=== PATIENT | female | born 1950 | race Caucasian/White ===

== ENCOUNTER → 2020-03-31 10:06 | Outpatient (BNVA) | payer MEDICARE, SELFPAY | PROVIDERS: PCP Physician Assistant; Visit Provider Family Medicine Adult Medicine | DX: M54.16 Radiculopathy, lumbar region (principal); M96.1 Postlaminectomy syndrome, not elsewhere classified; S46.011A Strain of muscle(s) and tendon(s) of the rotator cuff of right shoulder, initial encounter; Z79.891 Long term (current) use of opiate analgesic | CPT/HCPCS: 99212 ==

== ENCOUNTER 2020-04-12 09:23 | Outpatient (REF) | payer MEDICARE, SELFPAY ==
[2020-04-12 10:14] LABS: MANUAL DIFF FLAG NO
[2020-04-12 10:33] LABS: Basophils Percent Auto 0.4 % (0-2); Eosinophils Absolute Auto 0.1 X10*3/uL (0.0-0.4); Eosinophils Percent Auto 0.9 % (0-4); Hematocrit 42.7 % (37-47); Hemoglobin 13.9 g/dl (12.0-16.0); Imm Gran Abs Auto 0.03 X10*3/uL (0.00-0.03); Imm Gran Pct Auto 0.4 % (0.0-0.4); Lymphocytes Absolute Auto 1.8 X10*3/uL (1.2-4.9); Lymphocytes Percent Auto 22.2 % (20-40); Mean Corpuscular HGB Conc 32.6 g/dl (31.0-35.0); Mean Corpuscular Hemoglobin 31.2 pg (27.0-33.0); Mean Platelet Volume 10.5 fL (9.4-12.3); Monocytes Absolute Auto 0.6 X10*3/uL (0.1-1.2); Monocytes Percent Auto 7.5 % (2-11); Neutrophils Absolute Auto 5.6 X10*3/uL (2.0-8.3); Neutrophils Percent Auto 68.6 % (45-73); Platelet Count 365 X10*3/uL (160-400); Red Blood Count 4.45 X10*6/uL (4.20-5.50); Red Cell Distribution Width 13.6 % (11.0-16.0); White Blood Count 8.2 X10*3/uL (4.8-10.8)
[2020-04-12 10:47] LABS: Estimated Average Glucose 123 mg/dL; Hemoglobin A1c % 5.9 %
[2020-04-12 11:11] LABS: Alanine Aminotransferase 14 U/L (0-31); Albumin Level 4.2 g/dL (3.5-5.0); Alkaline Phosphatase 61 U/L (39-117); Anion Gap 14 (12-20); Aspartate Amino Transferase 15 U/L (5-31); Bilirubin Total 0.5 mg/dL (0.0-1.0); Blood Urea Nitrogen 25 mg/dL (9-16); Calcium 8.9 mg/dL (8.4-10.2); Carbon Dioxide 25 mmol/L (22-29); Chloride 107 mmol/L (96-108); Cholesterol 208 mg/dL; Estimated Glomerular Filt Rate 54; Glucose Fasting 104 mg/dL (60-99); HDL Cholesterol 78 mg/dL; LDL Cholesterol Calculated 113 mg/dl; Potassium 4.7 mmol/l (3.3-5.1); Sodium 141 mmol/L (135-145); Total Protein 7.1 g/dL (6.5-8.0); Triglycerides 88 mg/dL
[2020-04-12 11:13] LABS: TSH reflex Free T4 1.17 mIU/mL (0.32-4.0)
[2020-04-12 11:13] LABS: Creatinine Urine 128.05 mg/dL; Microalbum/Creatinine Ratio Ur 10.9 ug/mg cr
== END 2020-04-12 09:24 | disposition home or self-care (01) ==
LOC: HO.LAB 09:23
PROVIDERS: PCP Physician Assistant; Visit Provider Physician Assistant
DX: Z01.812 Encounter for preprocedural laboratory examination (principal); M51.16 Intervertebral disc disorders with radiculopathy, lumbar region; I10 Essential (primary) hypertension
CPT/HCPCS: 36415; 80053; 80061; 82043; 83036; 84443; 85025

== ENCOUNTER 2020-04-27 14:37 | Outpatient (REF) | payer MEDICARE, SELFPAY ==
--- NOTE | 2020-04-27 14:42 | MR_ITS ---
EXAMINATION: MR LUMBAR SPINE WITHOUT AND WITH CONTRAST CLINICAL INFORMATION: Lower back pain. Spinal surgery. Radiculopathy. COMPARISON: Lumbar spine radiographs from 04/18/2019. CT abdomen and pelvis from 02/24/2020. TECHNIQUE: MRI of the lumbar spine was obtained using routine sequences following the administration of 8 mL of Gadavist intravenous contrast. FINDINGS: Straightening of the normal lumbar lordosis. Minimal right convex curvature of the lumbar spine. Degenerative grade 1 anterolistheses of L2 on L3 and L3 on L4. Solid osseous fusion of L4 on L5. Moderate degenerative disc disease from T12-L4. Associated mixed Modic type discogenic endplate changes including Modic type I discogenic edema/enhancement from L1-L4 (worst at L3-L4). No additional suspicious marrow edema. Mild edema within the L3-L4 facets suggestive of degenerative stress reaction. No additional suspicious marrow edema/enhancement. The vertebral body heights are largely maintained. The conus medullaris terminates at the level of L1. The distal spinal cord is normal in appearance. No additional abnormal contrast enhancement. Postsurgical changes of the lower back. Moderate subcutaneous edema within the soft tissues of the lower back from T12-S1. No discrete fluid collection. Otherwise, no significant abnormalities of the paraspinal musculature. Limited evaluation of the intra-abdominal structures without significant abnormalities. The abdominal aorta is of normal contour and caliber. AXIAL SPINAL LEVELS: T12-L1: Moderate diffuse disc bulge. There is moderate bilateral facet joint arthropathy. There is mild bilateral neural foraminal stenosis. There is no overt spinal canal stenosis. L1-L2: Moderate diffuse disc bulge. There is moderate right and mild left facet joint arthropathy. There is moderate right and mild left neural foraminal stenosis. There is narrowing of the right greater than left subarticular zones with no overt spinal canal stenosis centrally. L2-L3: Moderate diffuse disc bulge eccentric to the left exacerbated by uncovering from anterolisthesis. There is severe bilateral facet joint arthropathy. There is mild bilateral neural foraminal stenosis. There is mild spinal canal stenosis. L3-L4: Moderate diffuse disc bulge exacerbated by uncovering from anterolisthesis. There is severe bilateral facet joint arthropathy. There is moderate left and mild right neural foraminal stenosis. There is narrowing of the left greater than right subarticular zones with no overt spinal canal stenosis centrally. L4-L5: Fused at this level. The facets are fused with mild hypertrophic change. There is mild to moderate bilateral neural foraminal stenosis. Posterior decompression. There is no spinal canal stenosis. L5-S1: Shallow diffuse disc bulge. There is severe bilateral facet joint arthropathy. There is moderate right and mild left neural foraminal stenosis. There is narrowing of the right greater than left subarticular zones with no overt spinal canal stenosis centrally. MR/MR lumbar spine wo/w con IMPRESSION: Changes of prior L4-L5 fusion with posterior decompression. 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 There is mild spinal canal stenosis at L2-L3. Otherwise, no overt spinal canal stenosis. Narrowings of the subarticular zones at L1-L2, L3-L4, and L5-S1. Mild to moderate neural foraminal stenosis at all lumbar levels. Mild degenerative stress reactive edema within the L3-L4 facets.
[2020-04-27 14:51] LABS: Blood Urea Nitrogen 19 mg/dL (9-16); Estimated Glomerular Filt Rate > 60
== END 2020-04-27 14:38 | disposition home or self-care (01) ==
LOC: HO.MRI 14:37
PROVIDERS: Visit Provider Physician Assistant
DX: M51.16 Intervertebral disc disorders with radiculopathy, lumbar region (principal); M96.1 Postlaminectomy syndrome, not elsewhere classified
CPT/HCPCS: 72158; 82565; 84520; A9585

== ENCOUNTER → 2020-05-24 14:23 | Outpatient (BNVA) | payer MEDICARE, SELFPAY | PROVIDERS: PCP Physician Assistant; Visit Provider Family Medicine Adult Medicine | DX: M51.16 Intervertebral disc disorders with radiculopathy, lumbar region (principal); M96.1 Postlaminectomy syndrome, not elsewhere classified; S46.011A Strain of muscle(s) and tendon(s) of the rotator cuff of right shoulder, initial encounter | CPT/HCPCS: 99212 ==

== ENCOUNTER → 2020-07-21 13:02 | Outpatient (BNVA) | payer MEDICARE, SELFPAY | PROVIDERS: PCP Physician Assistant; Visit Provider Family Medicine Adult Medicine | DX: M96.1 Postlaminectomy syndrome, not elsewhere classified (principal); S46.011A Strain of muscle(s) and tendon(s) of the rotator cuff of right shoulder, initial encounter; M51.16 Intervertebral disc disorders with radiculopathy, lumbar region | CPT/HCPCS: 99212 ==

== ENCOUNTER → 2020-08-18 14:55 | Outpatient (BNVA) | payer MEDICARE, SELFPAY | PROVIDERS: Visit Provider Family Medicine Adult Medicine | DX: M96.1 Postlaminectomy syndrome, not elsewhere classified (principal); S46.011A Strain of muscle(s) and tendon(s) of the rotator cuff of right shoulder, initial encounter; M51.16 Intervertebral disc disorders with radiculopathy, lumbar region; Z79.899 Other long term (current) drug therapy | CPT/HCPCS: 99212 ==

== ENCOUNTER 2020-11-04 10:04 | Outpatient (REF) | payer MEDICARE, SELFPAY ==
[2020-11-04 11:01] LABS: MANUAL DIFF FLAG NO
[2020-11-04 11:18] LABS: Basophils Percent Auto 0.4 % (0-2); Eosinophils Absolute Auto 0.1 X10*3/uL (0.0-0.4); Eosinophils Percent Auto 1.2 % (0-4); Hematocrit 40.3 % (37-47); Hemoglobin 13.2 g/dl (12.0-16.0); Imm Gran Abs Auto 0.02 X10*3/uL (0.00-0.03); Imm Gran Pct Auto 0.3 % (0.0-0.4); Lymphocytes Absolute Auto 1.6 X10*3/uL (1.2-4.9); Lymphocytes Percent Auto 22.5 % (20-40); Mean Corpuscular HGB Conc 32.8 g/dl (31.0-35.0); Mean Corpuscular Hemoglobin 31.4 pg (27.0-33.0); Mean Corpuscular Volume 95.7 fL (80-98); Mean Platelet Volume 10.1 fL (9.4-12.3); Monocytes Absolute Auto 0.5 X10*3/uL (0.1-1.2); Monocytes Percent Auto 7.3 % (2-11); Neutrophils Absolute Auto 4.9 X10*3/uL (2.0-8.3); Neutrophils Percent Auto 68.3 % (45-73); Platelet Count 313 X10*3/uL (160-400); Red Blood Count 4.21 X10*6/uL (4.20-5.50); Red Cell Distribution Width 13.5 % (11.0-16.0); White Blood Count 7.2 X10*3/uL (4.8-10.8)
[2020-11-04 11:59] LABS: TSH reflex Free T4 1.05 uIU/mL (0.32-4.0)
[2020-11-04 12:09] LABS: Alanine Aminotransferase 12 U/L (0-31); Albumin Level 4.1 g/dL (3.5-5.0); Alkaline Phosphatase 69 U/L (39-117); Anion Gap 14 (12-20); Aspartate Amino Transferase 16 U/L (5-31); Bilirubin Total 0.6 mg/dL (0.0-1.0); Blood Urea Nitrogen 21 mg/dL (9-16); Carbon Dioxide 25 mmol/L (22-29); Chloride 106 mmol/L (96-108); Cholesterol 181 mg/dL; Estimated Glomerular Filt Rate 57; Glucose Fasting 107 mg/dL (60-99); HDL Cholesterol 82 mg/dL; LDL Cholesterol Calculated 89 mg/dl; Potassium 4.5 mmol/L (3.3-5.1); Sodium 140 mmol/L (135-145); Total Protein 6.9 g/dL (6.5-8.0); Triglycerides 53 mg/dL
[2020-11-05 11:41] LABS: CA 27.29 12 U/mL (<38)
== END 2020-11-04 10:05 | disposition home or self-care (01) ==
LOC: HO.LAB 10:04
PROVIDERS: Absent Provider Physician Assistant; PCP Physician Assistant; Visit Provider Internal Medicine Medical Oncology
DX: C50.912 Malignant neoplasm of unspecified site of left female breast (principal); E11.9 Type 2 diabetes mellitus without complications
CPT/HCPCS: 36415; 80053; 80061; 84443; 85025; 86300

== ENCOUNTER 2021-01-24 12:44 | Outpatient (REF) | payer MEDICARE, SELFPAY ==
--- NOTE | ~2021-01-24 | MM_ITS ---
EXAMINATION: MM SCREENING DIGITAL BREAST TOMOSYNTHESIS, BILATERAL CLINICAL INFORMATION: Left breast cancer 2016 (DCIS on open surgical biopsy performed for ALH). Right breast cancer 2004. Due for yearly exam. COMPARISON: Mammography: 01/05/2020, 06/10/2019, 12/08/2018, 12/04/2017 TECHNIQUE: Digital breast tomosynthesis is performed in both the craniocaudal and mediolateral oblique views along with computer-aided detection (CAD). Synthesized 2D images are generated from the tomosynthesis. Additional left MLO view is provided. FINDINGS: There are scattered areas of fibroglandular density (ACR BI-RADS breast composition Category b). There are post lumpectomy changes on the right with mild reduced breast size and stable scarring similar to previous studies. Neither breast shows interval mass or architectural abnormality. Parenchymal pattern is similar to prior studies. There is biopsy clip marker again seen central 12:00 right breast. There are scattered bilateral round and coarse and vascular calcifications again seen. No significant changes. MM/MM tomosynthesis screening BI IMPRESSION: No significant changes from prior exams. ASSESSMENT: BI-RADS 2: Benign RECOMMENDATION: Routine annual mammography screening. This patient's information was entered into a reminder system with a target due date for their next mammogram.
== END 2021-01-24 12:45 | disposition home or self-care (01) ==
LOC: HO.MAMMO 12:44
PROVIDERS: Visit Provider Internal Medicine Medical Oncology
DX: Z12.31 Encounter for screening mammogram for malignant neoplasm of breast (principal)
CPT/HCPCS: 77063; 77067

== ENCOUNTER 2021-05-24 10:57 | Outpatient (REF) | payer MEDICARE, SELFPAY | END 2021-05-24 10:58 | disposition home or self-care (01) | LOC: HO.LAB 10:57 | PROVIDERS: Visit Provider Physician Assistant | DX: Z13.89 Encounter for screening for other disorder (principal) ==

== ENCOUNTER 2021-05-29 10:40 | Outpatient (REF) | payer MEDICARE, SELFPAY ==
[2021-05-29 10:55] LABS: MANUAL DIFF FLAG NO
[2021-05-29 11:03] LABS: Basophils Percent Auto 0.2 % (0-2); Eosinophils Absolute Auto 0.1 X10*3/uL (0.0-0.4); Eosinophils Percent Auto 1.1 % (0-4); Hematocrit 40.7 % (37.0-47.0); Hemoglobin 13.5 g/dl (12.0-16.0); Imm Gran Abs Auto 0.02 X10*3/uL (0.00-0.03); Imm Gran Pct Auto 0.2 % (0.0-0.4); Lymphocytes Absolute Auto 1.9 X10*3/uL (1.2-4.9); Lymphocytes Percent Auto 22.5 % (20-40); Mean Corpuscular HGB Conc 33.2 g/dl (31.0-35.0); Mean Corpuscular Hemoglobin 31.5 pg (27.0-33.0); Mean Corpuscular Volume 95.1 fL (80.0-98.0); Monocytes Absolute Auto 0.5 X10*3/uL (0.1-1.2); Monocytes Percent Auto 5.7 % (2-11); Neutrophils Absolute Auto 5.9 x10*3/uL (2.0-8.3); Neutrophils Percent Auto 70.3 % (45-73); Platelet Count 324 X10*3/uL (160-400); Red Blood Count 4.28 X10*6/uL (4.20-5.50); Red Cell Distribution Width 12.8 % (11.0-16.0); White Blood Count 8.5 X10*3/uL (4.8-10.8)
[2021-05-29 11:14] LABS: Estimated Average Glucose 126 mg/dL; Hemoglobin A1C 149.5948 umol/L
[2021-05-29 11:27] LABS: Alanine Aminotransferase 16 U/L (0-31); Alkaline Phosphatase 68 U/L (39-117); Anion Gap 12 (12-20); Aspartate Amino Transferase 16 U/L (5-31); Bilirubin Total 0.4 mg/dL (0.0-1.0); Blood Urea Nitrogen 18 mg/dL (9-16); Calcium 9.5 mg/dL (8.4-10.2); Carbon Dioxide 27 mmol/L (22-29); Chloride 107 mmol/L (96-108); Cholesterol 167 mg/dL; Estimated Glomerular Filt Rate 49; Glucose Fasting 103 mg/dL (60-99); HDL Cholesterol 54 mg/dL; LDL Cholesterol Calculated 93 mg/dl; Potassium 4.2 mmol/L (3.3-5.1); Sodium 142 mmol/L (135-145); Total Protein 7.2 g/dL (6.5-8.0); Triglycerides 100 mg/dL
[2021-05-29 11:51] LABS: TSH reflex Free T4 1.62 uIU/mL (0.32-4.0)
[2021-05-29 13:22] LABS: Amphetamine Screen Urine Not Detected (Not Detect); Barbiturates, Urine Not Detected (Not Detect); Benzodiazepines Screen Urine Not Detected (Not Detect); Cannabinoid Screen Urine Not Detected (Not Detect); Cocaine Screen Urine Not Detected (Not Detect); Creatinine Urine 115.76 mg/dL; Fentanyl, urine POSITIVE (Not Detect); Microalbum/Creatinine Ratio Ur 6.9 ug/mg cr; Opiate Screen Urine POSITIVE (Not Detect); Phencyclidine Screen Urine Not Detected (Not Detect)
[2021-05-30 09:27] LABS: CA 27.29 12 U/mL (<38)
== END 2021-05-29 10:41 | disposition home or self-care (01) ==
LOC: HO.LAB 10:40
PROVIDERS: Absent Provider Internal Medicine Medical Oncology; PCP Physician Assistant; Visit Provider Physician Assistant
DX: F11.90 Opioid use, unspecified, uncomplicated (principal); C50.411 Malignant neoplasm of upper-outer quadrant of right female breast; I10 Essential (primary) hypertension; E11.9 Type 2 diabetes mellitus without complications
CPT/HCPCS: 36415; 80053; 80061; 80307; 80346; 80364; 80365; 82043; 83036; 84443; 85025; 86300

== ENCOUNTER 2021-08-21 10:52 | Emergency (ER) | payer OTHER, SELFPAY ==
--- NOTE | ~2021-08-21 | CT_ITS ---
EXAMINATION: CT LUMBAR SPINE WITHOUT CONTRAST CLINICAL INFORMATION: Fall. Worsening back pain. COMPARISON: Previous lumbar spine MRI April 2020 and x-ray March 2019. TECHNIQUE: Axial images through the lumbar spine without contrast. Sagittal and coronal reconstructions on the technologist workstation were performed. This CT examination was performed using dose optimization techniques as appropriate, variously including the following: *Automated exposure control *Adjustment of mA and/or kV according to patient size (this includes techniques or standardized protocols for targeted exams where dose is matched to indication/reason for exam; i.e. extremities or head) *Use of iterative reconstruction technique DLP; 574 mGy-cm FINDINGS: There is minimal 2 mm anterior subluxation of L2 with respect to L3 and L3 with respect to L4. Bone alignment is otherwise normal. No fracture or dislocation is seen. There is bony ankylosis at L4-L5. There is multilevel degenerative disc disease from T12-L1 to L3-L4. There is discogenic sclerosis at L3-L4. No fracture or dislocation seen. Spinal levels: T12-L1: Bilateral disc bulge. No disc herniation. Mild facet arthritis. L1-L2: Diffuse disc bulge. No disc herniation. Bilateral facet arthritis. L2-L3: Diffuse disc bulge. No disc herniation. Moderate secondary spinal stenosis due to disc bulge, short pedicles and facet arthritis. L3-L4: Bilateral disc bulge. Moderate secondary spinal stenosis due to disc bulge, short pedicles and facet arthritis L4-L5: There are postsurgical changes. Fusion at L4-L5. No disc herniation or spinal stenosis. L5-S1: No disc bulge or herniation. Mild facet arthritis. There is a 2 cm low-attenuation lesion in the lower pole right kidney suggestive of a cyst. There is a 1 cm fatty lesion in the mid left kidney suggestive of angiomyolipoma. There is diverticulosis of the colon. CT/CT lumbar spine wo con IMPRESSION: No fracture or dislocation. Postsurgical changes with fusion at L4-L5. Multilevel degenerative disc disease and secondary spinal stenosis greatest at L2-L3 and L3-L4. No disc herniation is seen.
[2021-08-21 11:00] VITALS: BP 160/87; PULSE 78; RESP 14; O2SAT 100
[2021-08-21 11:05] VITALS: BP 141/97; BP 160/87; PULSE 77; PULSE 80; RESP 16; TEMP 36.7; O2SAT 97; O2SAT 99; BMI 37.3
--- NOTE | 2021-08-21 11:34 | ED.BACK ---
HPI - Back Pain/Injury General Chief Complaint: Back Pain/Injury Stated Complaint: CHRONIC BACK PAIN Time Seen by Provider: 08/21/21 10:56 Source: patient Mode of arrival: ambulatory Limitations: language barrier ( [place]-speaking, offered senior medical technologist and declined prefers to use daughter) History of Present Illness HPI Narrative: Patient is a 71-year-old female with past medical history significant for lumbar radiculopathy, mild spinal stenosis indicated on lumbar MRI in 2019. She has a long history of chronic back pain for which she has previously been followed by pain management clinic, however was discharged from their service due to no show. She is currently having her pain managed by her primary care provider for which she is prescribed oxycodone 5 mg twice daily, gabapentin twice daily, Flexeril 10 mg 3 times daily. She reports fall down 3 stairs 5 days ago where she landed on 1 of her size, but is unable to recall which. She reports over the past 3 days her pain has become significantly more severe, she is having difficulty getting out of bed to stand/ pivot on to commode. At baseline she reports numbness and tingling to the bilateral legs, and urinary continence but these are chronic, having been present for at least 4 years. At this time, she reports that the only difference from her baseline chronic pain as the severity, and no new associated symptoms. Denies fevers, chills, burning with micturition, urinary frequency, urgency, hesitancy, bowel dysfunction. Denies any recent surgical procedures, personal history of cancer, or IV drug usage. Patient reports that she last took her oxycodone and Flexeril yesterday evening. Related Data Home Medications Medication Instructions Recorded Confirmed albuterol sulfate 2.5 mg INHALATION Q6H PRN 03/28/20 07/25/21 dicyclomine 10 mg capsule 10 - 20 mg PO Q6H PRN 05/24/21 07/25/21 loperamide 2 mg capsule 2 - 4 mg PO QID PRN 05/24/21 07/25/21 Previous Rx's Medication Instructions Recorded blood-glucose meter (FreeStyle #1 ea 05/25/20 Lite Meter) blood sugar diagnostic (FreeStyle #100 ea 10/26/20 Test) metoprolol tartrate 50 mg tablet 50 mg PO BID #180 tab 10/26/20 amitriptyline 10 mg tablet 10 mg PO BEDTIME #90 tab 04/10/21 amlodipine 5 mg tablet 5 mg PO DAILY #90 tab 04/10/21 gabapentin 800 mg tablet 800 mg PO BID 30 Days #60 tab 05/24/21 oxycodone 5 mg tablet 5 mg PO Q12H 28 Days #56 tab 07/11/21 atorvastatin 20 mg tablet 20 mg PO DAILY #90 tab 07/18/21 trazodone 100 mg tablet 300 mg PO BEDTIME 90 Days #270 tab 07/18/21 blood sugar diagnostic (FreeStyle #100 ea 07/25/21 Lite Strips) citalopram 20 mg tablet 20 mg PO DAILY #30 tab 07/25/21 cyclobenzaprine 10 mg tablet 10 mg PO TID PRN 15 Days #45 tab 07/25/21 ibuprofen 800 mg tablet 800 mg PO Q8H #90 tab 07/25/21 lancets 28 gauge (FreeStyle #100 ea 07/25/21 Lancets) omeprazole 20 mg capsule,delayed 20 mg PO DAILY 30 Days #30 cap 08/05/21 release Allergies Allergy/AdvReac Type Severity Reaction Status Date / Time No Known Allergies Allergy Verified 07/25/21 13:26 [No Known Allergies*] Review of Systems Review of Systems: Constitutional: No weight loss, fever, chills, weakness or fatigue. HEENT: No visual loss, blurred vision, double vision. No hearing loss, sneezing, congestion, runny nose or sore throat. Skin: No rash or itching. Cardiovascular: No chest pain, chest pressure or chest discomfort. No palpitations or pedal edema. Respiratory: No shortness of breath, cough or sputum production. Gastrointestinal: No anorexia, nausea, vomiting or diarrhea. No abdominal pain or blood in stool. Genitourinary: No burning micturition. No urinary frequency or incontinence. Neurologic: No headache, dizziness, syncope, unilateral weakness, ataxia. Musculoskeletal: + Back pain as noted in HPI. No joint pain or stiffness. Hematologic: No bleeding or bruising. Lymphatics: No enlarged lymph nodes. Psychiatric:No depression or anxiety. Endocrine: No reports of sweating. No cold or heat intolerance. No polyuria or polydipsia. Yes all other systems are reviewed and are negative PMFSH Past Medical History Attestation statement: The following information was validated with the patient. Source: old records reviewed Medical History Traumatic complete tear of right rotator cuff Surgical History History of colonoscopy History of lumbar fusion History of lumpectomy of left breast History of surgery S/P [id number] (total abdominal hysterectomy and bilateral salpingo-oophorectomy) Family History Family History Father No problems noted. Mother Heart disease Hypertension Colon cancer Maternal Grandmother Esophageal cancer Daughter Breast cancer Brother Colon cancer Sister Breast cancer Son Heart disease Cancer Family/Other Cancer Heart disease Social History Social History Housing: Apartment Alcohol intake: current Alcohol intake frequency: holidays/special occasions only Patient Tobacco Use Status: Never used Tobacco e-Cigarette/Vaping Use: Never Used Advance Directives: Yes Advance Directives Information Provided: No Advance Directives on File: No service: No Current occupational status: retired Physical Exam Vital Signs: Vital Signs: Last Vital Signs Temp 98.8 F 08/21/21 14:43 Pulse 74 08/21/21 14:43 Resp 14 08/21/21 14:43 BP 141/73 H 08/21/21 14:43 Pulse Ox 99 08/21/21 11:05 BMI result Body Mass Index 37.3 Vital signs have been reviewed as normal and appeared to be correct. Blood pressure elevated 160/87.? Heart rate normal.? Respiration rate normal. Temperature normal.? Oxygen saturation normal. Appearance: Alert.?Oriented to person, place and time. No acute distress.?Normal affect. Eyes: Pupils equal, round and reactive to light.? ENT: Pharynx normal.?? Neck: Normal inspection.? Neck supple.?? CVS: Heart sounds normal. Normal heart rate and rhythm.? Pulses normal; bilateral radial pulses 2+, bilateral posterior tibial/dorsalis pedis pulses 2+.? Respiratory: No respiratory distress.? Lung sounds clear to auscultation bilaterally?? Abdomen: Soft and non-tender. Normoactive bowel sounds. No pulsatile mass.?? Skin: Skin warm and dry.? Normal skin color.? Normal skin turgor.?? Extremities: No lower extremity edema.? No calf ttp? Back: + Significant paraspinal muscular tenderness from lumbar region to coccyx. No CVA tenderness. No midline spinal tenderness, step-off's, or deformity. Decreased AROM to bilateral lower extremities. Straight leg test positive on right; Straight leg test positive on left. No rashes, lesions, areas of induration or fluctuance, or signs of infection noted. Neuro: Normal rectal tone, sensation is intact. Moves all extremities spontaneously. 2/5 strength in hip extension/flexion, abduction, adduction. Sensation to light touch intact bilaterally. Patellar and Achilles reflex 2+ bilaterally. No focal neuro deficits. Reports unable to ambulate at time of exam due to level of pain Course Course Course Narrative: Patient is a 71-year-old female with acute on chronic lumbar back pain due to lumbar radiculopathy and mild stenosis at L2-L3 last noted on lumbar MRI in 2019. she was previously followed by pain management and was receiving high doses of oxycodone up to 150 mg daily and sentinel, they attempted to wean her off the medication with Suboxone but she is unable to tolerate the Suboxone. Ultimately she was discharged from Pain Management due to no show. Currently her pain is being managed from her primary care provider. Her daughter reports that she is awaiting insurance authorization for repeat MRI ordered. Given her recent fall and report of significant increase in pain after fall will obtain CT of the lumbar spine. As she has not yet taken her medications today, I will order her prescribed home dose of oxycodone 5 mg and Flexeril 10 mg. Will obtain basic labs and urinalysis to exclude infection. Disposition will be pending results. Reevaluation(s) Reevaluation #1: CT of the lumbar spine reveals no fracture or dislocation, multilevel degenerative disc disease and spinal stenosis at L2-L3 and L3-L4, no disc herniation. Pain is most consistent with Chronic lumbar radiculopathy pain. On neurological exam there are no deficits. Not consistent with spinal fracture, spinal infection, epidural abscess, AAA, epidural abscess, or dissection. No high risk past medical history including incontinence, fever, immunosuppression, recent surgery or lumbar puncture, coagulopathy, significant trauma, recent unintentional weight loss, pulsatile mass, history of cancer, history of TB, history of IV drug use that would warrant emergent MRI. Not consistent with pelvic infection, appendicitis, diverticulitis. Urinalysis is still pending. Time: 15:15 Reevaluation #2: Urinalysis without concern for infection, not consistent with pyelonephritis, urinary tract infection, renal calculi, pelvic infection, appendicitis, diverticulitis. patient able to stand from bed to commode with assistance from daughter. patient will be discharged home, discussed these findings with patient and patient's daughter as brine supervisor by patient's request, discussed reasons to return back to the emergency department, all questions answered, advised follow-up with PCP within 5 days, patient agrees with plan of care. Time: 16:36 MDM - Back Pain/Injury Lab Data Result diagrams: 08/21/21 11:58 08/21/21 11:58 Labs: Lab Results 08/21/21 08/21/21 08/21/21 Range/Units 11:58 11:58 16:02 WBC 8.2 (4.8-10.8) X10*3/uL RBC 4.14 L (4.20-5.50) X10*6/uL Hgb 12.6 (12.0-16.0) g/dl Hct 38.7 (37.0-47.0) % MCV 93.5 (80.0-98.0) fL MCH 30.4 (27.0-33.0) pg MCHC 32.6 (31.0-35.0) g/dl RDW 13.7 (11.0-16.0) % Plt Count 321 (160-400) X10*3/uL MPV 9.9 (9.4-12.3) fL Immature Gran % (Auto) 0.2 (0.0-0.4) % Neut % (Auto) 73.8 H (45-73) % Lymph % (Auto) 17.6 L (20-40) % [place] % (Auto) 6.4 (2-11) % Eos % (Auto) 1.8 (0-4) % Baso % (Auto) 0.2 (0-2) % Lymph # (Auto) 1.4 (1.2-4.9) X10*3/uL [place] # (Auto) 0.5 (0.1-1.2) X10*3/uL Eos # (Auto) 0.2 (0.0-0.4) X10*3/uL Baso # (Auto) 0.0 (0.0-0.2) X10*3/uL Abs Immat Gran (auto) 0.02 (0.00-0.03) X10*3/uL Absolute Neuts (auto) 6.0 (2.0-8.3) x10*3/uL Absolute Nucleated RBC 0.000 (0.0-0.012) X10*3/uL Nucleated RBC % (auto) 0.0 (0.0-0.2) /100WBC Sodium 140 (135-145) mmol/L Potassium 4.7 (3.3-5.1) mmol/L Chloride 106 (96-108) mmol/L Carbon Dioxide 28 (22-29) mmol/L Anion Gap 11 L (12-20) BUN 21 H (9-16) mg/dL Creatinine 0.88 (0.5-1.4) mg/dL Estim Creat Clear Calc 51.2 Estimated GFR > 60 Random Glucose 126 H (60-115) mg/dL Calcium 9.6 (8.4-10.2) mg/dL Urine Color YELLOW Urine Appearance CLEAR Urine pH 5.5 (5.0-8.0) Ur Specific [place] 1.020 (1.005-1.025) Urine Protein NEG (NEG-TRACE) MG/DL Urine Glucose (UA) NEG (NEG) MG/DL Urine Ketones NEG (NEG) MG/DL Urine Blood NEG (NEG) Urine Nitrite NEG (NEG) Ur Leukocyte Esterase TRACE H (NEG) Urine RBC 0 (0) /HPF Urine WBC 1-4 (0-4) /HPF Urine WBC Clumps NOTED Ur Squamous Epith Cells 1+ /LPF Urine Bacteria TRACE /LPF Urine Mucus TRACE /LPF Discharge Plan Discharge Clinical Impression: Failed back syndrome, Lumbar disc disease with radiculopathy Patient Disposition: Home, Self-Care Instructions: Acute Low Back Pain (ED), Lower Back Exercises (ED) Additional Instructions: You were evaluated in the emergency department for your lower back pain. Your pain is most consistent with your chronic back pain. You should engage in regular exercise and gentle stretching for increased motion to the lower back. You were offered a physical therapy evaluation but declined. You can apply a heating pad or ice pack for 15 minutes every 2-3 hours as needed. Recommend follow-up with your primary care provider in 1-3 days. You can use Tylenol or ibuprofen in addition to your pain medications as needed for pain. Please feel free to return to the emergency department for any new or worsening symptoms or concerns. Prescriptions: No Action (DME) blood-glucose meter [FreeStyle Lite Meter] Kit See Rx Instructions .ROUTE .MEDSUPPLY Qty: 1 0RF Rx Instructions: As directed amlodipine 5 mg tablet 5 mg PO DAILY Qty: 90 1RF amitriptyline 10 mg tablet 10 mg PO BEDTIME Qty: 90 1RF oxycodone 5 mg tablet 5 mg PO Q12H 28 Days Qty: 56 0RF atorvastatin 20 mg tablet 20 mg PO DAILY Qty: 90 2RF trazodone 100 mg tablet 300 mg PO BEDTIME 90 Days Qty: 270 2RF omeprazole 20 mg capsule,delayed release(DR/EC) 20 mg PO DAILY 30 Days Qty: 30 6RF albuterol sulfate 2.5 mg /3 mL (0.083 %) solution for nebulization 2.5 mg inhalation Q6H PRN (Reason: shortness of breath or wheezing) 0RF dicyclomine 10 mg capsule 10 - 20 mg PO Q6H PRN (Reason: cramps) 0RF loperamide 2 mg capsule 2 - 4 mg PO QID PRN0RF gabapentin 800 mg tablet 800 mg PO BID 30 Days Qty: 60 1RF metoprolol tartrate 50 mg tablet 50 mg PO BID Qty: 180 2RF (DME) FreeStyle Test Strip See Rx Instructions .ROUTE .MEDSUPPLY Qty: 100 2RF Rx Instructions: As directed citalopram 20 mg tablet 20 mg PO DAILY Qty: 30 3RF cyclobenzaprine 10 mg tablet 10 mg PO TID PRN (Reason: muscle spasm) 15 Days Qty: 45 0RF ibuprofen 800 mg tablet 800 mg PO Q8H Qty: 90 1RF (DME) lancets [FreeStyle Lancets] 28 gauge misc See Rx Instructions .ROUTE .MEDSUPPLY Qty: 100 3RF Rx Instructions: As directed (DME) FreeStyle Lite Strips Strip See Rx Instructions .ROUTE .MEDSUPPLY Qty: 100 3RF Rx Instructions: As directed Interventions: ED Discharge Assessment Last Done: 08/21/21 17:21 Print Language: [place]
[2021-08-21] MEDS: Cyclobenzaprine HCl 10 MG TABLET PO (11:36)
[2021-08-21] MEDS: oxyCODONE HCl Immed Release 5 MG TABLET PO (11:38)
[2021-08-21 12:01] LABS: MANUAL DIFF FLAG NO
[2021-08-21 12:05] LABS: Basophils Percent Auto 0.2 % (0-2); Eosinophils Absolute Auto 0.2 X10*3/uL (0.0-0.4); Eosinophils Percent Auto 1.8 % (0-4); Hematocrit 38.7 % (37.0-47.0); Hemoglobin 12.6 g/dl (12.0-16.0); Imm Gran Abs Auto 0.02 X10*3/uL (0.00-0.03); Imm Gran Pct Auto 0.2 % (0.0-0.4); Lymphocytes Absolute Auto 1.4 X10*3/uL (1.2-4.9); Lymphocytes Percent Auto 17.6 % (20-40); Mean Corpuscular HGB Conc 32.6 g/dl (31.0-35.0); Mean Corpuscular Hemoglobin 30.4 pg (27.0-33.0); Mean Corpuscular Volume 93.5 fL (80.0-98.0); Mean Platelet Volume 9.9 fL (9.4-12.3); Monocytes Absolute Auto 0.5 X10*3/uL (0.1-1.2); Monocytes Percent Auto 6.4 % (2-11); Neutrophils Percent Auto 73.8 % (45-73); Platelet Count 321 X10*3/uL (160-400); Red Blood Count 4.14 X10*6/uL (4.20-5.50); Red Cell Distribution Width 13.7 % (11.0-16.0); White Blood Count 8.2 X10*3/uL (4.8-10.8)
[2021-08-21 12:18] LABS: Anion Gap 11 (12-20); Blood Urea Nitrogen 21 mg/dL (9-16); Calcium 9.6 mg/dL (8.4-10.2); Carbon Dioxide 28 mmol/L (22-29); Chloride 106 mmol/L (96-108); Creatinine Clr Calc Pharmacy 51.2; Estimated Glomerular Filt Rate > 60; Glucose Random 126 mg/dL (60-115); Potassium 4.7 mmol/L (3.3-5.1); Sodium 140 mmol/L (135-145)
[2021-08-21 14:43] VITALS: BP 141/73; PULSE 74; RESP 14; TEMP 37.1
[2021-08-21 16:17] LABS: Appearance Urine CLEAR; Color Urine YELLOW; Glucose Urine UA NEG (NEG); Leukocyte Esterase Urine TRACE (NEG); Nitrite Urine NEG (NEG); PH 5.5 (5.0-8.0); UACC Culture Trigger YES; Urine Blood NEG (NEG); Urine Ketones NEG (NEG); Urine Protein NEG (NEG-TRACE)
[2021-08-21 16:31] LABS: Bacteria Urine TRACE /LPF; Mucus Urine TRACE /LPF; RBC Urine 0 /HPF (0); Squamous Epithelial Cell Urine 1+ /LPF; WBC Clumps Urine NOTED
== END 2021-08-21 17:29 | disposition home or self-care (01) ==
PROVIDERS: Nurse Practitioner Family; Emergency Provider Emergency Medicine
DX: M96.1 Postlaminectomy syndrome, not elsewhere classified (principal); M54.16 Radiculopathy, lumbar region; E11.9 Type 2 diabetes mellitus without complications; I10 Essential (primary) hypertension
CPT/HCPCS: 36415; 72131; 80048; 81001; 85025; 87086; 99284

== ENCOUNTER 2021-09-01 10:09 | Outpatient (REF) | payer OTHER, SELFPAY ==
--- NOTE | ~2021-09-01 | MR_ITS ---
MR CERVICAL SPINE WITHOUT CONTRAST MR LUMBAR SPINE WITH AND WITHOUT CONTRAST CLINICAL INFORMATION: Intervertebral disc disorder with radiculopathy. Disease of spinal cord. COMPARISON: Lumbar spine MRI April 27, 2020. Lumbar spine CT August 21, 2021. TECHNIQUE: Multiplanar multisequence MR imaging of the cervical spine obtained without IV contrast. Additionally, a noncontrast and postcontrast MRI of the lumbar spine is obtained following the administration of 7 mL of Gadavist intravenous contrast without complication. FINDINGS: CERVICAL SPINE MRI: Straightening of the cervical lordosis. Mild anterior subluxation of C3 on C4 and C4 on C5 as well as C6 on C7. Vertebral body heights are maintained. Mild disc volume loss at C5-C6. There is no bone marrow edema. There are no acute fractures. No cord signal changes. The cervical arterial flow voids are maintained. No significant extraspinal soft tissue findings. There is a partially empty sella. Partially imaged temporal lobe volume loss bilaterally. C2-C3: Uncovertebral joint hypertrophy and hypertrophic facet arthropathy result in moderate to severe left-sided foraminal stenosis and mild right foraminal encroachment. No central canal stenosis. C3-C4: Mild anterior subluxation. Disc osteophyte without central canal stenosis. Advanced uncovertebral joint hypertrophy and hypertrophic facet arthropathy result in severe lateral foraminal stenosis. C4-C5: Mild anterior subluxation. Uncovertebral joint spurring and advanced facet arthropathy result in severe bilateral foraminal stenosis. C5-C6: Mild anterior subluxation. Disc osteophyte mildly narrows the central canal. Uncovertebral joint spurring and advanced facet arthropathy result in moderate to severe bilateral foraminal stenosis. C6-C7: Disc osteophyte mildly narrows the central canal. Uncovertebral joint spurring and advanced facet arthropathy result in mild to moderate bilateral foraminal stenosis. C7-T1: Shallow central disc protrusion mildly narrows the central canal. Uncovertebral joint spurring and facet arthropathy result in mild bilateral foraminal encroachment. LUMBAR SPINE MRI: There are 5 nonrib-bearing lumbar-type vertebral bodies. Stable grade 1 anterolisthesis of L3 on L4. Stable grade 1 anterolisthesis of L2 on L3. Modic type I and Modic type III endplate signal changes at L3-L4. Modic type I endplate signal changes at L1-L2. No additional bone marrow edema. No acute fractures. Multilevel endplate osteophytes. Left iliac bone graft donor site. No pathologic enhancement along the cauda equina nerve roots accounting for artifact. There is a right renal cyst. Axial T2 imaging is limited by artifact. At T10-T11, T11-T12, and T12-L1 there are annular disc bulges that mildly narrow the central canal at these levels, unchanged. L1-L2: There is a new inferiorly migrating right paracentral disc extrusion that compresses the traversing right L2 nerve root within the right L2 lateral recess. Right lateral disc osteophyte and facet arthropathy result in similar moderate right-sided foraminal stenosis with mass effect on the exiting right L1 nerve root. L2-L3: Grade 1 anterolisthesis. Severe bilateral facet arthropathy and ligamentum flavum thickening. Mild central canal stenosis. Mild bilateral foraminal encroachment. L3-L4: Grade 1 anterolisthesis. Severe bilateral facet arthropathy and ligamentum flavum thickening. Progressive left lateral disc protrusion that is in part disc osteophyte resulting in worsening moderate to severe left foraminal stenosis and worsening compression of the foraminal and extraforaminal segments of the exiting left L3 nerve root. Stable mild central canal stenosis and mild to moderate right foraminal stenosis. L4-L5: There are laminectomy changes. Osteophytic ridging and facet arthropathy result in stable mild bilateral foraminal encroachment. No central canal stenosis. L5-S1: Diffuse annular disc bulge and severe bilateral facet arthropathy and ligamentum flavum thickening. Left hemilaminectomy changes. Central canal remains patent. Stable bilateral foraminal stenosis with mass effect on the exiting L5 nerve roots bilaterally. MR/MR lumbar spine wo/w con IMPRESSION: - There is multilevel cervical spondylosis with spondylitic changes resulting in varying degrees of moderate to severe foraminal stenosis bilaterally throughout the cervical spine as described. There is no severe central canal stenosis within the cervical spine. Partially imaged empty sella and partially imaged temporal lobe volume loss bilaterally. - At L1-L2, there is a new inferiorly migrating right paracentral disc extrusion that compresses the traversing right L2 nerve root within the right L2 lateral recess. Spondylitic changes at L1-L2 result in moderate right-sided foraminal stenosis and mass effect on the exiting right L1 nerve root. - At L2-L3, there is stable grade 1 anterolisthesis in the setting of severe bilateral facet arthropathy resulting in mild central canal stenosis. - At L3-L4, there is stable grade 1 anterolisthesis and there is a progressive left lateral disc protrusion resulting in worsening moderate to severe left foraminal stenosis and worsening compression of the foraminal and extraforaminal segments of the exiting left L3 nerve root. - At L4-L5, there are laminectomy changes and the central canal and neural foramen are widely patent. - At L5-S1, there are left hemilaminectomy changes and spondylitic changes result in stable bilateral foraminal stenosis with mass effect on the exiting L5 nerve roots bilaterally. Congenitally conjoined left L5-S1 nerve root.
[2021-09-01 10:02] LABS: Hematocrit 38.7 % (37.0-47.0); Hemoglobin 12.6 g/dl (12.0-16.0); Mean Corpuscular HGB Conc 32.6 g/dl (31.0-35.0); Mean Corpuscular Hemoglobin 30.6 pg (27.0-33.0); Mean Corpuscular Volume 93.9 fL (80.0-98.0); Mean Platelet Volume 9.9 fL (9.4-12.3); Platelet Count 372 X10*3/uL (160-400); Red Blood Count 4.12 X10*6/uL (4.20-5.50); Red Cell Distribution Width 13.7 % (11.0-16.0); White Blood Count 8.7 X10*3/uL (4.8-10.8)
[2021-09-01 10:11] LABS: Anion Gap 12 (12-20); Blood Urea Nitrogen 18 mg/dL (9-16); Calcium 8.9 mg/dL (8.4-10.2); Carbon Dioxide 27 mmol/L (22-29); Chloride 104 mmol/L (96-108); Estimated Glomerular Filt Rate > 60; Glucose Random 100 mg/dL (60-115); Potassium 4.3 mmol/L (3.3-5.1); Sodium 139 mmol/L (135-145)
== END 2021-09-01 10:10 | disposition home or self-care (01) ==
LOC: HO.MRI 10:09
PROVIDERS: Visit Provider Physician Assistant
DX: Z01.812 Encounter for preprocedural laboratory examination (principal); M96.1 Postlaminectomy syndrome, not elsewhere classified; M54.12 Radiculopathy, cervical region; G95.9 Disease of spinal cord, unspecified; E11.9 Type 2 diabetes mellitus without complications; I10 Essential (primary) hypertension
CPT/HCPCS: 36415; 72141; 72158; 80048; 85027; A9585

== ENCOUNTER 2021-09-25 15:30 | Emergency (ER) | payer OTHER, SELFPAY ==
--- NOTE | 2021-09-25 15:41 | ECG_ITS ---
Test Reason : high bp Blood Pressure : / mmHG Vent. Rate : 065 BPM Atrial Rate : 065 BPM P-R Int : 122 ms QRS Dur : 076 ms QT Int : 422 ms P-R-T Axes : 048 -34 009 degrees QTc Int : 438 ms Normal sinus rhythm Left axis deviation Minimal voltage criteria for LVH, may be normal variant ( R in aVL ) Abnormal ECG When compared with ECG of 19-APR-2019 23:59, No significant change was found Referred By: Generic ED Physician Electronically Signed By:RAJI ULLOA MD
[2021-09-25 16:18] VITALS: BP 169/77; PULSE 66; RESP 16; TEMP 36.3; O2SAT 97; BMI 38.9
[2021-09-25 16:23] LABS: Basophils Percent Auto 0.1 % (0-2); Hematocrit 40.2 % (37.0-47.0); Hemoglobin 13.2 g/dl (12.0-16.0); Imm Gran Abs Auto 0.06 X10*3/uL (0.00-0.03); Imm Gran Pct Auto 0.5 % (0.0-0.4); Lymphocytes Absolute Auto 0.6 X10*3/uL (1.2-4.9); Lymphocytes Percent Auto 5.2 % (20-40); MANUAL DIFF FLAG SCAN; Mean Corpuscular HGB Conc 32.8 g/dl (31.0-35.0); Mean Corpuscular Hemoglobin 30.6 pg (27.0-33.0); Mean Corpuscular Volume 93.1 fL (80.0-98.0); Monocytes Absolute Auto 0.3 X10*3/uL (0.1-1.2); Monocytes Percent Auto 2.8 % (2-11); Neutrophils Absolute Auto 10.5 x10*3/uL (2.0-8.3); Neutrophils Percent Auto 91.4 % (45-73); Platelet Count 366 X10*3/uL (160-400); Red Blood Count 4.32 X10*6/uL (4.20-5.50); Red Cell Distribution Width 13.8 % (11.0-16.0); SCAN SMEAR FLAG 1; White Blood Count 11.5 X10*3/uL (4.8-10.8)
[2021-09-25 16:41] LABS: Anion Gap 16 (12-20); Blood Urea Nitrogen 32 mg/dL (9-16); Calcium 9.6 mg/dL (8.4-10.2); Carbon Dioxide 22 mmol/L (22-29); Chloride 101 mmol/L (96-108); Creatinine Clr Calc Pharmacy 38.3; Estimated Glomerular Filt Rate 46; Glucose Random 236 mg/dL (60-115); Potassium 4.6 mmol/L (3.3-5.1); Sodium 134 mmol/L (135-145)
[2021-09-25 16:49] LABS: SLIDE REVIEW VERIFIED
== END 2021-09-25 20:33 | disposition left against medical advice (07) ==
LOC: HO.ED 20:25
PROVIDERS: Emergency Provider Emergency Medicine; PCP Physician Assistant
DX: R07.89 Other chest pain (principal); E86.0 Dehydration; R03.0 Elevated blood-pressure reading, without diagnosis of hypertension; R51.9 Headache, unspecified; Z79.899 Other long term (current) drug therapy
CPT/HCPCS: 36415; 80048; 85025; 93005; 99282; 99283

== ENCOUNTER 2021-09-26 08:08 | Observation (INO) | payer OTHER, SELFPAY ==
--- NOTE | 2021-09-26 | ECG_ITS ---
Test Reason : cp Blood Pressure : / mmHG Vent. Rate : 065 BPM Atrial Rate : 065 BPM P-R Int : 112 ms QRS Dur : 080 ms QT Int : 440 ms P-R-T Axes : 051 -36 016 degrees QTc Int : 457 ms Sinus rhythm with Premature supraventricular complexes Left axis deviation Minimal voltage criteria for LVH, may be normal variant ( R in aVL ) Abnormal ECG When compared with ECG of 25-SEP-2021 15:56, Premature supraventricular complexes are now Present Referred By: Generic ED Physician Electronically Signed By:RAJI ULLOA MD
--- NOTE | ~2021-09-26 | XR_ITS ---
EXAMINATION: XR CHEST CLINICAL INFORMATION: Left-sided rib cage pain. COMPARISON: 09/26/2021 chest radiographs. TECHNIQUE: Frontal view of the chest was obtained. FINDINGS: Again seen is moderate elevation of the anterior right hemidiaphragm without significant change. The lungs are clear. The heart and mediastinal structures are unremarkable. XR/XR chest 1V IMPRESSION: No acute cardiopulmonary process.
--- NOTE | ~2021-09-26 | XR_ITS ---
EXAMINATION: XR CHEST CLINICAL INFORMATION: Chest pain. COMPARISON: 04/20/2019 chest radiographs. TECHNIQUE: 2 views of the chest were obtained. FINDINGS: Mild to moderate elevation of the anterior right hemidiaphragm is again seen without significant change. The lungs are clear. The heart and mediastinal structures are unremarkable. XR/XR chest 2V IMPRESSION: Stable chest. No acute cardiopulmonary process.
[2021-09-26 08:21] VITALS: BP 179/99; PULSE 64; RESP 19; TEMP 36.6; O2SAT 97; BMI 38.9
[2021-09-26 08:37] LABS: MANUAL DIFF FLAG NO
[2021-09-26 08:40] LABS: Basophils Percent Auto 0.1 % (0-2); Hematocrit 42.3 % (37.0-47.0); Hemoglobin 14.1 g/dl (12.0-16.0); Imm Gran Abs Auto 0.06 X10*3/uL (0.00-0.03); Imm Gran Pct Auto 0.4 % (0.0-0.4); Lymphocytes Absolute Auto 1.6 X10*3/uL (1.2-4.9); Lymphocytes Percent Auto 12.1 % (20-40); Mean Corpuscular HGB Conc 33.3 g/dl (31.0-35.0); Mean Corpuscular Hemoglobin 30.6 pg (27.0-33.0); Mean Corpuscular Volume 91.8 fL (80.0-98.0); Mean Platelet Volume 9.7 fL (9.4-12.3); Monocytes Absolute Auto 1.2 X10*3/uL (0.1-1.2); Monocytes Percent Auto 8.6 % (2-11); Neutrophils Absolute Auto 10.7 x10*3/uL (2.0-8.3); Neutrophils Percent Auto 78.8 % (45-73); Platelet Count 398 X10*3/uL (160-400); Red Blood Count 4.61 X10*6/uL (4.20-5.50); Red Cell Distribution Width 13.7 % (11.0-16.0); White Blood Count 13.5 X10*3/uL (4.8-10.8)
[2021-09-26 09:00] LABS: Troponin-I High Sensitivity 7.8 ng/L (<3.5-17.0)
[2021-09-26 09:02] LABS: COVID-19 Test Negative (Negative)
[2021-09-26 09:03] LABS: IDNOW Serial# 16C4AD1C; Influenza A Negative (Negative); Influenza B2 Negative (Negative)
[2021-09-26 09:06] LABS: Alanine Aminotransferase 28 U/L (0-31); Albumin Level 4.4 g/dL (3.5-5.0); Alkaline Phosphatase 69 U/L (39-117); Anion Gap 16 (12-20); Aspartate Amino Transferase 19 U/L (5-31); Bilirubin Direct 0.2 mg/dL (0.0-0.5); Bilirubin Total 0.6 mg/dL (0.0-1.0); Blood Urea Nitrogen 29 mg/dL (9-16); Calcium 9.9 mg/dL (8.4-10.2); Carbon Dioxide 27 mmol/L (22-29); Chloride 99 mmol/L (96-108); Creatinine Clr Calc Pharmacy 40.1; Estimated Glomerular Filt Rate 49; Glucose Random 145 mg/dL (60-115); Lipase 26 U/L (8-78); Potassium 5.3 mmol/L (3.3-5.1); Sodium 137 mmol/L (135-145)
--- NOTE | 2021-09-26 09:21 | ED_ITS ---
HPI - Chest Pain General Chief Complaint: General Medical Stated Complaint: Chest pain/HBP/High blood sugar Time Seen by Provider: 09/26/21 09:13 Source: patient Mode of arrival: ambulatory Limitations: language barrier (Kyrgyz-speaking medical claims manager utilized) History of Present Illness HPI narrative: Patient presents to the emergency department for evaluation of chest pain. She states that the past 4 days she has been having intermittent chest pain, substernal and epigastric described as a burning sensation. It is significantly worse at night when she is lying down. She has associated nausea. In addition she is concerned her blood pressure readings have been elevated at home, with reports of systolic blood pressure being over 200. In addition she is concerned that her blood sugar levels have been as high as the 300s, unable to provide specific numbers. It is unclear exactly when she is taking her blood sugars and how soon after eating she is checking them. Patient's daughter reports that the blood sugar readings in the blood pressure readings have been ongoing for ?a while?. She came to the emergency department yesterday for evaluation of the same symptoms of left for reading. States that she has not yet contacted her primary care provider regarding these concerns. denies headache, lightheadedness, dizziness, vision changes, shortness of breath, difficulty breathing, palpitations, pedal edema, generalized weakness, dysuria, urinary frequency/urgency/hesitancy. Related Data Home Medications Medication Instructions Recorded Confirmed dicyclomine 10 mg capsule 20 mg PO Q6H PRN 05/24/21 09/26/21 loperamide 2 mg capsule 2 - 4 mg PO QID PRN 05/24/21 08/24/21 dexamethasone 4 mg tablet 1 tab PO BID 09/26/21 09/26/21 ibuprofen 800 mg tablet 800 mg PO Q8H PRN 09/26/21 09/26/21 Previous Rx's Medication Instructions Recorded blood-glucose meter (FreeStyle #1 ea 05/25/20 Lite Meter) blood sugar diagnostic (FreeStyle #100 ea 10/26/20 Test) gabapentin 800 mg tablet 800 mg PO BID 30 Days #60 tab 05/24/21 trazodone 100 mg tablet 300 mg PO BEDTIME 90 Days #270 tab 07/18/21 blood sugar diagnostic (FreeStyle #100 ea 07/25/21 Lite Strips) lancets 28 gauge (FreeStyle #100 ea 07/25/21 Lancets) omeprazole 20 mg capsule,delayed 20 mg PO DAILY 30 Days #30 cap 08/05/21 release acetaminophen 650 mg 650 mg PO Q12H 30 Days #60 tab 08/24/21 tablet,extended release amitriptyline 10 mg tablet 10 mg PO BEDTIME #90 tab 08/24/21 amlodipine 5 mg tablet 5 mg PO DAILY #90 tab 08/24/21 atorvastatin 20 mg tablet 20 mg PO DAILY #90 tab 08/24/21 citalopram 20 mg tablet 20 mg PO DAILY #30 tab 08/24/21 metoprolol tartrate 50 mg tablet 50 mg PO BID #180 tab 08/24/21 cyclobenzaprine 10 mg tablet 10 mg PO TID PRN 15 Days #45 tab 08/28/21 oxycodone 5 mg tablet 5 mg PO Q12H 28 Days #56 tab 09/13/21 Allergies Allergy/AdvReac Type Severity Reaction Status Date / Time No Known Allergies Allergy Verified 08/24/21 12:28 [No Known Allergies*] Review of Systems Review of Systems: Constitutional : No Weight loss, No Fever, No Chills ENT/Mouth :? No sore throat, No Rhinorrhea Eyes: No Eye Pain, No Swelling Cardiovascular : pos Chest Pain, no SOB, no Dyspnea on Exertion, No Orthopnea, No Edema, No Palpitations Respiratory : No Cough, No Sputum Gastrointestinal : pos Nausea, No Vomiting, No Diarrhea, pos abdominal Pain, No Hematochezia, No Melena Genitourinary : No Dysuria, No Urinary Frequency Musculoskeletal : No joint pain, No Myalgias, No Joint Swelling Skin : No Skin Lesions, No rash Neuro : No Weakness, No Numbness, No Dizziness, No Headache Psych : No Anxiety/Panic, No Depression Heme/Lymph: No Bruising, No Lymphadenopathy Endocrine : No Polyuria, No Polydipsia Yes all other systems are reviewed and are negative [facility] Past Medical History Attestation statement: The following information was validated with the patient. Source: old records reviewed Medical History Diabetes 1.5, managed as type 2 HTN (hypertension) Traumatic complete tear of right rotator cuff Surgical History History of colonoscopy History of lumbar fusion History of lumpectomy of left breast History of surgery S/P [id number] (total abdominal hysterectomy and bilateral salpingo-oophorectomy) Family History Family History Father No problems noted. Mother Heart disease Hypertension Colon cancer Maternal Grandmother Esophageal cancer Daughter Breast cancer Brother Colon cancer Sister Breast cancer Son Heart disease Cancer Family/Other Cancer Heart disease Social History Social History Housing: Apartment Alcohol intake: current Alcohol intake frequency: does not drink Patient Tobacco Use Status: Never used Tobacco e-Cigarette/Vaping Use: Never Used Use of substances other than those prescribed or required for medical reasons: No Advance Directives: Yes Advance Directives on File: Yes Advance Directives Date on File: 09/26/21 service: No Current occupational status: retired Cognitive needs: No Hearing needs: No Vision needs: Yes Physical Exam Vital Signs: Vital Signs: Last Vital Signs Temp 98 F 09/26/21 08:21 Pulse 63 09/26/21 14:41 Resp 17 09/26/21 14:41 BP 171/85 H 09/26/21 09:50 Pulse Ox 98 09/26/21 14:41 BMI result Body Mass Index 38.9 Vital signs have been reviewed and appeared to be correct. Initially hypertensive 179/99, 162/91 during exam. Heart rate normal.? Respiration rate normal. Temperature normal.? Oxygen saturation normal. Appearance: Alert.?Oriented to person, place and time. No acute distress.?Normal affect. Eyes: Pupils equal, round and reactive to light.? ENT: Pharynx normal.?? Neck: Normal inspection.? Neck supple.?? CVS: Heart sounds normal. Normal heart rate and rhythm.? Pulses normal.?? Respiratory: No respiratory distress.? Lung sounds clear to auscultation bilaterally?? Abdomen: Soft and non-tender. Normoactive bowel sounds. Skin: Skin warm and dry.? Normal skin color.? Extremities: No lower extremity edema.? No calf ttp. Neuro: Moves all extremities spontaneously. Sensation intact bilaterally. CN II-XII intact. No focal neuro deficits. Ambulates with normal steady gait. Course Course Course Narrative: Patient is a 71-year-old female with a past medical history of hypertension, obesity, type 2 diabetes, major depressive disorder, neuropathic pain, opioid dependence, GERD. She is presenting to the emergency department for evaluation of intermittent chest and abdominal pain that is worse at night with associated nausea, and concerns about elevated blood pressure and blood glucose readings at home that have been ongoing. She is overall well-appearing, in no apparent distress, resting on the stretcher, afebrile, no tachycardia, no hypoxia or tachypnea. Her blood pressure is elevated and she states that she did take her blood pressure medications this morning. Of note her most recent A1c in May 2021 was 6.0, she is not currently taking any medications for her diabetes, she does not engage in any regular exercise, and provides a vague history about dietary habits. History and physical exam not consistent with GI perforation, GI bleed, AAA, aortic dissection, DKA. Not consistent with strangulated hernia, bowel obstruction, pulmonary embolism, PERC negative. Will obtain CBC, CMP, troponin EKG, and chest x-ray. Given that her symptoms are worse at night when she is lying supine, will trial course of Maalox with lidocaine viscous in addition to famotidine for current pain. Reevaluation(s) Reevaluation #1: CBC reveals mild leukocytosis 13.5. CMP reveals hyperkalemia 5.3, elevated BUN 29 likely secondary to dehydration. Troponin 7.8, EKG reveals sinus rhythm with PVC, HEART Score of 4. Will obtained delta troponin and repeat potassium. COVID- 19 influenza testing are negative. Chest x-ray reveals no acute cardiopulmonary process. Time: 09:45 Reevaluation #2: Repeat potassium 5.2. Repeat troponin 15.5, >50% Delta. Denying chest pain at this time. Spoke with hospitalist, Anny Thomson [employer] WR[employer]PER accepts patient her hos pital admission to medicine service. Patient and her daughter updated on plan of care and are both agreeable. Time: 12:15 [facility] - Chest Pain Medical Records Data Attestation: I reviewed the patient's medical records. Lab Data Attestation: I reviewed the patient's lab results. Result diagrams: 09/26/21 08:33 09/26/21 11:26 Labs: Lab Results 09/26/21 09/26/21 09/26/21 Range/Units 08:33 08:33 08:33 WBC 13.5 H (4.8-10.8) X10*3/uL RBC 4.61 (4.20-5.50) X10*6/uL Hgb 14.1 (12.0-16.0) g/dl Hct 42.3 (37.0-47.0) % MCV 91.8 (80.0-98.0) fL MCH 30.6 (27.0-33.0) pg MCHC 33.3 (31.0-35.0) g/dl RDW 13.7 (11.0-16.0) % Plt Count 398 (160-400) X10*3/uL MPV 9.7 (9.4-12.3) fL Immature Gran % (Auto) 0.4 (0.0-0.4) % Neut % (Auto) 78.8 H (45-73) % Lymph % (Auto) 12.1 L (20-40) % Howard % (Auto) 8.6 (2-11) % Eos % (Auto) 0.0 (0-4) % Baso % (Auto) 0.1 (0-2) % Lymph # (Auto) 1.6 (1.2-4.9) X10*3/uL Howard # (Auto) 1.2 (0.1-1.2) X10*3/uL Eos # (Auto) 0.0 (0.0-0.4) X10*3/uL Baso # (Auto) 0.0 (0.0-0.2) X10*3/uL Abs Immat Gran (auto) 0.06 H (0.00-0.03) X10*3/uL Absolute Neuts (auto) 10.7 H (2.0-8.3) x10*3/uL Absolute Nucleated RBC 0.000 (0.0-0.012) X10*3/uL Nucleated RBC % (auto) 0.0 (0.0-0.2) /100WBC Sodium 137 (135-145) mmol/L Potassium 5.3 H (3.3-5.1) mmol/L Chloride 99 (96-108) mmol/L Carbon Dioxide 27 (22-29) mmol/L Anion Gap 16 (12-20) BUN 29 H (9-16) mg/dL Creatinine 1.10 (0.5-1.4) mg/dL Estim Creat Clear Calc 40.1 Estimated GFR 49 Random Glucose 145 H (60-115) mg/dL Calcium 9.9 (8.4-10.2) mg/dL Total Bilirubin 0.6 (0.0-1.0) mg/dL Direct Bilirubin 0.2 (0.0-0.5) mg/dL AST 19 (5-31) U/L ALT 28 (0-31) U/L Alkaline Phosphatase 69 (39-117) U/L Troponin I High Sens 7.8 (<3.5-17.0) ng/L Total Protein 8.0 (6.5-8.0) g/dL Albumin 4.4 (3.5-5.0) g/dL Lipase 26 (8-78) U/L COVID-19 ([facility]) (Negative) COVID-19 Clin Com Influenza Type A ([facility]) (Negative) Influenza Type B ([facility]BEY) (Negative) Influenza A & B Note 09/26/21 09/26/21 09/26/21 Range/Units 08:33 08:33 11:26 WBC (4.8-10.8) X10*3/uL RBC (4.20-5.50) X10*6/uL Hgb (12.0-16.0) g/dl Hct (37.0-47.0) % MCV (80.0-98.0) fL MCH (27.0-33.0) pg MCHC (31.0-35.0) g/dl RDW (11.0-16.0) % Plt Count (160-400) X10*3/uL MPV (9.4-12.3) fL Immature Gran % (Auto) (0.0-0.4) % Neut % (Auto) (45-73) % Lymph % (Auto) (20-40) % Howard % (Auto) (2-11) % Eos % (Auto) (0-4) % Baso % (Auto) (0-2) % Lymph # (Auto) (1.2-4.9) X10*3/uL Howard # (Auto) (0.1-1.2) X10*3/uL Eos # (Auto) (0.0-0.4) X10*3/uL Baso # (Auto) (0.0-0.2) X10*3/uL Abs Immat Gran (auto) (0.00-0.03) X10*3/uL Absolute Neuts (auto) (2.0-8.3) x10*3/uL Absolute Nucleated RBC (0.0-0.012) X10*3/uL Nucleated RBC % (auto) (0.0-0.2) /100WBC Sodium (135-145) mmol/L Potassium 5.2 H (3.3-5.1) mmol/L Chloride (96-108) mmol/L Carbon Dioxide (22-29) mmol/L Anion Gap (12-20) BUN (9-16) mg/dL Creatinine (0.5-1.4) mg/dL Estim Creat Clear Calc Estimated GFR Random Glucose (60-115) mg/dL Calcium (8.4-10.2) mg/dL Total Bilirubin (0.0-1.0) mg/dL Direct Bilirubin (0.0-0.5) mg/dL AST (5-31) U/L ALT (0-31) U/L Alkaline Phosphatase (39-117) U/L Troponin I High Sens (<3.5-17.0) ng/L Total Protein (6.5-8.0) g/dL Albumin (3.5-5.0) g/dL Lipase (8-78) U/L COVID-19 ([facility]) Negative (Negative) COVID-19 Clin Com See Note Influenza Type A ([facility]) Negative (Negative) Influenza Type B ([facility]Y) Negative (Negative) Influenza A & B Note See Note 09/26/21 Range/Units 11:26 WBC (4.8-10.8) X10*3/uL RBC (4.20-5.50) X10*6/uL Hgb (12.0-16.0) g/dl Hct (37.0-47.0) % MCV (80.0-98.0) fL MCH (27.0-33.0) pg MCHC (31.0-35.0) g/dl RDW (11.0-16.0) % Plt Count (160-400) X10*3/uL MPV (9.4-12.3) fL Immature Gran % (Auto) (0.0-0.4) % Neut % (Auto) (45-73) % Lymph % (Auto) (20-40) % Howard % (Auto) (2-11) % Eos % (Auto) (0-4) % Baso % (Auto) (0-2) % Lymph # (Auto) (1.2-4.9) X10*3/uL Howard # (Auto) (0.1-1.2) X10*3/uL Eos # (Auto) (0.0-0.4) X10*3/uL Baso # (Auto) (0.0-0.2) X10*3/uL Abs Immat Gran (auto) (0.00-0.03) X10*3/uL Absolute Neuts (auto) (2.0-8.3) x10*3/uL Absolute Nucleated RBC (0.0-0.012) X10*3/uL Nucleated RBC % (auto) (0.0-0.2) /100WBC Sodium (135-145) mmol/L Potassium (3.3-5.1) mmol/L Chloride (96-108) mmol/L Carbon Dioxide (22-29) mmol/L Anion Gap (12-20) BUN (9-16) mg/dL Creatinine (0.5-1.4) mg/dL Estim Creat Clear Calc Estimated GFR Random Glucose (60-115) mg/dL Calcium (8.4-10.2) mg/dL Total Bilirubin (0.0-1.0) mg/dL Direct Bilirubin (0.0-0.5) mg/dL AST (5-31) U/L ALT (0-31) U/L Alkaline Phosphatase (39-117) U/L Troponin I High Sens 15.5 D (<3.5-17.0) ng/L Total Protein (6.5-8.0) g/dL Albumin (3.5-5.0) g/dL Lipase (8-78) U/L COVID-19 ([facility]) (Negative) COVID-19 Clin Com Influenza Type A ([facility]) (Negative) Influenza Type B ([facility]) (Negative) Influenza A & B Note Imaging Data Chest x-ray: Radiologist's impression: XR/XR chest 2V IMPRESSION: Stable chest. No acute cardiopulmonary process. ECG Data ECG #1: ECG interpretation date: 09/26/21 ECG interpretation time: 09:24 Prior ECG tracings: available for review Interpretation: Rate: 65 Rhythm:? Sinus rhythm with PVC [place]:? Left axis deviation Normal P waves.? Normal KIM.?? Normal QRS complex.?? ST T wave :??No ST elevation, no ST depression qTC: 457 prior studies:? March 2019 The study has been interpreted contemporaneously by me. Discharge Plan Discharge Clinical Impression: Chest pain, Hypertension, DMII (diabetes mellitus, type 2), Hyperkalemia Patient Disposition: Admitted As Inpatient
[2021-09-26 09:50] VITALS: BP 171/85; PULSE 57; RESP 16; O2SAT 99
--- NOTE | 2021-09-26 10:07 | PC.NURSE ---
PT ALERT AND ORIENTED, SKIN APPROPRIATE FOR ETHNICITY, RESPIRATIONS EVEN AND UNLABORED, PT REPORTS EPIGASTRIC PAIN/MIDSTERNAL CHEST PAIN DESCRIBES IT BURNING WITH NAUSEA THAT STARTED TWO DAYS AGO, NS ON THE MONITOR 58-62
[2021-09-26] MEDS: Magnesium Hydrox/Alum Hydrox 30 ML ORAL.SUSP PO (10:11)
[2021-09-26] MEDS: Lidocaine HCl Viscous 2 % 15 ML SOLUTION MUCOUS MEM (10:11)
[2021-09-26] MEDS: Famotidine 20 MG TABLET PO (10:12)
[2021-09-26 11:48] LABS: Potassium 5.2 mmol/L (3.3-5.1)
[2021-09-26 12:01] LABS: Troponin-I High Sensitivity 15.5 ng/L (<3.5-17.0)
--- NOTE | 2021-09-26 14:02 | P.HPHOSP_ITS ---
History of Present Illness Date of Service: 09/26/21 <Anny Thomson NP - Last Filed: 09/26/21 14:59> Chief Complaint: Chest pain <Anny Thomson NP - Last Filed: 09/26/21 14:59> 71 year old women presenting with chest pain and burning, back pain, nausea and vomiting for the last 3 days. She reported chest pain with no radiation or other associated symptoms but seems to get worse at night while lying down She denied recent illness, sick contacts , fever, chills. At this time she still feels some chest pressure on and off and mostly epigastric type burning but has not had any episodes of vomiting. Her white blood cell count was noted to be elevated at 13.5, potassium 5.2, troponin 7.8/15.5. EKG shows sinus rhythm with premature supraventricular complexes. In the ED she received GI cocktail with good effect. <Anny Thomson NP - Last Filed: 09/26/21 14:59> Review of Systems Review of Systems: Denies any recent fever chills or decrease in appetite respiratory denies any shortness of breath coverage production cardiovascular See HPI gastrointestinal See HPI genitourinary denies any dysuria frequency or hematuria musculoskeletal denies any joint pain or swelling neuropsych denies any weakness or seizures all other systems reviewed are negative <Anny Thomson NP - Last Filed: 09/26/21 14:59> [facility] Medical History: Medical History Diabetes 1.5, managed as type 2 HTN (hypertension) Traumatic complete tear of right rotator cuff <Anny Thomson NP - Last Filed: 09/26/21 14:59> Family History: Family History Father No problems noted. Mother Heart disease Hypertension Colon cancer Maternal Grandmother Esophageal cancer Daughter Breast cancer Brother Colon cancer Sister Breast cancer Son Heart disease Cancer Family/Other Cancer Heart disease <Anny Thomson NP - Last Filed: 09/26/21 14:59> Surgical History: Surgical History History of colonoscopy History of lumbar fusion History of lumpectomy of left breast History of surgery S/P ANDRÉS-BSO (total abdominal hysterectomy and bilateral salpingo-oophorectomy) <Anny Thomson NP - Last Filed: 09/26/21 14:59> Social History: Social History Housing: Apartment Alcohol intake: current Alcohol intake frequency: does not drink Patient Tobacco Use Status: Never used Tobacco e-Cigarette/Vaping Use: Never Used Use of substances other than those prescribed or required for medical reasons: No Advance Directives: Yes Advance Directives on File: Yes Advance Directives Date on File: 09/26/21 service: No Current occupational status: retired Cognitive needs: No Hearing needs: No Vision needs: Yes <Anny Thomson NP - Last Filed: 09/26/21 14:59> Meds Allergies/Adverse reactions: Allergies Allergy/AdvReac Type Severity Reaction Status Date / Time No Known Allergies Allergy Verified 08/24/21 12:28 [No Known Allergies*] <Anny Thomson NP - Last Filed: 09/26/21 14:59> Active Medications: Current Medications Acetaminophen (Acetaminophen 325 Mg Tablet) 650 mg PO Q6H PRN PRN Reason: Pain, Mild (Pain Scale 1-3) Ondansetron HCl (Ondansetron Hcl 4 Mg/2 Ml Vial) 4 mg IVPUSH Q8H PRN PRN Reason: Nausea and Vomiting Pharmacy Consult (Consult Rx Perform Med Rec) 1 each MISCELLANE ONCE PRN PRN Reason: Consult order Sodium Chloride (0.9 % Sodium Chloride Flush 3 Ml Syringe) 3 ml IVFLUSH [facility] <Anny Thomson NP - Last Filed: 09/26/21 14:59> Home medications: Home Medications Medication Instructions Recorded Confirmed Last Taken Type dicyclomine 10 mg capsule 20 mg PO Q6H PRN 05/24/21 09/26/21 Unknown History loperamide 2 mg capsule 2 - 4 mg PO QID PRN 05/24/21 08/24/21 Unknown History dexamethasone 4 mg tablet 1 tab PO BID 09/26/21 09/26/21 09/26/21 History ibuprofen 800 mg tablet 800 mg PO Q8H PRN 09/26/21 09/26/21 Unknown History <Anny Thomson NP - Last Filed: 09/26/21 14:59> Physical Exam Vital Signs and Narrative: Vital Signs: Last Vital Signs Temp 98 F 09/26/21 08:21 Pulse 57 09/26/21 09:50 Resp 16 09/26/21 09:50 BP 171/85 H 09/26/21 09:50 Pulse Ox 99 09/26/21 09:50 BMI result Body Mass Index 38.9 <Anny Thomson NP - Last Filed: 09/26/21 14:59> Appearing in no acute distress head is normocephalic atraumatic eyes pupils are PERRLA sclera is anicteric mouth throat mucous membranes are intact and moist neck is supple no lymphadenopathy, no JVD noted lung sounds are clear to auscultation heart regular rate rhythm, clear S1, S2 positive bowel sounds, abdomen is soft, nontender neuro patient is alert x3, no focal deficits <Anny Thomson NP - Last Filed: 09/26/21 14:59> Results Labs CBC and Chem 7: : 09/26/21 08:33 09/26/21 11:26 <Anny Thomson NP - Last Filed: 09/26/21 14:59> Labs: Laboratory Results - last 24 hr 09/26/21 09/26/21 09/26/21 08:33 08:33 08:33 MCV 91.8 MCH 30.6 MCHC 33.3 RDW 13.7 Plt Count 398 MPV 9.7 Immature Gran % (Auto) 0.4 Neut % (Auto) 78.8 H Lymph % (Auto) 12.1 L [place] % (Auto) 8.6 Eos % (Auto) 0.0 Baso % (Auto) 0.1 Lymph # (Auto) 1.6 [place] # (Auto) 1.2 Eos # (Auto) 0.0 Baso # (Auto) 0.0 Abs Immat Gran (auto) 0.06 H Absolute Neuts (auto) 10.7 H Absolute Nucleated RBC 0.000 Nucleated RBC % (auto) 0.0 Anion Gap 16 Estim Creat Clear Calc 40.1 Estimated GFR 49 Random Glucose 145 H Calcium 9.9 Total Bilirubin 0.6 Direct Bilirubin 0.2 AST 19 ALT 28 Alkaline Phosphatase 69 Troponin I High Sens 7.8 Total Protein 8.0 Albumin 4.4 Lipase 26 COVID-19 (KEO) COVID-19 Clin Com Influenza Type A (OBEY) Influenza Type B (OBEY) Influenza A & B Note 09/26/21 09/26/21 09/26/21 08:33 08:33 11:26 MCV MCH MCHC RDW Plt Count MPV Immature Gran % (Auto) Neut % (Auto) Lymph % (Auto) [place] % (Auto) Eos % (Auto) Baso % (Auto) Lymph # (Auto) [place] # (Auto) Eos # (Auto) Baso # (Auto) Abs Immat Gran (auto) Absolute Neuts (auto) Absolute Nucleated RBC Nucleated RBC % (auto) Anion Gap Estim Creat Clear Calc Estimated GFR Random Glucose Calcium Total Bilirubin Direct Bilirubin AST ALT Alkaline Phosphatase Troponin I High Sens 15.5 D Total Protein Albumin Lipase COVID-19 (KEO) Negative COVID-19 Clin Com See Note Influenza Type A (OBEY) Negative Influenza Type B (OBEY) Negative Influenza A & B Note See Note <Anny Thomson NP - Last Filed: 09/26/21 14:59> Imaging Radiologist's Impressions: Impressions Chest X-Ray 09/26/21 08:48 IMPRESSION: Stable chest. No acute cardiopulmonary process. <Anny Thomson NP - Last Filed: 09/26/21 14:59> Assessment and Plan (1) HTN (hypertension): Qualifiers: Hypertension type: essential hypertension Qualified Code(s): I10 - Essential (primary) hypertension <Anny Thomson NP - Last Filed: 09/26/21 14:59> Status: Acute <Anny Thomson NP - Last Filed: 09/26/21 14:59> Plan 71 year old women placed on observation for chest pain and hypertension Chest pain No ischemic changes on EKG Troponin 7.8, 15.5 cardiology consult telemetry Hyperkalemia potassium 5.2 Trend Hypertension with elevated blood pressure Continue home medications HLD statin Chronic back pain continue gabapentin GERD continue PPI Mental health continue home medications DVT prophylaxis with Lovenox. Attending Dr. Vargas Full code <Anny Thomson NP - Last Filed: 09/26/21 14:59> 71 year old women placed on observation for chest pain and hypertension Chest pain No ischemic changes on EKG Troponin 7.8, 15.5 cardiology consult telemetry Hyperkalemia potassium 5.2 Trend Hypertension with elevated blood pressure Continue home medications HLD statin Chronic back pain continue gabapentin GERD continue PPI Mental health continue home medications DVT prophylaxis with Lovenox. Attending Dr. Vargas: Agree with history physical and plan as outlined by Ms. Berto QUEZADA Full code <Omid Vargas DO - Last Filed: 09/26/21 18:59> Quality Stroke Does the patient have a stroke diagnosis?: No <Anny Thomson NP - Last Filed: 09/26/21 14:59> VTE Prior VTE?: No <Anny Thomson NP - Last Filed: 09/26/21 14:59> VTE Risk Level:: Medical - moderate - high <Anny Thomson NP - Last Filed: 09/26/21 14:59> VTE Device Contraindication: Treatment Not Indicated <Anny Thomson NP - Last Filed: 09/26/21 14:59> VTE Drug Contraindication: N/A - Med Ordered <Anny Thomson NP - Last Filed: 09/26/21 14:59>
[2021-09-26 14:41] VITALS: PULSE 63; RESP 17; O2SAT 98
--- NOTE | 2021-09-26 14:52 | PHA.MEDREC ---
Pharmacy Consult ? Medication Reconciliation Pharmacy has completed the medication reconciliation.
[2021-09-26] MEDS: oxyCODONE HCl Immed Release 5 MG TABLET PO (15:43)
[2021-09-26] MEDS: 0.9 % Sodium Chloride Flush 3 ML SYRINGE IVFLUSH (15:46)
[2021-09-26] MEDS: Cyclobenzaprine HCl 10 MG TABLET PO (19:09)
[2021-09-26 21:48] VITALS: BP 130/80; PULSE 62; RESP 18; TEMP 36.8; O2SAT 95
[2021-09-26] MEDS: Metoprolol Tartrate 50 MG TABLET PO (22:07)
[2021-09-26] MEDS: traZODone HCL 100 MG TABLET 300 MG PO (22:07)
[2021-09-26] MEDS: Gabapentin 400 MG CAPSULE 800 MG PO (22:07)
[2021-09-26] MEDS: dexAMETHasone 4 MG TABLET PO (22:07)
[2021-09-26] MEDS: Amitriptyline HCl 10 MG TABLET PO (22:07)
--- NOTE | 2021-09-27 03:00 | PC.NURSE ---
Patient alert and oriented x 3. luxembourgish speaking. Patient c/o mid chest to left chest pain medicated with relief. Patient fell asleep. Patient ambulates with cane at home. tele: sinus rythym with pvc's K-5.4 MD aware will reassess in am. Will continue with plan of care. Awaiting bed.
[2021-09-27 04:14] VITALS: BP 140/94; PULSE 97; RESP 16; TEMP 36.7; O2SAT 97
[2021-09-27 04:59] LABS: MANUAL DIFF FLAG NO
[2021-09-27 05:00] LABS: Basophils Percent Auto 0.1 % (0-2); Hematocrit 41.3 % (37.0-47.0); Hemoglobin 13.7 g/dl (12.0-16.0); Imm Gran Abs Auto 0.07 X10*3/uL (0.00-0.03); Imm Gran Pct Auto 0.7 % (0.0-0.4); Lymphocytes Percent Auto 10.9 % (20-40); Mean Corpuscular HGB Conc 33.2 g/dl (31.0-35.0); Mean Corpuscular Volume 93.4 fL (80.0-98.0); Monocytes Absolute Auto 0.4 X10*3/uL (0.1-1.2); Monocytes Percent Auto 3.8 % (2-11); Neutrophils Absolute Auto 8.1 x10*3/uL (2.0-8.3); Neutrophils Percent Auto 84.5 % (45-73); Platelet Count 353 X10*3/uL (160-400); Red Blood Count 4.42 X10*6/uL (4.20-5.50); Red Cell Distribution Width 13.9 % (11.0-16.0); White Blood Count 9.5 X10*3/uL (4.8-10.8)
[2021-09-27 05:17] LABS: Anion Gap 14 (12-20); Blood Urea Nitrogen 28 mg/dL (9-16); Calcium 9.2 mg/dL (8.4-10.2); Carbon Dioxide 26 mmol/L (22-29); Chloride 99 mmol/L (96-108); Creatinine Clr Calc Pharmacy 38.7; Estimated Glomerular Filt Rate 47; Glucose Random 190 mg/dL (60-115); Potassium 5.1 mmol/L (3.3-5.1); Sodium 134 mmol/L (135-145)
[2021-09-27 07:22] VITALS: BP 141/85; PULSE 69; RESP 13; TEMP 36.6; O2SAT 97
[2021-09-27] MEDS: 0.9 % Sodium Chloride Flush 3 ML SYRINGE IVFLUSH ×2 (07:37→17:52)
--- NOTE | 2021-09-27 07:38 | PC.NURSE ---
pt a&ox3, vss, pt c/o 10/03 left-sided abd pain. IV flushed and patent. pt requesting pillow for left arm. no new orders at this time.
[2021-09-27] MEDS: Acetaminophen 325 MG TABLET 650 MG PO (07:51)
--- NOTE | 2021-09-27 07:52 | PC.NURSE ---
medicated w PRN tylenol for 5/10 abd pain.
--- NOTE | 2021-09-27 09:29 | PM.CNCAR ---
History of Present Illness History of Present Illness Date of Service: 09/27/21 Chief complaint: CHEST PAIN, high blood pressure Narrative: 71-year-old female presenting with chest pain. She has left-sided reproducible chest wall pain. Previous history of atypical chest pains in the past. She was also noticed to have elevated blood pressure and sugars. She is denying any exertional symptoms in the past. Currently she continues to have pain and exquisite tenderness over the left sided ribs. [facility] Past Medical History Medical History Diabetes 1.5, managed as type 2 HTN (hypertension) Traumatic complete tear of right rotator cuff Family History Family History Father No problems noted. Mother Heart disease Hypertension Colon cancer Maternal Grandmother Esophageal cancer Daughter Breast cancer Brother Colon cancer Sister Breast cancer Son Heart disease Cancer Family/Other Cancer Heart disease Surgical History Surgical History History of colonoscopy History of lumbar fusion History of lumpectomy of left breast History of surgery S/P ANDRÉS-BSO (total abdominal hysterectomy and bilateral salpingo-oophorectomy) Social History Social History Housing: Apartment Alcohol intake: current Alcohol intake frequency: does not drink Patient Tobacco Use Status: Never used Tobacco e-Cigarette/Vaping Use: Never Used Use of substances other than those prescribed or required for medical reasons: No Advance Directives: Yes Advance Directives on File: Yes Advance Directives Date on File: 09/26/21 service: No Current occupational status: disabled Cognitive needs: No Hearing needs: No Vision needs: Yes Meds Allergies Allergy/AdvReac Type Severity Reaction Status Date / Time No Known Allergies Allergy Verified 08/24/21 12:28 [No Known Allergies*] Active Medications: Current Medications Acetaminophen (Acetaminophen 325 Mg Tablet) 650 mg PO Q6H PRN PRN Reason: Pain, Mild (Pain Scale 1-3) Last Admin: 09/27/21 07:51 Dose: 650 mg Documented by: Amitriptyline HCl (Amitriptyline Hcl 10 Mg Tablet) 10 mg PO BEDTIME [facility] Last Admin: 09/26/21 22:07 Dose: 10 mg Documented by: Amlodipine Besylate (Amlodipine Besylate 5 Mg Tablet) 5 mg PO DAILY [facility]; Protocol Atorvastatin Calcium (Atorvastatin Calcium 20 Mg Tablet) 20 mg PO DAILY [facility] Cyclobenzaprine HCl (Cyclobenzaprine Hcl 10 Mg Tablet) 10 mg PO TID PRN PRN Reason: muscle spasm Last Admin: 09/26/21 19:09 Dose: 10 mg Documented by: Dexamethasone (Dexamethasone 4 Mg Tablet) 4 mg PO BID [facility] Last Admin: 09/26/21 22:07 Dose: 4 mg Documented by: Dicyclomine HCl (Dicyclomine Hcl 10 Mg Capsule) 20 mg PO Q6H PRN PRN Reason: cramps Escitalopram Oxalate (Escitalopram Oxalate 10 Mg Tablet) 10 mg PO DAILY [facility] Gabapentin (Gabapentin 400 Mg Capsule) 800 mg PO BID [facility] Last Admin: 09/26/21 22:07 Dose: 800 mg Documented by: Metoprolol Tartrate (Metoprolol Tartrate 50 Mg Tablet) 50 mg PO BID [facility]; Protocol Last Admin: 09/26/21 22:07 Dose: 50 mg Documented by: Omeprazole (Omeprazole 20 Mg Capsule.Dr) 20 mg PO DAILY [facility] Ondansetron HCl (Ondansetron Hcl 4 Mg/2 Ml Vial) 4 mg IVPUSH Q8H PRN PRN Reason: Nausea and Vomiting Oxycodone HCl (Oxycodone Hcl Immed Release 5 Mg Tablet) 5 mg PO Q12H [facility] Last Admin: 09/27/21 05:37 Dose: Not Given Documented by: Pharmacy Consult (Consult Rx Perform Med Rec) 1 each MISCELLANE ONCE PRN PRN Reason: Consult order Sodium Chloride (0.9 % Sodium Chloride Flush 3 Ml Syringe) 3 ml IVFLUSH QSHIFT [facility] Last Admin: 09/27/21 07:37 Dose: 3 ml Documented by: Trazodone HCl (Trazodone Hcl 100 Mg Tablet) 300 mg PO BEDTIME [facility] Last Admin: 09/26/21 22:07 Dose: 300 mg Documented by: Home Medications Medication Instructions Recorded Confirmed Last Taken Type dicyclomine 10 mg capsule 20 mg PO Q6H PRN 05/24/21 09/26/21 Unknown History loperamide 2 mg capsule 2 - 4 mg PO QID PRN 05/24/21 08/24/21 Unknown History dexamethasone 4 mg tablet 1 tab PO BID 09/26/21 09/26/21 09/26/21 History ibuprofen 800 mg tablet 800 mg PO Q8H PRN 09/26/21 09/26/21 Unknown History Physical Exam Vital Signs: Vital Signs: Last Vital Signs Temp 97.9 F 09/27/21 07:22 Pulse 69 09/27/21 07:22 Resp 13 09/27/21 07:22 BP 141/85 H 09/27/21 07:22 Pulse Ox 97 09/27/21 07:22 BMI result Body Mass Index 38.9 GENERAL APPEARANCE: in no acute distress, pleasant. NECK: no carotid bruit, no jugular venous distention. SKIN: no suspicious lesions, warm and dry. HEART: no murmurs, regular rate and rhythm. LUNGS: clear to auscultation bilaterally. ABDOMEN: soft, nontender. EXTREMITIES: no edema. PERIPHERAL PULSES: equal. NEUROLOGIC: No gross deficits, AAO X 3 Objective Labs and Meds Result diagrams: 09/27/21 04:42 09/27/21 04:42 Lab results: Laboratory Results - last 24 hr 09/26/21 09/26/21 09/27/21 11:26 11:26 04:42 WBC 9.5 RBC 4.42 Hgb 13.7 Hct 41.3 MCV 93.4 MCH 31.0 MCHC 33.2 RDW 13.9 Plt Count 353 MPV 10.0 Immature Gran % (Auto) 0.7 H Neut % (Auto) 84.5 H Lymph % (Auto) 10.9 L [place] % (Auto) 3.8 Eos % (Auto) 0.0 Baso % (Auto) 0.1 Lymph # (Auto) 1.0 L [place] # (Auto) 0.4 Eos # (Auto) 0.0 Baso # (Auto) 0.0 Abs Immat Gran (auto) 0.07 H Absolute Neuts (auto) 8.1 Absolute Nucleated RBC 0.000 Nucleated RBC % (auto) 0.0 Sodium Potassium 5.2 H Chloride Carbon Dioxide Anion Gap BUN Creatinine Estim Creat Clear Calc Estimated GFR Random Glucose Calcium Troponin I High Sens 15.5 D 09/27/21 04:42 WBC RBC Hgb Hct MCV MCH MCHC RDW Plt Count MPV Immature Gran % (Auto) Neut % (Auto) Lymph % (Auto) [place] % (Auto) Eos % (Auto) Baso % (Auto) Lymph # (Auto) [place] # (Auto) Eos # (Auto) Baso # (Auto) Abs Immat Gran (auto) Absolute Neuts (auto) Absolute Nucleated RBC Nucleated RBC % (auto) Sodium 134 L Potassium 5.1 Chloride 99 Carbon Dioxide 26 Anion Gap 14 BUN 28 H Creatinine 1.14 Estim Creat Clear Calc 38.7 Estimated GFR 47 Random Glucose 190 H Calcium 9.2 D Troponin I High Sens Assessment and Plan (1) Chest pain: Status: Acute (2) Hypertension: Status: Acute Plan 71-year-old female presenting for chest pain. The chest pain is noncardiac in origin and clearly reproducible on the chest wall and ribs. Does not need further workup for the chest pain at this point. Biomarkers are normal. No dynamic EKG changes. Recommend echocardiography to assess for any structural heart issues and to look for pericardial effusion. This can be performed inpatient versus outpatient. Thank you for allowing me to participate in the care of your patient. Please feel free to contact me if you have any questions. Procedures Date of Service Date of Service: 09/27/21
[2021-09-27 09:59] VITALS: BP 147/84; PULSE 63; RESP 14; O2SAT 96
[2021-09-27] MEDS: Gabapentin 400 MG CAPSULE 800 MG PO ×2 (09:59→20:17)
[2021-09-27] MEDS: amLODIPine Besylate 5 MG TABLET PO (09:59)
[2021-09-27] MEDS: Omeprazole 20 MG CAPSULE.DR PO (09:59)
[2021-09-27] MEDS: Atorvastatin Calcium 20 MG TABLET PO (09:59)
[2021-09-27] MEDS: Metoprolol Tartrate 50 MG TABLET PO ×2 (10:00→20:16)
[2021-09-27] MEDS: dexAMETHasone 4 MG TABLET PO ×2 (10:00→20:17)
[2021-09-27] MEDS: Escitalopram Oxalate 10 MG TABLET PO (10:00)
--- NOTE | 2021-09-27 10:01 | MHC.CM.PN ---
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 Patient lives alone, ambulates with a walker and has a FAMILY CASEWORKER through [facility]. Copy of HCP verified to be on file. Patient received 3 Moderna vaccines. PCP verified. Obs notice explained and signed. Patient's family will transport her home when medically stable. Continue to monitor for d/c needs.
[2021-09-27] MEDS: Acetaminophen 325 MG TABLET 975 MG PO ×2 (14:25→20:17)
[2021-09-27] MEDS: oxyCODONE HCl Immed Release 5 MG TABLET PO ×2 (14:26→17:51)
[2021-09-27] MEDS: Lidocaine 4 % Patch ADH..PATCH 1 PATCH TRANSDERMA (14:27)
--- NOTE | 2021-09-27 15:58 | HO.PM.IMPN ---
Subjective Subjective Date of Service: 09/27/21 Interval History: chest tightness -reproducible, intermittent, burning pain. Somewhat improving in the afternoon Review of Systems Denies any shortness of breath or abdominal pain or fever or chills or cough or phlegm. Physical Exam Vital Signs: Vital Signs: Last Vital Signs Temp 97.9 F 09/27/21 07:22 Pulse 63 09/27/21 09:59 Resp 14 09/27/21 09:59 BP 147/84 H 09/27/21 09:59 Pulse Ox 96 09/27/21 09:59 BMI result Body Mass Index 38.9 Appearance: Alert.? Oriented X3.? cvs: rrr, [id number] , no murmur. chest: clear to auscultation ,no rhonchii or wheezing abd: no rebound or guarding ,nt, bs present. ext pulses present , no cyanosis. neuro: axo3 , nonfocal. Objective Data Active Medications Acetaminophen (Acetaminophen 325 Mg Tablet) 975 mg PO TID [facility] Last Admin: 09/27/21 14:25 Dose: 975 mg Documented by: KALEB-KASI Amitriptyline HCl (Amitriptyline Hcl 10 Mg Tablet) 10 mg PO BEDTIME [facility] Last Admin: 09/26/21 22:07 Dose: 10 mg Documented by: VIPUL Amlodipine Besylate (Amlodipine Besylate 5 Mg Tablet) 5 mg PO DAILY [facility]; Protocol Last Admin: 09/27/21 09:59 Dose: 5 mg Documented by: ISAURA Atorvastatin Calcium (Atorvastatin Calcium 20 Mg Tablet) 20 mg PO DAILY [facility] Last Admin: 09/27/21 09:59 Dose: 20 mg Documented by: ISAURA Cyclobenzaprine HCl (Cyclobenzaprine Hcl 10 Mg Tablet) 10 mg PO TID PRN PRN Reason: muscle spasm Last Admin: 09/26/21 19:09 Dose: 10 mg Documented by: VIPUL Dexamethasone (Dexamethasone 4 Mg Tablet) 4 mg PO BID [facility] Last Admin: 09/27/21 10:00 Dose: 4 mg Documented by: ISAURA Dicyclomine HCl (Dicyclomine Hcl 10 Mg Capsule) 20 mg PO Q6H PRN PRN Reason: cramps Escitalopram Oxalate (Escitalopram Oxalate 10 Mg Tablet) 10 mg PO DAILY [facility] Last Admin: 09/27/21 10:00 Dose: 10 mg Documented by: SHARONOPEJade Gabapentin (Gabapentin 400 Mg Capsule) 800 mg PO BID [facility] Last Admin: 09/27/21 09:59 Dose: 800 mg Documented by: ISAURA Lactated Ringer's (Lr) 500 mls @ 500 mls/hr IVCONT .Q1H PRN PRN Reason: quin Lidocaine (Lidocaine 4 % Patch Adh..Patch) 1 patch TRANSDERMA DAILY [facility]; Protocol Last Admin: 09/27/21 14:27 Dose: 1 patch Documented by: N-STALK Metoprolol Tartrate (Metoprolol Tartrate 50 Mg Tablet) 50 mg PO BID [facility]; Protocol Last Admin: 09/27/21 10:00 Dose: 50 mg Documented by: ISAURA Omeprazole (Omeprazole 20 Mg Capsule.Dr) 20 mg PO DAILY [facility] Last Admin: 09/27/21 09:59 Dose: 20 mg Documented by: ISAURA Ondansetron HCl (Ondansetron Hcl 4 Mg/2 Ml Vial) 4 mg IVPUSH Q8H PRN PRN Reason: Nausea and Vomiting Oxycodone HCl (Oxycodone Hcl Immed Release 5 Mg Tablet) 5 mg PO Q12H [facility] Last Admin: 09/27/21 05:37 Dose: Not Given Documented by: JENNIFER Non-Admin Reason: pt sleeping Pharmacy Consult (Consult Rx Perform Med Rec) 1 each MISCELLANE ONCE PRN PRN Reason: Consult order Sodium Chloride (0.9 % Sodium Chloride Flush 3 Ml Syringe) 3 ml IVFLUSH QSHIFT [facility] Last Admin: 09/27/21 07:37 Dose: 3 ml Documented by: MADDENL Trazodone HCl (Trazodone Hcl 100 Mg Tablet) 300 mg PO BEDTIME [facility] Last Admin: 09/26/21 22:07 Dose: 300 mg Documented by: VIPUL Labs CBC & Chem 7: 09/27/21 04:42 09/27/21 04:42 Labs: Laboratory Results - last 24 hr 09/27/21 09/27/21 04:42 04:42 MCV 93.4 MCH 31.0 MCHC 33.2 RDW 13.9 Plt Count 353 MPV 10.0 Immature Gran % (Auto) 0.7 H Neut % (Auto) 84.5 H Lymph % (Auto) 10.9 L [place] % (Auto) 3.8 Eos % (Auto) 0.0 Baso % (Auto) 0.1 Lymph # (Auto) 1.0 L [place] # (Auto) 0.4 Eos # (Auto) 0.0 Baso # (Auto) 0.0 Abs Immat Gran (auto) 0.07 H Absolute Neuts (auto) 8.1 Absolute Nucleated RBC 0.000 Nucleated RBC % (auto) 0.0 Anion Gap 14 Estim Creat Clear Calc 38.7 Estimated GFR 47 Random Glucose 190 H Calcium 9.2 D Assessment and Plan (1) Chest pain: Status: Acute (2) QUIN (acute kidney injury): Status: Acute Plan 71 year old women placed on observation for chest pain and hypertension Chest pain No ischemic changes on EKG Troponin 7.8, 15.5 cardiology consult-seems pain improvin , added echo chest pain -added lidocaine patch ,tylenol ,ppi telemetry Hyperkalemia improved. Hypertension with elevated blood pressure fluctuating due to pain: Continue amlodipine,metoprolol. HLD statin Chronic back pain continue gabapentin GERD continue PPI Mental health continue home medications quin on ckd3: added gentle hydration DVT prophylaxis with Lovenox. need for inpateint: chest pain, workup pending ,quin Quality Stroke Does the patient have a stroke diagnosis?: No VTE Prior VTE?: No VTE Risk Level:: Medical - moderate - high VTE Device Contraindication: Treatment Not Indicated VTE Drug Contraindication: N/A - Med Ordered
[2021-09-27 17:28] VITALS: BP 159/87; PULSE 62; RESP 14; TEMP 36.8; O2SAT 97
[2021-09-27] MEDS: 0.9 % Sodium Chloride 1,000 ML 80 ML IVCONT (17:54)
--- NOTE | 2021-09-27 18:13 | PC.NURSE ---
Patient alert and oriented x 3. Wolof speaking patient understands some burundian. Patient ambulates with cane or walker. Tigered Dr. Mary patient is diabetic no sliding scale, insulin or poc ordered. Patient c/o 12/03 chest pain medicated with oxycodone with some relief. Patient has echocardiogram scheduled and cardiology consult pending. tele: sinus cristy-sinus rythym 50-70's Will continue with plan of care.
[2021-09-27 19:10] VITALS: BP 147/81; PULSE 60; RESP 18; TEMP 36.7; O2SAT 93
[2021-09-27 20:11] LABS: Glucose, Whole Blood 207 mg/dL (60-115)
[2021-09-27] MEDS: Amitriptyline HCl 10 MG TABLET PO (20:17)
[2021-09-27] MEDS: traZODone HCL 100 MG TABLET 300 MG PO (20:17)
[2021-09-27 23:40] VITALS: BP 119/66; PULSE 65; RESP 20; TEMP 36.1
[2021-09-28] VITALS (8 sets, daily range): BP systolic 119–161; BP diastolic 66–85; PULSE 55–68; RESP 18–20; TEMP 36.1–36.6; O2SAT 95–98
[2021-09-28] MEDS: 0.9 % Sodium Chloride Flush 3 ML SYRINGE IVFLUSH ×3 (00:13→14:34)
[2021-09-28] MEDS: oxyCODONE HCl Immed Release 5 MG TABLET PO ×2 (03:41→14:34)
[2021-09-28] MEDS: 0.9 % Sodium Chloride 1,000 ML 80 ML IVCONT (06:07)
[2021-09-28 06:52] LABS: Anion Gap 13 (12-20); Blood Urea Nitrogen 23 mg/dL (9-16); Carbon Dioxide 24 mmol/L (22-29); Chloride 103 mmol/L (96-108); Creatinine Clr Calc Pharmacy 46.4; Estimated Glomerular Filt Rate 58; Glucose Random 209 mg/dL (60-115); Potassium 4.9 mmol/L (3.3-5.1); Sodium 135 mmol/L (135-145)
[2021-09-28 07:17] LABS: Glucose, Whole Blood 191 mg/dL (60-115)
--- NOTE | 2021-09-28 07:30 | CA_ITS ---
Transthoracic Echocardiogram Patient (Last, First, Middle): Beatriz Herbert, Gender: Female Date of : 1950 Age: 71 Procedure Date: 09/28/2021 Procedure Type: Transthoracic Echocardiogram [place] [facility] [place]: 144.78 cm Weight: 81.65 kg BSA: 1.72 m2 Heart Rate: bpm BP: 138 / 69 mmHg Personal Financial Counselor: YR/TO Referring MD: Matty Mary MD Lining Sewer: Yoan Foley MD Symptoms: chest pain Study Quality: Fair ECG Rhythm: Sinus Conclusions: - 1. Normal LV systolic function with impaired relaxation filling pattern with suggestion of increased left ventricular end diastolic pressure 2. Mildly dilated left atrium 3. Normal cardiac valvular Doppler 4. Normal RV systolic pressure 5. No pericardial effusion Findings Left Ventricle Normal left ventricular size, thickness, and systolic function. The visually estimated ejection fraction is between 60-65%. Spectral Doppler is indicative of an impaired relaxation filling pattern. Elevated left ventricular end diastolic pressure. Right Ventricle Normal right ventricular cavity size and systolic function. Atria The left atrium is mildly dilated. There is no evidence of interatrial shunt. The right atrium is normal in size. Aortic Valve Normal aortic valve structure and function. There is no aortic valve stenosis. There is no aortic valve regurgitation. Mitral Valve There is mild anterior and posterior mitral leaflet thickening. There is mild mitral annular calcification. There is trace mitral valve regurgitation. There is no mitral valve stenosis. Pulmonic Valve The pulmonic valve was not well visualized. Tricuspid Valve Likely normal tricuspid valve structure and function. There is mild tricuspid valve regurgitation. The right ventricular systolic pressure is normal. The right ventricular systolic pressure is 29 mmHg. Normal right atrial pressure. There is no evidence of pulmonary hypertension. Great Vessels All visible segments of the aorta are normal in size. The pulmonary artery was not well visualized. Venous The inferior vena cava is normal in size and collapses greater than 50% with inspiration. Pericardium/Pleural There is no evidence of pericardial effusion. Prior Study Comparison No significant change compared to prior study. Measurements 2D Linear Measurements IVSd: 0.96 0.6-0.9/0.6-1.0 cm LVIDd: 4.81 3.9-5.3/4.2-5.9 cm LVIDd Index: 2.80 2.4-3.2/2.2-3.1 cm/m2 LVIDs: 3.07 2.0-3.6 cm LVPWd: 0.90 0.7-1.1 cm LA Diam: 3.50 2.7-3.8/3.0-4.0 cm LAIDs Index: 2.03 1.5-2.3 cm/m2 LV Mass: 192.74 67-162/88-224 g LV Mass Index: 112.06 43-95/49-115 g/m2 LVOT Diam: 1.90 3.0+(-)1.3 cm 2D Systolic Function EF 4C: 60.20 >55% EF 2C: 53.70 >55% EF BiP: 57.30 >55% Mitral Valve MV Pk E: 0.85 MV PK A: 0.85 MV Decel Time: 386.00 E/A: 1.00 E'Lateral: 7.62 E'Medial: 6.64 E/E' Med: 12.70 E/E' Lat: 11.10 PHT: 113.00 MVA PHT: 1.95 Decel Oliver: 2.19 Aortic Valve AoV Pk Ayush: 1.32 AoV Mn Ayush: 0.93 AoV VTI: 0.28 AoV Pk Grad: 7.00 Aov Mn Grad: 4.00 ALLISON Cont.VTI: 1.90 LVOT LVOT Pk Ayush: 0.74 LVOT Mn Ayush: 0.52 LVOT VTI: 0.19 LVOT Pk Grad: 2.00 LVOT Mn Grad: 1.00 LVOT Diam: 1.90 LVOT Area: 2.84 Diastolic Function MV Pk E: 0.85 MV Pk A: 0.85 E/A: 1.00 E'Medial: 6.64 E/E' Med: 12.70 E' Laterial: 7.62 E/E' Lat: 11.10 Right Ventricle TAPSE (mm): 20.80 TVS' Ayush: 15.10 Tricuspid Valve TR Pk Ayush: 2.55 TR Pk Grad: 26.00 RA Press: 3.00 RVSP: 29.00 Great Vessels Aorta Sinus of Valsalva: 3.14 2.0-3.[address] Ridge: 2.65 1.7-3.4 cm Ao Asc: 3.60 2.1-3.4 cm Ao Arch: 2.70 Updated in Other Vendor System with Status of Final Yoan Foley MD electronically signed on 09/28/2021 1:21:04 PM with status of Final
[2021-09-28 08:06] LABS: Estimated Average Glucose 134 mg/dL; Hemoglobin A1c % 6.3 %
[2021-09-28] MEDS: Metoprolol Tartrate 50 MG TABLET PO ×2 (08:20→22:38)
[2021-09-28] MEDS: Omeprazole 20 MG CAPSULE.DR PO (08:20)
[2021-09-28] MEDS: dexAMETHasone 4 MG TABLET PO ×2 (08:20→22:38)
[2021-09-28] MEDS: Gabapentin 400 MG CAPSULE 800 MG PO ×2 (08:20→22:38)
[2021-09-28] MEDS: Atorvastatin Calcium 20 MG TABLET PO (08:21)
[2021-09-28] MEDS: Escitalopram Oxalate 10 MG TABLET PO (08:21)
[2021-09-28] MEDS: Lidocaine 4 % Patch ADH..PATCH 1 PATCH TRANSDERMA (08:21)
[2021-09-28] MEDS: Acetaminophen 325 MG TABLET 975 MG PO ×3 (08:21→22:37)
[2021-09-28] MEDS: amLODIPine Besylate 5 MG TABLET PO (08:21)
[2021-09-28 11:24] LABS: Glucose, Whole Blood 183 mg/dL (60-115)
--- NOTE | 2021-09-28 14:45 | P.PNIM_ITS ---
Subjective Subjective Date of Service: 09/29/21 Interval History: left lateral chest wall pain Review of Systems Patient said that the pain is increasing today . She has lateral chest wall pain due to body habitus is obese difficult to tell if is coming from the back but reproducible specially ribcage area, difficult to palpate rib area due to body habitus. Denies any nausea vomiting or numbness or weakness or any fever or chills. Physical Exam Vital Signs: Vital Signs: Last Vital Signs Temp 97.4 F 09/28/21 11:45 Pulse 58 09/28/21 11:45 Resp 20 09/28/21 11:45 BP 161/85 H 09/28/21 11:45 Pulse Ox 97 09/28/21 11:45 BMI result Body Mass Index 38.9 Appearance: Alert.? Oriented X3.? cvs: rrr, [id number] , no murmur. chest: clear to auscultation ,no rhonchii or wheezing abd: no rebound or guarding ,nt, bs present. ext pulses present , no cyanosis. MS:left lateral chest wall pain , no erythema or swellin neuro: axo3 , nonfocal Objective Data Active Medications Acetaminophen (Acetaminophen 325 Mg Tablet) 975 mg PO TID [facility] Last Admin: 09/28/21 14:34 Dose: 975 mg Documented by: TONI Amitriptyline HCl (Amitriptyline Hcl 10 Mg Tablet) 10 mg PO BEDTIME [facility] Last Admin: 09/27/21 20:17 Dose: 10 mg Documented by: HAMZAH Amlodipine Besylate (Amlodipine Besylate 5 Mg Tablet) 5 mg PO DAILY [facility]; Protocol Last Admin: 09/28/21 08:21 Dose: 5 mg Documented by: TONI Atorvastatin Calcium (Atorvastatin Calcium 20 Mg Tablet) 20 mg PO DAILY [facility] Last Admin: 09/28/21 08:21 Dose: 20 mg Documented by: TONI Cyclobenzaprine HCl (Cyclobenzaprine Hcl 10 Mg Tablet) 10 mg PO TID PRN PRN Reason: muscle spasm Last Admin: 09/26/21 19:09 Dose: 10 mg Documented by: VIPUL Dexamethasone (Dexamethasone 4 Mg Tablet) 4 mg PO BID [facility] Last Admin: 09/28/21 08:20 Dose: 4 mg Documented by: TONI Dextrose (Dextrose 50 % 25 Gm/50 Ml Syringe) 25 gm IVPUSH Q15M PRN; Protocol PRN Reason: per Hypoglycemia Standing Ord. Dicyclomine HCl (Dicyclomine Hcl 10 Mg Capsule) 20 mg PO Q6H PRN PRN Reason: cramps Escitalopram Oxalate (Escitalopram Oxalate 10 Mg Tablet) 10 mg PO DAILY [facility] Last Admin: 09/28/21 08:21 Dose: 10 mg Documented by: TONI Gabapentin (Gabapentin 400 Mg Capsule) 800 mg PO BID [facility] Last Admin: 09/28/21 08:20 Dose: 800 mg Documented by: TONI Glucose (Glucose Gel 15 Gm Gel..Gram.) 15 gm PO Q15M PRN; Protocol PRN Reason: per Hypoglycemia Standing Ord. Lidocaine (Lidocaine 4 % Patch Adh..Patch) 1 patch TRANSDERMA DAILY [facility]; Pr otocol Last Admin: 09/28/21 08:21 Dose: 1 patch Documented by: TONI Metoprolol Tartrate (Metoprolol Tartrate 50 Mg Tablet) 50 mg PO BID [facility]; Protocol Last Admin: 09/28/21 08:20 Dose: 50 mg Documented by: TONI Morphine Sulfate (Morphine Sulfate 2 Mg/Ml Cartridge) 1 mg IVPUSH Q2H PRN; Protocol PRN Reason: Pain, Mild (Pain Scale 1-3) Omeprazole (Omeprazole 20 Mg Capsule.Dr) 20 mg PO DAILY [facility] Last Admin: 09/28/21 08:20 Dose: 20 mg Documented by: TONI Ondansetron HCl (Ondansetron Hcl 4 Mg/2 Ml Vial) 4 mg IVPUSH Q8H PRN PRN Reason: Nausea and Vomiting Oxycodone HCl (Oxycodone Hcl Immed Release 5 Mg Tablet) 5 mg PO Q12H [facility] Last Admin: 09/28/21 14:34 Dose: 5 mg Documented by: TONI Pharmacy Consult (Consult Rx Perform Med Rec) 1 each MISCELLANE ONCE PRN PRN Reason: Consult order Sodium Chloride (0.9 % Sodium Chloride Flush 3 Ml Syringe) 3 ml IVFLUSH QSHIFT [facility] Last Admin: 09/28/21 14:34 Dose: 3 ml Documented by: TONI Trazodone HCl (Trazodone Hcl 100 Mg Tablet) 300 mg PO BEDTIME [facility] Last Admin: 09/27/21 20:17 Dose: 300 mg Documented by: HAMZAH Labs CBC & Chem 7: 09/27/21 04:42 09/28/21 06:17 Labs: Laboratory Results - last 24 hr 09/27/21 09/28/21 09/28/21 19:12 06:17 06:17 Anion Gap 13 Estim Creat Clear Calc 46.4 Estimated GFR 58 POC Glucose 207 H Random Glucose 209 H Estimat Average Glucose 134 Hemoglobin A1c % 6.3 Calcium 9.0 09/28/21 09/28/21 07:03 11:12 Anion Gap Estim Creat Clear Calc Estimated GFR POC Glucose 191 H 183 H Random Glucose Estimat Average Glucose Hemoglobin A1c % Calcium Assessment and Plan (1) Chest pain: Status: Acute (2) Radiculopathy: Status: Acute Plan 71 year old women placed on observation for chest pain and hypertension Chest pain lateral chest wall pain,mri 1 months back-has multilevel cervical spondylosis with spondylitic changes resulting in varying degrees of moderate to severe foraminal stenosis bilaterally throughout the cervical spine, also annular disc bulges that mildly narrow the central canal at these level at multiple thoracic areas. No ischemic changes on EKG Troponin 7.8, 15.5 cardiology consult-seems pain less likely,echo seems fine . intractable pain - lidocaine patch ,tylenol ,oxycodone ,already on dexamethasone , flexril, added iv morphine . will add neuro eval-?pain related to throacic spine changes on mri. Hyperkalemia improved. Hypertension with elevated blood pressure fluctuating due to pain: Continue amlodipine,metoprolol. HLD statin Chronic back pain continue gabapentin GERD continue PPI Mental health continue home medications yoselin on ckd3: improved gentle hydration-seems near baseline. DVT prophylaxis with Lovenox. need for inpateint: intractable pain, neurology eval pending for possible radicular pain Quality Stroke Does the patient have a stroke diagnosis?: No VTE Prior VTE?: No VTE Risk Level:: Medical - moderate - high VTE Device Contraindication: Treatment Not Indicated VTE Drug Contraindication: N/A - Med Ordered
[2021-09-28 16:19] LABS: Glucose, Whole Blood 190 mg/dL (60-115)
[2021-09-28] MEDS: Morphine Sulfate 2 MG/ML CARTRIDGE IVPUSH ×2 (18:47→22:42)
[2021-09-28 21:08] LABS: Glucose, Whole Blood 194 mg/dL (60-115)
[2021-09-28] MEDS: traZODone HCL 100 MG TABLET 300 MG PO (22:37)
[2021-09-28] MEDS: Amitriptyline HCl 10 MG TABLET PO (22:37)
[2021-09-29] MEDS: 0.9 % Sodium Chloride Flush 3 ML SYRINGE IVFLUSH ×2 (00:24→08:58)
[2021-09-29 03:03] VITALS: BP 140/76; PULSE 53; RESP 18; TEMP 36.2; O2SAT 94
[2021-09-29] MEDS: oxyCODONE HCl Immed Release 5 MG TABLET PO ×2 (04:20→15:26)
[2021-09-29 07:37] VITALS: BP 157/82; PULSE 65; RESP 16; TEMP 36.3; O2SAT 95
[2021-09-29 07:54] LABS: Glucose, Whole Blood 189 mg/dL (60-115)
[2021-09-29] MEDS: Gabapentin 400 MG CAPSULE 800 MG PO (08:54)
[2021-09-29] MEDS: Escitalopram Oxalate 10 MG TABLET PO (08:55)
[2021-09-29] MEDS: Omeprazole 20 MG CAPSULE.DR PO (08:55)
[2021-09-29] MEDS: Atorvastatin Calcium 20 MG TABLET PO (08:56)
[2021-09-29] MEDS: Metoprolol Tartrate 50 MG TABLET PO (08:56)
[2021-09-29] MEDS: dexAMETHasone 4 MG TABLET PO (08:56)
[2021-09-29] MEDS: Acetaminophen 325 MG TABLET 975 MG PO ×2 (08:56→15:26)
[2021-09-29] MEDS: amLODIPine Besylate 5 MG TABLET PO (08:57)
[2021-09-29] MEDS: Lidocaine 4 % Patch ADH..PATCH 1 PATCH TRANSDERMA (08:58)
[2021-09-29 09:56] VITALS: BP 157/82; PULSE 65; O2SAT 95
--- NOTE | 2021-09-29 10:51 | P.CNNE_ITS ---
History of Present Illness Data of Consult Service Date: 09/29/21 Primary Care Provider: Milan Mcgraw PA-C [facility] Reason for consult: Back pain 71 years old woman I was asked to see for back pain suggestive of thoracic Neurology a. She said that she was suffering from this pain for last few days. It was localized to left upper back area. She reported that 8 also was felt in front of her chest but did not move around the chest like a band. It was deep ache. She said that it was significant and affecting her breathing. There was no recent cold or flu-like illness or fever. There was no history of recent trauma. Review of Systems Review of Systems: As in HPI [facility] Past Medical History Medical History Diabetes 1.5, managed as type 2 HTN (hypertension) Traumatic complete tear of right rotator cuff Family History Family History Father No problems noted. Mother Heart disease Hypertension Colon cancer Maternal Grandmother Esophageal cancer Daughter Breast cancer Brother Colon cancer Sister Breast cancer Son Heart disease Cancer Family/Other Cancer Heart disease Surgical History Surgical History History of colonoscopy History of lumbar fusion History of lumpectomy of left breast History of surgery S/P [id number] (total abdominal hysterectomy and bilateral salpingo-oophorectomy) Social History Social History Housing: Apartment Alcohol intake: current Alcohol intake frequency: does not drink Patient Tobacco Use Status: Never used Tobacco e-Cigarette/Vaping Use: Never Used Advance Directives Date on File: 09/26/21 service: No Current occupational status: disabled Cognitive needs: No Hearing needs: No Vision needs: Yes Meds Allergies Allergy/AdvReac Type Severity Reaction Status Date / Time No Known Allergies Allergy Verified 08/24/21 12:28 [No Known Allergies*] Active Medications: Current Medications Acetaminophen (Acetaminophen 325 Mg Tablet) 975 mg PO TID [facility] Last Admin: 09/29/21 08:56 Dose: 975 mg Documented by: Amitriptyline HCl (Amitriptyline Hcl 10 Mg Tablet) 10 mg PO BEDTIME [facility] Last Admin: 09/28/21 22:37 Dose: 10 mg Documented by: Amlodipine Besylate (Amlodipine Besylate 5 Mg Tablet) 5 mg PO DAILY [facility]; Protocol Last Admin: 09/29/21 08:57 Dose: 5 mg Documented by: Atorvastatin Calcium (Atorvastatin Calcium 20 Mg Tablet) 20 mg PO DAILY [facility] Last Admin: 09/29/21 08:56 Dose: 20 mg Documented by: Cyclobenzaprine HCl (Cyclobenzaprine Hcl 10 Mg Tablet) 10 mg PO TID PRN PRN Reason: muscle spasm Last Admin: 09/26/21 19:09 Dose: 10 mg Documented by: Dexamethasone (Dexamethasone 4 Mg Tablet) 4 mg PO BID [facility] Last Admin: 09/29/21 08:56 Dose: 4 mg Documented by: Dextrose (Dextrose 50 % 25 Gm/50 Ml Syringe) 25 gm IVPUSH Q15M PRN; Protocol PRN Reason: per Hypoglycemia Standing Ord. Dicyclomine HCl (Dicyclomine Hcl 10 Mg Capsule) 20 mg PO Q6H PRN PRN Reason: cramps Escitalopram Oxalate (Escitalopram Oxalate 10 Mg Tablet) 10 mg PO DAILY [facility] Last Admin: 09/29/21 08:55 Dose: 10 mg Documented by: Gabapentin (Gabapentin 400 Mg Capsule) 800 mg PO BID [facility] Last Admin: 09/29/21 08:54 Dose: 800 mg Documented by: Glucose (Glucose Gel 15 Gm Gel..Gram.) 15 gm PO Q15M PRN; Protocol PRN Reason: per Hypoglycemia Standing Ord. Lidocaine (Lidocaine 4 % Patch Adh..Patch) 1 patch TRANSDERMA DAILY [facility]; Protocol Last Admin: 09/29/21 08:58 Dose: 1 patch Documented by: Metoprolol Tartrate (Metoprolol Tartrate 50 Mg Tablet) 50 mg PO BID [facility]; Protocol Last Admin: 09/29/21 08:56 Dose: 50 mg Documented by: Morphine Sulfate (Morphine Sulfate 2 Mg/Ml Cartridge) 2 mg IVPUSH Q2H PRN; Protocol PRN Reason: Pain, Mild (Pain Scale 1-3) Last Admin: 09/28/21 22:42 Dose: 2 mg Documented by: Omeprazole (Omeprazole 20 Mg Capsule.Dr) 20 mg PO DAILY [facility] Last Admin: 09/29/21 08:55 Dose: 20 mg Documented by: Ondansetron HCl (Ondansetron Hcl 4 Mg/2 Ml Vial) 4 mg IVPUSH Q8H PRN PRN Reason: Nausea and Vomiting Oxycodone HCl (Oxycodone Hcl Immed Release 5 Mg Tablet) 5 mg PO Q12H [facility] Last Admin: 09/29/21 04:20 Dose: 5 mg Documented by: Pharmacy Consult (Consult Rx Perform Med Rec) 1 each MISCELLANE ONCE PRN PRN Reason: Consult order Sodium Chloride (0.9 % Sodium Chloride Flush 3 Ml Syringe) 3 ml IVFLUSH QSHIFT [facility] Last Admin: 09/29/21 08:58 Dose: 3 ml Documented by: Trazodone HCl (Trazodone Hcl 100 Mg Tablet) 300 mg PO BEDTIME [facility] Last Admin: 09/28/21 22:37 Dose: 300 mg Documented by: Home Medications Medication Instructions Recorded Confirmed Last Taken Type dicyclomine 10 mg capsule 20 mg PO Q6H PRN 05/24/21 09/26/21 Unknown History loperamide 2 mg capsule 2 - 4 mg PO QID PRN 05/24/21 08/24/21 Unknown History dexamethasone 4 mg tablet 1 tab PO BID 09/26/21 09/26/21 09/26/21 History ibuprofen 800 mg tablet 800 mg PO Q8H PRN 09/26/21 09/26/21 Unknown History Physical Exam Vital Signs: Vital Signs: Last Vital Signs Temp 97.4 F 09/29/21 07:37 Pulse 65 09/29/21 09:56 Resp 16 09/29/21 07:37 BP 157/82 H 09/29/21 09:56 Pulse Ox 95 09/29/21 09:56 BMI result Body Mass Index 38.9 Neuro: Other: She was alert and awake in her history was obtained with help of her family mem bers as she did not speak Citizen [place]. She was able to get up in the bed. Palpation of left upper back was painful to her but not on the right side. This seems to be little bit element of exaggeration. I had noted that she had no difficulty moving her arms and hands around when I was not asking her to do so. When asked to touch my finger and her nose she barely was able to lift her head or hand or arm up. Results Labs CBC & Chem 7: 09/27/21 04:42 09/28/21 06:17 Labs: MRI of cervical spine was reviewed. Straightening of curvature and diffuse spondylitic changes were noted. [id number]-[id number] spinal stenosis was noted. There was no definite root compression. MRI of lumbosacral spine revealed extensive spondylitic changes degenerative disc disease specially at L 3 4 and L4-5. This seems to be pressure on exiting left upper lumbar nerve root. Chest x-ray did not reveal any significant pathology Assessment and Plan (1) Musculoskeletal pain: Status: Acute The pain she described to me and evaluated is not suggestive of thoracic radiculopathy or Neurology a. It is suggestive more of musculoskeletal pain or visceral pain from pulmonary etiology. It is difficult to say that changes on cervical spine are causing this pain, as it was also radiating to front. She has significant lumbar spine pathology with that were not explain this either. I also see an element of exaggeration in her presentation of symptoms. I r ecommend symptomatic treatment and ruling out pulmonary or urinary infection. Procedures Date of Service Date of Service: 09/29/21
--- NOTE | 2021-09-29 11:15 | MHC.CM.PN ---
pt dcd home with resumption of ham pumper servceis
[2021-09-29 11:43] VITALS: BP 142/78; PULSE 53; RESP 18; TEMP 36.3; O2SAT 97
[2021-09-29 11:54] LABS: Glucose, Whole Blood 190 mg/dL (60-115)
[2021-09-29] MEDS: Morphine Sulfate 2 MG/ML CARTRIDGE IVPUSH (12:28)
[2021-09-29 14:54] LABS: Appearance Urine CLEAR; Color Urine YELLOW; Glucose Urine UA NEG (NEG); Leukocyte Esterase Urine NEG (NEG); Nitrite Urine NEG (NEG); Specific Gravity - Urine 1.015 (1.005-1.025); Urine Blood NEG (NEG); Urine Ketones NEG (NEG); Urine Protein NEG (NEG-TRACE)
[2021-09-29 16:00] VITALS: BP 131/70; PULSE 58; RESP 17; TEMP 36.3; O2SAT 97
[2021-09-29 16:27] LABS: Glucose, Whole Blood 205 mg/dL (60-115)
--- NOTE | 2021-09-29 16:45 | PM.DS ---
DS: Providers Provider Date of Service: 09/29/21 Date of admission: 09/26/21 13:31 Primary care physician: Milan Mcgraw PA-C Consults: 09/26/21 13:48 Consult to Cardiology Routine Consulting Provider: Beto Reyes Reason for consultation: chest pain Has provider been notified: No 09/28/21 13:20 Consult to Neurology Routine Consulting Provider: [facility] Reason for consultation: thoracic ? spine radiculopathy Has provider been notified: No DS: Diagnosis Discharge Diagnosis (1) Musculoskeletal pain: Status: Acute DS: Summary Hospital Course Hospital Course: ? ? 71 year old women presenting with? chest pain and burning, back pain, nausea and vomiting for the last 3 days. She reported chest pain with no radiation or other associated symptoms but seems to get worse at night while lying down She denied recent illness, sick contacts , fever, chills.? At this time she still feels some chest pressure on and off and mostly epigastric type burning but has not had any episodes of vomiting. Her white blood cell count was noted to be elevated at 13.5, potassium 5.2, troponin 7.8/15.5. ? EKG shows sinus rhythm with premature supraventricular complexes. In the ED she received GI cocktail with good effect. Hospital course:Patient came with the left side ribcage pain-seen by heart doctor does not seem like a heart pain, her echo seems to be fine. Workup including chest x-ray, echo, cardiac enzymes seems fine, chest pain seems reproducible and in the ribcage area . neurology also saw the patient-less likely pain due to spinal changes on MRI. Possible muscular cutaneous pain. Possibly most likely muscular cutaneous-continue pain management as above. Added laxatives-for bowel regimen since on pain medications. Patient has elevated finger sticks hyperglycemia hemoglobin A1c is 6.3-monitor fingersticks at home, currently will avoid medication and recommended diabetic diet and follow-up with PCP out patiently for further management. Patient is to follow-up with the PCP and possibly outpatient pain management ribcage pain if continue to have that. Time Spent with Patient Time attestation: Total time spent providing and/or coordinating discharge services: Discharge coordination time: Greater than 30 minutes Quality: Safe Use of Opioids Does Pt have an Active Cancer Diagnosis on the Problem List?: No Quality: Stroke Does the patient have a stroke diagnosis?: No Physical Exam Vital Signs: Vital Signs: Last Vital Signs Temp 97.4 F 09/29/21 16:00 Pulse 58 09/29/21 16:00 Resp 17 09/29/21 16:00 BP 131/70 09/29/21 16:00 Pulse Ox 97 09/29/21 16:00 BMI result Body Mass Index 38.9 Appearance: Alert.? Oriented X3.? cvs: rrr, [id number] , no murmur. chest: clear to auscultation ,no rhonchii or wheezing abd: no rebound or guarding ,nt, bs present. ext pulses present , no cyanosis. MS:left lateral chest wall pain improving , no erythema or swellin neuro: axo3 , nonfocal DS: Data Data Completed and Pending Labs on day of discharge: Laboratory Results - last 24 hr 09/28/21 09/29/21 09/29/21 20:58 07:44 11:46 POC Glucose 194 H 189 H 190 H Urine Color Urine Appearance Urine pH Ur Specific Power Urine Protein Urine Glucose (UA) Urine Ketones Urine Blood Urine Nitrite Ur Leukocyte Esterase 09/29/21 09/29/21 16:10 Unknown POC Glucose 205 H Urine Color YELLOW Urine Appearance CLEAR Urine pH 6.0 Ur Specific Power 1.015 Urine Protein NEG Urine Glucose (UA) NEG Urine Ketones NEG Urine Blood NEG Urine Nitrite NEG Ur Leukocyte Esterase NEG Additional Comments Additional comments: ?XR/XR chest 1V IMPRESSION: No acute cardiopulmonary process. echo: Conclusions: - 1.? Normal LV systolic function with impaired relaxation ? ? ? filling pattern with suggestion of increased left ventricular end diastolic pressure ? 2. Mildly dilated left atrium? 3. Normal cardiac valvular Doppler ? 4. Normal RV systolic pressure ? 5. No pericardial effusion ? Discharge Plan Discharge Patient Disposition: Home, Self-Care Discharge Diagnosis: chest pain atypical possible musculocutaneous . Referrals: [facility],[place], PA-C [Primary Care Provider] - 1 Week Discharge Medications: New lidocaine 5 % adhesive patch,medicated 1 patch topical DAILY Qty: 15 0RF Rx Instructions: leave on most painful area for up to 12 hrs Continued (DME) blood-glucose meter [FreeStyle Lite Meter] Kit See Rx Instructions .ROUTE .MEDSUPPLY Qty: 1 0RF Rx Instructions: As directed trazodone 100 mg tablet 300 mg PO BEDTIME 90 Days Qty: 270 2RF omeprazole 20 mg capsule,delayed release(DR/EC) 20 mg PO DAILY 30 Days Qty: 30 6RF cyclobenzaprine 10 mg tablet 10 mg PO TID PRN (Reason: muscle spasm) 15 Days Qty: 45 3RF oxycodone 5 mg tablet 5 mg PO Q12H 28 Days Qty: 56 0RF dexamethasone 4 mg tablet 1 tab PO BID 0RF ibuprofen 800 mg tablet 800 mg PO Q8H PRN (Reason: Pain) 0RF dicyclomine 10 mg capsule 20 mg PO Q6H PRN (Reason: cramps) 0RF loperamide 2 mg capsule 2 - 4 mg PO QID PRN0RF gabapentin 800 mg tablet 800 mg PO BID 30 Days Qty: 60 1RF (DME) FreeStyle Test Strip See Rx Instructions .ROUTE .MEDSUPPLY Qty: 100 2RF Rx Instructions: As directed acetaminophen 650 mg tablet extended release 650 mg PO Q12H 30 Days Qty: 60 3RF amitriptyline 10 mg tablet 10 mg PO BEDTIME Qty: 90 1RF amlodipine 5 mg tablet 5 mg PO DAILY Qty: 90 1RF atorvastatin 20 mg tablet 20 mg PO DAILY Qty: 90 1RF citalopram 20 mg tablet 20 mg PO DAILY Qty: 30 3RF metoprolol tartrate 50 mg tablet 50 mg PO BID Qty: 180 2RF (DME) lancets [FreeStyle Lancets] 28 gauge misc See Rx Instructions .ROUTE .MEDSUPPLY Qty: 100 3RF Rx Instructions: As directed (DME) FreeStyle Lite Strips Strip See Rx Instructions .ROUTE .MEDSUPPLY Qty: 100 3RF Rx Instructions: As directed Discharge Orders: Discharge Order (Routine); Ordered 09/29/21 Ordered By: Matty Mary Diet: advance to usual diet Activity on Discharge: As tolerated Stand Alone Forms: Patient Portal Discharge page Care Plan Goals: Patient came with the left side ribcage pain-seen by heart doctor does not seem like a heart pain, her echo seems to be fine. probably most likely muscular cutaneous-continue pain management as above. Added laxatives-for bowel regimen since on pain medications. Patient has elevated finger sticks hyperglycemia hemoglobin A1c is 6.3-monitor fingersticks at home, currently will avoid medication and recommended diabetic diet and follow-up with PCP out patiently for further management. Patient is to follow-up with the PCP and possibly outpatient pain management ribcage pain if continue to have that. Health Concerns: as above. Plan of Treatment: as above. Assessment: as above.
== END 2021-09-29 18:45 | disposition home or self-care (01) ==
LOC: HO.ED 11:49 → HO.EDOVER 14:10 → HO.IMC 09-27 17:44
PROVIDERS: Nurse Practitioner Family; Admitting Provider Nurse Practitioner Acute Care; Emergency Provider Emergency Medicine; PCP Physician Assistant; Visit Provider Internal Medicine
DX: R07.9 Chest pain, unspecified (principal); I12.9 Hypertensive chronic kidney disease with stage 1 through stage 4 chronic kidney disease, or unspecified chronic kidney disease; E11.22 Type 2 diabetes mellitus with diabetic chronic kidney disease; N18.30 Chronic kidney disease, stage 3 unspecified; N17.9 Acute kidney failure, unspecified; E87.5 Hyperkalemia; E78.5 Hyperlipidemia, unspecified; I47.1 Supraventricular tachycardia; R94.31 Abnormal electrocardiogram [ECG] [EKG]; M79.18 Myalgia, other site; M54.10 Radiculopathy, site unspecified; E66.9 Obesity, unspecified; Z68.38 Body mass index [BMI] 38.0-38.9, adult; Z20.822 Contact with and (suspected) exposure to COVID-19; Z79.899 Other long term (current) drug therapy
CPT/HCPCS: 36415; 71045; 71046; 80048; 80076; 81003; 82947; 83036; 83690; 84132; 84484; 85025; 87502; 87635; 93005; 93306; 96361; 96374; 96375; 96376; 97116; 97161; 99219; 99285; J2270; J8540

== ENCOUNTER 2021-10-04 12:12 | Outpatient (REF) | payer OTHER, SELFPAY | END 2021-10-04 12:13 | disposition home or self-care (01) | LOC: HO.MAMMO 12:12 | PROVIDERS: PCP Physician Assistant; Visit Provider Internal Medicine Medical Oncology | DX: Z13.89 Encounter for screening for other disorder (principal) ==

== ENCOUNTER 2021-10-08 15:03 | Emergency (ER) | payer OTHER, SELFPAY ==
--- NOTE | 2021-10-08 | ECG_ITS ---
Test Reason : CHEST PAIN Blood Pressure : / mmHG Vent. Rate : 066 BPM Atrial Rate : 066 BPM P-R Int : 142 ms QRS Dur : 080 ms QT Int : 422 ms P-R-T Axes : 050 -31 005 degrees QTc Int : 442 ms Sinus rhythm with Premature supraventricular complexes Left axis deviation Abnormal ECG When compared with ECG of 26-SEP-2021 08:09, No significant change was found Referred By: Generic ED Physician Electronically Signed By:AVE JIMENEZ
[2021-10-08 15:25] VITALS: BP 118/72; PULSE 80; RESP 14; O2SAT 96; BMI 33.7
[2021-10-08 16:00] VITALS: BP 134/66; PULSE 71; RESP 18; TEMP 36.6; O2SAT 96
--- NOTE | 2021-10-08 16:17 | ED_ITS ---
HPI - Chest Pain General Chief Complaint: Chest Pain Stated Complaint: tongue heaviness - cp Time Seen by Provider: 10/08/21 16:17 Source: patient and family Mode of arrival: ambulatory Limitations: no limitations History of Present Illness HPI narrative: History of hypertension diabetes just discharged on for QUIN comes here for feeling weak having chills and feeling tongue heavy with normal speech since last night occasional cough and some running nose and body aches patient lives alone nobody else sick at home Related Data Home Medications Medication Instructions Recorded Confirmed dicyclomine 10 mg capsule 20 mg PO Q6H PRN 05/24/21 09/26/21 loperamide 2 mg capsule 2 - 4 mg PO QID PRN 05/24/21 08/24/21 dexamethasone 4 mg tablet 1 tab PO BID 09/26/21 09/26/21 ibuprofen 800 mg tablet 800 mg PO Q8H PRN 09/26/21 09/26/21 Previous Rx's Medication Instructions Recorded blood-glucose meter (FreeStyle #1 ea 05/25/20 Lite Meter) blood sugar diagnostic (FreeStyle #100 ea 10/26/20 Test) gabapentin 800 mg tablet 800 mg PO BID 30 Days #60 tab 05/24/21 trazodone 100 mg tablet 300 mg PO BEDTIME 90 Days #270 tab 07/18/21 blood sugar diagnostic (FreeStyle #100 ea 07/25/21 Lite Strips) lancets 28 gauge (FreeStyle #100 ea 07/25/21 Lancets) omeprazole 20 mg capsule,delayed 20 mg PO DAILY 30 Days #30 cap 08/05/21 release acetaminophen 650 mg 650 mg PO Q12H 30 Days #60 tab 08/24/21 tablet,extended release amitriptyline 10 mg tablet 10 mg PO BEDTIME #90 tab 08/24/21 amlodipine 5 mg tablet 5 mg PO DAILY #90 tab 08/24/21 atorvastatin 20 mg tablet 20 mg PO DAILY #90 tab 08/24/21 citalopram 20 mg tablet 20 mg PO DAILY #30 tab 08/24/21 metoprolol tartrate 50 mg tablet 50 mg PO BID #180 tab 08/24/21 cyclobenzaprine 10 mg tablet 10 mg PO TID PRN 15 Days #45 tab 08/28/21 oxycodone 5 mg tablet 5 mg PO Q12H 28 Days #56 tab 09/13/21 lidocaine 5 % topical patch 1 patch TOPICAL DAILY #15 ea 09/28/21 polyethylene glycol 3350 17 17 g PO BID PRN #119 g 09/29/21 gram/dose oral powder (Miralax) Allergies Allergy/AdvReac Type Severity Reaction Status Date / Time No Known Allergies Allergy Verified 08/24/21 12:28 [No Known Allergies*] Review of Systems Review of Systems: Yes all other systems are reviewed and are negative PMFSH Past Medical History Medical History Diabetes 1.5, managed as type 2 HTN (hypertension) Traumatic complete tear of right rotator cuff Surgical History History of colonoscopy History of lumbar fusion History of lumpectomy of left breast History of surgery S/P [id number]-[id number] (total abdominal hysterectomy and bilateral salpingo-oophorectomy) Family History Family History Father No problems noted. Mother Heart disease Hypertension Colon cancer Maternal Grandmother Esophageal cancer Daughter Breast cancer Brother Colon cancer Sister Breast cancer Son Heart disease Cancer Family/Other Cancer Heart disease Social History Social History Housing: Apartment Alcohol intake: current Alcohol intake frequency: does not drink Patient Tobacco Use Status: Never used Tobacco e-Cigarette/Vaping Use: Never Used Advance Directives: Yes Advance Directives on File: Yes Advance Directives Date on File: 09/26/21 service: No Current occupational status: disabled Cognitive needs: No Hearing needs: No Vision needs: Yes Physical Exam Vital Signs: Vital Signs: Last Vital Signs Temp 97.8 F 10/08/21 16:00 Pulse 71 10/08/21 16:00 Resp 18 10/08/21 16:00 BP 134/66 10/08/21 16:00 Pulse Ox 96 10/08/21 16:00 BMI result Body Mass Index 33.7 Appearance: Alert. Oriented X3. No acute distress. Eyes: PERRLA, ENT: Pharynx normal. Oral Mucosa moist Neck: Normal inspection. Neck supple. CVS: Normal heart rate and rhythm. Pulses normal. Respiratory: No respiratory distress. Equal air entry bilateral, no wheezing/rales/rhonchi Abdomen: Soft and nontender. Bowel sounds are present, no mass palpable, no CVA tenderness Skin: Skin warm and dry. Normal skin color. Normal skin turgor. Extremities: No lower extremity edema. No calf tenderness Neuro: Oriented X 3. No motor deficit. No sensory deficit.No cerebellar signs , cranial nerves II-XII intact normal speech MDM - Chest Pain MDM Narrative Medical decision making narrative: Patient nonspecific weakness workup negative labs are stable discharge patient home Lab Data Attestation: I reviewed the patient's lab results. Result diagrams: 10/08/21 16:56 10/08/21 16:56 Labs: Lab Results 10/08/21 10/08/21 10/08/21 Range/Units 16:55 16:55 16:55 WBC (4.8-10.8) X10*3/uL RBC (4.20-5.50) X10*6/uL Hgb (12.0-16.0) g/dl Hct (37.0-47.0) % MCV (80.0-98.0) fL MCH (27.0-33.0) pg MCHC (31.0-35.0) g/dl RDW (11.0-16.0) % Plt Count (160-400) X10*3/uL MPV (9.4-12.3) fL Immature Gran % (Auto) (0.0-0.4) % Neut % (Auto) (45-73) % Lymph % (Auto) (20-40) % [place] % (Auto) (2-11) % Eos % (Auto) (0-4) % Baso % (Auto) (0-2) % Lymph # (Auto) (1.2-4.9) X10*3/uL [place] # (Auto) (0.1-1.2) X10*3/uL Eos # (Auto) (0.0-0.4) X10*3/uL Baso # (Auto) (0.0-0.2) X10*3/uL Abs Immat Gran (auto) (0.00-0.03) X10*3/uL Absolute Neuts (auto) (2.0-8.3) x10*3/uL Absolute Nucleated RBC (0.0-0.012) X10*3/uL Nucleated RBC % (auto) (0.0-0.2) /100WBC PT 10.6 (9.9-13.0) SEC INR 0.9 (0.9-1.1) Sodium (135-145) mmol/L Potassium (3.3-5.1) mmol/L Chloride (96-108) mmol/L Carbon Dioxide (22-29) mmol/L Anion Gap (12-20) BUN (9-16) mg/dL Creatinine (0.5-1.4) mg/dL Estim Creat Clear Calc Estimated GFR Random Glucose (60-115) mg/dL Calcium (8.4-10.2) mg/dL Troponin I High Sens 7.4 D (<3.5-17.0) ng/L B-Natriuretic Peptide 59 (<100) pg/mL Urine Color Urine Appearance Urine pH (5.0-8.0) Ur Specific [place] (1.005-1.025) Urine Protein (NEG-TRACE) MG/DL Urine Glucose (UA) (NEG) MG/DL Urine Ketones (NEG) MG/DL Urine Blood (NEG) Urine Nitrite (NEG) Ur Leukocyte Esterase (NEG) COVID-19 (KEO) (Negative) COVID-19 Clin Com Influenza Type A (OBEY) Negative (Negative) Influenza Type B (OBEY) Negative (Negative) Influenza A & B Note See Note 10/08/21 10/08/21 10/08/21 Range/Units 16:55 16:56 16:56 WBC 10.5 (4.8-10.8) X10*3/uL RBC 3.74 L (4.20-5.50) X10*6/uL Hgb 11.6 L (12.0-16.0) g/dl Hct 35.3 L (37.0-47.0) % MCV 94.4 (80.0-98.0) fL MCH 31.0 (27.0-33.0) pg MCHC 32.9 (31.0-35.0) g/dl RDW 14.2 (11.0-16.0) % Plt Count 259 D (160-400) X10*3/uL MPV 9.5 (9.4-12.3) fL Immature Gran % (Auto) 0.3 (0.0-0.4) % Neut % (Auto) 68.1 (45-73) % Lymph % (Auto) 21.9 (20-40) % [place] % (Auto) 8.1 (2-11) % Eos % (Auto) 1.4 (0-4) % Baso % (Auto) 0.2 (0-2) % Lymph # (Auto) 2.3 (1.2-4.9) X10*3/uL [place] # (Auto) 0.9 (0.1-1.2) X10*3/uL Eos # (Auto) 0.2 (0.0-0.4) X10*3/uL Baso # (Auto) 0.0 (0.0-0.2) X10*3/uL Abs Immat Gran (auto) 0.03 (0.00-0.03) X10*3/uL Absolute Neuts (auto) 7.1 (2.0-8.3) x10*3/uL Absolute Nucleated RBC 0.000 (0.0-0.012) X10*3/uL Nucleated RBC % (auto) 0.0 (0.0-0.2) /100WBC PT (9.9-13.0) SEC INR (0.9-1.1) Sodium 140 (135-145) mmol/L Potassium 4.1 (3.3-5.1) mmol/L Chloride 109 H (96-108) mmol/L Carbon Dioxide 25 (22-29) mmol/L Anion Gap 10 L (12-20) BUN 20 H (9-16) mg/dL Creatinine 1.26 (0.5-1.4) mg/dL Estim Creat Clear Calc 35.3 Estimated GFR 42 Random Glucose 107 (60-115) mg/dL Calcium 8.5 (8.4-10.2) mg/dL Troponin I High Sens (<3.5-17.0) ng/L B-Natriuretic Peptide (<100) pg/mL Urine Color Urine Appearance Urine pH (5.0-8.0) Ur Specific [place] (1.005-1.025) Urine Protein (NEG-TRACE) MG/DL Urine Glucose (UA) (NEG) MG/DL Urine Ketones (NEG) MG/DL Urine Blood (NEG) Urine Nitrite (NEG) Ur Leukocyte Esterase (NEG) COVID-19 (KEO) Negative (Negative) COVID-19 Clin Com See Note Influenza Type A (OBEY) (Negative) Influenza Type B (OBEY) (Negative) Influenza A & B Note 10/08/21 Range/Units 18:30 WBC (4.8-10.8) X10*3/uL RBC (4.20-5.50) X10*6/uL Hgb (12.0-16.0) g/dl Hct (37.0-47.0) % MCV (80.0-98.0) fL MCH (27.0-33.0) pg MCHC (31.0-35.0) g/dl RDW (11.0-16.0) % Plt Count (160-400) X10*3/uL MPV (9.4-12.3) fL Immature Gran % (Auto) (0.0-0.4) % Neut % (Auto) (45-73) % Lymph % (Auto) (20-40) % [place] % (Auto) (2-11) % Eos % (Auto) (0-4) % Baso % (Auto) (0-2) % Lymph # (Auto) (1.2-4.9) X10*3/uL [place] # (Auto) (0.1-1.2) X10*3/uL Eos # (Auto) (0.0-0.4) X10*3/uL Baso # (Auto) (0.0-0.2) X10*3/uL Abs Immat Gran (auto) (0.00-0.03) X10*3/uL Absolute Neuts (auto) (2.0-8.3) x10*3/uL Absolute Nucleated RBC (0.0-0.012) X10*3/uL Nucleated RBC % (auto) (0.0-0.2) /100WBC PT (9.9-13.0) SEC INR (0.9-1.1) Sodium (135-145) mmol/L Potassium (3.3-5.1) mmol/L Chloride (96-108) mmol/L Carbon Dioxide (22-29) mmol/L Anion Gap (12-20) BUN (9-16) mg/dL Creatinine (0.5-1.4) mg/dL Estim Creat Clear Calc Estimated GFR Random Glucose (60-115) mg/dL Calcium (8.4-10.2) mg/dL Troponin I High Sens (<3.5-17.0) ng/L B-Natriuretic Peptide (<100) pg/mL Urine Color YELLOW Urine Appearance CLEAR Urine pH 6.0 (5.0-8.0) Ur Specific [place] 1.015 (1.005-1.025) Urine Protein NEG (NEG-TRACE) MG/DL Urine Glucose (UA) NEG (NEG) MG/DL Urine Ketones NEG (NEG) MG/DL Urine Blood NEG (NEG) Urine Nitrite NEG (NEG) Ur Leukocyte Esterase NEG (NEG) COVID-19 (KEO) (Negative) COVID-19 Clin Com Influenza Type A (OBEY) (Negative) Influenza Type B (OBEY) (Negative) Influenza A & B Note Discharge Plan Discharge Clinical Impression: Weakness Patient Disposition: Home, Self-Care Instructions: Weakness (ED) Additional Instructions: Continue your medications and follow up with your PCP Prescriptions: No Action (DME) blood-glucose meter [FreeStyle Lite Meter] Kit See Rx Instructions .ROUTE .MEDSUPPLY Qty: 1 0RF Rx Instructions: As directed trazodone 100 mg tablet 300 mg PO BEDTIME 90 Days Qty: 270 2RF omeprazole 20 mg capsule,delayed release(DR/EC) 20 mg PO DAILY 30 Days Qty: 30 6RF cyclobenzaprine 10 mg tablet 10 mg PO TID PRN (Reason: muscle spasm) 15 Days Qty: 45 3RF oxycodone 5 mg tablet 5 mg PO Q12H 28 Days Qty: 56 0RF dexamethasone 4 mg tablet 1 tab PO BID 0RF ibuprofen 800 mg tablet 800 mg PO Q8H PRN (Reason: Pain) 0RF lidocaine 5 % adhesive patch,medicated 1 patch topical DAILY Qty: 15 0RF Rx Instructions: leave on most painful area for up to 12 hrs polyethylene glycol 3350 [Miralax] 17 gram/dose powder 17 g PO BID PRN (Reason: constipation) Qty: 119 0RF dicyclomine 10 mg capsule 20 mg PO Q6H PRN (Reason: cramps) 0RF loperamide 2 mg capsule 2 - 4 mg PO QID PRN0RF gabapentin 800 mg tablet 800 mg PO BID 30 Days Qty: 60 1RF (DME) FreeStyle Test Strip See Rx Instructions .ROUTE .MEDSUPPLY Qty: 100 2RF Rx Instructions: As directed acetaminophen 650 mg tablet extended release 650 mg PO Q12H 30 Days Qty: 60 3RF amitriptyline 10 mg tablet 10 mg PO BEDTIME Qty: 90 1RF amlodipine 5 mg tablet 5 mg PO DAILY Qty: 90 1RF atorvastatin 20 mg tablet 20 mg PO DAILY Qty: 90 1RF citalopram 20 mg tablet 20 mg PO DAILY Qty: 30 3RF metoprolol tartrate 50 mg tablet 50 mg PO BID Qty: 180 2RF (DME) lancets [FreeStyle Lancets] 28 gauge misc See Rx Instructions .ROUTE .MEDSUPPLY Qty: 100 3RF Rx Instructions: As directed (DME) FreeStyle Lite Strips Strip See Rx Instructions .ROUTE .MEDSUPPLY Qty: 100 3RF Rx Instructions: As directed Interventions: ED Discharge Assessment Last Done: 10/08/21 20:09 Discharge Date/Time: 10/08/21 20:10
[2021-10-08 17:01] LABS: MANUAL DIFF FLAG NO
[2021-10-08 17:02] LABS: Basophils Percent Auto 0.2 % (0-2); Eosinophils Absolute Auto 0.2 X10*3/uL (0.0-0.4); Eosinophils Percent Auto 1.4 % (0-4); Hematocrit 35.3 % (37.0-47.0); Hemoglobin 11.6 g/dl (12.0-16.0); Imm Gran Abs Auto 0.03 X10*3/uL (0.00-0.03); Imm Gran Pct Auto 0.3 % (0.0-0.4); Lymphocytes Absolute Auto 2.3 X10*3/uL (1.2-4.9); Lymphocytes Percent Auto 21.9 % (20-40); Mean Corpuscular HGB Conc 32.9 g/dl (31.0-35.0); Mean Corpuscular Volume 94.4 fL (80.0-98.0); Mean Platelet Volume 9.5 fL (9.4-12.3); Monocytes Absolute Auto 0.9 X10*3/uL (0.1-1.2); Monocytes Percent Auto 8.1 % (2-11); Neutrophils Absolute Auto 7.1 x10*3/uL (2.0-8.3); Neutrophils Percent Auto 68.1 % (45-73); Platelet Count 259 X10*3/uL (160-400); Red Blood Count 3.74 X10*6/uL (4.20-5.50); Red Cell Distribution Width 14.2 % (11.0-16.0); White Blood Count 10.5 X10*3/uL (4.8-10.8)
[2021-10-08 17:12] LABS: INTERNATIONAL NORM RATIO 0.9 (0.9-1.1); Prothrombin Time 10.6 SEC (9.9-13.0)
[2021-10-08 17:16] LABS: Anion Gap 10 (12-20); Blood Urea Nitrogen 20 mg/dL (9-16); Calcium 8.5 mg/dL (8.4-10.2); Carbon Dioxide 25 mmol/L (22-29); Chloride 109 mmol/L (96-108); Creatinine Clr Calc Pharmacy 35.3; Estimated Glomerular Filt Rate 42; Glucose Random 107 mg/dL (60-115); Potassium 4.1 mmol/L (3.3-5.1); Sodium 140 mmol/L (135-145)
[2021-10-08 17:21] LABS: COVID-19 Test Negative (Negative); IDNOW Serial# 16C4AD1C
[2021-10-08 17:22] LABS: Influenza A Negative (Negative); Influenza B2 Negative (Negative)
[2021-10-08 17:24] LABS: B Type Natriuretic Peptide 59 pg/mL (<100); Troponin-I High Sensitivity 7.4 ng/L (<3.5-17.0)
[2021-10-08 18:40] LABS: Appearance Urine CLEAR; Color Urine YELLOW; Glucose Urine UA NEG (NEG); Leukocyte Esterase Urine NEG (NEG); Nitrite Urine NEG (NEG); Specific Gravity - Urine 1.015 (1.005-1.025); Urine Blood NEG (NEG); Urine Ketones NEG (NEG); Urine Protein NEG (NEG-TRACE)
== END 2021-10-08 20:10 | disposition home or self-care (01) ==
PROVIDERS: Emergency Provider Internal Medicine; PCP Physician Assistant
DX: R53.1 Weakness (principal); I10 Essential (primary) hypertension; E13.9 Other specified diabetes mellitus without complications; Z20.822 Contact with and (suspected) exposure to COVID-19
CPT/HCPCS: 36415; 80048; 81003; 83880; 84484; 85025; 85610; 87502; 87635; 93005; 99283

== ENCOUNTER 2021-10-30 10:51 | Outpatient (REF) | payer OTHER, SELFPAY ==
[2021-10-30 11:56] LABS: Estimated Average Glucose 137 mg/dL; Hemoglobin A1c % 6.4 %
[2021-10-30 12:09] LABS: Anion Gap 16 (12-20); Blood Urea Nitrogen 13 mg/dL (9-16); Calcium 9.1 mg/dL (8.4-10.2); Carbon Dioxide 24 mmol/L (22-29); Chloride 107 mmol/L (96-108); Estimated Glomerular Filt Rate 56; Glucose Random 110 mg/dL (60-115); Potassium 4.6 mmol/L (3.3-5.1); Sodium 142 mmol/L (135-145)
== END 2021-10-30 10:52 | disposition home or self-care (01) ==
LOC: HO.LAB 10:51
PROVIDERS: PCP Physician Assistant; Visit Provider Nurse Practitioner Family
DX: R73.03 Prediabetes (principal); N17.9 Acute kidney failure, unspecified
CPT/HCPCS: 36415; 80048; 83036

== ENCOUNTER 2022-01-26 12:19 | Outpatient (REF) | payer OTHER, SELFPAY ==
--- NOTE | ~2022-01-26 | MM_ITS ---
EXAMINATION: MM DIAGNOSTIC DIGITAL BREAST TOMOSYNTHESIS, BILATERAL US DIAGNOSTIC ULTRASOUND BREAST, BILATERAL CLINICAL INFORMATION: Bilateral areas of palpable concern noted by patient at time of screening appointment. 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 Right breast cancer 2004. COMPARISON: Mammography: 01/24/2021, 01/05/2020, 06/10/2019, 12/08/2018, 12/04/2017. TECHNIQUE: Digital breast tomosynthesis is performed in both the craniocaudal and mediolateral oblique views along with computer-aided detection (CAD). Synthesized 2D images are generated from the tomosynthesis. Additional views are obtained: Left CC, spot right CC, spot right ML. Ultrasound of each breast is performed using grayscale imaging and color Doppler without and with harmonics. Imaging is targeted to the areas of palpable concern. Patient is able to point to the areas of concern at time of imaging. FINDINGS: There are scattered areas of fibroglandular density (ACR BI-RADS breast composition Category b). Left breast parenchymal pattern appears similar to prior studies. There is no developing density or interval mass or architectural abnormality. Scattered round and vascular and rim calcifications are again seen. No mammographic correlate for patient's symptoms. Right breast has decreased size and old scarring consistent with the prior lumpectomy. There is subtle focal asymmetric density central 9:00 position representing change from prior. This resides close to area of palpable concern. There is a biopsy clip marker 12:00 position mid depth and scattered benign calcifications again seen. Ultrasound left breast demonstrates no solid mass or architectural abnormality. There is a small nearly anechoic nodule 12:00 position 9 cm from nipple. No definite increased or decreased through transmission of sound. No associated color flow. Finding is probably benign and may be followed in 6 months with targeted ultrasound. Ultrasound right breast demonstrates an irregular hypoechoic mass taller than wide at 9:00 position approximately 4 cm from nipple and measuring around 0.8 x 1.2 cm. This corresponds to the area of patient's palpable concern. Location is also in general vicinity expected for the asymmetric density on mammography. Ultrasound-guided core biopsy is recommended. Results are discussed with the patient and her daughter at time of visit. Results and recommendation called to medical chief technician (Luann) for Milan Mcgraw PA-C on 01/26/2022. MM/MM tomosynthesis screening BI IMPRESSION: Right: -Subtle asymmetric density with ultrasound correlate 9:00 position under 1.5 cm. Left: -Mammography shows no significant change from prior studies. -Benign-appearing hypoechoic nodule under 5 mm 12:00 position. ASSESSMENT: BI-RADS 4: Suspicious RECOMMENDATION: -Right: Ultrasound-guided core biopsy right breast lesion. -Left: Short interval 6 month follow-up left breast ultrasound for probable benign ultrasound finding.
== END 2022-01-26 12:20 | disposition home or self-care (01) ==
LOC: HO.MAMMO 12:19
PROVIDERS: PCP Physician Assistant; Visit Provider Physician Assistant
DX: Z12.31 Encounter for screening mammogram for malignant neoplasm of breast (principal); N64.89 Other specified disorders of breast; Z85.3 Personal history of malignant neoplasm of breast
CPT/HCPCS: 76642; 77063; 77067

== ENCOUNTER → 2022-01-30 08:43 | Outpatient (BNVA) | payer OTHER, SELFPAY | PROVIDERS: PCP Physician Assistant; Referring Provider Physician Assistant; Visit Provider Surgery | DX: R92.8 Other abnormal and inconclusive findings on diagnostic imaging of breast (principal) | CPT/HCPCS: 99202 ==

== ENCOUNTER 2022-01-31 10:10 | Outpatient (REF) | payer OTHER, SELFPAY ==
--- NOTE | ~2022-01-31 | US_ITS ---
EXAMINATION: ULTRASOUND GUIDED CORE BIOPSY BREAST, RIGHT POST PROCEDURE DIGITAL BREAST TOMOSYNTHESIS, RIGHT CLINICAL INFORMATION: Palpable concern right breast, probable asymmetric density on mammography with ultrasound correlate for tissue sampling. Prior right breast cancer, 2004. Prior contralateral left breast cancer, 2016. COMPARISON: Mammography 01/26/2022, targeted ultrasound 01/26/2022. FINDINGS: Proper informed consent is obtained from the patient after discussion of the procedure, potential risks and complications, and alternatives. Patient was given an opportunity for questions. The patient appeared to understand. The patient consented to the procedure and signed the consent form. Hospital provided food service kitchen supervisor assisted with consent. GUIDANCE: Ultrasound-guided; aseptic technique. LESION: Irregular hypoechoic lesion taller than wide 9:00 position 1.2 x 0.8 cm.. APPROACH: Lateral medial. ANESTHESIA: 9 mL carbonated 1% lidocaine. DERMATOTOMY: Single skin romi dermatotomy performed. NEEDLE: 14-gauge Achieve core biopsy device with 13.5-gauge co-axial guide needle. CORES: 6. CLIP: HydroMARK; shape: open coil. POST PROCEDURE UNILATERAL DIGITAL BREAST TOMOSYNTHESIS, RIGHT: The post biopsy mammogram is performed in separate room using separate digital breast tomosynthesis equipment from the biopsy procedure. CC and ML views are obtained. Synthesized 2-D images are generated from the tomography. There are scattered areas of fibroglandular density (breast composition category: b). The clip marker is in position. No gross hematoma. The patient tolerated the procedure well. No immediate complications. Home instructions reviewed with the patient. Final pathology results are pending. US/US breast ndl core biopsy RT IMPRESSION: 1. Status post ultrasound-guided core biopsy right breast. 2. Clip placed: HydroMARK; shape: open coil. 3. Pathology pending. An addendum report will be issued.
[2022-01-31] MEDS: Lidocaine HCl 1 % 20 ML VIAL 9 ML SUBCUT (11:42)
[2022-01-31] MEDS: Sodium Bicarbonate 8.4% 50 MEQ/50 ML VIAL SUBCUT (11:44)
== END 2022-01-31 10:11 | disposition home or self-care (01) ==
LOC: HO.MAMMO 10:10
PROVIDERS: PCP Physician Assistant; Visit Provider Surgery
DX: R92.8 Other abnormal and inconclusive findings on diagnostic imaging of breast (principal)
CPT/HCPCS: 19083; 77061; 77065; 88305; 88341; 88342; 88360

== ENCOUNTER → 2022-02-06 10:10 | Outpatient (BNVA) | payer OTHER, SELFPAY | PROVIDERS: PCP Physician Assistant; Visit Provider Surgery | DX: C50.911 Malignant neoplasm of unspecified site of right female breast (principal) | CPT/HCPCS: 99212 ==

== ENCOUNTER 2022-02-19 07:08 | Inpatient (IN) | payer OTHER, SELFPAY ==
[2022-02-09 12:10] VITALS: BP 141/78; PULSE 58; RESP 20; O2SAT 97; BMI 35.9
--- NOTE | 2022-02-09 12:26 | P.CONAN_ITS ---
Documented by User: Shahnaz Salinas NP 02/09/22 13:18 HPI - Anesthesia Eval Consult details Narrative: 71yo F for Right Mastectomy Modified Radical, Left Simple Mastectomy Trip and fall up stairs about one week ago. Bruising to left cheek. No LOC. No visual change, dizziness, headaches since. Has seen PCP since fall occurred. Seen by cardiology for CP during 09/2021 [facility] – [place]. Per cardiac consult The chest pain is noncardiac in origin and clearly reproducible on the chest wall and ribs.? Does not need further workup for the chest pain at this point.? Biomarkers are normal.? No dynamic EKG changes.? Recommend echocardiography to assess for any structural heart issues and to look for pericardial effusion.? This can be performed inpatient versus outpatient. - Echo was wnl No rx for DM, 12/2021 A1C = 6.1 GERD well controlled on omeprazole Oxycodone for back pain PMFSH Active Problems Active Problems: All Active Problems (Updated 02/09/22 @ 12:07 by Dilma Elmore RN) HTN (hypertension) (Acute) Failed back syndrome (Acute) Lumbar disc disease with radiculopathy (Acute) Screening for diabetes mellitus (DM) (Acute) Pre-procedural laboratory examination (Acute) DMII (diabetes mellitus, type 2) (Acute) Insomnia (Acute) Annual physical exam (Acute) Opiate dependence (Acute) MDD (major depressive disorder), recurrent episode, moderate (Acute) Neuropathic pain (Acute) GERD (gastroesophageal reflux disease) (Acute) Diarrhea (Acute) Cervical myelopathy with cervical radiculopathy (Acute) Pre-procedure lab exam (Acute) Chest pain (Acute) Hypertension (Acute) Hyperkalemia (Acute) QUIN (acute kidney injury) (Acute) Radiculopathy (Acute) Musculoskeletal pain (Acute) Prediabetes (Acute) Hospital discharge follow-up (Acute) Cervical stenosis of spinal canal (Acute) Tinea unguium (Acute) Abnormal ultrasound of breast (Acute) Recurrent malignant neoplasm of right breast (Acute) Traumatic complete tear of right rotator cuff (Acute) Past Medical History Medical History (Updated 02/09/22 @ 12:07 by Dilma Elmore RN) Arthritis Depression Diabetes 1.5, managed as type 2 GERD (gastroesophageal reflux disease) HTN (hypertension) IBS (irritable bowel syndrome) Traumatic complete tear of right rotator cuff Family History Family History Father No problems noted. Mother Heart disease Hypertension Colon cancer Maternal Grandmother Esophageal cancer Daughter Breast cancer Brother Colon cancer Sister Breast cancer Sister Breast cancer, Onset Age: 60 Family history of problems with anesthesia: No Surgical History Surgical History (Updated 02/09/22 @ 12:07 by Dilma Elmore RN) History of colonoscopy History of esophagogastroduodenoscopy (EGD) History of lumbar fusion History of lumpectomy of both breasts History of surgery Hx of appendectomy Hx of blepharoplasty Hx of cholecystectomy S/P ANDRÉS-BSO (total abdominal hysterectomy and bilateral salpingo-oophorectomy) History of Problems with Anesthesia: No Social History Social History Housing: Apartment Are you a primary hospice home care coordinator to a significant other at home: No Do you presently have visiting nurse or other home services: Yes ([employer]) Alcohol intake: current Alcohol intake frequency: holidays/special occasions only Patient Tobacco Use Status: Never used Tobacco e-Cigarette/Vaping Use: Never Used Second Hand Smoke Exposure: No Use of substances other than those prescribed or required for medical reasons: No Have you been hit, kicked, punched, or otherwise hurt by someone within the past year? If so, by whom?: No Are you DNR?: No Advance Directives: Yes Advance Directives Information Provided: Yes Advance Directives on File: Yes Advance Directives Date on File: 09/26/21 Recently lost weight without trying: No Eating poorly because of decreased appetite: No Nutrition Risks: No Nutritional Risk Poor oral hygiene: No (upper & lower partials) service: No Current occupational status: disabled 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) Hearing needs: No Vision needs: Yes Narrative Narrative: No recent illness No CP/SOB (09/2021 [facility] – [place] admit with CP likely muskuloskeletal) Meds Allergies Allergy/AdvReac Type Severity Reaction Status Date / Time No Known Allergies Allergy Verified 02/06/22 10:20 [No Known Allergies*] Home Medications Medication Instructions Recorded Confirmed Last Taken Type oxycodone 5 mg tablet 5 mg PO Q12H PRN Pain 02/19/22 02/08/22 Unknown History Exam Exam Date and Time: February 09, 2022 1226 Height,Weight and Vital Signs: Height 4 ft 11 in Weight 80.739 kg Last Vital Signs Pulse 58 02/09/22 12:10 Resp 20 02/09/22 12:10 BP 141/78 H 02/09/22 12:10 Pulse Ox 97 02/09/22 12:10 O2 Del Method 02/09/22 12:10 Narrative Narrative: EKG 09/2021 Vent. Rate : 066 BPM ? ? Atrial Rate : 066 BPM ?? P-R Int : 142 ms? QRS Dur : 080 ms ? ? QT Int : 422 ms ? ? ? P-R-T Axes : 050 -31 005 degrees ?? QTc Int : 442 ms ? Sinus rhythm with Premature supraventricular complexes Left axis deviation Abnormal ECG When compared with ECG of 26-SEP-2021 08:09, No significant change was found ECHO 09/2021 Conclusions: - 1.? Normal LV systolic function with impaired relaxation ? ? ? filling pattern with suggestion of increased left ventricular end diastolic pressure ? 2. Mildly dilated left atrium? 3. Normal cardiac valvular Doppler ? 4. Normal RV systolic pressure ? 5. No pericardial effusion ? Airway Mallampati Class: I TM Dist: >3cm Neck ROM: Full Partial: Upper and Lower Heart: RRR Lungs: CTAB Assessment and Plan Assessment Anesthesia Assessment: Anesthesia Plan Discussed and PAT Visit Final Anesthetic Review Family History of Problems with Anesthesia: No History of Problems with Anesthesia: No Documented by User: Javier Hogan MD 02/19/22 08:36 [facility] Past Medical History Medical History (Updated 02/09/22 @ 12:07 by Dilma Elmore RN) Arthritis Depression Diabetes 1.5, managed as type 2 GERD (gastroesophageal reflux disease) HTN (hypertension) IBS (irritable bowel syndrome) Traumatic complete tear of right rotator cuff Family History Family History Father No problems noted. Mother Heart disease Hypertension Colon cancer Maternal Grandmother Esophageal cancer Daughter Breast cancer Brother Colon cancer Sister Breast cancer Sister Breast cancer, Onset Age: 60 Surgical History Surgical History (Updated 02/09/22 @ 12:07 by Dilma Elmore RN) History of colonoscopy History of esophagogastroduodenoscopy (EGD) History of lumbar fusion History of lumpectomy of both breasts History of surgery Hx of appendectomy Hx of blepharoplasty Hx of cholecystectomy S/P ANDRÉS-BSO (total abdominal hysterectomy and bilateral salpingo-oophorectomy) Social History Social History Housing: Apartment Are you a primary hospice home care coordinator to a significant other at home: No Do you presently have visiting nurse or other home services: Yes ([employer]) Alcohol intake: current Alcohol intake frequency: holidays/special occasions only Patient Tobacco Use Status: Never used Tobacco e-Cigarette/Vaping Use: Never Used Second Hand Smoke Exposure: No Use of substances other than those prescribed or required for medical reasons: No Have you been hit, kicked, punched, or otherwise hurt by someone within the past year? If so, by whom?: No Are you DNR?: No Advance Directives: Yes Advance Directives Information Provided: Yes Advance Directives on File: Yes Advance Directives Date on File: 09/26/21 Recently lost weight without trying: No Eating poorly because of decreased appetite: No Nutrition Risks: No Nutritional Risk Poor oral hygiene: No (upper & lower partials) service: No Current occupational status: disabled 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) Hearing needs: No Vision needs: Yes Meds Allergies Allergy/AdvReac Type Severity Reaction Status Date / Time No Known Allergies Allergy Verified 02/06/22 10:20 [No Known Allergies*] Home Medications Medication Instructions Recorded Confirmed Last Taken Type oxycodone 5 mg tablet 5 mg PO Q12H PRN Pain 02/19/22 02/08/22 Unknown History Exam Airway Mallampati Class: II Assessment and Plan Final Anesthetic Review NPO: Yes ASA Class: III Final Preanesthetic Review: No Changes in Pt Med Stat, Meds/Allgs Chart Reviewed, Consent Obtained/Reviewed and Anes Risks/Benef Reviewed Patient Risk: Intermediate Procedure Risk: Intermediate Anesthetic Plan Anesthetic Plan: GA Disposition: Standard PACU and Inp. Admit - Standard Bed
[2022-02-09 13:55] LABS: Hematocrit 41.8 % (37.0-47.0); Hemoglobin 13.8 g/dl (12.0-16.0); Mean Corpuscular Hemoglobin 30.9 pg (27.0-33.0); Mean Corpuscular Volume 93.7 fL (80.0-98.0); Mean Platelet Volume 10.1 fL (9.4-12.3); Platelet Count 332 X10*3/uL (160-400); Red Blood Count 4.46 X10*6/uL (4.20-5.50); Red Cell Distribution Width 13.4 % (11.0-16.0); White Blood Count 7.8 X10*3/uL (4.8-10.8)
[2022-02-09 14:17] LABS: Anion Gap 18 (12-20); Blood Urea Nitrogen 22 mg/dL (9-16); Calcium 9.3 mg/dL (8.4-10.2); Carbon Dioxide 24 mmol/L (22-29); Chloride 103 mmol/L (96-108); Creatinine Clr Calc Pharmacy 47.4; Estimated Glomerular Filt Rate 56; Glucose Random 95 mg/dL (60-115); Potassium 4.7 mmol/L (3.3-5.1); Sodium 140 mmol/L (135-145)
[2022-02-19] VITALS (16 sets, daily range): BP systolic 98–140; BP diastolic 66–87; PULSE 64–77; RESP 11–17; TEMP 36.3–36.9; O2SAT 93–100; BMI 35.9
--- NOTE | 2022-02-19 07:09 | ECG_ITS ---
Test Reason : rhythm check preop Blood Pressure : / mmHG Vent. Rate : 065 BPM Atrial Rate : 065 BPM P-R Int : 142 ms QRS Dur : 078 ms QT Int : 446 ms P-R-T Axes : 041 -35 -02 degrees QTc Int : 463 ms Normal sinus rhythm Left axis deviation Cannot rule out Anterior infarct , age undetermined Abnormal ECG When compared with ECG of 08-OCT-2021 16:10, Premature supraventricular complexes are no longer Present Referred By: Javier Hogan Electronically Signed By:ALLI MERINO
--- NOTE | 2022-02-19 07:19 | MHC.SHP ---
Pre-Procedural Eval Section A Date of Service: 02/19/22 The patient is an INPATIENT: No Changes since office visit: Yes Patient answered all questions; No Cold of Flu in the past 2 weeks, No New Medical Problems and No Changes in Medication The History & Physical has been completed within 30 days and I have reviewed it.: Yes Section B Chief Complaint: Malignant neoplasm of unspecified site of right fe Allergies: Allergies Allergy/AdvReac Type Severity Reaction Status Date / Time No Known Allergies Allergy Verified 02/06/22 10:20 [No Known Allergies*] Plan Diagnosis/Plan: Unchanged I have reviewed the history and physical and performed a pertinent physical examination on my patient. No changes have occurred unless specified.
[2022-02-19] MEDS: Lactated Ringers 1,000 ML 100 ML IVCONT (07:44)
[2022-02-19 07:47] LABS: COVID-19 Test Negative (Negative); IDNOW Serial# 55D5AD1C
[2022-02-19 08:50] LABS: Glucose, Whole Blood 121 mg/dL (60-115)
--- NOTE | 2022-02-19 10:43 | W.PM.OPN ---
Operative Note Operative Note Date of Service: 02/19/22 Narrative: Preoperative diagnosis: right breast invasive breast cancer, recurrent Postoperative diagnosis: same Procedure: right breast modified radical mastectomy, prophylactic left simple mastectomy Surgeon: Renard Malik MD Pipelaying Fitter: Roberta Ellis PA-C Anesthesia: general endotracheal Indications for procedure: 71-year-old female patient with prior history of right breast cancer presenting with a recurrent lump in the right breast at the 9 o'clock position. Subsequent ultrasound guided core biopsy confirmed a recurrent right breast invasive breast cancer. She presents today for right modified radical mastectomy. At the patient's request she will undergo a left simple mastectomy as well. Operative findings: Previous incision in the right breast noted in the upper outer quadrant. In addition patient previously underwent a right sentinel node biopsy. Specimen: Bilateral mastectomy with right axillary contents Estimated blood loss: 100 mL Complications: none Drains: GENET x2 right side, x1 left side Procedure details: patient was brought to the OR placed in a supine position. After administering general anesthesia the patient's chest was prepped with ChloraPrep and draped in a sterile fashion. A surgical time-out was called the consent confirmed. Patient received preoperative antibiotics and Venodyne boots were in place. Beginning on the right side local anesthesia was infiltrated around the breast. Elliptical incision oriented from the lateral sternum to the axilla was then created with the 15 blade. This was carried out through subcutaneous tissue. Superior flaps were then created with electrocautery up to the edge of the sternum and clavicle. Inferior flaps also created from the incision down to the lower chest wall. Dissection was continued from medial to lateral out towards the axilla. The breast was then dissected off the chest preserving the pectoralis muscle. Dissection was continued from medial to lateral around the pectoralis major and pectoralis minor muscle. There is some previous scar tissue in the axilla which was dissected carefully with electrocautery. Remaining lymph nodes in the level 1 and level 2 compartments were dissected free and sent as part of the same specimen. Care was used to maintain the long thoracic and thoracodorsal nerves in the dissection. The breast was removed and sent to pathology labeled as right breast and axilla. Hemostasis was then assured using electrocautery and free ties of 3-0 Polysorb. A moist lap pad was then placed in the breast flaps and attention directed to the left side. Once again local anesthesia was infiltrated around the breast tissue. An elliptical incision was then created with a 15 blade scalpel in a similar fashion to the right side. This was carried out through subcutaneous tissue. Superior and inferior skin flaps were then created using electrocautery dissection was continued up to the clavicle and sternum superiorly and lower chest wall inferiorly. The breast tissue was then dissected off the chest wall and pectoralis muscle using electrocautery. It should be noted that the pectoralis fascia was included in both specimens. Dissection was continued toward the axilla. The breast tissue was dissected off the axilla and the axillary compartment not entered. Hemostasis then assured using electrocautery and free ties of Polysorb 3-0. Specimen was passed off the table and sent to pathology as left breast. After assuring adequate hemostasis 2 Zach-Spear drains were placed in the right side 1 in the axilla the 2nd in the lower breast flap. These were brought out through separate stab wound incisions in the anterior axillary line. Was secured to the chest wall using a 3-0 nylon suture. The tubes were then Connected to bulb suctioning. One GENET drain was placed in the left side brought out through a separate stab wound incision in the left anterior axillary line. This was also secured using a 3-0 nylon suture. The tube was also connected to a bulb drain. Both incisions were then closed using interrupted. Skin was then closed using skin nicholas. Sterile dressings were then applied. The patient tolerated the procedure well. Sponge, instrument, and needle counts reported as correct. Patient was transferred to PACU in stable condition. Breast Axillary Dissection Resection was performed within the boundaries of the axillary vein, chest wall (serratus anterior), and latissimus dorsi: Yes The long thoracic and thoracodorsal nerves were spared during dissection: Yes Attempts were made to spare the intercostobrachial nerves during dissection if possible: Yes General Surg. - Synoptic Notes Breast Axillary Dissection Resection was performed within the boundaries of the axillary vein, chest wall (serratus anterior), and latissimus dorsi: Yes The long thoracic and thoracodorsal nerves were spared during dissection: Yes Attempts were made to spare the intercostobrachial nerves during dissection if possible: Yes
[2022-02-19] MEDS: fentaNYL citrate/PF 100 MCG/2 ML VIAL 50 MCG IVPUSH (11:39)
--- NOTE | 2022-02-19 11:47 | PHA.MEDREC ---
Pharmacy Consult ? Medication Reconciliation Pharmacy has reviewed the medication reconciliation done by Dilma.
[2022-02-19] MEDS: Dextrose 5 % and Lactated Ring 1,000 ML 125 ML IVCONT ×2 (12:00→20:15)
[2022-02-19] MEDS: HYDROmorphone HCl 0.5 MG/0.5 ML SYRINGE IVPUSH (12:49)
[2022-02-19] MEDS: oxyCODONE HCl Immed Release 5 MG TABLET PO ×2 (15:24→20:21)
[2022-02-19] MEDS: Dicyclomine HCl 10 MG CAPSULE 20 MG PO ×2 (16:48→21:57)
[2022-02-19] MEDS: Amitriptyline HCl 10 MG TABLET PO (20:22)
[2022-02-19] MEDS: traZODone HCL 100 MG TABLET 300 MG PO (20:22)
[2022-02-19] MEDS: Metoprolol Tartrate 50 MG TABLET PO (20:22)
[2022-02-19] MEDS: Gabapentin 400 MG CAPSULE 800 MG PO (20:23)
[2022-02-20] VITALS (8 sets, daily range): BP systolic 100–139; BP diastolic 56–62; PULSE 70–73; RESP 16–18; TEMP 36.1–37.3; O2SAT 92–98
[2022-02-20] MEDS: oxyCODONE HCl Immed Release 5 MG TABLET PO ×2 (00:15→20:16)
[2022-02-20] MEDS: Dicyclomine HCl 10 MG CAPSULE 20 MG PO ×4 (04:51→22:27)
[2022-02-20] MEDS: Dextrose 5 % and Lactated Ring 1,000 ML 125 ML IVCONT ×2 (05:45→14:28)
[2022-02-20 06:11] LABS: MANUAL DIFF FLAG NO
[2022-02-20 06:20] LABS: Basophils Percent Auto 0.2 % (0-2); Eosinophils Percent Auto 0.1 % (0-4); Hematocrit 34.3 % (37.0-47.0); Hemoglobin 10.8 g/dl (12.0-16.0); Imm Gran Abs Auto 0.04 X10*3/uL (0.00-0.03); Imm Gran Pct Auto 0.4 % (0.0-0.4); Lymphocytes Absolute Auto 1.6 X10*3/uL (1.2-4.9); Lymphocytes Percent Auto 15.7 % (20-40); Mean Corpuscular HGB Conc 31.5 g/dl (31.0-35.0); Mean Corpuscular Hemoglobin 29.8 pg (27.0-33.0); Mean Corpuscular Volume 94.8 fL (80.0-98.0); Mean Platelet Volume 10.3 fL (9.4-12.3); Monocytes Absolute Auto 0.6 X10*3/uL (0.1-1.2); Monocytes Percent Auto 5.9 % (2-11); Neutrophils Absolute Auto 7.7 x10*3/uL (2.0-8.3); Neutrophils Percent Auto 77.7 % (45-73); Platelet Count 317 X10*3/uL (160-400); Red Blood Count 3.62 X10*6/uL (4.20-5.50); Red Cell Distribution Width 13.8 % (11.0-16.0); White Blood Count 9.9 X10*3/uL (4.8-10.8)
[2022-02-20 06:36] LABS: Anion Gap 15 (12-20); Blood Urea Nitrogen 16 mg/dL (9-16); Calcium 8.4 mg/dL (8.4-10.2); Carbon Dioxide 24 mmol/L (22-29); Chloride 104 mmol/L (96-108); Creatinine Clr Calc Pharmacy 52.9; Estimated Glomerular Filt Rate > 60; Glucose Random 161 mg/dL (60-115); Potassium 4.6 mmol/L (3.3-5.1); Sodium 138 mmol/L (135-145)
--- NOTE | 2022-02-20 07:58 | PM.PNGS ---
Subjective Subjective Date of Service: 02/20/22 Interval history: Pod 1 following bilateral mastectomy for right breast recurrence invasive breast cancer. She reports some incisional pain but denies any new symptoms. Physical Exam Vital Signs: Vital Signs: Last Vital Signs Temp 98.4 F 02/20/22 07:07 Pulse 73 02/20/22 07:07 Resp 16 02/20/22 07:07 BP 139/62 02/20/22 07:07 Pulse Ox 98 02/20/22 07:07 O2 Del Method 02/20/22 07:07 O2 Flow Rate 2 02/20/22 07:07 BMI result Body Mass Index 35.9 Const: General: comfortable and no acute distress Nutritional Appearance: well nourished Orientation/consciousness: patient oriented x3 Limitations: no limitations Chest: Other: Incisions clean and intact. GENET is draining serosanguineous fluid. No evidence of hematoma low flaps. Resp: Other: Breathing comfortably on room air, slight cough noted. Skin: Other: Warm, dry, no rash Neuro: General: patient oriented x3 Extrem: Other: no peripheral edema. Objective Data Active Medications Amitriptyline HCl (Amitriptyline Hcl 10 Mg Tablet) 10 mg PO BEDTIME [facility] Last Admin: 02/19/22 20:22 Dose: 10 mg Documented By: HENRY Amlodipine Besylate (Amlodipine Besylate 5 Mg Tablet) 5 mg PO DAILY [facility]; Protocol Atorvastatin Calcium (Atorvastatin Calcium 20 Mg Tablet) 20 mg PO DAILY [facility] Cyclobenzaprine HCl (Cyclobenzaprine Hcl 10 Mg Tablet) 10 mg PO TID PRN PRN Reason: muscle spasm Dicyclomine HCl (Dicyclomine Hcl 10 Mg Capsule) 20 mg PO Q6H [facility] Last Admin: 02/20/22 04:51 Dose: 20 mg Documented By: EDIE Escitalopram Oxalate (Escitalopram Oxalate 10 Mg Tablet) 10 mg PO DAILY [facility] Fentanyl (Fentanyl Citrate/Pf 100 Mcg/2 Ml Vial) 50 mcg IVPUSH Q5M PRN; Protocol PRN Reason: Pain, Severe (Pain Scale 7-10) Last Admin: 02/19/22 11:39 Dose: 50 mcg Documented By: AWAIS Gabapentin (Gabapentin 400 Mg Capsule) 800 mg PO BID [facility] Last Admin: 02/19/22 20:23 Dose: 800 mg Documented By: HENRY Hydromorphone HCl (Hydromorphone Hcl 0.5 Mg/0.5 Ml Syringe) 0.5 mg IVPUSH Q2H PRN; Protocol PRN Reason: Pain, Severe (Pain Scale 7-10) Dextrose/Lactated Ringer's (D5lr) 1,000 mls @ 125 mls/hr IVCONT .Q8H [facility] Last Admin: 02/20/22 05:45 Dose: 125 mls/hr Documented By: EDIE Acetaminophen (irmev) 1,000 mg in 100 mls @ 400 mls/hr IV Q6H [facility] Stop: 02/20/22 10:48 Last Infusion: 02/20/22 05:47 Dose: 0 mls/hr Documented By: EDIE Metoprolol Tartrate (Metoprolol Tartrate 50 Mg Tablet) 50 mg PO BID [facility]; Protocol Last Admin: 02/19/22 20:22 Dose: 50 mg Documented By: HENRY Omeprazole (Omeprazole 20 Mg Capsule.Dr) 20 mg PO DAILY [facility] Ondansetron HCl (Ondansetron Hcl 4 Mg/2 Ml Vial) 4 mg IVPUSH ONCE PRN PRN Reason: Nausea and Vomiting Ondansetron HCl (Ondansetron Hcl 4 Mg/2 Ml Vial) 4 mg IVPUSH QID PRN PRN Reason: Nausea Oxycodone HCl (Oxycodone Hcl Immed Release 5 Mg Tablet) 5 mg PO Q4H PRN PRN Reason: Pain, Moderate (Pain Scale 4-6 Last Admin: 02/20/22 00:15 Dose: 5 mg Documented By: EDIE Polyethylene Glycol (Polyethylene Glycol 3350 17 Gm Powd.Pack) 17 gm PO BID PRN PRN Reason: constipation Sodium Chloride (0.9 % Sodium Chloride Flush 3 Ml Syringe) 3 ml IVFLUSH QSHIFT [facility] Last Admin: 02/20/22 00:18 Dose: Not Given Documented By: EDIE Non-Admin Reason: IV Running Trazodone HCl (Trazodone Hcl 100 Mg Tablet) 300 mg PO BEDTIME [facility] Last Admin: 02/19/22 20:22 Dose: 300 mg Documented By: HENRY Labs CBC & Chem 7: 02/20/22 05:15 02/20/22 05:15 Labs: Laboratory Results - last 24 hr 02/19/22 02/20/22 02/20/22 06:53 05:15 05:15 MCV 94.8 MCH 29.8 MCHC 31.5 RDW 13.8 Plt Count 317 MPV 10.3 Immature Gran % (Auto) 0.4 Neut % (Auto) 77.7 H Lymph % (Auto) 15.7 L Amelia % (Auto) 5.9 Eos % (Auto) 0.1 Baso % (Auto) 0.2 Lymph # (Auto) 1.6 Amelia # (Auto) 0.6 Eos # (Auto) 0.0 Baso # (Auto) 0.0 Abs Immat Gran (auto) 0.04 H Absolute Neuts (auto) 7.7 Absolute Nucleated RBC 0.000 Nucleated RBC % (auto) 0.0 Anion Gap 15 Estim Creat Clear Calc 52.9 Estimated GFR > 60 POC Glucose 121 H Random Glucose 161 H Calcium 8.4 D Procedures Date of Service Date of Service: 02/20/22 Progress Note: A&P Assessment and plan (1) Recurrent malignant neoplasm of right breast: Status: Acute Plan Pod 1 following bilateral mastectomy for invasive breast cancer recurrence on the right side with prophylactic left breast mastectomy. Patient is hemodynamically stable and wounds are clean and intact. Will continue to monitor GENET output. Encourage patient to get out of bed and ambulate. Also encouraged incentive spirometry for cough. Possible discharge in a.m.. Time Spent With Patient Time: Total time spent is greater than 50% in coordination of care (as documented) at patient's floor/unit and/or counseling patient: Quality Stroke Does the patient have a stroke diagnosis?: No VTE Prior VTE?: No VTE Risk Level:: Surgical - moderate VTE Device Contraindication: N/A - Device Ordered VTE Drug Contraindication: Treatment Not Indicated ( at risk for flap bleeding following mastectomy)
[2022-02-20] MEDS: Gabapentin 400 MG CAPSULE 800 MG PO ×2 (08:11→20:11)
[2022-02-20] MEDS: Escitalopram Oxalate 10 MG TABLET PO (08:11)
[2022-02-20] MEDS: Omeprazole 20 MG CAPSULE.DR PO (08:11)
[2022-02-20] MEDS: amLODIPine Besylate 5 MG TABLET PO (08:11)
[2022-02-20] MEDS: Atorvastatin Calcium 20 MG TABLET PO (08:12)
[2022-02-20] MEDS: Metoprolol Tartrate 50 MG TABLET PO ×2 (08:12→20:12)
--- NOTE | 2022-02-20 08:48 | HO.POSTANES ---
Post Anesthesia Evaluation Post Anesthesia Evaluation Vital Signs: Vital Signs Temp Pulse Resp BP Pulse Ox O2 Del Method O2 Flow Rate 02/20/22 07:07 98.4 F 73 16 139/62 98 Nasal Cannula 2 02/20/22 04:00 97 F 70 18 125/62 98 Nasal Cannula 2 02/20/22 00:33 97.5 F 73 18 119/61 98 Nasal Cannula 2 Anesthesia: General Endotracheal-GETA Mental Status: Awake Pain Control: Satisfactory Nausea/Vomiting: None Hydration: Adequate Anesthesia-Related Issues: No Anes. Related Issues
--- NOTE | 2022-02-20 09:26 | MHC.CM.PN ---
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 USES A CANE FOR HOUSEHOLD MOBILITY. +HCP ON FILE AND COVID VAXXED X 3. PT IS OPEN TO [facility] REFERRAL TO [facility] IF NEEDED, REFERRAL SENT. [facility] FROM [facility] WILL APPROVE SN SERVICES IF NEEDED. PCP [facility]OK [facility] DAUGHTER WILL TRANSPORT HOME ON DC.
[2022-02-20] MEDS: HYDROmorphone HCl 0.5 MG/0.5 ML SYRINGE IVPUSH ×2 (13:27→17:44)
[2022-02-20] MEDS: Amitriptyline HCl 10 MG TABLET PO (20:12)
[2022-02-20] MEDS: traZODone HCL 100 MG TABLET 300 MG PO (21:41)
[2022-02-20] MEDS: 0.9 % Sodium Chloride Flush 3 ML SYRINGE IVFLUSH (23:32)
[2022-02-21] VITALS (7 sets, daily range): BP systolic 103–136; BP diastolic 54–74; PULSE 65–78; RESP 16–17; TEMP 36.5–37.1; O2SAT 90–93
[2022-02-21] MEDS: oxyCODONE HCl Immed Release 5 MG TABLET PO (03:30)
[2022-02-21] MEDS: Dicyclomine HCl 10 MG CAPSULE 20 MG PO ×4 (04:46→22:29)
[2022-02-21] MEDS: Gabapentin 400 MG CAPSULE 800 MG PO ×2 (07:32→20:36)
[2022-02-21] MEDS: Metoprolol Tartrate 50 MG TABLET PO ×2 (07:32→20:36)
[2022-02-21] MEDS: Atorvastatin Calcium 20 MG TABLET PO (07:32)
[2022-02-21] MEDS: Escitalopram Oxalate 10 MG TABLET PO (07:32)
[2022-02-21] MEDS: Omeprazole 20 MG CAPSULE.DR PO (07:32)
[2022-02-21 07:33] LABS: Glucose, Whole Blood 101 mg/dL (60-115)
[2022-02-21] MEDS: 0.9 % Sodium Chloride Flush 3 ML SYRINGE IVFLUSH ×3 (07:33→22:29)
[2022-02-21] MEDS: amLODIPine Besylate 5 MG TABLET PO (07:33)
[2022-02-21] MEDS: HYDROmorphone HCl 0.5 MG/0.5 ML SYRINGE IVPUSH ×2 (07:40→19:26)
[2022-02-21] MEDS: HYDROmorphone HCl 2 MG TABLET PO ×2 (11:11→17:30)
[2022-02-21 11:27] LABS: Glucose, Whole Blood 108 mg/dL (60-115)
--- NOTE | 2022-02-21 11:42 | P.PNGS_ITS ---
Subjective Subjective Date of Service: 02/21/22 Interval history: Pod 2 S/P bilateral mastectomy. She reports mainly incisional pain. She has a cough as well but is bringing up some clear phlegm. GENET's are intact and draining serous fluid. Physical Exam Vital Signs: Vital Signs: Last Vital Signs Temp 98.0 F 02/21/22 11:01 Pulse 65 02/21/22 11:01 Resp 16 02/21/22 11:01 BP 120/56 L 02/21/22 11:01 Pulse Ox 91 L 02/21/22 11:01 O2 Del Method 02/21/22 11:01 O2 Flow Rate 2.0 02/20/22 15:41 Oxygen Flow Rate 2 02/20/22 10:48 BMI result Body Mass Index 35.9 Const: General: no acute distress Nutritional Appearance: well nourished Orientation/consciousness: patient oriented x3 Limitations: no limitations Chest: Other: Incisions are clean and intact. GENET drains are intact with serous fluid. No evidence of hematoma or seroma. Skin: General skin exam: no rashes or lesions noted Neuro: General: patient oriented x3 Objective Data Active Medications Amitriptyline HCl (Amitriptyline Hcl 10 Mg Tablet) 10 mg PO BEDTIME [facility] Last Admin: 02/20/22 20:12 Dose: 10 mg Documented By: EFRAIN Amlodipine Besylate (Amlodipine Besylate 5 Mg Tablet) 5 mg PO DAILY [facility]; Protocol Last Admin: 02/21/22 07:33 Dose: 5 mg Documented By: ANNALISA Atorvastatin Calcium (Atorvastatin Calcium 20 Mg Tablet) 20 mg PO DAILY [facility] Last Admin: 02/21/22 07:32 Dose: 20 mg Documented By: ANNALISA Cyclobenzaprine HCl (Cyclobenzaprine Hcl 10 Mg Tablet) 10 mg PO TID PRN PRN Reason: muscle spasm Dicyclomine HCl (Dicyclomine Hcl 10 Mg Capsule) 20 mg PO Q6H [facility] Last Admin: 02/21/22 11:11 Dose: 20 mg Documented By: ANNALISA Escitalopram Oxalate (Escitalopram Oxalate 10 Mg Tablet) 10 mg PO DAILY [facility] Last Admin: 02/21/22 07:32 Dose: 10 mg Documented By: ANNALISA Fentanyl (Fentanyl Citrate/Pf 100 Mcg/2 Ml Vial) 50 mcg IVPUSH Q5M PRN; Protocol PRN Reason: Pain, Severe (Pain Scale 7-10) Last Admin: 02/19/22 11:39 Dose: 50 mcg Documented By: AWAIS Gabapentin (Gabapentin 400 Mg Capsule) 800 mg PO BID [facility] Last Admin: 02/21/22 07:32 Dose: 800 mg Documented By: ANNALISA Hydromorphone HCl (Hydromorphone Hcl 0.5 Mg/0.5 Ml Syringe) 0.5 mg IVPUSH Q2H PRN; Protocol PRN Reason: Pain, Severe (Pain Scale 7-10) Last Admin: 02/21/22 07:40 Dose: 0.5 mg Documented By: ANNALISA Hydromorphone HCl (Hydromorphone Hcl 2 Mg Tablet) 2 mg PO Q4H PRN PRN Reason: Pain, Moderate (Pain Scale 4-6 Last Admin: 02/21/22 11:11 Dose: 2 mg Documented By: ANNALISA Metoprolol Tartrate (Metoprolol Tartrate 50 Mg Tablet) 50 mg PO BID [facility]; Protocol Last Admin: 02/21/22 07:32 Dose: 50 mg Documented By: ANNALISA Omeprazole (Omeprazole 20 Mg Capsule.Dr) 20 mg PO DAILY [facility] Last Admin: 02/21/22 07:32 Dose: 20 mg Documented By: ANNALISA Ondansetron HCl (Ondansetron Hcl 4 Mg/2 Ml Vial) 4 mg IVPUSH ONCE PRN PRN Reason: Nausea and Vomiting Ondansetron HCl (Ondansetron Hcl 4 Mg/2 Ml Vial) 4 mg IVPUSH QID PRN PRN Reason: Nausea Polyethylene Glycol (Polyethylene Glycol 3350 17 Gm Powd.Pack) 17 gm PO BID PRN PRN Reason: constipation Sodium Chloride (0.9 % Sodium Chloride Flush 3 Ml Syringe) 3 ml IVFLUSH QSHIFT [facility] Last Admin: 02/21/22 07:33 Dose: 3 ml Documented By: ANNALISA Trazodone HCl (Trazodone Hcl 100 Mg Tablet) 300 mg PO BEDTIME [facility] Last Admin: 02/20/22 21:41 Dose: 300 mg Documented By: EFRAIN Labs CBC & Chem 7: 02/20/22 05:15 02/20/22 05:15 Labs: Laboratory Results - last 24 hr 02/21/22 02/21/22 07:28 11:03 POC Glucose 101 108 Procedures Date of Service Date of Service: 02/21/22 Progress Note: A&P Assessment and plan (1) Recurrent malignant neoplasm of right breast: Status: Acute Plan Pod 2. Bilateral mastectomy. Patient remains stable but still has incisional soreness as expected. Will switch medications to Dilaudid p.o.. Attempt to wean off IV pain medications. Patient will need this day for another day, possible discharge to home tomorrow. Time Spent With Patient Time: Total time spent is greater than 50% in coordination of care (as documented) at patient's floor/unit and/or counseling patient: No Severe Sepsis: No Severe Sepsis Quality Stroke Does the patient have a stroke diagnosis?: No VTE Prior VTE?: No VTE Risk Level:: Surgical - moderate VTE Device Contraindication: N/A - Device Ordered VTE Drug Contraindication: Treatment Not Indicated ( at risk for flap bleeding following mastectomy)
[2022-02-21] MEDS: Amitriptyline HCl 10 MG TABLET PO (20:36)
[2022-02-21] MEDS: traZODone HCL 100 MG TABLET 300 MG PO (20:36)
[2022-02-22 03:23] VITALS: BP 110/80; PULSE 63; RESP 16; TEMP 36.6; O2SAT 94
[2022-02-22] MEDS: Dicyclomine HCl 10 MG CAPSULE 20 MG PO ×2 (04:49→11:35)
[2022-02-22] MEDS: HYDROmorphone HCl 0.5 MG/0.5 ML SYRINGE IVPUSH (05:05)
[2022-02-22 07:38] VITALS: BP 119/60; PULSE 67; RESP 17; TEMP 36.8; O2SAT 93
--- NOTE | 2022-02-22 08:14 | W.MHC.F2F ---
Service Date Service Date: 02/22/22 Encounter Date of encounter: 02/22/22 Reasons for Services Signs and symptoms assessed: Dressings changed, GENET output evaluated Reason for intermediate: wound care Reason for physical therapy: home safety and mobility and therapeutic exercises Homebound: Leaving the home is medically contraindicated at this time without the asist of a device and/or another person due th the listed conditions above and below. Reason homebound: unsteady gait / fall risk and weakness related to hospital stay Homebound supporting statement: s/p bilateral mastectomy with bilateral GENET drains. Patient needs assistance with drain care, wound assessment. Certification: Based on the above findings, I certify that this patient is confined to the home and needs intermittent intermediate care, physical therapy and/or speech therapy, or continues to need occupational therapy. The patient is under my care, and I have initiated the establishment of the plan of care. The patient will be followed by a physician who will periodically review the plan of care.
--- NOTE | 2022-02-22 08:16 | PM.DS ---
DS: Providers Provider Date of Service: 02/22/22 Date of admission: 02/19/22 07:08 Date of discharge: 02/22/22 Primary care physician: Milan Mcgraw PA-C Admitting clinician: Renard Malik Discharging clinician: Renard Malik DS: Diagnosis Discharge Diagnosis (1) Recurrent malignant neoplasm of right breast: Status: Acute DS: Summary Hospital Course Hospital Course: 71-year-old female patient presenting for evaluation of a new suspicious density in the right breast.? 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 Quezada.? She, now presents with a new suspicious density in the right breast noted on the routine mammogram of 01/26/2022.? Subsequent ultrasound revealed a suspicious density in the right breast in the 9 o'clock position measuring just under 1.5 cm in diameter.? Findings were felt to be suspicious for malignancy and biopsy recommended.? She underwent an ultrasound-guided core biopsy on 01/31/2022. Pathology revealed invasive carcinoma with mixed ductal and lobular features, grade 2, ER/NY positive, HER2 Smooth negative, proliferation index high. On examination the patient was found to have a palpable mass in the 9 o'clock position of the right breast but no overlying skin changes or nipple discharge. No suspicious findings were identified on the left side. Her menarche was at the age of 9.? She is and underwent TAHBSO in the 80s.? Family history is significant for a daughter, and 2 sisters with breast cancer.?? Because of her previous right breast cancer with radiation therapy, a right breast mastectomy was recommended. The patient requested a prophylactic left mastectomy as well do her fear of recurrent breast cancer. She was subsequently taken to the OR on 02/19/2022 for a right breast modified radical mastectomy and left breast simple mastectomy. She tolerated the procedure well. Two Zach-Spear drains were left in place on the right side in 1 on the left side. She mainly complained of incisional pain postoperatively but was started on a regular diet and tolerated this well. Initially the GENET output was sanguinous but over the next 24 hours became more serosanguineous and then serous by the 3rd postoperative day. Patient's pain control was much improved after switching her oxycodone to Dilaudid p.o.. She was able to get out of bed and ambulate. Patient was discharged to home on 02/22/2022. Discharge instructions were to record the GENET output on a daily basis. A referral was made for visiting nurses. She was encouraged to ambulate on a daily basis but avoid heavy lifting. I have asked her to return to the office in 1 week for wound examination and staple removal. She should call sooner for fever, chills, nausea, vomiting, difficulty with the drains or incisions. Time spent discussing smoking cessation with patient: 3 to 10 minutes Time Spent with Patient Time attestation: Total time spent providing and/or coordinating discharge services: Discharge coordination time: Less than 30 minutes Quality: Safe Use of Opioids Does Pt have an Active Cancer Diagnosis on the Problem List?: Yes Opioid Measure Date for [facility] Report: 01/24/22 Opioid Measure Time for [facility] Report: 16:12 Quality: Stroke Does the patient have a stroke diagnosis?: No Physical Exam Vital Signs: Vital Signs: Last Vital Signs Temp 98.3 F 02/22/22 07:38 Pulse 67 02/22/22 07:38 Resp 17 02/22/22 07:38 BP 119/60 02/22/22 07:38 Pulse Ox 93 02/22/22 07:38 O2 Del Method 02/22/22 07:38 O2 Flow Rate 2.0 02/20/22 15:41 Oxygen Flow Rate 2 02/20/22 10:48 BMI result Body Mass Index 35.9 Const: General: no acute distress and well developed Nutritional Appearance: well nourished Orientation/consciousness: patient oriented x3 Chest: Other: Dressings changed wounds found to be clean, dry, and intact. Zach-Spear drains are intact as well draining serous fluid bilaterally. Resp: Other: Breathing comfortably on room air. Skin: Other: Warm, dry, no rash Neuro: General: patient oriented x3 Extrem: Other: No peripheral edema DS: Data Data Completed and Pending Pending studies at discharge: Pending at discharge 02/19/22 09:53 Surgical [PTH] Routine Labs on day of discharge: Laboratory Results - last 24 hr 02/21/22 11:03 POC Glucose 108 Discharge Plan Discharge Anticipated Discharge Date/Time: 02/22/22 08:06 Patient Disposition: Home Health Service Discharge Diagnosis: Recurrent right breast cancer Referrals: Sandra FARRELL [Outside] - 1 Day (Alf and Physical therapy. A nurse will reach out to you to set up visits.) Milan Mcgraw PA-C [Primary Care Provider] - 1 Week Renard Malik MD [Physician] - 1 Week Discharge Medications: New oxycodone 5 mg tablet 5 mg PO Q6H PRN (Reason: pain (scale score 7-10)) Qty: 20 0RF Rx Instructions: Partial Fill upon patient request. Continued (DME) blood-glucose meter [FreeStyle Lite Meter] Kit See Rx Instructions .ROUTE .MEDSUPPLY Qty: 1 0RF Rx Instructions: As directed oxycodone 5 mg tablet 5 mg PO Q12H PRN (Reason: Pain) polyethylene glycol 3350 [Miralax] 17 gram/dose powder 17 g PO BID PRN (Reason: constipation) Qty: 119 0RF amitriptyline 10 mg tablet 10 mg PO BEDTIME Qty: 90 1RF (DME) lancets [FreeStyle Lancets] 28 gauge misc See Rx Instructions .ROUTE .MEDSUPPLY Qty: 100 3RF Rx Instructions: As directed (DME) FreeStyle Lite Strips Strip See Rx Instructions .ROUTE .MEDSUPPLY Qty: 100 3RF Rx Instructions: As directed acetaminophen 650 mg tablet extended release 650 mg PO Q12H 90 Days Qty: 180 1RF amlodipine 5 mg tablet 5 mg PO DAILY Qty: 90 1RF atorvastatin 20 mg tablet 20 mg PO DAILY Qty: 90 1RF citalopram 20 mg tablet 20 mg PO DAILY Qty: 90 1RF cyclobenzaprine 10 mg tablet 10 mg PO TID PRN (Reason: muscle spasm) 15 Days Qty: 45 3RF gabapentin 800 mg tablet 800 mg PO BID 30 Days Qty: 60 3RF dicyclomine 10 mg capsule 20 mg PO Q6H 30 Days Qty: 240 0RF ibuprofen 800 mg tablet 800 mg PO Q8H 90 Days Qty: 270 1RF metoprolol tartrate 50 mg tablet 50 mg PO BID Qty: 180 2RF loperamide 2 mg capsule 2 - 4 mg PO QID PRN (Reason: loose stool) 15 Days Qty: 60 0RF omeprazole 20 mg capsule,delayed release(DR/EC) 20 mg PO DAILY 90 Days Qty: 90 1RF trazodone 100 mg tablet 300 mg PO BEDTIME 90 Days Qty: 270 2RF nystatin 100,000 unit/gram powder 1 appl topical DAILY 30 Days Qty: 60 0RF Discharge Orders: Discharge Order (Routine); Ordered 02/22/22 Ordered By: Renard Malik Diet: Diabetic diet Activity on Discharge: As tolerated Stand Alone Forms: Patient Portal Discharge page Care Plan Goals: Return to normal activity Health Concerns: Right breast cancer Plan of Treatment: Bilateral mastectomy Assessment: Invasive breast cancer, right breast Discharge Date/Time: 02/22/22 13:15
[2022-02-22] MEDS: amLODIPine Besylate 5 MG TABLET PO (08:45)
[2022-02-22] MEDS: Gabapentin 400 MG CAPSULE 800 MG PO (08:45)
[2022-02-22] MEDS: Omeprazole 20 MG CAPSULE.DR PO (08:45)
[2022-02-22] MEDS: Atorvastatin Calcium 20 MG TABLET PO (08:45)
[2022-02-22] MEDS: Metoprolol Tartrate 50 MG TABLET PO (08:45)
[2022-02-22] MEDS: 0.9 % Sodium Chloride Flush 3 ML SYRINGE IVFLUSH (08:45)
[2022-02-22] MEDS: Escitalopram Oxalate 10 MG TABLET PO (08:45)
[2022-02-22] MEDS: HYDROmorphone HCl 2 MG TABLET PO (08:59)
--- NOTE | 2022-02-22 09:00 | P.PNGS_ITS ---
Subjective Subjective Date of Service: 02/22/22 Interval history: Patient reports pain in the incision but generally feels improved. She denies any new complaints. Physical Exam Vital Signs: Vital Signs: Last Vital Signs Temp 98.3 F 02/22/22 07:38 Pulse 67 02/22/22 07:38 Resp 17 02/22/22 07:38 BP 119/60 02/22/22 07:38 Pulse Ox 93 02/22/22 07:38 O2 Del Method 02/22/22 07:38 O2 Flow Rate 2.0 02/20/22 15:41 Oxygen Flow Rate 2 02/20/22 10:48 BMI result Body Mass Index 35.9 Const: General: no acute distress and well developed Nutritional Appearance: well nourished Orientation/consciousness: patient oriented x3 Chest: Other: Dressings changed wounds found to be clean, dry, and intact. Zach-Spear drains are intact as well draining serous fluid bilaterally. Resp: Other: Breathing comfortably on room air. Skin: Other: Warm, dry, no rash Neuro: General: patient oriented x3 Extrem: Other: No peripheral edema Objective Data Active Medications Amitriptyline HCl (Amitriptyline Hcl 10 Mg Tablet) 10 mg PO BEDTIME [facility] Last Admin: 02/21/22 20:36 Dose: 10 mg Documented By: EFRAIN Amlodipine Besylate (Amlodipine Besylate 5 Mg Tablet) 5 mg PO DAILY [facility]; Protocol Last Admin: 02/22/22 08:45 Dose: 5 mg Documented By: XIOMARA Atorvastatin Calcium (Atorvastatin Calcium 20 Mg Tablet) 20 mg PO DAILY [facility] Last Admin: 02/22/22 08:45 Dose: 20 mg Documented By: XIOMARA Cyclobenzaprine HCl (Cyclobenzaprine Hcl 10 Mg Tablet) 10 mg PO TID PRN PRN Reason: muscle spasm Dicyclomine HCl (Dicyclomine Hcl 10 Mg Capsule) 20 mg PO Q6H [facility] Last Admin: 02/22/22 04:49 Dose: 20 mg Documented By: EFRAIN Escitalopram Oxalate (Escitalopram Oxalate 10 Mg Tablet) 10 mg PO DAILY [facility] Last Admin: 02/22/22 08:45 Dose: 10 mg Documented By: XIOMARA Gabapentin (Gabapentin 400 Mg Capsule) 800 mg PO BID [facility] Last Admin: 02/22/22 08:45 Dose: 800 mg Documented By: XIOMARA Hydromorphone HCl (Hydromorphone Hcl 2 Mg Tablet) 2 mg PO Q4H PRN PRN Reason: Pain, Moderate (Pain Scale 4-6 Last Admin: 02/22/22 08:59 Dose: 2 mg Documented By: XIOMARA Metoprolol Tartrate (Metoprolol Tartrate 50 Mg Tablet) 50 mg PO BID [facility]; Protocol Last Admin: 02/22/22 08:45 Dose: 50 mg Documented By: XIOMARA Omeprazole (Omeprazole 20 Mg Capsule.Dr) 20 mg PO DAILY [facility] Last Admin: 02/22/22 08:45 Dose: 20 mg Documented By: XOIMARA Ondansetron HCl (Ondansetron Hcl 4 Mg/2 Ml Vial) 4 mg IVPUSH QID PRN PRN Reason: Nausea Polyethylene Glycol (Polyethylene Glycol 3350 17 Gm Powd.Pack) 17 gm PO BID PRN PRN Reason: constipation Sodium Chloride (0.9 % Sodium Chloride Flush 3 Ml Syringe) 3 ml IVFLUSH QSHIFT [facility] Last Admin: 02/22/22 08:45 Dose: 3 ml Documented By: XIOMARA Trazodone HCl (Trazodone Hcl 100 Mg Tablet) 300 mg PO BEDTIME [facility] Last Admin: 02/21/22 20:36 Dose: 300 mg Documented By: EFRAIN Labs CBC & Chem 7: 02/20/22 05:15 02/20/22 05:15 Labs: Laboratory Results - last 24 hr 02/21/22 11:03 POC Glucose 108 Procedures Date of Service Date of Service: 02/22/22 Progress Note: A&P Assessment and plan (1) Recurrent malignant neoplasm of right breast: Status: Acute Plan Pod 3 following right modified radical mastectomy and left simple mastectomy for recurrent left breast cancer. She feels improved but still has some incisional pain. Dressings were changed today and her wounds were found to be clean and intact without hematoma, erythema, or skin necrosis. Zach-Spear drains are draining mainly serous fluid will need to be left in place for least another week. She will be discharged to home with follow-up in the office in approximately 1 week. She should call for any fever, chills, increased pain, nausea or vomiting. The patient previously was on oxycodone twice daily. She will be given an additional prescription for oxycodone for her postoperative pain. Time Spent With Patient Time: Total time spent is greater than 50% in coordination of care (as documented) at patient's floor/unit and/or counseling patient: Quality Stroke Does the patient have a stroke diagnosis?: No VTE Prior VTE?: No VTE Risk Level:: Surgical - moderate VTE Device Contraindication: N/A - Device Ordered VTE Drug Contraindication: Treatment Not Indicated ( at risk for flap bleeding following mastectomy)
--- NOTE | 2022-02-22 09:14 | MHC.CM.PN ---
PT MEDICALLY CLEARED FOR DC HOME WITH SN AND PT WITH WITH [facility]. DAUGHTER WILL TRANSPORT.
[2022-02-22 11:05] VITALS: BP 108/58; PULSE 64; RESP 17; TEMP 37.2; O2SAT 92
[2022-02-22] MEDS: Cyclobenzaprine HCl 10 MG TABLET PO (11:35)
== END 2022-02-22 13:15 | disposition home health service (06) | DRG 581 ==
LOC: HO.SSSA 07:20 → HO.S3 15:29
PROVIDERS: Nurse Practitioner; Admitting Provider Surgery; PCP Physician Assistant; Visit Provider Surgery
PROC: 0HTV0ZZ Resection of Bilateral Breast, Open Approach (ICD-10-PCS; CPT 19307; principal; 2022-02-19 07:30)
PROC: 0HTV0ZZ Resection of Bilateral Breast, Open Approach (ICD-10-PCS; CPT 19303; 2022-02-19 07:30)
DX: C50.911 Malignant neoplasm of unspecified site of right female breast (principal); M19.90 Unspecified osteoarthritis, unspecified site; K21.9 Gastro-esophageal reflux disease without esophagitis; I10 Essential (primary) hypertension; Z20.822 Contact with and (suspected) exposure to COVID-19; Z79.899 Other long term (current) drug therapy
CPT/HCPCS: 36415; 80048; 82947; 85025; 85027; 86850; 86900; 86901; 87635; 88307; 88309; 93005; J0131; J0690; J1100; J1170; J2250; J2405; J2795; J3010

== ENCOUNTER 2022-03-02 09:36 | Inpatient (IN) | payer OTHER, SELFPAY ==
[2022-03-02] VITALS (8 sets, daily range): BP systolic 104–148; BP diastolic 53–80; PULSE 85–104; RESP 20–35; TEMP 37.1–39.4; O2SAT 92–98; BMI 29.5
--- NOTE | ~2022-03-02 | CT_ITS ---
EXAMINATION: CT ABDOMEN AND PELVIS WITH CONTRAST CLINICAL INFORMATION: Postop mastectomy. Fever. COMPARISON: Previous CT of the abdomen and pelvis January 2020 TECHNIQUE: Multidetector volumetric images were obtained from the superior aspect of the liver through the pubic symphysis following administration 85 mL of Omnipaque 350 intravenous contrast. Sagittal and coronal reformatted images were obtained on the technologist's workstation. Oral contrast: Yes This CT examination was performed using dose optimization techniques as appropriate, variously including the following: *Automated exposure control *Adjustment of mA and/or kV according to patient size (this includes techniques or standardized protocols for targeted exams where dose is matched to indication/reason for exam; i.e. extremities or head) *Use of iterative reconstruction technique DLP: 806 mGy-cm FINDINGS: LUNG BASES: The visualized lung bases are unremarkable. LIVER, GALLBLADDER, AND BILIARY TREE: The liver is normal in size, shape, and attenuation. No focal hepatic lesion. The gallbladder is been removed. There is mild intra and extrahepatic biliary duct dilatation. Common bile duct measures up to 1.5 cm. This does not appear appreciably changed from prior exams. PANCREAS: Unremarkable. SPLEEN: Unremarkable. ADRENAL GLANDS: Unremarkable. KIDNEYS AND URETERS: Bilateral renal cysts. No imaging follow-up. Kidneys otherwise unremarkable. BLADDER: Unremarkable. GASTROINTESTINAL TRACT: There is diverticulosis of the colon. There is stool throughout the colon questionable for constipation. No evidence of diverticulitis. Fluid-filled slightly distended loops of small bowel probably representing an ileus. No transition zone to suggest mechanical obstruction. Appendix not seen. No ascites. No free air. Small esophageal hernia. ABDOMINAL WALL: No significant hernia is appreciated. LYMPH NODES: Normal. VASCULAR: Unremarkable. PELVIC VISCERA: Uterus appears to have been removed. No pelvic mass. OSSEOUS STRUCTURES: Degenerative changes of the spine. CT/CT abdomen pelvis w IV con IMPRESSION: Diverticulosis and constipation. Fluid-filled distended loops of small bowel probably representing an ileus. Bilateral renal cysts. Mild intra and extrahepatic biliary duct dilatation similar to previous exams probably normal postcholecystectomy Fleischner guidelines were followed.
--- NOTE | ~2022-03-02 | CT_ITS ---
EXAMINATION: CT ANGIOGRAM OF THE CHEST WITH AND WITHOUT CONTRAST (CT PULMONARY ANGIOGRAM FOR PE) CLINICAL INFORMATION: Reason for Exam SOB, post masectomy COMPARISON: Previous chest x-ray most recent September 2021 and chest CTA March 2016 TECHNIQUE: Prior to contrast administration, noncontrast localization images were obtained. Subsequently, multidetector volumetric imaging was performed from the thoracic inlet to below the diaphragms following the administration of 85 mL Omnipaque 350 intravenous contrast. No contrast reaction reported Sagittal, coronal, and MIP oblique sagittal reformatted images were obtained on the CT workstation, uploaded to PACS, and reviewed. This CT examination was performed using dose optimization techniques as appropriate, variously including the following: *Automated exposure control *Adjustment of mA and/or kV according to patient size (this includes techniques or standardized protocols for targeted exams where dose is matched to indication/reason for exam; i.e. extremities or head) *Use of iterative reconstruction technique Total exam dose-length product 370 mGy-cm FINDINGS: QUALITY OF STUDY/CONTRAST BOLUS: Satisfactory. PULMONARY ARTERIES: Evaluation for pulmonary embolism is limited due to artifact from respiratory motion. No large central or segmental pulmonary emboli. THORACIC AORTA: No aneurysm or dissection. LUNG: No focal consolidation, nodules or masses. PLEURA: No pleural effusion or pneumothorax. MEDIASTINUM: The heart is enlarged. No pericardial effusion. No hilar or mediastinal lymphadenopathy. No evidence of septal bowing or right heart strain. There may be a small esophageal hernia. CHEST WALL/AXILLA: There are postsurgical changes following bilateral mastectomy. There is a drain in the right chest wall. No fluid collection is seen on the right. There is a drain left chest wall There is a large fluid collection with air-fluid level. This measures 2 cm in thickness, 13 cm in AP dimension and roughly 4.5 cm in longitudinal dimension. OSSEOUS STRUCTURES: No acute or suspicious osseous abnormality. Degenerative changes of the spine. UPPER ABDOMEN: Unremarkable. No reflux of contrast into the hepatic veins to suggest elevated right heart pressures. CT/CT angio chest PE protocol IMPRESSION: Limited exam due to respiratory motion artifact. No evidence of large or central pulmonary embolism. Evaluation of smaller segmental and subsegmental pulmonary arteries is limited. No evidence of pneumonia. No pleural effusion. Enlarged heart. Postsurgical changes following bilateral mastectomy. Fluid collection in the left chest wall as described above. VTE: negative
--- NOTE | 2022-03-02 09:50 | ECG_ITS ---
Test Reason : TACHYCARDIA/WEAKNESS Blood Pressure : / mmHG Vent. Rate : 102 BPM Atrial Rate : 102 BPM P-R Int : 118 ms QRS Dur : 076 ms QT Int : 354 ms P-R-T Axes : 027 -27 005 degrees QTc Int : 461 ms Sinus tachycardia Nonspecific T wave abnormality Abnormal ECG When compared with ECG of 19-FEB-2022 07:11, Nonspecific T wave abnormality is now Present Heart rate has increased Referred By: Amira Alvarez Electronically Signed By:ALLI MERINO
--- NOTE | 2022-03-02 09:50 | ED.GENADULT ---
HPI - General Adult General Chief complaint: General Medical Stated complaint: sepsis Time Seen by Provider: 03/02/22 09:50 Source: patient, family (daughter), EMS and diplomatic interpreter/translator Mode of arrival: EMS Limitations: language barrier and altered mental status History of Present Illness HPI narrative: Patient is a 71 year old female presenting to the emergency department today with a fever, weakness, and confusion. Patient's daughter states that the patient had a bilateral mastectomy a week ago, here. Patient's daughter states that the patient was seen by the surgeon a few days ago and everything was OK. Patient's daughter states that starting yesterday, the patient began to have a fever and seemed a bit more confused. Patient denies any dizziness, lightheadedness, abdominal pain, nausea, vomiting, chills, blurry vision, double vision, loss of vision, chest pain, difficulty breathing, shortness of breath, back pain, night sweats, pain with urination, increased urinary frequency, increased urinary urgency, blood in her urine or stool, syncope or a near syncopal episode, recent trauma or falls, bowel incontinence, bladder incontinence, bowel retention, bladder retention, or any other complaints at this time. Onset (ago): day(s) (1) Severity: moderate Severity scale (1-10): 5 Relieving factors: none Exacerbating factors: none Associated symptoms: confusion and fever/chills Treatments prior to arrival: none Related Data Home Medications Medication Instructions Recorded Confirmed oxycodone 5 mg tablet 10 mg PO Q6H PRN Severe Pain 02/19/22 03/02/22 (Scale Score 7-10) loperamide 2 mg capsule 2 mg PO QID 03/02/22 03/02/22 Previous Rx's Medication Instructions Recorded blood-glucose meter (FreeStyle #1 ea 05/25/20 Lite Meter kit) blood sugar diagnostic (FreeStyle #100 ea 07/25/21 Lite Strips) lancets 28 gauge (FreeStyle #100 ea 07/25/21 Lancets) amitriptyline 10 mg tablet 10 mg PO BEDTIME #90 tabs 08/24/21 polyethylene glycol 3350 17 17 g PO BID PRN constipation #119 09/29/21 gram/dose oral powder (Miralax) grams acetaminophen 650 mg 650 mg PO Q12H 90 days #180 tabs 01/24/22 tablet,extended release amlodipine 5 mg tablet 5 mg PO DAILY #90 tabs 01/24/22 atorvastatin 20 mg tablet 20 mg PO DAILY #90 tabs 01/24/22 citalopram 20 mg tablet 20 mg PO DAILY #90 tabs 01/24/22 cyclobenzaprine 10 mg tablet 10 mg PO TID PRN muscle spasm 15 01/24/22 days #45 tabs dicyclomine 10 mg capsule 20 mg PO Q6H cramps 30 days #240 01/24/22 caps gabapentin 800 mg tablet 800 mg PO BID 30 days #60 tabs 01/24/22 ibuprofen 800 mg tablet 800 mg PO Q8H Pain 90 days #270 01/24/22 tabs metoprolol tartrate 50 mg tablet 50 mg PO BID #180 tabs 01/24/22 omeprazole 20 mg capsule,delayed 20 mg PO DAILY 90 days #90 caps 01/24/22 release trazodone 100 mg tablet 300 mg PO BEDTIME 90 days #270 tabs 01/24/22 oxycodone 5 mg tablet 5 mg PO Q6H PRN pain (scale score 02/27/22 7-10) #20 tabs Allergies Allergy/AdvReac Type Severity Reaction Status Date / Time No Known Allergies Allergy Verified 02/27/22 10:36 [No Known Allergies*] Review of Systems Constitutional: Constitutional: Reports no additional constitutional complaints, Denies chills, Reports fever(s) and Denies night sweats Eyes: Eyes: Reports no additional eye complaints, Denies blurry vision, Denies change in vision, Denies diplopia, Denies eye discharge, Denies loss of vision and Denies eye pain ENT: Denies dizziness Cardiovascular: Cardiovascular: Reports no additional cardiovascular complaints, Denies chest pain, Denies lightheadedness, Denies Loss of Consciousness and Denies dyspnea Respiratory: Respiratory: Reports no additional respiratory complaints and Denies dyspnea Gastrointestinal: Gastrointestinal: Reports no additional gastrointestinal complaints, Denies abdominal pain, Denies melena, Denies hematochezia, Denies change in bowel habits and Denies change in stool character Genitourinary: Genitourinary: Denies hematuria, Denies urinary frequency, Denies dysuria, Denies urinary incontinence, Denies urinary hesitancy and Denies urinary urgency Musculoskeletal: Musculoskeletal: Reports no additional musculoskeletal complaints, Denies numbness and Denies tingling Comments: drains present in bilateral chest baxter Neurologic: Reports confusion, Denies dizziness, Denies loss of vision, Denies numbness and Denies tingling Psychiatric: Psychiatric: Reports no additional psychiatric complaints and Reports confusion Endocrine: Endocrine: Reports no additional endocrine complaints Hematologic/Lymphatic: Hematologic/Lymphatic: Reports no additional hematologic/lymphatic complaints Allergic/Immunologic: Allergic/Immunologic: Reports no additional allergic/immunologic complaints PMFSH Past Medical History Attestation statement: The following information was validated with the patient. (all information validated with the patient's daughter) Source: old records reviewed and obtained from family (patient's daughter) Medical History Arthritis Depression Diabetes 1.5, managed as type 2 GERD (gastroesophageal reflux disease) HTN (hypertension) IBS (irritable bowel syndrome) Traumatic complete tear of right rotator cuff Surgical History History of bilateral mastectomy (02/19/22) History of colonoscopy History of esophagogastroduodenoscopy (EGD) History of lumbar fusion History of lumpectomy of both breasts History of surgery Hx of appendectomy Hx of blepharoplasty Hx of cholecystectomy S/P [id number] (total abdominal hysterectomy and bilateral salpingo-oophorectomy) Family History Family History Father No problems noted. Mother Heart disease Hypertension Colon cancer Maternal Grandmother Esophageal cancer Daughter Breast cancer Brother Colon cancer Sister Breast cancer Sister Breast cancer, Onset Age: 60 Social History Social History Household Members: None Housing: Apartment Are you a primary care management assistant to a significant other at home: No Do you presently have visiting nurse or other home services: No Alcohol intake: unknown Patient Tobacco Use Status: Never used Tobacco e-Cigarette/Vaping Use: Never Used Second Hand Smoke Exposure: No Use of substances other than those prescribed or required for medical reasons: Unknown Advance Directives: Yes Advance Directives on File: Yes Advance Directives Date on File: 09/26/21 service: No Current occupational status: disabled 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) Hearing needs: No Vision needs: Yes Physical Exam ED Vital Signs: Vital Signs - 24 hr 03/02/22 09:42 03/02/22 10:38 03/02/22 12:18 Temperature 101.1 F H 100.2 F 103 F H Pulse Rate 98 95 99 Respiratory Rate 22 H 35 H 25 H Blood Pressure 126/74 148/80 H 147/53 H Pulse Oximetry 95 96 98 Oxygen Delivery Method Room Air Room Air 03/02/22 14:39 03/02/22 16:27 Temperature 99.2 F 98.8 F Pulse Rate 89 88 Respiratory Rate 23 H 20 Blood Pressure 104/80 135/62 Pulse Oximetry 94 95 Oxygen Delivery Method Room Air Room Air BMI result Body Mass Index 29.5 Const General: confusion Nutritional Appearance: well nourished Orientation/consciousness: confusion Limitations: no limitations HENMT Head: Yes normal to inspection and Yes atraumatic Ears: hearing grossly normal bilaterally and external ears normal General nose exam: Normal external nose present, no nasal discharge noted and no epistaxis Face and sinus: Yes normal facial exam, No abrasion and No laceration Mouth: Normal oral and palatal mucosa present, no drooling and no muffled voice Eyes General: appearance normal, both eyes and all related structures Periorbital: periorbital findings normal Eyelids: Yes eyelids normal Conjunctivae: conjunctivae normal Pupils: Equal, round and reactive pupils present EOM: EOMs intact bilaterally Neck Neck: Yes normal visual inspection, Yes full ROM and Yes no lymphadenopathy Chest Other: 1 drain present in right chest wall, draining well. 2 drains present in left chest wall, not draining well. Resp Effort & Inspection: normal respiratory effort and able to speak in complete sentences Auscultation: clear to auscultation bilaterally Cardio Rate: tachycardic Rhythm: regular rhythm GI Inspection: Yes normal to inspection Neuro General: confusion Cranial nerves: Yes Equal, round and reactive pupils present Cognition (Neuro): normal cognition Motor exam (neuro): 5/5 motor strength present throughout Sensory Exam: Normal double simultaneous stimulation for sensation Coordination: [id number] test normal Extrem General: Yes normal to inspection, Yes full ROM and Yes capillary refill normal Psych Appearance: grossly normal Speech and movement: Normal speech and movement present Affect: Indifferent affect present Attitude: cooperative Insight: Limited insight present (Psych) Judgement: Limited judgement present (Psych) Medical Decision Making MDM Narrative Medical decision making narrative: Patient is a 71 year old female presenting to the emergency department today with a fever post bilateral mastectomy. Patient's physical exam was as noted earlier in this chart including tachycardia, fever, a post-surgical drains. Patient's blood work showed a markedly elevated WBC count of 24.3. Patient's urine showed a possible urinary infection however, the patient has no urinary complaints at this time - will wait for culture to confirm. At 1015 I considered the patient to be septic. Patient was given IV Cefazolin and 30mg/kg NS bolus. Patient's EKG was unremarkable. Patient's CT abdomen pelvis showed fluid filled distended loops of bowel possibly representing an ileus. Patient's CTA chest showed no PE but did show a fluid collection in the left chest. Dr. Malik evaluated the patient at bed side and expelled pus from the left chest. He recommended admission to medicine. I spoke to medicine who agreed to admission of the patient. I explained my physical exam findings as well as all test results to the patient and the patient's daughter. I answered all questions asked by the patient and the patient's daughter. Patient and the patient's daughter verbalized agreement and understanding with this treatment plan and admission. Medical Records Medical records reviewed: Yes I reviewed the patient's medical records. Lab Data Lab results reviewed: Yes I reviewed the patient's lab results. Result diagrams: 03/02/22 10:19 03/02/22 11:02 Labs: Lab Results 03/02/22 03/02/22 03/02/22 Range/Units 10:18 10:19 10:46 WBC 24.3 H (4.8-10.8) X10*3/uL RBC 3.90 L (4.20-5.50) X10*6/uL Hgb 11.9 L (12.0-16.0) g/dl Hct 35.3 L (37.0-47.0) % MCV 90.5 (80.0-98.0) fL MCH 30.5 (27.0-33.0) pg MCHC 33.7 (31.0-35.0) g/dl RDW 14.1 (11.0-16.0) % Plt Count 428 H D (160-400) X10*3/uL MPV 9.4 (9.4-12.3) fL Immature Gran % (Auto) 0.5 H (0.0-0.4) % Neut % (Auto) 89.9 H (45-73) % Lymph % (Auto) 4.1 L (20-40) % [place] % (Auto) 5.1 (2-11) % Eos % (Auto) 0.2 (0-4) % Baso % (Auto) 0.2 (0-2) % Lymph # (Auto) 1.0 L (1.2-4.9) X10*3/uL [place] # (Auto) 1.2 (0.1-1.2) X10*3/uL Eos # (Auto) 0.1 (0.0-0.4) X10*3/uL Baso # (Auto) 0.1 (0.0-0.2) X10*3/uL Abs Immat Gran (auto) 0.11 H (0.00-0.03) X10*3/uL Absolute Neuts (auto) 21.9 H (2.0-8.3) x10*3/uL Absolute Nucleated RBC 0.000 (0.0-0.012) X10*3/uL Nucleated RBC % (auto) 0.0 (0.0-0.2) /100WBC Smear Tech's Comments VERIFIED Sodium (135-145) mmol/L Potassium (3.3-5.1) mmol/L Chloride (96-108) mmol/L Carbon Dioxide (22-29) mmol/L Anion Gap (12-20) BUN (9-16) mg/dL Creatinine (0.5-1.4) mg/dL Estim Creat Clear Calc Estimated GFR Random Glucose (60-115) mg/dL Lactic Acid 1.4 (0.5-2.0) mmol/L Calcium (8.4-10.2) mg/dL Magnesium (1.6-2.6) mg/dL Total Bilirubin (0.0-1.0) mg/dL AST (5-31) U/L ALT (0-31) U/L Alkaline Phosphatase (39-117) U/L Total Protein (6.5-8.0) g/dL Albumin (3.5-5.0) g/dL Urine Color Urine Appearance Urine pH (5.0-9.0) Ur Specific [place] (1.005-1.025) Urine Protein (Neg-Trace) mg/dL Urine Glucose (UA) (Negative) mg/dL Urine Ketones (Negative) mg/dL Urine Blood (Negative) Urine Nitrite (Negative) Ur Leukocyte Esterase (Negative) Urine RBC (0-2) /HPF Urine WBC (0-5) /HPF Ur Squamous Epith Cells (0-2) /HPF Urine Bacteria (None Seen) Hyaline Casts (0-2) /LPF COVID-19 ([facility]) Negative (Negative) COVID-19 Clin Com See Note 03/02/22 03/02/22 Range/Units 11:02 14:10 WBC (4.8-10.8) X10*3/uL RBC (4.20-5.50) X10*6/uL Hgb (12.0-16.0) g/dl Hct (37.0-47.0) % MCV (80.0-98.0) fL MCH (27.0-33.0) pg MCHC (31.0-35.0) g/dl RDW (11.0-16.0) % Plt Count (160-400) X10*3/uL MPV (9.4-12.3) fL Immature Gran % (Auto) (0.0-0.4) % Neut % (Auto) (45-73) % Lymph % (Auto) (20-40) % [place] % (Auto) (2-11) % Eos % (Auto) (0-4) % Baso % (Auto) (0-2) % Lymph # (Auto) (1.2-4.9) X10*3/uL [place] # (Auto) (0.1-1.2) X10*3/uL Eos # (Auto) (0.0-0.4) X10*3/uL Baso # (Auto) (0.0-0.2) X10*3/uL Abs Immat Gran (auto) (0.00-0.03) X10*3/uL Absolute Neuts (auto) (2.0-8.3) x10*3/uL Absolute Nucleated RBC (0.0-0.012) X10*3/uL Nucleated RBC % (auto) (0.0-0.2) /100WBC Smear Tech's Comments Sodium 135 (135-145) mmol/L Potassium 4.2 (3.3-5.1) mmol/L Chloride 99 (96-108) mmol/L Carbon Dioxide 23 (22-29) mmol/L Anion Gap 17 (12-20) BUN 22 H (9-16) mg/dL Creatinine 1.35 (0.5-1.4) mg/dL Estim Creat Clear Calc 37.5 Estimated GFR 38 Random Glucose 156 H (60-115) mg/dL Lactic Acid (0.5-2.0) mmol/L Calcium 8.6 (8.4-10.2) mg/dL Magnesium 2.0 (1.6-2.6) mg/dL Total Bilirubin 0.8 (0.0-1.0) mg/dL AST 40 H D (5-31) U/L ALT 48 H (0-31) U/L Alkaline Phosphatase 105 D (39-117) U/L Total Protein 6.5 (6.5-8.0) g/dL Albumin 3.8 (3.5-5.0) g/dL Urine Color Yellow Urine Appearance Clear Urine pH 5.5 (5.0-9.0) Ur Specific [place] >= 1.030 H (1.005-1.025) Urine Protein 30 (1+) H (Neg-Trace) mg/dL Urine Glucose (UA) Negative (Negative) mg/dL Urine Ketones Trace (Negative) mg/dL Urine Blood Negative (Negative) Urine Nitrite Negative (Negative) Ur Leukocyte Esterase Small (1+) H (Negative) Urine RBC 0-2 (0-2) /HPF Urine WBC 11-20 H (0-5) /HPF Ur Squamous Epith Cells 3-5 (0-2) /HPF Urine Bacteria None Seen (None Seen) Hyaline Casts 3-5 (0-2) /LPF COVID-19 ([facility]) (Negative) COVID-19 Clin Com Imaging Data CT scan - abdomen: Attestation: I personally reviewed and interpreted this imaging study as follows: My impression: Possible ileus Radiologist's impression: EXAMINATION: CT ABDOMEN AND PELVIS WITH CONTRAST? CLINICAL INFORMATION: Postop mastectomy. Fever.? COMPARISON: Previous CT of the abdomen and pelvis January 2020? TECHNIQUE: Multidetector volumetric images were obtained from the superior aspect of the liver through the pubic symphysis following administration 85 mL of Omnipaque 350 intravenous contrast. Sagittal and coronal reformatted images were obtained on the technologist's workstation.? Oral contrast: Yes This CT examination was performed using dose optimization techniques as appropriate, variously including the following: *Automated exposure control *Adjustment of mA and/or kV according to patient size (this includes techniques or standardized protocols for targeted exams where dose is matched to indication/reason for exam; i.e. extremities or head) *Use of iterative reconstruction technique DLP: 806 mGy-cm FINDINGS: LUNG BASES: The visualized lung bases are unremarkable.? LIVER, GALLBLADDER, AND BILIARY TREE: The liver is normal in size, shape, and attenuation. No focal hepatic lesion. The gallbladder is been removed. There is mild intra and extrahepatic biliary duct dilatation. Common bile duct measures up to 1.5 cm. This does not appear appreciably changed from prior exams. PANCREAS: Unremarkable.? SPLEEN: Unremarkable.? ADRENAL GLANDS: Unremarkable.? KIDNEYS AND URETERS: Bilateral renal cysts. No imaging follow-up. Kidneys otherwise unremarkable. BLADDER: Unremarkable.? GASTROINTESTINAL TRACT: There is diverticulosis of the colon. There is stool throughout the colon questionable for constipation. No evidence of diverticulitis. Fluid-filled slightly distended loops of small bowel probably representing an ileus. No transition zone to suggest mechanical obstruction. Appendix not seen. No ascites. No free air. Small esophageal hernia. ABDOMINAL WALL: No significant hernia is appreciated.? LYMPH NODES: Normal. VASCULAR: Unremarkable. PELVIC VISCERA: Uterus appears to have been removed. No pelvic mass.? OSSEOUS STRUCTURES: Degenerative changes of the spine.? CT/CT abdomen pelvis w IV con IMPRESSION: Diverticulosis and constipation. Fluid-filled distended loops of small bowel probably representing an ileus. Bilateral renal cysts. Mild intra and extrahepatic biliary duct dilatation similar to previous exams probably normal postcholecystectomy ? Fleischner guidelines were followed. Dictated By: Sarah Monson MD Signed By: Electronically signed by Sarah Monson MD 03/02/[address] scan - chest: Attestation: I personally reviewed and interpreted this imaging study as follows: My impression: Left sided fluid collection, no PE. Radiologist's impression: EXAMINATION: CT ANGIOGRAM OF THE CHEST WITH AND WITHOUT CONTRAST (CT PULMONARY ANGIOGRAM FOR PE) CLINICAL INFORMATION: Reason for Exam SOB, post masectomy COMPARISON: Previous chest x-ray most recent September 2021 and chest CTA March 2016 TECHNIQUE: Prior to contrast administration, noncontrast localization images were obtained. ? Subsequently, multidetector volumetric imaging was performed from the thoracic inlet to below the diaphragms following the administration of 85 mL Omnipaque 350 intravenous contrast. No contrast reaction reported Sagittal, coronal, and MIP oblique sagittal reformatted images were obtained on the CT workstation, uploaded to PACS, and reviewed. This CT examination was performed using dose optimization techniques as appropriate, variously including the following: *Automated exposure control *Adjustment of mA and/or kV according to patient size (this includes techniques or standardized protocols for targeted exams where dose is matched to indication/reason for exam; i.e. extremities or head) *Use of iterative reconstruction technique Total exam dose-length product 370 mGy-cm FINDINGS: QUALITY OF STUDY/CONTRAST BOLUS: Satisfactory. PULMONARY ARTERIES: Evaluation for pulmonary embolism is limited due to artifact from respiratory motion. No large central or segmental pulmonary emboli.? THORACIC AORTA: No aneurysm or dissection. LUNG: No focal consolidation, nodules or masses. PLEURA: No pleural effusion or pneumothorax. MEDIASTINUM: The heart is enlarged. No pericardial effusion.? No hilar or mediastinal lymphadenopathy.? No evidence of septal bowing or right heart strain. There may be a small esophageal hernia. CHEST WALL/AXILLA: There are postsurgical changes following bilateral mastectomy. There is a drain in the right chest wall. No fluid collection is seen on the right. There is a drain left chest wall There is a large fluid collection with air-fluid level. This measures 2 cm in thickness, 13 cm in AP dimension and roughly 4.5 cm in longitudinal dimension. OSSEOUS STRUCTURES: No acute or suspicious osseous abnormality. Degenerative changes of the spine. UPPER ABDOMEN: Unremarkable.? No reflux of contrast into the hepatic veins to suggest elevated right heart pressures. CT/CT angio chest PE protocol IMPRESSION: Limited exam due to respiratory motion artifact. No evidence of large or central pulmonary embolism. Evaluation of smaller segmental and subsegmental pulmonary arteries is limited. No evidence of pneumonia. No pleural effusion. Enlarged heart. ? Postsurgical changes following bilateral mastectomy. Fluid collection in the left chest wall as described above. ? VTE: negative Dictated By: Sarah Monson MD Signed By: Electronically signed by Sarah Monson MD 03/02/22 1410 ECG Data Attestation: I personally reviewed and interpreted this ECG as follows: Prior ECG tracings: available for review Interpretation: Vent. Rate: 102 BPM ? ? Atrial Rate: 102 BPM P-R Int: 118 ms? QRS Dur: 076 ms QT Int: 354 ms ? ? ? P-R-T Axes: 027 -27 005 degrees QTc Int: 461 ms ? Sinus tachycardia Otherwise normal ECG DD/ 1105 Critical Care Time Critical Care Time Critical Care Time: Yes Total Critical Care Time: 30 Attestation: I spent 30 minutes of Critical Care Time with this patient. This does not include time spent on separately reported billable procedures. Discharge Plan Discharge Clinical Impression: Sepsis, Post op infection, Ileus Patient Disposition: Admitted As Inpatient
--- NOTE | 2022-03-02 10:13 | PC.NURSE ---
Patient Kyrgyz speaking. Bioinformatics Assistant called to bedside with provider. Patient appears to be confused. Provider aware. Patient a difficult IV start. Provider made aware.
[2022-03-02 10:24] LABS: Basophils Absolute Auto 0.1 X10*3/uL (0.0-0.2); Basophils Percent Auto 0.2 % (0-2); Eosinophils Absolute Auto 0.1 X10*3/uL (0.0-0.4); Eosinophils Percent Auto 0.2 % (0-4); Hematocrit 35.3 % (37.0-47.0); Hemoglobin 11.9 g/dl (12.0-16.0); Imm Gran Abs Auto 0.11 X10*3/uL (0.00-0.03); Imm Gran Pct Auto 0.5 % (0.0-0.4); Lymphocytes Percent Auto 4.1 % (20-40); MANUAL DIFF FLAG SCAN; Mean Corpuscular HGB Conc 33.7 g/dl (31.0-35.0); Mean Corpuscular Hemoglobin 30.5 pg (27.0-33.0); Mean Corpuscular Volume 90.5 fL (80.0-98.0); Mean Platelet Volume 9.4 fL (9.4-12.3); Monocytes Absolute Auto 1.2 X10*3/uL (0.1-1.2); Monocytes Percent Auto 5.1 % (2-11); Neutrophils Absolute Auto 21.9 x10*3/uL (2.0-8.3); Neutrophils Percent Auto 89.9 % (45-73); Platelet Count 428 X10*3/uL (160-400); Red Cell Distribution Width 14.1 % (11.0-16.0); SCAN SMEAR FLAG 1; White Blood Count 24.3 X10*3/uL (4.8-10.8)
[2022-03-02 10:36] LABS: Lactic Acid 1.4 mmol/L (0.5-2.0)
[2022-03-02 11:04] LABS: SLIDE REVIEW VERIFIED
[2022-03-02 11:08] LABS: COVID-19 Test Negative (Negative)
[2022-03-02] MEDS: ceFAZolin Sodium/Dextrose,Iso 2 GM/50 ML PIGGYBACK IV (11:23)
[2022-03-02 11:28] LABS: Alanine Aminotransferase 48 U/L (0-31); Albumin Level 3.8 g/dL (3.5-5.0); Alkaline Phosphatase 105 U/L (39-117); Anion Gap 17 (12-20); Aspartate Amino Transferase 40 U/L (5-31); Bilirubin Total 0.8 mg/dL (0.0-1.0); Blood Urea Nitrogen 22 mg/dL (9-16); Calcium 8.6 mg/dL (8.4-10.2); Carbon Dioxide 23 mmol/L (22-29); Chloride 99 mmol/L (96-108); Creatinine Clr Calc Pharmacy 37.5; Estimated Glomerular Filt Rate 38; Glucose Random 156 mg/dL (60-115); Potassium 4.2 mmol/L (3.3-5.1); Sodium 135 mmol/L (135-145); Total Protein 6.5 g/dL (6.5-8.0)
[2022-03-02] MEDS: iohexoL 350 MG/ML 100 ML INFUS..BTL 85 ML IV (12:24)
[2022-03-02] MEDS: Acetaminophen 325 MG TABLET 975 MG PO (12:28)
--- NOTE | 2022-03-02 13:24 | P.CONGS_ITS ---
History of Present Illness Consult details Consult date: 03/02/22 Requesting physician: Amira Alvarez Narrative: 71-year-old female patient well known to me with a recurrent right breast carcinoma presenting status post right modified radical mastectomy and left simple mastectomy on 02/19/2022. The patient tolerated the procedure well was subsequently discharged home on postoperative day 3. She was seen in the office last week and wounds were clean and intact but GENET output was still too high to remove the drains. She returns today with 24 hour of elevated fever and mental status changes. Temperature was measured at home at 102. Upon presentation to the emergency department she was noted to be hypoxic and WBC elevated to 24.3. CT angio of the chest the and abdominal CT requested. Results of the study are not available at the time of this dictation however review the study does indicate air and fluid in the left mastectomy skin flaps suggestive of an abscess. Zach-Spear drain was adjusted and a clot removed. A large purulence collection was drained through the Zach-Spear drain along with a air consistent with that seen on the CT. No fluid or air was noted on the right side. Review of Systems Review of Systems: Yes all other systems are reviewed and are negative Constitutional: Constitutional: Reports body ache(s) and Reports weakness Cardiovascular: Cardiovascular: Reports dyspnea Respiratory: Respiratory: Denies chest congestion, Denies excessive phlegm production and Reports dyspnea Gastrointestinal: Gastrointestinal: Reports abdominal pain, Denies nausea and Denies vomiting Integumentary/Breasts: Skin/Breast: Reports as per HPI Neurologic: Reports behavioral changes, Reports confusion and Reports weakness Psychiatric: Psychiatric: Reports behavioral changes and Reports confusion Hematologic/Lymphatic: Hematologic/Lymphatic: Denies lymphadenopathy PMFSH Past Medical History Medical History Arthritis Depression Diabetes 1.5, managed as type 2 GERD (gastroesophageal reflux disease) HTN (hypertension) IBS (irritable bowel syndrome) Traumatic complete tear of right rotator cuff Family History Family History Father No problems noted. Mother Heart disease Hypertension Colon cancer Maternal Grandmother Esophageal cancer Daughter Breast cancer Brother Colon cancer Sister Breast cancer Sister Breast cancer, Onset Age: 60 Surgical History Surgical History History of bilateral mastectomy (02/19/22) History of colonoscopy History of esophagogastroduodenoscopy (EGD) History of lumbar fusion History of lumpectomy of both breasts History of surgery Hx of appendectomy Hx of blepharoplasty Hx of cholecystectomy S/P ANDRÉS-BSO (total abdominal hysterectomy and bilateral salpingo-oophorectomy) Social History Social History Household Members: None Housing: Apartment Are you a primary client care manager to a significant other at home: No Do you presently have visiting nurse or other home services: No Alcohol intake: unknown Patient Tobacco Use Status: Never used Tobacco e-Cigarette/Vaping Use: Never Used Second Hand Smoke Exposure: No Use of substances other than those prescribed or required for medical reasons: Unknown Advance Directives: Yes Advance Directives on File: Yes Advance Directives Date on File: 09/26/21 service: No Current occupational status: disabled 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) Hearing needs: No Vision needs: Yes Meds Allergies Allergy/AdvReac Type Severity Reaction Status Date / Time No Known Allergies Allergy Verified 02/27/22 10:36 [No Known Allergies*] Active Medications: Current Medications Vancomycin HCl 1,000 mg/ (Sodium Chloride) 270 mls @ 270 mls/hr IV ONCE ONE Stop: 03/02/22 14:14 Pharmacy Consult (Consult Rx Perform Med Rec) 1 each MISCELLANE ONCE PRN PRN Reason: Consult order Pharmacy Consult (Consult Rx Vancomycin Dosing) 1 each MISCELLANE DAILY PRN PRN Reason: Consult order Home Medications Medication Instructions Recorded Confirmed Last Taken Type oxycodone 5 mg tablet 5 mg PO Q12H PRN Pain 02/19/22 02/28/22 Unknown History Physical Exam Vital Signs: Vital Signs: Last Vital Signs Temp 103 F H 03/02/22 12:18 Pulse 99 03/02/22 12:18 Resp 25 H 03/02/22 12:18 BP 147/53 H 03/02/22 12:18 Pulse Ox 98 03/02/22 12:18 O2 Del Method 03/02/22 12:18 BMI result Body Mass Index 29.5 Const: General: confusion and tired appearing Nutritional Appearance: well nourished Orientation/consciousness: confusion Eyes: Sclerae: sclerae normal EOM: EOMs intact bilaterally Chest: Other: Bilateral mastectomy scars are clean and intact. There is slight swelling and mild redness on the left side compared to the right side. GENET with more purulent appearing discharge on the left side. Right side reveals mainly serous and serosanguineous fluid. Resp: Effort & Inspection: normal respiratory effort, no audible wheezes, no cough and no respiratory distress Auscultation: clear to auscultation bilaterally GI: Palpation (GI): Soft to palpation, nontender, no guarding, not rigid and no hepatosplenomegaly Skin: General skin exam: erythema Neuro: General: confusion Extrem: General: No edema Results Labs Result diagrams: 03/02/22 10:03/02/22 11:02 Labs: Abnormal lab results 03/02/22 03/02/22 Range/Units 10: 11:02 WBC 24.3 H (4.8-10.8) X10*3/uL RBC 3.90 L (4.20-5.50) X10*6/uL Hgb 11.9 L (12.0-16.0) g/dl Hct 35.3 L (37.0-47.0) % Plt Count 428 H D (160-400) X10*3/uL Immature Gran % (Auto) 0.5 H (0.0-0.4) % Neut % (Auto) 89.9 H (45-73) % Lymph % (Auto) 4.1 L (20-40) % Lymph # (Auto) 1.0 L (1.2-4.9) X10*3/uL Abs Immat Gran (auto) 0.11 H (0.00-0.03) X10*3/uL Absolute Neuts (auto) 21.9 H (2.0-8.3) x10*3/uL BUN 22 H (9-16) mg/dL Random Glucose 156 H (60-115) mg/dL AST 40 H D (5-31) U/L ALT 48 H (0-31) U/L Short CBC 03/02/22 Range/Units 10:19 WBC 24.3 H (4.8-10.8) X10*3/uL Hgb 11.9 L (12.0-16.0) g/dl Hct 35.3 L (37.0-47.0) % Plt Count 428 H D (160-400) X10*3/uL BMP 03/02/22 11:02 Sodium 135 Potassium 4.2 Chloride 99 Carbon Dioxide 23 BUN 22 H Creatinine 1.35 Calcium 8.6 Liver Function 03/02/22 Range/Units 11:02 Total Bilirubin 0.8 (0.0-1.0) mg/dL AST 40 H D (5-31) U/L ALT 48 H (0-31) U/L Alkaline Phosphatase 105 D (39-117) U/L Albumin 3.8 (3.5-5.0) g/dL All other labs normal. 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 Drain was able to be cleared and a large collection of purulent fluid evacuated from the left flaps. Patient to be admitted to the hospitalist [facility] for IV antibiotics. Will monitor output from the Zach-Spear drains. Await final reading from CT chest abdomen and pelvis. Procedures Date of Service Date of Service: 03/02/22
--- NOTE | 2022-03-02 14:04 | PC.NURSE ---
Patient pulled out IV. Provider notified.
[2022-03-02 14:19] LABS: Appearance Urine Clear; Color Urine Yellow; Glucose Urine UA Negative (Negative); Leukocyte Esterase Urine Small (1+) (Negative); Nitrite Urine Negative (Negative); PH 5.5 (5.0-9.0); Specific Gravity - Urine >= 1.030 (1.005-1.025); UMIC TRIGGER UACC YES; Urine Blood Negative (Negative); Urine Ketones Trace mg/dL (Negative); Urine Protein 30 (1+) mg/dL (Neg-Trace)
[2022-03-02 14:21] LABS: Bacteria Urine None Seen (None Seen); RBC Urine 0-2 /HPF (0-2); UACC Culture Trigger YES
--- NOTE | 2022-03-02 15:00 | PHA.MEDREC ---
MED REC COMPLETE, NO ISSUES Pharmacy Consult ? Medication Reconciliation Pharmacy has completed the medication reconciliation.
[2022-03-02] MEDS: vancomycin HCL 1,000 MG in 0.9 % Sodium Chloride 250 ML 270 MG IV (15:21)
--- NOTE | 2022-03-02 17:46 | PM.IMHP ---
History of Present Illness Date of Service: 03/02/22 Chief Complaint: Fever, surgical wound pain and drainage A 71 years old lady with PMH of breast cancer post bilateral mastectomy, HTN, diabetes, among others who presented to the hospital complaining fevers and confusion for 1 day prior to admission. The patient had bilateral mastectomy on 02/19/[address] Malik. Discharged home on day 3 with 2 drains on side at that point with clear drainage. She was evaluated later at the surgical office with no reported concerns. For the last 1 day she noticed dark pus containing drainage mainly from the left side associated with fever and increased confusion. In the [place] [id number] scan of the chest consistent with small collection at the left side of the chest. Evaluated by surgery as the Zach-Spear drain was adjusted and the clot removed from it draining large amount of purulence collection. Would be admitted for further evaluation and treatment. Review of Systems Review of Systems: Reporting fever, chills and increased weakness No chest pain, palpitation No shortness of breath or coughing No abdominal pain, nausea or vomiting No urinary symptoms Left-sided chest wall pain, purulent drainage from left she GENET drain PMFSH Medical History Arthritis Depression Diabetes 1.5, managed as type 2 GERD (gastroesophageal reflux disease) HTN (hypertension) IBS (irritable bowel syndrome) Traumatic complete tear of right rotator cuff Family History Father No problems noted. Mother Heart disease Hypertension Colon cancer Maternal Grandmother Esophageal cancer Daughter Breast cancer Brother Colon cancer Sister Breast cancer Sister Breast cancer, Onset Age: 60 Surgical History History of bilateral mastectomy (02/19/22) History of colonoscopy History of esophagogastroduodenoscopy (EGD) History of lumbar fusion History of lumpectomy of both breasts History of surgery Hx of appendectomy Hx of blepharoplasty Hx of cholecystectomy S/P ANDRÉS-BSO (total abdominal hysterectomy and bilateral salpingo-oophorectomy) Social History Household Members: None Housing: Apartment Are you a primary clinical manager home care to a significant other at home: No Do you presently have visiting nurse or other home services: No Alcohol intake: unknown Patient Tobacco Use Status: Never used Tobacco e-Cigarette/Vaping Use: Never Used Second Hand Smoke Exposure: No Use of substances other than those prescribed or required for medical reasons: Unknown Advance Directives: Yes Advance Directives on File: Yes Advance Directives Date on File: 09/26/21 service: No Current occupational status: disabled 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) Hearing needs: No Vision needs: Yes Meds Allergies Allergy/AdvReac Type Severity Reaction Status Date / Time No Known Allergies Allergy Verified 02/27/22 10:36 [No Known Allergies*] Active Medications: Current Medications Acetaminophen (Acetaminophen 325 Mg Tablet) 650 mg PO Q6H PRN PRN Reason: Pain, Mild (Pain Scale 1-3) Enoxaparin Sodium (Enoxaparin Sodium 30 Mg/0.3 Ml Syringe) 30 mg SUBCUT Q24H MARINA Sodium Chloride (Ns) 1,000 mls @ 100 mls/hr IVCONT .Q10H MARINA Morphine Sulfate (Morphine Sulfate 4 Mg/Ml Cartridge) 4 mg IVPUSH Q4H PRN; Protocol PRN Reason: Pain, Severe (Pain Scale 7-10) Ondansetron HCl (Ondansetron Hcl 4 Mg/2 Ml Vial) 4 mg IVPUSH Q8H PRN PRN Reason: Nausea and Vomiting Pharmacy Consult (Consult Rx Perform Med Rec) 1 each MISCELLANE ONCE PRN PRN Reason: Consult order Sodium Chloride (0.9 % Sodium Chloride Flush 3 Ml Syringe) 3 ml IVFLUSH QSHIFT [facility] Home Medications Medication Instructions Recorded Confirmed Last Taken Type oxycodone 5 mg tablet 10 mg PO Q6H PRN Severe Pain 02/19/22 03/02/22 Unknown History (Scale Score 7-10) loperamide 2 mg capsule 2 mg PO QID 03/02/22 03/02/22 Unknown History Physical Exam Vital Signs and Narrative: Vital Signs: Last Vital Signs Temp 98.8 F 03/02/22 16:27 Pulse 88 03/02/22 16:27 Resp 20 03/02/22 16:27 BP 135/62 03/02/22 16:27 Pulse Ox 95 10/07/22 16:27 O2 Del Method 03/02/22 16:27 BMI result Body Mass Index 29.5 Const: Other: Constitutional : Alert, oriented, in mild distress from pain Neck : Normal inspection, Supple Cardiovascular : RRR, no JVP, no lower extremity edema Respiratory : fair bilateral air entry, no crackles, wheezes or rhonchi Gastrointestinal: soft, lax, Normal bowel sounds, Non tender Skin : Warm, Dry, bilateral mastectomy site looks clean with no drainage, left side mildly swollen with check a GENET drainage of purulent material, right-sided drainage more serous, bilateral tenderness more on the left Neurological : Alert & oriented x3, No focal deficit , CN 2-12 within normal Results Labs CBC and Chem 7: 03/02/22 10:19 03/02/22 11:02 Labs: Laboratory Results - last 24 hr 03/02/22 03/02/22 03/02/22 10:18 10:19 10:46 MCV 90.5 MCH 30.5 MCHC 33.7 RDW 14.1 Plt Count 428 H D MPV 9.4 Immature Gran % (Auto) 0.5 H Neut % (Auto) 89.9 H Lymph % (Auto) 4.1 L [place] % (Auto) 5.1 Eos % (Auto) 0.2 Baso % (Auto) 0.2 Lymph # (Auto) 1.0 L [place] # (Auto) 1.2 Eos # (Auto) 0.1 Baso # (Auto) 0.1 Abs Immat Gran (auto) 0.11 H Absolute Neuts (auto) 21.9 H Absolute Nucleated RBC 0.000 Nucleated RBC % (auto) 0.0 Smear Tech's Comments VERIFIED Anion Gap Estim Creat Clear Calc Estimated GFR Random Glucose Lactic Acid 1.4 Calcium Magnesium Total Bilirubin AST ALT Alkaline Phosphatase Total Protein Albumin Urine Color Urine Appearance Urine pH Ur Specific [place] Urine Protein Urine Glucose (UA) Urine Ketones Urine Blood Urine Nitrite Ur Leukocyte Esterase Urine RBC Urine WBC Ur Squamous Epith Cells Urine Bacteria Hyaline Casts COVID-19 (KEO) Negative COVID-19 Clin Com See Note 03/02/22 03/02/22 11:02 14:10 MCV MCH MCHC RDW Plt Count MPV Immature Gran % (Auto) Neut % (Auto) Lymph % (Auto) [place] % (Auto) Eos % (Auto) Baso % (Auto) Lymph # (Auto) [place] # (Auto) Eos # (Auto) Baso # (Auto) Abs Immat Gran (auto) Absolute Neuts (auto) Absolute Nucleated RBC Nucleated RBC % (auto) Smear Tech's Comments Anion Gap 17 Estim Creat Clear Calc 37.5 Estimated GFR 38 Random Glucose 156 H Lactic Acid Calcium 8.6 Magnesium 2.0 Total Bilirubin 0.8 AST 40 H D ALT 48 H Alkaline Phosphatase 105 D Total Protein 6.5 Albumin 3.8 Urine Color Yellow Urine Appearance Clear Urine pH 5.5 Ur Specific [place] >= 1.030 H Urine Protein 30 (1+) H Urine Glucose (UA) Negative Urine Ketones Trace Urine Blood Negative Urine Nitrite Negative Ur Leukocyte Esterase Small (1+) H Urine RBC 0-2 Urine WBC 11-20 H Ur Squamous Epith Cells 3-5 Urine Bacteria None Seen Hyaline Casts 3-5 COVID-19 (KEO) COVID-19 Clin Com Imaging Radiologist's Impressions: Impressions Abdomen/Pelvis CT 03/02/22 12:33 IMPRESSION: Diverticulosis and constipation. Fluid-filled distended loops of small bowel probably representing an ileus. Bilateral renal cysts. Mild intra and extrahepatic biliary duct dilatation similar to previous exams probably normal postcholecystectomy Fleischner guidelines were followed. Chest CTA 03/02/22 12:33 IMPRESSION: Limited exam due to respiratory motion artifact. No evidence of large or central pulmonary embolism. Evaluation of smaller segmental and subsegmental pulmonary arteries is limited. No evidence of pneumonia. No pleural effusion. Enlarged heart. Postsurgical changes following bilateral mastectomy. Fluid collection in the left chest wall as described above. VTE: negative Assessment and Plan (1) Sepsis: Status: Acute (2) Surgical wound infection: Status: Acute Plan A 71 years old lady with PMH of breast cancer post bilateral mastectomy, HTN, diabetes, among others who presented to the hospital complaining fevers and confusion for 1 day prior to admission. Toxic metabolic encephalopathy 2/2 Sepsis secondary to surgical wound infection Has fever, tachycardia, leukocytosis and source of infection Pus drained, GENET drain open and passing purulent material Negative lactic acid Pending blood cultures Start broad-spectrum antibiotic of vancomycin and Zosyn Surgery team following Morphine for pain Acute kidney injury Creatinine increased to 1.3 from 0.8 Renally adjust medications IV fluid overnight Monitor intake and output Follow BMP Constipation CT concerning for possible ileus Likely secondary to decreased activity and pain medication Bowel regimen Monitor response Type 2 diabetes SSI, hold Lantus Diabetic diet Hypertension Continue amlodipine, metoprolol DVT PPX Lovenox Patient will need 2. Overnight hospital stay for evaluation treatment of sepsis pending final cultures to prevent possible decompensation Quality Stroke Does the patient have a stroke diagnosis?: No VTE Prior VTE?: No VTE Risk Level:: Medical - moderate - high VTE Device Contraindication: Treatment Not Indicated VTE Drug Contraindication: N/A - Med Ordered
[2022-03-02] MEDS: Enoxaparin Sodium 40 MG/0.4 ML SYRINGE SUBCUT (18:11)
[2022-03-02] MEDS: Dicyclomine HCl 10 MG CAPSULE 20 MG PO ×2 (18:11→23:39)
[2022-03-02] MEDS: Piperacillin Sodium/Tazobactam 2.25 GM in 0.9 % Sodium Chloride 50 ML IV (18:45)
--- NOTE | 2022-03-02 18:54 | PHA.PROG ---
Admission Date/Time: March 02, 2022 17:40 Indication: Bacteremia Weight in k kg Adjusted body weight in [place] body weight in K.7 Obesity Dosing Indication % IBW: Obese model used Serum Creatinine - Last 168 Hours 03/02/22 11:02 Creatinine 1.35 Estimated CrCl and GFR - Last 168 Hours 03/02/22 11:02 Estim Creat Clear Calc 37.5 Estimated GFR 38 Vancomycin Loading Dose: 1000 mg Current Vancomycin Dosing Regimen: 750 mg Q24h Vancomycin Monitoring using AUC goal of 400 - 600 range with trough as surrogate marker: 509 mg/L/hr Date and Time for next Vancomycin Level to be drawn: 03/04 @1700 Pharmacist Comments on Vancomycin Plan: Obese model being used. Patient did not receive a proper load. Patient only received 1 gram which is only 12 mg/kg, loading dose should have been about 1750mg. I put in a 750mg now dose to go with the 1 gram. There after, the dose is to be 750mg Q24h. Patient is 71 years old which indicated a Q24H dosing to allow clearing. Patients renal function to be monitored daily. Predicted AUC is 509 mg/L/hr. Next draw 03/04 @1700 Vancomycin dosing will take advantage of [employer] as a clinical decision support tool that uses Bayesian modeling to calculate individual patient's pharmacokinetic parameters and forecast the patient's drug concentration time course with the target goal AUC 24 range of 400 - 600 mg/L/hr.
[2022-03-02] MEDS: Morphine Sulfate 4 MG/ML CARTRIDGE IVPUSH ×2 (19:22→22:50)
--- NOTE | 2022-03-02 20:08 | PC.NURSE ---
Assumed care of pt. at 1900. Pt. resting in bed, however, is a bit restless d/t confusion and pain stated at a 03/05. Pt's daughter is at bedside. Pt. medicated with PRN morphine for the pain.
[2022-03-02] MEDS: 0.9 % Sodium Chloride 1,000 ML 100 ML IVCONT (21:15)
[2022-03-02] MEDS: vancomycin HCL 750 MG in 0.9 % Sodium Chloride 250 ML 265 MG IV (21:16)
[2022-03-02] MEDS: ondansetron HCL 4 MG/2 ML VIAL IVPUSH (22:50)
[2022-03-02] MEDS: Gabapentin 300 MG CAPSULE 600 MG PO (22:50)
[2022-03-02] MEDS: traZODone HCL 100 MG TABLET 200 MG PO (22:51)
[2022-03-02] MEDS: Cyclobenzaprine HCl 10 MG TABLET PO (22:51)
[2022-03-02] MEDS: Acetaminophen 325 MG TABLET 650 MG PO (22:51)
[2022-03-02] MEDS: polyethylene glycoL 3350 17 GM POWD.PACK PO (22:52)
[2022-03-02] MEDS: Metoprolol Tartrate 50 MG TABLET PO (23:03)
[2022-03-02] MEDS: hydrOXYzine HCL 25 MG TABLET PO (23:03)
[2022-03-02] MEDS: Amitriptyline HCl 10 MG TABLET PO (23:39)
--- NOTE | 2022-03-02 23:44 | PC.NURSE ---
Pt. resting in bed with daughter at bedside. Pt. reports bilateral pain at incision sites adjacent to breast.
--- NOTE | 2022-03-03 00:51 | PC.NURSE ---
Pt. resting comfortably in bed w/dtr at bedside. Pt. waiting transport to med surge unit.
[2022-03-03 01:29] VITALS: BMI 31.9
[2022-03-03] MEDS: Piperacillin Sodium/Tazobactam 2.25 GM in 0.9 % Sodium Chloride 50 ML IV ×4 (01:39→18:44)
[2022-03-03 03:06] VITALS: BP 104/54; PULSE 69; RESP 16; TEMP 36.8; O2SAT 93
[2022-03-03] MEDS: Dicyclomine HCl 10 MG CAPSULE 20 MG PO ×3 (06:35→18:43)
[2022-03-03] MEDS: 0.9 % Sodium Chloride 1,000 ML 100 ML IVCONT (06:39)
[2022-03-03 06:51] LABS: Hemoglobin 10.9 g/dl (12.0-16.0); Mean Corpuscular HGB Conc 32.1 g/dl (31.0-35.0); Mean Corpuscular Hemoglobin 30.5 pg (27.0-33.0); Mean Corpuscular Volume 95.2 fL (80.0-98.0); Mean Platelet Volume 9.7 fL (9.4-12.3); Platelet Count 365 X10*3/uL (160-400); Red Blood Count 3.57 X10*6/uL (4.20-5.50); Red Cell Distribution Width 14.2 % (11.0-16.0); White Blood Count 18.7 X10*3/uL (4.8-10.8)
[2022-03-03 07:21] LABS: Anion Gap 17 (12-20); Blood Urea Nitrogen 14 mg/dL (9-16); Carbon Dioxide 16 mmol/L (22-29); Chloride 107 mmol/L (96-108); Creatinine Clr Calc Pharmacy 61.2; Estimated Glomerular Filt Rate > 60; Glucose Random 116 mg/dL (60-115); Potassium 4.4 mmol/L (3.3-5.1); Sodium 136 mmol/L (135-145)
[2022-03-03 07:45] VITALS: BP 119/59; PULSE 74; RESP 15; TEMP 36.9; O2SAT 92
[2022-03-03 07:56] LABS: Calcium 7.4 mg/dL (8.4-10.2)
--- NOTE | 2022-03-03 08:24 | HE.PHANOTE ---
Vancomycin Dosing Addendum Cr improving. Increased dose to 1250 mg q24h. Next level 03/04/22 @1700. insight changed to obese model.
[2022-03-03] MEDS: polyethylene glycoL 3350 17 GM POWD.PACK PO ×2 (08:55→20:27)
[2022-03-03] MEDS: Atorvastatin Calcium 20 MG TABLET PO (08:56)
[2022-03-03] MEDS: Metoprolol Tartrate 50 MG TABLET PO ×2 (08:56→20:27)
[2022-03-03] MEDS: Morphine Sulfate 4 MG/ML CARTRIDGE IVPUSH ×3 (08:56→18:44)
[2022-03-03] MEDS: Gabapentin 300 MG CAPSULE 600 MG PO (08:56)
[2022-03-03] MEDS: Omeprazole 20 MG CAPSULE.DR PO (08:56)
[2022-03-03] MEDS: Escitalopram Oxalate 10 MG TABLET PO (08:56)
[2022-03-03] MEDS: amLODIPine Besylate 5 MG TABLET PO (08:56)
--- NOTE | 2022-03-03 10:36 | HO.PM.IMPN ---
Subjective Subjective Date of Service: 03/03/22 Interval History: Seen and evaluated this morning, family at the bedside Reported difficulty sleeping overnight and increased confusion Still having drainage No fever since admission No other overnight events Review of Systems No fever, chills but reports weakness No chest pain, palpitation No shortness of breath or coughing No abdominal pain, nausea or vomiting No urinary symptoms Left-sided chest wall pain, purulent drainage from left she GENET drain Physical Exam Vital Signs: Vital Signs: Last Vital Signs Temp 98.4 F 03/03/22 07:45 Pulse 74 03/03/22 07:45 Resp 15 03/03/22 07:45 BP 119/59 L 03/03/22 07:45 Pulse Ox 92 03/03/22 07:45 O2 Del Method 03/03/22 07:45 BMI result Body Mass Index 31.9 Const: Other: Constitutional : Alert with stimulation, week Neck : Normal inspection, Supple Cardiovascular : RRR, no JVP, no lower extremity edema Respiratory : fair bilateral air entry, no crackles, wheezes or rhonchi Gastrointestinal: soft, lax, Normal bowel sounds, Non tender Skin : Warm, Dry, bilateral mastectomy site looks clean with no drainage, left side mildly swollen with check a GENET drainage of purulent material, right-sided drainage more serous, bilateral tenderness more on the left Neurological : Alert & oriented to self only, No focal deficit Objective Data Active Medications Acetaminophen (Acetaminophen 325 Mg Tablet) 650 mg PO Q6H PRN PRN Reason: Pain, Mild (Pain Scale 1-3) Last Admin: 03/02/22 22:51 Dose: 650 mg Documented By: BELLA Amitriptyline HCl (Amitriptyline Hcl 10 Mg Tablet) 10 mg PO BEDTIME [facility] Last Admin: 03/02/22 23:39 Dose: 10 mg Documented By: BELLA Amlodipine Besylate (Amlodipine Besylate 5 Mg Tablet) 5 mg PO DAILY [facility]; Protocol Last Admin: 03/03/22 08:56 Dose: 5 mg Documented By: COLLEEN Atorvastatin Calcium (Atorvastatin Calcium 20 Mg Tablet) 20 mg PO DAILY [facility] Last Admin: 03/03/22 08:56 Dose: 20 mg Documented By: COLLEEN Cyclobenzaprine HCl (Cyclobenzaprine Hcl 10 Mg Tablet) 10 mg PO TID PRN PRN Reason: muscle spasm Last Admin: 03/02/22 22:51 Dose: 10 mg Documented By: BELLA Dicyclomine HCl (Dicyclomine Hcl 10 Mg Capsule) 20 mg PO Q6H [facility] Last Admin: 03/03/22 06:35 Dose: 20 mg Documented By: TUAN Enoxaparin Sodium (Enoxaparin Sodium 40 Mg/0.4 Ml Syringe) 40 mg SUBCUT Q24H [facility] Last Admin: 03/02/22 18:11 Dose: 40 mg Documented By: HELDER Escitalopram Oxalate (Escitalopram Oxalate 10 Mg Tablet) 10 mg PO DAILY [facility] Last Admin: 03/03/22 08:56 Dose: 10 mg Documented By: COLLEEN Gabapentin (Gabapentin 300 Mg Capsule) 600 mg PO BID [facility] Last Admin: 03/03/22 08:56 Dose: 600 mg Documented By: COLLEEN Hydroxyzine HCl (Hydroxyzine Hcl 25 Mg Tablet) 25 mg PO Q6H PRN PRN Reason: anxiety/restlessness Last Admin: 03/02/22 23:03 Dose: 25 mg Documented By: BELLA Piperacillin Sod/Tazobactam (Sod 2.25 gm/ Sodium Chloride) 50 mls @ 100 mls/hr IV Q6H [facility] Last Infusion: 03/03/22 07:09 Dose: 0 mls/hr Documented By: TUAN Vancomycin HCl 1,250 mg/ (Sodium Chloride) 250 mls @ 166.667 mls/hr IV Q24H [facility] Metoprolol Tartrate (Metoprolol Tartrate 50 Mg Tablet) 50 mg PO BID [facility]; Protocol Last Admin: 03/03/22 08:56 Dose: 50 mg Documented By: COLLEEN Morphine Sulfate (Morphine Sulfate 4 Mg/Ml Cartridge) 4 mg IVPUSH Q4H PRN; Protocol PRN Reason: Pain, Severe (Pain Scale 7-10) Last Admin: 03/03/22 08:56 Dose: 4 mg Documented By: COLLEEN Omeprazole (Omeprazole 20 Mg Capsule.) 20 mg PO DAILY [facility] Last Admin: 03/03/22 08:56 Dose: 20 mg Documented By: COLLEEN Ondansetron HCl (Ondansetron Hcl 4 Mg/2 Ml Vial) 4 mg IVPUSH Q8H PRN PRN Reason: Nausea and Vomiting Last Admin: 10/07/22 22:50 Dose: 4 mg Documented By: BELLA Pharmacy Consult (Consult Rx Perform Med Rec) 1 each MISCELLANE ONCE PRN PRN Reason: Consult order Pharmacy Consult (Consult Rx Vancomycin Dosing) 1 each MISCELLANE DAILY PRN PRN Reason: Consult order Polyethylene Glycol (Polyethylene Glycol 3350 17 Gm Powd.Pack) 17 gm PO BID [facility] Last Admin: 03/03/22 08:55 Dose: 17 gm Documented By: COLLEEN Sodium Chloride (0.9 % Sodium Chloride Flush 3 Ml Syringe) 3 ml IVFLUSH QSHIFT [facility] Last Admin: 03/03/22 08:45 Dose: Not Given Documented By: COLLEEN Non-Admin Reason: IV Running Trazodone HCl (Trazodone Hcl 100 Mg Tablet) 200 mg PO BEDTIME [facility] Last Admin: 03/02/22 22:51 Dose: 200 mg Documented By: BELLA Labs CBC & Chem 7: 03/03/22 06:34 03/03/22 05:58 Labs: Laboratory Results - last 24 hr 03/02/22 03/02/22 03/02/22 10:18 10:19 10:46 MCV MCH MCHC RDW Plt Count MPV Immature Gran % (Auto) 0.5 H Neut % (Auto) 89.9 H Lymph % (Auto) 4.1 L [place] % (Auto) 5.1 Eos % (Auto) 0.2 Baso % (Auto) 0.2 Lymph # (Auto) 1.0 L [place] # (Auto) 1.2 Eos # (Auto) 0.1 Baso # (Auto) 0.1 Abs Immat Gran (auto) 0.11 H Absolute Neuts (auto) 21.9 H Absolute Nucleated RBC 0.000 Nucleated RBC % (auto) 0.0 Smear Tech's Comments VERIFIED Anion Gap Estim Creat Clear Calc Estimated GFR Random Glucose Lactic Acid 1.4 Calcium Magnesium Total Bilirubin AST ALT Alkaline Phosphatase Total Protein Albumin Urine Color Urine Appearance Urine pH Ur Specific Meally Urine Protein Urine Glucose (UA) Urine Ketones Urine Blood Urine Nitrite Ur Leukocyte Esterase Urine RBC Urine WBC Ur Squamous Epith Cells Urine Bacteria Hyaline Casts COVID-19 ([facility]) Negative COVID-19 Clin Com See Note 03/02/22 03/02/22 03/03/22 11:02 14:10 05:58 MCV MCH MCHC RDW Plt Count MPV Immature Gran % (Auto) Neut % (Auto) Lymph % (Auto) [place] % (Auto) Eos % (Auto) Baso % (Auto) Lymph # (Auto) [place] # (Auto) Eos # (Auto) Baso # (Auto) Abs Immat Gran (auto) Absolute Neuts (auto) Absolute Nucleated RBC Nucleated RBC % (auto) Smear Tech's Comments Anion Gap 17 17 Estim Creat Clear Calc 37.5 61.2 Estimated GFR 38 > 60 Random Glucose 156 H 116 H Lactic Acid Calcium 8.6 7.4 L D Magnesium 2.0 Total Bilirubin 0.8 AST 40 H D ALT 48 H Alkaline Phosphatase 105 D Total Protein 6.5 Albumin 3.8 Urine Color Yellow Urine Appearance Clear Urine pH 5.5 Ur Specific [place] >= 1.030 H Urine Protein 30 (1+) H Urine Glucose (UA) Negative Urine Ketones Trace Urine Blood Negative Urine Nitrite Negative Ur Leukocyte Esterase Small (1+) H Urine RBC 0-2 Urine WBC 11-20 H Ur Squamous Epith Cells 3-5 Urine Bacteria None Seen Hyaline Casts 3-5 COVID-19 ([facility]) COVID-19 Clin Com 03/03/22 06:34 MCV 95.2 MCH 30.5 MCHC 32.1 RDW 14.2 Plt Count 365 MPV 9.7 Immature Gran % (Auto) Neut % (Auto) Lymph % (Auto) [place] % (Auto) Eos % (Auto) Baso % (Auto) Lymph # (Auto) [place] # (Auto) Eos # (Auto) Baso # (Auto) Abs Immat Gran (auto) Absolute Neuts (auto) Absolute Nucleated RBC 0.000 Nucleated RBC % (auto) 0.0 Smear Tech's Comments Anion Gap Estim Creat Clear Calc Estimated GFR Random Glucose Lactic Acid Calcium Magnesium Total Bilirubin AST ALT Alkaline Phosphatase Total Protein Albumin Urine Color Urine Appearance Urine pH Ur Specific Meally Urine Protein Urine Glucose (UA) Urine Ketones Urine Blood Urine Nitrite Ur Leukocyte Esterase Urine RBC Urine WBC Ur Squamous Epith Cells Urine Bacteria Hyaline Casts COVID-19 ([facility]) COVID-19 Clin Com Assessment and Plan (1) Surgical wound infection: Status: Acute (2) Sepsis: Status: Acute (3) Ileus: Status: Acute Plan A 71 years old lady with PMH of breast cancer post bilateral mastectomy, HTN, diabetes, among others who presented to the hospital complaining fevers and confusion for 1 day prior to admission. Toxic metabolic encephalopathy 2/2 Sepsis secondary to surgical wound infection Sepsis resolved Pus drained, GENET drain open and passing purulent material Pending blood cultures Continue vancomycin and Zosyn Surgery team following Morphine for pain Hold amitriptyline, decrease gabapentin Recurrent 3 orientation Acute kidney injury Creatinine improved back to 0.8 DC IV fluids Monitor intake and output Follow BMP Constipation CT concerning for possible ileus Likely secondary to decreased activity and pain medication Bowel regimen Monitor response Type 2 diabetes SSI, hold Lantus Diabetic diet Hypertension Continue amlodipine, metoprolol DVT PPX Lovenox Patient will need Overnight hospital stay for evaluation treatment of sepsis pending final cultures to prevent possible decompensation Quality Stroke Does the patient have a stroke diagnosis?: No VTE Prior VTE?: No VTE Risk Level:: Medical - moderate - high VTE Device Contraindication: Treatment Not Indicated VTE Drug Contraindication: N/A - Med Ordered
[2022-03-03 12:00] VITALS: BP 133/57; PULSE 73; RESP 16; TEMP 37.1; O2SAT 94
[2022-03-03] MEDS: Cyclobenzaprine HCl 10 MG TABLET PO ×2 (12:33→20:27)
[2022-03-03 15:44] VITALS: BP 137/62; PULSE 88; RESP 16; TEMP 37.6; O2SAT 94
[2022-03-03] MEDS: 0.9 % Sodium Chloride Flush 3 ML SYRINGE IVFLUSH ×2 (18:43→20:30)
[2022-03-03] MEDS: Enoxaparin Sodium 40 MG/0.4 ML SYRINGE SUBCUT (18:43)
[2022-03-03 20:00] VITALS: BP 135/62; PULSE 91; RESP 18; TEMP 36.8; O2SAT 93
[2022-03-03] MEDS: vancomycin HCL 1,250 MG in 0.9 % Sodium Chloride 250 ML 166.67 MG IV (20:26)
[2022-03-03] MEDS: Gabapentin 400 MG CAPSULE PO (20:27)
[2022-03-03] MEDS: traZODone HCL 100 MG TABLET 300 MG PO (20:27)
[2022-03-03 23:48] VITALS: BP 108/63; PULSE 83; RESP 81; TEMP 36.6; O2SAT 93
[2022-03-04] VITALS (7 sets, daily range): BP systolic 119–167; BP diastolic 64–80; PULSE 67–80; RESP 14–18; TEMP 36.6–37.2; O2SAT 93–97
[2022-03-04] MEDS: Piperacillin Sodium/Tazobactam 2.25 GM in 0.9 % Sodium Chloride 50 ML IV ×4 (00:11→17:28)
[2022-03-04] MEDS: Dicyclomine HCl 10 MG CAPSULE 20 MG PO ×5 (00:11→22:07)
[2022-03-04] MEDS: Morphine Sulfate 4 MG/ML CARTRIDGE IVPUSH ×3 (05:45→22:08)
[2022-03-04 06:19] LABS: Hematocrit 30.2 % (37.0-47.0); Hemoglobin 9.9 g/dl (12.0-16.0); Mean Corpuscular HGB Conc 32.8 g/dl (31.0-35.0); Mean Corpuscular Hemoglobin 30.6 pg (27.0-33.0); Mean Corpuscular Volume 93.2 fL (80.0-98.0); Mean Platelet Volume 9.7 fL (9.4-12.3); Platelet Count 391 X10*3/uL (160-400); Red Blood Count 3.24 X10*6/uL (4.20-5.50); Red Cell Distribution Width 13.9 % (11.0-16.0); White Blood Count 13.9 X10*3/uL (4.8-10.8)
[2022-03-04 06:44] LABS: Creatinine Clr Calc Pharmacy 61.2; Estimated Glomerular Filt Rate > 60
[2022-03-04 06:49] LABS: Anion Gap 13 (12-20); Blood Urea Nitrogen 13 mg/dL (9-16); Calcium 7.7 mg/dL (8.4-10.2); Carbon Dioxide 22 mmol/L (22-29); Chloride 106 mmol/L (96-108); Creatinine Clr Calc Pharmacy 58.5; Estimated Glomerular Filt Rate > 60; Glucose Random 140 mg/dL (60-115); Potassium 4.1 mmol/L (3.3-5.1); Sodium 137 mmol/L (135-145)
[2022-03-04] MEDS: Escitalopram Oxalate 10 MG TABLET PO (07:45)
[2022-03-04] MEDS: Atorvastatin Calcium 20 MG TABLET PO (07:45)
[2022-03-04] MEDS: amLODIPine Besylate 5 MG TABLET PO (07:45)
[2022-03-04] MEDS: Gabapentin 400 MG CAPSULE PO ×2 (07:45→20:42)
[2022-03-04] MEDS: polyethylene glycoL 3350 17 GM POWD.PACK PO ×2 (07:45→20:42)
[2022-03-04] MEDS: Omeprazole 20 MG CAPSULE.DR PO (07:45)
[2022-03-04] MEDS: Metoprolol Tartrate 50 MG TABLET PO ×2 (07:45→20:42)
[2022-03-04] MEDS: 0.9 % Sodium Chloride Flush 3 ML SYRINGE IVFLUSH ×3 (07:51→22:08)
--- NOTE | 2022-03-04 10:41 | MHC.CM.PN ---
Interview conducted W/Cornelia (daughter). Patient lives alone, owns cane and rollator; equipment ordered already through [facility] but has not arrived to the home yet is a 2-wheeled walker and a hospital bed (patient's bed is far too high for her to get in and out of, and now she can't use her arms/upper body strength D/T very recent B/L mastectomy). Patient has both FIRESTOPPER TECHNICIAN and nursing services through [facility]; Cornelia herself and another woman named Yamila are the glass inspector for the patient. Cornelia does not remember how many hours of FIRESTOPPER TECHNICIAN services patient has, but knows that it is not interactive multimedia designer, and states she is asking [facility] to please increase. Discussed potential SNF D/C for short term, Cornelia indicates that both herself and the patient are adamantly against a SNF D/C and will never allow this. Plan is home w/services via family. CM to follow.
--- NOTE | 2022-03-04 11:39 | HO.PM.IMPN ---
Subjective Subjective Date of Service: 03/04/22 Interval History: Seen and evaluated this morning, family at the bedside More alert and interactive today, seems to have sundowning by the end of the day Still having drainage but less bus mainly serous and bloody No fever since admission No other overnight events Review of Systems No fever, chills but reports weakness No chest pain, palpitation No shortness of breath or coughing No abdominal pain, nausea or vomiting No urinary symptoms Left-sided chest wall pain, purulent drainage from left she GENET drain Physical Exam Vital Signs: Vital Signs: Last Vital Signs Temp 98 F 03/04/22 07:37 Pulse 69 03/04/22 07:37 Resp 14 03/04/22 07:37 BP 119/64 03/04/22 07:37 Pulse Ox 95 03/04/22 07:37 O2 Del Method 03/04/22 07:37 BMI result Body Mass Index 31.9 Const: Other: Constitutional : Alert , interactive Neck : Normal inspection, Supple Cardiovascular : RRR, no JVP, no lower extremity edema Respiratory : fair bilateral air entry, no crackles, wheezes or rhonchi Gastrointestinal: soft, lax, Normal bowel sounds, Non tender Skin : Warm, Dry, bilateral mastectomy site looks clean with no drainage, left side less swollen with GENET drainage of serous material, right-sided drainage more serous, bilateral tenderness more on the left Neurological : Alert & oriented to self only, No focal deficit Objective Data Active Medications Acetaminophen (Acetaminophen 325 Mg Tablet) 650 mg PO Q6H PRN PRN Reason: Pain, Mild (Pain Scale 1-3) Last Admin: 03/02/22 22:51 Dose: 650 mg Documented By: BELLA Amlodipine Besylate (Amlodipine Besylate 5 Mg Tablet) 5 mg PO DAILY [facility]; Protocol Last Admin: 03/04/22 07:45 Dose: 5 mg Documented By: AURA Atorvastatin Calcium (Atorvastatin Calcium 20 Mg Tablet) 20 mg PO DAILY [facility] Last Admin: 03/04/22 07:45 Dose: 20 mg Documented By: AURA Cyclobenzaprine HCl (Cyclobenzaprine Hcl 10 Mg Tablet) 10 mg PO TID PRN PRN Reason: muscle spasm Last Admin: 03/03/22 20:27 Dose: 10 mg Documented By: TUAN Dicyclomine HCl (Dicyclomine Hcl 10 Mg Capsule) 20 mg PO Q6H [facility] Last Admin: 03/04/22 05:45 Dose: 20 mg Documented By: TUAN Enoxaparin Sodium (Enoxaparin Sodium 40 Mg/0.4 Ml Syringe) 40 mg SUBCUT Q24H [facility] Last Admin: 03/03/22 18:43 Dose: 40 mg Documented By: COLLEEN Escitalopram Oxalate (Escitalopram Oxalate 10 Mg Tablet) 10 mg PO DAILY [facility] Last Admin: 03/04/22 07:45 Dose: 10 mg Documented By: AURA Gabapentin (Gabapentin 400 Mg Capsule) 400 mg PO BID [facility] Last Admin: 03/04/22 07:45 Dose: 400 mg Documented By: AURA Hydroxyzine HCl (Hydroxyzine Hcl 25 Mg Tablet) 25 mg PO Q6H PRN PRN Reason: anxiety/restlessness Last Admin: 03/02/22 23:03 Dose: 25 mg Documented By: BELLA Piperacillin Sod/Tazobactam (Sod 2.25 gm/ Sodium Chloride) 50 mls @ 100 mls/hr IV Q6H [facility] Last Infusion: 03/04/22 06:44 Dose: 0 mls/hr Documented By: TUAN Vancomycin HCl 1,250 mg/ (Sodium Chloride) 250 mls @ 166.667 mls/hr IV Q24H [facility] Last Infusion: 03/03/22 23:07 Dose: 0 mls/hr Documented By: TUAN Metoprolol Tartrate (Metoprolol Tartrate 50 Mg Tablet) 50 mg PO BID [facility]; Protocol Last Admin: 03/04/22 07:45 Dose: 50 mg Documented By: AURA Morphine Sulfate (Morphine Sulfate 4 Mg/Ml Cartridge) 4 mg IVPUSH Q4H PRN; Protocol PRN Reason: Pain, Severe (Pain Scale 7-10) Last Admin: 03/04/22 05:45 Dose: 4 mg Documented By: TUAN Omeprazole (Omeprazole 20 Mg Capsule.Dr) 20 mg PO DAILY [facility] Last Admin: 03/04/22 07:45 Dose: 20 mg Documented By: AURA Ondansetron HCl (Ondansetron Hcl 4 Mg/2 Ml Vial) 4 mg IVPUSH Q8H PRN PRN Reason: Nausea and Vomiting Last Admin: 03/02/22 22:50 Dose: 4 mg Documented By: BELLA Oxycodone HCl (Oxycodone Hcl Immed Release 5 Mg Tablet) 5 mg PO Q6H PRN PRN Reason: pain (scale score 7-10) Pharmacy Consult (Consult Rx Perform Med Rec) 1 each MISCELLANE ONCE PRN PRN Reason: Consult order Pharmacy Consult (Consult Rx Vancomycin Dosing) 1 each MISCELLANE DAILY PRN PRN Reason: Consult order Polyethylene Glycol (Polyethylene Glycol 3350 17 Gm Powd.Pack) 17 gm PO BID [facility] Last Admin: 03/04/22 07:45 Dose: 17 gm Documented By: AURA Sodium Chloride (0.9 % Sodium Chloride Flush 3 Ml Syringe) 3 ml IVFLUSH QSHIFT [facility] Last Admin: 03/04/22 07:51 Dose: 3 ml Documented By: AURA Trazodone HCl (Trazodone Hcl 100 Mg Tablet) 300 mg PO BEDTIME [facility] Last Admin: 03/03/22 20:27 Dose: 300 mg Documented By: TUAN Labs CBC & Chem 7: 03/04/22 05:53 03/04/22 05:53 Labs: Laboratory Results - last 24 hr 03/03/22 03/04/22 03/04/22 19:56 05:53 05:53 MCV 93.2 MCH 30.6 MCHC 32.8 RDW 13.9 Plt Count 391 MPV 9.7 Absolute Nucleated RBC 0.000 Nucleated RBC % (auto) 0.0 Anion Gap Estim Creat Clear Calc 61.2 Estimated GFR > 60 POC Glucose 166 H Random Glucose Calcium 03/04/22 05:53 MCV MCH MCHC RDW Plt Count MPV Absolute Nucleated RBC Nucleated RBC % (auto) Anion Gap 13 Estim Creat Clear Calc 58.5 Estimated GFR > 60 POC Glucose Random Glucose 140 H Calcium 7.7 L Microbiology Microbiology Results: Microbiology 03/02/22 11:02 Blood Culture - Preliminary Blood - Venous No growth after 24 hours. 03/02/22 11:02 Blood Culture - Preliminary Blood - Venous No growth after 24 hours. 03/02/22 14:42 Urine Culture - Final Urine clean catch - Urine sorensen top Assessment and Plan (1) Surgical wound infection: Status: Acute (2) Sepsis: Status: Acute Plan A 71 years old lady with PMH of breast cancer post bilateral mastectomy, HTN, diabetes, among others who presented to the hospital complaining fevers and confusion for 1 day prior to admission. Toxic metabolic encephalopathy 2/2 Sepsis secondary to surgical wound infection Sepsis resolved Less purulent drainage, GENET drain open and passing serous and purulent material mainly left-sided Pending blood cultures Continue vancomycin and Zosyn Surgery team following Morphine for pain Hold amitriptyline, decrease gabapentin Recurrent orientation Acute kidney injury Creatinine improved back to 0.8 Monitor intake and output Follow BMP Constipation CT concerning for possible ileus Likely secondary to decreased activity and pain medication Bowel regimen , suppository Monitor response Type 2 diabetes SSI, hold Lantus Diabetic diet Hypertension Continue amlodipine, metoprolol DVT PPX Lovenox Patient will need Overnight hospital stay for evaluation treatment of sepsis pending final cultures to prevent possible decompensation Quality Stroke Does the patient have a stroke diagnosis?: No VTE Prior VTE?: No VTE Risk Level:: Medical - moderate - high VTE Device Contraindication: Treatment Not Indicated VTE Drug Contraindication: N/A - Med Ordered
[2022-03-04] MEDS: oxyCODONE HCl Immed Release 5 MG TABLET PO ×2 (12:31→18:25)
[2022-03-04] MEDS: Enoxaparin Sodium 40 MG/0.4 ML SYRINGE SUBCUT (17:26)
[2022-03-04] MEDS: vancomycin HCL 1,250 MG in 0.9 % Sodium Chloride 250 ML 166.67 MG IV (18:24)
[2022-03-04] MEDS: Acetaminophen 325 MG TABLET 650 MG PO (18:25)
[2022-03-04] MEDS: traZODone HCL 100 MG TABLET 300 MG PO (20:42)
[2022-03-05] MEDS: Piperacillin Sodium/Tazobactam 2.25 GM in 0.9 % Sodium Chloride 50 ML IV ×3 (00:28→12:58)
[2022-03-05 03:44] VITALS: BP 143/72; PULSE 66; RESP 18; TEMP 36.3; O2SAT 96
[2022-03-05 05:28] LABS: Hemoglobin 9.7 g/dl (12.0-16.0); Mean Corpuscular HGB Conc 32.3 g/dl (31.0-35.0); Mean Corpuscular Hemoglobin 30.2 pg (27.0-33.0); Mean Corpuscular Volume 93.5 fL (80.0-98.0); Mean Platelet Volume 9.5 fL (9.4-12.3); Platelet Count 397 X10*3/uL (160-400); Red Blood Count 3.21 X10*6/uL (4.20-5.50); Red Cell Distribution Width 14.1 % (11.0-16.0); White Blood Count 9.1 X10*3/uL (4.8-10.8)
[2022-03-05 05:44] LABS: Anion Gap 15 (12-20); Blood Urea Nitrogen 12 mg/dL (9-16); Calcium 7.7 mg/dL (8.4-10.2); Carbon Dioxide 20 mmol/L (22-29); Chloride 108 mmol/L (96-108); Creatinine Clr Calc Pharmacy 54.2; Estimated Glomerular Filt Rate 56; Glucose Random 141 mg/dL (60-115); Sodium 139 mmol/L (135-145)
[2022-03-05] MEDS: Dicyclomine HCl 10 MG CAPSULE 20 MG PO ×2 (05:51→11:53)
[2022-03-05] MEDS: Escitalopram Oxalate 10 MG TABLET PO (08:56)
[2022-03-05] MEDS: 0.9 % Sodium Chloride Flush 3 ML SYRINGE IVFLUSH (08:56)
[2022-03-05] MEDS: Metoprolol Tartrate 50 MG TABLET PO (08:56)
[2022-03-05] MEDS: amLODIPine Besylate 5 MG TABLET PO (08:56)
[2022-03-05] MEDS: Gabapentin 400 MG CAPSULE PO (08:56)
[2022-03-05] MEDS: Omeprazole 20 MG CAPSULE.DR PO (08:56)
[2022-03-05] MEDS: Atorvastatin Calcium 20 MG TABLET PO (08:56)
--- NOTE | 2022-03-05 09:01 | P.PNGS_ITS ---
Subjective Subjective Date of Service: 03/05/22 Interval history: patient says she is comfortable, feels better as per daughter - has been mildly confused since postop has had no fever Physical Exam Vital Signs: Vital Signs: Last Vital Signs Temp 97.4 F 03/05/22 03:44 Pulse 66 03/05/22 03:44 Resp 18 03/05/22 03:44 BP 143/72 H 03/05/22 03:44 Pulse Ox 96 03/05/22 03:44 O2 Del Method 03/05/22 03:44 BMI result Body Mass Index 31.9 Const: General: comfortable and no acute distress Chest: Other: mastectomy sites with minimal cellulitic changes, [address], scanty output, thicker fluid on left side Resp: Effort & Inspection: normal respiratory effort Cardio: Rate: regular rate Objective Data Active Medications Acetaminophen (Acetaminophen 325 Mg Tablet) 650 mg PO Q6H PRN PRN Reason: Pain, Mild (Pain Scale 1-3) Last Admin: 03/04/22 18:25 Dose: 650 mg Documented By: AURA Amlodipine Besylate (Amlodipine Besylate 5 Mg Tablet) 5 mg PO DAILY [facility]; P rotocol Last Admin: 03/05/22 08:56 Dose: 5 mg Documented By: RUIZ Atorvastatin Calcium (Atorvastatin Calcium 20 Mg Tablet) 20 mg PO DAILY [facility] Last Admin: 03/05/22 08:56 Dose: 20 mg Documented By: RUIZ Cyclobenzaprine HCl (Cyclobenzaprine Hcl 10 Mg Tablet) 10 mg PO TID PRN PRN Reason: muscle spasm Last Admin: 03/03/22 20:27 Dose: 10 mg Documented By: TUAN Dicyclomine HCl (Dicyclomine Hcl 10 Mg Capsule) 20 mg PO Q6H [facility] Last Admin: 03/05/22 05:51 Dose: 20 mg Documented By: TERESA Enoxaparin Sodium (Enoxaparin Sodium 40 Mg/0.4 Ml Syringe) 40 mg SUBCUT Q24H [facility] Last Admin: 03/04/22 17:26 Dose: 40 mg Documented By: AURA Escitalopram Oxalate (Escitalopram Oxalate 10 Mg Tablet) 10 mg PO DAILY [facility] Last Admin: 03/05/22 08:56 Dose: 10 mg Documented By: RUIZ Gabapentin (Gabapentin 400 Mg Capsule) 400 mg PO BID [facility] Last Admin: 03/05/22 08:56 Dose: 400 mg Documented By: RUIZ Hydroxyzine HCl (Hydroxyzine Hcl 25 Mg Tablet) 25 mg PO Q6H PRN PRN Reason: anxiety/restlessness Last Admin: 03/02/22 23:03 Dose: 25 mg Documented By: BELLA Piperacillin Sod/Tazobactam (Sod 2.25 gm/ Sodium Chloride) 50 mls @ 100 mls/hr IV Q6H [facility] Last Infusion: 03/05/22 06:40 Dose: 0 mls/hr Documented By: TERESA Vancomycin HCl 1,250 mg/ (Sodium Chloride) 250 mls @ 166.667 mls/hr IV Q24H [facility] Last Infusion: 03/04/22 20:39 Dose: 0 mls/hr Documented By: TERESA Metoprolol Tartrate (Metoprolol Tartrate 50 Mg Tablet) 50 mg PO BID [facility]; Protocol Last Admin: 03/05/22 08:56 Dose: 50 mg Documented By: RUIZ Morphine Sulfate (Morphine Sulfate 4 Mg/Ml Cartridge) 4 mg IVPUSH Q4H PRN; Protocol PRN Reason: Pain, Severe (Pain Scale 7-10) Last Admin: 03/04/22 22:08 Dose: 4 mg Documented By: TERESA Omeprazole (Omeprazole 20 Mg Capsule.Dr) 20 mg PO DAILY [facility] Last Admin: 03/05/22 08:56 Dose: 20 mg Documented By: RUIZ Ondansetron HCl (Ondansetron Hcl 4 Mg/2 Ml Vial) 4 mg IVPUSH Q8H PRN PRN Reason: Nausea and Vomiting Last Admin: 03/02/22 22:50 Dose: 4 mg Documented By: BELLA Oxycodone HCl (Oxycodone Hcl Immed Release 5 Mg Tablet) 5 mg PO Q6H PRN PRN Reason: pain (scale score 7-10) Last Admin: 03/04/22 18:25 Dose: 5 mg Documented By: AURA Pharmacy Consult (Consult Rx Perform Med Rec) 1 each MISCELLANE ONCE PRN PRN Reason: Consult order Pharmacy Consult (Consult Rx Vancomycin Dosing) 1 each MISCELLANE DAILY PRN PRN Reason: Consult order Polyethylene Glycol (Polyethylene Glycol 3350 17 Gm Powd.Pack) 17 gm PO BID [facility] Last Admin: 03/05/22 08:56 Dose: 17 gm Documented By: RUIZ Sodium Chloride (0.9 % Sodium Chloride Flush 3 Ml Syringe) 3 ml IVFLUSH QSHIFT [facility] Last Admin: 03/05/22 08:56 Dose: 3 ml Documented By: RUIZ Trazodone HCl (Trazodone Hcl 100 Mg Tablet) 300 mg PO BEDTIME [facility] Last Admin: 03/04/22 20:42 Dose: 300 mg Documented By: TERESA Labs CBC & Chem 7: 03/05/22 05:21 03/05/22 05:21 Labs: Laboratory Results - last 24 hr 03/04/22 03/04/22 03/05/22 17:06 20:46 05:21 MCV MCH MCHC RDW Plt Count MPV Absolute Nucleated RBC Nucleated RBC % (auto) Anion Gap Estim Creat Clear Calc Cancelled Estimated GFR Cancelled POC Glucose 179 H Random Glucose Calcium Vancomycin Trough 10.0 03/05/22 03/05/22 05:21 05:21 MCV 93.5 MCH 30.2 MCHC 32.3 RDW 14.1 Plt Count 397 MPV 9.5 Absolute Nucleated RBC 0.000 Nucleated RBC % (auto) 0.0 Anion Gap 15 Estim Creat Clear Calc 54.2 Estimated GFR 56 POC Glucose Random Glucose 141 H Calcium 7.7 L Vancomycin Trough Microbiology Microbiology Results: Microbiology 03/02/22 11:02 Blood Culture - Preliminary Blood - Venous No growth after 48 hours. 03/02/22 11:02 Blood Culture - Preliminary Blood - Venous No growth after 48 hours. Procedures Date of Service Date of Service: 03/05/22 Progress Note: A&P Assessment and plan (1) Surgical wound infection: Status: Acute Assessment and Plan: post mastectomy with infection collection drained on its own with GENET looks well has had no fever WBC normal minimal leukocytosis keep drains in place antbiotic coverage looks well if discharged, ffup with Dr. Malik later this week Time Spent With Patient Time: Total time spent is greater than 50% in coordination of care (as documented) at patient's floor/unit and/or counseling patient: Quality Stroke Does the patient have a stroke diagnosis?: No VTE Prior VTE?: No VTE Risk Level:: Medical - moderate - high VTE Device Contraindication: Treatment Not Indicated VTE Drug Contraindication: N/A - Med Ordered
[2022-03-05 10:38] VITALS: BP 143/72; PULSE 66; O2SAT 96
--- NOTE | 2022-03-05 11:20 | PM.DS ---
DS: Providers Provider Date of Service: 03/05/22 Date of admission: 03/02/22 17:40 Primary care physician: Milan Mcgraw PA-C DS: Diagnosis Discharge Diagnosis (1) Surgical wound infection: Status: Acute (2) Sepsis: Status: Acute (3) Ileus: Status: Acute (4) Toxic metabolic encephalopathy: Status: Acute (5) QUIN (acute kidney injury): Status: Acute DS: Summary Hospital Course Hospital Course: Admission note HPI A 71 years old lady with PMH of breast cancer post bilateral mastectomy, HTN, diabetes, among others who presented to the hospital complaining fevers and confusion for 1 day prior to admission.? The patient had bilateral mastectomy on 02/19/[address] Malik.? Discharged home on day 3 with 2 drains on side at that point with clear drainage.? She was evaluated later at the surgical office with no reported concerns.? For the last 1 day she noticed dark pus containing drainage mainly from the left side associated with fever and increased confusion. [place] [id number] scan of the chest consistent with small collection at the left side of the chest.? Evaluated by surgery as the Zach-Spear drain was adjusted and the clot removed from it draining large amount of purulence collection. Would be admitted for further evaluation and treatment. Hospital course The patient was admitted for evaluation of toxic metabolic encephalopathy secondary to sepsis from surgical wound infection post bilateral mastectomy a week prior to admission. Evaluated by surgical team at presentation as a GENET drain was reopened draining large amount of purulent material. Sepsis resolved as the patient started on broad-spectrum antibiotic of vancomycin and Zosyn. Mentation start improved but kept fluctuating during day and night likely related to inpatient delirium. Blood cultures remain negative. Patient will be discharged on doxycycline and Augmentin to finish total of 10 days of antibiotic with plan to follow-up with Dr. Malik in the office later this week. Noted to have acute kidney injury which improved back to baseline with usage of IV fluid creatinine back to 0.8. CT scan concerning for possible ileus. Patient reported constipation. Started on bowel regimen with good response as she moved her bowels. Continue doxycycline and Augmentin for 1 more week as prescribed To follow-up with Dr. Malik in the office later this week Time Spent with Patient Time attestation: Total time spent providing and/or coordinating discharge services: Discharge coordination time: Greater than 30 minutes Quality: Safe Use of Opioids Does Pt have an Active Cancer Diagnosis on the Problem List?: Yes Opioid Measure Date for [facility] Report: 02/03/22 Opioid Measure Time for [facility] Report: 11:24 Quality: Stroke Does the patient have a stroke diagnosis?: No Physical Exam Vital Signs: Vital Signs: Last Vital Signs Temp 97.4 F 03/05/22 03:44 Pulse 66 03/05/22 10:38 Resp 18 03/05/22 03:44 BP 143/72 H 03/05/22 10:38 Pulse Ox 96 03/05/22 10:38 O2 Del Method 03/05/22 03:44 BMI result Body Mass Index 31.9 Const: Other: Constitutional : Alert , interactive Neck : Normal inspection, Supple Cardiovascular : RRR, no JVP, no lower extremity edema Respiratory : fair bilateral air entry, no crackles, wheezes or rhonchi Gastrointestinal: soft, lax, Normal bowel sounds, Non tender Skin : Warm, Dry, bilateral mastectomy site looks clean with no drainage, left side less swollen with Lt GENET drainage of serous material, right-sided drainage more serous, bilateral tenderness more on the left Neurological : Alert & oriented to self only, No focal deficit DS: Data Data Completed and Pending Completed studies during hospitalization [Text1]: Procedures Resection of Bilateral Breast, Open Approach (02/19/22) Resection of Right Axillary Lymphatic, Open Approach (02/19/22) Labs on day of discharge: Laboratory Results - last 24 hr 03/04/22 03/04/22 03/05/22 17:06 20:46 05:21 WBC RBC Hgb Hct MCV MCH MCHC RDW Plt Count MPV Absolute Nucleated RBC Nucleated RBC % (auto) Sodium Potassium Chloride Carbon Dioxide Anion Gap BUN Creatinine Cancelled Estim Creat Clear Calc Cancelled Estimated GFR Cancelled POC Glucose 179 H Random Glucose Calcium Vancomycin Trough 10.0 03/05/22 03/05/22 05:21 05:21 WBC 9.1 RBC 3.21 L Hgb 9.7 L Hct 30.0 L MCV 93.5 MCH 30.2 MCHC 32.3 RDW 14.1 Plt Count 397 MPV 9.5 Absolute Nucleated RBC 0.000 Nucleated RBC % (auto) 0.0 Sodium 139 Potassium 4.0 Chloride 108 Carbon Dioxide 20 L Anion Gap 15 BUN 12 Creatinine 0.97 Estim Creat Clear Calc 54.2 Estimated GFR 56 POC Glucose Random Glucose 141 H Calcium 7.7 L Vancomycin Trough Preliminary micro results at discharge 03/02/22 11:02 Blood Culture - Preliminary Blood - Venous No growth after 48 hours. 03/02/22 11:02 Blood Culture - Preliminary Blood - Venous No growth after [address] scan - abdomen: Radiologist's impression: ITS Impressions Abdomen/Pelvis CT 03/02/22 12:33 IMPRESSION: Diverticulosis and constipation. Fluid-filled distended loops of small bowel probably representing an ileus. Bilateral renal cysts. Mild intra and extrahepatic biliary duct dilatation similar to previous exams probably normal postcholecystectomy Fleischner guidelines were followed. Chest CTA 03/02/22 12:33 IMPRESSION: Limited exam due to respiratory motion artifact. No evidence of large or central pulmonary embolism. Evaluation of smaller segmental and subsegmental pulmonary arteries is limited. No evidence of pneumonia. No pleural effusion. Enlarged heart. Postsurgical changes following bilateral mastectomy. Fluid collection in the left chest wall as described above. VTE: negative Discharge Plan Discharge Anticipated Discharge Date/Time: 03/05/22 11:17 Patient Disposition: Home, Self-Care Discharge Diagnosis: Surgical wound infection Sepsis Referrals: Milan Mcgraw PA-C [Primary Care Provider] - 1 Week Discharge Medications: New doxycycline monohydrate 100 mg capsule 100 mg PO BID Qty: 14 0RF amoxicillin-pot clavulanate 875-125 mg tablet 1 tab PO Q12H Qty: 14 0RF Continued (DME) blood-glucose meter [FreeStyle Lite Meter] Kit See Rx Instructions .ROUTE .MEDSUPPLY Qty: 1 0RF Rx Instructions: As directed oxycodone 5 mg tablet 10 mg PO Q6H PRN (Reason: Severe Pain (Scale Score 7-10)) polyethylene glycol 3350 [Miralax] 17 gram/dose powder 17 g PO BID PRN (Reason: constipation) Qty: 119 0RF loperamide 2 mg capsule 2 mg PO QID amitriptyline 10 mg tablet 10 mg PO BEDTIME Qty: 90 1RF (DME) lancets [FreeStyle Lancets] 28 gauge misc See Rx Instructions .ROUTE .MEDSUPPLY Qty: 100 3RF Rx Instructions: As directed (DME) FreeStyle Lite Strips Strip See Rx Instructions .ROUTE .MEDSUPPLY Qty: 100 3RF Rx Instructions: As directed acetaminophen 650 mg tablet extended release 650 mg PO Q12H 90 Days Qty: 180 1RF amlodipine 5 mg tablet 5 mg PO DAILY Qty: 90 1RF atorvastatin 20 mg tablet 20 mg PO DAILY Qty: 90 1RF citalopram 20 mg tablet 20 mg PO DAILY Qty: 90 1RF cyclobenzaprine 10 mg tablet 10 mg PO TID PRN (Reason: muscle spasm) 15 Days Qty: 45 3RF gabapentin 800 mg tablet 800 mg PO BID 30 Days Qty: 60 3RF dicyclomine 10 mg capsule 20 mg PO Q6H 30 Days Qty: 240 0RF ibuprofen 800 mg tablet 800 mg PO Q8H 90 Days Qty: 270 1RF metoprolol tartrate 50 mg tablet 50 mg PO BID Qty: 180 2RF omeprazole 20 mg capsule,delayed release(DR/EC) 20 mg PO DAILY 90 Days Qty: 90 1RF trazodone 100 mg tablet 300 mg PO BEDTIME 90 Days Qty: 270 2RF oxycodone 5 mg tablet 5 mg PO Q6H PRN (Reason: pain (scale score 7-10)) Qty: 20 0RF Rx Instructions: Partial Fill upon patient request. Discharge Orders: Discharge Order (Routine); Ordered 03/05/22 Ordered By: David Conde Diet: Advance to usual diet Activity on Discharge: As tolerated Stand Alone Forms: Patient Portal Discharge page Care Plan Goals: Read below Health Concerns: Read below Plan of Treatment: Read below Assessment: You were admitted to the hospital for evaluation of sepsis secondary to surgical wound infection. Treated with IV antibiotics with good response over the course of hospital stay as blood cultures remain negative. Evaluated by Dr. Malik who recommended to follow-up in the clinic as outpatient. Continue doxycycline and Augmentin for 1 more week as prescribed To follow-up with Dr. Malik in the office later this week
[2022-03-05 11:23] VITALS: BP 143/77; PULSE 72; RESP 18; TEMP 37.1; O2SAT 96
--- NOTE | 2022-03-05 13:12 | MHC.CM.PN ---
Addendum entered by Laura Caldwell RN 03/05/22 14:38: DAUGHTER CANNOT TRANSFER PATIENT. [facility] SET FOR 1730 FROM [facility] TO HER HOME IN [place]. RN AWARE OF PLAN Original Note: DAUGHTER CAROLYNE IN ROOM TO TAKE PATIENT HOME TODAY MESSAGE LEFT FOR [facility] RN ZABRINA ([phone]) INFORMING HER OF PATIENT'S DC RN AWARE OF PLAN.
[2022-03-05 15:58] VITALS: BP 175/78; PULSE 80; RESP 18; TEMP 37.2; O2SAT 97
== END 2022-03-05 18:32 | disposition home or self-care (01) | DRG 862 ==
LOC: HO.ED 14:23 → HO.EDOVER 18:08 → HO.S3 03-03 00:37
PROVIDERS: Physician Assistant Medical; Admitting Provider Student in an Organized Health Care Education/Training Program; Emergency Provider Emergency Medicine Emergency Medical Services; PCP Physician Assistant; Visit Provider Student in an Organized Health Care Education/Training Program
DX: T81.44XA Sepsis following a procedure, initial encounter (principal); A41.9 Sepsis, unspecified organism; G92.8 Other toxic encephalopathy; N17.9 Acute kidney failure, unspecified; K56.7 Ileus, unspecified; T81.41XA Infection following a procedure, superficial incisional surgical site, initial encounter; M19.90 Unspecified osteoarthritis, unspecified site; K21.9 Gastro-esophageal reflux disease without esophagitis; I10 Essential (primary) hypertension; E11.9 Type 2 diabetes mellitus without complications; K59.03 Drug induced constipation; T40.605A Adverse effect of unspecified narcotics, initial encounter; Y83.8 Other surgical procedures as the cause of abnormal reaction of the patient, or of later complication, without mention of misadventure at the time of the procedure; C50.912 Malignant neoplasm of unspecified site of left female breast; C50.911 Malignant neoplasm of unspecified site of right female breast; Z90.13 Acquired absence of bilateral breasts and nipples; Z20.822 Contact with and (suspected) exposure to COVID-19; Z98.1 Arthrodesis status; Z79.899 Other long term (current) drug therapy
CPT/HCPCS: 36415; 71275; 74177; 80048; 80053; 80202; 81001; 82565; 82947; 83605; 83735; 85025; 85027; 87040; 87086; 87635; 93005; 97162; 99285; J0690; J1650; J2270; J2405; J2543; J3370; Q9967

== ENCOUNTER 2022-03-22 09:49 | Outpatient (REF) | payer OTHER, SELFPAY ==
[2022-03-22 10:58] LABS: Hematocrit 36.3 % (37.0-47.0); Hemoglobin 11.5 g/dl (12.0-16.0); Mean Corpuscular HGB Conc 31.7 g/dl (31.0-35.0); Mean Corpuscular Hemoglobin 29.5 pg (27.0-33.0); Mean Corpuscular Volume 93.1 fL (80.0-98.0); Mean Platelet Volume 9.4 fL (9.4-12.3); Platelet Count 588 X10*3/uL (160-400); Red Cell Distribution Width 13.6 % (11.0-16.0); White Blood Count 11.5 X10*3/uL (4.8-10.8)
[2022-03-22 11:46] LABS: Alanine Aminotransferase 14 U/L (0-31); Albumin Level 3.8 g/dL (3.5-5.0); Alkaline Phosphatase 105 U/L (39-117); Anion Gap 17 (12-20); Aspartate Amino Transferase 16 U/L (5-31); Bilirubin Total 0.2 mg/dL (0.0-1.0); Blood Urea Nitrogen 17 mg/dL (9-16); Calcium 9.4 mg/dL (8.4-10.2); Carbon Dioxide 25 mmol/L (22-29); Chloride 102 mmol/L (96-108); Cholesterol 171 mg/dL; Estimated Glomerular Filt Rate 57; Glucose Fasting 100 mg/dL (60-99); HDL Cholesterol 44 mg/dL; LDL Cholesterol Calculated 103 mg/dl; Potassium 5.1 mmol/L (3.3-5.1); Sodium 139 mmol/L (135-145); Total Protein 7.2 g/dL (6.5-8.0); Triglycerides 122 mg/dL
[2022-03-22 11:48] LABS: TSH reflex Free T4 1.23 uIU/mL (0.32-4.0)
[2022-03-22 11:52] LABS: Creatinine Urine 133.05 mg/dL
== END 2022-03-22 09:50 | disposition home or self-care (01) ==
LOC: HO.LAB 09:49
PROVIDERS: PCP Physician Assistant; Visit Provider Physician Assistant
DX: I10 Essential (primary) hypertension (principal); R73.03 Prediabetes; T81.40XA Infection following a procedure, unspecified, initial encounter
CPT/HCPCS: 36415; 80048; 80053; 80061; 82043; 84443; 85027

== ENCOUNTER 2022-03-26 09:55 | Outpatient (REF) | payer OTHER, SELFPAY ==
--- NOTE | ~2022-03-26 | CT_ITS ---
EXAMINATION: CT HEAD WITHOUT CONTRAST CLINICAL INFORMATION: Unspecified head injury. COMPARISON: Brain MRI dated 04/23/2019. TECHNIQUE: Contiguous axial imaging was performed from the skullbase to vertex without intravenous administration of contrast. This CT examination was performed using dose optimization techniques as appropriate, variously including the following: *Automated exposure control *Adjustment of mA and/or kV according to patient size (this includes techniques or standardized protocols for targeted exams where dose is matched to indication/reason for exam; i.e. extremities or head) *Use of iterative reconstruction technique DLP: 656 mGy-cm. FINDINGS: There is no evidence of acute intracranial hemorrhage or territorial infarction. No abnormal mass effect or midline shift is seen. [place] to white matter differentiation is well preserved. No extra-axial fluid collections are identified. Empty sella noted. There is moderate diffuse parenchymal volume loss and ex vacuo dilatation of the ventricles with [id number] chronic white matter microangiopathy. The osseous structures and soft tissues are normal. The mastoid air cells and visualized portions of the paranasal sinuses are well aerated. CT/CT head/brain wo IV con IMPRESSION: No acute intracranial pathology. Moderate diffuse parenchymal volume loss and [id number] chronic white matter microangiopathy.
== END 2022-03-26 09:56 | disposition home or self-care (01) ==
LOC: HO.CT 09:55
PROVIDERS: PCP Physician Assistant; Visit Provider Physician Assistant
DX: S09.90XA Unspecified injury of head, initial encounter (principal)
CPT/HCPCS: 70450

== ENCOUNTER 2022-03-30 12:34 | Inpatient (IN) | payer OTHER, SELFPAY ==
--- NOTE | ~2022-03-30 | US_ITS ---
EXAMINATION: US BREAST (CHEST WALL), LEFT CLINICAL INFORMATION: Status post mastectomy 02/19/2022. Fullness left chest mastectomy site. Prior aspirations seroma at surgical office. Erythema, possible cellulitis. Assess for collection. COMPARISON: Ultrasound-guided left breast biopsy 01/31/2022, left breast tomography 01/26/2022. TECHNIQUE: Ultrasound of the anterior left chest wall at site of recent mastectomy is performed using linear and curvilinear ultrasound with grayscale imaging and color Doppler. Based discussed with impregnating tank operator. FINDINGS: There is a there is a circumscribed fluid collection in the area of chest wall fullness measuring approximately 8.9 x 5.2 x 4.2 cm. Numerous fine internal septations are present. Color flow images suggest artifact from respiratory motion. There is no appreciable circumferential hyperemia or internal color flow. There is mild skin thickening. No edema tracking in soft tissue planes. Findings called and discussed with surgical service, MARTELL Benítez on 04/03/2022 at 1050 hours. US/US breast LT limited IMPRESSION: Circumscribed complicated fluid collection with numerous internal septations anterior left chest wall measuring 8.9 x 5.2 x 4.2 cm. No circumferential hyperemia on color Doppler. Finding may represent seroma. Ultrasound-guided aspiration may be helpful to obtain fluid for microbiology and exclude infection.
[2022-03-30 12:37] VITALS: BP 160/82; PULSE 80; RESP 20; TEMP 36.8; O2SAT 96; BMI 38.0
[2022-03-30 12:49] LABS: MANUAL DIFF FLAG NO
[2022-03-30 12:50] LABS: Basophils Percent Auto 0.2 % (0-2); Eosinophils Absolute Auto 0.2 X10*3/uL (0.0-0.4); Eosinophils Percent Auto 2.1 % (0-4); Hematocrit 36.5 % (37.0-47.0); Hemoglobin 11.8 g/dl (12.0-16.0); Imm Gran Abs Auto 0.02 X10*3/uL (0.00-0.03); Imm Gran Pct Auto 0.2 % (0.0-0.4); Mean Corpuscular HGB Conc 32.3 g/dl (31.0-35.0); Mean Corpuscular Hemoglobin 29.7 pg (27.0-33.0); Mean Corpuscular Volume 91.9 fL (80.0-98.0); Mean Platelet Volume 9.2 fL (9.4-12.3); Monocytes Absolute Auto 0.6 X10*3/uL (0.1-1.2); Monocytes Percent Auto 6.3 % (2-11); Neutrophils Absolute Auto 6.4 x10*3/uL (2.0-8.3); Neutrophils Percent Auto 69.2 % (45-73); Platelet Count 443 X10*3/uL (160-400); Red Blood Count 3.97 X10*6/uL (4.20-5.50); Red Cell Distribution Width 13.2 % (11.0-16.0); White Blood Count 9.2 X10*3/uL (4.8-10.8)
[2022-03-30 13:18] LABS: Anion Gap 21 (12-20); Blood Urea Nitrogen 19 mg/dL (9-16); Calcium 9.2 mg/dL (8.4-10.2); Carbon Dioxide 19 mmol/L (22-29); Chloride 103 mmol/L (96-108); Creatinine Clr Calc Pharmacy 51.3; Estimated Glomerular Filt Rate > 60; Glucose Random 98 mg/dL (60-115); Potassium 4.7 mmol/L (3.3-5.1); Sodium 138 mmol/L (135-145)
--- NOTE | 2022-03-30 14:12 | ED.SKABFB ---
HPI - Skin/Abscess/Foreign Bdy General Chief complaint: Skin/Abscess/Foreign Body Stated complaint: infection Time Seen by Provider: 03/30/22 14:10 Source: patient, family and old records reviewed Mode of arrival: ambulatory Limitations: no limitations History of Present Illness HPI narrative: 71 yo female hx of HTN, dementia, GERD, HTN, prediabetes - had recent mastectomy now with infection at incision site was taking doxycycline which isn't helping. Has fevers chills body aches and pain MD complaint: rash and lesion Onset (ago): week(s) (for past couple of weeks) Tetanus up to date: yes Location: chest Severity: moderate Quality: aching and constant Pain Consistency: constant Relieving factors: none Exacerbating factors: palpation and movement Context: recent illness and recent antibiotic Associated symptoms: fever, chills and myalgias Treatments prior to arrival: antibiotic Related Data Home Medications Medication Instructions Recorded Confirmed doxycycline monohydrate 100 mg 1 cap PO BID 03/30/22 03/30/22 capsule tramadol 50 mg tablet 1 tab PO TID PRN Pain 03/30/22 03/30/22 Previous Rx's Medication Instructions Recorded blood-glucose meter (FreeStyle #1 ea 05/25/20 Lite Meter kit) blood sugar diagnostic (FreeStyle #100 ea 07/25/21 Lite Strips) lancets 28 gauge (FreeStyle #100 ea 07/25/21 Lancets) polyethylene glycol 3350 17 17 g PO BID PRN constipation #119 09/29/21 gram/dose oral powder (Miralax) grams acetaminophen 650 mg 650 mg PO Q12H 90 days #180 tabs 01/24/22 tablet,extended release atorvastatin 20 mg tablet 20 mg PO DAILY #90 tabs 01/24/22 citalopram 20 mg tablet 20 mg PO DAILY #90 tabs 01/24/22 cyclobenzaprine 10 mg tablet 10 mg PO TID PRN muscle spasm 15 01/24/22 days #45 tabs dicyclomine 10 mg capsule 20 mg PO Q6H cramps 30 days #240 01/24/22 caps gabapentin 800 mg tablet 800 mg PO BID 30 days #60 tabs 01/24/22 ibuprofen 800 mg tablet 800 mg PO Q8H Pain 90 days #270 01/24/22 tabs metoprolol tartrate 50 mg tablet 50 mg PO BID #180 tabs 01/24/22 omeprazole 20 mg capsule,delayed 20 mg PO DAILY 90 days #90 caps 01/24/22 release trazodone 100 mg tablet 300 mg PO BEDTIME 90 days #270 tabs 01/24/22 amitriptyline 10 mg tablet 10 mg PO BEDTIME #90 tabs 03/08/22 amlodipine 10 mg tablet 10 mg PO DAILY 90 days #90 tabs 03/08/22 loperamide 2 mg capsule (Imodium 2 mg PO Q6H PRN loose stool #30 03/08/22 A-D) caps miscellaneous medical supply #1 ea 03/08/22 (Blood Pressure Cuff) Allergies Allergy/AdvReac Type Severity Reaction Status Date / Time No Known Allergies Allergy Verified 03/30/22 11:54 [No Known Allergies*] Review of Systems Review of Systems: Constitutional : pos Fever, pos Chills ENT/Mouth : No sore throat, No Rhinorrhea Eyes: No Eye Pain, No Swelling, No Redness Cardiovascular : No Chest Pain, No SOB Respiratory : No Cough, No Sputum Gastrointestinal : No Nausea, No Vomiting, No Diarrhea, No abdominal Pain Genitourinary : No Dysuria, No Hematuria Musculoskeletal : No joint pain, pos Myalgias, No Joint Swelling Skin : No Skin Lesions, positive skin rash Neuro : No Weakness, No Numbness, No Headache Psych : No Anxiety, No Depression Heme/Lymph: No Bruising, No Bleeding,No Lymphadenopathy Endocrine : No Polyuria, No Polydipsia All other systems reviewed and are negative PMFSH Past Medical History Attestation statement: The following information was validated with the patient. 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 Mother Heart disease Hypertension Colon cancer Maternal Grandmother Esophageal cancer Daughter Breast cancer Brother Colon cancer Sister Breast cancer Sister Breast cancer, Onset Age: 60 Social History Social History Household Members: None Housing: Apartment Are you a primary group care worker to a significant other at home: No Do you presently have visiting nurse or other home services: No Alcohol intake: unknown Patient Tobacco Use Status: Never used Tobacco e-Cigarette/Vaping Use: Never Used Second Hand Smoke Exposure: No Advance Directives: Yes Advance Directives on File: Yes Advance Directives Date on File: 09/26/21 service: No Current occupational status: disabled 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) Hearing needs: No Vision needs: Yes Physical Exam Vital Signs: Vital Signs: Last Vital Signs Temp 98.2 F 03/30/22 12:37 Pulse 80 03/30/22 12:37 Resp 20 03/30/22 12:37 BP 160/82 H 03/30/22 12:37 Pulse Ox 96 03/30/22 12:37 O2 Del Method 03/30/22 12:37 BMI result Body Mass Index 38.0 Appearance: Alert. Oriented at baseline No acute distress. Eyes: Pupils equal, round and reactive to light. ENT: Pharynx normal. Neck: Normal inspection. Neck supple. CVS: Normal heart rate and rhythm. Pulses normal. Chest wall: incision on R side is mildly erythematous no abscess noted, L side erythematous with ttp fluctuance and drainage - has covering on it Respiratory: No respiratory distress. Breath sounds normal. Abdomen: Soft and non-tender. Skin: Skin warm and dry. Normal skin color. Normal skin turgor. Extremities: No lower extremity edema. No calf ttp Neuro: Oriented at baseline. No motor deficit. No sensory deficit. MDM - Skin/Abscess/Foreign Bdy MDM Narrative Medical decision making narrative: 71 yo female hx of HTN, dementia, GERD, HTN, prediabetes - had recent mastectomy for which she has had post operative infection she has been taking doxycycline but it is not helping sent by surgery for IV antibiotics and admission Lab Data Result diagrams: 03/30/22 12:45 03/30/22 12:45 Labs: Lab Results 03/30/22 03/30/22 03/30/22 Range/Units 12:45 12:45 14:31 WBC 9.2 (4.8-10.8) X10*3/uL RBC 3.97 L (4.20-5.50) X10*6/uL Hgb 11.8 L (12.0-16.0) g/dl Hct 36.5 L (37.0-47.0) % MCV 91.9 (80.0-98.0) fL MCH 29.7 (27.0-33.0) pg MCHC 32.3 (31.0-35.0) g/dl RDW 13.2 (11.0-16.0) % Plt Count 443 H (160-400) X10*3/uL MPV 9.2 L (9.4-12.3) fL Immature Gran % (Auto) 0.2 (0.0-0.4) % Neut % (Auto) 69.2 (45-73) % Lymph % (Auto) 22.0 (20-40) % [place] % (Auto) 6.3 (2-11) % Eos % (Auto) 2.1 (0-4) % Baso % (Auto) 0.2 (0-2) % Lymph # (Auto) 2.0 (1.2-4.9) X10*3/uL [place] # (Auto) 0.6 (0.1-1.2) X10*3/uL Eos # (Auto) 0.2 (0.0-0.4) X10*3/uL Baso # (Auto) 0.0 (0.0-0.2) X10*3/uL Abs Immat Gran (auto) 0.02 (0.00-0.03) X10*3/uL Absolute Neuts (auto) 6.4 (2.0-8.3) x10*3/uL Absolute Nucleated RBC 0.000 (0.0-0.012) X10*3/uL Nucleated RBC % (auto) 0.0 (0.0-0.2) /100WBC Sodium 138 (135-145) mmol/L Potassium 4.7 (3.3-5.1) mmol/L Chloride 103 (96-108) mmol/L Carbon Dioxide 19 L (22-29) mmol/L Anion Gap 21 H (12-20) BUN 19 H (9-16) mg/dL Creatinine 0.85 (0.5-1.4) mg/dL Estim Creat Clear Calc 51.3 Estimated GFR > 60 Random Glucose 98 (60-115) mg/dL Lactic Acid 1.0 (0.5-2.0) mmol/L Calcium 9.2 (8.4-10.2) mg/dL Magnesium 1.8 (1.6-2.6) mg/dL Total Bilirubin 0.4 (0.0-1.0) mg/dL Direct Bilirubin < 0.2 (0.0-0.5) mg/dL AST 16 (5-31) U/L ALT 10 (0-31) U/L Alkaline Phosphatase 105 (39-117) U/L Total Protein 7.5 (6.5-8.0) g/dL Albumin 3.8 (3.5-5.0) g/dL COVID-19 ([facility]) (Negative) COVID-19 Clin Com 03/30/22 Range/Units 14:31 WBC (4.8-10.8) X10*3/uL RBC (4.20-5.50) X10*6/uL Hgb (12.0-16.0) g/dl Hct (37.0-47.0) % MCV (80.0-98.0) fL MCH (27.0-33.0) pg MCHC (31.0-35.0) g/dl RDW (11.0-16.0) % Plt Count (160-400) X10*3/uL MPV (9.4-12.3) fL Immature Gran % (Auto) (0.0-0.4) % Neut % (Auto) (45-73) % Lymph % (Auto) (20-40) % [place] % (Auto) (2-11) % Eos % (Auto) (0-4) % Baso % (Auto) (0-2) % Lymph # (Auto) (1.2-4.9) X10*3/uL [place] # (Auto) (0.1-1.2) X10*3/uL Eos # (Auto) (0.0-0.4) X10*3/uL Baso # (Auto) (0.0-0.2) X10*3/uL Abs Immat Gran (auto) (0.00-0.03) X10*3/uL Absolute Neuts (auto) (2.0-8.3) x10*3/uL Absolute Nucleated RBC (0.0-0.012) X10*3/uL Nucleated RBC % (auto) (0.0-0.2) /100WBC Sodium (135-145) mmol/L Potassium (3.3-5.1) mmol/L Chloride (96-108) mmol/L Carbon Dioxide (22-29) mmol/L Anion Gap (12-20) BUN (9-16) mg/dL Creatinine (0.5-1.4) mg/dL Estim Creat Clear Calc Estimated GFR Random Glucose (60-115) mg/dL Lactic Acid (0.5-2.0) mmol/L Calcium (8.4-10.2) mg/dL Magnesium (1.6-2.6) mg/dL Total Bilirubin (0.0-1.0) mg/dL Direct Bilirubin (0.0-0.5) mg/dL AST (5-31) U/L ALT (0-31) U/L Alkaline Phosphatase (39-117) U/L Total Protein (6.5-8.0) g/dL Albumin (3.5-5.0) g/dL COVID-19 ([facility]) Negative (Negative) COVID-19 Clin Com See Note Discharge Plan Discharge Clinical Impression: Cellulitis of chest wall Patient Disposition: Admitted As Inpatient
[2022-03-30] MEDS: ondansetron HCL 4 MG/2 ML VIAL IVPUSH (14:36)
[2022-03-30] MEDS: Piperacillin Sodium/Tazobactam 3.375 GM in 0.9 % Sodium Chloride 50 ML IV (14:36)
[2022-03-30] MEDS: Morphine Sulfate 4 MG/ML CARTRIDGE IVPUSH (14:36)
[2022-03-30 14:38] LABS: Alanine Aminotransferase 10 U/L (0-31); Albumin Level 3.8 g/dL (3.5-5.0); Alkaline Phosphatase 105 U/L (39-117); Aspartate Amino Transferase 16 U/L (5-31); Bilirubin Direct < 0.2 mg/dL (0.0-0.5); Bilirubin Total 0.4 mg/dL (0.0-1.0); Magnesium 1.8 mg/dL (1.6-2.6); Total Protein 7.5 g/dL (6.5-8.0)
--- NOTE | 2022-03-30 14:45 | PHA.MEDREC ---
Pharmacy Consult ? Medication Reconciliation Pharmacy has completed the medication reconciliation. Patient was recently seen and discharged on 03/05. Used discharge paperwork + pharmacy claims.
[2022-03-30 14:51] LABS: COVID-19 Test Negative (Negative)
[2022-03-30 15:38] VITALS: BP 157/59; PULSE 75; RESP 18; O2SAT 94
[2022-03-30] MEDS: Enoxaparin Sodium 40 MG/0.4 ML SYRINGE SUBCUT (15:41)
[2022-03-30] MEDS: 0.9 % Sodium Chloride Flush 3 ML SYRINGE IVFLUSH ×2 (15:41→23:09)
--- NOTE | 2022-03-30 15:48 | PM.HPGS ---
History of Present Illness History of Present Illness Date of Service: 03/30/22 Chief complaint: left breast cellultis Narrative: Beatriz Aguayo is a 71 year old female presenting status post bilateral mastectomy now with cellulitis of the left breast. She has a prior history of atypical ductal hyperplasia the by lumpectomy in the left breast in 2015. She also underwent lumpectomy in the right breast for a right breast carcinoma in 2003. 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 At the patient's request she underwent bilateral mastectomy on 02/19/2022. Soon after removal of her drains she developed an abscess of the left chest. She was admitted and started on IV antibiotics for several days. This subsequently resolved and she was subsequently discharged to home. She now presents with increased pain and redness once again on the left breast. She was trialed with oral antibiotics without much improvement. She was seen in the office today in approximately 35 mL of clear serous fluid drained from the left chest. She is admitted for IV antibiotics. Review of Systems Review of Systems: Yes all other systems are reviewed and are negative Constitutional: Constitutional: Reports body ache(s) and Reports weakness Cardiovascular: Cardiovascular: Reports dyspnea Respiratory: Respiratory: Denies chest congestion, Denies excessive phlegm production and Reports dyspnea Gastrointestinal: Gastrointestinal: Reports abdominal pain, Denies nausea and Denies vomiting Integumentary/Breasts: Skin/Breast: Reports as per HPI Neurologic: Reports behavioral changes, Reports confusion and Reports weakness Psychiatric: Psychiatric: Reports behavioral changes and Reports confusion Hematologic/Lymphatic: Hematologic/Lymphatic: Denies lymphadenopathy [facility] Past Medical History Medical History Arthritis Depression Diabetes 1.5, managed as type 2 GERD (gastroesophageal reflux disease) HTN (hypertension) IBS (irritable bowel syndrome) 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 Mother Heart disease Hypertension Colon cancer Maternal Grandmother Esophageal cancer Daughter Breast cancer Brother Colon cancer Sister Breast cancer Sister Breast cancer, Onset Age: 60 Surgical History Surgical History History of bilateral mastectomy (02/19/22) History of colonoscopy History of esophagogastroduodenoscopy (EGD) History of lumbar fusion History of lumpectomy of both breasts History of surgery Hx of appendectomy Hx of blepharoplasty Hx of cholecystectomy S/P [id number] (total abdominal hysterectomy and bilateral salpingo-oophorectomy) Social History Social History Household Members: None Housing: Apartment Are you a primary patient care director to a significant other at home: No Do you presently have visiting nurse or other home services: No Alcohol intake: unknown Patient Tobacco Use Status: Never used Tobacco e-Cigarette/Vaping Use: Never Used Second Hand Smoke Exposure: No Advance Directives: Yes Advance Directives on File: Yes Advance Directives Date on File: 09/26/21 service: No Current occupational status: disabled 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) Hearing needs: No Vision needs: Yes Meds Allergies Allergy/AdvReac Type Severity Reaction Status Date / Time No Known Allergies Allergy Verified 03/30/22 11:54 [No Known Allergies*] Active Medications: Current Medications Acetaminophen (Acetaminophen 325 Mg Tablet) 650 mg PO Q6H PRN PRN Reason: Pain, Mild (Pain Scale 1-3) Enoxaparin Sodium (Enoxaparin Sodium 40 Mg/0.4 Ml Syringe) 40 mg SUBCUT Q24H [facility] Last Admin: 03/30/22 15:41 Dose: 40 mg Hydromorphone HCl (Hydromorphone Hcl 1 Mg/Ml Syringe) 0.5 mg IVPUSH Q4H PRN; Protocol PRN Reason: Pain, Severe (Pain Scale 7-10) Vancomycin HCl (Vancomycin/Ns) 2,000 mg in 520 mls @ 260 mls/hr IV ONCE ONE Stop: 03/30/22 16:09 Last Admin: 03/30/22 15:40 Dose: 260 mls/hr Piperacillin Sod/Tazobactam (Sod 3.375 gm/ Sodium Chloride) 100 mls @ 100 mls/hr IV Q6H [facility] Last Admin: 03/30/22 15:24 Dose: Not Given Ondansetron HCl (Ondansetron Hcl 4 Mg/2 Ml Vial) 4 mg IVPUSH QID PRN PRN Reason: Nausea Oxycodone HCl (Oxycodone Hcl Immed Release 5 Mg Tablet) 5 mg PO Q6H PRN PRN Reason: Pain, Moderate (Pain Scale 4-6 Pharmacy Consult (Consult Rx Perform Med Rec) 1 each MISCELLANE ONCE PRN PRN Reason: Consult order Pharmacy Consult (Consult Rx Vancomycin Dosing) 1 each MISCELLANE DAILY PRN PRN Reason: Consult order Sodium Chloride (0.9 % Sodium Chloride Flush 3 Ml Syringe) 3 ml IVFLUSH [facility] Last Admin: 03/30/22 15:41 Dose: 3 ml Zolpidem Tartrate (Zolpidem Tartrate 5 Mg Tablet) 5 mg PO BEDTIME PRN PRN Reason: Insomnia Home Medications Medication Instructions Recorded Confirmed Last Taken Type doxycycline monohydrate 100 mg 1 cap PO BID 03/30/22 03/30/22 Unknown History capsule tramadol 50 mg tablet 1 tab PO TID PRN Pain 03/30/22 03/30/22 Unknown History Physical Exam Vital Signs: Vital Signs: Last Vital Signs Temp 98.2 F 03/30/22 12:37 Pulse 75 03/30/22 15:38 Resp 18 03/30/22 15:38 BP 157/59 H 03/30/22 15:38 Pulse Ox 94 03/30/22 15:38 O2 Del Method 03/30/22 15:38 BMI result Body Mass Index 38.0 Const: General: confusion Nutritional Appearance: well nourished Orientation/consciousness: confusion Chest: Other: Area of tenderness and redness noted in the left chest. Needle aspiration produced approximately 35 mL of clear fluid. No other collections identified. The skin appears edematous bilaterally in the chest. She also has some lymphedema developing in the right arm. Resp: Effort & Inspection: normal respiratory effort, no audible wheezes, no cough and no respiratory distress GI: Inspection: Yes normal to inspection Skin: Other: Warm, dry, no rash General skin exam: no rashes or lesions noted Neuro: General: confusion Extrem: Other: No edema General: Yes no clubbing, cyanosis or edema Results Results Labs: Short CBC 03/30/22 Range/Units 12:45 WBC 9.2 (4.8-10.8) X10*3/uL Hgb 11.8 L (12.0-16.0) g/dl Hct 36.5 L (37.0-47.0) % Plt Count 443 H (160-400) X10*3/uL BMP 03/30/22 12:45 Sodium 138 Potassium 4.7 Chloride 103 Carbon Dioxide 19 L BUN 19 H Creatinine 0.85 Calcium 9.2 Liver Function 03/30/22 Range/Units 12:45 Total Bilirubin 0.4 (0.0-1.0) mg/dL Direct Bilirubin < 0.2 (0.0-0.5) mg/dL AST 16 (5-31) U/L ALT 10 (0-31) U/L Alkaline Phosphatase 105 (39-117) U/L Albumin 3.8 (3.5-5.0) g/dL Assessment and Plan (1) Cellulitis of chest wall: Status: Acute Plan 71-year-old female patient admitted with complaints of increased left chest discomfort and redness following bilateral mastectomy. Patient had a seroma drain today with clear fluid. The specimen was sent for culture. I recommended patient be admitted for IV antibiotics. I will consult Infectious Disease for further assistance with antibiotic management. Patient expressed understanding and agrees with the plan. Quality Stroke Does the patient have a stroke diagnosis?: No VTE Prior VTE?: No VTE Risk Level:: Surgical - moderate VTE Device Contraindication: N/A - Device Ordered VTE Drug Contraindication: N/A - Med Ordered Procedures Date of Service Date of Service: 03/30/22
[2022-03-30] MEDS: HYDROmorphone HCl 1 MG/ML SYRINGE 0.5 MG IVPUSH (18:00)
[2022-03-30 19:19] VITALS: BP 151/69; PULSE 74; RESP 18; TEMP 36.8; O2SAT 98
[2022-03-30 22:05] LABS: Glucose, Whole Blood 112 mg/dL (60-115)
--- NOTE | 2022-03-30 22:46 | MHC.CM.PN ---
IMM 03/30. Met with admitted patient with bed assignment pending. Lives alone. Daughter and granddaughter are her [employer]ARM LOAN INSPECTOR's for 30 hrs/week/[employer]. Pt has Rn services with [facility] and home PT with [facility]. HCP on file HCP#1/daughter Cornelia Reese ([phone]) and #2/granddaughter Yamila Crowder ([phone]). Pt had bilateral mastectomy on 02/19/22. D/C plan: home with existing services. Pt and daughter are not interested in any STR. Daughter will provide transport home.
[2022-03-30] MEDS: Amitriptyline HCl 10 MG TABLET PO (23:00)
[2022-03-30] MEDS: Ibuprofen 800 MG TABLET PO (23:00)
[2022-03-30] MEDS: traZODone HCL 100 MG TABLET 300 MG PO (23:00)
[2022-03-30] MEDS: Dicyclomine HCl 10 MG CAPSULE 20 MG PO (23:00)
[2022-03-30] MEDS: Gabapentin 400 MG CAPSULE 800 MG PO (23:00)
[2022-03-30] MEDS: Metoprolol Tartrate 50 MG TABLET PO (23:00)
[2022-03-30] MEDS: Cyclobenzaprine HCl 10 MG TABLET PO (23:01)
[2022-03-31] VITALS (7 sets, daily range): BP systolic 130–169; BP diastolic 60–83; PULSE 62–76; RESP 14–19; TEMP 36.1–36.7; O2SAT 95–97
[2022-03-31] MEDS: Dicyclomine HCl 10 MG CAPSULE 20 MG PO ×4 (03:53→20:56)
[2022-03-31 06:35] LABS: MANUAL DIFF FLAG NO
[2022-03-31 06:43] LABS: Basophils Percent Auto 0.5 % (0-2); Eosinophils Absolute Auto 0.4 X10*3/uL (0.0-0.4); Eosinophils Percent Auto 6.5 % (0-4); Hematocrit 33.4 % (37.0-47.0); Hemoglobin 10.8 g/dl (12.0-16.0); Imm Gran Abs Auto 0.02 X10*3/uL (0.00-0.03); Imm Gran Pct Auto 0.3 % (0.0-0.4); Lymphocytes Absolute Auto 1.3 X10*3/uL (1.2-4.9); Lymphocytes Percent Auto 18.9 % (20-40); Mean Corpuscular HGB Conc 32.3 g/dl (31.0-35.0); Mean Corpuscular Hemoglobin 29.6 pg (27.0-33.0); Mean Corpuscular Volume 91.5 fL (80.0-98.0); Mean Platelet Volume 9.4 fL (9.4-12.3); Monocytes Absolute Auto 0.6 X10*3/uL (0.1-1.2); Monocytes Percent Auto 9.5 % (2-11); Neutrophils Absolute Auto 4.2 x10*3/uL (2.0-8.3); Neutrophils Percent Auto 64.3 % (45-73); Platelet Count 434 X10*3/uL (160-400); Red Blood Count 3.65 X10*6/uL (4.20-5.50); Red Cell Distribution Width 13.2 % (11.0-16.0); White Blood Count 6.6 X10*3/uL (4.8-10.8)
[2022-03-31 06:58] LABS: Anion Gap 18 (12-20); Blood Urea Nitrogen 18 mg/dL (9-16); Calcium 9.1 mg/dL (8.4-10.2); Carbon Dioxide 25 mmol/L (22-29); Chloride 104 mmol/L (96-108); Creatinine Clr Calc Pharmacy 44.5; Estimated Glomerular Filt Rate 56; Glucose Random 104 mg/dL (60-115); Potassium 4.7 mmol/L (3.3-5.1); Sodium 142 mmol/L (135-145)
[2022-03-31] MEDS: Ibuprofen 800 MG TABLET PO ×3 (07:35→20:56)
[2022-03-31] MEDS: 0.9 % Sodium Chloride Flush 3 ML SYRINGE IVFLUSH ×3 (07:37→20:57)
[2022-03-31 08:01] LABS: Glucose, Whole Blood 101 mg/dL (60-115)
[2022-03-31] MEDS: Omeprazole 20 MG CAPSULE.DR PO (08:17)
[2022-03-31] MEDS: Atorvastatin Calcium 20 MG TABLET PO (08:17)
[2022-03-31] MEDS: Escitalopram Oxalate 10 MG TABLET PO (08:18)
[2022-03-31] MEDS: Metoprolol Tartrate 50 MG TABLET PO ×2 (08:19→20:56)
[2022-03-31] MEDS: Gabapentin 400 MG CAPSULE 800 MG PO ×2 (08:19→20:56)
[2022-03-31] MEDS: amLODIPine Besylate 10 MG TABLET PO (08:20)
--- NOTE | 2022-03-31 09:14 | HE.PHANOTE ---
VANCOMYCIN ADDENDUM: PATIENT HAS ONLY RECEIVED ONE DOSE, SLIGHT CHANGE IN SCR, WILL STICK WITH PLAN, AND SEE WHAT LEVEL IS JOSE
[2022-03-31] MEDS: oxyCODONE HCl Immed Release 5 MG TABLET PO (09:55)
[2022-03-31 11:35] LABS: Glucose, Whole Blood 104 mg/dL (60-115)
--- NOTE | 2022-03-31 14:00 | P.PNGS_ITS ---
Subjective Subjective Date of Service: 03/31/22 Interval history: complaining of pain but doing ok - no fevers Physical Exam Vital Signs: Vital Signs: Last Vital Signs Temp 98.1 F 03/31/22 11:59 Pulse 76 03/31/22 11:59 Resp 16 03/31/22 11:59 BP 132/71 03/31/22 11:59 Pulse Ox 97 03/31/22 11:59 O2 Del Method 03/31/22 11:59 BMI result Body Mass Index 38.0 Skin: Other: left chest area lateral with areas of thickened indurated tissue but no drainage no significant erythema the area is mildly tender to palpation Objective Data Active Medications Acetaminophen (Acetaminophen 325 Mg Tablet) 650 mg PO Q6H PRN PRN Reason: Pain, Mild (Pain Scale 1-3) Amitriptyline HCl (Amitriptyline Hcl 10 Mg Tablet) 10 mg PO BEDTIME [facility] Last Admin: 03/30/22 23:00 Dose: 10 mg Documented By: TUAN Amlodipine Besylate (Amlodipine Besylate 10 Mg Tablet) 10 mg PO DAILY [facility]; Protocol Last Admin: 03/31/22 08:20 Dose: 10 mg Documented By: DOUGLAS Atorvastatin Calcium (Atorvastatin Calcium 20 Mg Tablet) 20 mg PO DAILY [facility] Last Admin: 03/31/22 08:17 Dose: 20 mg Documented By: DOUGLAS Cyclobenzaprine HCl (Cyclobenzaprine Hcl 10 Mg Tablet) 10 mg PO TID PRN PRN Reason: muscle spasm Last Admin: 03/30/22 23:01 Dose: 10 mg Documented By: TUAN Dicyclomine HCl (Dicyclomine Hcl 10 Mg Capsule) 20 mg PO Q6H [facility] Last Admin: 03/31/22 08:17 Dose: 20 mg Documented By: DOUGLAS Enoxaparin Sodium (Enoxaparin Sodium 40 Mg/0.4 Ml Syringe) 40 mg SUBCUT Q24H [facility] Last Admin: 03/30/22 15:41 Dose: 40 mg Documented By: JOHN Escitalopram Oxalate (Escitalopram Oxalate 10 Mg Tablet) 10 mg PO DAILY [facility] Last Admin: 03/31/22 08:18 Dose: 10 mg Documented By: DOUGLAS Gabapentin (Gabapentin 400 Mg Capsule) 800 mg PO BID [facility] Last Admin: 03/31/22 08:19 Dose: 800 mg Documented By: DOUGLAS Hydromorphone HCl (Hydromorphone Hcl 1 Mg/Ml Syringe) 0.5 mg IVPUSH Q4H PRN; Protocol PRN Reason: Pain, Severe (Pain Scale 7-10) Last Admin: 03/30/22 18:00 Dose: 0.5 mg Documented By: JOHN Vancomycin HCl 1,000 mg/ (Sodium Chloride) 270 mls @ 270 mls/hr IV Q24H [facility] Piperacillin Sod/Tazobactam (Sod 3.375 gm/ Sodium Chloride) 50 mls @ 100 mls/hr IV Q6H [facility] Ibuprofen (Ibuprofen 800 Mg Tablet) 800 mg PO Q8H [facility] Last Admin: 03/31/22 07:35 Dose: 800 mg Documented By: DOUGLAS Loperamide HCl (Loperamide Hcl 2 Mg Capsule) 2 mg PO Q6H PRN PRN Reason: loose stool Metoprolol Tartrate (Metoprolol Tartrate 50 Mg Tablet) 50 mg PO BID [facility]; Protocol Last Admin: 03/31/22 08:19 Dose: 50 mg Documented By: DOUGLAS Omeprazole (Omeprazole 20 Mg Capsule.Dr) 20 mg PO DAILY [facility] Last Admin: 03/31/22 08:17 Dose: 20 mg Documented By: DOUGLAS Ondansetron HCl (Ondansetron Hcl 4 Mg/2 Ml Vial) 4 mg IVPUSH QID PRN PRN Reason: Nausea Oxycodone HCl (Oxycodone Hcl Immed Release 5 Mg Tablet) 5 mg PO Q6H PRN PRN Reason: Pain, Moderate (Pain Scale 4-6 Last Admin: 03/31/22 09:55 Dose: 5 mg Documented By: JANE Pharmacy Consult (Consult Rx Perform Med Rec) 1 each MISCELLANE ONCE PRN PRN Reason: Consult order Pharmacy Consult (Consult Rx Vancomycin Dosing) 1 each MISCELLANE DAILY PRN PRN Reason: Consult order Polyethylene Glycol (Polyethylene Glycol 3350 17 Gm Powd.Pack) 17 gm PO BID PRN PRN Reason: constipation Sodium Chloride (0.9 % Sodium Chloride Flush 3 Ml Syringe) [facility] Last Admin: 03/31/22 07:37 Dose: 3 ml Documented By: DOUGLAS Trazodone HCl (Trazodone Hcl 100 Mg Tablet) 300 mg PO BEDTIME [facility] Last Admin: 03/30/22 23:00 Dose: 300 mg Documented By: TUAN Zolpidem Tartrate (Zolpidem Tartrate 5 Mg Tablet) 5 mg PO BEDTIME PRN PRN Reason: Insomnia Labs CBC & Chem 7: 03/31/22 06:05 03/31/22 06:05 Labs: Laboratory Results - last 24 hr 03/30/22 03/30/22 03/30/22 12:45 14:31 14:31 MCV MCH MCHC RDW Plt Count MPV Immature Gran % (Auto) Neut % (Auto) Lymph % (Auto) Rock % (Auto) Eos % (Auto) Baso % (Auto) Lymph # (Auto) Rock # (Auto) Eos # (Auto) Baso # (Auto) Abs Immat Gran (auto) Absolute Neuts (auto) Absolute Nucleated RBC Nucleated RBC % (auto) Anion Gap Estim Creat Clear Calc Estimated GFR POC Glucose Random Glucose Lactic Acid 1.0 Calcium Magnesium 1.8 Total Bilirubin 0.4 Direct Bilirubin < 0.2 AST 16 ALT 10 Alkaline Phosphatase 105 Total Protein 7.5 Albumin 3.8 COVID-19 ([facility]) Negative COVID-19 Clin Com See Note 03/30/22 03/31/22 03/31/22 22:00 06:05 06:05 MCV 91.5 MCH 29.6 MCHC 32.3 RDW 13.2 Plt Count 434 H MPV 9.4 Immature Gran % (Auto) 0.3 Neut % (Auto) 64.3 Lymph % (Auto) 18.9 L Rock % (Auto) 9.5 Eos % (Auto) 6.5 H Baso % (Auto) 0.5 Lymph # (Auto) 1.3 Rock # (Auto) 0.6 Eos # (Auto) 0.4 Baso # (Auto) 0.0 Abs Immat Gran (auto) 0.02 Absolute Neuts (auto) 4.2 Absolute Nucleated RBC 0.000 Nucleated RBC % (auto) 0.0 Anion Gap 18 Estim Creat Clear Calc 44.5 Estimated GFR 56 POC Glucose 112 Random Glucose 104 Lactic Acid Calcium 9.1 Magnesium Total Bilirubin Direct Bilirubin AST ALT Alkaline Phosphatase Total Protein Albumin COVID-19 ([facility]) COVID-19 Clin Com 03/31/22 03/31/22 07:09 11:10 MCV MCH MCHC RDW Plt Count MPV Immature Gran % (Auto) Neut % (Auto) Lymph % (Auto) Rock % (Auto) Eos % (Auto) Baso % (Auto) Lymph # (Auto) Rock # (Auto) Eos # (Auto) Baso # (Auto) Abs Immat Gran (auto) Absolute Neuts (auto) Absolute Nucleated RBC Nucleated RBC % (auto) Anion Gap Estim Creat Clear Calc Estimated GFR POC Glucose 101 104 Random Glucose Lactic Acid Calcium Magnesium Total Bilirubin Direct Bilirubin AST ALT Alkaline Phosphatase Total Protein Albumin COVID-19 ([facility]) COVID-19 Clin Com Microbiology Microbiology Results: Microbiology 03/30/22 11:32 Gram Stain - Final Breast Routine Culture - Preliminary No growth to date. Procedures Date of Service Date of Service: 03/31/22 Progress Note: A&P Assessment and plan (1) Cellulitis of chest wall: Start date: 03/31/22 Status: Acute Assessment and Plan: pt with left chest area cellulitis status post bilateral mastectomies about a month and a half ago. Overall doing much better. No drainage. Plan to continue with the IV antibiotics infectious disease consult still pending. Time Spent With Patient Time: Total time spent is greater than 50% in coordination of care (as documented) at patient's floor/unit and/or counseling patient: Quality Stroke Does the patient have a stroke diagnosis?: No VTE Prior VTE?: No VTE Risk Level:: Surgical - moderate VTE Device Contraindication: N/A - Device Ordered VTE Drug Contraindication: N/A - Med Ordered
[2022-03-31] MEDS: Enoxaparin Sodium 40 MG/0.4 ML SYRINGE SUBCUT (14:25)
[2022-03-31] MEDS: Piperacillin Sodium/Tazobactam 3.375 GM in 0.9 % Sodium Chloride 50 ML IV ×2 (14:26→20:56)
[2022-03-31] MEDS: vancomycin HCL 1,000 MG in 0.9 % Sodium Chloride 250 ML 270 MG IV (15:41)
[2022-03-31] MEDS: traZODone HCL 100 MG TABLET 300 MG PO (20:56)
[2022-03-31] MEDS: Amitriptyline HCl 10 MG TABLET PO (20:56)
[2022-03-31] MEDS: Cyclobenzaprine HCl 10 MG TABLET PO (20:56)
[2022-04-01 04:00] VITALS: BP 121/57; PULSE 68; RESP 18; TEMP 36.2; O2SAT 97
[2022-04-01] MEDS: Dicyclomine HCl 10 MG CAPSULE 20 MG PO ×4 (04:11→21:24)
[2022-04-01] MEDS: Ibuprofen 800 MG TABLET PO ×3 (04:11→21:25)
[2022-04-01] MEDS: Piperacillin Sodium/Tazobactam 3.375 GM in 0.9 % Sodium Chloride 50 ML IV ×4 (04:11→21:26)
[2022-04-01 07:22] VITALS: BP 142/87; PULSE 66; RESP 16; TEMP 36.7; O2SAT 97
[2022-04-01 08:19] LABS: Glucose, Whole Blood 92 mg/dL (60-115)
[2022-04-01] MEDS: Gabapentin 400 MG CAPSULE 800 MG PO ×2 (08:52→21:24)
[2022-04-01] MEDS: oxyCODONE HCl Immed Release 5 MG TABLET PO ×3 (08:52→21:24)
[2022-04-01] MEDS: Omeprazole 20 MG CAPSULE.DR PO (08:54)
[2022-04-01] MEDS: Atorvastatin Calcium 20 MG TABLET PO (08:54)
[2022-04-01] MEDS: Metoprolol Tartrate 50 MG TABLET PO ×2 (08:54→21:25)
[2022-04-01] MEDS: 0.9 % Sodium Chloride Flush 3 ML SYRINGE IVFLUSH ×2 (08:54→15:59)
[2022-04-01] MEDS: Escitalopram Oxalate 10 MG TABLET PO (08:54)
[2022-04-01] MEDS: amLODIPine Besylate 10 MG TABLET PO (08:54)
[2022-04-01 12:00] VITALS: BP 140/70; PULSE 71; RESP 16; TEMP 36.2; O2SAT 96
--- NOTE | 2022-04-01 14:32 | PM.PNGS ---
Subjective Subjective Date of Service: 04/01/22 Interval history: patient is complaining that the area on her left breast is still sore but now the right side is as well. She says that the soreness and tenderness comes and goes in the past now he obvious problem is her left side the today the right-sided spa the in her as well. She denies any fevers or chills. Her white count has been normal. Physical Exam Vital Signs: Vital Signs: Last Vital Signs Temp 97.2 F 04/01/22 12:00 Pulse 71 04/01/22 12:00 Resp 16 04/01/22 12:00 BP 140/70 H 04/01/22 12:00 Pulse Ox 96 04/01/22 12:00 O2 Del Method 04/01/22 12:00 BMI result Body Mass Index 38.0 Skin: Other: The left breast area has a large area of injury did erythematous tissue which is tender to palpation. There is no drainage coming at this point in time. I do not see much improvement in the erythematous color and injury fowler. There is also tenderness on the right sinus maybe some mild diffuse erythema but no areas of significant induration as compared to the left side. No leakage bilaterally if any fluid. The rest of her chest areas within normal limits Psych: Appearance: grossly normal Mental Status: mental status grossly normal Affect: normal affect Objective Data Active Medications Acetaminophen (Acetaminophen 325 Mg Tablet) 650 mg PO Q6H PRN PRN Reason: Pain, Mild (Pain Scale 1-3) Amitriptyline HCl (Amitriptyline Hcl 10 Mg Tablet) 10 mg PO BEDTIME [facility] Last Admin: 03/31/22 20:56 Dose: 10 mg Documented By: TUAN Amlodipine Besylate (Amlodipine Besylate 10 Mg Tablet) 10 mg PO DAILY [facility]; Protocol Last Admin: 04/01/22 08:54 Dose: 10 mg Documented By: JANE Atorvastatin Calcium (Atorvastatin Calcium 20 Mg Tablet) 20 mg PO DAILY [facility] Last Admin: 04/01/22 08:54 Dose: 20 mg Documented By: JANE Cyclobenzaprine HCl (Cyclobenzaprine Hcl 10 Mg Tablet) 10 mg PO TID PRN PRN Reason: muscle spasm Last Admin: 03/31/22 20:56 Dose: 10 mg Documented By: TUAN Dicyclomine HCl (Dicyclomine Hcl 10 Mg Capsule) 20 mg PO Q6H [facility] Last Admin: 04/01/22 08:53 Dose: 20 mg Documented By: JANE Enoxaparin Sodium (Enoxaparin Sodium 40 Mg/0.4 Ml Syringe) 40 mg SUBCUT Q24H [facility] Last Admin: 03/31/22 14:25 Dose: 40 mg Documented By: JANE Escitalopram Oxalate (Escitalopram Oxalate 10 Mg Tablet) 10 mg PO DAILY [facility] Last Admin: 04/01/22 08:54 Dose: 10 mg Documented By: JANE Gabapentin (Gabapentin 400 Mg Capsule) 800 mg PO BID [facility] Last Admin: 04/01/22 08:52 Dose: 800 mg Documented By: JANE Hydromorphone HCl (Hydromorphone Hcl 1 Mg/Ml Syringe) 0.5 mg IVPUSH Q4H PRN; Protocol PRN Reason: Pain, Severe (Pain Scale 7-10) Last Admin: 03/30/22 18:00 Dose: 0.5 mg Documented By: JOHN Vancomycin HCl 1,000 mg/ (Sodium Chloride) 270 mls @ 270 mls/hr IV Q24H [facility] Last Infusion: 03/31/22 16:51 Dose: 0 mls/hr Documented By: HENRY Piperacillin Sod/Tazobactam (Sod 3.375 gm/ Sodium Chloride) 50 mls @ 100 mls/hr IV Q6H [facility] Last Infusion: 04/01/22 09:50 Dose: 100 mls/hr Documented By: JANE Ibuprofen (Ibuprofen 800 Mg Tablet) 800 mg PO Q8H [facility] Last Admin: 04/01/22 14:04 Dose: 800 mg Documented By: JANE Loperamide HCl (Loperamide Hcl 2 Mg Capsule) 2 mg PO Q6H PRN PRN Reason: loose stool Metoprolol Tartrate (Metoprolol Tartrate 50 Mg Tablet) 50 mg PO BID [facility]; Protocol Last Admin: 04/01/22 08:54 Dose: 50 mg Documented By: JANE Omeprazole (Omeprazole 20 Mg Capsule.) 20 mg PO DAILY [facility] Last Admin: 04/01/22 08:54 Dose: 20 mg Documented By: JANE Ondansetron HCl (Ondansetron Hcl 4 Mg/2 Ml Vial) 4 mg IVPUSH QID PRN PRN Reason: Nausea Oxycodone HCl (Oxycodone Hcl Immed Release 5 Mg Tablet) 5 mg PO Q6H PRN PRN Reason: Pain, Moderate (Pain Scale 4-6 Last Admin: 04/01/22 14:04 Dose: 5 mg Documented By: JANE Pharmacy Consult (Consult Rx Perform Med Rec) 1 each MISCELLANE ONCE PRN PRN Reason: Consult order Pharmacy Consult (Consult Rx Vancomycin Dosing) 1 each MISCELLANE DAILY PRN PRN Reason: Consult order Polyethylene Glycol (Polyethylene Glycol 3350 17 Gm Powd.Pack) 17 gm PO BID PRN PRN Reason: constipation Sodium Chloride (0.9 % Sodium Chloride Flush 3 Ml Syringe) 3 ml IVFLUSH QSHIFT [facility] Last Admin: 04/01/22 08:54 Dose: 3 ml Documented By: JANE Trazodone HCl (Trazodone Hcl 100 Mg Tablet) 300 mg PO BEDTIME [facility] Last Admin: 03/31/22 20:56 Dose: 300 mg Documented By: TUAN Zolpidem Tartrate (Zolpidem Tartrate 5 Mg Tablet) 5 mg PO BEDTIME PRN PRN Reason: Insomnia Labs CBC & Chem 7: 03/31/22 06:05 04/01/22 14:27 Labs: Laboratory Results - last 24 hr 04/01/22 07:27 POC Glucose 92 Microbiology Microbiology Results: Microbiology 03/30/22 11:32 Gram Stain - Final Breast Routine Culture - Preliminary No growth to date. 03/30/22 14:31 Blood Culture - Preliminary Blood - Venous No growth after 24 hours. 03/30/22 14:31 Blood Culture - Preliminary Blood - Venous No growth after 24 hours. Procedures Date of Service Date of Service: 04/01/22 Progress Note: A&P Assessment and plan (1) Cellulitis of chest wall: Status: Acute Assessment and Plan: the patient is a 71 of female who is several weeks status post bilateral mastectomies for breast cancer patella left side has some indurated tissue as well as cellulitis. Some fluid was drained last week implants a follow-up with the final pathology which is in a pack and yet. She is afebrile but air is still erythematous in in generated it does not appear to be abscess it needs to be drained at this point. The right side also little erythematous now on comparison despite her being on antibiotics. Her white count however is normal. Pannus repeat labs tomorrow continue with antibiotics as per infectious Diseases but may need to consider CT scan to evaluate the deeper aspects if the injury dated tissue especially on the left side. Time Spent With Patient Time: Total time spent is greater than 50% in coordination of care (as documented) at patient's floor/unit and/or counseling patient: Quality Stroke Does the patient have a stroke diagnosis?: No VTE Prior VTE?: No VTE Risk Level:: Surgical - moderate VTE Device Contraindication: N/A - Device Ordered VTE Drug Contraindication: N/A - Med Ordered
[2022-04-01 15:05] LABS: Creatinine Clr Calc Pharmacy 36.3; Estimated Glomerular Filt Rate 44
[2022-04-01 15:12] LABS: Vancomycin Random 11.9 mcg/mL (15-20)
[2022-04-01] MEDS: Enoxaparin Sodium 40 MG/0.4 ML SYRINGE SUBCUT (15:17)
[2022-04-01 15:30] VITALS: BP 136/72; PULSE 67; RESP 17; TEMP 36.7; O2SAT 98
[2022-04-01] MEDS: Acetaminophen 325 MG TABLET 650 MG PO (15:58)
[2022-04-01] MEDS: vancomycin HCL 1,000 MG in 0.9 % Sodium Chloride 250 ML 270 MG IV (16:04)
[2022-04-01 19:03] VITALS: BP 123/68; PULSE 65; RESP 18; TEMP 36.4; O2SAT 96
[2022-04-01] MEDS: traZODone HCL 100 MG TABLET 300 MG PO (21:25)
[2022-04-01] MEDS: Amitriptyline HCl 10 MG TABLET PO (21:25)
--- NOTE | 2022-04-01 22:38 | P.CNID_ITS ---
History of Present Illness Data of Consult Service Date: 03/31/22 Requesting physician: Renard Malik Primary Care Provider: ARON Olivia Reason for consult: chest wall cellulitis She presents with chest wall cellulitis at site of mastectomy. She was started on 03/23 with high fever and Doxycycline. She has had left area fluid taken she says. 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 Mother Heart disease Hypertension Colon cancer Maternal Grandmother Esophageal cancer Daughter Breast cancer Brother Colon cancer Sister Breast cancer Sister Breast cancer, Onset Age: 60 Family history: reviewed and not pertinent Surgical History Surgical History History of bilateral mastectomy (02/19/22) History of colonoscopy History of esophagogastroduodenoscopy (EGD) History of lumbar fusion History of lumpectomy of both breasts History of surgery Hx of appendectomy Hx of blepharoplasty Hx of cholecystectomy S/P [id number] (total abdominal hysterectomy and bilateral salpingo-oophorectomy) Social History Social History Household Members: None Housing: Apartment Are you a primary healthcare science specialist to a significant other at home: No Do you presently have visiting nurse or other home services: Yes Alcohol intake: unknown Patient Tobacco Use Status: Never used Tobacco e-Cigarette/Vaping Use: Never Used Second Hand Smoke Exposure: No Advance Directives Date on File: 09/26/21 service: No Current occupational status: disabled 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) Hearing needs: No Vision needs: Yes Meds Allergies Allergy/AdvReac Type Severity Reaction Status Date / Time No Known Allergies Allergy Verified 03/30/22 11:54 [No Known Allergies*] Active Medications: Current Medications Acetaminophen (Acetaminophen 325 Mg Tablet) 650 mg PO Q6H PRN PRN Reason: Pain, Mild (Pain Scale 1-3) Last Admin: 04/01/22 15:58 Dose: 650 mg Amitriptyline HCl (Amitriptyline Hcl 10 Mg Tablet) 10 mg PO BEDTIME [facility] Last Admin: 04/01/22 21:25 Dose: 10 mg Amlodipine Besylate (Amlodipine Besylate 10 Mg Tablet) 10 mg PO DAILY [facility]; Protocol Last Admin: 04/01/22 08:54 Dose: 10 mg Atorvastatin Calcium (Atorvastatin Calcium 20 Mg Tablet) 20 mg PO DAILY [facility] Last Admin: 04/01/22 08:54 Dose: 20 mg Cyclobenzaprine HCl (Cyclobenzaprine Hcl 10 Mg Tablet) 10 mg PO TID PRN PRN Reason: muscle spasm Last Admin: 03/31/22 20:56 Dose: 10 mg Dicyclomine HCl (Dicyclomine Hcl 10 Mg Capsule) 20 mg PO Q6H [facility] Last Admin: 04/01/22 21:24 Dose: 20 mg Enoxaparin Sodium (Enoxaparin Sodium 40 Mg/0.4 Ml Syringe) 40 mg SUBCUT Q24H [facility] Last Admin: 04/01/22 15:17 Dose: 40 mg Escitalopram Oxalate (Escitalopram Oxalate 10 Mg Tablet) 10 mg PO DAILY [facility] Last Admin: 04/01/22 08:54 Dose: 10 mg Gabapentin (Gabapentin 400 Mg Capsule) 800 mg PO BID [facility] Last Admin: 04/01/22 21:24 Dose: 800 mg Hydromorphone HCl (Hydromorphone Hcl 1 Mg/Ml Syringe) 0.5 mg IVPUSH Q4H PRN; Protocol PRN Reason: Pain, Severe (Pain Scale 7-10) Last Admin: 03/30/22 18:00 Dose: 0.5 mg Vancomycin HCl 1,000 mg/ (Sodium Chloride) 270 mls @ 270 mls/hr IV Q24H [facility] Last Infusion: 04/01/22 17:49 Dose: Infused Piperacillin Sod/Tazobactam (Sod 3.375 gm/ Sodium Chloride) 50 mls @ 100 mls/hr IV Q6H [facility] Last Infusion: 04/01/22 22:35 Dose: Infused Ibuprofen (Ibuprofen 800 Mg Tablet) 800 mg PO Q8H [facility] Last Admin: 04/01/22 21:25 Dose: 800 mg Loperamide HCl (Loperamide Hcl 2 Mg Capsule) 2 mg PO Q6H PRN PRN Reason: loose stool Metoprolol Tartrate (Metoprolol Tartrate 50 Mg Tablet) 50 mg PO BID [facility]; Protocol Last Admin: 04/01/22 21:25 Dose: 50 mg Omeprazole (Omeprazole 20 Mg Capsule.Dr) 20 mg PO DAILY [facility] Last Admin: 04/01/22 08:54 Dose: 20 mg Ondansetron HCl (Ondansetron Hcl 4 Mg/2 Ml Vial) 4 mg IVPUSH QID PRN PRN Reason: Nausea Oxycodone HCl (Oxycodone Hcl Immed Release 5 Mg Tablet) 5 mg PO Q6H PRN PRN Reason: Pain, Moderate (Pain Scale 4-6 Last Admin: 04/01/22 21:24 Dose: 5 mg Pharmacy Consult (Consult Rx Perform Med Rec) 1 each MISCELLANE ONCE PRN PRN Reason: Consult order Pharmacy Consult (Consult Rx Vancomycin Dosing) 1 each MISCELLANE DAILY PRN PRN Reason: Consult order Polyethylene Glycol (Polyethylene Glycol 3350 17 Gm Powd.Pack) 17 gm PO BID PRN PRN Reason: constipation Sodium Chloride (0.9 % Sodium Chloride Flush 3 Ml Syringe) 3 ml IVFLUSH QSHIFT [facility] Last Admin: 04/01/22 15:59 Dose: 3 ml Trazodone HCl (Trazodone Hcl 100 Mg Tablet) 300 mg PO BEDTIME [facility] Last Admin: 04/01/22 21:25 Dose: 300 mg Zolpidem Tartrate (Zolpidem Tartrate 5 Mg Tablet) 5 mg PO BEDTIME PRN PRN Reason: Insomnia Home Medications Medication Instructions Recorded Confirmed Last Taken Type doxycycline monohydrate 100 mg 1 cap PO BID 03/30/22 03/30/22 Unknown History capsule tramadol 50 mg tablet 1 tab PO TID PRN Pain 03/30/22 03/30/22 Unknown History Physical Exam Vital Signs: Vital Signs: Last Vital Signs Temp 97.6 F 04/01/22 19:03 Pulse 65 04/01/22 19:03 Resp 18 04/01/22 19:03 BP 123/68 04/01/22 19:03 Pulse Ox 96 04/01/22 19:03 O2 Del Method 04/01/22 19:03 BMI result Body Mass Index 38.0 Const: General: cooperative HEENT: Head: Yes normal to inspection Face and sinus: Yes normal facial exam Mouth: Normal oral and palatal mucosa present Teeth and gingiva: dentition normal Eyes: General: appearance normal, both eyes and all related structures Pupils: Equal, round and reactive pupils present Chest: Other: chest wall left swollen reddened right reddened as well Resp: Effort & Inspection: normal respiratory effort Cardio: Rate: regular rate Rhythm: regular rhythm GI: Palpation (GI): Soft to palpation and nontender : General: Yes no CVA tenderness Back/Spine/Pelvis: Back: no CVA tenderness Skin: General skin exam: no rashes or lesions noted Neuro: General: moves all extremities Cranial nerves: Yes Equal, round and reactive pupils present Extrem: General: Yes normal to inspection Psych: Appearance: grossly normal Results Labs CBC & Chem 7: 03/31/22 06:05 04/01/22 14:27 Labs: BMP 04/01/22 14:27 Creatinine 1.20 Microbiology Microbiology Results: Microbiology 03/30/22 14:31 Blood - Venous Blood Culture - Preliminary No growth after 48 hours. 03/30/22 14:31 Blood - Venous Blood Culture - Preliminary No growth after 48 hours. 03/30/22 11:32 Breast Gram Stain - Final 03/30/22 11:32 Breast Routine Culture - Preliminary No growth to date. Assessment and Plan (1) Cellulitis of chest wall: Status: Acute She has possible staph or strep She has failed po antibiotics (2) Recurrent malignant neoplasm of right breast: Status: Acute Plan Would agree Zosyn and Vancomycin for now,possible 3-5 days Await any cultures.
[2022-04-01 23:55] VITALS: BP 107/57; PULSE 63; RESP 18; TEMP 36.5; O2SAT 95
[2022-04-02] MEDS: 0.9 % Sodium Chloride Flush 3 ML SYRINGE IVFLUSH ×4 (01:10→20:52)
[2022-04-02] MEDS: HYDROmorphone HCl 1 MG/ML SYRINGE 0.5 MG IVPUSH (01:19)
[2022-04-02] MEDS: Dicyclomine HCl 10 MG CAPSULE 20 MG PO ×4 (02:58→21:57)
[2022-04-02] MEDS: Piperacillin Sodium/Tazobactam 3.375 GM in 0.9 % Sodium Chloride 50 ML IV ×4 (03:00→20:53)
[2022-04-02 04:00] VITALS: BP 117/59; PULSE 63; RESP 18; TEMP 36.6; O2SAT 95
[2022-04-02 05:45] LABS: Baso%MD 0.4 %; Eos%MD 6.5 %; Hematocrit 31.1 % (37.0-47.0); Hemoglobin 9.7 g/dl (12.0-16.0); IG%MD 0.4 %; Lymph%MD 27.3 %; Mean Corpuscular HGB Conc 31.2 g/dl (31.0-35.0); Mean Corpuscular Hemoglobin 29.2 pg (27.0-33.0); Mean Corpuscular Volume 93.7 fL (80.0-98.0); Mean Platelet Volume 9.3 fL (9.4-12.3); Mono%MD 8.7 %; Neut%MD 56.7 %; Platelet Count 414 X10*3/uL (160-400); Red Blood Count 3.32 X10*6/uL (4.20-5.50); Red Cell Distribution Width 13.5 % (11.0-16.0); White Blood Count 7.8 X10*3/uL (4.8-10.8)
[2022-04-02] MEDS: Ibuprofen 800 MG TABLET PO ×3 (05:55→21:56)
[2022-04-02 05:58] LABS: Creatinine Clr Calc Pharmacy 33.5; Estimated Glomerular Filt Rate 40
[2022-04-02 06:55] LABS: Band Neutrophils Percent 0 % (3-5); Basophils Abs Manual 0.1 X10*3/uL (0.0-0.2); Basophils Percent Manual 1 % (0-2); Eosinophils Absolute Manual 0.5 X10*3/uL (0.0-0.4); Eosinophils Percent Manual 7 % (0-4); Lymphocytes Absolute Manual 2.2 X10*3/uL (1.2-4.9); Lymphocytes Percent Manual 28 % (20-40); Monocytes Absolute Manual 0.3 X10*3/uL (0.1-1.2); Monocytes Percent Manual 4 % (2-11); Neutrophils Absolute Manual 4.7 X10*3/uL (2.0-8.3); Neutrophils Percent Manual 60 % (45-73)
[2022-04-02 06:56] LABS: Platelet Estimate SLIGHTLY INCREASED (NORMAL); Platelet Morphology Comment NORMAL; RBC Morphology NORMAL
[2022-04-02 08:00] VITALS: BP 115/72; PULSE 66; RESP 18; TEMP 36.6; O2SAT 96
[2022-04-02] MEDS: amLODIPine Besylate 10 MG TABLET PO (08:20)
[2022-04-02] MEDS: Atorvastatin Calcium 20 MG TABLET PO (08:20)
[2022-04-02] MEDS: Omeprazole 20 MG CAPSULE.DR PO (08:20)
[2022-04-02] MEDS: Gabapentin 400 MG CAPSULE 800 MG PO ×2 (08:20→20:49)
[2022-04-02] MEDS: Metoprolol Tartrate 50 MG TABLET PO ×2 (08:21→20:49)
[2022-04-02] MEDS: Escitalopram Oxalate 10 MG TABLET PO (08:21)
[2022-04-02] MEDS: oxyCODONE HCl Immed Release 5 MG TABLET PO (08:46)
--- NOTE | 2022-04-02 09:56 | P.PNGS_ITS ---
Subjective Subjective Date of Service: 04/04/22 Interval history: complains of pain left more than right No fever Physical Exam Vital Signs: Vital Signs: Last Vital Signs Temp 97.9 F 04/02/22 08:00 Pulse 66 04/02/22 08:00 Resp 18 04/02/22 08:00 BP 115/72 04/02/22 08:00 Pulse Ox 96 04/02/22 08:00 O2 Del Method 04/02/22 08:00 BMI result Body Mass Index 38.0 Const: General: comfortable and no acute distress Chest: Other: induration on mastectomy sites, left more than right, Cellulitis seems fading a little bit Continue antibiotics Warm compresses Family at bedside Objective Data Active Medications Acetaminophen (Acetaminophen 325 Mg Tablet) 650 mg PO Q6H PRN PRN Reason: Pain, Mild (Pain Scale 1-3) Last Admin: 04/01/22 15:58 Dose: 650 mg Documented By: HENRY Amitriptyline HCl (Amitriptyline Hcl 10 Mg Tablet) 10 mg PO BEDTIME [facility] Last Admin: 04/01/22 21:25 Dose: 10 mg Documented By: HENRY Amlodipine Besylate (Amlodipine Besylate 10 Mg Tablet) 10 mg PO DAILY [facility]; Protocol Last Admin: 04/02/22 08:20 Dose: 10 mg Documented By: ANNALISA Atorvastatin Calcium (Atorvastatin Calcium 20 Mg Tablet) 20 mg PO DAILY [facility] Last Admin: 04/02/22 08:20 Dose: 20 mg Documented By: ANNALISA Cyclobenzaprine HCl (Cyclobenzaprine Hcl 10 Mg Tablet) 10 mg PO TID PRN PRN Reason: muscle spasm Last Admin: 03/31/22 20:56 Dose: 10 mg Documented By: TUAN Dicyclomine HCl (Dicyclomine Hcl 10 Mg Capsule) 20 mg PO Q6H [facility] Last Admin: 04/02/22 08:21 Dose: 20 mg Documented By: ANNALISA Enoxaparin Sodium (Enoxaparin Sodium 40 Mg/0.4 Ml Syringe) 40 mg SUBCUT Q24H [facility] Last Admin: 04/01/22 15:17 Dose: 40 mg Documented By: JANE Escitalopram Oxalate (Escitalopram Oxalate 10 Mg Tablet) 10 mg PO DAILY [facility] Last Admin: 04/02/22 08:21 Dose: 10 mg Documented By: ANNALISA Gabapentin (Gabapentin 400 Mg Capsule) 800 mg PO BID [facility] Last Admin: 04/02/22 08:20 Dose: 800 mg Documented By: ANNALISA Hydromorphone HCl (Hydromorphone Hcl 1 Mg/Ml Syringe) 0.5 mg IVPUSH Q4H PRN; Protocol PRN Reason: Pain, Severe (Pain Scale 7-10) Last Admin: 04/02/22 01:19 Dose: 0.5 mg Documented By: TERESA Vancomycin HCl 1,000 mg/ (Sodium Chloride) 270 mls @ 270 mls/hr IV Q24H [facility] Last Infusion: 04/01/22 17:49 Dose: 0 mls/hr Documented By: HENRY Piperacillin Sod/Tazobactam (Sod 3.375 gm/ Sodium Chloride) 50 mls @ 100 mls/hr IV Q6H [facility] Last Admin: 04/02/22 08:21 Dose: 100 mls/hr Documented By: ANNALISA Ibuprofen (Ibuprofen 800 Mg Tablet) 800 mg PO Q8H [facility] Last Admin: 04/02/22 05:55 Dose: 800 mg Documented By: TERESA Loperamide HCl (Loperamide Hcl 2 Mg Capsule) 2 mg PO Q6H PRN PRN Reason: loose stool Metoprolol Tartrate (Metoprolol Tartrate 50 Mg Tablet) 50 mg PO BID [facility]; Protocol Last Admin: 04/02/22 08:21 Dose: 50 mg Documented By: ANNALISA Omeprazole (Omeprazole 20 Mg Capsule.) 20 mg PO DAILY [facility] Last Admin: 04/02/22 08:20 Dose: 20 mg Documented By: ANNALISA Ondansetron HCl (Ondansetron Hcl 4 Mg/2 Ml Vial) 4 mg IVPUSH QID PRN PRN Reason: Nausea Oxycodone HCl (Oxycodone Hcl Immed Release 5 Mg Tablet) 5 mg PO Q6H PRN PRN Reason: Pain, Moderate (Pain Scale 4-6 Last Admin: 04/02/22 08:46 Dose: 5 mg Documented By: ANNALISA Pharmacy Consult (Consult Rx Perform Med Rec) 1 each MISCELLANE ONCE PRN PRN Reason: Consult order Pharmacy Consult (Consult Rx Vancomycin Dosing) 1 each MISCELLANE DAILY PRN PRN Reason: Consult order Polyethylene Glycol (Polyethylene Glycol 3350 17 Gm Powd.Pack) 17 gm PO BID PRN PRN Reason: constipation Sodium Chloride (0.9 % Sodium Chloride Flush 3 Ml Syringe) 3 ml IVFLUSH QSHIFT [facility] Last Admin: 04/02/22 08:21 Dose: 3 ml Documented By: ANNALISA Trazodone HCl (Trazodone Hcl 100 Mg Tablet) 300 mg PO BEDTIME [facility] Last Admin: 04/01/22 21:25 Dose: 300 mg Documented By: HENRY Zolpidem Tartrate (Zolpidem Tartrate 5 Mg Tablet) 5 mg PO BEDTIME PRN PRN Reason: Insomnia Labs CBC & Chem 7: 04/02/22 05:35 04/04/22 05:52 Labs: Laboratory Results - last 24 hr 04/01/22 04/01/22 04/02/22 14:27 14:27 05:35 MCV MCH MCHC RDW Plt Count MPV Absolute Nucleated RBC Nucleated RBC % (auto) Neutrophils % (Manual) Band Neutrophils % Lymphocytes % (Manual) Monocytes % (Manual) Eosinophils % (Manual) Basophils % (Manual) Abs Neuts (Manual) Lymphocytes # (Manual) Monocytes # (Manual) Eosinophils # (Manual) Basophils # (Manual) Platelet Estimate Plt Morphology Comment RBC Morphology Estim Creat Clear Calc 36.3 33.5 Estimated GFR 44 40 Random Vancomycin 11.9 L 04/02/22 05:35 MCV 93.7 MCH 29.2 MCHC 31.2 RDW 13.5 Plt Count 414 H MPV 9.3 L Absolute Nucleated RBC 0.000 Nucleated RBC % (auto) 0.0 Neutrophils % (Manual) 60 Band Neutrophils % 0 L Lymphocytes % (Manual) 28 Monocytes % (Manual) 4 Eosinophils % (Manual) 7 H Basophils % (Manual) 1 Abs Neuts (Manual) 4.7 Lymphocytes # (Manual) 2.2 Monocytes # (Manual) 0.3 Eosinophils # (Manual) 0.5 H Basophils # (Manual) 0.1 Platelet Estimate SLIGHTLY INCREASED Plt Morphology Comment NORMAL RBC Morphology NORMAL Estim Creat Clear Calc Estimated GFR Random Vancomycin Microbiology Microbiology Results: Microbiology 03/30/22 11:32 Gram Stain - Final Breast Routine Culture - Final No growth after 2 days 03/30/22 14:31 Blood Culture - Preliminary Blood - Venous No growth after 48 hours. 03/30/22 14:31 Blood Culture - Preliminary Blood - Venous No growth after 48 hours. Procedures Date of Service Date of Service: 04/02/22 Progress Note: A&P Time Spent With Patient Time: Total time spent is greater than 50% in coordination of care (as documented) at patient's floor/unit and/or counseling patient: Quality Stroke Does the patient have a stroke diagnosis?: No VTE Prior VTE?: No VTE Risk Level:: Surgical - moderate VTE Device Contraindication: N/A - Device Ordered VTE Drug Contraindication: N/A - Med Ordered
[2022-04-02 11:58] VITALS: BP 120/69; PULSE 61; RESP 18; TEMP 36.7; O2SAT 96
[2022-04-02] MEDS: Enoxaparin Sodium 40 MG/0.4 ML SYRINGE SUBCUT (15:07)
[2022-04-02 15:27] VITALS: BP 127/66; RESP 17; TEMP 36.2; O2SAT 97
[2022-04-02] MEDS: vancomycin HCL 1,000 MG in 0.9 % Sodium Chloride 250 ML 270 MG IV (16:04)
[2022-04-02 19:14] VITALS: BP 129/63; PULSE 59; RESP 18; TEMP 36.2; O2SAT 95
[2022-04-02] MEDS: Amitriptyline HCl 10 MG TABLET PO (20:49)
[2022-04-02] MEDS: traZODone HCL 100 MG TABLET 300 MG PO (20:49)
[2022-04-03] VITALS (7 sets, daily range): BP systolic 123–164; BP diastolic 60–77; PULSE 57–66; RESP 16–18; TEMP 36–36.8; O2SAT 95–98
[2022-04-03] MEDS: Piperacillin Sodium/Tazobactam 3.375 GM in 0.9 % Sodium Chloride 50 ML IV ×4 (02:39→20:26)
[2022-04-03] MEDS: HYDROmorphone HCl 1 MG/ML SYRINGE 0.5 MG IVPUSH ×4 (02:48→23:13)
[2022-04-03] MEDS: Dicyclomine HCl 10 MG CAPSULE 20 MG PO ×4 (03:18→23:18)
[2022-04-03] MEDS: Ibuprofen 800 MG TABLET PO ×3 (05:45→21:46)
[2022-04-03 06:32] LABS: Creatinine Clr Calc Pharmacy 44.9; Estimated Glomerular Filt Rate 56
[2022-04-03] MEDS: amLODIPine Besylate 10 MG TABLET PO (08:31)
[2022-04-03] MEDS: Omeprazole 20 MG CAPSULE.DR PO (08:31)
[2022-04-03] MEDS: Gabapentin 400 MG CAPSULE 800 MG PO ×2 (08:32→20:26)
[2022-04-03] MEDS: oxyCODONE HCl Immed Release 5 MG TABLET PO ×2 (08:32→14:00)
[2022-04-03] MEDS: Escitalopram Oxalate 10 MG TABLET PO (08:32)
[2022-04-03] MEDS: Metoprolol Tartrate 50 MG TABLET PO ×2 (08:32→20:26)
[2022-04-03] MEDS: Atorvastatin Calcium 20 MG TABLET PO (08:32)
[2022-04-03] MEDS: 0.9 % Sodium Chloride Flush 3 ML SYRINGE IVFLUSH ×3 (08:34→20:26)
--- NOTE | 2022-04-03 09:24 | PM.PNGS ---
Subjective Subjective Date of Service: 04/03/22 Interval history: Still having a fair amount of pain at left breast. Physical Exam Vital Signs: Vital Signs: Last Vital Signs Temp 97.2 F 04/03/22 07:42 Pulse 65 04/03/22 07:42 Resp 17 04/03/22 07:42 BP 144/77 H 04/03/22 07:42 Pulse Ox 98 04/03/22 07:42 O2 Del Method 04/03/22 07:42 BMI result Body Mass Index 38.0 Const: General: comfortable, no acute distress and alert Orientation/consciousness: patient oriented x3 Chest: Other: left breast mastectomy site with decreasing erythema, induration persists at lateral aspect, no palpable fluctuance appreciated Resp: Effort & Inspection: normal respiratory effort Neuro: General: patient oriented x3 Extrem: General: Yes no clubbing, cyanosis or edema Objective Data Active Medications Acetaminophen (Acetaminophen 325 Mg Tablet) 650 mg PO Q6H PRN PRN Reason: Pain, Mild (Pain Scale 1-3) Last Admin: 04/01/22 15:58 Dose: 650 mg Documented By: HENRY Amitriptyline HCl (Amitriptyline Hcl 10 Mg Tablet) 10 mg PO BEDTIME [facility] Last Admin: 04/02/22 20:49 Dose: 10 mg Documented By: TERESA Amlodipine Besylate (Amlodipine Besylate 10 Mg Tablet) 10 mg PO DAILY [facility]; Protocol Last Admin: 04/03/22 08:31 Dose: 10 mg Documented By: NEL Atorvastatin Calcium (Atorvastatin Calcium 20 Mg Tablet) 20 mg PO DAILY [facility] Last Admin: 04/03/22 08:32 Dose: 20 mg Documented By: NEL Cyclobenzaprine HCl (Cyclobenzaprine Hcl 10 Mg Tablet) 10 mg PO TID PRN PRN Reason: muscle spasm Last Admin: 03/31/22 20:56 Dose: 10 mg Documented By: TUAN Dicyclomine HCl (Dicyclomine Hcl 10 Mg Capsule) 20 mg PO Q6H [facility] Last Admin: 04/03/22 08:33 Dose: 20 mg Documented By: NEL Enoxaparin Sodium (Enoxaparin Sodium 40 Mg/0.4 Ml Syringe) 40 mg SUBCUT Q24H [facility] Last Admin: 04/02/22 15:07 Dose: 40 mg Documented By: ANNALISA Escitalopram Oxalate (Escitalopram Oxalate 10 Mg Tablet) 10 mg PO DAILY [facility] Last Admin: 04/03/22 08:32 Dose: 10 mg Documented By: NEL Gabapentin (Gabapentin 400 Mg Capsule) 800 mg PO BID [facility] Last Admin: 04/03/22 08:32 Dose: 800 mg Documented By: NEL Hydromorphone HCl (Hydromorphone Hcl 1 Mg/Ml Syringe) 0.5 mg IVPUSH Q4H PRN; Protocol PRN Reason: Pain, Severe (Pain Scale 7-10) Last Admin: 04/03/22 02:48 Dose: 0.5 mg Documented By: TERESA Vancomycin HCl 1,000 mg/ (Sodium Chloride) 270 mls @ 270 mls/hr IV Q24H [facility] Last Infusion: 04/02/22 17:42 Dose: 0 mls/hr Documented By: ANNALISA Piperacillin Sod/Tazobactam (Sod 3.375 gm/ Sodium Chloride) 50 mls @ 100 mls/hr IV Q6H [facility] Last Infusion: 04/03/22 09:10 Dose: 0 mls/hr Documented By: NEL Ibuprofen (Ibuprofen 800 Mg Tablet) 800 mg PO Q8H [facility] Last Admin: 04/03/22 05:45 Dose: 800 mg Documented By: TERESA Loperamide HCl (Loperamide Hcl 2 Mg Capsule) 2 mg PO Q6H PRN PRN Reason: loose stool Metoprolol Tartrate (Metoprolol Tartrate 50 Mg Tablet) 50 mg PO BID [facility]; Protocol Last Admin: 04/03/22 08:32 Dose: 50 mg Documented By: NEL Omeprazole (Omeprazole 20 Mg Capsule.) 20 mg PO DAILY [facility] Last Admin: 04/03/22 08:31 Dose: 20 mg Documented By: NEL Ondansetron HCl (Ondansetron Hcl 4 Mg/2 Ml Vial) 4 mg IVPUSH QID PRN PRN Reason: Nausea Oxycodone HCl (Oxycodone Hcl Immed Release 5 Mg Tablet) 5 mg PO Q6H PRN PRN Reason: Pain, Moderate (Pain Scale 4-6 Last Admin: 04/03/22 08:32 Dose: 5 mg Documented By: NEL Pharmacy Consult (Consult Rx Perform Med Rec) 1 each MISCELLANE ONCE PRN PRN Reason: Consult order Pharmacy Consult (Consult Rx Vancomycin Dosing) 1 each MISCELLANE DAILY PRN PRN Reason: Consult order Polyethylene Glycol (Polyethylene Glycol 3350 17 Gm Powd.Pack) 17 gm PO BID PRN PRN Reason: constipation Sodium Chloride (0.9 % Sodium Chloride Flush 3 Ml Syringe) 3 ml IVFLUSH QSHIFT [facility] Last Admin: 04/03/22 08:34 Dose: 3 ml Documented By: NEL Trazodone HCl (Trazodone Hcl 100 Mg Tablet) 300 mg PO BEDTIME [facility] Last Admin: 04/02/22 20:49 Dose: 300 mg Documented By: TERESA Zolpidem Tartrate (Zolpidem Tartrate 5 Mg Tablet) 5 mg PO BEDTIME PRN PRN Reason: Insomnia Labs CBC & Chem 7: 04/02/22 05:35 04/03/22 05:32 Labs: Laboratory Results - last 24 hr 04/03/22 05:32 Estim Creat Clear Calc 44.9 Estimated GFR 56 Microbiology Microbiology Results: Microbiology 03/30/22 11:32 Gram Stain - Final Breast Routine Culture - Final No growth after 2 days Procedures Date of Service Date of Service: 04/03/22 Progress Note: A&P Assessment and plan (1) Cellulitis of chest wall: Status: Acute Plan 71-year-old with right modified radical mastectomy and left simple mastectomy on 02/19/2022 for right breast CA admitted for cellulitis of the left chest wall at mastectomy site. She is on IV vanco/zosyn, day 3. The erythema is lightening and beginning to recede from line of demarcation but she still has a fair amount of tenderness and induration that persists. Will obtain US of left breast to assess for any fluid collection that may need to be aspiration. Patient comfortable with plan. Time Spent With Patient Time: Total time spent is greater than 50% in coordination of care (as documented) at patient's floor/unit and/or counseling patient: Quality Stroke Does the patient have a stroke diagnosis?: No VTE Prior VTE?: No VTE Risk Level:: Surgical - moderate VTE Device Contraindication: N/A - Device Ordered VTE Drug Contraindication: N/A - Med Ordered
[2022-04-03] MEDS: Lidocaine HCl 1 % 20 ML VIAL 5 ML INFILTRATI (13:40)
[2022-04-03] MEDS: Enoxaparin Sodium 40 MG/0.4 ML SYRINGE SUBCUT (14:01)
[2022-04-03 14:29] LABS: Vancomycin Random 11.2 mcg/mL (15-20)
--- NOTE | 2022-04-03 14:35 | PM.EVENT ---
Event Note Date of Service: 04/03/22 Event Note: US shows fluid collection, seems septated I explained to pt that we will do aspiration again under local anesthesia I explained technique of procedure as well as risks, benefits and alternatives - she says she was familiar with this as she had undergone aspiration of the seroma mulitple times I prepped an area of the mastectomy site, then used Lidocaine 1% for local anesthesia I used a gauge 18 needle and made several passes into the mastectomy site - 20 cc of clear serous fluid aspirated no pus noted dressings reaapplied continue mgt for cellulitis redness actually as been fading signfiicantly since yesterday
--- NOTE | 2022-04-03 14:43 | P.CDIC_ITS ---
CDI Concurrent Query Documentation Clarification: PHYSICIAN'S DOCUMENTATION REQUEST Date of Query: 04/03/22 1443 Patient Name: Beatriz Aguayo Admit Date: 03/30/22 Dear Doctor, A review of the medical record indicates additional documentation may be needed. Please review below and update the documentation accordingly. Clinical Indicators: The following diagnoses or signs and symptoms were noted in the patient record: Progress Notes: 04/03/22: Risk Factors/Clinical Indicators/Treatments I prepped an area of the mastectomy site, then used Lidocaine 1% for local anesthesia I used a gauge 18 needle and made several passes into the mastectomy site - 20 cc of clear serous fluid aspirated no pus noted Based on the above, could you clarify in the Progress Notes the appropriate diagnosis, if significant, that supports the above abnormalities and additional evaluation, monitoring, and/or treatment rendered: * Please specify laterality of procedure (Right mastectomy site or Left mastectomy site) * Other (please specify) * Unable to determine Use of terms such as suspected, likely, concern for, or probable (associated with a specific diagnosis that is being evaluated, monitored, or treated as if it exists) are acceptable and can be coded in the inpatient setting, when documented at the time of discharge. Thank you, Nicol Mon RN Extension: [phone] Please use your independent medical judgment in providing your response. THIS QUERY IS PART OF THE PERMANENT MEDICAL RECORD Provider Response: Other ( seroma) Other Diagnosis: seroma
--- NOTE | 2022-04-03 16:26 | PC.NURSE ---
Alert and oriented. C/O left sided chest pain (Mastectomy site), medicated per MAR with effect. Ultrasound completed (showed pockets of fluids), Dr. Carvalho aspirated site at the bedside, 20ml of fluids removed. . VSS, afebrile, no acute resp. distress noted. OOB to bathroom with assist x1. Daughter at bedside and aware of plan of care. Will continue to monitor and treat per plan of care.
[2022-04-03] MEDS: vancomycin HCL 1,000 MG in 0.9 % Sodium Chloride 250 ML 270 MG IV (17:13)
[2022-04-03] MEDS: traZODone HCL 100 MG TABLET 300 MG PO (20:26)
[2022-04-03] MEDS: Amitriptyline HCl 10 MG TABLET PO (20:26)
[2022-04-04] MEDS: oxyCODONE HCl Immed Release 5 MG TABLET PO ×2 (03:00→14:11)
[2022-04-04] MEDS: Piperacillin Sodium/Tazobactam 3.375 GM in 0.9 % Sodium Chloride 50 ML IV ×4 (03:01→21:57)
[2022-04-04] MEDS: Dicyclomine HCl 10 MG CAPSULE 20 MG PO ×4 (03:33→21:58)
[2022-04-04 03:36] VITALS: BP 126/61; PULSE 53; RESP 18; TEMP 36.1; O2SAT 96
[2022-04-04] MEDS: Ibuprofen 800 MG TABLET PO ×3 (05:52→21:58)
[2022-04-04 06:51] LABS: Creatinine Clr Calc Pharmacy 37.2; Estimated Glomerular Filt Rate 45
[2022-04-04 07:44] VITALS: BP 145/69; PULSE 65; RESP 17; TEMP 36.6; O2SAT 98
[2022-04-04] MEDS: amLODIPine Besylate 10 MG TABLET PO (08:46)
[2022-04-04] MEDS: Escitalopram Oxalate 10 MG TABLET PO (08:47)
[2022-04-04] MEDS: Metoprolol Tartrate 50 MG TABLET PO ×2 (08:47→21:58)
[2022-04-04] MEDS: Gabapentin 400 MG CAPSULE 800 MG PO ×2 (08:47→21:58)
[2022-04-04] MEDS: HYDROmorphone HCl 1 MG/ML SYRINGE 0.5 MG IVPUSH ×2 (08:47→17:54)
[2022-04-04] MEDS: Atorvastatin Calcium 20 MG TABLET PO (08:47)
[2022-04-04] MEDS: Omeprazole 20 MG CAPSULE.DR PO (08:47)
--- NOTE | 2022-04-04 08:55 | P.PNGS_ITS ---
Subjective Subjective Date of Service: 04/04/22 <Halley Haque PA-C - Last Filed: 04/04/22 10:46> 04/05/22 <Deven Thomas MD - Last Filed: 04/05/22 08:56> Interval history: Interval history: US showed large, multiseptated fluid collection. Underwent aspiration at bedside, 20cc serous fluid drained. Feels better this morning. Pain improving. No new complaints. <Halley Haque PA-C - Last Filed: 04/04/22 10:46> Physical Exam Vital Signs: Vital Signs: Last Vital Signs Temp 97.8 F 04/04/22 07:44 Pulse 65 04/04/22 07:44 Resp 17 04/04/22 07:44 BP 145/69 H 04/04/22 07:44 Pulse Ox 98 04/04/22 07:44 O2 Del Method 04/04/22 07:44 BMI result Body Mass Index 38.0 <Halley Haque PA-C - Last Filed: 04/04/22 10:46> Const: General: comfortable, no acute distress and alert <Halley Haque PA-C - Last Filed: 04/04/22 10:46> Orientation/consciousness: patient oriented x3 <Halley Haque PA-C - Last Filed: 04/04/22 10:46> Chest: Other: left mastectomy site- erythema continues to decrease and lighten <Halley Haque PA-C - Last Filed: 04/04/22 10:46> Resp: Effort & Inspection: normal respiratory effort <Halley Haque PA-C - Last Filed: 04/04/22 10:46> Skin: General skin exam: no rashes or lesions noted <Halley Haque PA-C - Last Filed: 04/04/22 10:46> Neuro: General: patient oriented x3 <ARON Benítez Last Filed: 04/04/22 10:46> Objective Data Active Medications Acetaminophen (Acetaminophen 325 Mg Tablet) 650 mg PO Q6H PRN PRN Reason: Pain, Mild (Pain Scale 1-3) Last Admin: 04/01/22 15:58 Dose: 650 mg Documented By: HO.BEIT Amitriptyline HCl (Amitriptyline Hcl 10 Mg Tablet) 10 mg PO BEDTIME [facility] Last Admin: 04/03/22 20:26 Dose: 10 mg Documented By: DUSTY Amlodipine Besylate (Amlodipine Besylate 10 Mg Tablet) 10 mg PO DAILY [facility]; Protocol Last Admin: 04/03/22 08:31 Dose: 10 mg Documented By: NEL Atorvastatin Calcium (Atorvastatin Calcium 20 Mg Tablet) 20 mg PO DAILY [facility] Last Admin: 04/03/22 08:32 Dose: 20 mg Documented By: NEL Cyclobenzaprine HCl (Cyclobenzaprine Hcl 10 Mg Tablet) 10 mg PO TID PRN PRN Reason: muscle spasm Last Admin: 03/31/22 20:56 Dose: 10 mg Documented By: TUAN Dicyclomine HCl (Dicyclomine Hcl 10 Mg Capsule) 20 mg PO Q6H [facility] Last Admin: 04/04/22 03:33 Dose: 20 mg Documented By: DUSTY Enoxaparin Sodium (Enoxaparin Sodium 40 Mg/0.4 Ml Syringe) 40 mg SUBCUT Q24H [facility] Last Admin: 04/03/22 14:01 Dose: 40 mg Documented By: NEL Escitalopram Oxalate (Escitalopram Oxalate 10 Mg Tablet) 10 mg PO DAILY [facility] Last Admin: 04/03/22 08:32 Dose: 10 mg Documented By: NEL Gabapentin (Gabapentin 400 Mg Capsule) 800 mg PO BID [facility] Last Admin: 04/03/22 20:26 Dose: 800 mg Documented By: DUSTY Hydromorphone HCl (Hydromorphone Hcl 1 Mg/Ml Syringe) 0.5 mg IVPUSH Q4H PRN; Protocol PRN Reason: Pain, Severe (Pain Scale 7-10) Last Admin: 04/03/22 23:13 Dose: 0.5 mg Documented By: DUSTY Vancomycin HCl 1,000 mg/ (Sodium Chloride) 270 mls @ 270 mls/hr IV Q24H [facility] Last Infusion: 04/03/22 19:33 Dose: 0 mls/hr Documented By: DUSTY Piperacillin Sod/Tazobactam (Sod 3.375 gm/ Sodium Chloride) 50 mls @ 100 mls/hr IV Q6H [facility] Last Infusion: 04/04/22 03:35 Dose: 0 mls/hr Documented By: DUSTY Ibuprofen (Ibuprofen 800 Mg Tablet) 800 mg PO Q8H [facility] Last Admin: 04/04/22 05:52 Dose: 800 mg Documented By: DUSTY Loperamide HCl (Loperamide Hcl 2 Mg Capsule) 2 mg PO Q6H PRN PRN Reason: loose stool Metoprolol Tartrate (Metoprolol Tartrate 50 Mg Tablet) 50 mg PO BID [facility]; Protocol Last Admin: 04/03/22 20:26 Dose: 50 mg Documented By: DUSTY Omeprazole (Omeprazole 20 Mg Capsule.Dr) 20 mg PO DAILY [facility] Last Admin: 04/03/22 08:31 Dose: 20 mg Documented By: NEL Ondansetron HCl (Ondansetron Hcl 4 Mg/2 Ml Vial) 4 mg IVPUSH QID PRN PRN Reason: Nausea Oxycodone HCl (Oxycodone Hcl Immed Release 5 Mg Tablet) 5 mg PO Q6H PRN PRN Reason: Pain, Moderate (Pain Scale 4-6 Last Admin: 04/04/22 03:00 Dose: 5 mg Documented By: DUSTY Pharmacy Consult (Consult Rx Perform Med Rec) 1 each MISCELLANE ONCE PRN PRN Reason: Consult order Pharmacy Consult (Consult Rx Vancomycin Dosing) 1 each MISCELLANE DAILY PRN PRN Reason: Consult order Polyethylene Glycol (Polyethylene Glycol 3350 17 Gm Powd.Pack) 17 gm PO BID PRN PRN Reason: constipation Sodium Chloride (0.9 % Sodium Chloride Flush 3 Ml Syringe) 3 ml IVFLUSH QSHIFT [facility] Last Admin: 04/03/22 20:26 Dose: 3 ml Documented By: DUSTY Trazodone HCl (Trazodone Hcl 100 Mg Tablet) 300 mg PO BEDTIME [facility] Last Admin: 04/03/22 20:26 Dose: 300 mg Documented By: DUSTY Zolpidem Tartrate (Zolpidem Tartrate 5 Mg Tablet) 5 mg PO BEDTIME PRN PRN Reason: Insomnia <Halley Haque PA-C - Last Filed: 04/04/22 10:46> Labs CBC & Chem 7: : 04/02/22 05:35 04/05/22 06:08 <Halley Haque PA-C - Last Filed: 04/04/22 10:46> Labs: Laboratory Results - last 24 hr 04/03/22 04/04/22 14:01 05:52 Estim Creat Clear Calc 37.2 Estimated GFR 45 Random Vancomycin 11.2 L <Halley Haque PA-C - Last Filed: 04/04/22 10:46> Procedures Date of Service Date of Service: 04/04/22 <Halley Haque PA-C - Last Filed: 04/04/22 10:46> Progress Note: A&P Assessment and plan (1) Cellulitis of chest wall: Status: Acute <Halley Haque PA-C - Last Filed: 04/04/22 10:46> Assessment and Plan: seen and examined independently aspiration of seroma done yesterday cellulitis improved agree with MARTELL Haque <Deven Thomas MD - Last Filed: 04/05/22 08:56> Assessment and Plan: 71-year-old with right modified radical mastectomy and left simple mastectomy on 02/19/2022 for right breast CA admitted for cellulitis of the left chest wall at mastectomy site. Aspiration of seroma of left mastectomy site performed at bedside yesterday. Feels improved following. She is on IV vanco/zosyn, day 4. The cellulitic changes continue to improve. Will plan for discharge tomorrow and transition to PO abx. Patient comfortable with plan. <Halley Haque PA-C - Last Filed: 04/04/22 10:46> Time Spent With Patient Time: Total time spent is greater than 50% in coordination of care (as documented) at patient's floor/unit and/or counseling patient: <Halley Haque PA-C - Last Filed: 04/04/22 10:46> Quality Stroke Does the patient have a stroke diagnosis?: No <Halley Haque PA-C - Last Filed: 04/04/22 10:46> VTE Prior VTE?: No <Halley Haque PA-C - Last Filed: 04/04/22 10:46> VTE Risk Level:: Surgical - moderate <Halley Haque PA-C - Last Filed: 04/04/22 10:46> VTE Device Contraindication: N/A - Device Ordered <Halley Haque PA-C - Last Filed: 04/04/22 10:46> VTE Drug Contraindication: N/A - Med Ordered <Halley Haque PA-C - Last Filed: 04/04/22 10:46>
[2022-04-04] MEDS: 0.9 % Sodium Chloride Flush 3 ML SYRINGE IVFLUSH ×3 (08:56→21:59)
--- NOTE | 2022-04-04 09:20 | HE.PHANOTE ---
Re: Vanco dosing SCr stable and trough due on 04/05 at 1400. Projected AUC 506 with current dose of 1000 mg q24.
--- NOTE | 2022-04-04 10:18 | PM.PNGS ---
Subjective Subjective Date of Service: 04/05/22 Physical Exam Vital Signs: Vital Signs: Last Vital Signs Temp 97.8 F 04/04/22 07:44 Pulse 65 04/04/22 07:44 Resp 17 04/04/22 07:44 BP 145/69 H 04/04/22 07:44 Pulse Ox 98 04/04/22 07:44 O2 Del Method 04/04/22 07:44 BMI result Body Mass Index 38.0 Objective Data Active Medications Acetaminophen (Acetaminophen 325 Mg Tablet) 650 mg PO Q6H PRN PRN Reason: Pain, Mild (Pain Scale 1-3) Last Admin: 04/01/22 15:58 Dose: 650 mg Documented By: HENRY Amitriptyline HCl (Amitriptyline Hcl 10 Mg Tablet) 10 mg PO BEDTIME [facility] Last Admin: 04/03/22 20:26 Dose: 10 mg Documented By: DUSTY Amlodipine Besylate (Amlodipine Besylate 10 Mg Tablet) 10 mg PO DAILY [facility]; Protocol Last Admin: 04/04/22 08:46 Dose: 10 mg Documented By: VICENTA Atorvastatin Calcium (Atorvastatin Calcium 20 Mg Tablet) 20 mg PO DAILY [facility] Last Admin: 04/04/22 08:47 Dose: 20 mg Documented By: VICENTA Cyclobenzaprine HCl (Cyclobenzaprine Hcl 10 Mg Tablet) 10 mg PO TID PRN PRN Reason: muscle spasm Last Admin: 03/31/22 20:56 Dose: 10 mg Documented By: TUAN Dicyclomine HCl (Dicyclomine Hcl 10 Mg Capsule) 20 mg PO Q6H [facility] Last Admin: 04/04/22 08:46 Dose: 20 mg Documented By: VICENTA Enoxaparin Sodium (Enoxaparin Sodium 40 Mg/0.4 Ml Syringe) 40 mg SUBCUT Q24H [facility] Last Admin: 04/03/22 14:01 Dose: 40 mg Documented By: NEL Escitalopram Oxalate (Escitalopram Oxalate 10 Mg Tablet) 10 mg PO DAILY [facility] Last Admin: 04/04/22 08:47 Dose: 10 mg Documented By: VICENTA Gabapentin (Gabapentin 400 Mg Capsule) 800 mg PO BID [facility] Last Admin: 04/04/22 08:47 Dose: 800 mg Documented By: VICENTA Hydromorphone HCl (Hydromorphone Hcl 1 Mg/Ml Syringe) 0.5 mg IVPUSH Q4H PRN; Protocol PRN Reason: Pain, Severe (Pain Scale 7-10) Last Admin: 04/04/22 08:47 Dose: 0.5 mg Documented By: VICENTA Vancomycin HCl 1,000 mg/ (Sodium Chloride) 270 mls @ 270 mls/hr IV Q24H [facility] Last Infusion: 04/03/22 19:33 Dose: 0 mls/hr Documented By: DUSTY Piperacillin Sod/Tazobactam (Sod 3.375 gm/ Sodium Chloride) 50 mls @ 100 mls/hr IV Q6H [facility] Last Infusion: 04/04/22 09:39 Dose: 0 mls/hr Documented By: VICENTA Ibuprofen (Ibuprofen 800 Mg Tablet) 800 mg PO Q8H [facility] Last Admin: 04/04/22 05:52 Dose: 800 mg Documented By: DUSTY Loperamide HCl (Loperamide Hcl 2 Mg Capsule) 2 mg PO Q6H PRN PRN Reason: loose stool Metoprolol Tartrate (Metoprolol Tartrate 50 Mg Tablet) 50 mg PO BID [facility]; Protocol Last Admin: 04/04/22 08:47 Dose: 50 mg Documented By: VICENTA Omeprazole (Omeprazole 20 Mg Capsule.Dr) 20 mg PO DAILY [facility] Last Admin: 04/04/22 08:47 Dose: 20 mg Documented By: VICENTA Ondansetron HCl (Ondansetron Hcl 4 Mg/2 Ml Vial) 4 mg IVPUSH QID PRN PRN Reason: Nausea Oxycodone HCl (Oxycodone Hcl Immed Release 5 Mg Tablet) 5 mg PO Q6H PRN PRN Reason: Pain, Moderate (Pain Scale 4-6 Last Admin: 04/04/22 03:00 Dose: 5 mg Documented By: DUSTY Pharmacy Consult (Consult Rx Perform Med Rec) 1 each MISCELLANE ONCE PRN PRN Reason: Consult order Pharmacy Consult (Consult Rx Vancomycin Dosing) 1 each MISCELLANE DAILY PRN PRN Reason: Consult order Polyethylene Glycol (Polyethylene Glycol 3350 17 Gm Powd.Pack) 17 gm PO BID PRN PRN Reason: constipation Sodium Chloride (0.9 % Sodium Chloride Flush 3 Ml Syringe) 3 ml IVFLUSH QSHIFT [facility] Last Admin: 04/04/22 08:56 Dose: 3 ml Documented By: VICENTA Trazodone HCl (Trazodone Hcl 100 Mg Tablet) 300 mg PO BEDTIME [facility] Last Admin: 04/03/22 20:26 Dose: 300 mg Documented By: DUSTY Zolpidem Tartrate (Zolpidem Tartrate 5 Mg Tablet) 5 mg PO BEDTIME PRN PRN Reason: Insomnia Labs CBC & Chem 7: 04/02/22 05:35 04/05/22 06:08 Labs: Laboratory Results - last 24 hr 04/03/22 04/04/22 14:01 05:52 Estim Creat Clear Calc 37.2 Estimated GFR 45 Random Vancomycin 11.2 L Procedures Date of Service Date of Service: 04/04/22 Progress Note: A&P Assessment and plan (1) Cellulitis of chest wall: Status: Acute Plan Aspiration of seroma done yesterday Says she still has pain on the area Redness has been improving Dressings changed Continue antibiotics for cellulitis Possible home tomorrow Seen and examined Time Spent With Patient Time: Total time spent is greater than 50% in coordination of care (as documented) at patient's floor/unit and/or counseling patient: Quality Stroke Does the patient have a stroke diagnosis?: No VTE Prior VTE?: No VTE Risk Level:: Surgical - moderate VTE Device Contraindication: N/A - Device Ordered VTE Drug Contraindication: N/A - Med Ordered
[2022-04-04 11:55] VITALS: BP 137/64; PULSE 58; RESP 18; TEMP 36.7; O2SAT 96
[2022-04-04] MEDS: Enoxaparin Sodium 40 MG/0.4 ML SYRINGE SUBCUT (14:17)
[2022-04-04 15:37] VITALS: BP 135/63; PULSE 66; RESP 18; TEMP 37.1; O2SAT 96
[2022-04-04] MEDS: vancomycin HCL 1,000 MG in 0.9 % Sodium Chloride 250 ML 270 MG IV (16:40)
[2022-04-04 19:13] VITALS: BP 133/72; PULSE 68; RESP 18; TEMP 37.1; O2SAT 95
[2022-04-04] MEDS: traZODone HCL 100 MG TABLET 300 MG PO (21:58)
[2022-04-04] MEDS: Amitriptyline HCl 10 MG TABLET PO (21:58)
[2022-04-04] MEDS: Cyclobenzaprine HCl 10 MG TABLET PO (21:59)
[2022-04-04 23:24] VITALS: BP 117/58; PULSE 64; RESP 18; TEMP 36.3; O2SAT 95
[2022-04-05] MEDS: Piperacillin Sodium/Tazobactam 3.375 GM in 0.9 % Sodium Chloride 50 ML IV ×4 (03:00→20:43)
[2022-04-05 03:14] VITALS: BP 119/73; PULSE 69; RESP 18; TEMP 36.4; O2SAT 96
[2022-04-05] MEDS: Dicyclomine HCl 10 MG CAPSULE 20 MG PO ×4 (03:35→20:43)
[2022-04-05] MEDS: Ibuprofen 800 MG TABLET PO ×3 (05:48→20:43)
[2022-04-05 07:09] LABS: Creatinine Clr Calc Pharmacy 42.7; Estimated Glomerular Filt Rate 53
[2022-04-05 08:00] VITALS: BP 138/66; PULSE 62; RESP 19; TEMP 36.8; O2SAT 96
[2022-04-05] MEDS: Omeprazole 20 MG CAPSULE.DR PO (08:14)
[2022-04-05] MEDS: Acetaminophen 325 MG TABLET 650 MG PO (08:14)
[2022-04-05] MEDS: amLODIPine Besylate 10 MG TABLET PO (08:15)
[2022-04-05] MEDS: Atorvastatin Calcium 20 MG TABLET PO (08:15)
[2022-04-05] MEDS: Gabapentin 400 MG CAPSULE 800 MG PO ×2 (08:15→20:44)
[2022-04-05] MEDS: Metoprolol Tartrate 50 MG TABLET PO ×2 (08:15→20:44)
[2022-04-05] MEDS: Escitalopram Oxalate 10 MG TABLET PO (08:15)
--- NOTE | 2022-04-05 09:03 | PM.PNGS ---
Subjective Subjective Date of Service: 04/05/22 Interval history: pain better on mastectomy sites no fever Physical Exam Vital Signs: Vital Signs: Last Vital Signs Temp 98.2 F 04/05/22 08:00 Pulse 62 04/05/22 08:00 Resp 19 04/05/22 08:00 BP 138/66 04/05/22 08:00 Pulse Ox 96 04/05/22 08:00 O2 Del Method 04/05/22 08:00 BMI result Body Mass Index 38.0 Const: General: comfortable and no acute distress Chest: Other: redness much improved both mastectomy sites, no obvious fluctuance, no discharge Resp: Effort & Inspection: normal respiratory effort Cardio: Rate: regular rate GI: Palpation (GI): Soft to palpation and not firm Objective Data Active Medications Acetaminophen (Acetaminophen 325 Mg Tablet) 650 mg PO Q6H PRN PRN Reason: Pain, Mild (Pain Scale 1-3) Last Admin: 04/05/22 08:14 Dose: 650 mg Documented By: BAKARI Amitriptyline HCl (Amitriptyline Hcl 10 Mg Tablet) 10 mg PO BEDTIME [facility] Last Admin: 04/04/22 21:58 Dose: 10 mg Documented By: CARMINE Amlodipine Besylate (Amlodipine Besylate 10 Mg Tablet) 10 mg PO DAILY [facility]; Protocol Last Admin: 04/05/22 08:15 Dose: 10 mg Documented By: BAKARI Atorvastatin Calcium (Atorvastatin Calcium 20 Mg Tablet) 20 mg PO DAILY [facility] Last Admin: 04/05/22 08:15 Dose: 20 mg Documented By: BAKARI Cyclobenzaprine HCl (Cyclobenzaprine Hcl 10 Mg Tablet) 10 mg PO TID PRN PRN Reason: muscle spasm Last Admin: 04/04/22 21:59 Dose: 10 mg Documented By: CARMINE Dicyclomine HCl (Dicyclomine Hcl 10 Mg Capsule) 20 mg PO Q6H [facility] Last Admin: 04/05/22 03:35 Dose: 20 mg Documented By: CARMINE Enoxaparin Sodium (Enoxaparin Sodium 40 Mg/0.4 Ml Syringe) 40 mg SUBCUT Q24H [facility] Last Admin: 04/04/22 14:17 Dose: 40 mg Documented By: VICENTA Escitalopram Oxalate (Escitalopram Oxalate 10 Mg Tablet) 10 mg PO DAILY [facility] Last Admin: 04/05/22 08:15 Dose: 10 mg Documented By: BAKARI Gabapentin (Gabapentin 400 Mg Capsule) 800 mg PO BID [facility] Last Admin: 04/05/22 08:15 Dose: 800 mg Documented By: BAKARI Hydromorphone HCl (Hydromorphone Hcl 1 Mg/Ml Syringe) 0.5 mg IVPUSH Q4H PRN; Protocol PRN Reason: Pain, Severe (Pain Scale 7-10) Last Admin: 04/04/22 17:54 Dose: 0.5 mg Documented By: VICENTA Vancomycin HCl 1,000 mg/ (Sodium Chloride) 270 mls @ 270 mls/hr IV Q24H [facility] Last Infusion: 04/04/22 18:21 Dose: 0 mls/hr Documented By: VICENTA Piperacillin Sod/Tazobactam (Sod 3.375 gm/ Sodium Chloride) 50 mls @ 100 mls/hr IV Q6H [facility] Last Admin: 04/05/22 08:15 Dose: 100 mls/hr Documented By: BAKARI Ibuprofen (Ibuprofen 800 Mg Tablet) 800 mg PO Q8H [facility] Last Admin: 04/05/22 05:48 Dose: 800 mg Documented By: CASTPERFECTO Loperamide HCl (Loperamide Hcl 2 Mg Capsule) 2 mg PO Q6H PRN PRN Reason: loose stool Metoprolol Tartrate (Metoprolol Tartrate 50 Mg Tablet) 50 mg PO BID [facility]; Protocol Last Admin: 04/05/22 08:15 Dose: 50 mg Documented By: BAKARI Omeprazole (Omeprazole 20 Mg Capsule.Dr) 20 mg PO DAILY [facility] Last Admin: 04/05/22 08:14 Dose: 20 mg Documented By: BAKARI Ondansetron HCl (Ondansetron Hcl 4 Mg/2 Ml Vial) 4 mg IVPUSH QID PRN PRN Reason: Nausea Oxycodone HCl (Oxycodone Hcl Immed Release 5 Mg Tablet) 5 mg PO Q6H PRN PRN Reason: Pain, Moderate (Pain Scale 4-6 Last Admin: 04/04/22 14:11 Dose: 5 mg Documented By: VICENTA Pharmacy Consult (Consult Rx Perform Med Rec) 1 each MISCELLANE ONCE PRN PRN Reason: Consult order Pharmacy Consult (Consult Rx Vancomycin Dosing) 1 each MISCELLANE DAILY PRN PRN Reason: Consult order Polyethylene Glycol (Polyethylene Glycol 3350 17 Gm Powd.Pack) 17 gm PO BID PRN PRN Reason: constipation Sodium Chloride (0.9 % Sodium Chloride Flush 3 Ml Syringe) 3 ml IVFLUSH QSHIFT [facility] Last Admin: 04/04/22 21:59 Dose: 3 ml Documented By: CASTILRuiz Trazodone HCl (Trazodone Hcl 100 Mg Tablet) 300 mg PO BEDTIME [facility] Last Admin: 04/04/22 21:58 Dose: 300 mg Documented By: CASTILRuiz Zolpidem Tartrate (Zolpidem Tartrate 5 Mg Tablet) 5 mg PO BEDTIME PRN PRN Reason: Insomnia Labs CBC & Chem 7: 04/02/22 05:35 04/05/22 06:08 Labs: Laboratory Results - last 24 hr 04/05/22 06:08 Estim Creat Clear Calc 42.7 Estimated GFR 53 Microbiology Microbiology Results: Microbiology 03/30/22 14:31 Blood Culture - Final Blood - Venous No growth after 5 days. 03/30/22 14:31 Blood Culture - Final Blood - Venous No growth after 5 days. Procedures Date of Service Date of Service: 04/05/22 Progress Note: A&P Assessment and plan (1) Cellulitis of chest wall: Status: Acute Assessment and Plan: redness has faded difficulty has been on vancomycin and Zosyn appears ready to be discharged today will check with Dr. Plunkett regarding oral antibiotics (2) Seroma: Status: Acute Assessment and Plan: aspiration done 2 days - seroma fluid no pus Time Spent With Patient Time: Total time spent is greater than 50% in coordination of care (as documented) at patient's floor/unit and/or counseling patient: Quality Stroke Does the patient have a stroke diagnosis?: No VTE Prior VTE?: No VTE Risk Level:: Surgical - moderate VTE Device Contraindication: N/A - Device Ordered VTE Drug Contraindication: N/A - Med Ordered
[2022-04-05] MEDS: Cyclobenzaprine HCl 10 MG TABLET PO ×2 (11:07→20:44)
[2022-04-05] MEDS: oxyCODONE HCl Immed Release 5 MG TABLET PO (11:07)
[2022-04-05 11:59] VITALS: BP 150/67; PULSE 67; RESP 18; TEMP 36.6; O2SAT 97
[2022-04-05] MEDS: Enoxaparin Sodium 40 MG/0.4 ML SYRINGE SUBCUT (14:29)
[2022-04-05] MEDS: 0.9 % Sodium Chloride Flush 3 ML SYRINGE IVFLUSH ×2 (14:29→20:44)
--- NOTE | 2022-04-05 14:29 | MHC.CM.PN ---
PER SURGERY, PT LIKELY TO DC TOMORROW NA NOTIFIED
[2022-04-05 14:53] VITALS: BP 122/59; PULSE 62; RESP 18; TEMP 36.6; O2SAT 97
[2022-04-05 15:04] LABS: Vancomycin Random 15.2 mcg/mL (15-20)
--- NOTE | 2022-04-05 15:17 | HE.PHANOTE ---
Vanco level came back at 15.2 04/05/22 @1408, scr steady, insight says to keep 1000 mg q24h with auc 462
[2022-04-05] MEDS: vancomycin HCL 1,000 MG in 0.9 % Sodium Chloride 250 ML 270 MG IV (15:44)
[2022-04-05 18:59] VITALS: BP 133/62; PULSE 67; RESP 18; TEMP 36.2; O2SAT 95
[2022-04-05] MEDS: traZODone HCL 100 MG TABLET 300 MG PO (20:43)
[2022-04-05] MEDS: Amitriptyline HCl 10 MG TABLET PO (20:43)
[2022-04-05 23:25] VITALS: BP 109/70; PULSE 60; RESP 17; TEMP 36.8; O2SAT 95
[2022-04-06] MEDS: Piperacillin Sodium/Tazobactam 3.375 GM in 0.9 % Sodium Chloride 50 ML IV ×2 (03:15→08:03)
[2022-04-06 03:54] VITALS: BP 127/60; PULSE 60; RESP 16; TEMP 36.8; O2SAT 98
[2022-04-06] MEDS: Dicyclomine HCl 10 MG CAPSULE 20 MG PO ×2 (03:58→10:01)
[2022-04-06] MEDS: Ibuprofen 800 MG TABLET PO (06:35)
[2022-04-06 06:37] LABS: Creatinine Clr Calc Pharmacy 39.2; Estimated Glomerular Filt Rate 48
--- NOTE | 2022-04-06 07:00 | HE.PHANOTE ---
JODIE TOWNSEND CONTINUE CURRENT DOSE, NEXT TROUGH DUE 04/07 @1400 CLAUDIA
--- NOTE | 2022-04-06 07:39 | PM.PNGS ---
Subjective Subjective Date of Service: 04/06/22 Interval history: no new complaints feels well says she is ready to go home today Physical Exam Vital Signs: Vital Signs: Last Vital Signs Temp 98.2 F 04/06/22 03:54 Pulse 60 04/06/22 03:54 Resp 16 04/06/22 03:54 BP 127/60 04/06/22 03:54 Pulse Ox 98 04/06/22 03:54 O2 Del Method 04/06/22 03:54 BMI result Body Mass Index 38.0 Const: General: comfortable and no acute distress Chest: Other: redness on the left chest wall much improved, very minimal residual induration Resp: Effort & Inspection: normal respiratory effort Cardio: Rate: regular rate Objective Data Active Medications Acetaminophen (Acetaminophen 325 Mg Tablet) 650 mg PO Q6H PRN PRN Reason: Pain, Mild (Pain Scale 1-3) Last Admin: 04/05/22 08:14 Dose: 650 mg Documented By: BAKARI Amitriptyline HCl (Amitriptyline Hcl 10 Mg Tablet) 10 mg PO BEDTIME [facility] Last Admin: 04/05/22 20:43 Dose: 10 mg Documented By: CARMINE Amlodipine Besylate (Amlodipine Besylate 10 Mg Tablet) 10 mg PO DAILY [facility]; Protocol Last Admin: 04/05/22 08:15 Dose: 10 mg Documented By: BAKARI Atorvastatin Calcium (Atorvastatin Calcium 20 Mg Tablet) 20 mg PO DAILY [facility] Last Admin: 04/05/22 08:15 Dose: 20 mg Documented By: BAKARI Cyclobenzaprine HCl (Cyclobenzaprine Hcl 10 Mg Tablet) 10 mg PO TID PRN PRN Reason: muscle spasm Last Admin: 04/05/22 20:44 Dose: 10 mg Documented By: CARMINE Dicyclomine HCl (Dicyclomine Hcl 10 Mg Capsule) 20 mg PO Q6H [facility] Last Admin: 04/06/22 03:58 Dose: 20 mg Documented By: CARMINE Enoxaparin Sodium (Enoxaparin Sodium 40 Mg/0.4 Ml Syringe) 40 mg SUBCUT Q24H [facility] Last Admin: 04/05/22 14:29 Dose: 40 mg Documented By: BAKARI Escitalopram Oxalate (Escitalopram Oxalate 10 Mg Tablet) 10 mg PO DAILY [facility] Last Admin: 04/05/22 08:15 Dose: 10 mg Documented By: BAKARI Gabapentin (Gabapentin 400 Mg Capsule) 800 mg PO BID [facility] Last Admin: 04/05/22 20:44 Dose: 800 mg Documented By: CARMINE Hydromorphone HCl (Hydromorphone Hcl 1 Mg/Ml Syringe) 0.5 mg IVPUSH Q4H PRN; Protocol PRN Reason: Pain, Severe (Pain Scale 7-10) Last Admin: 04/04/22 17:54 Dose: 0.5 mg Documented By: VICENTA Vancomycin HCl 1,000 mg/ (Sodium Chloride) 270 mls @ 270 mls/hr IV Q24H [facility] Last Infusion: 04/05/22 17:08 Dose: 0 mls/hr Documented By: BAKARI Piperacillin Sod/Tazobactam (Sod 3.375 gm/ Sodium Chloride) 50 mls @ 100 mls/hr IV Q6H [facility] Last Infusion: 04/06/22 03:57 Dose: 0 mls/hr Documented By: CARMINE Ibuprofen (Ibuprofen 800 Mg Tablet) 800 mg PO Q8H [facility] Last Admin: 04/06/22 06:35 Dose: 800 mg Documented By: CARMINE Loperamide HCl (Loperamide Hcl 2 Mg Capsule) 2 mg PO Q6H PRN PRN Reason: loose stool Metoprolol Tartrate (Metoprolol Tartrate 50 Mg Tablet) 50 mg PO BID [facility]; Protocol Last Admin: 04/05/22 20:44 Dose: 50 mg Documented By: CARMINE Comments: WI=[id number] H=67 Omeprazole (Omeprazole 20 Mg Capsule.Dr) 20 mg PO DAILY [facility] Last Admin: 04/05/22 08:14 Dose: 20 mg Documented By: BAKARI Ondansetron HCl (Ondansetron Hcl 4 Mg/2 Ml Vial) 4 mg IVPUSH QID PRN PRN Reason: Nausea Oxycodone HCl (Oxycodone Hcl Immed Release 5 Mg Tablet) 5 mg PO Q6H PRN PRN Reason: Pain, Moderate (Pain Scale 4-6 Last Admin: 04/05/22 11:07 Dose: 5 mg Documented By: BAKARI Pharmacy Consult (Consult Rx Perform Med Rec) 1 each MISCELLANE ONCE PRN PRN Reason: Consult order Pharmacy Consult (Consult Rx Vancomycin Dosing) 1 each MISCELLANE DAILY PRN PRN Reason: Consult order Polyethylene Glycol (Polyethylene Glycol 3350 17 Gm Powd.Pack) 17 gm PO BID PRN PRN Reason: constipation Sodium Chloride (0.9 % Sodium Chloride Flush 3 Ml Syringe) 3 ml IVFLUSH QSHIFT [facility] Last Admin: 04/05/22 20:44 Dose: 3 ml Documented By: CASTILRuiz Trazodone HCl (Trazodone Hcl 100 Mg Tablet) 300 mg PO BEDTIME [facility] Last Admin: 04/05/22 20:43 Dose: 300 mg Documented By: CASTILRuiz Zolpidem Tartrate (Zolpidem Tartrate 5 Mg Tablet) 5 mg PO BEDTIME PRN PRN Reason: Insomnia Labs CBC & Chem 7: 04/02/22 05:35 04/06/22 05:07 Labs: Laboratory Results - last 24 hr 04/05/22 04/06/22 14:08 05:07 Estim Creat Clear Calc 39.2 Estimated GFR 48 Random Vancomycin 15.2 Procedures Date of Service Date of Service: 04/06/22 Progress Note: A&P Assessment and plan (1) Seroma: Status: Acute Assessment and Plan: status post aspiration redness much improved she feels better she says she is ready to be discharged to continue doxycycline as per ID follow-up with Dr. Malik next week (2) Cellulitis of chest wall: Status: Acute Time Spent With Patient Time: Total time spent is greater than 50% in coordination of care (as documented) at patient's floor/unit and/or counseling patient: Quality Stroke Does the patient have a stroke diagnosis?: No VTE Prior VTE?: No VTE Risk Level:: Surgical - moderate VTE Device Contraindication: N/A - Device Ordered VTE Drug Contraindication: N/A - Med Ordered
[2022-04-06 07:50] VITALS: BP 113/57; PULSE 64; RESP 17; TEMP 36.7; O2SAT 95
[2022-04-06] MEDS: Omeprazole 20 MG CAPSULE.DR PO (08:04)
[2022-04-06] MEDS: Metoprolol Tartrate 50 MG TABLET PO (08:04)
[2022-04-06] MEDS: Atorvastatin Calcium 20 MG TABLET PO (08:04)
[2022-04-06] MEDS: amLODIPine Besylate 10 MG TABLET PO (08:04)
[2022-04-06] MEDS: Escitalopram Oxalate 10 MG TABLET PO (08:04)
[2022-04-06] MEDS: Gabapentin 400 MG CAPSULE 800 MG PO (08:04)
[2022-04-06] MEDS: 0.9 % Sodium Chloride Flush 3 ML SYRINGE IVFLUSH (08:04)
[2022-04-06] MEDS: Acetaminophen 325 MG TABLET 650 MG PO (10:02)
--- NOTE | 2022-04-06 14:00 | MHC.CM.PN ---
PT DISCHARGED HOME TODAY WITH NO SERVICES FAMILY PROVIDED TRANSPORT
--- NOTE | 2022-04-09 10:59 | PM.DS ---
DS: Providers Provider Date of Service: 04/12/22 Date of admission: 03/30/22 14:58 Date of discharge: 04/12/22 Primary care physician: Milan Mcgraw PA-C Attending physician on admission: Renard Malik Consults: 03/30/22 15:46 Consult to Infectious Diseases Routine Consulting Provider: Becky Plunkett Reason for consultation: left chest cellulitis, s/p bilateral mastectomy Attending physician on discharge: Deven Thomas DS: Diagnosis Discharge Diagnosis (1) Seroma: Status: Acute (2) Cellulitis of chest wall: Status: Acute DS: Summary Hospital Course Hospital Course: BRIEF HPI: 71 year old female who initially presented to the office with complaints of redness and pain at the left mastectomy site. She underwent right modified radical mastectomy and left simple mastectomy for recurrent left breast cancer at the patient's request on 02/19/22 without immediate post op or recovery complications. She was admitted previously around 2 weeks post op for sepsis due to a large purulent collection in the left mastectomy site that was drained through the Zach-Spear drain after a clot was removed and treated with IV abx with improvement. She was discharged on oral antibiotics. Her GENET was removed and has developed seromas of the left mastectomy site and has required aspirations. This current episode she presented to the office with redness and was trialed with oral doxycycline without much improvement.? She had approximately 35 mL of clear serous fluid drained from the left chest.? HOSPITAL COURSE: She was admitted to the surgical service for treatment of the cellulitis with IV antibiotics. An ID consult was obtained for antibiotic recommendations. She was started on IV vancomycin and zosyn. She had gradual improvement of the cellulitis. Breast fluid cultures obtained in the office and blood cultures were negative. An US of the left breast was performed which showed a circumscribed complicated fluid collection with numerous internal septations anterior left chest wall measuring 8.9 x 5.2 x 4.2 cm without circumferential hyperemia on color Doppler felt to represent a seroma. It was therefore recommended to repeat the aspiration of the collection and this was done at bedside by Dr. Thomas on 04/03/22 without complication and 20 cc of clear serous fluid was aspirated, no purulence present. Her cellulitis continued to improve and there was minimal residual erythema and induration and no palpable fluid collection. She completed a 7 day course of IV vanco and zosyn. She was discharged to home on 04/06/22 in stable condition and on a 7 day course of PO doxycyline. She is to follow up in the office in 1 week. Status at Discharge Functional status at discharge: independent ambulation Overall status at discharge: patient is progressing back to baseline Time Spent with Patient Time attestation: Total time spent providing and/or coordinating discharge services: Discharge coordination time: Greater than 30 minutes Quality: Safe Use of Opioids Does Pt have an Active Cancer Diagnosis on the Problem List?: Yes Opioid Measure Date for [facility] Report: 03/10/22 Opioid Measure Time for [facility] Report: 14:06 Quality: Stroke Does the patient have a stroke diagnosis?: No Physical Exam Vital Signs: Vital Signs: Last Vital Signs Temp 98.0 F 04/06/22 07:50 Pulse 64 04/06/22 07:50 Resp 17 04/06/22 07:50 BP 113/57 L 04/06/22 07:50 Pulse Ox 95 04/06/22 07:50 O2 Del Method 04/06/22 07:50 BMI result Body Mass Index 38.0 Const: General: comfortable, well developed and alert Chest: Other: left mastectomy site with significantly improved erythema and little induration, no palpable fluid collection Resp: Effort & Inspection: normal respiratory effort Skin: General skin exam: no rashes or lesions noted Neuro: General: moves all extremities DS: Data Data Completed and Pending Completed studies during hospitalization [Text1]: Procedures Resection of Bilateral Breast, Open Approach (02/19/22) Resection of Right Axillary Lymphatic, Open Approach (02/19/22) Discharge Plan Discharge Anticipated Discharge Date/Time: 04/05/22 10:50 Patient Disposition: Home, Self-Care Discharge Diagnosis: cellulitis left chest Referrals: Milan Mcgraw PA-C [Primary Care Provider] - 1 Week (call office to schedule follow up with pcp) Renard Malik MD [Physician] - 1 Week Discharge Medications: New doxycycline monohydrate 100 mg tablet 100 mg PO DAILY Qty: 7 0RF Continued (DME) blood-glucose meter [FreeStyle Lite Meter] Kit See Rx Instructions .ROUTE .MEDSUPPLY Qty: 1 0RF Rx Instructions: As directed tramadol 50 mg tablet 1 tab PO TID PRN (Reason: Pain) polyethylene glycol 3350 [Miralax] 17 gram/dose powder 17 g PO BID PRN (Reason: constipation) Qty: 119 0RF (DME) lancets [FreeStyle Lancets] 28 gauge misc See Rx Instructions .ROUTE .MEDSUPPLY Qty: 100 3RF Rx Instructions: As directed (DME) FreeStyle Lite Strips Strip See Rx Instructions .ROUTE .MEDSUPPLY Qty: 100 3RF Rx Instructions: As directed acetaminophen 650 mg tablet extended release 650 mg PO Q12H 90 Days Qty: 180 1RF atorvastatin 20 mg tablet 20 mg PO DAILY Qty: 90 1RF citalopram 20 mg tablet 20 mg PO DAILY Qty: 90 1RF cyclobenzaprine 10 mg tablet 10 mg PO TID PRN (Reason: muscle spasm) 15 Days Qty: 45 3RF gabapentin 800 mg tablet 800 mg PO BID 30 Days Qty: 60 3RF dicyclomine 10 mg capsule 20 mg PO Q6H 30 Days Qty: 240 0RF ibuprofen 800 mg tablet 800 mg PO Q8H 90 Days Qty: 270 1RF metoprolol tartrate 50 mg tablet 50 mg PO BID Qty: 180 2RF omeprazole 20 mg capsule,delayed release(DR/EC) 20 mg PO DAILY 90 Days Qty: 90 1RF trazodone 100 mg tablet 300 mg PO BEDTIME 90 Days Qty: 270 2RF (DME) Blood Pressure Cuff Misc See Rx Instructions .ROUTE .MEDSUPPLY Qty: 1 0RF Rx Instructions: As directed amitriptyline 10 mg tablet 10 mg PO BEDTIME Qty: 90 2RF amlodipine 10 mg tablet 10 mg PO DAILY 90 Days Qty: 90 1RF loperamide [Imodium A-D] 2 mg capsule 2 mg PO Q6H PRN (Reason: loose stool) Qty: 30 0RF Discontinued doxycycline monohydrate 100 mg capsule 1 cap PO BID No Action oxycodone-acetaminophen [Percocet] 5-325 mg tablet 1 tab PO Q6H PRN (Reason: pain) Qty: 12 0RF Rx Instructions: Partial Fill upon patient request. Discharge Orders: Discharge Order (Routine); Ordered 04/06/22 Ordered By: Deven Thomas Diet: Advance to usual diet Activity on Discharge: As tolerated Stand Alone Forms: Patient Portal Discharge page Care Plan Goals: Return to baseline health and gradual return to activity. Resolution of the left breast seroma and cellulitis. Health Concerns: Cellulitis, left mastectomy site Plan of Treatment: warm cmpresses ffup with Dr. Helena CASTRO antibiotics Assessment: Improved Discharge Date/Time: 04/06/22 13:20
== END 2022-04-06 13:20 | disposition home or self-care (01) | DRG 920 ==
LOC: HO.ED 14:37 → HO.EDOVER 15:17 → HO.S3 22:02
PROVIDERS: Surgery; Admitting Provider Surgery; Emergency Provider Emergency Medicine; PCP Physician Assistant; Visit Provider Surgery
DX: M96.843 Postprocedural seroma of a musculoskeletal structure following other procedure (principal); L03.313 Cellulitis of chest wall; Y83.8 Other surgical procedures as the cause of abnormal reaction of the patient, or of later complication, without mention of misadventure at the time of the procedure; F32.A Depression, unspecified; K21.9 Gastro-esophageal reflux disease without esophagitis; E10.9 Type 1 diabetes mellitus without complications; Z20.822 Contact with and (suspected) exposure to COVID-19; Z90.13 Acquired absence of bilateral breasts and nipples; Z79.899 Other long term (current) drug therapy
CPT/HCPCS: 36415; 76642; 80048; 80076; 80202; 82565; 82947; 83605; 83735; 85007; 85025; 85027; 87040; 87070; 87205; 87635; 99284; J1170; J1650; J2270; J2405; J2543; J3370

== ENCOUNTER 2022-04-13 11:30 | Inpatient (IN) | payer OTHER, SELFPAY ==
--- NOTE | ~2022-04-13 | US_ITS ---
EXAMINATION: US DIAGNOSTIC ULTRASOUND BREAST, LEFT CLINICAL INFORMATION: Status post mastectomy with pain. COMPARISON: April 03, 2022. TECHNIQUE: Ultrasound of the breast is performed with real-time sorensen scale imaging and color Doppler. FINDINGS: In the upper outer quadrant of the left chest there is an 8.3 x 2.9 x 5.2 cm nonvascular heterogeneous echotexture and hypoechoic region which may represent a complex fluid collection or phlegmon with some adjacent subcutaneous edema. US/US breast LT limited IMPRESSION: Complex fluid collection or phlegmon/postsurgical change within the upper outer quadrant of the left breast. ASSESSMENT: BI-RADS 2: Benign RECOMMENDATION: Clinical evaluation
--- NOTE | ~2022-04-13 | US_ITS ---
EXAMINATION: US DIAGNOSTIC ULTRASOUND BREAST, RIGHT CLINICAL INFORMATION: Redness and pain. Rule out drainable abscess.. COMPARISON: April 03, 2022 and January 31, 2022. TECHNIQUE: Ultrasound of the breast is performed with real-time sorensen scale imaging and color Doppler. FINDINGS: Patient status post right mastectomy. There is a heterogeneous hypoechoic echogenicity region measuring approximately 5.7 x 1.0 x 5.3 cm in size. This is in the area of patient's redness in the upper inner quadrant.. No internal blood flow is seen. The region is wider than it is tall. There is some mild increased distal sound through transmission related to it.. There is some edematous change within surrounding subcutaneous tissues. This may represent a complex fluid collection versus postoperative changes. US/US breast RT limited IMPRESSION: Heterogeneous echogenicity structure in the upper inner quadrant which may represent complex fluid collection versus postoperative change. ASSESSMENT: BI-RADS 2: Benign RECOMMENDATION: Clinical evaluation
[2022-04-13 11:34] VITALS: BP 169/78; PULSE 85; RESP 16; TEMP 36.8; O2SAT 98; BMI 38.0
--- NOTE | 2022-04-13 11:43 | ED.GENADULT ---
HPI - General Adult General Chief complaint: General Medical Stated complaint: L Breast Cellulitis S/P Mastectomy 02/15 Time Seen by Provider: 04/13/22 11:37 Source: patient Mode of arrival: ambulatory Limitations: language barrier History of Present Illness HPI narrative: 71-year-old Mexican speaking female with past medical history of arthritis, diabetes, GERD, hypertension, IBS, bilateral mastectomy 02/19/[address] Malik, and recent history of bilateral chest cellulitis presents to the ED, with her daughter, with complaints of worsening pain (11/03), errythema, fever, and worsening swelling across bilateral breast/chest area. She states pain began worsening 2-3 days ago. She has taken OTC analgesics and Oxycodone 10 mg with no relief in pain. She states that she has had several episodes of cellulitis in her bilateral breast/chest, with most recent hospitalization from 04/02-04/06. Hospital course: On 04/03 left breast was aspirated and Infectious disease was consulted and she was treated with 7 days of IV Vancomycin and Zosyn with gradual improvement of cellulitis. Breast fluid cultures were negative. She was discharged home 04/06 on a 7 day course of PO doxycycline to follow up with surgery in 1 week. She was seen 04/09, post admission, by Dr Malik with marked improvement per MD. Recommendation for ultrasound-guided aspiration of remaining fluid. At this time she endorses a sensation of pain, pressure, and pressure around her chest with an increase in redness and swelling. Pain does not radiate. She endorses recent fever with temp today 101 at home, intermittent chills and diarrhea. She denies headache, changes in vision, weakness, dizziness, numbness, tingling, chest pain, or shortness of breath. Onset (ago): day(s) Location: chest Radiation: non-radiation Severity: severe Severity scale (1-10): 6 Quality: dull and constant Pain Consistency: constant Relieving factors: none Exacerbating factors: none Associated symptoms: fever/chills Treatments prior to arrival: none Related Data Home Medications Medication Instructions Recorded Confirmed atorvastatin 20 mg tablet 20 mg PO BEDTIME 04/13/22 04/13/22 oxycodone 5 mg tablet 1 tab PO Q8H PRN pain 04/13/22 04/13/22 trazodone 100 mg tablet 200 mg PO BEDTIME 04/13/22 04/13/22 Previous Rx's Medication Instructions Recorded blood-glucose meter (FreeStyle #1 ea 05/25/20 Lite Meter kit) blood sugar diagnostic (FreeStyle #100 ea 07/25/21 Lite Strips) lancets 28 gauge (FreeStyle #100 ea 07/25/21 Lancets) acetaminophen 650 mg 650 mg PO Q12H 90 days #180 tabs 01/24/22 tablet,extended release cyclobenzaprine 10 mg tablet 10 mg PO TID PRN muscle spasm 15 01/24/22 days #45 tabs dicyclomine 10 mg capsule 20 mg PO Q6H cramps 30 days #240 01/24/22 caps gabapentin 800 mg tablet 800 mg PO BID 30 days #60 tabs 01/24/22 ibuprofen 800 mg tablet 800 mg PO Q8H Pain 90 days #270 01/24/22 tabs metoprolol tartrate 50 mg tablet 50 mg PO BID #180 tabs 01/24/22 omeprazole 20 mg capsule,delayed 20 mg PO DAILY 90 days #90 caps 01/24/22 release amitriptyline 10 mg tablet 10 mg PO BEDTIME #90 tabs 03/08/22 amlodipine 10 mg tablet 10 mg PO DAILY 90 days #90 tabs 03/08/22 miscellaneous medical supply #1 ea 03/08/22 (Blood Pressure Cuff) doxycycline monohydrate 100 mg 100 mg PO DAILY #7 tabs 04/05/22 tablet mirtazapine 15 mg tablet (Remeron) 15 mg PO BEDTIME 30 days #30 tabs 04/12/22 Allergies Allergy/AdvReac Type Severity Reaction Status Date / Time No Known Allergies Allergy Verified 04/12/22 11:40 [No Known Allergies*] Review of Systems Review of Systems: Yes all other systems are reviewed and are negative Constitutional: Constitutional: Reports no additional constitutional complaints, Reports chills, Reports fever(s), Denies headache(s) and Denies weakness Eyes: Eyes: Reports no additional eye complaints and Denies change in vision ENT: Reports system reviewed and no additional complaints, except as documented, Reports Normal hearing present and Denies headache(s) Cardiovascular: Cardiovascular: Reports no additional cardiovascular complaints, Denies chest pain and Denies dyspnea Respiratory: Respiratory: Reports no additional respiratory complaints, Denies cough and Denies dyspnea Gastrointestinal: Gastrointestinal: Reports no additional gastrointestinal complaints, Denies change in stool character, Denies constipation, Reports diarrhea, Denies nausea and Denies vomiting Musculoskeletal: Musculoskeletal: Reports no additional musculoskeletal complaints, Denies numbness and Denies tingling Integumentary/Breasts: Skin/Breast: Reports system reviewed and no additional complaints, except as docu, Reports change in pigmentation and Reports erythema Neurologic: Reports system reviewed and no additional complaints, except as documented, Reports Normal hearing present, Denies headache(s), Denies numbness, Denies tingling and Denies weakness Psychiatric: Psychiatric: Reports no additional psychiatric complaints PMFSH Past Medical History Attestation statement: The following information was validated with the patient. 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 Mother Heart disease Hypertension Colon cancer Maternal Grandmother Esophageal cancer Daughter Breast cancer Brother Colon cancer Sister Breast cancer Sister Breast cancer, Onset Age: 60 Social History Social History Household Members: None Housing: Apartment Are you a primary senior care assistant to a significant other at home: No Do you presently have visiting nurse or other home services: Yes Alcohol intake: unknown Patient Tobacco Use Status: Never used Tobacco e-Cigarette/Vaping Use: Never Used Second Hand Smoke Exposure: No Advance Directives: Yes Advance Directives on File: Yes Advance Directives Date on File: 09/26/21 service: No Current occupational status: disabled 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) Hearing needs: No Vision needs: Yes Physical Exam ED Vital Signs: Vital Signs - 24 hr 04/13/22 11:34 04/13/22 11:57 04/13/22 14:48 Temperature 98.3 F 98.6 F 98.1 F Pulse Rate 85 84 81 Respiratory Rate 16 18 18 Blood Pressure 169/78 H 137/63 155/69 H Pulse Oximetry 98 97 96 Oxygen Delivery Method Room Air Room Air Room Air BMI result Body Mass Index 38.0 Const General: cooperative, no acute distress, alert and awake Nutritional Appearance: well nourished Orientation/consciousness: patient oriented x3 Limitations: language barrier HENMT Head: Yes normal to inspection and Yes atraumatic Ears: hearing grossly normal bilaterally and external ears normal General nose exam: Normal external nose present Face and sinus: Yes normal facial exam Mouth: Normal oral and palatal mucosa present Eyes General: appearance normal, both eyes and all related structures Alignment and Position: alignment normal Periorbital: periorbital findings normal Eyelids: Yes eyelids normal Conjunctivae: conjunctivae normal Sclerae: sclerae normal Corneas: corneas normal Pupils: Equal, round and reactive pupils present EOM: EOMs intact bilaterally Neck Neck: Yes normal visual inspection and Yes full ROM Chest Chest palpation & inspection: abnormal inspection of the chest Breast/axilla inspection: abnormal inspection of the breast (swelling and erthyema across chest wall/breasts) Resp Effort & Inspection: normal respiratory effort and able to speak in complete sentences Auscultation: clear to auscultation bilaterally Cardio Rate: regular rate Rhythm: regular rhythm GI Inspection: Yes normal to inspection Palpation (GI): Soft to palpation, not firm and nontender Auscultation: normal bowel sounds Back/Spine/Pelvis Cervical Spine: cervical ROM normal Thoracic/Lumbar Spine: thoracic and lumbar spine normal to inspection Skin General skin exam: no rashes or lesions noted and erythema Neuro General: patient oriented x3 Cranial nerves: Yes Equal, round and reactive pupils present and Yes Normal hearing present Cognition (Neuro): normal cognition Gait exam (Neuro): Normal gait present Motor exam (neuro): 5/5 motor strength present throughout Sensory Exam: Normal double simultaneous stimulation for sensation Extrem General: Yes normal to inspection, Yes full ROM and Yes capillary refill normal Psych Appearance: grossly normal Mental Status: mental status grossly normal Speech and movement: Normal speech and movement present Affect: normal affect Attitude: cooperative Thought process: Normal thought process present Thought content: Normal thought content present Insight: Good insight present (Psych) Judgement: Good judgement present (Psych) Course Course Course Narrative: Dr Foley consulted regarding ultrasound results. Pt to be admitted for IV antibiotics and further management. Medications Administered Generic Name Dose Route Start Last Admin Trade Name Freq PRN Reason Stop Dose Admin Sodium Chloride 1,000 mls @ 100 mls/hr 04/13/22 16:45 04/13/22 17:11 Sodium Chloride 0.45 % IVCONT Not Given .Q10H MARINA Discontinued Medications Generic Name Dose Route Start Last Admin Trade Name Freq PRN Reason Stop Dose Admin Acetaminophen 650 mg 04/13/22 16:51 04/13/22 16:58 Acetaminophen 325 Mg Tablet PO 04/13/22 16:52 650 mg ONCE ONE Administration Piperacillin Sod/Tazobactam 50 mls @ 100 mls/hr 04/13/22 16:17 04/13/22 16:49 Sod 3.375 gm/ Sodium Chloride IV 04/13/22 16:46 100 mls/hr ONCE ONE Administration Oxycodone HCl 10 mg 04/13/22 16:51 04/13/22 16:58 Oxycodone Hcl Immed Release 5 Mg Tablet PO 04/13/22 16:52 10 mg ONCE ONE Administration Medical Decision Making [facility] Narrative Medical decision making narrative: 71-year-old Mexican speaking female with recent history of bilateral chest cellulitis presents to the ED, with her daughter, with complaints of worsening pain, erythema, fever, and worsening swelling across bilateral breast/chest area which began worsening 2-3 days ago. Hematology showing no leukocytosis with stable H/H (). Chemisties unremarkable. Ultrasound left breast shows complex fluid collection withing the upper outer quadrant of the left breast with recommendation for clinical evaluation. Ultrasound right breast shows heterogeneous echogenicity structure in the upper inner quadrant which may represent complex fluid collection versus postoperative change recommending clinical evaluation as well. Medicated with oxycodone and Tylenol with moderate effect in pain reduction. Dr. Mejia, from surgery, at bedside to assess patient's chest wall. Recommendation for inpatient admission with IV vancomycin and Zosyn. Pt serology negative for Covid 19. Lab Data Result diagrams: 04/13/22 14:09 04/13/22 12:56 Labs: Lab Results 04/13/22 04/13/22 Range/Units 12:56 14:09 WBC 9.9 (4.8-10.8) X10*3/uL RBC 3.44 L (4.20-5.50) X10*6/uL Hgb 10.2 L (12.0-16.0) g/dl Hct 31.4 L (37.0-47.0) % MCV 91.3 (80.0-98.0) fL MCH 29.7 (27.0-33.0) pg MCHC 32.5 (31.0-35.0) g/dl RDW 13.4 (11.0-16.0) % Plt Count 419 H (160-400) X10*3/uL MPV 9.6 (9.4-12.3) fL Immature Gran % (Auto) 0.7 H (0.0-0.4) % Neut % (Auto) 65.4 (45-73) % Lymph % (Auto) 23.3 (20-40) % [place] % (Auto) 7.4 (2-11) % Eos % (Auto) 2.6 (0-4) % Baso % (Auto) 0.6 (0-2) % Lymph # (Auto) 2.3 (1.2-4.9) X10*3/uL [place] # (Auto) 0.7 (0.1-1.2) X10*3/uL Eos # (Auto) 0.3 (0.0-0.4) X10*3/uL Baso # (Auto) 0.1 (0.0-0.2) X10*3/uL Abs Immat Gran (auto) 0.07 H (0.00-0.03) X10*3/uL Absolute Neuts (auto) 6.5 (2.0-8.3) x10*3/uL Absolute Nucleated RBC 0.000 (0.0-0.012) X10*3/uL Nucleated RBC % (auto) 0.0 (0.0-0.2) /100WBC Sodium 139 (135-145) mmol/L Potassium 4.8 (3.3-5.1) mmol/L Chloride 107 (96-108) mmol/L Carbon Dioxide 21 L (22-29) mmol/L Anion Gap 16 (12-20) BUN 26 H (9-16) mg/dL Creatinine 1.04 (0.5-1.4) mg/dL Estim Creat Clear Calc 41.8 Estimated GFR 52 Random Glucose 118 H (60-115) mg/dL Calcium 9.1 (8.4-10.2) mg/dL Total Bilirubin 0.2 (0.0-1.0) mg/dL AST 15 (5-31) U/L ALT 13 (0-31) U/L Alkaline Phosphatase 88 (39-117) U/L Total Protein 6.8 (6.5-8.0) g/dL Albumin 3.6 (3.5-5.0) g/dL Imaging Data Breast ultrasound LT: Radiologist's impression: EXAMINATION: US DIAGNOSTIC ULTRASOUND BREAST, LEFT CLINICAL INFORMATION:? Status post mastectomy with pain. COMPARISON: April 03, 2022. TECHNIQUE: Ultrasound of the breast is performed with real-time sorensen scale imaging and color Doppler. FINDINGS: In the upper outer quadrant of the left chest there is an 8.3 x 2.9 x 5.2 cm nonvascular heterogeneous echotexture and hypoechoic region which may represent a complex fluid collection or phlegmon with some adjacent subcutaneous edema. US/US breast LT limited IMPRESSION: Complex fluid collection or phlegmon/postsurgical change within the upper outer quadrant of the left breast. ? ASSESSMENT:? BI-RADS 2: Benign ? RECOMMENDATION: Clinical evaluation ? Dictated By: Sy Le MD Signed By: <Electronically signed by Sy Le MD in OV> 04/13/22 1446 DD/ 1337 TD/TT:? Track Repairer Helper: SK Breast ultrasound RT: Radiologist's impression: EXAMINATION: US DIAGNOSTIC ULTRASOUND BREAST, RIGHT CLINICAL INFORMATION:? Redness and pain. Rule out drainable abscess.. COMPARISON: April 03, 2022 and January 31, 2022. TECHNIQUE: Ultrasound of the breast is performed with real-time sorensen scale imaging and color Doppler. FINDINGS: Patient status post right mastectomy. There is a heterogeneous hypoechoic echogenicity region measuring approximately 5.7 x 1.0 x 5.3 cm in size. This is in the area of patient's redness in the upper inner quadrant..? No internal blood flow is seen. The region is wider than it is tall. There is some mild increased distal sound through transmission related to it.. There is some edematous change within surrounding subcutaneous tissues. This may represent a complex fluid collection versus postoperative changes. US/US breast RT limited IMPRESSION: Heterogeneous echogenicity structure in the upper inner quadrant which may represent complex fluid collection versus postoperative change. ? ASSESSMENT:? BI-RADS 2: Benign ? RECOMMENDATION: Clinical evaluation ? Dictated By: Sy Le MD Signed By: <Electronically signed by Sy Le MD in OV> 04/13/22 1416 DD/ 1327 TD/TT:? Track Repairer Helper:?SK Discharge Plan Discharge Clinical Impression: Cellulitis Patient Disposition: Admitted As Inpatient
[2022-04-13 11:57] VITALS: BP 137/63; PULSE 84; RESP 18; TEMP 37; O2SAT 97
[2022-04-13 13:20] LABS: Alanine Aminotransferase 13 U/L (0-31); Albumin Level 3.6 g/dL (3.5-5.0); Alkaline Phosphatase 88 U/L (39-117); Anion Gap 16 (12-20); Aspartate Amino Transferase 15 U/L (5-31); Bilirubin Total 0.2 mg/dL (0.0-1.0); Blood Urea Nitrogen 26 mg/dL (9-16); Calcium 9.1 mg/dL (8.4-10.2); Carbon Dioxide 21 mmol/L (22-29); Chloride 107 mmol/L (96-108); Creatinine Clr Calc Pharmacy 41.8; Estimated Glomerular Filt Rate 52; Glucose Random 118 mg/dL (60-115); Potassium 4.8 mmol/L (3.3-5.1); Sodium 139 mmol/L (135-145); Total Protein 6.8 g/dL (6.5-8.0)
[2022-04-13 14:21] LABS: Basophils Absolute Auto 0.1 X10*3/uL (0.0-0.2); Basophils Percent Auto 0.6 % (0-2); Eosinophils Absolute Auto 0.3 X10*3/uL (0.0-0.4); Eosinophils Percent Auto 2.6 % (0-4); Hematocrit 31.4 % (37.0-47.0); Hemoglobin 10.2 g/dl (12.0-16.0); Imm Gran Abs Auto 0.07 X10*3/uL (0.00-0.03); Imm Gran Pct Auto 0.7 % (0.0-0.4); Lymphocytes Absolute Auto 2.3 X10*3/uL (1.2-4.9); Lymphocytes Percent Auto 23.3 % (20-40); Mean Corpuscular HGB Conc 32.5 g/dl (31.0-35.0); Mean Corpuscular Hemoglobin 29.7 pg (27.0-33.0); Mean Corpuscular Volume 91.3 fL (80.0-98.0); Mean Platelet Volume 9.6 fL (9.4-12.3); Monocytes Absolute Auto 0.7 X10*3/uL (0.1-1.2); Monocytes Percent Auto 7.4 % (2-11); Neutrophils Absolute Auto 6.5 x10*3/uL (2.0-8.3); Neutrophils Percent Auto 65.4 % (45-73); Platelet Count 419 X10*3/uL (160-400); Red Blood Count 3.44 X10*6/uL (4.20-5.50); Red Cell Distribution Width 13.4 % (11.0-16.0); White Blood Count 9.9 X10*3/uL (4.8-10.8)
[2022-04-13 14:22] LABS: MANUAL DIFF FLAG NO
[2022-04-13 14:48] VITALS: BP 155/69; PULSE 81; RESP 18; TEMP 36.7; O2SAT 96
--- NOTE | 2022-04-13 16:16 | PM.HPGS ---
History of Present Illness History of Present Illness Date of Service: 04/13/22 Chief complaint: cellulitis Narrative: Beatriz Aguayo is a 71 year old female with a history of lobular breast cancer status post RIGHT MRM & simple LEFT mastectomy. She originally had right lump & SLN bx with RT She has a prior history of atypical ductal hyperplasia the by lumpectomy in the left breast in 2015.? She also underwent lumpectomy in the right breast for a right breast carcinoma in 2003.? 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 At the patient's request she underwent bilateral mastectomy on 02/19/2022. The patient is accompanied by her daughter and presents again with redness on her bilateral mastectomy sites with fluid collections that were evaluated earlier this week/late last week and are unchanged. Patient reports worsening pain. 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 Mother Heart disease Hypertension Colon cancer Maternal Grandmother Esophageal cancer Daughter Breast cancer Brother Colon cancer Sister Breast cancer Sister Breast cancer, Onset Age: 60 Surgical History Surgical History History of bilateral mastectomy (02/19/22) History of colonoscopy History of esophagogastroduodenoscopy (EGD) History of lumbar fusion History of lumpectomy of both breasts History of surgery Hx of appendectomy Hx of blepharoplasty Hx of cholecystectomy S/P ANDRÉS-BSO (total abdominal hysterectomy and bilateral salpingo-oophorectomy) Social History Social History Household Members: None Housing: Apartment Are you a primary point of care technician to a significant other at home: No Do you presently have visiting nurse or other home services: Yes Alcohol intake: unknown Patient Tobacco Use Status: Never used Tobacco e-Cigarette/Vaping Use: Never Used Second Hand Smoke Exposure: No Advance Directives: Yes Advance Directives on File: Yes Advance Directives Date on File: 09/26/21 service: No Current occupational status: disabled 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) Hearing needs: No Vision needs: Yes Meds Allergies Allergy/AdvReac Type Severity Reaction Status Date / Time No Known Allergies Allergy Verified 04/12/22 11:40 [No Known Allergies*] Active Medications: Current Medications Pharmacy Consult (Consult Rx Perform Med Rec) 1 each MISCELLANE ONCE PRN PRN Reason: Consult order Home Medications Medication Instructions Recorded Confirmed Last Taken Type tramadol 50 mg tablet 1 tab PO TID PRN Pain 03/30/22 04/12/22 Unknown History Physical Exam Vital Signs: Vital Signs: Last Vital Signs Temp 98.1 F 04/13/22 14:48 Pulse 81 04/13/22 14:48 Resp 18 04/13/22 14:48 BP 155/69 H 04/13/22 14:48 Pulse Ox 96 04/13/22 14:48 O2 Del Method 04/13/22 14:48 BMI result Body Mass Index 38.0 On exam, the patient is nontoxic PERRLA, EOMI Bilateral mastectomy noted with erythema and reported tenderness. No necrosis or crepitance is present Abdomen is soft and nontender Results Results Labs: Short CBC 04/13/22 Range/Units 14:09 WBC 9.9 (4.8-10.8) X10*3/uL Hgb 10.2 L (12.0-16.0) g/dl Hct 31.4 L (37.0-47.0) % Plt Count 419 H (160-400) X10*3/uL BMP 04/13/22 12:56 Sodium 139 Potassium 4.8 Chloride 107 Carbon Dioxide 21 L BUN 26 H Creatinine 1.04 Calcium 9.1 Liver Function 04/13/22 Range/Units 12:56 Total Bilirubin 0.2 (0.0-1.0) mg/dL AST 15 (5-31) U/L ALT 13 (0-31) U/L Alkaline Phosphatase 88 (39-117) U/L Albumin 3.6 (3.5-5.0) g/dL Additional studies: Bilateral chest ultrasound reports are reviewed. There is minimal change from prior studies. Assessment and Plan (1) Cellulitis: Status: Acute (2) S/P bilateral mastectomy: Status: Acute (3) Lobular carcinoma in situ: Status: Acute (4) Cellulitis of chest wall: Status: Acute (5) Dementia: Status: Acute (6) HTN (hypertension): Qualifiers: Hypertension type: essential hypertension Qualified Code(s): I10 - Essential (primary) hypertension Status: Acute (7) DMII (diabetes mellitus, type 2): Status: Acute Plan Will admit and resume IV antibiotics, Vanc & Zosyn through the weekend. Will communicate with Dr. Malik regarding definitive management when he is available. Consult hospitalist for help with medical management and diabetes The plan was communicated with the patient's daughter who was at the bedside. She inquired about a PICC and home antibiotics which I explained would be addressed on Saturday. Quality Stroke Does the patient have a stroke diagnosis?: No VTE Prior VTE?: No VTE Risk Level:: Medical - moderate - high VTE Device Contraindication: N/A - Device Ordered VTE Drug Contraindication: N/A - Med Ordered Procedures Date of Service Date of Service: 04/13/22
[2022-04-13] MEDS: Piperacillin Sodium/Tazobactam 3.375 GM in 0.9 % Sodium Chloride 50 ML IV ×2 (16:49→23:12)
[2022-04-13] MEDS: oxyCODONE HCl Immed Release 5 MG TABLET 10 MG PO (16:58)
[2022-04-13] MEDS: Acetaminophen 325 MG TABLET 650 MG PO (16:58)
--- NOTE | 2022-04-13 17:10 | PHA.MEDREC ---
Pharmacy Consult ? Medication Reconciliation Pharmacy has completed the medication reconciliation. Pt just starting remeron has not taken dose
[2022-04-13 17:12] LABS: COVID-19 Test Negative (Negative)
[2022-04-13] MEDS: 0.9 % Sodium Chloride 500 ML 50 ML IV (17:22)
--- NOTE | 2022-04-13 17:34 | PHA.PROG ---
Admission Date/Time: April 13, 2022 16:34 Indication: skin Weight in k.832 kg Adjusted body weight in Kg: [place] body weight in Kg: Obesity Dosing Indication % IBW: obese model Serum Creatinine - Last 168 Hours 04/13/22 12:56 Creatinine 1.04 Estimated CrCl and GFR - Last 168 Hours 04/13/22 12:56 Estim Creat Clear Calc 41.8 Estimated GFR 52 Vancomycin Loading Dose: 2000mg X 1 Current Vancomycin Dosing Regimen: 750 mg Q24H Vancomycin Monitoring using AUC goal of 400 - 600 range with trough as surrogate marker: 455mg/L Date and Time for next Vancomycin Level to be drawn: 04/16/22 @1600 Pharmacist Comments on Vancomycin Plan: using obese model, will continue to monitor renal function and adjust appropriately Vancomycin dosing will take advantage of [employer] as a clinical decision support tool that uses Bayesian modeling to calculate individual patient's pharmacokinetic parameters and forecast the patient's drug concentration time course with the target goal AUC 24 range of 400 - 600 mg/L/hr.
--- NOTE | 2022-04-13 17:44 | PM.IMCN ---
History of Present Illness Data of Consult Service Date: 04/13/22 Requesting physician: David Conde Primary Care Provider: Milan Mcgraw PA-C HPI Reason for consult: medical management this is a 71-year-old Salvadorean-speaking female with history of breast cancer status post recent bilateral mastectomy who presents to the emergency department with increasing redness and pain to bilateral mastectomy site. History of was obtained with the assistance of her daughter at the bedside translating. She was recently admitted to the hospital on the surgical service for bilateral breast cellulitis and seroma and was treated with IV antibiotics. She was discharged home on the with oral antibiotics. Since her discharge she has had fever and increasing pain, and redness. she was seen by Dr. Malik in the office on April 10 at which time she was referred for aspiration for any residual pockets of fluid. She was seen by her PCP on April 12 and that at that time she was referred to ID for possible outpatient PICC line and IV antibiotics. Today she presents with increasing pain. she had ultrasound of bilateral breasts showing complex fluid collection or phlegmon versus postsurgical changes of the left breast and heterogeneous echogenicity structure in the upper inner quadrant which may represent complex fluid collection versus postoperative change in the right breast. She was admitted to the surgical service for further management. She was started on IV antibiotics. The hospitalist service was consulted for assistance in management of chronic medical conditions. 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 Mother Heart disease Hypertension Colon cancer Maternal Grandmother Esophageal cancer Daughter Breast cancer Brother Colon cancer Sister Breast cancer Sister Breast cancer, Onset Age: 60 Surgical History History of bilateral mastectomy (02/19/22) History of colonoscopy History of esophagogastroduodenoscopy (EGD) History of lumbar fusion History of lumpectomy of both breasts History of surgery Hx of appendectomy Hx of blepharoplasty Hx of cholecystectomy S/P ANDRÉS-BSO (total abdominal hysterectomy and bilateral salpingo-oophorectomy) Social History Household Members: None Housing: Apartment Are you a primary health care coordinator to a significant other at home: No Do you presently have visiting nurse or other home services: Yes Alcohol intake: unknown Patient Tobacco Use Status: Never used Tobacco e-Cigarette/Vaping Use: Never Used Second Hand Smoke Exposure: No Advance Directives: Yes Advance Directives on File: Yes Advance Directives Date on File: 09/26/21 service: No Current occupational status: disabled 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) Hearing needs: No Vision needs: Yes Meds Allergies Allergy/AdvReac Type Severity Reaction Status Date / Time No Known Allergies Allergy Verified 04/12/22 11:40 [No Known Allergies*] Active Medications: Current Medications Docusate Sodium (Docusate Sodium 100 Mg Capsule) 100 mg PO BID [facility] Sodium Chloride (Ns) 500 mls @ 50 mls/hr IV .Q10H [facility] Stop: 04/14/22 02:29 Last Admin: 04/13/22 17:22 Dose: 50 mls/hr Sodium Chloride (Sodium Chloride 0.45 %) 1,000 mls @ 100 mls/hr IVCONT .Q10H [facility] Last Admin: 04/13/22 17:11 Dose: Not Given Piperacillin Sod/Tazobactam (Sod 3.375 gm/ Sodium Chloride) 50 mls @ 100 mls/hr IV Q6H [facility] Last Admin: 04/13/22 17:11 Dose: Not Given Vancomycin HCl (Vancomycin/Ns) 2,000 mg in 520 mls @ 260 mls/hr IV ONCE ONE Stop: 04/13/22 19:59 Vancomycin HCl 750 mg/ Sodium (Chloride) 265 mls @ 265 mls/hr IV Q24H [facility] Pharmacy Consult (Consult Rx Perform Med Rec) 1 each MISCELLANE ONCE PRN PRN Reason: Consult order Pharmacy Consult (Consult Rx Vancomycin Dosing) 1 each MISCELLANE DAILY PRN PRN Reason: Consult order Sodium Chloride (0.9 % Sodium Chloride Flush 3 Ml Syringe) 3 ml IVFLUSH QSHIFT [facility] Home Medications Medication Instructions Recorded Confirmed Last Taken Type atorvastatin 20 mg tablet 20 mg PO BEDTIME 04/13/22 04/13/22 04/12/22 History oxycodone 5 mg tablet 1 tab PO Q8H PRN Pain (Scale Score 04/13/22 04/13/22 04/13/22 History 4-6) trazodone 100 mg tablet 200 mg PO BEDTIME 04/13/22 04/13/22 04/12/22 History Physical Exam Vital Signs and Narrative: Vital Signs: Last Vital Signs Temp 98.1 F 04/13/22 14:48 Pulse 81 04/13/22 14:48 Resp 18 04/13/22 14:48 BP 155/69 H 04/13/22 14:48 Pulse Ox 96 04/13/22 14:48 O2 Del Method 04/13/22 14:48 BMI result Body Mass Index 38.0 Const: General: cooperative, comfortable, alert and awake Nutritional Appearance: overweight Orientation/consciousness: patient oriented x3 Resp: Effort & Inspection: normal respiratory effort and able to speak in complete sentences Auscultation: clear to auscultation bilaterally Cardio: Rhythm: regular rhythm Heart sounds: S1 normal heart sound present and S2 normal heart sound present GI: Inspection: No distended Palpation (GI): Soft to palpation and nontender Skin: Other: b/l mastectomy sies with erythema, tenderness; no areas of fluctuance or drainage Neuro: Other: grossly nonfocal General: patient oriented x3 Extrem: Other: trace pedal edema Results Labs CBC and Chem 7: 04/13/22 14:09 04/13/22 12:56 Labs: Laboratory Results - last 24 hr 04/13/22 04/13/22 04/13/22 12:56 14:09 16:41 MCV 91.3 MCH 29.7 MCHC 32.5 RDW 13.4 Plt Count 419 H MPV 9.6 Immature Gran % (Auto) 0.7 H Neut % (Auto) 65.4 Lymph % (Auto) 23.3 [place] % (Auto) 7.4 Eos % (Auto) 2.6 Baso % (Auto) 0.6 Lymph # (Auto) 2.3 [place] # (Auto) 0.7 Eos # (Auto) 0.3 Baso # (Auto) 0.1 Abs Immat Gran (auto) 0.07 H Absolute Neuts (auto) 6.5 Absolute Nucleated RBC 0.000 Nucleated RBC % (auto) 0.0 Anion Gap 16 Estim Creat Clear Calc 41.8 Estimated GFR 52 Random Glucose 118 H Lactic Acid Calcium 9.1 Total Bilirubin 0.2 AST 15 ALT 13 Alkaline Phosphatase 88 Total Protein 6.8 Albumin 3.6 COVID-19 ([facility]) Negative COVID-19 Clin Com See Note 04/13/22 16:41 MCV MCH MCHC RDW Plt Count MPV Immature Gran % (Auto) Neut % (Auto) Lymph % (Auto) [place] % (Auto) Eos % (Auto) Baso % (Auto) Lymph # (Auto) [place] # (Auto) Eos # (Auto) Baso # (Auto) Abs Immat Gran (auto) Absolute Neuts (auto) Absolute Nucleated RBC Nucleated RBC % (auto) Anion Gap Estim Creat Clear Calc Estimated GFR Random Glucose Lactic Acid 1.0 Calcium Total Bilirubin AST ALT Alkaline Phosphatase Total Protein Albumin COVID-19 ([facility]) COVID-19 Clin Com Imaging Radiologist's Impressions: Impressions Breast Ultrasound 04/13/22 13:27 IMPRESSION: Heterogeneous echogenicity structure in the upper inner quadrant which may represent complex fluid collection versus postoperative change. ASSESSMENT: BI-RADS 2: Benign RECOMMENDATION: Clinical evaluation Breast Ultrasound 04/13/22 13:37 IMPRESSION: Complex fluid collection or phlegmon/postsurgical change within the upper outer quadrant of the left breast. ASSESSMENT: BI-RADS 2: Benign RECOMMENDATION: Clinical evaluation Assessment and Plan (1) Cellulitis: Status: Acute Plan This is a 71-year-old Salvadorean-speaking female with history of breast cancer status post bilateral mastectomy here with recurrent cellulitis of bilateral breasts HLD continue statin HTN continue amlodipine, metoprolol DM pt denies DM. chart indicates diet controlled DM can follow POCs and if sugars consistently elevated will add low-dose sliding scale cellulitis b/l breasts management per surgery recommend to follow renal function while on vanco Thank you for allowing us to participate in the care of this patient. we will follow along with you
[2022-04-13 19:42] VITALS: BP 125/60; PULSE 72; RESP 18; TEMP 36.6; O2SAT 97
--- NOTE | 2022-04-13 19:54 | PC.NURSE ---
Report given to RN for pt. transfer to room 367
[2022-04-13] MEDS: traZODone HCL 100 MG TABLET 200 MG PO (21:01)
[2022-04-13] MEDS: Gabapentin 400 MG CAPSULE 800 MG PO (21:01)
[2022-04-13] MEDS: Metoprolol Tartrate 50 MG TABLET PO (21:01)
[2022-04-13] MEDS: Amitriptyline HCl 10 MG TABLET PO (21:01)
[2022-04-13] MEDS: Atorvastatin Calcium 20 MG TABLET PO (21:01)
[2022-04-13] MEDS: Mirtazapine 15 MG TABLET PO (21:01)
[2022-04-13] MEDS: Docusate Sodium 100 MG CAPSULE PO (21:01)
[2022-04-13 23:26] VITALS: BP 119/72; PULSE 65; RESP 17; TEMP 36.3; O2SAT 93
[2022-04-14 03:21] VITALS: BP 152/70; PULSE 67; RESP 17; TEMP 36; O2SAT 96
[2022-04-14] MEDS: Piperacillin Sodium/Tazobactam 3.375 GM in 0.9 % Sodium Chloride 50 ML IV ×4 (04:03→21:52)
[2022-04-14] MEDS: Sodium Chloride 0.45 % 1,000 ML 100 ML IVCONT (04:06)
[2022-04-14] MEDS: Omeprazole 20 MG CAPSULE.DR PO (06:25)
[2022-04-14 06:33] LABS: MANUAL DIFF FLAG NO
[2022-04-14 06:43] LABS: Basophils Percent Auto 0.5 % (0-2); Eosinophils Absolute Auto 0.4 X10*3/uL (0.0-0.4); Eosinophils Percent Auto 4.7 % (0-4); Hematocrit 33.2 % (37.0-47.0); Hemoglobin 10.4 g/dl (12.0-16.0); Imm Gran Abs Auto 0.03 X10*3/uL (0.00-0.03); Imm Gran Pct Auto 0.4 % (0.0-0.4); Lymphocytes Absolute Auto 1.2 X10*3/uL (1.2-4.9); Lymphocytes Percent Auto 14.1 % (20-40); Mean Corpuscular HGB Conc 31.3 g/dl (31.0-35.0); Mean Corpuscular Hemoglobin 29.7 pg (27.0-33.0); Mean Corpuscular Volume 94.9 fL (80.0-98.0); Mean Platelet Volume 9.6 fL (9.4-12.3); Monocytes Absolute Auto 0.7 X10*3/uL (0.1-1.2); Monocytes Percent Auto 8.6 % (2-11); Neutrophils Absolute Auto 5.9 x10*3/uL (2.0-8.3); Neutrophils Percent Auto 71.7 % (45-73); Platelet Count 412 X10*3/uL (160-400); Red Cell Distribution Width 13.8 % (11.0-16.0); White Blood Count 8.2 X10*3/uL (4.8-10.8)
[2022-04-14 07:29] VITALS: BP 158/72; PULSE 72; RESP 14; TEMP 36.7; O2SAT 99
[2022-04-14] MEDS: Metoprolol Tartrate 50 MG TABLET PO ×2 (08:00→19:41)
[2022-04-14] MEDS: oxyCODONE HCl Immed Release 5 MG TABLET PO ×2 (08:00→15:44)
[2022-04-14] MEDS: Docusate Sodium 100 MG CAPSULE PO ×2 (08:00→19:41)
[2022-04-14] MEDS: Gabapentin 400 MG CAPSULE 800 MG PO ×2 (08:00→19:42)
[2022-04-14] MEDS: amLODIPine Besylate 10 MG TABLET PO (08:01)
[2022-04-14] MEDS: Morphine Sulfate 2 MG/ML CARTRIDGE IVPUSH ×2 (09:24→16:48)
[2022-04-14 09:32] LABS: Anion Gap 14 (12-20); Blood Urea Nitrogen 17 mg/dL (9-16); Calcium 8.7 mg/dL (8.4-10.2); Carbon Dioxide 24 mmol/L (22-29); Chloride 107 mmol/L (96-108); Creatinine Clr Calc Pharmacy 47.3; Estimated Glomerular Filt Rate 60; Glucose Random 118 mg/dL (60-115); Potassium 4.5 mmol/L (3.3-5.1); Sodium 140 mmol/L (135-145)
--- NOTE | 2022-04-14 11:05 | PM.PNGS ---
Subjective Subjective Date of Service: 04/14/22 Patient reports: no new complaints and still having pain Interval history: The patient is seen with the help of the daughter. The patient and daughter refused a medical assembly this morning. The patient reports she is about the same and definitely not worsen otherwise denies any chest pain, difficulty breathing or shortness of breath. Physical Exam Vital Signs: Vital Signs: Last Vital Signs Temp 98.1 F 04/14/22 07:29 Pulse 72 04/14/22 07:29 Resp 14 04/14/22 07:29 BP 158/72 H 04/14/22 07:29 Pulse Ox 99 04/14/22 07:29 O2 Del Method 04/14/22 07:29 BMI result Body Mass Index 38.0 The erythema on the upper chest/upper mastectomy flaps remains with minimal tenderness. There is no fluctuance or evidence of an abscess. Patient is otherwise nontoxic Objective Data Active Medications Amitriptyline HCl (Amitriptyline Hcl 10 Mg Tablet) 10 mg PO BEDTIME [facility] Last Admin: 04/13/22 21:01 Dose: 10 mg Documented By: SWETA Amlodipine Besylate (Amlodipine Besylate 10 Mg Tablet) 10 mg PO DAILY [facility]; Protocol Last Admin: 04/14/22 08:01 Dose: 10 mg Documented By: DOUGLAS Atorvastatin Calcium (Atorvastatin Calcium 20 Mg Tablet) 20 mg PO BEDTIME [facility] Last Admin: 04/13/22 21:01 Dose: 20 mg Documented By: SWETA Dextrose (Dextrose 50 % 25 Gm/50 Ml Syringe) 25 gm IVPUSH Q15M PRN; Protocol PRN Reason: per Hypoglycemia Standing Ord. Docusate Sodium (Docusate Sodium 100 Mg Capsule) 100 mg PO BID [facility] Last Admin: 04/14/22 08:00 Dose: 100 mg Documented By: DOUGLAS Gabapentin (Gabapentin 400 Mg Capsule) 800 mg PO BID [facility] Last Admin: 04/14/22 08:00 Dose: 800 mg Documented By: DOUGLAS Glucose (Glucose Gel 15 Gm Gel..Gram.) 15 gm PO Q15M PRN; Protocol PRN Reason: per Hypoglycemia Standing Ord. Sodium Chloride (Sodium Chloride 0.45 %) 1,000 mls @ 100 mls/hr IVCONT .Q10H [facility] Last Admin: 04/14/22 04:06 Dose: 100 mls/hr Documented By: SWETA Piperacillin Sod/Tazobactam (Sod 3.375 gm/ Sodium Chloride) 50 mls @ 100 mls/hr IV Q6H [facility] Last Admin: 04/14/22 10:46 Dose: 100 mls/hr Documented By: DOUGLAS Vancomycin HCl 750 mg/ Sodium (Chloride) 265 mls @ 265 mls/hr IV Q24H [facility] Metoprolol Tartrate (Metoprolol Tartrate 50 Mg Tablet) 50 mg PO BID [facility]; Protocol Last Admin: 04/14/22 08:00 Dose: 50 mg Documented By: DOUGLAS Mirtazapine (Mirtazapine 15 Mg Tablet) 15 mg PO BEDTIME [facility] Last Admin: 04/13/22 21:01 Dose: 15 mg Documented By: SWETA Morphine Sulfate (Morphine Sulfate 2 Mg/Ml Cartridge) 2 mg IVPUSH Q4H PRN; Protocol PRN Reason: Pain, Severe (Pain Scale 7-10) Last Admin: 04/14/22 09:24 Dose: 2 mg Documented By: JANE Omeprazole (Omeprazole 20 Mg Capsule.Dr) 20 mg PO DAILY@0630 [facility] Last Admin: 04/14/22 06:25 Dose: 20 mg Documented By: SWETA Oxycodone HCl (Oxycodone Hcl Immed Release 5 Mg Tablet) 5 mg PO Q8H PRN PRN Reason: Pain (Scale Score 4-6) Last Admin: 04/14/22 08:00 Dose: 5 mg Documented By: DOUGLAS Pharmacy Consult (Consult Rx Perform Med Rec) 1 each MISCELLANE ONCE PRN PRN Reason: Consult order Pharmacy Consult (Consult Rx Vancomycin Dosing) 1 each MISCELLANE DAILY PRN PRN Reason: Consult order Sodium Chloride (0.9 % Sodium Chloride Flush 3 Ml Syringe) 3 ml IVFLUSH QSHIFT [facility] Last Admin: 04/14/22 08:01 Dose: Not Given Documented By: DOUGLAS Non-Admin Reason: IV Running Trazodone HCl (Trazodone Hcl 100 Mg Tablet) 200 mg PO BEDTIME [facility] Last Admin: 04/13/22 21:01 Dose: 200 mg Documented By: SWETA Labs CBC & Chem 7: 04/14/22 06:02 04/14/22 08:48 Labs: Laboratory Results - last 24 hr 04/13/22 04/13/22 04/13/22 12:56 14:09 16:41 MCV 91.3 MCH 29.7 MCHC 32.5 RDW 13.4 Plt Count 419 H MPV 9.6 Immature Gran % (Auto) 0.7 H Neut % (Auto) 65.4 Lymph % (Auto) 23.3 [place] % (Auto) 7.4 Eos % (Auto) 2.6 Baso % (Auto) 0.6 Lymph # (Auto) 2.3 [place] # (Auto) 0.7 Eos # (Auto) 0.3 Baso # (Auto) 0.1 Abs Immat Gran (auto) 0.07 H Absolute Neuts (auto) 6.5 Absolute Nucleated RBC 0.000 Nucleated RBC % (auto) 0.0 Anion Gap 16 Estim Creat Clear Calc 41.8 Estimated GFR 52 Random Glucose 118 H Lactic Acid Calcium 9.1 Total Bilirubin 0.2 AST 15 ALT 13 Alkaline Phosphatase 88 Total Protein 6.8 Albumin 3.6 COVID-19 ([facility]) Negative COVID-19 Clin Com See Note 04/13/22 04/14/22 04/14/22 16:41 06:02 08:48 MCV 94.9 MCH 29.7 MCHC 31.3 RDW 13.8 Plt Count 412 H MPV 9.6 Immature Gran % (Auto) 0.4 Neut % (Auto) 71.7 Lymph % (Auto) 14.1 L [place] % (Auto) 8.6 Eos % (Auto) 4.7 H Baso % (Auto) 0.5 Lymph # (Auto) 1.2 [place] # (Auto) 0.7 Eos # (Auto) 0.4 Baso # (Auto) 0.0 Abs Immat Gran (auto) 0.03 Absolute Neuts (auto) 5.9 Absolute Nucleated RBC 0.000 Nucleated RBC % (auto) 0.0 Anion Gap 14 Estim Creat Clear Calc 47.3 Estimated GFR 60 Random Glucose 118 H Lactic Acid 1.0 Calcium 8.7 Total Bilirubin AST ALT Alkaline Phosphatase Total Protein Albumin COVID-19 ([facility]) COVID-[place] 360 Clin Com Procedures Date of Service Date of Service: 04/14/22 Progress Note: A&P Assessment and plan (1) Cellulitis: Status: Acute (2) S/P bilateral mastectomy: Status: Acute (3) Lobular carcinoma in situ: Status: Acute (4) Seroma: Status: Acute (5) Cellulitis of chest wall: Status: Acute (6) Dementia: Status: Acute Plan Continue present management. Check morning labs. Time Spent With Patient Time: Total time spent is greater than 50% in coordination of care (as documented) at patient's floor/unit and/or counseling patient: Quality Stroke Does the patient have a stroke diagnosis?: No VTE Prior VTE?: No VTE Risk Level:: Medical - moderate - high VTE Device Contraindication: N/A - Device Ordered VTE Drug Contraindication: N/A - Med Ordered
[2022-04-14 11:42] VITALS: BP 140/65; PULSE 73; RESP 16; TEMP 36.4; O2SAT 95
--- NOTE | 2022-04-14 12:12 | HO.PM.IMPN ---
Subjective Subjective Date of Service: 04/14/22 Interval History: seen and examined this morning follow up for medical consultation no overnight events patient reporting pain at b/l mastectomy sites denies fever or chills Review of Systems Review of Systems: Yes all other systems are reviewed and are negative Constitutional Constitutional: Denies chills and Denies fever(s) Cardiovascular Cardiovascular: Denies chest pain, Denies palpitations and Denies dyspnea Respiratory Respiratory: Denies cough and Denies dyspnea Gastrointestinal Gastrointestinal: Denies abdominal pain, Denies diarrhea and Denies nausea Endocrine Endocrine: Denies palpitations Physical Exam Vital Signs: Vital Signs: Last Vital Signs Temp 97.5 F 04/14/22 11:42 Pulse 73 04/14/22 11:42 Resp 16 04/14/22 11:42 BP 140/65 H 04/14/22 11:42 Pulse Ox 95 04/14/22 11:42 O2 Del Method 04/14/22 11:42 BMI result Body Mass Index 38.0 Const: General: cooperative, no acute distress, alert and awake Nutritional Appearance: overweight Resp: Effort & Inspection: normal respiratory effort and able to speak in complete sentences Auscultation: clear to auscultation bilaterally Cardio: Rate: regular rate Heart sounds: S1 normal heart sound present and S2 normal heart sound present GI: Inspection: No distended Palpation (GI): Soft to palpation and nontender Skin: Other: some erythema to b/l mastectomy sites. no fluctuance, no drainage Extrem: Other: trace pedal edema Objective Data Active Medications Amitriptyline HCl (Amitriptyline Hcl 10 Mg Tablet) 10 mg PO BEDTIME [facility] Last Admin: 04/13/22 21:01 Dose: 10 mg Documented By: SWETA Amlodipine Besylate (Amlodipine Besylate 10 Mg Tablet) 10 mg PO DAILY [facility]; Protocol Last Admin: 04/14/22 08:01 Dose: 10 mg Documented By: DOUGLAS Atorvastatin Calcium (Atorvastatin Calcium 20 Mg Tablet) 20 mg PO BEDTIME [facility] Last Admin: 04/13/22 21:01 Dose: 20 mg Documented By: SWETA Dextrose (Dextrose 50 % 25 Gm/50 Ml Syringe) 25 gm IVPUSH Q15M PRN; Protocol PRN Reason: per Hypoglycemia Standing Ord. Docusate Sodium (Docusate Sodium 100 Mg Capsule) 100 mg PO BID [facility] Last Admin: 04/14/22 08:00 Dose: 100 mg Documented By: DOUGLAS Gabapentin (Gabapentin 400 Mg Capsule) 800 mg PO BID [facility] Last Admin: 04/14/22 08:00 Dose: 800 mg Documented By: DOUGLAS Glucose (Glucose Gel 15 Gm Gel..Gram.) 15 gm PO Q15M PRN; Protocol PRN Reason: per Hypoglycemia Standing Ord. Sodium Chloride (Sodium Chloride 0.45 %) 1,000 mls @ 100 mls/hr IVCONT .Q10H [facility] Last Admin: 04/14/22 04:06 Dose: 100 mls/hr Documented By: SWETA Piperacillin Sod/Tazobactam (Sod 3.375 gm/ Sodium Chloride) 50 mls @ 100 mls/hr IV Q6H [facility] Last Infusion: 04/14/22 11:31 Dose: 100 mls/hr Documented By: JANE Vancomycin HCl 750 mg/ Sodium (Chloride) 265 mls @ 265 mls/hr IV Q24H [facility] Metoprolol Tartrate (Metoprolol Tartrate 50 Mg Tablet) 50 mg PO BID [facility]; Protocol Last Admin: 04/14/22 08:00 Dose: 50 mg Documented By: DOUGLAS Mirtazapine (Mirtazapine 15 Mg Tablet) 15 mg PO BEDTIME [facility] Last Admin: 04/13/22 21:01 Dose: 15 mg Documented By: SWETA Morphine Sulfate (Morphine Sulfate 2 Mg/Ml Cartridge) 2 mg IVPUSH Q4H PRN; Protocol PRN Reason: Pain, Severe (Pain Scale 7-10) Last Admin: 04/14/22 09:24 Dose: 2 mg Documented By: JANE Omeprazole (Omeprazole 20 Mg Capsule.) 20 mg PO DAILY@0630 [facility] Last Admin: 04/14/22 06:25 Dose: 20 mg Documented By: SWETA Oxycodone HCl (Oxycodone Hcl Immed Release 5 Mg Tablet) 5 mg PO Q8H PRN PRN Reason: Pain (Scale Score 4-6) Last Admin: 04/14/22 08:00 Dose: 5 mg Documented By: DOUGLAS Pharmacy Consult (Consult Rx Perform Med Rec) 1 each MISCELLANE ONCE PRN PRN Reason: Consult order Pharmacy Consult (Consult Rx Vancomycin Dosing) 1 each MISCELLANE DAILY PRN PRN Reason: Consult order Sodium Chloride (0.9 % Sodium Chloride Flush 3 Ml Syringe) 3 ml IVFLUSH QSHIFT [facility] Last Admin: 04/14/22 08:01 Dose: Not Given Documented By: DOUGLAS Non-Admin Reason: IV Running Trazodone HCl (Trazodone Hcl 100 Mg Tablet) 200 mg PO BEDTIME [facility] Last Admin: 04/13/22 21:01 Dose: 200 mg Documented By: SWETA Labs CBC & Chem 7: 04/14/22 06:02 04/14/22 08:48 Labs: Laboratory Results - last 24 hr 04/13/22 04/13/22 04/13/22 12:56 14:09 16:41 MCV 91.3 MCH 29.7 MCHC 32.5 RDW 13.4 Plt Count 419 H MPV 9.6 Immature Gran % (Auto) 0.7 H Neut % (Auto) 65.4 Lymph % (Auto) 23.3 [place] % (Auto) 7.4 Eos % (Auto) 2.6 Baso % (Auto) 0.6 Lymph # (Auto) 2.3 [place] # (Auto) 0.7 Eos # (Auto) 0.3 Baso # (Auto) 0.1 Abs Immat Gran (auto) 0.07 H Absolute Neuts (auto) 6.5 Absolute Nucleated RBC 0.000 Nucleated RBC % (auto) 0.0 Anion Gap 16 Estim Creat Clear Calc 41.8 Estimated GFR 52 Random Glucose 118 H Lactic Acid Calcium 9.1 Total Bilirubin 0.2 AST 15 ALT 13 Alkaline Phosphatase 88 Total Protein 6.8 Albumin 3.6 COVID-19 ([facility]) Negative COVID-19 Clin Com See Note 04/13/22 04/14/22 04/14/22 16:41 06:02 08:48 MCV 94.9 MCH 29.7 MCHC 31.3 RDW 13.8 Plt Count 412 H MPV 9.6 Immature Gran % (Auto) 0.4 Neut % (Auto) 71.7 Lymph % (Auto) 14.1 L [place] % (Auto) 8.6 Eos % (Auto) 4.7 H Baso % (Auto) 0.5 Lymph # (Auto) 1.2 [place] # (Auto) 0.7 Eos # (Auto) 0.4 Baso # (Auto) 0.0 Abs Immat Gran (auto) 0.03 Absolute Neuts (auto) 5.9 Absolute Nucleated RBC 0.000 Nucleated RBC % (auto) 0.0 Anion Gap 14 Estim Creat Clear Calc 47.3 Estimated GFR 60 Random Glucose 118 H Lactic Acid 1.0 Calcium 8.7 Total Bilirubin AST ALT Alkaline Phosphatase Total Protein Albumin COVID-19 ([facility]) COVID-19 Clin Com Assessment and Plan (1) Cellulitis: Status: Acute (2) S/P bilateral mastectomy: Status: Acute Plan This is a 71-year-old Jordanian-speaking female with history of breast cancer status post bilateral mastectomy here with recurrent cellulitis of bilateral breasts HLD continue statin HTN BP under adequate control continue amlodipine, metoprolol DM pt and daughter cary h/o DM. 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 we will follow along with you Quality Stroke Does the patient have a stroke diagnosis?: No VTE Prior VTE?: No VTE Risk Level:: Medical - moderate - high VTE Device Contraindication: N/A - Device Ordered VTE Drug Contraindication: N/A - Med Ordered
--- NOTE | 2022-04-14 14:10 | MHC.CM.PN ---
CM MET WITH PT AND DAUGHTER, CAROLYNE, WITH THE ASSISTANCE OF [facility] [place] [facility] PT REPORTS SHE LIVES ALONE AND HAS 30 HOURS OF QUANTITATIVE CONSULTANT SERVICES PER WEEK SHE REPORTS SHE WAS ACTIVE WITH [facility] BUT HAS NOT SEEN THEM FOR SEVERAL DAYS SO IS UNSURE IF THEY ARE STILL COMING PT HAS A CANE AND ROLLATOR HCP ON FILE COVID VAX X 3 PCP: ALOK RIVERA IMM DELIVERED CURRENT DC PLAN IS HOME WITH RESUMPTION OF QUANTITATIVE CONSULTANT AND ?[facility] FAMILY TO TRANSPORT
[2022-04-14] MEDS: 0.9 % Sodium Chloride Flush 3 ML SYRINGE IVFLUSH ×2 (15:37→19:41)
[2022-04-14 15:42] VITALS: BP 140/70; PULSE 81; RESP 18; TEMP 37.4; O2SAT 97
[2022-04-14 15:56] LABS: Glucose, Whole Blood 110 mg/dL (60-115)
[2022-04-14] MEDS: vancomycin HCL 750 MG in 0.9 % Sodium Chloride 250 ML 265 MG IV (17:51)
[2022-04-14 18:54] VITALS: BP 147/68; PULSE 74; RESP 18; TEMP 36.7; O2SAT 96
--- NOTE | 2022-04-14 19:30 | PC.NURSE ---
Pt is A/O X 2 , confused at times. No apparent distress noted, walked to bathroom with cane with minimal assistance. Daughter at bedside, aware of plan of care.
[2022-04-14] MEDS: Amitriptyline HCl 10 MG TABLET PO (19:41)
[2022-04-14] MEDS: Atorvastatin Calcium 20 MG TABLET PO (19:42)
[2022-04-14] MEDS: traZODone HCL 100 MG TABLET 200 MG PO (19:42)
[2022-04-14] MEDS: Mirtazapine 15 MG TABLET PO (19:42)
[2022-04-14 19:44] LABS: Glucose, Whole Blood 133 mg/dL (60-115)
--- NOTE | 2022-04-14 21:29 | PM.EVENT ---
Event Note Date of Service: 04/14/22 Event Note: pot complaining of poor pain control. not well controlled on oxy or morphine. will give one dose of dilaudid. to discuss pain management with day provider
--- NOTE | 2022-04-14 21:30 | PC.NURSE ---
Patient reported a pain of 10/10 to her bilat mastectomy post opt site,more intense to the left chest. Pt stated oxycodone and morphine not addressing pain effectively and would like hydromorphone as that worked better for her per the pt and daughter. Hospitalist notified, and Hydromorphone ordered. Pt and daughter aware of plan of care.
[2022-04-14] MEDS: HYDROmorphone HCl 1 MG/ML SYRINGE 0.5 MG IVPUSH (21:52)
[2022-04-14 23:15] VITALS: BP 104/52; PULSE 70; RESP 18; TEMP 36.6; O2SAT 91
[2022-04-15 03:22] VITALS: BP 142/78; PULSE 71; RESP 16; TEMP 36.1; O2SAT 96
[2022-04-15] MEDS: Piperacillin Sodium/Tazobactam 3.375 GM in 0.9 % Sodium Chloride 50 ML IV ×4 (05:14→22:14)
[2022-04-15] MEDS: Omeprazole 20 MG CAPSULE.DR PO (05:20)
[2022-04-15 06:49] LABS: Anion Gap 14 (12-20); Blood Urea Nitrogen 20 mg/dL (9-16); Calcium 8.5 mg/dL (8.4-10.2); Carbon Dioxide 25 mmol/L (22-29); Chloride 105 mmol/L (96-108); Creatinine Clr Calc Pharmacy 43.9; Estimated Glomerular Filt Rate 55; Glucose Random 103 mg/dL (60-115); Potassium 4.3 mmol/L (3.3-5.1); Sodium 140 mmol/L (135-145)
[2022-04-15 08:00] VITALS: BP 164/73; PULSE 72; RESP 20; TEMP 36.6; O2SAT 96
[2022-04-15 08:04] LABS: Estimated Average Glucose 123 mg/dL; Hemoglobin A1c % 5.9 %
[2022-04-15] MEDS: Docusate Sodium 100 MG CAPSULE PO ×2 (08:58→21:01)
[2022-04-15] MEDS: Gabapentin 400 MG CAPSULE 800 MG PO ×2 (08:58→21:01)
[2022-04-15] MEDS: Metoprolol Tartrate 50 MG TABLET PO ×2 (08:58→21:02)
[2022-04-15] MEDS: amLODIPine Besylate 10 MG TABLET PO (08:58)
[2022-04-15] MEDS: Morphine Sulfate 2 MG/ML CARTRIDGE IVPUSH (08:59)
[2022-04-15] MEDS: 0.9 % Sodium Chloride Flush 3 ML SYRINGE IVFLUSH ×3 (09:33→21:02)
--- NOTE | 2022-04-15 10:11 | HO.PM.IMPN ---
Subjective Subjective Date of Service: 04/15/22 Interval History: seen and examined this morning follow up for medical consultation history obtained with the assistance of her daughter interpreting reporting increased pain overnight, got an extra dose of pain medication. still uncomfortable this morning denies fever or chills Review of Systems Review of Systems: Yes all other systems are reviewed and are negative Constitutional Constitutional: Denies chills and Denies fever(s) Cardiovascular Cardiovascular: Denies chest pain and Denies palpitations Gastrointestinal Gastrointestinal: Denies abdominal pain, Denies diarrhea, Denies nausea and Denies vomiting Endocrine Endocrine: Denies palpitations Physical Exam Vital Signs: Vital Signs: Last Vital Signs Temp 97.9 F 04/15/22 08:00 Pulse 72 04/15/22 08:00 Resp 20 04/15/22 08:00 BP 164/73 H 04/15/22 08:00 Pulse Ox 96 04/15/22 08:00 O2 Del Method 04/15/22 08:00 BMI result Body Mass Index 38.0 Const: General: cooperative, comfortable, no acute distress, alert and awake Nutritional Appearance: overweight Orientation/consciousness: patient oriented x3 Resp: Effort & Inspection: normal respiratory effort and able to speak in complete sentences Auscultation: clear to auscultation bilaterally Cardio: Rate: regular rate Rhythm: regular rhythm Heart sounds: S1 normal heart sound present and S2 normal heart sound present GI: Inspection: No distended Palpation (GI): Soft to palpation and nontender Skin: Other: erythema to b/l mastectomy sites left side greater then right. warm, tender on left. no fluctuance, no drainage Neuro: Other: grossly nonfocal General: patient oriented x3 Extrem: Other: trace pedal edema Objective Data Active Medications Amitriptyline HCl (Amitriptyline Hcl 10 Mg Tablet) 10 mg PO BEDTIME [facility] Last Admin: 04/14/22 19:41 Dose: 10 mg Documented By: KRISTINA Amlodipine Besylate (Amlodipine Besylate 10 Mg Tablet) 10 mg PO DAILY [facility]; Protocol Last Admin: 04/15/22 08:58 Dose: 10 mg Documented By: JANE Atorvastatin Calcium (Atorvastatin Calcium 20 Mg Tablet) 20 mg PO BEDTIME [facility] Last Admin: 04/14/22 19:42 Dose: 20 mg Documented By: KRISTINA Dextrose (Dextrose 50 % 25 Gm/50 Ml Syringe) 25 gm IVPUSH Q15M PRN; Protocol PRN Reason: per Hypoglycemia Standing Ord. Docusate Sodium (Docusate Sodium 100 Mg Capsule) 100 mg PO BID [facility] Last Admin: 04/15/22 08:58 Dose: 100 mg Documented By: JANE Gabapentin (Gabapentin 400 Mg Capsule) 800 mg PO BID [facility] Last Admin: 04/15/22 08:58 Dose: 800 mg Documented By: JANE Glucose (Glucose Gel 15 Gm Gel..Gram.) 15 gm PO Q15M PRN; Protocol PRN Reason: per Hypoglycemia Standing Ord. Piperacillin Sod/Tazobactam (Sod 3.375 gm/ Sodium Chloride) 50 mls @ 100 mls/hr IV Q6H [facility] Last Infusion: 04/15/22 09:45 Dose: 100 mls/hr Documented By: JANE Vancomycin HCl 750 mg/ Sodium (Chloride) 265 mls @ 265 mls/hr IV Q24H [facility] Last Infusion: 04/14/22 19:14 Dose: 0 mls/hr Documented By: KRISTINA Metoprolol Tartrate (Metoprolol Tartrate 50 Mg Tablet) 50 mg PO BID [facility]; Protocol Last Admin: 04/15/22 08:58 Dose: 50 mg Documented By: JANE Mirtazapine (Mirtazapine 15 Mg Tablet) 15 mg PO BEDTIME [facility] Last Admin: 04/14/22 19:42 Dose: 15 mg Documented By: KRISTINA Morphine Sulfate (Morphine Sulfate 2 Mg/Ml Cartridge) 4 mg IVPUSH Q4H PRN; Protocol PRN Reason: Pain, Severe (Pain Scale 7-10) Omeprazole (Omeprazole 20 Mg Capsule.Dr) 20 mg PO DAILY@0630 [facility] Last Admin: 04/15/22 05:20 Dose: 20 mg Documented By: KRISTINA Oxycodone HCl (Oxycodone Hcl Immed Release 5 Mg Tablet) 5 mg PO Q6H PRN PRN Reason: Pain (Scale Score 4-6) Last Admin: 04/14/22 15:44 Dose: 5 mg Documented By: HAMZAH Pharmacy Consult (Consult Rx Perform Med Rec) 1 each MISCELLANE ONCE PRN PRN Reason: Consult order Pharmacy Consult (Consult Rx Vancomycin Dosing) 1 each MISCELLANE DAILY PRN PRN Reason: Consult order Polyethylene Glycol (Polyethylene Glycol 3350 17 Gm Powd.Pack) 17 gm PO DAILY PRN PRN Reason: Constipation Sodium Chloride (0.9 % Sodium Chloride Flush 3 Ml Syringe) 3 ml IVFLUSH QSHIFT [facility] Last Admin: 04/15/22 09:33 Dose: 3 ml Documented By: JANE Trazodone HCl (Trazodone Hcl 100 Mg Tablet) 200 mg PO BEDTIME [facility] Last Admin: 04/14/22 19:42 Dose: 200 mg Documented By: KRISTINA Labs CBC & Chem 7: 04/14/22 06:02 04/15/22 06:00 Labs: Laboratory Results - last 24 hr 04/14/22 04/14/22 04/15/22 15:51 18:58 06:00 Anion Gap 14 Estim Creat Clear Calc 43.9 Estimated GFR 55 POC Glucose 110 133 H Random Glucose 103 Estimat Average Glucose Hemoglobin A1c % Calcium 8.5 04/15/22 06:00 Anion Gap Estim Creat Clear Calc Estimated GFR POC Glucose Random Glucose Estimat Average Glucose 123 Hemoglobin A1c % 5.9 Calcium Microbiology Microbiology Results: Microbiology 04/13/22 16:41 Blood Culture - Preliminary Blood - Venous No growth after 24 hours. 04/13/22 16:41 Blood Culture - Preliminary Blood - Venous No growth after 24 hours. Assessment and Plan (1) Cellulitis: Status: Acute (2) S/P bilateral mastectomy: Status: Acute Plan This is a 71-year-old Serbian-speaking female with history of breast cancer status post bilateral mastectomy here with recurrent cellulitis of bilateral breasts HLD continue statin HTN some high readings but generally under adequate control continue amlodipine, metoprolol follow BP ?h/o DM pt and daughter deny h/o DM. 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 we will follow along with you Quality Stroke Does the patient have a stroke diagnosis?: No VTE Prior VTE?: No VTE Risk Level:: Medical - moderate - high VTE Device Contraindication: N/A - Device Ordered VTE Drug Contraindication: N/A - Med Ordered
[2022-04-15 11:16] VITALS: BP 126/74; PULSE 66; RESP 20; O2SAT 96
[2022-04-15] MEDS: oxyCODONE HCl Immed Release 5 MG TABLET PO (12:34)
--- NOTE | 2022-04-15 15:31 | PM.PNGS ---
Subjective Subjective Date of Service: 04/15/22 Patient reports: still having pain Interval history: The patient again declined an relationship associate and requested that her daughter be involved in her care. Patient reports she is no better than yesterday and is requesting an increase in her narcotics, although she slept through the night and is reportedly napping at times. She otherwise denies chest pain, difficulty breathing or shortness of breath. I reviewed with the patient and her daughter that the last needle aspirations for seromas showed no evidence of infection, consequently, I would not recommend aggressive operative intervention at this time. Physical Exam Vital Signs: Vital Signs: Last Vital Signs Temp 97.9 F 04/15/22 08:00 Pulse 66 04/15/22 11:16 Resp 20 04/15/22 11:16 BP 126/74 04/15/22 11:16 Pulse Ox 96 04/15/22 11:16 O2 Del Method 04/15/22 11:16 BMI result Body Mass Index 38.0 Exam is unchanged. Both upper and lower flaps appear viable. The persistent pinkness is present and the patient reports some tenderness on palpation. No crepitance or necrosis is present Objective Data Active Medications Amitriptyline HCl (Amitriptyline Hcl 10 Mg Tablet) 10 mg PO BEDTIME [facility] Last Admin: 04/14/22 19:41 Dose: 10 mg Documented By: KRISTINA Amlodipine Besylate (Amlodipine Besylate 10 Mg Tablet) 10 mg PO DAILY [facility]; Protocol Last Admin: 04/15/22 08:58 Dose: 10 mg Documented By: JANE Atorvastatin Calcium (Atorvastatin Calcium 20 Mg Tablet) 20 mg PO BEDTIME [facility] Last Admin: 04/14/22 19:42 Dose: 20 mg Documented By: KRISTINA Dextrose (Dextrose 50 % 25 Gm/50 Ml Syringe) 25 gm IVPUSH Q15M PRN; Protocol PRN Reason: per Hypoglycemia Standing Ord. Docusate Sodium (Docusate Sodium 100 Mg Capsule) 100 mg PO BID [facility] Last Admin: 04/15/22 08:58 Dose: 100 mg Documented By: JANE Gabapentin (Gabapentin 400 Mg Capsule) 800 mg PO BID [facility] Last Admin: 04/15/22 08:58 Dose: 800 mg Documented By: JANE Glucose (Glucose Gel 15 Gm Gel..Gram.) 15 gm PO Q15M PRN; Protocol PRN Reason: per Hypoglycemia Standing Ord. Piperacillin Sod/Tazobactam (Sod 3.375 gm/ Sodium Chloride) 50 mls @ 100 mls/hr IV Q6H [facility] Last Infusion: 04/15/22 09:45 Dose: 100 mls/hr Documented By: JANE Vancomycin HCl 750 mg/ Sodium (Chloride) 265 mls @ 265 mls/hr IV Q24H [facility] Last Infusion: 04/14/22 19:14 Dose: 0 mls/hr Documented By: KRISTINA Metoprolol Tartrate (Metoprolol Tartrate 50 Mg Tablet) 50 mg PO BID [facility]; Protocol Last Admin: 04/15/22 08:58 Dose: 50 mg Documented By: JANE Mirtazapine (Mirtazapine 15 Mg Tablet) 15 mg PO BEDTIME [facility] Last Admin: 04/14/22 19:42 Dose: 15 mg Documented By: KRISTINA Morphine Sulfate (Morphine Sulfate 2 Mg/Ml Cartridge) 4 mg IVPUSH Q4H PRN; Protocol PRN Reason: Pain, Severe (Pain Scale 7-10) Omeprazole (Omeprazole 20 Mg Capsule.Dr) 20 mg PO DAILY@0630 [facility] Last Admin: 04/15/22 05:20 Dose: 20 mg Documented By: KRISTINA Oxycodone HCl (Oxycodone Hcl Immed Release 5 Mg Tablet) 5 mg PO Q6H PRN PRN Reason: Pain (Scale Score 4-6) Last Admin: 04/15/22 12:34 Dose: 5 mg Documented By: JANE Pharmacy Consult (Consult Rx Perform Med Rec) 1 each MISCELLANE ONCE PRN PRN Reason: Consult order Pharmacy Consult (Consult Rx Vancomycin Dosing) 1 each MISCELLANE DAILY PRN PRN Reason: Consult order Polyethylene Glycol (Polyethylene Glycol 3350 17 Gm Powd.Pack) 17 gm PO DAILY PRN PRN Reason: Constipation Sodium Chloride (0.9 % Sodium Chloride Flush 3 Ml Syringe) 3 ml IVFLUSH QSHIFT [facility] Last Admin: 04/15/22 09:33 Dose: 3 ml Documented By: JANE Trazodone HCl (Trazodone Hcl 100 Mg Tablet) 200 mg PO BEDTIME [facility] Last Admin: 04/14/22 19:42 Dose: 200 mg Documented By: KRISTINA Labs CBC & Chem 7: 04/14/22 06:02 04/15/22 06:00 Labs: Laboratory Results - last 24 hr 04/14/22 04/14/22 04/15/22 15:51 18:58 06:00 Anion Gap 14 Estim Creat Clear Calc 43.9 Estimated GFR 55 POC Glucose 110 133 H Random Glucose 103 Estimat Average Glucose Hemoglobin A1c % Calcium 8.5 04/15/22 06:00 Anion Gap Estim Creat Clear Calc Estimated GFR POC Glucose Random Glucose Estimat Average Glucose 123 Hemoglobin A1c % 5.9 Calcium Microbiology Microbiology Results: Microbiology 04/13/22 16:41 Blood Culture - Preliminary Blood - Venous No growth after 24 hours. 04/13/22 16:41 Blood Culture - Preliminary Blood - Venous No growth after 24 hours. 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 It is unclear whether the patient is benefiting from antibiosis and ID consult may be helpful. Dr. Malik to resume care tomorrow, 04/16/22. Time Spent With Patient Time: Total time spent is greater than 50% in coordination of care (as documented) at patient's floor/unit and/or counseling patient: Quality Stroke Does the patient have a stroke diagnosis?: No VTE Prior VTE?: No VTE Risk Level:: Medical - moderate - high VTE Device Contraindication: N/A - Device Ordered VTE Drug Contraindication: N/A - Med Ordered
[2022-04-15 15:43] VITALS: BP 135/63; PULSE 74; RESP 17; TEMP 36.5; O2SAT 94
[2022-04-15] MEDS: Morphine Sulfate 2 MG/ML CARTRIDGE 4 MG IVPUSH ×2 (17:41→22:14)
[2022-04-15] MEDS: vancomycin HCL 750 MG in 0.9 % Sodium Chloride 250 ML 265 MG IV (18:17)
[2022-04-15 20:00] VITALS: BP 138/65; PULSE 76; RESP 17; TEMP 36.4; O2SAT 93
[2022-04-15] MEDS: Amitriptyline HCl 10 MG TABLET PO (21:01)
[2022-04-15] MEDS: traZODone HCL 100 MG TABLET 200 MG PO (21:01)
[2022-04-15] MEDS: Atorvastatin Calcium 20 MG TABLET PO (21:01)
[2022-04-15] MEDS: Mirtazapine 15 MG TABLET PO (21:02)
[2022-04-15 23:48] VITALS: BP 123/58; PULSE 69; RESP 16; TEMP 36.7; O2SAT 94
[2022-04-16 03:56] VITALS: BP 132/67; PULSE 70; RESP 18; TEMP 36.4; O2SAT 93
[2022-04-16] MEDS: Piperacillin Sodium/Tazobactam 3.375 GM in 0.9 % Sodium Chloride 50 ML IV ×4 (04:09→21:52)
[2022-04-16] MEDS: Omeprazole 20 MG CAPSULE.DR PO (05:33)
[2022-04-16 06:44] LABS: Creatinine Clr Calc Pharmacy 42.2; Estimated Glomerular Filt Rate 53
[2022-04-16 08:00] VITALS: BP 156/70; PULSE 74; RESP 18; TEMP 37; O2SAT 97
[2022-04-16] MEDS: Metoprolol Tartrate 50 MG TABLET PO ×2 (08:30→20:02)
[2022-04-16] MEDS: Docusate Sodium 100 MG CAPSULE PO ×2 (08:30→20:02)
[2022-04-16] MEDS: Gabapentin 400 MG CAPSULE 800 MG PO ×2 (08:30→20:02)
[2022-04-16] MEDS: amLODIPine Besylate 10 MG TABLET PO (08:31)
[2022-04-16] MEDS: oxyCODONE HCl Immed Release 5 MG TABLET PO ×2 (08:33→20:02)
[2022-04-16] MEDS: 0.9 % Sodium Chloride Flush 3 ML SYRINGE IVFLUSH ×3 (08:34→20:03)
--- NOTE | 2022-04-16 10:15 | MHC.CM.PN ---
PATIENT IS ACTIVE WITH [facility]. UPDATES SENT VIA [employer].
--- NOTE | 2022-04-16 10:16 | P.PNGS_ITS ---
Subjective Subjective Date of Service: 04/16/22 Interval history: Patient's daughter reports the patient is having bilateral chest discomfort. The redness is not significantly improved. She is eating well without nausea or vomiting. Physical Exam Vital Signs: Vital Signs: Last Vital Signs Temp 98.6 F 04/16/22 08:00 Pulse 74 04/16/22 08:00 Resp 18 04/16/22 08:00 BP 156/70 H 04/16/22 08:00 Pulse Ox 97 04/16/22 08:00 O2 Del Method 04/16/22 08:00 BMI result Body Mass Index 38.0 Const: General: no acute distress Nutritional Appearance: well nourished Orientation/consciousness: patient oriented x3 Limitations: no limitations Chest: Other: Bilateral mastectomies. Area of erythema noted in the left chest with scarring. No definite fluctuance appreciated. Right breast appears well adherent to the chest wall. GI: Inspection: Yes normal to inspection Skin: Other: Warm, dry, no rash Neuro: General: patient oriented x3 Extrem: General: Yes no clubbing, cyanosis or edema Objective Data Active Medications Amitriptyline HCl (Amitriptyline Hcl 10 Mg Tablet) 10 mg PO BEDTIME [facility] Last Admin: 04/15/22 21:01 Dose: 10 mg Documented By: KRISTINA Amlodipine Besylate (Amlodipine Besylate 10 Mg Tablet) 10 mg PO DAILY [facility]; Protocol Last Admin: 04/16/22 08:31 Dose: 10 mg Documented By: ALEJANDRA Atorvastatin Calcium (Atorvastatin Calcium 20 Mg Tablet) 20 mg PO BEDTIME [facility] Last Admin: 04/15/22 21:01 Dose: 20 mg Documented By: KRISTINA Dextrose (Dextrose 50 % 25 Gm/50 Ml Syringe) 25 gm IVPUSH Q15M PRN; Protocol PRN Reason: per Hypoglycemia Standing Ord. Docusate Sodium (Docusate Sodium 100 Mg Capsule) 100 mg PO BID [facility] Last Admin: 04/16/22 08:30 Dose: 100 mg Documented By: ALEJANDRA Gabapentin (Gabapentin 400 Mg Capsule) 800 mg PO BID [facility] Last Admin: 04/16/22 08:30 Dose: 800 mg Documented By: ALEJANDRA Glucose (Glucose Gel 15 Gm Gel..Gram.) 15 gm PO Q15M PRN; Protocol PRN Reason: per Hypoglycemia Standing Ord. Piperacillin Sod/Tazobactam (Sod 3.375 gm/ Sodium Chloride) 50 mls @ 100 mls/hr IV Q6H [facility] Last Infusion: 04/16/22 04:45 Dose: 0 mls/hr Documented By: KRISTINA Vancomycin HCl 750 mg/ Sodium (Chloride) 265 mls @ 265 mls/hr IV Q24H [facility] Last Infusion: 04/15/22 20:10 Dose: 0 mls/hr Documented By: KRISTINA Metoprolol Tartrate (Metoprolol Tartrate 50 Mg Tablet) 50 mg PO BID [facility]; Protocol Last Admin: 04/16/22 08:30 Dose: 50 mg Documented By: ALEJANDRA Mirtazapine (Mirtazapine 15 Mg Tablet) 15 mg PO BEDTIME [facility] Last Admin: 04/15/22 21:02 Dose: 15 mg Documented By: KRISTINA Morphine Sulfate (Morphine Sulfate 2 Mg/Ml Cartridge) 4 mg IVPUSH Q4H PRN; Protocol PRN Reason: Pain, Severe (Pain Scale 7-10) Last Admin: 04/15/22 22:14 Dose: 4 mg Documented By: KRISTINA Omeprazole (Omeprazole 20 Mg Capsule.Dr) 20 mg PO DAILY@0630 [facility] Last Admin: 04/16/22 05:33 Dose: 20 mg Documented By: KRISTINA Oxycodone HCl (Oxycodone Hcl Immed Release 5 Mg Tablet) 5 mg PO Q6H PRN PRN Reason: Pain (Scale Score 4-6) Last Admin: 04/16/22 08:33 Dose: 5 mg Documented By: ALEJANDRA Pharmacy Consult (Consult Rx Perform Med Rec) 1 each MISCELLANE ONCE PRN PRN Reason: Consult order Pharmacy Consult (Consult Rx Vancomycin Dosing) 1 each MISCELLANE DAILY PRN PRN Reason: Consult order Polyethylene Glycol (Polyethylene Glycol 3350 17 Gm Powd.Pack) 17 gm PO DAILY PRN PRN Reason: Constipation Sodium Chloride (0.9 % Sodium Chloride Flush 3 Ml Syringe) 3 ml IVFLUSH QSHIFT [facility] Last Admin: 04/16/22 08:34 Dose: 3 ml Documented By: ALEJANDRA Trazodone HCl (Trazodone Hcl 100 Mg Tablet) 200 mg PO BEDTIME [facility] Last Admin: 04/15/22 21:01 Dose: 200 mg Documented By: KRISTINA Labs CBC & Chem 7: 04/14/22 06:02 04/16/22 05:56 Labs: Laboratory Results - last 24 hr 04/16/22 05:56 Estim Creat Clear Calc 42.2 Estimated GFR 53 Microbiology Microbiology Results: Microbiology 04/13/22 16:41 Blood Culture - Preliminary Blood - Venous No growth after 48 hours. 04/13/22 16:41 Blood Culture - Preliminary Blood - Venous No growth after 48 hours. Procedures Date of Service Date of Service: 04/16/22 Progress Note: A&P Assessment and plan (1) Cellulitis: Status: Acute (2) S/P bilateral mastectomy: Status: Acute Plan 71-year-old female patient presenting with recurrent cellulitis of the chest wall left greater than right. Ultrasound seems to indicate complex collection below the flaps perhaps blood or loculated fluid. Patient continues to return to the hospital with cellulitis and may warrant exploration, drain placement. I discussed this with the patient and her daughter and they agree to proceed to incision and drainage of bilateral chest flaps. She will be added onto the operative schedule for tomorrow. I reviewed the procedure, risks, and alterna tives and she consents to the surgery. Time Spent With Patient Time: Total time spent is greater than 50% in coordination of care (as documented) at patient's floor/unit and/or counseling patient: Quality Stroke Does the patient have a stroke diagnosis?: No VTE Prior VTE?: No VTE Risk Level:: Medical - moderate - high VTE Device Contraindication: N/A - Device Ordered VTE Drug Contraindication: N/A - Med Ordered
[2022-04-16 11:44] VITALS: BP 135/65; PULSE 68; RESP 18; TEMP 36.9; O2SAT 95
[2022-04-16] MEDS: Morphine Sulfate 2 MG/ML CARTRIDGE 4 MG IVPUSH (11:49)
--- NOTE | 2022-04-16 12:42 | HO.PM.IMPN ---
Subjective Subjective Date of Service: 04/16/22 Interval History: follow up for medical consultation reporting increased pain overnight, got an extra dose of pain medication. still uncomfortable this morning denies fever or chills Review of Systems Review of Systems: Yes all other systems are reviewed and are negative Constitutional Constitutional: Denies chills and Denies fever(s) Cardiovascular Cardiovascular: Denies chest pain and Denies palpitations Gastrointestinal Gastrointestinal: Denies abdominal pain, Denies diarrhea, Denies nausea and Denies vomiting Endocrine Endocrine: Denies palpitations Physical Exam Vital Signs: Vital Signs: Last Vital Signs Temp 98.5 F 04/16/22 11:44 Pulse 68 04/16/22 11:44 Resp 18 04/16/22 11:44 BP 135/65 04/16/22 11:44 Pulse Ox 95 04/16/22 11:44 O2 Del Method 04/16/22 11:44 BMI result Body Mass Index 38.0 Appearing in no acute distress lung sounds are clear to auscultation heart regular rate rhythm, clear S1, S2 positive bowel sounds, abdomen is soft, nontender neuro patient is alert x3, no focal deficits Bilat mastectomy Objective Data Active Medications Amitriptyline HCl (Amitriptyline Hcl 10 Mg Tablet) 10 mg PO BEDTIME [facility] Last Admin: 04/15/22 21:01 Dose: 10 mg Documented By: KRISTINA Amlodipine Besylate (Amlodipine Besylate 10 Mg Tablet) 10 mg PO DAILY [facility]; Protocol Last Admin: 04/16/22 08:31 Dose: 10 mg Documented By: ALEJANDRA Atorvastatin Calcium (Atorvastatin Calcium 20 Mg Tablet) 20 mg PO BEDTIME [facility] Last Admin: 04/15/22 21:01 Dose: 20 mg Documented By: KRISTINA Dextrose (Dextrose 50 % 25 Gm/50 Ml Syringe) 25 gm IVPUSH Q15M PRN; Protocol PRN Reason: per Hypoglycemia Standing Ord. Docusate Sodium (Docusate Sodium 100 Mg Capsule) 100 mg PO BID [facility] Last Admin: 04/16/22 08:30 Dose: 100 mg Documented By: ALEJANDRA Gabapentin (Gabapentin 400 Mg Capsule) 800 mg PO BID [facility] Last Admin: 04/16/22 08:30 Dose: 800 mg Documented By: ALEJANDRA Glucose (Glucose Gel 15 Gm Gel..Gram.) 15 gm PO Q15M PRN; Protocol PRN Reason: per Hypoglycemia Standing Ord. Piperacillin Sod/Tazobactam (Sod 3.375 gm/ Sodium Chloride) 50 mls @ 100 mls/hr IV Q6H [facility] Last Infusion: 04/16/22 10:52 Dose: 0 mls/hr Documented By: ALEJANDRA Vancomycin HCl 750 mg/ Sodium (Chloride) 265 mls @ 265 mls/hr IV Q24H [facility] Last Infusion: 04/15/22 20:10 Dose: 0 mls/hr Documented By: KRISTINA Metoprolol Tartrate (Metoprolol Tartrate 50 Mg Tablet) 50 mg PO BID [facility]; Protocol Last Admin: 04/16/22 08:30 Dose: 50 mg Documented By: ALEJANDRA Mirtazapine (Mirtazapine 15 Mg Tablet) 15 mg PO BEDTIME [facility] Last Admin: 04/15/22 21:02 Dose: 15 mg Documented By: KRISTINA Morphine Sulfate (Morphine Sulfate 2 Mg/Ml Cartridge) 4 mg IVPUSH Q4H PRN; Protocol PRN Reason: Pain, Severe (Pain Scale 7-10) Last Admin: 04/16/22 11:49 Dose: 4 mg Documented By: ALEJANDRA Omeprazole (Omeprazole 20 Mg Capsule.Dr) 20 mg PO DAILY@0630 [facility] Last Admin: 04/16/22 05:33 Dose: 20 mg Documented By: KRISTINA Oxycodone HCl (Oxycodone Hcl Immed Release 5 Mg Tablet) 5 mg PO Q6H PRN PRN Reason: Pain (Scale Score 4-6) Last Admin: 04/16/22 08:33 Dose: 5 mg Documented By: ALEJANDRA Pharmacy Consult (Consult Rx Perform Med Rec) 1 each MISCELLANE ONCE PRN PRN Reason: Consult order Pharmacy Consult (Consult Rx Vancomycin Dosing) 1 each MISCELLANE DAILY PRN PRN Reason: Consult order Polyethylene Glycol (Polyethylene Glycol 3350 17 Gm Powd.Pack) 17 gm PO DAILY PRN PRN Reason: Constipation Sodium Chloride (0.9 % Sodium Chloride Flush 3 Ml Syringe) 3 ml IVFLUSH QSHIFT [facility] Last Admin: 04/16/22 08:34 Dose: 3 ml Documented By: ALEJANDRA Trazodone HCl (Trazodone Hcl 100 Mg Tablet) 200 mg PO BEDTIME [facility] Last Admin: 04/15/22 21:01 Dose: 200 mg Documented By: KRISTINA Labs CBC & Chem 7: 04/14/22 06:02 04/16/22 05:56 Labs: Laboratory Results - last 24 hr 04/16/22 05:56 Estim Creat Clear Calc 42.2 Estimated GFR 53 Microbiology Microbiology Results: Microbiology 04/13/22 16:41 Blood Culture - Preliminary Blood - Venous No growth after 48 hours. 04/13/22 16:41 Blood Culture - Preliminary Blood - Venous No growth after 48 hours. Assessment and Plan (1) Cellulitis: Status: Acute (2) S/P bilateral mastectomy: Status: Acute Plan 71-year-old [place] Citizen-speaking female with history of breast cancer status post bilateral mastectomy here with recurrent cellulitis of bilateral breasts HLD continue statin HTN some high readings but generally under adequate control continue amlodipine, metoprolol follow BP ?h/o DM pt and daughter deny h/o DM. chart indicates diet controlled/prediabetes HbA1c - 5.9 can stop POCs CKD3 creatinine at baseline cellulitis b/l mastectomy sites b/l breast US showing complex fluid collection vs phlegmon/postsurgical change on vancomycin and zosyn plan for I &D tomorrow as per gen surgery pain management Thank you for allowing us to participate in the care of this patient. we will follow along with you Quality Stroke Does the patient have a stroke diagnosis?: No VTE Prior VTE?: No VTE Risk Level:: Medical - moderate - high VTE Device Contraindication: N/A - Device Ordered VTE Drug Contraindication: N/A - Med Ordered
[2022-04-16 16:00] VITALS: BP 150/69; PULSE 76; RESP 18; TEMP 36.6; O2SAT 97
[2022-04-16 17:24] LABS: Vancomycin Trough 7.4 mcg/mL (10.0-20.0)
--- NOTE | 2022-04-16 17:37 | HE.PHANOTE ---
RE: vanco Trough on 04/16 came back at 7.4; increased dose to 1000mg Q24H with predicted AUC of 422mg/L. Next random to be drawn on 04/18/22 @1600
[2022-04-16] MEDS: vancomycin HCL 1,000 MG in 0.9 % Sodium Chloride 250 ML 270 MG IV (17:56)
[2022-04-16 19:49] VITALS: BP 150/70; PULSE 78; RESP 17; TEMP 36.6; O2SAT 96
[2022-04-16] MEDS: traZODone HCL 100 MG TABLET 200 MG PO (20:02)
[2022-04-16] MEDS: Atorvastatin Calcium 20 MG TABLET PO (20:02)
[2022-04-16] MEDS: Amitriptyline HCl 10 MG TABLET PO (20:02)
[2022-04-16] MEDS: Mirtazapine 15 MG TABLET PO (20:02)
[2022-04-16] MEDS: polyethylene glycoL 3350 17 GM POWD.PACK PO (21:50)
[2022-04-16] MEDS: HYDROmorphone HCl 1 MG/ML SYRINGE 0.5 MG IVPUSH (21:59)
[2022-04-17] VITALS (12 sets, daily range): BP systolic 105–151; BP diastolic 47–86; PULSE 64–84; RESP 14–18; TEMP 36.1–36.9; O2SAT 93–98; BMI 36.8
[2022-04-17] MEDS: Piperacillin Sodium/Tazobactam 3.375 GM in 0.9 % Sodium Chloride 50 ML IV ×4 (03:51→21:58)
[2022-04-17] MEDS: Omeprazole 20 MG CAPSULE.DR PO (06:06)
[2022-04-17 07:24] LABS: Creatinine Clr Calc Pharmacy 43.9; Estimated Glomerular Filt Rate 55
[2022-04-17] MEDS: Docusate Sodium 100 MG CAPSULE PO ×2 (07:52→21:16)
[2022-04-17] MEDS: Gabapentin 400 MG CAPSULE 800 MG PO ×2 (07:52→21:16)
[2022-04-17] MEDS: amLODIPine Besylate 10 MG TABLET PO (07:52)
[2022-04-17] MEDS: Metoprolol Tartrate 50 MG TABLET PO ×2 (07:53→21:15)
[2022-04-17] MEDS: 0.9 % Sodium Chloride Flush 3 ML SYRINGE IVFLUSH ×2 (07:55→21:17)
[2022-04-17] MEDS: oxyCODONE HCl Immed Release 5 MG TABLET PO ×2 (07:59→18:02)
--- NOTE | 2022-04-17 08:30 | HE.PHANOTE ---
Vancomycin Dosing Addendum Continue 1000 mg Q24H. Crcl at 43.9. Predicted AUC 408 mg/L/hr. LEvel to be drawn tomorrow 04/18 @1600
[2022-04-17 11:04] LABS: Glucose, Whole Blood 94 mg/dL (60-115)
--- NOTE | 2022-04-17 11:43 | HO.ANESPROP2 ---
HPI - Anesthesia Eval Consult details Narrative: 71 F for I and D b/l chest wall PMFSH Active Problems Active Problems: All Active Problems (Updated 04/13/22 @ 16:14 by Grecia Hui NP) Cellulitis (Acute) S/P bilateral mastectomy (Acute) Lobular carcinoma in situ (Acute) Seroma (Acute) Cellulitis of chest wall (Acute) Dementia (Acute) Fall (Acute) Head trauma (Acute) Toxic metabolic encephalopathy (Acute) Surgical wound infection (Acute) Post op infection (Acute) HTN (hypertension) (Acute) Failed back syndrome (Acute) Lumbar disc disease with radiculopathy (Acute) Screening for diabetes mellitus (DM) (Acute) Pre-procedural laboratory examination (Acute) DMII (diabetes mellitus, type 2) (Acute) Insomnia (Acute) Annual physical exam (Acute) Opiate dependence (Acute) MDD (major depressive disorder), recurrent episode, moderate (Acute) Neuropathic pain (Acute) GERD (gastroesophageal reflux disease) (Acute) Diarrhea (Acute) Cervical myelopathy with cervical radiculopathy (Acute) Pre-procedure lab exam (Acute) Chest pain (Acute) Hypertension (Acute) Hyperkalemia (Acute) QUIN (acute kidney injury) (Acute) Radiculopathy (Acute) Musculoskeletal pain (Acute) Prediabetes (Acute) Hospital discharge follow-up (Acute) Cervical stenosis of spinal canal (Acute) Tinea unguium (Acute) Abnormal ultrasound of breast (Acute) Traumatic complete tear of right rotator cuff (Acute) Past Medical History Medical History Arthritis Depression Diabetes 1.5, managed as type 2 GERD (gastroesophageal reflux disease) HTN (hypertension) IBS (irritable bowel syndrome) 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 Mother Heart disease Hypertension Colon cancer Maternal Grandmother Esophageal cancer Daughter Breast cancer Brother Colon cancer Sister Breast cancer Sister Breast cancer, Onset Age: 60 Family history of problems with anesthesia: No Surgical History Surgical History History of bilateral mastectomy (02/19/22) History of colonoscopy History of esophagogastroduodenoscopy (EGD) History of lumbar fusion History of lumpectomy of both breasts History of surgery Hx of appendectomy Hx of blepharoplasty Hx of cholecystectomy S/P [id number] (total abdominal hysterectomy and bilateral salpingo-oophorectomy) History of Problems with Anesthesia: No Social History Social History Household Members: None Housing: Apartment Are you a primary housekeeper child care to a significant other at home: No Do you presently have visiting nurse or other home services: Yes Unable to assess alcohol history related to: Unknown Alcohol intake: unknown Patient Tobacco Use Status: Never used Tobacco e-Cigarette/Vaping Use: Never Used Second Hand Smoke Exposure: No Use of substances other than those prescribed or required for medical reasons: No Currently Displaying Signs/Symptoms of Drug Intoxication Withdrawal: No Have you been hit, kicked, punched, or otherwise hurt by someone within the past year? If so, by whom?: No Do you feel safe in your current relationship?: No Current Relationship Is there a partner from a previous relationship who is making you feel unsafe now?: No Are you made to feel afraid or neglected: No Are you DNR?: No Advance Directives: Yes Advance Directives on File: Yes Advance Directives Date on File: 09/26/21 Do you have thoughts of harming others: None Do you have a plan to hurt others: No Plan Recently lost weight without trying: Yes How much weight loss: 2-13 pounds Eating poorly because of decreased appetite: Yes Nutrition screen score: 4 Nutrition Risks: No Nutritional Risk Patient : No : No Poor oral hygiene: No service: No Current occupational status: disabled 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) Hearing needs: No Vision needs: Yes Meds Allergies Allergy/AdvReac Type Severity Reaction Status Date / Time No Known Allergies Allergy Verified 04/12/22 11:40 [No Known Allergies*] Active Medications: Current Medications Amitriptyline HCl (Amitriptyline Hcl 10 Mg Tablet) 10 mg PO BEDTIME [facility] Last Admin: 04/16/22 20:02 Dose: 10 mg Amlodipine Besylate (Amlodipine Besylate 10 Mg Tablet) 10 mg PO DAILY [facility]; Protocol Last Admin: 04/17/22 07:52 Dose: 10 mg Atorvastatin Calcium (Atorvastatin Calcium 20 Mg Tablet) 20 mg PO BEDTIME [facility] Last Admin: 04/16/22 20:02 Dose: 20 mg Dextrose (Dextrose 50 % 25 Gm/50 Ml Syringe) 25 gm IVPUSH Q15M PRN; Protocol PRN Reason: per Hypoglycemia Standing Ord. Docusate Sodium (Docusate Sodium 100 Mg Capsule) 100 mg PO BID [facility] Last Admin: 04/17/22 07:52 Dose: 100 mg Gabapentin (Gabapentin 400 Mg Capsule) 800 mg PO BID [facility] Last Admin: 04/17/22 07:52 Dose: 800 mg Glucose (Glucose Gel 15 Gm Gel..Gram.) 15 gm PO Q15M PRN; Protocol PRN Reason: per Hypoglycemia Standing Ord. Hydromorphone HCl (Hydromorphone Hcl 1 Mg/Ml Syringe) 0.5 mg IVPUSH Q4H PRN; Protocol PRN Reason: Pain, Severe (Pain Scale 7-10) Last Admin: 04/16/22 21:59 Dose: 0.5 mg Piperacillin Sod/Tazobactam (Sod 3.375 gm/ Sodium Chloride) 50 mls @ 100 mls/hr IV Q6H [facility] Last Admin: 04/17/22 10:39 Dose: 100 mls/hr Cefazolin Sodium/Dextrose (Ancef) 2 gm in 50 mls @ 100 mls/hr IV PREOP ONE Stop: 04/17/22 15:09 Vancomycin HCl 1,000 mg/ (Sodium Chloride) 270 mls @ 270 mls/hr IV Q24H [facility] Last Infusion: 04/16/22 18:56 Dose: Infused Metoprolol Tartrate (Metoprolol Tartrate 50 Mg Tablet) 50 mg PO BID [facility]; Protocol Last Admin: 04/17/22 07:53 Dose: 50 mg Mirtazapine (Mirtazapine 15 Mg Tablet) 15 mg PO BEDTIME [facility] Last Admin: 04/16/22 20:02 Dose: 15 mg Omeprazole (Omeprazole 20 Mg Capsule.Dr) 20 mg PO DAILY@0630 [facility] Last Admin: 04/17/22 06:06 Dose: 20 mg Oxycodone HCl (Oxycodone Hcl Immed Release 5 Mg Tablet) 5 mg PO Q6H PRN PRN Reason: Pain (Scale Score 4-6) Last Admin: 04/17/22 07:59 Dose: 5 mg Pharmacy Consult (Consult Rx Perform Med Rec) 1 each MISCELLANE ONCE PRN PRN Reason: Consult order Pharmacy Consult (Consult Rx Vancomycin Dosing) 1 each MISCELLANE DAILY PRN PRN Reason: Consult order Polyethylene Glycol (Polyethylene Glycol 3350 17 Gm Powd.Pack) 17 gm PO DAILY PRN PRN Reason: Constipation Last Admin: 04/16/22 21:50 Dose: 17 gm Sodium Chloride (0.9 % Sodium Chloride Flush 3 Ml Syringe) 3 ml IVFLUSH QSHIFT [facility] Last Admin: 04/17/22 07:55 Dose: 3 ml Trazodone HCl (Trazodone Hcl 100 Mg Tablet) 200 mg PO BEDTIME [facility] Last Admin: 04/16/22 20:02 Dose: 200 mg Home Medications Medication Instructions Recorded Confirmed Last Taken Type atorvastatin 20 mg tablet 20 mg PO BEDTIME 04/13/22 04/13/22 04/12/22 History oxycodone 5 mg tablet 1 tab PO Q8H PRN Pain (Scale Score 04/13/22 04/13/22 04/13/22 History 4-6) trazodone 100 mg tablet 200 mg PO BEDTIME 04/13/22 04/13/22 04/12/22 History Exam Exam Date and Time: April 17, 2022 1143 Height,Weight and Vital Signs: Height 4 ft 9 in Weight 77.111 kg Last Vital Signs Temp 98.2 F 04/17/22 11:03 Pulse 68 04/17/22 11:03 Resp 18 04/17/22 11:03 BP 121/62 04/17/22 11:03 Pulse Ox 95 04/17/22 11:03 O2 Del Method 04/17/22 11:03 Pertinent Lab Results Pertinent Lab Results: Laboratory Tests 04/13/22 04/13/22 04/13/22 12:56 14:09 16:41 WBC 9.9 RBC 3.44 L Hgb 10.2 L Hct 31.4 L MCV 91.3 MCH 29.7 MCHC 32.5 RDW 13.4 Plt Count 419 H MPV 9.6 Immature Gran % (Auto) 0.7 H Neut % (Auto) 65.4 Lymph % (Auto) 23.3 [place] % (Auto) 7.4 Eos % (Auto) 2.6 Baso % (Auto) 0.6 Lymph # (Auto) 2.3 [place] # (Auto) 0.7 Eos # (Auto) 0.3 Baso # (Auto) 0.1 Abs Immat Gran (auto) 0.07 H Absolute Neuts (auto) 6.5 Absolute Nucleated RBC 0.000 Nucleated RBC % (auto) 0.0 Sodium 139 Potassium 4.8 Chloride 107 Carbon Dioxide 21 L Anion Gap 16 BUN 26 H Creatinine 1.04 Estim Creat Clear Calc 41.8 Estimated GFR 52 POC Glucose Random Glucose 118 H Estimat Average Glucose Hemoglobin A1c % Lactic Acid Calcium 9.1 Total Bilirubin 0.2 AST 15 ALT 13 Alkaline Phosphatase 88 Total Protein 6.8 Albumin 3.6 Vancomycin Trough COVID-19 ([facility]) Negative COVID-19 Clin Com See Note 04/13/22 04/14/22 04/14/22 16:41 06:02 08:48 WBC 8.2 RBC 3.50 L Hgb 10.4 L Hct 33.2 L MCV 94.9 MCH 29.7 MCHC 31.3 RDW 13.8 Plt Count 412 H MPV 9.6 Immature Gran % (Auto) 0.4 Neut % (Auto) 71.7 Lymph % (Auto) 14.1 L [place] % (Auto) 8.6 Eos % (Auto) 4.7 H Baso % (Auto) 0.5 Lymph # (Auto) 1.2 [place] # (Auto) 0.7 Eos # (Auto) 0.4 Baso # (Auto) 0.0 Abs Immat Gran (auto) 0.03 Absolute Neuts (auto) 5.9 Absolute Nucleated RBC 0.000 Nucleated RBC % (auto) 0.0 Sodium 140 Potassium 4.5 Chloride 107 Carbon Dioxide 24 Anion Gap 14 BUN 17 H Creatinine 0.92 Estim Creat Clear Calc 47.3 Estimated GFR 60 POC Glucose Random Glucose 118 H Estimat Average Glucose Hemoglobin A1c % Lactic Acid 1.0 Calcium 8.7 Total Bilirubin AST ALT Alkaline Phosphatase Total Protein Albumin Vancomycin Trough COVID-19 ([facility]) COVID-19 Clin Com 04/14/22 04/14/22 04/15/22 15:51 18:58 06:00 WBC RBC Hgb Hct MCV MCH MCHC RDW Plt Count MPV Immature Gran % (Auto) Neut % (Auto) Lymph % (Auto) [place] % (Auto) Eos % (Auto) Baso % (Auto) Lymph # (Auto) [place] # (Auto) Eos # (Auto) Baso # (Auto) Abs Immat Gran (auto) Absolute Neuts (auto) Absolute Nucleated RBC Nucleated RBC % (auto) Sodium 140 Potassium 4.3 Chloride 105 Carbon Dioxide 25 Anion Gap 14 BUN 20 H Creatinine 0.99 Estim Creat Clear Calc 43.9 Estimated GFR 55 POC Glucose 110 133 H Random Glucose 103 Estimat Average Glucose Hemoglobin A1c % Lactic Acid Calcium 8.5 Total Bilirubin AST ALT Alkaline Phosphatase Total Protein Albumin Vancomycin Trough COVID-19 ([facility]) COVID-19 Clin Com 04/15/22 04/16/22 04/16/22 06:00 05:56 16:09 WBC RBC Hgb Hct MCV MCH MCHC RDW Plt Count MPV Immature Gran % (Auto) Neut % (Auto) Lymph % (Auto) [place] % (Auto) Eos % (Auto) Baso % (Auto) Lymph # (Auto) [place] # (Auto) Eos # (Auto) Baso # (Auto) Abs Immat Gran (auto) Absolute Neuts (auto) Absolute Nucleated RBC Nucleated RBC % (auto) Sodium Potassium Chloride Carbon Dioxide Anion Gap BUN Creatinine 1.03 Estim Creat Clear Calc 42.2 Estimated GFR 53 POC Glucose Random Glucose Estimat Average Glucose 123 Hemoglobin A1c % 5.9 Lactic Acid Calcium Total Bilirubin AST ALT Alkaline Phosphatase Total Protein Albumin Vancomycin Trough 7.4 L COVID-19 ([facility]) COVID-19 Clin Com 04/17/22 04/17/22 05:52 10:59 WBC RBC Hgb Hct MCV MCH MCHC RDW Plt Count MPV Immature Gran % (Auto) Neut % (Auto) Lymph % (Auto) [place] % (Auto) Eos % (Auto) Baso % (Auto) Lymph # (Auto) [place] # (Auto) Eos # (Auto) Baso # (Auto) Abs Immat Gran (auto) Absolute Neuts (auto) Absolute Nucleated RBC Nucleated RBC % (auto) Sodium Potassium Chloride Carbon Dioxide Anion Gap BUN Creatinine 0.99 Estim Creat Clear Calc 43.9 Estimated GFR 55 POC Glucose 94 Random Glucose Estimat Average Glucose Hemoglobin A1c % Lactic Acid Calcium Total Bilirubin AST ALT Alkaline Phosphatase Total Protein Albumin Vancomycin Trough COVID-19 ([facility]) COVID-19 Clin Com Airway Mallampati Class: III TM Dist: >3cm Neck ROM: Full Partial: Lower Loose/Missing/Broken Teeth: Yes Heart: S1,S2 Lungs: b/l breath sounds Assessment and Plan Assessment Anesthesia Assessment: Anesthesia Plan Discussed and Chart Reviewed Final Anesthetic Review Family History of Problems with Anesthesia: No History of Problems with Anesthesia: No NPO: Yes ASA Class: III Final Preanesthetic Review: Meds/Allgs Chart Reviewed, Consent Obtained/Reviewed and Anes Risks/Benef Reviewed Patient Risk: Intermediate Procedure Risk: Intermediate Anesthetic Plan Anesthetic Plan: GA Disposition: Inp. Admit - Standard Bed
--- NOTE | 2022-04-17 13:06 | W.PM.OPN ---
Operative Note Operative Note Date of Service: 04/17/22 Narrative: Preoperative diagnosis: Bilateral chest wall cellulitis, s/p bilateral mastectomy Postoperative diagnosis: small seroma left chest wall, negative I and D right chest wall Procedure: incision and drainage bilateral chest wall Surgeon: Renard Malik MD Senior Infrastructure Architect: Halley Haque PA-C, CHASTITY Hare Anesthesia: general LMA Indications for procedure: 71-year-old female with recently diagnosed left breast CA, status post left simple mastectomy and right mastectomy with recurrent cellulitis of the left chest wall as well as a small amount of erythema the right chest wall. She presents for incision and drainage of possible chest wall abscess or seroma. Operative findings: Small chest wall seroma left chest. No abscess. Specimen: Wound culture left chest wall seroma Estimated blood loss: 5 mL Complications: none Procedure details: patient was brought to the OR placed in a supine position. After administering general anesthesia patient's bilateral chest was prepped with Betadine and draped in a sterile fashion. A surgical time-out was called the consent confirmed. Patient received preoperative antibiotics and Venodyne boots were in place. Local anesthesia consisting of 0.5% Sensorcaine was infiltrated in the previous incision starting on the left chest. Incision was then made measuring approximately 3 cm and carried out through subcutaneous tissue down to chest wall. A small seroma was encountered. Wound cultures were obtained of the fluid. This was then aspirated using suction. A small Zach-Spear drain was then placed into the cavity and brought out through a separate stab wound. This was secured to the chest wall using a 2 0 nylon suture. Skin was then closed using interrupted nylon sutures. Attention was then directed to the right chest were again incision was made in the incision the area of most marked erythema. This was carried out through subcutaneous tissue down to chest wall. No seroma could be identified on this side. Wounds were then closed using interrupted 3-0 nylon sutures. Sterile dressings were applied to both incisions. The Zach-Spear drain was connected to bulb suction. Patient tolerated the procedure well. Sponge, instrument, and needle counts reported as correct. Patient was transferred to PACU in stable condition.
[2022-04-17] MEDS: HYDROmorphone HCl 1 MG/ML SYRINGE 0.5 MG IVPUSH ×2 (14:05→21:15)
[2022-04-17] MEDS: vancomycin HCL 1,000 MG in 0.9 % Sodium Chloride 250 ML 270 MG IV (17:55)
[2022-04-17 19:45] LABS: Glucose, Whole Blood 243 mg/dL (60-115)
[2022-04-17] MEDS: Atorvastatin Calcium 20 MG TABLET PO (21:16)
[2022-04-17] MEDS: Mirtazapine 15 MG TABLET PO (21:16)
[2022-04-17] MEDS: Amitriptyline HCl 10 MG TABLET PO (21:16)
[2022-04-17] MEDS: traZODone HCL 100 MG TABLET 200 MG PO (21:16)
[2022-04-18] VITALS (7 sets, daily range): BP systolic 119–139; BP diastolic 56–90; PULSE 68–78; RESP 18–20; TEMP 36.1–37.3; O2SAT 93–99
[2022-04-18] MEDS: Piperacillin Sodium/Tazobactam 3.375 GM in 0.9 % Sodium Chloride 50 ML IV ×4 (05:17→23:20)
[2022-04-18] MEDS: Omeprazole 20 MG CAPSULE.DR PO (05:18)
[2022-04-18] MEDS: HYDROmorphone HCl 1 MG/ML SYRINGE 0.5 MG IVPUSH ×4 (05:29→23:21)
[2022-04-18 06:59] LABS: Creatinine Clr Calc Pharmacy 47.9; Estimated Glomerular Filt Rate > 60
[2022-04-18 07:27] LABS: Glucose, Whole Blood 201 mg/dL (60-115)
--- NOTE | 2022-04-18 08:10 | HO.POSTANES ---
Post Anesthesia Evaluation Post Anesthesia Evaluation Vital Signs: Vital Signs Temp Pulse Resp BP Pulse Ox O2 Del Method 04/18/22 06:57 98 F 70 18 133/66 94 Room Air 04/18/22 03:51 97.4 F 78 18 126/61 98 Room Air 04/18/22 00:00 97.1 F 77 18 119/56 L 96 Room Air Mental Status: Awake Pain Control: Satisfactory Nausea/Vomiting: None Hydration: Adequate Anesthesia-Related Issues: No Anes. Related Issues
[2022-04-18] MEDS: Gabapentin 400 MG CAPSULE 800 MG PO ×2 (08:51→20:43)
[2022-04-18] MEDS: Metoprolol Tartrate 50 MG TABLET PO ×2 (08:51→20:43)
[2022-04-18] MEDS: Docusate Sodium 100 MG CAPSULE PO ×2 (08:51→20:44)
[2022-04-18] MEDS: amLODIPine Besylate 10 MG TABLET PO (08:51)
[2022-04-18] MEDS: 0.9 % Sodium Chloride Flush 3 ML SYRINGE IVFLUSH ×3 (08:52→23:24)
[2022-04-18 11:25] LABS: Glucose, Whole Blood 144 mg/dL (60-115)
--- NOTE | 2022-04-18 12:13 | PM.PNGS ---
Subjective Subjective Date of Service: 04/18/22 Interval history: Feels a little better, chest discomfort improved. No new complaints. Physical Exam Vital Signs: Vital Signs: Last Vital Signs Temp 97 F 04/18/22 11:19 Pulse 69 04/18/22 11:19 Resp 18 04/18/22 11:19 BP 139/90 H 04/18/22 11:19 Pulse Ox 99 04/18/22 11:19 O2 Del Method 04/18/22 11:19 O2 Flow Rate 1 04/17/22 13:25 BMI result Body Mass Index 36.8 Const: General: comfortable, no acute distress and alert Orientation/consciousness: patient oriented x3 Chest: Other: erythema improved to b/l breasts, still remains near L axilla, persistent induration on left side into axilla, GENET remains in place with serosanguineous output, sutures intact to drainage sites b/l Resp: Effort & Inspection: normal respiratory effort Skin: General skin exam: no rashes or lesions noted Neuro: General: patient oriented x3 Objective Data Active Medications Amitriptyline HCl (Amitriptyline Hcl 10 Mg Tablet) 10 mg PO BEDTIME [facility] Last Admin: 04/17/22 21:16 Dose: 10 mg Documented By: RADHA Amlodipine Besylate (Amlodipine Besylate 10 Mg Tablet) 10 mg PO DAILY [facility]; Protocol Last Admin: 04/18/22 08:51 Dose: 10 mg Documented By: ANGELA Atorvastatin Calcium (Atorvastatin Calcium 20 Mg Tablet) 20 mg PO BEDTIME [facility] Last Admin: 04/17/22 21:16 Dose: 20 mg Documented By: RADHA Dextrose (Dextrose 50 % 25 Gm/50 Ml Syringe) 25 gm IVPUSH Q15M PRN; Protocol PRN Reason: per Hypoglycemia Standing Ord. Docusate Sodium (Docusate Sodium 100 Mg Capsule) 100 mg PO BID [facility] Last Admin: 04/18/22 08:51 Dose: 100 mg Documented By: ANGELA Gabapentin (Gabapentin 400 Mg Capsule) 800 mg PO BID [facility] Last Admin: 04/18/22 08:51 Dose: 800 mg Documented By: ANGELA Glucose (Glucose Gel 15 Gm Gel..Gram.) 15 gm PO Q15M PRN; Protocol PRN Reason: per Hypoglycemia Standing Ord. Hydromorphone HCl (Hydromorphone Hcl 1 Mg/Ml Syringe) 0.5 mg IVPUSH Q4H PRN; Protocol PRN Reason: Pain, Severe (Pain Scale 7-10) Last Admin: 04/18/22 08:52 Dose: 0.5 mg Documented By: ANGELA Piperacillin Sod/Tazobactam (Sod 3.375 gm/ Sodium Chloride) 50 mls @ 100 mls/hr IV Q6H [facility] Last Admin: 04/18/22 12:01 Dose: 100 mls/hr Documented By: ANGELA Vancomycin HCl 1,000 mg/ (Sodium Chloride) 270 mls @ 270 mls/hr IV Q24H [facility] Last Infusion: 04/17/22 19:26 Dose: 270 mls/hr Documented By: FAMILIA Metoprolol Tartrate (Metoprolol Tartrate 50 Mg Tablet) 50 mg PO BID [facility]; Protocol Last Admin: 04/18/22 08:51 Dose: 50 mg Documented By: ANGELA Mirtazapine (Mirtazapine 15 Mg Tablet) 15 mg PO BEDTIME [facility] Last Admin: 04/17/22 21:16 Dose: 15 mg Documented By: RADHA Omeprazole (Omeprazole 20 Mg Capsule.Dr) 20 mg PO DAILY@0630 [facility] Last Admin: 04/18/22 05:18 Dose: 20 mg Documented By: RADHA Oxycodone HCl (Oxycodone Hcl Immed Release 5 Mg Tablet) 5 mg PO Q6H PRN PRN Reason: Pain (Scale Score 4-6) Last Admin: 04/17/22 18:02 Dose: 5 mg Documented By: FAMILIA Pharmacy Consult (Consult Rx Perform Med Rec) 1 each MISCELLANE ONCE PRN PRN Reason: Consult order Pharmacy Consult (Consult Rx Vancomycin Dosing) 1 each MISCELLANE DAILY PRN PRN Reason: Consult order Polyethylene Glycol (Polyethylene Glycol 3350 17 Gm Powd.Pack) 17 gm PO DAILY PRN PRN Reason: Constipation Last Admin: 04/16/22 21:50 Dose: 17 gm Documented By: CONNOR Sodium Chloride (0.9 % Sodium Chloride Flush 3 Ml Syringe) 3 ml IVFLUSH QSHIFT [facility] Last Admin: 04/18/22 08:52 Dose: 3 ml Documented By: ANGELA Trazodone HCl (Trazodone Hcl 100 Mg Tablet) 200 mg PO BEDTIME [facility] Last Admin: 04/17/22 21:16 Dose: 200 mg Documented By: RADHA Labs CBC & Chem 7: 04/14/22 06:02 04/18/22 06:21 Labs: Laboratory Results - last 24 hr 04/17/22 04/18/22 04/18/22 19:41 06:21 07:00 Estim Creat Clear Calc 47.9 Estimated GFR > 60 POC Glucose 243 H 201 H 04/18/22 11:21 Estim Creat Clear Calc Estimated GFR POC Glucose 144 H Microbiology Microbiology Results: Microbiology 04/17/22 Unknown Gram Stain - Final Chest Routine Culture - Preliminary No growth to date. Procedures Date of Service Date of Service: 04/18/22 Progress Note: A&P Assessment and plan (1) S/P bilateral mastectomy: Status: Acute (2) Cellulitis: Status: Acute Plan 71-year-old female patient presenting with recurrent cellulitis of the chest wall left greater than right. Ultrasound seemed to indicate complex collection below the flaps perhaps blood or loculated fluid. She is POD #1 s/p incision and drainage bilateral chest wall found to have seroma of left chest wall, negative I&D of right. Await wound cultures. Cont IV zosyn and vanco. GENET drain on left draining scanty serosanguineous fluid. Will keep in place for now. Warm compress TID to left chest/axilla to hopefully help with induration. Possible discharge in next 1-2 days on PO abx. Time Spent With Patient Time: Total time spent is greater than 50% in coordination of care (as documented) at patient's floor/unit and/or counseling patient: Quality Stroke Does the patient have a stroke diagnosis?: No VTE Prior VTE?: No VTE Risk Level:: Medical - moderate - high VTE Device Contraindication: N/A - Device Ordered VTE Drug Contraindication: N/A - Med Ordered
--- NOTE | 2022-04-18 12:34 | P.PNGS_ITS ---
Subjective Subjective Date of Service: 04/18/22 Interval history: Overall patient feels improved with some discomfort in the chest. She denies nausea, vomiting, fever or chills. Physical Exam Vital Signs: Vital Signs: Last Vital Signs Temp 97 F 04/18/22 11:19 Pulse 69 04/18/22 11:19 Resp 18 04/18/22 11:19 BP 139/90 H 04/18/22 11:19 Pulse Ox 99 04/18/22 11:19 O2 Del Method 04/18/22 11:19 O2 Flow Rate 1 04/17/22 13:25 BMI result Body Mass Index 36.8 Const: General: comfortable and no acute distress Nutritional Appearance: well nourished Orientation/consciousness: patient oriented x3 Limitations: no limitations Chest: Other: Chest wounds are clean, dry, and intact without redness or discharge. GENET with small amount of serosanguineous discharge. Skin: Other: Warm, dry, no rash Neuro: General: patient oriented x3 Extrem: General: No edema Objective Data Active Medications Amitriptyline HCl (Amitriptyline Hcl 10 Mg Tablet) 10 mg PO BEDTIME [facility] Last Admin: 04/17/22 21:16 Dose: 10 mg Documented By: RADHA Amlodipine Besylate (Amlodipine Besylate 10 Mg Tablet) 10 mg PO DAILY [facility]; Protocol Last Admin: 04/18/22 08:51 Dose: 10 mg Documented By: ANGELA Atorvastatin Calcium (Atorvastatin Calcium 20 Mg Tablet) 20 mg PO BEDTIME [facility] Last Admin: 04/17/22 21:16 Dose: 20 mg Documented By: RADHA Dextrose (Dextrose 50 % 25 Gm/50 Ml Syringe) 25 gm IVPUSH Q15M PRN; Protocol PRN Reason: per Hypoglycemia Standing Ord. Docusate Sodium (Docusate Sodium 100 Mg Capsule) 100 mg PO BID [facility] Last Admin: 04/18/22 08:51 Dose: 100 mg Documented By: ANGELA Gabapentin (Gabapentin 400 Mg Capsule) 800 mg PO BID [facility] Last Admin: 04/18/22 08:51 Dose: 800 mg Documented By: ANGELA Glucose (Glucose Gel 15 Gm Gel..Gram.) 15 gm PO Q15M PRN; Protocol PRN Reason: per Hypoglycemia Standing Ord. Hydromorphone HCl (Hydromorphone Hcl 1 Mg/Ml Syringe) 0.5 mg IVPUSH Q4H PRN; Protocol PRN Reason: Pain, Severe (Pain Scale 7-10) Last Admin: 04/18/22 08:52 Dose: 0.5 mg Documented By: ANGELA Piperacillin Sod/Tazobactam (Sod 3.375 gm/ Sodium Chloride) 50 mls @ 100 mls/hr IV Q6H [facility] Last Admin: 04/18/22 12:01 Dose: 100 mls/hr Documented By: ANGELA Vancomycin HCl 1,000 mg/ (Sodium Chloride) 270 mls @ 270 mls/hr IV Q24H [facility] Last Infusion: 04/17/22 19:26 Dose: 270 mls/hr Documented By: FAMILIA Metoprolol Tartrate (Metoprolol Tartrate 50 Mg Tablet) 50 mg PO BID [facility]; Protocol Last Admin: 04/18/22 08:51 Dose: 50 mg Documented By: ANGELA Mirtazapine (Mirtazapine 15 Mg Tablet) 15 mg PO BEDTIME [facility] Last Admin: 04/17/22 21:16 Dose: 15 mg Documented By: RADHA Omeprazole (Omeprazole 20 Mg Capsule.Dr) 20 mg PO DAILY@0630 [facility] Last Admin: 04/18/22 05:18 Dose: 20 mg Documented By: RADHA Oxycodone HCl (Oxycodone Hcl Immed Release 5 Mg Tablet) 5 mg PO Q6H PRN PRN Reason: Pain (Scale Score 4-6) Last Admin: 04/17/22 18:02 Dose: 5 mg Documented By: FAMILIA Pharmacy Consult (Consult Rx Perform Med Rec) 1 each MISCELLANE ONCE PRN PRN Reason: Consult order Pharmacy Consult (Consult Rx Vancomycin Dosing) 1 each MISCELLANE DAILY PRN PRN Reason: Consult order Polyethylene Glycol (Polyethylene Glycol 3350 17 Gm Powd.Pack) 17 gm PO DAILY PRN PRN Reason: Constipation Last Admin: 04/16/22 21:50 Dose: 17 gm Documented By: CONNOR Sodium Chloride (0.9 % Sodium Chloride Flush 3 Ml Syringe) [facility] Last Admin: 04/18/22 08:52 Dose: 3 ml Documented By: ANGELA Trazodone HCl (Trazodone Hcl 100 Mg Tablet) 200 mg PO BEDTIME [facility] Last Admin: 04/17/22 21:16 Dose: 200 mg Documented By: RADHA Labs CBC & Chem 7: 04/14/22 06:02 04/18/22 06:21 Labs: Laboratory Results - last 24 hr 04/17/22 04/18/22 04/18/22 19:41 06:21 07:00 Estim Creat Clear Calc 47.9 Estimated GFR > 60 POC Glucose 243 H 201 H 04/18/22 11:21 Estim Creat Clear Calc Estimated GFR POC Glucose 144 H Microbiology Microbiology Results: Microbiology 04/17/22 Unknown Gram Stain - Final Chest Routine Culture - Preliminary No growth to date. Procedures Date of Service Date of Service: 04/18/22 Progress Note: A&P Assessment and plan (1) Cellulitis: Status: Acute (2) S/P bilateral mastectomy: Status: Acute Plan Pod 1 following bilateral incision and drainage of a chest seroma and placement of drain. She feels improved today with decreased pain. Drain is producing serous sanguinous fluid. No fluid was found of the right chest. Will continue with IV antibiotics and GENET drain. Continue to monitor cellulitis. Time Spent With Patient Time: Total time spent is greater than 50% in coordination of care (as documented) at patient's floor/unit and/or counseling patient: Quality Stroke Does the patient have a stroke diagnosis?: No VTE Prior VTE?: No VTE Risk Level:: Medical - moderate - high VTE Device Contraindication: N/A - Device Ordered VTE Drug Contraindication: N/A - Med Ordered
[2022-04-18 16:30] LABS: Glucose, Whole Blood 133 mg/dL (60-115)
[2022-04-18 17:10] LABS: Vancomycin Trough 10.1 mcg/mL (10.0-20.0)
[2022-04-18] MEDS: vancomycin HCL 1,000 MG in 0.9 % Sodium Chloride 250 ML 270 MG IV (17:14)
[2022-04-18 19:44] LABS: Glucose, Whole Blood 156 mg/dL (60-115)
[2022-04-18] MEDS: traZODone HCL 100 MG TABLET 200 MG PO (20:43)
[2022-04-18] MEDS: Mirtazapine 15 MG TABLET PO (20:43)
[2022-04-18] MEDS: Atorvastatin Calcium 20 MG TABLET PO (20:43)
[2022-04-18] MEDS: oxyCODONE HCl Immed Release 5 MG TABLET PO (20:44)
[2022-04-18] MEDS: Amitriptyline HCl 10 MG TABLET PO (20:44)
[2022-04-19 04:00] VITALS: BP 135/75; PULSE 66; RESP 18; TEMP 36.1; O2SAT 96
[2022-04-19] MEDS: Piperacillin Sodium/Tazobactam 3.375 GM in 0.9 % Sodium Chloride 50 ML IV ×4 (05:48→22:35)
[2022-04-19] MEDS: Omeprazole 20 MG CAPSULE.DR PO (05:49)
[2022-04-19] MEDS: oxyCODONE HCl Immed Release 5 MG TABLET PO (05:49)
[2022-04-19 06:14] LABS: Creatinine Clr Calc Pharmacy 49.6; Estimated Glomerular Filt Rate > 60
[2022-04-19 06:50] VITALS: BP 112/63; PULSE 63; RESP 18; TEMP 36.6; O2SAT 96
[2022-04-19 07:11] LABS: Glucose, Whole Blood 148 mg/dL (60-115)
--- NOTE | 2022-04-19 08:34 | PM.PNGS ---
Subjective Subjective Date of Service: 04/19/22 Interval history: Patient reports soreness in the left chest but overall feels improved. GENET is producing minimal serosanguineous fluid. Patient denies any new problems. Physical Exam Vital Signs: Vital Signs: Last Vital Signs Temp 98 F 04/19/22 06:50 Pulse 63 04/19/22 06:50 Resp 18 04/19/22 06:50 BP 112/63 04/19/22 06:50 Pulse Ox 96 04/19/22 06:50 O2 Del Method 04/19/22 06:50 O2 Flow Rate 1 04/17/22 13:25 BMI result Body Mass Index 36.8 Chest: Other: GENET intact; dressings clean and intact. Marked improvement in the erythema noted today. Skin flaps are softer. Resp: Effort & Inspection: normal respiratory effort Skin: Other: warm, dry and no rash. Extrem: General: Yes no clubbing, cyanosis or edema Objective Data Active Medications Amitriptyline HCl (Amitriptyline Hcl 10 Mg Tablet) 10 mg PO BEDTIME [facility] Last Admin: 04/18/22 20:44 Dose: 10 mg Documented By: TUAN Amlodipine Besylate (Amlodipine Besylate 10 Mg Tablet) 10 mg PO DAILY [facility]; Protocol Last Admin: 04/18/22 08:51 Dose: 10 mg Documented By: ANGELA Atorvastatin Calcium (Atorvastatin Calcium 20 Mg Tablet) 20 mg PO BEDTIME [facility] Last Admin: 04/18/22 20:43 Dose: 20 mg Documented By: TUAN Dextrose (Dextrose 50 % 25 Gm/50 Ml Syringe) 25 gm IVPUSH Q15M PRN; Protocol PRN Reason: per Hypoglycemia Standing Ord. Docusate Sodium (Docusate Sodium 100 Mg Capsule) 100 mg PO BID [facility] Last Admin: 04/18/22 20:44 Dose: 100 mg Documented By: TUAN Gabapentin (Gabapentin 400 Mg Capsule) 800 mg PO BID [facility] Last Admin: 04/18/22 20:43 Dose: 800 mg Documented By: TUAN Glucose (Glucose Gel 15 Gm Gel..Gram.) 15 gm PO Q15M PRN; Protocol PRN Reason: per Hypoglycemia Standing Ord. Hydromorphone HCl (Hydromorphone Hcl 1 Mg/Ml Syringe) 0.5 mg IVPUSH Q4H PRN; Protocol PRN Reason: Pain, Severe (Pain Scale 7-10) Last Admin: 04/18/22 23:21 Dose: 0.5 mg Documented By: TUAN Piperacillin Sod/Tazobactam (Sod 3.375 gm/ Sodium Chloride) 50 mls @ 100 mls/hr IV Q6H [facility] Last Infusion: 04/19/22 06:46 Dose: 0 mls/hr Documented By: TUAN Vancomycin HCl 1,500 mg/ (Sodium Chloride) 500 mls @ 333.333 mls/hr IV Q24H [facility] Metoprolol Tartrate (Metoprolol Tartrate 50 Mg Tablet) 50 mg PO BID [facility]; Protocol Last Admin: 04/18/22 20:43 Dose: 50 mg Documented By: TUAN Mirtazapine (Mirtazapine 15 Mg Tablet) 15 mg PO BEDTIME [facility] Last Admin: 04/18/22 20:43 Dose: 15 mg Documented By: TUAN Omeprazole (Omeprazole 20 Mg Capsule.Dr) 20 mg PO DAILY@0630 [facility] Last Admin: 04/19/22 05:49 Dose: 20 mg Documented By: TUAN Oxycodone HCl (Oxycodone Hcl Immed Release 5 Mg Tablet) 5 mg PO Q6H PRN PRN Reason: Pain (Scale Score 4-6) Last Admin: 04/19/22 05:49 Dose: 5 mg Documented By: TUAN Pharmacy Consult (Consult Rx Perform Med Rec) 1 each MISCELLANE ONCE PRN PRN Reason: Consult order Pharmacy Consult (Consult Rx Vancomycin Dosing) 1 each MISCELLANE DAILY PRN PRN Reason: Consult order Polyethylene Glycol (Polyethylene Glycol 3350 17 Gm Powd.Pack) 17 gm PO DAILY PRN PRN Reason: Constipation Last Admin: 04/16/22 21:50 Dose: 17 gm Documented By: CONNOR Sodium Chloride (0.9 % Sodium Chloride Flush 3 Ml Syringe) 3 ml IVFLUSH QSHIFT [facility] Last Admin: 04/18/22 23:24 Dose: 3 ml Documented By: TUAN Trazodone HCl (Trazodone Hcl 100 Mg Tablet) 200 mg PO BEDTIME [facility] Last Admin: 04/18/22 20:43 Dose: 200 mg Documented By: HO.SANNAFA Labs CBC & Chem 7: 04/14/22 06:02 04/19/22 05:29 Labs: Laboratory Results - last 24 hr 04/18/22 04/18/22 04/18/22 11:21 16:04 16:08 Estim Creat Clear Calc Estimated GFR POC Glucose 144 H 133 H Vancomycin Trough 10.1 04/18/22 04/19/22 04/19/22 19:21 05:29 06:50 Estim Creat Clear Calc 49.6 Estimated GFR > 60 POC Glucose 156 H 148 H Vancomycin Trough Microbiology Microbiology Results: Microbiology 04/17/22 Unknown Gram Stain - Final Chest Routine Culture - Final No growth after 2 days 04/13/22 16:41 Blood Culture - Final Blood - Venous No growth after 5 days. 04/13/22 16:41 Blood Culture - Final Blood - Venous No growth after 5 days. Procedures Date of Service Date of Service: 04/19/22 Progress Note: A&P Assessment and plan (1) Cellulitis: Status: Acute (2) S/P bilateral mastectomy: Status: Acute Plan POD #2 s/p open drainage of left chest wall seroma. Negative right chest wall drainage. Wounds are improved today and patient seems much more comfortable. Will continue to monitor GENET output and cellulitis. Continue current antibiotics. Wound cultures of seroma negative. Time Spent With Patient Time: Total time spent is greater than 50% in coordination of care (as documented) at patient's floor/unit and/or counseling patient: Quality Stroke Does the patient have a stroke diagnosis?: No VTE Prior VTE?: No VTE Risk Level:: Medical - moderate - high VTE Device Contraindication: N/A - Device Ordered VTE Drug Contraindication: N/A - Med Ordered
[2022-04-19] MEDS: HYDROmorphone HCl 1 MG/ML SYRINGE 0.5 MG IVPUSH ×3 (09:24→20:15)
[2022-04-19] MEDS: Gabapentin 400 MG CAPSULE 800 MG PO ×2 (09:27→20:09)
[2022-04-19] MEDS: Docusate Sodium 100 MG CAPSULE PO ×2 (09:27→20:09)
[2022-04-19] MEDS: amLODIPine Besylate 10 MG TABLET PO (09:27)
[2022-04-19] MEDS: Metoprolol Tartrate 50 MG TABLET PO ×2 (09:27→20:08)
[2022-04-19] MEDS: 0.9 % Sodium Chloride Flush 3 ML SYRINGE IVFLUSH ×3 (09:28→20:09)
--- NOTE | 2022-04-19 10:04 | HE.PHANOTE ---
Vancomycin Dosing Addendum Vancomycin dose increased yesterday to 1500 mg q24h for predicted auc 557, next level 04/20.
[2022-04-19 10:55] VITALS: BP 132/87; PULSE 68; RESP 18; TEMP 36.6; O2SAT 95
[2022-04-19 11:20] LABS: Glucose, Whole Blood 125 mg/dL (60-115)
[2022-04-19 15:04] VITALS: BP 142/64; PULSE 74; RESP 18; TEMP 36.6; O2SAT 97
[2022-04-19] MEDS: vancomycin HCL 1,500 MG in 0.9 % Sodium Chloride 500 ML 333.33 MG IV (17:48)
[2022-04-19 20:00] VITALS: BP 132/69; PULSE 74; RESP 18; TEMP 36.5; O2SAT 97
[2022-04-19] MEDS: traZODone HCL 100 MG TABLET 200 MG PO (20:09)
[2022-04-19] MEDS: Amitriptyline HCl 10 MG TABLET PO (20:09)
[2022-04-19] MEDS: Mirtazapine 15 MG TABLET PO (20:09)
[2022-04-19] MEDS: Atorvastatin Calcium 20 MG TABLET PO (20:09)
[2022-04-19 23:49] VITALS: BP 99/61; PULSE 52; RESP 16; TEMP 36.6; O2SAT 95
[2022-04-20 03:34] VITALS: BP 132/60; PULSE 63; RESP 17; TEMP 36.4; O2SAT 94
[2022-04-20] MEDS: Piperacillin Sodium/Tazobactam 3.375 GM in 0.9 % Sodium Chloride 50 ML IV ×4 (05:18→23:11)
[2022-04-20] MEDS: Omeprazole 20 MG CAPSULE.DR PO (05:18)
[2022-04-20 06:53] VITALS: BP 141/73; PULSE 70; RESP 16; TEMP 36.6; O2SAT 97
[2022-04-20] MEDS: Docusate Sodium 100 MG CAPSULE PO ×2 (07:25→20:17)
[2022-04-20] MEDS: Metoprolol Tartrate 50 MG TABLET PO ×2 (07:25→20:17)
[2022-04-20] MEDS: amLODIPine Besylate 10 MG TABLET PO (07:25)
[2022-04-20] MEDS: Gabapentin 400 MG CAPSULE 800 MG PO ×2 (07:25→20:17)
[2022-04-20] MEDS: 0.9 % Sodium Chloride Flush 3 ML SYRINGE IVFLUSH ×3 (07:26→20:17)
[2022-04-20] MEDS: HYDROmorphone HCl 1 MG/ML SYRINGE 0.5 MG IVPUSH ×3 (07:31→18:24)
[2022-04-20 07:36] LABS: Glucose, Whole Blood 117 mg/dL (60-115)
[2022-04-20 07:44] LABS: Creatinine Clr Calc Pharmacy 42.9; Estimated Glomerular Filt Rate 55
--- NOTE | 2022-04-20 08:49 | PM.PNGS ---
Subjective Subjective Date of Service: 04/20/22 Interval history: says she is 'OK no new complaints some pain on both incisions on chest Physical Exam Vital Signs: Vital Signs: Last Vital Signs Temp 98 F 04/20/22 06:53 Pulse 70 04/20/22 06:53 Resp 16 04/20/22 06:53 BP 141/73 H 04/20/22 06:53 Pulse Ox 97 04/20/22 06:53 O2 Del Method 04/20/22 06:53 O2 Flow Rate 1 04/17/22 13:25 BMI result Body Mass Index 36.8 Const: General: comfortable and no acute distress Chest: Other: incisions on both chests with sutures intact, GENET drain on left with scanty output sero-sanguinoud, no cellulitis Resp: Effort & Inspection: normal respiratory effort Cardio: Rate: regular rate Objective Data Active Medications Albuterol Sulfate (Albuterol Sulfate 90 Mcg 8 Gm Inhaler) 1 puff INHALE RQ4H PRN PRN Reason: Shortness of Breath/Wheezing Amitriptyline HCl (Amitriptyline Hcl 10 Mg Tablet) 10 mg PO BEDTIME [facility] Last Admin: 04/19/22 20:09 Dose: 10 mg Documented By: AUSTIN Amlodipine Besylate (Amlodipine Besylate 10 Mg Tablet) 10 mg PO DAILY [facility]; Protocol Last Admin: 04/20/22 07:25 Dose: 10 mg Documented By: ANNALISA Atorvastatin Calcium (Atorvastatin Calcium 20 Mg Tablet) 20 mg PO BEDTIME [facility] Last Admin: 04/19/22 20:09 Dose: 20 mg Documented By: AUSTIN Dextrose (Dextrose 50 % 25 Gm/50 Ml Syringe) 25 gm IVPUSH Q15M PRN; Protocol PRN Reason: per Hypoglycemia Standing Ord. Docusate Sodium (Docusate Sodium 100 Mg Capsule) 100 mg PO BID [facility] Last Admin: 04/20/22 07:25 Dose: 100 mg Documented By: ANNALISA Gabapentin (Gabapentin 400 Mg Capsule) 800 mg PO BID [facility] Last Admin: 04/20/22 07:25 Dose: 800 mg Documented By: ANNALISA Glucose (Glucose Gel 15 Gm Gel..Gram.) 15 gm PO Q15M PRN; Protocol PRN Reason: per Hypoglycemia Standing Ord. Hydromorphone HCl (Hydromorphone Hcl 1 Mg/Ml Syringe) 0.5 mg IVPUSH Q4H PRN; Protocol PRN Reason: Pain, Severe (Pain Scale 7-10) Last Admin: 04/20/22 07:31 Dose: 0.5 mg Documented By: ANNALISA Piperacillin Sod/Tazobactam (Sod 3.375 gm/ Sodium Chloride) 50 mls @ 100 mls/hr IV Q6H [facility] Last Infusion: 04/20/22 06:07 Dose: 0 mls/hr Documented By: AUSTIN Vancomycin HCl 1,500 mg/ (Sodium Chloride) 500 mls @ 333.333 mls/hr IV Q24H [facility] Last Infusion: 04/19/22 19:26 Dose: 0 mls/hr Documented By: AUSTIN Metoprolol Tartrate (Metoprolol Tartrate 50 Mg Tablet) 50 mg PO BID [facility]; Protocol Last Admin: 04/20/22 07:25 Dose: 50 mg Documented By: ANNALISA Mirtazapine (Mirtazapine 15 Mg Tablet) 15 mg PO BEDTIME [facility] Last Admin: 04/19/22 20:09 Dose: 15 mg Documented By: AUSTIN Omeprazole (Omeprazole 20 Mg Capsule.Dr) 20 mg PO DAILY@0630 [facility] Last Admin: 04/20/22 05:18 Dose: 20 mg Documented By: AUSTIN Pharmacy Consult (Consult Rx Perform Med Rec) 1 each MISCELLANE ONCE PRN PRN Reason: Consult order Pharmacy Consult (Consult Rx Vancomycin Dosing) 1 each MISCELLANE DAILY PRN PRN Reason: Consult order Polyethylene Glycol (Polyethylene Glycol 3350 17 Gm Powd.Pack) 17 gm PO DAILY PRN PRN Reason: Constipation Last Admin: 04/16/22 21:50 Dose: 17 gm Documented By: CONNOR Sodium Chloride (0.9 % Sodium Chloride Flush 3 Ml Syringe) 3 ml IVFLUSH QSHIFT [facility] Last Admin: 04/20/22 07:26 Dose: 3 ml Documented By: ANNALISA Trazodone HCl (Trazodone Hcl 100 Mg Tablet) 200 mg PO BEDTIME [facility] Last Admin: 04/19/22 20:09 Dose: 200 mg Documented By: AUSTIN Labs CBC & Chem 7: 04/14/22 06:02 04/20/22 05:21 Labs: Laboratory Results - last 24 hr 04/19/22 04/20/22 04/20/22 10:56 05:21 06:57 Estim Creat Clear Calc 42.9 Estimated GFR 55 POC Glucose 125 H 117 H Microbiology Microbiology Results: Microbiology 04/17/22 Unknown Gram Stain - Final Chest Routine Culture - Final No growth after 2 days Procedures Date of Service Date of Service: 04/20/22 Progress Note: A&P Assessment and plan (1) Cellulitis: Status: Acute Assessment and Plan: both dressings changed cellulitis improving after debridement continue abx doing well Time Spent With Patient Time: Total time spent is greater than 50% in coordination of care (as documented) at patient's floor/unit and/or counseling patient: Quality Stroke Does the patient have a stroke diagnosis?: No VTE Prior VTE?: No VTE Risk Level:: Medical - moderate - high VTE Device Contraindication: N/A - Device Ordered VTE Drug Contraindication: N/A - Med Ordered
[2022-04-20 10:58] VITALS: BP 155/68; PULSE 72; RESP 18; TEMP 36.1; O2SAT 98
[2022-04-20 11:26] LABS: Glucose, Whole Blood 134 mg/dL (60-115)
[2022-04-20 15:44] LABS: Glucose, Whole Blood 115 mg/dL (60-115)
[2022-04-20 16:00] VITALS: BP 149/77; PULSE 72; RESP 18; TEMP 36.4; O2SAT 97
[2022-04-20 16:50] LABS: Vancomycin Random 15.4 mcg/mL (15-20)
[2022-04-20] MEDS: vancomycin HCL 1,250 MG in 0.9 % Sodium Chloride 250 ML 166.67 MG IV (17:42)
[2022-04-20 20:00] VITALS: BP 123/89; PULSE 74; RESP 18; TEMP 36.6; O2SAT 95
[2022-04-20 20:05] LABS: Glucose, Whole Blood 126 mg/dL (60-115)
[2022-04-20] MEDS: Mirtazapine 15 MG TABLET PO (20:17)
[2022-04-20] MEDS: Amitriptyline HCl 10 MG TABLET PO (20:17)
[2022-04-20] MEDS: Atorvastatin Calcium 20 MG TABLET PO (20:17)
[2022-04-20] MEDS: traZODone HCL 100 MG TABLET 200 MG PO (20:17)
[2022-04-21] VITALS (7 sets, daily range): BP systolic 113–157; BP diastolic 59–77; PULSE 60–73; RESP 15–18; TEMP 36.3–36.8; O2SAT 93–98
[2022-04-21] MEDS: Piperacillin Sodium/Tazobactam 3.375 GM in 0.9 % Sodium Chloride 50 ML IV ×4 (05:17→22:56)
[2022-04-21] MEDS: Omeprazole 20 MG CAPSULE.DR PO (05:17)
[2022-04-21 06:32] LABS: Creatinine Clr Calc Pharmacy 39.7; Estimated Glomerular Filt Rate 51
[2022-04-21] MEDS: amLODIPine Besylate 10 MG TABLET PO (07:22)
[2022-04-21] MEDS: Docusate Sodium 100 MG CAPSULE PO ×2 (07:22→20:38)
[2022-04-21] MEDS: 0.9 % Sodium Chloride Flush 3 ML SYRINGE IVFLUSH ×3 (07:22→20:38)
[2022-04-21] MEDS: Metoprolol Tartrate 50 MG TABLET PO ×2 (07:22→20:38)
[2022-04-21] MEDS: Gabapentin 400 MG CAPSULE 800 MG PO ×2 (07:22→20:38)
[2022-04-21] MEDS: HYDROmorphone HCl 1 MG/ML SYRINGE 0.5 MG IVPUSH ×2 (07:28→11:43)
--- NOTE | 2022-04-21 09:38 | P.PNGS_ITS ---
Subjective Subjective Date of Service: 04/21/22 Interval history: no complaint no significant pain on mastectomy sites scanty output from GENET drain on left Physical Exam Vital Signs: Vital Signs: Last Vital Signs Temp 97.3 F 04/21/22 07:50 Pulse 68 04/21/22 07:50 Resp 15 04/21/22 07:50 BP 139/67 04/21/22 07:50 Pulse Ox 97 04/21/22 07:50 O2 Del Method 04/21/22 07:50 O2 Flow Rate 1 04/17/22 13:25 BMI result Body Mass Index 36.8 Const: General: comfortable and no acute distress Chest: Other: incisions on both left and right chest are well healing, no significant cellulitis, GENET drain in place on the left with very scanty output Resp: Effort & Inspection: normal respiratory effort Cardio: Rate: regular rate Objective Data Active Medications Albuterol Sulfate (Albuterol Sulfate 90 Mcg 8 Gm Inhaler) 1 puff INHALE RQ4H PRN PRN Reason: Shortness of Breath/Wheezing Amitriptyline HCl (Amitriptyline Hcl 10 Mg Tablet) 10 mg PO BEDTIME [facility] Last Admin: 04/20/22 20:17 Dose: 10 mg Documented By: AUSTIN Amlodipine Besylate (Amlodipine Besylate 10 Mg Tablet) 10 mg PO DAILY [facility]; Protocol Last Admin: 04/21/22 07:22 Dose: 10 mg Documented By: ANNALISA Atorvastatin Calcium (Atorvastatin Calcium 20 Mg Tablet) 20 mg PO BEDTIME [facility] Last Admin: 04/20/22 20:17 Dose: 20 mg Documented By: AUSTIN Dextrose (Dextrose 50 % 25 Gm/50 Ml Syringe) 25 gm IVPUSH Q15M PRN; Protocol PRN Reason: per Hypoglycemia Standing Ord. Docusate Sodium (Docusate Sodium 100 Mg Capsule) 100 mg PO BID [facility] Last Admin: 04/21/22 07:22 Dose: 100 mg Documented By: ANNALISA Gabapentin (Gabapentin 400 Mg Capsule) 800 mg PO BID [facility] Last Admin: 04/21/22 07:22 Dose: 800 mg Documented By: ANNALISA Glucose (Glucose Gel 15 Gm Gel..Gram.) 15 gm PO Q15M PRN; Protocol PRN Reason: per Hypoglycemia Standing Ord. Hydromorphone HCl (Hydromorphone Hcl 1 Mg/Ml Syringe) 0.5 mg IVPUSH Q4H PRN; Protocol PRN Reason: Pain, Severe (Pain Scale 7-10) Last Admin: 04/21/22 07:28 Dose: 0.5 mg Documented By: ANNALISA Piperacillin Sod/Tazobactam (Sod 3.375 gm/ Sodium Chloride) 50 mls @ 100 mls/hr IV Q6H [facility] Last Infusion: 04/21/22 05:56 Dose: 0 mls/hr Documented By: CONNOR Vancomycin HCl 1,250 mg/ (Sodium Chloride) 250 mls @ 166.667 mls/hr IV Q24H [facility] Last Infusion: 04/20/22 19:21 Dose: 0 mls/hr Documented By: AUSTIN Metoprolol Tartrate (Metoprolol Tartrate 50 Mg Tablet) 50 mg PO BID [facility]; Protocol Last Admin: 04/21/22 07:22 Dose: 50 mg Documented By: ANNALISA Mirtazapine (Mirtazapine 15 Mg Tablet) 15 mg PO BEDTIME [facility] Last Admin: 04/20/22 20:17 Dose: 15 mg Documented By: AUSTIN Omeprazole (Omeprazole 20 Mg Capsule.Dr) 20 mg PO DAILY@0630 [facility] Last Admin: 04/21/22 05:17 Dose: 20 mg Documented By: AUSTIN Pharmacy Consult (Consult Rx Perform Med Rec) 1 each MISCELLANE ONCE PRN PRN Reason: Consult order Pharmacy Consult (Consult Rx Vancomycin Dosing) 1 each MISCELLANE DAILY PRN PRN Reason: Consult order Polyethylene Glycol (Polyethylene Glycol 3350 17 Gm Powd.Pack) 17 gm PO DAILY PRN PRN Reason: Constipation Last Admin: 04/16/22 21:50 Dose: 17 gm Documented By: CONNOR Sodium Chloride (0.9 % Sodium Chloride Flush 3 Ml Syringe) 3 ml IVFLUSH QSHIFT [facility] Last Admin: 04/21/22 07:22 Dose: 3 ml Documented By: ANNALISA Trazodone HCl (Trazodone Hcl 100 Mg Tablet) 200 mg PO BEDTIME [facility] Last Admin: 04/20/22 20:17 Dose: 200 mg Documented By: AUSTIN Labs CBC & Chem 7: 04/14/22 06:02 04/21/22 05:44 Labs: Laboratory Results - last 24 hr 04/20/22 04/20/22 04/20/22 10:58 15:23 16:14 Estim Creat Clear Calc Estimated GFR POC Glucose 134 H 115 Random Vancomycin 15.4 04/20/22 04/21/22 19:46 05:44 Estim Creat Clear Calc 39.7 Estimated GFR 51 POC Glucose 126 H Random Vancomycin Procedures Date of Service Date of Service: 04/21/22 Progress Note: A&P Assessment and plan (1) Cellulitis of chest wall: Status: Acute Assessment and Plan: status post debridement of both mastectomy sites incisions healing well no significant cellulitis GENET drain with scanty on IV antibiotics Time Spent With Patient Time: Total time spent is greater than 50% in coordination of care (as documented) at patient's floor/unit and/or counseling patient: Quality Stroke Does the patient have a stroke diagnosis?: No VTE Prior VTE?: No VTE Risk Level:: Medical - moderate - high VTE Device Contraindication: N/A - Device Ordered VTE Drug Contraindication: N/A - Med Ordered
[2022-04-21 16:20] LABS: Glucose, Whole Blood 95 mg/dL (60-115)
[2022-04-21 16:38] LABS: Vancomycin Random 13.6 mcg/mL (15-20)
[2022-04-21] MEDS: oxyCODONE HCl Immed Release 5 MG TABLET 10 MG PO (17:24)
[2022-04-21] MEDS: vancomycin HCL 1,250 MG in 0.9 % Sodium Chloride 250 ML 166.67 MG IV (19:05)
--- NOTE | 2022-04-21 19:11 | PC.NURSE ---
pt have recent hx of double Mastectomy with removal of lymph nodes, Surgeon okayed peripheral in foot,. 22 gauge in right foot
[2022-04-21 20:07] LABS: Glucose, Whole Blood 164 mg/dL (60-115)
[2022-04-21] MEDS: traZODone HCL 100 MG TABLET 200 MG PO (20:37)
[2022-04-21] MEDS: Atorvastatin Calcium 20 MG TABLET PO (20:37)
[2022-04-21] MEDS: Mirtazapine 15 MG TABLET PO (20:38)
[2022-04-21] MEDS: Amitriptyline HCl 10 MG TABLET PO (20:38)
[2022-04-21] MEDS: HYDROmorphone HCl 0.5 MG/0.5 ML SYRINGE IVPUSH (20:38)
[2022-04-22] MEDS: HYDROmorphone HCl 0.5 MG/0.5 ML SYRINGE IVPUSH ×4 (02:07→21:02)
[2022-04-22 04:00] VITALS: BP 101/65; PULSE 57; RESP 16; TEMP 36.2; O2SAT 94
[2022-04-22] MEDS: Omeprazole 20 MG CAPSULE.DR PO (05:15)
[2022-04-22] MEDS: Piperacillin Sodium/Tazobactam 3.375 GM in 0.9 % Sodium Chloride 50 ML IV ×4 (05:15→23:02)
[2022-04-22 06:09] LABS: Creatinine Clr Calc Pharmacy 38.6; Estimated Glomerular Filt Rate 49
[2022-04-22 08:00] VITALS: BP 136/76; PULSE 68; RESP 16; TEMP 36.1; O2SAT 92
[2022-04-22] MEDS: oxyCODONE HCl Immed Release 5 MG TABLET 10 MG PO ×3 (08:56→23:03)
[2022-04-22] MEDS: Docusate Sodium 100 MG CAPSULE PO ×2 (08:57→21:01)
[2022-04-22] MEDS: Gabapentin 400 MG CAPSULE 800 MG PO ×2 (08:57→21:01)
[2022-04-22] MEDS: Metoprolol Tartrate 50 MG TABLET PO ×2 (08:57→21:01)
[2022-04-22] MEDS: amLODIPine Besylate 10 MG TABLET PO (08:57)
[2022-04-22] MEDS: 0.9 % Sodium Chloride Flush 3 ML SYRINGE IVFLUSH ×3 (08:58→21:02)
--- NOTE | 2022-04-22 10:15 | P.PNGS_ITS ---
Subjective Subjective Date of Service: 04/22/22 Interval history: according to daughter, patient still has sharp pains on left chest incision otherwise doing well no new complaints no fever Physical Exam Vital Signs: Vital Signs: Last Vital Signs Temp 96.9 F 04/22/22 08:00 Pulse 68 04/22/22 08:00 Resp 16 04/22/22 08:00 BP 136/76 04/22/22 08:00 Pulse Ox 92 04/22/22 08:00 O2 Del Method 04/22/22 08:00 O2 Flow Rate 1 04/17/22 13:25 BMI result Body Mass Index 36.8 Const: General: comfortable and no acute distress Chest: Other: both incisions pain, healing well, sutures intact, GENET drain in the left with very scanty output, cellulitis much improved Resp: Effort & Inspection: normal respiratory effort Cardio: Rate: regular rate GI: Palpation (GI): Soft to palpation and nontender Objective Data Active Medications Albuterol Sulfate (Albuterol Sulfate 90 Mcg 8 Gm Inhaler) 1 puff INHALE RQ4H PRN PRN Reason: Shortness of Breath/Wheezing Amitriptyline HCl (Amitriptyline Hcl 10 Mg Tablet) 10 mg PO BEDTIME [facility] Last Admin: 04/21/22 20:38 Dose: 10 mg Documented By: AUSTIN Amlodipine Besylate (Amlodipine Besylate 10 Mg Tablet) 10 mg PO DAILY [facility]; Protocol Last Admin: 04/22/22 08:57 Dose: 10 mg Documented By: CELESTE Atorvastatin Calcium (Atorvastatin Calcium 20 Mg Tablet) 20 mg PO BEDTIME [facility] Last Admin: 04/21/22 20:37 Dose: 20 mg Documented By: AUSTIN Dextrose (Dextrose 50 % 25 Gm/50 Ml Syringe) 25 gm IVPUSH Q15M PRN; Protocol PRN Reason: per Hypoglycemia Standing Ord. Docusate Sodium (Docusate Sodium 100 Mg Capsule) 100 mg PO BID [facility] Last Admin: 04/22/22 08:57 Dose: 100 mg Documented By: CELESTE Gabapentin (Gabapentin 400 Mg Capsule) 800 mg PO BID [facility] Last Admin: 04/22/22 08:57 Dose: 800 mg Documented By: CELESTE Glucose (Glucose Gel 15 Gm Gel..Gram.) 15 gm PO Q15M PRN; Protocol PRN Reason: per Hypoglycemia Standing Ord. Hydromorphone HCl (Hydromorphone Hcl 0.5 Mg/0.5 Ml Syringe) 0.5 mg IVPUSH Q4H PRN; Protocol PRN Reason: Pain, Severe (Pain Scale 7-10) Last Admin: 04/22/22 02:07 Dose: 0.5 mg Documented By: AUSTIN Piperacillin Sod/Tazobactam (Sod 3.375 gm/ Sodium Chloride) 50 mls @ 100 mls/hr IV Q6H [facility] Last Infusion: 04/22/22 05:50 Dose: 0 mls/hr Documented By: AUSTIN Vancomycin HCl 1,250 mg/ (Sodium Chloride) 250 mls @ 166.667 mls/hr IV Q24H [facility] Last Infusion: 04/21/22 20:47 Dose: 0 mls/hr Documented By: AUSTIN Metoprolol Tartrate (Metoprolol Tartrate 50 Mg Tablet) 50 mg PO BID [facility]; Protocol Last Admin: 04/22/22 08:57 Dose: 50 mg Documented By: CELESTE Mirtazapine (Mirtazapine 15 Mg Tablet) 15 mg PO BEDTIME [facility] Last Admin: 04/21/22 20:38 Dose: 15 mg Documented By: AUSTIN Omeprazole (Omeprazole 20 Mg Capsule.Dr) 20 mg PO DAILY@0630 [facility] Last Admin: 04/22/22 05:15 Dose: 20 mg Documented By: AUSTIN Oxycodone HCl (Oxycodone Hcl Immed Release 5 Mg Tablet) 10 mg PO Q6H PRN PRN Reason: Pain, Moderate (Pain Scale 4-6 Last Admin: 04/22/22 08:56 Dose: 10 mg Documented By: CELESTE Pharmacy Consult (Consult Rx Perform Med Rec) 1 each MISCELLANE ONCE PRN PRN Reason: Consult order Pharmacy Consult (Consult Rx Vancomycin Dosing) 1 each MISCELLANE DAILY PRN PRN Reason: Consult order Polyethylene Glycol (Polyethylene Glycol 3350 17 Gm Powd.Pack) 17 gm PO DAILY PRN PRN Reason: Constipation Last Admin: 04/16/22 21:50 Dose: 17 gm Documented By: BRIGITTEQC Sodium Chloride (0.9 % Sodium Chloride Flush 3 Ml Syringe) 3 ml IVFLUSH QSHIFT [facility] Last Admin: 04/22/22 08:58 Dose: 3 ml Documented By: CELESTE Trazodone HCl (Trazodone Hcl 100 Mg Tablet) 200 mg PO BEDTIME [facility] Last Admin: 04/21/22 20:37 Dose: 200 mg Documented By: AUSTIN Labs CBC & Chem 7: 04/14/22 06:02 04/22/22 05:23 Labs: Laboratory Results - last 24 hr 04/21/22 04/21/22 04/21/22 16:06 16:16 20:03 Estim Creat Clear Calc Estimated GFR POC Glucose 95 164 H Random Vancomycin 13.6 L 04/22/22 05:23 Estim Creat Clear Calc 38.6 Estimated GFR 49 POC Glucose Random Vancomycin Procedures Date of Service Date of Service: 04/22/22 Progress Note: A&P Assessment and plan (1) Cellulitis: Status: Acute Assessment and Plan: both mastectomy sites look clean, without significant cellulitis GENET drain with very scanty output dressings on both sides changed patient still complains of sharp pains occasionally especially on the left - on pain meds Time Spent With Patient Time: Total time spent is greater than 50% in coordination of care (as documented) at patient's floor/unit and/or counseling patient: Quality Stroke Does the patient have a stroke diagnosis?: No VTE Prior VTE?: No VTE Risk Level:: Medical - moderate - high VTE Device Contraindication: N/A - Device Ordered VTE Drug Contraindication: N/A - Med Ordered
[2022-04-22 11:29] VITALS: BP 119/67; PULSE 60; RESP 16; TEMP 36.5; O2SAT 96
[2022-04-22 15:28] VITALS: BP 128/63; PULSE 86; RESP 16; TEMP 36.2; O2SAT 97
--- NOTE | 2022-04-22 16:25 | HE.PHANOTE ---
Vancomycin Dosing Addendum Patients level came back today at 13.6 mg/L. Down from 15.4 mg/L . patients dose was just decreased by 250mg, therefore I believe the drop is due to the dose decrease. will continue dose of 1250mg at this time to see if level will stabilize. Will monitor kidney function in the morning to ensure dose does not become toxic. Insight suggests decreasing dose to 1000 mg, however a random level will be pulled tomorrow to see if level continues to decrease. next draw 04/22 @1600.
[2022-04-22] MEDS: vancomycin HCL 1,250 MG in 0.9 % Sodium Chloride 250 ML 166.67 MG IV (16:49)
[2022-04-22 19:55] VITALS: BP 138/81; PULSE 69; RESP 18; TEMP 36.7; O2SAT 97
[2022-04-22] MEDS: Mirtazapine 15 MG TABLET PO (21:00)
[2022-04-22] MEDS: polyethylene glycoL 3350 17 GM POWD.PACK PO (21:01)
[2022-04-22] MEDS: Atorvastatin Calcium 20 MG TABLET PO (21:01)
[2022-04-22] MEDS: Amitriptyline HCl 10 MG TABLET PO (21:02)
[2022-04-22] MEDS: traZODone HCL 100 MG TABLET 200 MG PO (21:02)
[2022-04-23] VITALS (8 sets, daily range): BP systolic 113–143; BP diastolic 59–94; PULSE 60–69; RESP 16–19; TEMP 36.1–36.9; O2SAT 95–97
[2022-04-23] MEDS: HYDROmorphone HCl 0.5 MG/0.5 ML SYRINGE IVPUSH ×2 (04:01→15:03)
[2022-04-23] MEDS: Piperacillin Sodium/Tazobactam 3.375 GM in 0.9 % Sodium Chloride 50 ML IV ×2 (04:02→11:34)
[2022-04-23] MEDS: Omeprazole 20 MG CAPSULE.DR PO (05:26)
[2022-04-23] MEDS: oxyCODONE HCl Immed Release 5 MG TABLET 10 MG PO ×3 (05:26→18:14)
[2022-04-23 07:25] LABS: Glucose, Whole Blood 102 mg/dL (60-115)
--- NOTE | 2022-04-23 09:26 | P.PNGS_ITS ---
Subjective Subjective Date of Service: 04/23/22 <Halley Haque PA-C - Last Filed: 04/23/22 09:39> 04/23/22 <Renard Malik MD - Last Filed: 04/23/22 14:12> Interval history: Per the daughter, the patient continues to have pain at left mastectomy site and is uncomfortable and was even unable to sleep last night due to pain. Was sleeping soundly this morning. The daughter continues to express concern about her going home and coming back with the transition to oral antibiotics. States this is a lot of pressure on her and is tearful during visit. Also states she has a tough decision to make when discussing further plan and discharge plans. <Halley Haque PA-C - Last Filed: 04/23/22 09:39> Physical Exam Vital Signs: Vital Signs: Last Vital Signs Temp 97.6 F 04/23/22 07:05 Pulse 60 04/23/22 07:05 Resp 18 04/23/22 07:05 BP 126/59 L 04/23/22 07:05 Pulse Ox 96 04/23/22 07:05 O2 Del Method 04/23/22 07:05 O2 Flow Rate 1 04/17/22 13:25 BMI result Body Mass Index 36.8 <Halley Haque PA-C - Last Filed: 04/23/22 09:39> Const: General: comfortable, no acute distress and alert <Halley arguello PA-C - Last Filed: 04/23/22 09:39> Orientation/consciousness: patient oriented x3 <Halley Haque PA-C - Last Filed: 04/23/22 09:39> Chest: Other: right mastectomy site without any erythema; left site very little erythema persists, induration significantly improved, only a little remains into axilla, GENET drain with scanty serosanguineous output <ARON Benítez Last Filed: 04/23/22 09:39> Skin: General skin exam: no rashes or lesions noted <ARON Benítez Last Filed: 04/23/22 09:39> Neuro: General: patient oriented x3 <ARON Benítez Last Filed: 04/23/22 09:39> Extrem: General: Yes no clubbing, cyanosis or edema <Halley Haque PA-C - Last Filed: 04/23/22 09:39> Objective Data Active Medications Albuterol Sulfate (Albuterol Sulfate 90 Mcg 8 Gm Inhaler) 1 puff INHALE RQ4H PRN PRN Reason: Shortness of Breath/Wheezing Amitriptyline HCl (Amitriptyline Hcl 10 Mg Tablet) 10 mg PO BEDTIME [facility] Last Admin: 04/22/22 21:02 Dose: 10 mg Documented By: KRISTINA Amlodipine Besylate (Amlodipine Besylate 10 Mg Tablet) 10 mg PO DAILY [facility]; Protocol Last Admin: 04/22/22 08:57 Dose: 10 mg Documented By: CELESTE Atorvastatin Calcium (Atorvastatin Calcium 20 Mg Tablet) 20 mg PO BEDTIME [facility] Last Admin: 04/22/22 21:01 Dose: 20 mg Documented By: KRISTINA Dextrose (Dextrose 50 % 25 Gm/50 Ml Syringe) 25 gm IVPUSH Q15M PRN; Protocol PRN Reason: per Hypoglycemia Standing Ord. Docusate Sodium (Docusate Sodium 100 Mg Capsule) 100 mg PO BID [facility] Last Admin: 04/22/22 21:01 Dose: 100 mg Documented By: KRISTINA Gabapentin (Gabapentin 400 Mg Capsule) 800 mg PO BID [facility] Last Admin: 04/22/22 21:01 Dose: 800 mg Documented By: KRISTINA Glucose (Glucose Gel 15 Gm Gel..Gram.) 15 gm PO Q15M PRN; Protocol PRN Reason: per Hypoglycemia Standing Ord. Hydromorphone HCl (Hydromorphone Hcl 0.5 Mg/0.5 Ml Syringe) 0.5 mg IVPUSH Q4H PRN; Protocol PRN Reason: Pain, Severe (Pain Scale 7-10) Last Admin: 04/23/22 04:01 Dose: 0.5 mg Documented By: KRISTINA Piperacillin Sod/Tazobactam (Sod 3.375 gm/ Sodium Chloride) 50 mls @ 100 mls/hr IV Q6H [facility] Last Infusion: 04/23/22 05:08 Dose: 0 mls/hr Documented By: KRISTINA Vancomycin HCl 1,250 mg/ (Sodium Chloride) 250 mls @ 166.667 mls/hr IV Q24H [facility] Last Infusion: 04/22/22 19:00 Dose: 0 mls/hr Documented By: KRISTINA Metoprolol Tartrate (Metoprolol Tartrate 50 Mg Tablet) 50 mg PO BID [facility]; Protocol Last Admin: 04/22/22 21:01 Dose: 50 mg Documented By: KRISTINA Mirtazapine (Mirtazapine 15 Mg Tablet) 15 mg PO BEDTIME [facility] Last Admin: 04/22/22 21:00 Dose: 15 mg Documented By: KRISTINA Omeprazole (Omeprazole 20 Mg Capsule.Dr) 20 mg PO DAILY@0630 [facility] Last Admin: 04/23/22 05:26 Dose: 20 mg Documented By: KRISTINA Oxycodone HCl (Oxycodone Hcl Immed Release 5 Mg Tablet) 10 mg PO Q6H PRN PRN Reason: Pain, Moderate (Pain Scale 4-6 Last Admin: 04/23/22 05:26 Dose: 10 mg Documented By: KRISTINA Pharmacy Consult (Consult Rx Perform Med Rec) 1 each MISCELLANE ONCE PRN PRN Reason: Consult order Pharmacy Consult (Consult Rx Vancomycin Dosing) 1 each MISCELLANE DAILY PRN PRN Reason: Consult order Polyethylene Glycol (Polyethylene Glycol 3350 17 Gm Powd.Pack) 17 gm PO DAILY PRN PRN Reason: Constipation Last Admin: 04/22/22 21:01 Dose: 17 gm Documented By: KRISTINA Sodium Chloride (0.9 % Sodium Chloride Flush 3 Ml Syringe) 3 ml IVFLUSH QSHIFT [facility] Last Admin: 04/22/22 21:02 Dose: 3 ml Documented By: KRISTINA Trazodone HCl (Trazodone Hcl 100 Mg Tablet) 200 mg PO BEDTIME [facility] Last Admin: 04/22/22 21:02 Dose: 200 mg Documented By: KRISTINA <Halley Haque PA-C - Last Filed: 04/23/22 09:39> Labs CBC & Chem 7: : 04/14/22 06:02 04/23/22 10:26 <Halley Haque PA-C - Last Filed: 04/23/22 09:39> Labs: Laboratory Results - last 24 hr 04/23/22 07:04 POC Glucose 102 <Halley Haque PA-C - Last Filed: 04/23/22 09:39> Procedures Date of Service Date of Service: 04/23/22 <Halley Haque PA-C - Last Filed: 04/23/22 09:39> Progress Note: A&P Assessment and plan (1) Cellulitis: Status: Acute <ARON Benítez Last Filed: 04/23/22 09:39> (2) S/P bilateral mastectomy: Status: Acute <Halley Haque PA-C - Last Filed: 04/23/22 09:39> (3) Seroma: Status: Acute <ARON Benítez Last Filed: 04/23/22 09:39> Assessment and Plan: 71-year-old female patient presenting with recurrent cellulitis of the chest wall left greater than right. Ultrasound seemed to indicate complex col lection below the flaps perhaps blood or loculated fluid. She is POD #5 s/p incision and drainage bilateral chest wall found to have seroma of left chest wall, negative I&D of right. All wound cultures are negative to date. GENET drain on left draining scanty serosanguineous fluid. Will keep in place. Discussed discharge planning with daughter who remains uncomfortable with the transition to PO antibiotics despite the significant improvement and near resolution of the cellulitis. She has had 10 days of IV antibiotics already with surgical drainage and drain in place. Discussed the option of the ID provider to come discuss treatment to ease daughter's mind but she is not open to this. Will continue current treatment plan however the patient has poor IV access with a current R foot IV in place. The daughter also reports the patient has pain at the breast and it was discussed she may continue to have pain but if it can be managed on oral analgesics this is also not a reason to stay. She was resting comfortably when seen this morning with last analgesic dose at 0530. PT consult to get patient OOB/recliner. <Halley Haque PA-C - Last Filed: 04/23/22 09:39> 71-year-old female patient presenting with recurrent cellulitis of the chest wall left greater than right. Ultrasound seemed to indicate complex collection below the flaps perhaps blood or loculated fluid. She is POD #5 s/p incision and drainage bilateral chest wall found to have seroma of left chest wall, negative I&D of right. All wound cultures are negative to date. GENET drain on left draining scanty serosanguineous fluid. Will keep in place. Discussed discharge planning with daughter who remains uncomfortable with the transition to PO antibiotics despite the significant improvement and near resolution of the cellulitis. She has had 10 days of IV antibiotics already with surgical drainage and drain in place. Discussed the option of the ID provider to come discuss treatment to ease daughter's mind but she is not open to this. Will continue c urrent treatment plan however the patient has poor IV access with a current R foot IV in place. The daughter also reports the patient has pain at the breast and it was discussed she may continue to have pain but if it can be managed on oral analgesics this is also not a reason to stay. She was resting comfortably when seen this morning with last analgesic dose at 0530. PT consult to get patient OOB/recliner. GENET drain removed today, patient tolerated well. Will remove sutures in a.m. tomorrow. <Renard Malik MD - Last Filed: 04/23/22 14:12> Time Spent With Patient Time: Total time spent is greater than 50% in coordination of care (as documented) at patient's floor/unit and/or counseling patient: <Halley Haque PA-C - Last Filed: 04/23/22 09:39> Quality Stroke Does the patient have a stroke diagnosis?: No <Halley Haque PA-C - Last Filed: 04/23/22 09:39> VTE Prior VTE?: No <Halley Haque PA-C - Last Filed: 04/23/22 09:39> VTE Risk Level:: Medical - moderate - high <Halley Haque PA-C - Last Filed: 04/23/22 09:39> VTE Device Contraindication: N/A - Device Ordered <Halley Haque PA-C - Last Filed: 04/23/22 09:39> VTE Drug Contraindication: N/A - Med Ordered <Halley Haque PA-C - Last Filed: 04/23/22 09:39>
[2022-04-23] MEDS: Gabapentin 400 MG CAPSULE 800 MG PO ×2 (09:35→21:21)
[2022-04-23] MEDS: Docusate Sodium 100 MG CAPSULE PO ×2 (09:35→21:20)
[2022-04-23] MEDS: oxyCODONE HCl Immed Release 5 MG TABLET PO (09:35)
[2022-04-23] MEDS: Metoprolol Tartrate 50 MG TABLET PO ×2 (09:35→21:20)
[2022-04-23] MEDS: amLODIPine Besylate 10 MG TABLET PO (09:35)
[2022-04-23] MEDS: 0.9 % Sodium Chloride Flush 3 ML SYRINGE IVFLUSH ×3 (09:36→21:21)
[2022-04-23 11:12] LABS: Creatinine Clr Calc Pharmacy 40.5; Estimated Glomerular Filt Rate 52
[2022-04-23 11:19] LABS: Glucose, Whole Blood 114 mg/dL (60-115)
--- NOTE | 2022-04-23 12:36 | MHC.CM.PN ---
EMR REVIEWED, PER SURGICAL NOTES PT CONT'S TO C/O PAIN AND DTR IS CONCERNED ABOUT PT TRANSITIONING TO PO ABX, NO PLAN FOR D/C TODAY, CM WILL CONT TO FOLLOW.
[2022-04-23 14:26] LABS: Vancomycin Random 17.3 mcg/mL (15-20)
[2022-04-23 14:27] LABS: Creatinine Clr Calc Pharmacy 40.5; Estimated Glomerular Filt Rate 52
[2022-04-23] MEDS: Amoxicillin/Potassium Clav 500 MG TABLET PO ×2 (15:03→23:37)
[2022-04-23] MEDS: Acetaminophen 1,000 MG/100 ML PIGGYBACK 400 MG IV ×2 (15:14→21:21)
[2022-04-23] MEDS: traZODone HCL 100 MG TABLET 200 MG PO (21:20)
[2022-04-23] MEDS: Amitriptyline HCl 10 MG TABLET PO (21:20)
[2022-04-23] MEDS: Mirtazapine 15 MG TABLET PO (21:21)
[2022-04-23] MEDS: Atorvastatin Calcium 20 MG TABLET PO (21:21)
[2022-04-24] MEDS: oxyCODONE HCl Immed Release 5 MG TABLET 10 MG PO ×4 (00:43→20:12)
[2022-04-24] MEDS: Acetaminophen 1,000 MG/100 ML PIGGYBACK 400 MG IV ×2 (03:06→09:15)
[2022-04-24 03:10] VITALS: BP 119/58; PULSE 65; RESP 16; TEMP 36.2; O2SAT 98
[2022-04-24] MEDS: Amoxicillin/Potassium Clav 500 MG TABLET PO ×3 (06:21→23:56)
[2022-04-24] MEDS: Omeprazole 20 MG CAPSULE.DR PO (06:21)
[2022-04-24 06:56] VITALS: BP 133/63; PULSE 60; RESP 18; TEMP 36.6; O2SAT 96
[2022-04-24 06:57] LABS: Creatinine Clr Calc Pharmacy 44.3; Estimated Glomerular Filt Rate 58
[2022-04-24] MEDS: Metoprolol Tartrate 50 MG TABLET PO ×2 (07:16→20:02)
[2022-04-24] MEDS: Docusate Sodium 100 MG CAPSULE PO ×2 (07:16→20:01)
[2022-04-24] MEDS: amLODIPine Besylate 10 MG TABLET PO (07:17)
[2022-04-24] MEDS: 0.9 % Sodium Chloride Flush 3 ML SYRINGE IVFLUSH ×3 (07:17→20:05)
[2022-04-24] MEDS: Gabapentin 400 MG CAPSULE 800 MG PO ×2 (07:17→20:01)
[2022-04-24 07:28] LABS: Glucose, Whole Blood 115 mg/dL (60-115)
[2022-04-24] MEDS: oxyCODONE HCl Immed Release 5 MG TABLET PO ×2 (09:15→14:56)
--- NOTE | 2022-04-24 09:52 | P.PNGS_ITS ---
Subjective Subjective Date of Service: 04/24/22 Interval history: Did well yesterday on oxycodone with the exception of when drain was removed and was given IV dilaudid. RN overnight reported patient slept very well, only required oxycodone once. Patient reported she had minimal pain seen this morning but when reexamined later with daughter, the daughter stated she was having a lot pain. Currently receiving IV tylenol. Reports pain has been less with tylenol on board. Was ambulated yesterday with PT. Reports prior to this was only getting OOB to recliner. Physical Exam Vital Signs: Vital Signs: Last Vital Signs Temp 97.8 F 04/24/22 06:56 Pulse 60 04/24/22 06:56 Resp 18 04/24/22 06:56 BP 133/63 04/24/22 06:56 Pulse Ox 96 04/24/22 06:56 O2 Del Method 04/24/22 06:56 O2 Flow Rate 1 04/17/22 13:25 BMI result Body Mass Index 36.8 Const: General: comfortable, no acute distress and alert Orientation/consciousness: patient oriented x3 Chest: Other: right mastectomy site without any erythema or fluctuation, sutures removed; left mastectomy site with very minimal residual erythema/induration near lateral aspect; sutures removed Resp: Effort & Inspection: normal respiratory effort Skin: General skin exam: no rashes or lesions noted Neuro: General: patient oriented x3 Objective Data Active Medications Albuterol Sulfate (Albuterol Sulfate 90 Mcg 8 Gm Inhaler) 1 puff INHALE RQ4H PRN PRN Reason: Shortness of Breath/Wheezing Amitriptyline HCl (Amitriptyline Hcl 10 Mg Tablet) 10 mg PO BEDTIME [facility] Last Admin: 04/23/22 21:20 Dose: 10 mg Documented By: KRISTINA Amlodipine Besylate (Amlodipine Besylate 10 Mg Tablet) 10 mg PO DAILY [facility]; Protocol Last Admin: 04/24/22 07:17 Dose: 10 mg Documented By: COTEMA Amoxicillin/Clavulanate Potassium (Amoxicillin/Potassium Clav 500 Mg Tablet) 500 mg PO Q8H [facility] Last Admin: 04/24/22 06:21 Dose: 500 mg Documented By: KRISTINA Atorvastatin Calcium (Atorvastatin Calcium 20 Mg Tablet) 20 mg PO BEDTIME [facility] Last Admin: 04/23/22 21:21 Dose: 20 mg Documented By: KRISTINA Dextrose (Dextrose 50 % 25 Gm/50 Ml Syringe) 25 gm IVPUSH Q15M PRN; Protocol PRN Reason: per Hypoglycemia Standing Ord. Docusate Sodium (Docusate Sodium 100 Mg Capsule) 100 mg PO BID [facility] Last Admin: 04/24/22 07:16 Dose: 100 mg Documented By: JESSICA Gabapentin (Gabapentin 400 Mg Capsule) 800 mg PO BID [facility] Last Admin: 04/24/22 07:17 Dose: 800 mg Documented By: JESSICA Glucose (Glucose Gel 15 Gm Gel..Gram.) 15 gm PO Q15M PRN; Protocol PRN Reason: per Hypoglycemia Standing Ord. Hydromorphone HCl (Hydromorphone Hcl 0.5 Mg/0.5 Ml Syringe) 0.5 mg IVPUSH Q4H PRN; Protocol PRN Reason: Pain, Severe (Pain Scale 7-10) Last Admin: 04/23/22 15:03 Dose: 0.5 mg Documented By: JESSICA Metoprolol Tartrate (Metoprolol Tartrate 50 Mg Tablet) 50 mg PO BID [facility]; Protocol Last Admin: 04/24/22 07:16 Dose: 50 mg Documented By: JESSICA Mirtazapine (Mirtazapine 15 Mg Tablet) 15 mg PO BEDTIME [facility] Last Admin: 04/23/22 21:21 Dose: 15 mg Documented By: KRISTINA Omeprazole (Omeprazole 20 Mg Capsule.Dr) 20 mg PO DAILY@0630 [facility] Last Admin: 04/24/22 06:21 Dose: 20 mg Documented By: KRISTINA Oxycodone HCl (Oxycodone Hcl Immed Release 5 Mg Tablet) 10 mg PO Q6H PRN PRN Reason: Pain, Moderate (Pain Scale 4-6 Last Admin: 04/24/22 07:16 Dose: 10 mg Documented By: JESSICA Oxycodone HCl (Oxycodone Hcl Immed Release 5 Mg Tablet) 5 mg PO Q4H PRN PRN Reason: Pain, Moderate (Pain Scale 4-6 Last Admin: 04/24/22 09:15 Dose: 5 mg Documented By: JESSICA Pharmacy Consult (Consult Rx Perform Med Rec) 1 each MISCELLANE ONCE PRN PRN Reason: Consult order Polyethylene Glycol (Polyethylene Glycol 3350 17 Gm Powd.Pack) 17 gm PO DAILY PRN PRN Reason: Constipation Last Admin: 04/22/22 21:01 Dose: 17 gm Documented By: KRISTINA Sodium Chloride (0.9 % Sodium Chloride Flush 3 Ml Syringe) 3 ml IVFLUSH QSHIFT [facility] Last Admin: 04/24/22 07:17 Dose: 3 ml Documented By: COTEMA Trazodone HCl (Trazodone Hcl 100 Mg Tablet) 200 mg PO BEDTIME [facility] Last Admin: 04/23/22 21:20 Dose: 200 mg Documented By: KRISTINA Labs CBC & Chem 7: 04/14/22 06:02 04/24/22 05:50 Labs: Laboratory Results - last 24 hr 04/23/22 04/23/22 04/23/22 10:26 11:14 14:01 Estim Creat Clear Calc 40.5 Estimated GFR 52 POC Glucose 114 Random Vancomycin 17.3 04/23/22 04/24/22 04/24/22 14:01 05:50 06:57 Estim Creat Clear Calc 40.5 44.3 Estimated GFR 52 58 POC Glucose 115 Random Vancomycin Procedures Date of Service Date of Service: 04/24/22 Progress Note: A&P Assessment and plan (1) S/P bilateral mastectomy: Status: Acute (2) Cellulitis: Status: Acute Plan 71-year-old female patient presenting with recurrent cellulitis of the chest wall left greater than right. Ultrasound seemed to indicate complex collection below the flaps perhaps blood or loculated fluid. She is POD #6 s/p incision and drainage bilateral chest wall found to have seroma of left chest wall, negative I&D of right. All wound cultures are negative to date. Reports improvement in pain with tylenol ATC. Continue pain control and encourage use of oral analgesics. Sutures removed, left mastectomy site continues to look improved with minimal residual erythema/induration. Dispo planning to be discussed with daughter who remains reluctant for patient to be discharged to home. Continue OOB/ambulation, PT. Time Spent With Patient Time: Total time spent is greater than 50% in coordination of care (as documented) at patient's floor/unit and/or counseling patient: Quality Stroke Does the patient have a stroke diagnosis?: No VTE Prior VTE?: No VTE Risk Level:: Medical - moderate - high VTE Device Contraindication: N/A - Device Ordered VTE Drug Contraindication: N/A - Med Ordered
[2022-04-24 11:13] VITALS: BP 116/60; PULSE 60; RESP 17; TEMP 36.7; O2SAT 95
[2022-04-24 11:17] LABS: Glucose, Whole Blood 129 mg/dL (60-115)
[2022-04-24] MEDS: Acetaminophen 325 MG TABLET 975 MG PO ×2 (14:57→20:11)
[2022-04-24 15:08] VITALS: BP 136/69; PULSE 70; RESP 18; TEMP 36.8; O2SAT 97
[2022-04-24 15:55] LABS: Glucose, Whole Blood 124 mg/dL (60-115)
[2022-04-24 18:51] VITALS: BP 136/99; PULSE 77; RESP 18; TEMP 37.1; O2SAT 98
[2022-04-24 19:45] LABS: Glucose, Whole Blood 155 mg/dL (60-115)
[2022-04-24] MEDS: Atorvastatin Calcium 20 MG TABLET PO (20:01)
[2022-04-24] MEDS: traZODone HCL 100 MG TABLET 200 MG PO (20:01)
[2022-04-24] MEDS: Amitriptyline HCl 10 MG TABLET PO (20:01)
[2022-04-24] MEDS: Mirtazapine 15 MG TABLET PO (20:02)
[2022-04-24 23:19] VITALS: BP 125/58; PULSE 64; RESP 16; TEMP 36.3; O2SAT 96
[2022-04-25] VITALS (7 sets, daily range): BP systolic 122–167; BP diastolic 62–84; PULSE 58–88; RESP 14–18; TEMP 36.2–37.1; O2SAT 92–98
[2022-04-25] MEDS: Acetaminophen 325 MG TABLET 975 MG PO ×4 (03:15→21:07)
[2022-04-25] MEDS: Omeprazole 20 MG CAPSULE.DR PO (06:18)
[2022-04-25] MEDS: Amoxicillin/Potassium Clav 500 MG TABLET PO ×3 (06:18→23:00)
[2022-04-25 06:52] LABS: Creatinine Clr Calc Pharmacy 48.9; Estimated Glomerular Filt Rate > 60
[2022-04-25] MEDS: Gabapentin 400 MG CAPSULE 800 MG PO ×2 (08:38→21:07)
[2022-04-25] MEDS: Docusate Sodium 100 MG CAPSULE PO ×2 (08:38→21:07)
[2022-04-25] MEDS: amLODIPine Besylate 10 MG TABLET PO (08:38)
[2022-04-25] MEDS: 0.9 % Sodium Chloride Flush 3 ML SYRINGE IVFLUSH ×3 (08:41→21:08)
--- NOTE | 2022-04-25 14:13 | P.PNGS_ITS ---
Subjective Subjective Date of Service: 04/25/22 <Halley Haque PA-C - Last Filed: 04/25/22 14:21> 04/25/22 <Renard Malik MD - Last Filed: 04/25/22 15:42> Interval history: States she is doing ok today- has only been on PO analgesics and PO antibiotics. Ambulating with PT this morning. <Halley Haque PA-C - Last Filed: 04/25/22 14:21> Physical Exam Vital Signs: Vital Signs: Last Vital Signs Temp 98.0 F 04/25/22 11:06 Pulse 73 04/25/22 11:06 Resp 15 04/25/22 11:06 BP 145/84 H 04/25/22 11:06 Pulse Ox 92 04/25/22 11:06 O2 Del Method 04/25/22 11:06 O2 Flow Rate 1 04/17/22 13:25 BMI result Body Mass Index 36.8 <Halley Haque PA-C - Last Filed: 04/25/22 14:21> Const: General: comfortable, no acute distress and alert <Halley Haque PA-C - Last Filed: 04/25/22 14:21> Orientation/consciousness: patient oriented x3 <Halley Haque PA-C - Last Filed: 04/25/22 14:21> Chest: Other: R mastectomy site clean; L mastectomy site continues with very minimal residual induration at lateral aspect, no evidence of recurring seroma; I&D sites clean b/l, sutures removed yesterday <Halley Haque PA-C - Last Filed: 04/25/22 14:21> Resp: Effort & Inspection: normal respiratory effort <Halley Haque PA-C - Last Filed: 04/25/22 14:21> Skin: General skin exam: no rashes or lesions noted <ARON Benítez Last Filed: 04/25/22 14:21> Neuro: General: patient oriented x3 <Halley Haque PA-C - Last Filed: 04/25/22 14:21> Objective Data Active Medications Acetaminophen (Acetaminophen 325 Mg Tablet) 975 mg PO Q6H [facility] Last Admin: 04/25/22 08:38 Dose: 975 mg Documented By: JODY Albuterol Sulfate (Albuterol Sulfate 90 Mcg 8 Gm Inhaler) 1 puff INHALE RQ4H PRN PRN Reason: Shortness of Breath/Wheezing Amitriptyline HCl (Amitriptyline Hcl 10 Mg Tablet) 10 mg PO BEDTIME [facility] Last Admin: 04/24/22 20:01 Dose: 10 mg Documented By: GEORGE Amlodipine Besylate (Amlodipine Besylate 10 Mg Tablet) 10 mg PO DAILY [facility]; Protocol Last Admin: 04/25/22 08:38 Dose: 10 mg Documented By: JODY Amoxicillin/Clavulanate Potassium (Amoxicillin/Potassium Clav 500 Mg Tablet) 500 mg PO Q8H [facility] Last Admin: 04/25/22 06:18 Dose: 500 mg Documented By: GEORGE Atorvastatin Calcium (Atorvastatin Calcium 20 Mg Tablet) 20 mg PO BEDTIME [facility] Last Admin: 04/24/22 20:01 Dose: 20 mg Documented By: GEORGE Dextrose (Dextrose 50 % 25 Gm/50 Ml Syringe) 25 gm IVPUSH Q15M PRN; Protocol PRN Reason: per Hypoglycemia Standing Ord. Docusate Sodium (Docusate Sodium 100 Mg Capsule) 100 mg PO BID [facility] Last Admin: 04/25/22 08:38 Dose: 100 mg Documented By: JODY Gabapentin (Gabapentin 400 Mg Capsule) 800 mg PO BID [facility] Last Admin: 04/25/22 08:38 Dose: 800 mg Documented By: JODY Glucose (Glucose Gel 15 Gm Gel..Gram.) 15 gm PO Q15M PRN; Protocol PRN Reason: per Hypoglycemia Standing Ord. Hydromorphone HCl (Hydromorphone Hcl 0.5 Mg/0.5 Ml Syringe) 0.5 mg IVPUSH Q4H PRN; Protocol PRN Reason: Pain, Severe (Pain Scale 7-10) Last Admin: 04/23/22 15:03 Dose: 0.5 mg Documented By: JESSICA Metoprolol Tartrate (Metoprolol Tartrate 50 Mg Tablet) 50 mg PO BID [facility]; Protocol Last Admin: 04/25/22 08:39 Dose: Not Given Documented By: JODY Non-Admin Reason: Decreased Heart Rate Mirtazapine (Mirtazapine 15 Mg Tablet) 15 mg PO BEDTIME [facility] Last Admin: 04/24/22 20:02 Dose: 15 mg Documented By: GEORGE Omeprazole (Omeprazole 20 Mg Capsule.) 20 mg PO DAILY@0630 [facility] Last Admin: 04/25/22 06:18 Dose: 20 mg Documented By: GEORGE Oxycodone HCl (Oxycodone Hcl Immed Release 5 Mg Tablet) 10 mg PO Q6H PRN PRN Reason: Pain, Moderate (Pain Scale 4-6 Last Admin: 04/24/22 20:12 Dose: 10 mg Documented By: GEORGE Oxycodone HCl (Oxycodone Hcl Immed Release 5 Mg Tablet) 5 mg PO Q4H PRN PRN Reason: Pain, Moderate (Pain Scale 4-6 Last Admin: 04/24/22 14:56 Dose: 5 mg Documented By: COTEMA Pharmacy Consult (Consult Rx Perform Med Rec) 1 each MISCELLANE ONCE PRN PRN Reason: Consult order Polyethylene Glycol (Polyethylene Glycol 3350 17 Gm Powd.Pack) 17 gm PO DAILY PRN PRN Reason: Constipation Last Admin: 04/22/22 21:01 Dose: 17 gm Documented By: OZORALJade Sodium Chloride (0.9 % Sodium Chloride Flush 3 Ml Syringe) [facility] Last Admin: 04/25/22 08:41 Dose: 3 ml Documented By: JODY Trazodone HCl (Trazodone Hcl 100 Mg Tablet) 200 mg PO BEDTIME [facility] Last Admin: 04/24/22 20:01 Dose: 200 mg Documented By: GEORGE <Halley Haque PA-C - Last Filed: 04/25/22 14:21> Labs CBC & Chem 7: : 04/14/22 06:02 04/25/22 05:10 <Halley Haque PA-C - Last Filed: 04/25/22 14:21> Labs: Laboratory Results - last 24 hr 04/24/22 04/24/22 04/25/22 15:12 18:52 05:10 Estim Creat Clear Calc 48.9 Estimated GFR > 60 POC Glucose 124 H 155 H <Halley Haque PA-C - Last Filed: 04/25/22 14:21> Procedures Date of Service Date of Service: 04/25/22 <Halley Haque PA-C - Last Filed: 04/25/22 14:21> Progress Note: A&P Assessment and plan (1) Cellulitis: Status: Acute <ARON Benítez Last Filed: 04/25/22 14:21> (2) S/P bilateral mastectomy: Status: Acute <ARON Benítez Last Filed: 04/25/22 14:21> (3) Lobular carcinoma in situ: Status: Acute <ARON Benítez Last Filed: 04/25/22 14:21> Assessment and Plan: 71-year-old female patient presenting with recurrent cellulitis of the chest wall left greater than right.? Ultrasound seemed to indicate complex collection below the flaps perhaps blood or loculated fluid.? She is POD #7 s/p incision and drainage bilateral chest wall found to have seroma of left chest wall, negative I&D of right. All wound cultures are negative to date. Doing well on PO analgesics and antibiotics. Sutures removed yesterday and incision sites remain clean, left mastectomy site continues to be improved with minimal residual induration. Dispo planning, home with PT hopefully tomorrow. Continue to encourage OOB/ambulation, PT. <ARON Benítez Last Nigel ed: 04/25/22 14:21> 71-year-old female patient presenting with recurrent cellulitis of the chest wall left greater than right.? Ultrasound seemed to indicate complex collection below the flaps perhaps blood or loculated fluid.? She is POD #7 s/p incision and drainage bilateral chest wall found to have seroma of left chest wall, negative I&D of right. All wound cultures are negative to date. Doing well on PO analgesics and antibiotics. Sutures removed yesterday and incision sites remain clean, left mastectomy site continues to be improved with minimal r esidual induration. Dispo planning, home with PT hopefully tomorrow. Continue to encourage OOB/ambulation, PT. Agree with the above assessment and plan. Wounds look great with no further inflammation, redness, fluctuance or any indication of infection. Patient seems to be tolerating oral medications as well. Will watch 1 more day and discharge in a.m. tomorrow. <Renard Malik MD - Last Filed: 04/25/22 15:42> Time Spent With Patient Time: Total time spent is greater than 50% in coordination of care (as documented) at patient's floor/unit and/or counseling patient: <Halley Haque PA-C - Last Filed: 04/25/22 14:21> Quality Stroke Does the patient have a stroke diagnosis?: No <Halley Haque PA-C - Last Filed: 04/25/22 14:21> VTE Prior VTE?: No <Halley Haque PA-C - Last Filed: 04/25/22 14:21> VTE Risk Level:: Medical - moderate - high <Halley Haque PA-C - Last Filed: 04/25/22 14:21> VTE Device Contraindication: N/A - Device Ordered <Halley Haque PA-C - Last Filed: 04/25/22 14:21> VTE Drug Contraindication: N/A - Med Ordered <Halley Haque PA-C - Last Filed: 04/25/22 14:21>
--- NOTE | 2022-04-25 15:07 | MHC.CM.PN ---
PLAN IS HOME THURSDAY 04/26 WITH [facility]
[2022-04-25 15:56] LABS: Glucose, Whole Blood 135 mg/dL (60-115)
[2022-04-25 20:22] LABS: Glucose, Whole Blood 141 mg/dL (60-115)
[2022-04-25] MEDS: Atorvastatin Calcium 20 MG TABLET PO (21:06)
[2022-04-25] MEDS: Mirtazapine 15 MG TABLET PO (21:06)
[2022-04-25] MEDS: Metoprolol Tartrate 50 MG TABLET PO (21:07)
[2022-04-25] MEDS: Amitriptyline HCl 10 MG TABLET PO (21:07)
[2022-04-25] MEDS: traZODone HCL 100 MG TABLET 200 MG PO (21:07)
[2022-04-26] MEDS: Acetaminophen 325 MG TABLET 975 MG PO ×2 (03:25→08:17)
[2022-04-26 04:00] VITALS: BP 136/66; PULSE 61; RESP 14; TEMP 36.3; O2SAT 96
[2022-04-26] MEDS: Amoxicillin/Potassium Clav 500 MG TABLET PO (06:02)
[2022-04-26] MEDS: Omeprazole 20 MG CAPSULE.DR PO (06:03)
[2022-04-26 07:43] LABS: Creatinine Clr Calc Pharmacy 47.3; Estimated Glomerular Filt Rate > 60
[2022-04-26 07:52] VITALS: BP 159/76; PULSE 74; RESP 14; TEMP 36.4; O2SAT 97
[2022-04-26] MEDS: Docusate Sodium 100 MG CAPSULE PO (08:17)
[2022-04-26] MEDS: Metoprolol Tartrate 50 MG TABLET PO (08:18)
[2022-04-26] MEDS: amLODIPine Besylate 10 MG TABLET PO (08:18)
[2022-04-26] MEDS: 0.9 % Sodium Chloride Flush 3 ML SYRINGE IVFLUSH (08:18)
[2022-04-26] MEDS: Gabapentin 400 MG CAPSULE 800 MG PO (08:18)
--- NOTE | 2022-04-26 09:15 | MHC.CM.PN ---
PT WILL DC HOME TODAY WITH [facility]UMPT[facility] OF [facility] NOTIFIED OF DC FAMILY TO TRANSPORT
[2022-04-26 11:27] VITALS: BP 140/81; PULSE 68; RESP 15; TEMP 36.1; O2SAT 97
--- NOTE | 2022-04-27 12:21 | P.DS_ITS ---
DS: Providers Provider Date of Service: 04/26/22 Date of admission: 04/13/22 16:34 Date of discharge: 04/26/22 Primary care physician: Milan Mcgraw PA-C Attending physician on admission: Salvatore Graza Consults: 04/13/22 16:35 Consult to Hospitalist Routine Consulting Provider: Hospitalist Reason For Exam: medical management, DM2 Attending physician on discharge: Renard Malik DS: Diagnosis Discharge Diagnosis (1) Cellulitis: Status: Acute (2) S/P bilateral mastectomy: Status: Acute (3) Lobular carcinoma in situ: Status: Acute DS: Summary Hospital Course Hospital Course: HPI FROM DAY OF ADMISSION: Beatriz Aguayo is a 71 year old female with a history of lobular breast cancer status post RIGHT MRM & simple LEFT mastectomy. 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 She also underwent lumpectomy in the right breast for a right breast carcinoma in 2003. 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 At the patient's request she underwent bilateral mastectomy on 02/19/2022. The patient is accompanied by her daughter and presents again with redness on her bilateral mastectomy sites with fluid collections that were evaluated earlier this week/late last week and are unchanged. Patient reports worsening pain. HOSPITAL COURSE: The patient was admitted to the surgical service for further treatment of the bilateral chest wall cellulitis. She was started on IV Vanco & Zosyn through the weekend. She was also complaining of increasing pain at the left site and was started on IV and PO PRN analgesics. She did not have significant improvement in the erythema and induration or pain on the IV antibiotics after a few days. Given the recurrent cellulitis of the left chest wall and US indicating complex collection below the flaps perhaps blood or loculated fluid, it was decided to proceed with exploration and drain placement. On 04/17/22, an incision and drainage of bilateral chest wall with Dr. Malik without complication. The right I&D was negative but there was a small seroma of the left chest wall, without evidence of abscess. A GENET drain was placed in the left chest drainage site. The seroma fluid was again cultured which eventually was negative for any growth. She did fairly well following the procedure. She remained on IV antibiotics and was still requiring IV analgesics multiple days after the drainage. Her cellulitis improved and had minimal residual erythema/induration. Her pain slowly improved and she was placed on tylenol ATC. The GENET drain had scanty serous output. The drain and sutures at b/l I&D sites were removed. She was transitioned to PO Augmentin on 04/23/22 and PO analgesics. PT was consulted as she was not very active during her stay. They recommended home PT. On the day of discharge, she was tolerating a solid diet, her pain was controlled on PO analgesics, she had very minimal residual induration at the lateral aspect of the left mastectomy site, her incisions were clean. She was discharged to home with services on 04/26/22 with a course of PO Augmentin. She is to follow up with Dr. Malik in office in 1 week. Status at Discharge Functional status at discharge: uses cane/walker Overall status at discharge: patient is not back to baseline Time Spent with Patient Time attestation: Total time spent providing and/or coordinating discharge services: Discharge coordination time: Greater than 30 minutes Quality: Safe Use of Opioids Does Pt have an Active Cancer Diagnosis on the Problem List?: Yes Opioid Measure Date for [facility] Report: 03/28/22 Opioid Measure Time for [facility] Report: 12:44 Quality: Stroke Does the patient have a stroke diagnosis?: No Physical Exam Vital Signs: Vital Signs: Last Vital Signs Temp 96.9 F 04/26/22 11:27 Pulse 68 04/26/22 11:27 Resp 15 04/26/22 11:27 BP 140/81 H 04/26/22 11:27 Pulse Ox 97 04/26/22 11:27 O2 Del Method 04/26/22 11:27 O2 Flow Rate 1 04/17/22 13:25 BMI result Body Mass Index 36.8 Const: General: comfortable, no acute distress and alert Orientation/consciousness: patient oriented x3 Chest: Other: right chest I&D site clean; lfet chest wall with very minimal induration at lateral aspect, I&D site clean, no erythema Resp: Effort & Inspection: normal respiratory effort Skin: General skin exam: no rashes or lesions noted Neuro: General: patient oriented x3 Extrem: General: Yes no clubbing, cyanosis or edema DS: Data Data Completed and Pending Completed studies during hospitalization [Text1]: Procedures Drainage of Left Breast, Percutaneous Approach (03/30/22) Resection of Bilateral Breast, Open Approach (02/19/22) Resection of Right Axillary Lymphatic, Open Approach (02/19/22) Discharge Plan Discharge Anticipated Discharge Date/Time: 04/26/22 08:37 Patient Disposition: Home Health Service Discharge Diagnosis: cellulitis chest wall Referrals: Sandra FARRELL [Outside] - 1 Week Milan Mcgraw PA-C [Primary Care Provider] - 1 Week Renard Malik MD [Physician] - 1 Week Discharge Medications: New acetaminophen 325 mg Tablet 975 mg PO Q6H Qty: 60 0RF oxycodone 5 mg Tablet 5 mg PO Q4H PRN (Reason: Pain, Moderate (Pain Scale 4-6) Qty: 20 0RF Rx Instructions: Partial Fill upon patient request. amoxicillin-pot clavulanate [Augmentin] 500-125 mg tablet 1 tab PO Q8H Qty: 30 0RF Continued (DME) blood-glucose meter [FreeStyle Lite Meter] Kit See Rx Instructions .ROUTE .MEDSUPPLY Qty: 1 0RF Rx Instructions: As directed atorvastatin 20 mg tablet 20 mg PO BEDTIME trazodone 100 mg tablet 200 mg PO BEDTIME oxycodone 5 mg tablet 1 tab PO Q8H PRN (Reason: Pain (Scale Score 4-6)) (DME) lancets [FreeStyle Lancets] 28 gauge misc See Rx Instructions .ROUTE .MEDSUPPLY Qty: 100 3RF Rx Instructions: As directed (DME) FreeStyle Lite Strips Strip See Rx Instructions .ROUTE .MEDSUPPLY Qty: 100 3RF Rx Instructions: As directed gabapentin 800 mg tablet 800 mg PO BID 30 Days Qty: 60 3RF dicyclomine 10 mg capsule 20 mg PO Q6H 30 Days Qty: 240 0RF metoprolol tartrate 50 mg tablet 50 mg PO BID Qty: 180 2RF omeprazole 20 mg capsule,delayed release(DR/EC) 20 mg PO DAILY 90 Days Qty: 90 1RF mirtazapine [Remeron] 15 mg tablet 15 mg PO BEDTIME 30 Days Qty: 30 3RF (DME) Blood Pressure Cuff Misc See Rx Instructions .ROUTE .MEDSUPPLY Qty: 1 0RF Rx Instructions: As directed amitriptyline 10 mg tablet 10 mg PO BEDTIME Qty: 90 2RF amlodipine 10 mg tablet 10 mg PO DAILY 90 Days Qty: 90 1RF Discontinued cyclobenzaprine 10 mg tablet 10 mg PO TID PRN (Reason: muscle spasm) 15 Days Qty: 45 3RF doxycycline monohydrate 100 mg tablet 100 mg PO DAILY Qty: 7 0RF acetaminophen 650 mg tablet extended release 650 mg PO Q12H 90 Days Qty: 180 1RF ibuprofen 800 mg tablet 800 mg PO Q8H 90 Days Qty: 270 1RF Discharge Orders: Discharge Order (Routine); Ordered 04/26/22 Ordered By: Renard Malik Diet: Diabetic diet Activity on Discharge: No heavy lifting Stand Alone Forms: Patient Portal Discharge page Activity Restrictions/Additional Instructions: If the incision area is tender, you may apply an ice pack for short intervals (No more than 20 minutes on, followed by at least 20 minutes off). Do not apply heat. Do not use creams, lotions, or topical antibiotics unless instructed to do so by your surgeon. These can cause infection or allergic reaction. Ok to shower. You have sutures closing your incision and these will be removed approximately 10-14 days after surgery. GENET drain care- empty drain daily and as needed. Record output. Bring record to follow up appointment. Follow up in office with Dr. Malik in 1 week. ([phone]) Call Your Doctor If: ? ? -Your temperature exceeds 101.5? F? ? ? -You experience excessive pain or swelling ? ? -You have an unexpected reaction to medication ? ? -You have excessive bleeding ? ? -You experience continued vomiting/nausea ? ? -Your incision begins to separate ?? ? -Your incision shows signs of infection such as increased redness, swelling, excessive pain, drainage (light blood or clear fluid is normal) or heat Care Plan Goals: Return to baseline health. Port placement. Health Concerns: S/p bilateral mastectomy Recurrent seroma and cellulitis breast CA Plan of Treatment: S/p incision and drainage of b/l breast IV abx transitioned to PO antibiotics Assessment: Improved Discharge Date/Time: 04/26/22 12:25
== END 2022-04-26 12:25 | disposition home health service (06) | DRG 920 ==
LOC: HO.ED 16:14 → HO.EDOVER 16:41 → HO.S3 17:15
PROVIDERS: Nurse Practitioner Family; Physician Assistant Medical; Admitting Provider Surgery; Emergency Provider Emergency Medicine Emergency Medical Services; PCP Physician Assistant; Visit Provider Surgery
PROC: 0W9800Z Drainage of Chest Wall with Drainage Device, Open Approach (ICD-10-PCS; principal; 2022-04-17 11:00)
DX: L76.34 Postprocedural seroma of skin and subcutaneous tissue following other procedure (principal); L03.313 Cellulitis of chest wall; Y83.8 Other surgical procedures as the cause of abnormal reaction of the patient, or of later complication, without mention of misadventure at the time of the procedure; K21.9 Gastro-esophageal reflux disease without esophagitis; I10 Essential (primary) hypertension; F03.90 Unspecified dementia, unspecified severity, without behavioral disturbance, psychotic disturbance, mood disturbance, and anxiety; I12.9 Hypertensive chronic kidney disease with stage 1 through stage 4 chronic kidney disease, or unspecified chronic kidney disease; E78.5 Hyperlipidemia, unspecified; N18.30 Chronic kidney disease, stage 3 unspecified; M19.90 Unspecified osteoarthritis, unspecified site; Z90.13 Acquired absence of bilateral breasts and nipples; Z20.822 Contact with and (suspected) exposure to COVID-19; Z85.3 Personal history of malignant neoplasm of breast; Z98.1 Arthrodesis status; Z79.899 Other long term (current) drug therapy
CPT/HCPCS: 36415; 76642; 80048; 80053; 80202; 82565; 82947; 83036; 83605; 85025; 87040; 87070; 87205; 87635; 97116; 97162; 97530; 99283; 99285; J0131; J0690; J1100; J1170; J2250; J2270; J2370; J2405; J2543; J2795; J3010; J3370

== ENCOUNTER 2022-05-05 13:02 | Inpatient (IN) | payer OTHER, SELFPAY ==
[2022-05-05 13:12] VITALS: BP 144/73; PULSE 77; RESP 16; TEMP 36.8; O2SAT 96; BMI 36.8
--- NOTE | 2022-05-05 13:40 | ED.GENADULT ---
HPI - General Adult General Chief complaint: General Medical Stated complaint: cellulitis Time Seen by Provider: 05/05/22 13:26 Source: patient Mode of arrival: ambulatory Limitations: no limitations History of Present Illness HPI narrative: This is a set 72 years old female presented to the emergency department with the recurrent cellulitis of the chest. She has history of bilateral mustectomy back in Sep since then been having episode of recurrent cellulitis. Patient reports fever of 101 Onset (ago): day(s) (1) Location: chest Radiation: non-radiation Severity: moderate Quality: burning Pain Consistency: constant Relieving factors: none Exacerbating factors: none Related Data Home Medications Medication Instructions Recorded Confirmed atorvastatin 20 mg tablet 20 mg PO BEDTIME 04/13/22 05/01/22 trazodone 100 mg tablet 200 mg PO BEDTIME 04/13/22 05/01/22 citalopram 20 mg tablet 1 tab PO DAILY 05/05/22 Previous Rx's Medication Instructions Recorded blood-glucose meter (FreeStyle #1 ea 05/25/20 Lite Meter kit) blood sugar diagnostic (FreeStyle #100 ea 07/25/21 Lite Strips) lancets 28 gauge (FreeStyle #100 ea 07/25/21 Lancets) gabapentin 800 mg tablet 800 mg PO BID 30 days #60 tabs 01/24/22 metoprolol tartrate 50 mg tablet 50 mg PO BID #180 tabs 01/24/22 omeprazole 20 mg capsule,delayed 20 mg PO DAILY 90 days #90 caps 01/24/22 release amitriptyline 10 mg tablet 10 mg PO BEDTIME #90 tabs 03/08/22 amlodipine 10 mg tablet 10 mg PO DAILY 90 days #90 tabs 03/08/22 miscellaneous medical supply #1 ea 03/08/22 (Blood Pressure Cuff) mirtazapine 15 mg tablet (Remeron) 15 mg PO BEDTIME 30 days #30 tabs 04/12/22 acetaminophen 325 mg tablet 975 mg PO Q6H #60 tabs 04/26/22 albuterol sulfate 2.5 mg/3 mL 2.5 mg (3 mL) inhalation Q6H PRN 05/01/22 (0.083 %) solution for nebulization shortness of breath or wheezing 30 days #180 mL albuterol sulfate 90 mcg/actuation 1 puff inhalation QID 30 days #8.5 05/01/22 aerosol inhaler (Ventolin HFA) grams levofloxacin 500 mg tablet 500 mg PO DAILY 10 days #10 tabs 05/01/22 metronidazole 500 mg tablet 500 mg PO Q8H 10 days #30 tabs 05/01/22 oxycodone 10 mg tablet 10 mg PO TID PRN pain 30 days #90 05/01/22 tabs Allergies Allergy/AdvReac Type Severity Reaction Status Date / Time No Known Allergies Allergy Verified 05/01/22 11:30 [No Known Allergies*] Review of Systems Constitutional: Constitutional: Reports no additional constitutional complaints ENT: Reports system reviewed and no additional complaints, except as documented PMFSH Past Medical History Medical History Arthritis Depression Diabetes 1.5, managed as type 2 GERD (gastroesophageal reflux disease) HTN (hypertension) IBS (irritable bowel syndrome) 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 Mother Heart disease Hypertension Colon cancer Maternal Grandmother Esophageal cancer Daughter Breast cancer Brother Colon cancer Sister Breast cancer Sister Breast cancer, Onset Age: 60 Social History Social History Household Members: None Housing: Apartment Are you a primary acute care assistant to a significant other at home: No Do you presently have visiting nurse or other home services: Yes Unable to assess alcohol history related to: Unknown Alcohol intake: unknown Patient Tobacco Use Status: Never used Tobacco e-Cigarette/Vaping Use: Never Used Second Hand Smoke Exposure: No Advance Directives: Yes Advance Directives on File: Yes Advance Directives Date on File: 09/26/21 service: No Current occupational status: disabled 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) Hearing needs: No Vision needs: Yes Physical Exam ED Vital Signs: Vital Signs - 24 hr 05/05/22 13:12 Temperature 98.2 F Pulse Rate 77 Respiratory Rate 16 Blood Pressure 144/73 H Pulse Oximetry 96 Oxygen Delivery Method Room Air BMI result Body Mass Index 36.8 Const General: cooperative Nutritional Appearance: average body habitus Limitations: no limitations HENMT Head: Yes No palpable skull fracture present Ears: hearing grossly normal bilaterally Face and sinus: Yes normal facial exam Mouth: Normal oral and palatal mucosa present Throat: Yes posterior oropharynx normal Neck Neck: Yes normal visual inspection and Yes full ROM Chest Other: redness anterion chest wall left more than right Resp Effort & Inspection: normal respiratory effort Auscultation: clear to auscultation bilaterally Cardio Jugular venous distension: no JVD Rate: regular rate Rhythm: regular rhythm GI Inspection: Yes normal to inspection Palpation (GI): Soft to palpation, not firm and nontender Auscultation: normal bowel sounds Skin General skin exam: no rashes or lesions noted, elasticity normal and turgor normal Medications Administered Generic Name Dose Route Start Last Admin Trade Name Freq PRN Reason Stop Dose Admin Vancomycin HCl 2,000 mg in 520 mls @ 260 mls/hr 05/05/22 14:30 05/05/22 14:35 Vancomycin/Ns IV 05/05/22 16:29 260 mls/hr ONCE ONE Administration Acetaminophen 1,000 mg in 100 mls @ 400 mls/hr 05/05/22 15:15 05/05/22 15:48 Ofirmev IV 400 mls/hr Q6H MARINA Administration Discontinued Medications Generic Name Dose Route Start Last Admin Trade Name Freq PRN Reason Stop Dose Admin Morphine Sulfate 4 mg 05/05/22 14:37 05/05/22 15:24 Morphine Sulfate 4 Mg/Ml Cartridge IVPUSH 05/05/22 14:38 4 mg ONCE ONE Administration Protocol Medical Decision Making Medical Decision Making Discussion of management with other physician/healthcare provider/other source (e.g., hospitalist, medical economics consultant, behavioral health): Discussion w/other physician/healthcare provider (D/w Dr Malik) My interpretation is Lab Attestation: I reviewed the patient's lab results. Independent historian (e.g., spouse, EMS, friend): Independent historian (e.g., spouse, EMS, friend) Clinical information obtained from an independent historian. History obtained from or confirmed by: Other (daughter) Discharge Plan Discharge Clinical Impression: Cellulitis of breast Patient Disposition: Admitted As Inpatient
[2022-05-05 14:23] LABS: MANUAL DIFF FLAG NO
[2022-05-05 14:24] LABS: Basophils Percent Auto 0.5 % (0-2); Eosinophils Absolute Auto 0.2 X10*3/uL (0.0-0.4); Eosinophils Percent Auto 3.1 % (0-4); Hematocrit 31.9 % (37.0-47.0); Hemoglobin 10.2 g/dl (12.0-16.0); Imm Gran Abs Auto 0.01 X10*3/uL (0.00-0.03); Imm Gran Pct Auto 0.1 % (0.0-0.4); Lymphocytes Absolute Auto 2.3 X10*3/uL (1.2-4.9); Lymphocytes Percent Auto 30.5 % (20-40); Mean Corpuscular Hemoglobin 29.5 pg (27.0-33.0); Mean Corpuscular Volume 92.2 fL (80.0-98.0); Mean Platelet Volume 9.8 fL (9.4-12.3); Monocytes Absolute Auto 0.6 X10*3/uL (0.1-1.2); Monocytes Percent Auto 7.5 % (2-11); Neutrophils Absolute Auto 4.5 x10*3/uL (2.0-8.3); Neutrophils Percent Auto 58.3 % (45-73); Platelet Count 417 X10*3/uL (160-400); Red Blood Count 3.46 X10*6/uL (4.20-5.50); Red Cell Distribution Width 14.5 % (11.0-16.0); White Blood Count 7.7 X10*3/uL (4.8-10.8)
[2022-05-05 14:48] LABS: Alanine Aminotransferase 19 U/L (0-31); Albumin Level 3.6 g/dL (3.5-5.0); Alkaline Phosphatase 81 U/L (39-117); Anion Gap 14 (12-20); Aspartate Amino Transferase 21 U/L (5-31); Bilirubin Total < 0.2 mg/dL (0.0-1.0); Blood Urea Nitrogen 24 mg/dL (9-16); C Reactive Protein 0.61 mg/dL (< or = 0.50); Calcium 8.6 mg/dL (8.4-10.2); Carbon Dioxide 22 mmol/L (22-29); Chloride 108 mmol/L (96-108); Creatinine Clr Calc Pharmacy 41.7; Estimated Glomerular Filt Rate 54; Glucose Random 95 mg/dL (60-115); Potassium 4.5 mmol/L (3.3-5.1); Sodium 139 mmol/L (135-145); Total Protein 6.4 g/dL (6.5-8.0)
[2022-05-05 15:04] LABS: Erythrocyte Sedimentation Rate 50 MM/HR (0-20)
[2022-05-05 15:24] VITALS: RESP 18
[2022-05-05] MEDS: Morphine Sulfate 4 MG/ML CARTRIDGE IVPUSH (15:24)
[2022-05-05] MEDS: Acetaminophen 1,000 MG/100 ML PIGGYBACK 400 MG IV ×2 (15:48→21:00)
[2022-05-05 15:59] LABS: COVID-19 Test Negative (Negative); IDNOW Serial# 55D5AD1C
--- NOTE | 2022-05-05 16:15 | PHA.MEDREC ---
Pharmacy Consult ? Medication Reconciliation Pharmacy has completed the medication reconciliation.
--- NOTE | 2022-05-05 16:21 | HO.PM.IMCN ---
History of Present Illness Data of Consult Service Date: 05/05/22 Requesting physician: Renard Malik Primary Care Provider: Milan Mcgraw PA-C HPI Reason for consult: medical management 72yo F with hx of LCIS s/p R MRM + L simple mastectomy 02/19/22, admitted here 04/13-04/26/22 for bilateral chest wall cellulitis treated with IV vancomycin and piperacillin-tazobactam. She underwent I+D of a L chest wall seroma 04/17 with placemet of a GENET drain that was eventually removed. She was seen in the surgery clinic on 05/01/22 and cellulitis of the left chest wall was noted. She was prescribed levofloxacin and metronidazole. However, she presents today to the ED with worsening redness and pain of her chest wall, more on the left than on the right. No drainage of fluid or pus. This morning, her VNA measured a temperature of 102 in her. She felt ill but denied chills, nausea, vomiting, or abdominal pain. She has been admitted to the surgical service and medicine consultation was requested for management of her comorbid conditions. Notably, she is prediabetic rather than diabetic; A1c on 04/15/22 was 5.9. PMHx also notable for HTN, HLD, asthma, and mood disorder. 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 Mother Heart disease Hypertension Colon cancer Maternal Grandmother Esophageal cancer Daughter Breast cancer Brother Colon cancer Sister Breast cancer Sister Breast cancer, Onset Age: 60 Surgical History History of bilateral mastectomy (02/19/22) History of colonoscopy History of esophagogastroduodenoscopy (EGD) History of lumbar fusion History of lumpectomy of both breasts History of surgery Hx of appendectomy Hx of blepharoplasty Hx of cholecystectomy S/P bilateral mastectomy S/P ANDRÉS-BSO (total abdominal hysterectomy and bilateral salpingo-oophorectomy) Social History Household Members: None Housing: Apartment Are you a primary animal care service worker to a significant other at home: No Do you presently have visiting nurse or other home services: Yes Unable to assess alcohol history related to: Unknown Alcohol intake: unknown Patient Tobacco Use Status: Never used Tobacco e-Cigarette/Vaping Use: Never Used Second Hand Smoke Exposure: No Advance Directives: Yes Advance Directives on File: Yes Advance Directives Date on File: 09/26/21 service: No Current occupational status: disabled 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) Hearing needs: No Vision needs: Yes Meds Allergies Allergy/AdvReac Type Severity Reaction Status Date / Time No Known Allergies Allergy Verified 05/01/22 11:30 [No Known Allergies*] Active Medications: Current Medications Dextrose (Dextrose 50 % 25 Gm/50 Ml Syringe) 25 gm IVPUSH Q15M PRN; Protocol PRN Reason: per Hypoglycemia Standing Ord. Enoxaparin Sodium (Enoxaparin Sodium 40 Mg/0.4 Ml Syringe) 40 mg SUBCUT Q24H [facility]INA Glucose (Glucose Gel 15 Gm Gel..Gram.) 15 gm PO Q15M PRN; Protocol PRN Reason: per Hypoglycemia Standing Ord. Hydromorphone HCl (Hydromorphone Hcl 0.5 Mg/0.5 Ml Syringe) 0.5 mg IVPUSH Q3H PRN; Protocol PRN Reason: Pain, Severe (Pain Scale 7-10) Vancomycin HCl (Vancomycin/Ns) 2,000 mg in 520 mls @ 260 mls/hr IV ONCE ONE Stop: 05/05/22 16:29 Last Admin: 05/05/22 14:35 Dose: 260 mls/hr Acetaminophen (Ofirmev) 1,000 mg in 100 mls @ 400 mls/hr IV Q6H [facility]INA Last Admin: 05/05/22 15:48 Dose: 400 mls/hr Dextrose/Lactated Ringer's (D5lr) 1,000 mls @ 100 mls/hr IVCONT .Q10H [facility] Piperacillin Sod/Tazobactam (Sod 3.375 gm/ Sodium Chloride) 50 mls @ 100 mls/hr IV Q6H [facility] Insulin Human Lispro (Insulin Lispro 100 Unit/Ml 3 Ml Vial) 0 unit SUBCUT QIDACHS [facility]; Protocol Ondansetron HCl (Ondansetron Hcl 4 Mg/2 Ml Vial) 4 mg IVPUSH QID PRN PRN Reason: Nausea Oxycodone HCl (Oxycodone Hcl Immed Release 5 Mg Tablet) 5 mg PO Q6H PRN PRN Reason: Pain, Moderate (Pain Scale 4-6 Pharmacy Consult (Consult Rx Perform Med Rec) 1 each MISCELLANE ONCE PRN PRN Reason: Consult order Sodium Chloride (0.9 % Sodium Chloride Flush 3 Ml Syringe) 3 ml IVFLUSH QSHIFT [facility] Home Medications Medication Instructions Recorded Confirmed Last Taken Type atorvastatin 20 mg tablet 20 mg PO BEDTIME 04/13/22 05/01/22 04/12/22 History trazodone 100 mg tablet 200 mg PO BEDTIME 04/13/22 05/01/22 04/12/22 History citalopram 20 mg tablet 1 tab PO DAILY 05/05/22 Unknown History Physical Exam Vital Signs and Narrative: Vital Signs: Last Vital Signs Temp 98.2 F 05/05/22 13:12 Pulse 77 05/05/22 13:12 Resp 18 05/05/22 15:24 BP 144/73 H 05/05/22 13:12 Pulse Ox 96 05/05/22 13:12 O2 Del Method 05/05/22 13:12 BMI result Body Mass Index 36.8 Gen: in no acute distress HEENT: sclera anicteric, moist mucus membranes Neck: supple Lungs: clear to auscultation bilaterally Heart: regular rate and rhythm, no murmurs Abd: soft, non-tender, non-distended Ext: no edema Skin: redness of chest wall L>R Neuro: alert and oriented x3, no focal findings Psych: appropriate affect Results Labs CBC and Chem 7: 05/05/22 14:17 05/05/22 14:17 Labs: Laboratory Results - last 24 hr 05/05/22 05/05/22 05/05/22 14:17 14:17 14:17 MCV 92.2 MCH 29.5 MCHC 32.0 RDW 14.5 Plt Count 417 H MPV 9.8 Immature Gran % (Auto) 0.1 Neut % (Auto) 58.3 Lymph % (Auto) 30.5 [place] % (Auto) 7.5 Eos % (Auto) 3.1 Baso % (Auto) 0.5 Lymph # (Auto) 2.3 [place] # (Auto) 0.6 Eos # (Auto) 0.2 Baso # (Auto) 0.0 Abs Immat Gran (auto) 0.01 Absolute Neuts (auto) 4.5 Absolute Nucleated RBC 0.000 Nucleated RBC % (auto) 0.0 ESR 50 H Anion Gap 14 Estim Creat Clear Calc 41.7 Estimated GFR 54 Random Glucose 95 Calcium 8.6 Total Bilirubin < 0.2 AST 21 ALT 19 Alkaline Phosphatase 81 C-Reactive Protein 0.61 H Total Protein 6.4 L Albumin 3.6 COVID-19 ([facility]) COVID-19 Clin Com 05/05/22 15:22 MCV MCH MCHC RDW Plt Count MPV Immature Gran % (Auto) Neut % (Auto) Lymph % (Auto) [place] % (Auto) Eos % (Auto) Baso % (Auto) Lymph # (Auto) [place] # (Auto) Eos # (Auto) Baso # (Auto) Abs Immat Gran (auto) Absolute Neuts (auto) Absolute Nucleated RBC Nucleated RBC % (auto) ESR Anion Gap Estim Creat Clear Calc Estimated GFR Random Glucose Calcium Total Bilirubin AST ALT Alkaline Phosphatase C-Reactive Protein Total Protein Albumin COVID-19 ([facility]) Negative COVID-19 Clin Com See Note Assessment and Plan (1) Cellulitis of breast: Status: Acute Plan 72yo F with hx of LCIS s/p bilateral mastectomy, recent admission for bilateral chest wall cellulitis treated with IV vancomycin and pip-jia as well as I+D of a seroma. Presenting with fever and admitted to the surgical service for recurrent chest wall cellulitis. She is not meeting sepsis criteria at this time. # recurrent chest wall cellulitis - pip-jia + vanc as per Surgery team, follow BCx. ID consultation. # HTN - continue metoprolol + amlodipine # HLD - continue statin # neuropathy - continue gabapentin + amitriptylline # intermittent asthma - prn albuterol # mood disorder - citalopram + mirtazapine + trazodone # preDM - no insulin required # VTE ppx: LMWH Thank you for this consultation. We will continue to follow along with you in the hospital. Time Spent With Patient Time: Total time managing care of this patient today ____ minutes.
--- NOTE | 2022-05-05 16:30 | PC.NURSE ---
patient primary language [place] . Daughter at bedside to help interpret along with medical insurance biller . patient a/ox4 . pearrlla . Heart rate regular at70 beats per minute . breathing even and unlabored lungs clear throughout .patient has history of breast cancer . right total masectomy with lymph involvement . left partial masectomy . No blood pressure or IV placement on right side . Skin is pink warm and dry . abdomen soft . not tender with positive bowel sounds in all four quadrants . IV placed in left A.C labs obtained and sent . Patient on telemetry monitor . Vancomycin started as ordered . Another IV placed on left wrist and fluids started as ordered along with ,Tylenol and morphine for pain . patient aware of plan of care .
--- NOTE | 2022-05-05 16:31 | PC.NURSE ---
Patients skin is red and warm to touch on left side around partial mastectomy incisions along with mild pink tone to right side of total mastectomy area .patient has history of cellulites recurring . patient and family aware of plan of care .
[2022-05-05] MEDS: Dextrose 5 % and Lactated Ring 1,000 ML 100 ML IVCONT (16:36)
[2022-05-05 17:07] VITALS: BP 144/76; PULSE 69; RESP 20; TEMP 36.7; O2SAT 97
[2022-05-05 17:23] LABS: Glucose, Whole Blood 100 mg/dL (60-115)
[2022-05-05] MEDS: 0.9 % Sodium Chloride Flush 3 ML SYRINGE IVFLUSH (17:26)
[2022-05-05] MEDS: Enoxaparin Sodium 40 MG/0.4 ML SYRINGE SUBCUT (17:26)
[2022-05-05] MEDS: Piperacillin Sodium/Tazobactam 3.375 GM in 0.9 % Sodium Chloride 50 ML IV ×2 (17:26→21:30)
--- NOTE | 2022-05-05 20:32 | P.HPGS_ITS ---
History of Present Illness History of Present Illness Date of Service: 05/06/22 Chief complaint: chest wall cellulitis Narrative: Beatriz Aguayo is a 72 year old female returning with complaints of fever and pain in the left chest. She is status post bilateral mastectomy complicated by a seroma and cellulitis of the left chest wall. She was previously admitted for similar complaints and treated with IV antibiotics and subsequently discharged home on oral antibiotics with complete resolution of her symptoms. Yesterday she was visited by the VNA and found to have a fever of 102. Redness was noted in the left chest wall and she was subsequently asked to return to the emergency department. Initial evaluation in the ED revealed a normal temperature but redness in the chest wall. WBC was normal as well. She was admitted to the surgical service for further management and placed on IV Tylenol. Infectious disease consultation will be requested for further assistance with antibiotic management. Review of Systems Review of Systems: Yes all other systems are reviewed and are negative Constitutional: Constitutional: Reports body ache(s) and Reports weakness Respiratory: Respiratory: Denies chest congestion and Denies excessive phlegm production Gastrointestinal: Gastrointestinal: Denies nausea and Denies vomiting Integumentary/Breasts: Skin/Breast: Reports as per HPI Neurologic: Reports behavioral changes and Reports weakness Psychiatric: Psychiatric: Reports behavioral changes Hematologic/Lymphatic: Hematologic/Lymphatic: Denies lymphadenopathy PMFSH Past Medical History Medical History Arthritis Depression Diabetes 1.5, managed as type 2 GERD (gastroesophageal reflux disease) HTN (hypertension) IBS (irritable bowel syndrome) 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 Mother Heart disease Hypertension Colon cancer Maternal Grandmother Esophageal cancer Daughter Breast cancer Brother Colon cancer Sister Breast cancer Sister Breast cancer, Onset Age: 60 Surgical History Surgical History History of bilateral mastectomy (02/19/22) History of colonoscopy History of esophagogastroduodenoscopy (EGD) History of lumbar fusion History of lumpectomy of both breasts History of surgery Hx of appendectomy Hx of blepharoplasty Hx of cholecystectomy S/P bilateral mastectomy S/P ANDRÉS-BSO (total abdominal hysterectomy and bilateral salpingo-oophorectomy) Social History Social History Household Members: None Housing: Apartment Are you a primary child care lead teacher to a significant other at home: No Do you presently have visiting nurse or other home services: Yes Unable to assess alcohol history related to: Unknown Alcohol intake: never Patient Tobacco Use Status: Never used Tobacco e-Cigarette/Vaping Use: Never Used Second Hand Smoke Exposure: No Advance Directives Date on File: 09/26/21 service: No Current occupational status: disabled 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) Hearing needs: No Vision needs: Yes Meds Allergies Allergy/AdvReac Type Severity Reaction Status Date / Time No Known Allergies Allergy Verified 05/01/22 11:30 [No Known Allergies*] Active Medications: Current Medications Albuterol Sulfate (Albuterol Sulfate (0.083%) 2.5 Mg/3 Ml Vial.Neb) 2.5 mg INHALE Q6H PRN PRN Reason: shortness of breath or wheezing Albuterol Sulfate (Albuterol Sulfate 90 Mcg 8 Gm Inhaler) 1 puff INHALE QID PRN PRN Reason: SHORTNESS OF BREATH Amitriptyline HCl (Amitriptyline Hcl 10 Mg Tablet) 10 mg PO BEDTIME [facility] Amlodipine Besylate (Amlodipine Besylate 10 Mg Tablet) 10 mg PO DAILY [facility]; Protocol Atorvastatin Calcium (Atorvastatin Calcium 20 Mg Tablet) 20 mg PO BEDTIME [facility] Dextrose (Dextrose 50 % 25 Gm/50 Ml Syringe) 25 gm IVPUSH Q15M PRN; Protocol PRN Reason: per Hypoglycemia Standing Ord. Enoxaparin Sodium (Enoxaparin Sodium 40 Mg/0.4 Ml Syringe) 40 mg SUBCUT Q24H [facility] Last Admin: 05/05/22 17:26 Dose: 40 mg Escitalopram Oxalate (Escitalopram Oxalate 10 Mg Tablet) 10 mg PO DAILY [facility] Gabapentin (Gabapentin 400 Mg Capsule) 800 mg PO BID [facility] Glucose (Glucose Gel 15 Gm Gel..Gram.) 15 gm PO Q15M PRN; Protocol PRN Reason: per Hypoglycemia Standing Ord. Hydromorphone HCl (Hydromorphone Hcl 0.5 Mg/0.5 Ml Syringe) 0.5 mg IVPUSH Q3H PRN; Protocol PRN Reason: Pain, Severe (Pain Scale 7-10) Acetaminophen (Ofirmev) 1,000 mg in 100 mls @ 400 mls/hr IV Q6H [facility] Last Infusion: 05/05/22 17:19 Dose: Infused Dextrose/Lactated Ringer's (D5lr) 1,000 mls @ 100 mls/hr IVCONT .Q10H [facility] Last Admin: 05/05/22 16:36 Dose: 100 mls/hr Piperacillin Sod/Tazobactam (Sod 3.375 gm/ Sodium Chloride) 50 mls @ 100 mls/hr IV Q6H [facility] Last Infusion: 05/05/22 18:23 Dose: Infused Insulin Human Lispro (Insulin Lispro 100 Unit/Ml 3 Ml Vial) 0 unit SUBCUT QIDACHS [facility]; Protocol Last Admin: 05/05/22 17:20 Dose: Not Given Metoprolol Tartrate (Metoprolol Tartrate 50 Mg Tablet) 50 mg PO BID [facility]; Protocol Mirtazapine (Mirtazapine 15 Mg Tablet) 15 mg PO BEDTIME [facility] Omeprazole (Omeprazole 20 Mg Capsule.Dr) 20 mg PO DAILY@0630 [facility] Ondansetron HCl (Ondansetron Hcl 4 Mg/2 Ml Vial) 4 mg IVPUSH QID PRN PRN Reason: Nausea Oxycodone HCl (Oxycodone Hcl Immed Release 5 Mg Tablet) 5 mg PO Q6H PRN PRN Reason: Pain, Moderate (Pain Scale 4-6 Pharmacy Consult (Consult Rx Perform Med Rec) 1 each MISCELLANE ONCE PRN PRN Reason: Consult order Sodium Chloride (0.9 % Sodium Chloride Flush 3 Ml Syringe) 3 ml IVFLUSH QSHIFT [facility] Last Admin: 05/05/22 17:26 Dose: 3 ml Home Medications Medication Instructions Recorded Confirmed Last Taken Type atorvastatin 20 mg tablet 20 mg PO BEDTIME 04/13/22 05/05/22 05/04/22 History trazodone 100 mg tablet 200 mg PO BEDTIME 04/13/22 05/05/22 05/04/22 History citalopram 20 mg tablet 1 tab PO DAILY 05/05/22 05/05/22 05/05/22 History Physical Exam Vital Signs: Vital Signs: Last Vital Signs Temp 98.1 F 05/05/22 17:07 Pulse 69 05/05/22 17:07 Resp 20 05/05/22 17:07 BP 144/76 H 05/05/22 17:07 Pulse Ox 97 05/05/22 17:07 O2 Del Method 05/05/22 17:07 BMI result Body Mass Index 36.8 Const: General: comfortable and no acute distress Nutritional Appearance: well nourished Limitations: no limitations HEENT: Head: Yes normocephalic and Yes atraumatic Chest: Other: Slight redness in the incision on the left side with no seroma palpable. There is minimal tenderness to palpation. Right side reveals no erythema. Chest/axillae images: 1. 2. 3. Area of redness in mid incision Resp: Effort & Inspection: normal respiratory effort, no audible wheezes, no cough and no respiratory distress GI: Inspection: Yes normal to inspection Skin: Other: As noted in chest above. Extrem: General: Yes no clubbing, cyanosis or edema Results Results Labs: Short CBC 05/05/22 Range/Units 14:17 WBC 7.7 (4.8-10.8) X10*3/uL Hgb 10.2 L (12.0-16.0) g/dl Hct 31.9 L (37.0-47.0) % Plt Count 417 H (160-400) X10*3/uL BMP 05/05/22 14:17 Sodium 139 Potassium 4.5 Chloride 108 Carbon Dioxide 22 BUN 24 H Creatinine 1.01 Calcium 8.6 Liver Function 05/05/22 Range/Units 14:17 Total Bilirubin < 0.2 (0.0-1.0) mg/dL AST 21 (5-31) U/L ALT 19 (0-31) U/L Alkaline Phosphatase 81 (39-117) U/L Albumin 3.6 (3.5-5.0) g/dL Assessment and Plan (1) Cellulitis of breast: Status: Acute (2) Recurrent malignant neoplasm of right breast: Status: Resolved (3) S/P bilateral mastectomy: Status: Inactive Plan 72-year-old female patient with recurrent cellulitis of the left chest wall found to have fever at home visiting nurses. Patient readmitted for further evaluation, IV antibiotics. Patient continues to have an area of cellulitis in the left chest with no palpable seroma appreciated. Patient restarted on Zosyn and Infectious Disease consultation requested for further management. May need to stop all antibiotics and culture for further free fevers. Time Spent With Patient Time: Total time managing care of this patient today ____ minutes. Quality Stroke Does the patient have a stroke diagnosis?: No VTE Prior VTE?: No VTE Risk Level:: Surgical - moderate VTE Device Contraindication: N/A - Device Ordered VTE Drug Contraindication: N/A - Med Ordered Procedures Date of Service Date of Service: 05/06/22
[2022-05-05] MEDS: Atorvastatin Calcium 20 MG TABLET PO (20:57)
[2022-05-05] MEDS: Metoprolol Tartrate 50 MG TABLET PO (20:58)
[2022-05-05] MEDS: Gabapentin 400 MG CAPSULE 800 MG PO (20:58)
[2022-05-05] MEDS: Mirtazapine 15 MG TABLET PO (20:58)
[2022-05-05 21:15] LABS: Glucose, Whole Blood 108 mg/dL (60-115)
[2022-05-05] MEDS: Amitriptyline HCl 10 MG TABLET PO (21:31)
[2022-05-05] MEDS: HYDROmorphone HCl 0.5 MG/0.5 ML SYRINGE IVPUSH (21:31)
[2022-05-06 00:05] VITALS: BP 157/78; PULSE 62; RESP 16; TEMP 36.4; O2SAT 100
[2022-05-06] MEDS: Dextrose 5 % and Lactated Ring 1,000 ML 100 ML IVCONT (00:59)
[2022-05-06] MEDS: oxyCODONE HCl Immed Release 5 MG TABLET PO ×2 (01:02→15:26)
[2022-05-06 02:48] VITALS: BP 126/59; PULSE 59; RESP 16; TEMP 36.4; O2SAT 97
[2022-05-06] MEDS: Acetaminophen 1,000 MG/100 ML PIGGYBACK 400 MG IV ×4 (02:58→21:06)
[2022-05-06] MEDS: Piperacillin Sodium/Tazobactam 3.375 GM in 0.9 % Sodium Chloride 50 ML IV ×4 (04:09→21:33)
[2022-05-06] MEDS: Omeprazole 20 MG CAPSULE.DR PO (06:05)
[2022-05-06 06:48] LABS: MANUAL DIFF FLAG NO
[2022-05-06 06:51] LABS: Basophils Percent Auto 0.7 % (0-2); Eosinophils Absolute Auto 0.3 X10*3/uL (0.0-0.4); Eosinophils Percent Auto 5.8 % (0-4); Hematocrit 33.2 % (37.0-47.0); Hemoglobin 10.6 g/dl (12.0-16.0); Imm Gran Abs Auto 0.02 X10*3/uL (0.00-0.03); Imm Gran Pct Auto 0.3 % (0.0-0.4); Lymphocytes Absolute Auto 1.3 X10*3/uL (1.2-4.9); Lymphocytes Percent Auto 21.5 % (20-40); Mean Corpuscular HGB Conc 31.9 g/dl (31.0-35.0); Mean Corpuscular Hemoglobin 29.1 pg (27.0-33.0); Mean Corpuscular Volume 91.2 fL (80.0-98.0); Mean Platelet Volume 9.7 fL (9.4-12.3); Monocytes Absolute Auto 0.5 X10*3/uL (0.1-1.2); Monocytes Percent Auto 8.6 % (2-11); Neutrophils Absolute Auto 3.7 x10*3/uL (2.0-8.3); Neutrophils Percent Auto 63.1 % (45-73); Platelet Count 378 X10*3/uL (160-400); Red Blood Count 3.64 X10*6/uL (4.20-5.50); Red Cell Distribution Width 14.6 % (11.0-16.0); White Blood Count 5.9 X10*3/uL (4.8-10.8)
[2022-05-06 07:05] LABS: Glucose, Whole Blood 94 mg/dL (60-115)
[2022-05-06 07:17] LABS: Anion Gap 14 (12-20); Blood Urea Nitrogen 19 mg/dL (9-16); Calcium 9.2 mg/dL (8.4-10.2); Carbon Dioxide 22 mmol/L (22-29); Chloride 109 mmol/L (96-108); Creatinine Clr Calc Pharmacy 42.1; Estimated Glomerular Filt Rate 54; Glucose Random 102 mg/dL (60-115); Potassium 4.4 mmol/L (3.3-5.1); Sodium 141 mmol/L (135-145)
[2022-05-06 07:24] VITALS: BP 144/68; PULSE 66; RESP 14; TEMP 36.6; O2SAT 98
[2022-05-06] MEDS: HYDROmorphone HCl 0.5 MG/0.5 ML SYRINGE IVPUSH (07:34)
--- NOTE | 2022-05-06 08:39 | PHA.PROG ---
Admission Date/Time: May 05, 2022 15:04 Indication: recurrent chest wall cellulitis Weight in k.111 kg Adjusted body weight in Kg: Petros body weight in Kg: Obesity Dosing Indication % IBW: Serum Creatinine - Last 168 Hours 05/05/22 05/06/22 14:17 06:21 Creatinine 1.01 1.00 Estimated CrCl and GFR - Last 168 Hours 05/05/22 05/06/22 14:17 06:21 Estim Creat Clear Calc 41.7 42.1 Estimated GFR 54 54 Vancomycin Loading Dose: 2000 mg Current Vancomycin Dosing Regimen: 1000 mg Q24H Date and Time for next Vancomycin Level to be drawn: 05/07 @ 1300 Pharmacist Comments on Vancomycin Plan: Patient received an adequate vancomycin 2 g loading for their weight. Patient is obese with a BMI of 36.8 therefore requires careful monitor due to high volume of distribution. Patient recently received vancomycin last month. Vancomycin 750 mg Q24H was subtherapuetic for her. Will start patient on vancomycin 1000 mg Q24H. Expected AUC 593 with a trough of 18. Due to high expect AUC on insight will get a trough of prior to 3rd dose to access for safety. Pharmacy will continue to monitor renal function daily. Starla Loomis, Rin Vancomycin dosing will take advantage of [employer] as a clinical decision support tool that uses Bayesian modeling to calculate individual patient's pharmacokinetic parameters and forecast the patient's drug concentration time course with the target goal AUC 24 range of 400 - 600 mg/L/hr.
[2022-05-06 08:47] VITALS: BP 158/74; PULSE 73; RESP 18; TEMP 36.9; O2SAT 97
[2022-05-06 08:54] LABS: Glucose, Whole Blood 114 mg/dL (60-115)
[2022-05-06] MEDS: Escitalopram Oxalate 10 MG TABLET PO (10:33)
[2022-05-06] MEDS: Metoprolol Tartrate 50 MG TABLET PO ×2 (10:33→21:06)
[2022-05-06] MEDS: amLODIPine Besylate 10 MG TABLET PO (10:33)
[2022-05-06] MEDS: Gabapentin 400 MG CAPSULE 800 MG PO ×2 (10:33→21:07)
[2022-05-06] MEDS: 0.9 % Sodium Chloride Flush 3 ML SYRINGE IVFLUSH ×3 (10:36→21:07)
--- NOTE | 2022-05-06 10:36 | HO.PM.IMPN ---
Subjective Subjective Date of Service: 05/06/22 Interval History: History obtained via loan examiner, patient complaining of persistent left chest wall pain, denies fever chills, tolerating diet no nausea, no vomiting, no abdominal pain, no other acute issues overnight a new IV site placed on right leg by is/it project manager of Systems Review of Systems: Yes all other systems are reviewed and are negative Physical Exam Vital Signs: Vital Signs: Last Vital Signs Temp 98.4 F 05/06/22 08:47 Pulse 73 05/06/22 08:47 Resp 18 05/06/22 08:47 BP 158/74 H 05/06/22 08:47 Pulse Ox 97 05/06/22 08:47 O2 Del Method 05/06/22 08:47 BMI result Body Mass Index 36.8 Const: Other: Gen: Awake alert x3, in no acute distress Neck: supple Lungs: clear to auscultation bilaterally Heart: regular rate and rhythm, no murmurs Abd: soft, non-tender, non-distended Ext: no edema Skin: redness of chest wall L>R, mild warmth and tenderness to palpation Neuro: alert and oriented x3, no focal findings Psych: appropriate affect Objective Data Active Medications Albuterol Sulfate (Albuterol Sulfate (0.083%) 2.5 Mg/3 Ml Vial.Neb) 2.5 mg INHALE Q6H PRN PRN Reason: shortness of breath or wheezing Albuterol Sulfate (Albuterol Sulfate 90 Mcg 8 Gm Inhaler) 1 puff INHALE QID PRN PRN Reason: SHORTNESS OF BREATH Amitriptyline HCl (Amitriptyline Hcl 10 Mg Tablet) 10 mg PO BEDTIME [facility] Last Admin: 05/05/22 21:31 Dose: 10 mg Documented By: STEPHEN Amlodipine Besylate (Amlodipine Besylate 10 Mg Tablet) 10 mg PO DAILY [facility]; Protocol Atorvastatin Calcium (Atorvastatin Calcium 20 Mg Tablet) 20 mg PO BEDTIME [facility] Last Admin: 05/05/22 20:57 Dose: 20 mg Documented By: STEPHEN Dextrose (Dextrose 50 % 25 Gm/50 Ml Syringe) 25 gm IVPUSH Q15M PRN; Protocol PRN Reason: per Hypoglycemia Standing Ord. Enoxaparin Sodium (Enoxaparin Sodium 40 Mg/0.4 Ml Syringe) 40 mg SUBCUT Q24H [facility] Last Admin: 05/05/22 17:26 Dose: 40 mg Documented By: LAMAR Escitalopram Oxalate (Escitalopram Oxalate 10 Mg Tablet) 10 mg PO DAILY [facility] Gabapentin (Gabapentin 400 Mg Capsule) 800 mg PO BID [facility] Last Admin: 05/05/22 20:58 Dose: 800 mg Documented By: STEPHEN Glucose (Glucose Gel 15 Gm Gel..Gram.) 15 gm PO Q15M PRN; Protocol PRN Reason: per Hypoglycemia Standing Ord. Hydromorphone HCl (Hydromorphone Hcl 0.5 Mg/0.5 Ml Syringe) 0.5 mg IVPUSH Q3H PRN; Protocol PRN Reason: Pain, Severe (Pain Scale 7-10) Last Admin: 05/06/22 07:34 Dose: 0.5 mg Documented By: MIRNA Acetaminophen (Ofirmev) 1,000 mg in 100 mls @ 400 mls/hr IV Q6H [facility] Last Infusion: 05/06/22 03:13 Dose: 0 mls/hr Documented By: JAE Dextrose/Lactated Ringer's (D5lr) 1,000 mls @ 100 mls/hr IVCONT .Q10H [facility] Last Admin: 05/06/22 00:59 Dose: 100 mls/hr Documented By: JAE Piperacillin Sod/Tazobactam (Sod 3.375 gm/ Sodium Chloride) 50 mls @ 100 mls/hr IV Q6H [facility] Last Infusion: 05/06/22 04:38 Dose: 0 mls/hr Documented By: JAE Vancomycin HCl 1,000 mg/ (Sodium Chloride) 270 mls @ 270 mls/hr IV Q24H [facility] Insulin Human Lispro (Insulin Lispro 100 Unit/Ml 3 Ml Vial) 0 unit SUBCUT QIDACHS [facility]; Protocol Last Admin: 05/06/22 07:20 Dose: Not Given Documented By: MIRNA Non-Admin Reason: No Insulin Coverage Metoprolol Tartrate (Metoprolol Tartrate 50 Mg Tablet) 50 mg PO BID [facility]; Protocol Last Admin: 05/05/22 20:58 Dose: 50 mg Documented By: STEPHEN Mirtazapine (Mirtazapine 15 Mg Tablet) 15 mg PO BEDTIME [facility] Last Admin: 05/05/22 20:58 Dose: 15 mg Documented By: STEPHEN Omeprazole (Omeprazole 20 Mg Capsule.) 20 mg PO DAILY@0630 [facility] Last Admin: 05/06/22 06:05 Dose: 20 mg Documented By: JAE Ondansetron HCl (Ondansetron Hcl 4 Mg/2 Ml Vial) 4 mg IVPUSH QID PRN PRN Reason: Nausea Oxycodone HCl (Oxycodone Hcl Immed Release 5 Mg Tablet) 5 mg PO Q6H PRN PRN Reason: Pain, Moderate (Pain Scale 4-6 Last Admin: 05/06/22 01:02 Dose: 5 mg Documented By: JAE Pharmacy Consult (Consult Rx Perform Med Rec) 1 each MISCELLANE ONCE PRN PRN Reason: Consult order Pharmacy Consult (Consult Rx Vancomycin Dosing) 1 each MISCELLANE DAILY PRN PRN Reason: Consult order Sodium Chloride (0.9 % Sodium Chloride Flush 3 Ml Syringe) 3 ml IVFLUSH QSHIFT [facility] Last Admin: 05/05/22 23:04 Dose: Not Given Documented By: JAE Non-Admin Reason: IV Running Labs CBC & Chem 7: 05/06/22 06:21 05/06/22 06:21 Labs: Laboratory Results - last 24 hr 05/05/22 05/05/22 05/05/22 14:17 14:17 14:17 MCV 92.2 MCH 29.5 MCHC 32.0 RDW 14.5 Plt Count 417 H MPV 9.8 Immature Gran % (Auto) 0.1 Neut % (Auto) 58.3 Lymph % (Auto) 30.5 [place] % (Auto) 7.5 Eos % (Auto) 3.1 Baso % (Auto) 0.5 Lymph # (Auto) 2.3 [place] # (Auto) 0.6 Eos # (Auto) 0.2 Baso # (Auto) 0.0 Abs Immat Gran (auto) 0.01 Absolute Neuts (auto) 4.5 Absolute Nucleated RBC 0.000 Nucleated RBC % (auto) 0.0 ESR 50 H Anion Gap 14 Estim Creat Clear Calc 41.7 Estimated GFR 54 POC Glucose Random Glucose 95 Calcium 8.6 Total Bilirubin < 0.2 AST 21 ALT 19 Alkaline Phosphatase 81 C-Reactive Protein 0.61 H Total Protein 6.4 L Albumin 3.6 COVID-19 ([facility]) COVID-19 Clin Com 05/05/22 05/05/22 05/05/22 15:22 17:16 20:56 MCV MCH MCHC RDW Plt Count MPV Immature Gran % (Auto) Neut % (Auto) Lymph % (Auto) [place] % (Auto) Eos % (Auto) Baso % (Auto) Lymph # (Auto) [place] # (Auto) Eos # (Auto) Baso # (Auto) Abs Immat Gran (auto) Absolute Neuts (auto) Absolute Nucleated RBC Nucleated RBC % (auto) ESR Anion Gap Estim Creat Clear Calc Estimated GFR POC Glucose 100 108 Random Glucose Calcium Total Bilirubin AST ALT Alkaline Phosphatase C-Reactive Protein Total Protein Albumin COVID-19 ([facility]) Negative COVID-19 Clin Com See Note 05/06/22 05/06/22 05/06/22 06:21 06:21 06:59 MCV 91.2 MCH 29.1 MCHC 31.9 RDW 14.6 Plt Count 378 MPV 9.7 Immature Gran % (Auto) 0.3 Neut % (Auto) 63.1 Lymph % (Auto) 21.5 [place] % (Auto) 8.6 Eos % (Auto) 5.8 H Baso % (Auto) 0.7 Lymph # (Auto) 1.3 [place] # (Auto) 0.5 Eos # (Auto) 0.3 Baso # (Auto) 0.0 Abs Immat Gran (auto) 0.02 Absolute Neuts (auto) 3.7 Absolute Nucleated RBC 0.000 Nucleated RBC % (auto) 0.0 ESR Anion Gap 14 Estim Creat Clear Calc 42.1 Estimated GFR 54 POC Glucose 94 Random Glucose 102 Calcium 9.2 D Total Bilirubin AST ALT Alkaline Phosphatase C-Reactive Protein Total Protein Albumin COVID-19 ([facility]) COVID-19 Clin Com 05/06/22 08:49 MCV MCH MCHC RDW Plt Count MPV Immature Gran % (Auto) Neut % (Auto) Lymph % (Auto) [place] % (Auto) Eos % (Auto) Baso % (Auto) Lymph # (Auto) [place] # (Auto) Eos # (Auto) Baso # (Auto) Abs Immat Gran (auto) Absolute Neuts (auto) Absolute Nucleated RBC Nucleated RBC % (auto) ESR Anion Gap Estim Creat Clear Calc Estimated GFR POC Glucose 114 Random Glucose Calcium Total Bilirubin AST ALT Alkaline Phosphatase C-Reactive Protein Total Protein Albumin COVID-19 ([facility]) COVID-19 Clin Com Assessment and Plan (1) Cellulitis of breast: Status: Acute (2) HTN (hypertension): Status: Acute Plan 72yo F with hx of LCIS s/p bilateral mastectomy, recent admission for bilateral chest wall cellulitis treated with IV vancomycin and pip-jia as well as I+D of a seroma.? Presenting with fever and admitted to the surgical service for recurrent chest wall cellulitis.? She is not meeting sepsis criteria at this time. # recurrent Left chest wall cellulitis - continue pip-jia + vanc as per Surgery team, blood cultures x2 pending patient afebrile normal WBC count DC IV fluids # HTN - fluctuating blood pressures, continue metoprolol + amlodipine and follow BP # HLD - continue statin # neuropathy - continue gabapentin + amitriptylline # intermittent asthma - prn albuterol # mood disorder - citalopram + mirtazapine + trazodone # preDM - no insulin required, will DC insulin sliding scale and point of care blood sugar monitoring. # VTE ppx: LMWH Time Spent With Patient Time: Total time managing care of this patient today ____ minutes. Quality Stroke Does the patient have a stroke diagnosis?: No VTE Prior VTE?: No VTE Risk Level:: Surgical - moderate VTE Device Contraindication: N/A - Device Ordered VTE Drug Contraindication: N/A - Med Ordered
--- NOTE | 2022-05-06 10:42 | PC.NURSE ---
IV placed in right foot per Dr. Ivory
--- NOTE | 2022-05-06 11:08 | MHC.CM.PN ---
IMM DELIVERED CM MET WITH PT AND PARTY BUS DRIVER. LIVES ALONE IN AN APT. HAS 41 DEVELOPMENT TRAINER HOURS WEEKLY. IS ACTIVE WITH [facility], RETURN REFERRAL SENT. USES A CANE AND A ROLLATOR. +HCPON FILE. COVID VAX X3 PCP ALOK MOURA. DP: HOME WITH RESUMPTION OF DEVELOPMENT TRAINER AND [facility] SERVICES. DEVELOPMENT TRAINER WILL TRANSPORT ON DC. CM WILL CONTINUE TO FOLLOW.
[2022-05-06 15:14] VITALS: BP 139/63; PULSE 66; RESP 18; TEMP 36.4; O2SAT 97
[2022-05-06] MEDS: Enoxaparin Sodium 40 MG/0.4 ML SYRINGE SUBCUT (15:19)
[2022-05-06] MEDS: vancomycin HCL 1,000 MG in 0.9 % Sodium Chloride 250 ML 270 MG IV (15:50)
[2022-05-06 19:15] VITALS: BP 144/69; PULSE 66; RESP 18; TEMP 36.4; O2SAT 97
[2022-05-06] MEDS: Mirtazapine 15 MG TABLET PO (21:06)
[2022-05-06] MEDS: Atorvastatin Calcium 20 MG TABLET PO (21:07)
[2022-05-06] MEDS: Amitriptyline HCl 10 MG TABLET PO (21:07)
[2022-05-07] MEDS: HYDROmorphone HCl 0.5 MG/0.5 ML SYRINGE IVPUSH ×3 (01:44→17:10)
[2022-05-07] MEDS: Acetaminophen 1,000 MG/100 ML PIGGYBACK 400 MG IV ×2 (02:51→08:50)
[2022-05-07 03:26] VITALS: BP 137/62; PULSE 56; RESP 14; TEMP 36.2; O2SAT 95
[2022-05-07] MEDS: Piperacillin Sodium/Tazobactam 3.375 GM in 0.9 % Sodium Chloride 50 ML IV ×4 (04:06→21:48)
[2022-05-07 06:14] LABS: Creatinine Clr Calc Pharmacy 34.2; Estimated Glomerular Filt Rate 43
[2022-05-07] MEDS: Omeprazole 20 MG CAPSULE.DR PO (06:30)
[2022-05-07 07:27] VITALS: BP 154/73; PULSE 60; RESP 16; TEMP 36.8; O2SAT 97
[2022-05-07] MEDS: 0.9 % Sodium Chloride Flush 3 ML SYRINGE IVFLUSH ×2 (08:49→22:49)
[2022-05-07] MEDS: Metoprolol Tartrate 50 MG TABLET PO ×2 (08:49→19:28)
[2022-05-07] MEDS: Escitalopram Oxalate 10 MG TABLET PO (08:49)
[2022-05-07] MEDS: Gabapentin 400 MG CAPSULE 800 MG PO ×2 (08:49→19:28)
[2022-05-07] MEDS: amLODIPine Besylate 10 MG TABLET PO (08:49)
[2022-05-07 08:55] VITALS: PULSE 68
--- NOTE | 2022-05-07 10:40 | P.PNIM_ITS ---
Subjective Subjective Date of Service: 05/07/22 Interval History: Feels better than yesterday less left chest wall discomfort, no fevers no chills, had mild nausea and two dark colored stools, tolerating diet no nausea no vomiting no abdominal pain, no urinary symptoms. Review of Systems Review of Systems: Yes all other systems are reviewed and are negative Physical Exam Vital Signs: Vital Signs: Last Vital Signs Temp 98.2 F 05/07/22 07:27 Pulse 68 05/07/22 08:55 Resp 16 05/07/22 07:27 BP 154/73 H 05/07/22 07:27 Pulse Ox 97 05/07/22 07:27 O2 Del Method 05/07/22 07:27 BMI result Body Mass Index 36.8 Const: Other: Gen:? Awake alert x3, in no acute distress Neck: supple Lungs: clear to auscultation bilaterally Heart: regular rate and rhythm, no murmurs Abd: soft, non-tender, non-distended Ext: no edema Skin: redness of L chest wall better since yesterday, mild tenderness to palpation. Mild right-sided erythema Neuro: alert and oriented x3, no focal findings Psych: appropriate affect Objective Data Active Medications Albuterol Sulfate (Albuterol Sulfate (0.083%) 2.5 Mg/3 Ml Vial.Neb) 2.5 mg INHALE Q6H PRN PRN Reason: shortness of breath or wheezing Albuterol Sulfate (Albuterol Sulfate 90 Mcg 8 Gm Inhaler) 1 puff INHALE QID PRN PRN Reason: SHORTNESS OF BREATH Amitriptyline HCl (Amitriptyline Hcl 10 Mg Tablet) 10 mg PO BEDTIME [facility] Last Admin: 05/06/22 21:07 Dose: 10 mg Documented By: CARMINE Amlodipine Besylate (Amlodipine Besylate 10 Mg Tablet) 10 mg PO DAILY [facility]; Protocol Last Admin: 05/07/22 08:49 Dose: 10 mg Documented By: JODY Atorvastatin Calcium (Atorvastatin Calcium 20 Mg Tablet) 20 mg PO BEDTIME [facility] Last Admin: 05/06/22 21:07 Dose: 20 mg Documented By: CARMINE Enoxaparin Sodium (Enoxaparin Sodium 40 Mg/0.4 Ml Syringe) 40 mg SUBCUT Q24H [facility] Last Admin: 05/06/22 15:19 Dose: 40 mg Documented By: ANGELA Escitalopram Oxalate (Escitalopram Oxalate 10 Mg Tablet) 10 mg PO DAILY [facility] Last Admin: 05/07/22 08:49 Dose: 10 mg Documented By: JODY Gabapentin (Gabapentin 400 Mg Capsule) 800 mg PO BID [facility] Last Admin: 05/07/22 08:49 Dose: 800 mg Documented By: JODY Hydromorphone HCl (Hydromorphone Hcl 0.5 Mg/0.5 Ml Syringe) 0.5 mg IVPUSH Q3H PRN; Protocol PRN Reason: Pain, Severe (Pain Scale 7-10) Last Admin: 05/07/22 09:14 Dose: 0.5 mg Documented By: JODY Acetaminophen (Ofirmev) 1,000 mg in 100 mls @ 400 mls/hr IV Q6H [facility] Last Infusion: 05/07/22 09:19 Dose: 0 mls/hr Documented By: JODY Piperacillin Sod/Tazobactam (Sod 3.375 gm/ Sodium Chloride) 50 mls @ 100 mls/hr IV Q6H [facility] Last Infusion: 05/07/22 09:56 Dose: 0 mls/hr Documented By: JODY Vancomycin HCl 1,000 mg/ (Sodium Chloride) 270 mls @ 270 mls/hr IV Q24H [facility] Last Infusion: 05/06/22 17:00 Dose: 0 mls/hr Documented By: ANGELA Metoprolol Tartrate (Metoprolol Tartrate 50 Mg Tablet) 50 mg PO BID [facility]; Protocol Last Admin: 05/07/22 08:49 Dose: 50 mg Documented By: JODY Mirtazapine (Mirtazapine 15 Mg Tablet) 15 mg PO BEDTIME [facility] Last Admin: 05/06/22 21:06 Dose: 15 mg Documented By: CARMINE Omeprazole (Omeprazole 20 Mg Capsule.) 20 mg PO DAILY@0630 [facility] Last Admin: 05/07/22 06:30 Dose: 20 mg Documented By: CARMINE Ondansetron HCl (Ondansetron Hcl 4 Mg/2 Ml Vial) 4 mg IVPUSH QID PRN PRN Reason: Nausea Oxycodone HCl (Oxycodone Hcl Immed Release 5 Mg Tablet) 5 mg PO Q6H PRN PRN Reason: Pain, Moderate (Pain Scale 4-6 Last Admin: 05/06/22 15:26 Dose: 5 mg Documented By: ANGELA Pharmacy Consult (Consult Rx Perform Med Rec) 1 each MISCELLANE ONCE PRN PRN Reason: Consult order Pharmacy Consult (Consult Rx Vancomycin Dosing) 1 each MISCELLANE DAILY PRN PRN Reason: Consult order Sodium Chloride (0.9 % Sodium Chloride Flush 3 Ml Syringe) 3 ml IVFLUSH QSHIFT [facility] Last Admin: 05/07/22 08:49 Dose: 3 ml Documented By: JODY Labs CBC & Chem 7: 05/06/22 06:21 05/07/22 05:15 Labs: Laboratory Results - last 24 hr 05/07/22 05:15 Estim Creat Clear Calc 34.2 Estimated GFR 43 Microbiology Microbiology Results: Microbiology 05/05/22 14:28 Blood Culture - Preliminary Blood - Venous No growth after 24 hours. 05/05/22 14:17 Blood Culture - Preliminary Blood - Venous No growth after 24 hours. Assessment and Plan (1) Cellulitis of breast: Status: Acute (2) HTN (hypertension): Status: Acute Plan 72yo F with hx of LCIS s/p bilateral mastectomy, recent admission for bilateral chest wall cellulitis treated with IV vancomycin and pip-jia as well as I+D of a seroma.? Presenting with fever and admitted to the surgical service for recurren t chest wall cellulitis.? She is not meeting sepsis criteria at this time. # recurrent Left chest wall cellulitis Less redness and discomfort - on IV pip-jia + vanc day as per Surgery team, blood cultures x2 negative, patient afebrile normal WBC count Noted to have slight bump in creatinine will DC vancomycin no prior history of MRSA, await ID input # HTN - fluctuating blood pressures, continue metoprolol + amlodipine and follow BP # chronic kidney disease stage 3 # HLD - continue statin # neuropathy - continue gabapentin + amitriptylline # intermittent asthma - no acute exacerbation, prn albuterol # mood disorder - stable mood, citalopram + mirtazapine + trazodone # preDM - no insulin required, will DC insulin sliding scale and point of care blood sugar monitoring. # VTE ppx: LMWH Time Spent With Patient Time: Total time managing care of this patient today ____ minutes. Quality Stroke Does the patient have a stroke diagnosis?: No VTE Prior VTE?: No VTE Risk Level:: Surgical - moderate VTE Device Contraindication: N/A - Device Ordered VTE Drug Contraindication: N/A - Med Ordered
[2022-05-07] MEDS: Lactated Ringers 1,000 ML 100 ML IVCONT (12:05)
[2022-05-07] MEDS: ondansetron HCL 4 MG/2 ML VIAL IVPUSH (12:26)
--- NOTE | 2022-05-07 13:12 | MHC.CM.PN ---
PER MD ROUNDS, PT NOT YET MEDICALLY CLEARED TO DC DCP REMAINS HOME WITH RESUMPTION OF PATENTS EXAMINER AND [facility] SERVICES PATENTS EXAMINER TO TRANSPORT
--- NOTE | 2022-05-07 15:02 | W.PM.IDCN ---
History of Present Illness Data of Consult Service Date: 05/07/22 Requesting physician: Renard Malik Primary Care Provider: ARON Olivia Reason for consult: cellulitis,recurrent breast She presents with reddened chest wall She has had modified radical right,radical left mastectomy 02/19 after diagnosis of malignancy. She had fever after and required drains. She has had redness bilateral breast since with discomfort and fever to 102. She has had multiple antibiotics and last 05/01 was on Levaquin and flagyl. She has no positive cultures blood or wound. 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 Mother Heart disease Hypertension Colon cancer Maternal Grandmother Esophageal cancer Daughter Breast cancer Brother Colon cancer Sister Breast cancer Sister Breast cancer, Onset Age: 60 Family history: reviewed and not pertinent Surgical History Surgical History History of bilateral mastectomy (02/19/22) History of colonoscopy History of esophagogastroduodenoscopy (EGD) History of lumbar fusion History of lumpectomy of both breasts History of surgery Hx of appendectomy Hx of blepharoplasty Hx of cholecystectomy S/P bilateral mastectomy S/P [id number] (total abdominal hysterectomy and bilateral salpingo-oophorectomy) Social History Social History Household Members: None Housing: Apartment Are you a primary career counselor to a significant other at home: No Do you presently have visiting nurse or other home services: Yes Unable to assess alcohol history related to: Unknown Alcohol intake: never Patient Tobacco Use Status: Never used Tobacco Smoked in Last 30 Days: No e-Cigarette/Vaping Use: Never Used Second Hand Smoke Exposure: No Use of substances other than those prescribed or required for medical reasons: No Currently Displaying Signs/Symptoms of Drug Intoxication Withdrawal: No Have you been hit, kicked, punched, or otherwise hurt by someone within the past year? If so, by whom?: No Do you feel safe in your current relationship?: No Current Relationship Is there a partner from a previous relationship who is making you feel unsafe now?: No Are you made to feel afraid or neglected: No Advance Directives: Yes Advance Directives on File: Yes Advance Directives Date on File: 09/26/21 Do you have thoughts of harming others: None Do you have a plan to hurt others: No Plan Recently lost weight without trying: No Eating poorly because of decreased appetite: No Nutrition Risks: No Nutritional Risk Patient : No : No Poor oral hygiene: No service: No Current occupational status: disabled 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) Hearing needs: No Vision needs: Yes Meds Allergies Allergy/AdvReac Type Severity Reaction Status Date / Time No Known Allergies Allergy Verified 05/01/22 11:30 [No Known Allergies*] Active Medications: Current Medications Acetaminophen (Acetaminophen 325 Mg Tablet) 650 mg PO Q6H PRN PRN Reason: Pain, Mild (Pain Scale 1-3) Albuterol Sulfate (Albuterol Sulfate (0.083%) 2.5 Mg/3 Ml Vial.Neb) 2.5 mg INHALE Q6H PRN PRN Reason: shortness of breath or wheezing Albuterol Sulfate (Albuterol Sulfate 90 Mcg 8 Gm Inhaler) 1 puff INHALE QID PRN PRN Reason: SHORTNESS OF BREATH Amitriptyline HCl (Amitriptyline Hcl 10 Mg Tablet) 10 mg PO BEDTIME [facility] Last Admin: 05/06/22 21:07 Dose: 10 mg Amlodipine Besylate (Amlodipine Besylate 10 Mg Tablet) 10 mg PO DAILY [facility]; Protocol Last Admin: 05/07/22 08:49 Dose: 10 mg Atorvastatin Calcium (Atorvastatin Calcium 20 Mg Tablet) 20 mg PO BEDTIME [facility] Last Admin: 05/06/22 21:07 Dose: 20 mg Enoxaparin Sodium (Enoxaparin Sodium 40 Mg/0.4 Ml Syringe) 40 mg SUBCUT Q24H [facility] Last Admin: 05/06/22 15:19 Dose: 40 mg Escitalopram Oxalate (Escitalopram Oxalate 10 Mg Tablet) 10 mg PO DAILY [facility] Last Admin: 05/07/22 08:49 Dose: 10 mg Gabapentin (Gabapentin 400 Mg Capsule) 800 mg PO BID [facility] Last Admin: 05/07/22 08:49 Dose: 800 mg Hydromorphone HCl (Hydromorphone Hcl 0.5 Mg/0.5 Ml Syringe) 0.5 mg IVPUSH Q3H PRN; Protocol PRN Reason: Pain, Severe (Pain Scale 7-10) Last Admin: 05/07/22 09:14 Dose: 0.5 mg Piperacillin Sod/Tazobactam (Sod 3.375 gm/ Sodium Chloride) 50 mls @ 100 mls/hr IV Q6H [facility] Last Infusion: 05/07/22 09:56 Dose: Infused Lactated Ringer's (Lr) 1,000 mls @ 100 mls/hr IVCONT .Q10H [facility] Stop: 05/07/22 20:59 Last Admin: 05/07/22 12:05 Dose: 100 mls/hr Metoprolol Tartrate (Metoprolol Tartrate 50 Mg Tablet) 50 mg PO BID [facility]; Protocol Last Admin: 05/07/22 08:49 Dose: 50 mg Mirtazapine (Mirtazapine 15 Mg Tablet) 15 mg PO BEDTIME [facility] Last Admin: 05/06/22 21:06 Dose: 15 mg Omeprazole (Omeprazole 20 Mg Capsule.Dr) 20 mg PO DAILY@0630 [facility] Last Admin: 05/07/22 06:30 Dose: 20 mg Ondansetron HCl (Ondansetron Hcl 4 Mg/2 Ml Vial) 4 mg IVPUSH QID PRN PRN Reason: Nausea Last Admin: 05/07/22 12:26 Dose: 4 mg Oxycodone HCl (Oxycodone Hcl Immed Release 5 Mg Tablet) 5 mg PO Q6H PRN PRN Reason: Pain, Moderate (Pain Scale 4-6 Last Admin: 05/06/22 15:26 Dose: 5 mg Pharmacy Consult (Consult Rx Perform Med Rec) 1 each MISCELLANE ONCE PRN PRN Reason: Consult order Sodium Chloride (0.9 % Sodium Chloride Flush 3 Ml Syringe) 3 ml IVFLUSH QSHIFT [facility] Last Admin: 05/07/22 08:49 Dose: 3 ml Home Medications Medication Instructions Recorded Confirmed Last Taken Type atorvastatin 20 mg tablet 20 mg PO BEDTIME 04/13/22 05/05/22 05/04/22 History trazodone 100 mg tablet 200 mg PO BEDTIME 04/13/22 05/05/22 05/04/22 History citalopram 20 mg tablet 1 tab PO DAILY 05/05/22 05/05/22 05/05/22 History Physical Exam Vital Signs: Vital Signs: Last Vital Signs Temp 98.2 F 05/07/22 07:27 Pulse 68 05/07/22 08:55 Resp 16 05/07/22 07:27 BP 154/73 H 05/07/22 07:27 Pulse Ox 97 05/07/22 07:27 O2 Del Method 05/07/22 07:27 BMI result Body Mass Index 36.8 Const: General: cooperative HEENT: Head: Yes normal to inspection Face and sinus: Yes normal facial exam Mouth: Normal oral and palatal mucosa present Teeth and gingiva: dentition normal Eyes: General: appearance normal, both eyes and all related structures Pupils: Equal, round and reactive pupils present Chest: Other: breasts bilateral redness,but most lateral left where there appears to be dimpling Resp: Effort & Inspection: normal respiratory effort Cardio: Rate: regular rate Rhythm: regular rhythm GI: Palpation (GI): Soft to palpation and nontender : General: Yes no CVA tenderness Back/Spine/Pelvis: Back: no CVA tenderness Skin: General skin exam: no rashes or lesions noted Neuro: General: moves all extremities Cranial nerves: Yes Equal, round and reactive pupils present Extrem: General: Yes normal to inspection Psych: Appearance: grossly normal Results Labs CBC & Chem 7: 05/06/22 06:21 05/07/22 05:15 Labs: BMP 05/07/22 05:15 Creatinine 1.23 Microbiology Microbiology Results: Microbiology 05/05/22 14:28 Blood - Venous Blood Culture - Preliminary No growth after 24 hours. 05/05/22 14:17 Blood - Venous Blood Culture - Preliminary No growth after 24 hours. Assessment and Plan (1) Cellulitis of breast: Status: Acute There is concern over infection ,but bacterial infection generally should have responded to antibiotics. She may have deep fungal infection or atypical bacterial infection such as corynebacterium. Also she may have malignancy. (2) Dementia: Status: Acute Plan Check cryptococcal antigen evaluate one form of fungus. Continue Piperacillin/tazobactam for now,possible 3-5 days and then po Augmentin for a week and then po PCN V 250 bid suppressive. Also would probably be good to get skin biopsy left look for malignancy and infection. Time Spent With Patient Time: Total time managing care of this patient today ____ minutes.
[2022-05-07 15:22] VITALS: BP 128/60; PULSE 57; RESP 18; TEMP 37.1; O2SAT 98
[2022-05-07] MEDS: Enoxaparin Sodium 40 MG/0.4 ML SYRINGE SUBCUT (15:46)
[2022-05-07 19:08] VITALS: BP 128/66; PULSE 66; RESP 18; TEMP 36.9; O2SAT 97
[2022-05-07] MEDS: Atorvastatin Calcium 20 MG TABLET PO (19:28)
[2022-05-07] MEDS: Amitriptyline HCl 10 MG TABLET PO (19:29)
[2022-05-07] MEDS: Mirtazapine 15 MG TABLET PO (19:29)
[2022-05-07] MEDS: Acetaminophen 325 MG TABLET 650 MG PO (21:48)
[2022-05-07] MEDS: oxyCODONE HCl Immed Release 5 MG TABLET PO (21:48)
[2022-05-07 23:13] LABS: Vancomycin Random 13.2 mcg/mL (15-20)
[2022-05-08] MEDS: Piperacillin Sodium/Tazobactam 3.375 GM in 0.9 % Sodium Chloride 50 ML IV ×4 (03:49→21:26)
[2022-05-08 03:51] VITALS: BP 135/69; PULSE 61; RESP 18; TEMP 36.7; O2SAT 96
[2022-05-08] MEDS: Omeprazole 20 MG CAPSULE.DR PO (05:35)
[2022-05-08 06:35] LABS: Anion Gap 14 (12-20); Blood Urea Nitrogen 14 mg/dL (9-16); Calcium 8.6 mg/dL (8.4-10.2); Carbon Dioxide 23 mmol/L (22-29); Chloride 108 mmol/L (96-108); Creatinine Clr Calc Pharmacy 43.8; Estimated Glomerular Filt Rate 57; Glucose Random 109 mg/dL (60-115); Potassium 5.1 mmol/L (3.3-5.1); Sodium 140 mmol/L (135-145)
[2022-05-08 08:00] VITALS: BP 164/77; PULSE 64; RESP 17; TEMP 36.9; O2SAT 95
[2022-05-08] MEDS: oxyCODONE HCl Immed Release 5 MG TABLET PO ×2 (08:21→15:23)
[2022-05-08] MEDS: 0.9 % Sodium Chloride Flush 3 ML SYRINGE IVFLUSH ×3 (08:21→19:39)
[2022-05-08] MEDS: Escitalopram Oxalate 10 MG TABLET PO (08:21)
[2022-05-08] MEDS: Metoprolol Tartrate 50 MG TABLET PO ×2 (08:21→19:39)
[2022-05-08] MEDS: amLODIPine Besylate 10 MG TABLET PO (08:21)
[2022-05-08] MEDS: Gabapentin 400 MG CAPSULE 800 MG PO ×2 (08:21→19:39)
--- NOTE | 2022-05-08 10:24 | HO.PM.IMPN ---
Subjective Subjective Date of Service: 05/08/22 Interval History: Feeling better this morning complaining of less anterior chest wall pain, no fevers no chills no nausea no vomiting no abdominal pain tolerating diet, no diarrhea, daughter at bedside concern about recurrent episodes of cellulitis. Review of Systems Review of Systems: Yes all other systems are reviewed and are negative Physical Exam Vital Signs: Vital Signs: Last Vital Signs Temp 98.4 F 05/08/22 08:00 Pulse 64 05/08/22 08:00 Resp 17 05/08/22 08:00 BP 164/77 H 05/08/22 08:00 Pulse Ox 95 05/08/22 08:00 O2 Del Method 05/08/22 08:00 BMI result Body Mass Index 36.8 Const: Other: Gen:? Awake alert x3, in no acute distress Neck: supple Lungs: clear to auscultation bilaterally Heart: regular rate and rhythm, no murmurs Abd: soft, non-tender, non-distended Ext: no edema Skin: redness of L chest wall slowly improving, less tenderness to palpation.? Mild right-sided erythema Neuro: alert and oriented x3, no focal findings Psych: appropriate affect Objective Data Active Medications Acetaminophen (Acetaminophen 325 Mg Tablet) 650 mg PO Q6H PRN PRN Reason: Pain, Mild (Pain Scale 1-3) Last Admin: 05/07/22 21:48 Dose: 650 mg Documented By: CARMINE Albuterol Sulfate (Albuterol Sulfate (0.083%) 2.5 Mg/3 Ml Vial.Neb) 2.5 mg INHALE Q6H PRN PRN Reason: shortness of breath or wheezing Albuterol Sulfate (Albuterol Sulfate 90 Mcg 8 Gm Inhaler) 1 puff INHALE QID PRN PRN Reason: SHORTNESS OF BREATH Amitriptyline HCl (Amitriptyline Hcl 10 Mg Tablet) 10 mg PO BEDTIME [facility] Last Admin: 05/07/22 19:29 Dose: 10 mg Documented By: CARMINE Amlodipine Besylate (Amlodipine Besylate 10 Mg Tablet) 10 mg PO DAILY [facility]; Protocol Last Admin: 05/08/22 08:21 Dose: 10 mg Documented By: ALEJANDRA Atorvastatin Calcium (Atorvastatin Calcium 20 Mg Tablet) 20 mg PO BEDTIME [facility] Last Admin: 05/07/22 19:28 Dose: 20 mg Documented By: CARMINE Enoxaparin Sodium (Enoxaparin Sodium 40 Mg/0.4 Ml Syringe) 40 mg SUBCUT Q24H [facility] Last Admin: 05/07/22 15:46 Dose: 40 mg Documented By: JODY Escitalopram Oxalate (Escitalopram Oxalate 10 Mg Tablet) 10 mg PO DAILY [facility] Last Admin: 05/08/22 08:21 Dose: 10 mg Documented By: ALEJANDRA Gabapentin (Gabapentin 400 Mg Capsule) 800 mg PO BID [facility] Last Admin: 05/08/22 08:21 Dose: 800 mg Documented By: ALEJANDRA Hydromorphone HCl (Hydromorphone Hcl 0.5 Mg/0.5 Ml Syringe) 0.5 mg IVPUSH Q3H PRN; Protocol PRN Reason: Pain, Severe (Pain Scale 7-10) Last Admin: 05/07/22 17:10 Dose: 0.5 mg Documented By: JODY Piperacillin Sod/Tazobactam (Sod 3.375 gm/ Sodium Chloride) 50 mls @ 100 mls/hr IV Q6H [facility] Last Admin: 05/08/22 09:59 Dose: 100 mls/hr Documented By: ALEJANDRA Metoprolol Tartrate (Metoprolol Tartrate 50 Mg Tablet) 50 mg PO BID [facility]; Protocol Last Admin: 05/08/22 08:21 Dose: 50 mg Documented By: ALEJANDRA Mirtazapine (Mirtazapine 15 Mg Tablet) 15 mg PO BEDTIME [facility] Last Admin: 05/07/22 19:29 Dose: 15 mg Documented By: CARMINE Omeprazole (Omeprazole 20 Mg Capsule.Dr) 20 mg PO DAILY@0630 [facility] Last Admin: 05/08/22 05:35 Dose: 20 mg Documented By: CARMINE Ondansetron HCl (Ondansetron Hcl 4 Mg/2 Ml Vial) 4 mg IVPUSH QID PRN PRN Reason: Nausea Last Admin: 05/07/22 12:26 Dose: 4 mg Documented By: JODY Oxycodone HCl (Oxycodone Hcl Immed Release 5 Mg Tablet) 5 mg PO Q6H PRN PRN Reason: Pain, Moderate (Pain Scale 4-6 Last Admin: 05/08/22 08:21 Dose: 5 mg Documented By: ALEJANDRA Pharmacy Consult (Consult Rx Perform Med Rec) 1 each MISCELLANE ONCE PRN PRN Reason: Consult order Sodium Chloride (0.9 % Sodium Chloride Flush 3 Ml Syringe) 3 ml IVFLUSH QSHIFT [facility] Last Admin: 05/08/22 08:21 Dose: 3 ml Documented By: ALEJANDRA Labs CBC & Chem 7: 05/06/22 06:21 05/08/22 05:51 Labs: Laboratory Results - last 24 hr 05/07/22 05/08/22 13:22 05:51 Anion Gap 14 Estim Creat Clear Calc 43.8 Estimated GFR 57 Random Glucose 109 Calcium 8.6 D Random Vancomycin 13.2 L Microbiology Microbiology Results: Microbiology 05/05/22 14:28 Blood Culture - Preliminary Blood - Venous No growth after 48 hours. 05/05/22 14:17 Blood Culture - Preliminary Blood - Venous No growth after 48 hours. Assessment and Plan (1) Cellulitis of breast: Status: Acute (2) HTN (hypertension): Status: Acute Plan 72yo F with hx of LCIS s/p bilateral mastectomy, recent admission for bilateral chest wall cellulitis treated with IV vancomycin and pip-jia as well as I+D of a seroma.? Presenting with fever and admitted to the surgical service for recurrent chest wall cellulitis.? She is not meeting sepsis criteria at this time. # recurrent Left chest wall cellulitis Less redness and discomfort - on IV pip-jia + vanc day 3 , blood cultures x2 negative, patient afebrile normal WBC count Normal renal function Patient seen by infectious disease she recommend to check cryptococcal antigen, she recommend skin biopsy to look for underlying malignancy//infection Dr. Malik will reassess patient. # HTN - fluctuating blood pressures, continue metoprolol + amlodipine and follow BP # chronic kidney disease stage 3 stable # HLD - continue statin # neuropathy - continue gabapentin + amitriptylline # intermittent asthma - no acute exacerbation, prn albuterol # mood disorder - stable mood, citalopram + mirtazapine + trazodone # preDM - no insulin required, blood sugar stable # VTE ppx: LMWH Time Spent With Patient Time: Total time managing care of this patient today ____ minutes. Quality Stroke Does the patient have a stroke diagnosis?: No VTE Prior VTE?: No VTE Risk Level:: Surgical - moderate VTE Device Contraindication: N/A - Device Ordered VTE Drug Contraindication: N/A - Med Ordered
--- NOTE | 2022-05-08 12:48 | P.PNGS_ITS ---
Subjective Subjective Date of Service: 05/08/22 Interval history: Continued soreness in the left chest with redness. Patient not sleeping well due to pain. Not much of an appetite as well. Physical Exam Vital Signs: Vital Signs: Last Vital Signs Temp 98.4 F 05/08/22 08:00 Pulse 64 05/08/22 08:00 Resp 17 05/08/22 08:00 BP 164/77 H 05/08/22 08:00 Pulse Ox 95 05/08/22 08:00 O2 Del Method 05/08/22 08:00 BMI result Body Mass Index 36.8 Const: General: no acute distress Nutritional Appearance: well nourished Orientation/consciousness: patient oriented x3 Chest: Other: Left chest with some slight redness around the incision but no fluctuance. Tender to palpation, right chest normal healing incision. Resp: Effort & Inspection: normal respiratory effort Skin: Other: Warm, dry, no rash Neuro: General: patient oriented x3 Objective Data Active Medications Acetaminophen (Acetaminophen 325 Mg Tablet) 650 mg PO Q6H PRN PRN Reason: Pain, Mild (Pain Scale 1-3) Last Admin: 05/07/22 21:48 Dose: 650 mg Documented By: CARMINE Albuterol Sulfate (Albuterol Sulfate (0.083%) 2.5 Mg/3 Ml Vial.Neb) 2.5 mg INHALE Q6H PRN PRN Reason: shortness of breath or wheezing Albuterol Sulfate (Albuterol Sulfate 90 Mcg 8 Gm Inhaler) 1 puff INHALE QID PRN PRN Reason: SHORTNESS OF BREATH Amitriptyline HCl (Amitriptyline Hcl 10 Mg Tablet) 10 mg PO BEDTIME [facility] Last Admin: 05/07/22 19:29 Dose: 10 mg Documented By: CARMINE Amlodipine Besylate (Amlodipine Besylate 10 Mg Tablet) 10 mg PO DAILY [facility]; Prot ocol Last Admin: 05/08/22 08:21 Dose: 10 mg Documented By: DABA Atorvastatin Calcium (Atorvastatin Calcium 20 Mg Tablet) 20 mg PO BEDTIME [facility] Last Admin: 05/07/22 19:28 Dose: 20 mg Documented By: CARMINE Enoxaparin Sodium (Enoxaparin Sodium 40 Mg/0.4 Ml Syringe) 40 mg SUBCUT Q24H [facility] Last Admin: 05/07/22 15:46 Dose: 40 mg Documented By: JODY Escitalopram Oxalate (Escitalopram Oxalate 10 Mg Tablet) 10 mg PO DAILY [facility] Last Admin: 05/08/22 08:21 Dose: 10 mg Documented By: ALEJANDRA Gabapentin (Gabapentin 400 Mg Capsule) 800 mg PO BID [facility] Last Admin: 05/08/22 08:21 Dose: 800 mg Documented By: ALEJANDRA Hydromorphone HCl (Hydromorphone Hcl 0.5 Mg/0.5 Ml Syringe) 0.5 mg IVPUSH Q3H PRN; Protocol PRN Reason: Pain, Severe (Pain Scale 7-10) Last Admin: 05/07/22 17:10 Dose: 0.5 mg Documented By: JODY Piperacillin Sod/Tazobactam (Sod 3.375 gm/ Sodium Chloride) 50 mls @ 100 mls/hr IV Q6H [facility] Last Infusion: 05/08/22 10:41 Dose: 0 mls/hr Documented By: ALEJANDRA Metoprolol Tartrate (Metoprolol Tartrate 50 Mg Tablet) 50 mg PO BID [facility]; Protocol Last Admin: 05/08/22 08:21 Dose: 50 mg Documented By: ALEJANDRA Mirtazapine (Mirtazapine 15 Mg Tablet) 15 mg PO BEDTIME [facility] Last Admin: 05/07/22 19:29 Dose: 15 mg Documented By: CARMINE Omeprazole (Omeprazole 20 Mg Capsule.Dr) 20 mg PO DAILY@0630 [facility] Last Admin: 05/08/22 05:35 Dose: 20 mg Documented By: CARMINE Ondansetron HCl (Ondansetron Hcl 4 Mg/2 Ml Vial) 4 mg IVPUSH QID PRN PRN Reason: Nausea Last Admin: 05/07/22 12:26 Dose: 4 mg Documented By: JODY Oxycodone HCl (Oxycodone Hcl Immed Release 5 Mg Tablet) 5 mg PO Q6H PRN PRN Reason: Pain, Moderate (Pain Scale 4-6 Last Admin: 05/08/22 08:21 Dose: 5 mg Documented By: ALEJANDRA Pharmacy Consult (Consult Rx Perform Med Rec) 1 each MISCELLANE ONCE PRN PRN Reason: Consult order Sodium Chloride (0.9 % Sodium Chloride Flush 3 Ml Syringe) 3 ml IVFLUSH QSHIFT [facility] Last Admin: 05/08/22 08:21 Dose: 3 ml Documented By: ALEJANDRA Labs CBC & Chem 7: 05/06/22 06:21 05/08/22 05:51 Labs: Laboratory Results - last 24 hr 05/07/22 05/08/22 13:22 05:51 Anion Gap 14 Estim Creat Clear Calc 43.8 Estimated GFR 57 Random Glucose 109 Calcium 8.6 D Random Vancomycin 13.2 L Microbiology Microbiology Results: Microbiology 05/05/22 14:28 Blood Culture - Preliminary Blood - Venous No growth after 48 hours. 05/05/22 14:17 Blood Culture - Preliminary Blood - Venous No growth after 48 hours. Procedures Date of Service Date of Service: 05/08/22 Progress Note: A&P Assessment and plan (1) Cellulitis of breast: Status: Acute Plan Persistent cellulitis of the left chest following mastectomy. Appreciate Infectious Disease input, possible fungal infection. Agree with the skin biopsy for fungal culture and pathology. Will schedule for tomorrow in OR. I reviewed the procedure, risks, and alternatives with the patient and her family today and she consents for the left chest skin biopsy. Time Spent With Patient Time: Total time managing care of this patient today ____ minutes. Quality Stroke Does the patient have a stroke diagnosis?: No VTE Prior VTE?: No VTE Risk Level:: Surgical - moderate VTE Device Contraindication: N/A - Device Ordered VTE Drug Contraindication: N/A - Med Ordered
[2022-05-08 15:04] VITALS: BP 145/70; PULSE 59; RESP 18; TEMP 37.2; O2SAT 98
[2022-05-08] MEDS: Enoxaparin Sodium 40 MG/0.4 ML SYRINGE SUBCUT (15:23)
[2022-05-08 19:13] VITALS: BP 135/67; PULSE 68; RESP 18; TEMP 37.4; O2SAT 97
[2022-05-08] MEDS: Atorvastatin Calcium 20 MG TABLET PO (19:39)
[2022-05-08] MEDS: Amitriptyline HCl 10 MG TABLET PO (19:39)
[2022-05-08] MEDS: HYDROmorphone HCl 0.5 MG/0.5 ML SYRINGE IVPUSH (19:39)
[2022-05-08] MEDS: Mirtazapine 15 MG TABLET PO (19:39)
[2022-05-09] VITALS (13 sets, daily range): BP systolic 123–160; BP diastolic 60–86; PULSE 56–67; RESP 14–18; TEMP 36.4–37; O2SAT 92–99
[2022-05-09] MEDS: Piperacillin Sodium/Tazobactam 3.375 GM in 0.9 % Sodium Chloride 50 ML IV ×4 (03:36→21:29)
[2022-05-09] MEDS: Omeprazole 20 MG CAPSULE.DR PO (06:10)
[2022-05-09] MEDS: oxyCODONE HCl Immed Release 5 MG TABLET PO ×2 (06:19→13:44)
--- NOTE | 2022-05-09 08:12 | P.PNGS_ITS ---
Subjective Subjective Date of Service: 05/09/22 Patient reports: no new complaints Physical Exam Vital Signs: Vital Signs: Last Vital Signs Temp 98.3 F 05/09/22 08:00 Pulse 67 05/09/22 08:00 Resp 17 05/09/22 08:00 BP 150/73 H 05/09/22 08:00 Pulse Ox 99 05/09/22 08:00 O2 Del Method 05/09/22 08:00 BMI result Body Mass Index 36.8 Const: General: no acute distress Nutritional Appearance: well nourished Orientation/consciousness: patient oriented x3 Chest: Other: Left chest with some slight redness around the incision but no fluctuance. Tender to palpation, right chest normal healing incision. Resp: Effort & Inspection: normal respiratory effort Skin: Other: Warm, dry, no rash Neuro: General: patient oriented x3 Objective Data Active Medications Acetaminophen (Acetaminophen 325 Mg Tablet) 650 mg PO Q6H PRN PRN Reason: Pain, Mild (Pain Scale 1-3) Last Admin: 05/07/22 21:48 Dose: 650 mg Documented By: CARMINE Albuterol Sulfate (Albuterol Sulfate (0.083%) 2.5 Mg/3 Ml Vial.Neb) 2.5 mg INHALE Q6H PRN PRN Reason: shortness of breath or wheezing Albuterol Sulfate (Albuterol Sulfate 90 Mcg 8 Gm Inhaler) 1 puff INHALE QID PRN PRN Reason: SHORTNESS OF BREATH Amitriptyline HCl (Amitriptyline Hcl 10 Mg Tablet) 10 mg PO BEDTIME [facility] Last Admin: 05/08/22 19:39 Dose: 10 mg Documented By: CONNOR Amlodipine Besylate (Amlodipine Besylate 10 Mg Tablet) 10 mg PO DAILY [facility]; Protocol Last Admin: 05/08/22 08:21 Dose: 10 mg Documented By: ALEJANDRA Atorvastatin Calcium (Atorvastatin Calcium 20 Mg Tablet) 20 mg PO BEDTIME [facility] Last Admin: 05/08/22 19:39 Dose: 20 mg Documented By: CONNOR Enoxaparin Sodium (Enoxaparin Sodium 40 Mg/0.4 Ml Syringe) 40 mg SUBCUT Q24H [facility] Last Admin: 05/08/22 15:23 Dose: 40 mg Documented By: ALEJANDRA Escitalopram Oxalate (Escitalopram Oxalate 10 Mg Tablet) 10 mg PO DAILY [facility] Last Admin: 05/08/22 08:21 Dose: 10 mg Documented By: ALEJANDRA Gabapentin (Gabapentin 400 Mg Capsule) 800 mg PO BID [facility] Last Admin: 05/08/22 19:39 Dose: 800 mg Documented By: CONNOR Hydromorphone HCl (Hydromorphone Hcl 0.5 Mg/0.5 Ml Syringe) 0.5 mg IVPUSH Q3H PRN; Protocol PRN Reason: Pain, Severe (Pain Scale 7-10) Last Admin: 05/08/22 19:39 Dose: 0.5 mg Documented By: CONNOR Piperacillin Sod/Tazobactam (Sod 3.375 gm/ Sodium Chloride) 50 mls @ 100 mls/hr IV Q6H [facility] Last Infusion: 05/09/22 04:10 Dose: 0 mls/hr Documented By: CONNOR Metoprolol Tartrate (Metoprolol Tartrate 50 Mg Tablet) 50 mg PO BID [facility]; Protocol Last Admin: 05/08/22 19:39 Dose: 50 mg Documented By: CONNOR Mirtazapine (Mirtazapine 15 Mg Tablet) 15 mg PO BEDTIME [facility] Last Admin: 05/08/22 19:39 Dose: 15 mg Documented By: CONNOR Omeprazole (Omeprazole 20 Mg Capsule.Dr) 20 mg PO DAILY@0630 [facility] Last Admin: 05/09/22 06:10 Dose: 20 mg Documented By: CONNOR Ondansetron HCl (Ondansetron Hcl 4 Mg/2 Ml Vial) 4 mg IVPUSH QID PRN PRN Reason: Nausea Last Admin: 05/07/22 12:26 Dose: 4 mg Documented By: JODY Oxycodone HCl (Oxycodone Hcl Immed Release 5 Mg Tablet) 5 mg PO Q6H PRN PRN Reason: Pain, Moderate (Pain Scale 4-6 Last Admin: 05/09/22 06:19 Dose: 5 mg Documented By: CONNOR Pharmacy Consult (Consult Rx Perform Med Rec) 1 each MISCELLANE ONCE PRN PRN Reason: Consult order Sodium Chloride (0.9 % Sodium Chloride Flush 3 Ml Syringe) 3 ml IVFLUSH QSHIFT [facility] Last Admin: 05/08/22 19:39 Dose: 3 ml Documented By: CONNOR Labs CBC & Chem 7: 05/06/22 06:21 05/08/22 05:51 Procedures Date of Service Date of Service: 05/09/22 Progress Note: A&P Assessment and plan (1) Cellulitis of breast: Status: Acute Plan Persistent cellulitis of the left chest following mastectomy. Discussed management in detail with Dr. Plunkett from Infectious Disease and arrangements made for skin biopsy for pathology and culture including acid-fast, fungal, and bacterial cultures. After discussion of the procedure, risks, and alternatives, the patient and her family consents to the surgery. Time Spent With Patient Time: Total time managing care of this patient today ____ minutes. Quality Stroke Does the patient have a stroke diagnosis?: No VTE Prior VTE?: No VTE Risk Level:: Surgical - moderate VTE Device Contraindication: N/A - Device Ordered VTE Drug Contraindication: N/A - Med Ordered
[2022-05-09] MEDS: amLODIPine Besylate 10 MG TABLET PO (08:13)
[2022-05-09] MEDS: Escitalopram Oxalate 10 MG TABLET PO (08:13)
[2022-05-09] MEDS: Gabapentin 400 MG CAPSULE 800 MG PO ×2 (08:13→19:38)
[2022-05-09] MEDS: HYDROmorphone HCl 0.5 MG/0.5 ML SYRINGE IVPUSH ×4 (08:13→19:43)
[2022-05-09] MEDS: Metoprolol Tartrate 50 MG TABLET PO ×2 (08:14→19:38)
[2022-05-09] MEDS: 0.9 % Sodium Chloride Flush 3 ML SYRINGE IVFLUSH ×3 (08:17→19:44)
--- NOTE | 2022-05-09 11:10 | HO.ANESPROP2 ---
HPI - Anesthesia Eval Consult details Narrative: for skin biopsy s/post mastectomy double PMFSH Active Problems Active Problems: All Active Problems (Updated 05/09/22 @ 10:51 by Juanis Hills, RN) HTN (hypertension) (Acute) Failed back syndrome (Acute) Lumbar disc disease with radiculopathy (Acute) Screening for diabetes mellitus (DM) (Acute) Pre-procedural laboratory examination (Acute) DMII (diabetes mellitus, type 2) (Acute) Insomnia (Acute) Annual physical exam (Acute) Opiate dependence (Acute) MDD (major depressive disorder), recurrent episode, moderate (Acute) Neuropathic pain (Acute) GERD (gastroesophageal reflux disease) (Acute) Diarrhea (Acute) Cervical myelopathy with cervical radiculopathy (Acute) Pre-procedure lab exam (Acute) Chest pain (Acute) Hypertension (Acute) Hyperkalemia (Acute) QUIN (acute kidney injury) (Acute) Radiculopathy (Acute) Musculoskeletal pain (Acute) Prediabetes (Acute) Hospital discharge follow-up (Acute) Cervical stenosis of spinal canal (Acute) Tinea unguium (Acute) Abnormal ultrasound of breast (Acute) Post op infection (Acute) Surgical wound infection (Acute) Toxic metabolic encephalopathy (Acute) Head trauma (Acute) Fall (Acute) Dementia (Acute) Asthma (Acute) Memory deficit (Acute) Cellulitis of breast (Acute) Traumatic complete tear of right rotator cuff (Acute) Past Medical History Medical History (Updated 05/09/22 @ 10:51 by Juanis Hills, RN) Arthritis Asthma Depression Diabetes 1.5, managed as type 2 GERD (gastroesophageal reflux disease) HTN (hypertension) IBS (irritable bowel syndrome) 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 Mother Heart disease Hypertension Colon cancer Maternal Grandmother Esophageal cancer Daughter Breast cancer Brother Colon cancer Sister Breast cancer Sister Breast cancer, Onset Age: 60 Family history of problems with anesthesia: No Surgical History Surgical History History of bilateral mastectomy (02/19/22) History of colonoscopy History of esophagogastroduodenoscopy (EGD) History of lumbar fusion History of lumpectomy of both breasts History of surgery Hx of appendectomy Hx of blepharoplasty Hx of cholecystectomy S/P bilateral mastectomy S/P [id number] (total abdominal hysterectomy and bilateral salpingo-oophorectomy) History of Problems with Anesthesia: No Social History Social History Household Members: None Housing: Apartment Are you a primary adult daycare coordinator to a significant other at home: No Do you presently have visiting nurse or other home services: Yes Unable to assess alcohol history related to: Unknown Alcohol intake: never Patient Tobacco Use Status: Never used Tobacco e-Cigarette/Vaping Use: Never Used Second Hand Smoke Exposure: No Advance Directives Date on File: 09/26/21 service: No Current occupational status: disabled 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) Hearing needs: No Vision needs: Yes Meds Allergies Allergy/AdvReac Type Severity Reaction Status Date / Time No Known Allergies Allergy Verified 05/01/22 11:30 [No Known Allergies*] Active Medications: Current Medications Acetaminophen (Acetaminophen 325 Mg Tablet) 650 mg PO Q6H PRN PRN Reason: Pain, Mild (Pain Scale 1-3) Last Admin: 05/07/22 21:48 Dose: 650 mg Albuterol Sulfate (Albuterol Sulfate (0.083%) 2.5 Mg/3 Ml Vial.Neb) 2.5 mg INHALE Q6H PRN PRN Reason: shortness of breath or wheezing Albuterol Sulfate (Albuterol Sulfate 90 Mcg 8 Gm Inhaler) 1 puff INHALE QID PRN PRN Reason: SHORTNESS OF BREATH Amitriptyline HCl (Amitriptyline Hcl 10 Mg Tablet) 10 mg PO BEDTIME [facility] Last Admin: 05/08/22 19:39 Dose: 10 mg Amlodipine Besylate (Amlodipine Besylate 10 Mg Tablet) 10 mg PO DAILY [facility]; Protocol Last Admin: 05/09/22 08:13 Dose: 10 mg Atorvastatin Calcium (Atorvastatin Calcium 20 Mg Tablet) 20 mg PO BEDTIME [facility] Last Admin: 05/08/22 19:39 Dose: 20 mg Enoxaparin Sodium (Enoxaparin Sodium 40 Mg/0.4 Ml Syringe) 40 mg SUBCUT Q24H [facility] Last Admin: 05/08/22 15:23 Dose: 40 mg Escitalopram Oxalate (Escitalopram Oxalate 10 Mg Tablet) 10 mg PO DAILY [facility] Last Admin: 05/09/22 08:13 Dose: 10 mg Gabapentin (Gabapentin 400 Mg Capsule) 800 mg PO BID [facility] Last Admin: 05/09/22 08:13 Dose: 800 mg Hydromorphone HCl (Hydromorphone Hcl 0.5 Mg/0.5 Ml Syringe) 0.5 mg IVPUSH Q3H PRN; Protocol PRN Reason: Pain, Severe (Pain Scale 7-10) Last Admin: 05/09/22 08:13 Dose: 0.5 mg Piperacillin Sod/Tazobactam (Sod 3.375 gm/ Sodium Chloride) 50 mls @ 100 mls/hr IV Q6H [facility] Last Infusion: 05/09/22 10:00 Dose: Infused Metoprolol Tartrate (Metoprolol Tartrate 50 Mg Tablet) 50 mg PO BID [facility]; Protocol Last Admin: 05/09/22 08:14 Dose: 50 mg Mirtazapine (Mirtazapine 15 Mg Tablet) 15 mg PO BEDTIME [facility] Last Admin: 05/08/22 19:39 Dose: 15 mg Omeprazole (Omeprazole 20 Mg Capsule.Dr) 20 mg PO DAILY@0630 [facility] Last Admin: 05/09/22 06:10 Dose: 20 mg Ondansetron HCl (Ondansetron Hcl 4 Mg/2 Ml Vial) 4 mg IVPUSH QID PRN PRN Reason: Nausea Last Admin: 05/07/22 12:26 Dose: 4 mg Oxycodone HCl (Oxycodone Hcl Immed Release 5 Mg Tablet) 5 mg PO Q6H PRN PRN Reason: Pain, Moderate (Pain Scale 4-6 Last Admin: 05/09/22 06:19 Dose: 5 mg Pharmacy Consult (Consult Rx Perform Med Rec) 1 each MISCELLANE ONCE PRN PRN Reason: Consult order Sodium Chloride (0.9 % Sodium Chloride Flush 3 Ml Syringe) 3 ml IVFLUSH QSHIFT [facility] Last Admin: 05/09/22 08:17 Dose: 3 ml Home Medications Medication Instructions Recorded Confirmed Last Taken Type atorvastatin 20 mg tablet 20 mg PO BEDTIME 04/13/22 05/05/22 05/04/22 History trazodone 100 mg tablet 200 mg PO BEDTIME 04/13/22 05/05/2205/04/22 History citalopram 20 mg tablet 1 tab PO DAILY 05/05/22 05/05/22 05/05/22 History Exam Exam Date and Time: May 09, 2022 1110 Height,Weight and Vital Signs: Height 4 ft 9 in Weight 77.111 kg Last Vital Signs Temp 98.0 F 05/09/22 10:13 Pulse 56 05/09/22 10:13 Resp 16 05/09/22 10:13 BP 145/75 H 05/09/22 10:13 Pulse Ox 95 05/09/22 10:13 O2 Del Method 05/09/22 10:13 Pertinent Lab Results Pertinent Lab Results: Laboratory Tests 05/05/22 05/05/22 05/05/22 14:17 14:17 14:17 WBC 7.7 RBC 3.46 L Hgb 10.2 L Hct 31.9 L MCV 92.2 MCH 29.5 MCHC 32.0 RDW 14.5 Plt Count 417 H MPV 9.8 Immature Gran % (Auto) 0.1 Neut % (Auto) 58.3 Lymph % (Auto) 30.5 [place] % (Auto) 7.5 Eos % (Auto) 3.1 Baso % (Auto) 0.5 Lymph # (Auto) 2.3 [place] # (Auto) 0.6 Eos # (Auto) 0.2 Baso # (Auto) 0.0 Abs Immat Gran (auto) 0.01 Absolute Neuts (auto) 4.5 Absolute Nucleated RBC 0.000 Nucleated RBC % (auto) 0.0 ESR 50 H Sodium 139 Potassium 4.5 Chloride 108 Carbon Dioxide 22 Anion Gap 14 BUN 24 H Creatinine 1.01 Estim Creat Clear Calc 41.7 Estimated GFR 54 POC Glucose Random Glucose 95 Calcium 8.6 Total Bilirubin < 0.2 AST 21 ALT 19 Alkaline Phosphatase 81 C-Reactive Protein 0.61 H Total Protein 6.4 L Albumin 3.6 Random Vancomycin COVID-19 ([facility]) COVID-19 Clin Com 05/05/22 05/05/22 05/05/22 15:22 17:16 20:56 WBC RBC Hgb Hct MCV MCH MCHC RDW Plt Count MPV Immature Gran % (Auto) Neut % (Auto) Lymph % (Auto) [place] % (Auto) Eos % (Auto) Baso % (Auto) Lymph # (Auto) [place] # (Auto) Eos # (Auto) Baso # (Auto) Abs Immat Gran (auto) Absolute Neuts (auto) Absolute Nucleated RBC Nucleated RBC % (auto) ESR Sodium Potassium Chloride Carbon Dioxide Anion Gap BUN Creatinine Estim Creat Clear Calc Estimated GFR POC Glucose 100 108 Random Glucose Calcium Total Bilirubin AST ALT Alkaline Phosphatase C-Reactive Protein Total Protein Albumin Random Vancomycin COVID-19 ([facility]) Negative COVID-19 Clin Com See Note 05/06/22 05/06/22 05/06/22 06:21 06:21 06:59 WBC 5.9 RBC 3.64 L Hgb 10.6 L Hct 33.2 L MCV 91.2 MCH 29.1 MCHC 31.9 RDW 14.6 Plt Count 378 MPV 9.7 Immature Gran % (Auto) 0.3 Neut % (Auto) 63.1 Lymph % (Auto) 21.5 [place] % (Auto) 8.6 Eos % (Auto) 5.8 H Baso % (Auto) 0.7 Lymph # (Auto) 1.3 [place] # (Auto) 0.5 Eos # (Auto) 0.3 Baso # (Auto) 0.0 Abs Immat Gran (auto) 0.02 Absolute Neuts (auto) 3.7 Absolute Nucleated RBC 0.000 Nucleated RBC % (auto) 0.0 ESR Sodium 141 Potassium 4.4 Chloride 109 H Carbon Dioxide 22 Anion Gap 14 BUN 19 H Creatinine 1.00 Estim Creat Clear Calc 42.1 Estimated GFR 54 POC Glucose 94 Random Glucose 102 Calcium 9.2 D Total Bilirubin AST ALT Alkaline Phosphatase C-Reactive Protein Total Protein Albumin Random Vancomycin COVID-19 ([facility]) COVID-19 Clin Com 05/06/22 05/07/22 05/07/22 08:49 05:15 13:22 WBC RBC Hgb Hct MCV MCH MCHC RDW Plt Count MPV Immature Gran % (Auto) Neut % (Auto) Lymph % (Auto) [place] % (Auto) Eos % (Auto) Baso % (Auto) Lymph # (Auto) [place] # (Auto) Eos # (Auto) Baso # (Auto) Abs Immat Gran (auto) Absolute Neuts (auto) Absolute Nucleated RBC Nucleated RBC % (auto) ESR Sodium Potassium Chloride Carbon Dioxide Anion Gap BUN Creatinine 1.23 Estim Creat Clear Calc 34.2 Estimated GFR 43 POC Glucose 114 Random Glucose Calcium Total Bilirubin AST ALT Alkaline Phosphatase C-Reactive Protein Total Protein Albumin Random Vancomycin 13.2 L COVID-19 ([facility]) COVID-19 Clin Com 05/08/22 05:51 WBC RBC Hgb Hct MCV MCH MCHC RDW Plt Count MPV Immature Gran % (Auto) Neut % (Auto) Lymph % (Auto) [place] % (Auto) Eos % (Auto) Baso % (Auto) Lymph # (Auto) [place] # (Auto) Eos # (Auto) Baso # (Auto) Abs Immat Gran (auto) Absolute Neuts (auto) Absolute Nucleated RBC Nucleated RBC % (auto) ESR Sodium 140 Potassium 5.1 Chloride 108 Carbon Dioxide 23 Anion Gap 14 BUN 14 Creatinine 0.96 Estim Creat Clear Calc 43.8 Estimated GFR 57 POC Glucose Random Glucose 109 Calcium 8.6 D Total Bilirubin AST ALT Alkaline Phosphatase C-Reactive Protein Total Protein Albumin Random Vancomycin COVID-19 ([facility]) COVID-19 Clin Com Airway Mallampati Class: II TM Dist: >3cm Neck ROM: Full Heart: rr Lungs: cta Assessment and Plan Assessment Anesthesia Assessment: Anesthesia Plan Discussed and Chart Reviewed Final Anesthetic Review Family History of Problems with Anesthesia: No History of Problems with Anesthesia: No Anesthetic Plan Anesthetic Plan: MAC: Disposition: Inp. Admit - Standard Bed
--- NOTE | 2022-05-09 11:29 | HO.PM.IMPN ---
Subjective Subjective Date of Service: 05/09/22 Interval History: History obtained via certified mortician, daughter at bedside, patient feels better this morning anterior chest wall pain is better with use of narcotics, no fevers no chills, tolerating diet with no nausea vomiting or abdominal pain. Review of Systems Review of Systems: Yes all other systems are reviewed and are negative Physical Exam Vital Signs: Vital Signs: Last Vital Signs Temp 98.0 F 05/09/22 10:13 Pulse 56 05/09/22 10:13 Resp 16 05/09/22 10:13 BP 145/75 H 05/09/22 10:13 Pulse Ox 95 05/09/22 10:13 O2 Del Method 05/09/22 10:13 BMI result Body Mass Index 36.8 Const: Other: Gen:? Awake alert x3, in no acute distress Neck: supple Lungs: clear to auscultation bilaterally Heart: regular rate and rhythm, no murmurs Abd: soft, non-tender, non-distended Ext: no edema Skin: redness of L chest wall improving, less tenderness to palpation Neuro: alert and oriented x3, no focal findings Psych: appropriate affect Objective Data Active Medications Acetaminophen (Acetaminophen 325 Mg Tablet) 650 mg PO Q6H PRN PRN Reason: Pain, Mild (Pain Scale 1-3) Last Admin: 05/07/22 21:48 Dose: 650 mg Documented By: CARMINE Albuterol Sulfate (Albuterol Sulfate (0.083%) 2.5 Mg/3 Ml Vial.Neb) 2.5 mg INHALE Q6H PRN PRN Reason: shortness of breath or wheezing Albuterol Sulfate (Albuterol Sulfate 90 Mcg 8 Gm Inhaler) 1 puff INHALE QID PRN PRN Reason: SHORTNESS OF BREATH Amitriptyline HCl (Amitriptyline Hcl 10 Mg Tablet) 10 mg PO BEDTIME [facility] Last Admin: 05/08/22 19:39 Dose: 10 mg Documented By: CONNOR Amlodipine Besylate (Amlodipine Besylate 10 Mg Tablet) 10 mg PO DAILY [facility]; Protocol Last Admin: 05/09/22 08:13 Dose: 10 mg Documented By: ALEJANDRA Atorvastatin Calcium (Atorvastatin Calcium 20 Mg Tablet) 20 mg PO BEDTIME [facility] Last Admin: 05/08/22 19:39 Dose: 20 mg Documented By: CONNOR Enoxaparin Sodium (Enoxaparin Sodium 40 Mg/0.4 Ml Syringe) 40 mg SUBCUT Q24H [facility] Last Admin: 05/08/22 15:23 Dose: 40 mg Documented By: ALEJANDRA Escitalopram Oxalate (Escitalopram Oxalate 10 Mg Tablet) 10 mg PO DAILY [facility] Last Admin: 05/09/22 08:13 Dose: 10 mg Documented By: ALEJANDRA Gabapentin (Gabapentin 400 Mg Capsule) 800 mg PO BID [facility] Last Admin: 05/09/22 08:13 Dose: 800 mg Documented By: ALEJANDRA Hydromorphone HCl (Hydromorphone Hcl 0.5 Mg/0.5 Ml Syringe) 0.5 mg IVPUSH Q3H [facility]; Protocol PRN Reason: Pain, Severe (Pain Scale 7-10) Last Admin: 05/09/22 08:13 Dose: 0.5 mg Documented By: ALEJANDRA Piperacillin Sod/Tazobactam (Sod 3.375 gm/ Sodium Chloride) 50 mls @ 100 mls/hr IV Q6H [facility] Last Infusion: 05/09/22 10:00 Dose: 0 mls/hr Documented By: ALEJANDRA Metoprolol Tartrate (Metoprolol Tartrate 50 Mg Tablet) 50 mg PO BID [facility]; Protocol Last Admin: 05/09/22 08:14 Dose: 50 mg Documented By: ALEJANDRA Mirtazapine (Mirtazapine 15 Mg Tablet) 15 mg PO BEDTIME [facility] Last Admin: 05/08/22 19:39 Dose: 15 mg Documented By: CONNOR Omeprazole (Omeprazole 20 Mg Capsule.Dr) 20 mg PO DAILY@0630 [facility] Last Admin: 05/09/22 06:10 Dose: 20 mg Documented By: CONNOR Ondansetron HCl (Ondansetron Hcl 4 Mg/2 Ml Vial) 4 mg IVPUSH QID PRN PRN Reason: Nausea Last Admin: 05/07/22 12:26 Dose: 4 mg Documented By: JODY Oxycodone HCl (Oxycodone Hcl Immed Release 5 Mg Tablet) 5 mg PO Q6H PRN PRN Reason: Pain, Moderate (Pain Scale 4-6 Last Admin: 05/09/22 06:19 Dose: 5 mg Documented By: CONNOR Pharmacy Consult (Consult Rx Perform Med Rec) 1 each MISCELLANE ONCE PRN PRN Reason: Consult order Sodium Chloride (0.9 % Sodium Chloride Flush 3 Ml Syringe) 3 ml IVFLUSH QSHIFT [facility] Last Admin: 05/09/22 08:17 Dose: 3 ml Documented By: ALEJANDRA Labs CBC & Chem 7: 05/06/22 06:21 05/08/22 05:51 Assessment and Plan (1) Cellulitis of breast: Status: Acute (2) HTN (hypertension): Status: Acute Plan 72yo F with hx of LCIS s/p bilateral mastectomy, recent admission for bilateral chest wall cellulitis treated with IV vancomycin and pip-jia as well as I+D of a seroma.? Presenting with fever and admitted to the surgical service for recurrent chest wall cellulitis.? She is not meeting sepsis criteria at this time. # recurrent Left chest wall cellulitis Less redness and discomfort - on IV pip-jia + vanc day 4 , blood cultures x2 negative, patient afebrile normal WBC count, will transition to by mouth antibiotic Augmentin for a week and then by mouth penicillin v 250 b.i.d. for suppressive treatment due to recurrent infection Normal renal function Patient will undergo skin biopsy with Dr. Malik , follow biopsy report, including g stain cultures and acid-fast bacilli and cryptococcal antigen # HTN - continue metoprolol + amlodipine and follow BP # chronic kidney disease stage 3 stable # HLD - continue statin # neuropathy - continue gabapentin + amitriptylline # intermittent asthma - no acute exacerbation, prn albuterol # mood disorder - stable mood, citalopram + mirtazapine + trazodone # preDM - no insulin required, blood sugar stable # VTE ppx: LMWH Time Spent With Patient Time: Total time managing care of this patient today ____ minutes. Quality Stroke Does the patient have a stroke diagnosis?: No VTE Prior VTE?: No VTE Risk Level:: Surgical - moderate VTE Device Contraindication: N/A - Device Ordered VTE Drug Contraindication: N/A - Med Ordered
--- NOTE | 2022-05-09 11:47 | P.OP_ITS ---
Operative Note Operative Note Date of Service: 05/09/22 Narrative: Preoperative diagnosis: recurrent cellulitis left chest wall Postoperative diagnosis: same Procedure: skin biopsy culture and pathology Surgeon: Renard Malik MD Rd Project Manager: Halley Haque PA-C Anesthesia: mac Indications for procedure: 72-year-old female patient status post bilateral mastectomy for recurrent breast cancer now presenting with recurrent cellulitis of the breast. Patient has been on multiple doses of antibiotics with temporary improvement. Infectious disease consultation recommended skin biopsy for pathology to evaluate for recurrent tumor verses unusual skin infection including fungal, AFB, cryptococcus. Operative findings: Thickened skin with a light pink skin change. Granulation tissue noted in the wound base but no seroma or abscess. Specimen: Skin and subcutaneous tissue left chest wall for pathology and culture, swab wound culture Estimated blood loss: 2 mL Complications: none Procedure details: patient was brought to the OR placed in a supine position. After administering light sedation the patient's left chest was prepped with ChloraPrep and draped in a sterile fashion. A surgical time-out was called the consent confirmed. lidocaine 2% with epinephrine was then infiltrated in the left chest along the mid incision in the region of the erythema. Elliptical incision to include the incision was created with a scalpel. The specimen measured approximately 2 x 1 cm was upsized elliptical fashion. The specimen was split in half with half going for surgical pathology and the other half going for culture. Swab of the subcutaneous tissue was obtained for culture. After assuring adequate hemostasis the deep dermis was reapproximated using interrupted 3-0 Polysorb sutures. Skin was then closed using a running subcuticular 4-0 Polysorb suture. Steri-Strips, 2 x 2 gauze and Tegaderm were then applied. The patient tolerated the procedure well. She was transferred to PACU in stable condition.
[2022-05-09] MEDS: ondansetron HCL 4 MG/2 ML VIAL IVPUSH (12:26)
[2022-05-09] MEDS: Acetaminophen 325 MG TABLET 650 MG PO (13:44)
[2022-05-09] MEDS: Enoxaparin Sodium 40 MG/0.4 ML SYRINGE SUBCUT (15:36)
[2022-05-09] MEDS: Atorvastatin Calcium 20 MG TABLET PO (19:39)
[2022-05-09] MEDS: Amitriptyline HCl 10 MG TABLET PO (19:39)
[2022-05-09] MEDS: Mirtazapine 15 MG TABLET PO (19:39)
[2022-05-10] MEDS: Piperacillin Sodium/Tazobactam 3.375 GM in 0.9 % Sodium Chloride 50 ML IV ×2 (03:14→09:33)
[2022-05-10 03:15] VITALS: BP 130/62; PULSE 62; RESP 18; TEMP 36.9; O2SAT 97
[2022-05-10] MEDS: oxyCODONE HCl Immed Release 5 MG TABLET PO ×3 (06:07→21:24)
[2022-05-10] MEDS: Omeprazole 20 MG CAPSULE.DR PO (06:07)
[2022-05-10 07:48] VITALS: BP 147/72; PULSE 63; RESP 16; TEMP 37.2; O2SAT 97
[2022-05-10] MEDS: amLODIPine Besylate 10 MG TABLET PO (07:55)
[2022-05-10] MEDS: Metoprolol Tartrate 50 MG TABLET PO ×2 (07:55→21:24)
[2022-05-10] MEDS: Escitalopram Oxalate 10 MG TABLET PO (07:55)
[2022-05-10] MEDS: Gabapentin 400 MG CAPSULE 800 MG PO ×2 (07:55→21:24)
[2022-05-10] MEDS: HYDROmorphone HCl 0.5 MG/0.5 ML SYRINGE IVPUSH (09:34)
--- NOTE | 2022-05-10 09:40 | P.PNGS_ITS ---
Subjective Subjective Date of Service: 05/10/22 Interval history: Sitting up eating breakfast in bed, comfortable. States pain is minimal right now but is requiring narcotics frequently for pain. Physical Exam Vital Signs: Vital Signs: Last Vital Signs Temp 98.9 F 05/10/22 07:48 Pulse 63 05/10/22 07:48 Resp 16 05/10/22 07:48 BP 147/72 H 05/10/22 07:48 Pulse Ox 97 05/10/22 07:48 O2 Del Method 05/10/22 07:48 O2 Flow Rate 2 05/09/22 12:33 BMI result Body Mass Index 36.8 Const: General: comfortable, no acute distress and alert Orientation/consciousness: patient oriented x3 Chest: Other: left chest biopsy site mildly tender, minimal erythema, dressing intact Resp: Effort & Inspection: normal respiratory effort Skin: General skin exam: no rashes or lesions noted Neuro: General: patient oriented x3 Extrem: General: Yes no clubbing, cyanosis or edema Objective Data Active Medications Acetaminophen (Acetaminophen 325 Mg Tablet) 650 mg PO Q6H PRN PRN Reason: Pain, Mild (Pain Scale 1-3) Last Admin: 05/09/22 13:44 Dose: 650 mg Documented By: ALEJANDRA Albuterol Sulfate (Albuterol Sulfate (0.083%) 2.5 Mg/3 Ml Vial.Neb) 2.5 mg INHALE Q6H PRN PRN Reason: shortness of breath or wheezing Albuterol Sulfate (Albuterol Sulfate 90 Mcg 8 Gm Inhaler) 1 puff INHALE QID PRN PRN Reason: SHORTNESS OF BREATH Amitriptyline HCl (Amitriptyline Hcl 10 Mg Tablet) 10 mg PO BEDTIME [facility] Last Admin: 05/09/22 19:39 Dose: 10 mg Documented By: CONNOR Amlodipine Besylate (Amlodipine Besylate 10 Mg Tablet) 10 mg PO DAILY [facility]; Protocol Last Admin: 05/10/22 07:55 Dose: 10 mg Documented By: ALEJANDRA Atorvastatin Calcium (Atorvastatin Calcium 20 Mg Tablet) 20 mg PO BEDTIME [facility] Last Admin: 05/09/22 19:39 Dose: 20 mg Documented By: CONNOR Enoxaparin Sodium (Enoxaparin Sodium 40 Mg/0.4 Ml Syringe) 40 mg SUBCUT Q24H [facility] Last Admin: 05/09/22 15:36 Dose: 40 mg Documented By: ALEJANDRA Escitalopram Oxalate (Escitalopram Oxalate 10 Mg Tablet) 10 mg PO DAILY [facility] Last Admin: 05/10/22 07:55 Dose: 10 mg Documented By: ALEJANDRA Gabapentin (Gabapentin 400 Mg Capsule) 800 mg PO BID [facility] Last Admin: 05/10/22 07:55 Dose: 800 mg Documented By: ALEJANDRA Hydromorphone HCl (Hydromorphone Hcl 0.5 Mg/0.5 Ml Syringe) 0.5 mg IVPUSH Q3H PRN; Protocol PRN Reason: Pain, Severe (Pain Scale 7-10) Last Admin: 05/10/22 09:34 Dose: 0.5 mg Documented By: ALEJANDRA Piperacillin Sod/Tazobactam (Sod 3.375 gm/ Sodium Chloride) 50 mls @ 100 mls/hr IV Q6H [facility] Last Admin: 05/10/22 09:33 Dose: 100 mls/hr Documented By: ALEJANDRA Metoprolol Tartrate (Metoprolol Tartrate 50 Mg Tablet) 50 mg PO BID [facility]; Protocol Last Admin: 05/10/22 07:55 Dose: 50 mg Documented By: ALEJANDRA Mirtazapine (Mirtazapine 15 Mg Tablet) 15 mg PO BEDTIME [facility] Last Admin: 05/09/22 19:39 Dose: 15 mg Documented By: CONNOR Omeprazole (Omeprazole 20 Mg Capsule.Dr) 20 mg PO DAILY@0630 [facility] Last Admin: 05/10/22 06:07 Dose: 20 mg Documented By: CONNOR Ondansetron HCl (Ondansetron Hcl 4 Mg/2 Ml Vial) 4 mg IVPUSH QID PRN PRN Reason: Nausea Last Admin: 05/09/22 12:26 Dose: 4 mg Documented By: PAWEL Ondansetron HCl (Ondansetron Hcl 4 Mg/2 Ml Vial) 4 mg IVPUSH ONCE PRN PRN Reason: Nausea and Vomiting Oxycodone HCl (Oxycodone Hcl Immed Release 5 Mg Tablet) 5 mg PO Q6H PRN PRN Reason: Pain, Moderate (Pain Scale 4-6 Last Admin: 05/10/22 06:07 Dose: 5 mg Documented By: CONNOR Pharmacy Consult (Consult Rx Perform Med Rec) 1 each MISCELLANE ONCE PRN PRN Reason: Consult order Sodium Chloride (0.9 % Sodium Chloride Flush 3 Ml Syringe) 3 ml IVFLUSH QSHIFT [facility] Last Admin: 05/10/22 06:58 Dose: Not Given Documented By: ALEJANDRA Non-Admin Reason: IV Running Labs CBC & Chem 7: 05/06/22 06:21 05/08/22 05:51 Microbiology Microbiology Results: Microbiology 05/09/22 Unknown Gram Stain - Final Chest Routine Culture - Preliminary Culture in progress. Procedures Date of Service Date of Service: 05/10/22 Progress Note: A&P Assessment and plan (1) Cellulitis of breast: Status: Acute Plan 72 year old female admitted for persistent cellulitis of the left chest following mastectomy. She underwent biopsy of the left mastectomy site yesterday under anesthesia. She is doing well today but requiring analgesics frequently. Will make tylenol ATC. Await pathology and acid-fast, fungal, and bacterial cultures. Cont IV zosyn for now. Continue to strongly encourage OOB and ambulation. Time Spent With Patient Time: Total time managing care of this patient today ____ minutes. Quality Stroke Does the patient have a stroke diagnosis?: No VTE Prior VTE?: No VTE Risk Level:: Surgical - moderate VTE Device Contraindication: N/A - Device Ordered VTE Drug Contraindication: N/A - Med Ordered
--- NOTE | 2022-05-10 09:40 | HO.POSTANES ---
Post Anesthesia Evaluation Post Anesthesia Evaluation Vital Signs: Vital Signs Temp Pulse Resp BP Pulse Ox O2 Del Method 05/10/22 07:48 98.9 F 63 16 147/72 H 97 Room Air 05/10/22 03:15 98.5 F 62 18 130/62 97 Room Air Anesthesia: Monitored Mental Status: Awake Pain Control: Satisfactory Nausea/Vomiting: None Hydration: Adequate Anesthesia-Related Issues: No Anes. Related Issues
[2022-05-10] MEDS: Acetaminophen 325 MG TABLET 975 MG PO ×3 (10:05→21:24)
--- NOTE | 2022-05-10 10:21 | MHC.CM.PN ---
Addendum entered by Svetlana Encinas RN 05/10/22 12:21: CM CONTACTED [facility] WHO SUGGESTED CM CONTACT [facility] WHO REPORTED PT'S REFERRAL FOR BED HAS AND THAT THEY HAD LET PT'S PSYCHIATRIC REGISTERED NURSE [facility] HAS BEEN NOTIFIED ADN THAT THEY HAVE NOT RECEIVED A NEW REFERRAL. Original Note: IMM DELIVERED 05/10/22, CM MET W/PT AND DTR VIA SOFTWARE INSTALLER, DTR CONT'S TO BE VERY RESISTANT TO D/C AND INSISTS SHE WILL ONLY AGREE ONCE SHE SPEAKS W/SURGEON EVEN THOUGH SURGICAL PA MET W/PT THIS MORNING. DTR ALSO COMPLAINED PT HAS BEEN WAITING FOR A HOSPITAL BED FOR 3 MOS AND PT ENDS UP IN THE HOSPITAL EVERY TIME THEY ARE PLANNING TO DELIVER BED AND BELIEVES [facility] BE FROM [facility], CM WILL FOLLOW UP WITH THEM.
[2022-05-10] MEDS: Amoxicillin/Potassium Clav 875 MG TABLET PO ×2 (11:42→21:25)
[2022-05-10 11:53] VITALS: O2SAT 96
[2022-05-10 12:00] VITALS: BP 145/67; PULSE 64; RESP 16; TEMP 37.2; O2SAT 97
--- NOTE | 2022-05-10 13:54 | HO.PM.IMPN ---
Subjective Subjective Date of Service: 05/10/22 Interval History: Patient feeling better less anterior chest wall discomfort, no fevers no chills, no lightheadedness, or dizziness, no acute events overnight, daughter in next bed concern about recurrent episodes of cellulitis therefore does not want to be discharged home.. Review of Systems Review of Systems: Yes all other systems are reviewed and are negative Physical Exam Vital Signs: Vital Signs: Last Vital Signs Temp 99.0 F 05/10/22 12:00 Pulse 64 05/10/22 12:00 Resp 16 05/10/22 12:00 BP 145/67 H 05/10/22 12:00 Pulse Ox 97 05/10/22 12:00 O2 Del Method 05/10/22 12:00 O2 Flow Rate 2 05/09/22 12:33 BMI result Body Mass Index 36.8 Const: Other: Gen:? Awake alert x3, in no acute distress Neck: supple Lungs: clear to auscultation bilaterally Heart: regular rate and rhythm, no murmurs Abd: soft, non-tender, non-distended Ext: no edema Skin: redness of L chest wall?significantly better, no warmth, less tenderness to palpation Neuro: alert and oriented x3, no focal findings Psych: appropriate affect Objective Data Active Medications Acetaminophen (Acetaminophen 325 Mg Tablet) 975 mg PO Q6H [facility] Last Admin: 05/10/22 10:05 Dose: 975 mg Documented By: ALEJANDRA Albuterol Sulfate (Albuterol Sulfate (0.083%) 2.5 Mg/3 Ml Vial.Neb) 2.5 mg INHALE Q6H PRN PRN Reason: shortness of breath or wheezing Albuterol Sulfate (Albuterol Sulfate 90 Mcg 8 Gm Inhaler) 1 puff INHALE QID PRN PRN Reason: SHORTNESS OF BREATH Amitriptyline HCl (Amitriptyline Hcl 10 Mg Tablet) 10 mg PO BEDTIME [facility] Last Admin: 05/09/22 19:39 Dose: 10 mg Documented By: CONNOR Amlodipine Besylate (Amlodipine Besylate 10 Mg Tablet) 10 mg PO DAILY [facility]; Protocol Last Admin: 05/10/22 07:55 Dose: 10 mg Documented By: ALEJANDRA Amoxicillin/Clavulanate Potassium (Amoxicillin/Potassium Clav 875 Mg Tablet) 875 mg PO BID [facility] Last Admin: 05/10/22 11:42 Dose: 875 mg Documented By: ALEJANDRA Atorvastatin Calcium (Atorvastatin Calcium 20 Mg Tablet) 20 mg PO BEDTIME [facility] Last Admin: 05/09/22 19:39 Dose: 20 mg Documented By: CONNOR Enoxaparin Sodium (Enoxaparin Sodium 40 Mg/0.4 Ml Syringe) 40 mg SUBCUT Q24H [facility] Last Admin: 05/09/22 15:36 Dose: 40 mg Documented By: ALEJANDRA Escitalopram Oxalate (Escitalopram Oxalate 10 Mg Tablet) 10 mg PO DAILY [facility] Last Admin: 05/10/22 07:55 Dose: 10 mg Documented By: ALEJANDRA Gabapentin (Gabapentin 400 Mg Capsule) 800 mg PO BID [facility] Last Admin: 05/10/22 07:55 Dose: 800 mg Documented By: ALEJANDRA Metoprolol Tartrate (Metoprolol Tartrate 50 Mg Tablet) 50 mg PO BID [facility]; Protocol Last Admin: 05/10/22 07:55 Dose: 50 mg Documented By: ALEJANDRA Mirtazapine (Mirtazapine 15 Mg Tablet) 15 mg PO BEDTIME [facility] Last Admin: 05/09/22 19:39 Dose: 15 mg Documented By: CONNOR Omeprazole (Omeprazole 20 Mg Capsule.Dr) 20 mg PO DAILY@0630 [facility] Last Admin: 05/10/22 06:07 Dose: 20 mg Documented By: CONNOR Ondansetron HCl (Ondansetron Hcl 4 Mg/2 Ml Vial) 4 mg IVPUSH QID PRN PRN Reason: Nausea Last Admin: 05/09/22 12:26 Dose: 4 mg Documented By: PAWEL Ondansetron HCl (Ondansetron Hcl 4 Mg/2 Ml Vial) 4 mg IVPUSH ONCE PRN PRN Reason: Nausea and Vomiting Oxycodone HCl (Oxycodone Hcl Immed Release 5 Mg Tablet) 5 mg PO Q6H PRN PRN Reason: Pain, Moderate (Pain Scale 4-6 Last Admin: 05/10/22 06:07 Dose: 5 mg Documented By: CONNOR Pharmacy Consult (Consult Rx Perform Med Rec) 1 each MISCELLANE ONCE PRN PRN Reason: Consult order Sodium Chloride (0.9 % Sodium Chloride Flush 3 Ml Syringe) 3 ml IVFLUSH QSHIFT [facility] Last Admin: 05/10/22 06:58 Dose: Not Given Documented By: ALEJANDRA Non-Admin Reason: IV Running Labs CBC & Chem 7: 05/06/22 06:21 05/08/22 05:51 Microbiology Microbiology Results: Microbiology 05/09/22 Unknown Gram Stain - Final Chest Routine Culture - Preliminary Culture in progress. Assessment and Plan (1) Cellulitis of breast: Status: Acute (2) HTN (hypertension): Status: Acute Plan 72yo F with hx of LCIS s/p bilateral mastectomy, recent admission for bilateral chest wall cellulitis treated with IV vancomycin and pip-jia as well as I+D of a seroma.? Presenting with fever and admitted to the surgical service for recurrent chest wall cellulitis.? She is not meeting sepsis criteria at this time. # recurrent Left chest wall cellulitis Less redness and discomfort - on IV pip-jia + vanc day 5 , blood cultures x2 negative, patient afebrile normal WBC count, will transition to by mouth antibiotic Augmentin for a week and then by mouth penicillin v 250 b.i.d. for suppressive treatment due to recurrent infection Normal renal function DC IV Dilaudid s/p skin biopsy by Dr. Malik , follow biopsy report, gm. stain showed no organism,cultures and acid-fast bacilli and cryptococcal antigen pending Case discussed with Dr. Malik. # HTN - continue metoprolol + amlodipine and follow BP # chronic kidney disease stage 3 stable # HLD - continue statin # neuropathy - continue gabapentin + amitriptylline # intermittent asthma - no acute exacerbation, prn albuterol # mood disorder - stable mood, citalopram + mirtazapine + trazodone # preDM - no insulin required, blood sugar stable # VTE ppx: LMWH Time Spent With Patient Time: Total time managing care of this patient today ____ minutes. Quality Stroke Does the patient have a stroke diagnosis?: No VTE Prior VTE?: No VTE Risk Level:: Surgical - moderate VTE Device Contraindication: N/A - Device Ordered VTE Drug Contraindication: N/A - Med Ordered
[2022-05-10 15:18] VITALS: BP 141/62; PULSE 63; RESP 18; TEMP 36.7; O2SAT 95
[2022-05-10] MEDS: Enoxaparin Sodium 40 MG/0.4 ML SYRINGE SUBCUT (16:00)
[2022-05-10] MEDS: 0.9 % Sodium Chloride Flush 3 ML SYRINGE IVFLUSH ×2 (16:03→21:25)
[2022-05-10 19:28] VITALS: BP 132/60; PULSE 62; RESP 18; TEMP 36.7; O2SAT 94
[2022-05-10] MEDS: Atorvastatin Calcium 20 MG TABLET PO (21:24)
[2022-05-10] MEDS: Amitriptyline HCl 10 MG TABLET PO (21:25)
[2022-05-10] MEDS: Mirtazapine 15 MG TABLET PO (21:25)
[2022-05-11 03:32] VITALS: BP 142/65; PULSE 61; RESP 18; TEMP 36.3; O2SAT 97
[2022-05-11] MEDS: oxyCODONE HCl Immed Release 5 MG TABLET PO (03:59)
[2022-05-11] MEDS: Acetaminophen 325 MG TABLET 975 MG PO (04:00)
[2022-05-11] MEDS: Omeprazole 20 MG CAPSULE.DR PO (05:28)
[2022-05-11] MEDS: amLODIPine Besylate 10 MG TABLET PO (07:25)
[2022-05-11] MEDS: 0.9 % Sodium Chloride Flush 3 ML SYRINGE IVFLUSH (07:25)
[2022-05-11] MEDS: Amoxicillin/Potassium Clav 875 MG TABLET PO (07:25)
[2022-05-11] MEDS: Escitalopram Oxalate 10 MG TABLET PO (07:25)
[2022-05-11] MEDS: Metoprolol Tartrate 50 MG TABLET PO (07:25)
[2022-05-11] MEDS: Gabapentin 400 MG CAPSULE 800 MG PO (07:25)
[2022-05-11 07:37] VITALS: BP 168/77; PULSE 62; RESP 17; TEMP 36.6; O2SAT 96
--- NOTE | 2022-05-11 09:40 | MHC.CM.PN ---
Addendum entered by Svetlana Encinas RN 05/11/22 09:47: PT WILL RESME [facility]/VASC TECH HRS UPON D/C. Original Note: Pt medically cleared for d/c w/resump of services, pt will d/c to Oncology appt at 11am, dtr will transport pt to appt and home.
--- NOTE | 2022-05-23 15:06 | PM.DS ---
DS: Providers Provider Date of Service: 05/11/22 Date of admission: 05/05/22 15:04 Date of discharge: 05/11/22 Primary care physician: Milan Mcgraw PA-C Admitting clinician: Renard Malik Consults: 05/05/22 15:02 Consult to Infectious Diseases Routine Consulting Provider: Becky Plunkett Reason for consultation: recurrent chest wall cellulitis after mastectomy 05/05/22 15:03 Consult to Hospitalist Routine Consulting Provider: Hospitalist Reason For Exam: chest wall cellulitis, QUIN, med management Attending physician on discharge: Renard Malik DS: Diagnosis Discharge Diagnosis (1) Cellulitis of breast: Status: Resolved (2) HTN (hypertension): Status: Acute DS: Summary Hospital Course Hospital Course: Beatriz Aguayo is a 72 year old female presenting on 05/06/2022 with complaints of fever and pain in the left chest.? She is status post bilateral mastectomy complicated by a seroma and cellulitis of the left chest wall.? She was previously admitted for similar complaints and treated with IV antibiotics and subsequently discharged home on oral antibiotics with complete resolution of her symptoms.? On the day prior to presentation she was visited by the [facility]NA and found to have a fever of 102.? Redness was noted in the left chest wall and she was subsequently asked to return to the emergency department.? Initial evaluation in the? ED revealed a normal temperature but redness in the chest wall.? WBC was normal as well.? She was admitted to the surgical service for further management and placed on IV Tylenol.? Infectious disease and hospitalist consultation was obtained. Consideration was made for possible deep fungal infection. She was taken to the OR for skin biopsy to evaluate for tumor recurrence as well as to culture for acid-fast bacteria, routine culture and fungus. She was kept on Zosyn for approximately 5 days then switch to p.o. Augmentin for 1 week followed by penicillin V 250 mg p.o. b.i.d. as a suppressive dose. She was subsequently discharged to home on 03/11/2022. She will follow up my office in approximately 1 week and also follow up with Dr. Plunkett. Time spent discussing smoking cessation with patient: 3 to 10 minutes Status at Discharge Functional status at discharge: uses cane/walker Overall status at discharge: patient is not back to baseline Time Spent with Patient Time attestation: Total time managing care of this patient today _25_ minutes. Discharge coordination time: Less than 30 minutes Quality: Safe Use of Opioids Does Pt have an Active Cancer Diagnosis on the Problem List?: Yes Opioid Measure Date for [facility] Report: 04/23/22 Opioid Measure Time for [facility] Report: 15:16 Quality: Stroke Does the patient have a stroke diagnosis?: No Physical Exam Vital Signs: Vital Signs: Last Vital Signs Temp 97.9 F 05/11/22 07:37 Pulse 62 05/11/22 07:37 Resp 17 05/11/22 07:37 BP 168/77 H 05/11/22 07:37 Pulse Ox 96 05/11/22 07:37 O2 Del Method 05/11/22 07:37 O2 Flow Rate 2 05/09/22 12:33 BMI result Body Mass Index 36.8 Const: General: comfortable, no acute distress and alert Orientation/consciousness: patient oriented x3 Chest: Other: left chest biopsy site mildly tender, minimal erythema, dressing intact Resp: Effort & Inspection: normal respiratory effort Skin: General skin exam: no rashes or lesions noted Neuro: General: patient oriented x3 Extrem: General: Yes no clubbing, cyanosis or edema DS: Data Data Completed and Pending Completed studies during hospitalization [Text1]: Pending at discharge 05/09/22 11:48 Surgical [PTH] Routine Procedures Drainage of Chest Wall with Drainage Device, Open Approach (04/13/22) Drainage of Left Breast, Percutaneous Approach (03/30/22) Excision of Chest Subcutaneous Tissue and Fascia, Open Approach, Diagnostic (05/05/22) Resection of Bilateral Breast, Open Approach (02/19/22) Resection of Right Axillary Lymphatic, Open Approach (02/19/22) Discharge Plan Discharge Anticipated Discharge Date/Time: 05/11/22 10:11 Patient Disposition: Home Health Service Discharge Diagnosis: Left chest celluitis Referrals: Sandra FARRELL [Outside] - 1 Day (RESUMPTION OF CARE) Milan Mcgraw PA-C [Primary Care Provider] - 1 Week Renard Malik MD [Physician] - 2 Weeks Discharge Medications: New nystatin 100,000 unit/gram cream 1 appl topical BID Qty: 30 0RF penicillin V potassium 250 mg tablet 250 mg PO BID Qty: 60 0RF Rx Instructions: Please start after completing Augmentin prescription Continued (DME) blood-glucose meter [FreeStyle Lite Meter] Kit See Rx Instructions .ROUTE .MEDSUPPLY Qty: 1 0RF Rx Instructions: As directed atorvastatin 20 mg tablet 20 mg PO BEDTIME trazodone 100 mg tablet 200 mg PO BEDTIME acetaminophen 325 mg Tablet 975 mg PO Q6H Qty: 60 0RF citalopram 20 mg tablet 1 tab PO DAILY (DME) lancets [FreeStyle Lancets] 28 gauge misc See Rx Instructions .ROUTE .MEDSUPPLY Qty: 100 3RF Rx Instructions: As directed (DME) FreeStyle Lite Strips Strip See Rx Instructions .ROUTE .MEDSUPPLY Qty: 100 3RF Rx Instructions: As directed gabapentin 800 mg tablet 800 mg PO BID 30 Days Qty: 60 3RF metoprolol tartrate 50 mg tablet 50 mg PO BID Qty: 180 2RF omeprazole 20 mg capsule,delayed release(DR/EC) 20 mg PO DAILY 90 Days Qty: 90 1RF mirtazapine [Remeron] 15 mg tablet 15 mg PO BEDTIME 30 Days Qty: 30 3RF oxycodone 10 mg tablet 10 mg PO TID PRN (Reason: pain) 30 Days Qty: 90 0RF Rx Instructions: Cancer related pain- increase dose to 10mg TID albuterol sulfate [Ventolin HFA] 90 mcg/actuation HFA aerosol inhaler 1 puff inhalation QID 30 Days Qty: 8.5 6RF albuterol sulfate 2.5 mg /3 mL (0.083 %) solution for nebulization 2.5 mg inhalation Q6H PRN (Reason: shortness of breath or wheezing) 30 Days Qty: 180 1RF (DME) Blood Pressure Cuff Misc See Rx Instructions .ROUTE .MEDSUPPLY Qty: 1 0RF Rx Instructions: As directed amitriptyline 10 mg tablet 10 mg PO BEDTIME Qty: 90 2RF amlodipine 10 mg tablet 10 mg PO DAILY 90 Days Qty: 90 1RF Discontinued levofloxacin 500 mg tablet 500 mg PO DAILY 10 Days Qty: 10 0RF metronidazole 500 mg tablet 500 mg PO Q8H 10 Days Qty: 30 0RF No Action penicillin V potassium 250 mg tablet 250 mg PO BID 30 Days Qty: 60 5RF fluconazole [Diflucan] 150 mg tablet 150 mg PO Q3D Qty: 2 0RF Discharge Orders: Discharge Order (Routine); Ordered 05/11/22 Ordered By: Renard Malik Diet: Advance to usual diet Activity on Discharge: As tolerated Stand Alone Forms: Patient Portal Discharge page Care Plan Goals: Return to normal diet and activity Health Concerns: cellulitis left chest wall after mastectomy Plan of Treatment: Oral antibiotics, topical antifungal cream Assessment: Cellulitis left chest wall Discharge Date/Time: 05/11/22 11:26
== END 2022-05-11 11:26 | disposition home health service (06) | DRG 863 ==
LOC: HO.ED 15:14 → HO.EDOVER 15:24 → HO.S3 05-06 07:32
PROVIDERS: Family Medicine; Hospitalist; Admitting Provider Surgery; Emergency Provider Emergency Medicine; PCP Physician Assistant; Visit Provider Surgery
PROC: 0JB60ZX Excision of Chest Subcutaneous Tissue and Fascia, Open Approach, Diagnostic (ICD-10-PCS; principal; 2022-05-09 11:10)
DX: T81.49XA Infection following a procedure, other surgical site, initial encounter (principal); L03.313 Cellulitis of chest wall; E78.5 Hyperlipidemia, unspecified; G62.9 Polyneuropathy, unspecified; R73.03 Prediabetes; J45.20 Mild intermittent asthma, uncomplicated; F39 Unspecified mood [affective] disorder; I12.9 Hypertensive chronic kidney disease with stage 1 through stage 4 chronic kidney disease, or unspecified chronic kidney disease; Z85.3 Personal history of malignant neoplasm of breast; Y83.8 Other surgical procedures as the cause of abnormal reaction of the patient, or of later complication, without mention of misadventure at the time of the procedure; N18.30 Chronic kidney disease, stage 3 unspecified; Z90.13 Acquired absence of bilateral breasts and nipples; Z20.822 Contact with and (suspected) exposure to COVID-19; Z79.899 Other long term (current) drug therapy
CPT/HCPCS: 36415; 80048; 80053; 80202; 82565; 82947; 85025; 85652; 86140; 86403; 87040; 87070; 87116; 87205; 87635; 88304; 88312; 99285; J0131; J1170; J1650; J2250; J2270; J2405; J2543; J3010; J3370

== ENCOUNTER → 2022-05-14 14:08 | Outpatient (BNVA) | payer OTHER, SELFPAY | PROVIDERS: PCP Physician Assistant; Visit Provider Internal Medicine | DX: N61.0 Mastitis without abscess (principal) | CPT/HCPCS: 99212 ==

== ENCOUNTER → 2022-05-22 14:48 | Outpatient (BNVA) | payer OTHER, SELFPAY | PROVIDERS: PCP Physician Assistant; Visit Provider Surgery | DX: Z13.89 Encounter for screening for other disorder (principal) ==

== ENCOUNTER 2022-06-07 10:30 | Outpatient (REF) | payer OTHER, SELFPAY ==
--- NOTE | ~2022-06-07 | MM_ITS ---
EXAMINATION: BONE DENSITOMETRY CLINICAL INDICATION: Osteopenia. COMPARISON: Baseline BD dated 03/20/2016. TECHNIQUE: Using a [employer] DXA System (software version: 13.1) manufactured by [employer], dual-energy x-ray absorptiometry was performed of the lumbar spine and left hip. The images are of good technical quality. Summary results are attached. FINDINGS: AP SPINE L1-L4 (excluding L3): The data of L1-L4 has been changed to exclude the L3 vertebral body, because degenerative changes at this level may cause overestimation of lumbar spine density. Current: BMD 1.284 g/cm2, Z-score 2.2, T-score 0.9, normal, 3.4% increase from baseline (<5% change is not significant). Baseline: BMD 1.242 g/cm2. LEFT FEMUR, NECK: Current: BMD 0.734 g/cm2, Z-score -0.6, T-score -2.2, osteopenia. Baseline: BMD 0.863 g/cm2. LEFT FEMUR, TOTAL: Current: BMD 0.906 g/cm2, Z-score 0.6, T-score -0.8, normal, 11.5% decrease from baseline (<5% change is not significant). Baseline: BMD 1.024 g/cm2. IDENTIFIED RISK FACTORS: Dementia. Recurrent falls. Height loss. Secondary osteoporosis (early menopause). Hysterectomy. Bilateral oophorectomy. HISTORY OF FRACTURE: None listed. MEDICATIONS: None listed. MM/XR DEXA axial skeleton IMPRESSION: 1. DIAGNOSIS: Osteopenia based on the lowest T-score value of -2.2 in the femoral neck applying World Health Organization criteria. 2. 10-YEAR FRACTURE RISK PREDICTION, FRAX: Major osteoporotic fracture (clinical spine, forearm, hip or shoulder) 17.4%. Hip fracture 1.8%. 3. Treatment Recommendations: NOF guidelines recommend consideration for treatment in postmenopausal women and men age 50 and older presenting with the following: -A hip or vertebral (clinical or morphometric) fracture. -T-score less than or equal to -2.5 at the femoral neck or spine after appropriate evaluation to exclude secondary causes. -Low bone mass at the hip or spine and a 10-year fracture probability by FRAX of greater than or equal to 3% for hip fracture or greater than or equal to 20% for major osteoporotic fracture based on the [place] adapted WHO algorithm. 4. Other Recommendations: All treatment decisions require clinical judgment and consideration of individual patient factors, including patient preferences, comorbidities, previous drug use, risk factors not captured in the FRAX model (e.g. frailty, falls, vitamin D deficiency, increased bone turnover, interval significant decline in bone density) and possible under or overestimation of fracture risk by FRAX. Additional medical evaluation for secondary cause of low bone mineral density may be appropriate. FUTURE SCAN RECOMMENDATION: People with diagnosed cases of osteoporosis or at high risk for fracture should have regular bone mineral density tests. For patients eligible for Medicare, routine testing is allowed once every 2 years. The testing frequency can be increased to one year for patients who have rapidly progressing disease, those who are receiving or discontinuing medical therapy to restore bone mass, or have additional risk factors.
== END 2022-06-07 10:31 | disposition home or self-care (01) ==
LOC: HO.MAMMO 10:30
PROVIDERS: PCP Physician Assistant; Visit Provider Internal Medicine Medical Oncology
DX: Z13.820 Encounter for screening for osteoporosis (principal); Z78.0 Asymptomatic menopausal state; C50.919 Malignant neoplasm of unspecified site of unspecified female breast; M85.80 Other specified disorders of bone density and structure, unspecified site
CPT/HCPCS: 77080

== ENCOUNTER → 2022-06-15 11:01 | Outpatient (BNVA) | payer OTHER, SELFPAY | PROVIDERS: PCP Physician Assistant; Visit Provider Internal Medicine | DX: N61.0 Mastitis without abscess (principal) | CPT/HCPCS: 99212 ==

== ENCOUNTER → 2022-07-30 13:30 | Outpatient (BNVA) | payer OTHER, SELFPAY | PROVIDERS: PCP Physician Assistant; Visit Provider Nurse Practitioner Family | DX: G47.19 Other hypersomnia (principal); G47.9 Sleep disorder, unspecified; F09 Unspecified mental disorder due to known physiological condition; R06.83 Snoring | CPT/HCPCS: 99202 ==

== ENCOUNTER → 2022-08-15 14:49 | Outpatient (REF) | payer OTHER, SELFPAY ==
[2022-08-15 15:20] LABS: MANUAL DIFF FLAG NO
[2022-08-15 16:03] LABS: Basophils Percent Auto 0.3 % (0-2); Eosinophils Absolute Auto 0.3 X10*3/uL (0.0-0.4); Eosinophils Percent Auto 3.3 % (0-4); Hematocrit 37.7 % (37.0-47.0); Hemoglobin 12.1 g/dl (12.0-16.0); Imm Gran Abs Auto 0.02 X10*3/uL (0.00-0.03); Imm Gran Pct Auto 0.2 % (0.0-0.4); Lymphocytes Absolute Auto 2.4 X10*3/uL (1.2-4.9); Lymphocytes Percent Auto 27.5 % (20-40); Mean Corpuscular HGB Conc 32.1 g/dl (31.0-35.0); Mean Corpuscular Hemoglobin 28.5 pg (27.0-33.0); Mean Corpuscular Volume 88.7 fL (80.0-98.0); Mean Platelet Volume 10.2 fL (9.4-12.3); Monocytes Absolute Auto 0.5 X10*3/uL (0.1-1.2); Monocytes Percent Auto 5.3 % (2-11); Neutrophils Absolute Auto 5.5 x10*3/uL (2.0-8.3); Neutrophils Percent Auto 63.4 % (45-73); Platelet Count 366 X10*3/uL (160-400); Red Blood Count 4.25 X10*6/uL (4.20-5.50); Red Cell Distribution Width 14.6 % (11.0-16.0); White Blood Count 8.8 X10*3/uL (4.8-10.8)
[2022-08-15 16:48] LABS: Alanine Aminotransferase 15 U/L (0-31); Alkaline Phosphatase 73 U/L (39-117); Anion Gap 15 (12-20); Aspartate Amino Transferase 18 U/L (5-31); Bilirubin Total 0.3 mg/dL (0.0-1.0); Blood Urea Nitrogen 23 mg/dL (9-16); Calcium 8.9 mg/dL (8.4-10.2); Carbon Dioxide 23 mmol/L (22-29); Chloride 107 mmol/L (96-108); Estimated Glomerular Filt Rate 45; Glucose Random 110 mg/dL (60-115); Potassium 4.9 mmol/L (3.3-5.1); Sodium 140 mmol/L (135-145); Total Protein 6.9 g/dL (6.5-8.0)
[2022-08-15 17:26] LABS: Folate 7.6 ng/mL (> or = 4.0); TSH reflex Free T4 1.38 uIU/mL (0.32-4.0)
[2022-08-16 06:46] LABS: Vitamin B12 443 pg/mL (200-900)
[2022-08-17 04:02] LABS: Syphilis Screen Nonreactive (Nonreactive)
[2022-08-17 04:15] LABS: HIV AB/AG Nonreactive (Nonreactive); HIV Num 1 0.05 S/CO (0.00-0.99)
== END ==
LOC: HO.SL 14:49
PROVIDERS: Internal Medicine Medical Oncology; PCP Physician Assistant; Visit Provider Nurse Practitioner Family
DX: D64.9 Anemia, unspecified (principal); F09 Unspecified mental disorder due to known physiological condition; I10 Essential (primary) hypertension; M79.2 Neuralgia and neuritis, unspecified; G47.00 Insomnia, unspecified; G47.19 Other hypersomnia; G47.9 Sleep disorder, unspecified; R06.83 Snoring; C50.911 Malignant neoplasm of unspecified site of right female breast; C50.912 Malignant neoplasm of unspecified site of left female breast
CPT/HCPCS: 36415; 80053; 82607; 82746; 84443; 85025; 86780; 87389; 95806

== ENCOUNTER → 2022-09-11 09:32 | Outpatient (BNVA) | payer OTHER, SELFPAY | PROVIDERS: PCP Physician Assistant; Visit Provider Surgery | DX: Z08 Encounter for follow-up examination after completed treatment for malignant neoplasm (principal); N61.0 Mastitis without abscess; C50.911 Malignant neoplasm of unspecified site of right female breast; C50.912 Malignant neoplasm of unspecified site of left female breast; Z90.13 Acquired absence of bilateral breasts and nipples | CPT/HCPCS: 99212 ==

== ENCOUNTER 2022-09-13 11:25 | Emergency (ER) | payer OTHER, SELFPAY ==
--- NOTE | ~2022-09-13 | CT_ITS ---
EXAMINATION: CT HEAD WITHOUT CONTRAST CLINICAL INFORMATION: Headache and lightheadedness. COMPARISON: Head CT from 03/26/2022 TECHNIQUE: Contiguous axial imaging was performed from the skull base to vertex without intravenous administration of contrast. This CT examination was performed using dose optimization techniques as appropriate, variously including the following: *Automated exposure control *Adjustment of mA and/or kV according to patient size (this includes techniques or standardized protocols for targeted exams where dose is matched to indication/reason for exam; i.e. extremities or head) *Use of iterative reconstruction technique DLP: 602 mGy-cm FINDINGS: No acute findings compared to 03/26/2022. No intracranial hemorrhage, extra-axial fluid collection, focal mass effect or midline shift. Chronic moderate parenchymal loss with commensurate prominence of ventricles and sulci. Chronic patchy hypoattenuation within supratentorial white matter is compatible with sequela of moderate microangiopathy. The sorensen-white matter differentiation is maintained. No evidence of an acute major vascular territory infarction. There is a partially empty appearance of the sella turcica. Since there is observation of only a few chambers for the ethmoid sinus, query if there is any remote history of ethmoid surgery. Secretions are present within the right posterior ethmoid air cell. Mastoid air cells are well aerated. The orbits and temporomandibular joints are unremarkable. CT/CT head/brain wo IV con IMPRESSION: No acute intracranial pathology compared to the prior head CT from 03/26/2022. Chronic moderate parenchymal volume loss and chronic changes of moderate microangiopathy affecting the supratentorial white matter.
--- NOTE | ~2022-09-13 | CT_ITS ---
EXAMINATION: CT CERVICAL SPINE WITHOUT CONTRAST CLINICAL INFORMATION: Acute onset of severe neck pain. COMPARISON: CT cervical spine from 04/18/2019. MRI of cervical spine from 09/01/2021. TECHNIQUE: Noncontrast multidetector CT imaging examination of the cervical spine is performed. Axial images and multiplanar reformatted images are reviewed. This CT examination was performed using dose optimization techniques as appropriate, variously including the following: *Automated exposure control *Adjustment of mA and/or kV according to patient size (this includes techniques or standardized protocols for targeted exams where dose is matched to indication/reason for exam; i.e. extremities or head) *Use of iterative reconstruction technique DLP: 517 mGy-cm FINDINGS: No acute abnormalities in the cervical spine compared to 09/01/2021. The craniocervical junction is normal. The occipital condyles, dens and atlantodental articulation are intact. Chondrocalcinosis of the degenerated spine. There is calcium deposition (likely calcium pyrophosphate dihydrate crystal deposition) along the transverse ligament posterior to the dens. Chronic multilevel facet osteoarthritis and associated chronic minimal anterolisthesis at C3-C4, C4-C5, C5-C6 and C6-C7. These findings are unchanged compared to the prior CT exam from 04/18/2019. The degenerative loss of disc height is moderate at C5-C6 and [id number] at C6-C7. Again noted are small posterior disc-osteophyte complexes at C5-C6 and C6-C7 that cause mild spinal canal stenosis. There are varying degrees of chronic multilevel bilateral neural foraminal stenosis, including moderate left-sided foraminal stenosis at C2-C3, [id number] bilateral foraminal stenosis at C3-C4, moderate left-sided foraminal stenosis at C4-C5 and [id number] right neural foraminal stenosis at C5-C6. The vertebral body heights are maintained. No fractures in the anterior or posterior elements. No prevertebral soft tissue edema or spinal hematoma. Small, 0.6 cm partially rim calcified nodule in the left thyroid lobe is unchanged. No large or clinically significant nodule. No thyroid imaging follow-up recommended.. The examined lung apices are clear. Partially empty appearance of the sella turcica. No acute findings in the visualized portion the brain. CT/CT cervical spine wo IV con IMPRESSION: No specific cause of acute onset of neck pain is identified. The degenerative changes within the spine remain similar in appearance compared to 04/18/2019. There has been no change in degree of mild spinal canal stenosis at C5-C6 and C6-C7 or in the multilevel neural foraminal stenosis as seen on the CT cervical spine from 04/18/2019 and MRI cervical spine from 09/01/2021.
--- NOTE | 2022-09-13 11:27 | ED.HA ---
HPI - Headache General Chief Complaint: Headache <MARTELL Bhandari - Last Filed: 09/13/22 11:32> Stated Complaint: headaches rad. to back of neck <MARTELL Bhandari - Last Filed: 09/13/22 11:32> Time Seen by Provider: 09/13/22 12:53 <MARTELL Bhandari - Last Filed: 09/13/22 11:32> Source: patient <Carlos Easton MD - Last Filed: 09/13/22 15:23> Mode of arrival: ambulatory <Carlos Easton MD - Last Filed: 09/13/22 15:23> Limitations: no limitations <Carlso Easton MD - Last Filed: 09/13/22 15:23> History of Present Illness HPI Narrative: 72-year-old female presents with neck pain. Neck pain started 1 week ago. Is nontraumatic. The pain is described as severe. It is constant. The pain is sharp. It is worse with movement. The pain does not radiate. Treatment includes Excedrin and Tylenol. Symptoms are not improved by this treatment. Patient has never had pain like this before. She denies any fevers or chills. She denies any significant headache although sometimes the pain is in the occipital area. She denies any rashes. She denies any numbness, tingling or focal weakness. <Carlos Easton MD - Last Filed: 09/13/22 15:23> Related Data Home Medications: Home Medications Medication Instructions Recorded Confirmed citalopram 20 mg tablet 1 tab PO DAILY 05/05/22 08/17/22 acetaminophen 325 mg tablet 325 mg PO Q6H 07/30/22 08/17/22 gabapentin 800 mg tablet 800 mg PO DAILY 07/30/22 08/17/22 Previous Rx's Medication Instructions Recorded blood-glucose meter (FreeStyle #1 ea 05/25/20 Lite Meter kit) blood sugar diagnostic (FreeStyle #100 ea 07/25/21 Lite Strips) lancets 28 gauge (FreeStyle #100 ea 07/25/21 Lancets) omeprazole 20 mg capsule,delayed 20 mg PO DAILY 90 days #90 caps 01/24/22 release miscellaneous medical supply #1 ea 03/08/22 (Blood Pressure Cuff) albuterol sulfate 90 mcg/actuation 1 puff inhalation QID 30 days #8.5 05/01/22 aerosol inhaler (Ventolin HFA) grams penicillin V potassium 250 mg 250 mg PO BID #60 tabs 05/11/22 tablet cholecalciferol (vitamin D3) 50 50 mcg PO DAILY #30 tabs 06/01/22 mcg (2,000 unit) tablet (Vitamin D3) atorvastatin 20 mg tablet 20 mg PO BEDTIME #90 tabs 06/09/22 metoprolol tartrate 50 mg tablet 50 mg PO BID #180 tabs 06/09/22 trazodone 100 mg tablet 200 mg PO BEDTIME 90 days #180 tabs 06/10/22 tamoxifen 20 mg tablet 20 mg PO DAILY #90 tabs 06/18/22 albuterol sulfate 2.5 mg/3 mL 2.5 mg (3 mL) inhalation Q6H PRN 07/20/22 (0.083 %) solution for nebulization for wheezing #150 mL amlodipine 10 mg tablet 10 mg PO DAILY 90 days #90 tabs 07/22/22 amitriptyline 10 mg tablet 20 - 30 mg PO BEDTIME 30 days #90 07/30/22 tabs mirtazapine 15 mg tablet (Remeron) 15 mg PO BEDTIME 30 days #30 tabs 07/31/22 oxycodone 10 mg tablet 10 mg PO Q8H pain 28 days #84 tabs 08/14/22 dicyclomine 10 mg capsule 20 mg PO QID 30 days #240 caps 08/16/22 loperamide 2 mg capsule 4 mg PO Q8H PRN loose stool 30 08/16/22 days #180 caps diaper,brief,adult,disposable #200 ea 08/20/22 (Briefs, Adult-Extra Large) incontinence pad, liner, disp #400 ea 08/20/22 miscellaneous medical supply 1 ea miscellaneous DAILY 90 days 08/20/22 #200 ea cyclobenzaprine 5 mg tablet 10 mg PO TID PRN muscle spasm #14 09/13/22 tabs lidocaine 5 % topical patch 2 patch topical DAILY #30 ea 09/13/22 (Lidoderm) meloxicam 7.5 mg tablet 7.5 mg PO DAILY #14 tabs 09/13/22 oxycodone 5 mg tablet 5 mg PO TID PRN pain #10 tabs 09/13/22 <MARTELL Bhandari - Last Filed: 09/13/22 11:32> Allergies/Adverse Reactions: Allergies Allergy/AdvReac Type Severity Reaction Status Date / Time No Known Allergies Allergy Verified 09/13/22 11:28 [No Known Allergies*] <MARTELL Bhandari - Last Filed: 09/13/22 11:32> [facility] Past Medical History Medical History: Medical History Arthritis Asthma Cellulitis of breast Depression Diabetes 1.5, managed as type 2 GERD (gastroesophageal reflux disease) HTN (hypertension) IBS (irritable bowel syndrome) 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 malignant neoplasm of right breast Seroma Traumatic complete tear of right rotator cuff <MARTELL Bhandari - Last Filed: 09/13/22 11:32> Surgical History: Surgical History History of bilateral mastectomy (02/19/22) History of colonoscopy History of esophagogastroduodenoscopy (EGD) History of lumbar fusion History of lumpectomy of both breasts History of surgery Hx of appendectomy Hx of blepharoplasty Hx of cholecystectomy S/P bilateral mastectomy S/P [id number] (total abdominal hysterectomy and bilateral salpingo-oophorectomy) <MARTELL Bhandari - Last Filed: 09/13/22 11:32> Family History Family History: Family History Father Heart problem Mother Heart disease Hypertension Colon cancer Epilepsy Maternal Grandmother Esophageal cancer Daughter Breast cancer Brother Lung cancer Sister Breast cancer Sister Breast cancer, Onset Age: 60 Sister COVID <MARTELL Bhandari - Last Filed: 09/13/22 11:32> Social History Social History: Social History Household Members: None Housing: Apartment Are you a primary inpatient care manager rn to a significant other at home: No Do you presently have visiting nurse or other home services: Yes Alcohol intake: current Alcohol intake frequency: a few times a month Patient Tobacco Use Status: Never used Tobacco e-Cigarette/Vaping Use: Never Used Second Hand Smoke Exposure: No Advance Directives: Yes Advance Directives on File: Yes Advance Directives Date on File: 09/26/21 service: No Current occupational status: disabled 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) Hearing needs: No Vision needs: Yes <MARTELL Bhandari - Last Filed: 09/13/22 11:32> Physical Exam Vital Signs: Vital Signs: Last Vital Signs Temp 98.1 F 09/13/22 14:13 Pulse 76 09/13/22 14:13 Resp 18 09/13/22 14:13 BP 169/94 H 09/13/22 14:13 Pulse Ox 97 09/13/22 14:13 O2 Del Method Room Air 09/13/22 14:13 BMI result Body Mass Index 38.5 <MARTELL Bhandari - Last Filed: 09/13/22 11:32> Vital Signs: Last Vital Signs Temp 98.1 F 09/13/22 14:13 Pulse 76 09/13/22 14:13 Resp 18 09/13/22 14:13 BP 169/94 H 09/13/22 14:13 Pulse Ox 97 09/13/22 14:13 O2 Del Method Room Air 09/13/22 14:13 BMI result Body Mass Index 38.5 <Carlos Easton MD - Last Filed: 09/13/22 15:23> GEN: Well developed, no acute distress, alert, oriented HEENT: Normocephalic, atraumatic, normal external ears, nose appears normal, no oropharyngeal edema or exudates Eyes: Normal to appearance Neck: Decreased range of motion fowler secondary to pain, no midline tenderness, bilateral paraspinous tenderness Respiratory: Talks in complete sentences, no respiratory distress, clear to auscultation bilaterally Cardiovascular: Regular rate and rhythm, no murmurs rubs or gallops Abdomen: Soft, nontender, nondistended, no guarding, no rebound Back: No CVA tenderness Extremities: No clubbing cyanosis or edema Neurologic: No focal neurologic deficits, cranial nerves 2-12 intact, strength is 5/5 bilaterally Skin: No rash <Carlos Easton MD - Last Filed: 09/13/22 15:23> Course Course Course Narrative: RME--72-year-old female the past medical history of asthma, arthritis, depression, diabetes, GERD, HTN, breast CA, presenting to the ED complaining of severe HERNANDEZ radiating to neck x1 week. HERNANDEZ not maximal at onset. Admits to assoc nausea & lightheadedness. Denies vomiting, visual loss/change. Denies taking anticoagulation or history of migraines BP 174/93 in triage, appears very uncomfortable, did not take any HERNANDEZ meds today EKG, labs, head CT ordered <MARTELL Bhandari - Last Filed: 09/13/22 11:32> Medications Administered Discontinued Medications Generic Name Dose Route Start Last Admin Trade Name Freq PRN Reason Stop Dose Admin Acetaminophen 975 mg 09/13/22 13:28 09/13/22 14:09 Acetaminophen 325 Mg Tablet PO 09/13/22 13:29 975 mg ONCE ONE Administration Morphine Sulfate 4 mg 09/13/22 13:28 09/13/22 14:08 Morphine Sulfate 4 Mg/Ml Cartridge IM 09/13/22 13:29 4 mg ONCE ONE Administration Protocol Ondansetron HCl 4 mg 09/13/22 13:28 09/13/22 14:09 Ondansetron Odt 4 Mg Tab.Rapdis TRANSLINGU 09/13/22 13:29 4 mg ONCE ONE Administration <MARTELL Bhandari - Last Filed: 09/13/22 11:32> Medications Administered Discontinued Medications Generic Name Dose Route Start Last Admin Trade Name Freq PRN Reason Stop Dose Admin Acetaminophen 975 mg 09/13/22 13:28 09/13/22 14:09 Acetaminophen 325 Mg Tablet PO 09/13/22 13:29 975 mg ONCE ONE Administration Morphine Sulfate 4 mg 09/13/22 13:28 09/13/22 14:08 Morphine Sulfate 4 Mg/Ml Cartridge IM 09/13/22 13:29 4 mg ONCE ONE Administration Protocol Ondansetron HCl 4 mg 09/13/22 13:28 09/13/22 14:09 Ondansetron Odt 4 Mg Tab.Rapdis TRANSLINGU 09/13/22 13:29 4 mg ONCE ONE Administration <Carlos Esaton MD - Last Filed: 09/13/22 15:23> Medical Decision Making Medical Decision Making MDM Narrative: 72-year-old female presents with neck pain. Initially was noted to be headache however, the pain is actually in the neck area. On exam she has bilateral paraspinous tenderness. Suspect muscular spasms. I doubt acute traumatic injury as there have been no falls or trauma. She has no radicular symptoms to suggest acute disc disease. There certainly could be a component of some stenosis. Will order a CT scan of the neck to rule out her ID of differentials. <Carlos Easton MD - Last Filed: 09/13/22 15:23> Differential Diagnosis Differential Diagnoses: The differential diagnosis associated with the presentation includes (Neck pain, spasm, strain, sprain, spinal stenosis, radiculopathy) <Carlos Easotn MD - Last Filed: 09/13/22 15:23> Acute severe neck pain <Carlos Easton MD - Last Filed: 09/13/22 15:23> Admission/Observation Consideration of admission/observation: Escalation of care including admission/observation considered <Carlos Easton MD - Last Filed: 09/13/22 15:23> Lab Data MDM Lab Attestation statement: I reviewed the patient's lab results. <Carlos Easton MD - Last Filed: 09/13/22 15:23> Result Diagrams: 09/13/22 11:45 09/13/22 11:45 <MARTELL Bhandari - Last Filed: 09/13/22 11:32> Labs: Lab Results 09/13/22 09/13/22 Range/Units 11:45 11:45 WBC 7.5 (4.8-10.8) X10*3/uL RBC 4.34 (4.20-5.50) X10*6/uL Hgb 12.5 (12.0-16.0) g/dl Hct 39.3 (37.0-47.0) % MCV 90.6 (80.0-98.0) fL MCH 28.8 (27.0-33.0) pg MCHC 31.8 (31.0-35.0) g/dl RDW 14.5 (11.0-16.0) % Plt Count 309 (160-400) X10*3/uL MPV 9.6 (9.4-12.3) fL Immature Gran % (Auto) 0.3 (0.0-0.4) % Neut % (Auto) 57.9 (45-73) % Lymph % (Auto) 30.0 (20-40) % [place] % (Auto) 7.5 (2-11) % Eos % (Auto) 3.9 (0-4) % Baso % (Auto) 0.4 (0-2) % Lymph # (Auto) 2.3 (1.2-4.9) X10*3/uL [place] # (Auto) 0.6 (0.1-1.2) X10*3/uL Eos # (Auto) 0.3 (0.0-0.4) X10*3/uL Baso # (Auto) 0.0 (0.0-0.2) X10*3/uL Abs Immat Gran (auto) 0.02 (0.00-0.03) X10*3/uL Absolute Neuts (auto) 4.3 (2.0-8.3) x10*3/uL Absolute Nucleated RBC 0.000 (0.0-0.012) X10*3/uL Nucleated RBC % (auto) 0.0 (0.0-0.2) /100WBC Sodium 140 (135-145) mmol/L Potassium 4.8 (3.3-5.1) mmol/L Chloride 105 (96-108) mmol/L Carbon Dioxide 27 (22-29) mmol/L Anion Gap 13 (12-20) BUN 20 H (9-16) mg/dL Creatinine 1.23 (0.5-1.4) mg/dL Estim Creat Clear Calc 33.5 Estimated GFR 43 Random Glucose 118 H (60-115) mg/dL Calcium 9.1 D (8.4-10.2) mg/dL Magnesium 2.4 (1.6-2.6) mg/dL Total Bilirubin 0.3 (0.0-1.0) mg/dL Direct Bilirubin 0.1 (0.0-0.5) mg/dL AST 20 (5-31) U/L ALT 22 (0-31) U/L Alkaline Phosphatase 76 (39-117) U/L Total Protein 6.9 (6.5-8.0) g/dL Albumin 4.0 (3.5-5.0) g/dL <MARTELL Bhandari - Last Filed: 09/13/22 11:32> Lab Results 09/13/22 09/13/22 Range/Units 11:45 11:45 WBC 7.5 (4.8-10.8) X10*3/uL RBC 4.34 (4.20-5.50) X10*6/uL Hgb 12.5 (12.0-16.0) g/dl Hct 39.3 (37.0-47.0) % MCV 90.6 (80.0-98.0) fL MCH 28.8 (27.0-33.0) pg MCHC 31.8 (31.0-35.0) g/dl RDW 14.5 (11.0-16.0) % Plt Count 309 (160-400) X10*3/uL MPV 9.6 (9.4-12.3) fL Immature Gran % (Auto) 0.3 (0.0-0.4) % Neut % (Auto) 57.9 (45-73) % Lymph % (Auto) 30.0 (20-40) % [place] % (Auto) 7.5 (2-11) % Eos % (Auto) 3.9 (0-4) % Baso % (Auto) 0.4 (0-2) % Lymph # (Auto) 2.3 (1.2-4.9) X10*3/uL [place] # (Auto) 0.6 (0.1-1.2) X10*3/uL Eos # (Auto) 0.3 (0.0-0.4) X10*3/uL Baso # (Auto) 0.0 (0.0-0.2) X10*3/uL Abs Immat Gran (auto) 0.02 (0.00-0.03) X10*3/uL Absolute Neuts (auto) 4.3 (2.0-8.3) x10*3/uL Absolute Nucleated RBC 0.000 (0.0-0.012) X10*3/uL Nucleated RBC % (auto) 0.0 (0.0-0.2) /100WBC Sodium 140 (135-145) mmol/L Potassium 4.8 (3.3-5.1) mmol/L Chloride 105 (96-108) mmol/L Carbon Dioxide 27 (22-29) mmol/L Anion Gap 13 (12-20) BUN 20 H (9-16) mg/dL Creatinine 1.23 (0.5-1.4) mg/dL Estim Creat Clear Calc 33.5 Estimated GFR 43 Random Glucose 118 H (60-115) mg/dL Calcium 9.1 D (8.4-10.2) mg/dL Magnesium 2.4 (1.6-2.6) mg/dL Total Bilirubin 0.3 (0.0-1.0) mg/dL Direct Bilirubin 0.1 (0.0-0.5) mg/dL AST 20 (5-31) U/L ALT 22 (0-31) U/L Alkaline Phosphatase 76 (39-117) U/L Total Protein 6.9 (6.5-8.0) g/dL Albumin 4.0 (3.5-5.0) g/dL <Carlos Easton MD - Last Filed: 09/13/22 15:23> Independent Interpretation I performed an independent interpretation of an: EKG (Normal sinus rhythm heart rate 85, left axis deviation, nonspecific T-wave changes, normal intervals, no acute ST elevations depressions) and CT Scan (Head NAD) <Carlos Easton MD - Last Filed: 09/13/22 15:23> Radiology Impression Discussion of test interpretation with radiology: I have reviewed the radiologist's reading. ( CT/CT head/brain wo IV con IMPRESSION: No acute intracranial pathology compared to the prior head CT from 03/26/2022. Chronic moderate parenchymal volume loss and chronic changes of moderate microangiopathy affecting the supratentorial white matter. Dictated By:Manuel Logan) <Carlos Easton MD - Last Filed: 09/13/22 15:23> Radiologist Impression: CT/CT cervical spine wo IV con IMPRESSION: No specific cause of acute onset of neck pain is identified. The degenerative changes within the spine remain similar in appearance compared to 04/18/2019. There has been no change in degree of mild spinal canal stenosis at C5-C6 and C6-C7 or in the multilevel neural foraminal stenosis as seen on the CT cervical spine from 04/18/2019 and MRI cervical spine from 09/01/2021.? ? ? Dictated By: Chance Logan MD Signed By: <Electronically signed by Chance Logan MD in [place]> 09/13/22 145 <Carlos Easton MD - Last Filed: 09/13/22 15:23> Independent Historian Clinical information obtained from an independent historian. History obtained from or confirmed by: Other (Daughter) <Carlos Easton MD - Last Filed: 09/13/22 15:23> Tests considered The following testing was considered but not selected: MRI <Carlos Easton MD - Last Filed: 09/13/22 15:23> Prescription Management I considered prescription management with: Pain Medication <Carlos Easton MD - Last Filed: 09/13/22 15:23> Chronic Conditions Patient?s care impacted by: Diabetes <Carlos Easton MD - Last Filed: 09/13/22 15:23> Discharge Plan Discharge Clinical Impression: Acute neck pain, Spinal stenosis <MARTELL Bhandari - Last Filed: 09/13/22 11:32> Instructions: Cervical Spinal Stenosis (ED), Acute Neck Pain (ED) <MARTELL Bhandari - Last Filed: 09/13/22 11:32> Additional Instructions: For pain: Meloxicam 7.5 mg daily for 2 weeks Tylenol 1000 mg every 6 hours as needed for additional pain relief Cyclobenzaprine 5 mg three times daily as needed for muscle spasm, may cause drowsiness Oxycodone 5 mg 2-3 times daily as needed for severe pain, may cause drowsiness Lidoderm patch daily to affected areas. Over the counter capsaicin cream two to three times daily needed <MARTELL Bhandari - Last Filed: 09/13/22 11:32> Prescriptions: New meloxicam 7.5 mg tablet 7.5 mg PO DAILY Qty: 14 0RF cyclobenzaprine 5 mg tablet 10 mg PO TID PRN (Reason: muscle spasm) Qty: 14 0RF oxycodone 5 mg tablet 5 mg PO TID PRN (Reason: pain) Qty: 10 0RF Rx Instructions: Partial Fill upon patient request. lidocaine [Lidoderm] 5 % adhesive patch,medicated 2 patch topical DAILY Qty: 30 0RF Rx Instructions: leave on most painful area for up to 12 hrs No Action (DME) blood-glucose meter [FreeStyle Lite Meter] Kit See Rx Instructions .ROUTE .MEDSUPPLY Qty: 1 0RF Rx Instructions: As directed atorvastatin 20 mg tablet 20 mg PO BEDTIME Qty: 90 1RF metoprolol tartrate 50 mg tablet 50 mg PO BID Qty: 180 2RF trazodone 100 mg tablet 200 mg PO BEDTIME 90 Days Qty: 180 1RF albuterol sulfate 2.5 mg /3 mL (0.083 %) solution for nebulization 2.5 mg inhalation Q6H PRN (Reason: for wheezing) Qty: 150 1RF amlodipine 10 mg tablet 10 mg PO DAILY 90 Days Qty: 90 1RF mirtazapine [Remeron] 15 mg tablet 15 mg PO BEDTIME 30 Days Qty: 30 3RF oxycodone 10 mg tablet 10 mg PO Q8H 28 Days Qty: 84 0RF Rx Instructions: Cancer related pain- loperamide 2 mg capsule 4 mg PO Q8H PRN (Reason: loose stool) 30 Days Qty: 180 3RF dicyclomine 10 mg capsule 20 mg PO QID 30 Days Qty: 240 3RF (DME) Briefs, Adult-Extra Large Misc See Rx Instructions .Route Qty: 200 3RF Rx Instructions: As directed (DME) incontinence pad, liner, disp Pad See Rx Instructions .Route Qty: 400 0RF Rx Instructions: As directed miscellaneous medical supply [facility] 1 ea miscellaneous DAILY 90 Days Qty: 200 3RF cholecalciferol (vitamin D3) [Vitamin D3] 50 mcg (2,000 unit) Tablet 50 mcg PO DAILY Qty: 30 4RF tamoxifen 20 mg Tablet 20 mg PO DAILY Qty: 90 4RF citalopram 20 mg tablet 1 tab PO DAILY penicillin V potassium 250 mg tablet 250 mg PO BID Qty: 60 0RF Rx Instructions: Please start after completing Augmentin prescription (DME) lancets [FreeStyle Lancets] 28 gauge misc See Rx Instructions .ROUTE .MEDSUPPLY Qty: 100 3RF Rx Instructions: As directed (DME) FreeStyle Lite Strips Strip See Rx Instructions .ROUTE .MEDSUPPLY Qty: 100 3RF Rx Instructions: As directed omeprazole 20 mg capsule,delayed release(DR/EC) 20 mg PO DAILY 90 Days Qty: 90 1RF albuterol sulfate [Ventolin HFA] 90 mcg/actuation HFA aerosol inhaler 1 puff inhalation QID 30 Days Qty: 8.5 6RF (DME) Blood Pressure Cuff Misc See Rx Instructions .ROUTE .MEDSUPPLY Qty: 1 0RF Rx Instructions: As directed acetaminophen 325 mg tablet 325 mg PO Q6H gabapentin 800 mg tablet 800 mg PO DAILY amitriptyline 10 mg tablet 20 - 30 mg PO BEDTIME 30 Days Qty: 90 2RF <MARTELL Bhandari - Last Filed: 09/13/22 11:32> Referrals: Milan Mcgraw PA-C [Primary Care Provider] - 5 days <MARTELL Bhandari - Last Filed: 09/13/22 11:32>
[2022-09-13 11:28] VITALS: BP 174/93; PULSE 86; RESP 18; TEMP 36.6; O2SAT 98; BMI 38.5
--- NOTE | 2022-09-13 11:30 | ECG_ITS ---
Test Reason : lightheaded Blood Pressure : / mmHG Vent. Rate : 085 BPM Atrial Rate : 085 BPM P-R Int : 132 ms QRS Dur : 080 ms QT Int : 384 ms P-R-T Axes : 021 -32 -03 degrees QTc Int : 456 ms Normal sinus rhythm Left axis deviation Abnormal ECG When compared with ECG of 02-MAR-2022 11:05, Nonspecific T wave abnormality no longer evident in Anterior leads Referred By: Virginie Dasilva Electronically Signed By:AVE JIMENEZ
[2022-09-13 11:48] LABS: MANUAL DIFF FLAG NO
[2022-09-13 11:51] LABS: Basophils Percent Auto 0.4 % (0-2); Eosinophils Absolute Auto 0.3 X10*3/uL (0.0-0.4); Eosinophils Percent Auto 3.9 % (0-4); Hematocrit 39.3 % (37.0-47.0); Hemoglobin 12.5 g/dl (12.0-16.0); Imm Gran Abs Auto 0.02 X10*3/uL (0.00-0.03); Imm Gran Pct Auto 0.3 % (0.0-0.4); Lymphocytes Absolute Auto 2.3 X10*3/uL (1.2-4.9); Mean Corpuscular HGB Conc 31.8 g/dl (31.0-35.0); Mean Corpuscular Hemoglobin 28.8 pg (27.0-33.0); Mean Corpuscular Volume 90.6 fL (80.0-98.0); Mean Platelet Volume 9.6 fL (9.4-12.3); Monocytes Absolute Auto 0.6 X10*3/uL (0.1-1.2); Monocytes Percent Auto 7.5 % (2-11); Neutrophils Absolute Auto 4.3 x10*3/uL (2.0-8.3); Neutrophils Percent Auto 57.9 % (45-73); Platelet Count 309 X10*3/uL (160-400); Red Blood Count 4.34 X10*6/uL (4.20-5.50); Red Cell Distribution Width 14.5 % (11.0-16.0); White Blood Count 7.5 X10*3/uL (4.8-10.8)
[2022-09-13 12:14] LABS: Alanine Aminotransferase 22 U/L (0-31); Alkaline Phosphatase 76 U/L (39-117); Anion Gap 13 (12-20); Aspartate Amino Transferase 20 U/L (5-31); Bilirubin Direct 0.1 mg/dL (0.0-0.5); Bilirubin Total 0.3 mg/dL (0.0-1.0); Blood Urea Nitrogen 20 mg/dL (9-16); Calcium 9.1 mg/dL (8.4-10.2); Carbon Dioxide 27 mmol/L (22-29); Chloride 105 mmol/L (96-108); Creatinine Clr Calc Pharmacy 33.5; Estimated Glomerular Filt Rate 43; Glucose Random 118 mg/dL (60-115); Magnesium 2.4 mg/dL (1.6-2.6); Potassium 4.8 mmol/L (3.3-5.1); Sodium 140 mmol/L (135-145); Total Protein 6.9 g/dL (6.5-8.0)
[2022-09-13] MEDS: Morphine Sulfate 4 MG/ML CARTRIDGE IM (14:08)
[2022-09-13] MEDS: Ondansetron ODT 4 MG TAB.RAPDIS TRANSLINGU (14:09)
[2022-09-13] MEDS: Acetaminophen 325 MG TABLET 975 MG PO (14:09)
[2022-09-13 14:13] VITALS: BP 169/94; PULSE 76; RESP 18; TEMP 36.7; O2SAT 97
== END 2022-09-13 15:51 | disposition home or self-care (01) ==
PROVIDERS: Physician Assistant; Emergency Provider Emergency Medicine; PCP Physician Assistant
DX: M54.2 Cervicalgia (principal); M48.02 Spinal stenosis, cervical region
CPT/HCPCS: 36415; 70450; 72125; 80048; 80076; 83735; 85025; 93005; 96372; 99284; 99285; J2270

== ENCOUNTER → 2022-10-11 11:44 | Outpatient (BNVA) | payer OTHER, SELFPAY | PROVIDERS: PCP Physician Assistant; Visit Provider Nurse Practitioner Family | DX: F09 Unspecified mental disorder due to known physiological condition (principal); R44.3 Hallucinations, unspecified; R32 Unspecified urinary incontinence; R35.0 Frequency of micturition | CPT/HCPCS: 99212 ==

== ENCOUNTER 2022-10-22 15:19 | Emergency (ER) | payer OTHER, SELFPAY ==
--- NOTE | ~2022-10-22 | XR_ITS ---
EXAMINATION: XR CHEST CLINICAL INFORMATION: Chest pain. COMPARISON: Chest CT dated 03/02/2022. Chest x-ray dated 09/29/2021. TECHNIQUE: Frontal view of the chest was obtained. FINDINGS: No significant abnormality is noted involving the heart, lungs, mediastinum. Elevation of the right hemidiaphragm, unchanged. Mild degenerative changes of the spine. XR/XR chest 1V IMPRESSION: No acute finding.
[2022-10-22 15:25] VITALS: BP 132/64; PULSE 75; RESP 20; TEMP 36.7; O2SAT 98; BMI 40.1
--- NOTE | 2022-10-22 15:26 | ED_ITS ---
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 Pain was described as constant since yesterday more with movement or trying to touch or palpate the area, pain is involving the whole left side of the chest, patient had a double mastectomy 7 month ago and she has been getting this chest wall pain since after the surgery, patient declined any redness, no hotness, no fever, no chills, no discharge from the chest incision, nothing relieves the pain. Patient decline recent travel or prolonged good immobilization or pain in the lower extremities. No coughing, no dyspnea. Related Data Home Medications Medication Instructions Recorded Confirmed citalopram 20 mg tablet 1 tab PO DAILY 05/05/22 10/17/22 Previous Rx's Medication Instructions Recorded albuterol sulfate 90 mcg/actuation 1 puff inhalation QID 30 days #8.5 05/01/22 aerosol inhaler (Ventolin HFA) grams penicillin V potassium 250 mg 250 mg PO BID #60 tabs 05/11/22 tablet cholecalciferol (vitamin D3) 50 50 mcg PO DAILY #30 tabs 06/01/22 mcg (2,000 unit) tablet (Vitamin D3) atorvastatin 20 mg tablet 20 mg PO BEDTIME #90 tabs 06/09/22 metoprolol tartrate 50 mg tablet 50 mg PO BID #180 tabs 06/09/22 trazodone 100 mg tablet 200 mg PO BEDTIME 90 days #180 tabs 06/10/22 tamoxifen 20 mg tablet 20 mg PO DAILY #90 tabs 06/18/22 albuterol sulfate 2.5 mg/3 mL 2.5 mg (3 mL) inhalation Q6H PRN 07/20/22 (0.083 %) solution for nebulization for wheezing #150 mL amlodipine 10 mg tablet 10 mg PO DAILY 90 days #90 tabs 07/22/22 amitriptyline 10 mg tablet 20 - 30 mg PO BEDTIME 30 days #90 07/30/22 tabs mirtazapine 15 mg tablet (Remeron) 15 mg PO BEDTIME 30 days #30 tabs 07/31/22 dicyclomine 10 mg capsule 20 mg PO QID 30 days #240 caps 08/16/22 loperamide 2 mg capsule 4 mg PO Q8H PRN loose stool 30 08/16/22 days #180 caps miscellaneous medical supply 1 ea miscellaneous DAILY 90 days 08/20/22 #200 ea lidocaine 5 % topical patch 2 patch topical DAILY #30 ea 09/13/22 (Lidoderm) meloxicam 7.5 mg tablet 7.5 mg PO DAILY #14 tabs 09/13/22 omeprazole 20 mg capsule,delayed 20 mg PO DAILY 90 days #90 caps 09/26/22 release acetaminophen 325 mg tablet 325 mg PO Q6H PRN pain 30 days 09/27/22 #120 tabs cyclobenzaprine 5 mg tablet 10 mg PO TID muscle spasm 30 days 09/27/22 #180 tabs oxycodone 10 mg tablet 10 mg PO Q8H pain 28 days #84 tabs 09/27/22 memantine 14 mg capsule 14 mg PO DAILY 7 days #7 ea 10/11/22 sprinkle,extended release 24hr memantine 21 mg capsule 21 mg PO DAILY 7 days #7 ea 10/11/22 sprinkle,extended release 24hr memantine 28 mg capsule 28 mg PO DAILY 30 days #30 ea 10/11/22 sprinkle,extended release 24hr memantine 7 mg capsule 7 mg PO DAILY 7 days #7 ea 10/11/22 sprinkle,extended release 24hr blood sugar diagnostic (FreeStyle #100 ea 10/17/22 Lite Strips) blood-glucose meter (FreeStyle #1 ea 10/17/22 Lite Meter kit) diaper,brief,adult,disposable #200 ea 10/17/22 (Briefs, Adult-Extra Large) gabapentin 800 mg tablet 800 mg PO BID 90 days #180 tabs 10/17/22 incontinence pad, liner, disp #400 ea 10/17/22 lancets 28 gauge (FreeStyle #100 ea 10/17/22 Lancets) miscellaneous medical supply #1 ea 10/17/22 (Blood Pressure Cuff) Allergies Allergy/AdvReac Type Severity Reaction Status Date / Time No Known Allergies Allergy Verified 10/17/22 11:42 [No Known Allergies*] Review of Systems Review of Systems: All other systems are reviewed and are negative Constitutional: Reports as per HPI and Reports no additional constitutional complaints Eyes: Reports as per HPI and Reports no additional eye complaints Reports system reviewed and no additional complaints, except as documented Cardiovascular: Reports as per HPI and Reports no additional cardiovascular complaints Respiratory: Reports as per HPI and Reports no additional respiratory complaints Gastrointestinal: Reports as per HPI and Reports no additional gastrointestinal complaints Genitourinary: Reports no additional female genitourinary complaints Musculoskeletal: Reports no additional musculoskeletal complaints Skin/Breast: Reports system reviewed and no additional complaints, except as docu Psychiatric: Reports no additional psychiatric complaints Endocrine: Reports no additional endocrine complaints Hematologic/Lymphatic: Reports no additional hematologic/lymphatic complaints Allergic/Immunologic: Reports no additional allergic/immunologic complaints Reports system reviewed and no additional complaints, except as documented and Reports Abnormal speech present [facility] Past Medical History Medical History Arthritis Asthma Cellulitis of breast Depression Diabetes 1.5, managed as type 2 GERD (gastroesophageal reflux disease) HTN (hypertension) IBS (irritable bowel syndrome) 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 malignant neoplasm of right breast Seroma Traumatic complete tear of right rotator cuff Surgical History History of bilateral mastectomy (02/19/22) History of colonoscopy History of esophagogastroduodenoscopy (EGD) History of lumbar fusion History of lumpectomy of both breasts History of surgery Hx of appendectomy Hx of blepharoplasty Hx of cholecystectomy S/P bilateral mastectomy S/P [id number] (total abdominal hysterectomy and bilateral salpingo-oophorectomy) Family History Family History Father Heart problem Mother Heart disease Hypertension Colon cancer Epilepsy Maternal Grandmother Esophageal cancer Daughter Breast cancer Brother Lung cancer Sister Breast cancer Sister Breast cancer, Onset Age: 60 Sister COVID Daughter Acute kidney failure Social History Social History Household Members: None Housing: Apartment Are you a primary post acute care registered nurse to a significant other at home: No Do you presently have visiting nurse or other home services: Yes Alcohol intake: current Alcohol intake frequency: a few times a month Patient Tobacco Use Status: Never used Tobacco e-Cigarette/Vaping Use: Never Used Second Hand Smoke Exposure: No Advance Directives: Yes Advance Directives on File: Yes Advance Directives Date on File: 09/26/21 service: No Current occupational status: disabled 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) Hearing needs: No Vision needs: Yes Physical Exam ED Vital Signs: Vital Signs - 24 hr 10/22/22 15:25 10/22/22 18:35 Temperature 98.1 F 97.7 F Pulse Rate 75 73 Respiratory Rate 20 Blood Pressure 132/64 145/72 H Pulse Oximetry 98 96 Oxygen Delivery Method Room Air Room Air BMI result Body Mass Index 40.1 Vital signs have been reviewed as appeared to be correct. Blood pressure normal. Heart rate normal. Respiration rate normal. Temperature normal. Oxygen saturation normal. Appearance: Alert. Oriented X3. No acute distress. Head: Normal external exam. Normocephalic. Atraumatic. No Braswell signs noted. No raccoon eyes noted Eyes: PERRLA. EOMI. Conjunctiva and sclera normal. Eyelids normal. ENT: TM's Normal. Pharynx normal. Uvula midline. Moist mucous membranes. No tr ismus noted. No drooling noted. No muffled voice noted. Neck: Normal inspection. Neck supple. FROM. No adenopathy. Thyroid Normal. No meningeal signs. No neck mass noted. CVS: Normal heart rate and rhythm. Heart sound normal. No murmurs noted. Pulses normal throughout. Respiratory: No respiratory distress. Painless inspiration. Breath sounds normal. No wheezes/rales/rhonchi noted. Bilateral mastectomy that surgical scar appear dry and clean and intact with no discharge or redness or hotness, reproducible tenderness to the left chest wall. No accessory muscle usage noted or decreased air movement noted. Abdomen: Soft and nontender. Bowel sounds normal in all 4 quadrants. No distention noted. No organomegaly noted. No visible injury noted. Back: No CVA tenderness. Full range of motion noted. Skin: Skin warm and dry. Normal skin color. Normal skin turgor. No rashes/lesions/lacerations noted. Extremities: No lower extremity edema. Extremities exhibit normal range of motion. Extremities nontender. Neuro: Oriented X 3. Cranial nerve exam: II-XII are grossly intact No motor deficit. No sensory deficit. Reflexes normal. Course Course Course Narrative: RmE: 72 yold female with presents to the ED for chest pain sine last night radiating left arm. No URI symptoms. labs and EkG ordered. Reevaluation(s) Reevaluation #1: 72-year-old female status post double mastectomy presented with chest wall pain, patient has unremarkable cardiac workup with negative troponin, patient at low risk for PE/DVT based on clinical history with stable vital signs and O2 sat. Patient felt better after was given oxycodone in the emergency department. Slight elevation of BUN/creatinine above baseline patient was instructed to follow-up with PCP for follow-up. Time: 18:32 Medical Decision Making Differential Diagnosis Differential Diagnoses: The differential diagnosis associated with the presentation includes (Chest wall pain, ACS, cellulitis of the chest wall, electrolyte abnormality, severe anemia.) Admission/Observation Consideration of admission/observation: Escalation of care including admission/observation considered Lab Data MDM Lab Attestation statement: I reviewed the patient's lab results. 10/22/22 15:58 10/22/22 15:58 Labs: Lab Results 10/22/22 10/22/22 10/22/22 Range/Units 15:58 15:58 15:58 WBC 8.3 (4.8-10.8) X10*3/uL RBC 4.20 (4.20-5.50) X10*6/uL Hgb 12.4 (12.0-16.0) g/dl Hct 38.3 (37.0-47.0) % MCV 91.2 (80.0-98.0) fL MCH 29.5 (27.0-33.0) pg MCHC 32.4 (31.0-35.0) g/dl RDW 13.8 (11.0-16.0) % Plt Count 311 (160-400) X10*3/uL MPV 10.0 (9.4-12.3) fL Immature Gran % (Auto) 0.2 (0.0-0.4) % Neut % (Auto) 55.8 (45-73) % Lymph % (Auto) 32.1 (20-40) % Clay % (Auto) 7.0 (2-11) % Eos % (Auto) 4.3 H (0-4) % Baso % (Auto) 0.6 (0-2) % Lymph # (Auto) 2.7 (1.2-4.9) X10*3/uL Clay # (Auto) 0.6 (0.1-1.2) X10*3/uL Eos # (Auto) 0.4 (0.0-0.4) X10*3/uL Baso # (Auto) 0.1 (0.0-0.2) X10*3/uL Abs Immat Gran (auto) 0.02 (0.00-0.03) X10*3/uL Absolute Neuts (auto) 4.6 (2.0-8.3) x10*3/uL Absolute Nucleated RBC 0.000 (0.0-0.012) X10*3/uL Nucleated RBC % (auto) 0.0 (0.0-0.2) /100WBC PT 9.9 L (10.0-13.1) SEC INR 0.9 (0.9-1.1) APTT 23.0 L (26.0-36.4) SEC Sodium 138 (135-145) mmol/L Potassium 4.9 (3.3-5.1) mmol/L Chloride 106 (96-108) mmol/L Carbon Dioxide 23 (22-29) mmol/L Anion Gap 14 (12-20) BUN 24 H (9-16) mg/dL Creatinine 1.43 H (0.5-1.4) mg/dL Estim Creat Clear Calc 29.5 Estimated GFR 36 Random Glucose 122 H (60-115) mg/dL Calcium 9.4 (8.4-10.2) mg/dL Total Bilirubin 0.2 (0.0-1.0) mg/dL AST 17 (5-31) U/L ALT 13 (0-31) U/L Alkaline Phosphatase 59 (39-117) U/L Troponin I High Sens (<3.5-17.0) ng/L B-Natriuretic Peptide (<100) pg/mL Total Protein 7.6 (6.5-8.0) g/dL Albumin 4.3 (3.5-5.0) g/dL 10/22/22 10/22/22 Range/Units 15:58 15:58 WBC (4.8-10.8) X10*3/uL RBC (4.20-5.50) X10*6/uL Hgb (12.0-16.0) g/dl Hct (37.0-47.0) % MCV (80.0-98.0) fL MCH (27.0-33.0) pg MCHC (31.0-35.0) g/dl RDW (11.0-16.0) % Plt Count (160-400) X10*3/uL MPV (9.4-12.3) fL Immature Gran % (Auto) (0.0-0.4) % Neut % (Auto) (45-73) % Lymph % (Auto) (20-40) % Clay % (Auto) (2-11) % Eos % (Auto) (0-4) % Baso % (Auto) (0-2) % Lymph # (Auto) (1.2-4.9) X10*3/uL Clay # (Auto) (0.1-1.2) X10*3/uL Eos # (Auto) (0.0-0.4) X10*3/uL Baso # (Auto) (0.0-0.2) X10*3/uL Abs Immat Gran (auto) (0.00-0.03) X10*3/uL Absolute Neuts (auto) (2.0-8.3) x10*3/uL Absolute Nucleated RBC (0.0-0.012) X10*3/uL Nucleated RBC % (auto) (0.0-0.2) /100WBC PT (10.0-13.1) SEC INR (0.9-1.1) APTT (26.0-36.4) SEC Sodium (135-145) mmol/L Potassium (3.3-5.1) mmol/L Chloride (96-108) mmol/L Carbon Dioxide (22-29) mmol/L Anion Gap (12-20) BUN (9-16) mg/dL Creatinine (0.5-1.4) mg/dL Estim Creat Clear Calc Estimated GFR Random Glucose (60-115) mg/dL Calcium (8.4-10.2) mg/dL Total Bilirubin (0.0-1.0) mg/dL AST (5-31) U/L ALT (0-31) U/L Alkaline Phosphatase (39-117) U/L Troponin I High Sens 7.2 (<3.5-17.0) ng/L B-Natriuretic Peptide 69 (<100) pg/mL Total Protein (6.5-8.0) g/dL Albumin (3.5-5.0) g/dL Independent Interpretation I performed an independent interpretation of an: Plain X-Ray (No acute intrathoracic pathology.) Radiology Impression Discussion of test interpretation with radiology: I have reviewed the radiologist's reading. Discharge Plan Discharge Clinical Impression: Acute chest wall pain Patient Disposition: Home, Self-Care Instructions: Chest Pain (ED) Prescriptions: No Action atorvastatin 20 mg tablet 20 mg PO BEDTIME Qty: 90 1RF metoprolol tartrate 50 mg tablet 50 mg PO BID Qty: 180 2RF trazodone 100 mg tablet 200 mg PO BEDTIME 90 Days Qty: 180 1RF albuterol sulfate 2.5 mg /3 mL (0.083 %) solution for nebulization 2.5 mg inhalation Q6H PRN (Reason: for wheezing) Qty: 150 1RF amlodipine 10 mg tablet 10 mg PO DAILY 90 Days Qty: 90 1RF mirtazapine [Remeron] 15 mg tablet 15 mg PO BEDTIME 30 Days Qty: 30 3RF loperamide 2 mg capsule 4 mg PO Q8H PRN (Reason: loose stool) 30 Days Qty: 180 3RF dicyclomine 10 mg capsule 20 mg PO QID 30 Days Qty: 240 3RF miscellaneous medical supply Misc 1 ea miscellaneous DAILY 90 Days Qty: 200 3RF omeprazole 20 mg capsule,delayed release(DR/EC) 20 mg PO DAILY 90 Days Qty: 90 1RF oxycodone 10 mg tablet 10 mg PO Q8H 28 Days Qty: 84 0RF Rx Instructions: Cancer related pain- cyclobenzaprine 5 mg tablet 10 mg PO TID 30 Days Qty: 180 0RF acetaminophen 325 mg tablet 325 mg PO Q6H PRN (Reason: pain) 30 Days Qty: 120 3RF cholecalciferol (vitamin D3) [Vitamin D3] 50 mcg (2,000 unit) Tablet 50 mcg PO DAILY Qty: 30 4RF tamoxifen 20 mg Tablet 20 mg PO DAILY Qty: 90 4RF citalopram 20 mg tablet 1 tab PO DAILY penicillin V potassium 250 mg tablet 250 mg PO BID Qty: 60 0RF Rx Instructions: Please start after completing Augmentin prescription meloxicam 7.5 mg tablet 7.5 mg PO DAILY Qty: 14 0RF lidocaine [Lidoderm] 5 % adhesive patch,medicated 2 patch topical DAILY Qty: 30 0RF Rx Instructions: leave on most painful area for up to 12 hrs albuterol sulfate [Ventolin HFA] 90 mcg/actuation HFA aerosol inhaler 1 puff inhalation QID 30 Days Qty: 8.5 6RF (DME) FreeStyle Lite Strips Strip See Rx Instructions .ROUTE .MEDSUPPLY Qty: 100 3RF Rx Instructions: As directed (DME) blood-glucose meter [FreeStyle Lite Meter] Kit See Rx Instructions .ROUTE .MEDSUPPLY Qty: 1 0RF Rx Instructions: As directed (DME) lancets [FreeStyle Lancets] 28 gauge misc See Rx Instructions .ROUTE .MEDSUPPLY Qty: 100 3RF Rx Instructions: As directed (DME) Blood Pressure Cuff Misc See Rx Instructions .ROUTE .MEDSUPPLY Qty: 1 0RF Rx Instructions: As directed gabapentin 800 mg tablet 800 mg PO BID 90 Days Qty: 180 1RF (DME) incontinence pad, liner, disp Pad See Rx Instructions .Route Qty: 400 0RF Rx Instructions: As directed (DME) Briefs, Adult-Extra Large Misc See Rx Instructions .Route Qty: 200 3RF Rx Instructions: As directed amitriptyline 10 mg tablet 20 - 30 mg PO BEDTIME 30 Days Qty: 90 2RF memantine 21 mg capsule,sprinkle,ER 24hr 21 mg PO DAILY 7 Days Qty: 7 0RF Rx Instructions: then stop and increase to 28mg qd memantine 7 mg capsule,sprinkle,ER 24hr 7 mg PO DAILY 7 Days Qty: 7 0RF Rx Instructions: then stop and increase to 14mg qd memantine 14 mg capsule,sprinkle,ER 24hr 14 mg PO DAILY 7 Days Qty: 7 0RF Rx Instructions: then stop and increase to 21mg qd memantine 28 mg capsule,sprinkle,ER 24hr 28 mg PO DAILY 30 Days Qty: 30 6RF Referrals: Physician,Unknown J [Physician] -
--- NOTE | 2022-10-22 15:27 | ECG_ITS ---
Test Reason : chest pain Blood Pressure : / mmHG Vent. Rate : 070 BPM Atrial Rate : 070 BPM P-R Int : 150 ms QRS Dur : 078 ms QT Int : 428 ms P-R-T Axes : 028 -38 022 degrees QTc Int : 462 ms Normal sinus rhythm Left axis deviation Abnormal ECG When compared with ECG of 13-SEP-2022 11:38, No significant change was found Referred By: Pantera Delacruz Electronically Signed By:RAJI ULLOA MD
[2022-10-22 16:03] LABS: MANUAL DIFF FLAG NO
[2022-10-22 16:05] LABS: Basophils Absolute Auto 0.1 X10*3/uL (0.0-0.2); Basophils Percent Auto 0.6 % (0-2); Eosinophils Absolute Auto 0.4 X10*3/uL (0.0-0.4); Eosinophils Percent Auto 4.3 % (0-4); Hematocrit 38.3 % (37.0-47.0); Hemoglobin 12.4 g/dl (12.0-16.0); Imm Gran Abs Auto 0.02 X10*3/uL (0.00-0.03); Imm Gran Pct Auto 0.2 % (0.0-0.4); Lymphocytes Absolute Auto 2.7 X10*3/uL (1.2-4.9); Lymphocytes Percent Auto 32.1 % (20-40); Mean Corpuscular HGB Conc 32.4 g/dl (31.0-35.0); Mean Corpuscular Hemoglobin 29.5 pg (27.0-33.0); Mean Corpuscular Volume 91.2 fL (80.0-98.0); Monocytes Absolute Auto 0.6 X10*3/uL (0.1-1.2); Neutrophils Absolute Auto 4.6 x10*3/uL (2.0-8.3); Neutrophils Percent Auto 55.8 % (45-73); Platelet Count 311 X10*3/uL (160-400); Red Cell Distribution Width 13.8 % (11.0-16.0); White Blood Count 8.3 X10*3/uL (4.8-10.8)
[2022-10-22 16:24] LABS: Alanine Aminotransferase 13 U/L (0-31); Albumin Level 4.3 g/dL (3.5-5.0); Alkaline Phosphatase 59 U/L (39-117); Anion Gap 14 (12-20); Aspartate Amino Transferase 17 U/L (5-31); Bilirubin Total 0.2 mg/dL (0.0-1.0); Blood Urea Nitrogen 24 mg/dL (9-16); Calcium 9.4 mg/dL (8.4-10.2); Carbon Dioxide 23 mmol/L (22-29); Chloride 106 mmol/L (96-108); Creatinine Clr Calc Pharmacy 29.5; Estimated Glomerular Filt Rate 36; Glucose Random 122 mg/dL (60-115); Potassium 4.9 mmol/L (3.3-5.1); Sodium 138 mmol/L (135-145); Total Protein 7.6 g/dL (6.5-8.0)
[2022-10-22 16:27] LABS: INTERNATIONAL NORM RATIO 0.9 (0.9-1.1); Prothrombin Time 9.9 SEC (10.0-13.1)
[2022-10-22 16:32] LABS: Troponin-I High Sensitivity 7.2 ng/L (<3.5-17.0)
[2022-10-22 16:33] LABS: B Type Natriuretic Peptide 69 pg/mL (<100)
[2022-10-22 18:35] VITALS: BP 145/72; PULSE 73; TEMP 36.5; O2SAT 96
[2022-10-22] MEDS: oxyCODONE HCl Immed Release 5 MG TABLET PO (18:51)
== END 2022-10-22 18:55 | disposition home or self-care (01) ==
PROVIDERS: Physician Assistant; Emergency Provider Emergency Medicine; PCP Physician Assistant
DX: R07.89 Other chest pain (principal); R06.02 Shortness of breath; Z79.899 Other long term (current) drug therapy
CPT/HCPCS: 36415; 71045; 80053; 83880; 84484; 85025; 85610; 85730; 93005; 99284

== ENCOUNTER 2022-12-06 11:26 | Outpatient (REF) | payer OTHER, SELFPAY ==
--- NOTE | ~2022-12-06 | MR_ITS ---
EXAMINATION: MR BRAIN WITHOUT AND WITH CONTRAST CLINICAL INFORMATION: History of breast cancer. Headache. Weakness. COMPARISON: CT head from 09/13/2022. Brain MRI from 04/23/2019. TECHNIQUE: MRI of the brain was obtained using routine sequences without and following the administration of 8.5 mL of Gadavist intravenous contrast. FINDINGS: No focal restricted diffusion is demonstrated to suggest acute or subacute cerebral ischemia. No evidence of acute or chronic hemorrhagic products on heme-sensitive imaging. Chronic lacunar infarcts within the bilateral cerebellar hemispheres. Scattered and partially confluent periventricular, deep white matter, and brainstem T2 FLAIR hyperintensities consistent with moderate underlying microangiopathy. Proportional prominence of the ventricles and sulcal spaces without evidence of obstructive hydrocephalus. No abnormal mass effect. No midline shift. The sella turcica is moderately expanded with flattening of the pituitary gland. Normal positioning of the cerebellar tonsils. Normal arterial and venous vascular flow voids are present. No abnormal contrast enhancement. Normal, homogeneous marrow signal. Mild mucosal thickening of the paranasal sinuses. Small left-sided mastoid effusion. No signal abnormalities within the right-sided mastoid. MR/MR head/brain wo/w con IMPRESSION: 1. No acute intracranial abnormalities. No abnormal intracranial enhancement. 2. Moderate underlying microangiopathy and generalized cerebral volume loss. Chronic lacunar infarcts of the cerebellum.
== END 2022-12-06 11:27 | disposition home or self-care (01) ==
LOC: HO.MRI 11:26
PROVIDERS: PCP Physician Assistant; Visit Provider Nurse Practitioner Family
DX: F09 Unspecified mental disorder due to known physiological condition (principal); R44.3 Hallucinations, unspecified; Z85.3 Personal history of malignant neoplasm of breast
CPT/HCPCS: 70553; A9585

== ENCOUNTER 2022-12-24 11:40 | Outpatient (AMB) | payer OTHER, SELFPAY ==
--- OUTSIDE RECORDS SUMMARY | 2022-12-24 11:42 | XMS_ITS ---
Author Name Chinedu Jaramillo Address [address] [place] [address] Organization Chinedu Jaramillo III, MD Address [address] [place] [address] Care Team Providers Care Dietetics Director Name Role Phone Chinedu Jaramillo [facility] [phone] PROBLEMS Type Condition ICD9-CM Code [id number] Code Onset Dates Condition Status SNOMED Code Problem De Quervain's disease (radial styloid tenosynovitis) M65.4 Active 14409561 Problem Malignant neoplasm of upper-outer quadrant of right female breast C50.411 Active 389214552 Problem Essential hypertension I10 Active 39179921 Problem Hyperlipidemia, unspecified E78.5 Active 65617786 Problem DJD (degenerative joint disease) M19.90 Active 913540268 Problem Osteoporosis M81.0 Active 58823141 Problem Depressive disorder, not elsewhere classified F32.9 Active 57070361 Problem Lumbago with sciatica, left side M54.42 Active 72215940 Problem Unspecified asthma, uncomplicated J45.909 Active 066911536 Problem Angiomyolipoma D17.9 Active 97651042 Problem Acute low back pain due to trauma M54.5 Active 039196103 Problem Malignant neoplasm of unspecified site of left female breast C50.912 Active 232884038 Problem Obesity (BMI 30-39.9) E66.9 Active 112927848 ALLERGIES No Known Allergies ENCOUNTERS Encounter Location Date Diagnosis Chinedu Jaramillo III, MD [address] [place] [address] [place] [address] September, Hyperlipidemia, unspecified E78.5 ; Essential hypertension I10 ; Depressive disorder, not elsewhere classified F32.9 ; Unspecified asthma, uncomplicated J45.909 ; Malignant neoplasm of upper-outer quadrant of right female breast C50.411 ; Malignant neoplasm of unspecified site of left female breast C50.912 ; Obesity (BMI 30-39.9) E66.9 and Osteoporosis M81.0 Chinedu Jaramillo III, MD [address] [place] [address] [place] [address] Jul, Hyperlipidemia, unspecified E78.5 ; Essential hypertension I10 ; Depressive disorder, not elsewhere classified F32.9 ; Unspecified asthma, uncomplicated J45.909 ; Malignant neoplasm of upper-outer quadrant of right female breast C50.411 ; Malignant neoplasm of unspecified site of left female breast C50.912 ; Obesity (BMI 30-39.9) E66.9 and Osteoporosis M81.0 Chinedu Jaramillo III, MD [address] [place] [address] [place] [address] Apr, Malignant neoplasm of upper-outer quadrant of right female breast C50.411 ; Malignant neoplasm of unspecified site of left female breast C50.912 ; Hyperlipidemia, unspecified E78.5 ; Essential hypertension I10 ; Depressive disorder, not elsewhere classified F32.9 ; Obesity (BMI 30-39.9) E66.9 and Osteoporosis M81.0 Chinedu Jarmaillo III, MD [address] [place] [address] [place] [address] Mar, Chinedu Jaramillo III, MD [address] [place] [address] [place] [address] Mar, Chinedu Jaramillo III, MD [address] [place] [address] [place] [address] Feb, Malignant neoplasm of upper-outer quadrant of right female breast C50.411 ; Malignant neoplasm of unspecified site of left female breast C50.912 ; Unspecified asthma, uncomplicated J45.909 ; Depressive disorder, not elsewhere classified F32.9 ; Essential hypertension I10 ; Hyperlipidemia, unspecified E78.5 ; Obesity (BMI 30-39.9) E66.9 and Osteoporosis M81.0 Chinedu Jaramillo III, MD [address] [place] [address] [place] [address] Feb, Malignant neoplasm of upper-outer quadrant of right female breast C50.411 ; Malignant neoplasm of unspecified site of left female breast C50.912 ; Acute low back pain due to trauma M54.5 ; Angiomyolipoma D17.9 ; Hyperlipidemia, unspecified E78.5 ; Essential hypertension I10 ; Depressive disorder, not elsewhere classified F32.9 ; Unspecified asthma, uncomplicated J45.909 ; De Quervain's disease (radial styloid tenosynovitis) M65.4 ; Obesity (BMI 30-39.9) E66.9 and Osteoporosis M81.0 Chinedu Jaramillo III, MD [address] [place] [address] [place] [address] Aug, Malignant neoplasm of upper-outer quadrant of right female breast C50.411 ; Malignant neoplasm of unspecified site of left female breast C50.912 ; Lumbago with sciatica, left side M54.42 ; Other chronic pain G89.29 ; Unspecified asthma, uncomplicated J45.909 ; Depressive disorder, not elsewhere classified F32.9 and Essential hypertension I10 Chinedu Jaramillo III, MD [address] [place] [address] [place] [address] Jun, Malignant neoplasm of upper-outer quadrant of right female breast C50.411 ; Malignant neoplasm of unspecified site of left female breast C50.912 ; Obesity (BMI 30-39.9) E66.9 ; Osteoporosis M81.0 ; Chronic obstructive pulmonary disease, unspecified J44.9 ; Depressive disorder, not elsewhere classified F32.9 and Essential hypertension I10 Chinedu Jaramillo III, MD [address] [place] [address] [place] [address] Nov, Chinedu Jaramillo III, MD [address] [place] [address] [place] [address] Nov, Malignant neoplasm of upper-outer quadrant of right female breast C50.411 ; Malignant neoplasm of unspecified site of left female breast C50.912 ; Hyperlipidemia, unspecified E78.5 ; Essential hypertension I10 ; Depressive disorder, not elsewhere classified F32.9 ; Unspecified asthma, uncomplicated J45.909 ; De Quervain's disease (radial styloid tenosynovitis) M65.4 ; Chronic obstructive pulmonary disease, unspecified J44.9 ; Obesity (BMI 30-39.9) E66.9 and Osteoporosis M81.0 Chinedu Jaramillo III, MD [address] [place] [address] [place] [address] September, Malignant neoplasm of unspecified site of left female breast C50.912 ; Osteoporosis M81.0 ; Hyperlipidemia, unspecified E78.5 ; Essential hypertension I10 ; Depressive disorder, not elsewhere classified F32.9 and Unspecified asthma, uncomplicated J45.909 Chinedu Jaramillo III, MD [address] [place] [address] [place] [address] Dec, Malignant neoplasm of unspecified site of left female breast C50.912 Chinedu Jaramillo III, MD [address] [place] [address] [place] [address] Dec, Malignant neoplasm of upper-outer quadrant of right female breast C50.411 and Malignant neoplasm of unspecified site of left female breast C50.912 Chinedu Jaramillo III, MD [address] [place] [address] [place] [address] Jul, Malignant neoplasm of upper-outer quadrant of right female breast C50.411 ; Malignant neoplasm of unspecified site of left female breast C50.912 ; Hyperlipidemia, unspecified E78.5 ; Essential hypertension I10 and Depressive disorder, not elsewhere classified F32.9 Chinedu Jaramillo III, MD [address] [place] [address] [place] [address] May, Breast calcifications R92.1 Chinedu Jaramillo III, MD [address] [place] [address] [place] [address] Feb, Malignant neoplasm of upper-outer quadrant of right female breast C50.411 ; Malignant neoplasm of unspecified site of left female breast C50.912 ; Depressive disorder, not elsewhere classified F32.9 ; Essential hypertension I10 ; Hyperlipidemia, unspecified E78.5 ; Acute low back pain due to trauma M54.5 ; Unspecified asthma, uncomplicated J45.909 ; Chronic obstructive pulmonary disease, unspecified J44.9 and Obesity (BMI 30-39.9) E66.9 Chinedu Jaramillo III, MD [address] [place] [address] [place] [address] Oct, Malignant neoplasm of upper-outer quadrant of right female breast C50.411 ; Malignant neoplasm of unspecified site of left female breast C50.912 ; Angiomyolipoma D17.9 ; Acute low back pain due to trauma M54.5 ; Hyperlipidemia, unspecified E78.5 ; Essential hypertension I10 ; Depressive disorder, not elsewhere classified F32.9 ; Unspecified asthma, uncomplicated J45.909 ; De Quervain's disease (radial styloid tenosynovitis) M65.4 ; Chronic obstructive pulmonary disease, unspecified J44.9 ; Obesity (BMI 30-39.9) E66.9 and DJD (degenerative joint disease) M19.90 Chinedu Jaramillo III, MD [address] [place] [address] [place] [address] Jun, Chinedu Jaramillo III, MD [address] [place] [address] [place] [address] Jun, Malignant neoplasm of upper-outer quadrant of right female breast C50.411 ; Urinary tract infection without hematuria, site unspecified N39.0 ; Essential hypertension I10 ; Depressive disorder, not elsewhere classified F32.9 ; Unspecified asthma, uncomplicated J45.909 and Obesity (BMI 30-39.9) E66.9 Chinedu Jaramillo III, MD [address] [place] [address] [place] [address] Feb, Malignant neoplasm of upper-outer quadrant of right female breast C50.411 ; Malignant neoplasm of unspecified site of left female breast C50.912 ; Depressive disorder, not elsewhere classified F32.9 ; Unspecified asthma, uncomplicated J45.909 and Chronic obstructive pulmonary disease, unspecified J44.9 Chinedu Jaramillo III, MD [address] [place] [address] [place] [address] Nov, Malignant neoplasm of upper-outer quadrant of right female breast C50.411 ; Malignant neoplasm of unspecified site of left female breast C50.912 ; Acute low back pain due to trauma M54.5 ; Depressive disorder, not elsewhere classified F32.9 ; Unspecified asthma, uncomplicated J45.909 ; Chronic obstructive pulmonary disease, unspecified J44.9 and Obesity (BMI 30-39.9) E66.9 Chinedu Jaramillo III, MD [address] [place] [address] [place] [address] Nov, Chinedu Jaramillo III, MD [address] [place] [address] [place] [address] September, Malignant neoplasm of upper-outer quadrant of right female breast C50.411 and Malignant neoplasm of unspecified site of left female breast C50.912 Chinedu Jaramillo III, MD [address] [place] [address] [place] [address] Apr, Malignant neoplasm of upper-outer quadrant of right female breast C50.411 ; Malignant neoplasm of unspecified site of left female breast C50.912 ; Obesity, unspecified E66.9 ; Essential hypertension I10 ; Hyperlipidemia, unspecified E78.5 ; Depressive disorder, not elsewhere classified F32.9 and Chronic obstructive pulmonary disease, unspecified J44.9 Chinedu Jaramillo III, MD [address] [place] [address] [place] [address] Dec, Chinedu Jaramillo III, MD [address] [place] [address] [place] [address] Oct, Malignant neoplasm of upper-outer quadrant of right female breast C50.411 ; Malignant neoplasm of unspecified site of left female breast C50.912 ; Obesity, unspecified E66.9 and Acute low back pain due to trauma M54.5 Chinedu Jaramillo III, MD [address] [place] [address] [place] [address] Jun, Malignant neoplasm of upper-outer quadrant of right female breast C50.411 ; Malignant neoplasm of unspecified site of left female breast C50.912 and Obesity, unspecified E66.9 Chinedu Jaramillo III, MD [address] [place] [address] [place] [address] Feb, Malignant neoplasm of upper-outer quadrant of right female breast C50.411 ; Chronic obstructive pulmonary disease, unspecified J44.9 ; Obesity, unspecified E66.9 and Malignant neoplasm of unspecified site of left female breast C50.912 Chinedu Jaramillo III, MD [address] [place] [address] [place] [address] Oct, Chinedu Jaramillo III, MD [address] [place] [address] [place] [address] Aug, Chinedu Jaramillo III, MD [address] [place] [address] [place] [address] Aug, Malignant neoplasm of upper-outer quadrant of right female breast C50.411 Chinedu Jaramillo III, MD [address] [place] [address] [place] [address] May, Malignant neoplasm of upper-outer quadrant of right female breast C50.411 ; Obesity, unspecified E66.9 and Chronic obstructive pulmonary disease, unspecified J44.9 Chinedu Jaramillo III, MD [address] [place] [address] [place] [address] Oct, Breast cancer 174.9 and Breast density 611.79 Chinedu Jaramillo III, MD [address] [place] [address] [place] [address] Dec, Chinedu Jaramillo III, MD [address] [place] [address] [place] [address] Dec, Breast cancer 174.9 and Obesity 278.00 Chinedu Jaramillo III, MD [address] [place] [address] [place] [address] Jun, Breast cancer 174.9 and Obesity 278.00 Chinedu Jaramillo III, MD [address] [place] [address] [place] [address] Dec, Chinedu Jaramillo III, MD [address] [place] [address] [place] [address] Aug, Chinedu Jaramillo III, MD [address] [place] [address] [place] [address] Jul, Chinedu Jaramillo III, MD [address] [place] [address] [place] [address] Apr, Breast cancer 174.9 ; Depression 311 ; 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 ; HTN (hypertension) 401.9 ; COPD (chronic obstructive pulmonary disease) 496 and Hyperlipemia 272.4 Chinedu Jaramillo III, MD [address] [place] [address] [place] [address] Apr, Chinedu Jaramillo III, MD [address] [place] [address] [place] [address] Mar, Breast cancer 174.9 Chinedu Jaramillo III, MD [address] [place] [address] [place] [address] Feb, Chinedu Jaramillo III, MD [address] [place] [address] [place] [address] Feb, Breast cancer 174.9 ; Depression 311 ; 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 ; HTN (hypertension) 401.9 ; COPD (chronic obstructive pulmonary disease) 496 ; Hyperlipemia 272.4 and Angiomyolipoma of kidney 223.0 Chinedu Jaramillo III, MD [address] [place] [address] Feb, Chinedu Jaramillo III, MD [address] [place] [address] Jan, Hydronephrosis 591 and Breast cancer 174.9 Chinedu Jaramillo III, MD [address] [place] [address] [place] [address] Jan, Chinedu Jaramillo III, MD [address] [place] [address] [place] [address] Jan, Breast cancer 174.9 and Breast pain 611.71 Chineud Jaramillo III, MD [address] [place] [address] [place] [address] Jan, Chinedu Jaramillo III, MD [address] [place] [address] [place] [address] Jan, Chinedu Jaramillo III, MD [address] [place] [address] [place] [address] Dec, Chinedu Jaramillo III, MD [address] [place] [address] [place] [address] Dec, Breast cancer 174.9 Chinedu Jaramillo III, MD [address] [place] [address] [place] [address] Dec, Chinedu Jaramillo III, MD [address] [place] [address] [place] [address] Nov, Chinedu Jaramillo III, MD [address] [place] [address] [place] [address] September, Chinedu Jaramillo III, MD [address] [place] [address] [place] [address] September, Chinedu Jaramillo III, MD [address] [place] [address] [place] [address] Jun, Chinedu Jaramillo III, MD [address] [place] [address] [place] [address] Jun, Chinedu Jaramillo III, MD [address] [place] [address] [address] [place] [address] May, Chinedu Jaramillo III, MD [address] [place] [address] [address] [place] [address] Dec, IMMUNIZATIONS Vaccine Route Administration Date Status Influenza Unknown Dec 25, 2014 Administered SOCIAL HISTORY Qualifiers Date Never Smoker REASON FOR REFERRAL FUNCTIONAL STATUS PLAN OF CARE Activity Details VITAL SIGNS Height 59 in 2022-10-24 Height 59 in 2022-08-22 Height 59 in 2022-05-24 Height 59 in 2022-03-23 Height 59 in 2022-02-27 Height 59 in 2021-09-22 Height 59 in 2020-12-16 Height 59 in 2020-09-30 Height 59 in 2020-01-15 Height 59 in 2019-07-27 Height 59 in 2019-03-24 Height 59 in 2018-11-19 Height 59 in 2018-07-22 Height 59 in 2018-03-18 Height 59 in 2017-12-17 Height 59 in 2017-05-15 Height 59 in 2016-11-13 Height 59 in 2016-06-28 Height 59 in 2016-02-28 Height 59 in 2015-06-06 Height 59 in 2014-01-18 Height 59 in 2013-07-21 Height N/A in 2012-05-02 Height N/A in 2012-03-17 Height N/A in 2012-02-19 Height N/A in 2012-02-08 Height N/A in 2012-01-11 Height 59 in 2011-07-18 Weight 192 lbs 2022-10-24 Weight 187 lbs 2022-08-22 Weight 171 lbs 2022-05-24 Weight 173 lbs 2022-03-23 Weight 179 lbs 2022-02-27 Weight 183 lbs 2021-09-22 Weight 183 lbs 2020-12-16 Weight 178 lbs 2020-09-30 Weight 173 lbs 2020-01-15 Weight 169 lbs 2019-07-27 Weight 181 lbs 2019-03-24 Weight 179 lbs 2018-11-19 Weight 176 lbs 2018-07-22 Weight 179 lbs 2018-03-18 Weight 180 lbs 2017-12-17 Weight 171 lbs 2017-05-15 Weight 168 lbs 2016-11-13 Weight 170 lbs 2016-06-28 Weight 174 lbs 2016-02-28 Weight 180 lbs 2015-06-06 Weight 183 lbs 2014-01-18 Weight 181 lbs 2013-07-21 Weight 175 lbs 2012-05-02 Weight 172 lbs 2012-03-17 Weight 171 lbs 2012-02-19 Weight 170 lbs 2012-02-08 Weight 172 lbs 2012-01-11 BMI 38.78 kg/m2 2022-10-24 BMI 37.77 kg/m2 2022-08-22 BMI 34.53 kg/m2 2022-05-24 BMI 34.94 kg/m2 2022-03-23 BMI 36.15 kg/m2 2022-02-27 BMI 36.96 kg/m2 2021-09-22 BMI 36.96 kg/m2 2020-12-16 BMI 35.95 kg/m2 2020-09-30 BMI 34.94 kg/m2 2020-01-15 BMI 34.13 kg/m2 2019-07-27 BMI 36.55 kg/m2 2019-03-24 BMI 36.15 kg/m2 2018-11-19 BMI 35.54 kg/m2 2018-07-22 BMI 36.15 kg/m2 2018-03-18 BMI 36.35 kg/m2 2017-12-17 BMI 34.53 kg/m2 2017-05-15 BMI 33.93 kg/m2 2016-11-13 BMI 34.33 kg/m2 2016-06-28 BMI 35.14 kg/m2 2016-02-28 BMI 36.35 kg/m2 2015-06-06 BMI 36.96 kg/m2 2014-01-18 BMI 36.55 kg/m2 2013-07-21 BMI 35.34 kg/m2 2012-05-02 BMI 34.74 kg/m2 2012-03-17 BMI 34.53 kg/m2 2012-02-19 BMI 34.33 kg/m2 2012-02-08 BMI 34.74 kg/m2 2012-01-11 Heart Rate 80 /min 2022-10-24 Heart Rate 82 /min 2022-08-22 Heart Rate 81 /min 2022-05-24 Heart Rate 85 /min 2022-03-23 Heart Rate 71 /min 2022-02-27 Heart Rate 79 /min 2021-09-22 Heart Rate 68 /min 2020-12-16 Heart Rate 78 /min 2020-09-30 Heart Rate 81 /min 2020-01-15 Heart Rate 84 /min 2019-07-27 Heart Rate 75 /min 2019-03-24 Heart Rate 79 /min 2018-11-19 Heart Rate 99 /min 2018-07-22 Heart Rate 78 /min 2018-03-18 Heart Rate 80 /min 2017-12-17 Heart Rate 80 /min 2017-05-15 Heart Rate 84 /min 2016-11-13 Heart Rate 78 /min 2016-06-28 Heart Rate 75 /min 2016-02-28 Heart Rate 82 /min 2015-06-06 Heart Rate 85 /min 2014-01-18 Heart Rate 70 /min 2013-07-21 Heart Rate 68 /min 2012-05-02 Heart Rate 82 /min 2012-03-17 Heart Rate 76 /min 2012-02-19 Heart Rate 80 /min 2012-02-08 Heart Rate 68 /min 2012-01-11 Temperature 97.3 degrees Fahrenheit Temperature 97.2 degrees Fahrenheit Temperature 96.6 degrees Fahrenheit Temperature 96.7 degrees Fahrenheit Temperature 96.7 degrees Fahrenheit Temperature 97 degrees Fahrenheit 2021-09-22 Temperature 97 degrees Fahrenheit 2020-12-16 Temperature 97.2 degrees Fahrenheit Temperature 96.7 degrees Fahrenheit Blood pressure systolic 136 mm Hg Blood pressure diastolic 72 mm Hg 2022-09 MEDICATIONS Medication Instructions Dosage Frequency Start Date End Date Duration Status Memantine HCl ER 28 MG Orally Once a day 1 capsule 24h Active Penicillin V Potassium 250 MG Orally Twice a day 1 tablet 12h Active Memantine HCl ER 7 MG Orally Once a day for 7 days 1 capsule Active oxyCODONE HCl 5 MG Active Furosemide 20 MG TAKE 1 TABLET BY MOUTH EVERY DAY 30 Active ProAir HFA 108 (90 Base) MCG/ACT Inhalation Once a day 2 puffs 24h Active Gabapentin 800 MG Orally Once a day 1 tablet 24h Active Atorvastatin Calcium 20 MG Orally Once a day 1 tablet 24h Active Citalopram Hydrobromide 20 MG Orally Once a day 1 tablet 24h Active Memantine HCl ER 21 MG Orally Once a day for 7 days 1 capsule Active Metoprolol Succinate Active Ibuprofen 800 MG Orally every 6 hrs as directed 6h Active Amitriptyline HCl 10 MG Orally Once a day 3 tabs 24h Active traZODone HCl 100 MG Orally Once a day 1 tablet at bedtime 24h Active traMADol HCl 50 MG TAKE 1 TABLET BY MOUTH EVERY 8 HOURS NEEDED PAIN 17 Aug, 2022 Active Memantine HCl ER 14 MG Orally Once a day for 7 days 1 capsule Active Loperamide HCl 2 MG as directed Active Cyclobenzaprine HCl Active amLODIPine Benzoate Active PROCEDURES Procedure Date Ordered Result Body Site PHONE E/M BY PHYS 21-30 MIN Jul 14, 2021 RESULTS Name Result Date Reference Range Complete Blood Count Auto Diff 2021-05-29 White Blood Count 8.5 4.8-10.8 Red Blood Count 4.28 4.20-5.50 Hemoglobin 13.5 12.0-16.0 Hematocrit 40.7 37.0-47.0 Mean Corpuscular Volume 95.1 80.0 -98.0 Mean Corpuscular Hemoglobin 31.5 27.0-33.0 Mean Corpuscular HGB Conc 33.2 31 .0-35.0 Red Cell Distribution Width 12.8 11.0-16.0 Platelet Count 324 160-400 Mean Platelet Volume 10.0 9.4-12. 3 Neutrophils Percent Auto 70.3 45- 73 Imm Gran Pct Auto 0.2 0.0-0.4 Lymphocytes Percent Auto 22.5 20- 40 Monocytes Percent Auto 5.7 2-11 Eosinophils Percent Auto 1.1 0-4 Basophils Percent Auto 0.2 0-2 NRBC Pct Auto 0.0 0.0-0.2 Neutrophils Absolute Auto 5.9 2. 0-8.3 Imm Gran Abs Auto 0.02 0.00-0.03 Lymphocytes Absolute Auto 1.9 1. 2-4.9 Monocytes Absolute Auto 0.5 0.1- 1.2 Eosinophils Absolute Auto 0.1 0. 0-0.4 Basophils Absolute Auto 0.0 0.0- 0.2 NRBC Abs Auto 0.000 0.0-0.012 CA 27.29 2021-05-29 CA 27.29 12 <38 MM tomosynthesis screening BI 2021-01-24 Complete Blood Count Auto Diff 2020-11-04 White Blood Count 7.2 4.8-10.8 Red Blood Count 4.21 4.20-5.50 Hemoglobin 13.2 12.0-16.0 Hematocrit 40.3 37-47 Mean Corpuscular Volume 95.7 80-9 8 Mean Corpuscular Hemoglobin 31.4 27.0-33.0 Mean Corpuscular HGB Conc 32.8 31 .0-35.0 Red Cell Distribution Width 13.5 11.0-16.0 Platelet Count 313 160-400 Mean Platelet Volume 10.1 9.4-12. 3 Neutrophils Percent Auto 68.3 45- 73 Imm Gran Pct Auto 0.3 0.0-0.4 Lymphocytes Percent Auto 22.5 20- 40 Monocytes Percent Auto 7.3 2-11 Eosinophils Percent Auto 1.2 0-4 Basophils Percent Auto 0.4 0-2 NRBC Pct Auto 0.0 0.0-0.2 Neutrophils Absolute Auto 4.9 2. 0-8.3 Imm Gran Abs Auto 0.02 0.00-0.03 Lymphocytes Absolute Auto 1.6 1. 2-4.9 Monocytes Absolute Auto 0.5 0.1- 1.2 Eosinophils Absolute Auto 0.1 0. 0-0.4 Basophils Absolute Auto 0.0 0.0- 0.2 NRBC Abs Auto 0.000 0.0-0.012 Comprehensive [place]. Panel Fast 2020-11-04 Sodium 140 135-145 Potassium 4.5 3.3-5.1 Chloride 106 96-108 Carbon Dioxide 25 22-29 Anion Gap 14 12-20 Blood Urea Nitrogen 21 9-16 Creatinine 0.96 0.5-1.4 Estimated Glomerular Filt Rate 57 Glucose Fasting 107 60-99 Calcium 9.0 8.4-10.2 Bilirubin Total 0.6 0.0-1.0 Aspartate Amino Transferase 16 5-31 Alanine Aminotransferase 12 0-3 1 Total Protein 6.9 6.5-8.0 Albumin Level 4.1 3.5-5.0 Alkaline Phosphatase 69 39-117 Lipid Panel 2020-11-04 Triglycerides 53 Cholesterol 181 LDL Cholesterol Calculated 89 HDL Cholesterol 82 TSH reflex Free T4 2020-11-04 TSH reflex Free T4 1.05 0.32-4.0 CA 27.29 2020-11-04 CA 27.29 12 <38 MAMMOGRAM DIGITAL BILATERAL DIAGNO 2020-01-06 PROFILE, FASTING (COMPREHENS HEATHER METABOLIC) 2019-07-21 NA 138 135-145 K 4.2 3.3-5.1 CL 104 96-108 CO2 26 22-29 ANION GAP 12 12-20 FASTING BLOOD SUGAR 118 60-99 BUN 15 9-16 CREATININE 1.06 0.5-1.4 ESTIMATED GFR 51 PROTEIN, TOTAL 6.8 6.5-8.0 ALBUMIN 4.3 3.5-5.0 BILIRUBIN, TOTAL 0.7 0.0-1.0 CALCIUM 9.6 8.4-10.2 ALK. PHOS. 68 39-117 GOT 15 5-31 GPT 16 0-31 LIPID PANEL 2019-07-21 CHOLESTEROL 213 TRIGLYCERIDE 126 HDL 69 LDL CALCULATED 119 TSH (THYROID STIMULATING HORMONE) 2019-07-21 TSH 1.10 0.32-4.0 CBC w DIFF 2019-07-21 WBC 7.7 4.8-10.8 ABSOLUTE NEUTROPHIL COUNT 5.6 2. 2-7.9 RBC 4.17 4.20-5.50 HEMOGLOBIN 13.3 12.0-16.0 HEMATOCRIT 39.9 37-47 MCV 95.6 80-98 MCH 31.9 27.0-33.0 MCHC 33.4 31.0-35.0 PLATELET COUNT 321 160-400 RDW 14.0 11.0-16.0 NEUTROPHILS 72.9 45-73 LYMPHOCYTES 20.5 20-40 MONOCYTES 5.2 2-11 EOSINOPHILS 0.5 0-4 BASOPHILS 0.9 0-2 CA 27.29 2019-07-21 CA 27.29 11 <38 PROFILE, RANDOM (COMPREHENSI VE METABOLIC) 2019-03-18 NA 141 135-145 K 3.8 3.3-5.1 CL 107 96-108 CO2 22 22-29 ANION GAP 16 12-20 GLUCOSE,RANDOM 94 60-115 BUN 15 9-16 CREATININE 0.90 0.5-1.4 ESTIMATED GFR >60 PROTEIN, TOTAL 6.3 6.5-8.0 ALBUMIN 4.1 3.5-5.0 BILIRUBIN, TOTAL 0.4 0.0-1.0 CALCIUM 9.0 8.4-10.2 ALK. PHOS. 60 39-117 GOT 24 5-31 GPT 29 0-31 CBC w DIFF 2019-03-18 WBC 7.1 4.8-10.8 ABSOLUTE NEUTROPHIL COUNT 4.9 2. 2-7.9 RBC 3.85 4.20-5.50 HEMOGLOBIN 12.5 12.0-16.0 HEMATOCRIT 37.0 37-47 MCV 96.2 80-98 MCH 32.4 27.0-33.0 MCHC 33.7 31.0-35.0 PLATELET COUNT 294 160-400 RDW 11.9 11.0-16.0 NEUTROPHILS 69.5 45-73 LYMPHOCYTES 24.1 20-40 MONOCYTES 4.8 2-11 EOSINOPHILS 0.9 0-4 BASOPHILS 0.8 0-2 CA 27.2019-03-18 CA 27.29 9 <38 MAMMOGRAM DIGITAL BILATERAL DIAGNO 2018-12-08 PROFILE, RANDOM (COMPREHENSI VE METABOLIC) 2018-10-31 NA 139 135-145 K 4.7 3.3-5.1 CL 106 96-108 CO2 23 22-29 ANION GAP 15 12-20 GLUCOSE,RANDOM 118 60-115 BUN 20 9-16 CREATININE 0.94 0.5-1.4 ESTIMATED GFR 59 PROTEIN, TOTAL 7.0 6.5-8.0 ALBUMIN 4.2 3.5-5.0 BILIRUBIN, TOTAL 0.6 0.0-1.0 CALCIUM 9.7 8.4-10.2 ALK. PHOS. 82 39-117 GOT 19 5-31 GPT 17 0-31 CBC w DIFF 2018-10-31 WBC 7.1 4.8-10.8 ABSOLUTE NEUTROPHIL COUNT 5.3 2. 2-7.9 RBC 4.21 4.20-5.50 HEMOGLOBIN 13.4 12.0-16.0 HEMATOCRIT 39.3 37-47 MCV 93.4 80-98 MCH 31.9 27.0-33.0 MCHC 34.1 31.0-35.0 PLATELET COUNT 296 160-400 RDW 12.4 11.0-16.0 NEUTROPHILS 74.8 45-73 LYMPHOCYTES 17.0 20-40 MONOCYTES 6.3 2-11 EOSINOPHILS 1.1 0-4 BASOPHILS 0.7 0-2 CA 27.2018-10-31 CA 27.29 16 <38 URINALYSIS + MICROSCOPIC 2018-07-22 COLOR YELLOW APPEARANCE,(UA) CLEAR SPECIFIC GRAVITY 1.025 1.005-1.025 LEUKOCYTES TRACE NEG NITRITE NEG NEG PROTEIN,QUALITATIVE NEG NEG - TR KEYANNA PH 5.5 5.0-8.0 URINE BLOOD NEG NEG KETONES NEG NEG GLUCOSE NEG NEG MICROSCOPIC WBC 5-9 0-4 MICROSCOPIC RBC 1-4 0 EPITHELIAL CELLS 1+ BACTERIA 1+ URINE CULTURE 2018-07-22 URINE CULTURE RESULT URINE CULTURE <10,000 col/ml URINE CULTURE Mixed Gram-positive huey URINE CULTURE Multiple organism ty pes; clinical significance unclear URINE CULTURE Please resubmit if indicated. URINE CULTURE BASIC METABOLIC PROFILE RANDOM 2018-06-26 NA 136 135-145 K 4.5 3.3-5.1 CL 100 96-108 CO2 25 22-29 ANION GAP 16 12-20 GLUCOSE,RANDOM 105 60-115 BUN 20 9-16 CREATININE 1.11 0.5-1.4 ESTIMATED GFR 49 CALCIUM 9.9 8.4-10.2 CBC w DIFF 2018-06-26 WBC 9.7 4.8-10.8 ABSOLUTE NEUTROPHIL COUNT 7.0 2. 2-7.9 RBC 4.59 4.20-5.50 HEMOGLOBIN 14.8 12.0-16.0 HEMATOCRIT 44.4 37-47 MCV 96.6 80-98 MCH 32.3 27.0-33.0 MCHC 33.4 31.0-35.0 PLATELET COUNT 304 160-400 RDW 12.4 11.0-16.0 NEUTROPHILS 71.8 45-73 LYMPHOCYTES 21.1 20-40 MONOCYTES 5.6 2-11 EOSINOPHILS 0.5 0-4 BASOPHILS 1.0 0-2 CA 27.29 2018-06-26 CA 27.29 16 <38 PROFILE, RANDOM (COMPREHENSI VE METABOLIC) 2018-03-07 NA 141 135-145 K 4.4 3.3-5.1 CL 108 96-108 CO2 22 22-29 ANION GAP 15 12-20 GLUCOSE,RANDOM 102 60-115 BUN 18 9-16 CREATININE 0.95 0.5-1.4 ESTIMATED GFR 58 PROTEIN, TOTAL 6.7 6.5-8.0 ALBUMIN 4.1 3.5-5.0 BILIRUBIN, TOTAL 0.5 0.0-1.0 CALCIUM 8.7 8.4-10.2 ALK. PHOS. 71 39-117 GOT 16 5-31 GPT 18 0-31 CBC w DIFF 2018-03-07 WBC 11.3 4.8-10.8 ABSOLUTE NEUTROPHIL COUNT 8.8 2. 2-7.9 RBC 4.19 4.20-5.50 HEMOGLOBIN 13.4 12.0-16.0 HEMATOCRIT 40.5 37-47 MCV 96.6 80-98 MCH 31.9 27.0-33.0 MCHC 33.1 31.0-35.0 PLATELET COUNT 308 160-400 RDW 12.1 11.0-16.0 NEUTROPHILS 78.1 45-73 LYMPHOCYTES 15.8 20-40 MONOCYTES 5.1 2-11 EOSINOPHILS 0.6 0-4 BASOPHILS 0.5 0-2 CA 27.29 2018-03-07 CA 27.29 14 <38 MAMMOGRAM DIGITAL BILATERAL DIAGNO 2017-12-04 MAMMOGRAM DIGITAL BILATERAL DIAGNO 2016-11-23 MAMMOGRAM DIGITAL UNILATERAL YUE LT 2016-05-18 PROFILE, FASTING (COMPREHENS HEATHER METABOLIC) 2016-02-29 NA 136 135-145 K 4.3 3.3-5.1 CL 98 96-108 CO2 28 22-29 ANION GAP 14 12-20 FASTING BLOOD SUGAR 137 60-99 BUN 22 9-16 CREATININE 1.01 0.5-1.4 ESTIMATED GFR 55 PROTEIN, TOTAL 6.8 6.5-8.0 ALBUMIN 4.4 3.5-5.0 BILIRUBIN, TOTAL 0.5 0.0-1.0 CALCIUM 9.6 8.4-10.2 ALK. PHOS. 76 39-117 GOT 18 5-31 GPT 19 0-31 HEMOGLOBIN A1C (GLYCOHEMOGLOBIN) 2016-02-29 HEMOGLOBIN A1C % (HH) 5.7 ESTIMATED AVG GLUCOSE 117 LIPID PANEL 2016-02-29 CHOLESTEROL 178 TRIGLYCERIDE 99 HDL 72 LDL CALCULATED 87 MICROALBUMIN, RANDOM 2016-02-29 MICALB/CRE RATIO RANDOM URINE 8.3 MICROALBUMIN, RANDOM URINE 17.0 CREATININE, RANDOM URINE 202.49 NUC WHOLE BODY SCAN BONE 2016-03-02 XR LUMBAR SPINE 2016-03-01 XR SACRUM &/OR COCCYX 2016-03-01 BONE DENSITY DEXA 2016-03-20 PROFILE, RANDOM (COMPREHENSI VE METABOLIC) 2015-06-17 NA 138 135-145 K 4.6 3.3-5.1 CL 105 96-108 CO2 23 22-29 ANION GAP 15 12-20 GLUCOSE,RANDOM 92 60-115 BUN 28 9-16 CREATININE 1.1 0.5-1.4 ESTIMATED GFR 50 PROTEIN, TOTAL 6.9 6.5-8.0 ALBUMIN 4.3 3.5-5.0 BILIRUBIN, TOTAL 0.3 0.0-1.0 CALCIUM 9.7 8.4-10.2 ALK. PHOS. 73 39-117 GOT 16 5-31 GPT 21 0-31 CBC w DIFF 2015-06-17 WBC 9.5 4.8-10.8 ABSOLUTE NEUTROPHIL COUNT 6.7 2. 2-7.9 RBC 4.59 4.20-5.50 HEMOGLOBIN 14.6 12.0-16.0 HEMATOCRIT 45.2 37-47 MCV 98.5 80-98 MCH 31.9 27.0-33.0 MCHC 32.4 31.0-35.0 PLATELET COUNT 368 160-400 RDW 12.9 11.0-16.0 NEUTROPHILS 70.4 45-73 LYMPHOCYTES 21.2 20-40 MONOCYTES 7.4 2-11 EOSINOPHILS 0.3 0-4 BASOPHILS 0.8 0-2 CBC w DIFF 2016-02-29 WBC 8.0 4.8-10.8 ABSOLUTE NEUTROPHIL COUNT 5.1 2. 2-7.9 RBC 4.43 4.20-5.50 HEMOGLOBIN 14.0 12.0-16.0 HEMATOCRIT 41.4 37-47 MCV 93.3 80-98 MCH 31.5 27.0-33.0 MCHC 33.8 31.0-35.0 PLATELET COUNT 326 160-400 RDW 12.8 11.0-16.0 NEUTROPHILS 64.0 45-73 LYMPHOCYTES 26.7 20-40 MONOCYTES 7.0 2-11 EOSINOPHILS 1.3 0-4 BASOPHILS 1.0 0-2 MAMMOGRAM DIGITAL CULLEN ADDED VIEWS 2014-11-05 MAMMOGRAM DIGITAL BILATERAL SCREEN 2014-11-01 PROFILE, FASTING (COMPREHENS HEATHER METABOLIC) 2014-01-12 NA 139 135-145 K 4.2 3.3-5.1 CL 105 96-108 CO2 24 22-29 ANION GAP 14 12-20 FASTING BLOOD SUGAR 118 60-99 BUN 21 9-16 CREATININE 0.83 0.5-1.4 ESTIMATED GFR >60 PROTEIN, TOTAL 6.6 6.5-8.0 ALBUMIN 3.8 3.5-5.0 BILIRUBIN, TOTAL 0.3 0.0-1.0 CALCIUM 8.8 8.4-10.2 ALK. PHOS. 71 39-117 GOT 20 <3-31 GPT 21 <6-31 LIPID PANEL 2014-01-12 CHOLESTEROL 196 TRIGLYCERIDE 94 HDL 65 LDL 113 CBC w DIFF 2014-01-12 WBC 7.1 4.8-10.8 ABSOLUTE NEUTROPHIL COUNT 4.9 2. 2-7.9 RBC 4.46 4.20-5.50 HEMOGLOBIN 14.4 12.0-16.0 HEMATOCRIT 43.2 37-47 MCV 96.8 80-98 MCH 32.2 27.0-33.0 MCHC 33.3 31.0-35.0 PLATELET COUNT 276 160-400 RDW 12.1 11.0-16.0 NEUTROPHILS 68.8 45-73 LYMPHOCYTES 23.6 20-40 MONOCYTES 5.8 2-11 EOSINOPHILS 1.0 0-4 BASOPHILS 0.8 0-2 CA 27.29 2014-01-12 CA 27.29 11 <38 PROFILE, FASTING (COMPREHENS HEATHER METABOLIC) 2013-10-14 NA 141 135-145 K 4.1 3.3-5.1 CL 109 96-108 CO2 26 22-29 ANION GAP 10 12-20 FASTING BLOOD SUGAR 106 60-99 BUN 20 9-16 CREATININE 0.87 0.5-1.4 ESTIMATED GFR >60 PROTEIN, TOTAL 6.5 6.5-8.0 ALBUMIN 3.9 3.5-5.0 BILIRUBIN, TOTAL 0.5 0.0-1.0 CALCIUM 8.5 8.4-10.2 ALK. PHOS. 67 39-117 GOT 17 <3-31 GPT 18 <6-31 MICROALBUMIN, RANDOM 2013-10-14 MICROALBUMIN, RANDOM URINE 7.3 MICROALBUMIN, RANDOM URINE 7.0 CREATININE, RANDOM URINE 94.67 MAMMOGRAM DIGITAL BILATERAL SCREEN 2013-10-27 LIPID PANEL 2013-10-14 CHOLESTEROL 216 TRIGLYCERIDE 102 HDL 61 LDL 135 CBC w DIFF 2013-10-14 WBC 6.7 4.8-10.8 ABSOLUTE NEUTROPHIL COUNT 4.0 2. 2-7.9 RBC 4.46 4.20-5.50 HEMOGLOBIN 13.5 12.0-16.0 HEMATOCRIT 41.3 37-47 MCV 92.6 80-98 MCH 30.2 27.0-33.0 MCHC 32.6 31.0-35.0 PLATELET COUNT 297 160-400 RDW 12.7 11.0-16.0 NEUTROPHILS 59.5 45-73 LYMPHOCYTES 30.9 20-40 MONOCYTES 7.5 2-11 EOSINOPHILS 1.3 0-4 BASOPHILS 0.8 0-2 MAMMOGRAM DIGITAL BILATERAL DIAGNO 2012-08-20 MRI BREAST BILATERAL 2012-08-11 XR FEMUR RT 2012-04-24 XR SHOULDER RT 2 VIEWS 2012-03-24 CT ABD & PELVIS WWO CONTRAST 2012-03-21 CT ABD W&WO CONTRAST 2012-03-20 CT PELVIS WITH IV CONTRAST ONLY 2012-02-26 5 PROFILE, RANDOM (COMPREHENSI VE METABOLIC) 2012-03-17 NA 141 135-145 K 3.9 3.3-5.1 CL 107 96-108 CO2 24 -29 ANION GAP 14 12-20 GLUCOSE,RANDOM 83 60-115 BUN 19 9-16 CREATININE 0.78 0.5-1.4 ESTIMATED GFR >60 PROTEIN, TOTAL 6.7 6.5-8.0 ALBUMIN 3.8 3.5-5.0 BILIRUBIN, TOTAL 0.4 0.0-1.0 CALCIUM 9.0 8.4-10.2 ALK. PHOS. 63 39-117 GOT 16 <3-31 GPT 16 <6-31 CBC w DIFF 2012-03-17 WBC 9.5 4.8-10.8 ABSOLUTE NEUTROPHIL COUNT 6.6 2. 2-7.9 RBC 4.18 4.20-5.50 HEMOGLOBIN 13.4 12.0-16.0 HEMATOCRIT 40.2 37-47 MCV 96.2 80-98 MCH 31.9 27.0-33.0 MCHC 33.2 31.0-35.0 PLATELET COUNT 329 160-400 RDW 12.3 11.0-16.0 NEUTROPHILS 68.9 45-73 LYMPHOCYTES 24.1 20-40 MONOCYTES 5.9 2-11 EOSINOPHILS 0.3 0-4 BASOPHILS 0.7 0-2 CA 27.29 2012-03-17 CA 27.29 14 <38 XR FEMUR RT 2012-03-03 US RENAL BILATERAL 2012-03-03 NUC WHOLE BODY SCAN BONE 2012-02-12 PROFILE, RANDOM (COMPREHENSI VE METABOLIC) 2012-01-12 NA 141 135-145 K 4.4 3.3-5.1 CL 109 96-108 CO2 22 -29 ANION GAP 14 12-20 GLUCOSE,RANDOM 100 60-115 BUN 15 9-16 CREATININE 0.72 0.5-1.4 ESTIMATED GFR >60 PROTEIN, TOTAL 6.6 6.5-8.0 ALBUMIN 4.0 3.5-5.0 BILIRUBIN, TOTAL 0.3 0.0-1.0 CALCIUM 8.9 8.4-10.2 ALK. PHOS. 67 39-117 GOT 22 <3-31 GPT 25 <6-31 CBC w DIFF 2012-01-12 WBC 6.8 4.8-10.8 ABSOLUTE NEUTROPHIL COUNT 4.4 2. 2-7.9 RBC 4.30 4.20-5.50 HEMOGLOBIN 13.0 12.0-16.0 HEMATOCRIT 39.6 37-47 MCV 92.1 80-98 MCH 30.4 27.0-33.0 MCHC 33.0 31.0-35.0 PLATELET COUNT 393 160-400 RDW 12.7 11.0-16.0 NEUTROPHILS 64.9 45-73 LYMPHOCYTES 26.3 20-40 MONOCYTES 6.9 2-11 EOSINOPHILS 0.9 0-4 BASOPHILS 1.1 0-2 CA 27.29 2012-01-12 CA 27.29 14 <38 REASON FOR VISIT follow up, Right Breast Cancer, Left breast, Asthma, Hypertension, Hyperlipidemia, Obesity, Osteoporosis, Osteoporosis, Obesity, Hyperlipidemia, Hypertension, Depression, Asthma, Carcinoma the right breast, Carcinoma left breast, Reason cellulitis, left chest wall, Malignant neoplasm of upper-outer quadrant of right female breast , Malignant neoplasm of unspecified site of left female breast , Hypertension, Hyperlipidemia, hospital follow up, Seroma, Cellulitis of chest wall, Follow-up, pt still inpt at , referral to [facility] at , Invasive ductal carcinoma, right breast 2004, 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, receptor -3.3 mm December 2015, Invasive ductal and lobular gradecentimeter carcinoma, right breast, node positive, January 2022, LCIS left breast January 2022,Recent bilateral mastectomy, Breast Cancer, Hypertension, Hyperlipidemia, Asthma, Obesity, Osteoporosis, Follow up, Breast cancer, Breast cancer, Obesity, Osteoporosis, Metachronous bilateral breast c ancers, Depression, Asthma, COPD, Obesity, Osteoporosis, Telehealth, Letter request, Breast Cancer,Breast Cancer, Breast Cancer, Breast Cancer, Breast Cancer, Breast Cancer, hypertension, asthma, depression, COPD, Mammo order request, breast cancer, breast cancer, breast cancer, order for left breast mammogram, breast cancer, breast cancer, breast cancer, urine culture results, breast cancer, breast cancer, breast cancer, make appt. , patient due for yearly mammogram , breast cancer, breast cancer, breast cancer, record released to [facility], breast cancer, breast cancer, breast cancer, breast cancer, DCIS/LCIS left breast, need office note, appt for mammogram at , wrong order for mammo, breast cancer, breast cancer, breast cancer, Ultrasound form needed, appt for mammogram at ,breast cancer, breast cancer, breast cancer, breast cancer, review femur x-ray possible lesion, X-RAY NEEDED OF RIGHT FEMUR, breast cancer, renal mass, breast cancer/right leg pain, breast pain, breast pain, apt dr cheng, breast ca, Breast Cancer, Historical data abstraction, Historical data abstraction, Historical data abstraction, breast cancer, Historical data abstraction Insurance Providers Health Insurance Type Health Plan Insurance Address Health Plan Insurance Phone Health Plan Insurance Name Health Plan Coverage Dates Member ID Patient Relationship to Subscriber Patient Address Patient Phone Patient Name Patient Date of Subscriber ID Subscriber Name Subscriber Date of Group No [employer] [address] ATTN CLAIMS ALL[place] MOU[place] [id number] [employer] self Beatriz Herbert [id number]
--- NOTE | 2022-12-24 11:51 | A.OFFVIS_ITS ---
Intake Vital Signs 12/24/22 11:52 Height 4 ft 8 in Weight 191 lb BMI 42.8 BP 140/80 H Pulse 84 Pulse Oximetry (%) 94 Intake Visit Reasons: 6 mth,/cellulitis penicillin f/u Allergies No Known Allergies [No Known Allergies*] Allergy (Verified 12/24/22 11:52) HPI 6 mth,/cellulitis penicillin f/u HPI Details She has no further problems with breast cellulitis so is stopping PCN. She has very painful and swollen L[facility]. 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 malignant neoplasm of right breast Seroma Traumatic complete tear of right rotator cuff Surgical History History of bilateral mastectomy (02/19/22) History of colonoscopy History of esophagogastroduodenoscopy (EGD) History of lumbar fusion History of lumpectomy of both breasts History of surgery Hx of appendectomy Hx of blepharoplasty Hx of cholecystectomy S/P bilateral mastectomy S/P [id number] (total abdominal hysterectomy and bilateral salpingo-oophorectomy) Family History Father Heart problem Mother Heart disease Hypertension Colon cancer Epilepsy Maternal Grandmother Esophageal cancer Daughter Breast cancer Brother Lung cancer Sister Breast cancer Sister Breast cancer, Onset Age: 60 Sister COVID Daughter Acute kidney failure Social History Household Members: None Housing: Apartment Are you a primary human services care specialist to a significant other at home: No Do you presently have visiting nurse or other home services: Yes (daughter CONE SEWER) Alcohol intake: never Patient Tobacco Use Status: Never used Tobacco e-Cigarette/Vaping Use: Never Used Second Hand Smoke Exposure: No Advance Directives Date on File: 09/26/21 service: No Current occupational status: disabled 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) Hearing needs: No Vision needs: Yes Female Reproductive History Menstrual Age of Menarche: 9 Review of Systems Const All systems reviewed & are unremarkable except as noted in HPI and below Physical Exam Vital Signs: Last Vital Signs Pulse 84 12/24/22 11:52 BP 140/80 H 12/24/22 11:52 Pulse Ox 94 12/24/22 11:52 BMI result Body Mass Index 42.8 Const General: cooperative Orientation/consciousness: patient oriented x3 HEENT Head: Yes normal to inspection Mouth: Normal oral and palatal mucosa present Eyes General: appearance normal, both eyes and all related structures Pupils: Equal, round and reactive pupils present Resp Effort & Inspection: normal respiratory effort Cardio Rate: regular rate Rhythm: regular rhythm GI Palpation (GI): Soft to palpation and nontender General: Yes no CVA tenderness Back/Spine/Pelvis Back: no CVA tenderness Skin General skin exam: no rashes or lesions noted Neuro General: patient oriented x3 Cranial nerves: Yes CN's II-XII intact bilaterally and Yes Equal, round and reactive pupils present Extrem Other: swollen painful left leg Psych Appearance: grossly normal Assessment & Plan Assessment & Plan (1) DVT (deep venous thrombosis): Code(s): I82.409 - Acute embolism and thrombosis of unspecified deep veins of unspecified lower extremity Plan No further antibiotics or visits. She was sent to US for evaluation and then ER as showed DVT. 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
[2022-12-24 11:52] VITALS: BP 140/80; PULSE 84; O2SAT 94; BMI 42.8
== END 2022-12-24 12:25 | disposition home or self-care (01) ==
LOC: HO.HID 11:40
PROVIDERS: PCP Physician Assistant; Visit Provider Internal Medicine
DX: I82.409 Acute embolism and thrombosis of unspecified deep veins of unspecified lower extremity (principal)
CPT/HCPCS: 99213

== ENCOUNTER → 2022-12-24 11:40 | Outpatient (BNVA) | payer OTHER, SELFPAY | PROVIDERS: PCP Physician Assistant; Visit Provider Internal Medicine ==

== ENCOUNTER 2022-12-24 12:28 | Outpatient (REF) | payer OTHER, SELFPAY ==
--- NOTE | ~2022-12-24 | US_ITS ---
EXAMINATION: US VENOUS ULTRASOUND WITH DOPPLER LOWER EXTREMITY, LEFT CLINICAL INFORMATION: Left leg pain COMPARISON: None available. TECHNIQUE: Ultrasound of the deep veins is performed from the hip to the calf with compression sonography and color and pulse Doppler assessment. Spectral analysis with color-flow imaging is performed. FINDINGS: There is noncompressibility and nonaugmentation with intraluminal thrombus in the entire deep venous system from the proximal femoral vein through the calf veins. No Reyes cyst observed. US/US venous duplex LE LT IMPRESSION: Findings consistent with deep vein thrombosis through the entirety of the deep venous system of the left leg.
== END 2022-12-24 12:29 | disposition home or self-care (01) ==
LOC: HO.US 12:28
PROVIDERS: Visit Provider Internal Medicine
DX: M79.605 Pain in left leg (principal); I82.409 Acute embolism and thrombosis of unspecified deep veins of unspecified lower extremity; M51.16 Intervertebral disc disorders with radiculopathy, lumbar region; J45.30 Mild persistent asthma, uncomplicated; D05.00 Lobular carcinoma in situ of unspecified breast; Z90.13 Acquired absence of bilateral breasts and nipples
CPT/HCPCS: 93971; 99212

== ENCOUNTER 2022-12-24 13:47 | Inpatient (IN) | payer OTHER, SELFPAY ==
--- NOTE | ~2022-12-24 | CT_ITS ---
EXAMINATION: CT ANGIOGRAM OF THE CHEST WITH AND WITHOUT CONTRAST (CT PULMONARY ANGIOGRAM FOR PE) CLINICAL INFORMATION: Reason for Exam Shortness of breath, left lower extremity DVT COMPARISON: 03/02/2022 TECHNIQUE: Prior to contrast administration, noncontrast localization images were obtained. Subsequently, multidetector volumetric imaging was performed from the thoracic inlet to below the diaphragms following the administration of 65 mL Omnipaque 350 intravenous contrast. No contrast reaction reported Sagittal, coronal, and MIP oblique sagittal reformatted images were obtained on the CT workstation, uploaded to PACS, and reviewed. This CT examination was performed using dose optimization techniques as appropriate, variously including the following: *Automated exposure control *Adjustment of mA and/or kV according to patient size (this includes techniques or standardized protocols for targeted exams where dose is matched to indication/reason for exam; i.e. extremities or head) *Use of iterative reconstruction technique Total exam dose-length product 248 mGy-cm FINDINGS: QUALITY OF STUDY/CONTRAST BOLUS: Satisfactory. PULMONARY ARTERIES: Bilateral pulmonary emboli present. On the right, embolic material extends from the right main pulmonary artery into the right upper and lower lobe pulmonary arteries and segmental branches to the basal segments. On the left, the clot burden is smaller with small amounts of embolic material extending into the apical posterior segmental pulmonary arteries and anterior and posterior basal segmental pulmonary arteries. THORACIC AORTA: No aneurysm. LUNG: There is rounded subpleural groundglass opacity at the right lung apex laterally which may represent an evolving pulmonary infarct or ischemic pneumonitis. A focal area of infectious pneumonitis is also possible. Diffuse mild bronchial wall thickening without bronchiectasis. Mild mosaic attenuation relates to air trapping on this expiratory phase image acquisition. PLEURA: No pleural effusion or pneumothorax. MEDIASTINUM: Global cardiomegaly. RV:LV ratio is less than 1. No anatomic overt evidence of right heart strain. No pericardial effusion. No hilar or mediastinal lymphadenopathy. No evidence of septal bowing or right heart strain. CORONARY ARTERY CALCIFICATION: Present. CHEST WALL/AXILLA: Bilateral mastectomy. Subcutaneous scarring present along the left breast at the site of the previous collection. OSSEOUS STRUCTURES: No acute or suspicious osseous abnormality. Stable mild superior plate compression fractures at T3 and T4. UPPER ABDOMEN: Unremarkable. IMPRESSION * Bilateral pulmonary emboli as described. * No overt evidence of right heart strain. * Focal groundglass opacity at the right lung apex laterally may represent an evolving pulmonary infarct / ischemic pneumonitis, less likely infectious pneumonitis. * Mild diffuse bronchial wall thickening as can be seen with bronchitis or asthma. VTE: positive. This critical result was discussed with Dr Escobedo at 12/24/2022 11:58 PM and it was ascertained that the content and urgency of the report was understood at the time of direct communication.
--- NOTE | ~2022-12-24 | XR_ITS ---
EXAMINATION: XR CHEST CLINICAL INFORMATION: Post right IJ placement. COMPARISON: Chest radiograph 12/24/2022. TECHNIQUE: Frontal view of the chest was obtained. FINDINGS: Right IJ CVC tip projects at the level of the cavoatrial junction. Stable prominence of the cardiomediastinal silhouette. Unchanged asymmetric elevation of the right hemidiaphragm. No new focal airspace opacity, pleural effusion or pneumothorax. No acute osseous abnormalities. XR/XR chest 1V IMPRESSION: 1. Right IJ CVC tip projects at the level of the cavoatrial junction. No pneumothorax. 2. Unchanged prominence of the cardiomediastinal silhouette as well as elevation of the right hemidiaphragm.
--- NOTE | ~2022-12-24 | XR_ITS ---
EXAMINATION: XR CHEST CLINICAL INFORMATION: Shortness of breath. Chest pain. COMPARISON: 10/22/2022 TECHNIQUE: Frontal view of the chest was obtained. FINDINGS: Elevation of the right hemidiaphragm is unchanged. No consolidation, pneumothorax, or pleural effusion. Cardiac silhouette is normal. Calcific atherosclerosis is present in the thoracic aorta. There is degenerative spondylosis in the thoracic spine. No acute osseous findings. XR/XR chest 1V IMPRESSION: No acute pulmonary findings. Persistent elevation of the right hemidiaphragm.
--- NOTE | 2022-12-24 13:55 | ED.GENADULT ---
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 Related Data Home Medications Medication Instructions Recorded Confirmed citalopram 20 mg tablet 1 tab PO DAILY 05/05/22 12/24/22 albuterol sulfate 90 mcg/actuation 1 puff PO QID PRN Shortness Of 12/24/22 12/24/22 aerosol inhaler Breath amitriptyline 10 mg tablet 20 mg PO BEDTIME PRN Insomnia 12/24/22 12/24/22 cyclobenzaprine 5 mg tablet 10 mg PO TID PRN Muscle Spasm 12/24/22 12/24/22 oxycodone 10 mg tablet 10 mg PO Q8H PRN Pain 12/24/22 12/24/22 Previous Rx's Medication Instructions Recorded metoprolol tartrate 50 mg tablet 50 mg PO BID #180 tabs 06/09/22 tamoxifen 20 mg tablet 20 mg PO DAILY #90 tabs 06/18/22 albuterol sulfate 2.5 mg/3 mL 2.5 mg (3 mL) inhalation Q6H PRN 07/20/22 (0.083 %) solution for nebulization for wheezing #150 mL omeprazole 20 mg capsule,delayed 20 mg PO DAILY 90 days #90 caps 09/26/22 release acetaminophen 325 mg tablet 325 mg PO Q6H PRN pain 30 days 09/27/22 #120 tabs memantine 28 mg capsule 28 mg PO DAILY 30 days #30 ea 10/11/22 sprinkle,extended release 24hr blood sugar diagnostic (FreeStyle #100 ea 10/17/22 Lite Strips) blood-glucose meter (FreeStyle #1 ea 10/17/22 Lite Meter kit) diaper,brief,adult,disposable #200 ea 10/17/22 (Briefs, Adult-Extra Large) gabapentin 800 mg tablet 800 mg PO BID 90 days #180 tabs 10/17/22 incontinence pad, liner, disp #400 ea 10/17/22 lancets 28 gauge (FreeStyle #100 ea 10/17/22 Lancets) miscellaneous medical supply #1 ea 10/17/22 (Blood Pressure Cuff) cholecalciferol (vitamin D3) 50 50 mcg PO DAILY #30 tabs 10/22/22 mcg (2,000 unit) tablet (Vitamin D3) amlodipine 10 mg tablet 10 mg PO DAILY 90 days #90 tabs 10/29/22 ibuprofen 800 mg tablet 800 mg PO Q8H PRN pain 30 days #90 10/30/22 tabs mirtazapine 15 mg tablet (Remeron) 15 mg PO BEDTIME 30 days #30 tabs 11/22/22 atorvastatin 20 mg tablet 20 mg PO BEDTIME #90 tabs 11/26/22 trazodone 100 mg tablet 200 mg PO BEDTIME 90 days #180 tabs 11/27/22 dicyclomine 10 mg capsule 20 mg PO QID 30 days #240 caps 12/09/22 aspirin 81 mg chewable tablet 81 mg PO DAILY 30 days #30 tabs 12/11/22 Allergies Allergy/AdvReac Type Severity Reaction Status Date / Time No Known Allergies Allergy Verified 12/24/22 11:52 [No Known Allergies*] Review of Systems Review of Systems: Pertinent positives and negatives as stated in HPI [facility] Past Medical History Source: nursing notes reviewed Medical History Arthritis Asthma Cellulitis of breast Depression Diabetes 1.5, managed as type 2 GERD (gastroesophageal reflux disease) HTN (hypertension) IBS (irritable bowel syndrome) 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 malignant neoplasm of right breast Seroma Traumatic complete tear of right rotator cuff Surgical History History of bilateral mastectomy (02/19/22) History of colonoscopy History of esophagogastroduodenoscopy (EGD) History of lumbar fusion History of lumpectomy of both breasts History of surgery Hx of appendectomy Hx of blepharoplasty Hx of cholecystectomy S/P bilateral mastectomy S/P [id number] (total abdominal hysterectomy and bilateral salpingo-oophorectomy) Family History Family History Father Heart problem Mother Heart disease Hypertension Colon cancer Epilepsy Maternal Grandmother Esophageal cancer Daughter Breast cancer Brother Lung cancer Sister Breast cancer Sister Breast cancer, Onset Age: 60 Sister COVID Daughter Acute kidney failure Social History Social History Household Members: None Housing: Apartment Are you a primary transition of care specialist to a significant other at home: No Do you presently have visiting nurse or other home services: Yes Alcohol intake: never Patient Tobacco Use Status: Never used Tobacco Smoked in Last 30 Days: No e-Cigarette/Vaping Use: Never Used Second Hand Smoke Exposure: No Use of substances other than those prescribed or required for medical reasons: No Advance Directives: Yes Advance Directives on File: Yes Advance Directives Date on File: 09/26/21 service: No Current occupational status: disabled 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) Hearing needs: No Vision needs: Yes Physical Exam ED Vital Signs: Vital Signs - 24 hr 12/24/22 14:19 Temperature 98.1 F Pulse Rate 78 Respiratory Rate 17 Blood Pressure 138/71 Pulse Oximetry 95 Oxygen Delivery Method Room Air BMI result Body Mass Index 36.7 VITAL SIGNS: Reviewed. GENERAL: Elevated BMI, Well developed, well nourished, in no acute distress. HEAD: Normocephalic/atraumatic EYES: PERRLA, EOMI EARS: Ext canals without abnormality NOSE: Nares patent bilateral OROPHARYNX: no oral lesions noted, posterior pharynx clear NECK: Supple, no adenopathy LUNGS: Normal breath sounds. No adventitious sounds or accessory muscle use. SpO2<95> CARDIOVASCULAR: Regular rate and rhythm without noted murmurs, no JVD or lower extremity edema. ABDOMEN: Soft, non-tender, non-distended with bowel sounds. MUSCULOSKELETAL: No tenderness, deformities, or effusions noted on gross inspection. EXTREMITIES: No cyanosis, clubbing or edema; LEFT LOWER EXTREMITY: GOOD PALPABLE PULSES, WARM FOOT, GOOD COLOR, PAIN ON PALPATION OF POSTERIOR CALF AND ABLE TO FEEL CORD SKIN: Inspection of the skin reveals no rashes NEUROLOGIC: Alert and oriented x 3. Strength and sensation to light touch were grossly intact x 4. Course Course Course Narrative: This is an RME: Additional HPI, ROS, PE not included below will be deferred to primary provider. 62-year-old female history of arthritis, depression, diabetes, GERD, hypertension, IBS, lobular carcinoma left breast, cognitive d/o presenting to the emergency being told she had a DVT to LLE at ultrasound. No hx of this not on thinners . Patient also complaining of shortness of breath and chest, substernal chest pain nonradiating, shortness of breath at rest with exertion. Patient reports she has been having left lower extremity pain for the past 3 days worsening. All symptoms ongoing for 3 days. No fevers or chills. 1+ nonpitting edema to left lower extremity. Palpable pulses. A venous duplex was done today at 12:30 results pending Plan labs, EKG Medications Administered Generic Name Dose Route Start Last Admin Trade Name Freq PRN Reason Stop Dose Admin Heparin Sodium/Sodium Chloride 25,000 unit in 250 mls @ 0 mls/hr 12/24/22 20:00 12/24/22 20:35 Heparin Sodium,Porcine/1/2ns IVCONT 14 units/kg/hr .Q0M MARINA 11.94 mls/hr Administration Protocol Per Protocol Discontinued Medications Generic Name Dose Route Start Last Admin Trade Name Freq PRN Reason Stop Dose Admin Acetaminophen 975 mg 12/24/22 22:33 12/24/22 23:05 Acetaminophen 325 Mg Tablet PO 12/24/22 22:34 975 mg ONCE ONE Administration Heparin Sodium (Porcine) 6,800 unit 12/24/22 19:47 12/24/22 20:29 Heparin Sodium,Porcine 5,000 Unit/Ml Vial 80 unit/kg (6800 unit) 12/24/22 19:48 6,800 unit IVPUSH Administration ONCE ONE Procedures Central Line Placement Right IJ: Time Out Performed: No Patient Placed on Monitor/Pulse Ox: Yes MD Prep: mask, gown and gloves Central Line Prep: Chlorhexidine scrub Local Anesthetic: lidocaine 1% Amount of anesthesia used (mL): 2 Ultrasound Used for Placement: Yes Central Line Lumen Inserted: triple Post Procedure: sutured in place, good blood return, all ports aspirated, flushed, capped and sterile dressing applied Post Procedure X-Ray: tip of catheter in good position and no pneumothorax seen Patient Tolerated Procedure: well and no complications Complications: none Medical Decision Making Medical Decision Making MDM Narrative: 72-YEAR-OLD FEMALE WITH HISTORY AND CLINICAL PRESENTATION, DDX: DVT, PE, no evidence to suggest cellulitis. I reviewed all investigations to include prior imaging studies conducted as an outpatient which demonstrate DVT from left proximal femoral down into distal calf, I received a call from lab notifying me that patient has a troponin -665.8 and given the patient had complaints of chest pain concerning for possible association with pulmonary embolism as there are no acute cardiac changes to better explain the significant troponin elevation. There is no QUIN and electrolytes are grossly to within normal limits. EKG does not demonstrate any ST elevations or pathognomonic findings of PE. Will be starting patient on heparin drip, also consult id with Dr. Siddiqi of vascular surgery to notify him regarding the proximal femoral clot. In addition, have discussed with inpatient hospitalist who accepts admission. Hematologic indices are significant for what appears to be a stress leukocytosis as there is no left shift, no anemia in no thrombocytopenia. BNP is within normal limits. 2215: Central line placed in the right IJ, awaiting x-ray confirmation and known will proceed with CT angio for PE protocol. Second troponin was also sent. 2232: Prelim chest x-ray read by me demonstrates good position of the right IJ central line and no evidence to suggest pneumothorax. Inpatient hospitalist accepts admission. CT angio for PE protocol is pending I did communicate the increase in patient's high sensitivity troponin as well as the pending radiology read for the CT angio for PE. Patient is hemodynamically stable. Differential Diagnosis Differential Diagnoses: The differential diagnosis associated with the presentation includes Please see the discussion above Admission/Observation Consideration of admission/observation: Escalation of care including admission/observation considered Please see the discussion above Consult Healthcare Provider Management of the patient was discussed with: Business Communications Instructor Please see discussion above Lab Data MDM Lab Attestation statement: I reviewed the patient's lab results. Please see discussion above 12/24/22 19:00 12/24/22 19:00 Labs: Lab Results 12/24/22 12/24/22 12/24/22 Range/Units 19:00 19:00 19:00 WBC RBC Hgb Hct MCV MCH MCHC RDW Plt Count MPV Immature Gran % (Auto) (0.0-0.4) % Neut % (Auto) (45-73) % Lymph % (Auto) (20-40) % [place] % (Auto) (2-11) % Eos % (Auto) (0-4) % Baso % (Auto) (0-2) % Lymph # (Auto) (1.2-4.9) X10*3/uL [place] # (Auto) (0.1-1.2) X10*3/uL Eos # (Auto) (0.0-0.4) X10*3/uL Baso # (Auto) (0.0-0.2) X10*3/uL Abs Immat Gran (auto) (0.00-0.03) X10*3/uL Absolute Neuts (auto) (2.0-8.3) x10*3/uL Absolute Nucleated RBC Nucleated RBC % (auto) PT (11.1-13.3) SEC INR (0.9-1.1) APTT (26.0-36.4) SEC Sodium 141 (135-145) mmol/L Potassium 4.3 (3.3-5.1) mmol/L Chloride 107 (96-108) mmol/L Carbon Dioxide 21 L (22-29) mmol/L Anion Gap 17 (12-20) BUN 20 H (9-16) mg/dL Creatinine 1.29 (0.5-1.4) mg/dL Estim Creat Clear Calc 37.5 Estimated GFR 40 Random Glucose 139 H (60-115) mg/dL Calcium 9.7 (8.4-10.2) mg/dL Total Bilirubin 0.3 (0.0-1.0) mg/dL AST 22 (5-31) U/L ALT 20 (0-31) U/L Alkaline Phosphatase 74 (39-117) U/L Troponin I High Sens 665.8 H* D (<3.5-17.0) ng/L B-Natriuretic Peptide 69 (<100) pg/mL Total Protein 7.8 (6.5-8.0) g/dL Albumin 4.1 (3.5-5.0) g/dL 12/24/22 12/24/22 12/24/22 Range/Units 20:09 20:27 20:27 WBC Cancelled 13.7 H RBC Cancelled 4.14 L Hgb Cancelled 12.1 Hct Cancelled 36.7 L MCV Cancelled 88.6 MCH Cancelled 29.2 MCHC Cancelled 33.0 RDW Cancelled 13.2 Plt Count Cancelled 253 MPV Cancelled 10.4 Immature Gran % (Auto) 0.4 (0.0-0.4) % Neut % (Auto) 67.5 (45-73) % Lymph % (Auto) 23.5 (20-40) % [place] % (Auto) 6.2 (2-11) % Eos % (Auto) 2.0 (0-4) % Baso % (Auto) 0.4 (0-2) % Lymph # (Auto) 3.2 (1.2-4.9) X10*3/uL [place] # (Auto) 0.9 (0.1-1.2) X10*3/uL Eos # (Auto) 0.3 (0.0-0.4) X10*3/uL Baso # (Auto) 0.1 (0.0-0.2) X10*3/uL Abs Immat Gran (auto) 0.05 H (0.00-0.03) X10*3/uL Absolute Neuts (auto) 9.3 H (2.0-8.3) x10*3/uL Absolute Nucleated RBC Cancelled 0.000 Nucleated RBC % (auto) Cancelled 0.0 PT 11.6 (11.1-13.3) SEC INR 1.0 (0.9-1.1) APTT 24.1 L (26.0-36.4) SEC Sodium (135-145) mmol/L Potassium (3.3-5.1) mmol/L Chloride (96-108) mmol/L Carbon Dioxide (22-29) mmol/L Anion Gap (12-20) BUN (9-16) mg/dL Creatinine (0.5-1.4) mg/dL Estim Creat Clear Calc Estimated GFR Random Glucose (60-115) mg/dL Calcium (8.4-10.2) mg/dL Total Bilirubin (0.0-1.0) mg/dL AST (5-31) U/L ALT (0-31) U/L Alkaline Phosphatase (39-117) U/L Troponin I High Sens (<3.5-17.0) ng/L B-Natriuretic Peptide (<100) pg/mL Total Protein (6.5-8.0) g/dL Albumin (3.5-5.0) g/dL 12/24/22 Range/Units 22:22 WBC RBC Hgb Hct MCV MCH MCHC RDW Plt Count MPV Immature Gran % (Auto) (0.0-0.4) % Neut % (Auto) (45-73) % Lymph % (Auto) (20-40) % [place] % (Auto) (2-11) % Eos % (Auto) (0-4) % Baso % (Auto) (0-2) % Lymph # (Auto) (1.2-4.9) X10*3/uL [place] # (Auto) (0.1-1.2) X10*3/uL Eos # (Auto) (0.0-0.4) X10*3/uL Baso # (Auto) (0.0-0.2) X10*3/uL Abs Immat Gran (auto) (0.00-0.03) X10*3/uL Absolute Neuts (auto) (2.0-8.3) x10*3/uL Absolute Nucleated RBC Nucleated RBC % (auto) PT (11.1-13.3) SEC INR (0.9-1.1) APTT (26.0-36.4) SEC Sodium (135-145) mmol/L Potassium (3.3-5.1) mmol/L Chloride (96-108) mmol/L Carbon Dioxide (22-29) mmol/L Anion Gap (12-20) BUN (9-16) mg/dL Creatinine (0.5-1.4) mg/dL Estim Creat Clear Calc Estimated GFR Random Glucose (60-115) mg/dL Calcium (8.4-10.2) mg/dL Total Bilirubin (0.0-1.0) mg/dL AST (5-31) U/L ALT (0-31) U/L Alkaline Phosphatase (39-117) U/L Troponin I High Sens 859.0 H* (<3.5-17.0) ng/L B-Natriuretic Peptide (<100) pg/mL Total Protein (6.5-8.0) g/dL Albumin (3.5-5.0) g/dL Independent Interpretation I performed an independent interpretation of an: EKG Interpretation: Normal sinus rhythm, HR-76, no STEMI, OR/QRS/QTC are within normal limits, there are nonspecific ST abnormalities. Radiology Impression Radiologist Impression: Venous duplex demonstrates a DVT from the left proximal femoral vein extending distally into the calf veins. On chest x-ray there is no evidence of pneumonia or pneumothorax, otherwise my interpretation is in agreement with radiology's impression. External Record Review External record reviewed: Outpatient record and Prior outpatient labs Chronic Conditions Patient?s care impacted by: Hypertension Critical Care Time Critical Care Time Critical Care Time: Yes Total Critical Care Time: 30 Attestation: I personally attest to this time spent taking care of the patient. Discharge Plan Discharge Clinical Impression: DVT (deep venous thrombosis), Non-STEMI (non-ST elevated myocardial infarction) Patient Disposition: Admitted As Inpatient
--- NOTE | 2022-12-24 14:00 | ECG_ITS ---
Test Reason : SOB/BLOOD CLOT? Blood Pressure : / mmHG Vent. Rate : 076 BPM Atrial Rate : 076 BPM P-R Int : 122 ms QRS Dur : 072 ms QT Int : 420 ms P-R-T Axes : 028 -47 -09 degrees QTc Int : 472 ms Normal sinus rhythm Left axis deviation Nonspecific ST abnormality Abnormal ECG When compared with ECG of 22-OCT-2022 15:41, No significant change was found Referred By: Kristen Balderas Electronically Signed By:AVE JIMENEZ
[2022-12-24 14:19] VITALS: BP 138/71; PULSE 78; RESP 17; TEMP 36.7; O2SAT 95; BMI 37.5
--- OUTSIDE RECORDS SUMMARY | 2022-12-24 18:05 | XMS_ITS ---
Author Name Chinedu Jaramillo Address [address] [place] [address] Organization Chinedu Jaramillo III, MD Address [address] [place] [address] Care Team Providers Care Firer Bisque Kiln Name Role Phone Chinedu Jaramillo [facility] [phone] PROBLEMS Type Condition ICD9-CM Code ASQ69-YM Code Onset Dates Condition Status SNOMED Code Problem De Quervain's disease (radial styloid tenosynovitis) M65.4 Active 81485642 Problem Malignant neoplasm of upper-outer quadrant of right female breast C50.411 Active 129907068 Problem Essential hypertension I10 Active 23763676 Problem Hyperlipidemia, unspecified E78.5 Active 87444124 Problem DJD (degenerative joint disease) M19.90 Active 051014117 Problem Osteoporosis M81.0 Active 72714262 Problem Depressive disorder, not elsewhere classified F32.9 Active 71365793 Problem Lumbago with sciatica, left side M54.42 Active 91980311 Problem Unspecified asthma, uncomplicated J45.909 Active 820639459 Problem Angiomyolipoma D17.9 Active 83490456 Problem Acute low back pain due to trauma M54.5 Active 559334701 Problem Malignant neoplasm of unspecified site of left female breast C50.912 Active 316642652 Problem Obesity (BMI 30-39.9) E66.9 Active 762603005 ALLERGIES No Known Allergies ENCOUNTERS Encounter Location Date Diagnosis Chinedu Jaramillo III, MD [address] [place] [address] [place] [address] September, Hyperlipidemia, unspecified E78.5 ; Essential hypertension I10 ; Depressive disorder, not elsewhere classified F32.9 ; Unspecified asthma, uncomplicated J45.909 ; Malignant neoplasm of upper-outer quadrant of right female breast C50.411 ; Malignant neoplasm of unspecified site of left female breast C50.912 ; Obesity (BMI 30-39.9) E66.9 and Osteoporosis M81.0 Chinedu Jaramillo III, MD [address] [place] [address] [place] [address] Jul, Hyperlipidemia, unspecified E78.5 ; Essential hypertension I10 ; Depressive disorder, not elsewhere classified F32.9 ; Unspecified asthma, uncomplicated J45.909 ; Malignant neoplasm of upper-outer quadrant of right female breast C50.411 ; Malignant neoplasm of unspecified site of left female breast C50.912 ; Obesity (BMI 30-39.9) E66.9 and Osteoporosis M81.0 Chinedu Jaramillo III, MD [address] [place] [address] [place] [address] Apr, Malignant neoplasm of upper-outer quadrant of right female breast C50.411 ; Malignant neoplasm of unspecified site of left female breast C50.912 ; Hyperlipidemia, unspecified E78.5 ; Essential hypertension I10 ; Depressive disorder, not elsewhere classified F32.9 ; Obesity (BMI 30-39.9) E66.9 and Osteoporosis M81.0 Chinedu Jaramillo III, MD [address] [place] [address] [place] [address] Mar, Chinedu Jaramillo III, MD [address] [place] [address] [place] [address] Mar, Chinedu Jaramillo III, MD [address] [place] [address] [place] [address] Feb, Malignant neoplasm of upper-outer quadrant of right female breast C50.411 ; Malignant neoplasm of unspecified site of left female breast C50.912 ; Unspecified asthma, uncomplicated J45.909 ; Depressive disorder, not elsewhere classified F32.9 ; Essential hypertension I10 ; Hyperlipidemia, unspecified E78.5 ; Obesity (BMI 30-39.9) E66.9 and Osteoporosis M81.0 Chinedu Jaramillo III, MD [address] [place] [address] [place] [address] Feb, Malignant neoplasm of upper-outer quadrant of [...] and Osteoporosis M81.0 Chinedu Jaramillo III, MD [address] [place] [address] [place] [address] Aug, Malignant neoplasm of upper-outer quadrant of right female breast C50.411 ; Malignant neoplasm of unspecified site of left female breast C50.912 ; Lumbago with sciatica, left side M54.42 ; Other chronic pain G89.29 ; Unspecified asthma, uncomplicated J45.909 ; Depressive disorder, not elsewhere classified F32.9 and Essential hypertension I10 Chinedu Jaramillo III, MD [address] [place] [address] [place] [address] Jun, Malignant neoplasm of upper-outer quadrant of right female breast C50.411 ; Malignant neoplasm of unspecified site of left female breast C50.912 ; Obesity (BMI 30-39.9) E66.9 ; Osteoporosis M81.0 ; Chronic obstructive pulmonary disease, unspecified J44.9 ; Depressive disorder, not elsewhere classified F32.9 and Essential hypertension I10 Chinedu Jaramillo III, MD [address] [place] [address] [place] [address] Nov, Chinedu Jaramillo III, MD [address] [place] [address] [place] [address] Nov, Malignant neoplasm of upper-outer quadrant of [...] and Osteoporosis M81.0 Chinedu Jaramillo III, MD [address] [place] [address] [place] [address] September, Malignant neoplasm of unspecified site of left female breast C50.912 ; Osteoporosis M81.0 ; Hyperlipidemia, unspecified E78.5 ; Essential hypertension I10 ; Depressive disorder, not elsewhere classified F32.9 and Unspecified asthma, uncomplicated J45.909 Chinedu Jaramillo III, MD [address] [place] [address] [place] [address] Dec, Malignant neoplasm of unspecified site of left female breast C50.912 Chinedu Jaramillo III, MD [address] [place] [address] [place] [address] Dec, Malignant neoplasm of upper-outer quadrant of right female breast C50.411 and Malignant neoplasm of unspecified site of left female breast C50.912 Chinedu Jaramillo III, MD [address] [place] [address] [place] [address] Jul, Malignant neoplasm of upper-outer quadrant of right female breast C50.411 ; Malignant neoplasm of unspecified site of left female breast C50.912 ; Hyperlipidemia, unspecified E78.5 ; Essential hypertension I10 and Depressive disorder, not elsewhere classified F32.9 Chinedu Jaramillo III, MD [address] [place] [address] [place] [address] May, Breast calcifications R92.1 Chinedu Jaramillo III, MD [address] [place] [address] [place] [address] Feb, Malignant neoplasm of upper-outer quadrant of [...] (BMI 30-39.9) E66.9 Chinedu Jaramillo III, MD [address] [place] [address] [place] [address] Oct, Malignant neoplasm of upper-outer quadrant of [...] joint disease) M19.90 Chinedu Jaramillo III, MD [address] [place] [address] [place] [address] Jun, Chinedu Jaramillo III, MD [address] [place] [address] [place] [address] Jun, Malignant neoplasm of upper-outer quadrant of right female breast C50.411 ; Urinary tract infection without hematuria, site unspecified N39.0 ; Essential hypertension I10 ; Depressive disorder, not elsewhere classified F32.9 ; Unspecified asthma, uncomplicated J45.909 and Obesity (BMI 30-39.9) E66.9 Chinedu Jaramillo III, MD [address] [place] [address] [place] [address] Feb, Malignant neoplasm of upper-outer quadrant of right female breast C50.411 ; Malignant neoplasm of unspecified site of left female breast C50.912 ; Depressive disorder, not elsewhere classified F32.9 ; Unspecified asthma, uncomplicated J45.909 and Chronic obstructive pulmonary disease, unspecified J44.9 Chinedu Jaramillo III, MD [address] [place] [address] [place] [address] Nov, Malignant neoplasm of upper-outer quadrant of right female breast C50.411 ; Malignant neoplasm of unspecified site of left female breast C50.912 ; Acute low back pain due to trauma M54.5 ; Depressive disorder, not elsewhere classified F32.9 ; Unspecified asthma, uncomplicated J45.909 ; Chronic obstructive pulmonary disease, unspecified J44.9 and Obesity (BMI 30-39.9) E66.9 Chinedu Jaramillo III, MD [address] [place] [address] [place] [address] Nov, Chinedu Jaramillo III, MD [address] [place] [address] [place] [address] September, Malignant neoplasm of upper-outer quadrant of right female breast C50.411 and Malignant neoplasm of unspecified site of left female breast C50.912 Chinedu Jaramillo III, MD [address] [place] [address] [place] [address] Apr, Malignant neoplasm of upper-outer quadrant of right female breast C50.411 ; Malignant neoplasm of unspecified site of left female breast C50.912 ; Obesity, unspecified E66.9 ; Essential hypertension I10 ; Hyperlipidemia, unspecified E78.5 ; Depressive disorder, not elsewhere classified F32.9 and Chronic obstructive pulmonary disease, unspecified J44.9 Chinedu Jaramillo III, MD [address] [place] [address] [place] [address] Dec, Chinedu Jaramillo III, MD [address] [place] [address] [place] [address] Oct, Malignant neoplasm of upper-outer quadrant of right female breast C50.411 ; Malignant neoplasm of unspecified site of left female breast C50.912 ; Obesity, unspecified E66.9 and Acute low back pain due to trauma M54.5 Chinedu Jaramillo III, MD [address] [place] [address] [place] [address] Jun, Malignant neoplasm of upper-outer quadrant of right female breast C50.411 ; Malignant neoplasm of unspecified site of left female breast C50.912 and Obesity, unspecified E66.9 Chinedu Jaramillo III, MD [address] [place] [address] [place] [address] Feb, Malignant neoplasm of upper-outer quadrant of right female breast C50.411 ; Chronic obstructive pulmonary disease, unspecified J44.9 ; Obesity, unspecified E66.9 and Malignant neoplasm of unspecified site of left female breast C50.912 Chinedu Jaramillo III, MD [address] [place] [address] [place] [address] Oct, Chinedu Jaramillo III, MD [address] [place] [address] [place] [address] Aug, Chinedu Jaramillo III, MD [address] [place] [address] [place] [address] Aug, Malignant neoplasm of upper-outer quadrant of right female breast C50.411 Chinedu Jaramillo III, MD [address] [place] [address] [place] [address] May, Malignant neoplasm of upper-outer quadrant of right female breast C50.411 ; Obesity, unspecified E66.9 and Chronic obstructive pulmonary disease, unspecified J44.9 Chinedu Jaramillo III, MD [address] [place] [address] [place] [address] Oct, Breast cancer 174.9 and Breast density 611.79 Chinedu Jaramillo III, MD [address] [place] [address] [place] [address] Dec, Chinedu Jaramillo III, MD [address] [place] [address] [place] [address] Dec, Breast cancer 174.9 and Obesity 278.00 Chinedu Jaramillo III, MD [address] [place] [address] [place] [address] Jun, Breast cancer 174.9 and Obesity 278.00 Chinedu Jaramillo III, MD [address] [place] [address] [place] [address] Dec, Chinedu Jaramillo III, MD [address] [place] [address] [place] [address] Aug, Chinedu Jaramillo III, MD [address] [place] [address] [place] [address] Jul, Chinedu Jaramillo III, MD [address] [place] [address] [place] [address] Apr, Breast cancer 174.9 ; Depression 311 ; 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 ; HTN (hypertension) 401.9 ; COPD (chronic obstructive pulmonary disease) 496 and Hyperlipemia 272.4 Chinedu Jaramillo III, MD [address] [place] [address] [place] [address] Apr, Chinedu Jaramillo III, MD [address] [place] [address] [place] [address] Mar, Breast cancer 174.9 Chinedu Jaramillo III, MD [address] [place] [address] [place] [address] Feb, Chinedu Jaramillo III, MD [address] [place] [address] [place] [address] Feb, Breast cancer 174.9 ; Depression 311 ; 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 ; HTN (hypertension) 401.9 ; COPD (chronic obstructive pulmonary disease) 496 ; Hyperlipemia 272.4 and Angiomyolipoma of kidney 223.0 Chinedu Jaramillo III, MD [address] [place] [address] Feb, Chinedu Jaramillo III, MD [address] [place] [place] [address] Jan, Hydronephrosis 591 and Breast cancer 174.9 Chinedu Jaramillo III, MD [address] [place] [address] [place] [address] Jan, Chinedu Jaramillo III, MD [address] [place] [address] [place] [address] Jan, Breast cancer 174.9 and Breast pain 611.71 Chinedu Jaramillo III, MD [address] [place] [address] [place] [address] Jan, Chinedu Jaramillo III, MD [address] [place] [address] [place] [address] Jan, Chinedu Jaramillo III, MD [address] [place] [address] [place] [address] Dec, Chinedu Jaramillo III, MD [address] [place] [address] [place] [address] Dec, Breast cancer 174.9 Chinedu Jaramillo III, MD [address] [place] [address] [place] [address] Dec, Chinedu Jaramillo III, MD [address] [place] [address] [place] [address] Nov, Chinedu Jaramillo III, MD [address] [place] [address] [place] [address] September, Chinedu Jaramillo III, MD [address] [place] [address] [place] [address] September, Chinedu Jaramillo III, MD [address] [place] [address] [place] [address] Jun, Chinedu Jaramillo III, MD [address] [place] [address] [place] [address] Jun, Chinedu Jaramillo III, MD [address] [place] [address] [address] [place] [address] May, Chinedu Jaramillo III, MD [address] [place] [address] [address] [place] [address] Dec, IMMUNIZATIONS Vaccine Route Administration Date Status [...] 0.2 NRBC Abs Auto 0.000 0.0-0.012 Comprehensive [place]. Panel Fast 2020-11-04 Sodium 140 135-145 Potassium [...] breast cancer, breast cancer, record released to [facility], breast cancer, breast cancer, breast cancer, breast [...] [address] ATTN CLAIMS ALLI MOURA [address] [facility] self Beatriz Herbert [id number] [phone]
--- NOTE | 2022-12-24 19:12 | PC.NURSE ---
2 unsuccessful attempts to get an IV on patient, labs sent.
[2022-12-24 19:13] VITALS: BP 154/76; PULSE 84; RESP 20; O2SAT 94
[2022-12-24 19:27] LABS: Alanine Aminotransferase 20 U/L (0-31); Albumin Level 4.1 g/dL (3.5-5.0); Alkaline Phosphatase 74 U/L (39-117); Anion Gap 17 (12-20); Aspartate Amino Transferase 22 U/L (5-31); Bilirubin Total 0.3 mg/dL (0.0-1.0); Blood Urea Nitrogen 20 mg/dL (9-16); Calcium 9.7 mg/dL (8.4-10.2); Carbon Dioxide 21 mmol/L (22-29); Chloride 107 mmol/L (96-108); Creatinine Clr Calc Pharmacy 37.5; Estimated Glomerular Filt Rate 40; Glucose Random 139 mg/dL (60-115); Potassium 4.3 mmol/L (3.3-5.1); Sodium 141 mmol/L (135-145); Total Protein 7.8 g/dL (6.5-8.0)
[2022-12-24 19:33] LABS: Troponin-I High Sensitivity 665.8 ng/L (<3.5-17.0)
[2022-12-24 19:41] VITALS: BMI 36.7
[2022-12-24 19:57] LABS: B Type Natriuretic Peptide 69 pg/mL (<100)
[2022-12-24] MEDS: Heparin Sodium,Porcine 5,000 UNIT/ML VIAL 6800 UNIT IVPUSH (20:29)
[2022-12-24] MEDS: Heparin Sodium,Porcine/1/2NS 25,000 UNIT/250 ML IV.SOLN 11.94 UNIT IVCONT (20:35)
[2022-12-24 20:37] LABS: Basophils Absolute Auto 0.1 X10*3/uL (0.0-0.2); Basophils Percent Auto 0.4 % (0-2); Eosinophils Absolute Auto 0.3 X10*3/uL (0.0-0.4); Hematocrit 36.7 % (37.0-47.0); Hemoglobin 12.1 g/dl (12.0-16.0); Imm Gran Abs Auto 0.05 X10*3/uL (0.00-0.03); Imm Gran Pct Auto 0.4 % (0.0-0.4); Lymphocytes Absolute Auto 3.2 X10*3/uL (1.2-4.9); Lymphocytes Percent Auto 23.5 % (20-40); Mean Corpuscular Hemoglobin 29.2 pg (27.0-33.0); Mean Corpuscular Volume 88.6 fL (80.0-98.0); Mean Platelet Volume 10.4 fL (9.4-12.3); Monocytes Absolute Auto 0.9 X10*3/uL (0.1-1.2); Monocytes Percent Auto 6.2 % (2-11); Neutrophils Absolute Auto 9.3 x10*3/uL (2.0-8.3); Neutrophils Percent Auto 67.5 % (45-73); Platelet Count 253 X10*3/uL (160-400); Red Blood Count 4.14 X10*6/uL (4.20-5.50); Red Cell Distribution Width 13.2 % (11.0-16.0); White Blood Count 13.7 X10*3/uL (4.8-10.8)
[2022-12-24 20:46] LABS: Prothrombin Time 11.6 SEC (11.1-13.3)
--- NOTE | 2022-12-24 20:55 | PHA.MEDREC ---
Pharmacy Consult ? Medication Reconciliation Pharmacy has completed the medication reconciliation. Patient's daughter confirmed medicaitons. Reports no longer taking furosemide or mirtazepine. Reports that today patient was told to stop pen VK due to renal function and side effects. Patient was on it because of cellulitis with breast cancer treatment.
[2022-12-24 21:18] LABS: Partial Thromboplastin Time 24.1 SEC (26.0-36.4)
[2022-12-24 21:32] LABS: MANUAL DIFF FLAG NO
[2022-12-24] MEDS: Acetaminophen 325 MG TABLET 975 MG PO (23:05)
--- NOTE | 2022-12-24 23:06 | MHC.EDTECH ---
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
[2022-12-24] MEDS: iohexoL 350 MG/ML 100 ML INFUS..BTL 65 ML IV (23:36)
[2022-12-25] VITALS (8 sets, daily range): BP systolic 120–148; BP diastolic 65–79; PULSE 71–89; RESP 17–20; TEMP 36–36.9; O2SAT 94–98
--- NOTE | 2022-12-25 00:39 | PM.IMHP ---
History of Present Illness Date of Service: 12/25/22 Chief Complaint: Dyspnea This is a 72-year-old female with pertinent history of mood disorder, dementia, essential hypertension, gastroesophageal reflux disease, peripheral neuropathy, history of breast cancer status post mastectomy who was sent from ultrasound for treatment of left leg DVT. Patient states she has been having left leg swelling and pain that has been ongoing for the past 3 days. Worse with ambulation. Also complains of dyspnea, worse with exertion and pleuritic chest discomfort. No cough, fevers and chills. Patient went for ultrasound which showed DVT and she was sent to the ER. Does have personal history of breast cancer. No history of blood clots in the past. She denies palpitations, abdominal pain, changes in urinary or bowel habits. In the emergency department, imaging with bilateral PE Review of Systems Constitutional: Constitutional: Reports fatigue Cardiovascular: Cardiovascular: Reports dyspnea on exertion Respiratory: Respiratory: Reports pain on inspiration and Reports dyspnea on exertion Gastrointestinal: Gastrointestinal: Reports no additional gastrointestinal complaints Genitourinary: Genitourinary: Reports no additional female genitourinary complaints Endocrine: Endocrine: Reports fatigue PMFSH Medical History Arthritis Asthma Cellulitis of breast Depression Diabetes 1.5, managed as type 2 GERD (gastroesophageal reflux disease) HTN (hypertension) IBS (irritable bowel syndrome) 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 malignant neoplasm of right breast Seroma Traumatic complete tear of right rotator cuff Family History Father Heart problem Mother Heart disease Hypertension Colon cancer Epilepsy Maternal Grandmother Esophageal cancer Daughter Breast cancer Brother Lung cancer Sister Breast cancer Sister Breast cancer, Onset Age: 60 Sister COVID Daughter Acute kidney failure Surgical History History of bilateral mastectomy (02/19/22) History of colonoscopy History of esophagogastroduodenoscopy (EGD) History of lumbar fusion History of lumpectomy of both breasts History of surgery Hx of appendectomy Hx of blepharoplasty Hx of cholecystectomy S/P bilateral mastectomy S/P [id number] (total abdominal hysterectomy and bilateral salpingo-oophorectomy) Social History Household Members: None Housing: Apartment Are you a primary physician locums urgent care to a significant other at home: No Do you presently have visiting nurse or other home services: Yes Alcohol intake: never Patient Tobacco Use Status: Never used Tobacco Smoked in Last 30 Days: No e-Cigarette/Vaping Use: Never Used Second Hand Smoke Exposure: No Use of substances other than those prescribed or required for medical reasons: No Advance Directives: Yes Advance Directives on File: Yes Advance Directives Date on File: 09/26/21 service: No Current occupational status: disabled 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) Hearing needs: No Vision needs: Yes Meds Allergies Allergy/AdvReac Type Severity Reaction Status Date / Time No Known Allergies Allergy Verified 12/24/22 11:52 [No Known Allergies*] Active Medications: Current Medications Heparin Sodium (Porcine) (Heparin Sodium,Porcine 5,000 Unit/Ml Vial) 3,400 unit 40 unit/kg (3400 unit) IVPUSH PROTOCOL BOLUS PRN; Protocol PRN Reason: 40 unit/kg - Heparin Protocol Heparin Sodium (Porcine) (Heparin Sodium,Porcine 5,000 Unit/Ml Vial) 6,800 unit 80 unit/kg (6800 unit) IVPUSH PROTOCOL BOLUS PRN; Protocol PRN Reason: 80 unit/kg - Heparin Protocol Heparin Sodium/Sodium Chloride (Heparin Sodium,Porcine/1/2ns) 25,000 unit in 250 mls @ 0 mls/hr IVCONT .Q0M MARINA; Protocol Last Admin: 12/24/22 20:35 Dose: 14 units/kg/hr, 11.94 mls/hr Pharmacy Consult (Consult Rx Perform Med Rec) 1 each MISCELLANE ONCE PRN PRN Reason: Consult order Home Medications Medication Instructions Recorded Confirmed Last Taken Type citalopram 20 mg tablet 1 tab PO DAILY 05/05/22 12/24/22 12/24/22 History albuterol sulfate 90 mcg/actuation 1 puff PO QID PRN Shortness Of 12/24/22 12/24/22 Unknown History aerosol inhaler Breath amitriptyline 10 mg tablet 20 mg PO BEDTIME PRN Insomnia 12/24/22 12/24/22 Unknown History cyclobenzaprine 5 mg tablet 10 mg PO TID PRN Muscle Spasm 12/24/22 12/24/22 Unknown History oxycodone 10 mg tablet 10 mg PO Q8H PRN Pain 12/24/22 12/24/22 Unknown History Physical Exam Vital Signs and Narrative: Vital Signs: Last Vital Signs Temp 98.1 F 12/24/22 14:19 Pulse 78 12/24/22 14:19 Resp 17 12/24/22 14:19 BP 138/71 12/24/22 14:19 Pulse Ox 95 12/24/22 14:19 O2 Del Method Room Air 12/24/22 14:19 BMI result Body Mass Index 36.7 Elderly female lying in bed in no distress Neck supple, no JVD Regular rate and rhythm, S1-S2 heard Regular breath sounds bilaterally, no wheezing or crackles appreciated Abdomen soft nontender, no guarding, no rigidity Patient is awake, alert and oriented to self, place, time and person ; no focal motor deficit Psych: Normal mood Extremity: Left leg swelling and tenderness present Results Labs 12/24/22 20:27 12/24/22 19:00 Labs: Laboratory Results - last 24 hr 12/24/22 12/24/22 12/24/22 19:00 19:00 20:09 MCV Cancelled MCH Cancelled MCHC Cancelled RDW Cancelled Plt Count Cancelled MPV Cancelled Immature Gran % (Auto) Neut % (Auto) Lymph % (Auto) Coles % (Auto) Eos % (Auto) Baso % (Auto) Lymph # (Auto) Coles # (Auto) Eos # (Auto) Baso # (Auto) Abs Immat Gran (auto) Absolute Neuts (auto) Absolute Nucleated RBC Cancelled Nucleated RBC % (auto) Cancelled PT INR APTT Anion Gap 17 Estim Creat Clear Calc 37.5 Estimated GFR 40 Random Glucose 139 H Calcium 9.7 Total Bilirubin 0.3 AST 22 ALT 20 Alkaline Phosphatase 74 B-Natriuretic Peptide 69 Total Protein 7.8 Albumin 4.1 12/24/22 12/24/22 20:27 20:27 MCV 88.6 MCH 29.2 MCHC 33.0 RDW 13.2 Plt Count 253 MPV 10.4 Immature Gran % (Auto) 0.4 Neut % (Auto) 67.5 Lymph % (Auto) 23.5 Coles % (Auto) 6.2 Eos % (Auto) 2.0 Baso % (Auto) 0.4 Lymph # (Auto) 3.2 Coles # (Auto) 0.9 Eos # (Auto) 0.3 Baso # (Auto) 0.1 Abs Immat Gran (auto) 0.05 H Absolute Neuts (auto) 9.3 H Absolute Nucleated RBC 0.000 Nucleated RBC % (auto) 0.0 PT 11.6 INR 1.0 APTT 24.1 L Anion Gap Estim Creat Clear Calc Estimated GFR Random Glucose Calcium Total Bilirubin AST ALT Alkaline Phosphatase B-Natriuretic Peptide Total Protein Albumin Imaging Radiologist's Impressions: Impressions Chest X-Ray 12/24/22 14:46 IMPRESSION: No acute pulmonary findings. Persistent elevation of the right hemidiaphragm. Chest X-Ray 12/24/22 22:31 IMPRESSION: 1. Right IJ CVC tip projects at the level of the cavoatrial junction. No pneumothorax. 2. Unchanged prominence of the cardiomediastinal silhouette as well as elevation of the right hemidiaphragm. Assessment and Plan (1) Pulmonary emboli: Status: Acute (2) DVT (deep venous thrombosis): Status: Acute (3) Non-STEMI (non-ST elevated myocardial infarction): Status: Acute Plan This is a 72-year-old female with pertinent history of mood disorder, dementia, essential hypertension, gastroesophageal reflux disease, peripheral neuropathy, history of breast cancer status post mastectomy who was sent from ultrasound for treatment of left leg DVT. #. Acute sub-massive bilateral PE #. Acute left leg DVT -IV heparin initiated. Vascular surgery was consulted from the ER, appreciate assistance. Obtaining echo. Will need outpatient Heme-Onc for follow-up #. NSTEMI. On IV heparin as above. Consulting Cardiology and echo pending. Aspirin given in the ER #. Essential hypertension. Continue home antihypertensives #. Mood disorder. Continue home mood stabilizers #. Dementia. On memantine. Maintain sleep-wake cycle #. Gastroesophageal reflux disease. On PPI Med rec pending DVT prophylaxis: IV heparin Full code Cardiac diet Admit as inpatient and will require two night minimum hospital stay for IV heparin Time Spent With Patient Time: Total time managing care of this patient today ____ minutes. Quality Stroke Does the patient have a stroke diagnosis?: No VTE Prior VTE?: No VTE Risk Level:: Medical - moderate - high VTE Device Contraindication: Treatment Not Indicated VTE Drug Contraindication: N/A - Med Ordered
[2022-12-25 02:20] LABS: PTT Heparin Drip 63.7 SEC (53-77.9)
--- NOTE | 2022-12-25 02:44 | PC.NURSE ---
APTT 63.7, no change to heparin drip, continued on 14 u/kg. Next APTT due at 0830 am. [facility]
[2022-12-25] MEDS: Aspirin 81 MG TAB.CHEW PO (03:11)
[2022-12-25] MEDS: Gabapentin 400 MG CAPSULE 800 MG PO ×3 (03:55→22:33)
--- NOTE | 2022-12-25 04:31 | PC.NURSE ---
late entry: pt a&ox4, reports 8/10 intermittent chest pain, and left lower leg pain 3 days ago with difficulty breathing, pt reports pain is intermittent and describes it as shooting and burning. SpO2 95% on RA, RR 18, no apparent distress noted, lung sounds clear bilaterally, pt denies chest pain alexi. 2 unsuccessful ultrasound guided IV attempts by provider, 20G EJ was placed to left neck, and a central line placed to right side of neck. Heparin drip initiated per order. Pt is latvian speaking, granddaughters at bedside. pt assisted with bedpan.
[2022-12-25 05:36] LABS: MANUAL DIFF FLAG NO
[2022-12-25 05:37] LABS: Basophils Percent Auto 0.4 % (0-2); Eosinophils Absolute Auto 0.3 X10*3/uL (0.0-0.4); Eosinophils Percent Auto 2.4 % (0-4); Hematocrit 35.1 % (37.0-47.0); Hemoglobin 11.6 g/dl (12.0-16.0); Imm Gran Abs Auto 0.04 X10*3/uL (0.00-0.03); Imm Gran Pct Auto 0.4 % (0.0-0.4); Lymphocytes Absolute Auto 2.7 X10*3/uL (1.2-4.9); Lymphocytes Percent Auto 24.5 % (20-40); Mean Corpuscular Hemoglobin 29.2 pg (27.0-33.0); Mean Corpuscular Volume 88.4 fL (80.0-98.0); Mean Platelet Volume 10.5 fL (9.4-12.3); Monocytes Absolute Auto 0.7 X10*3/uL (0.1-1.2); Monocytes Percent Auto 6.5 % (2-11); Neutrophils Absolute Auto 7.3 x10*3/uL (2.0-8.3); Neutrophils Percent Auto 65.8 % (45-73); Platelet Count 263 X10*3/uL (160-400); Red Blood Count 3.97 X10*6/uL (4.20-5.50); Red Cell Distribution Width 13.2 % (11.0-16.0)
--- NOTE | 2022-12-25 05:45 | MHC.EDTECH ---
THIS TECH ASSIST THE PATIENT TO THE BEDSIDE RHODA PATENT IS A ONE ASSIST
[2022-12-25 05:57] LABS: Anion Gap 19 (12-20); Blood Urea Nitrogen 17 mg/dL (9-16); Calcium 8.8 mg/dL (8.4-10.2); Carbon Dioxide 16 mmol/L (22-29); Chloride 106 mmol/L (96-108); Creatinine Clr Calc Pharmacy 44.7; Estimated Glomerular Filt Rate 50; Glucose Random 159 mg/dL (60-115); Potassium 4.4 mmol/L (3.3-5.1); Sodium 137 mmol/L (135-145)
[2022-12-25 06:10] LABS: Troponin-I High Sensitivity 485.3 ng/L (<3.5-17.0)
--- NOTE | 2022-12-25 07:00 | CA_ITS ---
Transthoracic Echocardiogram Patient (Last, First, Middle): Beatriz Delgado, Gender: Female Date of : 1950 Age: 72 Procedure Date: 12/25/2022 Procedure Type: Transthoracic Echocardiogram Location: ER Height: 152.4 cm Weight: 85.28 kg BSA: 1.82 m2 Heart Rate: bpm BP: 132 / 76 mmHg Mill Operator: MARIANO Referring MD: Barron Brown MD Symptoms: NSTEMI/PE r/o R heart strain Study Quality: Adequate ECG Rhythm: Sinus Conclusions: - The left ventricular systolic function is normal. The calculated ejection fraction is 58% by biplane method. - Cannot exclude apical inferior hypokinesis. - No obvious valvular pathology seen on this study. - Mild pulmonary hypertension is present. Findings Left Ventricle Normal left ventricular cavity size. There is normal left ventricular wall thickness. The left ventricular systolic function is normal. The calculated ejection fraction is 58% by biplane method. Diastolic function is normal for age. Cannot exclude apical inferior hypokinesis. Right Ventricle Normal right ventricular cavity size. There is mildly decreased right ventricular systolic function. Atria Both atria are normal in size. Aortic Valve There is a normal trileaflet aortic valve. There is no aortic valve stenosis. There is no aortic valve regurgitation. Mitral Valve There is mild anterior mitral leaflet thickening. There is no mitral valve regurgitation. There is no mitral valve stenosis. Pulmonic Valve The pulmonic valve is likely normal. Tricuspid Valve There is mild tricuspid valve regurgitation. Mild pulmonary hypertension is present. Great Vessels The asc aorta is normal in size. Venous The inferior vena cava is normal in size and collapses greater than 50% with inspiration. Pericardium/Pleural There is a trivial pericardial effusion. Prior Study Comparison Changes noted compared to prior study dated: 09/28/2021. see comment on wall motion. Recommendations, Care & Conclusions No obvious valvular pathology seen on this study. Measurements 2D Linear Measurements IVSd: 0.92 0.6-0.9/0.6-1.0 cm LVIDd: 4.35 3.9-5.3/4.2-5.9 cm LVIDd Index: 2.39 2.4-3.2/2.2-3.1 cm/m2 LVIDs: 3.23 2.0-3.6 cm LVPWd: 1.01 0.7-1.1 cm LA Diam: 3.20 2.7-3.8/3.0-4.0 cm LAIDs Index: 1.76 1.5-2.3 cm/m2 LV Mass: 172.10 67-162/88-224 g LV Mass Index: 94.56 43-95/49-115 g/m2 LVOT Diam: 1.90 3.0+(-)1.3 cm 2D Systolic Function EF 4C: 53.10 >55% EF 2C: 62.30 >55% EF BiP: 58.20 >55% Mitral Valve MV Pk E: 0.71 MV PK A: 0.88 MV Decel Time: 288.00 E/A: 0.80 E'Lateral: 8.49 E'Medial: 8.16 E/E' Med: 8.70 E/E' Lat: 8.30 PHT: 84.00 MVA PHT: 2.62 Decel Simpson: 2.46 Aortic Valve AoV Pk Ayush: 1.43 AoV Mn Ayush: 0.93 AoV VTI: 0.27 AoV Pk Grad: 8.00 Aov Mn Grad: 4.00 ALLISON Cont.VTI: 2.01 LVOT LVOT Pk Ayush: 1.04 LVOT Mn Ayush: 0.74 LVOT VTI: 0.19 LVOT Pk Grad: 4.00 LVOT Mn Grad: 3.00 LVOT Diam: 1.90 LVOT Area: 2.84 Diastolic Function MV Pk E: 0.71 MV Pk A: 0.88 E/A: 0.80 E'Medial: 8.16 E/E' Med: 8.70 E' Laterial: 8.49 E/E' Lat: 8.30 Right Ventricle TAPSE (mm): 17.90 TVS' Ayush: 12.50 Tricuspid Valve TR Pk Ayush: 2.90 TR Pk Grad: 34.00 RA Press: 3.00 RVSP: 37.00 Great Vessels Aorta Sinus of Valsalva: 3.00 2.0-3.5 cm Ao Asc: 3.60 2.1-3.4 cm Pulmonary Valve PV Pk Ayush: 1.06 Peak PV Grad: 4.00 Updated in Other Vendor System with Status of Final Johnathan Rocha MD electronically signed on 12/25/2022 12:10:29 PM with status of Final
--- NOTE | 2022-12-25 08:24 | PC.NURSE ---
heparin infusing via central line at 14units/kg, labs obtained. pt speaking on cell phone in full clear sentences, no signs of distress. remains 97% on room air, respirations even and unlabored.
[2022-12-25 08:39] LABS: PTT Heparin Drip 108.4 SEC (53-77.9)
--- NOTE | 2022-12-25 08:47 | PC.NURSE ---
ptt resulted at 108.4, heparin drip paused at this time. repeat ptt in one hour.
[2022-12-25] MEDS: Escitalopram Oxalate 10 MG TABLET PO (09:08)
[2022-12-25] MEDS: Cholecalciferol (Vitamin D3) 25 MCG TABLET 50 MCG PO (09:08)
[2022-12-25] MEDS: Dicyclomine HCl 10 MG CAPSULE 20 MG PO ×3 (09:08→22:33)
[2022-12-25] MEDS: amLODIPine Besylate 10 MG TABLET PO (09:08)
[2022-12-25] MEDS: Metoprolol Tartrate 50 MG TABLET PO ×2 (09:08→22:33)
[2022-12-25] MEDS: Omeprazole 20 MG CAPSULE.DR PO (09:08)
--- NOTE | 2022-12-25 09:22 | P.CONCA_ITS ---
History of Present Illness History of Present Illness Date of Service: 12/25/22 Chief complaint: SOB Narrative: This is a cardiology consultation regarding elevated troponins. Patient has multiple comorbidities including history of breast cancer status post mastectomy, hypertension, dementia and others. Apparently, she was sent initially for ultrasound of left leg as she has been having some discomfort and heat in that area for the last several days. Some pleuritic type discomfort in the chest. Shortness of breath with activity. She has undergone workup which shows DVT as well as pulmonary embolism. In this context, troponins were checked and they were high and hence we have been asked to see her. Patient does not have any known cardiac issues like coronary disease or myocardial infarction or cardiomyopathy. She states that before all of this she was actually doing okay. Review of Systems Review of Systems: Yes all other systems are reviewed and are negative Constitutional: Constitutional: Reports as per HPI and Reports no additional constitutional complaints Eyes: Eyes: Reports as per HPI and Denies no additional eye complaints ENT: Denies system reviewed and no additional complaints, except as documented and Reports as per HPI Cardiovascular: Cardiovascular: Reports as per HPI, Reports no additional cardiovascular complaints, Denies acrocyanosis, Denies cool extremities, Denies chest pain, Denies leg edema, Denies lightheadedness, Denies palpitations and Reports dyspnea Respiratory: Respiratory: Reports as per HPI, Denies no additional respiratory complaints, Reports pain with cough and Reports dyspnea Gastrointestinal: Gastrointestinal: Reports as per HPI and Denies no additional gastrointestinal complaints Genitourinary: Genitourinary: Reports as per HPI Musculoskeletal: Musculoskeletal: Reports no additional musculoskeletal complaints and Reports as per HPI Integumentary/Breasts: Skin/Breast: Reports system reviewed and no additional complaints, except as docu Neurologic: Reports system reviewed and no additional complaints, except as documented and Reports as per HPI Psychiatric: Psychiatric: Reports no additional psychiatric complaints and Reports as per HPI Endocrine: Endocrine: Reports no additional endocrine complaints, Reports as per HPI and Denies palpitations Hematologic/Lymphatic: Hematologic/Lymphatic: Reports no additional hematologic/lymphatic complaints and Reports as per HPI Allergic/Immunologic: Allergic/Immunologic: Reports no additional allergic/immunologic complaints and Reports as per HPI [facility] Past Medical History Medical History Arthritis Asthma Cellulitis of breast Depression Diabetes 1.5, managed as type 2 GERD (gastroesophageal reflux disease) HTN (hypertension) IBS (irritable bowel syndrome) 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 malignant neoplasm of right breast Seroma Traumatic complete tear of right rotator cuff Family History Family History Father Heart problem Mother Heart disease Hypertension Colon cancer Epilepsy Maternal Grandmother Esophageal cancer Daughter Breast cancer Brother Lung cancer Sister Breast cancer Sister Breast cancer, Onset Age: 60 Sister COVID Daughter Acute kidney failure Surgical History Surgical History History of bilateral mastectomy (02/19/22) History of colonoscopy History of esophagogastroduodenoscopy (EGD) History of lumbar fusion History of lumpectomy of both breasts History of surgery Hx of appendectomy Hx of blepharoplasty Hx of cholecystectomy S/P bilateral mastectomy S/P [id number] (total abdominal hysterectomy and bilateral salpingo-oophorectomy) Social History Social History Household Members: None Housing: Apartment Are you a primary healthcare architect to a significant other at home: No Do you presently have visiting nurse or other home services: Yes Alcohol intake: never Patient Tobacco Use Status: Never used Tobacco Smoked in Last 30 Days: No e-Cigarette/Vaping Use: Never Used Second Hand Smoke Exposure: No Use of substances other than those prescribed or required for medical reasons: No Advance Directives: Yes Advance Directives on File: Yes Advance Directives Date on File: 09/26/21 Nutrition Risks: No Nutritional Risk service: No Current occupational status: disabled 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) Hearing needs: No Vision needs: Yes Meds Allergies Allergy/AdvReac Type Severity Reaction Status Date / Time No Known Allergies Allergy Verified 12/24/22 11:52 [No Known Allergies*] Active Medications: Current Medications Acetaminophen (Acetaminophen 325 Mg Tablet) 650 mg PO Q6H PRN PRN Reason: Pain, Mild (Pain Scale 1-3) Albuterol Sulfate (Albuterol Sulfate 90 Mcg 8 Gm Inhaler) 1 puff INHALE QID PRN PRN Reason: Shortness Of Breath Albuterol Sulfate (Albuterol Sulfate (0.083%) 2.5 Mg/3 Ml Vial.Neb) 2.5 mg INHALE Q6H PRN PRN Reason: for wheezing Amlodipine Besylate (Amlodipine Besylate 10 Mg Tablet) 10 mg PO DAILY [facility]; Protocol Last Admin: 12/25/22 09:08 Dose: 10 mg Aspirin (Aspirin 81 Mg Tab.Chew) 81 mg PO DAILY [facility] Atorvastatin Calcium (Atorvastatin Calcium 20 Mg Tablet) 20 mg PO BEDTIME [facility] Cyclobenzaprine HCl (Cyclobenzaprine Hcl 10 Mg Tablet) 10 mg PO TID PRN PRN Reason: Muscle Spasm Dicyclomine HCl (Dicyclomine Hcl 10 Mg Capsule) 20 mg PO QID [facility] Last Admin: 12/25/22 09:08 Dose: 20 mg Escitalopram Oxalate (Escitalopram Oxalate 10 Mg Tablet) 10 mg PO DAILY [facility] Last Admin: 12/25/22 09:08 Dose: 10 mg Gabapentin (Gabapentin 400 Mg Capsule) 800 mg PO BID [facility] Last Admin: 12/25/22 09:08 Dose: 800 mg Heparin Sodium (Porcine) (Heparin Sodium,Porcine 5,000 Unit/Ml Vial) 3,400 unit 40 unit/kg (3400 unit) IVPUSH PROTOCOL BOLUS PRN; Protocol PRN Reason: 40 unit/kg - Heparin Protocol Heparin Sodium (Porcine) (Heparin Sodium,Porcine 5,000 Unit/Ml Vial) 6,800 unit 80 unit/kg (6800 unit) IVPUSH PROTOCOL BOLUS PRN; Protocol PRN Reason: 80 unit/kg - Heparin Protocol Heparin Sodium/Sodium Chloride (Heparin Sodium,Porcine/1/2ns) 25,000 unit in 250 mls @ 0 mls/hr IVCONT .Q0M [facility]; Protocol Last Titration: 12/25/22 08:46 Dose: 0 units/kg/hr, 0 mls/hr Melatonin (Melatonin 3 Mg Tablet) 6 mg PO BEDTIME PRN PRN Reason: Insomnia Metoprolol Tartrate (Metoprolol Tartrate 50 Mg Tablet) 50 mg PO BID [facility]; Protocol Last Admin: 12/25/22 09:08 Dose: 50 mg Mirtazapine (Mirtazapine 15 Mg Tablet) 15 mg PO BEDTIME [facility] Non-Formulary Medication (Memantine) 28 mg PO DAILY [facility] Omeprazole (Omeprazole 20 Mg Capsule.) 20 mg PO DAILY@0630 [facility] Last Admin: 12/25/22 09:08 Dose: 20 mg Ondansetron HCl (Ondansetron Hcl 4 Mg/2 Ml Vial) 4 mg IVPUSH Q8H PRN PRN Reason: Nausea and Vomiting Oxycodone HCl (Oxycodone Hcl Immed Release 5 Mg Tablet) 10 mg PO Q8H PRN PRN Reason: severe pain Pharmacy Consult (Consult Rx Perform Med Rec) 1 each MISCELLANE ONCE PRN PRN Reason: Consult order Sodium Chloride (0.9 % Sodium Chloride Flush 3 Ml Syringe) 3 ml IVFLUSH QSHIFT [facility] Last Admin: 12/25/22 08:27 Dose: Not Given Trazodone HCl (Trazodone Hcl 100 Mg Tablet) 200 mg PO BEDTIME [facility] Vitamin D (Cholecalciferol (Vitamin D3) 25 Mcg Tablet) 50 mcg PO DAILY [facility] Last Admin: 12/25/22 09:08 Dose: 50 mcg Home Medications Medication Instructions Recorded Confirmed Last Taken Type citalopram 20 mg tablet 1 tab PO DAILY 05/05/22 12/24/22 12/24/22 History albuterol sulfate 90 mcg/actuation 1 puff PO QID PRN Shortness Of 12/24/22 Unknown History aerosol inhaler Breath amitriptyline 10 mg tablet 20 mg PO BEDTIME PRN Insomnia 12/24/22 12/24/22 Unknown History cyclobenzaprine 5 mg tablet 10 mg PO TID PRN Muscle Spasm 12/24/22 12/24/22 Unknown History oxycodone 10 mg tablet 10 mg PO Q8H PRN Pain 12/24/22 12/24/22 Unknown History Physical Exam Vital Signs: Vital Signs: Last Vital Signs Temp 98.2 F 12/25/22 08:21 Pulse 83 12/25/22 08:21 Resp 18 12/25/22 08:21 BP 132/76 12/25/22 08:21 Pulse Ox 98 12/25/22 08:21 O2 Del Method Room Air 12/25/22 08:21 BMI result Body Mass Index 36.7 Const: General: comfortable and no acute distress Orientation/conscio usness: patient oriented x3 HEENT: Other: Unremarkable Head: Yes normal to inspection Neck: Neck: Yes normal visual inspection Chest: Chest palpation & inspection: normal inspection of the chest Resp: Auscultation: clear to auscultation bilaterally Cardio: Palpation: normal PMI Heart sounds: S1 normal heart sound present, S2 normal heart sound present, no gallops, no murmurs and no rubs GI: Palpation (GI): Soft to palpation Back/Spine/Pelvis: Other: unremarkable Skin: General skin exam: no rashes or lesions noted Neuro: General: patient oriented x3 Extrem: General: Yes normal to inspection Psych: Mental Status: mental status grossly normal Objective Labs and Meds 12/25/22 05:22 12/25/22 05:22 Lab results: Laboratory Results - last 24 hr 12/24/22 12/24/22 12/24/22 19:00 19:00 19:00 WBC RBC Hgb Hct MCV MCH MCHC RDW Plt Count MPV Immature Gran % (Auto) Neut % (Auto) Lymph % (Auto) Caroline % (Auto) Eos % (Auto) Baso % (Auto) Lymph # (Auto) Caroline # (Auto) Eos # (Auto) Baso # (Auto) Abs Immat Gran (auto) Absolute Neuts (auto) Absolute Nucleated RBC Nucleated RBC % (auto) PT INR APTT aPTT Heparin Protocol Sodium 141 Potassium 4.3 Chloride 107 Carbon Dioxide 21 L Anion Gap 17 BUN 20 H Creatinine 1.29 Estim Creat Clear Calc 37.5 Estimated GFR 40 Random Glucose 139 H Calcium 9.7 Total Bilirubin 0.3 AST 22 ALT 20 Alkaline Phosphatase 74 Troponin I High Sens 665.8 H* D B-Natriuretic Peptide 69 Total Protein 7.8 Albumin 4.1 12/24/22 12/24/22 12/24/22 20:09 20:27 20:27 WBC Cancelled 13.7 H RBC Cancelled 4.14 L Hgb Cancelled 12.1 Hct Cancelled 36.7 L MCV Cancelled 88.6 MCH Cancelled 29.2 MCHC Cancelled 33.0 RDW Cancelled 13.2 Plt Count Cancelled 253 MPV Cancelled 10.4 Immature Gran % (Auto) 0.4 Neut % (Auto) 67.5 Lymph % (Auto) 23.5 Caroline % (Auto) 6.2 Eos % (Auto) 2.0 Baso % (Auto) 0.4 Lymph # (Auto) 3.2 Caroline # (Auto) 0.9 Eos # (Auto) 0.3 Baso # (Auto) 0.1 Abs Immat Gran (auto) 0.05 H Absolute Neuts (auto) 9.3 H Absolute Nucleated RBC Cancelled 0.000 Nucleated RBC % (auto) Cancelled 0.0 PT 11.6 INR 1.0 APTT 24.1 L aPTT Heparin Protocol Sodium Potassium Chloride Carbon Dioxide Anion Gap BUN Creatinine Estim Creat Clear Calc Estimated GFR Random Glucose Calcium Total Bilirubin AST ALT Alkaline Phosphatase Troponin I High Sens B-Natriuretic Peptide Total Protein Albumin 12/24/22 12/25/22 12/25/22 22:22 01:59 05:22 WBC RBC Hgb Hct MCV MCH MCHC RDW Plt Count MPV Immature Gran % (Auto) Neut % (Auto) Lymph % (Auto) Caroline % (Auto) Eos % (Auto) Baso % (Auto) Lymph # (Auto) Caroline # (Auto) Eos # (Auto) Baso # (Auto) Abs Immat Gran (auto) Absolute Neuts (auto) Absolute Nucleated RBC Nucleated RBC % (auto) PT 12.0 INR 1.0 APTT aPTT Heparin Protocol 63.7 Sodium Potassium Chloride Carbon Dioxide Anion Gap BUN Creatinine Estim Creat Clear Calc Estimated GFR Random Glucose Calcium Total Bilirubin AST ALT Alkaline Phosphatase Troponin I High Sens 859.0 H* B-Natriuretic Peptide Total Protein Albumin 12/25/22 12/25/22 12/25/22 05:22 05:22 05:22 WBC 11.0 H RBC 3.97 L Hgb 11.6 L Hct 35.1 L MCV 88.4 MCH 29.2 MCHC 33.0 RDW 13.2 Plt Count 263 MPV 10.5 Immature Gran % (Auto) 0.4 Neut % (Auto) 65.8 Lymph % (Auto) 24.5 Caroline % (Auto) 6.5 Eos % (Auto) 2.4 Baso % (Auto) 0.4 Lymph # (Auto) 2.7 Caroline # (Auto) 0.7 Eos # (Auto) 0.3 Baso # (Auto) 0.0 Abs Immat Gran (auto) 0.04 H Absolute Neuts (auto) 7.3 Absolute Nucleated RBC 0.000 Nucleated RBC % (auto) 0.0 PT INR APTT aPTT Heparin Protocol Sodium 137 Potassium 4.4 Chloride 106 Carbon Dioxide 16 L Anion Gap 19 BUN 17 H Creatinine 1.07 Estim Creat Clear Calc 44.7 Estimated GFR 50 Random Glucose 159 H Calcium 8.8 D Total Bilirubin AST ALT Alkaline Phosphatase Troponin I High Sens 485.3 H* B-Natriuretic Peptide Total Protein Albumin 12/25/22 08:20 WBC RBC Hgb Hct MCV MCH MCHC RDW Plt Count MPV Immature Gran % (Auto) Neut % (Auto) Lymph % (Auto) Caroline % (Auto) Eos % (Auto) Baso % (Auto) Lymph # (Auto) Caroline # (Auto) Eos # (Auto) Baso # (Auto) Abs Immat Gran (auto) Absolute Neuts (auto) Absolute Nucleated RBC Nucleated RBC % (auto) PT INR APTT aPTT Heparin Protocol 108.4 H* D Sodium Potassium Chloride Carbon Dioxide Anion Gap BUN Creatinine Estim Creat Clear Calc Estimated GFR Random Glucose Calcium Total Bilirubin AST ALT Alkaline Phosphatase Troponin I High Sens B-Natriuretic Peptide Total Protein Albumin ECG Interpretation: EKG with sinus rhythm at 76/Min; leftward axis; nonspecific ST-T changes. Imaging Radiologist's impression: Impressions Chest X-Ray 12/24/22 14:46 IMPRESSION: No acute pulmonary findings. Persistent elevation of the right hemidiaphragm. Chest X-Ray 12/24/22 22:31 IMPRESSION: 1. Right IJ CVC tip projects at the level of the cavoatrial junction. No pneumothorax. 2. Unchanged prominence of the cardiomediastinal silhouette as well as elevation of the right hemidiaphragm. Assessment and Plan (1) Non-STEMI (non-ST elevated myocardial infarction): Status: Acute (2) DVT (deep venous thrombosis): Status: Acute (3) Pulmonary emboli: Status: Acute Plan Lower extremity DVT shows left leg DVT throughout the deep venous system. Chest CTA shows bilateral pulmonary emboli. There is mention of coronary artery calcification. No evidence of RV strain. No pericardial effusion. No septal bowing. High sensitivity troponins of 665, 859 and 485. Overall, she has got DVT/PE and evidence of NSTEMI. That could be from right heart strain. Concurrent coronary disease possible but do not believe this is type 1 [place]. Can anticoagulate as you due for pulmonary embolism. Otherwise, she is already on home dose of aspirin/statins in the may be continued. Echocardiogram. Will follow. Time Spent With Patient Time: Total time managing care of this patient today ____ minutes. Procedures Date of Service Date of Service: 12/25/22
[2022-12-25 09:59] LABS: PTT Heparin Drip 57.5 SEC (53-77.9)
--- NOTE | 2022-12-25 10:33 | PM.CNGS ---
History of Present Illness Consult details Consult date: 12/25/22 Reason for consult: other (DVT) Narrative: Complex 72-year-old female with a prior history of breast cancer status post mastectomy was sent in for an ultrasound by Infectious Disease for concerns of left lower extremity swelling. Upon workup she was noted to have a DVT. At that time she was also complaining of dyspnea and pleuritic chest pain. She has undergone workup. She was noted to have this left lower extremity DVT in addition CT scan and demonstrated an acute bilateral PE. Of incidental note she had elevated sensitive troponin. There is concern of a NSTEMI. Now presents to us for vascular evaluation. Review of Systems Constitutional: Constitutional: Reports as per HPI ENT: Reports system reviewed and no additional complaints, except as documented Cardiovascular: Cardiovascular: Denies chest pain, Denies chest pain at rest and Denies chest pain with activity Respiratory: Respiratory: Denies chest congestion and Denies cough Gastrointestinal: Gastrointestinal: Reports no additional gastrointestinal complaints Musculoskeletal: Musculoskeletal: Denies abnormal gait Integumentary/Breasts: Skin/Breast: Reports pruritus and Denies wounds Neurologic: Reports system reviewed and no additional complaints, except as documented and Denies abnormal gait Psychiatric: Psychiatric: Denies no additional psychiatric complaints PMFSH Past Medical History Medical History Arthritis Asthma Cellulitis of breast Depression Diabetes 1.5, managed as type 2 GERD (gastroesophageal reflux disease) HTN (hypertension) IBS (irritable bowel syndrome) 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 malignant neoplasm of right breast Seroma Traumatic complete tear of right rotator cuff Family History Family History Father Heart problem Mother Heart disease Hypertension Colon cancer Epilepsy Maternal Grandmother Esophageal cancer Daughter Breast cancer Brother Lung cancer Sister Breast cancer Sister Breast cancer, Onset Age: 60 Sister COVID Daughter Acute kidney failure Surgical History Surgical History History of bilateral mastectomy (02/19/22) History of colonoscopy History of esophagogastroduodenoscopy (EGD) History of lumbar fusion History of lumpectomy of both breasts History of surgery Hx of appendectomy Hx of blepharoplasty Hx of cholecystectomy S/P bilateral mastectomy S/P [id number] (total abdominal hysterectomy and bilateral salpingo-oophorectomy) Social History Social History Household Members: None Housing: Apartment Are you a primary emergency care tech to a significant other at home: No Do you presently have visiting nurse or other home services: Yes Alcohol intake: never Patient Tobacco Use Status: Never used Tobacco Smoked in Last 30 Days: No e-Cigarette/Vaping Use: Never Used Second Hand Smoke Exposure: No Use of substances other than those prescribed or required for medical reasons: No Advance Directives: Yes Advance Directives on File: Yes Advance Directives Date on File: 09/26/21 Nutrition Risks: No Nutritional Risk service: No Current occupational status: disabled 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) Hearing needs: No Vision needs: Yes Meds Allergies Allergy/AdvReac Type Severity Reaction Status Date / Time No Known Allergies Allergy Verified 12/24/22 11:52 [No Known Allergies*] Active Medications: Current Medications Acetaminophen (Acetaminophen 325 Mg Tablet) 650 mg PO Q6H PRN PRN Reason: Pain, Mild (Pain Scale 1-3) Albuterol Sulfate (Albuterol Sulfate 90 Mcg 8 Gm Inhaler) 1 puff INHALE QID PRN PRN Reason: Shortness Of Breath Albuterol Sulfate (Albuterol Sulfate (0.083%) 2.5 Mg/3 Ml Vial.Neb) 2.5 mg INHALE Q6H PRN PRN Reason: for wheezing Amlodipine Besylate (Amlodipine Besylate 10 Mg Tablet) 10 mg PO DAILY [facility]; Protocol Last Admin: 12/25/22 09:08 Dose: 10 mg Aspirin (Aspirin 81 Mg Tab.Chew) 81 mg PO DAILY [facility] Atorvastatin Calcium (Atorvastatin Calcium 20 Mg Tablet) 20 mg PO BEDTIME [facility] Cyclobenzaprine HCl (Cyclobenzaprine Hcl 10 Mg Tablet) 10 mg PO TID PRN PRN Reason: Muscle Spasm Dicyclomine HCl (Dicyclomine Hcl 10 Mg Capsule) 20 mg PO QID [facility] Last Admin: 12/25/22 09:08 Dose: 20 mg Escitalopram Oxalate (Escitalopram Oxalate 10 Mg Tablet) 10 mg PO DAILY [facility] Last Admin: 12/25/22 09:08 Dose: 10 mg Gabapentin (Gabapentin 400 Mg Capsule) 800 mg PO BID [facility] Last Admin: 12/25/22 09:08 Dose: 800 mg Heparin Sodium (Porcine) (Heparin Sodium,Porcine 5,000 Unit/Ml Vial) 3,400 unit 40 unit/kg (3400 unit) IVPUSH PROTOCOL BOLUS PRN; Protocol PRN Reason: 40 unit/kg - Heparin Protocol Heparin Sodium (Porcine) (Heparin Sodium,Porcine 5,000 Unit/Ml Vial) 6,800 unit 80 unit/kg (6800 unit) IVPUSH PROTOCOL BOLUS PRN; Protocol PRN Reason: 80 unit/kg - Heparin Protocol Heparin Sodium/Sodium Chloride (Heparin Sodium,Porcine/1/2ns) 25,000 unit in 250 mls @ 0 mls/hr IVCONT .Q0M [facility]; Protocol Last Titration: 12/25/22 08:46 Dose: 0 units/kg/hr, 0 mls/hr Melatonin (Melatonin 3 Mg Tablet) 6 mg PO BEDTIME PRN PRN Reason: Insomnia Metoprolol Tartrate (Metoprolol Tartrate 50 Mg Tablet) 50 mg PO BID [facility]; Protocol Last Admin: 12/25/22 09:08 Dose: 50 mg Mirtazapine (Mirtazapine 15 Mg Tablet) 15 mg PO BEDTIME [facility] Non-Formulary Medication (Memantine) 28 mg PO DAILY [facility] Omeprazole (Omeprazole 20 Mg Capsule.Dr) 20 mg PO DAILY@0630 [facility] Last Admin: 12/25/22 09:08 Dose: 20 mg Ondansetron HCl (Ondansetron Hcl 4 Mg/2 Ml Vial) 4 mg IVPUSH Q8H PRN PRN Reason: Nausea and Vomiting Oxycodone HCl (Oxycodone Hcl Immed Release 5 Mg Tablet) 10 mg PO Q8H PRN PRN Reason: severe pain Pharmacy Consult (Consult Rx Perform Med Rec) 1 each MISCELLANE ONCE PRN PRN Reason: Consult order Sodium Chloride (0.9 % Sodium Chloride Flush 3 Ml Syringe) 3 ml IVFLUSH QSHIFT [facility] Last Admin: 12/25/22 08:27 Dose: Not Given Trazodone HCl (Trazodone Hcl 100 Mg Tablet) 200 mg PO BEDTIME [facility] Vitamin D (Cholecalciferol (Vitamin D3) 25 Mcg Tablet) 50 mcg PO DAILY [facility] Last Admin: 12/25/22 09:08 Dose: 50 mcg Home Medications Medication Instructions Recorded Confirmed Last Taken Type citalopram 20 mg tablet 1 tab PO DAILY 05/05/22 12/24/22 12/24/22 History albuterol sulfate 90 mcg/actuation 1 puff PO QID PRN Shortness Of 12/24/22 12/24/22 Unknown History aerosol inhaler Breath amitriptyline 10 mg tablet 20 mg PO BEDTIME PRN Insomnia 12/24/22 12/24/22 Unknown History cyclobenzaprine 5 mg tablet 10 mg PO TID PRN Muscle Spasm 12/24/22 12/24/22 Unknown History oxycodone 10 mg tablet 10 mg PO Q8H PRN Pain 12/24/22 12/24/22 Unknown History Physical Exam Vital Signs: Vital Signs: Last Vital Signs Temp 98.2 F 12/25/22 08:21 Pulse 83 12/25/22 08:21 Resp 18 12/25/22 08:21 BP 132/76 12/25/22 08:21 Pulse Ox 98 12/25/22 08:21 O2 Del Method Room Air 12/25/22 08:21 BMI result Body Mass Index 36.7 Const: General: cooperative, healthy appearing and comfortable Orientation/consciousness: oriented to person, oriented to place and oriented to time Neck: Carotids: no bruits Chest: Chest palpation & inspection: normal inspection of the chest and normal palpation of entire chest wall Resp: Effort & Inspection: normal respiratory effort and able to speak in complete sentences Cardio: Rate: regular rate Heart sounds: S1 normal heart sound present and S2 normal heart sound present Peripheral pulses: Peripheral pulses 2+ throughout GI: Inspection: Yes normal to inspection Skin: Other: +2 edema, left lower extremity General skin exam: dry skin Neuro: General: oriented to person, oriented to place and oriented to time Extrem: Right lower extremity: full ROM, normal capillary refill and edema Left lower extremity: full ROM, normal capillary refill and edema Psych: Mental Status: mental status grossly normal Results Labs 12/25/22 05:22 12/25/22 05:22 Labs: Abnormal lab results 12/24/22 12/24/22 12/24/22 Range/Units 19:00 19:00 20:27 WBC 13.7 H (4.8-10.8) X10*3/uL RBC 4.14 L (4.20-5.50) X10*6/uL Hgb (12.0-16.0) g/dl Hct 36.7 L (37.0-47.0) % Abs Immat Gran (auto) 0.05 H (0.00-0.03) X10*3/uL Absolute Neuts (auto) 9.3 H (2.0-8.3) x10*3/uL APTT (26.0-36.4) SEC aPTT Heparin Protocol (53-77.9) SEC Carbon Dioxide 21 L (22-29) mmol/L BUN 20 H (9-16) mg/dL Random Glucose 139 H (60-115) mg/dL Troponin I High Sens 665.8 H* D (<3.5-17.0) ng/L 12/24/22 12/24/22 12/25/22 Range/Units 20:27 22:22 05:22 WBC 11.0 H (4.8-10.8) X10*3/uL RBC 3.97 L (4.20-5.50) X10*6/uL Hgb 11.6 L (12.0-16.0) g/dl Hct 35.1 L (37.0-47.0) % Abs Immat Gran (auto) 0.04 H (0.00-0.03) X10*3/uL Absolute Neuts (auto) (2.0-8.3) x10*3/uL APTT 24.1 L (26.0-36.4) SEC aPTT Heparin Protocol (53-77.9) SEC Carbon Dioxide (22-29) mmol/L BUN (9-16) mg/dL Random Glucose (60-115) mg/dL Troponin I High Sens 859.0 H* (<3.5-17.0) ng/L 12/25/22 12/25/22 12/25/22 Range/Units 05:22 05:22 08:20 WBC (4.8-10.8) X10*3/uL RBC (4.20-5.50) X10*6/uL Hgb (12.0-16.0) g/dl Hct (37.0-47.0) % Abs Immat Gran (auto) (0.00-0.03) X10*3/uL Absolute Neuts (auto) (2.0-8.3) x10*3/uL APTT (26.0-36.4) SEC aPTT Heparin Protocol 108.4 H* D (53-77.9) SEC Carbon Dioxide 16 L (22-29) mmol/L BUN 17 H (9-16) mg/dL Random Glucose 159 H (60-115) mg/dL Troponin I High Sens 485.3 H* (<3.5-17.0) ng/L Short CBC 12/24/22 12/24/22 12/25/22 Range/Units 20:09 20:27 05:22 WBC Cancelled 13.7 H 11.0 H Hgb Cancelled 12.1 11.6 L Hct Cancelled 36.7 L 35.1 L Plt Count Cancelled 253 263 BMP 12/24/22 12/25/22 19:00 05:22 Sodium 141 137 Potassium 4.3 4.4 Chloride 107 106 Carbon Dioxide 21 L 16 L BUN 20 H 17 H Creatinine 1.29 1.07 Calcium 9.7 8.8 D Liver Function 12/24/22 Range/Units 19:00 Total Bilirubin 0.3 (0.0-1.0) mg/dL AST 22 (5-31) U/L ALT 20 (0-31) U/L Alkaline Phosphatase 74 (39-117) U/L Albumin 4.1 (3.5-5.0) g/dL All other labs normal. Assessment and Plan (1) DVT (deep venous thrombosis): Status: Acute In short patient has DVT of the left lower extremity. It is quite extensive but due to the question of an NSTMI would hold off on any acute interventions such as mechanical venous thrombectomy.. This may be secondary to right heart strain. In addition history of breast cancer as well. Would recommend continued anticoagulation. Ambulate as soon as possible. We will follow her on an as-needed basis. Thank you for allowing us to assist in her care. If there are any questions or concerns please do not hesitate to contact us. (2) Pulmonary emboli: Status: Acute Time Spent With Patient Time: Total time managing care of this patient today ____ minutes. Procedures Date of Service Date of Service: 12/25/22
--- NOTE | 2022-12-25 11:20 | PC.NURSE ---
heparin drip resumed at 10units/kg per protocol. pt remains alert and oriented with no s/s of distress
--- NOTE | 2022-12-25 12:19 | PM.EVENT ---
Event Note Date of Service: 12/25/22 Event Note: day hospitalist update S c/o dyspnea but not hypoxic c/o pleuritic chest pain c/o leg swelling This history was taken in Georgian from the patient. O Temp Pulse Resp BP Pulse Ox O2 Del Method 98.2 F 83 18 132/76 98 Room Air 12/25/22 08:21 12/25/22 08:21 12/25/22 08:21 12/25/22 08:21 12/25/22 08:21 12/25/22 08:21 Gen: in no acute distress HEENT: sclera anicteric, moist mucus membranes Neck: supple Lungs: clear to auscultation bilaterally Heart: regular rate and rhythm, no murmurs Abd: soft, non-tender, non-distended Ext: LLE swollen, tender Skin: warm/well-perfused Neuro: alert and oriented x3, no focal findings Psych: appropriate affect A/P d1 72yo F with hx breast CA s/p mastectomy, HTN, GERD, peripheral neuropathy, dementia, mood disorder admitted for extensive LLE DVT and bilateral PE VTE - heparin gtt - per Vascular Surgery, medical management for now - Heme/Onc consultation elevated Tn-I - suspect due to R heart strain rather than type 1 FL. Cardiology consulted, TTE pending HTN - continue amlodipine, metoprolol mood disorder - continue escitalopram, mirtazapine, trazodone dementia - continue memantine hx breast CA - hold letrozole GERD - continue PPI VTE ppx - heparin gtt dispo - eventual home In my clinical judgment, the patient requires continued inpatient hospitalization for the following reasons: parenteral anticoagulation Time Spent With Patient Time: Total time managing care of this patient today ___35_ minutes.
--- NOTE | 2022-12-25 12:56 | MHC.CM.PN ---
Met with patient and daughter, Cornelia. Patient is primarily Qatari speaking. Patient's daughter Cornelia speaks Qatari and Syrian. Patient is declining director foundation at this time. 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 Patient's daughters Cornelia and Liya, are patient's stator connector. Copy of HCP verified to be on file. PCP verified. Patient received 2 Moderna vaccines and 1 Pfizer vaccine. No additional services anticipate to be needed. IMM explained and signed. Cornelia or Liya will transport patient home when medically stable. Continue to monitor for d/c needs.
--- NOTE | 2022-12-25 13:02 | MHC.EDTECH ---
Pt assisted onto the bedpan. Pt cleaned up and cream placed on [place] area reddened spots.
[2022-12-25 16:23] LABS: PTT Heparin Drip 45.8 SEC (53-77.9)
--- NOTE | 2022-12-25 16:25 | PM.HEMONCCN ---
Subjective - Subjective Chief complaint: Consult for: 1. Pulmonary embolism. 2. DVT. 3. Breast cancer. Patient: new to practice Consult date: 12/25/22 Requesting Physician: Stephanie Primary Care Provider: Milan Mcgraw PA-C Medical Summary: DIAGNOSIS: 1. PULMONARY EMBOLI. 2. DVT. 3. BREAST CANCER. HPI - Consult Narrative Reason for consult: Consult for: 1. PE. 2. DVT. 3. Breast cancer. Narrative: Beatriz Aguayo is a 72 year old lady referred by Dr. Brown, on account of pulmonary emboli, DVT and breast cancer. Patient states she has been having left leg swelling and pain that has been ongoing for the past 3 days. Worse with ambulation. Also complains of dyspnea, worse with exertion and pleuritic chest discomfort. No cough, fevers and chills. She denies palpitations, abdominal pain, changes in urinary or bowel habits. She was sent from ultrasound for treatment of left leg DVT. No history of blood clots in the past. She has a history of breast cancer. . In the emergency department, imaging with bilateral PE Review of Systems Constitutional: Constitutional: Reports fatigue Cardiovascular: Cardiovascular: Reports dyspnea on exertion Respiratory: Respiratory: Reports pain on inspiration and Reports dyspnea on exertion Gastrointestinal: Gastrointestinal: Reports no additional gastrointestinal complaints Genitourinary: Genitourinary: Reports no additional female genitourinary complaints Endocrine: Endocrine: Reports fatigue PMFSH Medical History: history of mood disorder, dementia, essential hypertension, gastroesophageal reflux disease, peripheral neuropathy, History of breast cancer status post mastectomy Arthritis Asthma Cellulitis of breast Depression Diabetes 1.5, managed as type 2 GERD (gastroesophageal reflux disease) HTN (hypertension) IBS (irritable bowel syndrome) 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 malignant neoplasm of right breast Seroma Traumatic complete tear of right rotator cuff Surgical History: History of bilateral mastectomy (02/19/22) History of colonoscopy History of esophagogastroduodenoscopy (EGD) History of lumbar fusion History of lumpectomy of both breasts History of surgery Hx of appendectomy Hx of blepharoplasty Hx of cholecystectomy S/P bilateral mastectomy S/P ANDRÉS-BSO (total abdominal hysterectomy and bilateral salpingo-oophorectomy) Family History: Father Heart problem Mother Heart disease Hypertension Colon cancer Epilepsy Maternal Grandmother Esophageal cancer Daughter Breast cancer Brother Lung cancer Sister Breast cancer Sister Breast cancer, Onset Age: 60 Sister COVID Daughter Acute kidney failure Social History: Household Members: None Housing: Apartment Are you a primary health care liaison to a significant other at home: No Do you presently have visiting nurse or other home services: Yes Alcohol intake: never Patient Tobacco Use Status: Never used Tobacco Smoked in Last 30 Days: No e-Cigarette/Vaping Use: Never Used Second Hand Smoke Exposure: No Use of substances other than those prescribed or required for medical reasons: No Advance Directives: Yes Advance Directives on File: Yes Review of Systems - Constitutional Reports system reviewed and no additional complaints, except as documented, Reports fatigue, Reports lack of energy, Reports malaise, Reports weight loss, Denies anorexia, Denies fever(s) - Eyes Reports system reviewed and no additional complaints, except as documented - ENT Reports system reviewed and no additional complaints, except as documented - Cardiovascular Reports system reviewed and no additional complaints, except as documented - Respiratory Reports no additional respiratory complaints - Gastrointestinal Reports system reviewed and no additional complaints, except as documented - Genitourinary Reports no additional female genitourinary complaints - Musculoskeletal Reports system reviewed and no additional complaints, except as documented - Integumentary/Breasts Skin/Breast: Reports no additional skin complaints - Neurologic Reports system reviewed and no additional complaints, except as documented, Reports as per HPI, Denies abnormal gait - Psychiatric Reports system reviewed and no additional complaints, except as documented - Endocrine Reports no additional endocrine complaints - Hematologic/Lymphatic Reports system reviewed and no additional complaints, except as documented - Allergic/Immunologic Reports system reviewed and no additional complaints, except as documented Oncology Screenings - ECOG Performance Status ECOG Performance Status: 1 [facility] Medical History: Medical History (Last Reviewed 12/26/22 @ 11:10 by Francoise Nash PT) Arthritis Asthma Cellulitis of breast Depression Diabetes 1.5, managed as type 2 GERD (gastroesophageal reflux disease) HTN (hypertension) IBS (irritable bowel syndrome) 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 malignant neoplasm of right breast Seroma Traumatic complete tear of right rotator cuff Functional capacity: uses cane/walker Patient : No Family History: Family History (Last Reviewed 12/25/22 @ 16:32 by Becky Plunkett MD) Father Heart problem Mother Heart disease Hypertension Colon cancer Epilepsy Maternal Grandmother Esophageal cancer Daughter Breast cancer Brother Lung cancer Sister Breast cancer Sister Breast cancer, Onset Age: 60 Sister COVID Daughter Acute kidney failure Surgical History: Surgical History (Last Reviewed 12/26/22 @ 11:10 by Francoise Nash PT) History of bilateral mastectomy Onset Date: 02/19/22 History of colonoscopy History of esophagogastroduodenoscopy (EGD) History of lumbar fusion History of lumpectomy of both breasts History of surgery Hx of appendectomy Hx of blepharoplasty Hx of cholecystectomy S/P bilateral mastectomy S/P ANDRÉS-BSO (total abdominal hysterectomy and bilateral salpingo-oophorectomy) Social History: Social History (Last Reviewed 12/25/22 @ 16:32 by Becky Plunkett MD) Living Situation History: Household Members: None Housing: Apartment Are you a primary health care liaison to a significant other at home: No Do you presently have visiting nurse or other home services: Yes Do you presently have visiting nurse or other home services comment: daughter 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 Tobacco History: Patient Tobacco Use Status: Never used Tobacco e-Cigarette/Vaping Use: Never Used Second Hand Smoke Exposure: No Advance Directives: Advance Directives Date on File: 09/26/21 Occupation Assessmet: service: No Current occupational status: disabled Home Medications and Allergies Current Medications: Current Medications Acetaminophen (Acetaminophen 325 Mg Tablet) 650 mg PO Q6H PRN PRN Reason: Pain, Mild (Pain Scale 1-3) Albuterol Sulfate (Albuterol Sulfate 90 Mcg 8 Gm Inhaler) 1 puff INHALE QID PRN PRN Reason: Shortness Of Breath Albuterol Sulfate (Albuterol Sulfate (0.083%) 2.5 Mg/3 Ml Vial.Neb) 2.5 mg INHALE Q6H PRN PRN Reason: for wheezing Amlodipine Besylate (Amlodipine Besylate 10 Mg Tablet) 10 mg PO DAILY [facility]; Protocol Last Admin: 12/25/22 09:08 Dose: 10 mg Aspirin (Aspirin 81 Mg Tab.Chew) 81 mg PO DAILY [facility] Atorvastatin Calcium (Atorvastatin Calcium 20 Mg Tablet) 20 mg PO BEDTIME [facility] Cyclobenzaprine HCl (Cyclobenzaprine Hcl 10 Mg Tablet) 10 mg PO TID PRN PRN Reason: Muscle Spasm Dicyclomine HCl (Dicyclomine Hcl 10 Mg Capsule) 20 mg PO QID [facility] Last Admin: 12/25/22 16:12 Dose: Not Given Escitalopram Oxalate (Escitalopram Oxalate 10 Mg Tablet) 10 mg PO DAILY [facility] Last Admin: 12/25/22 09:08 Dose: 10 mg Gabapentin (Gabapentin 400 Mg Capsule) 800 mg PO BID [facility] Last Admin: 12/25/22 09:08 Dose: 800 mg Heparin Sodium (Porcine) (Heparin Sodium,Porcine 5,000 Unit/Ml Vial) 3,400 unit 40 unit/kg (3400 unit) IVPUSH PROTOCOL BOLUS PRN; Protocol PRN Reason: 40 unit/kg - Heparin Protocol Heparin Sodium (Porcine) (Heparin Sodium,Porcine 5,000 Unit/Ml Vial) 6,800 unit 80 unit/kg (6800 unit) IVPUSH PROTOCOL BOLUS PRN; Protocol PRN Reason: 80 unit/kg - Heparin Protocol Heparin Sodium/Sodium Chloride (Heparin Sodium,Porcine/1/2ns) 25,000 unit in 250 mls @ 0 mls/hr IVCONT .Q0M [facility]; Protocol Last Titration: 12/25/22 11:17 Dose: 10 units/kg/hr, 8.53 mls/hr Melatonin (Melatonin 3 Mg Tablet) 6 mg PO BEDTIME PRN PRN Reason: Insomnia Metoprolol Tartrate (Metoprolol Tartrate 50 Mg Tablet) 50 mg PO BID [facility]; Protocol Last Admin: 12/25/22 09:08 Dose: 50 mg Mirtazapine (Mirtazapine 15 Mg Tablet) 15 mg PO BEDTIME [facility] Non-Formulary Medication (Memantine) 28 mg PO DAILY [facility] Omeprazole (Omeprazole 20 Mg Capsule.Dr) 20 mg PO DAILY@0630 [facility] Last Admin: 12/25/22 09:08 Dose: 20 mg Ondansetron HCl (Ondansetron Hcl 4 Mg/2 Ml Vial) 4 mg IVPUSH Q8H PRN PRN Reason: Nausea and Vomiting Oxycodone HCl (Oxycodone Hcl Immed Release 5 Mg Tablet) 10 mg PO Q8H PRN PRN Reason: severe pain Pharmacy Consult (Consult Rx Perform Med Rec) 1 each MISCELLANE ONCE PRN PRN Reason: Consult order Sodium Chloride (0.9 % Sodium Chloride Flush 3 Ml Syringe) 3 ml IVFLUSH QSHIFT [facility] Last Admin: 12/25/22 08:27 Dose: Not Given Trazodone HCl (Trazodone Hcl 100 Mg Tablet) 200 mg PO BEDTIME [facility] Vitamin D (Cholecalciferol (Vitamin D3) 25 Mcg Tablet) 50 mcg PO DAILY [facility] Last Admin: 12/25/22 09:08 Dose: 50 mcg Home Medications Medication Instructions Recorded Confirmed Type citalopram 20 mg tablet 1 tab PO DAILY 05/05/22 12/24/22 History albuterol sulfate 90 mcg/actuation 1 puff PO QID PRN Shortness Of 12/24/22 12/24/22 History aerosol inhaler Breath amitriptyline 10 mg tablet 20 mg PO BEDTIME PRN Insomnia 12/24/22 12/24/22 History cyclobenzaprine 5 mg tablet 10 mg PO TID PRN Muscle Spasm 12/24/22 12/24/22 History oxycodone 10 mg tablet 10 mg PO Q8H PRN Pain 12/24/22 12/24/22 History Allergies Allergy/AdvReac Type Severity Reaction Status Date / Time No Known Allergies Allergy Verified 12/24/22 11:52 [No Known Allergies*] Physical Exam Vital signs: Vital Signs Temp 98.2 F 12/25/22 08:21 Pulse 77 12/25/22 13:00 Resp 18 12/25/22 13:00 BP 125/73 12/25/22 13:00 Pulse Ox 94 12/25/22 13:00 O2 Del Method Room Air 12/25/22 13:00 Intake & Output 12/24/22 12/25/22 12/25/22 18:59 06:59 18:59 Intake Total 145.469 / 145.469 Balance 145.469 / 145.469 Intake: Intake, IV Amount 145.469 / 145.469 Heparin Sodium,Porcine/1/2NS 25 145.469 / 145.469 ,000 unit In 250 ml @ Per Protocol IVCONT .Q0M [facility] Rx#: [id number] Other: Last Bowel Movement 12/24/22 Weight 87.09 kg 85.3 kg [place] Weight in Grams 30759 Weight 85.3 kg - Constitutional Present: moderate distress - Routine HEENT Exam Head: Present: normal inspection, normocephalic ENT: Present: mucous membranes moist - Routine Neck Exam Present: supple - Routine Respiratory Exam Present: CTAB - Routine Cardiovascular Exam Cardiovascular: Present: RRR, S1, S2 - Routine Abdominal Exam Present: soft, nontender - Routine Extremities Exam Present: calf tenderness, pedal edema, tenderness. Absent: nontender Hem/Onc Consult Result - Labs CBC & Chem 7: 12/26/22 06:29 12/26/22 06:29 Labs: Short CBC 12/24/22 12/24/22 12/25/22 Range/Units 20:09 20:27 05:22 WBC Cancelled 13.7 H 11.0 H Hgb Cancelled 12.1 11.6 L Hct Cancelled 36.7 L 35.1 L Plt Count Cancelled 253 263 BMP 12/24/22 12/25/22 19:00 05:22 Sodium 141 137 Potassium 4.3 4.4 Chloride 107 106 Carbon Dioxide 21 L 16 L BUN 20 H 17 H Creatinine 1.29 1.07 Calcium 9.7 8.8 D Liver Function 12/24/22 Range/Units 19:00 Total Bilirubin 0.3 (0.0-1.0) mg/dL AST 22 (5-31) U/L ALT 20 (0-31) U/L Alkaline Phosphatase 74 (39-117) U/L Albumin 4.1 (3.5-5.0) g/dL Assessment and Plan Patient Active problem list reviewed?: Yes (1) Pulmonary emboli Status: Acute Assessment and plan: 72-year-old lady with bilateral PE, DVT and NSTEMI. Patient has been started on IV heparin, on account of the above diagnoses. She has been evaluated by vascular surgery. No intervention is planned for now. PLAN: To continue medical therapy. Would consult Cardiology for the NSTEMI. Would be able to switch over to an oral agent NOAC, after stabilization. (2) Bilateral breast cancer Status: Acute Assessment and plan: 72-year-old lady with a long history of breast cancer. She had right breast cancer in October 2003. She had lumpectomy irradiation and 5 years of Arimidex therapy. 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 It was receptor negative. She had lumpectomy and radiation. She then developed a new breast cancer on the right last year. Mammogram from January 2022: -Subtle asymmetric density with ultrasound correlate 9:00 position under 1.5 cm. Left: -Mammography shows no significant change from prior studies. -Benign-appearing hypoechoic nodule under 5 mm 12:00 position. ASSESSMENT: BI-RADS 4: Suspicious RECOMMENDATION: -Right: Ultrasound-guided core biopsy right breast lesion. Pathology from 01/31 Biopsy: 1. 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 ER positive 100%. Strong intensity. KS positive 70%, moderate intensity. HER2 Smooth negative. Proliferation index high 30% Right mastectomy from 02/19: Tumor size 1.4 cm. Invasive carcinoma with mixed ductal and lobular features, grade 2. Metastatic carcinoma present in 1 of 4 lymph nodes. Stage pT1c,N1. Left simple mastectomy, on , pathology:: Lobular carcinoma in Situ, negative for invasive carcinoma. Explained that she will definitely benefit from antiestrogen therapy. Question was if there would be additional benefit from chemotherapy. l proceeded with Oncotype DX testing, to assess the need for chemotherapy. This revealed a score of 8. No benefit from chemotherapy. l also proceeded with baseline bone mineral density to select the choice of antiestrogen agent. This revealed a score of -2.2. I shared the results with her. l checked labs, including tumor marker (Ca 27.29: 15) and vitamin-D level; was low at 20.5. She was started on calcium and D replacement. In view of the low bone density, l decided to start out with tamoxifen, as the antiestrogen agent of choice. Possible side effects including, headaches dizziness, nausea vomiting diarrhea, pancytopenia, risk of endometrial toxicity, thromboembolic phenomena and ocular toxicity were all addressed with her. She understood and was willing to proceed. She had been tolerating it well. However she now presents with pulmonary emboli and DVT. PLAN: Will hold off further tamoxifen for now. Will consider starting an aromatase inhibitor, after she has stabilized. I will follow her up as an outpatient and advise further. Thank you, Cc: Joshua Mcgraw - Time Spent With Patient Time Spent with Patient (in minutes): 30
[2022-12-25] MEDS: Heparin Sodium,Porcine 5,000 UNIT/ML VIAL 3400 UNIT IVPUSH (16:56)
[2022-12-25] MEDS: traZODone HCL 100 MG TABLET 200 MG PO (22:33)
[2022-12-25] MEDS: Mirtazapine 15 MG TABLET PO (22:33)
[2022-12-25] MEDS: Acetaminophen 325 MG TABLET 650 MG PO (22:33)
[2022-12-25] MEDS: 0.9 % Sodium Chloride Flush 3 ML SYRINGE IVFLUSH (22:34)
[2022-12-25] MEDS: Atorvastatin Calcium 20 MG TABLET PO (22:34)
[2022-12-25] MEDS: Nystatin Ointment 15 GM TUBE 1 APPL TOPICAL (22:34)
[2022-12-25 23:42] LABS: PTT Heparin Drip 87.2 SEC (53-77.9)
[2022-12-26] VITALS (7 sets, daily range): BP systolic 103–145; BP diastolic 65–72; PULSE 64–90; RESP 18–20; TEMP 36.3–37.3; O2SAT 91–97
[2022-12-26] MEDS: Heparin Sodium,Porcine/1/2NS 25,000 UNIT/250 ML IV.SOLN 8.53 UNIT IVCONT (00:13)
[2022-12-26 06:40] LABS: Venous Blood Gas Refer to POC result
[2022-12-26 06:41] LABS: VBG Base Excess 3.3 mmol/L; VBG HCO3 28 mmol/L (22-26); VBG pCO2 43 mmHg; VBG pH 7.41 (7.32-7.43); VBG pO2 49 mmHg
[2022-12-26 06:41] LABS: Hematocrit 35.2 % (37.0-47.0); Hemoglobin 11.5 g/dl (12.0-16.0); Mean Corpuscular HGB Conc 32.7 g/dl (31.0-35.0); Mean Corpuscular Hemoglobin 28.8 pg (27.0-33.0); Mean Corpuscular Volume 88.2 fL (80.0-98.0); Mean Platelet Volume 9.8 fL (9.4-12.3); Platelet Count 268 X10*3/uL (160-400); Red Blood Count 3.99 X10*6/uL (4.20-5.50); Red Cell Distribution Width 13.3 % (11.0-16.0); White Blood Count 9.5 X10*3/uL (4.8-10.8)
[2022-12-26 06:47] LABS: PTT Heparin Drip 68.9 SEC (53-77.9)
[2022-12-26 07:03] LABS: Anion Gap 16 (12-20); Blood Urea Nitrogen 14 mg/dL (9-16); Calcium 8.6 mg/dL (8.4-10.2); Carbon Dioxide 22 mmol/L (22-29); Chloride 107 mmol/L (96-108); Creatinine Clr Calc Pharmacy 53.1; Estimated Glomerular Filt Rate > 60; Glucose Random 148 mg/dL (60-115); Potassium 4.1 mmol/L (3.3-5.1); Sodium 141 mmol/L (135-145)
[2022-12-26] MEDS: 0.9 % Sodium Chloride Flush 3 ML SYRINGE IVFLUSH ×2 (08:22→16:45)
[2022-12-26] MEDS: Gabapentin 400 MG CAPSULE 800 MG PO ×2 (08:23→20:26)
[2022-12-26] MEDS: Metoprolol Tartrate 50 MG TABLET PO ×2 (08:23→20:27)
[2022-12-26] MEDS: Cholecalciferol (Vitamin D3) 25 MCG TABLET 50 MCG PO (08:23)
[2022-12-26] MEDS: Dicyclomine HCl 10 MG CAPSULE 20 MG PO ×4 (08:23→20:25)
[2022-12-26] MEDS: Escitalopram Oxalate 10 MG TABLET PO (08:24)
[2022-12-26] MEDS: Aspirin 81 MG TAB.CHEW PO (08:24)
[2022-12-26] MEDS: amLODIPine Besylate 10 MG TABLET PO (08:24)
--- NOTE | 2022-12-26 10:37 | HO.PM.IMPN ---
Subjective Subjective Date of Service: 12/26/22 Interval History: dyspnea with exertion left leg swollen pleuritic chest pain This history was taken in Romanian from the patient. Review of Systems Review of Systems: Yes all other systems are reviewed and are negative Physical Exam Vital Signs: Vital Signs: Last Vital Signs Temp 97.3 F 12/26/22 07:22 Pulse 72 12/26/22 07:22 Resp 18 12/26/22 07:22 BP 119/68 12/26/22 07:22 Pulse Ox 97 12/26/22 07:22 O2 Del Method Room Air 12/26/22 07:22 BMI result Body Mass Index 36.7 Gen: in no acute distress HEENT: sclera anicteric, moist mucus membranes Neck: supple Lungs: clear to auscultation bilaterally Heart: regular rate and rhythm, no murmurs Abd: soft, non-tender, non-distended Ext: LLE swollen, tender Skin: warm/well-perfused Neuro: alert and oriented x3, no focal findings Psych: appropriate affect Objective Data Active Medications Acetaminophen (Acetaminophen 325 Mg Tablet) 650 mg PO Q6H PRN PRN Reason: Pain, Mild (Pain Scale 1-3) Last Admin: 12/25/22 22:33 Dose: 650 mg Documented By: BEULAH Albuterol Sulfate (Albuterol Sulfate 90 Mcg 8 Gm Inhaler) 1 puff INHALE QID PRN PRN Reason: Shortness Of Breath Albuterol Sulfate (Albuterol Sulfate (0.083%) 2.5 Mg/3 Ml Vial.Neb) 2.5 mg INHALE Q6H PRN PRN Reason: for wheezing Amlodipine Besylate (Amlodipine Besylate 10 Mg Tablet) 10 mg PO DAILY [facility]; Protocol Last Admin: 12/26/22 08:24 Dose: 10 mg Documented By: ABEL Aspirin (Aspirin 81 Mg Tab.Chew) 81 mg PO DAILY [facility] Last Admin: 12/26/22 08:24 Dose: 81 mg Documented By: ABEL Atorvastatin Calcium (Atorvastatin Calcium 20 Mg Tablet) 20 mg PO BEDTIME [facility] Last Admin: 12/25/22 22:34 Dose: 20 mg Documented By: BEULAH Cyclobenzaprine HCl (Cyclobenzaprine Hcl 10 Mg Tablet) 10 mg PO TID PRN PRN Reason: Muscle Spasm Dicyclomine HCl (Dicyclomine Hcl 10 Mg Capsule) 20 mg PO QID [facility] Last Admin: 12/26/22 08:23 Dose: 20 mg Documented By: ABEL Escitalopram Oxalate (Escitalopram Oxalate 10 Mg Tablet) 10 mg PO DAILY [facility] Last Admin: 12/26/22 08:24 Dose: 10 mg Documented By: ABEL Gabapentin (Gabapentin 400 Mg Capsule) 800 mg PO BID [facility] Last Admin: 12/26/22 08:23 Dose: 800 mg Documented By: ABEL Guaifenesin/Dextromethorphan (Guaifenesin Dm 100/10/5 Ml 5 Ml Syrup) 5 ml PO Q4H PRN PRN Reason: coug Heparin Sodium (Porcine) (Heparin Sodium,Porcine 5,000 Unit/Ml Vial) 3,400 unit 40 unit/kg (3400 unit) IVPUSH PROTOCOL BOLUS PRN; Protocol PRN Reason: 40 unit/kg - Heparin Protocol Last Admin: 12/25/22 16:56 Dose: 3,400 unit Documented By: ABEL Heparin Sodium (Porcine) (Heparin Sodium,Porcine 5,000 Unit/Ml Vial) 6,800 unit 80 unit/kg (6800 unit) IVPUSH PROTOCOL BOLUS PRN; Protocol PRN Reason: 80 unit/kg - Heparin Protocol Heparin Sodium/Sodium Chloride (Heparin Sodium,Porcine/1/2ns) 25,000 unit in 250 mls @ 0 mls/hr IVCONT .Q0M [facility]; Protocol Last Titration: 12/26/22 07:14 Dose: 10 units/kg/hr, 8.53 mls/hr Documented By: VANESSA Co-signed By: ABEL Melatonin (Melatonin 3 Mg Tablet) 6 mg PO BEDTIME PRN PRN Reason: Insomnia Metoprolol Tartrate (Metoprolol Tartrate 50 Mg Tablet) 50 mg PO BID [facility]; Protocol Last Admin: 12/26/22 08:23 Dose: 50 mg Documented By: ABEL Mirtazapine (Mirtazapine 15 Mg Tablet) 15 mg PO BEDTIME [facility] Last Admin: 12/25/22 22:33 Dose: 15 mg Documented By: BEULAH Pt Own (Memantine 28 (Mg Capsule Er 24hr)) 28 mg PO DAILY [facility] Last Admin: 12/26/22 08:22 Dose: 28 mg Documented By: ABEL Omeprazole (Omeprazole 20 Mg Capsule.Dr) 20 mg PO DAILY@0630 [facility] Last Admin: 12/26/22 05:41 Dose: Not Given Documented By: VANESSA Non-Admin Reason: Patient Refused Ondansetron HCl (Ondansetron Hcl 4 Mg/2 Ml Vial) 4 mg IVPUSH Q8H PRN PRN Reason: Nausea and Vomiting Oxycodone HCl (Oxycodone Hcl Immed Release 5 Mg Tablet) 10 mg PO Q8H PRN PRN Reason: severe pain Pharmacy Consult (Consult Rx Perform Med Rec) 1 each MISCELLANE ONCE PRN PRN Reason: Consult order Sodium Chloride (0.9 % Sodium Chloride Flush 3 Ml Syringe) 3 ml IVFLUSH QSHIFT [facility] Last Admin: 12/26/22 08:22 Dose: 3 ml Documented By: ABEL Trazodone HCl (Trazodone Hcl 100 Mg Tablet) 200 mg PO BEDTIME [facility] Last Admin: 12/25/22 22:33 Dose: 200 mg Documented By: BEULAH Vitamin D (Cholecalciferol (Vitamin D3) 25 Mcg Tablet) 50 mcg PO DAILY [facility] Last Admin: 12/26/22 08:23 Dose: 50 mcg Documented By: ABEL Labs 12/26/22 06:29 12/26/22 06:29 Labs: Laboratory Results - last 24 hr 12/25/22 12/25/22 12/26/22 15:59 23:23 06:29 MCV 88.2 MCH 28.8 MCHC 32.7 RDW 13.3 Plt Count 268 MPV 9.8 Absolute Nucleated RBC 0.000 Nucleated RBC % (auto) 0.0 aPTT Heparin Protocol 45.8 L D 87.2 H D VBG pH VBG pCO2 VBG pO2 VBG HCO3 VBG O2 Saturation VBG Base Excess Anion Gap Estim Creat Clear Calc Estimated GFR Random Glucose Calcium 12/26/22 12/26/22 12/26/22 06:29 06:29 06:33 MCV MCH MCHC RDW Plt Count MPV Absolute Nucleated RBC Nucleated RBC % (auto) aPTT Heparin Protocol 68.9 D VBG pH 7.41 VBG pCO2 43 VBG pO2 49 VBG HCO3 28 H VBG O2 Saturation 79.0 VBG Base Excess 3.3 Anion Gap 16 Estim Creat Clear Calc 53.1 Estimated GFR > 60 Random Glucose 148 H Calcium 8.6 Assessment and Plan (1) Pulmonary emboli: Status: Acute (2) DVT (deep venous thrombosis): Status: Acute Plan d2 72yo F with hx breast CA s/p mastectomy, HTN, GERD, peripheral neuropathy, dementia, mood disorder admitted for extensive LLE DVT and bilateral PE VTE - heparin gtt - per Vascular Surgery, medical management for now - Heme/Onc consultation, consider changing eventually to apixaban elevated Tn-I - suspect due to R heart strain rather than type 1 [place].? Cardiology consulted - TTE 12/25/22: - The left ventricular systolic function is normal.? The ? calculated ejection fraction is 58% by biplane method. ? - Cannot exclude apical inferior hypokinesis.? - No obvious valvular pathology seen on this study.? - Mild pulmonary hypertension is present.? HTN - continue amlodipine, metoprolol mood disorder - continue escitalopram, mirtazapine, trazodone dementia - continue memantine hx breast CA - hold tamoxifen due to VTE GERD - continue PPI VTE ppx - heparin gtt dispo - PT eval pending In my clinical judgment, the patient requires continued inpatient hospitalization for the following reasons: parenteral anticoagulation Time Spent With Patient Time: Total time managing care of this patient today ___35_ minutes. Quality Stroke Does the patient have a stroke diagnosis?: No VTE Prior VTE?: No VTE Risk Level:: Medical - moderate - high VTE Device Contraindication: Treatment Not Indicated VTE Drug Contraindication: N/A - Med Ordered
--- NOTE | 2022-12-26 10:38 | PM.PNCARD ---
Subjective Subjective Date of Service: 12/26/22 Interval history: She states she is feeling okay. No new complaints. Review of Systems Review of Systems Yes all other systems are reviewed and are negative Constitutional: Reports as per HPI and Reports no additional constitutional complaints Eyes: Reports as per HPI and Denies no additional eye complaints Denies system reviewed and no additional complaints, except as documented and Reports as per HPI Cardiovascular: Reports as per HPI, Reports no additional cardiovascular complaints, Denies acrocyanosis, Denies cool extremities, Denies chest pain, Denies leg edema, Denies lightheadedness, Denies palpitations and Denies dyspnea Respiratory: Reports as per HPI, Denies no additional respiratory complaints and Denies dyspnea Gastrointestinal: Reports as per HPI and Denies no additional gastrointestinal complaints Genitourinary: Reports as per HPI Musculoskeletal: Reports no additional musculoskeletal complaints and Reports as per HPI Skin/Breast: Reports system reviewed and no additional complaints, except as docu Reports system reviewed and no additional complaints, except as documented and Reports as per HPI Psychiatric: Reports no additional psychiatric complaints and Reports as per HPI Endocrine: Reports no additional endocrine complaints, Reports as per HPI and Denies palpitations Hematologic/Lymphatic: Reports no additional hematologic/lymphatic complaints and Reports as per HPI Allergic/Immunologic: Reports no additional allergic/immunologic complaints and Reports as per HPI Physical Exam Vital Signs: Last Vital Signs Temp 97.3 F 12/26/22 07:22 Pulse 72 12/26/22 07:22 Resp 18 12/26/22 07:22 BP 119/68 12/26/22 07:22 Pulse Ox 97 12/26/22 07:22 O2 Del Method Room Air 12/26/22 07:22 BMI result Body Mass Index 36.7 Const General: comfortable and no acute distress Orientation/consciousness: patient oriented x3 HEENT Other: Unremarkable Head: Yes normal to inspection Neck Neck: Yes normal visual inspection Chest Chest palpation & inspection: normal inspection of the chest Resp Auscultation: clear to auscultation bilaterally Cardio Palpation: normal PMI Heart sounds: S1 normal heart sound present, S2 normal heart sound present, no gallops, no murmurs and no rubs GI Palpation (GI): Soft to palpation Back/Spine/Pelvis Other: unremarkable Skin General skin exam: no rashes or lesions noted Neuro General: patient oriented x3 Extrem General: Yes normal to inspection Psych Mental Status: mental status grossly normal Objective Labs and Meds 12/26/22 06:29 12/26/22 06:29 Lab results: Laboratory Results - last 24 hr 12/25/22 12/25/22 12/26/22 15:59 23:23 06:29 WBC 9.5 RBC 3.99 L Hgb 11.5 L Hct 35.2 L MCV 88.2 MCH 28.8 MCHC 32.7 RDW 13.3 Plt Count 268 MPV 9.8 Absolute Nucleated RBC 0.000 Nucleated RBC % (auto) 0.0 aPTT Heparin Protocol 45.8 L D 87.2 H D VBG pH VBG pCO2 VBG pO2 VBG HCO3 VBG O2 Saturation VBG Base Excess Sodium Potassium Chloride Carbon Dioxide Anion Gap BUN Creatinine Estim Creat Clear Calc Estimated GFR Random Glucose Calcium 12/26/22 12/26/22 12/26/22 06:29 06:29 06:33 WBC RBC Hgb Hct MCV MCH MCHC RDW Plt Count MPV Absolute Nucleated RBC Nucleated RBC % (auto) aPTT Heparin Protocol 68.9 D VBG pH 7.41 VBG pCO2 43 VBG pO2 49 VBG HCO3 28 H VBG O2 Saturation 79.0 VBG Base Excess 3.3 Sodium 141 Potassium 4.1 Chloride 107 Carbon Dioxide 22 Anion Gap 16 BUN 14 Creatinine 0.90 Estim Creat Clear Calc 53.1 Estimated GFR > 60 Random Glucose 148 H Calcium 8.6 Progress Note: A&P Assessment and plan (1) Non-STEMI (non-ST elevated myocardial infarction): Status: Acute (2) DVT (deep venous thrombosis): Status: Acute (3) Pulmonary emboli: Status: Acute Plan Lower extremity DVT shows left leg DVT throughout the deep venous system. Chest CTA shows bilateral pulmonary emboli. There is mention of coronary artery calcification. No evidence of RV strain. No pericardial effusion. No septal bowing. High sensitivity troponins of 665, 859 and 485. The high sensitivity troponin elevation could be either from right ventricular strain or demand related NSTEMI from pre-existing CAD or some combination of the above. Can do anticoagulation for thromboembolic disease as recommended. Echocardiogram with possible apical inferior hypokinesis but could also be technical. Preserved LVEF. Mild pulmonary hypertension. No evidence of right heart strain. Mildly decreased right ventricular systolic function. Upon discharge, we can arrange follow-up. Time Spent With Patient Time: Total time managing care of this patient today ____ minutes. Progress Note: Quality Stroke Does the patient have a stroke diagnosis?: No Procedures Date of Service Date of Service: 12/26/22
--- NOTE | 2022-12-26 10:48 | MHC.CM.PN ---
Addendum entered by Renetta Nava 12/26/22 15:39: This CM met with pt regarding PT recommendations for home services upon D/C with compensation intern. Pt agreeable with plan, had no preference for VNA agency. Referrals placed via [facility]. Original Note: EMR reviewed and per MD rounds, pt is not medically cleared for D/C today as she remains on a heparin drip, MD plans to change pt to eliquis tomorrow and then likely D/C afterwards. CM will continue to follow.
[2022-12-26] MEDS: guaiFENesin DM 100/10/5 ML 5 ML SYRUP PO (12:34)
[2022-12-26 13:27] LABS: PTT Heparin Drip 45.8 SEC (53-77.9)
[2022-12-26] MEDS: Heparin Sodium,Porcine 5,000 UNIT/ML VIAL 3400 UNIT IVPUSH (13:58)
[2022-12-26] MEDS: Mirtazapine 15 MG TABLET PO (20:26)
[2022-12-26] MEDS: Atorvastatin Calcium 20 MG TABLET PO (20:27)
[2022-12-26] MEDS: traZODone HCL 100 MG TABLET 200 MG PO (20:27)
[2022-12-26] MEDS: oxyCODONE HCl Immed Release 5 MG TABLET 10 MG PO (20:27)
[2022-12-26 20:50] LABS: PTT Heparin Drip 78.4 SEC (53-77.9)
--- NOTE | 2022-12-26 21:33 | PM.HEMONCCN ---
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 Drake who did an oncology consult yesterday who was admitted 12-25-2022 for multiple pulmonary emboli. Review of Systems - Constitutional Reports fatigue - Eyes Reports other - Cardiovascular Reports chest pain, Reports fast heart rate, Reports leg swelling - Respiratory Reports cough, Reports dyspnea - Gastrointestinal Reports bloating - Genitourinary Reports absent period - Musculoskeletal Reports abnormal walking - Neurologic Reports system reviewed and no additional complaints, except as documented, Denies abnormal gait PMFSH Medical History: Medical History (Last Reviewed 12/26/22 @ 11:10 by Francoise Nash, PT) Arthritis Asthma Cellulitis of breast Depression Diabetes 1.5, managed as type 2 GERD (gastroesophageal reflux disease) HTN (hypertension) IBS (irritable bowel syndrome) 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 malignant neoplasm of right breast Seroma Traumatic complete tear of right rotator cuff Functional capacity: uses cane/walker Family History: Family History (Last Reviewed 12/25/22 @ 16:32 by Becky Plunkett MD) Father Heart problem Mother Heart disease Hypertension Colon cancer Epilepsy Maternal Grandmother Esophageal cancer Daughter Breast cancer Brother Lung cancer Sister Breast cancer Sister Breast cancer, Onset Age: 60 Sister COVID Daughter Acute kidney failure Surgical History: Surgical History (Last Reviewed 12/26/22 @ 11:10 by Francoise Nash, PT) History of bilateral mastectomy Onset Date: 02/19/22 History of colonoscopy History of esophagogastroduodenoscopy (EGD) History of lumbar fusion History of lumpectomy of both breasts History of surgery Hx of appendectomy Hx of blepharoplasty Hx of cholecystectomy S/P bilateral mastectomy S/P [id number] (total abdominal hysterectomy and bilateral salpingo-oophorectomy) Social History: Social History (Last Reviewed 12/25/22 @ 16:32 by Becky Plunkett MD) Living Situation History: Household Members: None Housing: Apartment Are you a primary home health aide caregiver to a significant other at home: No Do you presently have visiting nurse or other home services: Yes Do you presently have visiting nurse or other home services comment: daughter [employer] Tobacco History: Patient Tobacco Use Status: Never used Tobacco e-Cigarette/Vaping Use: Never Used Second Hand Smoke Exposure: No Advance Directives: Advance Directives Date on File: 09/26/21 Occupation Assessmet: service: No Current occupational status: disabled Home Medications and Allergies Current Medications: Current Medications Acetaminophen (Acetaminophen 325 Mg Tablet) 650 mg PO Q6H PRN PRN Reason: Pain, Mild (Pain Scale 1-3) Last Admin: 12/25/22 22:33 Dose: 650 mg Albuterol Sulfate (Albuterol Sulfate 90 Mcg 8 Gm Inhaler) 1 puff INHALE QID PRN PRN Reason: Shortness Of Breath Albuterol Sulfate (Albuterol Sulfate (0.083%) 2.5 Mg/3 Ml Vial.Neb) 2.5 mg INHALE Q6H PRN PRN Reason: for wheezing Amlodipine Besylate (Amlodipine Besylate 10 Mg Tablet) 10 mg PO DAILY [facility]; Protocol Last Admin: 12/26/22 08:24 Dose: 10 mg Aspirin (Aspirin 81 Mg Tab.Chew) 81 mg PO DAILY [facility] Last Admin: 12/26/22 08:24 Dose: 81 mg Atorvastatin Calcium (Atorvastatin Calcium 20 Mg Tablet) 20 mg PO BEDTIME [facility] Last Admin: 12/26/22 20:27 Dose: 20 mg Cyclobenzaprine HCl (Cyclobenzaprine Hcl 10 Mg Tablet) 10 mg PO TID PRN PRN Reason: Muscle Spasm Dicyclomine HCl (Dicyclomine Hcl 10 Mg Capsule) 20 mg PO QID [facility] Last Admin: 12/26/22 20:25 Dose: 20 mg Escitalopram Oxalate (Escitalopram Oxalate 10 Mg Tablet) 10 mg PO DAILY [facility] Last Admin: 12/26/22 08:24 Dose: 10 mg Gabapentin (Gabapentin 400 Mg Capsule) 800 mg PO BID [facility] Last Admin: 12/26/22 20:26 Dose: 800 mg Guaifenesin/Dextromethorphan (Guaifenesin Dm 100/10/5 Ml 5 Ml Syrup) 5 ml PO Q4H PRN PRN Reason: coug Last Admin: 12/26/22 12:34 Dose: 5 ml Heparin Sodium (Porcine) (Heparin Sodium,Porcine 5,000 Unit/Ml Vial) 3,400 unit 40 unit/kg (3400 unit) IVPUSH PROTOCOL BOLUS PRN; Protocol PRN Reason: 40 unit/kg - Heparin Protocol Last Admin: 12/26/22 13:58 Dose: 3,400 unit Heparin Sodium (Porcine) (Heparin Sodium,Porcine 5,000 Unit/Ml Vial) 6,800 unit 80 unit/kg (6800 unit) IVPUSH PROTOCOL BOLUS PRN; Protocol PRN Reason: 80 unit/kg - Heparin Protocol Heparin Sodium/Sodium Chloride (Heparin Sodium,Porcine/1/2ns) 25,000 unit in 250 mls @ 0 mls/hr IVCONT .Q0M [facility]; Protocol Last Titration: 12/26/22 20:58 Dose: 10 units/kg/hr, 8.53 mls/hr Melatonin (Melatonin 3 Mg Tablet) 6 mg PO BEDTIME PRN PRN Reason: Insomnia Metoprolol Tartrate (Metoprolol Tartrate 50 Mg Tablet) 50 mg PO BID [facility]; Protocol Last Admin: 12/26/22 20:27 Dose: 50 mg Mirtazapine (Mirtazapine 15 Mg Tablet) 15 mg PO BEDTIME [facility] Last Admin: 12/26/22 20:26 Dose: 15 mg Pt Own (Memantine 28 (Mg Capsule Er 24hr)) 28 mg PO DAILY [facility] Last Admin: 12/26/22 08:22 Dose: 28 mg Omeprazole (Omeprazole 20 Mg Capsule.Dr) 20 mg PO DAILY@0630 [facility] Last Admin: 12/26/22 05:41 Dose: Not Given Ondansetron HCl (Ondansetron Hcl 4 Mg/2 Ml Vial) 4 mg IVPUSH Q8H PRN PRN Reason: Nausea and Vomiting Oxycodone HCl (Oxycodone Hcl Immed Release 5 Mg Tablet) 10 mg PO Q8H PRN PRN Reason: severe pain Last Admin: 12/26/22 20:27 Dose: 10 mg Pharmacy Consult (Consult Rx Perform Med Rec) 1 each MISCELLANE ONCE PRN PRN Reason: Consult order Sodium Chloride (0.9 % Sodium Chloride Flush 3 Ml Syringe) 3 ml IVFLUSH QSHIFT [facility] Last Admin: 12/26/22 16:45 Dose: 3 ml Trazodone HCl (Trazodone Hcl 100 Mg Tablet) 200 mg PO BEDTIME [facility] Last Admin: 12/26/22 20:27 Dose: 200 mg Vitamin D (Cholecalciferol (Vitamin D3) 25 Mcg Tablet) 50 mcg PO DAILY [facility] Last Admin: 12/26/22 08:23 Dose: 50 mcg Home Medications Medication Instructions Recorded Confirmed Type citalopram 20 mg tablet 1 tab PO DAILY 05/05/22 12/24/22 History albuterol sulfate 90 mcg/actuation 1 puff PO QID PRN Shortness Of 12/24/22 12/24/22 History aerosol inhaler Breath amitriptyline 10 mg tablet 20 mg PO BEDTIME PRN Insomnia 12/24/22 12/24/22 History cyclobenzaprine 5 mg tablet 10 mg PO TID PRN Muscle Spasm 12/24/22 12/24/22 History oxycodone 10 mg tablet 10 mg PO Q8H PRN Pain 12/24/22 12/24/22 History Allergies Allergy/AdvReac Type Severity Reaction Status Date / Time No Known Allergies Allergy Verified 12/24/22 11:52 [No Known Allergies*] Physical Exam Vital signs: Vital Signs Temp 98.4 F 12/26/22 19:19 Pulse 90 12/26/22 19:19 Resp 20 12/26/22 19:19 BP 145/72 H 12/26/22 19:19 Pulse Ox 94 12/26/22 19:19 O2 Del Method Room Air 12/26/22 19:19 Intake & Output 12/26/22 12/26/22 12/27/22 06:59 18:59 06:59 Intake Total 58.042 / 250.000 596.008 / 1149.224 553.216 / 1149.224 Balance 58.042 / 250.000 596.008 / 1149.224 553.216 / 1149.224 Intake: Intake, Oral Amount 480 / 960 480 / 960 Intake, IV Amount 58.042 / 250.000 116.008 / 189.224 73.216 / 189.224 Heparin Sodium,Porcine/1/2NS 25 58.042 / 250.000 116.008 / 189.224 73.216 / 189.224 ,000 unit In 250 ml @ Per Protocol IVCONT .Q0M [facility] Rx#: [id number] Other: Breakfast % Eaten 75% Lunch % Eaten 75% Number of Unmeasured Voids 1 3 2 Number of Bowel Movements 0 Urine Bedside Commode Bathroom Urine Color Yellow Yellow Weight 85.3 kg - Constitutional Present: no acute distress - Routine HEENT Exam Head: Present: atraumatic ENT: Present: mucous membranes moist - Routine Neck Exam Present: supple - Routine Respiratory Exam Present: decreased breath sounds - Routine Cardiovascular Exam Cardiovascular: Present: RRR, S1, S2 - Routine Abdominal Exam Present: diminished bowel sounds - Routine Extremities Exam Present: Aleksandra's sign - Routine Skin Exam Present: intact - Routine Neurological Exam Present: alert, moving all extremities Hem/Onc Consult Result - Labs CBC & Chem 7: 12/26/22 06:29 12/26/22 06:29 Labs: Short CBC 12/26/22 Range/Units 06:29 WBC 9.5 (4.8-10.8) X10*3/uL Hgb 11.5 L (12.0-16.0) g/dl Hct 35.2 L (37.0-47.0) % Plt Count 268 (160-400) X10*3/uL BMP 12/26/22 06:29 Sodium 141 Potassium 4.1 Chloride 107 Carbon Dioxide 22 BUN 14 Creatinine 0.90 Calcium 8.6 Assessment and Plan Patient Active problem list reviewed?: Yes (1) DVT (deep venous thrombosis) Status: Acute Assessment and plan: I agree with current management of anticoagulation. (2) Pulmonary emboli Status: Acute Assessment and plan: I agree with anticoagulation as you are doing. (3) Bilateral breast cancer Status: Acute Assessment and plan: 72-year-old lady with a long history of breast cancer. She had right breast cancer in October 2003. She had lumpectomy irradiation and 5 years of Arimidex therapy. 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 It was receptor negative. She had lumpectomy and radiation. She then developed a new breast cancer on the right last year. Mammogram from January 2022: -Subtle asymmetric density with ultrasound correlate 9:00 position under 1.5 cm. Left: -Mammography shows no significant change from prior studies. -Benign-appearing hypoechoic nodule under 5 mm 12:00 position. ASSESSMENT: BI-RADS 4: Suspicious RECOMMENDATION: -Right: Ultrasound-guided core biopsy right breast lesion. Pathology from 01/31 Biopsy: 1. 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 ER positive 100%. Strong intensity. IA positive 70%, moderate intensity. HER2 Smooth negative. Proliferation index high 30% Right mastectomy from 02/19: Tumor size 1.4 cm. Invasive carcinoma with mixed ductal and lobular features, grade 2. Metastatic carcinoma present in 1 of 4 lymph nodes. Stage pT1c,N1. Left simple mastectomy, on , pathology:: Lobular carcinoma in Situ, negative for invasive carcinoma. Explained that she will definitely benefit from antiestrogen therapy. Question was if there would be additional benefit from chemotherapy. l proceeded with Oncotype DX testing, to assess the need for chemotherapy. This revealed a score of 8. No benefit from chemotherapy. l also proceeded with baseline bone mineral density to select the choice of antiestrogen agent. This revealed a score of -2.2. I shared the results with her. l checked labs, including tumor marker (Ca 27.29: 15) and vitamin-D level; was low at 20.5. She was started on calcium and D replacement. In view of the low bone density, l decided to start out with tamoxifen, as the antiestrogen agent of choice. Possible side effects including, headaches dizziness, nausea vomiting diarrhea, pancytopenia, risk of endometrial toxicity, thromboembolic phenomena and ocular toxicity were all addressed with her. She understood and was willing to proceed. She had been tolerating it well. However she now presents with pulmonary emboli and DVT. PLAN: Will hold off further tamoxifen for now. Will consider starting an aromatase inhibitor, after she has stabilized. - Time Spent With Patient Time Spent with Patient (in minutes): 30
[2022-12-27] VITALS (10 sets, daily range): BP systolic 104–131; BP diastolic 58–82; PULSE 70–89; RESP 17–20; TEMP 36.6–37.7; O2SAT 91–98
[2022-12-27] MEDS: 0.9 % Sodium Chloride Flush 3 ML SYRINGE IVFLUSH ×3 (00:53→18:34)
[2022-12-27] MEDS: Heparin Sodium,Porcine/1/2NS 25,000 UNIT/250 ML IV.SOLN 8.53 UNIT IVCONT (01:21)
[2022-12-27] MEDS: Omeprazole 20 MG CAPSULE.DR PO (05:58)
[2022-12-27] MEDS: Escitalopram Oxalate 10 MG TABLET PO (08:33)
[2022-12-27] MEDS: Metoprolol Tartrate 50 MG TABLET PO ×2 (08:33→20:09)
[2022-12-27] MEDS: Gabapentin 400 MG CAPSULE 800 MG PO ×2 (08:34→20:08)
[2022-12-27] MEDS: Dicyclomine HCl 10 MG CAPSULE 20 MG PO ×4 (08:34→20:08)
[2022-12-27] MEDS: Apixaban 5 MG TABLET 10 MG PO ×2 (08:34→20:09)
[2022-12-27] MEDS: amLODIPine Besylate 10 MG TABLET PO (08:35)
[2022-12-27] MEDS: Cholecalciferol (Vitamin D3) 25 MCG TABLET 50 MCG PO (08:36)
[2022-12-27] MEDS: Aspirin 81 MG TAB.CHEW PO (08:36)
[2022-12-27] MEDS: oxyCODONE HCl Immed Release 5 MG TABLET 10 MG PO ×2 (08:40→15:32)
[2022-12-27] MEDS: Acetaminophen 325 MG TABLET 650 MG PO ×2 (08:40→15:32)
--- NOTE | 2022-12-27 14:27 | W.MHC.F2F ---
Service Date Service Date: 12/27/22 Encounter Date of encounter: 12/27/22 Reasons for Services Signs and symptoms assessed: Dyspnea on Exertion,Muscle Weakness Reason for physical therapy: home safety and mobility, therapeutic exercises, gait/transfer training, assess need for DME, ADL training and energy conservation MD Overseeing Care: Milan Mcgraw Homebound: Leaving the home is medically contraindicated at this time without the asist of a device and/or another person due th the listed conditions above and below. Reason homebound: unsteady gait / fall risk Homebound supporting statement: Gait Training, Therapeutic Activities, Therapeutic Exercise, Patient Education, Safety,Other Certification: Based on the above findings, I certify that this patient is confined to the home and needs intermittent long term care, physical therapy and/or speech therapy, or continues to need occupational therapy. The patient is under my care, and I have initiated the establishment of the plan of care. The patient will be followed by a physician who will periodically review the plan of care. Time Spent With Patient Time: Total time managing care of this patient today ____ minutes.
--- NOTE | 2022-12-27 14:38 | P.DS_ITS ---
DS: Providers Provider Date of Service: 12/29/22 Date of admission: 12/25/22 00:37 Date of discharge: 12/29/22 Primary care physician: Milan Mcrgaw PA-C Consults: 12/24/22 20:00 Consult to Vascular Surgery Stat Consulting Provider: [facility] Reason for consultation: Full length DVT in LLE Has provider been notified: Yes 12/25/22 02:21 Consult to Cardiology Routine Consulting Provider: [facility] Reason for consultation: NSTEMI 12/25/22 08:29 Consult to Hematology / Oncology Routine Consulting Provider: [facility]ology Reason for consultation: submassive PE, CA pt 12/26/22 10:01 Consult to Hematology / Oncology Routine Consulting Provider: Chinedu Jaramillo Reason for consultation: Ella pt. clot,hx breast CA DS: Diagnosis Discharge Diagnosis (1) DVT (deep venous thrombosis): Status: Acute (2) Pulmonary emboli: Status: Acute (3) Bilateral breast cancer: Status: Acute (4) Non-STEMI (non-ST elevated myocardial infarction): Status: Acute DS: Summary Hospital Course Hospital Course: from admission H+P by hospitalist Etelvina Silva, 12/25/22: This is a 72-year-old female with pertinent history of mood disorder, dementia, essential hypertension, gastroesophageal reflux disease, peripheral neuropathy, history of breast cancer status post mastectomy who was sent from ultrasound for treatment of left leg DVT.? Patient states she has been having left leg swelling and pain that has been ongoing for the past 3 days.? Worse with ambulation.? Also complains of dyspnea, worse with exertion and pleuritic chest discomfort.? No cough, fevers and chills.? Patient went for ultrasound which showed DVT and she was sent to the ER.? Does have personal history of breast cancer.? No history of blood clots in the past.? She denies palpitations, abdominal pain, changes in urinary or bowel habits. In the emergency department, imaging with bilateral PE 72yo F with hx breast CA s/p mastectomy on tamoxifen, HTN, GERD, peripheral neuropathy, dementia, and mood disorder who was admitted to the [facility] for extensive LLE DVT and bilateral PE. She was placed on an IV heparin drip. Vascular Surgery was consulted and recommended against endovascular intervention. She was not hypoxic and she was hemodynamically stable. Hematology was consulted and she was transitioned from IV heparin to PO apixaban. Tamoxifen was discontinued due to its thrombophilic side effects. She was noted to have elevated Tn-I [[phone]] suspected due to demand ischemia from the PE rather than type 1 [place]. Cardiology was consulted and an echocardiogram showed LVEF 58%, the possibility of apical inferior hypokinesis [though this could have been artefactual], mild pulmonary hypertension, and mildly decreased RV systolic function without any RV strain or septal bowing. Outpatient cardiology follow-up was recommended with possible repeat echo and/or stress testing. She was evaluated by PT and per their recommendation, discharged home with VNA services for home PT. She did not qualify for home oxygen. She should follow up with her wage and salary administrator-oncologist, Chinedu Jaramillo, in [address] Jaramillo was notified about the hospital course and plan and agreed with the anticoagulation chosen and the discharge plan. Discharge was planned for 12/27/22 but her family wished to appeal the discharge due to concerns about her going home. STR placement was offered but declined. The appeal was denied and she was discharged home with VNA services as originally planned, but on 12/29/22. Time Spent with Patient Time attestation: Total time managing care of this patient today ___35_ minutes. Discharge coordination time: Greater than 30 minutes Quality: Safe Use of Opioids Does Pt have an Active Cancer Diagnosis on the Problem List?: No Quality: Stroke Does the patient have a stroke diagnosis?: No Physical Exam Vital Signs: Vital Signs: Temp Pulse Resp BP Pulse Ox O2 Del Method O2 Flow Rate 97.2 F 79 17 196/89 H 98 Room Air 2 12/29/22 08:00 12/29/22 08:00 12/29/22 08:00 12/29/22 08:00 12/29/22 08:00 12/29/22 08:00 12/28/22 04:00 Gen: in no acute distress HEENT: sclera anicteric, moist mucus membranes Neck: supple Lungs: clear to auscultation bilaterally Heart: regular rate and rhythm, no murmurs Abd: soft, non-tender, non-distended Ext: LLE swollen, tender Skin: warm/well-perfused Neuro: alert and oriented x3, no focal findings Psych: appropriate affect DS: Data Data Completed and Pending Completed studies during hospitalization [Text1]: Laboratory Results WBC 9.5 X10*3/uL (4.8-10.8) 12/26/22 06:29 RBC 3.99 X10*6/uL (4.20-5.50) L 12/26/22 06:29 Hgb 11.5 g/dl (12.0-16.0) L 12/26/22 06:29 Hct 35.2 % (37.0-47.0) L 12/26/22 06:29 MCV 88.2 fL (80.0-98.0) 12/26/22 06:29 MCH 28.8 pg (27.0-33.0) 12/26/22 06:29 MCHC 32.7 g/dl (31.0-35.0) 12/26/22 06:29 RDW 13.3 % (11.0-16.0) 12/26/22 06:29 Plt Count 268 X10*3/uL (160-400) 12/26/22 06:29 MPV 9.8 fL (9.4-12.3) 12/26/22 06:29 Immature Gran % (Auto) 0.4 % (0.0-0.4) 12/25/22 05:22 Neut % (Auto) 65.8 % (45-73) 12/25/22 05:22 Lymph % (Auto) 24.5 % (20-40) 12/25/22 05:22 [place] % (Auto) 6.5 % (2-11) 12/25/22 05:22 Eos % (Auto) 2.4 % (0-4) 12/25/22 05:22 Baso % (Auto) 0.4 % (0-2) 12/25/22 05:22 Lymph # (Auto) 2.7 X10*3/uL (1.2-4.9) 12/25/22 05:22 [place] # (Auto) 0.7 X10*3/uL (0.1-1.2) 12/25/22 05:22 Eos # (Auto) 0.3 X10*3/uL (0.0-0.4) 12/25/22 05:22 Baso # (Auto) 0.0 X10*3/uL (0.0-0.2) 12/25/22 05:22 Abs Immat Gran (auto) 0.04 X10*3/uL (0.00-0.03) H 12/25/22 05:22 Absolute Neuts (auto) 7.3 x10*3/uL (2.0-8.3) 12/25/22 05:22 Absolute Nucleated RBC 0.000 X10*3/uL (0.0-0.012) 12/26/22 06:29 Nucleated RBC % (auto) 0.0 /100WBC (0.0-0.2) 12/26/22 06:29 PT 12.0 SEC (11.1-13.3) 12/25/22 05:22 INR 1.0 (0.9-1.1) 12/25/22 05:22 APTT 24.1 SEC (26.0-36.4) L 12/24/22 20:27 aPTT Heparin Protocol 60.0 SEC (53-77.9) D 12/27/22 02:41 VBG pH 7.41 (7.32-7.43) 12/26/22 06:33 VBG pCO2 43 mmHg 12/26/22 06:33 VBG pO2 49 mmHg 12/26/22 06:33 VBG HCO3 28 mmol/L (22-26) H 12/26/22 06:33 VBG O2 Saturation 79.0 % 12/26/22 06:33 VBG Base Excess 3.3 mmol/L 12/26/22 06:33 Sodium 141 mmol/L (135-145) 12/26/22 06:29 Potassium 4.1 mmol/L (3.3-5.1) 12/26/22 06:29 Chloride 107 mmol/L (96-108) 12/26/22 06:29 Carbon Dioxide 22 mmol/L (22-29) 12/26/22 06:29 Anion Gap 16 (12-20) 12/26/22 06:29 BUN 14 mg/dL (9-16) 12/26/22 06:29 Creatinine 0.90 mg/dL (0.5-1.4) 12/26/22 06:29 Estim Creat Clear Calc 53.1 12/26/22 06:29 Estimated GFR > 60 12/26/22 06:29 Random Glucose 148 mg/dL (60-115) H 12/26/22 06:29 Calcium 8.6 mg/dL (8.4-10.2) 12/26/22 06:29 Total Bilirubin 0.3 mg/dL (0.0-1.0) 12/24/22 19:00 AST 22 U/L (5-31) 12/24/22 19:00 ALT 20 U/L (0-31) 12/24/22 19:00 Alkaline Phosphatase 74 U/L (39-117) 12/24/22 19:00 Troponin I High Sens 485.3 ng/L (<3.5-17.0) H* 12/25/22 05:22 B-Natriuretic Peptide 69 pg/mL (<100) 12/24/22 19:00 Total Protein 7.8 g/dL (6.5-8.0) 12/24/22 19:00 Albumin 4.1 g/dL (3.5-5.0) 12/24/22 19:00 Impressions Chest X-Ray 12/24/22 22:31 IMPRESSION: 1. Right IJ CVC tip projects at the level of the cavoatrial junction. No pneumothorax. 2. Unchanged prominence of the cardiomediastinal silhouette as well as elevation of the right hemidiaphragm. Labs on day of discharge: Laboratory Results - last 24 hr 12/26/22 12/27/22 20:05 02:41 aPTT Heparin Protocol 78.4 H D 60.0 D Discharge Plan Discharge Anticipated Discharge Date/Time: 12/27/22 15:29 Patient Disposition: Home Health Service Discharge Diagnosis: deep venous thrombosis/pulmonary embolism NSTEMI Referrals: Sandra FARRELL [Outside] - 1 Week Chinedu Jaramillo MD [Physician] - 2 Weeks Milan Mcgraw PA-C [Primary Care Provider] - 1 Week Johnathan Rocha MD [Physician] - 2 Weeks Discharge Medications: New Eliquis 5 mg Tablet See Rx Instructions .ROUTE .COMPLEX Qty: 74 0RF Rx Instructions: 2 tabs (10 mg) twice daily for 7 days, then 1 tab (5 mg) twice daily Continued metoprolol tartrate 50 mg tablet 50 mg PO BID Qty: 180 2RF albuterol sulfate 2.5 mg /3 mL (0.083 %) solution for nebulization 2.5 mg inhalation Q6H PRN (Reason: for wheezing) Qty: 150 1RF omeprazole 20 mg capsule,delayed release(DR/EC) 20 mg PO DAILY 90 Days Qty: 90 1RF acetaminophen 325 mg tablet 325 mg PO Q6H PRN (Reason: pain) 30 Days Qty: 120 3RF amlodipine 10 mg tablet 10 mg PO DAILY 90 Days Qty: 90 1RF mirtazapine [Remeron] 15 mg tablet 15 mg PO BEDTIME 30 Days Qty: 30 6RF atorvastatin 20 mg tablet 20 mg PO BEDTIME Qty: 90 1RF trazodone 100 mg tablet 200 mg PO BEDTIME 90 Days Qty: 180 1RF dicyclomine 10 mg capsule 20 mg PO QID 30 Days Qty: 240 3RF cholecalciferol (vitamin D3) [Vitamin D3] 50 mcg (2,000 unit) Tablet 50 mcg PO DAILY Qty: 30 4RF citalopram 20 mg tablet 1 tab PO DAILY amitriptyline 10 mg tablet 20 mg PO BEDTIME PRN (Reason: Insomnia) albuterol sulfate 90 mcg/actuation HFA aerosol inhaler 1 puff PO QID PRN (Reason: Shortness Of Breath) cyclobenzaprine 5 mg tablet 10 mg PO TID PRN (Reason: Muscle Spasm) oxycodone 10 mg tablet 10 mg PO Q8H PRN (Reason: Pain) Rx Instructions: Cancer related pain- (DME) FreeStyle Lite Strips Strip See Rx Instructions .ROUTE .MEDSUPPLY Qty: 100 3RF Rx Instructions: As directed (DME) blood-glucose meter [FreeStyle Lite Meter] Kit See Rx Instructions .ROUTE .MEDSUPPLY Qty: 1 0RF Rx Instructions: As directed (DME) lancets [FreeStyle Lancets] 28 gauge misc See Rx Instructions .ROUTE .MEDSUPPLY Qty: 100 3RF Rx Instructions: As directed (DME) Blood Pressure Cuff Misc See Rx Instructions .ROUTE .MEDSUPPLY Qty: 1 0RF Rx Instructions: As directed gabapentin 800 mg tablet 800 mg PO BID 90 Days Qty: 180 1RF (DME) incontinence pad, liner, disp Pad See Rx Instructions .Route Qty: 400 0RF Rx Instructions: As directed (DME) Briefs, Adult-Extra Large [facility] See Rx Instructions .Route Qty: 200 3RF Rx Instructions: As directed memantine 28 mg capsule,sprinkle,ER 24hr 28 mg PO DAILY 30 Days Qty: 30 6RF Discontinued ibuprofen 800 mg tablet 800 mg PO Q8H PRN (Reason: pain) 30 Days Qty: 90 4RF aspirin 81 mg tablet,chewable 81 mg PO DAILY 30 Days Qty: 30 3RF Rx Instructions: at bedtime tamoxifen 20 mg Tablet 20 mg PO DAILY Qty: 90 4RF Discharge Orders: Discharge Order (Routine); Ordered 12/29/22 Ordered By: Barron Brown Diet: Diabetic diet Activity on Discharge: As tolerated Stand Alone Forms: Patient Portal Discharge page Care Plan Goals: treatment of clots Health Concerns: pulmonary embolism deep venous thrombosis NSTEMI Plan of Treatment: stop ibuprofen and aspirin start APIXABAN [ELIQUIS] 5 mg tabs: 10 mg [2 tabs] TWICE DAILY for ONE WEEK, then change to 5 mg [1 tab] TWICE DAILY stop tamoxifen follow up with wage and salary administrator-oncologist Dr Jaramillo in 2 weeks follow up with cut off sawyer log at [facility] in 2 weeks for cardiac workup to include possible repeat echocardiogram and possible stress test. no strenuous activity for 1 week. Please follow up with your primary care doctor within 1 week. Return to the hospital if you experience recurrent or worsening symptoms. Assessment: See Discharge Summary. Discharge Date/Time: 12/29/22 11:37
--- NOTE | 2022-12-27 14:39 | MHC.CM.PN ---
Patient has been medically cleared for dc to home today with services. A referral was made to [facility], who has been made aware of today's dc. Last IMM addressed on 12/25/2022.
--- NOTE | 2022-12-27 14:56 | HO.PM.IMPN ---
Subjective Subjective Date of Service: 12/27/22 Interval History: some dyspnea with exertion not hypoxic does not qualify for home oxygen left leg swollen no chest pain This history was taken in Hebrew from the patient. Review of Systems Review of Systems: Yes all other systems are reviewed and are negative Physical Exam Vital Signs: Vital Signs: Last Vital Signs Temp 99.8 F 12/27/22 11:23 Pulse 71 12/27/22 11:23 Resp 20 12/27/22 11:23 BP 104/59 L 12/27/22 11:23 Pulse Ox 92 12/27/22 11:23 O2 Del Method Room Air 12/27/22 11:23 BMI result Body Mass Index 36.7 Gen: in no acute distress HEENT: sclera anicteric, moist mucus membranes Neck: supple Lungs: clear to auscultation bilaterally Heart: regular rate and rhythm, no murmurs Abd: soft, non-tender, non-distended Ext: LLE swollen, tender Skin: warm/well-perfused Neuro: alert and oriented x3, no focal findings Psych: appropriate affect Objective Data Active Medications Acetaminophen (Acetaminophen 325 Mg Tablet) 650 mg PO Q6H PRN PRN Reason: Pain, Mild (Pain Scale 1-3) Last Admin: 12/27/22 08:40 Dose: 650 mg Documented By: LACY Albuterol Sulfate (Albuterol Sulfate 90 Mcg 8 Gm Inhaler) 1 puff INHALE QID PRN PRN Reason: Shortness Of Breath Albuterol Sulfate (Albuterol Sulfate (0.083%) 2.5 Mg/3 Ml Vial.Neb) 2.5 mg INHALE Q6H PRN PRN Reason: for wheezing Amlodipine Besylate (Amlodipine Besylate 10 Mg Tablet) 10 mg PO DAILY [facility]; Protocol Last Admin: 12/27/22 08:35 Dose: 10 mg Documented By: LACY Apixaban (Apixaban 5 Mg Tablet) 10 mg PO BID [facility] Stop: 01/02/23 21:01 Last Admin: 12/27/22 08:34 Dose: 10 mg Documented By: LACY Aspirin (Aspirin 81 Mg Tab.Chew) 81 mg PO DAILY [facility] Last Admin: 12/27/22 08:36 Dose: 81 mg Documented By: LACY Atorvastatin Calcium (Atorvastatin Calcium 20 Mg Tablet) 20 mg PO BEDTIME [facility] Last Admin: 12/26/22 20:27 Dose: 20 mg Documented By: ISABELLE Cyclobenzaprine HCl (Cyclobenzaprine Hcl 10 Mg Tablet) 10 mg PO TID PRN PRN Reason: Muscle Spasm Dicyclomine HCl (Dicyclomine Hcl 10 Mg Capsule) 20 mg PO QID [facility] Last Admin: 12/27/22 14:41 Dose: 20 mg Documented By: LACY Escitalopram Oxalate (Escitalopram Oxalate 10 Mg Tablet) 10 mg PO DAILY [facility] Last Admin: 12/27/22 08:33 Dose: 10 mg Documented By: LACY Gabapentin (Gabapentin 400 Mg Capsule) 800 mg PO BID [facility] Last Admin: 12/27/22 08:34 Dose: 800 mg Documented By: LACY Guaifenesin/Dextromethorphan (Guaifenesin Dm 100/10/5 Ml 5 Ml Syrup) 5 ml PO Q4H PRN PRN Reason: coug Last Admin: 12/26/22 12:34 Dose: 5 ml Documented By: ABEL Melatonin (Melatonin 3 Mg Tablet) 6 mg PO BEDTIME PRN PRN Reason: Insomnia Metoprolol Tartrate (Metoprolol Tartrate 50 Mg Tablet) 50 mg PO BID [facility]; Protocol Last Admin: 12/27/22 08:33 Dose: 50 mg Documented By: LACY Mirtazapine (Mirtazapine 15 Mg Tablet) 15 mg PO BEDTIME [facility] Last Admin: 12/26/22 20:26 Dose: 15 mg Documented By: ISABELLE Pt Own (Memantine 28 (Mg Capsule Er 24hr)) 28 mg PO DAILY [facility] Last Admin: 12/27/22 08:40 Dose: 28 mg Documented By: LACY Omeprazole (Omeprazole 20 Mg Capsule.) 20 mg PO DAILY@0630 [facility] Last Admin: 12/27/22 05:58 Dose: 20 mg Documented By: ISABELLE Ondansetron HCl (Ondansetron Hcl 4 Mg/2 Ml Vial) 4 mg IVPUSH Q8H PRN PRN Reason: Nausea and Vomiting Oxycodone HCl (Oxycodone Hcl Immed Release 5 Mg Tablet) 10 mg PO Q8H PRN PRN Reason: severe pain Last Admin: 12/27/22 08:40 Dose: 10 mg Documented By: LACY Pharmacy Consult (Consult Rx Perform Med Rec) 1 each MISCELLANE ONCE PRN PRN Reason: Consult order Sodium Chloride (0.9 % Sodium Chloride Flush 3 Ml Syringe) 3 ml IVFLUSH QSHIFT [facility] Last Admin: 12/27/22 00:53 Dose: 3 ml Documented By: ISABELLE Trazodone HCl (Trazodone Hcl 100 Mg Tablet) 200 mg PO BEDTIME [facility] Last Admin: 12/26/22 20:27 Dose: 200 mg Documented By: ISABELLE Vitamin D (Cholecalciferol (Vitamin D3) 25 Mcg Tablet) 50 mcg PO DAILY [facility] Last Admin: 12/27/22 08:36 Dose: 50 mcg Documented By: LACY Labs 12/26/22 06:29 12/26/22 06:29 Labs: Laboratory Results - last 24 hr 12/26/22 12/27/22 20:05 02:41 aPTT Heparin Protocol 78.4 H D 60.0 D Assessment and Plan (1) Pulmonary emboli: Status: Acute (2) DVT (deep venous thrombosis): Status: Acute Plan d3 72yo F with hx breast CA s/p mastectomy, HTN, GERD, peripheral neuropathy, dementia, mood disorder admitted for extensive LLE DVT and bilateral PE no hypoxia VTE - transitioned from heparin gtt to oral apixaban today - per Vascular Surgery, no endovascular intervention - Heme/Onc consulted elevated Tn-I/possible NSTEMI - likely due to PE rather than a type 1 MS per Cardiology - TTE 12/25/22: - The left ventricular systolic function is normal.? The ? calculated ejection fraction is 58% by biplane method. ? - Cannot exclude apical inferior hypokinesis.? - No obvious valvular pathology seen on this study.? - Mild pulmonary hypertension is present. - per Cardiology the area of apical hypokinesis may be artefactual HTN - continue amlodipine, metoprolol mood disorder - continue escitalopram, mirtazapine, trazodone dementia - continue memantine hx breast CA - hold tamoxifen due to VTE GERD - continue PPI VTE ppx - apixaban dispo - plan home with PT. Discharge was planned for today but the family does not feel comfortable with this and they wish to appeal the discharge Time Spent With Patient Time: Total time managing care of this patient today __40__ minutes. Quality Stroke Does the patient have a stroke diagnosis?: No VTE Prior VTE?: No VTE Risk Level:: Medical - moderate - high VTE Device Contraindication: Treatment Not Indicated VTE Drug Contraindication: N/A - Med Ordered
--- NOTE | 2022-12-27 15:17 | MHC.CM.PN ---
CM met with Patient and 3 family members at bedside; they wish to appeal the dc. IMM addressed and original has been given to Patient/family and a copy has been placed on the chart. CM/Management are aware and appeal process is in progress. CM instructed Patient/family that the call to [facility] must be made today.
--- NOTE | 2022-12-27 15:42 | PC.NURSE ---
TLC removed from left neck. Catheter tip intact upon removal. Occlusive dressing applied. No bleeding noted at this time to dressing. Patient/ family educated on lying flat for 20 minutes to prevent bleeding.
[2022-12-27] MEDS: Morphine Sulfate 4 MG/ML CARTRIDGE IVPUSH (18:06)
--- NOTE | 2022-12-27 19:59 | PC.NURSE ---
Assumed care at 15:00. Patient alert and oriented x4, [place] speaking, and communicated with in [place]. Patient with no signs of respiratory distress or bleeding from site of TLC removal. Patient has left EG that is positional, but able to flush and administer medications with application of gentle traction. Patient reported 9/10 burning pain to left lower extremity two hours after adminitration of her oxycodone and tylenol per [facility]; discussed with MD and new order for 4 mg IV morphine PRN adminstered with effect. Patient left leg with no notable discoloration, but does feel warm and painful as noted above. RA, breathing easy and regular. No complaints of chest pain. Is in sinus rhythm on telemetry.
[2022-12-27] MEDS: traZODone HCL 100 MG TABLET 200 MG PO (20:08)
[2022-12-27] MEDS: Mirtazapine 15 MG TABLET PO (20:09)
[2022-12-27] MEDS: Atorvastatin Calcium 20 MG TABLET PO (20:09)
[2022-12-28 04:00] VITALS: BP 153/98; PULSE 72; RESP 18; TEMP 37; O2SAT 93
[2022-12-28] MEDS: Omeprazole 20 MG CAPSULE.DR PO (05:17)
[2022-12-28 07:22] VITALS: BP 119/70; PULSE 69; RESP 18; TEMP 36.8; O2SAT 93
[2022-12-28] MEDS: Escitalopram Oxalate 10 MG TABLET PO (08:48)
[2022-12-28] MEDS: Cholecalciferol (Vitamin D3) 25 MCG TABLET 50 MCG PO (08:48)
[2022-12-28] MEDS: Apixaban 5 MG TABLET 10 MG PO ×2 (08:49→20:40)
[2022-12-28] MEDS: Dicyclomine HCl 10 MG CAPSULE 20 MG PO ×4 (08:49→20:40)
[2022-12-28] MEDS: Gabapentin 400 MG CAPSULE 800 MG PO ×2 (08:49→20:41)
[2022-12-28] MEDS: amLODIPine Besylate 10 MG TABLET PO (08:49)
[2022-12-28] MEDS: Metoprolol Tartrate 50 MG TABLET PO ×2 (08:49→20:41)
[2022-12-28 10:10] VITALS: BP 119/70; PULSE 69; O2SAT 93
[2022-12-28 11:17] VITALS: BP 123/56; PULSE 80; RESP 20; TEMP 37.6; O2SAT 96
--- NOTE | 2022-12-28 11:45 | P.PNIM_ITS ---
Subjective Subjective Date of Service: 12/28/22 Interval History: LLE pain improved dyspnea on exertion pleuritic chest pain not hypoxic This history was taken in Bengali from the patient. Review of Systems Review of Systems: Yes all other systems are reviewed and are negative Physical Exam Vital Signs: Vital Signs: Last Vital Signs Temp 99.6 F 12/28/22 11:17 Pulse 80 12/28/22 11:17 Resp 20 12/28/22 11:17 BP 123/56 L 12/28/22 11:17 Pulse Ox 96 12/28/22 11:17 O2 Del Method Room Air 12/28/22 11:17 O2 Flow Rate 2 12/28/22 04:00 BMI result Body Mass Index 36.7 Gen: in no acute d istress HEENT: scl era anicteric, [address] [facility] mucus membranes Neck: supple Lung s: clear to auscul tation bilaterally Heart: regular ra te and rhythm, no murmurs Abd: soft, non-tender, non-d istended Ext: LLE swollen, tender Sk in: warm/well-perf used Neuro: alert and oriented x3, n o focal findings P sych: appropriate affect Objective Data Active Medications Acetaminophen (Acetaminophen 325 Mg Tablet) 650 mg PO Q6H PRN PRN Reason: Pain, Mild (Pain Scale 1-3) Last Admin: 12/27/22 15:32 Dose: 650 mg Documented By: LACY Albuterol Sulfate (Albuterol Sulfate 90 Mcg 8 Gm Inhaler) 1 puff INHALE QID PRN PRN Reason: Shortness Of Breath Albuterol Sulfate (Albuterol Sulfate (0.083%) 2.5 Mg/3 Ml Vial.Neb) 2.5 mg INHALE Q6H PRN PRN Reason: for wheezing Amlodipine Besylate (Amlodipine Besylate 10 Mg Tablet) 10 mg PO DAILY [facility]; Protocol Last Admin: 12/28/22 08:49 Dose: 10 mg Documented By: ABEL Apixaban (Apixaban 5 Mg Tablet) 10 mg PO BID [facility] Stop: 01/02/23 21:01 Last Admin: 12/28/22 08:49 Dose: 10 mg Documented By: ABEL Atorvastatin Calcium (Atorvastatin Calcium 20 Mg Tablet) 20 mg PO BEDTIME [facility] Last Admin: 12/27/22 20:09 Dose: 20 mg Documented By: HUANG Cyclobenzaprine HCl (Cyclobenzaprine Hcl 10 Mg Tablet) 10 mg PO TID PRN PRN Reason: Muscle Spasm Dicyclomine HCl (Dicyclomine Hcl 10 Mg Capsule) 20 mg PO QID [facility] Last Admin: 12/28/22 08:49 Dose: 20 mg Documented By: ABEL Escitalopram Oxalate (Escitalopram Oxalate 10 Mg Tablet) 10 mg PO DAILY [facility] Last Admin: 12/28/22 08:48 Dose: 10 mg Documented By: ABEL Gabapentin (Gabapentin 400 Mg Capsule) 800 mg PO BID [facility] Last Admin: 12/28/22 08:49 Dose: 800 mg Documented By: ABEL Guaifenesin/Dextromethorphan (Guaifenesin Dm 100/10/5 Ml 5 Ml Syrup) 5 ml PO Q4H PRN PRN Reason: coug Last Admin: 12/26/22 12:34 Dose: 5 ml Documented By: ABEL Melatonin (Melatonin 3 Mg Tablet) 6 mg PO BEDTIME PRN PRN Reason: Insomnia Metoprolol Tartrate (Metoprolol Tartrate 50 Mg Tablet) 50 mg PO BID [facility]; Protocol Last Admin: 12/28/22 08:49 Dose: 50 mg Documented By: ABEL Mirtazapine (Mirtazapine 15 Mg Tablet) 15 mg PO BEDTIME [facility] Last Admin: 12/27/22 20:09 Dose: 15 mg Documented By: HUANG Morphine Sulfate (Morphine Sulfate 4 Mg/Ml Cartridge) 4 mg IVPUSH Q4H PRN; Protocol PRN Reason: severe pain Last Admin: 12/27/22 18:06 Dose: 4 mg Documented By: SARWAT Pt Own (Memantine 28 (Mg Capsule Er 24hr)) 28 mg PO DAILY [facility] Last Admin: 12/28/22 08:48 Dose: 28 mg Documented By: ABEL Omeprazole (Omeprazole 20 Mg Capsule.Dr) 20 mg PO DAILY@0630 [facility] Last Admin: 12/28/22 05:17 Dose: 20 mg Documented By: HUANG Ondansetron HCl (Ondansetron Hcl 4 Mg/2 Ml Vial) 4 mg IVPUSH Q8H PRN PRN Reason: Nausea and Vomiting Oxycodone HCl (Oxycodone Hcl Immed Release 5 Mg Tablet) 10 mg PO Q8H PRN PRN Reason: severe pain Last Admin: 12/27/22 15:32 Dose: 10 mg Documented By: LACY Pharmacy Consult (Consult Rx Perform Med Rec) 1 each MISCELLANE ONCE PRN PRN Reason: Consult order Sodium Chloride (0.9 % Sodium Chloride Flush 3 Ml Syringe) 3 ml IVFLUSH QSHIFT [facility] Last Admin: 12/28/22 09:02 Dose: Not Given Documented By: ABEL Non-Admin Reason: Previously Administered Trazodone HCl (Trazodone Hcl 100 Mg Tablet) 200 mg PO BEDTIME [facility] Last Admin: 12/27/22 20:08 Dose: 200 mg Documented By: HUANG Vitamin D (Cholecalciferol (Vitamin D3) 25 Mcg Tablet) 50 mcg PO DAILY [facility] Last Admin: 12/28/22 08:48 Dose: 50 mcg Documented By: ABEL Labs 12/26/22 06:29 12/26/22 06:29 Assessment and Plan (1) Pulmonary emboli: Status: Acute (2) DVT (deep venous thrombosis): Status: Acute Plan d4 72yo F with hx breast CA s/p mastectomy, HTN, GERD, peripheral neuropathy, dementia, mood disorder admitted for extensive LLE DVT and bilateral PE no hypoxia VTE - transitioned from heparin gtt to oral apixaban on 12/27/22 - per Vascular Surgery, no endovascular intervention - Heme/Onc consulted, agree with anticoagulation plan elevated Tn-I/possible NSTEMI - likely due to PE rather than a type 1 UT per Cardiology - TTE 12/25/22: - The left ventricular systolic function is normal.? The ? calculated ejection fraction is 58% by biplane method. ? - Cannot exclude apical inferior hypokinesis.? - No obvious valvular pathology seen on this study.? - Mild pulmonary hypertension is present. - per Cardiology the area of apical hypokinesis may be artefactual but will follow as outpt with possible repeat TTE vs stress test HTN - continue amlodipine, metoprolol mood disorder - continue escitalopram, mirtazapine, trazodone dementia - continue memantine hx breast CA - hold tamoxifen due to VTE GERD - continue PPI VTE ppx - apixaban dispo - plan home with PT. Discharge was planned for yesterday but family appealed discharge. Appeal was lost, pt will be discharged tomorrow home with PT unless pt and family agree to STR placement Time Spent With Patient Time: Total time managing care of this patient today __35__ minutes. Quality Stroke Does the patient have a stroke diagnosis?: No VTE Prior VTE?: No VTE Risk Level:: Medical - moderate - high VTE Device Contraindication: Treatment Not Indicated VTE Drug Contraindication: N/A - Med Ordered
[2022-12-28] MEDS: oxyCODONE HCl Immed Release 5 MG TABLET PO ×2 (13:37→20:46)
--- NOTE | 2022-12-28 14:01 | MHC.CM.PN ---
PT APPEALED HER DC YESTERDAY ALISA HAS DETERMINED DC IS APPROPRIATE CM SPOKE TO PT AND DAUGHTER CAROLYNE TWICE THROUGHOUT THE DAY PT IS ADAMANT SHE WILL DC HOME AND NO STR SHE IS AGREEABLE TO [facility] FOR PT SERVICES SHE HAS A INSURANCE EXAMINING CLERK DAILY DAUGHTER IS AWARE DC WILL BE PRIOR TO 1200 HOURS ON SATURDAY
[2022-12-28 15:29] VITALS: BP 122/58; PULSE 89; RESP 17; TEMP 37.2; O2SAT 97
[2022-12-28] MEDS: 0.9 % Sodium Chloride Flush 3 ML SYRINGE IVFLUSH ×2 (15:58→20:48)
[2022-12-28 20:00] VITALS: BP 117/84; PULSE 81; RESP 18; TEMP 36.7; O2SAT 94
[2022-12-28] MEDS: traZODone HCL 100 MG TABLET 200 MG PO (20:40)
[2022-12-28] MEDS: Mirtazapine 15 MG TABLET PO (20:41)
[2022-12-28] MEDS: Atorvastatin Calcium 20 MG TABLET PO (20:41)
[2022-12-29] VITALS: BP 137/70; PULSE 74; RESP 16; TEMP 37.1; O2SAT 92
[2022-12-29 03:29] VITALS: BP 132/72; PULSE 68; RESP 16; TEMP 36.8; O2SAT 93
[2022-12-29] MEDS: Omeprazole 20 MG CAPSULE.DR PO (05:34)
[2022-12-29 08:00] VITALS: BP 196/89; PULSE 79; RESP 17; TEMP 36.2; O2SAT 98
[2022-12-29] MEDS: amLODIPine Besylate 10 MG TABLET PO (09:13)
[2022-12-29] MEDS: Escitalopram Oxalate 10 MG TABLET PO (09:13)
[2022-12-29] MEDS: Cholecalciferol (Vitamin D3) 25 MCG TABLET 50 MCG PO (09:13)
[2022-12-29] MEDS: Gabapentin 400 MG CAPSULE 800 MG PO (09:14)
[2022-12-29] MEDS: Metoprolol Tartrate 50 MG TABLET PO (09:14)
[2022-12-29] MEDS: Apixaban 5 MG TABLET 10 MG PO (09:14)
[2022-12-29] MEDS: 0.9 % Sodium Chloride Flush 3 ML SYRINGE IVFLUSH (09:21)
[2022-12-29] MEDS: Dicyclomine HCl 10 MG CAPSULE 20 MG PO (09:21)
--- NOTE | 2022-12-29 10:32 | MHC.CM.PN ---
Confirmed w/Pt's daughter that both herself and Liya (Pt's grandaughter are both Pt's prescription clerk lenses). Confirmed that Liya will be at the hospital today by 12:00 to transport Pt home. Confirmed that [facility] has informed CM dept they will be seeing Pt within 48 hrs of D/C. order for home w/services. CM acknowledge.
== END 2022-12-29 11:37 | disposition home health service (06) | DRG 280 ==
LOC: HO.ED 22:28 → HO.EDOVER 12-25 00:49 → HO.IMC 12-25 14:46
PROVIDERS: Physician Assistant; Admitting Provider Student in an Organized Health Care Education/Training Program; Emergency Provider Student in an Organized Health Care Education/Training Program; PCP Physician Assistant; Visit Provider Family Medicine
DX: I82.402 Acute embolism and thrombosis of unspecified deep veins of left lower extremity (principal); I26.99 Other pulmonary embolism without acute cor pulmonale; I21.A1 Myocardial infarction type 2; I10 Essential (primary) hypertension; J45.909 Unspecified asthma, uncomplicated; K21.9 Gastro-esophageal reflux disease without esophagitis; C50.912 Malignant neoplasm of unspecified site of left female breast; C50.911 Malignant neoplasm of unspecified site of right female breast; F39 Unspecified mood [affective] disorder; G62.9 Polyneuropathy, unspecified; F03.90 Unspecified dementia, unspecified severity, without behavioral disturbance, psychotic disturbance, mood disturbance, and anxiety; R73.03 Prediabetes; Z90.13 Acquired absence of bilateral breasts and nipples; Z98.1 Arthrodesis status; Z79.810 Long term (current) use of selective estrogen receptor modulators (SERMs); Z79.899 Other long term (current) drug therapy
CPT/HCPCS: 36415; 71045; 71275; 80048; 80053; 82803; 83880; 84484; 85025; 85027; 85610; 85730; 93005; 93306; 97116; 97162; 99285; J1643; J2270; Q9967

== ENCOUNTER → 2022-12-24 14:00 | Outpatient (BNV) | payer OTHER, SELFPAY | PROVIDERS: Admitting Provider Student in an Organized Health Care Education/Training Program; Emergency Provider Student in an Organized Health Care Education/Training Program; PCP Physician Assistant; Visit Provider Internal Medicine | DX: R94.31 Abnormal electrocardiogram [ECG] [EKG] (principal) | CPT/HCPCS: 93010 ==

== ENCOUNTER → 2022-12-25 00:37 | Outpatient (BNV) | payer OTHER, SELFPAY | PROVIDERS: Admitting Provider Student in an Organized Health Care Education/Training Program; Emergency Provider Student in an Organized Health Care Education/Training Program; PCP Physician Assistant; Visit Provider Internal Medicine Medical Oncology | DX: I82.402 Acute embolism and thrombosis of unspecified deep veins of left lower extremity (principal); I26.99 Other pulmonary embolism without acute cor pulmonale; Z85.3 Personal history of malignant neoplasm of breast | CPT/HCPCS: 99222 ==

== ENCOUNTER → 2022-12-25 00:37 | Outpatient (BNV) | payer OTHER, SELFPAY | PROVIDERS: Admitting Provider Student in an Organized Health Care Education/Training Program; Emergency Provider Student in an Organized Health Care Education/Training Program; PCP Physician Assistant; Visit Provider Student in an Organized Health Care Education/Training Program | DX: I26.99 Other pulmonary embolism without acute cor pulmonale (principal); I82.409 Acute embolism and thrombosis of unspecified deep veins of unspecified lower extremity | CPT/HCPCS: 99222; 99232; 99239; 99499; G0180 ==

== ENCOUNTER → 2022-12-25 00:37 | Outpatient (BNV) | payer OTHER, SELFPAY | PROVIDERS: Admitting Provider Student in an Organized Health Care Education/Training Program; Emergency Provider Student in an Organized Health Care Education/Training Program; PCP Physician Assistant; Visit Provider Internal Medicine | DX: I21.4 Non-ST elevation (NSTEMI) myocardial infarction (principal); I82.409 Acute embolism and thrombosis of unspecified deep veins of unspecified lower extremity; I26.99 Other pulmonary embolism without acute cor pulmonale | CPT/HCPCS: 93306; 99223; 99232 ==

== ENCOUNTER → 2022-12-25 00:37 | Outpatient (BNV) | payer OTHER, SELFPAY | PROVIDERS: Admitting Provider Student in an Organized Health Care Education/Training Program; Emergency Provider Student in an Organized Health Care Education/Training Program; PCP Physician Assistant; Visit Provider Surgery Vascular Surgery | DX: I82.402 Acute embolism and thrombosis of unspecified deep veins of left lower extremity (principal); I26.99 Other pulmonary embolism without acute cor pulmonale; Z85.3 Personal history of malignant neoplasm of breast | CPT/HCPCS: 99222 ==

== ENCOUNTER 2023-01-16 13:30 | Outpatient (AMB) | payer OTHER, SELFPAY ==
--- NOTE | 2023-01-16 13:32 | MHC.PC.OV ---
Vital Signs 01/16/23 13:33 Height 4 ft 8 in Weight 86.183 kg BMI 42.6 BP 134/68 Blood Pressure Location Lt radial Position Sitting Pulse 79 Pulse Source Pulse Oximeter Pulse Oximetry (%) 97 Oxygen Delivery Method Room Air Intake Visit Reasons: [facility] [place]-heart attack,sob,blood clots L leg Allergies No Known Allergies [No Known Allergies*] Allergy (Verified 01/16/23 13:33) Tobacco use date assessed: 10/17/22 Fall risk assessment: No Falls in past year Last assessed Fall Risk: 01/16/23 Dental Screening Dental Screen Date: 01/16/23 Did you have a dental visit in the last 12 months?: No Did you have a dental problem in the last 6 months where you did not have access to dental care?: No Was dental information given to patient?: No HPI HPI Comments History of Present Illness Details 72-year-old female with history of breast cancer s/p bilateral mastectomy previous on tamoxifen among others presents to the office today with her granddaughter, Sharla, for post hospital discharge follow-up. The patient presented to the ED on 12/25 found to have extensive occlusive DVT in the left lower extremity from the calf to the groin resulting in left lower extremity swelling and pain ongoing for several days. She had also had complaints of dyspnea worse with exertion and pleuritic chest discomfort. CTA of the chest ordered showing bilateral PE. She was started on IV heparin drip and vascular surgery was consulted who did not recommend endovascular intervention given her history. There is no hypoxia and she remained hemodynamically stable. Hematology was consulted and she was transitioned from IV heparin to oral apixaban and tamoxifen was discontinued due to its thrombophilic side effects. Troponins were elevated likely secondary to demand ischemia from PE rather than type 1 MA. Cardiology was consulted and echo showed normal LV systolic function with EF of 58% and possibility of apical inferior hypokinesis ES though this could have been artifactual as well as mild pulmonary hypertension and mildly decreased RV systolic function without any RV strain or septal bowing. Outpatient Cardiology follow-up recommended with possible repeat echo and/or stress testing. She was evaluated by PT recommending she be discharged home with [facility] for home PT and follow up with her public service officer/oncologist, Dr. Jaramillo who was notified of the hospital course and agreed with the plan. Family did appeal the discharge as they had concerns about her going home but the peel was denied and she was discharged home with [facility] surgery assist on 12/29. She then presented to [facility] ED several days ago due to concerns with ongoing pain and swelling in the left lower extremity as well as paresthesias. She continues experiencing some shortness of breath and pleuritic chest pain but these have not worsened. She did have repeat venous duplex of the left lower extremity performed which again showed extensive occlusive DVT from the caps the groin that has not improved or worsened since her admission. She denies any lightheadedness, syncope, or chest pressure. 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 malignant neoplasm of right breast Seroma Traumatic complete tear of right rotator cuff Surgical History History of bilateral mastectomy (02/19/22) History of colonoscopy History of esophagogastroduodenoscopy (EGD) History of lumbar fusion History of lumpectomy of both breasts History of surgery Hx of appendectomy Hx of blepharoplasty Hx of cholecystectomy S/P bilateral mastectomy S/P [id number] (total abdominal hysterectomy and bilateral salpingo-oophorectomy) Family History Father Heart problem Mother Heart disease Hypertension Colon cancer Epilepsy Maternal Grandmother Esophageal cancer Daughter Breast cancer Brother Lung cancer Sister Breast cancer Sister Breast cancer, Onset Age: 60 Sister COVID Daughter Acute kidney failure Social History Household Members: None Housing: Apartment Are you a primary career services coordinator to a significant other at home: No Do you presently have visiting nurse or other home services: Yes (daughter ORNAMENTER HAND) Alcohol intake: never Patient Tobacco Use Status: Never used Tobacco e-Cigarette/Vaping Use: Never Used Second Hand Smoke Exposure: No Advance Directives Date on File: 09/26/21 service: No Current occupational status: disabled 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) Hearing needs: No Vision needs: Yes Female Reproductive History Menstrual Age of Menarche: 9 Questionnaire PHQ-9 Over the last 2 weeks, how often have you been bothered by any of the following problems? 1. Little interest or pleasure in doing things: nearly every day 2. Feeling down, depressed, or hopeless: nearly every day 3. Trouble falling or staying asleep, or sleeping too much: nearly every day 4. Feeling tired or having little energy: nearly every day 5. Poor appetite or overeating: nearly every day 6. Feeling bad about yourself - or that you are a failure or have let yourself or your family down: nearly every day 7. Trouble concentrating on things, such as reading the newspaper or watching television: nearly every day 8. Moving or speaking so slowly that other people could have noticed. Or the opposite - being so fidgety or restless that you have been moving around a lot more than usual: nearly every day 9. Thoughts that you would be better off or of hurting yourself in some way: not at all Total score: 24 Depression Screening Interpretation: Positive 12990 - PHQ-9 Billing: Yes Source: Developed by Drs. Chinedu Romero, Rosemarie Ballard, Mina Lanier and colleagues, with an educational luis fernando from [employer]. Thrive Questionnaire Date Thrive assessed: 12/25/22 AUDIT C Alcohol Use Questionnaire (AUDIT-C) 1. How often do you have a drink containing alcohol?: Never 3. How often do you have six or more drinks on one occasion?: Never Total Score: 0 OLAYINKA-7 AMB Questionnaire OLAYINKA-7 Date OLAYINKA - 7 assessed: 10/17/22 Source: Developed by Drs. Chinedu Romero, Mina Burgess and colleagues, with an educational luis fernando from [employer]. Review of Systems Const All systems reviewed & are unremarkable except as noted in HPI and below Physical exam (Primary Care) Vital Signs: Last Vital Signs Pulse 79 01/16/23 13:33 BP 134/68 01/16/23 13:33 Pulse Ox 97 01/16/23 13:33 Oxygen Delivery Method Room Air 01/16/23 13:33 BMI result Body Mass Index 42.6 Tobacco/Smoking Status: Tobacco use Status Tobacco use date assessed 10/17/22 01/16/23 13:41 Patient Tobacco Use Status Never used Tobacco 01/16/23 13:41 e-Cigarette/Vaping Use Never Used 01/16/23 13:41 PHQ-9: PHQ-9 Score PHQ-9: Total score 24 01/16/23 14:00 Depression Screening Interpretation: Positive Thrive Assessment: Date of Thrive Assessment Date Thrive assessed 12/25/22 01/16/23 13:41 Const Other: Constitutional - Awake and Alert, No apparent distress Eyes - PERRLA, EOMI Cardiovascular - S1S2, RRR, No edema Respiratory - Normal lung expansion, Normal respiratory effort, No respiratory distress, CTA bilaterally Extremities - LLE swelling, wamrth, and ttp Musculoskeletal - Normal inspection, normal ROM Skin - Warm/Dry Neurological - Alert & oriented x3 Psychological - Appropriate affect Results AMB Hemoglobin A1c AMB Hemoglobin A1c 6.7 % Last Edit by Rivka Huffman CMA on 01/16/23 13:49 Results Reviewed Results Reviewed: Laboratory Last Values Hgb A1c (Clinic) 6.7 % (4.0-6.0) H 01/16/23 13:49 H and P, discharge summary, CBC, BMP, venous duplex, CTA chest, venous duplex from [facility], echocardiogram Assessment and Plan Assessment & Plan (1) Elevated troponin: Code(s): R77.8 - Other specified abnormalities of plasma proteins Plan: likely secondary to demand due to pulmonary embolism. No acute ischemic changes noted on EKG in the ED. She has follow-up early next month with Cardiology is encouraged to follow up as scheduled for repeat echocardiogram versus stress testing given possible apical inferior hypokinesis noted on inpatient echocardiogram though this was noted to possibly be artifactual. There is no evidence of right heart strain or septal bowing. (2) DVT (deep venous thrombosis): Code(s): I82.409 - Acute embolism and thrombosis of unspecified deep veins of unspecified lower extremity Plan: Extensive occlusive DVT of the left lower extremity. Not a candidate for endovascular intervention per vascular surgery. There has been limited improvement in symptoms and repeat venous duplex at [facility] did not notice any improvement in extent or occlusions of the DVT. Reached out to Dr. Jaramillo in Hematology/Oncology with whom the patient follows regarding possibly changing the patient to subcutaneous therapeutic Lovenox in place of Eliquis given her cancer history and recent tamoxifen use who is in agreement. Eliquis is discontinued and her granddaughter will administer 120 mg Lovenox daily per Hematology. Advised to follow up soon with Dr. Jaramillo. (3) Pulmonary emboli: Code(s): I26.99 - Other pulmonary embolism without acute cor pulmonale Plan: No hypoxia throughout admission and remained hemodynamically stable. There is no evidence of right heart strain or septal bowing at echocardiogram. Change in anticoagulation as above. Plan Follow-up with PCP in 1-2 months. Orders: Orders AMB Hemoglobin A1c 01/16/23 Z13.9 - Encounter for screening, unspecified Medications: New enoxaparin (Lovenox) 120 mg (0.8 mL) subcut DAILY 8 mL 0RF Refilled amlodipine 10 mg PO DAILY 90 days 90 tabs 1RF I10 - Essential (primary) hypertension atorvastatin 20 mg PO BEDTIME 90 tabs 1RF Discontinued apixaban (Eliquis) Discontinued Reason: Doctor's Order 2 tabs (10 mg) twice daily for 7 days, then 1 tab (5 mg) twice daily 74 tabs 0RF amitriptyline 20 - 30 mg (2 - 3 x 10 mg) PO BEDTIME 30 days 90 tabs 3RF M51.16 - Intervertebral disc disorders with radiculopathy, lumbar region albuterol sulfate 90 mcg/actuation 1 puff PO QID 8.5 ea 6RF J45.30 - Mild persistent asthma, uncomplicated oxycodone Cancer related pain- 10 mg PO Q8H 28 days 84 tabs 0RF pain D05.00 - Lobular carcinoma in situ of unspecified breast, 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 Jaramillo, document
[2023-01-16 13:33] VITALS: BP 134/68; PULSE 79; O2SAT 97; BMI 42.6
== END 2023-01-16 14:05 | disposition home or self-care (01) ==
PROVIDERS: PCP Physician Assistant; Visit Provider Physician Assistant
DX: E11.65 Type 2 diabetes mellitus with hyperglycemia (principal); I82.409 Acute embolism and thrombosis of unspecified deep veins of unspecified lower extremity; I26.99 Other pulmonary embolism without acute cor pulmonale; R77.8 Other specified abnormalities of plasma proteins
CPT/HCPCS: 83036; 99215

== ENCOUNTER 2023-01-31 15:21 | Outpatient (AMB) | payer OTHER, SELFPAY ==
[2023-01-31 15:24] VITALS: BP 132/70; PULSE 90; BMI 43.1
--- NOTE | 2023-01-31 15:24 | MHC.OFFVIS ---
Intake Vital Signs 01/31/23 15:24 Height 4 ft 8 in Weight 192 lb 3.889 oz BMI 43.1 BP 132/70 Blood Pressure Location Rt radial Position Sitting Pulse 90 Pulse Source Pulse Oximeter Intake Visit Reasons: C FUP PER HS Intake Note: [facility] fup per HS Nursing Home Physician Required: No Accompanied by: Daughter Allergies No Known Allergies [No Known Allergies*] Allergy (Verified 01/31/23 15:34) Medication List - Last Reconciled 01/31/23 by MATILDE Kim acetaminophen 325 mg PO Q6H PRN 30 days albuterol sulfate 90 mcg/actuation 1 puff PO QID PRN albuterol sulfate 2.5 mg (3 mL) inhalation Q6H PRN amitriptyline 20 mg PO BEDTIME PRN amlodipine 10 mg PO DAILY 90 days apixaban (Eliquis) 5 mg PO BID atorvastatin 20 mg PO BEDTIME blood sugar diagnostic (FreeStyle Lite Strips) As directed blood-glucose meter (FreeStyle Lite Meter kit) As directed cholecalciferol (vitamin D3) (Vitamin D3) 50 mcg PO DAILY citalopram 1 tab PO DAILY cyclobenzaprine 10 mg (2 x 5 mg) PO TID PRN diaper,brief,adult,disposable (Briefs, Adult-Extra Large) As directed dicyclomine 20 mg (2 x 10 mg) PO QID 30 days gabapentin 800 mg PO TID 90 days incontinence pad, liner, disp As directed lancets (FreeStyle Lancets) As directed memantine 28 mg PO DAILY 30 days metoprolol tartrate 50 mg PO BID mirtazapine (Remeron) 15 mg PO BEDTIME 30 days miscellaneous medical supply (Blood Pressure Cuff) As directed miscellaneous medical supply 1 ea miscellaneous DAILY 90 days miscellaneous medical supply 1 ea miscellaneous DAILY 30 days omeprazole 20 mg PO DAILY 90 days oxycodone 10 mg PO Q8H 28 days trazodone 200 mg (2 x 100 mg) PO BEDTIME 90 days HPI [facility] [place] FUP PER HS HPI Details Beatriz is a 72-year-old female with past medical history of hypertension, diabetes, morbid obesity who was recently admitted to [facility] [place] [facility] with shortness of breath and leg edema and found to have left leg DVT and bilateral pulmonary embolism, she ruled in for secondary NSTEMI and was managed medically. Echocardiogram did not show RV strain. Today she presents for post hospital follow-up stating that she continues to feel some shortness of breath. She is short of breath with ADLs and walking. No PND, orthopnea. She does have bilateral lower leg edema which she feels has been unchanged recently. No chest discomfort at rest or with activity. No palpitations, dizziness, presyncope, syncope, falls. Taking all meds as directed. Has been on Eliquis for anticoagulation and no bleeding issues reported. Daughter is present and assisting with [employer] translation at their request. 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 Depression Arthritis IBS (irritable bowel syndrome) GERD (gastroesophageal reflux disease) Recurrent malignant neoplasm of 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, managed as type 2 HTN (hypertension) Traumatic complete tear of right rotator cuff Surgical History S/P bilateral mastectomy History of bilateral mastectomy (02/19/22) Hx of cholecystectomy Hx of appendectomy Hx of blepharoplasty History of esophagogastroduodenoscopy (EGD) History of lumpectomy of both breasts History of surgery History of colonoscopy S/P ANDRÉS-BSO (total abdominal hysterectomy and bilateral salpingo-oophorectomy) History of lumbar fusion Family History Father Heart problem Mother Heart disease Hypertension Colon cancer Epilepsy Maternal Grandmother Esophageal cancer Daughter Breast cancer Brother Lung cancer Sister Breast cancer Sister Breast cancer, Onset Age: 60 Sister COVID Daughter Acute kidney failure Social History Household Members: None Housing: Apartment Are you a primary manager critical care unit to a significant other at home: No Do you presently have visiting nurse or other home services: Yes (daughter ACQUISITION LEAD) Alcohol intake: never Patient Tobacco Use Status: Never used Tobacco e-Cigarette/Vaping Use: Never Used Second Hand Smoke Exposure: No Advance Directives Date on File: 09/26/21 service: No Current occupational status: disabled 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) Hearing needs: No Vision needs: Yes Female Reproductive History Menstrual Age of Menarche: 9 Review of Systems Const All systems reviewed & are unremarkable except as noted in HPI and below ENT Denies dizziness Card Denies chest pain, Denies chest pain at rest, Denies chest pain with activity, Denies rapid heart rate, Reports pedal edema, Denies edema, Reports leg edema, Denies lightheadedness, Denies palpitations, Denies dyspnea, Reports dyspnea on exertion and Denies orthopnea Resp Denies cough, Denies dyspnea and Reports dyspnea on exertion GI Denies hematochezia and Denies change in stool character Musc Denies abnormal gait, Denies limited range of motion, Denies muscle cramps, Denies muscle weakness, Denies numbness, Denies radiating pain into limb, Denies stiffness and Denies tingling Neuro Denies abnormal gait, Denies dizziness, Denies numbness and Denies tingling Endo Denies palpitations Physical Exam Vital Signs: Last Vital Signs Pulse 90 01/31/23 15:24 BP 132/70 01/31/23 15:24 BMI result Body Mass Index 43.1 Const General: cooperative, comfortable and no acute distress Orientation/consciousness: patient oriented x3 Neck Neck: Yes normal visual inspection and Yes no JVD Resp Effort & Inspection: normal respiratory effort Auscultation: clear to auscultation bilaterally, no crackles, no rales, no rhonchi and no wheezes Cardio Jugular venous distension: no JVD Rate: regular rate Rhythm: regular rhythm Heart sounds: S1 normal heart sound present, S2 normal heart sound present, no murmurs and no rubs Neuro General: patient oriented x3 Extrem Other: Bilateral leg swelling to the mid calf, left greater than right Psych Appearance: grossly normal Mental Status: mental status grossly normal Speech and movement: Normal speech and movement present Assessment & Plan Assessment & Plan (1) Pulmonary emboli: Code(s): I26.99 - Other pulmonary embolism without acute cor pulmonale Qualifiers: Pulmonary embolism type: multiple subsegmental (without acute cor pulmonale) Qualified Code(s): I26.94 - Multiple subsegmental pulmonary emboli without acute cor pulmonale Plan: New finding of pulmonary embolism on CTA done November 2022. She also had lower extremity duplex showing extensive DVT on the left lower extremity. She was started on anticoagulation and discharged with Lovenox which was then changed to Eliquis 5 mg b.i.d. she has not had any bleeding issues. An echocardiogram that was done while inpatient showed normal EF, can not exclude apical inferior hypokinesis, RV normal size, mild decrease in the RV systolic function. Today she reports ongoing feeling of shortness of breath with activity. She does have bilateral lower leg edema which they tell me has been persistent since her hospital discharge, left greater than right. She denies calf tenderness at present. Eliquis for this problem will be managed by her PCP. (2) DVT (deep venous thrombosis): Code(s): I82.409 - Acute embolism and thrombosis of unspecified deep veins of unspecified lower extremity Qualifiers: Affected thrombotic vein of extremity: unspecified vein of extremity Chronicity: acute DVT location: lower extremity Laterality: left Qualified Code(s): I82.402 - Acute embolism and thrombosis of unspecified deep veins of left lower extremity Plan: As above (3) NSTEMI (non-ST elevation myocardial infarction): Code(s): I21.4 - Non-ST elevation (NSTEMI) myocardial infarction Plan: Troponin elevated during recent hospital admission for pulmonary embolism/DVT. Troponin as high as 859. No EKG changes of ischemia. No reports of chest discomfort. Echo did show normal EF can not exclude apical inferior hypokinesis, possible technical finding. She was felt to have secondary NSTEMI related to pulmonary embolism. At this time she still has no reports of chest discomfort. She continues to have some shortness of breath. No known history of CAD. Cardiac risk factors of hypertension, diabetes, morbid obesity. Hold off on ischemic evaluation at this time. Plan to re-evaluate next visit. Continue atorvastatin and metoprolol. She is not on aspirin as she is on Eliquis. (4) Elevated troponin: Code(s): R77.8 - Other specified abnormalities of plasma proteins Plan: During hospital limit (5) Edema: Code(s): R60.9 - Edema, unspecified Qualifiers: Edema type: localized Qualified Code(s): R60.0 - Localized edema Plan: Bilateral lower leg and foot edema. Left greater than right. Recent finding of extensive DVT on the left. Now on anticoagulation. She is also on amlodipine 10 mg daily which can contribute to the bilateral edema. At present she does not appear to have congestive heart failure however her obesity can make this assessment more challenging. Will reduce her amlodipine down to 5 mg daily. Will give her Lasix 20 mg tablets which she can use as needed for leg edema. Cardiology office visit in 3-4 weeks Medications: New furosemide (Lasix) Take 1 tablet daily as needed for lower leg swelling 20 mg PO DAILY PRN 30 tabs 0RF edema amlodipine 5 mg PO DAILY 90 tabs 1RF Discontinued amlodipine Discontinued Reason: Doctor's Order 10 mg PO DAILY 90 days 90 tabs 1RF I10 - Essential (primary) hypertension Coding Level of Care Code Est Pt Level 4 (59127) Diagnoses Multiple subsegmental pulmonary emboli without acute cor pulmonale I26.94 Pulmonary embolism type: multiple subsegmental (without acute cor pulmonale) Acute deep vein thrombosis (DVT) of left lower extremity, unspecified vein I82.402 Affected thrombotic vein of extremity: unspecified vein of extremity Chronicity: acute DVT location: lower extremity Laterality: left NSTEMI (non-ST elevation myocardial infarction) I21.4 Elevated troponin R77.8 Localized edema R60.0 Edema type: localized Time Spent (min) 28 Comment chart review, document interview assess
== END 2023-01-31 16:06 | disposition home or self-care (01) ==
PROVIDERS: PCP Physician Assistant; Referring Provider Physician Assistant; Visit Provider Nurse Practitioner Family
DX: I26.94 Multiple subsegmental thrombotic pulmonary emboli without acute cor pulmonale (principal); I82.402 Acute embolism and thrombosis of unspecified deep veins of left lower extremity; I21.4 Non-ST elevation (NSTEMI) myocardial infarction; R77.8 Other specified abnormalities of plasma proteins; R60.0 Localized edema
CPT/HCPCS: 99214

== ENCOUNTER → 2023-01-31 15:21 | Outpatient (BNVA) | payer OTHER, SELFPAY | PROVIDERS: PCP Physician Assistant; Referring Provider Physician Assistant; Visit Provider Nurse Practitioner Family | DX: R60.0 Localized edema (principal); I10 Essential (primary) hypertension; I21.4 Non-ST elevation (NSTEMI) myocardial infarction; I26.99 Other pulmonary embolism without acute cor pulmonale; I82.402 Acute embolism and thrombosis of unspecified deep veins of left lower extremity; R77.8 Other specified abnormalities of plasma proteins; Z79.01 Long term (current) use of anticoagulants | CPT/HCPCS: 99212 ==

== ENCOUNTER 2023-02-12 10:04 | Outpatient (AMB) | payer OTHER, SELFPAY ==
--- NOTE | 2023-02-12 10:07 | MHC.OFFVIS ---
Intake Vital Signs 02/12/23 10:09 Height 4 ft 8 in Weight 186 lb 6 oz BMI 41.8 BP 130/74 Blood Pressure Location Rt brachial Position Sitting Pulse 69 Pulse Source Pulse Oximeter Pulse Oximetry (%) 97 Oxygen Delivery Method Room Air Intake Visit Reasons: 4M follow up dementia-Confirmed Intake Note: Patient presents for 4 month follow up dementia.Patient states I'm here for follow up she referred her to a neuropsychiatrist and nothing has been done I've called here many times and still haven't gotten any answers. Allergies No Known Allergies [No Known Allergies*] Allergy (Verified 02/12/23 10:13) Medication List - Last Reconciled 02/12/23 by RINKU Velasquez acetaminophen 325 mg PO Q6H PRN 30 days albuterol sulfate 90 mcg/actuation 1 puff PO QID PRN albuterol sulfate 2.5 mg (3 mL) inhalation Q6H PRN amitriptyline 20 mg PO BEDTIME PRN amlodipine 5 mg PO DAILY apixaban (Eliquis) 5 mg PO BID atorvastatin 20 mg PO BEDTIME blood sugar diagnostic (FreeStyle Lite Strips) As directed blood-glucose meter (FreeStyle Lite Meter kit) As directed cholecalciferol (vitamin D3) (Vitamin D3) 50 mcg PO DAILY citalopram 1 tab PO DAILY cyclobenzaprine 10 mg (2 x 5 mg) PO TID PRN diaper,brief,adult,disposable (Briefs, Adult-Extra Large) As directed dicyclomine 20 mg (2 x 10 mg) PO QID 30 days furosemide (Lasix) 20 mg PO DAILY PRN gabapentin 800 mg PO TID 90 days incontinence pad, liner, disp As directed lancets (FreeStyle Lancets) As directed memantine 28 mg PO DAILY 30 days metoprolol tartrate 50 mg PO BID mirtazapine (Remeron) 15 mg PO BEDTIME 30 days miscellaneous medical supply (Blood Pressure Cuff) As directed miscellaneous medical supply 1 ea miscellaneous DAILY 90 days miscellaneous medical supply 1 ea miscellaneous DAILY 30 days omeprazole 20 mg PO DAILY 90 days oxycodone 10 mg PO Q8H 28 days trazodone 200 mg (2 x 100 mg) PO BEDTIME 90 days HPI HPI Comments History of Present Illness Details 72-yr-old female presents for f/u visit, accompanied by her granddtr. Pt endorses the following interval medical history changes: On 12/24/22, pt had [facility] admission for SOB, pleuritic type chest discomfort, and LLE discomfort/warth. Work-up was most remarkable for LLE DVT through the LLE venous system, emmanuel PE, elevated troponins/NSTEMI thought to be d/t PE.. Cardiology consult was obtained- pt was cleared to strat anticoagulation tx. Vascular recommended against surgical intervention. Discharged on Eliquis, Tamoxifen held d/t VTE, continued on home statin, and HTN regimen. Pt states sometimes she may wake up talking, crying, but denies hitting, kicking, or other parasomnias. However, about a month ago, pt woke up in the middle of the night, maybe to use the bathroom but went out her backdoor instead. She only realized she was outside once the door closed and she was standing outside in the grass. She was able to knock on her neighbor's door who called her granddtr. Pt denies any interval hallucinations. She has a life alert necklace but childress snot like to wear it. She does not yet have an appt for the [facility] neuro-psych eval- granddtr states she has called mx times to [facility] w/ no response. She tried APAP, but after 15 minutes states she did could not breathe and took it off- she has not been willing to try it again., however she is open to having an in-lab PAP titration study and pulmonary consult. Sleep study showed mild YAMILA- AHI 6.4/hr and O2 louis 71% 12/06/22: MR/MR head/brain wo/w con IMPRESSION: 1. No acute intracranial abnormalities. No abnormal intracranial enhancement. 2. Moderate underlying microangiopathy and generalized cerebral volume loss. Chronic lacunar infarcts of the cerebellum. 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 Depression Arthritis IBS (irritable bowel syndrome) GERD (gastroesophageal reflux disease) Recurrent malignant neoplasm of 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, managed as type 2 HTN (hypertension) Traumatic complete tear of right rotator cuff Surgical History S/P bilateral mastectomy History of bilateral mastectomy (02/19/22) Hx of cholecystectomy Hx of appendectomy Hx of blepharoplasty History of esophagogastroduodenoscopy (EGD) History of lumpectomy of both breasts History of surgery History of colonoscopy S/P ANDRÉS-BSO (total abdominal hysterectomy and bilateral salpingo-oophorectomy) History of lumbar fusion Family History Father Heart problem Mother Heart disease Hypertension Colon cancer Epilepsy Maternal Grandmother Esophageal cancer Daughter Breast cancer Brother Lung cancer Sister Breast cancer Sister Breast cancer, Onset Age: 60 Sister COVID Daughter Acute kidney failure Social History Household Members: None Housing: Apartment Are you a primary care technician to a significant other at home: No Do you presently have visiting nurse or other home services: Yes (daughter A/C TECHNICIAN) Alcohol intake: never Patient Tobacco Use Status: Never used Tobacco e-Cigarette/Vaping Use: Never Used Second Hand Smoke Exposure: No Advance Directives Date on File: 09/26/21 service: No Current occupational status: disabled 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) Hearing needs: No Vision needs: Yes Female Reproductive History Menstrual Age of Menarche: 9 Review of Systems Const All systems reviewed & are unremarkable except as noted in HPI and below Physical Exam Vital Signs: Last Vital Signs Pulse 69 02/12/23 10:09 BP 130/74 02/12/23 10:09 Pulse Ox 97 02/12/23 10:09 Oxygen Delivery Method Room Air 02/12/23 10:09 BMI result Body Mass Index 41.8 Const General: cooperative and no acute distress HEENT Head: Yes normocephalic Resp Effort & Inspection: normal respiratory effort and able to speak in complete sentences Neuro Other: A&O Responding appropriately w/ some STM lapses. Steady gait w/ cane General: CN's II-XI intact bilaterally Psych Appearance: grossly normal Speech and movement: Normal speech and movement present Affect: normal affect Attitude: cooperative Assessment & Plan Assessment & Plan (1) Mild obstructive sleep apnea: Code(s): G47.33 - Obstructive sleep apnea (adult) (pediatric) (2) Nocturnal hypoxemia: Code(s): G47.34 - Idiopathic sleep related nonobstructive alveolar hypoventilation (3) Cognitive disorder: Code(s): F09 - Unspecified mental disorder due to known physiological condition Plan Reviewed brain MRI: No acute findings. Moderate underlying microangiopathy and generalized cerebral volume loss. Chronic lacunar infarcts of the cerebellum. Continue strategies to minimize CV risk factors- continue statin, amlodipine, metoprolol, Eliquis- pt is followed closely by cardiology. Pt advised to undergo in-lab PAP titration study in hopes we can identy an optimal PAP tx setting as although pt has mild YAMILA w/ AHI 6/hr, her O2 louis on HST was 71%. Will also take the liberty of requesting pulmonary's opinion- pt and granddtr request Dr Ruiz Thomson. We will f/u w/ [facility] for neuropsych eval appt. Continue meantine Er 28ng qd. Discussed that I am still concerned regarding pt's polypharmacy, especially in light of pt now taking Eliquis and this recent episode of pt unknowingly leaving her apartment in the middle of the night. Advised pt to wear her life alert at all times, add door alarms to both front and back doors. Decrease Amitriptyline from 20mg qhs to 10mg qhs. f/u in 3 months or sooenr prn. Orders: Orders RT PSG in-lab sleep titration Today G47.33 - Obstructive sleep apnea (adult) (pediatric), G47.34 - Idiopathic sleep related nonobstructive alveolar hypoventilation Referrals Pulmonary Medicine Referral G47.33 - Obstructive sleep apnea (adult) (pediatric), G47.34 - Idiopathic sleep related nonobstructive alveolar hypoventilation, I26.99 - Other pulmonary embolism without acute cor pulmonale, I82.409 - Acute embolism and thrombosis of unspecified deep veins of unspecified lower extremity Coding Level of Care Code Est Pt Level 4 (49553) Diagnoses Mild obstructive sleep apnea G47.33 Nocturnal hypoxemia G47.34 Cognitive disorder F09
[2023-02-12 10:09] VITALS: BP 130/74; PULSE 69; O2SAT 97; BMI 41.8
== END 2023-02-12 11:11 | disposition home or self-care (01) ==
PROVIDERS: Visit Provider Nurse Practitioner Family
DX: G47.33 Obstructive sleep apnea (adult) (pediatric) (principal); G47.34 Idiopathic sleep related nonobstructive alveolar hypoventilation; R41.89 Other symptoms and signs involving cognitive functions and awareness
CPT/HCPCS: 99214

== ENCOUNTER → 2023-02-12 10:04 | Outpatient (BNVA) | payer OTHER, SELFPAY | PROVIDERS: Visit Provider Nurse Practitioner Family | DX: G47.33 Obstructive sleep apnea (adult) (pediatric) (principal); G47.34 Idiopathic sleep related nonobstructive alveolar hypoventilation; F09 Unspecified mental disorder due to known physiological condition | CPT/HCPCS: 99212 ==

== ENCOUNTER 2023-02-14 16:59 | Emergency (ER) | payer OTHER, SELFPAY ==
--- NOTE | ~2023-02-14 | XR_ITS ---
EXAMINATION: XR CHEST CLINICAL INFORMATION: Altered mental status. Fever. Cough. COMPARISON: Chest x-ray December 24, 2022. CT of chest December 24, 2022 TECHNIQUE: 2 views of the chest were obtained. FINDINGS: Asymmetric elevation of the right diaphragm above the left is chronic unchanged since prior studies. No acute abnormality. No pulmonary vascular congestion. Lungs are normally aerated. There is no pleural effusion and no pneumothorax. Unchanged mild prominence of the cardiac silhouette. Cardiac mediastinal contours are normal. Degenerative spondylosis spine. XR/XR chest 2V IMPRESSION: No acute abnormality of chest.
[2023-02-14 17:10] VITALS: BP 122/68; BP 134/68; PULSE 85; PULSE 87; RESP 18; TEMP 38.6; O2SAT 96; O2SAT 98; BMI 32.1
--- NOTE | 2023-02-14 17:11 | ED.GENADULT ---
HPI - General Adult General Chief complaint: Upper Respiratory Symptoms Stated complaint: confusion, warm to touch, productive cough Time Seen by Provider: 02/14/23 17:10 Source: patient and family Mode of arrival: EMS Limitations: language barrier ( Lithuanian-speaking expert medical writer utilized) History of Present Illness HPI narrative: patient is a 72 year old female presents emergency department via EMS with her granddaughter. Patient reports that she has been experiencing tactile fever, body aches, fatigue, Weakness,productive cough for a few days. Denies headache, dizziness, lightheadedness, neck pain, neck stiffness, vision changes, chest pain, difficulty breathing, numbness or tingling of the extremities. Per her granddaughter she has been confused at times; she is awake alert and oriented to person place and time although she seems to have confusion about the events which is not typical for her. She was standing in the kitchen and thought that she was cooking but she was not and then later was asking where the food was that she knee, she also was reporting that a kind woman stopped by with the dog when the were no visitors. This has occurred 1 other time in the past when she was found to have an infection. Related Data Home Medications Medication Instructions Recorded Confirmed citalopram 20 mg tablet 1 tab PO DAILY 05/05/22 02/12/23 albuterol sulfate 90 mcg/actuation 1 puff PO QID PRN Shortness Of 12/24/22 02/12/23 aerosol inhaler Breath amitriptyline 10 mg tablet 20 mg PO BEDTIME PRN Insomnia 12/24/22 02/12/23 apixaban 5 mg tablet (Eliquis) 5 mg PO BID 01/31/23 02/12/23 Previous Rx's Medication Instructions Recorded metoprolol tartrate 50 mg tablet 50 mg PO BID #180 tabs 06/09/22 albuterol sulfate 2.5 mg/3 mL 2.5 mg (3 mL) inhalation Q6H PRN 07/20/22 (0.083 %) solution for nebulization for wheezing #150 mL omeprazole 20 mg capsule,delayed 20 mg PO DAILY 90 days #90 caps 09/26/22 release memantine 28 mg capsule 28 mg PO DAILY 30 days #30 ea 10/11/22 sprinkle,extended release 24hr blood sugar diagnostic (FreeStyle #100 ea 10/17/22 Lite Strips) blood-glucose meter (FreeStyle #1 ea 10/17/22 Lite Meter kit) lancets 28 gauge (FreeStyle #100 ea 10/17/22 Lancets) miscellaneous medical supply #1 ea 10/17/22 (Blood Pressure Cuff) cholecalciferol (vitamin D3) 50 50 mcg PO DAILY #30 tabs 10/22/22 mcg (2,000 unit) tablet (Vitamin D3) mirtazapine 15 mg tablet (Remeron) 15 mg PO BEDTIME 30 days #30 tabs 11/22/22 trazodone 100 mg tablet 200 mg (2 x 100 mg) PO BEDTIME 90 11/27/22 days #180 tabs dicyclomine 10 mg capsule 20 mg (2 x 10 mg) PO QID 30 days 12/09/22 #240 caps cyclobenzaprine 5 mg tablet 10 mg (2 x 5 mg) PO TID PRN for 01/01/23 muscle spasm #180 tabs diaper,brief,adult,disposable #200 ea 01/07/23 (Briefs, Adult-Extra Large) incontinence pad, liner, disp #400 ea 01/07/23 miscellaneous medical supply 1 ea miscellaneous DAILY 30 days 01/07/23 #6 ea miscellaneous medical supply 1 ea miscellaneous DAILY 90 days 01/07/23 #180 ea atorvastatin 20 mg tablet 20 mg PO BEDTIME #90 tabs 01/16/23 acetaminophen 325 mg tablet 325 mg PO Q6H PRN pain 30 days 01/23/23 #120 tabs oxycodone 10 mg tablet 10 mg PO Q8H pain 28 days #84 tabs 01/24/23 gabapentin 800 mg tablet 800 mg PO TID 90 days #270 tabs 01/29/23 amlodipine 5 mg tablet 5 mg PO DAILY #90 tabs 01/31/23 furosemide 20 mg tablet (Lasix) 20 mg PO DAILY PRN edema #30 tabs 01/31/23 cefuroxime axetil 500 mg tablet 500 mg PO BID #12 tabs 02/15/23 Allergies Allergy/AdvReac Type Severity Reaction Status Date / Time No Known Allergies Allergy Verified 02/14/23 17:17 [No Known Allergies*] Review of Systems Review of Systems: Yes all other systems are reviewed and are negative PMFSH Past Medical History Attestation statement: The following information was validated with the patient. 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 Depression Arthritis IBS (irritable bowel syndrome) GERD (gastroesophageal reflux disease) Recurrent malignant neoplasm of 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, managed as type 2 HTN (hypertension) Traumatic complete tear of right rotator cuff Surgical History S/P bilateral mastectomy History of bilateral mastectomy (02/19/22) Hx of cholecystectomy Hx of appendectomy Hx of blepharoplasty History of esophagogastroduodenoscopy (EGD) History of lumpectomy of both breasts History of surgery History of colonoscopy S/P [id number] (total abdominal hysterectomy and bilateral salpingo-oophorectomy) History of lumbar fusion Family History Family History Father Heart problem Mother Heart disease Hypertension Colon cancer Epilepsy Maternal Grandmother Esophageal cancer Daughter Breast cancer Brother Lung cancer Sister Breast cancer Sister Breast cancer, Onset Age: 60 Sister COVID Daughter Acute kidney failure Social History Social History Household Members: None Housing: Apartment Are you a primary healthcare administration intern to a significant other at home: No Do you presently have visiting nurse or other home services: Yes (daughter [employer]) Alcohol intake: never Patient Tobacco Use Status: Never used Tobacco Smoked in Last 30 Days: No e-Cigarette/Vaping Use: Never Used Second Hand Smoke Exposure: No Use of substances other than those prescribed or required for medical reasons: No Advance Directives: Yes Advance Directives on File: Yes Advance Directives Date on File: 09/26/21 service: No Current occupational status: disabled 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) Hearing needs: No Vision needs: Yes Physical Exam ED Vital Signs: Vital Signs - 24 hr 02/14/23 17:10 02/14/23 20:01 02/14/23 20:29 Temperature 101.4 F H 98.4 F Pulse Rate 85 78 77 Respiratory Rate 18 17 Blood Pressure 134/68 129/65 135/76 Pulse Oximetry 98 97 Oxygen Delivery Method Room Air Room Air Room Air Oxygen Flow Rate 95 02/14/23 21:19 Temperature Pulse Rate Respiratory Rate Blood Pressure Pulse Oximetry 97 Oxygen Delivery Method Room Air Oxygen Flow Rate BMI result Body Mass Index 32.1 Appearance: Alert.?Oriented to person, place and time. No acute distress.?Normal affect. Eyes: Pupils equal, round and reactive to light.? ENT: Pharynx normal.?? Neck: Normal inspection.? Neck supple.?? CVS: Heart sounds normal. Normal heart rate and rhythm.? Pulses normal.?? Respiratory: No respiratory distress.? Lung sounds clear On the left, decreased in the right lower lobe? Abdomen: Soft and non-tender. Normoactive bowel sounds. Skin: Skin warm and dry.? Normal skin color.? Extremities: No lower extremity edema. Neuro: Moves all extremities spontaneously. Sensation intact bilaterally. CN II-XII intact. No focal neuro deficits. Ambulates with normal steady gait. Course Reevaluation(s) Reevaluation #1: covid Time: 18:40 Reevaluation #2: ambulated to bathroom, hypoxia. UTI, Paxlovid interaction Time: 21:32 Reevaluation #3: family present, d/c home Time: 22:30 Medications Administered Discontinued Medications Generic Name Dose Route Start Last Admin Trade Name Freq PRN Reason Stop Dose Admin Acetaminophen 975 mg 02/14/23 17:26 02/14/23 18:08 Acetaminophen 325 Mg Tablet PO 02/14/23 17:27 975 mg ONCE ONE Administration Sodium Chloride 1,000 mls @ 999 mls/hr 02/14/23 18:00 02/14/23 19:43 Ns IV 02/14/23 19:00 Infused .Q1H1M MARINA Infusion Ceftriaxone Sodium 1 gm/ 50 mls @ 100 mls/hr 02/14/23 17:50 02/14/23 19:43 Sodium Chloride IV 02/14/23 18:19 Infused ONCE ONE Infusion Medical Decision Making Medical Decision Making MDM Narrative: patient is a 72-year-old female with past medical history of arthritis, asthma, depression, mood disorder, dementia, hypertension, peripheral neuropathy, diabetes, GERD, hypertension, IBS, lobular carcinoma of the breast cancer s/p bilateral mastectomy in January 2022, recent diagnosis in November 2022 for extensive left lower extremity DVT and bilateral PE on Eliquis (tamoxifen was discontinued). she appears fatigued, at rest there is no increased work of breathing, lung sounds are diminished on the right, she is febrile. Will obtain CBC to evaluate for leukocytosis/ anemia, CMP and lipase to evaluate for abnormal electrolytes /abnormal renal function/ abnormal hepatic/biliary function, EKG and troponin to evaluate for ischemia/ACS. Chest x-ray to evaluate for consolidation/ infiltrate/ mass/ pulmonary congestion and Urinalysis. At the time of initial evaluation; 17:25 patient is febrile with suspected respiratory infection, plan to obtain blood cultures, lactic acid, and will treat prophylactically with Rocephin. Differential Diagnosis Differential Diagnoses: The differential diagnosis associated with the presentation includes ( pneumonia, COVID- 19, influenza, rhinovirus, urinary tract infection) Lab Data MDM Lab Attestation statement: I reviewed the patient's lab results. ( see course narrative for further detail) 02/14/23 20:03 02/14/23 18:02 Labs: Lab Results 02/14/23 02/14/23 02/14/23 Range/Units 18:02 18:03 18:17 WBC (4.8-10.8) X10*3/uL RBC (4.20-5.50) X10*6/uL Hgb (12.0-16.0) g/dl Hct (37.0-47.0) % MCV (80.0-98.0) fL MCH (27.0-33.0) pg MCHC (31.0-35.0) g/dl RDW (11.0-16.0) % Plt Count (160-400) X10*3/uL MPV (9.4-12.3) fL Immature Gran % (Auto) (0.0-0.4) % Neut % (Auto) (45-73) % Lymph % (Auto) (20-40) % Sullivan % (Auto) (2-11) % Eos % (Auto) (0-4) % Baso % (Auto) (0-2) % Lymph # (Auto) (1.2-4.9) X10*3/uL Sullivan # (Auto) (0.1-1.2) X10*3/uL Eos # (Auto) (0.0-0.4) X10*3/uL Baso # (Auto) (0.0-0.2) X10*3/uL Abs Immat Gran (auto) (0.00-0.03) X10*3/uL Absolute Neuts (auto) (2.0-8.3) x10*3/uL Absolute Nucleated RBC (0.0-0.012) X10*3/uL Nucleated RBC % (auto) (0.0-0.2) /100WBC PT 13.9 H (11.1-13.3) SEC INR 1.1 (0.9-1.1) Sodium 137 (135-145) mmol/L Potassium 4.0 (3.3-5.1) mmol/L Chloride 104 (96-108) mmol/L Carbon Dioxide 26 (22-29) mmol/L Anion Gap 11 L (12-20) BUN 15 (9-16) mg/dL Creatinine 1.20 (0.5-1.4) mg/dL Estim Creat Clear Calc 38.6 Estimated GFR 44 Random Glucose 121 H (60-115) mg/dL Lactic Acid 1.7 (0.5-2.0) mmol/L Calcium 8.8 (8.4-10.2) mg/dL Magnesium 2.1 (1.6-2.6) mg/dL Total Bilirubin 0.2 (0.0-1.0) mg/dL AST 33 H (5-31) U/L ALT 21 (0-31) U/L Alkaline Phosphatase 60 (39-117) U/L Troponin I High Sens 12.8 D (<3.5-17.0) ng/L B-Natriuretic Peptide 32 (<100) pg/mL Total Protein 7.3 (6.5-8.0) g/dL Albumin 3.7 (3.5-5.0) g/dL Lipase 13 (8-78) U/L Urine Color Urine Appearance Urine pH (5.0-9.0) Ur Specific [place] (1.005-1.025) Urine Protein (Neg-Trace) mg/dL Urine Glucose (UA) (Negative) mg/dL Urine Ketones (Negative) mg/dL Urine Blood (Negative) Urine Nitrite (Negative) Ur Leukocyte Esterase (Negative) Urine RBC (0-2) /HPF Urine WBC (0-5) /HPF Ur Squamous Epith Cells (0-2) /HPF Urine Bacteria (None Seen) Hyaline Casts (0-2) /LPF COVID-19 (KEO) Positive A (Negative) COVID-19 Clin Com See Note Influenza Type A (OBEY) Negative (Negative) Influenza Type B (OBEY) Negative (Negative) Influenza A & B Note See Note 02/14/23 02/14/23 Range/Units 20:03 21:23 WBC 6.9 (4.8-10.8) X10*3/uL RBC 3.87 L (4.20-5.50) X10*6/uL Hgb 11.2 L (12.0-16.0) g/dl Hct 34.0 L (37.0-47.0) % MCV 87.9 (80.0-98.0) fL MCH 28.9 (27.0-33.0) pg MCHC 32.9 (31.0-35.0) g/dl RDW 14.2 (11.0-16.0) % Plt Count 253 (160-400) X10*3/uL MPV 9.8 (9.4-12.3) fL Immature Gran % (Auto) 0.1 (0.0-0.4) % Neut % (Auto) 62.0 (45-73) % Lymph % (Auto) 22.9 (20-40) % Sullivan % (Auto) 14.5 H (2-11) % Eos % (Auto) 0.4 (0-4) % Baso % (Auto) 0.1 (0-2) % Lymph # (Auto) 1.6 (1.2-4.9) X10*3/uL Sullivan # (Auto) 1.0 (0.1-1.2) X10*3/uL Eos # (Auto) 0.0 (0.0-0.4) X10*3/uL Baso # (Auto) 0.0 (0.0-0.2) X10*3/uL Abs Immat Gran (auto) 0.01 (0.00-0.03) X10*3/uL Absolute Neuts (auto) 4.3 (2.0-8.3) x10*3/uL Absolute Nucleated RBC 0.000 (0.0-0.012) X10*3/uL Nucleated RBC % (auto) 0.0 (0.0-0.2) /100WBC PT (11.1-13.3) SEC INR (0.9-1.1) Sodium (135-145) mmol/L Potassium (3.3-5.1) mmol/L Chloride (96-108) mmol/L Carbon Dioxide (22-29) mmol/L Anion Gap (12-20) BUN (9-16) mg/dL Creatinine (0.5-1.4) mg/dL Estim Creat Clear Calc Estimated GFR Random Glucose (60-115) mg/dL Lactic Acid (0.5-2.0) mmol/L Calcium (8.4-10.2) mg/dL Magnesium (1.6-2.6) mg/dL Total Bilirubin (0.0-1.0) mg/dL AST (5-31) U/L ALT (0-31) U/L Alkaline Phosphatase (39-117) U/L Troponin I High Sens (<3.5-17.0) ng/L B-Natriuretic Peptide (<100) pg/mL Total Protein (6.5-8.0) g/dL Albumin (3.5-5.0) g/dL Lipase (8-78) U/L Urine Color Yellow Urine Appearance Clear Urine pH 6.0 (5.0-9.0) Ur Specific [place] 1.010 (1.005-1.025) Urine Protein Trace (Neg-Trace) mg/dL Urine Glucose (UA) Negative (Negative) mg/dL Urine Ketones Negative (Negative) mg/dL Urine Blood Negative (Negative) Urine Nitrite Positive H (Negative) Ur Leukocyte Esterase Moderate (2+) H (Negative) Urine RBC 0-2 (0-2) /HPF Urine WBC 21-50 H (0-5) /HPF Ur Squamous Epith Cells 0-2 (0-2) /HPF Urine Bacteria Trace (None Seen) Hyaline Casts 0-2 (0-2) /LPF COVID-19 (KEO) (Negative) COVID-19 Clin Com Influenza Type A (OBEY) (Negative) Influenza Type B (OBEY) (Negative) Influenza A & B Note Independent Interpretation I performed an independent interpretation of an: EKG and Plain X-Ray (I personally interpreted chest x-ray, no evidence of pneumonia.) Interpretation: Rate: 87 Rhythm:? normal sinus rhythm Normal P waves.? Normal KIM.?? Normal QRS complex.?? ST T wave :?? no ST elevation, no ST depression [id number] prior studies:? November 2022 The study has been interpreted contemporaneously by me. Radiology Impression Discussion of test interpretation with radiology: I have reviewed the radiologist's reading. Radiologist Impression: XR/XR chest 2V IMPRESSION: No acute abnormality of chest. Independent Historian Clinical information obtained from an independent historian. History obtained from or confirmed by: EMS and Other ( granddaughter present at bedside who confirms history as per HPI) External Record Review External record reviewed: Inpatient record ( November 2022; left lower extremity DVT and bilateral pulmonary embolism) and Outpatient record Discharge Plan Discharge Clinical Impression: COVID-19, Urinary tract infection Patient Disposition: Home, Self-Care Instructions: Urinary Tract Infection in Older Adults (ED), COVID-19 (Coronavirus Disease 2019) (ED) Additional Instructions: as discussed, she has tested positive for COVID- 19 today. She should isolate for minimum of 5 days since symptom onset. In continue to isolate if she is symptomatic, or having a fever. Her oxygen today in the emergency department was normal and remained normal wall walking which is very reassuring. If there is concerns about her breathing, increase shortness of breath, chest pain, dizziness, confusion, worsening weakness then she should be re-evaluated. We discussed indications for Paxlovid, medication interactions, at this time this medication was declined. As discussed, she also has urinary tract infection. She received the 1st dose of antibiotic while in the emergency department. I have sent a prescription for cefuroxime to the pharmacy. begin this tomorrow and please complete the entire course. She is unable to take the antibiotic, develops nausea with persistent vomiting, abdominal pain, back pain, inability to urinate, fevers that do not respond to Tylenol then she should be re-evaluated. Prescriptions: New cefuroxime axetil 500 mg tablet 500 mg PO BID Qty: 12 0RF No Action metoprolol tartrate 50 mg tablet 50 mg PO BID Qty: 180 2RF albuterol sulfate 2.5 mg /3 mL (0.083 %) solution for nebulization 2.5 mg inhalation Q6H PRN (Reason: for wheezing) Qty: 150 1RF omeprazole 20 mg capsule,delayed release(DR/EC) 20 mg PO DAILY 90 Days Qty: 90 1RF mirtazapine [Remeron] 15 mg tablet 15 mg PO BEDTIME 30 Days Qty: 30 6RF trazodone 100 mg tablet 200 mg PO BEDTIME 90 Days Qty: 180 1RF dicyclomine 10 mg capsule 20 mg PO QID 30 Days Qty: 240 3RF cyclobenzaprine 5 mg tablet 10 mg PO TID PRN (Reason: for muscle spasm) Qty: 180 3RF (DME) incontinence pad, liner, disp Pad See Rx Instructions .Route Qty: 400 3RF Rx Instructions: As directed (DME) Briefs, Adult-Extra Large Misc See Rx Instructions .Route Qty: 200 3RF Rx Instructions: As directed miscellaneous medical supply Misc 1 ea miscellaneous DAILY 90 Days Qty: 180 3[facility] miscellaneous DAILY 30 Days Qty: 6 3RF acetaminophen 325 mg tablet 325 mg PO Q6H PRN (Reason: pain) 30 Days Qty: 120 3RF oxycodone 10 mg tablet 10 mg PO Q8H 28 Days Qty: 84 0RF Rx Instructions: Cancer related pain- gabapentin 800 mg tablet 800 mg PO TID 90 Days Qty: 270 1RF cholecalciferol (vitamin D3) [Vitamin D3] 50 mcg (2,000 unit) Tablet 50 mcg PO DAILY Qty: 30 4RF citalopram 20 mg tablet 1 tab PO DAILY amitriptyline 10 mg tablet 20 mg PO BEDTIME PRN (Reason: Insomnia) albuterol sulfate 90 mcg/actuation HFA aerosol inhaler 1 puff PO QID PRN (Reason: Shortness Of Breath) (DME) FreeStyle Lite Strips Strip See Rx Instructions .ROUTE .MEDSUPPLY Qty: 100 3RF Rx Instructions: As directed (DME) blood-glucose meter [FreeStyle Lite Meter] Kit See Rx Instructions .ROUTE .MEDSUPPLY Qty: 1 0RF Rx Instructions: As directed (DME) lancets [FreeStyle Lancets] 28 gauge misc See Rx Instructions .ROUTE .MEDSUPPLY Qty: 100 3RF Rx Instructions: As directed (DME) Blood Pressure Cuff Misc See Rx Instructions .ROUTE .MEDSUPPLY Qty: 1 0RF Rx Instructions: As directed atorvastatin 20 mg tablet 20 mg PO BEDTIME Qty: 90 1RF memantine 28 mg capsule,sprinkle,ER 24hr 28 mg PO DAILY 30 Days Qty: 30 6RF Eliquis 5 mg tablet 5 mg PO BID amlodipine 5 mg tablet 5 mg PO DAILY Qty: 90 1RF furosemide [Lasix] 20 mg tablet 20 mg PO DAILY PRN (Reason: edema) Qty: 30 0RF Rx Instructions: Take 1 tablet daily as needed for lower leg swelling Referrals: Milan Mcgraw PA-C [Primary Care Provider] - Print Language: Lithuanian
--- NOTE | 2023-02-14 17:18 | ECG_ITS ---
Test Reason : CHEST PAIN Blood Pressure : / mmHG Vent. Rate : 087 BPM Atrial Rate : 087 BPM P-R Int : 136 ms QRS Dur : 078 ms QT Int : 384 ms P-R-T Axes : 038 -35 -04 degrees QTc Int : 462 ms Normal sinus rhythm Left axis deviation Abnormal ECG When compared with ECG of 24-DEC-2022 14:06, No significant change was found Referred By: Debbie Velazco Electronically Signed By:ALLI MERINO
[2023-02-14] MEDS: Acetaminophen 325 MG TABLET 975 MG PO (18:08)
[2023-02-14] MEDS: 0.9 % Sodium Chloride 1,000 ML 999 ML IV (18:11)
[2023-02-14] MEDS: cefTRIAXone sodium 1 GM in 0.9 % Sodium Chloride 50 ML IV (18:11)
[2023-02-14 18:23] LABS: INTERNATIONAL NORM RATIO 1.1 (0.9-1.1); Prothrombin Time 13.9 SEC (11.1-13.3)
[2023-02-14 18:24] LABS: COVID-19 Test Positive (Negative); IDNOW Serial# 9DB6401D
[2023-02-14 18:39] LABS: Alanine Aminotransferase 21 U/L (0-31); Albumin Level 3.7 g/dL (3.5-5.0); Alkaline Phosphatase 60 U/L (39-117); Anion Gap 11 (12-20); Aspartate Amino Transferase 33 U/L (5-31); B Type Natriuretic Peptide 32 pg/mL (<100); Bilirubin Total 0.2 mg/dL (0.0-1.0); Blood Urea Nitrogen 15 mg/dL (9-16); Calcium 8.8 mg/dL (8.4-10.2); Carbon Dioxide 26 mmol/L (22-29); Chloride 104 mmol/L (96-108); Creatinine Clr Calc Pharmacy 38.6; Estimated Glomerular Filt Rate 44; Glucose Random 121 mg/dL (60-115); Lipase 13 U/L (8-78); Magnesium 2.1 mg/dL (1.6-2.6); Sodium 137 mmol/L (135-145); Total Protein 7.3 g/dL (6.5-8.0); Troponin-I High Sensitivity 12.8 ng/L (<3.5-17.0)
[2023-02-14 18:51] LABS: Lactic Acid 1.7 mmol/L (0.5-2.0)
[2023-02-14 19:11] LABS: IDNOW Serial# 55D5AD1C; Influenza A Negative (Negative); Influenza B2 Negative (Negative)
[2023-02-14 20:01] VITALS: BP 129/65; PULSE 78; RESP 17; TEMP 36.9
[2023-02-14 20:07] LABS: Basophils Percent Auto 0.1 % (0-2); Eosinophils Percent Auto 0.4 % (0-4); Hemoglobin 11.2 g/dl (12.0-16.0); Imm Gran Abs Auto 0.01 X10*3/uL (0.00-0.03); Imm Gran Pct Auto 0.1 % (0.0-0.4); Lymphocytes Absolute Auto 1.6 X10*3/uL (1.2-4.9); Lymphocytes Percent Auto 22.9 % (20-40); Mean Corpuscular HGB Conc 32.9 g/dl (31.0-35.0); Mean Corpuscular Hemoglobin 28.9 pg (27.0-33.0); Mean Corpuscular Volume 87.9 fL (80.0-98.0); Mean Platelet Volume 9.8 fL (9.4-12.3); Monocytes Percent Auto 14.5 % (2-11); Neutrophils Absolute Auto 4.3 x10*3/uL (2.0-8.3); Platelet Count 253 X10*3/uL (160-400); Red Blood Count 3.87 X10*6/uL (4.20-5.50); Red Cell Distribution Width 14.2 % (11.0-16.0); White Blood Count 6.9 X10*3/uL (4.8-10.8)
[2023-02-14 20:13] LABS: MANUAL DIFF FLAG NO
[2023-02-14 20:29] VITALS: BP 135/76; PULSE 77; O2SAT 97
--- NOTE | 2023-02-14 21:18 | PC.NURSE ---
pt ambulated to bathroom. O2 on RA maintained 96-97. Provider aware
[2023-02-14 21:19] VITALS: O2SAT 97
[2023-02-14 21:29] LABS: Appearance Urine Clear; Color Urine Yellow; Glucose Urine UA Negative (Negative); Leukocyte Esterase Urine Moderate (2+) (Negative); Nitrite Urine Positive (Negative); UMIC TRIGGER UACC YES; Urine Blood Negative (Negative); Urine Ketones Negative (Negative); Urine Protein Trace mg/dL (Neg-Trace)
[2023-02-14 21:31] LABS: Bacteria Urine Trace (None Seen); Hyaline Casts Urine 0-2 /LPF (0-2); RBC Urine 0-2 /HPF (0-2); Squamous Epithelial Cell Urine 0-2 /HPF (0-2); UACC Culture Trigger YES; WBC Urine 21-50 /HPF (0-5)
[2023-02-15 00:11] VITALS: BP 135/80; PULSE 82; RESP 16; O2SAT 96
== END 2023-02-15 00:14 | disposition home or self-care (01) ==
PROVIDERS: Nurse Practitioner Family; Emergency Provider Emergency Medicine; PCP Physician Assistant
DX: U07.1 COVID-19 (principal); N39.0 Urinary tract infection, site not specified; R50.9 Fever, unspecified; E13.9 Other specified diabetes mellitus without complications; I10 Essential (primary) hypertension; J45.909 Unspecified asthma, uncomplicated; C50.912 Malignant neoplasm of unspecified site of left female breast; C50.911 Malignant neoplasm of unspecified site of right female breast; F03.90 Unspecified dementia, unspecified severity, without behavioral disturbance, psychotic disturbance, mood disturbance, and anxiety; Z86.718 Personal history of other venous thrombosis and embolism; Z86.711 Personal history of pulmonary embolism; Z79.01 Long term (current) use of anticoagulants; Z79.899 Other long term (current) drug therapy; Z90.13 Acquired absence of bilateral breasts and nipples
CPT/HCPCS: 71046; 80053; 81001; 83605; 83690; 83735; 83880; 84484; 85025; 85610; 87040; 87086; 87205; 87502; 87635; 93005; 96361; 96374; 99284; 99285; J0696

== ENCOUNTER 2023-02-15 08:30 | Inpatient (IN) | payer OTHER, SELFPAY ==
[2023-02-15 08:41] VITALS: BP 108/38; PULSE 69; RESP 16; TEMP 36.5; O2SAT 97; BMI 33.1
--- NOTE | 2023-02-15 09:30 | PC.NURSE ---
pct in room to obtain lab work, family refused stating that she was here yesterday
--- NOTE | 2023-02-15 12:18 | ED.GENADULT ---
HPI - General Adult General Chief complaint: General Medical Stated complaint: uti, ams, [place] citizen speaking only, per ems, Time Seen by Provider: 02/15/23 12:16 Source: patient and family Mode of arrival: ambulatory Limitations: language barrier History of Present Illness HPI narrative: Patient had a syncopal event after being discharged at 3am. Granddaughter she was out for 3 minutes. IN the ED she was diagnosed with COVID, fever and UTI. She refused paxlovid because of DVT currently on elliquis. She was discharged on cefuroxime Onset (ago): minute(s) Related Data Home Medications Medication Instructions Recorded Confirmed citalopram 20 mg tablet 1 tab PO DAILY 05/05/22 02/12/23 albuterol sulfate 90 mcg/actuation 1 puff PO QID PRN Shortness Of 12/24/22 02/12/23 aerosol inhaler Breath amitriptyline 10 mg tablet 20 mg PO BEDTIME PRN Insomnia 12/24/22 02/12/23 apixaban 5 mg tablet (Eliquis) 5 mg PO BID 01/31/23 02/12/23 Previous Rx's Medication Instructions Recorded metoprolol tartrate 50 mg tablet 50 mg PO BID #180 tabs 06/09/22 albuterol sulfate 2.5 mg/3 mL 2.5 mg (3 mL) inhalation Q6H PRN 07/20/22 (0.083 %) solution for nebulization for wheezing #150 mL omeprazole 20 mg capsule,delayed 20 mg PO DAILY 90 days #90 caps 09/26/22 release memantine 28 mg capsule 28 mg PO DAILY 30 days #30 ea 10/11/22 sprinkle,extended release 24hr blood sugar diagnostic (FreeStyle #100 ea 10/17/22 Lite Strips) blood-glucose meter (FreeStyle #1 ea 10/17/22 Lite Meter kit) lancets 28 gauge (FreeStyle #100 ea 10/17/22 Lancets) miscellaneous medical supply #1 ea 10/17/22 (Blood Pressure Cuff) cholecalciferol (vitamin D3) 50 50 mcg PO DAILY #30 tabs 10/22/22 mcg (2,000 unit) tablet (Vitamin D3) mirtazapine 15 mg tablet (Remeron) 15 mg PO BEDTIME 30 days #30 tabs 11/22/22 trazodone 100 mg tablet 200 mg (2 x 100 mg) PO BEDTIME 90 11/27/22 days #180 tabs dicyclomine 10 mg capsule 20 mg (2 x 10 mg) PO QID 30 days 12/09/22 #240 caps cyclobenzaprine 5 mg tablet 10 mg (2 x 5 mg) PO TID PRN for 01/01/23 muscle spasm #180 tabs diaper,brief,adult,disposable #200 ea 01/07/23 (Briefs, Adult-Extra Large) incontinence pad, liner, disp #400 ea 01/07/23 miscellaneous medical supply 1 ea miscellaneous DAILY 30 days 01/07/23 #6 ea miscellaneous medical supply 1 ea miscellaneous DAILY 90 days 01/07/23 #180 ea atorvastatin 20 mg tablet 20 mg PO BEDTIME #90 tabs 01/16/23 acetaminophen 325 mg tablet 325 mg PO Q6H PRN pain 30 days 01/23/23 #120 tabs oxycodone 10 mg tablet 10 mg PO Q8H pain 28 days #84 tabs 01/24/23 gabapentin 800 mg tablet 800 mg PO TID 90 days #270 tabs 01/29/23 amlodipine 5 mg tablet 5 mg PO DAILY #90 tabs 01/31/23 furosemide 20 mg tablet (Lasix) 20 mg PO DAILY PRN edema #30 tabs 01/31/23 cefuroxime axetil 500 mg tablet 500 mg PO BID #12 tabs 02/15/23 Allergies Allergy/AdvReac Type Severity Reaction Status Date / Time No Known Allergies Allergy Verified 02/14/23 17:17 [No Known Allergies*] Review of Systems Review of Systems: Yes all other systems are reviewed and are negative Neurologic: Denies Sensory deficit (Neuro) [facility] Past Medical History Medical History Cellulitis of breast Asthma Lobular carcinoma in situ 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 Depression Arthritis IBS (irritable bowel syndrome) GERD (gastroesophageal reflux disease) Recurrent malignant neoplasm of 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, managed as type 2 HTN (hypertension) Traumatic complete tear of right rotator cuff Surgical History S/P bilateral mastectomy History of bilateral mastectomy (02/19/22) Hx of cholecystectomy Hx of appendectomy Hx of blepharoplasty History of esophagogastroduodenoscopy (EGD) History of lumpectomy of both breasts History of surgery History of colonoscopy S/P ANDRÉS-BSO (total abdominal hysterectomy and bilateral salpingo-oophorectomy) History of lumbar fusion Family History Family History Father Heart problem Mother Heart disease Hypertension Colon cancer Epilepsy Maternal Grandmother Esophageal cancer Daughter Breast cancer Brother Lung cancer Sister Breast cancer Sister Breast cancer, Onset Age: 60 Sister COVID Daughter Acute kidney failure Social History Social History Household Members: None Housing: Apartment Are you a primary medicare biller to a significant other at home: No Do you presently have visiting nurse or other home services: Yes (daughter CHINCHILLA FARMER) Alcohol intake: never Patient Tobacco Use Status: Never used Tobacco e-Cigarette/Vaping Use: Never Used Second Hand Smoke Exposure: No Advance Directives: Yes Advance Directives on File: Yes Advance Directives Date on File: 09/26/21 service: No Current occupational status: disabled 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) Hearing needs: No Vision needs: Yes Physical Exam ED Vital Signs: Vital Signs - 24 hr 02/15/23 08:41 02/15/23 12:51 02/15/23 14:25 Temperature 97.7 F 99.4 F 99.0 F Pulse Rate 69 78 84 Respiratory Rate 16 20 16 Blood Pressure 108/38 L 119/60 141/95 H Pulse Oximetry 97 97 96 Oxygen Delivery Method Room Air Room Air Room Air BMI result Body Mass Index 33.1 Const Other: female looking older than stated age, weak Orientation/consciousness: oriented to person Limitations: no limitations HENMT Head: Yes normal to inspection Ears: external ears normal General nose exam: Normal external nose present Mouth: Normal oral and palatal mucosa present and oropharynx normal Throat: Yes posterior oropharynx normal Eyes General: appearance normal, both eyes and all related structures Neck Neck: Yes normal visual inspection Chest Chest palpation & inspection: normal inspection of the chest Resp Auscultation: clear to auscultation bilaterally Cardio Jugular venous distension: no JVD Rate: regular rate Rhythm: regular rhythm Heart sounds: S1 normal heart sound present and S2 normal heart sound present GI Inspection: Yes normal to inspection Palpation (GI): Soft to palpation, nontender and No hepatosplenomegaly present Auscultation: normal bowel sounds General: Yes no CVA tenderness Back/Spine/Pelvis Back: no CVA tenderness Skin General skin exam: no rashes or lesions noted Neuro General: oriented to person Cranial nerves: Yes CN's II-XII intact bilaterally Motor exam (neuro): 5/5 motor strength present throughout Sensory Exam: No Sensory deficit (Neuro) Extrem Other: left leg more swollen than right Psych Appearance: grossly normal Course Reevaluation(s) Reevaluation #1: Patient will be admitted for syncope, UTI and COVID. Time: 14:39 Medications Administered Discontinued Medications Generic Name Dose Route Start Last Admin Trade Name Freq PRN Reason Stop Dose Admin Ceftriaxone Sodium 1 gm/ 50 mls @ 100 mls/hr 02/15/23 12:26 02/15/23 13:25 Sodium Chloride IV 02/15/23 12:55 100 mls/hr ONCE ONE Administration Oxycodone HCl 5 mg 02/15/23 12:29 02/15/23 13:26 Oxycodone Hcl Immed Release 5 Mg Tablet PO 02/15/23 12:30 5 mg ONCE ONE Administration Medical Decision Making Differential Diagnosis Differential Diagnoses: The differential diagnosis associated with the presentation includes (syncope, Nonstemi, UTI and COVID) Admission/Observation Consideration of admission/observation: Escalation of care including admission/observation considered (upon arrival patient was considered for admission) Consult Healthcare Provider Management of the patient was discussed with: Hospitalist Lab Data 02/15/23 13:06 02/15/23 13:06 Labs: Lab Results 02/15/23 Range/Units 13:06 WBC 7.9 (4.8-10.8) X10*3/uL RBC 4.17 L (4.20-5.50) X10*6/uL Hgb 12.2 (12.0-16.0) g/dl Hct 37.9 (37.0-47.0) % MCV 90.9 (80.0-98.0) fL MCH 29.3 (27.0-33.0) pg MCHC 32.2 (31.0-35.0) g/dl RDW 14.4 (11.0-16.0) % Plt Count 239 (160-400) X10*3/uL MPV Not Reportable Immature Gran % (Auto) 0.3 (0.0-0.4) % Neut % (Auto) 76.3 H (45-73) % Lymph % (Auto) 14.4 L (20-40) % [place] % (Auto) 8.2 (2-11) % Eos % (Auto) 0.3 (0-4) % Baso % (Auto) 0.5 (0-2) % Lymph # (Auto) 1.1 L (1.2-4.9) X10*3/uL [place] # (Auto) 0.7 (0.1-1.2) X10*3/uL Eos # (Auto) 0.0 (0.0-0.4) X10*3/uL Baso # (Auto) 0.0 (0.0-0.2) X10*3/uL Abs Immat Gran (auto) 0.02 (0.00-0.03) X10*3/uL Absolute Neuts (auto) 6.0 (2.0-8.3) x10*3/uL Absolute Nucleated RBC 0.000 (0.0-0.012) X10*3/uL Nucleated RBC % (auto) 0.0 (0.0-0.2) /100WBC Smear Tech's Comments VERIFIED Sodium 137 (135-145) mmol/L Potassium 3.7 (3.3-5.1) mmol/L Chloride 104 (96-108) mmol/L Carbon Dioxide 20 L (22-29) mmol/L Anion Gap 17 (12-20) BUN 14 (9-16) mg/dL Creatinine 1.23 (0.5-1.4) mg/dL Estim Creat Clear Calc 38.3 Estimated GFR 43 Random Glucose 209 H (60-115) mg/dL Calcium 8.3 L (8.4-10.2) mg/dL Total Bilirubin 0.2 (0.0-1.0) mg/dL AST 27 (5-31) U/L ALT 21 (0-31) U/L Alkaline Phosphatase 54 (39-117) U/L Troponin I High Sens 9.1 (<3.5-17.0) ng/L Total Protein 6.9 (6.5-8.0) g/dL Albumin 3.6 (3.5-5.0) g/dL Independent Interpretation I performed an independent interpretation of an: EKG (sinus 80, no st or twave changes) and Plain X-Ray (CXR no infiltrate) Independent Historian Clinical information obtained from an independent historian. History obtained from or confirmed by: Other (daughter and granddaughter) External Record Review reviewed last nights ed record, CXR was negative, there is a UTI and she is positive for COVID Tests considered The following testing was considered but not selected: CT of chest considered but patient is not hypoxic Chronic Conditions Patient?s care impacted by: Cancer Discharge Plan Discharge Clinical Impression: COVID-19 Syncope Qualifiers: Syncope type: unspecified Qualified Code(s): R55 - Syncope and collapse Urinary tract infection Qualifiers: Urinary tract infection type: acute cystitis Hematuria presence: without hematuria Qualified Code(s): N30.00 - Acute cystitis without hematuria Patient Disposition: Admitted As Inpatient Prescriptions: No Action metoprolol tartrate 50 mg tablet 50 mg PO BID Qty: 180 2RF albuterol sulfate 2.5 mg /3 mL (0.083 %) solution for nebulization 2.5 mg inhalation Q6H PRN (Reason: for wheezing) Qty: 150 1RF omeprazole 20 mg capsule,delayed release(DR/EC) 20 mg PO DAILY 90 Days Qty: 90 1RF mirtazapine [Remeron] 15 mg tablet 15 mg PO BEDTIME 30 Days Qty: 30 6RF trazodone 100 mg tablet 200 mg PO BEDTIME 90 Days Qty: 180 1RF dicyclomine 10 mg capsule 20 mg PO QID 30 Days Qty: 240 3RF cyclobenzaprine 5 mg tablet 10 mg PO TID PRN (Reason: for muscle spasm) Qty: 180 3RF (DME) incontinence pad, liner, disp Pad See Rx Instructions .Route Qty: 400 3RF Rx Instructions: As directed (DME) Briefs, Adult-Extra Large Misc See Rx Instructions .Route Qty: 200 3RF Rx Instructions: As directed miscellaneous medical supply Misc 1 ea miscellaneous DAILY 90 Days Qty: 180 3RF miscellaneous medical supply Misc 1 ea miscellaneous DAILY 30 Days Qty: 6 3RF acetaminophen 325 mg tablet 325 mg PO Q6H PRN (Reason: pain) 30 Days Qty: 120 3RF oxycodone 10 mg tablet 10 mg PO Q8H 28 Days Qty: 84 0RF Rx Instructions: Cancer related pain- gabapentin 800 mg tablet 800 mg PO TID 90 Days Qty: 270 1RF cholecalciferol (vitamin D3) [Vitamin D3] 50 mcg (2,000 unit) Tablet 50 mcg PO DAILY Qty: 30 4RF citalopram 20 mg tablet 1 tab PO DAILY amitriptyline 10 mg tablet 20 mg PO BEDTIME PRN (Reason: Insomnia) albuterol sulfate 90 mcg/actuation HFA aerosol inhaler 1 puff PO QID PRN (Reason: Shortness Of Breath) cefuroxime axetil 500 mg tablet 500 mg PO BID Qty: 12 0RF (DME) FreeStyle Lite Strips Strip See Rx Instructions .ROUTE .MEDSUPPLY Qty: 100 3RF Rx Instructions: As directed (DME) blood-glucose meter [FreeStyle Lite Meter] Kit See Rx Instructions .ROUTE .MEDSUPPLY Qty: 1 0RF Rx Instructions: As directed (DME) lancets [FreeStyle Lancets] 28 gauge misc See Rx Instructions .ROUTE .MEDSUPPLY Qty: 100 3RF Rx Instructions: As directed (DME) Blood Pressure Cuff Misc See Rx Instructions .ROUTE .MEDSUPPLY Qty: 1 0RF Rx Instructions: As directed atorvastatin 20 mg tablet 20 mg PO BEDTIME Qty: 90 1RF memantine 28 mg capsule,sprinkle,ER 24hr 28 mg PO DAILY 30 Days Qty: 30 6RF Eliquis 5 mg tablet 5 mg PO BID amlodipine 5 mg tablet 5 mg PO DAILY Qty: 90 1RF furosemide [Lasix] 20 mg tablet 20 mg PO DAILY PRN (Reason: edema) Qty: 30 0RF Rx Instructions: Take 1 tablet daily as needed for lower leg swelling
--- NOTE | 2023-02-15 12:20 | ECG_ITS ---
Test Reason : uti Blood Pressure : / mmHG Vent. Rate : 079 BPM Atrial Rate : 079 BPM P-R Int : 134 ms QRS Dur : 078 ms QT Int : 410 ms P-R-T Axes : 047 -42 009 degrees QTc Int : 470 ms Normal sinus rhythm Left axis deviation Abnormal ECG When compared with ECG of 14-FEB-2023 17:22, No significant change was found Referred By: Olayinka Castillo Electronically Signed By:ALLI MERINO
[2023-02-15 12:51] VITALS: BP 119/60; PULSE 78; RESP 20; TEMP 37.4; O2SAT 97
[2023-02-15 13:15] LABS: Basophils Percent Auto 0.5 % (0-2); Eosinophils Percent Auto 0.3 % (0-4); Hematocrit 37.9 % (37.0-47.0); Hemoglobin 12.2 g/dl (12.0-16.0); Imm Gran Abs Auto 0.02 X10*3/uL (0.00-0.03); Imm Gran Pct Auto 0.3 % (0.0-0.4); Lymphocytes Absolute Auto 1.1 X10*3/uL (1.2-4.9); Lymphocytes Percent Auto 14.4 % (20-40); MANUAL DIFF FLAG SCAN; Mean Corpuscular HGB Conc 32.2 g/dl (31.0-35.0); Mean Corpuscular Hemoglobin 29.3 pg (27.0-33.0); Mean Corpuscular Volume 90.9 fL (80.0-98.0); Monocytes Absolute Auto 0.7 X10*3/uL (0.1-1.2); Monocytes Percent Auto 8.2 % (2-11); Neutrophils Percent Auto 76.3 % (45-73); PLT CLUMP 1; Red Blood Count 4.17 X10*6/uL (4.20-5.50); Red Cell Distribution Width 14.4 % (11.0-16.0); SCAN SMEAR FLAG 1
[2023-02-15] MEDS: cefTRIAXone sodium 1 GM in 0.9 % Sodium Chloride 50 ML IV (13:25)
[2023-02-15] MEDS: oxyCODONE HCl Immed Release 5 MG TABLET PO (13:26)
--- NOTE | 2023-02-15 13:27 | PC.NURSE ---
medicated per the MAR for pain, antibiotics infusing at this time. plan for admission
[2023-02-15 13:34] LABS: Troponin-I High Sensitivity 9.1 ng/L (<3.5-17.0)
[2023-02-15 13:45] LABS: Platelet Count 239 X10*3/uL (160-400); White Blood Count 7.9 X10*3/uL (4.8-10.8)
[2023-02-15 13:46] LABS: SLIDE REVIEW VERIFIED
[2023-02-15 13:58] LABS: Alanine Aminotransferase 21 U/L (0-31); Albumin Level 3.6 g/dL (3.5-5.0); Alkaline Phosphatase 54 U/L (39-117); Anion Gap 17 (12-20); Aspartate Amino Transferase 27 U/L (5-31); Bilirubin Total 0.2 mg/dL (0.0-1.0); Blood Urea Nitrogen 14 mg/dL (9-16); Calcium 8.3 mg/dL (8.4-10.2); Carbon Dioxide 20 mmol/L (22-29); Chloride 104 mmol/L (96-108); Creatinine Clr Calc Pharmacy 38.3; Estimated Glomerular Filt Rate 43; Glucose Random 209 mg/dL (60-115); Potassium 3.7 mmol/L (3.3-5.1); Sodium 137 mmol/L (135-145); Total Protein 6.9 g/dL (6.5-8.0)
[2023-02-15 14:25] VITALS: BP 141/95; PULSE 84; RESP 16; TEMP 37.2; O2SAT 96
--- NOTE | 2023-02-15 15:30 | P.HPHOSP_ITS ---
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 The patient reports being sick for 3-4 days by now with fever, chills, fatigue, weakness, decrease PO intake and productive coughing. she was evaluated in ED yesterday and sent back home as she was found to have a urine infection. Denies any headache, dizziness, lightheadedness, neck pain, neck stiffness, vision changes, chest pain, difficulty breathing, numbness or tingling of the extremities. This morning she had an incident of syncope as she called EMS to bring her back to the hospital and was standing and waiting when she lost her concsiousness and fell to the floor, was out for few minutes per family with no abnormal movements reported. Admitted for further evaluation and treatment. 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 Depression Arthritis IBS (irritable bowel syndrome) GERD (gastroesophageal reflux disease) Recurrent malignant neoplasm of 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, managed as type 2 HTN (hypertension) Traumatic complete tear of right rotator cuff Family History Father Heart problem Mother Heart disease Hypertension Colon cancer Epilepsy Maternal Grandmother Esophageal cancer Daughter Breast cancer Brother Lung cancer Sister Breast cancer Sister Breast cancer, Onset Age: 60 Sister COVID Daughter Acute kidney failure Surgical History S/P bilateral mastectomy History of bilateral mastectomy (02/19/22) Hx of cholecystectomy Hx of appendectomy Hx of blepharoplasty History of esophagogastroduodenoscopy (EGD) History of lumpectomy of both breasts History of surgery History of colonoscopy S/P ANDRÉS-BSO (total abdominal hysterectomy and bilateral salpingo-oophorectomy) History of lumbar fusion Social History Household Members: None Housing: House Are you a primary hospice care consultant to a significant other at home: No Do you presently have visiting nurse or other home services: No (granddaughter Sharla helps take care of her) Alcohol intake: never Patient Tobacco Use Status: Never used Tobacco e-Cigarette/Vaping Use: Never Used Second Hand Smoke Exposure: No Use of substances other than those prescribed or required for medical reasons: No Currently Displaying Signs/Symptoms of Drug Intoxication Withdrawal: No Any prior treatment program specific to substance use: No Have you been hit, kicked, punched, or otherwise hurt by someone within the past year? If so, by whom?: No Do you feel safe in your current relationship?: No Current Relationship Is there a partner from a previous relationship who is making you feel unsafe now?: No Are you made to feel afraid or neglected: No Advance Directives: Yes Advance Directives on File: Yes Advance Directives Date on File: 09/26/21 Recently lost weight without trying: No How much weight loss: Not applicable Eating poorly because of decreased appetite: No Nutrition screen score: 0 Nutrition Risks: No Nutritional Risk Patient : No : No Poor oral hygiene: No service: No Current occupational status: disabled 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) Hearing needs: No Vision needs: Yes Meds Allergies Allergy/AdvReac Type Severity Reaction Status Date / Time No Known Allergies Allergy Verified 02/14/23 17:17 [No Known Allergies*] Home Medications Medication Instructions Recorded Confirmed Last Taken Type citalopram 20 mg tablet 1 tab PO DAILY 05/05/22 02/15/23 12/24/22 History albuterol sulfate 90 mcg/actuation 1 puff PO QID PRN Shortness Of 12/24/22 02/15/23 Unknown History aerosol inhaler Breath amitriptyline 10 mg tablet 20 mg PO BEDTIME PRN Insomnia 12/24/22 02/15/23 Unknown History apixaban 5 mg tablet (Eliquis) 5 mg PO BID 01/31/23 02/15/23 Unknown History letrozole 2.5 mg tablet 2.5 mg PO DAILY 02/15/23 02/15/23 Unknown History Physical Exam 2 Vital Signs and Narrative: Vital Signs: Last Vital Signs Temp 99.0 F 02/15/23 14:25 Pulse 84 02/15/23 14:25 Resp 16 02/15/23 14:25 BP 141/95 H 02/15/23 14:25 Pulse Ox 96 02/15/23 14:25 O2 Del Method Room Air 02/15/23 14:25 BMI result Body Mass Index 33.1 Const: Other: Constitutional : Awake, interactive, looks fatigued and frail Neck : Normal inspection, Supple Cardiovascular : RRR, no JVP, no lower extremity edema Respiratory : fair bilateral air entry, no crackles, no wheezes or rhonchi Gastrointestinal: soft, lax, Normal bowel sounds, Non tender Skin : Warm, Dry Neurological : Alert & oriented x3, No focal deficit Results Labs 02/16/23 06:21 02/16/23 06:21 Labs: Laboratory Results - last 24 hr 02/15/23 13:06 MCV 90.9 MCH 29.3 MCHC 32.2 RDW 14.4 Plt Count 239 MPV Not Reportable Immature Gran % (Auto) 0.3 Neut % (Auto) 76.3 H Lymph % (Auto) 14.4 L [place] % (Auto) 8.2 Eos % (Auto) 0.3 Baso % (Auto) 0.5 Lymph # (Auto) 1.1 L [place] # (Auto) 0.7 Eos # (Auto) 0.0 Baso # (Auto) 0.0 Abs Immat Gran (auto) 0.02 Absolute Neuts (auto) 6.0 Absolute Nucleated RBC 0.000 Nucleated RBC % (auto) 0.0 Smear Tech's Comments VERIFIED Anion Gap 17 Estim Creat Clear Calc 38.3 Estimated GFR 43 Random Glucose 209 H Calcium 8.3 L Total Bilirubin 0.2 AST 27 ALT 21 Alkaline Phosphatase 54 Total Protein 6.9 Albumin 3.6 Assessment and Plan (1) COVID-19: Status: Acute (2) Urinary tract infection: Qualifiers: Hematuria presence: without hematuria Urinary tract infection type: a cute cystitis Qualified Code(s): N30.00 - Acute cystitis without hematuria Status: Acute (3) Syncope: Qualifiers: Syncope type: unspecified Qualified Code(s): R55 - Syncope and collapse Status: Acute Plan 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 Syncope Likely vasovagal vs orthostatic EKG, Trop within normal check orthostatic vitals IVF replacement Keep on Tele PT eval COVID 19 Cough medications Not hypoxic, hold on antivirals UTI Pending cultures Ceftriaxone Hx VTE continue Eliquis DMII POC, diabetic diet SSI Continue rest of home medications DVT PPx Eliquis Patient will likely need >2 overnight hospital stay pending final cultures and clinical improvement w safe discharge plan. Time Spent With Patient Time: Total time managing care of this patient today ____ minutes. Quality Stroke Does the patient have a stroke diagnosis?: No VTE Prior VTE?: No VTE Risk Level:: Medical - moderate - high VTE Device Contraindication: Treatment Not Indicated VTE Drug Contraindication: N/A - Med Ordered
--- NOTE | 2023-02-15 15:48 | PHA.MEDREC ---
Pharmacy Consult ? Medication Reconciliation Pharmacy has completed the medication reconciliation. Patient had list of medications, patient did confirm that she was start on a new medication call letrozole which was no on the list yet. Patient prescribed cefuroxime, how has not started yet. Starla Loomis, PharmD
[2023-02-15] MEDS: guaiFENesin LA 600 MG TAB.ER.12H PO ×2 (16:20→21:39)
[2023-02-15] MEDS: 0.9 % Sodium Chloride Flush 3 ML SYRINGE IVFLUSH (18:54)
[2023-02-15] MEDS: Dicyclomine HCl 10 MG CAPSULE 20 MG PO ×2 (18:55→21:34)
[2023-02-15] MEDS: Acetaminophen 325 MG TABLET 650 MG PO (18:55)
[2023-02-15 18:56] LABS: Glucose, Whole Blood 124 mg/dL (60-115)
[2023-02-15 21:15] VITALS: BP 129/58; PULSE 84; RESP 18; TEMP 37.2; O2SAT 96
[2023-02-15] MEDS: Insulin Lispro 100 UNIT/ML 3 ML VIAL SUBCUT (21:33)
[2023-02-15] MEDS: Gabapentin 400 MG CAPSULE PO (21:34)
[2023-02-15] MEDS: Apixaban 5 MG TABLET PO (21:34)
[2023-02-15] MEDS: Mirtazapine 15 MG TABLET PO (21:34)
[2023-02-15] MEDS: traZODone HCL 100 MG TABLET 200 MG PO (21:34)
[2023-02-15] MEDS: oxyCODONE HCl Immed Release 5 MG TABLET 10 MG PO (21:34)
[2023-02-15] MEDS: Atorvastatin Calcium 20 MG TABLET PO (21:34)
[2023-02-15] MEDS: Metoprolol Tartrate 50 MG TABLET PO (21:35)
--- NOTE | 2023-02-15 21:46 | PC.NURSE ---
Patient alert and oriented, even unlabored respirations noted VSS. IV intact and patent. Pt reporting 8/10 pain at this time. Medications administered as per JUL. Family at bedside. Patient belonging completed and placed in chart. Nurse to nurse report given to Billie
[2023-02-15 22:17] LABS: Glucose, Whole Blood 166 mg/dL (60-115)
[2023-02-15 22:55] VITALS: BP 116/72; PULSE 73; RESP 18; TEMP 36.7; O2SAT 94
[2023-02-15 23:44] VITALS: BP 111/65; PULSE 62; RESP 18; TEMP 36.8; O2SAT 93
[2023-02-16] VITALS (7 sets, daily range): BP systolic 103–143; BP diastolic 62–69; PULSE 68–82; RESP 16–24; TEMP 36.3–37.6; O2SAT 93–94
[2023-02-16] MEDS: 0.9 % Sodium Chloride Flush 3 ML SYRINGE IVFLUSH ×4 (03:04→21:47)
[2023-02-16] MEDS: oxyCODONE HCl Immed Release 5 MG TABLET 10 MG PO ×3 (05:30→21:42)
[2023-02-16] MEDS: Omeprazole 20 MG CAPSULE.DR PO (05:52)
[2023-02-16 07:10] LABS: MANUAL DIFF FLAG NO
[2023-02-16 07:13] LABS: Basophils Percent Auto 0.4 % (0-2); Eosinophils Absolute Auto 0.1 X10*3/uL (0.0-0.4); Eosinophils Percent Auto 0.6 % (0-4); Hematocrit 39.4 % (37.0-47.0); Hemoglobin 12.4 g/dl (12.0-16.0); Imm Gran Abs Auto 0.03 X10*3/uL (0.00-0.03); Imm Gran Pct Auto 0.4 % (0.0-0.4); Lymphocytes Absolute Auto 2.1 X10*3/uL (1.2-4.9); Lymphocytes Percent Auto 25.8 % (20-40); Mean Corpuscular HGB Conc 31.5 g/dl (31.0-35.0); Mean Corpuscular Volume 92.3 fL (80.0-98.0); Mean Platelet Volume 10.3 fL (9.4-12.3); Monocytes Absolute Auto 0.8 X10*3/uL (0.1-1.2); Monocytes Percent Auto 9.9 % (2-11); Neutrophils Absolute Auto 5.1 x10*3/uL (2.0-8.3); Neutrophils Percent Auto 62.9 % (45-73); Platelet Count 303 X10*3/uL (160-400); Red Blood Count 4.27 X10*6/uL (4.20-5.50); Red Cell Distribution Width 14.5 % (11.0-16.0); White Blood Count 8.2 X10*3/uL (4.8-10.8)
[2023-02-16 07:34] LABS: Alanine Aminotransferase 22 U/L (0-31); Albumin Level 3.7 g/dL (3.5-5.0); Alkaline Phosphatase 60 U/L (39-117); Anion Gap 18 (12-20); Aspartate Amino Transferase 25 U/L (5-31); Bilirubin Total 0.2 mg/dL (0.0-1.0); Blood Urea Nitrogen 14 mg/dL (9-16); Calcium 8.5 mg/dL (8.4-10.2); Carbon Dioxide 24 mmol/L (22-29); Chloride 101 mmol/L (96-108); Creatinine Clr Calc Pharmacy 38.8; Estimated Glomerular Filt Rate 43; Glucose Random 143 mg/dL (60-115); Potassium 3.6 mmol/L (3.3-5.1); Sodium 139 mmol/L (135-145)
[2023-02-16 08:16] LABS: Glucose, Whole Blood 153 mg/dL (60-115)
[2023-02-16] MEDS: Metoprolol Tartrate 25 MG TABLET PO ×2 (09:21→21:42)
[2023-02-16] MEDS: Apixaban 5 MG TABLET PO ×2 (09:21→21:41)
[2023-02-16] MEDS: Escitalopram Oxalate 10 MG TABLET PO (09:21)
[2023-02-16] MEDS: Cholecalciferol (Vitamin D3) 25 MCG TABLET 50 MCG PO (09:21)
[2023-02-16] MEDS: guaiFENesin LA 600 MG TAB.ER.12H PO ×2 (09:22→21:43)
[2023-02-16] MEDS: Letrozole 2.5 MG TABLET PO (09:22)
[2023-02-16] MEDS: Dicyclomine HCl 10 MG CAPSULE 20 MG PO ×4 (09:22→21:41)
[2023-02-16] MEDS: Insulin Lispro 100 UNIT/ML 3 ML VIAL SUBCUT (09:22)
[2023-02-16] MEDS: Gabapentin 400 MG CAPSULE PO ×3 (09:22→21:43)
[2023-02-16 11:15] LABS: Glucose, Whole Blood 131 mg/dL (60-115)
--- NOTE | 2023-02-16 11:40 | MHC.CM.PN ---
CM ATTEMPTED TO CONTACT PT VIA PHONE SERGEANT OF CORRECTIONS X3 D/T +COVID19, PT NOT ANSWERING HOSPITAL/ROOM PHONE, CM CONTACTED PT'S DTR/HCP [facility] WHO REPORTS PT LIVES ALONE, USES A CANE HOWEVER FOR LONGER DISTANCES LIKE TRIPS TO THE STORE PT HAS A WALKER AND A WC, PT HAS 39PCA HRS, DTRS/HCP'S [facility] AND THOR ARE PTS LOG MANAGER'S AND SEE HER DAILY, [facility] PROVIDES TRANSPORT TO APPT'S/SHOPPING ETC. PT WAS RECENTLY ACTIVE AND D/C'D FROM [facility] (SN/PT) HOWEVER REPORTS SHE DOES NOT WANT [facility] IF SERVICES ARE NEEDED, [facility] AGREEABLE TO COMFORT PLUS THEY ARE CONTRACTED W/PT'S INSURANCE, REF TO BE PLACED IN ANTIC PT MAY NEED SERVICES. PT COVID VACC X3, PCP IS [facility] AND HCP ON FILE IN [facility]. ANTIC D/C HOME W/RESUMP OF LOG MANAGER HRS, POSSIBLE NEW [facility] AND FAMILY FOR TRANSPORT
[2023-02-16] MEDS: cefTRIAXone sodium 1 GM in 0.9 % Sodium Chloride 50 ML IV (12:20)
[2023-02-16] MEDS: Throat Lozenge, Medicated LOZENGE 1 LOZENGE MUCOUS MEM ×2 (12:59→21:49)
--- NOTE | 2023-02-16 13:10 | HO.PM.IMPN ---
Subjective Subjective Date of Service: 02/16/23 Interval History: Seen and evaluated this morning complaining of chest wall pain still coughing No fever or chills having sore throat Review of Systems Review of Systems: Yes all other systems are reviewed and are negative Physical Exam Vital Signs: Vital Signs: Last Vital Signs Temp 98.8 F 02/16/23 11:07 Pulse 74 02/16/23 11:07 Resp 20 02/16/23 11:07 BP 117/65 02/16/23 11:07 Pulse Ox 94 02/16/23 11:07 O2 Del Method Room Air 02/16/23 11:07 BMI result Body Mass Index 33.1 Const: Other: Constitutional : Awake, interactive, looks frail Neck : Normal inspection, Supple Cardiovascular : RRR, no JVP, no lower extremity edema Respiratory : fair bilateral air entry, no crackles, no wheezes or rhonchi Gastrointestinal: soft, lax, Normal bowel sounds, Non tender Skin : Warm, Dry Neurological : Alert & oriented x3, No focal deficit Objective Data Active Medications Acetaminophen (Acetaminophen 325 Mg Tablet) 650 mg PO Q6H PRN PRN Reason: Pain, Mild (Pain Scale 1-3) Last Admin: 02/15/23 18:55 Dose: 650 mg Documented By: ARIADNA Albuterol Sulfate (Albuterol Sulfate (0.083%) 2.5 Mg/3 Ml Vial.Neb) 2.5 mg INHALE Q6H PRN PRN Reason: for wheezing Amitriptyline HCl (Amitriptyline Hcl 10 Mg Tablet) 20 mg PO BEDTIME PRN PRN Reason: Insomnia Apixaban (Apixaban 5 Mg Tablet) 5 mg PO BID [facility] [place] Last Admin: 02/16/23 09:21 Dose: 5 mg Documented By: ASMITA Atorvastatin Calcium (Atorvastatin Calcium 20 Mg Tablet) 20 mg PO BEDTIME [facility] [place] Last Admin: 02/15/23 21:34 Dose: 20 mg Documented By: MALACHI Benzocaine (Throat Lozenge, Medicated Lozenge) 1 lozenge MUCOUS MEM Q2H PRN PRN Reason: Sore Throat Last Admin: 02/16/23 12:59 Dose: 1 lozenge Documented By: ASMITA Benzonatate (Benzonatate 100 Mg Capsule) 200 mg PO TID PRN PRN Reason: Cough Cyclobenzaprine HCl (Cyclobenzaprine Hcl 10 Mg Tablet) 10 mg PO TID PRN PRN Reason: for muscle spasm Dicyclomine HCl (Dicyclomine Hcl 10 Mg Capsule) 20 mg PO QID [facility] [place] Last Admin: 02/16/23 12:51 Dose: 20 mg Documented By: ASMITA Escitalopram Oxalate (Escitalopram Oxalate 10 Mg Tablet) 10 mg PO DAILY [facility] [place] Last Admin: 02/16/23 09:21 Dose: 10 mg Documented By: ASMITA Gabapentin (Gabapentin 400 Mg Capsule) 400 mg PO TID [facility] Last Admin: 02/16/23 09:22 Dose: 400 mg Documented By: ASMITA Guaifenesin (Guaifenesin La 600 Mg Tab.Er.12h) 600 mg PO BID [facility] Last Admin: 02/16/23 09:22 Dose: 600 mg Documented By: ASMITA Ceftriaxone Sodium 1 gm/ (Sodium Chloride) 50 mls @ 100 mls/hr IV Q24H [facility] [place] Last Infusion: 02/16/23 12:56 Dose: Infused Documented By: ASMITA Insulin Human Lispro (Insulin Lispro 100 Unit/Ml 3 Ml Vial) 0 unit SUBCUT QIDACHS [facility] [place]; Protocol Last Admin: 02/16/23 11:36 Dose: Not Given Documented By: ASMITA Non-Admin Reason: No Insulin Coverage Comments: per sliding scale Letrozole (Letrozole 2.5 Mg Tablet) 2.5 mg PO DAILY [facility] Last Admin: 02/16/23 09:22 Dose: 2.5 mg Documented By: ASMITA Metoprolol Tartrate (Metoprolol Tartrate 25 Mg Tablet) 25 mg PO BID [facility] [place]; Protocol Last Admin: 02/16/23 09:21 Dose: 25 mg Documented By: ASMITA Mirtazapine (Mirtazapine 15 Mg Tablet) 15 mg PO BEDTIME [facility] [place] Last Admin: 02/15/23 21:34 Dose: 15 mg Documented By: MALACHI Non-Formulary Medication (Memantine) 28 mg PO DAILY [facility] Omeprazole (Omeprazole 20 Mg Capsule.) 20 mg PO DAILY@0630 [facility] Last Admin: 02/16/23 05:52 Dose: 20 mg Documented By: ISABELLE Ondansetron HCl (Ondansetron Hcl 4 Mg/2 Ml Vial) 4 mg IVPUSH Q8H PRN PRN Reason: Nausea and Vomiting Oxycodone HCl (Oxycodone Hcl Immed Release 5 Mg Tablet) 10 mg PO Q8H [facility] [place] Last Admin: 02/16/23 12:19 Dose: 10 mg Documented By: ASMITA Sodium Chloride (0.9 % Sodium Chloride Flush 3 Ml Syringe) 3 ml IVFLUSH QSHIFT [facility] [place] Last Admin: 02/16/23 09:23 Dose: 3 ml Documented By: ASMITA Trazodone HCl (Trazodone Hcl 100 Mg Tablet) 200 mg PO BEDTIME [facility] [place] Last Admin: 02/15/23 21:34 Dose: 200 mg Documented By: MALACHI Vitamin D (Cholecalciferol (Vitamin D3) 25 Mcg Tablet) 50 mcg PO DAILY [facility] [place] Last Admin: 02/16/23 09:21 Dose: 50 mcg Documented By: ASMITA Labs 02/16/23 06:21 02/16/23 06:21 Labs: Laboratory Results - last 24 hr 02/15/23 02/15/23 02/15/23 13:06 18:50 21:13 MCV 90.9 MCH 29.3 MCHC 32.2 RDW 14.4 Plt Count 239 MPV Not Reportable Immature Gran % (Auto) 0.3 Neut % (Auto) 76.3 H Lymph % (Auto) 14.4 L [place] % (Auto) 8.2 Eos % (Auto) 0.3 Baso % (Auto) 0.5 Lymph # (Auto) 1.1 L [place] # (Auto) 0.7 Eos # (Auto) 0.0 Baso # (Auto) 0.0 Abs Immat Gran (auto) 0.02 Absolute Neuts (auto) 6.0 Absolute Nucleated RBC 0.000 Nucleated RBC % (auto) 0.0 Smear Tech's Comments VERIFIED Anion Gap 17 Estim Creat Clear Calc 38.3 Estimated GFR 43 POC Glucose 124 H 166 H Random Glucose 209 H Calcium 8.3 L Total Bilirubin 0.2 AST 27 ALT 21 Alkaline Phosphatase 54 Total Protein 6.9 Albumin 3.6 02/16/23 02/16/23 02/16/23 06:21 08:04 11:10 MCV 92.3 MCH 29.0 MCHC 31.5 RDW 14.5 Plt Count 303 D MPV 10.3 Immature Gran % (Auto) 0.4 Neut % (Auto) 62.9 Lymph % (Auto) 25.8 [place] % (Auto) 9.9 Eos % (Auto) 0.6 Baso % (Auto) 0.4 Lymph # (Auto) 2.1 [place] # (Auto) 0.8 Eos # (Auto) 0.1 Baso # (Auto) 0.0 Abs Immat Gran (auto) 0.03 Absolute Neuts (auto) 5.1 Absolute Nucleated RBC 0.000 Nucleated RBC % (auto) 0.0 Smear Tech's Comments Anion Gap 18 Estim Creat Clear Calc 38.8 Estimated GFR 43 POC Glucose 153 H 131 H Random Glucose 143 H Calcium 8.5 Total Bilirubin 0.2 AST 25 ALT 22 Alkaline Phosphatase 60 Total Protein 7.0 Albumin 3.7 Assessment and Plan (1) COVID-19: Status: Acute (2) Urinary tract infection: Status: Acute (3) Syncope: Status: Acute Plan A 72 years old beninese speaking lady w PMH of CAD, DVT on Eliquis, Hx Breast CA s\p Hill Mastectomy, chronic back pain, among others who presents to the hospital with syncope, weakness and cough. Syncope Likely vasovagal vs orthostatic EKG, Trop within normal check orthostatic vitals DC IVF Keep on Tele PT eval COVID 19 Cough medications Not hypoxic, hold on antivirals UTI Pending cultures Ceftriaxone Chest wall pain Muscoskeletal in nature, pain management Hx VTE continue Eliquis DMII POC, diabetic diet SSI Continue rest of home medications DVT PPx Eliquis Patient will likely need overnight hospital stay pending final cultures and clinical improvement w safe discharge plan. Time Spent With Patient Time: Total time managing care of this patient today ____ minutes. Quality Stroke Does the patient have a stroke diagnosis?: No VTE Prior VTE?: No VTE Risk Level:: Medical - moderate - high VTE Device Contraindication: Treatment Not Indicated VTE Drug Contraindication: N/A - Med Ordered
[2023-02-16 16:44] LABS: Glucose, Whole Blood 126 mg/dL (60-115)
[2023-02-16 20:24] LABS: Glucose, Whole Blood 129 mg/dL (60-115)
[2023-02-16] MEDS: Atorvastatin Calcium 20 MG TABLET PO (21:41)
[2023-02-16] MEDS: traZODone HCL 100 MG TABLET 200 MG PO (21:43)
[2023-02-16] MEDS: Mirtazapine 15 MG TABLET PO (21:43)
[2023-02-17 04:00] VITALS: BP 108/62; PULSE 69; RESP 20; TEMP 36.8; O2SAT 93
[2023-02-17] MEDS: Omeprazole 20 MG CAPSULE.DR PO (05:29)
[2023-02-17] MEDS: oxyCODONE HCl Immed Release 5 MG TABLET 10 MG PO ×3 (05:30→20:54)
[2023-02-17 08:00] VITALS: BP 112/64; PULSE 69; RESP 20; TEMP 36.5; O2SAT 98
[2023-02-17 08:55] LABS: Glucose, Whole Blood 115 mg/dL (60-115)
[2023-02-17] MEDS: Gabapentin 400 MG CAPSULE PO ×3 (09:45→20:51)
[2023-02-17] MEDS: guaiFENesin LA 600 MG TAB.ER.12H PO ×2 (09:46→20:56)
[2023-02-17] MEDS: Cholecalciferol (Vitamin D3) 25 MCG TABLET 50 MCG PO (09:46)
[2023-02-17] MEDS: Throat Lozenge, Medicated LOZENGE 1 LOZENGE MUCOUS MEM (09:46)
[2023-02-17] MEDS: 0.9 % Sodium Chloride Flush 3 ML SYRINGE IVFLUSH ×3 (09:46→20:57)
[2023-02-17] MEDS: Metoprolol Tartrate 25 MG TABLET PO ×2 (09:46→20:56)
[2023-02-17] MEDS: Apixaban 5 MG TABLET PO ×2 (09:46→20:56)
[2023-02-17] MEDS: Dicyclomine HCl 10 MG CAPSULE 20 MG PO ×4 (09:46→20:52)
[2023-02-17] MEDS: Letrozole 2.5 MG TABLET PO (09:46)
[2023-02-17] MEDS: Escitalopram Oxalate 10 MG TABLET PO (09:46)
[2023-02-17 12:00] VITALS: BP 122/80; PULSE 79; RESP 16; TEMP 36.1; O2SAT 97
[2023-02-17 12:00] LABS: Glucose, Whole Blood 128 mg/dL (60-115)
[2023-02-17] MEDS: Lidocaine 4 % Patch ADH..PATCH 1 PATCH TRANSDERMA (12:04)
[2023-02-17] MEDS: Benzonatate 100 MG CAPSULE 200 MG PO ×2 (12:04→20:53)
--- NOTE | 2023-02-17 13:03 | HO.PM.IMPN ---
Subjective Subjective Date of Service: 02/17/23 Interval History: Seen and evaluated this morning complaining of chest wall pain Pending final culture positive for GPC still coughing No fever or chills improved sore throat Review of Systems Review of Systems: Yes all other systems are reviewed and are negative Physical Exam Vital Signs: Vital Signs: Last Vital Signs Temp 97.7 F 02/17/23 08:00 Pulse 69 02/17/23 08:00 Resp 20 02/17/23 08:00 BP 112/64 02/17/23 08:00 Pulse Ox 98 02/17/23 08:00 O2 Del Method Room Air 02/17/23 08:00 BMI result Body Mass Index 33.1 Const: Other: Constitutional : Awake, interactive, looks frail Neck : Normal inspection, Supple Cardiovascular : RRR, no JVP, no lower extremity edema Respiratory : fair bilateral air entry, no crackles, no wheezes or rhonchi Gastrointestinal: soft, lax, Normal bowel sounds, Non tender Skin : Warm, Dry Neurological : Alert & oriented x3, No focal deficit Objective Data Active Medications Acetaminophen (Acetaminophen 325 Mg Tablet) 650 mg PO Q6H PRN PRN Reason: Pain, Mild (Pain Scale 1-3) Last Admin: 02/15/23 18:55 Dose: 650 mg Documented By: ARIADNA Albuterol Sulfate (Albuterol Sulfate (0.083%) 2.5 Mg/3 Ml Vial.Neb) 2.5 mg INHALE Q6H PRN PRN Reason: for wheezing Amitriptyline HCl (Amitriptyline Hcl 10 Mg Tablet) 20 mg PO BEDTIME PRN PRN Reason: Insomnia Apixaban (Apixaban 5 Mg Tablet) 5 mg PO BID [facility] Last Admin: 02/17/23 09:46 Dose: 5 mg Documented By: ASMITA Atorvastatin Calcium (Atorvastatin Calcium 20 Mg Tablet) 20 mg PO BEDTIME [facility] Last Admin: 02/16/23 21:41 Dose: 20 mg Documented By: ISABELLE Benzocaine (Throat Lozenge, Medicated Lozenge) 1 lozenge MUCOUS MEM Q2H PRN PRN Reason: Sore Throat Last Admin: 02/17/23 09:46 Dose: 1 lozenge Documented By: ASMITA Benzonatate (Benzonatate 100 Mg Capsule) 200 mg PO TID [facility] Last Admin: 02/17/23 12:04 Dose: 200 mg Documented By: ASMITA Cyclobenzaprine HCl (Cyclobenzaprine Hcl 10 Mg Tablet) 10 mg PO TID PRN PRN Reason: for muscle spasm Dicyclomine HCl (Dicyclomine Hcl 10 Mg Capsule) 20 mg PO QID [facility] Last Admin: 02/17/23 09:46 Dose: 20 mg Documented By: ASMITA Escitalopram Oxalate (Escitalopram Oxalate 10 Mg Tablet) 10 mg PO DAILY [facility] Last Admin: 02/17/23 09:46 Dose: 10 mg Documented By: ASMITA Gabapentin (Gabapentin 400 Mg Capsule) 400 mg PO TID [facility] Last Admin: 02/17/23 09:45 Dose: 400 mg Documented By: ASMITA Guaifenesin (Guaifenesin La 600 Mg Tab.Er.12h) 600 mg PO BID [facility] Last Admin: 02/17/23 09:46 Dose: 600 mg Documented By: ASMITA Ceftriaxone Sodium 1 gm/ (Sodium Chloride) 50 mls @ 100 mls/hr IV Q24H [facility] Last Infusion: 02/16/23 12:56 Dose: Infused Documented By: ASMITA Insulin Human Lispro (Insulin Lispro 100 Unit/Ml 3 Ml Vial) 0 unit SUBCUT QIDACHS [facility]; Protocol Last Admin: 02/17/23 12:05 Dose: Not Given Documented By: ASMITA Non-Admin Reason: No Insulin Coverage Comments: per sliding scale Letrozole (Letrozole 2.5 Mg Tablet) 2.5 mg PO DAILY [facility] Last Admin: 02/17/23 09:46 Dose: 2.5 mg Documented By: ASMITA Lidocaine (Lidocaine 4 % Patch Adh..Patch) 1 patch TRANSDERMA DAILY [facility]; Protocol Last Admin: 02/17/23 12:04 Dose: 1 patch Documented By: ASMITA Metoprolol Tartrate (Metoprolol Tartrate 25 Mg Tablet) 25 mg PO BID [facility]; Protocol Last Admin: 02/17/23 09:46 Dose: 25 mg Documented By: ASMITA Mirtazapine (Mirtazapine 15 Mg Tablet) 15 mg PO BEDTIME [facility] Last Admin: 02/16/23 21:43 Dose: 15 mg Documented By: ISABELLE Non-Formulary Medication (Memantine) 28 mg PO DAILY [facility] Omeprazole (Omeprazole 20 Mg Capsule.) 20 mg PO DAILY@0630 [facility] Last Admin: 02/17/23 05:29 Dose: 20 mg Documented By: ISABELLE Ondansetron HCl (Ondansetron Hcl 4 Mg/2 Ml Vial) 4 mg IVPUSH Q8H PRN PRN Reason: Nausea and Vomiting Oxycodone HCl (Oxycodone Hcl Immed Release 5 Mg Tablet) 10 mg PO Q8H [facility] Last Admin: 02/17/23 12:03 Dose: 10 mg Documented By: ASMITA Sodium Chloride (0.9 % Sodium Chloride Flush 3 Ml Syringe) 3 ml IVFLUSH QSHIFT [facility] Last Admin: 02/17/23 09:46 Dose: 3 ml Documented By: ASMITA Trazodone HCl (Trazodone Hcl 100 Mg Tablet) 200 mg PO BEDTIME [facility] Last Admin: 02/16/23 21:43 Dose: 200 mg Documented By: ISABELLE Vitamin D (Cholecalciferol (Vitamin D3) 25 Mcg Tablet) 50 mcg PO DAILY [facility] Last Admin: 02/17/23 09:46 Dose: 50 mcg Documented By: ASMITA Labs 02/16/23 06:21 02/16/23 06:21 Labs: Laboratory Results - last 24 hr 02/16/23 02/16/23 02/17/23 16:36 20:19 08:26 POC Glucose 126 H 129 H 115 02/17/23 11:16 POC Glucose 128 H Microbiology Microbiology Results: Microbiology 02/15/23 13:11 Blood Culture - Preliminary Blood - Venous No growth after 24 hours. 02/15/23 13:06 Blood Culture - Preliminary Blood - Venous No growth after 24 hours. Assessment and Plan (1) COVID-19: Status: Acute (2) Urinary tract infection: Status: Acute (3) Syncope: Status: Acute Plan A 72 years old croatian speaking lady w PMH of CAD, DVT on Eliquis, Hx Breast CA s\p Hill Mastectomy, chronic back pain, among others who presents to the hospital with syncope, weakness and cough. Syncope Likely vasovagal vs orthostatic EKG, Trop within normal satble orthostatic vitals dc IVF Keep on Tele PT rec home w VNA COVID 19 Cough medications Not hypoxic, hold on antivirals UTI Pending cultures Ceftriaxone Positive blood culture 1 set only, could be contaminent on Ceftriaxone, pending final culture result Hx VTE continue Eliquis DMII POC, diabetic diet SSI Continue rest of home medications DVT PPx Eliquis Patient will likely need >2 overnight hospital stay pending final cultures and clinical improvement w safe discharge plan. Time Spent With Patient Time: Total time managing care of this patient today ____ minutes. Quality Stroke Does the patient have a stroke diagnosis?: No VTE Prior VTE?: No VTE Risk Level:: Medical - moderate - high VTE Device Contraindication: Treatment Not Indicated VTE Drug Contraindication: N/A - Med Ordered
[2023-02-17] MEDS: cefTRIAXone sodium 1 GM in 0.9 % Sodium Chloride 50 ML IV (13:32)
[2023-02-17 15:34] VITALS: BP 124/60; PULSE 66; RESP 20; TEMP 35.9; O2SAT 98
[2023-02-17 16:25] LABS: Glucose, Whole Blood 117 mg/dL (60-115)
[2023-02-17 19:17] VITALS: BP 117/68; PULSE 71; RESP 20; TEMP 36.7; O2SAT 98
[2023-02-17 19:53] LABS: Glucose, Whole Blood 170 mg/dL (60-115)
[2023-02-17] MEDS: Mirtazapine 15 MG TABLET PO (20:53)
[2023-02-17] MEDS: Insulin Lispro 100 UNIT/ML 3 ML VIAL SUBCUT (20:54)
[2023-02-17] MEDS: Atorvastatin Calcium 20 MG TABLET PO (20:56)
[2023-02-17] MEDS: traZODone HCL 100 MG TABLET 200 MG PO (20:57)
[2023-02-18] VITALS: BP 122/73; PULSE 72; RESP 16; TEMP 36.6; O2SAT 94
[2023-02-18 04:00] VITALS: BP 110/74; PULSE 66; RESP 18; TEMP 36.5; O2SAT 96
[2023-02-18 04:35] VITALS: BP 124/72; PULSE 74; RESP 18; TEMP 36.6; O2SAT 96
[2023-02-18] MEDS: oxyCODONE HCl Immed Release 5 MG TABLET 10 MG PO ×2 (06:07→13:06)
[2023-02-18] MEDS: Omeprazole 20 MG CAPSULE.DR PO (06:08)
[2023-02-18 08:00] VITALS: BP 114/58; PULSE 63; RESP 18; TEMP 36.4; O2SAT 94
[2023-02-18 08:08] LABS: Glucose, Whole Blood 101 mg/dL (60-115)
[2023-02-18] MEDS: Benzonatate 100 MG CAPSULE 200 MG PO (08:22)
[2023-02-18] MEDS: Escitalopram Oxalate 10 MG TABLET PO (08:22)
[2023-02-18] MEDS: Gabapentin 400 MG CAPSULE PO (08:22)
[2023-02-18] MEDS: Dicyclomine HCl 10 MG CAPSULE 20 MG PO (08:22)
[2023-02-18] MEDS: Cholecalciferol (Vitamin D3) 25 MCG TABLET 50 MCG PO (08:22)
[2023-02-18] MEDS: guaiFENesin LA 600 MG TAB.ER.12H PO (08:22)
[2023-02-18] MEDS: Metoprolol Tartrate 25 MG TABLET PO (08:22)
[2023-02-18] MEDS: Letrozole 2.5 MG TABLET PO (08:22)
[2023-02-18] MEDS: Apixaban 5 MG TABLET PO (08:23)
[2023-02-18] MEDS: 0.9 % Sodium Chloride Flush 3 ML SYRINGE IVFLUSH (08:23)
[2023-02-18] MEDS: Lidocaine 4 % Patch ADH..PATCH 1 PATCH TRANSDERMA (08:23)
[2023-02-18] MEDS: Acetaminophen 325 MG TABLET 650 MG PO (08:28)
--- NOTE | 2023-02-18 11:18 | MHC.CM.PN ---
Addendum entered by Olamide Childs 02/18/23 13:18: Attempted to make alternate referrals for VNA services- unable to secure another agency d/t multiple reasons (capacity/staffing/not meet needs). Spoke w/ Cornelia about what her concerns are w/ switching, she reports Mom has many appointments and VNA will frequently not provide enough notice. Called and spoke w/ Mary @ [facility], [facility], her team is willing to accommodate schedule if provided by Cornelia. This plan communicated to Cornelia and she is in agreement. Original Note: Per round patient cleared for d/c today. Call placed to Cornelia HCP and made aware, she reports pt's granddaughter will picking supervisor patient between 1p-2p. CM working to secure VNA services. Per family they no longer would like to continue services w/ [facility], [facility].
[2023-02-18 11:40] LABS: Glucose, Whole Blood 139 mg/dL (60-115)
[2023-02-18 11:42] VITALS: BP 108/56; PULSE 65; RESP 18; TEMP 37.1; O2SAT 95
--- NOTE | 2023-02-18 12:46 | P.DS_ITS ---
DS: Providers Provider Date of Service: 02/18/23 Date of admission: 02/15/23 15:22 Primary care physician: Milan Mcgraw PA-C DS: Diagnosis Discharge Diagnosis (1) COVID-19: Status: Acute (2) Urinary tract infection: Status: Acute (3) Syncope: Status: Acute (4) Physical deconditioning: Status: Acute DS: Summary Hospital Course Hospital Course: Admission note HPI A 72 years old cook islander speaking lady w PMH of CAD, DVT on Eliquis, Hx Breast CA s\p Hill Mastectomy, chronic back pain, among others who presents to the hospital with syncope, weakness and cough. The patient reports being sick for 3-4 days by now with fever, chills, fatigue, weakness, decrease PO intake and productive coughing. she was evaluated in ED yesterday and sent back home as she was found to have a urine infection. Denies any headache, dizziness, lightheadedness, neck pain, neck stiffness, vision changes, chest pain, difficulty breathing, numbness or tingling of the extremities. This morning she had an incident of syncope as she called EMS to bring her back to the hospital and was standing and waiting when she lost her concsiousness and fell to the floor, was out for few minutes per family with no abnormal movements reported. Admitted for further evaluation and treatment. Hospital course Reported Syncope on admission. Likely vasovagal vs orthostatic given low BP readings during hospital stay. improved with IV fluids. no recurrence while inpatient. EKG, Trop within normal. satble orthostatic vitals. no abnormal waves on Tele. Evaluated by PT who recommended home w VNA. To hold Amlodipine for low normal BP readings and Amytriptyline at night. COVID 19 infection with no hypoxia, treated symptomatically with Cough medications and Lidocaine patches for chest wall pain. can use Tylenol PRN. UTI, negative cultures. Treated with Ceftriaxone Positive blood culture, 1 set only which is contaminent as it grew a contaminant of Corynebacterium. Hold Amlodipine, monitor blood pressure to decide on the need to restart it, check 1 week readings and discuss with PCP Discontinue Amytriptyline Continue Cough medications as needed Tylenol as needed for pain control To do physical therapy at home Time Spent with Patient Time attestation: Total time managing care of this patient today ____ minutes. Discharge coordination time: Greater than 30 minutes Quality: Safe Use of Opioids Does Pt have an Active Cancer Diagnosis on the Problem List?: No Quality: Stroke Does the patient have a stroke diagnosis?: No Physical Exam Vital Signs: Vital Signs: Last Vital Signs Temp 98.7 F 02/18/23 11:42 Pulse 65 02/18/23 11:42 Resp 18 02/18/23 11:42 BP 108/56 L 02/18/23 11:42 Pulse Ox 95 02/18/23 11:42 O2 Del Method Room Air 02/18/23 11:42 BMI result Body Mass Index 33.1 Const: Other: Constitutional : Awake, interactive, looks frail Neck : Normal inspection, Supple Cardiovascular : RRR, no JVP, no lower extremity edema Respiratory : fair bilateral air entry, no crackles, no wheezes or rhonchi Gastrointestinal: soft, lax, Normal bowel sounds, Non tender Skin : Warm, Dry Neurological : Alert & oriented x3, No focal deficit DS: Data Data Completed and Pending Completed studies during hospitalization [Text1]: Procedures Drainage of Chest Wall with Drainage Device, Open Approach (04/13/22) Drainage of Left Breast, Percutaneous Approach (03/30/22) Excision of Chest Subcutaneous Tissue and Fascia, Open Approach, Diagnostic (05/05/22) Insertion of Infusion Device into Superior Vena Cava, Percutaneous Approach (12/25/22) Resection of Bilateral Breast, Open Approach (02/19/22) Resection of Right Axillary Lymphatic, Open Approach (02/19/22) Ultrasonography of Superior Vena Cava, Guidance (12/25/22) Labs on day of discharge: Laboratory Results - last 24 hr 02/17/23 02/17/23 02/18/23 16:22 19:49 08:04 POC Glucose 117 H 170 H 101 02/18/23 11:22 POC Glucose 139 H Preliminary micro results at discharge 02/15/23 13:11 Blood Culture - Preliminary Blood - Venous No growth after 48 hours. 02/15/23 13:06 Blood Culture - Preliminary Blood - Venous No growth after 48 hours. Discharge Plan Discharge Anticipated Discharge Date/Time: 02/18/23 12:37 Patient Disposition: Home Health Service Discharge Diagnosis: UTI Covid infection Referrals: Milan Mcgraw PA-C [Primary Care Provider] - 1 Week Discharge Medications: New guaifenesin [Mucinex] 600 mg Tablet Extended Release 12hr 600 mg PO BID Qty: 14 0RF benzonatate 100 mg Capsule 200 mg PO TID Qty: 30 0RF lidocaine [Lidocaine Pain Relief] 4 % Adhesive Patch,Medicated 1 patch transdermal DAILY Qty: 10 0RF Protocol: Apply to: Apply to: chest wall Continued metoprolol tartrate 50 mg tablet 50 mg PO BID Qty: 180 2RF albuterol sulfate 2.5 mg /3 mL (0.083 %) solution for nebulization 2.5 mg inhalation Q6H PRN (Reason: for wheezing) Qty: 150 1RF omeprazole 20 mg capsule,delayed release(DR/EC) 20 mg PO DAILY 90 Days Qty: 90 1RF mirtazapine [Remeron] 15 mg tablet 15 mg PO BEDTIME 30 Days Qty: 30 6RF trazodone 100 mg tablet 200 mg PO BEDTIME 90 Days Qty: 180 1RF dicyclomine 10 mg capsule 20 mg PO QID 30 Days Qty: 240 3RF cyclobenzaprine 5 mg tablet 10 mg PO TID PRN (Reason: for muscle spasm) Qty: 180 3RF (DME) incontinence pad, liner, disp Pad See Rx Instructions .Route Qty: 400 3RF Rx Instructions: As directed (DME) Briefs, Adult-Extra Large Misc See Rx Instructions .Route Qty: 200 3RF Rx Instructions: As directed acetaminophen 325 mg tablet 325 mg PO Q6H PRN (Reason: pain) 30 Days Qty: 120 3RF oxycodone 10 mg tablet 10 mg PO Q8H 28 Days Qty: 84 0RF Rx Instructions: Cancer related pain- gabapentin 800 mg tablet 800 mg PO TID 90 Days Qty: 270 1RF cholecalciferol (vitamin D3) [Vitamin D3] 50 mcg (2,000 unit) Tablet 50 mcg PO DAILY Qty: 30 4RF citalopram 20 mg tablet 1 tab PO DAILY albuterol sulfate 90 mcg/actuation HFA aerosol inhaler 1 puff PO QID PRN (Reason: Shortness Of Breath) letrozole 2.5 mg tablet 2.5 mg PO DAILY (DME) FreeStyle Lite Strips Strip See Rx Instructions .ROUTE .MEDSUPPLY Qty: 100 3RF Rx Instructions: As directed (DME) blood-glucose meter [FreeStyle Lite Meter] Kit See Rx Instructions .ROUTE .MEDSUPPLY Qty: 1 0RF Rx Instructions: As directed (DME) lancets [FreeStyle Lancets] 28 gauge misc See Rx Instructions .ROUTE .MEDSUPPLY Qty: 100 3RF Rx Instructions: As directed (DME) Blood Pressure Cuff Misc See Rx Instructions .ROUTE .MEDSUPPLY Qty: 1 0RF Rx Instructions: As directed atorvastatin 20 mg tablet 20 mg PO BEDTIME Qty: 90 1RF memantine 28 mg capsule,sprinkle,ER 24hr 28 mg PO DAILY 30 Days Qty: 30 6RF Eliquis 5 mg tablet 5 mg PO BID furosemide [Lasix] 20 mg tablet 20 mg PO DAILY PRN (Reason: edema) Qty: 30 0RF Rx Instructions: Take 1 tablet daily as needed for lower leg swelling Held amlodipine 5 mg tablet 5 mg PO DAILY Qty: 90 1RF Hold Instructions: Monitor BP at home, restart if needed Discontinued amitriptyline 10 mg tablet 20 mg PO BEDTIME PRN (Reason: Insomnia) cefuroxime axetil 500 mg tablet 500 mg PO BID Qty: 12 0RF Discharge Orders: Discharge Order (Routine); Ordered 02/18/23 Ordered By: David Conde Diet: Advance to usual diet Activity on Discharge: As tolerated Stand Alone Forms: Patient Portal Discharge page Care Plan Goals: Read below Health Concerns: Read below Plan of Treatment: Read below Assessment: Hold Amlodipine, monitor blood pressure to decide on the need to restart it, check 1 week readings and discuss with PCP Discontinue Amytriptyline Continue Cough medications as needed Tylenol as needed for pain control To do physical therapy at home
--- NOTE | 2023-02-18 12:51 | P.F2F_ITS ---
Service Date Service Date: 02/18/23 Encounter Date of encounter: 02/18/23 Reasons for Services Signs and symptoms assessed: Physical deconditioning Reason for physical therapy: home safety and mobility and therapeutic exercises Homebound: Leaving the home is medically contraindicated at this time without the asist of a device and/or another person due th the listed conditions above and below. Reason homebound: unsteady gait / fall risk Certification: Based on the above findings, I certify that this patient is confined to the home and needs intermittent jail care, physical therapy and/or speech therapy, or continues to need occupational therapy. The patient is under my care, and I have initiated the establishment of the plan of care. The patient will be followed by a physician who will periodically review the plan of care. Time Spent With Patient Time: Total time managing care of this patient today ____ minutes.
== END 2023-02-18 13:36 | disposition home health service (06) | DRG 689 ==
LOC: HO.ED 14:41 → HO.EDOVER 15:34 → HO.IMC 18:18
PROVIDERS: Admitting Provider Student in an Organized Health Care Education/Training Program; Emergency Provider Emergency Medicine; PCP Physician Assistant; Visit Provider Student in an Organized Health Care Education/Training Program
DX: N39.0 Urinary tract infection, site not specified (principal); U07.1 COVID-19; I95.1 Orthostatic hypotension; E13.9 Other specified diabetes mellitus without complications; I25.10 Atherosclerotic heart disease of native coronary artery without angina pectoris; Z98.1 Arthrodesis status; Z85.3 Personal history of malignant neoplasm of breast; Z90.13 Acquired absence of bilateral breasts and nipples; Z79.01 Long term (current) use of anticoagulants; Z79.899 Other long term (current) drug therapy
CPT/HCPCS: 36415; 80053; 82947; 84484; 85025; 87040; 93005; 97162; 99285; J0696

== ENCOUNTER → 2023-02-15 15:22 | Outpatient (BNV) | payer OTHER, SELFPAY | PROVIDERS: Admitting Provider Student in an Organized Health Care Education/Training Program; Emergency Provider Emergency Medicine; PCP Physician Assistant; Visit Provider Student in an Organized Health Care Education/Training Program | DX: U07.1 COVID-19 (principal); N30.00 Acute cystitis without hematuria; R55 Syncope and collapse; R53.81 Other malaise | CPT/HCPCS: 99223; 99233; 99239; G0180 ==

== ENCOUNTER 2023-02-26 12:33 | Outpatient (REF) | payer OTHER, SELFPAY ==
[2023-02-26 12:55] LABS: Appearance Urine Clear; Color Urine Yellow; Glucose Urine UA Negative (Negative); Leukocyte Esterase Urine Moderate (2+) (Negative); Nitrite Urine Negative (Negative); Specific Gravity - Urine 1.015 (1.005-1.025); UMIC TRIGGER UA YES; Urine Blood Negative (Negative); Urine Ketones Negative (Negative); Urine Protein Negative (Neg-Trace)
[2023-02-26 13:09] LABS: Bacteria Urine 2+ (None Seen); Hyaline Casts Urine 0-2 /LPF (0-2); RBC Urine 0-2 /HPF (0-2)
== END 2023-02-26 12:34 | disposition home or self-care (01) ==
LOC: HO.HVNA 12:33
PROVIDERS: Visit Provider Physician Assistant
DX: I82.402 Acute embolism and thrombosis of unspecified deep veins of left lower extremity (principal); N39.0 Urinary tract infection, site not specified
CPT/HCPCS: 81001; 81003; 87086

== ENCOUNTER 2023-04-22 11:21 | Outpatient (AMB) | payer OTHER, SELFPAY ==
--- NOTE | 2023-04-22 11:23 | MHC.OFFVIS ---
Intake Vital Signs 04/22/23 11:26 Height 5 ft Weight 175 lb BMI 34.2 Pulse 84 Pulse Source Pulse Oximeter Pulse Oximetry (%) 98 Oxygen Delivery Method Room Air Intake Visit Reasons: New appt. Real Estate Services Administrator Required: No Allergies No Known Allergies [No Known Allergies*] Allergy (Verified 04/22/23 11:27) HPI HPI Comments History of Present Illness Details The patient is here for pulmonary evaluation. The patient is a 73 year woman with a known history of breast cancer status post bilateral mastectomy and apparently had been on tamoxifen. A she was in usual state health until back over the summer she started developing significant lower extremity discomfort and swelling primarily the left leg. She had an ultrasound that demonstrating a DVT the patient was sent to the hospital. She was admitted to the hospital and that she had a CTA demonstrating also significant pulmonary emboli she. The patient was placed on Eliquis. During the hospitalization the patient did have elevations in the cardiac enzymes event therefore it was prefer to she treat her conservatively. She was evaluated by vascular surgery briefly. The patient subsequently was discharged and then she presented to [facility] in December with worsening left lower extremity pain. There she had another ultrasound demonstrating persistent extensive clot of the lower extremity. Rosy while she does complaint of dyspnea on exertion. She is limited as far as rectal and gait and she does have a walker or cane. During the visit we did have her go for 6 minutes walk test the patient did not desaturate she maintain a pulse ox of 96-98% which is reassuring however heart rate was elevated in the low 100s. We did review her CTA that she had back in November personally by me laterally that she had bilateral blood clots but she also had extensive ground-glass opacities. The etiology is unclear. Will go ahead and request blood work evaluation for the pneumonitis. She she is currently on Eliquis and she is off the tamoxifen altogether. She does follow closely with Oncology. Based on the fact the continues to have symptoms will going to repeat her CTA this point and also her left lower extremity Doppler to assess the clot burden. If she continues to have clot burden primarily the left lower extremity will go ahead and refer her back to vascular surgery. If her clot burden still significant in the chest area then will have to contemplate a different anticoagulation regimen for her. 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 Depression Arthritis IBS (irritable bowel syndrome) GERD (gastroesophageal reflux disease) Diabetes 1.5, managed as type 2 HTN (hypertension) Traumatic complete tear of right rotator cuff Surgical History (Updated 02/20/23 @ 00:03 by Desmond Navarro) S/P bilateral mastectomy History of bilateral mastectomy (02/19/22) Hx of cholecystectomy Hx of appendectomy Hx of blepharoplasty History of esophagogastroduodenoscopy (EGD) History of lumpectomy of both breasts History of surgery History of colonoscopy S/P ANDRÉS-BSO (total abdominal hysterectomy and bilateral salpingo-oophorectomy) History of lumbar fusion Family History Father Heart problem Mother Heart disease Hypertension Colon cancer Epilepsy Maternal Grandmother Esophageal cancer Daughter Breast cancer Brother Lung cancer Sister Breast cancer Sister Breast cancer, Onset Age: 60 Sister COVID Daughter Acute kidney failure Household Members: None Housing: House Are you a primary farm or ranch animal caretaker to a significant other at home: No Do you presently have visiting nurse or other home services: No (granddaughter Sharla helps take care of her) Alcohol intake: never Patient Tobacco Use Status: Never used Tobacco e-Cigarette/Vaping Use: Never Used Second Hand Smoke Exposure: No Advance Directives Date on File: 09/26/21 service: No Current occupational status: disabled 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) Hearing needs: No Vision needs: Yes Female Reproductive History Menstrual Age of Menarche: 9 Review of Systems Const Reports fatigue and Denies fever(s) Eyes Denies change in vision ENT Denies dizziness Card Denies chest pain, Reports leg edema, Reports palpitations and Reports dyspnea on exertion Resp Denies cough, Reports dyspnea on exertion and Denies wheezing GI Denies hematochezia and Denies change in stool character Musc Reports abnormal gait and Reports myalgias Skin/Breast Denies rash Neuro Reports abnormal gait and Denies dizziness Endo Reports fatigue and Reports palpitations Neo/Lymph Denies easy bleeding, Denies easy bruising and Denies lymphadenopathy Aller/Immun Denies wheezing Physical Exam Vital Signs: Last Vital Signs Pulse 84 04/22/23 11:26 Pulse Ox 98 04/22/23 11:26 Oxygen Delivery Method Room Air 04/22/23 11:26 BMI result Body Mass Index 34.2 Const General: no acute distress and alert HEENT Head: Yes atraumatic Neck Neck: Yes supple Chest Chest palpation & inspection: normal inspection of the chest Resp Effort & Inspection: normal respiratory effort Auscultation: wheezes and diminished lung sounds Cardio Rate: regular rate Rhythm: regular rhythm Heart sounds: S1 normal heart sound present and S2 normal heart sound present GI Palpation (GI): Soft to palpation Skin General skin exam: no rashes or lesions noted Extrem General: No clubbing, No cyanosis and Yes edema Results Reviewed Results Reviewed: personally reviewed CTA with GGO and +PE ECHO: mild pulm HTN LE doppler: extensive LLE DVT Assessment & Plan Assessment & Plan (1) Pulmonary emboli: Code(s): I26.99 - Other pulmonary embolism without acute cor pulmonale Qualifiers: Pulmonary embolism type: multiple subsegmental (without acute cor pulmonale) Qualified Code(s): I26.94 - Multiple subsegmental pulmonary emboli without acute cor pulmonale (2) DVT (deep venous thrombosis): Code(s): I82.409 - Acute embolism and thrombosis of unspecified deep veins of unspecified lower extremity Qualifiers: Affected thrombotic vein of extremity: unspecified vein of extremity Chronicity: acute DVT location: lower extremity Laterality: left Qualified Code(s): I82.402 - Acute embolism and thrombosis of unspecified deep veins of left lower extremity (3) Pulmonary hypertension: Code(s): I27.20 - Pulmonary hypertension, unspecified (4) Pneumonitis: Code(s): J98.4 - Other disorders of lung (5) History of bilateral mastectomy: Onset Date: 02/19/22 Comment: right breast modified radical mastectomy, prophylactic left simple mastectomy- Renard Malik MD Code(s): Z90.13 - Acquired absence of bilateral breasts and nipples Plan Bloodwork repeat CTA to reassess clot burden and pneumonitis continue Eliquis, consider changing anticoagulation if PE is still persistent Repeat LLE doppler Consider varcular referral if DVT is persistent start Breo daily continue JAMARCUS as needed Orders: Orders ANCA Vasculitides Today I26.99 - Other pulmonary embolism without acute cor pulmonale, J98.4 - Other disorders of lung US venous duplex LE LT Today I26.99 - Other pulmonary embolism without acute cor pulmonale, I82.409 - Acute embolism and thrombosis of unspecified deep veins of unspecified lower extremity Complete Blood Count Auto Diff Today I26.99 - Other pulmonary embolism without acute cor pulmonale, J98.4 - Other disorders of lung Basic Metabolic Panel Today I26.99 - Other pulmonary embolism without acute cor pulmonale, J98.4 - Other disorders of lung Erythrocyte Sedimentation Rate Today I26.99 - Other pulmonary embolism without acute cor pulmonale, J98.4 - Other disorders of lung ML Reflex Titer and Pattern Today I26.99 - Other pulmonary embolism without acute cor pulmonale, J98.4 - Other disorders of lung Cyclic Citrullinated Peptide Today I26.99 - Other pulmonary embolism without acute cor pulmonale, J98.4 - Other disorders of lung CT angio chest PE protocol Today I26.99 - Other pulmonary embolism without acute cor pulmonale, I82.409 - Acute embolism and thrombosis of unspecified deep veins of unspecified lower extremity Medications: New fluticasone furoate-vilanterol 200-25 mcg/dose (Breo Ellipta) 1 inh inhalation DAILY 30 days 60 ea 11RF J45.909 - Unspecified asthma, uncomplicated Coding Level of Care Code New Pt Level 5 (28127) Diagnoses Multiple subsegmental pulmonary emboli without acute cor pulmonale I26.94 Pulmonary embolism type: multiple subsegmental (without acute cor pulmonale) Acute deep vein thrombosis (DVT) of left lower extremity, unspecified vein I82.402 Affected thrombotic vein of extremity: unspecified vein of extremity Chronicity: acute DVT location: lower extremity Laterality: left Pulmonary hypertension I27.20 Pneumonitis J98.4 History of bilateral mastectomy Z90.13 Time Spent (min) 60
[2023-04-22 11:26] VITALS: PULSE 84; O2SAT 98; BMI 34.2
== END 2023-04-22 11:57 | disposition home or self-care (01) ==
PROVIDERS: PCP Physician Assistant; Visit Provider Hospitalist
DX: I26.94 Multiple subsegmental thrombotic pulmonary emboli without acute cor pulmonale (principal); I82.402 Acute embolism and thrombosis of unspecified deep veins of left lower extremity; I27.20 Pulmonary hypertension, unspecified; J98.4 Other disorders of lung; Z90.13 Acquired absence of bilateral breasts and nipples
CPT/HCPCS: 99205

== ENCOUNTER 2023-04-22 11:21 | Outpatient (REF) | payer OTHER, SELFPAY ==
[2023-04-22 12:32] LABS: MANUAL DIFF FLAG NO
[2023-04-22 12:47] LABS: Basophils Absolute Auto 0.1 X10*3/uL (0.0-0.2); Basophils Percent Auto 0.6 % (0-2); Eosinophils Absolute Auto 0.2 X10*3/uL (0.0-0.4); Eosinophils Percent Auto 2.1 % (0-4); Hematocrit 38.1 % (37.0-47.0); Hemoglobin 11.9 g/dl (12.0-16.0); Imm Gran Abs Auto 0.02 X10*3/uL (0.00-0.03); Imm Gran Pct Auto 0.2 % (0.0-0.4); Lymphocytes Absolute Auto 2.6 X10*3/uL (1.2-4.9); Lymphocytes Percent Auto 28.2 % (20-40); Mean Corpuscular HGB Conc 31.2 g/dl (31.0-35.0); Mean Corpuscular Hemoglobin 28.5 pg (27.0-33.0); Mean Corpuscular Volume 91.4 fL (80.0-98.0); Mean Platelet Volume 10.3 fL (9.4-12.3); Monocytes Absolute Auto 0.6 X10*3/uL (0.1-1.2); Monocytes Percent Auto 6.7 % (2-11); Neutrophils Absolute Auto 5.7 x10*3/uL (2.0-8.3); Neutrophils Percent Auto 62.2 % (45-73); Platelet Count 379 X10*3/uL (160-400); Red Blood Count 4.17 X10*6/uL (4.20-5.50); Red Cell Distribution Width 15.1 % (11.0-16.0); White Blood Count 9.1 X10*3/uL (4.8-10.8)
[2023-04-22 13:20] LABS: Anion Gap 13 (12-20); Blood Urea Nitrogen 26 mg/dL (9-16); Calcium 9.1 mg/dL (8.4-10.2); Carbon Dioxide 22 mmol/L (22-29); Chloride 111 mmol/L (96-108); Estimated Glomerular Filt Rate 44; Glucose Random 124 mg/dL (60-115); Potassium 4.4 mmol/L (3.3-5.1); Sodium 142 mmol/L (135-145)
[2023-04-22 13:52] LABS: Erythrocyte Sedimentation Rate 28 MM/HR (0-20)
[2023-04-23 21:18] LABS: Myeloperoxidase Antibody <1.0 AI; Proteinase 3 PR3 Antibodies <1.0 AI
[2023-04-24 09:18] LABS: Cyclic Citrullinated Peptide <16 UNITS
[2023-04-25 11:04] LABS: Anti Nuclear Antibody Screen POSITIVE (NEGATIVE)
== END 2023-04-22 11:22 | disposition home or self-care (01) ==
LOC: HO.LAB 11:21
PROVIDERS: PCP Physician Assistant; Visit Provider Hospitalist
DX: J98.4 Other disorders of lung (principal); I26.94 Multiple subsegmental thrombotic pulmonary emboli without acute cor pulmonale; I82.402 Acute embolism and thrombosis of unspecified deep veins of left lower extremity; I27.20 Pulmonary hypertension, unspecified; Z90.13 Acquired absence of bilateral breasts and nipples
CPT/HCPCS: 36415; 80048; 85025; 85652; 86021; 86038; 86039; 86200; 99202

== ENCOUNTER 2023-04-24 14:48 | Outpatient (REF) | payer OTHER, SELFPAY ==
--- NOTE | ~2023-04-24 | US_ITS ---
EXAMINATION: US VENOUS ULTRASOUND WITH DOPPLER LOWER EXTREMITY, LEFT CLINICAL INFORMATION: History of DVT COMPARISON: 12/24/2022 TECHNIQUE: Ultrasound of the deep veins is performed from the hip to the calf with compression sonography and color and pulse Doppler assessment. Spectral analysis with color-flow imaging is performed. FINDINGS: At the time of the prior study, extensive DVT was noted throughout the entire deep venous system of the left lower extremity. On today's exam, there is improvement but DVT remains present in the left proximal femoral vein extending down to the popliteal vein. On the current study the left common femoral vein, great saphenous vein profunda femoris vein, posterior tibial vein and peroneal veins are patent. US/US venous duplex LE LT IMPRESSION: Improvement in the extensive DVT in the left lower extremity since the prior study. There is residual DVT in the proximal femoral vein extending down to the popliteal vein.
== END 2023-04-24 14:49 | disposition home or self-care (01) ==
LOC: HO.US 14:48
PROVIDERS: Visit Provider Hospitalist
DX: I82.402 Acute embolism and thrombosis of unspecified deep veins of left lower extremity (principal); I26.99 Other pulmonary embolism without acute cor pulmonale
CPT/HCPCS: 93971

== ENCOUNTER 2023-04-25 14:25 | Outpatient (AMB) | payer OTHER, SELFPAY ==
[2023-04-25 14:54] VITALS: BP 114/62; PULSE 66; BMI 37.5
--- NOTE | 2023-04-25 14:54 | MHC.OFFVIS ---
Intake Vital Signs 04/25/23 14:54 Height 5 ft Weight 191 lb 12.835 oz BMI 37.5 BP 114/62 Blood Pressure Location Lt brachial Position Sitting Pulse 66 Pulse Source Pulse Oximeter Intake Visit Reasons: Follow up Blood clot heart and left leg Infection Prevention Practitioner Required: No Concrete Rod Buster: Concrete Rod Buster Present Accompanied by: Daughter Allergies No Known Allergies [No Known Allergies*] Allergy (Verified 04/25/23 14:58) Medication List - Last Reconciled 04/25/23 by MATILDE Kim acetaminophen 325 mg PO Q6H PRN 30 days albuterol sulfate 90 mcg/actuation 1 puff PO QID PRN albuterol sulfate 2.5 mg (3 mL) inhalation Q6H PRN amitriptyline mg PO amlodipine 10 mg PO DAILY apixaban (Eliquis) 5 mg PO BID atorvastatin 20 mg PO BEDTIME benzonatate 200 mg (2 x 100 mg) PO TID blood sugar diagnostic (FreeStyle Lite Strips) As directed blood-glucose meter (FreeStyle Lite Meter kit) As directed cholecalciferol (vitamin D3) (Vitamin D3) 50 mcg PO DAILY citalopram 1 tab PO DAILY cyclobenzaprine 10 mg (2 x 5 mg) PO TID PRN diaper,brief,adult,disposable (Briefs, Adult-Extra Large) As directed dicyclomine 20 mg (2 x 10 mg) PO QID 30 days fluticasone furoate-vilanterol 200-25 mcg/dose (Breo Ellipta) 1 inh inhalation DAILY 30 days furosemide (Lasix) 20 mg PO DAILY PRN gabapentin 800 mg PO TID 90 days incontinence pad, liner, disp As directed lancets (FreeStyle Lancets) As directed letrozole 2.5 mg PO DAILY memantine 28 mg PO DAILY 30 days metoprolol tartrate 50 mg PO BID mirtazapine (Remeron) 15 mg PO BEDTIME 30 days miscellaneous medical supply (Blood Pressure Cuff) As directed nebulizers As directed nitrofurantoin monohyd/m-cryst 100 mg (Macrobid) 100 mg PO Q12H 5 days omeprazole 20 mg PO DAILY 90 days oxycodone 10 mg PO Q8H 28 days trazodone 200 mg (2 x 100 mg) PO BEDTIME 90 days HPI Follow up Blood clot heart and left leg HPI Details Beatriz is a 73-year-old female with past medical history of hypertension, diabetes, morbid obesity who was [place] [facility]ness of breath and leg edema and found to have left leg DVT and bilateral pulmonary embolism, she ruled in for secondary NSTEMI and was managed medically. Echocardiogram did not show RV strain. Today she reports that she continues to have some mild shortness of breath with activity. She denies PND, orthopnea. She does have mild edema in her left lower leg where DVT had been present. No chest discomfort at rest or with activity. No heart palpitations, presyncope, syncope, falls. Ambulates with a cane. Taking meds as directed. No bleeding issues reported with Eliquis use. Daughter is present. 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 Depression Arthritis IBS (irritable bowel syndrome) GERD (gastroesophageal reflux disease) Diabetes 1.5, managed as type 2 HTN (hypertension) Traumatic complete tear of right rotator cuff Surgical History S/P bilateral mastectomy History of bilateral mastectomy (02/19/22) Hx of cholecystectomy Hx of appendectomy Hx of blepharoplasty History of esophagogastroduodenoscopy (EGD) History of lumpectomy of both breasts History of surgery History of colonoscopy S/P ANDRÉS-BSO (total abdominal hysterectomy and bilateral salpingo-oophorectomy) History of lumbar fusion Family History Father Heart problem Mother Heart disease Hypertension Colon cancer Epilepsy Maternal Grandmother Esophageal cancer Daughter Breast cancer Brother Lung cancer Sister Breast cancer Sister Breast cancer, Onset Age: 60 Sister COVID Daughter Acute kidney failure Social History Household Members: None Housing: House Are you a primary direct support professional caregiver to a significant other at home: No Do you presently have visiting nurse or other home services: No (granddaughter Sharla helps take care of her) Alcohol intake: never Patient Tobacco Use Status: Never used Tobacco e-Cigarette/Vaping Use: Never Used Second Hand Smoke Exposure: No Advance Directives Date on File: 09/26/21 service: No Current occupational status: disabled 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) Hearing needs: No Vision needs: Yes Female Reproductive History Menstrual Age of Menarche: 9 Review of Systems Const All systems reviewed & are unremarkable except as noted in HPI and below ENT Denies dizziness Card Denies chest pain, Denies chest pain at rest, Denies chest pain with activity, Denies rapid heart rate, Denies pedal edema, Denies edema, Denies leg edema, Denies lightheadedness, Denies palpitations, Reports dyspnea, Denies dyspnea on exertion and Denies orthopnea Resp Denies cough, Reports dyspnea and Denies dyspnea on exertion GI Denies hematochezia and Denies change in stool character Musc Denies abnormal gait, Denies limited range of motion, Denies muscle cramps, Denies muscle weakness, Denies numbness, Denies radiating pain into limb, Denies stiffness and Denies tingling Neuro Denies abnormal gait, Denies dizziness, Denies numbness and Denies tingling Endo Denies palpitations Physical Exam Vital Signs: Last Vital Signs Pulse 66 04/25/23 14:54 BP 114/62 04/25/23 14:54 BMI result Body Mass Index 37.5 Const General: cooperative, comfortable and no acute distress Orientation/consciousness: patient oriented x3 Neck Neck: Yes normal visual inspection and Yes no JVD Resp Effort & Inspection: normal respiratory effort Auscultation: clear to auscultation bilaterally, no crackles, no rales, no rhonchi and no wheezes Cardio Jugular venous distension: no JVD Rate: regular rate Rhythm: regular rhythm Heart sounds: S1 normal heart sound present, S2 normal heart sound present, no murmurs and no rubs Neuro General: patient oriented x3 Extrem Other: Bilateral leg swelling to the mid calf, left greater than right Psych Appearance: grossly normal Mental Status: mental status grossly normal Speech and movement: Normal speech and movement present Assessment & Plan Assessment & Plan (1) Pulmonary emboli: Code(s): I26.99 - Other pulmonary embolism without acute cor pulmonale Qualifiers: Pulmonary embolism type: multiple subsegmental (without acute cor pulmonale) Qualified Code(s): I26.94 - Multiple subsegmental pulmonary emboli without acute cor pulmonale Plan: New finding of pulmonary embolism on CTA done November 2022. She also had lower extremity duplex showing extensive DVT on the left lower extremity. She was started on anticoagulation and discharged with Lovenox which was then changed to Eliquis 5 mg b.i.d. she has not had any bleeding issues. Her troponins were elevated and she ruled in for secondary NSTEMI. An echocardiogram that was done while inpatient showed normal EF, can not exclude apical inferior hypokinesis, RV normal size, mild decrease in the RV systolic function. Today she reports ongoing feeling of shortness of breath with activity. She does mild left lower leg edema which has improved overall. She denies any chest discomfort at rest or with activity. Will order a pharmacological nuclear stress test to evaluate for ischemia. She will not be able to exercise on a treadmill as she ambulates with a cane. She is not on aspirin as she is on Eliquis. She is on atorvastatin and metoprolol. Eliquis is for DVT, managed by her PCP. Plan to call her with stress test results. If normal then cardiology follow-up will be in 6 months. If abnormal then further treatment plan to be determined. (2) DVT (deep venous thrombosis): Code(s): I82.409 - Acute embolism and thrombosis of unspecified deep veins of unspecified lower extremity Qualifiers: Affected thrombotic vein of extremity: unspecified vein of extremity Chronicity: acute DVT location: lower extremity Laterality: left Qualified Code(s): I82.402 - Acute embolism and thrombosis of unspecified deep veins of left lower extremity Plan: As above (3) NSTEMI (non-ST elevation myocardial infarction): Code(s): I21.4 - Non-ST elevation (NSTEMI) myocardial infarction Plan: Troponin elevated during recent hospital admission for pulmonary embolism/DVT. Troponin as high as 859. No EKG changes of ischemia. No reports of chest discomfort. Echo did show normal EF can not exclude apical inferior hypokinesis, possible technical finding. She was felt to have secondary NSTEMI related to pulmonary embolism. At this time she still has no reports of chest discomfort. She continues to have some shortness of breath. No known history of CAD. Cardiac risk factors of hypertension, diabetes, morbid obesity. Hold off on ischemic evaluation at time of last visit. At this time her condition overall has improved. Will plan for pharmacological nuclear stress test as above. Orders: Orders NM cardiolite stress test 04/25/23 I21.4 - Non-ST elevation (NSTEMI) myocardial infarction CA lexiscan stress w ashlee 04/25/23 I21.4 - Non-ST elevation (NSTEMI) myocardial infarction Coding Level of Care Code Est Pt Level 4 (01972) Diagnoses Multiple subsegmental pulmonary emboli without acute cor pulmonale I26.94 Pulmonary embolism type: multiple subsegmental (without acute cor pulmonale) Acute deep vein thrombosis (DVT) of left lower extremity, unspecified vein I82.402 Affected thrombotic vein of extremity: unspecified vein of extremity Chronicity: acute DVT location: lower extremity Laterality: left NSTEMI (non-ST elevation myocardial infarction) I21.4 Time Spent (min) 28
== END 2023-04-25 15:32 | disposition home or self-care (01) ==
PROVIDERS: PCP Physician Assistant; Visit Provider Nurse Practitioner Family
DX: I26.94 Multiple subsegmental thrombotic pulmonary emboli without acute cor pulmonale (principal); I82.402 Acute embolism and thrombosis of unspecified deep veins of left lower extremity; I21.4 Non-ST elevation (NSTEMI) myocardial infarction
CPT/HCPCS: 99214

== ENCOUNTER → 2023-04-25 14:25 | Outpatient (BNVA) | payer OTHER, SELFPAY | PROVIDERS: PCP Physician Assistant; Visit Provider Nurse Practitioner Family | DX: I26.94 Multiple subsegmental thrombotic pulmonary emboli without acute cor pulmonale (principal); I82.402 Acute embolism and thrombosis of unspecified deep veins of left lower extremity; I21.4 Non-ST elevation (NSTEMI) myocardial infarction | CPT/HCPCS: 99212 ==

== ENCOUNTER 2023-04-26 10:43 | Outpatient (AMB) | payer OTHER, SELFPAY ==
--- NOTE | 2023-04-26 10:56 | MHC.OFFVIS ---
Intake Vital Signs 04/26/23 11:03 Height 4 ft 9 in Weight 191 lb 12.835 oz BMI 41.5 BP not taken reason Medical Reason Respiration 18 Intake Visit Reasons: Follow up Breast cancer Intake Note: Patient is seen in office for follow up visit, breast exam. Pt c/o: arms are stitch, feels lumps all around the chest, dark spot, left side is swollen, unable to fully lift arms, swelling, recently fell out of bed and arms are swollen Field Marketing Lead Required: No Accompanied by: Daughter Allergies No Known Allergies [No Known Allergies*] Allergy (Verified 04/26/23 11:03) Medication List - Last Reconciled 04/26/23 by Renard Malik MD acetaminophen 325 mg PO Q6H PRN 30 days albuterol sulfate 90 mcg/actuation 1 puff PO QID PRN albuterol sulfate 2.5 mg (3 mL) inhalation Q6H PRN amitriptyline mg PO amlodipine 10 mg PO DAILY apixaban (Eliquis) 5 mg PO BID atorvastatin 20 mg PO BEDTIME benzonatate 200 mg (2 x 100 mg) PO TID blood sugar diagnostic (FreeStyle Lite Strips) As directed blood-glucose meter (FreeStyle Lite Meter kit) As directed cholecalciferol (vitamin D3) (Vitamin D3) 50 mcg PO DAILY citalopram 1 tab PO DAILY cyclobenzaprine 10 mg (2 x 5 mg) PO TID PRN diaper,brief,adult,disposable (Briefs, Adult-Extra Large) As directed dicyclomine 20 mg (2 x 10 mg) PO QID 30 days fluticasone furoate-vilanterol 200-25 mcg/dose (Breo Ellipta) 1 inh inhalation DAILY 30 days furosemide (Lasix) 20 mg PO DAILY PRN gabapentin 800 mg PO TID 90 days incontinence pad, liner, disp As directed lancets (FreeStyle Lancets) As directed letrozole 2.5 mg PO DAILY memantine 28 mg PO DAILY 30 days metoprolol tartrate 50 mg PO BID mirtazapine (Remeron) 15 mg PO BEDTIME 30 days miscellaneous medical supply (Blood Pressure Cuff) As directed nebulizers As directed nitrofurantoin monohyd/m-cryst 100 mg (Macrobid) 100 mg PO Q12H 5 days omeprazole 20 mg PO DAILY 90 days oxycodone 10 mg PO Q8H 28 days trazodone 200 mg (2 x 100 mg) PO BEDTIME 90 days HPI HPI Comments History of Present Illness Details 73-year-old female patient returning following bilateral mastectomies for a recurrent right breast cancer. 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 Quezada. She noted bilateral palpable lumps on self examination including the 9 o'clock position of the right breast just lateral to the nipple-areolar complex. The lump is tender to palpation. Second area in the upper outer quadrant of the left breast was also identified on self examination. The lesion of the right breast was confirmed on mammogram dated 01/26/2022. Subsequent ultrasound revealed a suspicious density in the right breast in the 9 o'clock position measuring just under 1.5 cm in diameter. Findings were felt to be suspicious for malignancy and biopsy recommended. Ultrasound-guided core biopsy performed on 01/31/2022 at the [facility] revealed invasive carcinoma with mixed lobular and ductal features, grade 2, ER/NJ positive, HER2 Smooth negative, Ki-67 30% (high proliferation index). She denies nipple discharge, skin redness, skin dimpling or enlarged lymph nodes. Menarche was at the age of 9. She is and underwent TAHBSO in the 80s. Family history is significant for a daughter, and 2 sisters with breast cancer. At the patient's request she underwent a right modified radical mastectomy and left simple mastectomy. Pathology revealed: A.? Breast, right, modified radical mastectomy: - Invasive carcinoma with ductal and lobular features, MSBR grade 3, 1.4 cm in size; margins negative. - Metastatic carcinoma present in 1 of 4 lymph nodes examined. - Skin with scar; biopsy site changes. - pT1c N1 (AJCC Stage 8th ed.). B.? Breast, left, simple mastectomy: - Lobular carcinoma in-situ; negative for invasive carcinoma. - Background fibrocystic changes, adenosis and calcifications. - Benign skin and nipple. - Three lymph nodes with reactive changes. She returns today for a follow-up examination. she reports following approximately 3 weeks ago while standing on several steps, landing on her right arm and chest. She now has pain in the right arm and chest with some bruising. She is interested in having breast reconstruction following her bilateral mastectomy. She also notes a black lesion located below the incision on the right side. 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 Depression Arthritis IBS (irritable bowel syndrome) GERD (gastroesophageal reflux disease) Diabetes 1.5, managed as type 2 HTN (hypertension) Traumatic complete tear of right rotator cuff Surgical History S/P bilateral mastectomy History of bilateral mastectomy (02/19/22) Hx of cholecystectomy Hx of appendectomy Hx of blepharoplasty History of esophagogastroduodenoscopy (EGD) History of lumpectomy of both breasts History of surgery History of colonoscopy S/P ANDRÉS-BSO (total abdominal hysterectomy and bilateral salpingo-oophorectomy) History of lumbar fusion Family History Father Heart problem Mother Heart disease Hypertension Colon cancer Epilepsy Maternal Grandmother Esophageal cancer Daughter Breast cancer Brother Lung cancer Sister Breast cancer Sister Breast cancer, Onset Age: 60 Sister COVID Daughter Acute kidney failure Social History Household Members: None Housing: House Are you a primary customer care consultant to a significant other at home: No Do you presently have visiting nurse or other home services: No (granddaughter Sharla helps take care of her) Alcohol intake: never Patient Tobacco Use Status: Never used Tobacco e-Cigarette/Vaping Use: Never Used Second Hand Smoke Exposure: No Advance Directives Date on File: 09/26/21 service: No Current occupational status: disabled 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) Hearing needs: No Vision needs: Yes Female Reproductive History Menstrual Age of Menarche: 9 Review of Systems Const All systems reviewed & are unremarkable except as noted in HPI and below Denies chills, Denies fever(s), Denies headache(s), Denies poor appetite and Denies weakness ENT Denies headache(s) Card Denies chest pain, Denies irregular heart rhythm, Denies palpitations and Denies dyspnea Resp Denies cough, Denies excessive phlegm production and Denies dyspnea GI Denies abdominal pain, Denies bloating, Denies change in bowel habits, Denies constipation, Denies heartburn, Denies diarrhea, Denies nausea and Denies vomiting Denies urinary frequency Musc Denies back pain, Denies muscle weakness and Denies numbness Skin/Breast Reports change in pigmentation Neuro Denies headache(s), Denies numbness, Denies paresthesias and Denies weakness Psych Denies anxiety and Denies depression Endo Denies palpitations Neo/Lymph Denies lymphadenopathy Physical Exam Vital Signs: Last Vital Signs Resp 18 04/26/23 11:03 BMI result Body Mass Index 41.5 Const General: no acute distress and well developed Nutritional Appearance: well nourished Orientation/consciousness: patient oriented x3 Limitations: no limitations HEENT Head: Yes normocephalic and Yes atraumatic Chest Other: Mastectomy incisions or softer. There is redundant skin in the axilla and anterior chest. No erythema is identified. No palpable seroma. No evidence of recurrent disease. In the right chest medial portion just below the incision is noted a melanotic lesion new from prior examination. Lesion measures approximately 6 mm in diameter. Chest/axillae images: 1. right mastectomy incision 2. left mastectomy incision 3. Melanotic lesion right chest Resp Effort & Inspection: normal respiratory effort Neuro General: patient oriented x3 Extrem Other: Right arm with ecchymosis but no skin tear or necrosis. No evidence of underlying hematoma. Assessment & Plan Assessment & Plan (1) Recurrent malignant neoplasm of right breast: Code(s): C50.911 - Malignant neoplasm of unspecified site of right female breast (2) Lobular carcinoma in situ: Code(s): D05.00 - Lobular carcinoma in situ of unspecified breast Qualifiers: Laterality: unspecified laterality Qualified Code(s): D05.00 - Lobular carcinoma in situ of unspecified breast (3) History of bilateral mastectomy: Onset Date: 02/19/22 Comment: right breast modified radical mastectomy, prophylactic left simple mastectomy- Renard Malik MD Code(s): Z90.13 - Acquired absence of bilateral breasts and nipples Plan 73-year-old female patient presenting for follow-up breast examination after bilateral mastectomy. There is no evidence of recurrent disease in either breast. Patient did fall on to her right arm with resulting ecchymosis noted. No injuries noted to the chest wounds. There is however on the right breast a melanotic lesion which may be a skin cancer and warrants excision. After discussion of the procedure, risks, and alternatives, she consents to the procedure. In addition the patient is requesting plastic surgery referral for reconstruction. Orders: Referrals Plastic Surgery Referral C50.911 - Malignant neoplasm of unspecified site of right female breast, D05.00 - Lobular carcinoma in situ of unspecified breast, Z90.13 - Acquired absence of bilateral breasts and nipples Coding Level of Care Code Est Pt Level 3 (97997) Diagnoses Recurrent malignant neoplasm of right breast C50.911 Lobular carcinoma in situ (LCIS) of breast, unspecified laterality D05.00 Laterality: unspecified laterality History of bilateral mastectomy Z90.13
[2023-04-26 11:03] VITALS: RESP 18; BMI 41.5
== END 2023-04-26 11:34 | disposition home or self-care (01) ==
PROVIDERS: PCP Physician Assistant; Visit Provider Surgery
DX: C50.911 Malignant neoplasm of unspecified site of right female breast (principal); Z90.13 Acquired absence of bilateral breasts and nipples
CPT/HCPCS: 99213

== ENCOUNTER → 2023-04-26 10:43 | Outpatient (BNVA) | payer OTHER, SELFPAY | PROVIDERS: PCP Physician Assistant; Visit Provider Surgery | DX: C50.811 Malignant neoplasm of overlapping sites of right female breast (principal); Z17.0 Estrogen receptor positive status [ER+]; Z80.3 Family history of malignant neoplasm of breast; Z90.13 Acquired absence of bilateral breasts and nipples | CPT/HCPCS: 99212 ==

== ENCOUNTER 2023-05-02 11:41 | Outpatient (REF) | payer OTHER, SELFPAY | END 2023-05-02 11:42 | disposition home or self-care (01) | LOC: HO.CT 11:41 | PROVIDERS: PCP Physician Assistant; Visit Provider Hospitalist | DX: Z13.89 Encounter for screening for other disorder (principal) ==

== ENCOUNTER 2023-05-29 10:53 | Outpatient (AMB) | payer OTHER, SELFPAY ==
--- NOTE | 2023-05-29 11:07 | MHC.OFFVIS ---
Intake Vital Signs 05/29/23 11:08 Height 4 ft 9 in Weight 191 lb BMI 41.3 BP 128/82 Blood Pressure Location Rt brachial Position Sitting Pulse 74 Pulse Source Pulse Oximeter Pulse Oximetry (%) 99 Oxygen Delivery Method Room Air Intake Visit Reasons: 3 mnts f/u appt - LVM Intake Note: Patient presents for 3 month follow up. She missed her sleep study because I had a lot of issues happening for myself and wasnt able to take her to the appointment(Daughter) Allergies No Known Allergies [No Known Allergies*] Allergy (Verified 05/29/23 11:12) Medication List - Last Reconciled 05/29/23 by RINKU Velasquez acetaminophen 325 mg PO Q6H PRN 30 days albuterol sulfate 90 mcg/actuation 1 puff PO QID PRN albuterol sulfate 2.5 mg (3 mL) inhalation Q6H PRN amitriptyline mg PO amlodipine 10 mg PO DAILY apixaban (Eliquis) 5 mg PO BID atorvastatin 20 mg PO BEDTIME benzonatate 200 mg (2 x 100 mg) PO TID blood sugar diagnostic (FreeStyle Lite Strips) As directed blood-glucose meter (FreeStyle Lite Meter kit) As directed cholecalciferol (vitamin D3) (Vitamin D3) 50 mcg PO DAILY cholecalciferol (vitamin D3) (Vitamin D3) 50 mcg PO DAILY citalopram 1 tab PO DAILY cyclobenzaprine 10 mg (2 x 5 mg) PO TID PRN diaper,brief,adult,disposable (Briefs, Adult-Extra Large) As directed dicyclomine 20 mg (2 x 10 mg) PO QID 30 days fluticasone furoate-vilanterol 200-25 mcg/dose (Breo Ellipta) 1 inh inhalation DAILY 30 days furosemide (Lasix) 20 mg PO DAILY PRN gabapentin 800 mg PO TID 90 days incontinence pad, liner, disp As directed lancets (FreeStyle Lancets) As directed letrozole 2.5 mg PO DAILY memantine 28 mg PO DAILY 30 days metoprolol tartrate 50 mg PO BID mirtazapine (Remeron) 15 mg PO BEDTIME 30 days miscellaneous medical supply (Blood Pressure Cuff) As directed nebulizers As directed nitrofurantoin monohyd/m-cryst 100 mg (Macrobid) 100 mg PO Q12H 5 days omeprazole 20 mg PO DAILY 90 days oxycodone 10 mg PO Q8H 28 days trazodone 200 mg (2 x 100 mg) PO BEDTIME 90 days HPI HPI Comments History of Present Illness Details 73-yr-old female presents for f/u visit, accompanied by her dtr. Pt's dtr states that pt has not yet had her f/u in-lab PSG study, as she (her dtr) has been recently dx'd w/ a serious illness. Dtr notes that pt is more forgetful, repeating herself. For todays' appt, pt had asked her dtr if they were on time as they had not changed the clocks for the time change (time change was a few months ago). Pt herself is concerned about BLE, L > R, arm pain. It is aching pain, some shooting pain. She does endorse neck pain as well which moves into her arms. She feels her hands are weaker. She also notes increased LUE swelling. She does have a h/o bilateral mastectomy, but states she has not noticed this much swelling before. 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 Depression Arthritis IBS (irritable bowel syndrome) GERD (gastroesophageal reflux disease) Diabetes 1.5, managed as type 2 HTN (hypertension) Traumatic complete tear of right rotator cuff Surgical History (Updated 05/29/23 @ 11:51 by RINKU Velasquez) S/P bilateral mastectomy History of bilateral mastectomy (02/19/22) Hx of cholecystectomy Hx of appendectomy Hx of blepharoplasty History of esophagogastroduodenoscopy (EGD) History of lumpectomy of both breasts History of surgery History of colonoscopy S/P ANDRÉS-BSO (total abdominal hysterectomy and bilateral salpingo-oophorectomy) History of lumbar fusion Family History Father Heart problem Mother Heart disease Hypertension Colon cancer Epilepsy Maternal Grandmother Esophageal cancer Daughter Breast cancer Brother Lung cancer Sister Breast cancer Sister Breast cancer, Onset Age: 60 Sister COVID Daughter Acute kidney failure Social History Household Members: None Housing: House Are you a primary medication care manager to a significant other at home: No Do you presently have visiting nurse or other home services: No (granddaughter Sharla helps take care of her) Alcohol intake: never Patient Tobacco Use Status: Never used Tobacco e-Cigarette/Vaping Use: Never Used Second Hand Smoke Exposure: No Advance Directives Date on File: 09/26/21 service: No Current occupational status: disabled 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) Hearing needs: No Vision needs: Yes Female Reproductive History Menstrual Age of Menarche: 9 Review of Systems Const All systems reviewed & are unremarkable except as noted in HPI and below Physical Exam Vital Signs: Last Vital Signs Pulse 74 05/29/23 11:08 BP 128/82 05/29/23 11:08 Pulse Ox 99 05/29/23 11:08 Oxygen Delivery Method Room Air 05/29/23 11:08 BMI result Body Mass Index 41.3 Const General: cooperative and no acute distress HEENT Head: Yes normocephalic Resp Effort & Inspection: normal respiratory effort and able to speak in complete sentences Neuro Other: Bilateral posterior cervical tightness. Hill Hand grasps- 5-/5 General: CN's II-XI intact bilaterally Deep tendon reflexes (DTR's): Right triceps reflex intensity grade: 2+, Left triceps reflex intensity grade: 2+, Rt Biceps (C5, C6): 2+, Left biceps reflex intensity grade: 2+, Right brachioradialis reflex intensity grade: 2+, Left brachioradialis reflex intensity grade: 2+, Right patellar reflex intensity grade: 2+ and Left patellar reflex intensity grade: 2+ Extrem Other: LUE [id number] arm- non-pitting swelling. BUE- CMS + BUE 1+ radial pulses. Psych Appearance: grossly normal Speech and movement: Normal speech and movement present Affect: normal affect Attitude: cooperative Thought process: Normal thought process present Assessment & Plan Assessment & Plan (1) Left arm swelling: Code(s): M79.89 - Other specified soft tissue disorders (2) Neuropathic pain: Code(s): M79.2 - Neuralgia and neuritis, unspecified (3) Cervicalgia: Code(s): M54.2 - Cervicalgia (4) Left upper arm pain: Code(s): M79.622 - Pain in left upper arm (5) Mild obstructive sleep apnea: Code(s): G47.33 - Obstructive sleep apnea (adult) (pediatric) (6) Nocturnal hypoxemia: Code(s): G47.34 - Idiopathic sleep related nonobstructive alveolar hypoventilation Plan For increased/new LUE swelling BUE L > R pain- will check labs, LUE US (pt is on Eliquis however does have hx DVT and PE), XR c-spine. Continue strategies to minimize CV risk factors- continue statin, amlodipine, metoprolol, Eliquis- pt is followed closely by cardiology. As pt has not been able to undergo in-lab PAP titration study, we will send order for APAP to local home resp company, which pt and dtr agree to. Once on APAP, will check nocturnal pulse oximtry reading x's 1. [facility] for neuropsych eval appt as ordered. Continue memantine Er 28ng qd. Wear her life alert at all times, previously advised to add door alarms to both front and back doors. Continue decreased Amitriptyline 10mg qhs. ? f/u in 3-4 months or sooner prn. Orders: Orders Complete Blood Count Auto Diff 05/30/23 I10 - Essential (primary) hypertension, M79.2 - Neuralgia and neuritis, unspecified, M79.89 - Other specified soft tissue disorders, R20.2 - Paresthesia of skin Erythrocyte Sedimentation Rate 05/30/23 I10 - Essential (primary) hypertension, M79.2 - Neuralgia and neuritis, unspecified, M79.89 - Other specified soft tissue disorders, R20.2 - Paresthesia of skin CRP High Sensitivity 05/30/23 I10 - Essential (primary) hypertension, M79.2 - Neuralgia and neuritis, unspecified, M79.89 - Other specified soft tissue disorders, R20.2 - Paresthesia of skin XR cervical spine 4V 05/29/23 M54.2 - Cervicalgia D Dimer High Sensitivity 05/30/23 I10 - Essential (primary) hypertension, M79.2 - Neuralgia and neuritis, unspecified, M79.89 - Other specified soft tissue disorders, R20.2 - Paresthesia of skin Comprehensive Met. Panel 05/30/23 I10 - Essential (primary) hypertension, M79.2 - Neuralgia and neuritis, unspecified, M79.89 - Other specified soft tissue disorders, R20.2 - Paresthesia of skin Vitamin B12 and Folate 05/30/23 I10 - Essential (primary) hypertension, M79.2 - Neuralgia and neuritis, unspecified, M79.89 - Other specified soft tissue disorders, R20.2 - Paresthesia of skin TSH reflex Free T4 05/30/23 I10 - Essential (primary) hypertension, M79.2 - Neuralgia and neuritis, unspecified, M79.89 - Other specified soft tissue disorders, R20.2 - Paresthesia of skin US venous duplex UE LT 05/29/23 M79.622 - Pain in left upper arm, M79.89 - Other specified soft tissue disorders, Z90.13 - Acquired absence of bilateral breasts and nipples Coding Level of Care Code Est Pt Level 4 (34996) Diagnoses Left arm swelling M79.89 Neuropathic pain M79.2 Cervicalgia M54.2 Left upper arm pain M79.622 Mild obstructive sleep apnea G47.33 Nocturnal hypoxemia G47.34
[2023-05-29 11:08] VITALS: BP 128/82; PULSE 74; O2SAT 99; BMI 41.3
== END 2023-05-29 11:56 | disposition home or self-care (01) ==
PROVIDERS: PCP Physician Assistant; Visit Provider Nurse Practitioner Family
DX: M79.89 Other specified soft tissue disorders (principal); M79.2 Neuralgia and neuritis, unspecified; M54.2 Cervicalgia; M79.622 Pain in left upper arm; G47.33 Obstructive sleep apnea (adult) (pediatric); G47.34 Idiopathic sleep related nonobstructive alveolar hypoventilation
CPT/HCPCS: 99214

== ENCOUNTER → 2023-05-29 10:55 | Outpatient (BNVA) | payer OTHER, SELFPAY | PROVIDERS: PCP Physician Assistant; Visit Provider Nurse Practitioner Family | DX: M79.89 Other specified soft tissue disorders (principal); M79.2 Neuralgia and neuritis, unspecified; M54.2 Cervicalgia; M79.622 Pain in left upper arm; G47.33 Obstructive sleep apnea (adult) (pediatric); G47.34 Idiopathic sleep related nonobstructive alveolar hypoventilation | CPT/HCPCS: 99212 ==

== ENCOUNTER 2023-05-30 08:54 | Outpatient (REF) | payer OTHER, SELFPAY ==
[2023-05-30 10:19] VITALS: BMI 35.3
[2023-05-30 10:26] VITALS: BP 177/82; PULSE 108; RESP 16; TEMP 36.8; O2SAT 100
[2023-05-30 11:54] VITALS: BP 187/87; PULSE 75; RESP 16; O2SAT 97
--- NOTE | 2023-06-04 09:46 | P.OP_ITS ---
Operative Note Operative Note Date of Service: 05/30/23 Narrative: Preoperative diagnosis: Skin change right mastectomy scar, melanotic lesion Postoperative diagnosis: Same Procedure: Skin biopsy right mastectomy scar melanotic lesion Surgeon: Renard Malik MD Mobile Home Set Up Person: None Anesthesia: Local lidocaine 1% with epinephrine Indications for procedure: 73-year-old female patient with history of bilateral breast cancer status post bilateral mastectomy and previous right breast cancer requiring radiation therapy now with a black skin change in the incision suggestive of a melanotic lesion. Operative findings: Melanotic lesion measuring approximately 3 mm in diameter n ew from previous examination Specimen: Right skin biopsy mastectomy scar Estimated blood loss: Less than 2 mL Complications:None Procedure details: Patient was brought to the minor surgery suite placed in a supine position. The site of surgery was confirmed by the patient. After assuring informed consent, the patient's right chest was prepped with Betadine and draped in a sterile fashion. Local anesthesia was then infiltrated around the melanotic lesion located in the central portion of the mastectomy incision. An elliptical incision was then created with scalpel and carried out through subcutaneous tissue, around the skin lesion. Hemostasis was assured with light pressure. Dermis was then reapproximated using interrupted 3-0 Polysorb sutures. Skin was closed using 4-0 nylon sutures. Sterile dressing consisting of 2 x 2 gauze and Tegaderm were then applied. The patient tolerated the procedure well. Was discharged to home in stable condition.
== END 2023-05-30 08:55 | disposition home or self-care (01) ==
LOC: HO.MS 08:54
PROVIDERS: PCP Physician Assistant; Visit Provider Surgery
PROC: (CPT 11600; principal; 2023-05-30 11:00)
DX: C50.811 Malignant neoplasm of overlapping sites of right female breast (principal)
CPT/HCPCS: 11600; 88304; 88305; 88341; 88342; J0665

== ENCOUNTER → 2023-05-30 08:54 | Outpatient (BNV) | payer OTHER, SELFPAY | PROVIDERS: PCP Physician Assistant; Visit Provider Surgery | DX: D22.5 Melanocytic nevi of trunk (principal) | CPT/HCPCS: 11106 ==

== ENCOUNTER 2023-05-30 11:57 | Outpatient (REF) | payer OTHER, SELFPAY ==
[2023-05-30 13:38] LABS: Alanine Aminotransferase 16 U/L (0-31); Albumin Level 4.3 g/dL (3.5-5.0); Alkaline Phosphatase 85 U/L (39-117); Anion Gap 15 (12-20); Aspartate Amino Transferase 21 U/L (5-31); Bilirubin Total 0.3 mg/dL (0.0-1.0); Blood Urea Nitrogen 19 mg/dL (9-16); Calcium 9.9 mg/dL (8.4-10.2); Carbon Dioxide 24 mmol/L (22-29); Chloride 105 mmol/L (96-108); Estimated Glomerular Filt Rate 45; Glucose Random 138 mg/dL (60-115); Potassium 3.8 mmol/L (3.3-5.1); Sodium 140 mmol/L (135-145); Total Protein 7.7 g/dL (6.5-8.0)
[2023-05-30 13:54] LABS: TSH reflex Free T4 1.18 uIU/mL (0.32-4.0)
[2023-06-04 15:44] LABS: CRP High Sensitivity 3.8 mg/L
== END 2023-05-30 11:58 | disposition home or self-care (01) ==
LOC: HO.LAB 11:57
PROVIDERS: Visit Provider Nurse Practitioner Family
DX: M79.89 Other specified soft tissue disorders (principal); M79.2 Neuralgia and neuritis, unspecified; R20.2 Paresthesia of skin; I10 Essential (primary) hypertension
CPT/HCPCS: 36415; 80053; 82607; 82746; 84443; 85025; 85379; 85652; 86141

== ENCOUNTER 2023-06-06 14:32 | Outpatient (REF) | payer OTHER, SELFPAY ==
--- NOTE | ~2023-06-06 | US_ITS ---
EXAMINATION: US VENOUS WITH DOPPLER UPPER EXTREMITY, LEFT CLINICAL INFORMATION: Others specified soft tissue disorders Patient status post mastectomy. Postoperative COMPARISON: None available. TECHNIQUE: Ultrasound of the upper extremity is performed using compression sonography and color and pulse Doppler flow with assessment of augmentation of flow. There is also imaging and Doppler assessment of the jugular and subclavian veins. Spectral analysis with color-flow imaging is performed. FINDINGS: Respiratory variation and normal compression are noted throughout the upper extremity including the brachial, basilic, cephalic and radial and ulnar veins. There is normal flow in the internal jugular, subclavian and axillary veins. There is no visible deep or superficial thrombophlebitis. US/US venous duplex UE LT IMPRESSION: No DVT demonstrated in the left upper extremity
--- NOTE | ~2023-06-06 | XR_ITS ---
EXAMINATION: XR CERVICAL SPINE CLINICAL INFORMATION: Right-sided cervical pain. COMPARISON: CT cervical spine 09/13/2022, cervical spine radiographs 01/12/2019. TECHNIQUE: 6 views of the cervical spine. FINDINGS: Degenerative changes are seen in the spine most marked at C5-C6 and C6-C7. There is endplate sclerosis and some osteophyte formation. No prevertebral soft tissue swelling, fractures or subluxations seen. There appears to be foraminal narrowing at C5-C6 on the right as well as C6-C7 on the left. Foramina are not optimally seen on these exams. On the prior CT, multilevel foraminal stenoses were seen. XR/XR cervical spine 4V IMPRESSION: Degenerative changes most marked at C5-C6 and C6-C7 with foraminal narrowing as described above.
== END 2023-06-06 14:33 | disposition home or self-care (01) ==
LOC: HO.US 14:32
PROVIDERS: PCP Physician Assistant; Visit Provider Nurse Practitioner Family
DX: M79.622 Pain in left upper arm (principal); M54.2 Cervicalgia; R60.0 Localized edema
CPT/HCPCS: 72050; 93971

== ENCOUNTER 2023-06-10 14:05 | Outpatient (AMB) | payer OTHER, SELFPAY ==
[2023-06-10 14:10] VITALS: BP 142/74; PULSE 68; O2SAT 97; BMI 39.2
--- NOTE | 2023-06-10 14:10 | MHC.OFFVIS ---
Intake Vital Signs 06/10/23 14:10 Height 4 ft 11 in Weight 194 lb 0.108 oz BMI 39.2 BP 142/74 H Blood Pressure Location Rt brachial Position Sitting Pulse 68 Pulse Source Pulse Oximeter Pulse Oximetry (%) 97 Oxygen Delivery Method Room Air Intake Visit Reasons: follow up Allergies No Known Allergies [No Known Allergies*] Allergy (Verified 06/10/23 14:10) HPI HPI Comments History of Present Illness Details The patient is a 73 year woman with a known history of breast cancer status post bilateral mastectomy and apparently had been on tamoxifen. A she was in usual state health until back over the summer she started developing significant lower extremity discomfort and swelling primarily the left leg. She had an ultrasound that demonstrating a DVT the patient was sent to the hospital. She was admitted to the hospital and that she had a CTA demonstrating also significant pulmonary emboli she. The patient was placed on Eliquis. During the hospitalization the patient did have elevations in the cardiac enzymes event therefore it was prefer to she treat her conservatively. She was evaluated by vascular surgery briefly. The patient subsequently was discharged and then she presented to [facility] in December with worsening left lower extremity pain. There she had another ultrasound demonstrating persistent extensive clot of the lower extremity. Rosy while she does complaint of dyspnea on exertion. She is limited as far as rectal and gait and she does have a walker or cane. During the visit we did have her go for 6 minutes walk test the patient did not desaturate she maintain a pulse ox of 96-98% which is reassuring however heart rate was elevated in the low 100s. We did review her CTA that she had back in November personally by me laterally that she had bilateral blood clots but she also had extensive ground-glass opacities. The etiology is unclear. Will go ahead and request blood work evaluation for the pneumonitis. She she is currently on Eliquis and she is off the tamoxifen altogether. She does follow closely with Oncology. Based on the fact the continues to have symptoms will going to repeat her CTA this point and also her left lower extremity Doppler to assess the clot burden. If she continues to have clot burden primarily the left lower extremity will go ahead and refer her back to vascular surgery. If her clot burden still significant in the chest area then will have to contemplate a different anticoagulation regimen for her. 06/10/2023 the patient is here for a pulmonary follow-up visit. Overall the patient has been doing fairly well from a respiratory status. She is still getting shortness of breath with activity. [id number] severity. She does relying walker. The patient has been using the Eliquis. She did have a repeat lower extremity Doppler demonstrating improvement in the chronic clot. This is reassuring that at least his decreasing size. Therefore we do not have to send her to vascular surgery. She did attempt to have the CTA done to see if she has any chronic clot in the lungs. However, after multiple IV catheter attempts the patient was not able to get IV in place in order to get the contrast dye. Therefore we had to cancel the CT scan. I did go with the patient for brief walking oximetry in the oxygen maintain between 96-97%. Heart rate was stable. Therefore I am reassured that her pulmonary vascular issues are improved. The patient also had a biopsy of a breast lesion in appears that she has recurrent breast cancer. The patient still not aware that she is going to find out the results tomorrow with her surgeon. Therefore based on the fact that she is going to need additional interventions will go ahead and continue with conservative therapy. She should continue with the Eliquis lifelong for the significant thrombotic event. The patient also continues use her respiratory therapy with good effect. And the oxygenation is also reassuring. 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 Depression Arthritis IBS (irritable bowel syndrome) GERD (gastroesophageal reflux disease) Diabetes 1.5, managed as type 2 HTN (hypertension) Traumatic complete tear of right rotator cuff Surgical History (Updated 06/10/23 @ 21:50 by Robby Thomson MD) S/P bilateral mastectomy History of bilateral mastectomy (02/19/22) Hx of cholecystectomy Hx of appendectomy Hx of blepharoplasty History of esophagogastroduodenoscopy (EGD) History of lumpectomy of both breasts History of surgery History of colonoscopy S/P ANDRÉS-BSO (total abdominal hysterectomy and bilateral salpingo-oophorectomy) History of lumbar fusion Family History Father Heart problem Mother Heart disease Hypertension Colon cancer Epilepsy Maternal Grandmother Esophageal cancer Daughter Breast cancer Brother Lung cancer Sister Breast cancer Sister Breast cancer, Onset Age: 60 Sister COVID Daughter Acute kidney failure Social History Household Members: None Housing: House Are you a primary livestock caretaker to a significant other at home: No Do you presently have visiting nurse or other home services: No (granddaughter Sharla helps take care of her) Alcohol intake: never Patient Tobacco Use Status: Never used Tobacco e-Cigarette/Vaping Use: Never Used Second Hand Smoke Exposure: No Advance Directives Date on File: 09/26/21 service: No Current occupational status: disabled 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) Hearing needs: No Vision needs: Yes Female Reproductive History Menstrual Age of Menarche: 9 Review of Systems Const Reports fatigue and Denies fever(s) Eyes Denies change in vision ENT Denies dizziness Card Denies chest pain, Reports leg edema and Reports dyspnea on exertion Resp Denies cough, Reports dyspnea on exertion and Denies wheezing GI Denies hematochezia and Denies change in stool character Musc Reports abnormal gait and Reports myalgias Skin/Breast Denies rash Neuro Reports abnormal gait and Denies dizziness Endo Reports fatigue Neo/Lymph Denies easy bleeding, Denies easy bruising and Denies lymphadenopathy Aller/Immun Denies wheezing Physical Exam Vital Signs: Last Vital Signs Pulse 68 06/10/23 14:10 BP 142/74 H 06/10/23 14:10 Pulse Ox 97 06/10/23 14:10 Oxygen Delivery Method Room Air 06/10/23 14:10 BMI result Body Mass Index 39.2 Const General: no acute distress and alert HEENT Head: Yes atraumatic Neck Neck: Yes supple Chest Chest palpation & inspection: normal inspection of the chest Resp Effort & Inspection: normal respiratory effort Auscultation: no wheezes and diminished lung sounds Cardio Rate: regular rate Rhythm: regular rhythm Heart sounds: S1 normal heart sound present and S2 normal heart sound present GI Palpation (GI): Soft to palpation Skin General skin exam: no rashes or lesions noted Extrem General: No clubbing, No cyanosis and Yes edema Assessment & Plan Assessment & Plan (1) Pulmonary emboli: Code(s): I26.99 - Other pulmonary embolism without acute cor pulmonale Qualifiers: Pulmonary embolism type: multiple subsegmental (without acute cor pulmonale) Qualified Code(s): I26.94 - Multiple subsegmental pulmonary emboli without acute cor pulmonale (2) DVT (deep venous thrombosis): Code(s): I82.409 - Acute embolism and thrombosis of unspecified deep veins of unspecified lower extremity Qualifiers: Affected thrombotic vein of extremity: unspecified vein of extremity Chronicity: acute DVT location: lower extremity Laterality: left Qualified Code(s): I82.402 - Acute embolism and thrombosis of unspecified deep veins of left lower extremity (3) Pulmonary hypertension: Code(s): I27.20 - Pulmonary hypertension, unspecified (4) Pneumonitis: Code(s): J98.4 - Other disorders of lung (5) History of bilateral mastectomy: Onset Date: 02/19/22 Comment: right breast modified radical mastectomy, prophylactic left simple mastectomy- now with recurrence Code(s): Z90.13 - Acquired absence of bilateral breasts and nipples Plan continue Eliquis 5mg BID continue Breo daily continue JAMARCUS as needed Follow up with surgery and oncology F/U 4-6 months Coding Level of Care Code Est Pt Level 4 (09104) Diagnoses Multiple subsegmental pulmonary emboli without acute cor pulmonale I26.94 Pulmonary embolism type: multiple subsegmental (without acute cor pulmonale) Acute deep vein thrombosis (DVT) of left lower extremity, unspecified vein I82.402 Affected thrombotic vein of extremity: unspecified vein of extremity Chronicity: acute DVT location: lower extremity Laterality: left Pulmonary hypertension I27.20 Pneumonitis J98.4 History of bilateral mastectomy Z90.13 Time Spent (min) 17
== END 2023-06-10 14:33 | disposition home or self-care (01) ==
PROVIDERS: PCP Physician Assistant; Visit Provider Hospitalist
DX: I26.94 Multiple subsegmental thrombotic pulmonary emboli without acute cor pulmonale (principal); I82.402 Acute embolism and thrombosis of unspecified deep veins of left lower extremity; I27.20 Pulmonary hypertension, unspecified; J98.4 Other disorders of lung; Z90.13 Acquired absence of bilateral breasts and nipples
CPT/HCPCS: 99214

== ENCOUNTER → 2023-06-10 14:05 | Outpatient (BNVA) | payer OTHER, SELFPAY | PROVIDERS: PCP Physician Assistant; Visit Provider Hospitalist | DX: I26.94 Multiple subsegmental thrombotic pulmonary emboli without acute cor pulmonale (principal); I82.402 Acute embolism and thrombosis of unspecified deep veins of left lower extremity; I27.20 Pulmonary hypertension, unspecified; J98.4 Other disorders of lung; Z90.13 Acquired absence of bilateral breasts and nipples | CPT/HCPCS: 99212 ==

== ENCOUNTER 2023-06-11 13:03 | Outpatient (AMB) | payer OTHER, SELFPAY ==
[2023-06-11 13:13] VITALS: BP 130/72
--- NOTE | 2023-06-11 13:13 | A.OFFVIS_ITS ---
Intake Vital Signs 06/11/23 13:13 Height 11 in BP 130/72 Blood Pressure Location Lt brachial Position Sitting Intake Visit Reasons: S/p exc right melanotic lesion Intake Note: Patient is seen in office for post op assessment post right melatonic lesion. Pt c/o: area is healing well, no concenrs Baggage Agent Required: Yes Baggage Agent Language: Obstetrical Anesthesiologist Name: Laura BRIAN Information Interpreted: non-clinical & clinical Unarmed Security Guard: Unarmed Security Guard Present Accompanied by: Daughter Allergies No Known Allergies [No Known Allergies*] Allergy (Verified 06/18/23 09:06) Medication List - Last Reconciled 06/18/23 by Renard Malik MD acetaminophen 325 mg PO Q6H PRN 30 days albuterol sulfate 90 mcg/actuation 1 puff PO QID PRN albuterol sulfate 2.5 mg (3 mL) inhalation Q6H PRN albuterol sulfate 2.5 mg (3 mL) inhalation Q6H PRN 30 days amitriptyline mg PO amlodipine 10 mg PO DAILY amoxicillin-pot clavulanate 875-125 mg 1 tab PO BID 7 days apixaban (Eliquis) 5 mg PO BID atorvastatin 20 mg PO BEDTIME benzonatate 200 mg (2 x 100 mg) PO TID blood sugar diagnostic (FreeStyle Lite Strips) As directed blood-glucose meter (FreeStyle Lite Meter kit) As directed cholecalciferol (vitamin D3) (Vitamin D3) 50 mcg PO DAILY cholecalciferol (vitamin D3) (Vitamin D3) 50 mcg PO DAILY citalopram 1 tab PO DAILY cyclobenzaprine 10 mg (2 x 5 mg) PO TID PRN diaper,brief,adult,disposable (Briefs, Adult-Extra Large) As directed dicyclomine 20 mg (2 x 10 mg) PO QID 30 days fluticasone furoate-vilanterol 200-25 mcg/dose (Breo Ellipta) 1 inh inhalation DAILY 30 days furosemide (Lasix) 20 mg PO DAILY 30 days gabapentin 800 mg PO TID 90 days incontinence pad, liner, disp As directed lancets (FreeStyle Lancets) As directed letrozole 2.5 mg PO DAILY memantine 28 mg PO DAILY 30 days metoprolol tartrate 50 mg PO BID mirtazapine (Remeron) 15 mg PO BEDTIME 30 days miscellaneous medical supply (Blood Pressure Cuff) As directed nebulizers (AeroEclipse II Nebulizer) As directed nebulizers As directed omeprazole 20 mg PO DAILY 90 days oseltamivir (Tamiflu) 75 mg PO BID 5 days oxycodone 10 mg PO Q8H 28 days prednisone 10 mg PO DIRECTED 9 days trazodone 200 mg (2 x 100 mg) PO BEDTIME 90 days HPI HPI Comments History of Present Illness Details 73-year-old female patient returning fol [facility] bilateral mastectomies for a recurrent right breast cancer. 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 Quezada. She noted bilateral palpable lumps on self examination including the 9 o'clock position of the right breast just lateral to the nipple-areolar complex. The lump is tender to palpation. Second area in the upper outer quadrant of the left breast was also identified on self examination. The lesion of the right breast was confirmed on mammogram dated 01/26/2022. Subsequent ultrasound revealed a suspicious density in the right breast in the 9 o'clock position measuring just under 1.5 cm in diameter. Findings were felt to be suspicious for malignancy and biopsy recommended. Ultrasound-guided core biopsy performed on 01/31/2022 at the [facility] revealed invasive carcinoma with mixed lobular and ductal features, grade 2, ER/SD positive, HER2 Smooth negative, Ki-67 30% (high proliferation index). She denies nipple discharge, skin redness, skin dimpling or enlarged lymph nodes. Menarche was at the age of 9. She is and underwent TAHBSO in the 80s. Family history is significant for a daughter, and 2 sisters with breast cancer. At the patient's request she underwent a right modified radical mastectomy and left simple mastectomy. Pathology revealed: A.? Breast, right, modified radical mastectomy: - Invasive carcinoma with ductal and lobular features, MSBR grade 3, 1.4 cm in size; margins negative. - Metastatic carcinoma present in 1 of 4 lymph nodes examined. - Skin with scar; biopsy site changes. - pT1c N1 (AJCC Stage 8th ed.). B.? Breast, left, simple mastectomy: - Lobular carcinoma in-situ; negative for invasive carcinoma. - Background fibrocystic changes, adenosis and calcifications. - Benign skin and nipple. - Three lymph nodes with reactive changes. Patient underwent excision of a melanotic lesion of the right chest wall on 06/04/2023. She returns today to review the pathology results. Her family was previously advised of the results which indicated a recurrent breast cancer. Patient was informed of the results today. 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 Depression Arthritis IBS (irritable bowel syndrome) GERD (gastroesophageal reflux disease) Diabetes 1.5, managed as type 2 HTN (hypertension) Traumatic complete tear of right rotator cuff Surgical History History of excision of lesion (05/30/23) S/P bilateral mastectomy History of bilateral mastectomy (02/19/22) Hx of cholecystectomy Hx of appendectomy Hx of blepharoplasty History of esophagogastroduodenoscopy (EGD) History of lumpectomy of both breasts History of surgery History of colonoscopy S/P ANDRÉS-BSO (total abdominal hysterectomy and bilateral salpingo-oophorectomy) History of lumbar fusion Family History Father Heart problem Mother Heart disease Hypertension Colon cancer Epilepsy Maternal Grandmother Esophageal cancer Daughter Breast cancer Brother Lung cancer Sister Breast cancer Sister Breast cancer, Onset Age: 60 Sister COVID Daughter Acute kidney failure Social History Household Members: None Housing: House Are you a primary health care analyst to a significant other at home: No Do you presently have visiting nurse or other home services: No (granddaughter Sharla helps take care of her) Alcohol intake: never Patient Tobacco Use Status: Never used Tobacco e-Cigarette/Vaping Use: Never Used Second Hand Smoke Exposure: No Advance Directives Date on File: 09/26/21 service: No Current occupational status: disabled 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) Hearing needs: No Vision needs: Yes Female Reproductive History Menstrual Age of Menarche: 9 Physical Exam Vital Signs: Last Vital Signs BP 130/72 06/11/23 13:13 Const General: no acute distress and well developed Nutritional Appearance: well nourished Orientation/consciousness: patient oriented x3 Limitations: no limitations HEENT Head: Yes normocephalic and Yes atraumatic Chest Other: Mastectomy incisions right breast is clean, dry and intact without redness or discharge. There is redundant skin in the axilla and anterior chest. No erythema is identified. No palpable breast mass. No palpable enlarged lymph nodes. Resp Effort & Inspection: normal respiratory effort Neuro General: patient oriented x3 Extrem Other: Right arm with ecchymosis but no skin tear or necrosis. No evidence of underlying hematoma. Assessment & Plan Assessment & Plan (1) Recurrent cancer of right breast: Code(s): C50.911 - Malignant neoplasm of unspecified site of right female breast Plan 73-year-old female patient returning with evidence of recurrence in the right chest wall, presenting with a melanotic lesion which was actually recurrent breast cancer. The pathology results were discussed in detail with the patient and her family. Arrangements have been made for oncology evaluation with Dr. Tiffany Torres MD [address] [place] [address], [address] [place], [place] (at daughter's request). She should follow up in 1 month. Coding Level of Care Code Global (55342) Diagnoses Recurrent cancer of right breast C50.911
== END 2023-06-11 13:46 | disposition home or self-care (01) ==
PROVIDERS: PCP Physician Assistant; Visit Provider Surgery
DX: C50.911 Malignant neoplasm of unspecified site of right female breast (principal)
CPT/HCPCS: 99213

== ENCOUNTER → 2023-06-11 13:03 | Outpatient (BNVA) | payer OTHER, SELFPAY | PROVIDERS: PCP Physician Assistant; Visit Provider Surgery | DX: C50.911 Malignant neoplasm of unspecified site of right female breast (principal); Z90.13 Acquired absence of bilateral breasts and nipples | CPT/HCPCS: 99212 ==

== ENCOUNTER 2023-06-18 08:46 | Outpatient (AMB) | payer OTHER, SELFPAY ==
[2023-06-18 08:51] VITALS: BP 138/80; PULSE 75; O2SAT 98; BMI 38.6
--- NOTE | 2023-06-18 08:51 | MHC.PC.OV ---
Vital Signs 06/18/23 08:51 Height 4 ft 11 in Weight 191 lb 4 oz BMI 38.6 BP 138/80 Blood Pressure Location Lt brachial Position Sitting Pulse 75 Pulse Source Pulse Oximeter Pulse Oximetry (%) 98 Oxygen Delivery Method Room Air Intake Visit Reasons: Medication F/U Supplier Relationship Director Required: Yes Stripper Preliminary: Present Allergies No Known Allergies [No Known Allergies*] Allergy (Verified 06/18/23 09:06) Medication List - Last Reconciled 06/18/23 by Milan Mcgraw PA-C acetaminophen 325 mg PO Q6H PRN 30 days albuterol sulfate 90 mcg/actuation 1 puff PO QID PRN albuterol sulfate 2.5 mg (3 mL) inhalation Q6H PRN amitriptyline mg PO amlodipine 10 mg PO DAILY apixaban (Eliquis) 5 mg PO BID atorvastatin 20 mg PO BEDTIME benzonatate 200 mg (2 x 100 mg) PO TID blood sugar diagnostic (FreeStyle Lite Strips) As directed blood-glucose meter (FreeStyle Lite Meter kit) As directed cholecalciferol (vitamin D3) (Vitamin D3) 50 mcg PO DAILY cholecalciferol (vitamin D3) (Vitamin D3) 50 mcg PO DAILY citalopram 1 tab PO DAILY cyclobenzaprine 10 mg (2 x 5 mg) PO TID PRN diaper,brief,adult,disposable (Briefs, Adult-Extra Large) As directed dicyclomine 20 mg (2 x 10 mg) PO QID 30 days fluticasone furoate-vilanterol 200-25 mcg/dose (Breo Ellipta) 1 inh inhalation DAILY 30 days furosemide (Lasix) 20 mg PO DAILY PRN gabapentin 800 mg PO TID 90 days incontinence pad, liner, disp As directed lancets (FreeStyle Lancets) As directed letrozole 2.5 mg PO DAILY memantine 28 mg PO DAILY 30 days metoprolol tartrate 50 mg PO BID mirtazapine (Remeron) 15 mg PO BEDTIME 30 days miscellaneous medical supply (Blood Pressure Cuff) As directed nebulizers As directed nitrofurantoin monohyd/m-cryst 100 mg (Macrobid) 100 mg PO Q12H 5 days omeprazole 20 mg PO DAILY 90 days oxycodone 10 mg PO Q8H 28 days trazodone 200 mg (2 x 100 mg) PO BEDTIME 90 days Tobacco use date assessed: 06/18/23 Fall risk assessment: No Falls in past year Last assessed Fall Risk: 06/18/23 Dental Screening Dental Screen Date: 06/18/23 Did you have a dental visit in the last 12 months?: Yes Did you have a dental problem in the last 6 months where you did not have access to dental care?: No Was dental information given to patient?: Patient has dentist HPI Medication F/U HPI Details Patient is a 72-year-old female here today for follow-up visit. She is [place]uran-speaking only thus used a senior sql server developer. Patient's past medical history significant for type 2 diabetes, chronic lumbar spine pain, history of breast cancer and is status post bilateral total mastectomy, DVT and bilateral pulmonary embolism(now on Eliquis) major depressive disorder, mild cognitive impairment. --Concern> has developed a cough over the last few days. Her cough has been productive sputum. Family asking for new nebulizer machine and albuterol solution. PLAN: Viral testing done today, Will treat with antibiotic and prednisone taper .. DMII:Todays A1c- 7.2 , will restart low-dose metformin to take on a daily. . . Obstructive sleep/ Pulmonary embolism/nocturnal hypoxemia: Followed by pulmonology, unable to repeat CT chest. Continues on Eliquis indefinitely. Denies any overt signs of bleeding. . Breast cancer: Is status post bilateral total mastectomy, recently had cyst biopsy which did show recurrent carcinoma. She continues on pain management with oxycodone 10 mg t.i.d. for cancer related pain. Has upcoming appointment with new Oncology at [facility]. . Mild cognitive impairment/hallucinations: Has been seen by Neurology due to her cognitive decline and has been started on memantine. Has been started on CPAP machine at night. Brain MRI in November of 2022 showing chronic age-related changes. .. .. 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 Depression Arthritis IBS (irritable bowel syndrome) GERD (gastroesophageal reflux disease) Diabetes 1.5, managed as type 2 HTN (hypertension) Traumatic complete tear of right rotator cuff Surgical History History of excision of lesion (05/30/23) S/P bilateral mastectomy History of bilateral mastectomy (02/19/22) Hx of cholecystectomy Hx of appendectomy Hx of blepharoplasty History of esophagogastroduodenoscopy (EGD) History of lumpectomy of both breasts History of surgery History of colonoscopy S/P ANDRÉS-BSO (total abdominal hysterectomy and bilateral salpingo-oophorectomy) History of lumbar fusion Family History Father Heart problem Mother Heart disease Hypertension Colon cancer Epilepsy Maternal Grandmother Esophageal cancer Daughter Breast cancer Brother Lung cancer Sister Breast cancer Sister Breast cancer, Onset Age: 60 Sister COVID Daughter Acute kidney failure Social History Household Members: None Housing: House Are you a primary primary care coordinator to a significant other at home: No Do you presently have visiting nurse or other home services: No (granddaughter Sharla helps take care of her) Alcohol intake: never Patient Tobacco Use Status: Never used Tobacco e-Cigarette/Vaping Use: Never Used Second Hand Smoke Exposure: No Advance Directives Date on File: 09/26/21 service: No Current occupational status: disabled 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) Hearing needs: No Vision needs: Yes Female Reproductive History Menstrual Age of Menarche: 9 Questionnaire PHQ-9 Over the last 2 weeks, how often have you been bothered by any of the following problems? 1. Little interest or pleasure in doing things: nearly every day 2. Feeling down, depressed, or hopeless: nearly every day 3. Trouble falling or staying asleep, or sleeping too much: nearly every day 4. Feeling tired or having little energy: nearly every day 5. Poor appetite or overeating: nearly every day 6. Feeling bad about yourself - or that you are a failure or have let yourself or your family down: nearly every day 7. Trouble concentrating on things, such as reading the newspaper or watching television: nearly every day 8. Moving or speaking so slowly that other people could have noticed. Or the opposite - being so fidgety or restless that you have been moving around a lot more than usual: nearly every day 9. Thoughts that you would be better off or of hurting yourself in some way: not at all Total score: 24 Depression Screening Interpretation: Positive Depression Screening Follow-up: Existing condition and Declines treatment Depression Screening Done: Yes 33946 - PHQ-9 Billing: Yes Source: Developed by Drs. Chinedu Romero, Rosemarie Ballard, Mina Lanier and colleagues, with an educational luis fernando from [employer]. Thrive Questionnaire Date Thrive assessed: 06/18/23 I am a: Patient What is your living situation today?: I have a steady place to live Within the past 12 months, did the food you bought not last and you didn't have the money to get more?: Never true Within the past 12 months, did you worry whether your food would run out before you got money to buy more?: Never true Do you have trouble paying for medicines?: No Do you have trouble getting transportation to medical appointments?: No Do you have trouble paying your heating and electricity bill?: No Do you have trouble taking care of your child, family member or friend?: No Do you have trouble with day-to-day activities such as bathing, preparing meals, shopping, managing finances, etc.?: No Are you currently unemployed and looking for a job?: No Are you interested in more education?: No Please select the resources that you would like help with: None THRIVE Score: 0 AUDIT C Alcohol Use Questionnaire (AUDIT-C) 1. How often do you have a drink containing alcohol?: Never 3. How often do you have six or more drinks on one occasion?: Never Total Score: 0 OLAYINKA-7 AMB Questionnaire OLAYINKA-7 Date OLAYINKA - 7 assessed: 06/18/23 Feeling nervous, anxious, or on edge: 0 = Not at all Not being able to stop or control worryin = Not at all Worrying too much about different things: 0 = Not at all Trouble relaxin = Not at all Being so restless that it is hard to sit still: 0 = Not at all Becoming easily annoyed or irritable: 0 = Not at all Feeling afraid as if something awful might happen: 0 = Not at all Total OLAYINKA-7 score (0-4 normal; 5-9 mild; 10-14 moderate; 15-21 severe): 0 Source: Developed by Drs. Chinedu Romero, Rosemarie Ballard, Mina Lanier and colleagues, with an educational luis fernando from [employer]. OLAYINKA-7 Assessment Billing OLAYINKA-7 Assessment Tool: OLAYINKA-7 Assessment 38177 Review of Systems Const Denies headache(s) Eyes Denies loss of vision ENT Denies vertigo, Denies dizziness, Denies headache(s) and Denies sore throat Card Denies chest pain, Denies leg edema and Denies lightheadedness Resp Denies cough, Denies hemoptysis and Denies wheezing GI Denies abdominal pain, Denies melena, Denies constipation, Denies diarrhea and Denies vomiting Denies urinary frequency, Denies dysuria and Denies urinary urgency Musc Denies arthralgias, Denies joint swelling, Denies numbness and Denies tingling Neuro Denies Abnormal speech present, Denies behavioral changes, Denies vertigo, Denies dizziness, Denies headache(s), Denies loss of vision, Denies memory loss, Denies numbness and Denies tingling Psych Denies anxiety, Denies behavioral changes, Denies depression, Denies memory loss and Denies panic attacks Neo/Lymph Denies easy bleeding and Denies easy bruising Aller/Immun Denies wheezing Physical exam (Primary Care) Vital Signs: Last Vital Signs Pulse 75 06/18/23 08:51 BP 138/80 06/18/23 08:51 Pulse Ox 98 06/18/23 08:51 Oxygen Delivery Method Room Air 06/18/23 08:51 BMI result Body Mass Index 38.6 BMI Assessment/Plan discussion: High Tobacco/Smoking Status: Tobacco use Status Tobacco use date assessed 06/18/23 06/18/23 08:52 Patient Tobacco Use Status Never used Tobacco 06/18/23 08:52 e-Cigarette/Vaping Use Never Used 06/18/23 08:52 PHQ-9: PHQ-9 Score PHQ-9: Total score 06/18/23 10:30 Depression Screening Interpretation: Positive Depression Screening Follow-up: Existing condition and Declines treatment Thrive Assessment: Date of Thrive Assessment Date Thrive assessed 06/18/23 06/18/23 08:52 Const General: healthy appearing, no acute distress, alert and awake Nutritional Appearance: well nourished Orientation/consciousness: oriented to person, oriented to place and oriented to time HENMT Ears: TM's normal bilaterally General nose exam: Normal nasal mucous membranes and turbinates present Eyes Conjunctivae: conjunctivae normal Sclerae: sclerae normal Pupils: Equal, round and reactive pupils present Neck Neck: Yes no lymphadenopathy and Yes no JVD Thyroid: Thyroid normal Carotids: no bruits Resp Other: CONTINUE JUNKY QUALITY COUGH DURING EXAM WHEEZE NOTED Effort & Inspection: normal respiratory effort and not tachypneic Auscultation: no crackles, no rales, no rhonchi and wheezes Cardio Rate: regular rate Rhythm: regular rhythm Heart sounds: no murmurs and normal S1 and S2 GI Palpation (GI): Soft to palpation, nontender, no hepatomegaly and no splenomegaly Auscultation: normal bowel sounds Skin General skin exam: no rashes or lesions noted and dry skin Neuro General: oriented to person, oriented to place and oriented to time Cranial nerves: Yes Equal, round and reactive pupils present Speech: No Abnormal speech present Gait exam (Neuro): Normal gait present Motor exam (neuro): no tremor noted Extrem Right upper extremity: full ROM Left upper extremity: full ROM Right lower extremity: full ROM; no edema Left lower extremity: full ROM; no edema Psych Mental Status: mental status grossly normal Speech and movement: Normal speech and movement present Affect: normal affect Attitude: cooperative Thought process: Normal thought process present Results AMB Hemoglobin A1c AMB Hemoglobin A1c 7.2 % Last Edit by ROC Gudino on 06/18/23 09:09 Results Reviewed Results Reviewed: Laboratory Last Values Hgb A1c (Clinic) 7.2 % (4.0-6.0) H 06/18/23 08:58 Assessment and Plan Assessment & Plan (1) DMII (diabetes mellitus, type 2): Code(s): E11.9 - Type 2 diabetes mellitus without complications Qualifiers: Diabetes mellitus complication status: with hyperglycemia Diabetes mellitus shelter insulin use: without shelter use Qualified Code(s): E11.65 - Type 2 diabetes mellitus with hyperglycemia Plan: Patient's type 2 diabetes suboptimally controlled with A1c today is 7.2. Will start low-dose glyburide (2) Asthma: Code(s): J45.909 - Unspecified asthma, uncomplicated Qualifiers: Asthma complication type: uncomplicated Asthma persistence: persistent Asthma severity: mild Qualified Code(s): J45.30 - Mild persistent asthma, uncomplicated Plan: Patient currently seems to be dealing with an asthma exacerbation. Will do viral testing. Family asking for a new nebulizer machine as there is has broken also needs albuterol solution. Will supply patient with prednisone taper and antibiotic as pulmonary exam reveals productive cough and wheezing. (3) NSTEMI (non-ST elevation myocardial infarction): Code(s): I21.4 - Non-ST elevation (NSTEMI) myocardial infarction Plan: Patient now followed by Cardiology and is due for nuclear stress testing. (4) Pulmonary emboli: Code(s): I26.99 - Other pulmonary embolism without acute cor pulmonale Qualifiers: Pulmonary embolism type: multiple subsegmental (without acute cor pulmonale) Qualified Code(s): I26.94 - Multiple subsegmental pulmonary emboli without acute cor pulmonale Plan: Patient had bilateral pulmonary embolism and DVT recently was started on Eliquis.. Family believes pulmonary emboli directly related to cancer treatment med (tamoxifen) (5) HTN (hypertension): Code(s): I10 - Essential (primary) hypertension Qualifiers: Hypertension type: essential hypertension Qualified Code(s): I10 - Essential (primary) hypertension Plan: Blood pressure acceptable today in office. Will continue her current dose of antihypertensive medication with goal blood pressure to remain below 140/90 (6) Recurrent cancer of right breast: Code(s): C50.911 - Malignant neoplasm of unspecified site of right female breast Plan: Unfortunately seems her breast cancer has recurred. Recent biopsy showing primary breast carcinoma. She is status post bilateral mastectomy. Family has established her with new oncologist at [facility] (Dr Torres) (7) MDD (major depressive disorder), recurrent episode, moderate: Code(s): F33.1 - Major depressive disorder, recurrent, moderate Plan: Patient's PHQ-9 score positive for depression which has been existing condition for her. Depression seems to be worsening due to her worsening medical conditions. She continues on SSRI therapy. Not interested in mental health therapy at this time. (8) Bronchitis: Code(s): J40 - Bronchitis, not specified as acute or chronic Plan: Appears to be suffering with bronchitis likely asthma exacerbation. Does have cough and some wheeze today in office. Will supply patient with prednisone taper antibiotic. Will give paper script new nebulizer and new nebulizer albuterol solution.. Viral testing done today in office Orders: Orders AMB Hemoglobin A1c Today E11.9 - Type 2 diabetes mellitus without complications SARS-CoV2/FLU/RSV Today J40 - Bronchitis, not specified as acute or chronic, J45.30 - Mild persistent asthma, uncomplicated, R09.89 - Other specified symptoms and signs involving the circulatory and respiratory systems Medications: New nebulizers (AeroEclipse II Nebulizer) As directed 1 ea 0RF J45.30 - Mild persistent asthma, uncomplicated amoxicillin-pot clavulanate 875-125 mg 1 tab PO BID 7 days 14 tabs 0RF J40 - Bronchitis, not specified as acute or chronic, J45.909 - Unspecified asthma, uncomplicated prednisone see taper instructions 10 mg PO DIRECTED 9 days 18 tabs 0RF J40 - Bronchitis, not specified as acute or chronic albuterol sulfate 2.5 mg (3 mL) inhalation Q6H 30 days PRN 360 mL 1RF shortness of breath or wheezing J45.30 - Mild persistent asthma, uncomplicated glyburide 1.25 mg PO DAILY 60 tabs 1RF 60 days E11.65 - Type 2 diabetes mellitus with hyperglycemia Changed From furosemide (Lasix) Take 1 tablet daily as needed for lower leg swelling 20 mg PO DAILY PRN 30 tabs 0RF edema R60.0 - Localized edema To furosemide (Lasix) Take 1 tablet daily as needed for lower leg swelling 20 mg PO DAILY 30 days 30 tabs 1RF edema R60.0 - Localized edema Refilled benzonatate 200 mg (2 x 100 mg) PO TID 30 caps 0RF J45.30 - Mild persistent asthma, uncomplicated Discontinued nitrofurantoin monohyd/m-cryst 100 mg (Macrobid) must administer with a meal/food Discontinued Reason: Doctor's Order 100 mg PO Q12H 5 days 10 caps 0RF Coding Level of Care Code Est Pt Level 4 (24834) Diagnoses Type 2 diabetes mellitus with hyperglycemia, without long-term current use of insulin E11.65 Diabetes mellitus complication status: with hyperglycemia Diabetes mellitus terminal computer operator insulin use: without terminal computer operator use Mild persistent asthma without complication J45.30 Asthma complication type: uncomplicated Asthma persistence: persistent Asthma severity: mild NSTEMI (non-ST elevation myocardial infarction) I21.4 Multiple subsegmental pulmonary emboli without acute cor pulmonale I26.94 Pulmonary embolism type: multiple subsegmental (without acute cor pulmonale) Essential hypertension I10 Hypertension type: essential hypertension Recurrent cancer of right breast C50.911 MDD (major depressive disorder), recurrent episode, moderate F33.1 Bronchitis J40 Additional Codes OLAYINKA-7 Assessment Billing - OLAYINKA-7 Assessment Tool: OLAYINKA-7 Assessment 92309 ([id number])
== END 2023-06-18 09:33 | disposition home or self-care (01) ==
PROVIDERS: PCP Physician Assistant; Visit Provider Physician Assistant
DX: E11.65 Type 2 diabetes mellitus with hyperglycemia (principal); I21.4 Non-ST elevation (NSTEMI) myocardial infarction; I26.94 Multiple subsegmental thrombotic pulmonary emboli without acute cor pulmonale; F33.1 Major depressive disorder, recurrent, moderate; C50.911 Malignant neoplasm of unspecified site of right female breast; J45.30 Mild persistent asthma, uncomplicated; I10 Essential (primary) hypertension; J40 Bronchitis, not specified as acute or chronic
CPT/HCPCS: 83036; 99214

== ENCOUNTER 2023-06-18 09:43 | Outpatient (REF) | payer OTHER, SELFPAY ==
[2023-06-18 11:33] LABS: Influenza A PCR POSITIVE (Negative); Influenza B PCR NEGATIVE (Negative); Resp Syncy Virus RNA Qual PCR NEGATIVE (Negative); SARS COV2 PCR INHOUSE NEGATIVE (Negative)
== END 2023-06-18 09:44 | disposition home or self-care (01) ==
LOC: HO.LAB 09:43
PROVIDERS: PCP Physician Assistant; Visit Provider Physician Assistant
DX: J45.30 Mild persistent asthma, uncomplicated (principal); J40 Bronchitis, not specified as acute or chronic; R09.89 Other specified symptoms and signs involving the circulatory and respiratory systems; Z11.52 Encounter for screening for COVID-19; Z20.828 Contact with and (suspected) exposure to other viral communicable diseases
CPT/HCPCS: 0241U

== ENCOUNTER → 2023-07-22 08:10 | Outpatient (REF) | payer OTHER, SELFPAY ==
--- NOTE | ~2023-07-22 | NM_ITS ---
Myocardial perfusion study Indication: Non-ST elevation myocardial infarction Technique: The patient was brought in for a Lexiscan perfusion study on 07/22/2023. Patient performed low-level exercise and was injected 0.4 mg of Lexiscan intravenously. Within a minute of injection, 30 mCi of sestamibi was given intravenously. Images were obtained using the SPECT gamma camera interlaced with the gating device. Images were obtained in supine position. Resting perfusion study was performed on 07/23/2023. Patient was administered 30 mCi of sestamibi intravenously at rest. Images were then obtained in supine position. Images obtained with and without CT attenuation. Total DLP 164 mGy-cm. Images were processed with the software and compared side to side in short axis, horizontal long axis and vertical long axis views. Findings: Both stress and rest perfusion study was somewhat suboptimal due to intense subdiaphragmatic uptake especially in the liver interfering with cardiac uptake as well as arms down position The stress perfusion study showed non attenuated images show mildly reduced uptake in the distal inferolateral wall of the LV myocardium. Remainder of the LV myocardium is normally perfused. Attenuation corrected images show mildly reduced uptake in the apex of the LV myocardium. Inferior wall is difficult to assess.. The gated study shows normal LV systolic function with calculated LVEF of 62%. LV cavity is normal in size. The gated study shows normal systolic wall thickening and contraction of segments. Resting study shows attenuated corrected images show mildly reduced uptake in the apex of the LV myocardium.. Gating at rest reveals normal systolic wall motion with ejection fraction at 51%. The findings are consistent with no clear considering the reversible defect suggestive of ischemia.. NM/NM cardiolite stress test Impression: 1. Myocardial perfusion imaging study shows likely normal myocardial perfusion 2. Gated LVEF is 62% 3. Transient ischemic dilatation not present EKG is nondiagnostic for ischemia
--- NOTE | 2023-07-22 08:13 | CA_ITS ---
Acquisition Time: 2023-07-22 08:27:24 Total Exercise Time: 00:02:00 Test Indications: Dyspnea Medications: SEE H Protocol: LEXISCAN Max HR: 098 BPM 67% of Pred: 145 BPM Max BP: 128/082 mmHG Max Work Load: 1.0 METS Pharmacological stress test with lexicsscan injection while sitting and kicking her legs, without anginal symptoms, with PVC, with normotensive response to injection, with nondiagnostic EKGs. Nuclear images pending. Test reviewed with Dr. Rocha. Referred By: Peri Epps Overread By: Jordyn Mckenzie
== END ==
LOC: HO.CARD 08:10
PROVIDERS: PCP Physician Assistant; Visit Provider Nurse Practitioner Family
DX: I21.4 Non-ST elevation (NSTEMI) myocardial infarction (principal)
CPT/HCPCS: 78452; 93017; A9500; J0280; J2785

== ENCOUNTER → 2023-07-22 08:13 | Outpatient (BNV) | payer OTHER, SELFPAY | PROVIDERS: PCP Physician Assistant; Visit Provider Nurse Practitioner | DX: I21.4 Non-ST elevation (NSTEMI) myocardial infarction (principal) | CPT/HCPCS: 78452; 93016; 93018 ==

== ENCOUNTER 2023-07-23 12:53 | Outpatient (AMB) | payer OTHER, SELFPAY ==
--- NOTE | 2023-07-23 13:07 | A.OFFVIS_ITS ---
Intake Vital Signs 3 07/23/23 13:12 Height 4 ft 11 in Weight 194 lb 4 oz BMI 39.2 BP 130/104 H Blood Pressure Location Lt brachial Position Sitting Pulse 75 Intake Visit Reasons: Recurrent cancer of right breast Intake Note: Patient is seen in office for recurrent right breast cancer. Pt c/o: pt was diagnosed with recurrent breast cancer and the oncologist wants to monitor the area, pt would like to have it surgically removed due to it coming back 3 times now, admits to pain due to scar tissue Lamp Tester And Inspector Required: Yes Lamp Tester And Inspector Language: Veneer Jointer Helper Name: Laura BRIAN Information Interpreted: non-clinical & clinical Retail Sales Professional: Retail Sales Professional Present Accompanied by: Grand Child Allergies No Known Allergies [No Known Allergies*] Allergy (Verified 07/23/23 13:09) Medication List - Last Reconciled 07/23/23 by Renard Malik MD acetaminophen 325 mg PO Q6H PRN 30 days albuterol sulfate 90 mcg/actuation 1 puff PO QID PRN albuterol sulfate 2.5 mg (3 mL) inhalation Q6H PRN albuterol sulfate 2.5 mg (3 mL) inhalation Q6H PRN 30 days amitriptyline mg PO amlodipine 10 mg PO DAILY amoxicillin-pot clavulanate 875-125 mg 1 tab PO BID 7 days apixaban (Eliquis) 5 mg PO BID atorvastatin 20 mg PO BEDTIME benzonatate 200 mg (2 x 100 mg) PO TID blood sugar diagnostic (FreeStyle Lite Strips) As directed blood-glucose meter (FreeStyle Lite Meter kit) As directed cholecalciferol (vitamin D3) (Vitamin D3) 50 mcg PO DAILY cholecalciferol (vitamin D3) (Vitamin D3) 50 mcg PO DAILY citalopram 1 tab PO DAILY cyclobenzaprine 10 mg (2 x 5 mg) PO TID PRN diaper,brief,adult,disposable (Briefs, Adult-Extra Large) As directed dicyclomine 20 mg (2 x 10 mg) PO QID 30 days fluticasone furoate-vilanterol 200-25 mcg/dose (Breo Ellipta) 1 inh inhalation DAILY 30 days furosemide (Lasix) 20 mg PO DAILY 30 days gabapentin 800 mg PO TID 90 days glyburide 1.25 mg PO DAILY 60 days incontinence pad, liner, disp As directed lancets (FreeStyle Lancets) As directed letrozole 2.5 mg PO DAILY memantine 28 mg PO DAILY 30 days metoprolol tartrate 50 mg PO BID mirtazapine (Remeron) 15 mg PO BEDTIME 30 days miscellaneous medical supply (Blood Pressure Cuff) As directed nebulizers (AeroEclipse II Nebulizer) As directed nebulizers As directed omeprazole 20 mg PO DAILY 90 days oseltamivir (Tamiflu) 75 mg PO BID 5 days oxycodone 10 mg PO Q8H 28 days prednisone 10 mg PO DIRECTED 9 days trazodone 200 mg (2 x 100 mg) PO BEDTIME 90 days HPI HPI Comments 2 History of Present Illness0 Details 73-year-old female patient returning fol [facility] bilateral mastectomies for a recurrent right breast cancer. 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 Quezada. She noted bilateral palpable lumps on self examination including the 9 o'clock position of the right breast just lateral to the nipple-areolar complex. The lump is tender to palpation. Second area in the upper outer quadrant of the left breast was also identified on self examination. The lesion of the right breast was confirmed on mammogram dated 01/26/2022. Subsequent ultrasound revealed a suspicious density in the right breast in the 9 o'clock position measuring just under 1.5 cm in diameter. Findings were felt to be suspicious for malignancy and biopsy recommended. Ultrasound-guided core biopsy performed on 01/31/2022 at the [facility] revealed invasive carcinoma with mixed lobular and ductal features, grade 2, ER/NY positive, HER2 Smooth negative, Ki-67 30% (high proliferation index). She denies nipple discharge, skin redness, skin dimpling or enlarged lymph nodes. Menarche was at the age of 9. She is and underwent TAHBSO in the 80s. Family history is significant for a daughter, and 2 sisters with breast cancer. At the patient's request she underwent a right modified radical mastectomy and left simple mastectomy. Pathology revealed: A.? Breast, right, modified radical mastectomy: - Invasive carcinoma with ductal and lobular features, MSBR grade 3, 1.4 cm in size; margins negative. - Metastatic carcinoma present in 1 of 4 lymph nodes examined. - Skin with scar; biopsy site changes. - pT1c N1 (AJCC Stage 8th ed.). B.? Breast, left, simple mastectomy: - Lobular carcinoma in-situ; negative for invasive carcinoma. - Background fibrocystic changes, adenosis and calcifications. - Benign skin and nipple. - Three lymph nodes with reactive changes. Patient underwent excision of a melanotic lesion of the right chest wall on 06/04/2023. This revealed recurrent breast cancer. She was evaluated at [facility] and started on letrozole 2.5 mg daily. She presents today to discuss wide excision of the right chest wall lesion. 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 Depression Arthritis IBS (irritable bowel syndrome) GERD (gastroesophageal reflux disease) Diabetes 1.5, managed as type 2 HTN (hypertension) Traumatic complete tear of right rotator cuff Surgical History History of excision of lesion (05/30/23) S/P bilateral mastectomy History of bilateral mastectomy (02/19/22) Hx of cholecystectomy Hx of appendectomy Hx of blepharoplasty History of esophagogastroduodenoscopy (EGD) History of lumpectomy of both breasts History of surgery History of colonoscopy S/P ANDRÉS-BSO (total abdominal hysterectomy and bilateral salpingo-oophorectomy) History of lumbar fusion Family History Father Heart problem Mother Heart disease Hypertension Colon cancer Epilepsy Maternal Grandmother Esophageal cancer Daughter Breast cancer Brother Lung cancer Sister Breast cancer Sister Breast cancer, Onset Age: 60 Sister COVID Daughter Acute kidney failure Social History Household Members: None Housing: House Are you a primary home health caregiver to a significant other at home: No Do you presently have visiting nurse or other home services: No (granddaughter Sharla helps take care of her) Alcohol intake: never Patient Tobacco Use Status: Never used Tobacco e-Cigarette/Vaping Use: Never Used Second Hand Smoke Exposure: No Advance Directives Date on File: 09/26/21 service: No Current occupational status: disabled 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) Hearing needs: No Vision needs: Yes Female Reproductive History Menstrual Age of Menarche: 9 Review of Systems Const All systems reviewed & are unremarkable except as noted in HPI and below Denies chills, Denies fever(s), Denies headache(s), Denies poor appetite and Denies weakness ENT Denies headache(s) Card Denies chest pain, Denies irregular heart rhythm, Denies palpitations and Denies dyspnea Resp Denies cough, Denies excessive phlegm production and Denies dyspnea GI Denies abdominal pain, Denies bloating, Denies change in bowel habits, Denies constipation, Denies heartburn, Denies diarrhea, Denies nausea and Denies vomiting Denies urinary frequency Musc Denies back pain, Denies muscle weakness and Denies numbness Skin/Breast Reports change in pigmentation Neuro Denies headache(s), Denies numbness, Denies paresthesias and Denies weakness Psych Denies anxiety and Denies depression Endo Denies palpitations Neo/Lymph Denies lymphadenopathy Physical Exam Const General: no acute distress and well developed Nutritional Appearance: well nourished Orientation/consciousness: patient oriented x3 Limitations: no limitations HEENT Head: Yes normocephalic and Yes atraumatic Chest Other: Mastectomy incisions right breast is clean, dry and intact without redness or discharge. There is redundant skin in the axilla and anterior chest. No erythema is identified. No palpable breast mass however recurrent black lesion is identified in the medial incision.. No palpable enlarged lymph nodes. Chest/axillae images: 2 1. 2. Resp Effort & Inspection: normal respiratory effort Neuro General: patient oriented x3 Extrem Other: Right arm with ecchymosis but no skin tear or necrosis. No evidence of underlying hematoma. Assessment & Plan Assessment & Plan (1) Recurrent cancer of right breast: Code(s): C50.911 - Malignant neoplasm of unspecified site of right female breast (2) S/P bilateral mastectomy: Code(s): Z90.13 - Acquired absence of bilateral breasts and nipples Plan 73-year-old female patient returning for re-evaluation of a recurrent chest wall invasive breast cancer. I recommended wide excision as a short-stay surgery and after discussion of the procedure, risks, and alternatives, she consents to the surgery. She will be scheduled at her earliest convenience. Coding Level of Care Code Est Pt Level 4 (04946) Diagnoses Recurrent cancer of right breast C50.911 S/P bilateral mastectomy Z90.13
[2023-07-23 13:12] VITALS: BP 130/104; PULSE 75; BMI 39.2
== END 2023-07-23 13:32 | disposition home or self-care (01) ==
PROVIDERS: PCP Physician Assistant; Visit Provider Surgery
DX: C50.911 Malignant neoplasm of unspecified site of right female breast (principal); Z90.13 Acquired absence of bilateral breasts and nipples
CPT/HCPCS: 99214

== ENCOUNTER → 2023-07-23 12:53 | Outpatient (BNVA) | payer OTHER, SELFPAY | PROVIDERS: PCP Physician Assistant; Visit Provider Surgery | DX: C50.811 Malignant neoplasm of overlapping sites of right female breast (principal); Z90.13 Acquired absence of bilateral breasts and nipples | CPT/HCPCS: 99212 ==

== ENCOUNTER 2023-08-14 07:07 | Day surgery (SDC) | payer OTHER, SELFPAY ==
[2023-08-12 08:40] VITALS: BMI 39.2
--- NOTE | 2023-08-13 14:31 | HO.ANESPROP2 ---
Documented by User: Shahnaz Salinas NP 08/13/23 14:39 HPI - Anesthesia Eval Consult details Narrative: 73yo F for Right Wide Excision Chest Lesion (Mastectomy scar) Eliquis for hx DVT/PE 11/2022 PMFSH Active Problems Active Problems: All Active Problems (Updated 06/18/23 @ 11:36 by Milan Mcgraw PA-C) Influenza A (Acute) Bronchitis (Acute) Diabetes 1.5, managed as type 2 (Acute) Recurrent cancer of right breast (Acute) S/P bilateral mastectomy (Acute) Left upper arm pain (Acute) Cervicalgia (Acute) Paresthesias (Acute) Left arm swelling (Acute) Recurrent malignant neoplasm of right breast (Acute) Pulmonary hypertension (Acute) Pneumonitis (Acute) Physical deconditioning (Acute) COVID-19 (Acute) Nocturnal hypoxemia (Acute) Mild obstructive sleep apnea (Acute) Edema (Acute) NSTEMI (non-ST elevation myocardial infarction) (Acute) Elevated troponin (Acute) DVT (deep venous thrombosis) (Acute) Pulmonary emboli (Acute) Leg pain, left (Acute) Excess skin of abdominal wall (Acute) Urinary frequency (Acute) Hallucinations (Acute) Urinary incontinence (Acute) IBS (irritable bowel syndrome) (Acute) History of bilateral mastectomy (Acute) Sleep difficulties (Acute) Excessive daytime sleepiness (Acute) Snoring (Acute) Cognitive disorder (Acute) Cellulitis of breast (Acute) History of bilateral mastectomy (Acute 02/19/22) Lobular carcinoma in situ (Acute) HTN (hypertension) (Acute) Failed back syndrome (Acute) Lumbar disc disease with radiculopathy (Acute) Screening for diabetes mellitus (DM) (Acute) Pre-procedural laboratory examination (Acute) DMII (diabetes mellitus, type 2) (Acute) Insomnia (Acute) Annual physical exam (Acute) Opiate dependence (Acute) MDD (major depressive disorder), recurrent episode, moderate (Acute) Neuropathic pain (Acute) GERD (gastroesophageal reflux disease) (Acute) Diarrhea (Acute) Cervical myelopathy with cervical radiculopathy (Acute) Pre-procedure lab exam (Acute) Chest pain (Acute) Hypertension (Acute) Hyperkalemia (Acute) QUIN (acute kidney injury) (Acute) Radiculopathy (Acute) Musculoskeletal pain (Acute) Prediabetes (Acute) Hospital discharge follow-up (Acute) Cervical stenosis of spinal canal (Acute) Tinea unguium (Acute) Abnormal ultrasound of breast (Acute) Post op infection (Acute) Surgical wound infection (Acute) Toxic metabolic encephalopathy (Acute) Head trauma (Acute) Fall (Acute) Dementia (Acute) Asthma (Acute) Memory deficit (Acute) Traumatic complete tear of right rotator cuff (Acute) Past Medical History Medical History (Updated 08/14/23 @ 08:58 by Mary Sol MD) COVID-19 NSTEMI (non-ST elevation myocardial infarction) Elevated troponin Hyperkalemia Sleep apnea Elevated cholesterol Pulmonary hypertension Pneumonitis Cellulitis of breast Asthma Lobular carcinoma in situ 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 Depression Arthritis IBS (irritable bowel syndrome) GERD (gastroesophageal reflux disease) Recurrent malignant neoplasm of 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, managed as type 2 HTN (hypertension) Traumatic complete tear of right rotator cuff Family History Family History Father Heart problem Mother Heart disease Hypertension Colon cancer Epilepsy Maternal Grandmother Esophageal cancer Daughter Breast cancer Brother Lung cancer Sister Breast cancer Sister Breast cancer, Onset Age: 60 Sister COVID Daughter Acute kidney failure Family history of problems with anesthesia: No Surgical History Surgical History History of excision of lesion (05/30/23) S/P bilateral mastectomy History of bilateral mastectomy (02/19/22) Hx of cholecystectomy Hx of appendectomy Hx of blepharoplasty History of esophagogastroduodenoscopy (EGD) History of lumpectomy of both breasts History of surgery History of colonoscopy S/P ANDRÉS-BSO (total abdominal hysterectomy and bilateral salpingo-oophorectomy) History of lumbar fusion History of Problems with Anesthesia: No Social History Social History Household Members: None Housing: House Are you a primary hospice patient care secretary to a significant other at home: No Do you presently have visiting nurse or other home services: No (granddaughter Sharla helps take care of her) Alcohol intake: never Patient Tobacco Use Status: Never used Tobacco e-Cigarette/Vaping Use: Never Used Second Hand Smoke Exposure: No Use of substances other than those prescribed or required for medical reasons: No Are you DNR?: No Advance Directives: No Advance Directives Information Provided: Yes Advance Directives Date on File: 09/26/21 service: No Current occupational status: disabled 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) Hearing needs: No Vision needs: Yes Meds Allergies Allergy/AdvReac Type Severity Reaction Status Date / Time No Known Allergies Allergy Verified 07/23/23 13:09 [No Known Allergies*] Home Medications Medication Instructions Recorded Confirmed Last Taken Type citalopram 20 mg tablet 1 tab PO DAILY 05/05/22 06/18/23 12/24/22 History apixaban 5 mg tablet (Eliquis) 5 mg PO BID 01/31/23 06/18/23 08/10/23 History letrozole 2.5 mg tablet 2.5 mg PO DAILY 02/15/23 06/18/23 Unknown History amitriptyline 10 mg tablet mg PO 04/22/23 06/18/23 Unknown History amlodipine 10 mg tablet 10 mg PO DAILY 04/22/23 06/18/23 Unknown History nebulizers 04/22/23 06/18/23 Unknown History Exam Height,Weight and Vital Signs: Height 4 ft 11 in Weight 87.997 kg Pertinent Lab Results Pertinent Lab Results: Laboratory Tests 05/30/23 12:20 WBC 9.7 Hgb 12.9 Hct 39.9 Plt Count 385 Sodium 140 Potassium 3.8 Chloride 105 Carbon Dioxide 24 BUN 19 H Creatinine 1.17 Narrative Narrative: EKG 01/2023 Vent. Rate : 079 BPM Atrial Rate : 079 BPM P-R Int : 134 ms QRS Dur : 078 ms QT Int : 410 ms P-R-T Axes : 047 -42 009 degrees QTc Int : 470 ms Normal sinus rhythm Left axis deviation Abnormal ECG When compared with ECG of 14-FEB-2023 17:22, No significant change was found NM cardiolite stress test 06/2023 Impression: 1. Myocardial perfusion imaging study shows likely normal myocardial perfusion 2. Gated LVEF is 62% 3. Transient ischemic dilatation not present EKG is nondiagnostic for ischemia US venous duplex LE LT 03/2023 IMPRESSION: Improvement in the extensive DVT in the left lower extremity since the prior study. There is residual DVT in the proximal femoral vein extending down to the popliteal vein. Assessment and Plan Assessment Anesthesia Assessment: Chart Reviewed Final Anesthetic Review Family History of Problems with Anesthesia: No History of Problems with Anesthesia: No Documented by User: Mary Sol MD 08/14/23 09:05 HPI - Anesthesia Eval Consult details Narrative: 73yo F for Right Wide Excision Chest Lesion (Mastectomy scar) Eliquis for hx DVT/PE 11/2022. Last dose 08/10/23 PMFSH Active Problems Active Problems: All Active Problems (Updated 08/14/23 @ 08:22 by Mary Sol MD) Influenza A (Acute) 05/2023 Bronchitis (Acute) Diabetes 1.5, managed as type 2 (Acute) Recurrent cancer of right breast (Acute) S/P bilateral mastectomy (Acute) Left upper arm pain (Acute) Cervicalgia (Acute) Paresthesias (Acute) Left arm swelling (Acute) Recurrent malignant neoplasm of right breast (Acute) Pulmonary hypertension (Acute) Pneumonitis (Acute) Physical deconditioning (Acute) COVID-19 (Acute)01/2023 Nocturnal hypoxemia (Acute) Mild obstructive sleep apnea (Acute)- Uses CPAP sometimes Edema (Acute) H/o NSTEMI (non-ST elevation myocardial infarction) (Acute) Elevated troponin (Acute) DVT (deep venous thrombosis) (Acute) Pulmonary emboli (Acute) Leg pain, left (Acute) Excess skin of abdominal wall (Acute) Urinary frequency (Acute) Hallucinations (Acute) Urinary incontinence (Acute) IBS (irritable bowel syndrome) (Acute) History of bilateral mastectomy (Acute) 2021 Sleep difficulties (Acute) Excessive daytime sleepiness (Acute) Snoring (Acute) Cognitive disorder (Acute) Cellulitis of breast (Acute) History of bilateral mastectomy (Acute 02/19/22) Lobular carcinoma in situ (Acute) HTN (hypertension) (Acute) Failed back syndrome (Acute) Lumbar disc disease with radiculopathy (Acute) Screening for diabetes mellitus (DM) (Acute) Pre-procedural laboratory examination (Acute) DMII (diabetes mellitus, type 2) (Acute) Insomnia (Acute) Annual physical exam (Acute) Opiate dependence (Acute) MDD (major depressive disorder), recurrent episode, moderate (Acute) Neuropathic pain (Acute) GERD (gastroesophageal reflux disease) (Acute) Diarrhea (Acute) Cervical myelopathy with cervical radiculopathy (Acute) Pre-procedure lab exam (Acute) Chest pain (Acute) Hypertension (Acute) Hyperkalemia (Acute) QUIN (acute kidney injury) (Acute) Radiculopathy (Acute) Musculoskeletal pain (Acute) Prediabetes (Acute) Hospital discharge follow-up (Acute) Cervical stenosis of spinal canal (Acute) Tinea unguium (Acute) Abnormal ultrasound of breast (Acute) Post op infection (Acute) Surgical wound infection (Acute) Toxic metabolic encephalopathy (Acute) Head trauma (Acute) Fall (Acute) Dementia (Acute) Asthma (Acute) Memory deficit (Acute) Traumatic complete tear of right rotator cuff (Acute) Past Medical History Medical History (Updated 08/14/23 @ 08:58 by Mary Sol MD) COVID-19 NSTEMI (non-ST elevation myocardial infarction) Elevated troponin Hyperkalemia Sleep apnea Elevated cholesterol Pulmonary hypertension Pneumonitis Cellulitis of breast Asthma Lobular carcinoma in situ 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 Depression Arthritis IBS (irritable bowel syndrome) GERD (gastroesophageal reflux disease) Recurrent malignant neoplasm of 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, managed as type 2 HTN (hypertension) Traumatic complete tear of right rotator cuff Family History Family History Father Heart problem Mother Heart disease Hypertension Colon cancer Epilepsy Maternal Grandmother Esophageal cancer Daughter Breast cancer Brother Lung cancer Sister Breast cancer Sister Breast cancer, Onset Age: 60 Sister COVID Daughter Acute kidney failure Family history of problems with anesthesia: No Surgical History Surgical History History of excision of lesion (05/30/23) S/P bilateral mastectomy History of bilateral mastectomy (02/19/22) Hx of cholecystectomy Hx of appendectomy Hx of blepharoplasty History of esophagogastroduodenoscopy (EGD) History of lumpectomy of both breasts History of surgery History of colonoscopy S/P ANDRÉS-BSO (total abdominal hysterectomy and bilateral salpingo-oophorectomy) History of lumbar fusion History of Problems with Anesthesia: No Social History Social History Household Members: None Housing: House Are you a primary hospice patient care secretary to a significant other at home: No Do you presently have visiting nurse or other home services: No (granddaughter Sharla helps take care of her) Alcohol intake: never Patient Tobacco Use Status: Never used Tobacco e-Cigarette/Vaping Use: Never Used Second Hand Smoke Exposure: No Use of substances other than those prescribed or required for medical reasons: No Are you DNR?: No Advance Directives: No Advance Directives Information Provided: Yes Advance Directives Date on File: 09/26/21 service: No Current occupational status: disabled 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) Hearing needs: No Vision needs: Yes Meds Allergies Allergy/AdvReac Type Severity Reaction Status Date / Time No Known Allergies Allergy Verified 07/23/23 13:09 [No Known Allergies*] Home Medications Medication Instructions Recorded Confirmed Last Taken Type citalopram 20 mg tablet 1 tab PO DAILY 05/05/22 06/18/23 12/24/22 History apixaban 5 mg tablet (Eliquis) 5 mg PO BID 01/31/23 06/18/23 08/10/23 History letrozole 2.5 mg tablet 2.5 mg PO DAILY 02/15/23 06/18/23 Unknown History amitriptyline 10 mg tablet mg PO 04/22/23 06/18/23 Unknown History amlodipine 10 mg tablet 10 mg PO DAILY 04/22/23 06/18/23 Unknown History nebulizers 04/22/23 06/18/23 Unknown History Exam Airway Mallampati Class: II TM Dist: >3cm Neck ROM: Full Partial: Upper Loose/Missing/Broken Teeth: Yes (Partial denture top.Missing some teeth bottom front. Denies broken or loose teeth) Heart: RRR Lungs: CTAB Assessment and Plan Assessment Anesthesia Assessment: Anesthesia Plan Discussed and Chart Reviewed Final Anesthetic Review Family History of Problems with Anesthesia: No History of Problems with Anesthesia: No NPO: Yes ASA Class: III Final Preanesthetic Review: No Changes in Pt Med Stat, Meds/Allgs Chart Reviewed, Consent Obtained/Reviewed and Anes Risks/Benef Reviewed Patient Risk: Intermediate Procedure Risk: Low Assessment/Block/Sedation in SS: Assess/Block/Sedation-SS Anesthetic Plan Anesthetic Plan: GA Disposition: Standard PACU
[2023-08-14] VITALS (8 sets, daily range): BP systolic 122–144; BP diastolic 53–75; PULSE 68–79; RESP 16–22; TEMP 36.6–36.9; O2SAT 96–100; BMI 37.6
[2023-08-14 07:48] LABS: Glucose, Whole Blood 145 mg/dL (60-115)
[2023-08-14] MEDS: Lactated Ringers 1,000 ML 100 ML IVCONT (08:08)
--- NOTE | 2023-08-14 08:12 | MHC.SHP ---
Pre-Procedural Eval Section A - 24 Hr Update-Section A only Date of Service: 08/14/23 The patient is an INPATIENT: No Changes since office visit: Yes Patient answered all questions; No Cold of Flu in the past 2 weeks, No New Medical Problems and No Changes in Medication The patient has been examined within 24 hours of the surgical procedure. The History & Physical has been completed within 30 days and I have reviewed it.: Yes Section B - Complete if H&P > 30 days Chief Complaint: Acquired absence of bilateral breasts and nipples Allergies: Allergies Allergy/AdvReac Type Severity Reaction Status Date / Time No Known Allergies Allergy Verified 07/23/23 13:09 [No Known Allergies*] Plan Diagnosis/Plan: Unchanged I have reviewed the history and physical and performed a pertinent physical examination on my patient. No changes have occurred unless specified. Time Spent With Patient Time: Total time managing care of this patient today ____ minutes.
--- NOTE | 2023-08-14 09:35 | P.OP_ITS ---
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 After administering general anesthesia the patient's right chest was prepped with ChloraPrep and draped in a sterile fashion. A surgical time-out was called the consent confirmed. Patient received preoperative antibiotics and Venodyne boots were in place. Local anesthesia was then infiltrated circumferentially around the mastectomy scar. A wide excision measuring approximately 15 cm long and 3 cm wide was then performed elliptical fashion in the medial portion of the mastectomy scar. Incision was carried down through subcutaneous tissue down to chest wall. Electrocautery was then used to dissect the lesion off the chest wall. Lesion was passed off the table and sent to pathology for further examination. Hemostasis was assured using electrocautery. Wounds were then irrigated with saline solution. Skin edges were then mobilized off the chest wall both superiorly and inferiorly. Subcutaneous tissue and dermis were then reapproximated using interrupted 3-0 Polysorb sutures. Skin was then closed using a running subcuticular 4-0 Polysorb suture. Steri-Strips, 4 x 4 gauze and Tegaderm were then applied. The patient tolerated the procedure well. Sponge, instrument, and needle counts reported as correct. The patient was transferred to PACU in stable condition.
[2023-08-14] MEDS: fentaNYL citrate/PF 100 MCG/2 ML VIAL 25 MCG IVPUSH (10:00)
[2023-08-14] MEDS: ondansetron HCL 4 MG/2 ML VIAL IVPUSH (10:05)
[2023-08-14] MEDS: Acetaminophen 325 MG TABLET 650 MG PO (10:20)
== END 2023-08-14 11:20 | disposition home or self-care (01) ==
PROVIDERS: PCP Physician Assistant; Visit Provider Surgery
PROC: (CPT 11606; principal; 2023-08-14 08:40)
DX: C44.591 Other specified malignant neoplasm of skin of breast (principal); Z17.0 Estrogen receptor positive status [ER+]; Z90.13 Acquired absence of bilateral breasts and nipples; I27.20 Pulmonary hypertension, unspecified; J98.4 Other disorders of lung; I10 Essential (primary) hypertension; E13.8 Other specified diabetes mellitus with unspecified complications; J45.909 Unspecified asthma, uncomplicated; K21.9 Gastro-esophageal reflux disease without esophagitis; Z79.01 Long term (current) use of anticoagulants; Z79.84 Long term (current) use of oral hypoglycemic drugs; Z79.899 Other long term (current) drug therapy; Z99.89 Dependence on other enabling machines and devices; Z79.811 Long term (current) use of aromatase inhibitors; F32.A Depression, unspecified; Z98.890 Other specified postprocedural states
CPT/HCPCS: 11606; 12035; 82947; 88304; 88305; J0665; J0690; J2250; J2405; J2704; J3010

== ENCOUNTER → 2023-08-14 07:07 | Outpatient (BNV) | payer OTHER, SELFPAY | PROVIDERS: PCP Physician Assistant; Visit Provider Surgery | DX: C50.911 Malignant neoplasm of unspecified site of right female breast (principal); Z90.13 Acquired absence of bilateral breasts and nipples | CPT/HCPCS: 21554 ==

== ENCOUNTER 2023-08-27 14:32 | Outpatient (REF) | payer OTHER, SELFPAY | END 2023-08-27 14:33 | disposition home or self-care (01) | LOC: HO.LAB 14:32 | PROVIDERS: PCP Physician Assistant; Visit Provider Nurse Practitioner Family | DX: R30.0 Dysuria (principal) | CPT/HCPCS: 87086; 87088; 87186; 99212 ==

== ENCOUNTER 2023-08-27 14:53 | Outpatient (AMB) | payer OTHER, SELFPAY ==
--- NOTE | 2023-08-27 14:53 | MHC.OFFVIS ---
Intake Vital Signs 08/27/23 14:54 Height 4 ft 11 in Weight 182 lb 15.739 oz BMI 37.0 Respiration 16 Pulse 72 Intake Visit Reasons: s/p wide excision right chest wall Intake Note: Patient is seen in office for post op assessment post wide excision of right chest wall recurrent breast cancer. 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: No Accompanied by: Family/Other Allergies No Known Allergies [No Known Allergies*] Allergy (Verified 08/27/23 14:54) Medication List - Last Reconciled 08/27/23 by Renard Malik MD acetaminophen 325 mg PO Q6H PRN 30 days albuterol sulfate 90 mcg/actuation 1 puff PO QID PRN albuterol sulfate 2.5 mg (3 mL) inhalation Q6H PRN 30 days amitriptyline mg PO amlodipine 10 mg PO DAILY apixaban (Eliquis) 5 mg PO BID atorvastatin 20 mg PO BEDTIME blood sugar diagnostic (FreeStyle Lite Strips) As directed blood-glucose meter (FreeStyle Lite Meter kit) As directed cholecalciferol (vitamin D3) (Vitamin D3) 50 mcg PO DAILY citalopram 1 tab PO DAILY cyclobenzaprine 10 mg (2 x 5 mg) PO TID PRN diaper,brief,adult,disposable (Briefs, Adult-Extra Large) As directed dicyclomine 20 mg (2 x 10 mg) PO QID 30 days fluticasone furoate-vilanterol 200-25 mcg/dose (Breo Ellipta) 1 inh inhalation DAILY 30 days furosemide (Lasix) 20 mg PO DAILY 30 days gabapentin 800 mg PO TID 90 days glyburide 1.25 mg PO DAILY 60 days incontinence pad, liner, disp As directed lancets (FreeStyle Lancets) As directed letrozole 2.5 mg PO DAILY memantine 28 mg PO DAILY 30 days metoprolol tartrate 50 mg PO BID mirtazapine (Remeron) 15 mg PO BEDTIME 30 days miscellaneous medical supply (Blood Pressure Cuff) As directed nebulizers (AeroEclipse II Nebulizer) As directed nebulizers As directed omeprazole 20 mg PO DAILY 90 days oseltamivir (Tamiflu) 75 mg PO BID 5 days oxycodone 10 mg PO Q8H 28 days trazodone 200 mg (2 x 100 mg) PO BEDTIME 90 days HPI HPI Comments History of Present Illness Details 73-year-old female patient with recurrent breast cancer status post wide excision of mastectomy incision 1 week ago. She returns with her granddaughter reports the patient has been very confused over the last several days. She is uncertain if it is due to her medications. She is concerned about possible urinary tract infection as this has previously happened with resulting confusion. She denies any problems with the mastectomy incision and returns today for a postop check. 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 Depression Arthritis IBS (irritable bowel syndrome) GERD (gastroesophageal reflux disease) Recurrent malignant neoplasm of 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, managed as type 2 HTN (hypertension) Traumatic complete tear of right rotator cuff Surgical History History of excision of lesion (05/30/23) S/P bilateral mastectomy History of bilateral mastectomy (02/19/22) Hx of cholecystectomy Hx of appendectomy Hx of blepharoplasty History of esophagogastroduodenoscopy (EGD) History of lumpectomy of both breasts History of surgery History of colonoscopy S/P ANDRÉS-BSO (total abdominal hysterectomy and bilateral salpingo-oophorectomy) History of lumbar fusion Family History Father Heart problem Mother Heart disease Hypertension Colon cancer Epilepsy Maternal Grandmother Esophageal cancer Daughter Breast cancer Brother Lung cancer Sister Breast cancer Sister Breast cancer, Onset Age: 60 Sister COVID Daughter Acute kidney failure Social History Household Members: None Housing: House Are you a primary congregational care pastor to a significant other at home: No Do you presently have visiting nurse or other home services: No (granddaughter Sharla helps take care of her) Alcohol intake: never Comment: counts correct Patient Tobacco Use Status: Never used Tobacco e-Cigarette/Vaping Use: Never Used Second Hand Smoke Exposure: No Advance Directives Date on File: 09/26/21 service: No Current occupational status: disabled 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) Hearing needs: No Vision needs: Yes Female Reproductive History Menstrual Age of Menarche: 9 Review of Systems Neuro Reports confusion Psych Reports confusion Physical Exam Vital Signs: Last Vital Signs Pulse 72 08/27/23 14:54 Resp 16 08/27/23 14:54 BMI result Body Mass Index 37.0 Const General: awake and confusion Nutritional Appearance: well nourished Orientation/consciousness: confusion Chest Other: Right mastectomy incision is clean, dry, and intact without seroma or erythema. Steri-Strips remain intact. Resp Effort & Inspection: normal respiratory effort Neuro General: confusion Extrem General: No edema Assessment & Plan Assessment & Plan (1) Dysuria: Code(s): R30.0 - Dysuria (2) Recurrent cancer of right breast: Code(s): C50.911 - Malignant neoplasm of unspecified site of right female breast Plan Patient is well healed from her wide excision of the mastectomy incision. A copy of the pathology report was provided to her granddaughter. She will be sent for urinalysis at the laboratory today. She will follow-up for routine breast examination in 3 months. Orders: Orders Urine Culture Today R30.0 - Dysuria Coding Level of Care Code Global (08648) Diagnoses Dysuria R30.0 Recurrent cancer of right breast C50.911
[2023-08-27 14:54] VITALS: PULSE 72; RESP 16; BMI 37.0
== END 2023-08-27 14:58 | disposition home or self-care (01) ==
LOC: HO.HGS 14:53
PROVIDERS: PCP Physician Assistant; Visit Provider Surgery
DX: R30.0 Dysuria (principal); C50.911 Malignant neoplasm of unspecified site of right female breast
CPT/HCPCS: 99024

== ENCOUNTER 2023-08-28 11:24 | Outpatient (AMB) | payer OTHER, SELFPAY ==
--- NOTE | 2023-08-28 11:25 | A.OFFVIS_ITS ---
Intake Vital Signs 08/28/23 11:35 Height 4 ft 11 in Weight 182 lb BMI 36.8 BP 128/76 Blood Pressure Location Rt brachial Position Sitting Pulse 87 Pulse Source Pulse Oximeter Pulse Oximetry (%) 100 Oxygen Delivery Method Room Air Intake Visit Reasons: 3-4 mon follow up-CONF Intake Note: Patient presents for 3-4 month follow up. She's becoming very confused since starting medication we stopped all meds because we didn't know which one was affecting (Kathryn David). Allergies No Known Allergies [No Known Allergies*] Allergy (Verified 09/09/23 14:42) HPI HPI Comments History of Present Illness Details 73-yr-old female presents for f/u visit. Pt has had episodes of confusion and hallucinations usually in the night. Her family noticed that this tended to happen about 2 hrs after she took her nighttime meds. Then one day, she took her nighttime meds earlier, around 5pm, and she had similar behaviors. The episodes included- her speech was not making sense (her speech was clear but it was not real words that sounded Vietnamese), she complained that her mouth felt heavy, her tongue felt like it had fallen asleep, Then 3-4 days ago, she had another episode that was more severe. She had not taken any of her bedtime meds the night before. Pt was doing well that day. Then her caregiver, left the house for a while. Then around 4pm, pt's family could not reach pt by phone. When her family arrived, she was sitting in bed, and stated that her phone was not working- but her phone was on the floor. Family realized that she had taken her bedtime pills early, and they helped her to bed. The in the morning, she know who everyone was, she was confused, had decreased strength. The confusion is described as that she is talking about people who years ago. Family was concerned about medication effects, so they were trying to hold her medications. However, pt was still taking some of her meds. And she was still taking her oxycodone. The time he is not entirely clear from family, however at some point, they stopped all of her meds. This seems to have been followed by motion cognition. Although now, family does report patient seems clearer and stronger. Patient had recent urine culture done, however UA and sensitivity was not completed. 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 Depression Arthritis IBS (irritable bowel syndrome) GERD (gastroesophageal reflux disease) Recurrent malignant neoplasm of 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, managed as type 2 HTN (hypertension) Traumatic complete tear of right rotator cuff Surgical History History of excision of lesion (05/30/23) S/P bilateral mastectomy History of bilateral mastectomy (02/19/22) Hx of cholecystectomy Hx of appendectomy Hx of blepharoplasty History of esophagogastroduodenoscopy (EGD) History of lumpectomy of both breasts History of surgery History of colonoscopy S/P ANDRÉS-BSO (total abdominal hysterectomy and bilateral salpingo-oophorectomy) History of lumbar fusion Family History Father Heart problem Mother Heart disease Hypertension Colon cancer Epilepsy Maternal Grandmother Esophageal cancer Daughter Breast cancer Brother Lung cancer Sister Breast cancer Sister Breast cancer, Onset Age: 60 Sister COVID Daughter Acute kidney failure Social History Household Members: None Housing: House Are you a primary field care coordinator to a significant other at home: No Do you presently have visiting nurse or other home services: No (granddaughter Sharla helps take care of her) Alcohol intake: never Comment: counts correct Patient Tobacco Use Status: Never used Tobacco Smoked in Last 30 Days: No e-Cigarette/Vaping Use: Never Used Second Hand Smoke Exposure: No Use of substances other than those prescribed or required for medical reasons: No Advance Directives: Yes Advance Directives on File: Yes Advance Directives Date on File: 06/13/23 service: No Current occupational status: disabled 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) Hearing needs: No Vision needs: Yes Female Reproductive History Menstrual Age of Menarche: 9 Review of Systems Const All systems reviewed & are unremarkable except as noted in HPI and below Physical Exam Vital Signs: Last Vital Signs Pulse 87 08/28/23 11:35 BP 128/76 08/28/23 11:35 Pulse Ox 100 08/28/23 11:35 Oxygen Delivery Method Room Air 08/28/23 11:35 BMI result Body Mass Index 36.8 Const General: cooperative and no acute distress HEENT Head: Yes normocephalic Resp Effort & Inspection: normal respiratory effort and able to speak in complete sentences Neuro Other: Patient alert responding appropriately, with short-term memory lapses General: CN's II-XI intact bilaterally Motor exam (neuro): 5/5 motor strength present throughout Psych Appearance: grossly normal Speech and movement: Normal speech and movement present Affect: normal affect Attitude: cooperative Assessment & Plan Assessment & Plan (1) Dysuria: Code(s): R30.0 - Dysuria (2) Cognitive disorder: Code(s): F09 - Unspecified mental disorder due to known physiological condition (3) Mild obstructive sleep apnea: Code(s): G47.33 - Obstructive sleep apnea (adult) (pediatric) (4) Nocturnal hypoxemia: Code(s): G47.34 - Idiopathic sleep related nonobstructive alveolar hypoventilation Plan As patient is reporting dysuria urinary frequency, will order UA/C&S. Encouraged patient to reach out to prescribing provider if they had any questions regarding patient's medications. Discussed the patient experienced withdrawal symptoms abruptly stopping a wide variety medications, including her blood pressure medications. Discussed that patient could have adverse affects from abruptly stopping the medications. Family expresses understanding, and would like guidance in resuming medication while reducing risk for polypharmacy. Advised to f/u w/ GI and PCP, but for now: Resume BB, Eliquis, statin, dicyclomine, diabetes tx, Namenda. Reduce oxycodone to 10mg 1/2 tab tid prn Hold Gabapentin- if pain increases, resume at 400mg qhs. Stop citalopram. Change to Lexapro 5mg- as this has a wall cleaner side effect profile. Stop Remeron. Decrease Trazodone to 50mg qhs. Only use cyclobanzaprine 5mg prn- sparingly. [facility] for neuropsych eval appt as ordered. Wear her life alert at all times, previously advised to add door alarms to both front and back doors. Will f/u on status of APAP and nocturnal pulse oximtry reading x's 1 on PAP tx orders.. f/u in 3-4 months or sooner prn. Addendum: UA/C&S results positive for > 100,000 e.coli. Order for Bactrim DS 1 tab b.i.d. ordered. Patient and daughter updated Orders: Orders UA CC w/rflx Micro + Cult 08/28/23 R30.0 - Dysuria Medications: New escitalopram oxalate 5 mg PO DAILY 30 tabs 3RF 30 days Coding Level of Care Code Est Pt Level 4 (07045) Diagnoses Dysuria R30.0 Cognitive disorder F09 Mild obstructive sleep apnea G47.33 Nocturnal hypoxemia G47.34
[2023-08-28 11:35] VITALS: BP 128/76; PULSE 87; O2SAT 100; BMI 36.8
== END 2023-08-28 12:34 | disposition home or self-care (01) ==
PROVIDERS: PCP Physician Assistant; Visit Provider Nurse Practitioner Family
DX: R30.0 Dysuria (principal); R41.89 Other symptoms and signs involving cognitive functions and awareness; G47.33 Obstructive sleep apnea (adult) (pediatric); G47.34 Idiopathic sleep related nonobstructive alveolar hypoventilation
CPT/HCPCS: 99214

== ENCOUNTER → 2023-08-28 11:24 | Outpatient (BNVA) | payer OTHER, SELFPAY | PROVIDERS: PCP Physician Assistant; Visit Provider Nurse Practitioner Family | DX: R44.3 Hallucinations, unspecified (principal); F09 Unspecified mental disorder due to known physiological condition; G47.33 Obstructive sleep apnea (adult) (pediatric); G47.34 Idiopathic sleep related nonobstructive alveolar hypoventilation; R35.0 Frequency of micturition; R32 Unspecified urinary incontinence; R30.0 Dysuria | CPT/HCPCS: 36415; 80053; 80061; 81001; 82043; 82570; 83036; 85025; 99212 ==

== ENCOUNTER 2023-08-28 12:45 | Outpatient (REF) | payer OTHER, SELFPAY ==
[2023-08-28 16:42] LABS: MANUAL DIFF FLAG NO
[2023-08-28 16:55] LABS: Appearance Urine Cloudy; Color Urine Dark Yellow; Glucose Urine UA Negative (Negative); Leukocyte Esterase Urine Moderate (2+) (Negative); Nitrite Urine Positive (Negative); Specific Gravity - Urine 1.025 (1.005-1.025); UMIC TRIGGER UACC YES; Urine Blood Trace (Negative); Urine Ketones >=160 mg/dL (Negative); Urine Protein 100 (2+) mg/dL (Neg-Trace)
[2023-08-28 17:01] LABS: Bacteria Urine 4+ (None Seen); Squamous Epithelial Cell Urine 0-2 /HPF (0-2); UACC Culture Trigger YES; WBC Urine >50 /HPF (0-5)
[2023-08-28 17:02] LABS: Estimated Average Glucose 131 mg/dL; Hemoglobin A1c % 6.2 % (<6.0)
[2023-08-28 17:03] LABS: Basophils Percent Auto 0.2 % (0-2); Eosinophils Percent Auto 0.1 % (0-4); Hemoglobin 12.4 g/dl (12.0-16.0); Imm Gran Abs Auto 0.08 X10*3/uL (0.00-0.03); Imm Gran Pct Auto 0.4 % (0.0-0.4); Lymphocytes Absolute Auto 1.4 X10*3/uL (1.2-4.9); Lymphocytes Percent Auto 7.7 % (20-40); Mean Corpuscular HGB Conc 33.5 g/dl (31.0-35.0); Mean Corpuscular Hemoglobin 29.2 pg (27.0-33.0); Mean Corpuscular Volume 87.3 fL (80.0-98.0); Mean Platelet Volume 10.8 fL (9.4-12.3); Monocytes Absolute Auto 0.9 X10*3/uL (0.1-1.2); Monocytes Percent Auto 5.1 % (2-11); Neutrophils Absolute Auto 15.9 x10*3/uL (2.0-8.3); Neutrophils Percent Auto 86.5 % (45-73); Platelet Count 347 X10*3/uL (160-400); Red Blood Count 4.24 X10*6/uL (4.20-5.50); Red Cell Distribution Width 14.5 % (11.0-16.0); White Blood Count 18.4 X10*3/uL (4.8-10.8)
[2023-08-28 17:05] LABS: Alanine Aminotransferase 20 U/L (0-31); Alkaline Phosphatase 88 U/L (39-117); Anion Gap 15 (12-20); Aspartate Amino Transferase 21 U/L (5-31); Bilirubin Total 0.5 mg/dL (0.0-1.0); Blood Urea Nitrogen 16 mg/dL (9-16); Calcium 9.7 mg/dL (8.4-10.2); Carbon Dioxide 25 mmol/L (22-29); Chloride 103 mmol/L (96-108); Estimated Glomerular Filt Rate > 60; Glucose Random 130 mg/dL (60-115); Potassium 4.1 mmol/L (3.3-5.1); Sodium 139 mmol/L (135-145); Total Protein 7.9 g/dL (6.5-8.0)
[2023-08-28 18:06] LABS: Creatinine Urine 216.14 mg/dL; Microalbum/Creatinine Ratio Ur 59.6 ug/mg cr (<30)
== END 2023-08-28 12:46 | disposition home or self-care (01) ==
LOC: HO.HKASLDS 12:45
PROVIDERS: Physician Assistant; Visit Provider Nurse Practitioner Family
DX: Z13.89 Encounter for screening for other disorder (principal)
CPT/HCPCS: 36415; 80053; 80061; 81001; 82043; 82570; 83036; 85025

== ENCOUNTER 2023-09-09 13:40 | Emergency (ER) | payer OTHER, SELFPAY ==
--- NOTE | ~2023-09-09 | CT_ITS ---
EXAMINATION: CT ABDOMEN AND PELVIS WITHOUT CONTRAST CLINICAL INFORMATION: right side abd pain. COMPARISON: No pertinent prior studies are available for comparison. TECHNIQUE: Multidetector volumetric imaging was performed from the superior aspect of the liver through the pubic symphysis without contrast per request. Sagittal and coronal reformatted images were obtained on the technologist workstation. This CT examination was performed using dose optimization techniques as appropriate, variously including the following: *Automated exposure control *Adjustment of mA and/or kV according to patient size (this includes techniques or standardized protocols for targeted exams where dose is matched to indication/reason for exam; i.e. extremities or head) *Use of iterative reconstruction technique DLP: 795 mGy-cm. FINDINGS: LUNG BASES: The visualized lung bases are unremarkable. Small hiatal hernia. Patient is likely status post right mastectomy but this could be clinically correlated. LIVER, GALLBLADDER, BILIARY TREE: The non-contrast liver is normal in size, shape, and attenuation. No focal hepatic lesion. No intrahepatic biliary ductal dilatation is present. The common bile duct is prominent measuring up to 1.2 cm in diameter likely reflecting postcholecystectomy status and age. PANCREAS: Unremarkable. SPLEEN: Unremarkable. ADRENAL GLANDS: Unremarkable. KIDNEYS AND URETERS: The kidneys are normal in size, shape, and attenuation. 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 No hydronephrosis, hydroureter, or perinephric stranding. No calculi. BLADDER: Unremarkable. GASTROINTESTINAL TRACT: Scattered colonic diverticulosis. No colonic wall thickening or pericolonic inflammatory change to suggest diverticulitis. Visualized small bowel unremarkable. ABDOMINAL WALL: No significant hernia is appreciated. LYMPHOVASCULAR STRUCTURES: Vascular calcification within the aorta iliac system. No bulky adenopathy. PELVIC VISCERA: Presumably surgically absent OSSEUS STRUCTURES: Extensive multilevel degenerative changes in the spine. No acute bony abnormality. CT/CT abdomen pelvis wo IV con IMPRESSION: Chronic appearing and postoperative changes as described. I do not appreciate any acute intra-abdominal process.
--- NOTE | 2023-09-09 14:41 | ED.GENADULT ---
HPI - General Adult General Chief complaint: Nausea/Vomiting/Diarrhea Stated complaint: Numb lips/Abd pain diarrhea Time Seen by Provider: 09/09/23 17:57 Source: patient and family ( daughter) Mode of arrival: ambulatory Limitations: no limitations History of Present Illness HPI narrative: 73-year-old female presented with her daughters for evaluation chronic diarrhea for the past 4 weeks, patient had UTI about a month ago received an antibiotic and finished it 2-3 weeks ago, family confirmed that the diarrhea started before antibiotic was started. Patient is unable to give stool sample to check for C diff, complaining of right flank abdominal pain. As per daughter's when patient gets UTI she gets significant change of mental status and confusion. Patient is a poor historian unable to describe any further symptoms. Related Data Home Medications ?Medication ?Instructions ?Recorded ?Confirmed apixaban 5 mg tablet (Eliquis) 5 mg PO BID 01/31/23 08/27/23 letrozole 2.5 mg tablet 2.5 mg PO DAILY 02/15/23 08/27/23 amitriptyline 10 mg tablet mg PO 04/22/23 08/27/23 amlodipine 10 mg tablet 10 mg PO DAILY 04/22/23 08/27/23 nebulizers 04/22/23 08/27/23 Previous Rx's ?Medication ?Instructions ?Recorded blood sugar diagnostic (FreeStyle #100 ea 10/17/22 Lite Strips) blood-glucose meter (FreeStyle #1 10/17/22 Lite Meter kit) lancets 28 gauge (FreeStyle #100 ea 10/17/22 Lancets) miscellaneous medical supply #1 ea 10/17/22 (Blood Pressure Cuff) diaper,brief,adult,disposable #200 ea 01/07/23 (Briefs, Adult-Extra Large) incontinence pad, liner, disp #400 ea 01/07/23 atorvastatin 20 mg tablet 20 mg PO BEDTIME #90 tabs 01/16/23 acetaminophen 325 mg tablet 325 mg PO Q6H PRN pain 30 days 01/23/23 #120 tabs omeprazole 20 mg capsule,delayed 20 mg PO DAILY 90 days #90 caps 04/11/23 release fluticasone furoate 200 1 inh inhalation DAILY 30 days #60 04/22/23 mcg-vilanterol 25 mcg/dose ea inhalation powder (Breo Ellipta) gabapentin 800 mg tablet 800 mg PO TID 90 days #270 tabs 04/24/23 cholecalciferol (vitamin D3) 50 50 mcg PO DAILY #90 tabs 05/09/23 mcg (2,000 unit) tablet (Vitamin D3) cyclobenzaprine 5 mg tablet 10 mg (2 x 5 mg) PO TID PRN for 05/09/23 muscle spasm #180 tabs trazodone 100 mg tablet 200 mg (2 x 100 mg) PO BEDTIME 90 05/13/23 days #180 tabs memantine 28 mg capsule 28 mg PO DAILY 30 days #30 ea 05/23/23 sprinkle,extended release 24hr albuterol sulfate 2.5 mg/3 mL 2.5 mg (3 mL) inhalation Q6H PRN 06/18/23 (0.083 %) solution for nebulization shortness of breath or wheezing 30 days #360 mL furosemide 20 mg tablet (Lasix) 20 mg PO DAILY edema 30 days #30 06/18/23 tabs glyburide 1.25 mg tablet 1.25 mg PO DAILY 60 days #60 tabs 06/18/23 mirtazapine 15 mg tablet (Remeron) 15 mg PO BEDTIME 30 days #30 tabs 06/18/23 nebulizers (AeroEclipse II #1 ea 06/18/23 Nebulizer) oseltamivir 75 mg capsule (Tamiflu) 75 mg PO BID 5 days #10 caps 06/18/23 albuterol sulfate 90 mcg/actuation 1 puff PO QID PRN Shortness Of 08/15/23 aerosol inhaler Breath #8.5 grams dicyclomine 10 mg capsule 20 mg (2 x 10 mg) PO QID 30 days 08/15/23 #240 caps metoprolol tartrate 50 mg tablet 50 mg PO BID #180 tabs 08/15/23 oxycodone 10 mg tablet 10 mg PO Q8H pain 28 days #84 tabs 08/20/23 escitalopram oxalate 5 mg tablet 5 mg PO DAILY 30 days #30 tabs 08/28/23 sulfamethoxazole 800 1 tab PO Q12H UTI 10 days #20 tabs 08/30/23 mg-trimethoprim 160 mg tablet (Bactrim DS) cefuroxime axetil 250 mg tablet 250 mg PO BID #14 tabs 09/09/23 Allergies Allergy/AdvReac Type Severity Reaction Status Date / Time No Known Allergies Allergy Verified 09/09/23 14:42 [No Known Allergies*] Review of Systems Review of Systems: All other systems are reviewed and are negative Constitutional: Reports as per HPI and Reports no additional constitutional complaints Eyes: Reports as per HPI and Reports no additional eye complaints Reports system reviewed and no additional complaints, except as documented Cardiovascular: Reports as per HPI and Reports no additional cardiovascular complaints Respiratory: Reports as per HPI and Reports no additional respiratory complaints Gastrointestinal: Reports as per HPI and Reports no additional gastrointestinal complaints Genitourinary: Reports no additional female genitourinary complaints Musculoskeletal: Reports no additional musculoskeletal complaints Skin/Breast: Reports system reviewed and no additional complaints, except as docu Psychiatric: Reports no additional psychiatric complaints Endocrine: Reports no additional endocrine complaints Hematologic/Lymphatic: Reports no additional hematologic/lymphatic complaints Allergic/Immunologic: Reports no additional allergic/immunologic complaints Reports system reviewed and no additional complaints, except as documented and Reports Abnormal speech present [facility] Past Medical History Medical History COVID-19 NSTEMI (non-ST elevation myocardial infarction) Elevated troponin Hyperkalemia Sleep apnea Elevated cholesterol Pulmonary hypertension Pneumonitis Cellulitis of breast Asthma Lobular carcinoma in situ 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 Depression Arthritis IBS (irritable bowel syndrome) GERD (gastroesophageal reflux disease) Recurrent malignant neoplasm of 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, managed as type 2 HTN (hypertension) Traumatic complete tear of right rotator cuff Surgical History History of excision of lesion (05/30/23) S/P bilateral mastectomy History of bilateral mastectomy (02/19/22) Hx of cholecystectomy Hx of appendectomy Hx of blepharoplasty History of esophagogastroduodenoscopy (EGD) History of lumpectomy of both breasts History of surgery History of colonoscopy S/P ANDRÉS-BSO (total abdominal hysterectomy and bilateral salpingo-oophorectomy) History of lumbar fusion Family History Family History Father Heart problem Mother Heart disease Hypertension Colon cancer Epilepsy Maternal Grandmother Esophageal cancer Daughter Breast cancer Brother Lung cancer Sister Breast cancer Sister Breast cancer, Onset Age: 60 Sister COVID Daughter Acute kidney failure Social History Social History Household Members: None Housing: House Are you a primary primary care physician to a significant other at home: No Do you presently have visiting nurse or other home services: No (granddaughter Sharla helps take care of her) Alcohol intake: never Comment: counts correct Patient Tobacco Use Status: Never used Tobacco Smoked in Last 30 Days: No e-Cigarette/Vaping Use: Never Used Second Hand Smoke Exposure: No Use of substances other than those prescribed or required for medical reasons: No Advance Directives: Yes Advance Directives on File: Yes Advance Directives Date on File: 06/13/23 service: No Current occupational status: disabled 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) Hearing needs: No Vision needs: Yes Physical Exam ED Vital Signs: Vital Signs - 24 hr 09/09/23 14:42 09/09/23 17:41 09/09/23 19:57 Temperature 97.1 F 97.5 F 97.6 F Pulse Rate 71 63 65 Respiratory Rate 20 16 16 Blood Pressure 180/93 H 147/127 H 153/75 H Pulse Oximetry 97 97 98 Oxygen Delivery Method Room Air Room Air Room Air BMI result Body Mass Index 37.8 Vital signs have been reviewed and appear to be correct. Blood pressure elevated. Heart rate normal. Respiratory rate normal. Temperature normal. Oxygen saturation normal. Appearance: Alert. Oriented X3. No acute distress. Head: Normal external exam. Normocephalic. Atraumatic. No Braswell signs noted. No raccoon eyes noted Eyes: PERRLA. EOMI. Conjunctiva and sclera normal. Eyelids normal. ENT: TM's Normal. Pharynx normal. Uvula midline. Moist mucous membranes. No trismus noted. No drooling noted. No muffled voice noted. Neck: Normal inspection. Neck supple. FROM. No adenopathy. Thyroid Normal. No meningeal signs. No neck mass noted. CVS: Normal heart rate and rhythm. Heart sound normal. No murmurs noted. Pulses normal throughout. Respiratory: No respiratory distress. Painless inspiration. Breath sounds normal. No wheezes/rales/rhonchi noted. Chest nontender. No accessory muscle usage noted or decreased air movement noted. Abdomen: Soft and nontender. Bowel sounds normal in all 4 quadrants. No distention noted. No organomegaly noted. No visible injury noted. Back: No CVA tenderness. Full range of motion noted. Skin: Skin warm and dry. Normal skin color. Normal skin turgor. No rashes/lesions/lacerations noted. Extremities: No lower extremity edema. Extremities exhibit normal range of motion. Extremities nontender. Neuro: Oriented X 3. Cranial nerve exam: II-XII are grossly intact No motor deficit. No sensory deficit. Reflexes normal. Course Course Course Narrative: RME- 73 year old female presents for evaluation of diarrhea for the last 3 weeks. Per the patient's daughter, the patient has had a UTI 3-4 weeks ago and was given antibiotics to treat this. She has had diarrhea ever since. Plan for labs, viral swabs, UA and C diff testing Reevaluation(s) Reevaluation #1: CT abdomen pelvis is unremarkable for acute intra abdominal pathology, physical exam showed no tenderness, there is a mild UTI since the patient developed severe mental status change and confusion when she developed UTI will start the patient on cefuroxime, unable to give stool sample in the ED family was instructed to collect stool with the next bowel movement and notify her PCP. No sign of dehydration, patient is showing no acute distress or acute illness will discharge to follow-up with PCP. Time: 20:57 Medical Decision Making Differential Diagnosis Differential Diagnoses: The differential diagnosis associated with the presentation includes ( Colitis, diverticulitis, acute cholecystitis, kidney stone, QUIN, pyelonephritis, UTI, electrolyte derangement, dehydration, C diff.) Admission/Observation Consideration of admission/observation: Escalation of care including admission/observation considered Lab Data [facility] Lab Attestation statement: I reviewed the patient's lab results. 09/09/23 16:03 09/09/23 16:03 Labs: Lab Results 09/09/23 Range/Units 16:03 WBC 12.1 H (4.8-10.8) X10*3/uL RBC 4.49 (4.20-5.50) X10*6/uL Hgb 12.9 (12.0-16.0) g/dl Hct 39.5 (37.0-47.0) % MCV 88.0 (80.0-98.0) fL MCH 28.7 (27.0-33.0) pg MCHC 32.7 (31.0-35.0) g/dl RDW 15.4 (11.0-16.0) % Plt Count 480 H D (160-400) X10*3/uL MPV 9.8 (9.4-12.3) fL Immature Gran % (Auto) 0.3 (0.0-0.4) % Neut % (Auto) 64.4 (45-73) % Lymph % (Auto) 28.9 (20-40) % [place] % (Auto) 5.2 (2-11) % Eos % (Auto) 0.7 (0-4) % Baso % (Auto) 0.5 (0-2) % Lymph # (Auto) 3.5 (1.2-4.9) X10*3/uL [place] # (Auto) 0.6 (0.1-1.2) X10*3/uL Eos # (Auto) 0.1 (0.0-0.4) X10*3/uL Baso # (Auto) 0.1 (0.0-0.2) X10*3/uL Abs Immat Gran (auto) 0.04 H (0.00-0.03) X10*3/uL Absolute Neuts (auto) 7.8 (2.0-8.3) x10*3/uL Absolute Nucleated RBC 0.000 (0.0-0.012) X10*3/uL Nucleated RBC % (auto) 0.0 (0.0-0.2) /100WBC Sodium 139 (135-145) mmol/L Potassium 4.0 (3.3-5.1) mmol/L Chloride 108 (96-108) mmol/L Carbon Dioxide 20 L (22-29) mmol/L Anion Gap 15 (12-20) BUN 18 H (9-16) mg/dL Creatinine 1.40 (0.5-1.4) mg/dL Estim Creat Clear Calc 30.0 Estimated GFR 37 Random Glucose 101 (60-115) mg/dL Calcium 10.0 (8.4-10.2) mg/dL Total Bilirubin 0.3 (0.0-1.0) mg/dL AST 16 (5-31) U/L ALT 18 (0-31) U/L Alkaline Phosphatase 78 (39-117) U/L Total Protein 7.7 (6.5-8.0) g/dL Albumin 4.3 (3.5-5.0) g/dL Lipase 21 (8-78) U/L Urine Color Yellow Urine Appearance Clear Urine pH 6.0 (5.0-9.0) Ur Specific [place] 1.010 (1.005-1.025) Urine Protein Negative (Neg-Trace) mg/dL Urine Glucose (UA) Negative (Negative) mg/dL Urine Ketones Negative (Negative) mg/dL Urine Blood Negative (Negative) Urine Nitrite Negative (Negative) Ur Leukocyte Esterase Small (1+) H (Negative) Urine RBC 0-2 (0-2) /HPF Urine WBC 6-10 H (0-5) /HPF Ur Squamous Epith Cells 0-2 (0-2) /HPF Urine Bacteria None Seen (None Seen) Hyaline Casts 3-5 (0-2) /LPF Influenza Type A (PCR) NEGATIVE (Negative) Influenza Type B (PCR) NEGATIVE (Negative) RSV RNA Qual (PCR) NEGATIVE (Negative) SARS-CoV-2 RNA (RT-PCR) NEGATIVE (Negative) Independent Interpretation I performed an independent interpretation of an: CT Scan ( abdomen pelvis:Chronic appearing and postoperative changes as described. I do not appreciate any acute intra-abdominal process. ) Radiology Impression Discussion of test interpretation with radiology: I have reviewed the radiologist's reading. Chronic Conditions Patient?s care impacted by: Other ( UTI) Discharge Plan Discharge Clinical Impression: Abdominal pain, Acute UTI Patient Disposition: Home, Self-Care Instructions: Urinary Tract Infection in Women (DC) Prescriptions: New cefuroxime axetil 250 mg tablet 250 mg PO BID Qty: 14 0RF No Action (DME) incontinence pad, liner, disp Pad See Rx Instructions .Route Qty: 400 3RF Rx Instructions: As directed (DME) Briefs, Adult-Extra Large Misc See Rx Instructions .Route Qty: 200 3RF Rx Instructions: As directed acetaminophen 325 mg tablet 325 mg PO Q6H PRN (Reason: pain) 30 Days Qty: 120 3RF omeprazole 20 mg capsule,delayed release(DR/EC) 20 mg PO DAILY 90 Days Qty: 90 1RF gabapentin 800 mg tablet 800 mg PO TID 90 Days Qty: 270 1RF cyclobenzaprine 5 mg tablet 10 mg PO TID PRN (Reason: for muscle spasm) Qty: 180 3RF cholecalciferol (vitamin D3) [Vitamin D3] 50 mcg (2,000 unit) Tablet 50 mcg PO DAILY Qty: 90 4RF trazodone 100 mg tablet 200 mg PO BEDTIME 90 Days Qty: 180 1RF memantine 28 mg capsule,sprinkle,ER 24hr 28 mg PO DAILY 30 Days Qty: 30 6RF oseltamivir [Tamiflu] 75 mg capsule 75 mg PO BID 5 Days Qty: 10 0RF mirtazapine [Remeron] 15 mg tablet 15 mg PO BEDTIME 30 Days Qty: 30 6RF albuterol sulfate 90 mcg/actuation HFA aerosol inhaler 1 puff PO QID PRN (Reason: Shortness Of Breath) Qty: 8.5 0RF metoprolol tartrate 50 mg tablet 50 mg PO BID Qty: 180 1RF dicyclomine 10 mg capsule 20 mg PO QID 30 Days Qty: 240 3RF oxycodone 10 mg tablet 10 mg PO Q8H 28 Days Qty: 84 0RF Rx Instructions: Cancer related pain- sulfamethoxazole-trimethoprim [Bactrim DS] 800-160 mg tablet 1 tab PO Q12H 10 Days Qty: 20 0RF letrozole 2.5 mg tablet 2.5 mg PO DAILY furosemide [Lasix] 20 mg tablet 20 mg PO DAILY 30 Days Qty: 30 1RF Rx Instructions: Take 1 tablet daily as needed for lower leg swelling (DME) nebulizers [AeroEclipse II Nebulizer] Misc See Rx Instructions .Route Qty: 1 0RF Rx Instructions: As directed albuterol sulfate 2.5 mg /3 mL (0.083 %) solution for nebulization 2.5 mg inhalation Q6H PRN (Reason: shortness of breath or wheezing) 30 Days Qty: 360 1RF glyburide 1.25 mg tablet 1.25 mg PO DAILY 60 Days Qty: 60 1RF (DME) FreeStyle Lite Strips Strip See Rx Instructions .ROUTE .MEDSUPPLY Qty: 100 3RF Rx Instructions: As directed (DME) blood-glucose meter [FreeStyle Lite Meter] Kit See Rx Instructions .ROUTE .MEDSUPPLY Qty: 1 0RF Rx Instructions: As directed (DME) lancets [FreeStyle Lancets] 28 gauge misc See Rx Instructions .ROUTE .MEDSUPPLY Qty: 100 3RF Rx Instructions: As directed (DME) Blood Pressure Cuff Misc See Rx Instructions .ROUTE .MEDSUPPLY Qty: 1 0RF Rx Instructions: As directed atorvastatin 20 mg tablet 20 mg PO BEDTIME Qty: 90 1RF Eliquis 5 mg tablet 5 mg PO BID amlodipine 10 mg tablet 10 mg PO DAILY amitriptyline 10 mg tablet PO (DME) nebulizers Misc See Rx Instructions .Route Rx Instructions: As directed fluticasone furoate-vilanterol [Breo Ellipta] 200-25 mcg/dose blister with device 1 inh inhalation DAILY 30 Days Qty: 60 11RF escitalopram oxalate 5 mg tablet 5 mg PO DAILY 30 Days Qty: 30 3RF Print Language: Bulgarian
[2023-09-09 14:42] VITALS: BP 180/93; PULSE 71; RESP 20; TEMP 36.2; O2SAT 97; BMI 37.8
--- NOTE | 2023-09-09 14:43 | ECG_ITS ---
Test Reason : WEAKNESS Blood Pressure : / mmHG Vent. Rate : 075 BPM Atrial Rate : 075 BPM P-R Int : 124 ms QRS Dur : 078 ms QT Int : 410 ms P-R-T Axes : 045 -33 006 degrees QTc Int : 457 ms Sinus rhythm with Premature atrial complexes Left axis deviation Minimal voltage criteria for LVH, may be normal variant ( R in aVL ) Abnormal ECG When compared with ECG of 15-FEB-2023 12:44, Premature atrial complexes are now Present Referred By: Elvis Cottrell Electronically Signed By:AVE JIMENEZ
[2023-09-09 16:10] LABS: MANUAL DIFF FLAG NO
[2023-09-09 16:13] LABS: Appearance Urine Clear; Basophils Absolute Auto 0.1 X10*3/uL (0.0-0.2); Basophils Percent Auto 0.5 % (0-2); Color Urine Yellow; Eosinophils Absolute Auto 0.1 X10*3/uL (0.0-0.4); Eosinophils Percent Auto 0.7 % (0-4); Glucose Urine UA Negative (Negative); Hematocrit 39.5 % (37.0-47.0); Hemoglobin 12.9 g/dl (12.0-16.0); Imm Gran Abs Auto 0.04 X10*3/uL (0.00-0.03); Imm Gran Pct Auto 0.3 % (0.0-0.4); Leukocyte Esterase Urine Small (1+) (Negative); Lymphocytes Absolute Auto 3.5 X10*3/uL (1.2-4.9); Lymphocytes Percent Auto 28.9 % (20-40); Mean Corpuscular HGB Conc 32.7 g/dl (31.0-35.0); Mean Corpuscular Hemoglobin 28.7 pg (27.0-33.0); Mean Platelet Volume 9.8 fL (9.4-12.3); Monocytes Absolute Auto 0.6 X10*3/uL (0.1-1.2); Monocytes Percent Auto 5.2 % (2-11); Neutrophils Absolute Auto 7.8 x10*3/uL (2.0-8.3); Neutrophils Percent Auto 64.4 % (45-73); Nitrite Urine Negative (Negative); Platelet Count 480 X10*3/uL (160-400); Red Blood Count 4.49 X10*6/uL (4.20-5.50); Red Cell Distribution Width 15.4 % (11.0-16.0); UMIC TRIGGER UACC YES; Urine Blood Negative (Negative); Urine Ketones Negative (Negative); Urine Protein Negative (Neg-Trace); White Blood Count 12.1 X10*3/uL (4.8-10.8)
[2023-09-09 16:22] LABS: Bacteria Urine None Seen (None Seen); RBC Urine 0-2 /HPF (0-2); Squamous Epithelial Cell Urine 0-2 /HPF (0-2); UACC Culture Trigger YES
[2023-09-09 16:33] LABS: Alanine Aminotransferase 18 U/L (0-31); Albumin Level 4.3 g/dL (3.5-5.0); Alkaline Phosphatase 78 U/L (39-117); Anion Gap 15 (12-20); Aspartate Amino Transferase 16 U/L (5-31); Bilirubin Total 0.3 mg/dL (0.0-1.0); Blood Urea Nitrogen 18 mg/dL (9-16); Carbon Dioxide 20 mmol/L (22-29); Chloride 108 mmol/L (96-108); Estimated Glomerular Filt Rate 37; Glucose Random 101 mg/dL (60-115); Lipase 21 U/L (8-78); Sodium 139 mmol/L (135-145); Total Protein 7.7 g/dL (6.5-8.0)
[2023-09-09 16:50] LABS: Influenza A PCR NEGATIVE (Negative); Influenza B PCR NEGATIVE (Negative); Resp Syncy Virus RNA Qual PCR NEGATIVE (Negative); SARS COV2 PCR INHOUSE NEGATIVE (Negative)
[2023-09-09 17:41] VITALS: BP 147/127; PULSE 63; RESP 16; TEMP 36.4; O2SAT 97
[2023-09-09 19:57] VITALS: BP 153/75; PULSE 65; RESP 16; TEMP 36.4; O2SAT 98
[2023-09-09] MEDS: cefuroxime axetiL 250 MG TABLET PO (21:12)
[2023-09-09 21:21] VITALS: BP 118/87; PULSE 96; RESP 16; TEMP 36.6; O2SAT 98
== END 2023-09-09 21:22 | disposition home or self-care (01) ==
PROVIDERS: Physician Assistant; Emergency Provider Emergency Medicine; PCP Physician Assistant
DX: R10.9 Unspecified abdominal pain (principal); N39.0 Urinary tract infection, site not specified; R19.7 Diarrhea, unspecified; E13.9 Other specified diabetes mellitus without complications; I10 Essential (primary) hypertension; Z03.818 Encounter for observation for suspected exposure to other biological agents ruled out
CPT/HCPCS: 0241U; 36415; 74176; 80053; 81001; 83690; 85025; 87086; 93005; 99284

== ENCOUNTER → 2023-09-09 14:43 | Outpatient (BNV) | payer OTHER, SELFPAY | PROVIDERS: Emergency Provider Emergency Medicine; PCP Physician Assistant; Visit Provider Internal Medicine | DX: I49.1 Atrial premature depolarization (principal); R53.1 Weakness | CPT/HCPCS: 93010 ==

== ENCOUNTER 2023-09-19 09:28 | Outpatient (AMB) | payer OTHER, SELFPAY ==
[2023-09-19 09:30] VITALS: BP 142/76; PULSE 57; O2SAT 99; BMI 39.2
--- NOTE | 2023-09-19 09:30 | MHC.PC.OV ---
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 Required: No Accompanied by: Daughter Allergies No Known Allergies [No Known Allergies*] Allergy (Verified 09/19/23 10:12) Medication List - Last Reconciled 09/19/23 by Milan Mcgraw PA-C acetaminophen 325 mg PO Q6H PRN 30 days albuterol sulfate 90 mcg/actuation 1 puff PO QID PRN albuterol sulfate 2.5 mg (3 mL) inhalation Q6H PRN 30 days amitriptyline mg PO amlodipine 10 mg PO DAILY apixaban (Eliquis) 5 mg PO BID atorvastatin 20 mg PO BEDTIME blood sugar diagnostic (FreeStyle Lite Strips) As directed blood-glucose meter (FreeStyle Lite Meter kit) As directed cefuroxime axetil 250 mg PO BID cholecalciferol (vitamin D3) (Vitamin D3) 50 mcg PO DAILY cyclobenzaprine 10 mg (2 x 5 mg) PO TID PRN diaper,brief,adult,disposable (Briefs, Adult-Extra Large) As directed dicyclomine 20 mg (2 x 10 mg) PO QID 30 days escitalopram oxalate 5 mg PO DAILY 30 days fluticasone furoate-vilanterol 200-25 mcg/dose (Breo Ellipta) 1 inh inhalation DAILY 30 days furosemide (Lasix) 20 mg PO DAILY 30 days gabapentin 800 mg PO TID 90 days glyburide 1.25 mg PO DAILY 60 days incontinence pad, liner, disp As directed lancets (FreeStyle Lancets) As directed letrozole 2.5 mg PO DAILY memantine 28 mg PO DAILY 30 days metoprolol tartrate 50 mg PO BID mirtazapine (Remeron) 15 mg PO BEDTIME 30 days miscellaneous medical supply (Blood Pressure Cuff) As directed nebulizers (AeroEclipse II Nebulizer) As directed nebulizers As directed omeprazole 20 mg PO DAILY 90 days oseltamivir (Tamiflu) 75 mg PO BID 5 days oxycodone 10 mg PO Q8H 28 days sulfamethoxazole-trimethoprim 800-160 mg (Bactrim DS) 1 tab PO Q12H 10 days trazodone 200 mg (2 x 100 mg) PO BEDTIME 90 days Tobacco use date assessed: 06/18/23 Dental Screening Dental Screen Date: 06/18/23 HPI Follow up HPI Details Patient is a 73-year-old female here today for follow-up visit. She is [place]ish-speaking only thus used a roving carrier. Patient's past medical history significant for type 2 diabetes, chronic lumbar spine pain, history of breast cancer and is status post bilateral total mastectomy, DVT and bilateral pulmonary embolism(now on Eliquis) major depressive disorder, mild cognitive impairment. --Concern> recently treated for UTI with antibiotics. Her altered mental status has cleared. Family does note she still does complain about dysuria. Urinalysis today continues to show leukocytes. .. DMII: Patient's type 2 diabetes fairly controlled on current dose of metformin. . . Obstructive sleep/ Pulmonary embolism/nocturnal hypoxemia: Followed by pulmonology, unable to repeat CT chest. Continues on Eliquis indefinitely. Denies any overt signs of bleeding. . Breast cancer: Is status post bilateral total mastectomy, recently had cyst biopsy which did show recurrent carcinoma. She continues on pain management with oxycodone 10 mg t.i.d. for cancer related pain. She is now seeing Oncology at [facility]. Family is reporting that Oncology is recommending higher dose of narcotic pain medication for her cancer related pain. PLAN: Will wait documentation from Oncology to make the change in pain medication dose. . Mild cognitive impairment/hallucinations: Has been seen by Neurology due to her cognitive decline and has been started on memantine. Has been started on CPAP machine at night. Brain MRI in November of 2022 showing chronic age-related changes. .. 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 Depression Arthritis IBS (irritable bowel syndrome) GERD (gastroesophageal reflux disease) Recurrent malignant neoplasm of 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, managed as type 2 HTN (hypertension) Traumatic complete tear of right rotator cuff Surgical History History of excision of lesion (05/30/23) S/P bilateral mastectomy History of bilateral mastectomy (02/19/22) Hx of cholecystectomy Hx of appendectomy Hx of blepharoplasty History of esophagogastroduodenoscopy (EGD) History of lumpectomy of both breasts History of surgery History of colonoscopy S/P ANDRÉS-BSO (total abdominal hysterectomy and bilateral salpingo-oophorectomy) History of lumbar fusion Family History Father Heart problem Mother Heart disease Hypertension Colon cancer Epilepsy Maternal Grandmother Esophageal cancer Daughter Breast cancer Brother Lung cancer Sister Breast cancer Sister Breast cancer, Onset Age: 60 Sister COVID Daughter Acute kidney failure Social History Household Members: None Housing: House Are you a primary skin care consultant to a significant other at home: No Do you presently have visiting nurse or other home services: No (granddaughter Sharla helps take care of her) Alcohol intake: never Comment: counts correct Patient Tobacco Use Status: Never used Tobacco e-Cigarette/Vaping Use: Never Used Second Hand Smoke Exposure: No Advance Directives Date on File: 06/13/23 service: No Current occupational status: disabled 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) Hearing needs: No Vision needs: Yes Female Reproductive History Menstrual Age of Menarche: 9 Questionnaire Thrive Questionnaire Date Thrive assessed: 06/18/23 OLAYINKA-7 AMB Questionnaire OLAYINKA-7 Date OLAYINKA - 7 assessed: 06/18/23 Source: Developed by Drs. Chinedu Romero, Rosemarie Ballard, Mina Lanier and colleagues, with an educational luis fernando from [employer]. Review of Systems Const Denies headache(s) Eyes Denies loss of vision ENT Denies vertigo, Denies dizziness, Denies headache(s) and Denies sore throat Card Denies chest pain, Denies leg edema and Denies lightheadedness Resp Denies cough, Denies hemoptysis and Denies wheezing GI Denies abdominal pain, Denies melena, Denies constipation, Denies diarrhea and Denies vomiting Denies urinary frequency, Denies dysuria and Denies urinary urgency Musc Denies arthralgias, Denies joint swelling, Denies numbness and Denies tingling Neuro Denies Abnormal speech present, Denies behavioral changes, Denies vertigo, Denies dizziness, Denies headache(s), Denies loss of vision, Denies memory loss, Denies numbness and Denies tingling Psych Denies anxiety, Denies behavioral changes, Denies depression, Denies memory loss and Denies panic attacks Neo/Lymph Denies easy bleeding and Denies easy bruising Aller/Immun Denies wheezing Physical exam (Primary Care) Vital Signs: Last Vital Signs Pulse 57 09/19/23 09:30 BP 142/76 H 09/19/23 09:30 Pulse Ox 99 09/19/23 09:30 Oxygen Delivery Method Room Air 09/19/23 09:30 BMI result Body Mass Index 39.2 Tobacco/Smoking Status: Tobacco use Status Tobacco use date assessed 06/18/23 09/19/23 09:31 Patient Tobacco Use Status Never used Tobacco 09/19/23 09:31 e-Cigarette/Vaping Use Never Used 09/19/23 09:31 Thrive Assessment: Date of Thrive Assessment Date Thrive assessed 06/18/23 09/19/23 09:31 Const General: healthy appearing, no acute distress, alert and awake Nutritional Appearance: well nourished Orientation/consciousness: oriented to person, oriented to place and oriented to time HENMT Ears: TM's normal bilaterally General nose exam: Normal nasal mucous membranes and turbinates present Eyes Conjunctivae: conjunctivae normal Sclerae: sclerae normal Pupils: Equal, round and reactive pupils present Neck Neck: Yes no lymphadenopathy and Yes no JVD Thyroid: Thyroid normal Carotids: no bruits Chest Other: BILATERAL MASTECTOMIES NOTED Resp Effort & Inspection: normal respiratory effort and not tachypneic Auscultation: no crackles, no rales, no rhonchi and no wheezes Cardio Rate: regular rate Rhythm: regular rhythm Heart sounds: no murmurs and normal S1 and S2 GI Palpation (GI): Soft to palpation, nontender, no hepatomegaly and no splenomegaly Auscultation: normal bowel sounds Skin General skin exam: no rashes or lesions noted and dry skin Neuro General: oriented to person, oriented to place and oriented to time Cranial nerves: Yes Equal, round and reactive pupils present Speech: No Abnormal speech present Gait exam (Neuro): Normal gait present Motor exam (neuro): no tremor noted Extrem Right upper extremity: full ROM Left upper extremity: full ROM Right lower extremity: full ROM; no edema Left lower extremity: full ROM; no edema Psych Mental Status: mental status grossly normal Speech and movement: Normal speech and movement present Affect: normal affect Attitude: cooperative Thought process: Normal thought process present Results AMB Urinalysis, Automated UA Leukoctes 500 Marija/uL Last Edit by AR Crump on 09/19/23 09:54 UA Nitrite Negative Last Edit by AR Crump on 09/19/23 09:54 UA Urobilinogen 0 mg/dL Last Edit by AR Crump on 09/19/23 09:54 UA Protein 0 mg/dL Last Edit by RA Crump on 09/19/23 09:54 UA pH 5.5 Last Edit by AR Crump on 09/19/23 09:54 UA Blood 10 Min/uL Last Edit by AR Crump on 09/19/23 09:54 UA Specific [place] 1.020 Last Edit by AR Crump on 09/19/23 09:54 UA Ketone Negative Last Edit by AR Crump on 09/19/23 09:54 UA Bilirubin 0 mg/dL Last Edit by AR Crump on 09/19/23 09:54 UA Glucose 0 mg/dL Last Edit by AR Crump on 09/19/23 09:54 Results Reviewed Results Reviewed: Laboratory Last Values Urine pH (Auto) 5.5 09/19/23 09:53 Specific [place] (Auto) 1.020 09/19/23 09:53 Urine Protein (Auto) 0 mg/dL 09/19/23 09:53 Glucose (UA)(Auto) 0 mg/dL 09/19/23 09:53 Urine Ketones (Auto) Negative 09/19/23 09:53 Urine Blood (Auto) 10 Min/uL 09/19/23 09:53 Urine Nitrite (Auto) Negative 09/19/23 09:53 Urine Bilirubin (Auto) 0 mg/dL 09/19/23 09:53 Urine Urobilinogen (Auto) 0 mg/dL 09/19/23 09:53 Leukocyte Esterase (Auto) 500 Marija/uL 09/19/23 09:53 Assessment and Plan Assessment & Plan (1) DMII (diabetes mellitus, type 2): Code(s): E11.9 - Type 2 diabetes mellitus without complications Qualifiers: Diabetes mellitus complication status: with hyperglycemia Diabetes mellitus long term acute care registered nurse insulin use: without long term acute care registered nurse use Qualified Code(s): E11.65 - Type 2 diabetes mellitus with hyperglycemia Plan: Patient's type 2 diabetes well controlled, most recent A1c is 6.2. Will continue current dose of antihyperglycemic medication. Goal A1c is to remain below 7.0 (2) Pulmonary emboli: Code(s): I26.99 - Other pulmonary embolism without acute cor pulmonale Qualifiers: Pulmonary embolism type: multiple subsegmental (without acute cor pulmonale) Qualified Code(s): I26.94 - Multiple subsegmental pulmonary emboli without acute cor pulmonale Plan: Patient had bilateral pulmonary embolism and DVT . Now continues on Eliquis 5 mg b.i.d without overt signs of bleeding.. Family believes pulmonary emboli directly related to cancer treatment med (tamoxifen) (3) HTN (hypertension): Code(s): I10 - Essential (primary) hypertension Qualifiers: Hypertension type: essential hypertension Qualified Code(s): I10 - Essential (primary) hypertension Plan: Blood pressure acceptable today in office. Will continue her current dose of antihypertensive medication with goal blood pressure to remain below 140/90 (4) Recurrent cancer of right breast: Code(s): C50.911 - Malignant neoplasm of unspecified site of right female breast Plan: Unfortunately seems her breast cancer has recurred. Recent biopsy showing primary breast carcinoma. She is status post bilateral mastectomy. She has oncologist at [facility] (Dr Torres). (5) MDD (major depressive disorder), recurrent episode, moderate: Code(s): F33.1 - Major depressive disorder, recurrent, moderate Plan: Patient's PHQ-9 score positive for depression which has been existing condition for her. Depression seems to be worsening due to her worsening medical conditions. She continues on SSRI therapy. Not interested in mental health therapy at this time. (6) Weakness of lower extremity: Code(s): R29.898 - Other symptoms and signs involving the musculoskeletal system Qualifiers: Laterality: bilateral Qualified Code(s): R29.898 - Other symptoms and signs involving the musculoskeletal system Plan: Patient does have history of lower lumbar spine arthritis. She continues to have lower extremity weakness and would likely benefit from physical therapy for balance training and lower extremity strengthening. Family interested in getting patient a manual wheelchair to help with transportation to medical appointments. Orders: Orders PT Evaluation and Treatment 09/19/23 R29.898 - Other symptoms and signs involving the musculoskeletal system AMB Urinalysis Automated 09/19/23 R30.0 - Dysuria Urine Culture 09/19/23 R30.0 - Dysuria Medications: New cyclobenzaprine 10 mg PO TID 30 days 90 tabs 3RF G95.9 - Disease of spinal cord, unspecified, M54.12 - Radiculopathy, cervical region chair, wheel (Wheel chair) As directed 1 ea 0RF R29.898 - Other symptoms and signs involving the musculoskeletal system Refilled cefuroxime axetil 250 mg PO BID 14 tabs 0RF R35.0 - Frequency of micturition Discontinued cyclobenzaprine Discontinued Reason: Doctor's Order 10 mg (2 x 5 mg) PO TID PRN 180 tabs 3RF for muscle spasm M96.1 - Postlaminectomy syndrome, not elsewhere classified oseltamivir (Tamiflu) Discontinued Reason: Doctor's Order 75 mg PO BID 5 days 10 caps 0RF J10.1 - Influenza due to other identified influenza virus with other respiratory manifestations sulfamethoxazole-trimethoprim 800-160 mg (Bactrim DS) Discontinued Reason: Doctor's Order 1 tab PO Q12H 10 days 20 tabs 0RF UTI Coding Level of Care Code Est Pt Level 4 (22180) Diagnoses Type 2 diabetes mellitus with hyperglycemia, without long-term current use of insulin E11.65 Diabetes mellitus complication status: with hyperglycemia Diabetes mellitus long term acute care registered nurse insulin use: without jail use Multiple subsegmental pulmonary emboli without acute cor pulmonale I26.94 Pulmonary embolism type: multiple subsegmental (without acute cor pulmonale) Essential hypertension I10 Hypertension type: essential hypertension Recurrent cancer of right breast C50.911 MDD (major depressive disorder), recurrent episode, moderate F33.1 Weakness of both lower extremities R29.898 Laterality: bilateral
== END 2023-09-19 10:38 | disposition home or self-care (01) ==
PROVIDERS: PCP Physician Assistant; Visit Provider Physician Assistant
DX: R30.0 Dysuria (principal)
CPT/HCPCS: 81003; 99214

== ENCOUNTER 2023-09-19 18:24 | Outpatient (REF) | payer OTHER, SELFPAY | END 2023-09-19 18:25 | disposition home or self-care (01) | LOC: HO.LNP 18:24 | PROVIDERS: Visit Provider Physician Assistant | DX: R30.0 Dysuria (principal) | CPT/HCPCS: 87086 ==

== ENCOUNTER 2023-10-28 13:04 | Outpatient (AMB) | payer OTHER, SELFPAY ==
[2023-10-28 13:10] VITALS: BP 140/82; PULSE 68; BMI 39.8
--- NOTE | 2023-10-28 13:10 | MHC.OFFVIS ---
Vital Signs 10/28/23 13:10 Height 4 ft 9 in Weight 183 lb 13.848 oz BMI 39.8 BP 140/82 H Blood Pressure Location Lt brachial Position Sitting Pulse 68 Pulse Source Pulse Oximeter Intake Visit Reasons: 6 mth fu Partner Integration Planner Required: No Director Of Strategic Sourcing: Director Of Strategic Sourcing Present Allergies No Known Allergies [No Known Allergies*] Allergy (Verified 10/28/23 13:16) Medication List - Last Reconciled 10/28/23 by MATILDE Kim acetaminophen 325 mg PO Q6H PRN 30 days albuterol sulfate 90 mcg/actuation 1 puff PO QID PRN albuterol sulfate 2.5 mg (3 mL) inhalation Q6H PRN 30 days amitriptyline mg PO amlodipine 10 mg PO DAILY apixaban (Eliquis) 5 mg PO BID 90 days atorvastatin 20 mg PO BEDTIME blood sugar diagnostic (FreeStyle Lite Strips) As directed blood-glucose meter (FreeStyle Lite Meter kit) As directed cefuroxime axetil 250 mg PO BID chair, wheel (Wheel chair) As directed cholecalciferol (vitamin D3) (Vitamin D3) 50 mcg PO DAILY cyclobenzaprine 10 mg PO TID 30 days diaper,brief,adult,disposable (Briefs, Adult-Extra Large) As directed dicyclomine 20 mg (2 x 10 mg) PO QID 30 days escitalopram oxalate 5 mg PO DAILY 30 days fluticasone furoate-vilanterol 200-25 mcg/dose (Breo Ellipta) 1 inh inhalation DAILY 30 days furosemide (Lasix) 20 mg PO DAILY 30 days gabapentin 800 mg PO TID 90 days glyburide 1.25 mg PO DAILY 60 days incontinence pad, liner, disp As directed lancets (FreeStyle Lancets) As directed letrozole 2.5 mg PO DAILY memantine 28 mg PO DAILY 30 days metoprolol tartrate 50 mg PO BID mirtazapine (Remeron) 15 mg PO BEDTIME 30 days miscellaneous medical supply (Blood Pressure Cuff) As directed nebulizers (AeroEclipse II Nebulizer) As directed nebulizers As directed omeprazole 20 mg PO DAILY 90 days oxycodone 10 mg PO Q8H 28 days trazodone 200 mg (2 x 100 mg) PO BEDTIME 90 days HPI HPI 6 mth fu: Details: Beatriz is a 73-year-old female with past medical history of hypertension, diabetes, morbid obesity who was admitted to [facility] 12/2022 with shortness of breath and leg edema and found to have left leg DVT and bilateral pulmonary embolism, she ruled in for secondary NSTEMI and was managed medically. Echocardiogram did not show RV strain. Today she reports that she has been doing well since her last visit in March. She denies any concerning sob, no PND, orthopnea or edema. No chest discomfort at rest or with activity. No heart palpitations, presyncope, syncope, falls. Ambulates with a cane. Taking meds as directed. No bleeding issues reported with Eliquis use. Son is present and assisting with [place] interpretation at their request. Permit signed. 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 Depression Arthritis IBS (irritable bowel syndrome) GERD (gastroesophageal reflux disease) Recurrent malignant neoplasm of 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, managed as type 2 HTN (hypertension) Traumatic complete tear of right rotator cuff Surgical History Hx of excision of mass (08/14/23) History of excision of lesion (05/30/23) S/P bilateral mastectomy History of bilateral mastectomy (02/19/22) Hx of cholecystectomy Hx of appendectomy Hx of blepharoplasty History of esophagogastroduodenoscopy (EGD) History of lumpectomy of both breasts History of surgery History of colonoscopy S/P ANDRÉS-BSO (total abdominal hysterectomy and bilateral salpingo-oophorectomy) History of lumbar fusion Family History Father Heart problem Mother Heart disease Hypertension Colon cancer Epilepsy Maternal Grandmother Esophageal cancer Daughter Breast cancer Brother Lung cancer Sister Breast cancer Sister Breast cancer, Onset Age: 60 Sister COVID Daughter Acute kidney failure Social History Household Members: None Housing: House Are you a primary care director rn to a significant other at home: No Do you presently have visiting nurse or other home services: No (granddaughter Sharla helps take care of her) Alcohol intake: never Comment: counts correct Patient Tobacco Use Status: Never used Tobacco e-Cigarette/Vaping Use: Never Used Second Hand Smoke Exposure: No Advance Directives Date on File: 06/13/23 service: No Current occupational status: disabled 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) Hearing needs: No Vision needs: Yes Female Reproductive History Menstrual Age of Menarche: 9 Review of Systems Const All systems reviewed & are unremarkable except as noted in HPI and below ENT Denies dizziness Card Denies chest pain, Denies chest pain at rest, Denies chest pain with activity, Denies rapid heart rate, Denies pedal edema, Denies edema, Denies leg edema, Denies lightheadedness, Denies palpitations, Denies dyspnea on exertion and Denies orthopnea Resp Denies cough and Denies dyspnea on exertion GI Denies hematochezia and Denies change in stool character Musc Denies abnormal gait, Denies limited range of motion, Denies muscle cramps, Denies muscle weakness, Denies numbness, Denies radiating pain into limb, Denies stiffness and Denies tingling Neuro Denies abnormal gait, Denies dizziness, Denies numbness and Denies tingling Endo Denies palpitations Physical Exam Const General: cooperative, comfortable and no acute distress Orientation/consciousness: patient oriented x3 Neck Neck: Yes normal visual inspection and Yes no JVD Chest Other: recent bilateral mastectomy Resp Effort & Inspection: normal respiratory effort Auscultation: clear to auscultation bilaterally, no crackles, no rales, no rhonchi and no wheezes Cardio Jugular venous distension: no JVD Rate: regular rate Rhythm: regular rhythm Heart sounds: S1 normal heart sound present, S2 normal heart sound present, no murmurs and no rubs Neuro General: patient oriented x3 Extrem Other: Bilateral leg swelling to the mid calf, left greater than right Psych Appearance: grossly normal Mental Status: mental status grossly normal Speech and movement: Normal speech and movement present Assessment & Plan Assessment & Plan (1) Pulmonary emboli: Code(s): I26.99 - Other pulmonary embolism without acute cor pulmonale Category: Medical Qualifiers: Pulmonary embolism type: multiple subsegmental (without acute cor pulmonale) Qualified Code(s): I26.94 - Multiple subsegmental pulmonary emboli without acute cor pulmonale Plan: Finding of pulmonary embolism on CTA done November 2022. She also had lower extremity duplex showing extensive DVT on the left lower extremity. She was started on anticoagulation and discharged with Lovenox which was then changed to Eliquis 5 mg b.i.d. she has not had any bleeding issues. An echocardiogram that was done while inpatient showed normal EF, can not exclude apical inferior hypokinesis, RV normal size, mild decrease in the RV systolic function. She has not had issues with Right heart failure. Today she reports that she has been doing well without sob, orthopnea or edema. She continues on Eliquis which is managed by her PCP. No changes made. Card f/u in 1 year, sooner if needed. Echocardiogram prior to that visit. (2) DVT (deep venous thrombosis): Code(s): I82.409 - Acute embolism and thrombosis of unspecified deep veins of unspecified lower extremity Category: Medical Qualifiers: DVT location: lower extremity Affected thrombotic vein of extremity: unspecified vein of extremity Chronicity: acute Laterality: left Qualified Code(s): I82.402 - Acute embolism and thrombosis of unspecified deep veins of left lower extremity Plan: As above (3) NSTEMI (non-ST elevation myocardial infarction): Code(s): I21.4 - Non-ST elevation (NSTEMI) myocardial infarction Category: Medical Plan: Troponin elevated during last hospital admission for pulmonary embolism/DVT. Troponin as high as 859. No EKG changes of ischemia. No reports of chest discomfort. Echo did show normal EF can not exclude apical inferior hypokinesis, possible technical finding. She was felt to have secondary NSTEMI related to the pulmonary embolism. She had a pharmacological nuclear stress test done on 07/23/23 showing normal myocardial perfusion imaging, EF 62% At this time she still has no reports of chest discomfort. No known history of CAD. Cardiac risk factors of hypertension, diabetes, morbid obesity. Will continue with med management. She is not on aspirin as she is on Eliquis. She is on atorvastatin and metoprolol. Signs of symptoms of angina reviewed with her. ED care if ever needed for symptoms. Plan Time spent on chart review, document, interview, assessment Orders: Orders CA echo transthoracic complete 11 Months I27.20 - Pulmonary hypertension, unspecified, R93.1 - Abnormal findings on diagnostic imaging of heart and coronary circulation Coding Level of Care Code Est Pt Level 3 (30577) Diagnoses Multiple subsegmental pulmonary emboli without acute cor pulmonale I26.94 Pulmonary embolism type: multiple subsegmental (without acute cor pulmonale) Acute deep vein thrombosis (DVT) of left lower extremity, unspecified vein I82.402 DVT location: lower extremity Affected thrombotic vein of extremity: unspecified vein of extremity Chronicity: acute Laterality: left NSTEMI (non-ST elevation myocardial infarction) I21.4 Time Spent (min) 24
== END 2023-10-28 13:36 | disposition home or self-care (01) ==
PROVIDERS: PCP Physician Assistant; Visit Provider Nurse Practitioner Family
DX: I26.94 Multiple subsegmental thrombotic pulmonary emboli without acute cor pulmonale (principal); I82.402 Acute embolism and thrombosis of unspecified deep veins of left lower extremity; I21.4 Non-ST elevation (NSTEMI) myocardial infarction
CPT/HCPCS: 99213

== ENCOUNTER → 2023-10-28 13:04 | Outpatient (BNVA) | payer OTHER, SELFPAY | PROVIDERS: PCP Physician Assistant; Visit Provider Nurse Practitioner Family | DX: I26.94 Multiple subsegmental thrombotic pulmonary emboli without acute cor pulmonale (principal); I82.402 Acute embolism and thrombosis of unspecified deep veins of left lower extremity; I21.4 Non-ST elevation (NSTEMI) myocardial infarction; Z79.01 Long term (current) use of anticoagulants | CPT/HCPCS: 99212 ==

== ENCOUNTER 2023-11-19 10:48 | Outpatient (AMB) | payer OTHER, SELFPAY ==
--- NOTE | 2023-11-19 10:50 | MHC.OFFVIS ---
Vital Signs 11/19/23 11:02 Height 4 ft 9 in Weight 177 lb BMI 38.3 BP 132/81 Blood Pressure Location Lt brachial Position Sitting Pulse 97 Intake Visit Reasons: 6 mth breast exam Intake Note: Patient is seen in office for 6 month follow up visit, breast exam. Pt c/o: still has pain and discomfort with the excess skin near the axilla, would like to have them surgically removed, arms are getting swollen Automotive Refinish Technician Services: Automotive Refinish Technician Present Automotive Refinish Technician Name: Laura BRIAN Information Interpreted: non-clinical & clinical Occupational Health Nurse Supervisor: Occupational Health Nurse Supervisor Present Allergies No Known Allergies [No Known Allergies*] Allergy (Verified 11/19/23 11:03) HPI Comments Details: 73-year-old female patient returning following bilateral mastectomies for a recurrent right breast cancer. 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 Quezada. She noted bilateral palpable lumps on self examination including the 9 o'clock position of the right breast just lateral to the nipple-areolar complex. The lump is tender to palpation. Second area in the upper outer quadrant of the left breast was also identified on self examination. The lesion of the right breast was confirmed on mammogram dated 01/26/2022. Subsequent ultrasound revealed a suspicious density in the right breast in the 9 o'clock position measuring just under 1.5 cm in diameter. Findings were felt to be suspicious for malignancy and biopsy recommended. Ultrasound-guided core biopsy performed on 01/31/2022 at the [facility] revealed invasive carcinoma with mixed lobular and ductal features, grade 2, ER/MI positive, HER2 Smooth negative, Ki-67 30% (high proliferation index). She denies nipple discharge, skin redness, skin dimpling or enlarged lymph nodes. Menarche was at the age of 9. She is and underwent TAHBSO in the 80s. Family history is significant for a daughter, and 2 sisters with breast cancer. At the patient's request she underwent a right modified radical mastectomy and left simple mastectomy. Pathology revealed: A.? Breast, right, modified radical mastectomy: - Invasive carcinoma with ductal and lobular features, MSBR grade 3, 1.4 cm in size; margins negative. - Metastatic carcinoma present in 1 of 4 lymph nodes examined. - Skin with scar; biopsy site changes. - pT1c N1 (AJCC Stage 8th ed.). B.? Breast, left, simple mastectomy: - Lobular carcinoma in-situ; negative for invasive carcinoma. - Background fibrocystic changes, adenosis and calcifications. - Benign skin and nipple. - Three lymph nodes with reactive changes. Patient underwent excision of a melanotic lesion of the right chest wall on 06/04/2023. This revealed recurrent breast cancer. She was evaluated at [facility] [place] and started on letrozole 2.5 mg daily. She subsequently underwent wide excision of this recurrent breast cancer on 08/14/2023. She returns today for postoperative check. She is complaining of bandlike pain across the chest from the incisions and swelling in the arm. Her granddaughter is requesting plastic surgery referral. 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 Depression Arthritis IBS (irritable bowel syndrome) GERD (gastroesophageal reflux disease) Recurrent malignant neoplasm of 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, managed as type 2 HTN (hypertension) Traumatic complete tear of right rotator cuff Surgical History Hx of excision of mass (08/14/23) History of excision of lesion (05/30/23) S/P bilateral mastectomy History of bilateral mastectomy (02/19/22) Hx of cholecystectomy Hx of appendectomy Hx of blepharoplasty History of esophagogastroduodenoscopy (EGD) History of lumpectomy of both breasts History of surgery History of colonoscopy S/P ANDRÉS-BSO (total abdominal hysterectomy and bilateral salpingo-oophorectomy) History of lumbar fusion Family History Father Heart problem Mother Heart disease Hypertension Colon cancer Epilepsy Maternal Grandmother Esophageal cancer Daughter Breast cancer Brother Lung cancer Sister Breast cancer Sister Breast cancer, Onset Age: 60 Sister COVID Daughter Acute kidney failure Social History Household Members: None Housing: House Are you a primary resident care director to a significant other at home: No Do you presently have visiting nurse or other home services: No (granddaughter Sharla helps take care of her) Alcohol intake: never Comment: counts correct Patient Tobacco Use Status: Never used Tobacco e-Cigarette/Vaping Use: Never Used Second Hand Smoke Exposure: No Advance Directives Date on File: 06/13/23 service: No Current occupational status: disabled 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) Hearing needs: No Vision needs: Yes Female Reproductive History Menstrual Age of Menarche: 9 Review of Systems Const All systems reviewed & are unremarkable except as noted in HPI and below Neuro Reports confusion Psych Reports confusion Physical Exam Vital Signs: Last Vital Signs Pulse 97 11/19/23 11:02 BP 132/81 11/19/23 11:02 BMI result Body Mass Index 38.3 Const General: awake and confusion Nutritional Appearance: well nourished Orientation/consciousness: confusion Chest Other: Bilateral breast incisions are clean, dry and intact without any palpable mass or new skin changes. No significant extra skin is noted in the right chest. There is redundant skin in the left chest. Resp Effort & Inspection: normal respiratory effort Skin General skin exam: no rashes or lesions noted Neuro General: confusion Extrem General: Yes edema Assessment & Plan Assessment & Plan (1) Recurrent cancer of right breast: Code(s): C50.911 - Malignant neoplasm of unspecified site of right female breast Category: Medical Plan Bilateral upper extremity lymphedema, mild. Recommended evaluation by OT for lymphedema management. Plastic surgery referral as requested Follow-up in 6 months. Orders: Orders OT Evaluation and Treatment Today I89.0 - Lymphedema, not elsewhere classified Referrals Plastic Surgery Referral C50.911 - Malignant neoplasm of unspecified site of right female breast Coding Level of Care Code Est Pt Level 3 (72820) Diagnoses Recurrent cancer of right breast C50.911
[2023-11-19 11:02] VITALS: BP 132/81; PULSE 97; BMI 38.3
== END 2023-11-19 11:11 | disposition home or self-care (01) ==
PROVIDERS: PCP Physician Assistant; Visit Provider Surgery
DX: C50.911 Malignant neoplasm of unspecified site of right female breast (principal)
CPT/HCPCS: 99213

== ENCOUNTER → 2023-11-19 10:48 | Outpatient (BNVA) | payer OTHER, SELFPAY | PROVIDERS: PCP Physician Assistant; Visit Provider Surgery | DX: L98.7 Excessive and redundant skin and subcutaneous tissue (principal); C50.411 Malignant neoplasm of upper-outer quadrant of right female breast; I89.0 Lymphedema, not elsewhere classified; Z17.0 Estrogen receptor positive status [ER+]; Z90.13 Acquired absence of bilateral breasts and nipples | CPT/HCPCS: 99212 ==

== ENCOUNTER 2023-12-19 11:03 | Outpatient (AMB) | payer OTHER, SELFPAY ==
--- NOTE | 2023-12-19 11:05 | A.OFFPC_ITS ---
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 Production Required: No Accompanied by: Joann-granddaughter Allergies No Known Allergies [No Known Allergies*] Allergy (Verified 12/19/23 11:33) Medication List - Last Reconciled 12/19/23 by Milan Mcgraw PA-C acetaminophen 325 mg PO Q6H PRN 30 days albuterol sulfate 90 mcg/actuation 1 puff PO QID PRN albuterol sulfate 2.5 mg (3 mL) inhalation Q6H PRN 30 days amitriptyline mg PO amlodipine 10 mg PO DAILY apixaban (Eliquis) 5 mg PO BID 90 days atorvastatin 20 mg PO BEDTIME blood sugar diagnostic (FreeStyle Lite Strips) As directed blood-glucose meter (FreeStyle Lite Meter kit) As directed cefuroxime axetil 250 mg PO BID chair, wheel (Wheel chair) As directed cholecalciferol (vitamin D3) (Vitamin D3) 50 mcg PO DAILY cyclobenzaprine 10 mg PO TID 30 days diaper,brief,adult,disposable (Briefs, Adult-Extra Large) As directed dicyclomine 20 mg (2 x 10 mg) PO QID 30 days escitalopram oxalate 5 mg PO DAILY 30 days fluticasone furoate-vilanterol 200-25 mcg/dose (Breo Ellipta) 1 inh inhalation DAILY 30 days furosemide (Lasix) 20 mg PO DAILY 30 days gabapentin 800 mg PO TID 90 days glyburide 1.25 mg PO DAILY 60 days incontinence pad, liner, disp As directed lancets (FreeStyle Lancets) As directed letrozole 2.5 mg PO DAILY memantine 28 mg PO DAILY 30 days metoprolol tartrate 50 mg PO BID mirtazapine (Remeron) 15 mg PO BEDTIME 30 days miscellaneous medical supply (Blood Pressure Cuff) As directed nebulizers (AeroEclipse II Nebulizer) As directed nebulizers As directed omeprazole 20 mg PO DAILY 90 days oxycodone 10 mg PO Q8H 28 days trazodone 200 mg (2 x 100 mg) PO BEDTIME 90 days Tobacco use date assessed: 06/18/23 Fall risk assessment: No Falls in past year Last assessed Fall Risk: 12/19/23 Dental Screening Dental Screen Date: 06/18/23 HPI f/u pain management 2 HPI0 Details Patient is a 73-year-old female here today for follow-up visit. She is [place]- speaking only thus used a lang interpreter. Patient's past medical history significant for type 2 diabetes, chronic lumbar spine pain, history of breast cancer and is status post bilateral total mastectomy, DVT and bilateral pulmonary embolism(now on Eliquis) major depressive disorder, mild cognitive impairment. --Concern> has urinary incontinence and needs in his scripts for her briefs and bed pads. .. DMII: Patient's type 2 diabetes fairly controlled on current dose of metformin. . . Obstructive sleep/ Pulmonary embolism /nocturnal hypoxemia: Followed by pulmonology, unable to repeat CT chest. Continues on Eliquis indefinitely. Denies any overt signs of bleeding. . Breast cancer: Is status post bilateral total mastectomy, recently had cyst biopsy which did show recurrent carcinoma. She continues on pain management with oxycodone 10 mg t.i.d. for cancer related pain. She is now seeing Oncology at [facility]. She is due for bone scan due to concerns of metastasis to bone though fortunately no evidence of metastatic disease.. Unfortunately patient reports continued increased pain in her mastectomy sites along with continued lower lumbar spine and cervical spine pain. Of note previously on fentanyl and higher doses of oxycodone 30 mg. We did discuss increasing oxycodone 15 mg t.i.d. to which patient is agreeable. We did discuss referral back to pain management for pain reduction modalities and patient is considering at this time . 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 Depression Arthritis IBS (irritable bowel syndrome) GERD (gastroesophageal reflux disease) Recurrent malignant neoplasm of 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, managed as type 2 HTN (hypertension) Traumatic complete tear of right rotator cuff Surgical History Hx of excision of mass (08/14/23) History of excision of lesion (05/30/23) S/P bilateral mastectomy History of bilateral mastectomy (02/19/22) Hx of cholecystectomy Hx of appendectomy Hx of blepharoplasty History of esophagogastroduodenoscopy (EGD) History of lumpectomy of both breasts History of surgery History of colonoscopy S/P ANDRÉS-BSO (total abdominal hysterectomy and bilateral salpingo-oophorectomy) History of lumbar fusion Family History Father Heart problem Mother Heart disease Hypertension Colon cancer Epilepsy Maternal Grandmother Esophageal cancer Daughter Breast cancer Brother Lung cancer Sister Breast cancer Sister Breast cancer, Onset Age: 60 Sister COVID Daughter Acute kidney failure Social History Household Members: None Housing: House Are you a primary director long term care to a significant other at home: No Do you presently have visiting nurse or other home services: No (granddaughter Sharla helps take care of her) Alcohol intake: never Comment: counts correct Patient Tobacco Use Status: Never used Tobacco e-Cigarette/Vaping Use: Never Used Second Hand Smoke Exposure: No Advance Directives Date on File: 06/13/23 service: No Current occupational status: disabled 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) Hearing needs: No Vision needs: Yes Female Reproductive History Menstrual Age of Menarche: 9 Questionnaire Thrive Questionnaire Date Thrive assessed: 06/18/23 OLAYINKA-7 AMB Questionnaire OLAYINKA-7 Date OLAYINKA - 7 assessed: 06/18/23 Source: Developed by Drs. Chinedu Romero, Rosemarie Ballard, Mina Lanier and colleagues, with an educational luis fernando from [employer]. Review of Systems Const Denies headache(s) Eyes Denies loss of vision ENT Denies vertigo, Denies dizziness, Denies headache(s) and Denies sore throat Card Denies chest pain, Denies leg edema and Denies lightheadedness Resp Denies cough, Denies hemoptysis and Denies wheezing GI Denies abdominal pain, Denies melena, Denies constipation, Denies diarrhea and Denies vomiting Denies urinary frequency, Denies dysuria and Denies urinary urgency Musc Denies arthralgias, Denies joint swelling, Denies numbness and Denies tingling Neuro Denies Abnormal speech present, Denies behavioral changes, Denies vertigo, Denies dizziness, Denies headache(s), Denies loss of vision, Denies memory loss, Denies numbness and Denies tingling Psych Denies anxiety, Denies behavioral changes, Denies depression, Denies memory loss and Denies panic attacks Neo/Lymph Denies easy bleeding and Denies easy bruising Aller/Immun Denies wheezing Physical exam (Primary Care) Vital Signs: Last Vital Signs Pulse 92 12/19/23 11:06 BP 134/82 12/19/23 11:06 Pulse Ox 98 12/19/23 11:06 Oxygen Delivery Method Room Air 12/19/23 11:06 BMI result Body Mass Index 39.1 Tobacco/Smoking Status: Tobacco use Status Tobacco use date assessed 06/18/23 12/19/23 11:05 Patient Tobacco Use Status Never used Tobacco 12/19/23 11:05 e-Cigarette/Vaping Use Never Used 12/19/23 11:05 Thrive Assessment: Date of Thrive Assessment Date Thrive assessed 06/18/23 12/19/23 11:05 Const General: healthy appearing, no acute distress, alert and awake Nutritional Appearance: well nourished Orientation/consciousness: oriented to person, oriented to place and oriented to time HENMT Ears: TM's normal bilaterally General nose exam: Normal nasal mucous membranes and turbinates present Eyes Conjunctivae: conjunctivae normal Sclerae: sclerae normal Pupils: Equal, round and reactive pupils present Neck Neck: Yes no lymphadenopathy and Yes no JVD Thyroid: Thyroid normal Carotids: no bruits Chest Chest/axillae images: 2 1. NOTED BILATERAL MASTECTOMY SITES, SOME TENDERNESS TO PALPATION OVER THE ENTIRETY OF THE CHEST. Resp Effort & Inspection: normal respiratory effort and not tachypneic Auscultation: no crackles, no rales, no rhonchi and no wheezes Cardio Rate: regular rate Rhythm: regular rhythm Heart sounds: no murmurs and normal S1 and S2 GI Palpation (GI): Soft to palpation, nontender, no hepatomegaly and no splenomegaly Auscultation: normal bowel sounds Skin General skin exam: no rashes or lesions noted and dry skin Neuro General: oriented to person, oriented to place and oriented to time Cranial nerves: Yes Equal, round and reactive pupils present Speech: No Abnormal speech present Gait exam (Neuro): Normal gait present Motor exam (neuro): no tremor noted Extrem Right upper extremity: full ROM Left upper extremity: full ROM Right lower extremity: full ROM; no edema Left lower extremity: full ROM; no edema Psych Mental Status: mental status grossly normal Speech and movement: Normal speech and movement present Affect: normal affect Attitude: cooperative Thought process: Normal thought process present Results AMB Hemoglobin A1c 2 AMB Hemoglobin A1c 6.0 % Last Edit by AR Crump on 12/19/23 11:34 Results Reviewed Results Reviewed: Laboratory Last Values Hgb A1c (Clinic) 6.0 % (4.0-6.0) 12/19/23 11:17 Assessment and Plan Assessment & Plan (1) Recurrent malignant neoplasm of right breast: Code(s): C50.911 - Malignant neoplasm of unspecified site of right female breast Plan: Her history recurrent malignant neoplasms of the breasts. Now followed by Oncology and underwent a repeat bone scan without any notable metastasize lesions. She continues to have pain related to a mastectomy sites and requesting increase pain medication dose. We did agree to increase her oxycodone 15 mg TID better pain relief. Advised to consider re-evaluation from pain management for pain reduction modalities. (2) Cervical myelopathy with cervical radiculopathy: Code(s): G95.9 - Disease of spinal cord, unspecified; M54.12 - Radiculopathy, cervical region (3) History of bilateral mastectomy: Code(s): Z90.13 - Acquired absence of bilateral breasts and nipples Plan: As above (4) Opiate dependence: Code(s): F11.20 - Opioid dependence, uncomplicated Qualifiers: Substance use status: uncomplicated Qualified Code(s): F11.20 - Opioid dependence, uncomplicated Plan: Patient and family do understand she has a dependency to opiates. She continues to take opiates over the last 15 years or so for various reasons Orders: Orders 2 AMB Hemoglobin A1c Today E11.65 - Type 2 diabetes mellitus with hyperglycemia Complete Blood Count no Diff Today E11.65 - Type 2 diabetes mellitus with hyperglycemia Comprehensive [place]. Panel Fast Today E11.65 - Type 2 diabetes mellitus with hyperglycemia UA CC w/rflx Micro + Cult Today R30.0 - Dysuria, R35.0 - Frequency of micturition Medications: New 2 miscellaneous medical supply NEED FOR DISPOSABLE BED INCONTINENCE PADS 3 TIMES A DAY 1 ea miscellaneous DAILY 1 ea 0RF 90 days R35.0 - Frequency of micturition miscellaneous medical supply REPLACEMENT MATTRESS 1 ea miscellaneous DAILY 1 ea 0RF 99 days F03.90 - Unspecified dementia, unspecified severity, without behavioral disturbance, psychotic disturbance, mood disturbance, and anxiety, G95.9 - Disease of spinal cord, unspecified, M54.12 - Radiculopathy, cervical region, R35.0 - Frequency of micturition miscellaneous medical supply NEED FOR HOSPITAL BED FRAME 1 ea miscellaneous DAILY 1 ea 0RF 99 days F03.90 - Unspecified dementia, unspecified severity, without behavioral disturbance, psychotic disturbance, mood disturbance, and anxiety, G95.9 - Disease of spinal cord, unspecified, M54.12 - Radiculopathy, cervical region, M96.1 - Postlaminectomy syndrome, not elsewhere classified, R35.0 - Frequency of micturition miscellaneous medical supply NEED FOR CERVICAL SPINE PILLOW 1 ea miscellaneous DAILY 1 ea 0RF 99 days M48.02 - Spinal stenosis, cervical region chair, wheel (Wheel chair) Need for transfer wheelchair 1 ea 0RF M96.1 - Postlaminectomy syndrome, not elsewhere classified miscellaneous medical supply NEED FOR BODY PILLOW 1 ea miscellaneous .nightly 1 ea 0RF 99 days M96.1 - Postlaminectomy syndrome, not elsewhere classified oxycodone Partial Fill upon patient request. 15 mg PO Q8H 84 tabs 0RF pain 28 days G95.9 - Disease of spinal cord, unspecified, M54.12 - Radiculopathy, cervical region, Z90.13 - Acquired absence of bilateral breasts and nipples Changed 2 From diaper,brief,adult,disposable (Briefs, Adult-Extra Large) As directed 200 ea 3RF R32 - Unspecified urinary incontinence To diaper,brief,adult,disposable (Briefs, Adult-Extra Large) 2xl size Briefs. 200 ea 3RF R32 - Unspecified urinary incontinence Refilled 2 incontinence pad, liner, disp As directed 400 ea 3RF R32 - Unspecified urinary incontinence Discontinued 2 oxycodone Cancer related pain- Discontinued Reason: Doctor's Order 10 mg PO Q8H 28 days 84 tabs 0RF pain D05.00 - Lobular carcinoma in situ of unspecified breast, Z90.13 - Acquired absence of bilateral breasts and nipples Coding Level of Care Code Est Pt Level 4 (78814) Diagnoses Recurrent malignant neoplasm of right breast C50.911 Cervical myelopathy with cervical radiculopathy G95.9; M54.12 History of bilateral mastectomy Z90.13 Uncomplicated opioid dependence F11.20 Substance use status: uncomplicated
[2023-12-19 11:06] VITALS: BP 134/82; PULSE 92; O2SAT 98; BMI 39.1
== END 2023-12-19 12:05 | disposition home or self-care (01) ==
PROVIDERS: PCP Physician Assistant; Visit Provider Physician Assistant
DX: E11.65 Type 2 diabetes mellitus with hyperglycemia (principal); C50.911 Malignant neoplasm of unspecified site of right female breast; G95.9 Disease of spinal cord, unspecified; F11.20 Opioid dependence, uncomplicated; M54.12 Radiculopathy, cervical region; Z90.13 Acquired absence of bilateral breasts and nipples
CPT/HCPCS: 83036; 99214

== ENCOUNTER 2024-01-30 07:18 | Outpatient (REF) | payer OTHER, SELFPAY ==
[2024-01-30 07:57] LABS: Hematocrit 34.6 % (37.0-47.0); Hemoglobin 11.2 g/dl (12.0-16.0); Mean Corpuscular HGB Conc 32.4 g/dl (31.0-35.0); Mean Corpuscular Volume 95.8 fL (80.0-98.0); Mean Platelet Volume 9.5 fL (9.4-12.3); Platelet Count 352 X10*3/uL (160-400); Red Blood Count 3.61 X10*6/uL (4.20-5.50); Red Cell Distribution Width 16.8 % (11.0-16.0); White Blood Count 6.3 X10*3/uL (4.8-10.8)
[2024-01-30 08:09] LABS: Alanine Aminotransferase 15 U/L (0-31); Alkaline Phosphatase 81 U/L (39-117); Anion Gap 13 (12-20); Aspartate Amino Transferase 21 U/L (5-31); Bilirubin Total 0.4 mg/dL (0.0-1.0); Blood Urea Nitrogen 17 mg/dL (9-16); Calcium 9.3 mg/dL (8.4-10.2); Carbon Dioxide 27 mmol/L (22-29); Chloride 106 mmol/L (96-108); Cholesterol 169 mg/dL (<200); Estimated Glomerular Filt Rate 32; Glucose Fasting 145 mg/dL (60-99); HDL Cholesterol 58 mg/dL (>40); LDL Cholesterol Calculated 93 mg/dL (<100); Potassium 3.6 mmol/L (3.3-5.1); Sodium 142 mmol/L (135-145); Total Protein 7.3 g/dL (6.5-8.0); Triglycerides 91 mg/dL (<150)
[2024-01-30 08:29] LABS: Appearance Urine Clear; Color Urine Yellow; Glucose Urine UA Negative (Negative); Leukocyte Esterase Urine Large (3+) (Negative); Nitrite Urine Negative (Negative); PH 6.5 (5.0-9.0); Specific Gravity - Urine 1.025 (1.005-1.025); UMIC TRIGGER UACC YES; Urine Blood Negative (Negative); Urine Ketones Negative (Negative); Urine Protein 30 (1+) mg/dL (Neg-Trace)
[2024-01-30 08:46] LABS: Bacteria Urine None Seen (None Seen); RBC Urine 0-2 /HPF (0-2); Squamous Epithelial Cell Urine 0-2 /HPF (0-2); UACC Culture Trigger YES; WBC Urine >50 /HPF (0-5)
== END 2024-01-30 07:19 | disposition home or self-care (01) ==
LOC: HO.LAB 07:18
PROVIDERS: PCP Physician Assistant; Visit Provider Physician Assistant
DX: I26.94 Multiple subsegmental thrombotic pulmonary emboli without acute cor pulmonale (principal); I82.402 Acute embolism and thrombosis of unspecified deep veins of left lower extremity; I27.20 Pulmonary hypertension, unspecified; J98.4 Other disorders of lung; E11.65 Type 2 diabetes mellitus with hyperglycemia; R30.0 Dysuria; R35.0 Frequency of micturition; Z79.01 Long term (current) use of anticoagulants; Z90.13 Acquired absence of bilateral breasts and nipples
CPT/HCPCS: 36415; 80053; 80061; 81001; 85027; 87086; 99212

== ENCOUNTER 2024-01-30 08:04 | Outpatient (AMB) | payer OTHER, SELFPAY ==
[2024-01-30 08:40] VITALS: BP 132/78; PULSE 69; O2SAT 99; BMI 40.1
--- NOTE | 2024-01-30 08:40 | A.OFFVIS_ITS ---
Vital Signs 01/30/24 08:40 Height 4 ft 9 in Weight 185 lb 3.013 oz BMI 40.1 BP 132/78 Blood Pressure Location Lt brachial Position Sitting Pulse 69 Pulse Source Pulse Oximeter Pulse Oximetry (%) 99 Oxygen Delivery Method Room Air Intake Visit Reasons: Pneumonitis Allergies No Known Allergies [No Known Allergies*] Allergy (Verified 01/30/24 08:46) HPI Comments Details: The patient is a 73 year woman with a known history of breast cancer status post bilateral mastectomy and apparently had been on tamoxifen. A she was in usual state health until back over the summer she started developing significant lower extremity discomfort and swelling primarily the left leg. She had an ultrasound that demonstrating a DVT the patient was sent to the hospital. She was admitted to the hospital and that she had a CTA demonstrating also significant pulmonary emboli she. The patient was placed on Eliquis. During the hospitalization the patient did have elevations in the cardiac enzymes event therefore it was prefer to she treat her conservatively. She was evaluated by vascular surgery briefly. The patient subsequently was discharged and then she presented to [facility] in December with worsening left lower extremity pain. There she had another ultrasound demonstrating persistent extensive clot of the lower extremity. Rosy while she does complaint of dyspnea on exertion. She is limited as far as rectal and gait and she does have a walker or cane. During the visit we did have her go for 6 minutes walk test the patient did not desaturate she maintain a pulse ox of 96-98% which is reassuring however heart rate was elevated in the low 100s. We did review her CTA that she had back in November personally by me laterally that she had bilateral blood clots but she also had extensive ground-glass opacities. The etiology is unclear. Will go ahead and request blood work evaluation for the pneumonitis. She she is currently on Eliquis and she is off the tamoxifen altogether. She does follow closely with Oncology. Based on the fact the continues to have symptoms will going to repeat her CTA this point and also her left lower extremity Doppler to assess the clot burden. If she continues to have clot burden primarily the left lower extremity will go ahead and refer her back to vascular surgery. If her clot burden still significant in the chest area then will have to contemplate a different anticoagulation regimen for her. 06/10/2023 the patient is here for a pulmonary follow-up visit. Overall the patient has been doing fairly well from a respiratory status. She is still getting shortness of breath with activity. [id number] severity. She does relying walker. The patient has been using the Eliquis. She did have a repeat lower extremity Doppler demonstrating improvement in the chronic clot. This is reassuring that at least his decreasing size. Therefore we do not have to send her to vascular surgery. She did attempt to have the CTA done to see if she has any chronic clot in the lungs. However, after multiple IV catheter attempts the patient was not able to get IV in place in order to get the contrast dye. Therefore we had to cancel the CT scan. I did go with the patient for brief walking oximetry in the oxygen maintain between 96-97%. Heart rate was stable. Therefore I am reassured that her pulmonary vascular issues are improved. The patient also had a biopsy of a breast lesion in appears that she has recurrent breast cancer. The patient still not aware that she is going to find out the results tomorrow with her surgeon. Therefore based on the fact that she is going to need additional interventions will go ahead and continue with conservat helen therapy. She should continue with the Eliquis lifelong for the significant thrombotic event. The patient also continues use her respiratory therapy with good effect. And the oxygenation is also reassuring. 01/30/2024 the patient is here for a pulmonary follow-up visit. The patient has been complaining of worsening cough. Typically at nighttime. Typically when she lays back. Moderate severity. She also complains of some dyspnea on exertion. He she had been taking Breo some reason she has not been taking any longer. She does not like the powder inhalers. She would like the irritate her throat. She rather use the regular HFA. She did have a CT scan of the chest in 12/14/2023. This was done at [facility]. No evidence of any pneumonitis although she did have increased cardiac size and some pulmonary vascular congestion. The patient also has some lower extremity edema. She does have Lasix that she takes. The patient also continues on the Eliquis for her DVT. She is also following closely with oncology regarding her history of breast cancer. Her respiratory exam is reassuring. It is also reassuring that she does not have any further pneumonitis on her CT scan. No pulmonary nodules to be concerned about either. Will plan to treat her cough with inhaler therapy and also with the benzo nights. The patient should also sleep elevated. Will follow-up in 6-8 months. If she has any issues prior to that she will call for an earlier assessment. 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 Depression Arthritis IBS (irritable bowel syndrome) GERD (gastroesophageal reflux disease) Recurrent malignant neoplasm of 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, managed as type 2 HTN (hypertension) Traumatic complete tear of right rotator cuff Surgical History Hx of excision of mass (08/14/23) History of excision of lesion (05/30/23) S/P bilateral mastectomy History of bilateral mastectomy (02/19/22) Hx of cholecystectomy Hx of appendectomy Hx of blepharoplasty History of esophagogastroduodenoscopy (EGD) History of lumpectomy of both breasts History of surgery History of colonoscopy S/P ANDRÉS-BSO (total abdominal hysterectomy and bilateral salpingo-oophorectomy) History of lumbar fusion Family History Father Heart problem Mother Heart disease Hypertension Colon cancer Epilepsy Maternal Grandmother Esophageal cancer Daughter Breast cancer Brother Lung cancer Sister Breast cancer Sister Breast cancer, Onset Age: 60 Sister COVID Daughter Acute kidney failure Social History Household Members: None Housing: House Are you a primary day care worker to a significant other at home: No Do you presently have visiting nurse or other home services: No (granddaughter Sharla helps take care of her) Alcohol intake: never Comment: counts correct Patient Tobacco Use Status: Never used Tobacco e-Cigarette/Vaping Use: Never Used Second Hand Smoke Exposure: No Advance Directives Date on File: 06/13/23 service: No Current occupational status: disabled 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) Hearing needs: No Vision needs: Yes Female Reproductive History Menstrual Age of Menarche: 9 Review of Systems Const Reports fatigue and Denies fever(s) Eyes Denies change in vision ENT Denies dizziness Card Denies chest pain, Reports leg edema and Reports dyspnea on exertion Resp Denies cough, Reports dyspnea on exertion and Denies wheezing GI Denies hematochezia and Denies change in stool character Musc Reports abnormal gait and Reports myalgias Skin/Breast Denies rash Neuro Reports abnormal gait and Denies dizziness Endo Reports fatigue Neo/Lymph Denies easy bleeding, Denies easy bruising and Denies lymphadenopathy Aller/Immun Denies wheezing Physical Exam Vital Signs: Last Vital Signs Pulse 69 01/30/24 08:40 BP 132/78 01/30/24 08:40 Pulse Ox 99 01/30/24 08:40 Oxygen Delivery Method Room Air 01/30/24 08:40 BMI result Body Mass Index 40.1 Const General: no acute distress and alert HEENT Head: Yes atraumatic Neck Neck: Yes supple Chest Chest palpation & inspection: normal inspection of the chest Resp Effort & Inspection: normal respiratory effort Auscultation: no wheezes and diminished lung sounds Cardio Rate: regular rate Rhythm: regular rhythm Heart sounds: S1 normal heart sound present and S2 normal heart sound present GI Palpation (GI): Soft to palpation Skin General skin exam: no rashes or lesions noted Extrem General: No clubbing, No cyanosis and Yes edema Assessment & Plan Assessment & Plan (1) Pulmonary emboli: Code(s): I26.99 - Other pulmonary embolism without acute cor pulmonale Category: Medical Qualifiers: Pulmonary embolism type: multiple subsegmental (without acute cor pulmonale) Qualified Code(s): I26.94 - Multiple subsegmental pulmonary emboli without acute cor pulmonale (2) DVT (deep venous thrombosis): Code(s): I82.409 - Acute embolism and thrombosis of unspecified deep veins of unspecified lower extremity Category: Medical Qualifiers: Affected thrombotic vein of extremity: unspecified vein of extremity Chronicity: acute DVT location: lower extremity Laterality: left Qualified Code(s): I82.402 - Acute embolism and thrombosis of unspecified deep veins of left lower extremity (3) Pulmonary hypertension: Code(s): I27.20 - Pulmonary hypertension, unspecified Category: Medical (4) Pneumonitis: Comment: better Code(s): J98.4 - Other disorders of lung Category: Medical (5) History of bilateral mastectomy: Onset Date: 02/19/22 Comment: right breast modified radical mastectomy, prophylactic left simple mastectomy- now with recurrence Code(s): Z90.13 - Acquired absence of bilateral breasts and nipples Category: Surgical Plan continue Eliquis 5mg BID stopped Breo daily start Symbicort continue JAMARCUS as needed Benzonates as needed for cough Follow up with surgery and oncology F/U 6-8 months Medications: New budesonide-formoterol 80-4.5 mcg/actuation (Symbicort) 2 puffs inhalation BID 10.2 grams 11RF 30 days benzonatate 200 mg PO BID PRN 60 caps 0RF cough 30 days Coding Level of Care Code Est Pt Level 4 (29588) Diagnoses Multiple subsegmental pulmonary emboli without acute cor pulmonale I26.94 Pulmonary embolism type: multiple subsegmental (without acute cor pul monale) Acute deep vein thrombosis (DVT) of left lower extremity, unspecified vein I82.402 Affected thrombotic vein of extremity: unspecified vein of extremity Chronicity: acute DVT location: lower extremity Laterality: left Pulmonary hypertension I27.20 Pneumonitis J98.4 History of bilateral mastectomy Z90.13 Time Spent (min) 16
== END 2024-01-30 09:00 | disposition home or self-care (01) ==
PROVIDERS: PCP Physician Assistant; Visit Provider Hospitalist
DX: I26.94 Multiple subsegmental thrombotic pulmonary emboli without acute cor pulmonale (principal); I82.402 Acute embolism and thrombosis of unspecified deep veins of left lower extremity; I27.20 Pulmonary hypertension, unspecified; J98.4 Other disorders of lung; Z90.13 Acquired absence of bilateral breasts and nipples
CPT/HCPCS: 99214

== ENCOUNTER 2024-02-12 10:13 | Outpatient (AMB) | payer OTHER, SELFPAY ==
[2024-02-12 10:14] VITALS: BMI 40.0
--- NOTE | 2024-02-12 10:14 | MHC.OFFVIS ---
Vital Signs 02/12/24 10:14 Height 4 ft 9 in Weight 185 lb BMI 40.0 Intake Visit Reasons: Follow up Intake Note: Patient presents for follow up. Pantry Attendant Required: Yes Pantry Attendant Services: Pantry Attendant Present Pantry Attendant Name: marga de santiago Information Interpreted: non-clinical & clinical Allergies No Known Allergies [No Known Allergies*] Allergy (Verified 02/12/24 10:22) Medication List - Last Reconciled 02/12/24 by RNIKU Velasquez acetaminophen 325 mg PO Q6H PRN 30 days albuterol sulfate 90 mcg/actuation 1 puff PO QID PRN albuterol sulfate 2.5 mg (3 mL) inhalation Q6H PRN 30 days amitriptyline 10 mg PO BEDTIME 90 days amlodipine 10 mg PO DAILY apixaban (Eliquis) 5 mg PO BID 90 days atorvastatin 20 mg PO BEDTIME benzonatate 200 mg PO BID PRN 30 days blood sugar diagnostic (FreeStyle Lite Strips) As directed blood-glucose meter (FreeStyle Lite Meter kit) As directed budesonide-formoterol 80-4.5 mcg/actuation (Symbicort) 2 puffs inhalation BID 30 days cefuroxime axetil 250 mg PO BID chair, wheel (Wheel chair) Need for transfer wheelchair chair, wheel (Wheel chair) As directed cholecalciferol (vitamin D3) (Vitamin D3) 50 mcg PO DAILY cyclobenzaprine 10 mg PO TID 30 days diaper,brief,adult,disposable (Protective Underwear Ex-Large) 2xl size Briefs. dicyclomine 20 mg (2 x 10 mg) PO QID 30 days escitalopram oxalate 5 mg PO DAILY 30 days fluticasone furoate-vilanterol 200-25 mcg/dose (Breo Ellipta) 1 inh inhalation DAILY 30 days furosemide (Lasix) 20 mg PO DAILY 30 days gabapentin 800 mg PO TID 90 days glyburide 1.25 mg PO DAILY 60 days incontinence pad, liner, disp As directed lancets (FreeStyle Lancets) As directed letrozole 2.5 mg PO DAILY memantine 28 mg PO DAILY 30 days metoprolol tartrate 50 mg PO BID mirtazapine (Remeron) 15 mg PO BEDTIME 30 days miscellaneous medical supply (Blood Pressure Cuff) As directed miscellaneous medical supply 1 ea miscellaneous DAILY 90 days miscellaneous medical supply 1 ea miscellaneous DAILY 99 days miscellaneous medical supply 1 ea miscellaneous DAILY 99 days miscellaneous medical supply 1 ea miscellaneous DAILY 99 days miscellaneous medical supply 1 ea miscellaneous .nightly 99 days nebulizers (AeroEclipse II Nebulizer) As directed nebulizers As directed omeprazole 20 mg PO DAILY 90 days oxycodone 15 mg PO Q8H 28 days trazodone 200 mg (2 x 100 mg) PO BEDTIME 90 days HPI Comments Details: 73-yr-old female presents for f/u visit, accompanied by her dtr. Pt's dtr notes that pt has just again been tx'd for a UTI and feels she has another UTI. She does not have a urologist. Pt reports her memory is stable- some days better than others. No recent episodes of confusion- dtr thinks that this may have been worsened by pt not being able to sleep in her old apartment. But since pt has moved recently into Senior Housing, and is able to sleep better since moving into the senior housing as her neighbors are quieter. Her who she has been from x's 30 yrs also lives in the building. They do eat meals together, but do enjoy having their separate space. He does help her with things as needed. She is cooking on her own. She is compliant w/ Amitriptyline, Memantine. Her med list has been simplified some. 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 Depression Arthritis IBS (irritable bowel syndrome) GERD (gastroesophageal reflux disease) Recurrent malignant neoplasm of 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, managed as type 2 HTN (hypertension) Traumatic complete tear of right rotator cuff Surgical History Hx of excision of mass (08/14/23) History of excision of lesion (05/30/23) S/P bilateral mastectomy History of bilateral mastectomy (02/19/22) Hx of cholecystectomy Hx of appendectomy Hx of blepharoplasty History of esophagogastroduodenoscopy (EGD) History of lumpectomy of both breasts History of surgery History of colonoscopy S/P ANDRÉS-BSO (total abdominal hysterectomy and bilateral salpingo-oophorectomy) History of lumbar fusion Family History Father Heart problem Mother Heart disease Hypertension Colon cancer Epilepsy Maternal Grandmother Esophageal cancer Daughter Breast cancer Brother Lung cancer Sister Breast cancer Sister Breast cancer, Onset Age: 60 Sister COVID Daughter Acute kidney failure Social History Household Members: None Housing: House Are you a primary care clinician to a significant other at home: No Do you presently have visiting nurse or other home services: No (granddaughter Sharla helps take care of her) Alcohol intake: never Comment: counts correct Patient Tobacco Use Status: Never used Tobacco e-Cigarette/Vaping Use: Never Used Second Hand Smoke Exposure: No Advance Directives Date on File: 06/13/23 service: No Current occupational status: disabled 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) Hearing needs: No Vision needs: Yes Female Reproductive History Menstrual Age of Menarche: 9 Physical Exam Vital Signs: BMI result Body Mass Index 40.0 Const General: cooperative and no acute distress Orientation/consciousness: patient oriented x3 Resp Effort & Inspection: normal respiratory effort and able to speak in complete sentences Neuro Other: Pt is able to state correct date, location, name of dtr. She cannot recall the name of the president. General: patient oriented x3 Cranial nerves: Yes CN's II-XII intact bilaterally Psych Appearance: grossly normal Mental Status: mental status grossly normal Speech and movement: Normal speech and movement present Affect: normal affect Attitude: cooperative Assessment & Plan Assessment & Plan (1) Cognitive disorder: Code(s): F09 - Unspecified mental disorder due to known physiological condition Category: Medical (2) Mild obstructive sleep apnea: Code(s): G47.33 - Obstructive sleep apnea (adult) (pediatric) Category: Medical Plan Pt is doing much better overall. Continue Memantine ER 28mg qd Pt states she is taking Lexapro 5mg- though this is not clear. Will f/u on status of CPAP order. Continue cognitive, social, and physical activity. I did take the liberty of requesting urology consult as the recurrent UTI type s/s can interfere w/ pt's cognition. Orders: Referrals Urology Referral F09 - Unspecified mental disorder due to known physiological condition, N39.0 - Urinary tract infection, site not specified Medications: Refilled escitalopram oxalate 5 mg PO DAILY 30 days 30 tabs 3RF Coding Level of Care Code Est Pt Level 4 (54821) Diagnoses Cognitive disorder F09 Mild obstructive sleep apnea G47.33
== END 2024-02-12 11:24 | disposition home or self-care (01) ==
PROVIDERS: PCP Physician Assistant; Visit Provider Nurse Practitioner Family
DX: R41.89 Other symptoms and signs involving cognitive functions and awareness (principal); G47.33 Obstructive sleep apnea (adult) (pediatric)
CPT/HCPCS: 99214

== ENCOUNTER → 2024-02-12 10:13 | Outpatient (BNVA) | payer OTHER, SELFPAY | PROVIDERS: PCP Physician Assistant; Visit Provider Nurse Practitioner Family | DX: F09 Unspecified mental disorder due to known physiological condition (principal); G47.33 Obstructive sleep apnea (adult) (pediatric) | CPT/HCPCS: 99212 ==

== ENCOUNTER 2024-03-19 11:18 | Outpatient (AMB) | payer OTHER, SELFPAY ==
[2024-03-19 11:54] VITALS: BP 120/68; PULSE 72; O2SAT 96; BMI 39.4
--- NOTE | 2024-03-19 11:54 | MHC.PC.OV ---
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 Required: No Accompanied by: Grand Child Allergies No Known Allergies [No Known Allergies*] Allergy (Verified 03/19/24 11:58) Medication List - Last Reconciled 03/19/24 by Milan Mcgraw PA-C acetaminophen 325 mg PO Q6H PRN 30 days albuterol sulfate 90 mcg/actuation 1 puff PO QID PRN albuterol sulfate 2.5 mg (3 mL) inhalation Q6H PRN 30 days amitriptyline 10 mg PO BEDTIME 90 days amlodipine 10 mg PO DAILY apixaban (Eliquis) 5 mg PO BID 90 days atorvastatin 20 mg PO BEDTIME benzonatate 200 mg PO BID PRN 30 days blood sugar diagnostic (FreeStyle Lite Strips) As directed blood-glucose meter (FreeStyle Lite Meter kit) As directed budesonide-formoterol 80-4.5 mcg/actuation (Symbicort) 2 puffs inhalation BID 30 days cefuroxime axetil 250 mg PO BID chair, wheel (Wheel chair) Need for transfer wheelchair chair, wheel (Wheel chair) As directed cholecalciferol (vitamin D3) (Vitamin D3) 50 mcg PO DAILY cyclobenzaprine 10 mg PO TID 30 days diaper,brief,adult,disposable (Protective Underwear Ex-Large) 2xl size Briefs. dicyclomine 20 mg (2 x 10 mg) PO QID 30 days escitalopram oxalate 5 mg PO DAILY 30 days fluticasone furoate-vilanterol 200-25 mcg/dose (Breo Ellipta) 1 inh inhalation DAILY 30 days furosemide (Lasix) 20 mg PO DAILY 30 days gabapentin 800 mg PO TID 90 days glyburide 1.25 mg PO DAILY 60 days incontinence pad, liner, disp As directed lancets (FreeStyle Lancets) As directed letrozole 2.5 mg PO DAILY memantine 28 mg PO DAILY 30 days metoprolol tartrate 50 mg PO BID mirtazapine (Remeron) 15 mg PO BEDTIME 30 days miscellaneous medical supply (Blood Pressure Cuff) As directed miscellaneous medical supply 1 ea miscellaneous DAILY 90 days miscellaneous medical supply 1 ea miscellaneous DAILY 99 days miscellaneous medical supply 1 ea miscellaneous DAILY 99 days miscellaneous medical supply 1 ea miscellaneous DAILY 99 days miscellaneous medical supply 1 ea miscellaneous .nightly 99 days nebulizers (AeroEclipse II Nebulizer) As directed nebulizers As directed omeprazole 20 mg PO DAILY 90 days oxycodone 15 mg PO Q8H 28 days trazodone 200 mg (2 x 100 mg) PO BEDTIME 90 days Tobacco use date assessed: 06/18/23 Dental Screening Dental Screen Date: 06/18/23 HPI 3 Month F/U HPI Details Patient is a 73-year-old female here today for follow-up visit. She is Georgian-speaking only thus used a sterilization specialist. Patient's past medical history significant for type 2 diabetes, chronic lumbar spine pain, history of breast cancer and is status post bilateral total mastectomy, DVT and bilateral pulmonary embolism(now on Eliquis) major depressive disorder, mild cognitive impairment. --Concern> .. DMII: Patient's type 2 diabetes fairly controlled on current dose of metformin. A1c appropriate today at 6.3 . . Obstructive sleep/ Pulmonary embolism/nocturnal hypoxemia: Followed by pulmonology, unable to repeat CT chest. Continues on Eliquis indefinitely. Denies any overt signs of bleeding. . Breast cancer: Is status post bilateral total mastectomy, recently had cyst biopsy which did show recurrent carcinoma. She continues on pain management with oxycodone 15 mg t.i.d. for cancer related pain. She is now seeing Oncology at [facility]. She is due for bone scan due to concerns of metastasis to bone though fortunately no evidence of metastatic disease.. Unfortunately patient reports continued pain in her mastectomy sites along with continued lower lumbar spine and cervical spine pain. 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 Depression Arthritis IBS (irritable bowel syndrome) GERD (gastroesophageal reflux disease) Recurrent malignant neoplasm of right breast HTN (hypertension) Traumatic complete tear of right rotator cuff Surgical History Hx of excision of mass (08/14/23) History of excision of lesion (05/30/23) S/P bilateral mastectomy History of bilateral mastectomy (02/19/22) Hx of cholecystectomy Hx of appendectomy Hx of blepharoplasty History of esophagogastroduodenoscopy (EGD) History of lumpectomy of both breasts History of surgery History of colonoscopy S/P ANDRÉS-BSO (total abdominal hysterectomy and bilateral salpingo-oophorectomy) History of lumbar fusion Family History Father Heart problem Mother Heart disease Hypertension Colon cancer Epilepsy Maternal Grandmother Esophageal cancer Daughter Breast cancer Brother Lung cancer Sister Breast cancer Sister Breast cancer, Onset Age: 60 Sister COVID Daughter Acute kidney failure Social History Household Members: None Housing: House Are you a primary home health care respiratory therapist to a significant other at home: No Do you presently have visiting nurse or other home services: No (granddaughter Sharla helps take care of her) Alcohol intake: never Comment: counts correct Patient Tobacco Use Status: Never used Tobacco e-Cigarette/Vaping Use: Never Used Second Hand Smoke Exposure: No Advance Directives Date on File: 06/13/23 service: No Current occupational status: disabled 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) Hearing needs: No Vision needs: Yes Female Reproductive History Menstrual Age of Menarche: 9 Questionnaire Thrive Questionnaire Date Thrive assessed: 06/18/23 OLAYINKA-7 AMB Questionnaire OLAYINKA-7 Date OLAYINKA - 7 assessed: 06/18/23 Source: Developed by Drs. Chinedu Romero, Rosemarie Ballard, Mina Lanier and colleagues, with an educational luis fernando from [employer]. Review of Systems Const Denies headache(s) Eyes Denies loss of vision ENT Denies vertigo, Denies dizziness, Denies headache(s) and Denies sore throat Card Denies chest pain, Denies leg edema and Denies lightheadedness Resp Denies cough, Denies hemoptysis and Denies wheezing GI Denies abdominal pain, Denies melena, Denies constipation, Denies diarrhea and Denies vomiting Denies urinary frequency, Denies dysuria and Denies urinary urgency Musc Denies arthralgias, Denies joint swelling, Denies numbness and Denies tingling Neuro Denies Abnormal speech present, Denies behavioral changes, Denies vertigo, Denies dizziness, Denies headache(s), Denies loss of vision, Denies memory loss, Denies numbness and Denies tingling Psych Denies anxiety, Denies behavioral changes, Denies depression, Denies memory loss and Denies panic attacks Neo/Lymph Denies easy bleeding and Denies easy bruising Aller/Immun Denies wheezing Physical exam (Primary Care) Vital Signs: Last Vital Signs Pulse 72 03/19/24 11:54 BP 120/68 03/19/24 11:54 Pulse Ox 96 03/19/24 11:54 Oxygen Delivery Method Room Air 03/19/24 11:54 BMI result Body Mass Index 39.4 Tobacco/Smoking Status: Tobacco use Status Tobacco use date assessed 06/18/23 03/19/24 11:54 Patient Tobacco Use Status Never used Tobacco 03/19/24 11:54 e-Cigarette/Vaping Use Never Used 03/19/24 11:54 Thrive Assessment: Date of Thrive Assessment Date Thrive assessed 06/18/23 03/19/24 11:54 Const General: healthy appearing, no acute distress, alert and awake Nutritional Appearance: well nourished Orientation/consciousness: oriented to person, oriented to place and oriented to time HENMT Ears: TM's normal bilaterally General nose exam: Normal nasal mucous membranes and turbinates present Eyes Conjunctivae: conjunctivae normal Sclerae: sclerae normal Pupils: Equal, round and reactive pupils present Neck Neck: Yes no lymphadenopathy and Yes no JVD Thyroid: Thyroid normal Carotids: no bruits Resp Effort & Inspection: normal respiratory effort and not tachypneic Auscultation: no crackles, no rales, no rhonchi and no wheezes Cardio Rate: regular rate Rhythm: regular rhythm Heart sounds: no murmurs and normal S1 and S2 GI Palpation (GI): Soft to palpation, nontender, no hepatomegaly and no splenomegaly Auscultation: normal bowel sounds Skin General skin exam: no rashes or lesions noted and dry skin Neuro General: oriented to person, oriented to place and oriented to time Cranial nerves: Yes Equal, round and reactive pupils present Speech: No Abnormal speech present Gait exam (Neuro): Normal gait present Motor exam (neuro): no tremor noted Extrem Right upper extremity: full ROM Left upper extremity: full ROM Right lower extremity: full ROM; no edema Left lower extremity: full ROM; no edema Psych Mental Status: mental status grossly normal Speech and movement: Normal speech and movement present Affect: normal affect Attitude: cooperative Thought process: Normal thought process present Office Procedures Flu Questionnaire Does the patient have a severe egg allergy?: No Does the patient have severe life threatening allergies?: No Does the patient have a fever or illness today?: No Has the patient ever had Guillain-[place] Syndrome?: No Has the patient ever had any past reaction to a flu shot?: No Results AMB Hemoglobin A1c AMB Hemoglobin A1c 6.3 % Last Edit by AR Crump on 03/19/24 12:39 Immunizations Fluarix Triv [id number] (PF) 45 mcg (15 mcg x 3)/0.5 mL IM syringe Performing Provider: Milan Mcgraw PA-C Per[facility] Administered by: AR Crump on 03/19/24 12:11 Dose Route Admin Location Dispensed Lot Number Expiration Date [facility] Polarity Tester 0.5 mL IM Right Deltoid 0.5 mL [id number] 11/23/24 [id number] [employer] VIS Given Date VIS Provided VIS Publication Date 03/19/24 Single Vaccine 20 Eligibility Eligibility Date Funding Source Not [facility] Eligible 03/19/24 Private Results Reviewed Results Reviewed: Laboratory Last Values Hgb A1c (Clinic) 6.3 % (4.0-6.0) H 03/19/24 12:37 Coding Level of Care Code Est Pt Level 4 (54368) Diagnoses Type 2 diabetes mellitus with hyperglycemia, without long-term current use of insulin E11.65 Diabetes mellitus complication status: with hyperglycemia Diabetes mellitus senior living insulin use: without watermaster use Essential hypertension I10 Hypertension type: essential hypertension Recurrent malignant neoplasm of right breast C50.911 Assessment & Plan Assessment & Plan (1) DMII (diabetes mellitus, type 2): Code(s): E11.9 - Type 2 diabetes mellitus without complications Category: Medical Qualifiers: Diabetes mellitus complication status: with hyperglycemia Diabetes mellitus watermaster insulin use: without watermaster use Qualified Code(s): E11.65 - Type 2 diabetes mellitus with hyperglycemia Plan: Patient's A1c acceptable. Will continue her current dose of antihyperglycemic medication with goal A1c to remain below 7.0 (2) HTN (hypertension): Code(s): I10 - Essential (primary) hypertension Category: Medical Qualifiers: Hypertension type: essential hypertension Qualified Code(s): I10 - Essential (primary) hypertension Plan: Patient's blood pressure acceptable today in office. Will continue her current dose of antihypertensive medication with goal blood pressure to be below 140 over 90. (3) Recurrent malignant neoplasm of right breast: Code(s): C50.911 - Malignant neoplasm of unspecified site of right female breast Category: Medical Plan: Patient followed by Oncology with no recent reoccurrence of her breast neoplasm. Patient does use oxycodone 15 mg Q 8 hours for her cancer related breast pain and lower back pain Orders: Orders Microalbumin, Random (w Creat) 03/19/24 I10 - Essential (primary) hypertension Lipid Panel 03/19/24 E11.65 - Type 2 diabetes mellitus with hyperglycemia AMB Hemoglobin A1c 03/19/24 E13.9 - Other specified diabetes mellitus without complications Influenza [id number] Immunization 03/19/24 Z23 - Encounter for immunization Comprehensive [place]. Panel Fast 03/19/24 I10 - Essential (primary) hypertension Complete Blood Count no Diff 03/19/24 I10 - Essential (primary) hypertension Medications: Refilled trazodone 200 mg (2 x 100 mg) PO BEDTIME 90 days 180 tabs 1RF
== END 2024-03-19 12:15 | disposition home or self-care (01) ==
PROVIDERS: PCP Physician Assistant; Visit Provider Physician Assistant
DX: E11.65 Type 2 diabetes mellitus with hyperglycemia (principal); I10 Essential (primary) hypertension; C50.911 Malignant neoplasm of unspecified site of right female breast

== ENCOUNTER → 2024-03-19 11:18 | Outpatient (BNVA) | payer OTHER, SELFPAY | PROVIDERS: PCP Physician Assistant; Visit Provider Physician Assistant | DX: Z23 Encounter for immunization (principal); E11.65 Type 2 diabetes mellitus with hyperglycemia; I10 Essential (primary) hypertension; C50.911 Malignant neoplasm of unspecified site of right female breast | CPT/HCPCS: 83036; 90471; 90656; 99212 ==

== ENCOUNTER 2024-06-22 11:17 | Outpatient (AMB) | payer OTHER, SELFPAY ==
[2024-06-22 11:30] VITALS: BP 130/74; PULSE 64; TEMP 36.1; O2SAT 97; BMI 39.1
--- NOTE | 2024-06-22 11:30 | A.OFFPC_ITS ---
Vital Signs 06/22/24 11:30 Height 4 ft 9 in Weight 180 lb 8 oz BMI 39.1 BP 130/74 Blood Pressure Location Lt brachial Position Sitting Pulse 64 Pulse Source Pulse Oximeter Temp 96.9 F Temp Source Temporal Artery Scan Pulse Oximetry (%) 97 Oxygen Delivery Method Room Air Intake Visit Reasons: f/u DMII Application Software Engineer Required: No Application Software Engineer Name: Pt refused/daughter as interp Accompanied by: Grand Child Allergies No Known Allergies [No Known Allergies*] Allergy (Verified 06/22/24 11:54) Medication List - Last Reconciled 06/22/24 by Milan Mcgraw PA-C acetaminophen 325 mg PO Q6H PRN 30 days albuterol sulfate 90 mcg/actuation 1 puff PO QID PRN albuterol sulfate 2.5 mg (3 mL) inhalation Q6H PRN 30 days amitriptyline 10 mg PO BEDTIME 90 days amlodipine 10 mg PO DAILY apixaban (Eliquis) 5 mg PO BID 90 days atorvastatin 20 mg PO BEDTIME blood sugar diagnostic (FreeStyle Lite Strips) As directed blood-glucose meter (FreeStyle Lite Meter kit) As directed budesonide-formoterol 80-4.5 mcg/actuation (Symbicort) 2 puffs inhalation BID 30 days chair, wheel (Wheel chair) Need for transfer wheelchair chair, wheel (Wheel chair) As directed cholecalciferol (vitamin D3) (Vitamin D3) 50 mcg PO DAILY cyclobenzaprine 10 mg PO TID 30 days diaper,brief,adult,disposable (Protective Underwear Ex-Large) 2xl size Briefs. dicyclomine 20 mg (2 x 10 mg) PO QID 30 days escitalopram oxalate 5 mg PO DAILY 30 days fluticasone furoate-vilanterol 200-25 mcg/dose (Breo Ellipta) 1 inh inhalation DAILY 30 days furosemide (Lasix) 20 mg PO DAILY 30 days gabapentin 800 mg PO TID 90 days glyburide 1.25 mg PO DAILY 60 days incontinence pad, liner, disp As directed lancets (FreeStyle Lancets) As directed letrozole 2.5 mg PO DAILY memantine 28 mg PO DAILY 30 days metoprolol tartrate 50 mg PO BID mirtazapine (Remeron) 15 mg PO BEDTIME 30 days miscellaneous medical supply (Blood Pressure Cuff) As directed miscellaneous medical supply 1 ea miscellaneous DAILY 90 days miscellaneous medical supply 1 ea miscellaneous DAILY 99 days miscellaneous medical supply 1 ea miscellaneous DAILY 99 days miscellaneous medical supply 1 ea miscellaneous DAILY 99 days miscellaneous medical supply 1 ea miscellaneous .nightly 99 days nebulizers (AeroEclipse II Nebulizer) As directed nebulizers As directed omeprazole 20 mg PO DAILY 90 days oxycodone 15 mg PO Q8H 28 days trazodone 200 mg (2 x 100 mg) PO BEDTIME 90 days Tobacco use date assessed: 06/22/24 Fall risk assessment: No Falls in past year Last assessed Fall Risk: 06/22/24 Dental Screening Dental Screen Date: 06/22/24 Did you have a dental visit in the last 12 months?: Yes Did you have a dental problem in the last 6 months where you did not have access to dental care?: No Was dental information given to patient?: Patient has dentist HPI f/u DMII HPI Details Patient is a 74-year-old female here today for follow-up visit. 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 Patient's past medical history significant for type 2 diabetes, chronic lumbar spine pain, history of breast cancer and is status post bilateral total mastectomy, DVT and bilateral pulmonary embolism(now on Eliquis) major depressive disorder, mild cognitive impairment. --Concern> family's a bit concerned abou demar Henderson as she has been a bit fatigued lately. Has not gotten order lab work to evaluate her further. .. DMII: Patient's type 2 diabetes fairly controlled on current dose of metformin. A1c appropriate today at 6.3 . . Obstructive sleep/ Pulmonary embolism /nocturnal hypoxemia: Followed by pulmonology, unable to repeat CT chest. Continues on Eliquis indefinitely. Denies any overt signs of bleeding. . Breast cancer: Is status post bilateral total mastectomy, recently had cyst biopsy which did show recurrent carcinoma. She continues on pain management with oxycodone 15 mg t.i.d. for cancer related pain. She is now seeing Oncology at [facility]. She is due for bone scan due to concerns of metastasis to bone though fortunately no evidence of metastatic disease.. She continues to be treated by [facility] Oncology Unfortunately patient reports continued pain in her mastectomy sites along with continued lower lumbar spine and cervical spine pain. 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 Depression Arthritis IBS (irritable bowel syndrome) GERD (gastroesophageal reflux disease) Recurrent malignant neoplasm of right breast HTN (hypertension) Traumatic complete tear of right rotator cuff Surgical History Hx of excision of mass (08/14/23) History of excision of lesion (05/30/23) S/P bilateral mastectomy History of bilateral mastectomy (02/19/22) Hx of cholecystectomy Hx of appendectomy Hx of blepharoplasty History of esophagogastroduodenoscopy (EGD) History of lumpectomy of both breasts History of surgery History of colonoscopy S/P ANDRÉS-BSO (total abdominal hysterectomy and bilateral salpingo-oophorectomy) History of lumbar fusion Family History Father Heart problem Mother Heart disease Hypertension Colon cancer Epilepsy Maternal Grandmother Esophageal cancer Daughter Breast cancer Brother Lung cancer Sister Breast cancer Sister Breast cancer, Onset Age: 60 Sister COVID Daughter Acute kidney failure Social History Household Members: None Housing: House Are you a primary health and social care teacher to a significant other at home: No Do you presently have visiting nurse or other home services: No (granddaughter Sharla helps take care of her) Alcohol intake: never Comment: counts correct Patient Tobacco Use Status: Never used Tobacco e-Cigarette/Vaping Use: Never Used Second Hand Smoke Exposure: No Advance Directives Date on File: 06/13/23 service: No Current occupational status: disabled 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) Hearing needs: No Vision needs: Yes Female Reproductive History Menstrual Age of Menarche: 9 Questionnaire Thrive Questionnaire Date Thrive assessed: 06/18/23 OLAYINKA-7 AMB Questionnaire OLAYINKA-7 Date OLAYINKA - 7 assessed: 06/18/23 Source: Developed by Drs. Chinedu Romero, Rosemarie Ballard, Mina Lanier and colleagues, with an educational luis fernando from [employer]. Review of Systems Const Denies headache(s) Eyes Denies loss of vision ENT Denies vertigo, Denies dizziness, Denies headache(s) and Denies sore throat Card Denies chest pain, Denies leg edema and Denies lightheadedness Resp Denies cough, Denies hemoptysis and Denies wheezing GI Denies abdominal pain, Denies melena, Denies constipation, Denies diarrhea and Denies vomiting Denies urinary frequency, Denies dysuria and Denies urinary urgency Musc Denies arthralgias, Denies joint swelling, Denies numbness and Denies tingling Neuro Denies Abnormal speech present, Denies behavioral changes, Denies vertigo, Denies dizziness, Denies headache(s), Denies loss of vision, Denies memory loss, Denies numbness and Denies tingling Psych Denies anxiety, Denies behavioral changes, Denies depression, Denies memory loss and Denies panic attacks Neo/Lymph Denies easy bleeding and Denies easy bruising Aller/Immun Denies wheezing Physical exam (Primary Care) Vital Signs: Last Vital Signs Temp 96.9 F 06/22/24 11:30 Pulse 64 06/22/24 11:30 BP 130/74 06/22/24 11:30 Pulse Ox 97 06/22/24 11:30 Oxygen Delivery Method Room Air 06/22/24 11:30 BMI result Body Mass Index 39.1 Tobacco/Smoking Status: Tobacco use Status Tobacco use date assessed 06/22/24 06/22/24 11:39 Patient Tobacco Use Status Never used Tobacco 06/22/24 11:39 e-Cigarette/Vaping Use Never Used 06/22/24 11:39 Thrive Assessment: Date of Thrive Assessment Date Thrive assessed 06/18/23 06/22/24 11:39 Const General: healthy appearing, no acute distress, alert and awake Nutritional Appearance: well nourished Orientation/consciousness: oriented to person, oriented to place and oriented to time HENMT Ears: TM's normal bilaterally General nose exam: Normal nasal mucous membranes and turbinates present Eyes Conjunctivae: conjunctivae normal Sclerae: sclerae normal Pupils: Equal, round and reactive pupils present Neck Neck: Yes no lymphadenopathy and Yes no JVD Thyroid: Thyroid normal Carotids: no bruits Resp Effort & Inspection: normal respiratory effort and not tachypneic Auscultation: no crackles, no rales, no rhonchi and no wheezes Cardio Rate: regular rate Rhythm: regular rhythm Heart sounds: no murmurs and normal S1 and S2 GI Palpation (GI): Soft to palpation, nontender, no hepatomegaly and no splenomegaly Auscultation: normal bowel sounds Skin General skin exam: no rashes or lesions noted and dry skin Neuro General: oriented to person, oriented to place and oriented to time Cranial nerves: Yes Equal, round and reactive pupils present Speech: No Abnormal speech present Gait exam (Neuro): Normal gait present Motor exam (neuro): no tremor noted Extrem Right upper extremity: full ROM Left upper extremity: full ROM Right lower extremity: full ROM; no edema Left lower extremity: full ROM; no edema Psych Mental Status: mental status grossly normal Speech and movement: Normal speech and movement present Affect: normal affect Attitude: cooperative Thought process: Normal thought process present Office Procedures Flu Questionnaire Does the patient have a severe egg allergy?: No Results AMB Hemoglobin A1c AMB Hemoglobin A1c 5.9 % Last Edit by AR Crump on 06/22/24 11:55 Immunizations Fluarix Triv [id number] (PF) 45 mcg (15 mcg x 3)/0.5 mL IM syringe Performing Provider: Milan Mcgraw PA-C [facility] Documented (not given) by: AR Crump on 06/22/24 11:44 Reason Not Given: Received Previously Results Reviewed Results Reviewed: Laboratory Last Values Hgb A1c (Clinic) 5.9 % (4.0-6.0) 06/22/24 11:40 Coding Level of Care Code Est Pt Level 4 (01195) Diagnoses Type 2 diabetes mellitus with hyperglycemia, without long-term current use of insulin E11.65 Diabetes mellitus complication status: with hyperglycemia Diabetes mellitus terminal block assembler insulin use: without terminal block assembler use Essential hypertension I10 Hypertension type: essential hypertension Recurrent malignant neoplasm of right breast C50.911 Acute deep vein thrombosis (DVT) of left lower extremity, unspecified vein I82.402 Affected thrombotic vein of extremity: unspecified vein of extremity Chronicity: acute DVT location: lower extremity Laterality: left MDD (major depressive disorder), recurrent episode, moderate F33.1 Uncomplicated opioid dependence F11.20 Substance use status: uncomplicated Assessment & Plan Assessment & Plan (1) DMII (diabetes mellitus, type 2): Code(s): E11.9 - Type 2 diabetes mellitus without complications Category: Medical Qualifiers: Diabetes mellitus complication status: with hyperglycemia Diabetes mellitus skilled nursing insulin use: without terminal block assembler use Qualified Code(s): E11.65 - Type 2 diabetes mellitus with hyperglycemia Plan: Patient's A1c acceptable at 5.9. Will continue her current dose of antihyperglycemic medication with goal A1c to remain below 7.0 (2) HTN (hypertension): Code(s): I10 - Essential (primary) hypertension Category: Medical Qualifiers: Hypertension type: essential hypertension Qualified Code(s): I10 - Essential (primary) hypertension Plan: Patient's blood pressure acceptable today in office. Will continue her current dose of antihypertensive medication with goal blood pressure to be below 140 over 90. (3) Recurrent malignant neoplasm of right breast: Code(s): C50.911 - Malignant neoplasm of unspecified site of right female breast Category: Medical Plan: Patient followed by Oncology with no recent reoccurrence of her breast neoplasm. Patient does use oxycodone 15 mg Q 8 hours for her cancer related breast pain and lower back pain (4) DVT (deep venous thrombosis): Code(s): I82.409 - Acute embolism and thrombosis of unspecified deep veins of unspecified lower extremity Category: Medical Qualifiers: Affected thrombotic vein of extremity: unspecified vein of extremity Ch ronicity: acute DVT location: lower extremity Laterality: left Qualified Code(s): I82.402 - Acute embolism and thrombosis of unspecified deep veins of left lower extremity Plan: Patient has a history of DVT pulmonary embolism in the setting of malignancy. Continues on anticoagulation with Eliquis without any overt signs of bleeding. Continues to have her recurrent breast cancer managed by Oncology at [facility] . (5) MDD (major depressive disorder), recurrent episode, moderate: Code(s): F33.1 - Major depressive disorder, recurrent, moderate Category: Medical Plan: Patient continues to suffer with depression thus continues on SSRI therapy with decent affect. Not interested in speaking with a mental health therapist or psychiatrist at this point. (6) Opiate dependence: Code(s): F11.20 - Opioid dependence, uncomplicated Category: Medical Qualifiers: Substance use status: uncomplicated Qualified Code(s): F11.20 - Opioid dependence, uncomplicated Plan: Patient continues on a fairly moderate dose of oxycodone for cancer related pain though was on pain medication previously. She does have opiate dependency. Orders: Orders Influenza [id number] Immunization 06/22/24 Z23 - Encounter for immunization AMB Hemoglobin A1c 06/22/24 E11.65 - Type 2 diabetes mellitus with hyperglycemia Medications: Refilled blood-glucose meter (FreeStyle Lite Meter kit) As directed 1 ea 0RF E11.9 - Type 2 diabetes mellitus without complications blood sugar diagnostic (FreeStyle Lite Strips) As directed 100 ea 3RF E11.9 - Type 2 diabetes mellitus without complications oxycodone Partial Fill upon patient request. 15 mg PO Q8H 84 tabs 0RF pain 28 days G95.9 - Disease of spinal cord, unspecified, M54.12 - Radiculopathy, cervical region, Z90.13 - Acquired absence of bilateral breasts and nipples furosemide (Lasix) Take 1 tablet daily as needed for lower leg swelling 20 mg PO DAILY 30 tabs 1RF edema 30 days R60.0 - Localized edema trazodone 200 mg (2 x 100 mg) PO BEDTIME 180 tabs 1RF 90 days gabapentin 800 mg PO TID 270 tabs 1RF 90 days M79.2 - Neuralgia and neuritis, unspecified metoprolol tartrate 50 mg PO BID 180 tabs 1RF I10 - Essential (primary) hypertension Patient Instructions: Goal: A1c to remain below 6.5, blood pressure to remain below 140/90 Barriers: Adherence to physical activity and healthy eating habits
== END 2024-06-22 12:00 | disposition home or self-care (01) ==
PROVIDERS: PCP Physician Assistant; Visit Provider Physician Assistant
DX: Z23 Encounter for immunization (principal); E11.65 Type 2 diabetes mellitus with hyperglycemia

== ENCOUNTER → 2024-06-22 11:17 | Outpatient (BNVA) | payer OTHER, SELFPAY | PROVIDERS: PCP Physician Assistant; Visit Provider Physician Assistant | DX: E11.65 Type 2 diabetes mellitus with hyperglycemia (principal); I10 Essential (primary) hypertension; I82.402 Acute embolism and thrombosis of unspecified deep veins of left lower extremity; C50.911 Malignant neoplasm of unspecified site of right female breast; F33.1 Major depressive disorder, recurrent, moderate; F11.20 Opioid dependence, uncomplicated | CPT/HCPCS: 83036; 90471; 99212 ==

== ENCOUNTER 2024-06-29 14:44 | Outpatient (REF) | payer OTHER, SELFPAY ==
[2024-06-29 15:14] LABS: Hematocrit 36.5 % (37.0-47.0); Hemoglobin 12.4 g/dl (12.0-16.0); Mean Corpuscular Hemoglobin 32.5 pg (27.0-33.0); Mean Corpuscular Volume 95.5 fL (80.0-98.0); Mean Platelet Volume 9.3 fL (9.4-12.3); Platelet Count 356 X10*3/uL (160-400); Red Blood Count 3.82 X10*6/uL (4.20-5.50); Red Cell Distribution Width 14.4 % (11.0-16.0); White Blood Count 8.2 X10*3/uL (4.8-10.8)
[2024-06-29 15:25] LABS: Appearance Urine Clear; Color Urine Yellow; Glucose Urine UA Negative (Negative); Leukocyte Esterase Urine Large (3+) (Negative); Nitrite Urine Negative (Negative); Specific Gravity - Urine 1.025 (1.005-1.025); UMIC TRIGGER UACC YES; Urine Blood Negative (Negative); Urine Ketones Trace mg/dL (Negative); Urine Protein Trace mg/dL (Neg-Trace)
[2024-06-29 15:29] LABS: Bacteria Urine Trace (None Seen); RBC Urine 0-2 /HPF (0-2); UACC Culture Trigger YES; WBC Urine >50 /HPF (0-5)
[2024-06-29 15:51] LABS: Alanine Aminotransferase 13 U/L (0-31); Albumin Level 4.2 g/dL (3.5-5.0); Anion Gap 15 (12-20); Aspartate Amino Transferase 31 U/L (5-31); Bilirubin Total 0.2 mg/dL (0.0-1.0); Blood Urea Nitrogen 26 mg/dL (9-16); Calcium 9.6 mg/dL (8.4-10.2); Carbon Dioxide 24 mmol/L (22-29); Chloride 106 mmol/L (96-108); Cholesterol 163 mg/dL (<200); Estimated Glomerular Filt Rate 33; Glucose Fasting 106 mg/dL (60-99); Glucose Random 105 mg/dL (60-115); HDL Cholesterol 57 mg/dL (>40); LDL Cholesterol Calculated 75 mg/dL (<100); Potassium 3.8 mmol/L (3.3-5.1); Sodium 141 mmol/L (135-145); Triglycerides 159 mg/dL (<150)
[2024-06-29 15:51] LABS: Creatinine Urine 150.24 mg/dL; Microalbum/Creatinine Ratio Ur 10.6 ug/mg cr (<30)
[2024-06-29 16:11] LABS: Alkaline Phosphatase 82 U/L (39-117)
--- OUTSIDE RECORDS SUMMARY | 2024-06-29 16:20 | XMS_ITS | Clinical Summary ---
Author Organization [facility] Address [address] [place] [address] Care Team Providers Care Director Of Pharmacy Name Role Phone Milan Mcgraw Primary Care Provider [phone] Allergies No known active allergies Medications Medication Sig Dispensed Refills Start Date End Date Status acetaminophen (TYLENOL) 325 MG tablet Take 1 tablet (325 mg total) by mouth every 6 (six) hours as needed. for pain 0 04/10/2023 Active albuterol (PROVENTIL) (2.5 MG/3ML) 0.083% nebulizer solution 0 06/18/2023 Active albuterol 108 (90 Base) MCG/ACT inhaler 0 06/19/2023 Act helen amLODIPine (NORVASC) tablet 10 mg Take 1 tablet (10 mg total) by mouth daily. 0 04/19/2023 Active amitriptyline (ELAVIL) 10 MG tablet TAKE 2-3 TABS BY MOUTH AT BEDTIME 0 05/10/2023 Active Eliquis 5 MG TABS tablet Take 1 tablet (5 mg total) by mouth 2 (two) times a day. for 30 days 0 05/30/2023 Active Aspirin Low Dose 81 MG chewable tablet Chew 1 tablet (81 mg total) by mouth every night at bedtime. 0 04/11/2023 Active atorvastatin (LIPITOR) tablet 20 mg Take 1 tablet (20 mg total) by mouth every night at bedtime. 0 05/30/2023 Active Cholecalciferol (Vitamin D3) 50 MCG (1999 UT) capsule 0 06/16/2023 Active cyclobenzaprine (FLEXERIL) 5 MG tablet TAKE 2 TABLETS ORALLY 3 TIMES A DAY NEEDED FOR FOR MUSCLE SPASM 0 05/30/2023 Active dicyclomine (BENTYL) 10 MG capsule 0 06/19/2023 Active Breo Ellipta 200-25 MCG/ACT AEPB 0 06/19/2023 Active gabapentin (NEURONTIN) 800 MG tablet Take 1 tablet (800 mg total) by mouth 3 (three) times a day. 0 04/11/2023 Active letrozole (FEMARA) 2.5 MG tablet Take 1 tablet (2.5 mg total) by mouth daily for 30 days 0 05/30/2023 Active metoprolol tartrate (LOPRESSOR) 50 MG tablet Take 1 tablet (50 mg total) by mouth 2 (two) times a day. 0 05/30/2023 Active omeprazole (PriLOSEC) 20 MG capsule Take 1 capsule (20 mg total) by mouth daily. 0 04/11/2023 Active oxyCODONE HCl (ROXICODONE) 10 MG TABS TAKE 1 TABLET BY MOUTH EVERY 8 HOURS FOR PAIN FOR 28 DAYS CANCER RELATED PAIN- 0 05/22/2023 Active traZODone (DESYREL) 100 MG tablet TAKE 2 TABLETS BY MOUTH AT BEDTIME 0 05/13/2023 Active predniSONE (DELTASONE) tablet 10 mg 0 06/18/2023 Active Abemaciclib 100 MG TABS Take 100 mg by mouth daily 30 tablet 11 10/08/2023 Active Active Problems Patient Care Coordination No te Formatting of this note migh t be different from the original. New Start - Ibrance 10/03/23 [employer] [facility] Problem Noted Date Diagnosed Date Chest pain on breathing 11/27/2023 Cancer, 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 10/01/2023 Weight loss 09/16/2023 Acute cystitis without hematuria 09/16/2023 Malignant neoplasm of left female breast 024 Malignant neoplasm of upper- outer quadrant of right female breast 06/19/2023 Cancer Staging:Pathologic stage from 02/19/2022:Stage IA(pT1c, pN1, cM0, G2, ER+, AL+, HER2-) - Signed by Tiffany Villavicencio MD on 06/19/2023 Overview: Most recent diagnosis 01/2022, on tamoxifen, stopped due to PE, followed by letrozole started by Dr. Jaramillo on 02/06/2023. Multiple subsegmental pulmon juani emboli without acute cor pulmonale 06/19/2023 Overview: on Tamoxifen Lymphedema of right arm 06/19/2023 Vitamin D deficiency 06/19/2023 Osteopenia of multiple sites 06/19/2023 Family History Medical History Relation Name Comments Cancer Maternal Grandmother esophag eal Cancer Mother colon Relation Name Status Comments Maternal Grandmother Mother Social History Tobacco Use Types Packs/Day Years Used Date Smoking Tobacco: Former Cigarettes Smokeless Tobacco: Former Tobacco Cessation:Counseling Given: Not Answered Alcohol Use Standard Drinks/Week Comments Not Currently 0 (1 standard drink = 0.6 oz pur e alcohol) Sex and Gender Information Value Date Recorded Sex Assigned at Not on file Gender Identity Not on file Sexual Orientation Not on file Job Start Date Occupation Industry Not on file Not on file Not on file Last Filed Vital Signs Vital Sign Reading Time Taken Comments Blood Pressure 129/67 02/19/2024 2:10 PM EDT Pulse 82 02/19/2024 2:10 PM EDT Temperature 36.2 ??C (97.2 ??F) 02/19/2024 2:10 PM ED T Respiratory Rate - - Oxygen Saturation 99% 02/19/2024 2:10 PM EDT Inhaled Oxygen Concentration - - Weight 85 kg (187 lb 6.4 oz) 02/19/2024 2:10 PM EDT Height 147.3 cm (4' 10 ) 02/19/2024 2:10 PM EDT Body Mass Index 39.17 02/19/2024 2:10 PM EDT Plan of Treatment Health Maintenance Due Date Last Done Comments Hepatitis C Screening 1950 COVID-19 Vaccine (#1) 1953 Pneumococcal Vaccine (1 of 2 - PCV) 1954 Depression Screening 1960 BMI Counseling 1966 Preventative Health Evaluation 1966 DTap / Tdap / Td (1 - Tdap) 1967 Shingrix-Zoster Vaccine (1 of 2) 1967 Fall Risk Assessment 2013 Osteoporosis Screening (DEXA Scan) 2013 RSV Adult > 60+ Yrs or Pregn ant (1 - 1-dose 75+ series) 2023 Influenza Vaccine (#1) 2024 Hepatitis B Vaccines Aged Out No long er eligible based on patient's age to complete this topic RSV Ped < 20 months Aged Out No longe r eligible based on patient's age to complete this topic Care Teams Director Of Pharmacy Relationship Specialty Start Date End Date Milan Mcgraw PA [address] [place] [phone] PCP - General Physician [employer]ing [employer] Operator 06/05/23
--- OUTSIDE RECORDS SUMMARY | 2024-06-29 16:20 | XMS_ITS | Clinical Summary ---
Author Organization [facility] Address [address] [place] [phone] Phone Care Team Providers Care Enrollment Counselor Name Role Phone Milan Mcgraw Primary Care Provider Allergies No known active allergies Medications Medication Sig Dispensed Refills Start Date End Date Status abemaciclib (VERZENIO) 100 mg tablet Take 100 mg by mouth daily 10/08/2023 Active acetaminophen (TYLENOL) 325 mg tablet Take 1 tablet (325 mg total) by mouth every 6 hours as needed. 04/10/2023 Active albuterol 2.5 mg /3 mL (0.083 %) nebulizer solution 06/18/2023 Active albuterol HFA (PROAIR HFA ; PROVENTIL HFA ; VENTOLIN HFA) 90 mcg/actuation inhaler 06/19/2023 Active amitriptyline (ELAVIL) 10 mg tablet TAKE 2-3 TABS BY MOUTH AT BEDTIME 05/10/2023 Active amLODIPine (NORVASC) 10 mg tablet Take 1 tablet (10 mg total) by mouth 1 (one) time each day. 04/19/2023 Active apixaban (Eliquis) 5 mg tablet Take 1 tablet (5 mg total) by mouth 2 (two) times a day. for 30 days 05/30/2023 Active aspirin 81 mg chewable tablet Chew 1 tablet (81 mg total) by mouth every night at bedtime. 04/11/2023 Active atorvastatin (LIPITOR) 20 mg tablet Take 1 tablet (20 mg total) by mouth every night at bedtime. 05/30/2023 Active cholecalciferol (VITAMIN D-3) 50 mcg (2,000 unit) capsule 06/16/2023 Acti ve cyclobenzaprine (FLEXERIL) 5 mg tablet TAKE 2 TABLETS ORALLY 3 TIMES A DAY NEEDED FOR FOR MUSCLE SPASM 05/30/2023 Active dicyclomine (BENTYL) 10 mg capsule 06/19/2023 Active fluticasone furoate-vilanteroL (Breo Ellipta) 200-25 mcg/dose inhaler 06/19/2023 Active gabapentin (NEURONTIN) 800 mg tablet Take 1 tablet (800 mg total) by mouth 3 (three) times a day. 04/11/2023 Active metoprolol tartrate (LOPRESSOR) 50 mg tablet Take 1 tablet (50 mg total) by mouth 2 (two) times a day. 05/30/2023 Active omeprazole (PriLOSEC) [address] capsule Take 1 capsule (20 mg total) by mouth 1 (one) time each day. 04/11/2023 Active oxyCODONE (ROXICODONE) 10 mg immediate release tablet TAKE 1 TABLET BY MOUTH EVERY 8 HOURS FOR PAIN FOR 28 DAYS CANCER RELATED PAIN- 05/22/2023 Active predniSONE (DELTASONE) 10 mg tablet 06/18/2023 Active traZODone (DESYREL) 100 mg tablet TAKE 2 TABLETS BY MOUTH AT BEDTIME 05/13/2023 Active letrozole (FEMARA) 2.5 mg tablet Take 1 tablet (2.5 mg total) by mouth 1 (one) time each day Take with or without food.Take 1 tablet (2.5 mg total) by mouth daily for 30 days 90 tablet 3 04/06/2024 04/06/2025 Active Active Problems Problem Noted Date Diagnosed Date Chest pain on breathing 11/27/2023 Cancer, 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 10/01/2023 Acute cystitis without hematuria 09/16/2023 Weight loss 09/16/2023 Lymphedema of right arm 06/19/2023 Malignant neoplasm of left female breast 024 Malignant neoplasm of upper- outer quadrant of right female breast 06/19/2023 Overview (02/20/2024): Most recent diagnosis 01/2022, on tamoxifen, stopped due to PE, followed by letrozole started by Dr. Jaramillo on 02/06/2023. Multiple subsegmental pulmon juani emboli without acute cor pulmonale 06/19/2023 Overview (02/20/2024): on Tamoxifen Osteopenia of multiple sites 06/19/2023 Vitamin D deficiency 06/19/2023 Encounters Date Type Department Care Team Description 05/12/2024 2:15 PM EST Office Visit [facility] Hematology Oncology [address] [place] [phone] Tiffany Nava MD Malignant neoplasm of overlapping sites of left breast in female, estrogen receptor positive (CMS/HCC) (Primary Dx); Malignant neoplasm of upper-outer quadrant of right breast in female, estrogen receptor positive (CMS/HCC); Cancer, 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 (CMS/HCC); Vitamin D deficiency; Lymphedema of left arm from Last 3 Months Surgical History Surgery Date Site/Laterality Comments MASTECTOMY PROCEDURE:MASTECTOMY APPENDECTOMY PROCEDURE:APPENDECTOMY CHOLECYSTECTOMY PROCEDURE:CHOLECYSTECTOMY COLONOSCOPY PROCEDURE:COLONOSCOPY Medical History Medical History Date Comments Breast cancer (CMS/HCC) DX:Breas t cancer (HCC) Hypertension DX:Hypertension COPD (chronic obstructive pu lmonary disease) (CMS/HCC) DX:COPD (chronic obstructive pulmonary disease) (HCC) Family History Medical History Relation Name Comments Cancer Maternal Grandmother esophag eal Cancer Mother colon Relation Name Status Comments Maternal Grandmother Mother Social History Tobacco Use Types Packs/Day Years Used Date Smoking Tobacco: Former Smokeless Tobacco: Former Tobacco Cessation:Counseling Given: Not Answered Alcohol Use Standard Drinks/Week Comments Not Currently 0 (1 standard drink = 0.6 oz pur e alcohol) Sex and Gender Information Value Date Recorded Sex Assigned at Not on file Gender Identity Not on file Sexual Orientation Not on file Job Start Date Occupation Industry Not on file Not on file Not on file Obstetrics History Last Filed Vital Signs Vital Sign Reading Time Taken Comments Blood Pressure 174/95 05/12/2024 2:23 PM EST Pulse 65 05/12/2024 2:23 PM EST Temperature 36.2 ??C (97.1 ??F) 05/12/2024 2:23 PM ES T Respiratory Rate - - Oxygen Saturation 100% 05/12/2024 2:23 PM EST Inhaled Oxygen Concentration - - Weight 82.8 kg (182 lb 9.6 oz) 05/12/2024 2:23 P M EST Height 147.3 cm (4' 10 ) 02/19/2024 2:10 PM EDT Body Mass Index 38.16 02/19/2024 2:10 PM EDT Plan of Treatment Upcoming Encounters Date Type Department Care Team (Late st Contact Info) Description 07/13/2024 2:15 PM EST Office Visit [facility] Hematology Oncology [address] [place] [phone] Tiffany Nava MD [address] [place] [address] Health Maintenance Due Date Last Done Comments Zoster Vaccines (1 of 2) 1969 RSV Immunization Patients 60+ Years Old (1 - 1-dose 75+ series) 2023 Depression Screening 12/17/2023 Falls Risk Assessment 12/17/2023 Hepatitis C Screening 12/17/2023 Osteoporosis Screening (Bone Density Screening) 12/17/2023 Social Influencers of Health Screening 12/17/2023 COVID-19 Vaccine ( season) 2024 07/15/2021, 08/16/2020, 07/19/2020 DTaP,Tdap,and Td Vaccines (2 - Td or Tdap) 03/28/2030 03/28/2020 Pneumococcal Vaccine: 65+ Years Completed 02/16/2022, 03/28/2020 Influenza Vaccine Completed 03/19/2024, , 02/13/2021, Additional history exists HIB Vaccines Aged Out No longer eligi ble based on patient's age to complete this topic HPV Vaccines Aged Out No longer eligi ble based on patient's age to complete this topic Hepatitis A Vaccines Aged Out No long er eligible based on patient's age to complete this topic Hepatitis B Vaccines Aged Out No long er eligible based on patient's age to complete this topic IPV Vaccines Aged Out No longer eligi ble based on patient's age to complete this topic MMR Vaccines Aged Out No longer eligi ble based on patient's age to complete this topic Meningococcal ACWY Vaccine Aged Out N o longer eligible based on patient's age to complete this topic RSV Immunization Patients Under 20 months Aged Out No longer eligible based on patient's age to complete this topic Varicella Vaccines Aged Out No longer eligible based on patient's age to complete this topic Procedures Procedure Name Priority Date/Time Associated Diagnosis Comments CBC WITH AUTO DIFFERENTIAL Routine 05/12/2024 2:57 PM EST Malignant neoplasm of overlapping sites of left breast in female, estrogen receptor positive (CMS/HCC) CBC AND DIFFERENTIAL Routine 05/12/2024 2:57 PM EST Malignant neoplasm of overlapping sites of left breast in female, estrogen receptor positive (CMS/HCC) COMPREHENSIVE METABOLIC PANEL Routine 05/12/2024 2:57 PM EST Malignant neoplasm of overlapping sites of left breast in female, estrogen receptor positive (CMS/HCC) CANCER ANTIGEN 27-29 Routine 05/12/2024 2:57 PM EST Malignant neoplasm of overlapping sites of left breast in female, estrogen receptor positive (CMS/HCC) from Last 3 Months Results * (ABNORMAL) CBC auto differential (05/12/2024 2:57 PM EST) WBC 9.2 4.8 - 10.8 K/mcL LAB HEMETOLOGY METHOD 05/12/2024 4:47 PM [facility] RBC 3.90 3.80 - 4.80 M/mcL LAB HEMETOLOGY METHOD 05/12/2024 4:47 PM [facility] Hemoglobin 12.1 11.5 - 16.0 g/dL LAB HEMETOLOGY METHOD 05/12/2024 4:47 PM [facility] Hematocrit 38.5 35.0 - 47.0 % LAB HEMETOLOGY METHOD 05/12/2024 4:47 PM [facility] MCV 98.7(H) 79.0 - 98.0 FL LAB HEMETOLOGY METHOD 05/12/2024 4:47 PM [facility] MCH 31.0 27.0 - 32.0 pcg LAB HEMETOLOGY METHOD 05/12/2024 4:47 PM [facility] MCHC 31.4(L) 32.0 - 37.0 g/dL LAB HEMETOLOGY METHOD 05/12/2024 4:47 PM [facility] RDW 14.7 11.0 - 15.0 % LAB HEMETOLOGY METHOD 05/12/2024 4:47 PM [facility] Platelets 401(H) 130 - 400 K/mcL LAB HEMETOLOGY METHOD 05/12/2024 4:47 PM [facility] MPV 10.0 7.0 - 11.0 FL LAB HEMETOLOGY METHOD 05/12/2024 4:47 PM [facility] NRBC 0.0 <1.0 % LAB HEMETOLOGY METHOD 05/12/2024 4:47 PM [facility] NRBC Absolute 0.00 <0.10 K/mcL LAB HEMETOLOGY METHOD 05/12/2024 4:47 PM [facility] Neutrophils Relative 54.5 % LAB HEMETOLOGY METHOD 05/12/2024 4:47 PM [facility] Lymphocytes Relative 35.1 % LAB HEMETOLOGY METHOD 05/12/2024 4:47 PM [facility] Monocytes Relative 7.0 % LAB HEMETOLOGY METHOD 05/12/2024 4:47 PM [facility] Eosinophils Relative 1.5 % LAB HEMETOLOGY METHOD 05/12/2024 4:47 PM [facility] Basophils Relative 0.9 % LAB HEMETOLOGY METHOD 05/12/2024 4:47 PM [facility] Immature Granulocytes Relative 1.0 % LAB HEMETOLOGY METHOD 05/12/2024 4:47 PM [facility] Neutrophils Absolute 4.99 1.50 - 7.00 K/mcL LAB HEMETOLOGY METHOD 05/12/2024 4:47 PM [facility] Lymphocytes Absolute 3.21 1.00 - 5.00 K/mcL LAB HEMETOLOGY METHOD 05/12/2024 4:47 PM EST [facility] Monocytes Absolute 0.64 0.20 - 1.00 K/[facility] LAB HEMETOLOGY METHOD 05/12/2024 4:47 PM EST [facility] Eosinophils Absolute 0.14 0.00 - 0.50 K/[facility] LAB HEMETOLOGY METHOD 05/12/2024 4:47 PM EST [facility] Basophils Absolute 0.08 0.00 - 0.20 K/[facility] LAB HEMETOLOGY METHOD 05/12/2024 4:47 PM EST [facility] Immature Granulocytes Absolute 0.09(H) 0.00 - 0.03 K/[facility] LAB HEMETOLOGY METHOD 05/12/2024 4:47 PM EST [facility] Blood Venous blood specimen / Unknown Venipuncture / Unknown 05/12/2024 2:57 PM EST 05/12/2024 4:37 PM EST Subramjose angel Nava MD LAB BLOOD O RDERABLES [facility] [address] [place] [address], * Cancer antigen 27-29 (05/12/2024 2:57 PM EST) CA 27.29 <17.5 <38.6 U/mL 05/15/2024 10:10 AM EST [facility] Comment: The Siemens Advia Centaur [id number] Chemiluminescent Immunoassay is used. Results obtained with different assay methods or kits cannot be used interchangeably. Results cannot be interpreted as absolute evidence of the presence or absence of malignant disease. Test performed at [facility], [address], [place], [place] [address] ? [phone] Mary Albrecht MD, PhD - Rehabilitation Counselor Blood Venous blood specimen / Unknown Venipuncture / Unknown 05/12/2024 2:57 PM EST 05/12/2024 4:36 PM EST Subramjose angel Nava MD LAB BLOOD O RDERABLES [facility] [address] [place] [address] * (ABNORMAL) Comprehensive metabolic panel (05/12/2024 2:57 PM EST) Sodium 140 133 - 145 mmol/L LAB CHEMISTRY METHOD 05/12/2024 5:26 PM [facility] Potassium 4.4 3.5 - 5.5 mmol/L LAB CHEMISTRY METHOD 05/12/2024 5:26 PM [facility] Chloride 105 96 - 110 mmol/L LAB CHEMISTRY METHOD 05/12/2024 5:26 PM [facility] CO2 27 21 - 32 mmol/L LAB CHEMISTRY METHOD 05/12/2024 5:26 PM [facility] Anion Gap 8 3 - 11 LAB CHEMISTRY METHOD 05/12/2024 5:26 PM [facility] Glucose 92 70 - 100 mg/dL LAB CHEMISTRY METHOD 05/12/2024 5:26 PM [facility] BUN 26(H) 5 - 25 mg/dL LAB CHEMISTRY METHOD 05/12/2024 5:26 PM [facility] Creatinine 1.53(H) 0.50 - 1.10 mg/dL LAB CHEMISTRY METHOD 05/12/2024 5:26 PM [facility] eGFR 35(L) >=60 mL/min/1. 73m2 LAB CHEMISTRY METHOD 05/12/2024 5:26 PM [facility] Comment:Calculation based on the??Chronic Kidney Disease Epidemiology Collaboration (CKD-EPI) equation refit??without adjustment for race. BUN/Creatinine Ratio 17.0 LAB CHEMISTRY METHOD 05/12/2024 5:26 PM [facility] Calcium 9.8 8.5 - 10.5 mg/dL LAB CHEMISTRY METHOD 05/12/2024 5:26 PM [facility] AST (SGOT) 20 10 - 42 unit/L LAB CHEMISTRY METHOD 05/12/2024 5:26 PM [facility] ALT (SGPT) 23 10 - 60 unit/L LAB CHEMISTRY METHOD 05/12/2024 5:26 PM [facility] Alkaline Phosphatase 94 42 - 121 unit/L LAB CHEMISTRY METHOD 05/12/2024 5:26 PM [facility] Total Protein 7.1 6.0 - 8.0 g/dL LAB CHEMISTRY METHOD 05/12/2024 5:26 PM [facility] Albumin 3.7 3.2 - 5.0 g/dL LAB CHEMISTRY METHOD 05/12/2024 5:26 PM [facility] Total Bilirubin 0.2 0.0 - 1.4 mg/dL LAB CHEMISTRY METHOD 05/12/2024 5:26 PM [facility] Blood Venous blood specimen / Unknown Venipuncture / Unknown 05/12/2024 2:57 PM EST 05/12/2024 4:37 PM EST Subramjose angel Nava MD LAB BLOOD O RDERABLES [facility] [address] [place] [address], from Last 3 Months Care Teams Enrollment Counselor Relationship Specialty Start Date End Date Milan Mcgraw PA [address] [place] [address] PCP - General 06/05/23
== END 2024-06-29 14:45 | disposition home or self-care (01) ==
LOC: HO.LAB 14:44
PROVIDERS: PCP Physician Assistant; Visit Provider Physician Assistant
DX: R29.898 Other symptoms and signs involving the musculoskeletal system (principal); E11.65 Type 2 diabetes mellitus with hyperglycemia; I10 Essential (primary) hypertension; R30.0 Dysuria; N39.0 Urinary tract infection, site not specified
CPT/HCPCS: 36415; 80048; 80053; 80061; 81001; 82043; 82570; 85027; 87086

== ENCOUNTER → 2024-07-02 11:00 | Outpatient (BNVA) | payer OTHER, SELFPAY | PROVIDERS: PCP Physician Assistant; Visit Provider Surgery | DX: Z90.13 Acquired absence of bilateral breasts and nipples (principal); Z85.3 Personal history of malignant neoplasm of breast | CPT/HCPCS: 99212 ==

== ENCOUNTER 2024-08-18 11:48 | Outpatient (AMB) | payer OTHER, SELFPAY ==
[2024-08-18 12:07] VITALS: BP 140/90; PULSE 70; TEMP 36.1; O2SAT 98; BMI 38.5
--- NOTE | 2024-08-18 12:07 | A.OFFPC_ITS ---
Vital Signs 08/18/24 12:07 Height 4 ft 9 in Weight 178 lb 2 oz BMI 38.5 BP 140/90 H Blood Pressure Location Lt brachial Position Sitting Pulse 70 Pulse Source Pulse Oximeter Temp 96.9 F Temp Source Temporal Artery Scan Pulse Oximetry (%) 98 Oxygen Delivery Method Room Air Intake Visit Reasons: f/u pain manamgent Trim Installer Required: No Accompanied by: Granddaughter Allergies No Known Allergies [No Known Allergies*] Allergy (Verified 08/18/24 12:24) Medication List - Last Reconciled 08/18/24 by Milan Mcgraw PA-C abemaciclib (Verzenio) 100 mg PO DAILY acetaminophen 325 mg PO Q6H PRN 30 days albuterol sulfate 90 mcg/actuation 1 puff PO QID PRN albuterol sulfate 2.5 mg (3 mL) inhalation Q6H PRN 30 days amitriptyline 10 mg PO BEDTIME 90 days amlodipine 10 mg PO DAILY apixaban (Eliquis) 5 mg PO BID 90 days atorvastatin 20 mg PO BEDTIME blood sugar diagnostic (FreeStyle Lite Strips) As directed blood-glucose meter (FreeStyle Lite Meter kit) As directed budesonide-formoterol 80-4.5 mcg/actuation (Symbicort) 2 puffs inhalation BID 30 days chair, wheel (Wheel chair) Need for transfer wheelchair chair, wheel (Wheel chair) As directed cholecalciferol (vitamin D3) (Vitamin D3) 50 mcg PO DAILY cyclobenzaprine 10 mg PO TID 30 days diaper,brief,adult,disposable (Protective Underwear Ex-Large) 2xl size Briefs. dicyclomine 20 mg (2 x 10 mg) PO QID 30 days escitalopram oxalate 5 mg PO DAILY 30 days fluticasone furoate-vilanterol 200-25 mcg/dose (Breo Ellipta) 1 inh inhalation DAILY 30 days furosemide (Lasix) 20 mg PO DAILY 30 days gabapentin 800 mg PO TID 90 days glimepiride 1 mg PO DAILY glyburide mg PO incontinence pad, liner, disp As directed lancets (FreeStyle Lancets) As directed letrozole 2.5 mg PO DAILY memantine 28 mg PO DAILY 30 days metoprolol tartrate 50 mg PO BID mirtazapine (Remeron) 15 mg PO BEDTIME 30 days miscellaneous medical supply (Blood Pressure Cuff) As directed miscellaneous medical supply 1 ea miscellaneous DAILY 90 days miscellaneous medical supply 1 ea miscellaneous DAILY 99 days miscellaneous medical supply 1 ea miscellaneous DAILY 99 days miscellaneous medical supply 1 ea miscellaneous DAILY 99 days miscellaneous medical supply 1 ea miscellaneous .nightly 99 days nebulizers (AeroEclipse II Nebulizer) As directed nebulizers As directed omeprazole 20 mg PO DAILY 90 days oxycodone 15 mg PO Q8H 28 days trazodone 200 mg (2 x 100 mg) PO BEDTIME 90 days Tobacco use date assessed: 06/22/24 Dental Screening Dental Screen Date: 06/22/24 HPI f/u pain manamgent HPI Details Patient is a 74-year-old female here today for follow-up visit. She is Maori- speaking only thus used a brusher warp. Patient's past medical history significant for type 2 diabetes, chronic lumbar spine pain, history of breast cancer and is status post bilateral total mastectomy, DVT and bilateral pulmonary embolism(now on Eliquis) major depressive disorder, mild cognitive impairment. --Concern> patient reports right hand an d wrist pain over the last few weeks. She reports the pain is at times intolerable .. DMII: Patient's type 2 diabetes fairly controlled on current dose of metformin. A1c appropriate today at 6.3 . . Obstructive sleep/ Pulmonary embolism /nocturnal hypoxemia: Followed by pulmonology, unable to repeat CT chest. Continues on Eliquis indefinitely. Denies any overt signs of bleeding. . Breast cancer: Is status post bilateral total mastectomy, recently had cyst biopsy which did show recurrent carcinoma. She continues on pain management with oxycodone 15 mg t.i.d. for cancer related pain. She is followed by Oncology at [facility]. She has had a bone scan that did not show any metastatic disease. She continues to be treated by [facility] Oncology Unfortunately patient reports continued pain in her mastectomy sites along with continued lower lumbar spine and cervical spine pain. 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 Depression Arthritis IBS (irritable bowel syndrome) GERD (gastroesophageal reflux disease) Recurrent malignant neoplasm of right breast HTN (hypertension) Traumatic complete tear of right rotator cuff Surgical History Hx of excision of mass (08/14/23) History of excision of lesion (05/30/23) S/P bilateral mastectomy History of bilateral mastectomy (02/19/22) Hx of cholecystectomy Hx of appendectomy Hx of blepharoplasty History of esophagogastroduodenoscopy (EGD) History of lumpectomy of both breasts History of surgery History of colonoscopy S/P ANDRÉS-BSO (total abdominal hysterectomy and bilateral salpingo-oophorectomy) History of lumbar fusion Family History Father Heart problem Mother Heart disease Hypertension Colon cancer Epilepsy Maternal Grandmother Esophageal cancer Daughter Breast cancer Brother Lung cancer Sister Breast cancer Sister Breast cancer, Onset Age: 60 Sister COVID Daughter Acute kidney failure Social History Household Members: None Housing: House Are you a primary healthcare science specialist to a significant other at home: No Do you presently have visiting nurse or other home services: No (granddaughter Sharla helps take care of her) Alcohol intake: never Comment: counts correct Patient Tobacco Use Status: Never used Tobacco e-Cigarette/Vaping Use: Never Used Second Hand Smoke Exposure: No Advance Directives Date on File: 06/13/23 service: No Current occupational status: disabled 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) Hearing needs: No Vision needs: Yes Female Reproductive History Menstrual Age of Menarche: 9 Questionnaire Thrive Questionnaire Date Thrive assessed: 06/18/23 AUDIT C Alcohol Use Questionnaire (AUDIT-C) 2. How many drinks containing alcohol do you have on a typical day when you are drinking?: 1 or 2 3. How often do you have six or more drinks on one occasion?: Never Total Score: 0 OLAYINKA-7 AMB Questionnaire OLAYINKA-7 Date OLAYINKA - 7 assessed: 06/18/23 Source: Developed by Drs. Chinedu Romero, Rosemarie Ballard, Mina Lanier and colleagues, with an educational luis fernando from [employer]. Review of Systems Const Denies headache(s) Eyes Denies loss of vision ENT Denies vertigo, Denies dizziness, Denies headache(s) and Denies sore throat Card Denies chest pain, Denies leg edema and Denies lightheadedness Resp Denies cough, Denies hemoptysis and Denies wheezing GI Denies abdominal pain, Denies melena, Denies constipation, Denies diarrhea and Denies vomiting Denies urinary frequency, Denies dysuria and Denies urinary urgency Musc Denies arthralgias, Denies joint swelling, Denies numbness and Denies tingling Neuro Denies Abnormal speech present, Denies behavioral changes, Denies vertigo, Denies dizziness, Denies headache(s), Denies loss of vision, Denies memory loss, Denies numbness and Denies tingling Psych Denies anxiety, Denies behavioral changes, Denies depression, Denies memory loss and Denies panic attacks Neo/Lymph Denies easy bleeding and Denies easy bruising Aller/Immun Denies wheezing Physical exam (Primary Care) Vital Signs: Last Vital Signs Temp 96.9 F 08/18/24 12:07 Pulse 70 08/18/24 12:07 BP 140/90 H 08/18/24 12:07 Pulse Ox 98 08/18/24 12:07 Oxygen Delivery Method Room Air 08/18/24 12:07 BMI result Body Mass Index 38.5 Tobacco/Smoking Status: Tobacco use Status Tobacco use date assessed 06/22/24 08/18/24 12:10 Patient Tobacco Use Status Never used Tobacco 08/18/24 12:10 e-Cigarette/Vaping Use Never Used 08/18/24 12:10 Thrive Assessment: Date of Thrive Assessment Date Thrive assessed 06/18/23 08/18/24 12:10 Const General: healthy appearing, no acute distress, alert and awake Nutritional Appearance: well nourished Orientation/consciousness: oriented to person, oriented to place and oriented to time HENMT Ears: TM's normal bilaterally General nose exam: Normal nasal mucous membranes and turbinates present Eyes Conjunctivae: conjunctivae normal Sclerae: sclerae normal Pupils: Equal, round and reactive pupils present Neck Neck: Yes no lymphadenopathy and Yes no JVD Thyroid: Thyroid normal Carotids: no bruits Resp Effort & Inspection: normal respiratory effort and not tachypneic Auscultation: no crackles, no rales, no rhonchi and no wheezes Cardio Rate: regular rate Rhythm: regular rhythm Heart sounds: no murmurs and normal S1 and S2 GI Palpation (GI): Soft to palpation, nontender, no hepatomegaly and no splenomegaly Auscultation: normal bowel sounds Skin General skin exam: no rashes or lesions noted and dry skin Neuro General: oriented to person, oriented to place and oriented to time Cranial nerves: Yes Equal, round and reactive pupils present Speech: No Abnormal speech present Gait exam (Neuro): Normal gait present Motor exam (neuro): no tremor noted Extrem Right upper extremity: full ROM Left upper extremity: full ROM Right lower extremity: full ROM; no edema Left lower extremity: full ROM; no edema Psych Mental Status: mental status grossly normal Speech and movement: Normal speech and movement present Affect: normal affect Attitude: cooperative Thought process: Normal thought process present Coding Level of Care Code Est Pt Level 4 (91731) Diagnoses Right wrist pain M25.531 Right hand pain M79.641 Type 2 diabetes mellitus with hyperglycemia, without long-term current use of insulin E11.65 Diabetes mellitus long wall shear operator insulin use: without long wall shear operator use Diabetes mellitus complication status: with hyperglycemia Essential hypertension I10 Hypertension type: essential hypertension Recurrent malignant neoplasm of right breast C50.911 Acute deep vein thrombosis (DVT) of left lower extremity, unspecified vein I82.402 DVT location: lower extremity Affected thrombotic vein of extremity: unspecified vein of extremity Chronicity: acute Laterality: left Uncomplicated opioid dependence F11.20 Substance use status: uncomplicated Assessment & Plan Assessment & Plan (1) Right wrist pain: Code(s): M25.531 - Pain in right wrist Category: Medical Plan: Will send for x-ray due to reports of right wrist and hand pain. (2) Right hand pain: Code(s): M79.641 - Pain in right hand Category: Medical Plan: As above (3) DMII (diabetes mellitus, type 2): Code(s): E11.9 - Type 2 diabetes mellitus without complications Category: Medical Qualifiers: Diabetes mellitus long wall shear operator insulin use: without prison use Diabetes mellitus complication status: with hyperglycemia Qualified Code(s): E11.65 - Type 2 diabetes mellitus with hyperglycemia Plan: Most recent A1c acceptable. Patient interested in losing some weight thus will like to start Ozempic for glycemic control and added benefit of weight loss. . Will continue her current dose of antihyperglycemic medication with goal A1c to remain below 7.0 (4) HTN (hypertension): Code(s): I10 - Essential (primary) hypertension Category: Medical Qualifiers: Hypertension type: essential hypertension Qualified Code(s): I10 - Essential (primary) hypertension Plan: Patient's blood pressure acceptable today in office. Will continue her current dose of antihypertensive medication with goal blood pressure to be below 140 over 90. (5) Recurrent malignant neoplasm of right breast: Code(s): C50.911 - Malignant neoplasm of unspecified site of right female breast Category: Medical Plan: Patient followed by Oncology with no recent reoccurrence of her breast neoplasm. Had a bone scan in November of 2023 that did not show any metastatic disease. Patient does use oxycodone 15 mg Q 8 hours for her cancer related breast pain and lower back pain (6) DVT (deep venous thrombosis): Code(s): I82.409 - Acute embolism and thrombosis of unspecified deep veins of unspecified lower extremity Category: Medical Qualifiers: DVT location: lower extremity Affected thrombotic vein of extremity: unspecified vein of extremity Chronicity: acute Laterality: left Qualified Code(s): I82.402 - Acute embolism and thrombosis of unspecified deep veins of left lower extremity Plan: Patient has a history of DVT pulmonary embolism in the setting of malignancy. Continues on anticoagulation with Eliquis without any overt signs of bleeding. Continues to have her recurrent breast cancer managed by Oncology at [facility] . (7) Opiate dependence: Code(s): F11.20 - Opioid dependence, uncomplicated Category: Medical Qualifiers: Substance use status: uncomplicated Qualified Code(s): F11.20 - Opioid dependence, uncomplicated Plan: Patient continues on a fairly moderate dose of oxycodone for cancer related pain though was on pain medication previously. She does have opiate dependency. Orders: Orders XR wrist RT 2V 08/18/24 M25.531 - Pain in right wrist XR hand RT 2V 08/18/24 M79.641 - Pain in right hand Referrals Orthopedics Referral M79.641 - Pain in right hand Medications: New semaglutide (Ozempic) 0.5 mg (0.736 mL) subcut QWEEK 4 weeks 3 mL 1RF E11.65 - Type 2 diabetes mellitus with hyperglycemia diclofenac sodium 3% 1 appl topical BID 4 weeks 100 grams 0RF M25.531 - Pain in right wrist
== END 2024-08-18 12:40 | disposition home or self-care (01) ==
LOC: HO.HMCH 11:49
PROVIDERS: PCP Physician Assistant; Visit Provider Physician Assistant
DX: M25.531 Pain in right wrist (principal); M79.641 Pain in right hand; E11.65 Type 2 diabetes mellitus with hyperglycemia; I10 Essential (primary) hypertension; C50.911 Malignant neoplasm of unspecified site of right female breast; I82.402 Acute embolism and thrombosis of unspecified deep veins of left lower extremity; F11.20 Opioid dependence, uncomplicated

== ENCOUNTER → 2024-08-18 11:48 | Outpatient (BNVA) | payer OTHER, SELFPAY | PROVIDERS: PCP Physician Assistant; Visit Provider Physician Assistant | DX: M25.531 Pain in right wrist (principal); M79.641 Pain in right hand; E11.65 Type 2 diabetes mellitus with hyperglycemia; I10 Essential (primary) hypertension; C50.911 Malignant neoplasm of unspecified site of right female breast; I82.402 Acute embolism and thrombosis of unspecified deep veins of left lower extremity; F11.20 Opioid dependence, uncomplicated | CPT/HCPCS: 99212 ==

== ENCOUNTER 2024-09-01 10:38 | Outpatient (REF) | payer OTHER, SELFPAY ==
--- NOTE | ~2024-09-01 | XR_ITS ---
EXAMINATION: XR HAND, RIGHT CLINICAL INFORMATION: M79.641 - Pain in right hand COMPARISON: None available. TECHNIQUE: PA, lateral, and oblique views of the right hand. FINDINGS: Joint space narrowing and ulnar deviated fifth metacarpophalangeal joint. No acute cortical disruption. Sclerosis at the articular surface of the epiphysis right radius. No lytic or blastic lesions. XR/XR hand RT 2V IMPRESSION: Degenerative changes with probable old ulnar deviated subluxation fifth metacarpal phalangeal joint. Electronically signed by: Erich Sky MD 09/01/2024 02:12 PM EDT
--- NOTE | ~2024-09-01 | XR_ITS ---
EXAMINATION: XR WRIST, RIGHT CLINICAL INFORMATION: M25.531 - Pain in right wrist COMPARISON: None available. TECHNIQUE: PA, lateral, and oblique views of the right wrist. Scaphoid projection. FINDINGS: Carpal bones are intact. Normal alignment. Sclerosis at the articular surface of the epiphysis right radius. Slight ulnar deviation at the fifth metacarpophalangeal joint. XR/XR wrist RT 2V IMPRESSION: No acute fracture, carpal bones. Electronically signed by: Erich Sky MD 09/01/2024 02:19 PM EDT
--- OUTSIDE RECORDS SUMMARY | 2024-09-01 14:41 | XMS_ITS | Clinical Summary ---
Author Organization [facility] Address [address] [place] [phone] Phone Care Team Providers Care Reporting Consultant Name Role Phone Milan Mcgraw Primary Care Provider [phone] Allergies No known active allergies Medications acetaminophen [...] Description 07/22/2024 11:00 AM EST Office Visit [facility] Hematology Oncology [address] [place] [address] Tiffany Ayers MD Malignant neoplasm [...] Description 09/22/2024 11:30 AM EDT Office Visit [facility] Hematology Oncology [address] [place] [address] Tiffany Nava MD [address] [place] [address] Health Maintenance Due Date Last [...] K/mcL LAB HEMETOLOGY METHOD 07/22/2024 1:52 PM [facility] RBC 3.60(L) 3.80 - 4.80 M/mcL LAB HEMETOLOGY METHOD 07/22/2024 1:52 PM [facility] Hemoglobin 11.5 11.5 - 16.0 g/dL LAB HEMETOLOGY METHOD 07/22/2024 1:52 PM [facility] Hematocrit 36.7 35.0 - 47.0 % LAB HEMETOLOGY METHOD 07/22/2024 1:52 PM [facility] MCV 101.9(H) 79.0 - 98.0 FL LAB HEMETOLOGY METHOD 07/22/2024 1:52 PM [facility] MCH 31.9 27.0 - 32.0 pcg LAB HEMETOLOGY METHOD 07/22/2024 1:52 PM [facility] MCHC 31.3(L) 32.0 - 37.0 g/dL LAB HEMETOLOGY METHOD 07/22/2024 1:52 PM [facility] RDW 14.2 11.0 - 15.0 % LAB HEMETOLOGY METHOD 07/22/2024 1:52 PM [facility] Platelets 328 130 - 400 K/mcL LAB HEMETOLOGY METHOD 07/22/2024 1:52 PM [facility] MPV 9.9 7.0 - 11.0 FL LAB HEMETOLOGY METHOD 07/22/2024 1:52 PM [facility] NRBC 0.0 <1.0 % LAB HEMETOLOGY METHOD 07/22/2024 1:52 PM [facility] NRBC Absolute 0.00 <0.10 K/mcL LAB HEMETOLOGY METHOD 07/22/2024 1:52 PM [facility] Neutrophils Relative 60.8 % LAB HEMETOLOGY METHOD 07/22/2024 1:52 PM [facility] Lymphocytes Relative 26.7 % LAB HEMETOLOGY METHOD 07/22/2024 1:52 PM [facility] Monocytes Relative 8.2 % LAB HEMETOLOGY METHOD 07/22/2024 1:52 PM [facility] Eosinophils Relative 2.9 % LAB HEMETOLOGY METHOD 07/22/2024 1:52 PM [facility] Basophils Relative 0.9 % LAB HEMETOLOGY METHOD 07/22/2024 1:52 PM [facility] Immature Granulocytes Relative 0.5 % LAB HEMETOLOGY METHOD 07/22/2024 1:52 PM [facility] Neutrophils Absolute 3.94 1.50 - 7.00 K/mcL LAB HEMETOLOGY METHOD 07/22/2024 1:52 PM [facility] Lymphocytes Absolute 1.73 1.00 - 5.00 K/mcL LAB HEMETOLOGY METHOD 07/22/2024 1:[address] [facility] Monocytes Absolute 0.53 0.20 - 1.00 K/[facility] LAB HEMETOLOGY METHOD 07/22/2024 1:[address] [facility] Eosinophils Absolute 0.19 0.00 - 0.50 K/[facility] LAB HEMETOLOGY METHOD 07/22/2024 1:[address] [facility] Basophils Absolute 0.06 0.00 - 0.20 K/[facility] LAB HEMETOLOGY METHOD 07/22/2024 1:52 PM EST [facility] Immature Granulocytes Absolute 0.03 0.00 - 0.03 K/[facility] LAB HEMETOLOGY METHOD 07/22/2024 1:[address] [facility] Blood Venous blood specimen / Unknown Venipuncture / Unknown 07/22/2024 12:09 PM EST 07/22/2024 1:34 PM EST us Subramjose angel Nava MD LAB BLOOD ORDERABLE S Final Result [facility] [address] [place] [address], * Cancer antigen 27-29 (07/22/2024 12:09 PM EST) CA 27.29 30.9 <38.6 U/mL 07/27/2024 12:35 PM EST [facility] Comment: The Siemens Advia Centaur [id number] Chemiluminescent Immunoassay is used. Results obtained with different assay methods or kits cannot be used interchangeably. Results cannot be interpreted as absolute evidence of the presence or absence of malignant disease. Test performed at [facility], [address], [place] ??[address] ? [phone] Mary Albrecht MD, PhD - Webfed Offset Press Operator Blood Venous blood specimen / Unknown Venipuncture / Unknown 07/22/2024 12:09 PM EST 07/22/2024 1:34 PM EST Tiffany Nava MD LAB BLOOD ORDERABLE S Final Result [place] [address] * (ABNORMAL) Comprehensive metabolic panel (07/22/2024 12:09 PM EST) Sodium 143 133 - 145 mmol/L LAB CHEMISTRY METHOD 07/22/2024 3:00 PM [facility] Potassium 3.9 3.5 - 5.5 mmol/L LAB CHEMISTRY METHOD 07/22/2024 3:00 PM [facility] Chloride 107 96 - 110 mmol/L LAB CHEMISTRY METHOD 07/22/2024 3:00 PM [facility] CO2 26 21 - 32 mmol/L LAB CHEMISTRY METHOD 07/22/2024 3:00 PM [facility] Anion Gap 10 3 - 11 LAB CHEMISTRY METHOD 07/22/2024 3:00 PM [facility] Glucose 99 70 - 100 mg/dL LAB CHEMISTRY METHOD 07/22/2024 3:00 PM [facility] BUN 21 5 - 25 mg/dL LAB CHEMISTRY METHOD 07/22/2024 3:00 PM [facility] Creatinine 1.35(H) 0.50 - 1.10 mg/dL LAB CHEMISTRY METHOD 07/22/2024 3:00 PM [facility] eGFR 41(L) >=60 mL/min/1. 73m2 LAB CHEMISTRY METHOD 07/22/2024 3:00 PM [facility] Comment:Calculation based on the??Chronic Kidney Disease Epidemiology Collaboration (CKD-EPI) equation refit??without adjustment for race. BUN/Creatinine Ratio 15.6 LAB CHEMISTRY METHOD 07/22/2024 3:00 PM [facility] Calcium 9.3 8.5 - 10.5 mg/dL LAB CHEMISTRY METHOD 07/22/2024 3:00 PM [facility] AST (SGOT) 18 10 - 42 unit/L LAB CHEMISTRY METHOD 07/22/2024 3:00 PM [facility] ALT (SGPT) 17 10 - 60 unit/L LAB CHEMISTRY METHOD 07/22/2024 3:00 PM [facility] Alkaline Phosphatase 90 42 - 121 unit/L LAB CHEMISTRY METHOD 07/22/2024 3:00 PM [facility] Total Protein 7.1 6.0 - 8.0 g/dL LAB CHEMISTRY METHOD 07/22/2024 3:00 PM [facility] Albumin 3.5 3.2 - 5.0 g/dL LAB CHEMISTRY METHOD 07/22/2024 3:00 PM [facility] Total Bilirubin 0.3 0.0 - 1.4 mg/dL LAB CHEMISTRY METHOD 07/22/2024 3:00 PM [facility] Blood Venous blood specimen / Unknown Venipuncture / Unknown 07/22/2024 12:09 PM EST 07/22/2024 1:34 PM EST us Subramjose angel Nava MD LAB BLOOD ORDERABLE S Final Result [facility] [address] [place] [address], from Last 3 Months Insurance [place] - [place] [facility] MEDICAID Care Teams Reporting Consultant Relationship Specialty Start Date End Date Milan Mcgraw PA [address] [place] [address] PCP - General 06/05/23
--- OUTSIDE RECORDS SUMMARY | 2024-09-01 14:41 | XMS_ITS | Data Portability ---
Author Organization [employer] [employer] Address [address] [place] [address] Care Team Providers Care Editor Greeting Card Name Role Phone [facility] Primary Care Provider Assessment No assessment recorded. Plan of Treatment Reminders Order Date Submit Date Provider Last Modified By Organization Details Last Modified Time Details Appointments None record ed. Lab None record ed. Referral None record ed. Procedures None record ed. Surgeries None record ed. Imaging None record ed. Medication Orders None record ed. Patient TargetsNo targets recorded. Patient InstructionsNo instructions recorded. Reason for Referral None Reported. Medical Equipment None Reported. Medications Name Sig Start Date Stop Date Status Note LastModified by Organization Details LastModified Time penicillin V potassium 250 mg tablet TAKE 1 TABLET BY MOUTH TWICE A DAY active Not Available Not Available No t Available cyclobenzapr ine 10 mg tablet TAKE 1 TABLET (10 MG) ORALLY 3 TIMES A DAY NEEDED FOR MUSCLE SPASM FOR 15 DAYS active Not Available Not Available No t Available acetaminophe n 325 mg tablet TAKE 1 TABLET BY MOUTH EVERY 6 HOURS NEEDED FOR PAIN active Not Available Not Available No t Available atorvastatin 20 mg tablet TAKE 1 TABLET BY MOUTH EVERYDAY AT BEDTIME active Not Available Not Available No t Available albuterol sulfate 2.5 mg/3 mL (0.083 %) solution for nebulization USE 1 VIAL INHALED EVERY 6 HOURS NEEDED FOR SHORTNESS OF BREATH OR WHEEZING FOR 30 DAYS active Not Available Not Available Not Available loperamide 2 mg capsule TAKE 2 CAPSULES BY MOUTH EVERY 8 HOURS NEEDED FOR LOOSE STOOL active Not Available Not Available Not Available ibuprofen 800 mg tablet TAKE 1 TABLET BY MOUTH EVERY 8 HOURS NEEDED FOR PAIN active Not Available Not Available No t Available fluconazole 150 mg tablet TAKE 1 TABLET BY MOUTH EVERY 3 DAYS FOR 2 DOSES active Not Available Not Available No t Available Nystop 100,000 unit/gram topical powder APPLY EXTERNALLY TO THE AFFECTED AREA EVERY DAY active Not Available Not Available No t Available FreeStyle Lancets 28 gauge USE TO TEST ONCE DAILY active Not Available Not Available N ot Available metronidazol e 500 mg tablet TAKE 1 TABLET BY MOUTH EVERY 8 HOURS X10 DAYS active Not Available Not Available No t Available amlodipine 5 mg tablet TAKE 1 TABLET BY MOUTH EVERY DAY active Not Available Not Available No t Available doxycycline monohydrate 100 mg tablet TAKE 1 TABLET BY MOUTH EVERY DAY active Not Available Not Available No t Available tramadol 50 mg tablet TAKE 1 TABLET BY MOUTH EVERY 8 HOURS NEEDED PAIN active Not Available Not Available Not Available meloxicam 7.5 mg tablet TAKE 1 TABLET BY MOUTH EVERY DAY active Not Available Not Available No t Available oxycodone-ac etaminophen 5 mg-325 mg tablet TAKE 1 TABLET BY MOUTH EVERY 6 HOURS NEEDED FOR PAIN active Not Available Not Available No t Available citalopram 20 mg tablet TAKE 1 TABLET BY MOUTH DAILY active Not Available Not Available Not Available gabapentin 800 mg tablet TAKE 1 TABLET BY MOUTH TWICE A DAY active Not Available Not Available No t Available trazodone 100 mg tablet TAKE 2 TABLETS BY MOUTH EVERY DAY AT BEDTIME active Not Available Not Available No t Available amitriptylin e 10 mg tablet TAKE 2 OR 3 TABLETS BY MOUTH EVERY DAY AT BEDTIME active Not Available Not Available No t Available amlodipine 10 mg tablet TAKE 1 TABLET BY MOUTH EVERY DAY active Not Available Not Available No t Available doxycycline monohydrate 100 mg capsule TAKE 1 CAPSULE BY MOUTH TWICE A DAY active Not Available Not Available No t Available nystatin 100,000 unit/gram topical cream APPLY TO AFFECTED AREA TWICE A DAY active Not Available Not Available No t Available metoprolol tartrate 50 mg tablet TAKE 1 TABLET BY MOUTH TWICE A DAY active Not Available Not Available No t Available omeprazole 20 mg capsule,sahra yed release TAKE 1 CAPSULE BY MOUTH EVERY DAY active Not Available Not Available No t Available aspirin 81 mg chewable tablet TAKE 1 TABLET BY MOUTH EVERY DAY AT BEDTIME active Not Available Not Available No t Available furosemide 20 mg tablet TAKE 1 TABLET BY MOUTH EVERY DAY active Not Available Not Available No t Available mirtazapine 15 mg tablet TAKE 1 TABLET BY MOUTH EVERYDAY AT BEDTIME active Not Available Not Available No t Available levofloxacin 500 mg tablet TAKE 1 TABLET BY MOUTH EVERY DAY FOR 10 DAYS active Not Available Not Available No t Available albuterol sulfate HFA 90 mcg/actuatio n aerosol inhaler TAKE 1 PUFF BY MOUTH 4 TIMES A DAY X30 DAYS active Not Available Not Available No t Available dicyclomine 10 mg capsule TAKE 2 CAPSULES ORALLY 4 TIMES A DAY FOR 30 DAYS active Not Available Not Available Not Available tamoxifen 20 mg tablet TAKE 1 TABLET BY MOUTH EVERY DAY active Not Available Not Available No t Available amoxicillin 875 mg-potassium clavulanate 125 mg tablet TAKE 1 TABLET BY MOUTH TWICE A DAY active Not Available Not Available No t Available amoxicillin 500 mg-potassium clavulanate 125 mg tablet TAKE 1 TABLET BY MOUTH EVERY 8 HOURS active Not Available Not Available No t Available oxycodone 5 mg tablet TAKE 1 TABLET BY MOUTH EVERY 8 HOURS NEEDED FOR PAIN active Not Available Not Available No t Available Mapap Arthritis Pain 650 mg tablet,exten ded release TAKE 1 TABLET BY MOUTH EVERY 12 HOURS active Not Available Not Available No t Available cyclobenzapr ine 5 mg tablet TAKE 2 TABLETS BY MOUTH 3 TIMES A DAY NEEDED FOR MUSCLE SPASM active Not Available Not Available No t Available FreeStyle Lite Strips USE TO TEST ONCE DAILY DIRECTED active Not Available Not Available Not Available oxycodone 10 mg tablet TAKE 1 TABLET BY MOUTH EVERY 8 HOURS NEEDED FOR PAIN active Not Available Not Available No t Available Vitamin D3 50 mcg (2,000 unit) tablet TAKE 1 TABLET BY MOUTH EVERY DAY active Not Available Not Available No t Available memantine 14 mg capsule sprinkle,ext ended release 24hr TAKE 1 CAPSULE ORALLY DAILY FOR 7 DAYS THEN STOP AND INCREASE TO 21 MG EVERYDAY active Not Available Not Available No t Available memantine 7 mg capsule sprinkle,ext ended release 24hr TAKE 1 CAPSULE ORALLY DAILY FOR 7 DAYS THEN STOP AND INCREASE TO 14 MG EVERYDAY active Not Available Not Available No t Available memantine 21 mg capsule sprinkle,ext ended release 24hr TAKE 1 CAPSULE ORALLY DAILY FOR 7 DAYS THEN STOP AND INCREASE TO 28 MG EVERYDAY active Not Available Not Available No t Available memantine 28 mg capsule sprinkle,ext ended release 24hr TAKE 1 CAPSULE ORALLY DAILY FOR 30 DAYS active Not Available Not Available No t Available Vitals Date Recorded Oxygen saturation Oxygen saturation in Arterial blood by Pulse oximetry Respiratory rate Body temperature Heart rate Systolic blood pressure Diastolic blood pressure Provider Name and Address Organization Details Last Updated DateTime 3 96 % 96 % 14 /min 98.9 [degF] 90 /min 131 mm[Hg] 90 mm[Hg] Not Available [employer] 3 19:00:15 Social History None recorded. Functional Status None recorded. Mental Status None recorded. Family History Nothing Reported. Medical History No medical history recorded. Gynecological HistoryNo gynecological history recorded. Obstetrics History GPAL:G 0 P 0 0 0 0 Past Encounters Encounter ID Performer Location Encounter Start Date Encounter Closed Date Diagnosis/Indication Diagnosis SNOMED-CT Code Diagnosis ICD10 Code Diagnosis Note [id number] Jung Mace MD Main - [facility] [address] [place] [address] 12/22/2022 19:00:13 12/24/2022 16:54:38 Lightheadedness [id number] R42 Dizziness/ weakness/l ightheadne ss in setting of acute on chronic anxiety about health. Normal vitals and orthostati cs. No other acute symptoms at this time (lighthead edness has resolved by this recent visit). Discussed red flag signs for which to seek higher level of care Health Concerns Section Related Observation LastModified by Organization Detai ls LastModified Time None Recorded Concern Status LastModified by Organization Details LastModified Time None Recorded Advance Directives Directive None Recorded Payers Encounter Date Sequence Insurance Name Policy Number Policy Graham Covered Member ID Graham Member ID Guarantor Name 12/22/2022 1 [facility] - DOS ON OR AFTER 2022 - DUAL ELIGIBLE - LONG TERM OPTIONS AND ONE CARE (MEDICARE REPLACEMENT/ADV ANTAGE - HMO) Beatriz Herbert [id number] Beatriz Herbert Notes Date Note Type Note Provider Name and Address Organization Details Recorded Time 12/22/2022 text/html [facility] Nursing Assessment: Chief Complaints: Syncope/Dizziness/L ightheadedness Allergies: Unknown Comments: CG reports the member is feeling unwell and anxious - Dizziness and SOB - CG is concerned she may have been having a panic attack. Denies fever/chills - Member is speaking full sentences. Wesley RICCI ................... ................... ................... ................... ................... ................... ................... ........ Sales Record Clerk Note From Juan Parisi: Dispatched to above residence for the female patient with complaint of weakness, pain, shortness of breath as reported by acute care physician. Upon arrival, pt found laying in bed in no obvious acute distress. Patient is estonian speaking only and all information gathered comes from acute care physician who is bilingual. Patient states to CG my left leg is swollen, hot, red, and i think i have a blood clot . During exam, there was no noted swelling, temp difference, or discoloration. Patient reports pain localized to the anterior of her fowler about senior care up. No noted trauma, pt denies any recent fall. Pt is ambulatory around home without assist and is frequently walking around throughout the day. Patient has a history of anxiety and panic attacks and per the CG once she gets something in her head, she focuses on it and always wants to go to the hospital . Pt has a history of multiple cancers and is S/P double mastectomy's 6 months ago. Patient is on blood thinners and baby ASA. Denies any current shortness of breath. Equal lung sounds and equal chest rise and fall noted. Vitals and assessment are as noted. Pt has a follow up on saturday with PCP for routine medical care. DCAPBTLS -. HEEN T -. EYES [place]. Patient is able to speak in full sentences without having to pause to catch her breath. Ortho vitals taken with minimal change. Patient denies any additional acute complaints at this time. [facility] contacted to discuss pt presentation, concerns, and clinical findings. At this time, [facility] does not order any additional interventions or diagnostics. Pt instructed to follow up with PCP. Pt took 500mg of her own APAP during assessment for pain relief which she has not done all day. Instructed to call EMS, PCP, or visit local ED should symptoms continue, develop acute chest pain, acute shortness of breath, fever, N/V/D, or any additional symptoms. Pt and CG understand and agree. ................... ................... ................... ................... ................... ................... ................... ........ Disposition: Fulfilled Jung Mace MD [address] [place] [address],[address], [place], [address], JAMES COTTO 12/22/2022 20:21:24 OBGyn Episode No OBEpisode recorded.
--- OUTSIDE RECORDS SUMMARY | 2024-09-01 14:41 | XMS_ITS | Clinical Summary ---
Author Organization [facility] Address [address] [place] [address] Care Team Providers Care Machinery Mechanic Name Role Phone Milan Mcgraw Primary Care Provider [phone] Allergies No known active allergies Medications Medication [...] from 02/19/2022:Stage IA(pT1c, pN1, cM0, G2, ER+, AK+, HER2-) - Signed by Tiffany Villavicencio MD [...] age to complete this topic Care Teams Machinery Mechanic Relationship Specialty Start Date End Date Milan Mcgraw PA [address] [place] [phone] PCP - General Physician House Moving Supervisor 06/05/23
[2024-09-01 18:59] LABS: Hematocrit 39.1 % (37.0-47.0); Hemoglobin 12.5 g/dl (12.0-16.0); Mean Platelet Volume 10.1 fL (9.4-12.3); Platelet Count 355 X10*3/uL (160-400); Red Blood Count 4.03 X10*6/uL (4.20-5.50); Red Cell Distribution Width 13.9 % (11.0-16.0); White Blood Count 7.6 X10*3/uL (4.8-10.8)
[2024-09-01 19:08] LABS: Appearance Urine Cloudy; Color Urine Yellow; Glucose Urine UA Negative (Negative); Leukocyte Esterase Urine Large (3+) (Negative); Nitrite Urine Positive (Negative); PH 6.5 (5.0-9.0); UMIC TRIGGER UACC YES; Urine Blood Trace (Negative); Urine Ketones Negative (Negative); Urine Protein Trace mg/dL (Neg-Trace)
[2024-09-01 19:12] LABS: Bacteria Urine 4+ (None Seen); Hyaline Casts Urine 0-2 /LPF (0-2); Squamous Epithelial Cell Urine 0-2 /HPF (0-2); UACC Culture Trigger YES; WBC Urine >50 /HPF (0-5)
== END 2024-09-01 10:39 | disposition home or self-care (01) ==
LOC: HO.HKASLDS 10:38
PROVIDERS: Absent Provider Physician Assistant; PCP Physician Assistant; Visit Provider Nurse Practitioner Family
DX: R30.0 Dysuria (principal); N39.0 Urinary tract infection, site not specified; I10 Essential (primary) hypertension; M25.531 Pain in right wrist; M79.641 Pain in right hand
CPT/HCPCS: 36415; 73100; 73120; 81001; 81003; 85027; 87086; 87088; 87186; 99212

== ENCOUNTER 2024-09-01 10:38 | Outpatient (AMB) | payer OTHER, SELFPAY ==
--- NOTE | 2024-09-01 10:59 | MHC.OFFVIS ---
Vital Signs 09/01/24 11:15 Height 4 ft 9 in Weight 182 lb BMI 39.4 Pulse 56 Pulse Source Pulse Oximeter Pulse Oximetry (%) 98 Oxygen Delivery Method Room Air Intake Visit Reasons: f/u appt Intake Note: Patient presents for follow up cognitive disorder. patient no showed to sleep study Lead Database Administrator Required: Yes Lead Database Administrator Services: Lead Database Administrator Offered & Declined Lead Database Administrator Name: Daughter jenn Allergies No Known Allergies [No Known Allergies*] Allergy (Verified 09/01/24 11:16) Medication List - Last Reconciled 09/01/24 by RINKU Velasquez abemaciclib (Verzenio) 100 mg PO DAILY acetaminophen 325 mg PO Q6H PRN 30 days albuterol sulfate 90 mcg/actuation 1 puff PO QID PRN albuterol sulfate 2.5 mg (3 mL) inhalation Q6H PRN 30 days amitriptyline 10 mg PO BEDTIME 90 days amlodipine 10 mg PO DAILY apixaban (Eliquis) 5 mg PO BID 90 days atorvastatin 20 mg PO BEDTIME blood sugar diagnostic (FreeStyle Lite Strips) As directed blood-glucose meter (FreeStyle Lite Meter kit) As directed budesonide-formoterol 80-4.5 mcg/actuation (Symbicort) 2 puffs inhalation BID 30 days chair, wheel (Wheel chair) Need for transfer wheelchair chair, wheel (Wheel chair) As directed cholecalciferol (vitamin D3) (Vitamin D3) 50 mcg PO DAILY cyclobenzaprine 10 mg PO TID 30 days diaper,brief,adult,disposable (Protective Underwear Ex-Large) 2xl size Briefs. diclofenac sodium 3% 1 appl topical BID 4 weeks dicyclomine 20 mg (2 x 10 mg) PO QID 30 days donepezil 5 mg PO DAILY 30 days escitalopram oxalate 5 mg PO DAILY 30 days fluticasone furoate-vilanterol 200-25 mcg/dose (Breo Ellipta) 1 inh inhalation DAILY 30 days furosemide (Lasix) 20 mg PO DAILY 30 days gabapentin 800 mg PO TID 90 days glimepiride 1 mg PO DAILY glyburide mg PO incontinence pad, liner, disp As directed lancets (FreeStyle Lancets) As directed letrozole 2.5 mg PO DAILY memantine 28 mg PO DAILY 30 days metoprolol tartrate 50 mg PO BID mirtazapine (Remeron) 15 mg PO BEDTIME 30 days miscellaneous medical supply (Blood Pressure Cuff) As directed miscellaneous medical supply 1 ea miscellaneous DAILY 90 days miscellaneous medical supply 1 ea miscellaneous DAILY 99 days miscellaneous medical supply 1 ea miscellaneous DAILY 99 days miscellaneous medical supply 1 ea miscellaneous DAILY 99 days miscellaneous medical supply 1 ea miscellaneous .nightly 99 days nebulizers (AeroEclipse II Nebulizer) As directed nebulizers As directed omeprazole 20 mg PO DAILY 90 days oxycodone 15 mg PO Q8H 28 days semaglutide (Ozempic) 0.5 mg (0.736 mL) subcut QWEEK 4 weeks trazodone 200 mg (2 x 100 mg) PO BEDTIME 90 days HPI Comments Details: 74-yr-old female presents for f/u visit for cognitive impairment in [place], accompanied by her dtr. Pt denies any significant medical history changes. Daughter had discussed with us last week that patient's memory seemed worse, as patient had forgot in about her appointment last week. At that time, we discussed adding low-dose donepezil 5 mg daily Q evening, which they plan to start today. Today, patient reports she is still forgetful. Pt has not had any further episodes of profound confusion. Family continues to help with cooking. Her family helps and her granddtr is her THEATER MANAGER. She continues to live alone in Senior Housing. Patient's daughter forgot about her previously scheduled sleep study to follow-up on status of sleep apnea. Patient does continue to experience daytime sleepiness, snoring, sleep difficulties. Patient and daughter ask if we could request a physiatry consult due to her ongoing RUE pain and swelling status post bilateral mastectomy- states patient needs a RUE edema sleeve- her oncologist had previously referred her, however they would prefer to see someone within [facility] if possible. 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 Depression Arthritis IBS (irritable bowel syndrome) GERD (gastroesophageal reflux disease) Recurrent malignant neoplasm of right breast HTN (hypertension) Traumatic complete tear of right rotator cuff Surgical History Hx of excision of mass (08/14/23) History of excision of lesion (05/30/23) S/P bilateral mastectomy History of bilateral mastectomy (02/19/22) Hx of cholecystectomy Hx of appendectomy Hx of blepharoplasty History of esophagogastroduodenoscopy (EGD) History of lumpectomy of both breasts History of surgery History of colonoscopy S/P ANDRÉS-BSO (total abdominal hysterectomy and bilateral salpingo-oophorectomy) History of lumbar fusion Family History Father Heart problem Mother Heart disease Hypertension Colon cancer Epilepsy Maternal Grandmother Esophageal cancer Daughter Breast cancer Brother Lung cancer Sister Breast cancer Sister Breast cancer, Onset Age: 60 Sister COVID Daughter Acute kidney failure Social History Household Members: None Housing: House Are you a primary specialist wound care to a significant other at home: No Do you presently have visiting nurse or other home services: No (granddaughter Sharla helps take care of her) Alcohol intake: never Comment: counts correct Patient Tobacco Use Status: Never used Tobacco e-Cigarette/Vaping Use: Never Used Second Hand Smoke Exposure: No Advance Directives Date on File: 06/13/23 service: No Current occupational status: disabled 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) Hearing needs: No Vision needs: Yes Female Reproductive History Menstrual Age of Menarche: 9 Physical Exam Vital Signs: Last Vital Signs Pulse 56 09/01/24 11:15 Pulse Ox 98 09/01/24 11:15 Oxygen Delivery Method Room Air 09/01/24 11:15 BMI result Body Mass Index 39.4 Const General: cooperative and no acute distress Resp Effort & Inspection: normal respiratory effort and able to speak in complete sentences Neuro Other: A&O - mild short term memory lapses Cranial nerves: Yes CN's II-XII intact bilaterally Psych Appearance: grossly normal Mental Status: mental status grossly normal Speech and movement: Normal speech and movement present Affect: normal affect Attitude: cooperative Assessment & Plan Assessment & Plan (1) Cognitive disorder: Code(s): F09 - Unspecified mental disorder due to known physiological condition Category: Medical (2) Mild obstructive sleep apnea: Code(s): G47.33 - Obstructive sleep apnea (adult) (pediatric) Category: Medical (3) Excessive daytime sleepiness: Code(s): G47.19 - Other hypersomnia Category: Medical (4) Lymphedema: Code(s): I89.0 - Lymphedema, not elsewhere classified Category: Medical (5) Right upper limb pain: Code(s): M79.601 - Pain in right arm Category: Medical Plan Start low-dose donepezil 5 mg Q evening, explicitly instructed to not take directly with escitalopram or trazodone. Reviewed common side effects including syncope and nausea. Continue Memantine ER 28mg qd Continue amitriptyline 10 mg q.h.s. for sleep Patient is again advised to undergo in-lab sleep study to assess status of sleep apnea, and to requalify for CPAP therapy Continue cognitive, social, and physical activity. I did take the liberty of placing referral for physiatry consult for evaluation for possible RUE sleeve. Will follow-up upon review of above and patient to follow-up in clinic in 6 months or sooner prn. Orders: Orders RT PSG in-lab sleep study Today F09 - Unspecified mental disorder due to known physiological condition, G47.19 - Other hypersomnia, G47.33 - Obstructive sleep apnea (adult) (pediatric), G47.34 - Idiopathic sleep related nonobstructive alveolar hypoventilation, R06.83 - Snoring Referrals Physiatry Referral I89.0 - Lymphedema, not elsewhere classified, M79.601 - Pain in right arm Coding Level of Care Code Est Pt Level 4 (54059) Diagnoses Cognitive disorder F09 Mild obstructive sleep apnea G47.33 Excessive daytime sleepiness G47.19 Lymphedema I89.0 Right upper limb pain M79.601 [place] Sleepiness Scale Questions Sitting and reading: moderate chance of dozing Watching TV: moderate chance of dozing Sitting inactive in a theater, movie etc.: moderate chance of dozing As a passenger in a car for an hour without break: would never doze Lying down in the afternoon when circumstances permit: moderate chance of dozing Sitting and talking to someone: would never doze Sitting quietly after lunch without alcohol: moderate chance of dozing In a car, while stopped for a few minutes in the traffic: would never doze ESS < 10: normal, ESS > 12: pathologic: 10
[2024-09-01 11:15] VITALS: PULSE 56; O2SAT 98; BMI 39.4
--- OUTSIDE RECORDS SUMMARY | 2024-09-01 12:44 | XMS_ITS | Clinical Summary ---
Author Organization [facility] Address [address] [place] [phone] Phone Care Team Providers Care Bus Driver School Name Role Phone Milan Mcgraw Primary Care Provider Allergies No known active allergies Medications acetaminophen (TYLENOL) 325 mg tablet Take 1 [...] D-3) 50 mcg (2,000 unit) capsule 06/16/2023 Activ e cyclobenzaprine (FLEXERIL) 5 mg tablet TAKE 2 TABLETS ORALLY 3 TIMES A DAY NEEDED FOR FOR MUSCLE SPASM 05/30/2023 Active dicyclomine (BENTYL) 10 mg capsule 06/19/2023 Active fluticasone furoate-vilante roL (Breo Ellipta) 200-25 mcg/dose inhaler 06/19/2023 Active [...] for 30 days 90 tablet 3 04/06/2024 Active abemaciclib (VERZENIO) 100 mg tablet Take 100 mg by mouth daily 30 tablet 5 07/22/2024 Active Active Problems Problem Noted Date Diagnosed [...] Encounters Date Type Department Care Team Description 07/22/2024 11:00 AM EST Office Visit [facility] Hematology Oncology [address] [place] [address] Tiffany Ayers MD Malignant neoplasm of overlapping sites of left breast in female, estrogen receptor positive (CMS/HCC) (Primary Dx); Cancer, 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 (CMS/HCC); Multiple subsegmental pulmonary emboli without acute cor pulmonale (CMS/HCC); Weight loss; Vitamin D deficiency from Last 3 Months Surgical History Surgery Date Site/Laterality Comments MASTECTOMY PROCEDURE:MASTECTOMY APPENDECTOMY PROCEDURE:APPENDECTOMY CHOLECYSTECTOMY PROCEDURE:CHOLECYSTECTOMY COLONOSCOPY PROCEDURE:COLONOSCOPY Medical History Medical History Date Comments Breast cancer DX:Breast cancer (HCC) Hypertension DX:Hypertension COPD (chronic obstructive [...] drink = 0.6 oz pur e alcohol) Comments Unknown Sex and Gender Information Value Date Recorded Sex Assigned at Not on file Legal Sex Female 9:04 AM EST Gender Identity Not on file Sexual Orientation Not on file Obstetrics History Last Filed Vital Signs Vital Sign Reading Time Taken Comments Blood Pressure 119/54 07/22/2024 11:46 AM EST Pulse 74 07/22/2024 11:46 AM EST Temperature 36.4 ??C (97.5 ??F) 07/22/2024 11:[address] Respiratory Rate - - Oxygen Saturation 99% 07/22/2024 11:46 AM EST Inhaled Oxygen Concentration - - Weight 83.5 kg (184 lb) 07/22/2024 11:46 AM EST Height 147.3 cm (4' 10 ) 07/22/2024 11:46 AM EST Body Mass Index 38.46 07/22/2024 11:46 AM EST Plan of Treatment Upcoming Encounters Date Type Department Care Team (Late st Contact Info) Description 09/22/2024 11:30 AM EDT Office Visit [facility] Hematology Oncology [address] [place] [address] Tiffany Nava MD [address] [place] [address] Health Maintenance Due Date Last Done Comments Zoster Vaccines (1 of 2) 1969 RSV Immunization Adult Patients (1 - 1-dose 75+ series) 2023 Depression Screening 12/17/2023 Falls Risk Assessment 12/17/2023 Hepatitis C Screening 12/17/2023 Osteoporosis Screening (Bone Density Screening) 12/17/2023 Social Influencers of Health Screening 12/17/2023 COVID-19 Vaccine ( season) 2024 07/15/2021, 08/16/2020, 07/19/2020 DTaP,Tdap,and Td Vaccines (2 - Td or Tdap) 03/28/2030 03/28/2020 Pneumococcal Vaccine: 50+ Years Completed 02/16/2022, 03/28/2020 Influenza Vaccine Completed [...] patient's age to complete this topic Meningococcal B Vaccine Aged Out No l onger eligible based on patient's age to complete this topic RSV Immunization Patients Under 20 months Aged Out No longer eligible based on patient's age to complete this topic Varicella Vaccines Aged Out No longer eligible based on patient's age to complete this topic Procedures Procedure Name Priority Date/Time Associated Diagnosis Comments CBC WITH AUTO DIFFERENTIAL Routine 07/22/2024 12:09 PM EST Malignant neoplasm of overlapping sites of left breast in female, estrogen receptor positive (CMS/HCC) CBC AND DIFFERENTIAL Routine 07/22/2024 12:09 PM EST Malignant neoplasm of overlapping sites of left breast in female, estrogen receptor positive (CMS/HCC) COMPREHENSIVE METABOLIC PANEL Routine 07/22/2024 12:09 PM EST Malignant neoplasm of overlapping sites of left breast in female, estrogen receptor positive (CMS/HCC) CANCER ANTIGEN 27-29 Routine 07/22/2024 12:09 PM EST Malignant neoplasm of overlapping sites of left breast in female, estrogen receptor positive (CMS/HCC) from Last 3 Months Results * (ABNORMAL) CBC auto differential (07/22/2024 12:09 PM EST) WBC 6.5 4.8 - 10.8 K/mcL LAB HEMETOLOGY METHOD 07/22/2024 1:52 PM [facility] RBC 3.60(L) 3.80 - 4.80 M/mcL LAB HEMETOLOGY METHOD 07/22/2024 1:52 PM [facility] Hemoglobin 11.5 11.5 - 16.0 g/dL LAB HEMETOLOGY METHOD 07/22/2024 1:52 PM [facility] Hematocrit 36.7 35.0 - 47.0 % LAB HEMETOLOGY METHOD 07/22/2024 1:52 PM [facility] MCV 101.9(H) 79.0 - 98.0 FL LAB HEMETOLOGY METHOD 07/22/2024 1:52 PM [facility] MCH 31.9 27.0 - 32.0 pcg LAB HEMETOLOGY METHOD 07/22/2024 1:52 PM [facility] MCHC 31.3(L) 32.0 - 37.0 g/dL LAB HEMETOLOGY METHOD 07/22/2024 1:52 PM [facility] RDW 14.2 11.0 - 15.0 % LAB HEMETOLOGY METHOD 07/22/2024 1:52 PM [facility] Platelets 328 130 - 400 K/mcL LAB HEMETOLOGY METHOD 07/22/2024 1:52 PM [facility] MPV 9.9 7.0 - 11.0 FL LAB HEMETOLOGY METHOD 07/22/2024 1:52 PM [facility] NRBC 0.0 <1.0 % LAB HEMETOLOGY METHOD 07/22/2024 1:52 PM [facility] NRBC Absolute 0.00 <0.10 K/mcL LAB HEMETOLOGY METHOD 07/22/2024 1:52 PM [facility] Neutrophils Relative 60.8 % LAB HEMETOLOGY METHOD 07/22/2024 1:52 PM [facility] Lymphocytes Relative 26.7 % LAB HEMETOLOGY METHOD 07/22/2024 1:52 PM [facility] Monocytes Relative 8.2 % LAB HEMETOLOGY METHOD 07/22/2024 1:52 PM [facility] Eosinophils Relative 2.9 % LAB HEMETOLOGY METHOD 07/22/2024 1:52 PM [facility] Basophils Relative 0.9 % LAB HEMETOLOGY METHOD 07/22/2024 1:52 PM [facility] Immature Granulocytes Relative 0.5 % LAB HEMETOLOGY METHOD 07/22/2024 1:52 PM [facility] Neutrophils Absolute 3.94 1.50 - 7.00 K/mcL LAB HEMETOLOGY METHOD 07/22/2024 1:52 PM [facility] Lymphocytes Absolute 1.73 1.00 - 5.00 K/mcL LAB HEMETOLOGY METHOD 07/22/2024 1:52 PM EST [facility] Monocytes Absolute 0.53 0.20 - 1.00 K/[facility] LAB HEMETOLOGY METHOD 07/22/2024 1:52 PM EST [facility] Eosinophils Absolute 0.19 0.00 - 0.50 K/[facility] LAB HEMETOLOGY METHOD 07/22/2024 1:52 PM EST [facility] Basophils Absolute 0.06 0.00 - 0.20 K[facility] LAB HEMETOLOGY METHOD 07/22/2024 1:52 PM EST [facility] Immature Granulocytes Absolute 0.03 0.00 - 0.03 K/[facility] LAB HEMETOLOGY METHOD 07/22/2024 1:52 PM EST [facility] Blood Venous blood specimen / Unknown Venipuncture / Unknown 07/22/2024 12:09 PM EST 07/22/2024 1:34 PM EST us Subramjose angel Nava MD LAB BLOOD ORDERABLE S Final Result [facility] [address] [place] [address], * Cancer antigen 27-29 (07/22/2024 12:09 PM EST) CA 27.29 30.9 <38.6 U/mL 07/27/2024 12:35 PM EST [facility] Comment: The Siemens Advia Centaur [id number] Chemiluminescent Immunoassay is used. Results obtained with different assay methods or kits cannot be used interchangeably. Results cannot be interpreted as absolute evidence of the presence or absence of malignant disease. Test performed at [facility], [address] [place], [place] ??[address] ? [phone] Mary Albrecht MD, PhD - Supervisor Hot Dip Plating Blood Venous blood specimen / Unknown Venipuncture / Unknown 07/22/2024 12:09 PM EST 07/22/2024 1:34 PM EST Tiffany Nava MD LAB BLOOD ORDERABLE S Final Result [place] [address] * (ABNORMAL) Comprehensive metabolic panel (07/22/2024 12:09 PM EST) Sodium 143 133 - 145 mmol/L LAB CHEMISTRY METHOD 07/22/2024 3:00 PM [facility] Potassium 3.9 3.5 - 5.5 mmol/L LAB CHEMISTRY METHOD 07/22/2024 3:00 PM [facility] Chloride 107 96 - 110 mmol/L LAB CHEMISTRY METHOD 07/22/2024 3:00 PM [facility] CO2 26 21 - 32 mmol/L LAB CHEMISTRY METHOD 07/22/2024 3:00 PM [facility] Anion Gap 10 3 - 11 LAB CHEMISTRY METHOD 07/22/2024 3:00 PM [facility] Glucose 99 70 - 100 mg/dL LAB CHEMISTRY METHOD 07/22/2024 3:00 PM [facility] BUN 21 5 - 25 mg/dL LAB CHEMISTRY METHOD 07/22/2024 3:00 PM [facility] Creatinine 1.35(H) 0.50 - 1.10 mg/dL LAB CHEMISTRY METHOD 07/22/2024 3:00 PM [facility] eGFR 41(L) >=60 mL/min/1. 73m2 LAB CHEMISTRY METHOD 07/22/2024 3:00 PM [facility] Comment:Calculation based on the??Chronic Kidney Disease Epidemiology Collaboration (CKD-EPI) equation refit??without adjustment for race. BUN/Creatinine Ratio 15.6 LAB CHEMISTRY METHOD 07/22/2024 3:00 PM [facility] Calcium 9.3 8.5 - 10.5 mg/dL LAB CHEMISTRY METHOD 07/22/2024 3:00 PM [facility] AST (SGOT) 18 10 - 42 unit/L LAB CHEMISTRY METHOD 07/22/2024 3:00 PM [facility] ALT (SGPT) 17 10 - 60 unit/L LAB CHEMISTRY METHOD 07/22/2024 3:00 PM [facility] Alkaline Phosphatase 90 42 - 121 unit/L LAB CHEMISTRY METHOD 07/22/2024 3:00 PM [facility] Total Protein 7.1 6.0 - 8.0 g/dL LAB CHEMISTRY METHOD 07/22/2024 3:00 PM [facility] Albumin 3.5 3.2 - 5.0 g/dL LAB CHEMISTRY METHOD 07/22/2024 3:00 PM [facility] Total Bilirubin 0.3 0.0 - 1.4 mg/dL LAB CHEMISTRY METHOD 07/22/2024 3:00 PM [facility] Blood Venous blood specimen / Unknown Venipuncture / Unknown 07/22/2024 12:09 PM EST 07/22/2024 1:34 PM EST us Subramjose angel Nava MD LAB BLOOD ORDERABLE S Final Result [facility] [address] [place] [address], from Last 3 Months Insurance [place] - [place] [facility] MEDICAID Care Teams Bus Driver School Relationship Specialty Start Date End Date Milan Mcgraw PA [address] [place] [phone] PCP - General 06/05/23
--- OUTSIDE RECORDS SUMMARY | 2024-09-01 12:44 | XMS_ITS | Clinical Summary ---
Author Organization [facility] Address [address] [place] [address] Care Team Providers Care Laboratory Inspector Name Role Phone Milan Mcgraw Primary Care Provider [phone] Allergies No known active allergies Medications Medication [...] from 02/19/2022:Stage IA(pT1c, pN1, cM0, G2, ER+, WA+, HER2-) - Signed by Tiffany Villavicencio MD [...] age to complete this topic Care Teams Laboratory Inspector Relationship Specialty Start Date End Date Milan Mcgraw PA [address] [place] [phone] PCP - General Physician Runner Man 06/05/23
--- OUTSIDE RECORDS SUMMARY | 2024-09-01 12:44 | XMS_ITS | Patient Health Record ---
Author Organization [facility] Address [address] [place] [address] Care Team Providers Care Optoelectronics Engineer Name Role Phone Lesser (RETIRED) Salvatore LEMUS Primary Care Provide r Unavailable Chinedu Kat Unavailable [phone] Reason For Referral No Information Medications Medication SIG (Take, Route, Frequency, Duration) Notes Start Date End Date Status traZODone HCl 100 MG 1 tablet at bedtime as needed Orally Once a day Active fentaNYL 12 MCG/HR (Schedule II Drug) A PPLY 1 PATCH EVERY 48 HOURS Transdermal for 30 Active Naproxen 500 MG 1 tablet Orally ever y 12 hrs Active ProAir HFA 108 (90 Base) MCG/ACT 2 puffs as needed Inhalation Active DULoxetine HCl 60 MG TK ONE C PO ONCE A DAY Oral for 90 Active Citalopram Hydrobromide 20 MG TK 1 T PO QD Oral for 30 Act helen Metoprolol Tartrate 25 MG TK 1 T PO BID WF Oral for 90 Active Spironolactone 25 MG TK 1 T PO QD WITH F OOD Oral for 90 Active Dicyclomine HCl 10 MG 1-2capsules Orally Four times a day prn abdominal pain/cramps for 30 day(s) Active Gabapentin Active oxyCODONE HCl 30 MG (Schedule II Drug) T ERIC 1 TABLET EVERY 4 HOURS MAX 5 TABS A DAY Oral for 30 Active Amitriptyline HCl 10 MG TK 1 T PO HS Oral for 90 Active Imodium A-D 2 MG 1-2 PO QID prn diarr hea for 30 days Active Omeprazole 20 MG 1 capsule Orally Onc e a day Active MiraLax (colon prep) 8.3 ounce ((238) grams mixed with gatorade or crystal light orally begin at 5:00 p.m. the day before the procedure for 1 day 11/25/2019 Active Dulcolax (colon prep) 5 MG take at 3:00 p.m and 7:00p.m. Orally two tablets twice a day for one day for 1 day 11/25/2019 Active Immunizations Vaccine Route Administration Date Status Comme nts Flu vaccine no Preserv 3 and > Unknown 03/02/2014 Admin istered Social History Alcohol Screen Question Answer Notes Did you have a drink contain ing alcohol in the past year? Yes How often did you have a dri nk containing alcohol in the past year? Never (0 point) How many drinks did you have on a typical day when you were drinking in the past year? 1 or 2 drinks (0 point) How often did you have 6 or more drinks on one occasion in the past year? Never (0 point) Points 0 Interpretation Negative Section Notes: Nonsmoker; occasional alcoho l Nonsmoker; occasional alcoho l Nonsmoker; occasional alcoho l Problems Problem Type SNOMED Code ICD Code Onset Dates Problem Status W/U Status Risk Notes Problem 255085804 Encounter for screening for malignant neoplasm of colon (Z12.11) Active confirmed Problem 595491228 Irritable bowel syndrome with diarrhea (K58.0) Active confirmed Problem 271588011 Gastroesophageal reflux disease without esophagitis (K21.9) Active confirmed Problem 486462091 Family history o f colon cancer (Z80.0) Active confirmed Plan Of Treatment Future Test Test Name Order Date UPPER GI ENDOSCOPY 11/02/2014 COLONOSCOPY 11/02/2014 COLONOSCOPY 11/25/2019 Insurance Providers Payer Name Payer Address Payer Phone Subscriber Number Group Number Insured Name Patient Relationship to Insured Coverage Start Date Coverage End Date [facility] [address] [place] [address] [id number] ANA CRISTINA LOZANO Self - patient is the insured MEDICAID OF [employer] [address] [place] [phone] [id number] ANA CRISTINA LOZANO Self - patient is the insured Medical (General) History Medical History History ICD Code Breast cancer on the right w ith surgery as below; left breast with precancerous cells and had XRT only Denies NM,DM,CVA,renal disease Depression/Anxiety Asthma Back pain GERD--EGD in 01/2012--small HH, otherwise negative Screening colonoscopy in 01/26 012 was negative except for some diverticulosis and internal hemorrhoids--- she also had a negative colonoscopy in [address] of Abd/Pelvis and normal labs in 08/2014 during an ER visit Neuropathy Hypertension Colonoscopy 11/2014-no polyps, no IBD, bx neg for colitis EGD 11/2014 mod-sized HH, bx negative for celiac disease, no eophagitis Surgical History Surgery Date(Month/Year) Lumpectomy in right breast due to breast cancer 4 back surgeries--had a tempprary TENS u nit that didn't help Katiana SKY
== END 2024-09-01 11:59 | disposition home or self-care (01) ==
LOC: HO.HSMS 10:38
PROVIDERS: PCP Physician Assistant; Visit Provider Nurse Practitioner Family
DX: R41.89 Other symptoms and signs involving cognitive functions and awareness (principal); G47.33 Obstructive sleep apnea (adult) (pediatric); G47.19 Other hypersomnia; I89.0 Lymphedema, not elsewhere classified; M79.601 Pain in right arm
CPT/HCPCS: 99214

== ENCOUNTER → 2024-09-01 13:33 | Outpatient (BNV) | payer OTHER, SELFPAY | PROVIDERS: Absent Provider Physician Assistant; PCP Physician Assistant; Visit Provider Radiology Diagnostic Radiology | DX: M25.531 Pain in right wrist (principal); M19.041 Primary osteoarthritis, right hand | CPT/HCPCS: 73100; 73120 ==

== ENCOUNTER 2024-09-28 11:19 | Inpatient (IN) | payer OTHER, SELFPAY ==
[2024-09-28] VITALS (10 sets, daily range): BP systolic 123–158; BP diastolic 68–81; PULSE 61–89; RESP 16–20; TEMP 36.6–36.9; O2SAT 94–98; BMI 34.4
--- NOTE | ~2024-09-28 | CT_ITS ---
EXAMINATION: CT CERVICAL SPINE WITHOUT CONTRAST CLINICAL INFORMATION: Fall, neck pain. COMPARISON: 09/13/2022. TECHNIQUE: Spiral CT imaging of the cervical spine performed in axial plane without contrast. Multiplanar reformatted images were constructed from the axial data set. This CT examination was performed using dose optimization techniques as appropriate, variously including the following: *Automated exposure control *Adjustment of mA and/or kV according to patient size (this includes techniques or standardized protocols for targeted exams where dose is matched to indication/reason for exam; i.e. extremities or head) *Use of iterative reconstruction technique FINDINGS: CORONAL ALIGNMENT: -There is a minimal right convex scoliosis. SAGITTAL ALIGNMENT: -There is a mild reversal of the normal lordosis, centered at C5-6. -There is a 2 mm degenerative anterolisthesis of C3 on C4 and C4 on C5. There is otherwise anatomic alignment. C1-C2 AND CRANIOCERVICAL JUNCTION: -Intact and aligned normally. -There is mild to moderate degenerative arthritis in the anterior atlantoaxial articulation. VERTEBRAL BODIES AND FACETS: -No fracture, traumatic subluxation, compression deformity, or suspicious bone lesion. -There is normal facet alignment bilaterally. No subluxations. -There are moderate to severe multilevel hypertrophic degenerative facet changes bilaterally. These results in multilevel neural foraminal narrowing. DISCS: -Moderate to severe disc degeneration focally at C5-6 and C6-7. Mild associated disc osteophytic spurring mild ventrally and dorsally. -There is otherwise only mild disc degeneration. CENTRAL CANAL: -No evidence of high-grade central canal narrowing or large disc herniation allowing for modality limitations. PREVERTEBRAL AND PARAVERTEBRAL SOFT TISSUES: -No soft tissue swelling or edema. No fluid collections. -Retropharyngeal course of the CCA's. -No thyroid abnormality. LUNG APICES: -Clear bilaterally. CT/CT cervical spine wo IV con IMPRESSION: 1. No CT evidence of acute cervical spine fracture or injury. 2. Moderate diffuse spondylosis. Electronically signed by: Kory Mckenzie MD 09/28/2024 02:25 PM EDT
--- NOTE | ~2024-09-28 | CT_ITS ---
EXAMINATION: CT ABDOMEN PELVIS WITH IV CONTRAST, CT CHEST WITH IV CONTRAST INDICATION: Chest, lower abd pain/low back pain. FALL on eliquis COMPARISON: Comparison is made with the prior chest CT dated 12/24/[address] of the abdomen and pelvis dated 09/09/2023. TECHNIQUE: CT scan of the chest, abdomen and pelvis was performed following administration of 85 mL Omnipaque 350 using standard departmental protocol. Coronal and sagittal reformatted images were generated and reviewed. Oral contrast material was not administered at the request of the referring physician. This CT exam was performed with one or more of the following dose reduction techniques: automated exposure control, adjustment of the mA and/or kV according to patient size, use of iterative reconstruction technique. DLP: 1121 mGy-cm CHEST: THYROID: The thyroid is unremarkable. LUNGS: There is scarring in the right middle lobe and lingula. There is subsegmental atelectasis versus scarring at the lung bases. MEDIASTINUM: There are subcentimeter subcarinal lymph nodes. SARAH: There are subcentimeter bilateral hilar lymph nodes. CARDIOVASCULATURE: The heart is enlarged. There is no pericardial effusion. The thoracic aorta is normal in caliber. DEGREE OF CORONARY CALCIFICATION: none PLEURA: There is no pleural effusion. No pneumothorax. MAIN AIRWAYS: The mainstem bronchi and proximal branches are patent. AXILLA: There is no axillary lymphadenopathy. SOFT TISSUES: The patient is status post right mastectomy. BONES: There is degenerative disc disease of the spine. No fracture is seen. ABDOMEN: LIVER: The liver is normal in size and contour. No liver mass is identified. The hepatic and portal veins are patent. GALLBLADDER / BILE DUCTS: The patient is status post cholecystectomy. There is dilatation of intrahepatic biliary radicles as well as the common bile duct without significant change. SPLEEN: The spleen is normal in size. No focal splenic lesion is identified. PANCREAS: The pancreas is unremarkable in appearance. ADRENAL GLANDS: Within normal limits. KIDNEYS/RETROPERITONEUM: No renal calculi are identified. There is no hydronephrosis. There is a 3.3 cm cyst at the lower pole of the right kidney. The left kidney is unremarkable. LYMPH NODES: No abdominal or pelvic lymphadenopathy. VASCULATURE: The abdominal aorta is normal in caliber. MESENTERY/PERITONEUM: No free fluid. No masses. There is no free intraperitoneal gas. STOMACH: There is a small hiatal hernia. The remainder the stomach is collapsed. SMALL BOWEL: The small bowel is normal in caliber. COLON: The colon is unremarkable. APPENDIX: The appendix is not seen, however no inflammatory changes are seen adjacent to the cecum. URINARY BLADDER/PELVIC ORGANS: The urinary bladder is unremarkable. The patient is status post hysterectomy. BONES / SOFT TISSUES: There is severe degenerative disc disease of the spine. No fracture is seen. CT/CT abdomen pelvis w IV con IMPRESSION: No evidence of traumatic injury to the chest, abdomen, or pelvis. Incidental findings as described above. Electronically signed by: Chinedu Gaspar MD 09/28/2024 02:07 PM EDT
--- NOTE | ~2024-09-28 | CT_ITS ---
EXAMINATION: CT HEAD WITHOUT CONTRAST CLINICAL INFORMATION: Fall, head strike, anticoagulated. COMPARISON: 09/13/2022. TECHNIQUE: Contiguous axial imaging was performed from the skull base to vertex without intravenous administration of contrast. This CT examination was performed using dose optimization techniques as appropriate, variously including the following: *Automated exposure control *Adjustment of mA and/or kV according to patient size (this includes techniques or standardized protocols for targeted exams where dose is matched to indication/reason for exam; i.e. extremities or head) *Use of iterative reconstruction technique FINDINGS: There is no evidence of intracranial hemorrhage or extra-axial fluid collection. There is no mass effect, or edema. No CT evidence of acute territorial infarct. Ventricles, sulci, and cisterns are somewhat diffusely prominent, in keeping with mildly age advanced involutional changes. No hydrocephalus. No midline shift. Negative hyperdense MCA sign. Negative insular ribbon sign. Patchy periventricular and deep white matter hypoattenuation is consistent with moderate small vessel ischemic changes. Mild atheromatous calcification of the bilateral carotid siphons. Globes and orbital contents image normally. No extracranial soft tissue abnormalities. The paranasal sinuses, mastoid air cells, and tympanic cavities are normally aerated. No suspicious bony abnormalities. There are no acute fractures evident. CT/CT head/brain wo IV con IMPRESSION: No acute intracranial abnormality.. Electronically signed by: Kory Mckenzie MD 09/28/2024 02:19 PM EDT
--- NOTE | 2024-09-28 11:42 | ECG_ITS ---
Test Reason : chest pain Blood Pressure : */* mmHG Vent. Rate : 60 BPM Atrial Rate : 60 BPM P-R Int : 126 ms QRS Dur : 80 ms QT Int : 436 ms P-R-T Axes : 35 -33 -7 degrees QTcB Int : 436 ms Normal sinus rhythm with sinus arrhythmia Left axis deviation T inversion inferior leads Abnormal ECG When compared with ECG of 09-Sep-2023 15:44, Premature atrial complexes are no longer Present Referred By: Generic ED Physician Electronically Signed By: AVE JIMENEZ
--- NOTE | 2024-09-28 11:57 | ED.GENADULT ---
HPI - General Adult General Chief complaint: Upper Respiratory Symptoms Stated complaint: SOB,SICK X2W,RALES,WET COUGH PER EMS Time Seen by Provider: 09/28/24 11:33 Source: patient, family, EMS, RN notes reviewed and old records reviewed Mode of arrival: EMS History of Present Illness ED Provider: Virginie Dasilva PA-C HPI narrative: 74-year-old female with a past medical history DVT/PE on Eliquis, dementia, NSTEMI, sleep apnea, HLD, pulmonary hypertension, asthma, depression, GERD, IBS, HTN presenting to the ED via EMS complaining of URI symptoms with dry cough, fever and SOB x2-3 weeks. Daughter also reports she found patient on the ground last night, suspects patient was on the ground for about 6 hours. Patient lives home alone, ambulates with cane at baseline. Patient reports chest wall pain, lower abdominal and low back pain. Unknown head strike or LOC. denies headache, vomiting, diarrhea. History limited due to patient's baseline dementia Related Data Home Medications ?Medication ?Instructions ?Recorded ?Confirmed letrozole 2.5 mg tablet 2.5 mg PO DAILY 02/15/23 09/01/24 amlodipine 10 mg tablet 10 mg PO DAILY 04/22/23 09/01/24 nebulizers 04/22/23 09/01/24 abemaciclib 100 mg tablet 100 mg PO DAILY 08/18/24 09/01/24 (Verzenio) glyburide 1.25 mg tablet 1.25 mg PO DAILY 08/18/24 09/01/24 furosemide 20 mg tablet (Lasix) 20 mg PO DAILY PRN edema 09/28/24 Previous Rx's ?Medication ?Instructions ?Recorded lancets 28 gauge (FreeStyle #100 ea 10/17/22 Lancets) miscellaneous medical supply #1 ea 10/17/22 (Blood Pressure Cuff) atorvastatin 20 mg tablet 20 mg PO BEDTIME #90 tabs 01/16/23 nebulizers (AeroEclipse II #1 ea 06/18/23 Nebulizer) albuterol sulfate 90 mcg/actuation 1 puff PO QID PRN Shortness Of 08/15/23 aerosol inhaler Breath #8.5 grams chair, wheel (Wheel chair) #1 ea 09/19/23 chair, wheel (Wheel chair) #1 ea 12/19/23 incontinence pad, liner, disp #400 ea 12/19/23 diaper,brief,adult,disposable #56 ea 12/30/23 (Protective Underwear Ex-Large) cyclobenzaprine 10 mg tablet 10 mg PO TID 30 days #90 tabs 01/14/24 omeprazole 20 mg capsule,delayed 20 mg PO DAILY 90 days #90 caps 01/15/24 release budesonide-formoterol HFA 80 2 puff inhalation BID 30 days 01/30/24 mcg-4.5 mcg/actuation aerosol #10.2 grams inhaler (Symbicort) amitriptyline 10 mg tablet 10 mg PO BEDTIME 90 days #90 tabs 02/03/24 escitalopram oxalate 5 mg tablet 5 mg PO DAILY 30 days #30 tabs 02/12/24 mirtazapine 15 mg tablet (Remeron) 15 mg PO BEDTIME 30 days #30 tabs 03/24/24 apixaban 5 mg tablet (Eliquis) 5 mg PO BID 90 days #180 tabs 03/30/24 fluticasone furoate 200 1 inh inhalation DAILY 30 days #60 05/25/24 mcg-vilanterol 25 mcg/dose ea inhalation powder (Breo Ellipta) cholecalciferol (vitamin D3) 50 50 mcg PO DAILY #90 tabs 06/14/24 mcg (2,000 unit) tablet (Vitamin D3) blood sugar diagnostic (FreeStyle #100 ea 06/22/24 Lite Strips) blood-glucose meter (FreeStyle #1 ea 06/22/24 Lite Meter kit) gabapentin 800 mg tablet 800 mg PO TID 90 days #270 tabs 06/22/24 metoprolol tartrate 50 mg tablet 50 mg PO BID #180 tabs 06/22/24 trazodone 100 mg tablet 200 mg (2 x 100 mg) PO BEDTIME 90 06/22/24 days #180 tabs acetaminophen 325 mg tablet 325 mg PO Q6H PRN pain 30 days 07/01/24 #120 tabs glimepiride 1 mg tablet 1 mg PO DAILY #90 tabs 07/29/24 diclofenac sodium 3 % topical gel 1 appl topical BID 4 weeks #100 08/18/24 grams semaglutide 0.25 mg or 0.5 mg (2 0.5 mg (0.736 mL) subcut QWEEK 4 03/25/25 mg/3 mL) subcutaneous pen injector weeks #3 mL (Ozempic) albuterol sulfate 2.5 mg/3 mL 2.5 mg (3 mL) inhalation Q6H PRN 08/22/24 (0.083 %) solution for nebulization shortness of breath or wheezing 30 days #360 mL donepezil 5 mg tablet 5 mg PO DAILY 30 days #30 tabs 08/26/24 dicyclomine 10 mg capsule 20 mg (2 x 10 mg) PO QID 30 days 08/27/24 #240 caps memantine 28 mg capsule 28 mg PO DAILY 30 days #30 ea 09/23/24 sprinkle,extended release 24hr oxycodone 15 mg tablet 15 mg PO Q8H pain 28 days #84 tabs 09/24/24 Allergies Allergy/AdvReac Type Severity Reaction Status Date / Time No Known Allergies Allergy Verified 09/28/24 11:32 [No Known Allergies*] Review of Systems Review of Systems: Yes all other systems are reviewed and are negative Constitutional: Constitutional: Reports as per [facility] Past Medical History Attestation statement: The following information was validated with the patient. 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 Depression Arthritis IBS (irritable bowel syndrome) GERD (gastroesophageal reflux disease) Recurrent malignant neoplasm of right breast HTN (hypertension) Traumatic complete tear of right rotator cuff Surgical History Hx of excision of mass (08/14/23) History of excision of lesion (05/30/23) S/P bilateral mastectomy History of bilateral mastectomy (02/19/22) Hx of cholecystectomy Hx of appendectomy Hx of blepharoplasty History of esophagogastroduodenoscopy (EGD) History of lumpectomy of both breasts History of surgery History of colonoscopy S/P ANDRÉS-BSO (total abdominal hysterectomy and bilateral salpingo-oophorectomy) History of lumbar fusion Family History Family History Father Heart problem Mother Heart disease Hypertension Colon cancer Epilepsy Maternal Grandmother Esophageal cancer Daughter Breast cancer Brother Lung cancer Sister Breast cancer Sister Breast cancer, Onset Age: 60 Sister COVID Daughter Acute kidney failure Social History Social History Household Members: None Housing: House Are you a primary vision care associate to a significant other at home: No Do you presently have visiting nurse or other home services: No (granddaughter Sharla helps take care of her) Alcohol intake: never Comment: counts correct Patient Tobacco Use Status: Never used Tobacco Smoked in Last 30 Days: No e-Cigarette/Vaping Use: Never Used Second Hand Smoke Exposure: No Use of substances other than those prescribed or required for medical reasons: No Advance Directives: Yes Advance Directives on File: Yes Advance Directives Date on File: 06/13/23 Nutrition Risks: No Nutritional Risk service: No Current occupational status: disabled 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) Hearing needs: No Vision needs: Yes Physical Exam ED Vital Signs: Vital Signs - 24 hr 09/28/24 11:32 Temperature 98.5 F Pulse Rate 65 Respiratory Rate 20 Blood Pressure 129/81 Pulse Oximetry 94 Oxygen Delivery Method Room Air BMI result Body Mass Index 34.4 Const General: cooperative, no acute distress, alert and awake Orientation/consciousness: patient oriented x3 Limitations: no limitations HENMT Head: Yes normal to inspection and Yes atraumatic Ears: hearing grossly normal bilaterally General nose exam: Normal external nose present Face and sinus: Yes normal facial exam Mouth: Normal oral and palatal mucosa present Throat: Yes posterior oropharynx normal Eyes General: appearance normal, both eyes and all related structures Pupils: Equal, round and reactive pupils present EOM: EOMs intact bilaterally Neck Neck: Yes normal visual inspection and Yes no meningeal signs Chest Chest palpation & inspection: normal inspection of the chest, no crepitus and no tenderness Resp Effort & Inspection: normal respiratory effort and no respiratory distress Auscultation: rhonchi throughout and wheezes expiratory wheezes Cardio Rate: regular rate Heart sounds: S1 normal heart sound present and S2 normal heart sound present GI Inspection: Yes normal to inspection Palpation (GI): Soft to palpation, Tenderness to palpation present (GI) (Suprapubic) with no rebound tenderness, no guarding and not rigid General: Yes no CVA tenderness Back/Spine/Pelvis Other: No midline cervical/thoracic/lumbar spinous tenderness/step-off or deformity. + bilateral lumbar paraspinal/MSK reproducible tenderness to palpation. No erythema/ecchymosis or rash Back: no CVA tenderness Skin Rashes: no rashes Wounds: no wounds Neuro General: patient oriented x3, tone normal, moves all extremities, no meningeal signs, no focal motor deficits and CN's II-XI intact bilaterally Cranial nerves: Yes CN's II-XII intact bilaterally and Yes Equal, round and reactive pupils present Motor exam (neuro): 5/5 motor strength present throughout Extrem General: Yes normal to inspection and Yes no pedal edema Course Course Course Narrative: -1314--no leukocytosis. H/H around patient's baseline. Creatinine at patient's baseline -AST elevated to 424. ALT elevated to 95. Initial troponin 27.6 > will obtain repeat -1443--CPK elevated to 17,883 > IVF ordered CT head/brain wo IV con IMPRESSION: No acute intracranial abnormality CT cervical spine wo IV con IMPRESSION: 1. No CT evidence of acute cervical spine fracture or injury. 2. Moderate diffuse spondylosis. CT chest w IV con/CT abdomen pelvis w IV con IMPRESSION: No evidence of traumatic injury to the chest, abdomen, or pelvis. Incidental findings as described above. > plan to admit for further management Medications Administered Generic Name Dose Route Start Last Admin Trade Name Freq PRN Reason Stop Dose Admin Insulin Human Lispro 0 unit 09/28/24 16:30 09/28/24 16:50 Insulin Lispro 100 Unit/Ml 3 Ml Vial SUBCUT Not Given QIDACHS [facility] Protocol Sodium Chloride 3 ml 09/28/24 16:00 09/28/24 16:49 0.9 % Sodium Chloride Flush 3 Ml Syringe IVFLUSH Not Given QSHIFT [facility] Discontinued Medications Generic Name Dose Route Start Last Admin Trade Name Freq PRN Reason Stop Dose Admin Sodium Chloride 1,000 mls @ 999 mls/hr 09/28/24 14:45 09/28/24 15:05 Ns IV 09/28/24 15:45 999 mls/hr .Q1H1M MARINA Administration Sodium Chloride 1,000 mls @ 999 mls/hr 09/28/24 14:45 09/28/24 15:06 Ns IV 09/28/24 15:45 999 mls/hr .Q1H1M MARINA Administration Iohexol 100 ml 09/28/24 13:25 09/28/24 13:26 Iohexol 350 Mg/Ml 100 Ml Infus..Btl IV 09/28/24 13:26 85 ml ONCE ONE Administration Medical Decision Making Medical Decision Making [facility] Narrative: 74-year-old female with a past medical history DVT/PE on Eliquis, dementia, NSTEMI, sleep apnea, HLD, pulmonary hypertension, asthma, depression, GERD, IBS, HTN presenting to the ED via EMS complaining of URI symptoms with dry cough, fever and SOB x2-3 weeks. Daughter also reports she found patient on the ground last night, suspects patient was on the ground for about 6 hours. On exam VSS, NAD, nontoxic appearing, baseline dementia, no midline spinous tenderness or focal neuro deficits. Rhonchus cough appreciated. Abdomen is soft with suprapubic tenderness, MSK back tenderness noted. Concern for URI sx vs PNA vs asthma exacerbation. Concern for ICH vs fx's vs intra abdominal/intrathoracic injury/bleeding. Low suspicion for cauda equina/cord compression at this time. Rule out metabolic and infectious etiologies including rhabdo Plan: EKG, labs, UA, viral testing, CT head/C-spine/chest/abdomen/pelvis, anticipated admission Please refer to course for remaining clinical decision making, interpretation of labs/imaging results, and discussions with consultants and/or family members. Differential Diagnosis Differential Diagnoses: The differential diagnosis associated with the presentation includes As above Admission/Observation Consideration of admission/observation: Escalation of care including admission/observation considered Lab Data [facility] Lab Attestation statement: I reviewed the patient's lab results. 09/28/24 12:27 09/28/24 12:27 Labs: Lab Results 09/28/24 Range/Units 12:27 WBC 5.1 (4.8-10.8) X10*3/uL RBC 3.70 L (4.20-5.50) X10*6/uL Hgb 11.8 L (12.0-16.0) g/dl Hct 34.9 L (37.0-47.0) % MCV 94.3 (80.0-98.0) fL MCH 31.9 (27.0-33.0) pg MCHC 33.8 (31.0-35.0) g/dl RDW 13.8 (11.0-16.0) % Plt Count 289 (160-400) X10*3/uL MPV 9.3 L (9.4-12.3) fL Immature Gran % (Auto) 0.2 (0.0-0.4) % Neut % (Auto) 59.0 (45-73) % Lymph % (Auto) 27.0 (20-40) % [place] % (Auto) 12.6 H (2-11) % Eos % (Auto) 0.6 (0-4) % Baso % (Auto) 0.6 (0-2) % Lymph # (Auto) 1.4 (1.2-4.9) X10*3/uL [place] # (Auto) 0.6 (0.1-1.2) X10*3/uL Eos # (Auto) 0.0 (0.0-0.4) X10*3/uL Baso # (Auto) 0.0 (0.0-0.2) X10*3/uL Abs Immat Gran (auto) 0.01 (0.00-0.03) X10*3/uL Absolute Neuts (auto) 3.0 (2.0-8.3) x10*3/uL Absolute Nucleated RBC 0.000 (0.0-0.012) X10*3/uL Nucleated RBC % (auto) 0.0 (0.0-0.2) /100WBC PT 17.3 H (10.9-12.4) SEC INR 1.5 H (0.9-1.1) Sodium 137 (135-145) mmol/L Potassium 4.2 (3.3-5.1) mmol/L Chloride 103 (96-108) mmol/L Carbon Dioxide 24 (22-29) mmol/L Anion Gap 14 (12-20) BUN 16 (9-16) mg/dL Creatinine 1.50 H (0.5-1.4) mg/dL Estim Creat Clear Calc 29.8 Estimated GFR 34 Random Glucose 96 (60-115) mg/dL Calcium 8.5 D (8.4-10.2) mg/dL Magnesium 2.3 (1.6-2.6) mg/dL Total Bilirubin 0.3 (0.0-1.0) mg/dL AST 424 H (5-31) U/L ALT 95 H (0-31) U/L Alkaline Phosphatase 67 (39-117) U/L Total Creatine Kinase 04552 H (26-140) U/L Troponin I High Sens 27.6 H D (<3.5-17.0) ng/L B-Natriuretic Peptide 79 (<100) pg/mL Total Protein 6.8 (6.5-8.0) g/dL Albumin 3.7 (3.5-5.0) g/dL Influenza Type A (PCR) NEGATIVE (Negative) Influenza Type B (PCR) NEGATIVE (Negative) RSV RNA Qual (PCR) NEGATIVE (Negative) SARS-CoV-2 RNA (RT-PCR) NEGATIVE (Negative) Independent Interpretation I performed an independent interpretation of an: EKG and CT Scan Radiology Impression Discussion of test interpretation with radiology: I have reviewed the radiologist's reading. Independent Historian Clinical information obtained from an independent historian. History obtained from or confirmed by: EMS and Other (daughter) External Record Review External record reviewed: Inpatient record, Office record, Outpatient record, Prior outpatient labs, Prior outpatient radiology, Primary care record and Outside ED record Tests considered The following testing was considered but not selected: As above Prescription Management I considered prescription management with: Pain Medication and Other Chronic Conditions Patient?s care impacted by: Hypertension and Other (Dementia) Social Determinants Patient?s care significantly limited by Social Determinants of Health including: Problems related to primary support group and Other Social Determinant of Health Discharge Plan Discharge Clinical Impression: Rhabdomyolysis Patient Disposition: Admitted As Inpatient
[2024-09-28 12:37] LABS: MANUAL DIFF FLAG NO
[2024-09-28 12:38] LABS: Basophils Percent Auto 0.6 % (0-2); Eosinophils Percent Auto 0.6 % (0-4); Hematocrit 34.9 % (37.0-47.0); Hemoglobin 11.8 g/dl (12.0-16.0); Imm Gran Abs Auto 0.01 X10*3/uL (0.00-0.03); Imm Gran Pct Auto 0.2 % (0.0-0.4); Lymphocytes Absolute Auto 1.4 X10*3/uL (1.2-4.9); Mean Corpuscular HGB Conc 33.8 g/dl (31.0-35.0); Mean Corpuscular Hemoglobin 31.9 pg (27.0-33.0); Mean Corpuscular Volume 94.3 fL (80.0-98.0); Mean Platelet Volume 9.3 fL (9.4-12.3); Monocytes Absolute Auto 0.6 X10*3/uL (0.1-1.2); Monocytes Percent Auto 12.6 % (2-11); Platelet Count 289 X10*3/uL (160-400); Red Cell Distribution Width 13.8 % (11.0-16.0); White Blood Count 5.1 X10*3/uL (4.8-10.8)
[2024-09-28 12:45] LABS: INTERNATIONAL NORM RATIO 1.5 (0.9-1.1); Prothrombin Time 17.3 SEC (10.9-12.4)
[2024-09-28 13:00] LABS: Alanine Aminotransferase 95 U/L (0-31); Albumin Level 3.7 g/dL (3.5-5.0); Alkaline Phosphatase 67 U/L (39-117); Anion Gap 14 (12-20); Aspartate Amino Transferase 424 U/L (5-31); Bilirubin Total 0.3 mg/dL (0.0-1.0); Blood Urea Nitrogen 16 mg/dL (9-16); Calcium 8.5 mg/dL (8.4-10.2); Carbon Dioxide 24 mmol/L (22-29); Chloride 103 mmol/L (96-108); Creatinine Clr Calc Pharmacy 29.8; Estimated Glomerular Filt Rate 34; Glucose Random 96 mg/dL (60-115); Magnesium 2.3 mg/dL (1.6-2.6); Potassium 4.2 mmol/L (3.3-5.1); Sodium 137 mmol/L (135-145); Total Protein 6.8 g/dL (6.5-8.0)
[2024-09-28 13:04] LABS: B Type Natriuretic Peptide 79 pg/mL (<100)
[2024-09-28 13:06] LABS: Troponin-I High Sensitivity 27.6 ng/L (<3.5-17.0)
[2024-09-28 13:16] LABS: Influenza A PCR NEGATIVE (Negative); Influenza B PCR NEGATIVE (Negative); Resp Syncy Virus RNA Qual PCR NEGATIVE (Negative); SARS COV2 PCR INHOUSE NEGATIVE (Negative)
[2024-09-28] MEDS: iohexoL 350 MG/ML 100 ML INFUS..BTL IV (13:26)
--- OUTSIDE RECORDS SUMMARY | 2024-09-28 14:09 | XMS_ITS | Clinical Summary ---
Author Organization [facility] Address [address] [place] [phone] Phone Care Team Providers Care Ct Manager Name Role Phone Milan Mcgraw Primary Care Provider Allergies No known active allergies Medications acetaminophen (TYLENOL) 325 mg tablet Take 1 tablet (325 mg total) by mouth every 6 hours as needed. 3 Active albuterol 2.5 mg /3 mL (0.083 %) nebulizer solution 4 Active albuterol HFA (PROAIR HFA ; PROVENTIL HFA ; VENTOLIN HFA) 90 mcg/actuation inhaler 4 Active amitriptyline (ELAVIL) 10 mg tablet TAKE 2-3 TABS BY MOUTH AT BEDTIME 3 Active amLODIPine (NORVASC) 10 mg tablet Take 1 tablet (10 mg total) by mouth 1 (one) time each day. 3 Active apixaban (Eliquis) 5 mg tablet Take 1 tablet (5 mg total) by mouth 2 (two) times a day. for 30 days 4 Active aspirin 81 mg chewable tablet Chew 1 tablet (81 mg total) by mouth every night at bedtime. 3 Active atorvastatin (LIPITOR) 20 mg tablet Take 1 tablet (20 mg total) by mouth every night at bedtime. 4 Active cholecalciferol (VITAMIN D-3) 50 mcg (2,000 unit) capsule 4 Active cyclobenzaprine (FLEXERIL) 5 mg tablet TAKE 2 TABLETS ORALLY 3 TIMES A DAY NEEDED FOR FOR MUSCLE SPASM 4 Active dicyclomine (BENTYL) 10 mg capsule 4 Active fluticasone furoate-vilante roL (Breo Ellipta) 200-25 mcg/dose inhaler 4 Active gabapentin (NEURONTIN) 800 mg tablet Take 1 tablet (800 mg total) by mouth 3 (three) times a day. 3 Active metoprolol tartrate (LOPRESSOR) 50 mg tablet Take 1 tablet (50 mg total) by mouth 2 (two) times a day. 4 Active omeprazole (PriLOSEC) [address] capsule Take 1 capsule (20 mg total) by mouth 1 (one) time each day. 3 Active oxyCODONE (ROXICODONE) 10 mg immediate release tablet TAKE 1 TABLET BY MOUTH EVERY 8 HOURS FOR PAIN FOR 28 DAYS CANCER RELATED PAIN- 3 Active predniSONE (DELTASONE) 10 mg tablet 4 Active traZODone (DESYREL) 100 mg tablet TAKE 2 TABLETS BY MOUTH AT BEDTIME 3 Active abemaciclib (VERZENIO) 100 mg tablet Take 100 mg by mouth daily 30 tablet 5 5 Active letrozole (FEMARA) 2.5 mg tablet Take 1 tablet (2.5 mg total) by mouth 1 (one) time each day Take with or without food.Take 1 tablet (2.5 mg total) by mouth daily for 30 days 90 tablet 3 5 09/23/19 26 Active letrozole (FEMARA) 2.5 mg tablet Take 1 tablet (2.5 mg total) by mouth 1 (one) time each day Take with or without food.Take 1 tablet (2.5 mg total) by mouth daily for 30 days 90 tablet 3 4 09/23/19 25 Discontinu ed(Reorder ) Active Problems Problem Noted Date Diagnosed Date Chest pain on breathing 11/27/2023 Cancer, 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 (CMS/HCC V24, CMS/HCC V28) 10/01/2023 Acute cystitis without hematuria 09/16/2023 Weight loss 09/16/2023 Lymphedema of right arm 06/19/2023 Malignant neoplasm of left f emale breast (CMS/HCC V24, CMS/HCC V28) 06/19/2023 Malignant neoplasm of upper- outer quadrant of right female breast (CMS/HCC V24, CMS/HCC V28) 06/19/2023 Overview (02/20/2024): Most recent diagnosis 01/2022, on tamoxifen, stopped due to PE, followed by letrozole started by Dr. Jaramillo on 02/06/2023. 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, estrogen receptor positive (CMS/HCC V24, CMS/HCC V28) (Primary Dx); Malignant neoplasm of upper-outer quadrant of right breast in female, estrogen receptor positive (CMS/HCC V24, CMS/HCC V28); Cancer, 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 (CMS/HCC V24, CMS/HCC V28); Multiple subsegmental pulmonary emboli without acute cor pulmonale (CMS/HCC V24, CMS/HCC V28); Vitamin D deficiency; Osteopenia of multiple sites; Weight loss 07/22/2024 11:00 AM EST Office Visit [facility] Hematology Oncology [address] [place] [phone] Tiffany Ayers MD Malignant neoplasm of overlapping sites of left breast in female, estrogen receptor positive (CMS/HCC V24, CMS/HCC V28) (Primary Dx); Cancer, 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 (CMS/HCC V24, CMS/HCC V28); Multiple subsegmental pulmonary emboli without acute cor pulmonale (CMS/HCC V24, CMS/HCC V28); Weight loss; Vitamin D deficiency from Last 3 Months Surgical History Surgery Date Site/Laterality Comments MASTECTOMY PROCEDURE:MASTECTOMY APPENDECTOMY PROCEDURE:APPENDECTOMY CHOLECYSTECTOMY PROCEDURE:CHOLECYSTECTOMY COLONOSCOPY PROCEDURE:COLONOSCOPY Medical History Medical History Date Comments [place] [place] [facility] [place] [place] DX:Breast [place] ([facility]) Hypertension DX:Hypertension COPD (chronic obstructive pu lmonary disease) [place] [place] [facility] [place] [place] DX:COPD (chronic o bstructive pulmonary disease) ([facility]) Family History Medical History Relation Name Comments [...] Pressure 119/54 07/22/2024 11:46 AM EST Pulse 69 09/22/2024 11:36 AM EDT Temperature 36.2 ??C (97.2 ??F) 09/22/2024 11:36 AM E DT Respiratory Rate - - Oxygen Saturation 100% 09/22/2024 11:36 AM EDT Inhaled Oxygen Concentration - - Weight 79.8 kg (176 lb) 09/22/2024 11:36 AM EDT Height 147.3 cm (4' 10 ) 07/22/2024 11:46 AM EST Body Mass Index 36.78 07/22/2024 11:46 AM EST Plan of Treatment Upcoming Encounters Date Type Department Care Team (Late st Contact Info) Description 11/23/2024 11:15 AM EDT Office Visit [facility] Hematology Oncology [address] [place] [phone] Tiffany Nava MD [address] [place] [phone] Health Maintenance Due Date Last Done Comments Zoster Vaccines (1 of 2) 1969 RSV Immunization Adult Patients (1 - 1-dose 75+ series) 2023 Depression Screening 12/17/2023 Falls Risk Assessment 12/17/2023 Hepatitis C Screening 12/17/2023 Medicare Annual Wellness Visit 12/17/2023 Osteoporosis Screening (Bone Density Screening) 12/17/2023 [...] Diagnosis Comments CBC WITH AUTO DIFFERENTIAL Routine 09/22/2024 12:00 PM EDT Malignant neoplasm of overlapping sites of left breast in female, estrogen receptor positive (CMS/HCC V24, CMS/HCC V28) CBC AND DIFFERENTIAL Routine 09/22/2024 12:00 PM EDT Malignant neoplasm of overlapping sites of left breast in female, estrogen receptor positive (CMS/HCC V24, CMS/HCC V28) COMPREHENSIVE METABOLIC PANEL Routine 09/22/2024 12:00 PM EDT Malignant neoplasm of overlapping sites of left breast in female, estrogen receptor positive (CMS/HCC V24, CMS/HCC V28) CANCER ANTIGEN 27-29 Routine 09/22/2024 12:00 PM EDT Malignant neoplasm of overlapping sites of left breast in female, estrogen receptor positive (CMS/HCC V24, CMS/HCC V28) CBC WITH AUTO DIFFERENTIAL Routine 07/22/2024 12:09 PM EST Malignant neoplasm of overlapping sites of left breast in female, estrogen receptor positive (CMS/HCC V24, CMS/HCC V28) CBC AND DIFFERENTIAL Routine 07/22/2024 12:09 PM EST Malignant neoplasm of overlapping sites of left breast in female, estrogen receptor positive (CMS/HCC V24, CMS/HCC V28) COMPREHENSIVE METABOLIC PANEL Routine 07/22/2024 12:09 PM EST Malignant neoplasm of overlapping sites of left breast in female, estrogen receptor positive (CMS/HCC V24, CMS/HCC V28) CANCER ANTIGEN 27-29 Routine 07/22/2024 12:09 PM EST Malignant neoplasm of overlapping sites of left breast in female, estrogen receptor positive (CMS/HCC V24, CMS/HCC V28) from Last 3 Months Results * (ABNORMAL) CBC auto differential (09/22/2024 12:00 PM EDT) Only the most recent of2 resultswithin the time period is included. WBC 6.1 4.8 - 10.8 K/mcL LAB HEMETOLOGY METHOD 09/22/2024 1:[address] [facility] RBC 3.90 3.80 - 4.80 M/mcL LAB HEMETOLOGY METHOD 09/22/2024 1:[address] [facility] Hemoglobin 12.3 11.5 - 16.0 g/dL LAB HEMETOLOGY METHOD 09/22/2024 1:[address] [facility] Hematocrit 38.3 35.0 - 47.0 % LAB [facility] MCV 98.7(H) 79.0 - 98.0 FL LAB HEM[facility]OLOGY METHOD [facility] MCH 31.7 27.0 - 32.0 pcg LAB HEMETOLOGY METHOD 09/22/2024 1:[address] [facility] MCHC 32.1 32.0 - 37.0 g/dL LAB HEMETOLOGY METHOD 09/22/2024 1:40 PM [facility] RDW 13.9 11.0 - 15.0 % LAB HEMETOLOGY METHOD 09/22/2024 1:40 PM [facility] Platelets 361 130 - 400 K/mcL LAB HEMETOLOGY [facility]/22[facility]24 [facility] MPV 10.0 7.0 - 11.0 FL LAB HEMETOLOGY METHOD 09/22[facility]24 [facility] NRBC 0.0 <1.0 % LAB HEMETOLOGY METHOD 09/22/2024 1:40 PM [facility] NRBC Absolute 0.00 <0.10 K/mcL LAB HEMETOLOGY METHOD [facility]/22[facility]24 [facility] Neutrophils Relative 54.8 % LAB HEMETOLOGY METHOD 09/22/2024 1:[address] [facility] Lymphocytes Relative 34.7 % LAB [facility]OLOGY [facility] Monocytes Relative 8.2 % LAB HEMETOLOGY METHOD 09/22/2024 1:[address] [facility] Eosinophils Relative 1.3 % LAB HEMETOLOGY METHOD 09/22/2024 1:[address] [facility] Basophils Relative 0.8 % LAB HEMETOLOGY METHOD 09/22/2024 1:[address] [facility] Immature Granulocytes Relative 0.2 % LAB HEMETOLOGY METHOD 09/22/2024 1:[address] [facility] Neutrophils Absolute 3.33 1.50 - 7.00 K/mcL LAB HEMETOLOGY METHOD 09/22/2024 1:[address] [facility] Lymphocytes Absolute 2.11 1.00 - 5.00 K/mcL LAB HEMETOLOGY METHOD 09/22/2024 1:[address] [facility] Monocytes Absolute 0.50 0.20 - 1.00 K/mcL LAB HEMETOLOGY METHOD 09/22/2024 1:[address] [facility] Eosinophils Absolute 0.08 0.00 - 0.50 K/mcL LAB HEMETOLOGY METHOD 09/22/2024 1:[address] [facility] Basophils Absolute 0.05 0.00 - 0.20 K/mcL LAB HEMETOLOGY METHOD 09/22/2024 1:[address] [facility] Immature Granulocytes Absolute 0.01 0.00 - 0.03 K/mcL LAB HEMETOLOGY METHOD 09/22/2024 1:[address] [facility] Blood Venous blood specimen / Unknown Venipuncture / Unknown 09/22/2024 12:00 PM EDT 09/22/2024 1:35 PM EDT us Tiffany Nava MD LAB BLOOD ORDERABLE S Final Result [facility] [address] [place] [address], * Cancer antigen (09/22/2024 12:00 PM EDT) Only the most recent of2 resultswithin the time period is included. Pathologist [facility] [place] 27.29 31.0 <38.6 U/mL 09/25/2024 1:[address] [facility] Comment: The Siemens Advia CompareAwayaur [id number] Chemiluminescent Immunoassay is used. Results obtained with different assay methods or kits cannot be used interchangeably. Results cannot be interpreted as absolute evidence of the presence or absence of malignant disease. Test performed at [facility], [address] , [place], [place] ??[address] ? [phone] Mary Albrecht MD, PhD - Color Paste Mixing Supervisor Blood Venous blood specimen / Unknown Venipuncture / Unknown 09/22/2024 12:00 PM EDT 09/22/2024 1:35 PM EDT Tiffany Nava MD LAB BLOOD ORDERABLE S Final Result [facility] [address] [place] [address] * (ABNORMAL) Comprehensive metabolic panel (09/22/2024 12:00 PM EDT) Only the most recent of2 resultswithin the time period is included. Pathologist [facility] Sodium 141 133 - 145 mmol/L LAB CHEMISTRY METHOD 09/22/2024 2:[address] [facility] Potassium 4.6 3.5 - 5.5 mmol/L LAB CHEMISTRY METHOD 09/22/2024 2:[address] [facility] Chloride 104 96 - 110 mmol/L LAB CHEMISTRY METHOD 09/22/2024 2:[address] [facility] CO2 25 21 - 32 mmol/L LAB CHEMISTRY METHOD 09/22/2024 2:[address] [facility] Anion Gap 12(H) 3 - 11 LAB CHEMISTRY METHOD 09/22/2024 2:[address] [facility] Glucose 94 70 - 100 mg/dL LAB CHEMISTRY METHOD 09/22/2024 2:14 PM [facility] BUN 15 5 - 25 mg/dL LAB CHEMISTRY METHOD 09/22/2024 2:14 PM [facility] Creatinine 1.29(H) 0.50 - 1.10 mg/dL LAB CHEMISTRY METHOD 09/22/2024 2:14 PM [facility] eGFR 43(L) >=60 mL/min/1. 73m2 LAB CHEMISTRY METHOD 09/22/2024 2:14 PM [facility] Comment:Calculation based on the??Chronic Kidney Disease Epidemiology Collaboration (CKD-EPI) equation refit??without adjustment for race. BUN/Creatinine Ratio 11.6 LAB CHEMISTRY METHOD 09/22/2024 2:14 PM [facility] Calcium 9.7 8.5 - 10.5 mg/dL LAB CHEMISTRY METHOD 09/22/2024 2:14 PM [facility] AST (SGOT) 18 10 - 42 unit/L LAB CHEMISTRY METHOD 09/22/2024 2:14 PM [facility] ALT (SGPT) 21 10 - 60 unit/L LAB CHEMISTRY METHOD 09/22/2024 2:14 PM [facility] Alkaline Phosphatase 87 42 - 121 unit/L LAB CHEMISTRY METHOD 09/22/2024 2:14 PM [facility] Total Protein 7.3 6.0 - 8.0 g/dL LAB CHEMISTRY METHOD 09/22/2024 2:14 PM [facility] Albumin 3.6 3.2 - 5.0 g/dL LAB CHEMISTRY METHOD 09/22/2024 2:14 PM [facility] Total Bilirubin 0.3 0.0 - 1.4 mg/dL LAB CHEMISTRY METHOD 09/22/2024 2:14 PM [facility] Blood Venous blood specimen / Unknown Venipuncture / Unknown 09/22/2024 12:00 PM EDT 09/22/2024 1:35 PM EDT Tiffany Nava MD LAB BLOOD ORDERABLE S Final Result [facility] [address] [place] [address], [place] [phone] from Last 3 Months Insurance [address] [place] [id number] [place]ICAID - [place] [facility] MEDICAID [facility] MEDICARE Member Subscriber Plan / Payer (Ef fective 2014-Present) Name:Beatriz Herbert Relation to Subscriber:Self Name:Beatriz Herbert Payer ID:[id number] Group ID:[id number] Type:Not on file Address: [address] [place] [address] Relationship Specialty [place] [address] [place] [phone] PCP - General 06/05/23
--- OUTSIDE RECORDS SUMMARY | 2024-09-28 14:09 | XMS_ITS | Patient Health Record ---
Author Organization [facility] Address [address] [place] [address] Care Team Providers Care Call Person Name Role Phone Lesser (RETIRED) Salvatore LEMUS Primary Care Provide r Unavailable Chinedu Kat Unavailable [phone] Reason For Referral No Information Medications Medication [...] Problem Status W/U Status Risk Notes Problem 727310751 Encounter for screening for malignant neoplasm of colon (Z12.11) Active confirmed Problem 474813090 Irritable bowel syndrome with diarrhea (K58.0) Active confirmed Problem [id number] Gastroesophageal reflux disease without esophagitis (K21.9) Active confirmed Problem 101573345 Family history o f colon cancer (Z80.0) Active confirmed Plan Of Treatment Future Test Test Name Order Date UPPER GI ENDOSCOPY 11/02/2014 COLONOSCOPY 11/02/2014 COLONOSCOPY 11/25/2019 Insurance Providers Payer Name Payer Address Payer Phone Subscriber Number Group Number Insured Name Patient Relationship to Insured Coverage Start Date Coverage End Date [facility] [address] [place] [address] [id number] ANA CRISTINA LOZANO Self - patient is the insured [facility]ICAID [facility] [address] [place] [phone] [id number] ANA CRISTINA LOZANO Self - patient is the insured Medical (General) History Medical History History ICD Code Breast cancer on the right w ith surgery as below; left breast with precancerous cells and had XRT only Denies OR,DM,CVA,renal disease Depression/Anxiety Asthma Back pain GERD--EGD in [...] tempprary TENS u nit that didn't help Anay ANDRÉS SKY
--- OUTSIDE RECORDS SUMMARY | 2024-09-28 14:09 | XMS_ITS | Data Portability ---
Author Organization [facility] Address [address] [place] [address] Care Team Providers Care Hospitality Services Manager Name Role Phone [facility] Primary Care Provider Assessment No [...] /min 131 mm[Hg] 90 mm[Hg] Not Available [employer] [facility] [place] 3 19:00:15 Social History None recorded. Functional Status None recorded. Mental Status None recorded. Family History Nothing Reported. Medical History No medical history recorded. Gynecological HistoryNo gynecological history recorded. Obstetrics History GPAL:G 0 P 0 0 0 0 Past Encounters Encounter ID Performer Location Encounter Start Date Encounter Closed Date Diagnosis/Indication Diagnosis SNOMED-CT Code Diagnosis ICD10 Code Diagnosis Note [id number] Jung Mace MD Main - [facility] [address] [place] [address] 12/22/2022 19:00:13 12/24/2022 16:54:38 Lightheadedness 947379418 R42 Dizziness/ weakness/l ightheadne ss in setting [...] Graham Member ID Guarantor Name 12/22/2022 1 [facility] - DOS ON OR AFTER 2022 - DUAL ELIGIBLE - USP OPTIONS AND ONE CARE (MEDICARE REPLACEMENT/ADV ANTAGE - HMO) Beatriz Herbert [id number] Beatriz Herbert Notes Date Note Type Note [...] ................... ................... ................... ................... ................... ................... ........ Power Hair Clipper Note From Juan Parisi: Dispatched to above residence for the female patient with complaint of weakness, pain, shortness of breath as reported by rn progressive care unit. Upon arrival, pt found laying in bed in no obvious acute distress. Patient is croatian speaking only and all information gathered comes from rn progressive care unit who is bilingual. Patient states to CG my left leg is swollen, hot, red, and i think i have a blood clot . During exam, there was no noted swelling, temp difference, or discoloration. Patient reports pain localized to the anterior of her fowler about group home up. No noted trauma, pt denies any [...] any additional acute complaints at this time. [facility] contacted to discuss pt presentation, concerns, and clinical findings. At this time, [facility] does not order any additional interventions or [...] ................... ................... ................... ................... ........ Disposition: Fulfilled Jnug Mace MD [address] [place] [address],[address], [place], [phone], JAMES COTTO 12/22/2022 20:21:24 OBGyn Episode No OBEpisode recorded.
--- OUTSIDE RECORDS SUMMARY | 2024-09-28 14:09 | XMS_ITS | Clinical Summary ---
Author Organization [facility] Address [address] [place] [address] Care Team Providers Care Vacuum Cleaner Operator Name Role Phone Milan Mcgraw Primary Care Provider [phone] Allergies No known active allergies Medications Medication [...] from 02/19/2022:Stage IA(pT1c, pN1, cM0, G2, ER+, NM+, HER2-) - Signed by Tiffany Villavicencio MD [...] age to complete this topic Care Teams Vacuum Cleaner Operator Relationship Specialty Start Date End Date Milan Mcgraw PA [address] [place] [phone] PCP - General Physician Surface Water Technician 06/05/23
[2024-09-28] MEDS: 0.9 % Sodium Chloride 1,000 ML 999 ML IV ×2 (15:05→15:06)
[2024-09-28 16:22] LABS: Troponin-I High Sensitivity 24.8 ng/L (<3.5-17.0)
[2024-09-28 17:04] LABS: Glucose, Whole Blood 63 mg/dL (60-115)
--- NOTE | 2024-09-28 17:46 | P.HPHOSP_ITS ---
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 The patient has been having URI symptoms for couple of weeks. daughter went to her place where she found her on the floor. she was sleeping for hours on the floor. lives by herslef. ambulate with cane\walker. no falls. No chest pain, palpitations, SOB, nausea, vomiting, diarrhea or urinary symptoms[place] [address] with no QUIN at this point. Will be admitted for further work up and management. 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 Depression Arthritis IBS (irritable bowel syndrome) GERD (gastroesophageal reflux disease) Recurrent malignant neoplasm of right breast HTN (hypertension) Traumatic complete tear of right rotator cuff Family History Father Heart problem Mother Heart disease Hypertension Colon cancer Epilepsy Maternal Grandmother Esophageal cancer Daughter Breast cancer Brother Lung cancer Sister Breast cancer Sister Breast cancer, Onset Age: 60 Sister COVID Daughter Acute kidney failure Surgical History Hx of excision of mass (08/14/23) History of excision of lesion (05/30/23) S/P bilateral mastectomy History of bilateral mastectomy (02/19/22) Hx of cholecystectomy Hx of appendectomy Hx of blepharoplasty History of esophagogastroduodenoscopy (EGD) History of lumpectomy of both breasts History of surgery History of colonoscopy S/P ANDRÉS-BSO (total abdominal hysterectomy and bilateral salpingo-oophorectomy) History of lumbar fusion Social History Household Members: None Housing: House Are you a primary hearing care professional to a significant other at home: No Do you presently have visiting nurse or other home services: No (granddaughter Sharla helps take care of her) Alcohol intake: never Comment: counts correct Patient Tobacco Use Status: Never used Tobacco Smoked in Last 30 Days: No e-Cigarette/Vaping Use: Never Used Second Hand Smoke Exposure: No Use of substances other than those prescribed or required for medical reasons: No Advance Directives: Yes Advance Directives on File: Yes Advance Directives Date on File: 06/13/23 Nutrition Risks: No Nutritional Risk service: No Current occupational status: disabled 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) Hearing needs: No Vision needs: Yes Meds Allergies Allergy/AdvReac Type Severity Reaction Status Date / Time No Known Allergies Allergy Verified 09/28/24 11:32 [No Known Allergies*] Active Medications: Current Medications Acetaminophen (Acetaminophen 325 Mg Tablet) 650 mg PO Q6H PRN PRN Reason: Pain, Mild 1-3,fever,headache Benzonatate (Benzonatate 100 Mg Capsule) 100 mg PO TID PRN PRN Reason: Cough Calcium Carbonate (Calcium Carbonate 750 Mg Tab.Chew) 750 mg PO Q4H PRN PRN Reason: Heartburn Sodium Chloride (Ns) 1,000 mls @ 100 mls/hr IVCONT .Q10H [facility] Insulin Human Lispro (Insulin Lispro 100 Unit/Ml 3 Ml Vial) 0 unit SUBCUT QIDACHS [facility]; Protocol Last Admin: 09/28/24 16:50 Dose: Not Given Magnesium Hydroxide (Milk Of Magnesia 30 Ml Oral.Susp) 30 ml PO DAILY PRN PRN Reason: Constipation Melatonin (Melatonin 3 Mg Tablet) 6 mg PO BEDTIME PRN PRN Reason: Insomnia Ondansetron HCl (Ondansetron Hcl 4 Mg/2 Ml Vial) 4 mg IVPUSH Q8H PRN PRN Reason: Nausea and Vomiting Sodium Chloride (0.9 % Sodium Chloride Flush 3 Ml Syringe) [facility] Last Admin: 09/28/24 16:49 Dose: Not Given Home Medications ?Medication ?Instructions ?Recorded ?Confirmed ?Last Taken ?Type letrozole 2.5 mg tablet 2.5 mg PO DAILY 02/15/23 09/01/24 Unknown History amlodipine 10 mg tablet 10 mg PO DAILY 04/22/23 09/01/24 Unknown History nebulizers 04/22/23 09/01/24 Unknown History abemaciclib 100 mg tablet 100 mg PO DAILY 08/18/24 09/01/24 Unknown History (Verzenio) glyburide 1.25 mg tablet 1.25 mg PO DAILY 08/18/24 09/01/24 Unknown History furosemide 20 mg tablet (Lasix) 20 mg PO DAILY PRN edema 09/28/24 Unknown History Physical Exam 2 Vital Signs and Narrative: Vital Signs: Last Vital Signs Temp 98.4 F 09/28/24 16:42 Pulse 67 09/28/24 16:42 Resp 16 09/28/24 16:42 BP 158/78 H 09/28/24 16:42 Pulse Ox 97 09/28/24 16:42 O2 Del Method Room Air 09/28/24 16:42 BMI result Body Mass Index 34.4 Const: Other: Constitutional : Awake, interactive, not in distress Neck : Normal inspection, Supple Cardiovascular : RRR, no JVP, no lower extremity edema Respiratory : good bilateral air entry, no crackles, wheezes or rhonchi Gastrointestinal: soft, lax, Normal bowel sounds, Non tender Skin : Warm, Dry Neurological : Alert & oriented to self , No focal deficit Results Labs 09/28/24 12:27 09/28/24 12:27 Labs: Laboratory Results - last 24 hr 09/28/24 09/28/24 12:27 16:41 MCV 94.3 MCH 31.9 MCHC 33.8 RDW 13.8 Plt Count 289 MPV 9.3 L Immature Gran % (Auto) 0.2 Neut % (Auto) 59.0 Lymph % (Auto) 27.0 [place] % (Auto) 12.6 H Eos % (Auto) 0.6 Baso % (Auto) 0.6 Lymph # (Auto) 1.4 [place] # (Auto) 0.6 Eos # (Auto) 0.0 Baso # (Auto) 0.0 Abs Immat Gran (auto) 0.01 Absolute Neuts (auto) 3.0 Absolute Nucleated RBC 0.000 Nucleated RBC % (auto) 0.0 PT 17.3 H INR 1.5 H Anion Gap 14 Estim Creat Clear Calc 29.8 Estimated GFR 34 POC Glucose 63 Random Glucose 96 Calcium 8.5 D Magnesium 2.3 Total Bilirubin 0.3 AST 424 H ALT 95 H Alkaline Phosphatase 67 Total Creatine Kinase 55828 H B-Natriuretic Peptide 79 Total Protein 6.8 Albumin 3.7 Influenza Type A (PCR) NEGATIVE Influenza Type B (PCR) NEGATIVE RSV RNA Qual (PCR) NEGATIVE SARS-CoV-2 RNA (RT-PCR) NEGATIVE Imaging Radiologist's Impressions: Impressions Cervical Spine CT 09/28/24 11:52 IMPRESSION: 1. No CT evidence of acute cervical spine fracture or injury. 2. Moderate diffuse spondylosis. Electronically signed by: Kory Mckenzie MD 09/28/2024 02:25 PM EDT RP Chest CT 09/28/24 11:52 IMPRESSION: No evidence of traumatic injury to the chest, abdomen, or pelvis. Incidental findings as described above. Electronically signed by: Chinedu Gaspar MD 09/28/2024 02:07 PM EDT RP Head CT 09/28/24 11:52 IMPRESSION: No acute intracranial abnormality.. Electronically signed by: Kory Mckenzie MD 09/28/2024 02:19 PM EDT RP Abdomen/Pelvis CT 09/28/24 13:14 IMPRESSION: No evidence of traumatic injury to the chest, abdomen, or pelvis. Incidental findings as described above. 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 [address] start IVF maintenance Follow CK and BMP monitor I\O Fall PT eval Asthma w exacerbation 2/2 URI Steroids Nebulizer O2 supplement as needed Elevated Trop type II related to fall and Rhabdo no chest pain or EKG changes to suggest ACS Transaminitis related to rhabdo, monitor LFT CKDIII stable, monitor KFT DMII SSI, POC, diabetic diet Hx DVT on Eliquis Pending MEd rec The patient will be admitted for treatment of acute rhabbdomyolysis and asthma exacerbation on IV fluids, steroids and nebulizer pending improvement of CK and respratory status Quality Stroke Does the patient have a stroke diagnosis?: No VTE Prior VTE?: No VTE Risk Level:: Medical - moderate - high VTE Device Contraindication: Treatment Not Indicated VTE Drug Contraindication: N/A - Med Ordered
[2024-09-28] MEDS: 0.9 % Sodium Chloride 1,000 ML 100 ML IVCONT (18:00)
[2024-09-28] MEDS: Benzonatate 100 MG CAPSULE PO (18:01)
--- NOTE | 2024-09-28 19:12 | PHA.MEDREC ---
Addendum entered by Brianna Reyes RPh 09/28/24 20:27: REVIEWED BY [facility]. CONCERNS FOR CONTINUATION OF GLYBURIDE AFTER RX DISCONTINUED IS BEING RELAYED TO PROVIDER. Original Note: Pharmacy Consult ? Medication Reconciliation Pharmacy has completed the medication reconciliation.Spoke with patients family at bedside who was able to confirm the patients medications. Family confirmed the patient still takes Atorvastatin at bedtime but did not remember the dose; the family stated to call [facility], where the patient currently fills all her meds. [facility] confirmed they have not filled the Atorvastatin since 05/2023. They family stated they couldn't remember if the patient still takes the Furosemide 20mg tab as needed for fluid retention or not and did not think so; [facility] confirmed that is still active and they are filling it right now for the patient. The family confirmed the patient is still taking the Glyburide 1.25mg tab once a day; [facility] stated the patients doctor discontinued that medication 05/2024. The family confirmed the patient still has Breo at home she uses once in the AM but in claim and per [facility] the patient has not gotten that since 04/2024 for 30.
[2024-09-28] MEDS: methylPREDNISolone Sod Succ 40 MG/ML VIAL IVPUSH (19:56)
[2024-09-28] MEDS: Albuterol Sulfate (0.083%) 2.5 MG/3 ML VIAL.NEB INHALE (20:13)
--- NOTE | 2024-09-28 20:18 | PC.NURSE ---
assumed care for pt at 1900. pt in no notable distress, resting quietly, pts family is bedside visiting. pts needs met at this time call truong is within reach. plan of care ongoing.
[2024-09-28] MEDS: Apixaban 5 MG TABLET PO (20:49)
[2024-09-28] MEDS: Mirtazapine 7.5 MG TABLET PO (20:50)
[2024-09-28] MEDS: Metoprolol Tartrate 25 MG TABLET PO (20:50)
--- NOTE | 2024-09-28 20:55 | MHC.EDTECH ---
2100 ,blood sugar check ,RADHAMES Bran aware of result ,,Snack offer Pt refused .
--- NOTE | 2024-09-28 21:17 | MHC.EDTECH ---
urine sample collected and sent to lab .
[2024-09-28 21:18] LABS: Glucose, Whole Blood 90 mg/dL (60-115)
[2024-09-28 22:29] LABS: Appearance Urine Clear; Color Urine Yellow; Glucose Urine UA Negative (Negative); Leukocyte Esterase Urine Trace (Negative); Nitrite Urine Negative (Negative); Specific Gravity - Urine 1.025 (1.005-1.025); UMIC TRIGGER UACC YES; Urine Blood Trace (Negative); Urine Ketones Negative (Negative); Urine Protein Negative (Neg-Trace)
[2024-09-28 22:32] LABS: Bacteria Urine None Seen (None Seen); Hyaline Casts Urine 0-2 /LPF (0-2); RBC Urine 0-2 /HPF (0-2); Squamous Epithelial Cell Urine 0-2 /HPF (0-2); WBC Urine 0-5 /HPF (0-5)
[2024-09-29] VITALS (13 sets, daily range): BP systolic 123–173; BP diastolic 59–84; PULSE 56–90; RESP 16–20; TEMP 36–36.8; O2SAT 94–99; BMI 35.8
[2024-09-29] MEDS: 0.9 % Sodium Chloride 1,000 ML 100 ML IVCONT ×3 (02:44→23:47)
[2024-09-29 04:22] LABS: MANUAL DIFF FLAG NO
[2024-09-29 04:24] LABS: Basophils Percent Auto 0.2 % (0-2); Hematocrit 38.9 % (37.0-47.0); Hemoglobin 12.5 g/dl (12.0-16.0); Imm Gran Abs Auto 0.01 X10*3/uL (0.00-0.03); Imm Gran Pct Auto 0.2 % (0.0-0.4); Lymphocytes Absolute Auto 0.8 X10*3/uL (1.2-4.9); Lymphocytes Percent Auto 16.3 % (20-40); Mean Corpuscular HGB Conc 32.1 g/dl (31.0-35.0); Mean Corpuscular Hemoglobin 31.2 pg (27.0-33.0); Mean Platelet Volume 9.7 fL (9.4-12.3); Monocytes Absolute Auto 0.1 X10*3/uL (0.1-1.2); Monocytes Percent Auto 2.4 % (2-11); Neutrophils Absolute Auto 3.7 x10*3/uL (2.0-8.3); Neutrophils Percent Auto 80.9 % (45-73); Platelet Count 315 X10*3/uL (160-400); Red Blood Count 4.01 X10*6/uL (4.20-5.50); Red Cell Distribution Width 13.7 % (11.0-16.0); White Blood Count 4.6 X10*3/uL (4.8-10.8)
[2024-09-29 04:45] LABS: Alanine Aminotransferase 100 U/L (0-31); Albumin Level 3.6 g/dL (3.5-5.0); Anion Gap 13 (12-20); Aspartate Amino Transferase 350 U/L (5-31); Bilirubin Total 0.2 mg/dL (0.0-1.0); Blood Urea Nitrogen 20 mg/dL (9-16); Calcium 8.3 mg/dL (8.4-10.2); Carbon Dioxide 20 mmol/L (22-29); Chloride 110 mmol/L (96-108); Creatinine Clr Calc Pharmacy 36.4; Estimated Glomerular Filt Rate 42; Glucose Random 213 mg/dL (60-115); Potassium 5.1 mmol/L (3.3-5.1); Sodium 138 mmol/L (135-145)
[2024-09-29 04:46] LABS: Alkaline Phosphatase 72 U/L (39-117)
[2024-09-29 07:30] LABS: Glucose, Whole Blood 161 mg/dL (60-115)
[2024-09-29] MEDS: Albuterol Sulfate (0.083%) 2.5 MG/3 ML VIAL.NEB INHALE ×4 (07:45→19:30)
--- NOTE | 2024-09-29 07:47 | PC.NURSE ---
Assumed care at 0700 - patient c/o 910 chest pain, worse w/ coughing, onset several days prior. Patient describes pain as something being damaged inside . Dr Lucio notified - no new orders at this time.
[2024-09-29] MEDS: Insulin Lispro 100 UNIT/ML 3 ML VIAL SUBCUT ×2 (08:03→11:59)
[2024-09-29] MEDS: Benzonatate 100 MG CAPSULE PO ×2 (09:29→17:29)
[2024-09-29] MEDS: Metoprolol Tartrate 25 MG TABLET PO ×2 (09:30→20:24)
[2024-09-29] MEDS: Apixaban 5 MG TABLET PO ×2 (09:30→20:24)
[2024-09-29] MEDS: Cholecalciferol (Vitamin D3) 25 MCG TABLET 50 MCG PO (09:30)
[2024-09-29] MEDS: Gabapentin 400 MG CAPSULE 800 MG PO ×3 (09:31→20:21)
[2024-09-29] MEDS: Letrozole 2.5 MG TABLET PO (09:32)
[2024-09-29] MEDS: Acetaminophen 325 MG TABLET 650 MG PO ×2 (09:32→17:25)
--- NOTE | 2024-09-29 10:33 | HO.PM.IMPN ---
Subjective Subjective Date of Service: 09/29/24 Interval History: cough, otherwise feeling better Physical Exam Vital Signs: Vital Signs: Last Vital Signs Temp 96.8 F 09/29/24 09:09 Pulse 64 09/29/24 09:09 Resp 18 09/29/24 09:09 BP 137/65 09/29/24 09:09 Pulse Ox 98 09/29/24 09:09 O2 Del Method Room Air 09/29/24 09:09 BMI result Body Mass Index 35.8 General: AO X 1, no acute distress Resp: rhonchi bilateral, no accessory muscles used CVS: S1,S2,RRR GI: soft, non tender, non distended Neuro: motor grossly intact, alert Objective Data Active Medications Acetaminophen (Acetaminophen 325 Mg Tablet) 650 mg PO Q6H PRN PRN Reason: Pain, Mild 1-3,fever,headache Last Admin: 09/29/24 09:32 Dose: 650 mg Documented By: NOELLE Albuterol Sulfate (Albuterol Sulfate (0.083%) 2.5 Mg/3 Ml Vial.Neb) 2.5 mg INHALE RQ4H WHILE AWAKE [facility] Last Admin: 09/29/24 07:45 Dose: 2.5 mg Documented By: AHMET Albuterol Sulfate (Albuterol Sulfate (0.083%) 2.5 Mg/3 Ml Vial.Neb) 2.5 mg INHALE Q4H PRN PRN Reason: Shortness of Breath/Wheezing Amitriptyline HCl (Amitriptyline Hcl 10 Mg Tablet) 10 mg PO BEDTIME [facility] Apixaban (Apixaban 5 Mg Tablet) 5 mg PO BID [facility] Last Admin: 09/29/24 09:30 Dose: 5 mg Documented By: NOELLE Atorvastatin Calcium (Atorvastatin Calcium 20 Mg Tablet) 20 mg PO BEDTIME [facility] Benzonatate (Benzonatate 100 Mg Capsule) 100 mg PO TID PRN PRN Reason: Cough Last Admin: 09/29/24 09:29 Dose: 100 mg Documented By: NOELLE Calcium Carbonate (Calcium Carbonate 750 Mg Tab.Chew) 750 mg PO Q4H PRN PRN Reason: Heartburn Donepezil HCl (Donepezil Hcl 5 Mg Tablet) 5 mg PO DAILY [facility] Escitalopram Oxalate (Escitalopram Oxalate 5 Mg Tablet) 5 mg PO DAILY PRN PRN Reason: Anxiety Gabapentin (Gabapentin 400 Mg Capsule) 800 mg PO TID [facility] Last Admin: 09/29/24 09:31 Dose: 800 mg Documented By: NOELLE Sodium Chloride (Ns) 1,000 mls @ 100 mls/hr IVCONT .Q10H [facility] Last Admin: 09/29/24 02:44 Dose: 100 mls/hr Documented By: TAMRA Insulin Human Lispro (Insulin Lispro 100 Unit/Ml 3 Ml Vial) 0 unit SUBCUT QIDACHS [facility]; Protocol Last Admin: 09/29/24 08:03 Dose: 2 unit Documented By: TONI Letrozole (Letrozole 2.5 Mg Tablet) 2.5 mg PO DAILY [facility] Last Admin: 09/29/24 09:32 Dose: 2.5 mg Documented By: NOELLE Magnesium Hydroxide (Milk Of Magnesia 30 Ml Oral.Susp) 30 ml PO DAILY PRN PRN Reason: Constipation Melatonin (Melatonin 3 Mg Tablet) 6 mg PO BEDTIME PRN PRN Reason: Insomnia Methylprednisolone Sodium Succinate (Methylprednisolone Sod Succ 40 Mg/Ml Vial) 40 mg IVPUSH Q24H [facility] Last Admin: 09/28/24 19:56 Dose: 40 mg Documented By: TAMRA Metoprolol Tartrate (Metoprolol Tartrate 25 Mg Tablet) 25 mg PO BID [facility]; Protocol Last Admin: 09/29/24 09:30 Dose: 25 mg Documented By: NOELLE Mirtazapine (Mirtazapine 7.5 Mg Tablet) 7.5 mg PO BEDTIME [facility] Last Admin: 09/28/24 20:50 Dose: 7.5 mg Documented By: TAMRA Non-Formulary Medication (Abemaciclib [Verzenio]) 100 mg PO DAILY [facility] Non-Formulary Medication (Memantine) 28 mg PO DAILY [facility] Ondansetron HCl (Ondansetron Hcl 4 Mg/2 Ml Vial) 4 mg IVPUSH Q8H PRN PRN Reason: Nausea and Vomiting Sodium Chloride (0.9 % Sodium Chloride Flush 3 Ml Syringe) 3 ml IVFLUSH QSHIFT [facility] Last Admin: 09/29/24 08:00 Dose: Not Given Documented By: TONI Non-Admin Reason: IV Running Trazodone HCl (Trazodone Hcl 100 Mg Tablet) 200 mg PO BEDTIME [facility] Vitamin D (Cholecalciferol (Vitamin D3) 25 Mcg Tablet) 50 mcg PO DAILY [facility] Last Admin: 09/29/24 09:30 Dose: 50 mcg Documented By: NOELLE Labs 09/29/24 03:31 09/29/24 03:31 Labs: Laboratory Results - last 24 hr 09/28/24 09/28/24 09/28/24 12:27 16:41 20:54 MCV 94.3 MCH 31.9 MCHC 33.8 RDW 13.8 Plt Count 289 MPV 9.3 L Immature Gran % (Auto) 0.2 Neut % (Auto) 59.0 Lymph % (Auto) 27.0 [place] % (Auto) 12.6 H Eos % (Auto) 0.6 Baso % (Auto) 0.6 Lymph # (Auto) 1.4 [place] # (Auto) 0.6 Eos # (Auto) 0.0 Baso # (Auto) 0.0 Abs Immat Gran (auto) 0.01 Absolute Neuts (auto) 3.0 Absolute Nucleated RBC 0.000 Nucleated RBC % (auto) 0.0 PT 17.3 H INR 1.5 H Anion Gap 14 Estim Creat Clear Calc 29.8 Estimated GFR 34 POC Glucose 63 90 Random Glucose 96 Calcium 8.5 D Magnesium 2.3 Total Bilirubin 0.3 AST 424 H ALT 95 H Alkaline Phosphatase 67 Total Creatine Kinase 08038 H B-Natriuretic Peptide 79 Total Protein 6.8 Albumin 3.7 Urine Color Urine Appearance Urine pH Ur Specific [place] Urine Protein Urine Glucose (UA) Urine Ketones Urine Blood Urine Nitrite Ur Leukocyte Esterase Urine RBC Urine WBC Ur Squamous Epith Cells Urine Bacteria Hyaline Casts Influenza Type A (PCR) NEGATIVE Influenza Type B (PCR) NEGATIVE RSV RNA Qual (PCR) NEGATIVE SARS-CoV-2 RNA (RT-PCR) NEGATIVE 09/28/24 09/29/24 09/29/24 21:10 03:31 07:22 MCV 97.0 MCH 31.2 MCHC 32.1 RDW 13.7 Plt Count 315 MPV 9.7 Immature Gran % (Auto) 0.2 Neut % (Auto) 80.9 H Lymph % (Auto) 16.3 L [place] % (Auto) 2.4 Eos % (Auto) 0.0 Baso % (Auto) 0.2 Lymph # (Auto) 0.8 L [place] # (Auto) 0.1 Eos # (Auto) 0.0 Baso # (Auto) 0.0 Abs Immat Gran (auto) 0.01 Absolute Neuts (auto) 3.7 Absolute Nucleated RBC 0.000 Nucleated RBC % (auto) 0.0 PT INR Anion Gap 13 Estim Creat Clear Calc 36.4 Estimated GFR 42 POC Glucose 161 H Random Glucose 213 H Calcium 8.3 L Magnesium Total Bilirubin 0.2 AST 350 H ALT 100 H Alkaline Phosphatase 72 Total Creatine Kinase 60992 H B-Natriuretic Peptide Total Protein 7.0 Albumin 3.6 Urine Color Yellow Urine Appearance Clear Urine pH 7.0 Ur Specific [place] 1.025 Urine Protein Negative Urine Glucose (UA) Negative Urine Ketones Negative Urine Blood Trace H Urine Nitrite Negative Ur Leukocyte Esterase Trace H Urine RBC 0-2 Urine WBC 0-5 Ur Squamous Epith Cells 0-2 Urine Bacteria None Seen Hyaline Casts 0-2 Influenza Type A (PCR) Influenza Type B (PCR) RSV RNA Qual (PCR) SARS-CoV-2 RNA (RT-PCR) Assessment and Plan (1) Rhabdomyolysis: Status: Acute Plan 74F PMH DVT/PE on apixaban, dementia, CAD, YAMILA, HLD, pulm htn, depression, asthma. Unwitnessed fall complicated by acute rhabdomyolysis Continue IV fluids and monitor CPK and BMP PT eval Mild intermittent asthma with acute decompensation Continue steroids and nebs Unspecified dementia Stable History of DVT/PE Apixaban Coronary artery disease Apixaban, statin Full code reason for continued hospitalization: IV fluids for rhabdo Quality Stroke Does the patient have a stroke diagnosis?: No VTE Prior VTE?: No VTE Risk Level:: Medical - moderate - high VTE Device Contraindication: Treatment Not Indicated VTE Drug Contraindication: N/A - Med Ordered
--- NOTE | 2024-09-29 10:37 | MHC.CM.PN ---
IMM 09/29/24, EMR REVIEWED, CM MET W/PT AND DTR VERONICA (ADDITIONAL FAMILY MEMBER AT BEDSIDE), VERONICA REPORTS PT LIVES ALONE, USES A CANE/WALKER OR WC DEPENDING ON HOW SHE IS FEELING, HAS 2 [employer] PACK[employer]ER'S 40HR/WK. PCP ON FILE VERIFIED, HCP VERIFIED AND ON FILE UNDER SCANNED DOCUMENTS NAMES PRIMARY CONTACT CAROLYNE AND VERONICA. P.T. RECOMMENDING HOME SERVICES, [facility] REFERRAL PLACED.
[2024-09-29 11:36] LABS: Glucose, Whole Blood 151 mg/dL (60-115)
[2024-09-29] MEDS: Donepezil HCl 5 MG TABLET PO (13:33)
[2024-09-29 16:28] LABS: Glucose, Whole Blood 106 mg/dL (60-115)
[2024-09-29] MEDS: methylPREDNISolone Sod Succ 40 MG/ML VIAL IVPUSH (20:20)
[2024-09-29] MEDS: Atorvastatin Calcium 20 MG TABLET PO (20:23)
[2024-09-29] MEDS: traZODone HCL 100 MG TABLET 200 MG PO (20:23)
[2024-09-29] MEDS: Amitriptyline HCl 10 MG TABLET PO (20:24)
[2024-09-29] MEDS: Mirtazapine 7.5 MG TABLET PO (20:25)
[2024-09-29 21:42] LABS: Glucose, Whole Blood 140 mg/dL (60-115)
[2024-09-30 04:00] VITALS: BP 178/76; PULSE 75; RESP 18; TEMP 36.5; O2SAT 97
[2024-09-30 06:02] LABS: Hematocrit 33.2 % (37.0-47.0); Mean Corpuscular HGB Conc 33.1 g/dl (31.0-35.0); Mean Corpuscular Hemoglobin 31.7 pg (27.0-33.0); Mean Corpuscular Volume 95.7 fL (80.0-98.0); Platelet Count 328 X10*3/uL (160-400); Red Blood Count 3.47 X10*6/uL (4.20-5.50); Red Cell Distribution Width 13.7 % (11.0-16.0)
--- NOTE | 2024-09-30 06:07 | PC.NURSE ---
This RN assumed care at 1900, Pt AOx4, English speaking only, jack of all trades used as needed. ambulatory with walker to BR with steady gait, Lung sounds expiratory wheezy throughout, and diminished, productive intermittent cough, pt denied pain over night and was able to sleep through the night. IVF running, Camera in room for safety. VSS.
[2024-09-30 06:34] LABS: Alanine Aminotransferase 77 U/L (0-31); Albumin Level 3.4 g/dL (3.5-5.0); Anion Gap 12 (12-20); Aspartate Amino Transferase 179 U/L (5-31); Bilirubin Direct < 0.2 mg/dL (0.0-0.5); Bilirubin Total 0.2 mg/dL (0.0-1.0); Blood Urea Nitrogen 17 mg/dL (9-16); Calcium 8.4 mg/dL (8.4-10.2); Carbon Dioxide 21 mmol/L (22-29); Chloride 111 mmol/L (96-108); Creatinine Clr Calc Pharmacy 43.4; Estimated Glomerular Filt Rate 53; Glucose Random 248 mg/dL (60-115); Magnesium 2.2 mg/dL (1.6-2.6); Potassium 4.7 mmol/L (3.3-5.1); Sodium 139 mmol/L (135-145); Total Protein 6.3 g/dL (6.5-8.0)
[2024-09-30 06:46] LABS: Alkaline Phosphatase 59 U/L (39-117)
[2024-09-30 07:29] VITALS: PULSE 75; RESP 18; O2SAT 98
[2024-09-30] MEDS: Albuterol Sulfate (0.083%) 2.5 MG/3 ML VIAL.NEB INHALE ×2 (07:29→12:18)
[2024-09-30 07:35] LABS: Glucose, Whole Blood 189 mg/dL (60-115)
[2024-09-30 07:38] VITALS: BP 178/82; PULSE 65; RESP 17; TEMP 37; O2SAT 96
[2024-09-30] MEDS: Apixaban 5 MG TABLET PO (08:12)
[2024-09-30] MEDS: Metoprolol Tartrate 25 MG TABLET PO (08:12)
[2024-09-30] MEDS: Cholecalciferol (Vitamin D3) 25 MCG TABLET 50 MCG PO (08:13)
[2024-09-30] MEDS: Gabapentin 400 MG CAPSULE 800 MG PO (08:14)
[2024-09-30] MEDS: Letrozole 2.5 MG TABLET PO (08:15)
[2024-09-30] MEDS: Insulin Lispro 100 UNIT/ML 3 ML VIAL SUBCUT (08:15)
[2024-09-30] MEDS: ABEMACICLIB 100 MG 100 EACH PO (08:16)
[2024-09-30] MEDS: Acetaminophen 325 MG TABLET 650 MG PO (08:25)
--- NOTE | 2024-09-30 10:25 | P.DS_ITS ---
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 The patient has been having URI symptoms for couple of weeks. daughter went to her place where she found her on the floor. she was sleeping for hours on the floor. lives by herslef. ambulate with cane\walker. no falls. No chest pain, palpitations, SOB, nausea, vomiting, diarrhea or urinary symptoms[place] [address] with no QUIN at this point. Will be admitted for further work up and management. hospital course: Patient was admitted for unwitnessed fall complicated by acute rhabdomyolysis. She was treated with IV fluids and CPK significantly improved it is below 5000 at time of discharge. Statin has been discontinued. Patient did not have acute kidney injury. For mild intermittent asthma with acute decompensation was treated with steroids and nebulizers and will continue 5 more days of prednisone on discharge. For unspecified dementia remained stable. For history of DVT/PE was continued on apixaban. For coronary artery disease was continued on a pixaban and statin. Time Attestation Discharge Coordination Time (in mins): 37 Quality: Safe Use of Opioids Does Pt have an Active Cancer Diagnosis on the Problem List?: No Quality: Stroke Does the patient have a stroke diagnosis?: No Physical Exam Vital Signs: Vital Signs: Last Vital Signs Temp 98.6 F 09/30/24 07:38 Pulse 65 09/30/24 07:38 Resp 17 09/30/24 07:38 BP 178/82 H 09/30/24 07:38 Pulse Ox 96 09/30/24 07:38 O2 Del Method Room Air 09/30/24 04:00 BMI result Body Mass Index 35.8 General: AO X 1, no acute distress Resp: cta bilateral, no accessory muscles used CVS: S1,S2,RRR GI: soft, non tender, non distended Neuro: motor grossly intact, alert DS: Data Data Completed and Pending Completed studies during hospitalization [Text1]: Procedures Drainage of Chest Wall with Drainage Device, Open Approach (04/13/22) Drainage of Left Breast, Percutaneous Approach (03/30/22) Excision of Chest Subcutaneous Tissue and Fascia, Open Approach, Diagnostic (05/05/22) Insertion of Infusion Device into Superior Vena Cava, Percutaneous Approach (12/25/22) Resection of Bilateral Breast, Open Approach (02/19/22) Resection of Right Axillary Lymphatic, Open Approach (02/19/22) Ultrasonography of Superior Vena Cava, Guidance (12/25/22) Labs on day of discharge: Laboratory Results - last 24 hr 09/29/24 09/29/24 09/29/24 11:32 16:24 21:38 WBC RBC Hgb Hct MCV MCH MCHC RDW Plt Count MPV Absolute Nucleated RBC Nucleated RBC % (auto) Sodium Potassium Chloride Carbon Dioxide Anion Gap BUN Creatinine Estim Creat Clear Calc Estimated GFR POC Glucose 151 H 106 140 H Random Glucose Calcium Magnesium Total Bilirubin Direct Bilirubin AST ALT Alkaline Phosphatase Total Creatine Kinase Total Protein Albumin 09/30/24 09/30/24 05:15 07:31 WBC 6.0 RBC 3.47 L Hgb 11.0 L Hct 33.2 L MCV 95.7 MCH 31.7 MCHC 33.1 RDW 13.7 Plt Count 328 MPV 10.0 Absolute Nucleated RBC 0.000 Nucleated RBC % (auto) 0.0 Sodium 139 Potassium 4.7 Chloride 111 H Carbon Dioxide 21 L Anion Gap 12 BUN 17 H Creatinine 1.01 Estim Creat Clear Calc 43.4 Estimated GFR 53 POC Glucose 189 H Random Glucose 248 H Calcium 8.4 Magnesium 2.2 Total Bilirubin 0.2 Direct Bilirubin < 0.2 AST 179 H ALT 77 H Alkaline Phosphatase 59 Total Creatine Kinase 4553 H Total Protein 6.3 L Albumin 3.4 L Discharge Plan Discharge Anticipated Discharge Date/Time: 09/30/24 10:14 Patient Disposition: Home Health Service Discharge Diagnosis: rhabdo, asthma Referrals: Milan Mcgraw PA-C [Primary Care Provider] - 1 Week Discharge Medications: New prednisone 20 mg tablet 40 mg PO DAILY Qty: 10 0RF Continued (DME) Protective Underwear Ex-Large Misc See Rx Instructions .Route Qty: 56 3RF Rx Instructions: 2xl size Briefs. amitriptyline 10 mg tablet 10 mg PO BEDTIME 90 Days Qty: 90 3RF mirtazapine [Remeron] 15 mg tablet 15 mg PO BEDTIME 30 Days Qty: 30 6RF Eliquis 5 mg tablet 5 mg PO BID 90 Days Qty: 180 1RF fluticasone furoate-vilanterol [Breo Ellipta] 200-25 mcg/dose blister with device 1 inh inhalation DAILY 30 Days Qty: 60 0RF cholecalciferol (vitamin D3) [Vitamin D3] 50 mcg (2,000 unit) Tablet 50 mcg PO DAILY Qty: 90 4RF acetaminophen 325 mg tablet 325 mg PO Q6H PRN (Reason: pain) 30 Days Qty: 120 3RF glimepiride 1 mg tablet 1 mg PO DAILY Qty: 90 1RF albuterol sulfate 2.5 mg /3 mL (0.083 %) solution for nebulization 2.5 mg inhalation Q6H PRN (Reason: shortness of breath or wheezing) 30 Days Qty: 360 1RF dicyclomine 10 mg capsule 20 mg PO QID 30 Days Qty: 240 3RF memantine 28 mg capsule,sprinkle,ER 24hr 28 mg PO DAILY 30 Days Qty: 30 6RF oxycodone 15 mg tablet 15 mg PO Q8H 28 Days Qty: 84 0RF Rx Instructions: Partial Fill upon patient request. letrozole 2.5 mg tablet 2.5 mg PO DAILY furosemide [Lasix] 20 mg tablet 20 mg PO DAILY PRN (Reason: edema) Rx Instructions: Take 1 tablet daily as needed for lower leg swelling ibuprofen 200 mg Tablet 800 mg PO Q6H PRN (Reason: Pain) diclofenac sodium 1 % Gel 2 g TOPICAL BID PRN (Reason: Arthritis Pain) Rx Instructions: apply to single elbow, wrist or hand; for hand includes palm/fingers/back of hand cyclobenzaprine 10 mg tablet 10 mg PO TID PRN (Reason: Muscle Spasm) escitalopram oxalate 5 mg tablet 5 mg PO DAILY PRN (Reason: Anxiety) Ozempic 0.25 mg or 0.5 mg (2 mg/3 mL) pen injector 0.5 mg subcut TH (DME) nebulizers [AeroEclipse II Nebulizer] Misc See Rx Instructions .Route Qty: 1 0RF Rx Instructions: As directed (DME) Wheel chair Kit See Rx Instructions .Route Qty: 1 0RF Rx Instructions: As directed (DME) incontinence pad, liner, disp Pad See Rx Instructions .Route Qty: 400 3RF Rx Instructions: As directed (DME) Wheel chair Kit See Rx Instructions .Route Qty: 1 0RF Rx Instructions: Need for transfer wheelchair (DME) lancets [FreeStyle Lancets] 28 gauge misc See Rx Instructions .ROUTE .MEDSUPPLY Qty: 100 3RF Rx Instructions: As directed (DME) Blood Pressure Cuff Misc See Rx Instructions .ROUTE .MEDSUPPLY Qty: 1 0RF Rx Instructions: As directed Verzenio 100 mg tablet 100 mg PO DAILY glyburide 1.25 mg tablet 1.25 mg PO DAILY (DME) nebulizers Misc See Rx Instructions .Route Rx Instructions: As directed budesonide-formoterol [Symbicort] 80-4.5 mcg/actuation HFA aerosol inhaler 2 puff inhalation BID 30 Days Qty: 10.2 11RF donepezil 5 mg tablet 5 mg PO DAILY 30 Days Qty: 30 1RF trazodone 100 mg tablet 200 mg PO BEDTIME 90 Days Qty: 180 1RF gabapentin 800 mg tablet 800 mg PO TID 90 Days Qty: 270 1RF (DME) blood-glucose meter [FreeStyle Lite Meter] Kit See Rx Instructions .ROUTE .MEDSUPPLY Qty: 1 0RF Rx Instructions: As directed (DME) FreeStyle Lite Strips Strip See Rx Instructions .ROUTE .MEDSUPPLY Qty: 100 3RF Rx Instructions: As directed metoprolol tartrate 50 mg tablet 50 mg PO BID Qty: 180 1RF Discontinued atorvastatin 20 mg tablet 20 mg PO BEDTIME Qty: 90 1RF Discharge Orders: Discharge Order (Routine); Ordered 09/30/24 Ordered By: Boni Lucio Diet: Advance to usual diet Activity on Discharge: As tolerated Stand Alone Forms: Patient Portal Discharge page Print Language: Bruneian Care Plan Goals: recovery Health Concerns: asthma, rhabdo Plan of Treatment: 5 days prednisone, holding statin for now Assessment: see above
[2024-09-30 11:44] LABS: Glucose, Whole Blood 185 mg/dL (60-115)
[2024-09-30 12:00] VITALS: BP 173/80; PULSE 65; RESP 15; TEMP 36.8; O2SAT 98
[2024-09-30 12:18] VITALS: PULSE 65; RESP 15; O2SAT 97
== END 2024-09-30 12:45 | disposition home health service (06) | DRG 558 ==
LOC: HO.ED 14:47 → HO.EDOVER 15:45 → HO.S3 09-29 07:28
PROVIDERS: Physician Assistant; Admitting Provider Student in an Organized Health Care Education/Training Program; Emergency Provider Emergency Medicine; PCP Physician Assistant; Visit Provider Internal Medicine
DX: M62.82 Rhabdomyolysis (principal); J45.21 Mild intermittent asthma with (acute) exacerbation; N18.30 Chronic kidney disease, stage 3 unspecified; I25.10 Atherosclerotic heart disease of native coronary artery without angina pectoris; E11.22 Type 2 diabetes mellitus with diabetic chronic kidney disease; F03.90 Unspecified dementia, unspecified severity, without behavioral disturbance, psychotic disturbance, mood disturbance, and anxiety; G47.33 Obstructive sleep apnea (adult) (pediatric); E78.5 Hyperlipidemia, unspecified; W19.XXXA Unspecified fall, initial encounter; I27.20 Pulmonary hypertension, unspecified; Z20.822 Contact with and (suspected) exposure to COVID-19; Z86.718 Personal history of other venous thrombosis and embolism; Z86.711 Personal history of pulmonary embolism; Z79.01 Long term (current) use of anticoagulants; Z79.51 Long term (current) use of inhaled steroids; Z79.84 Long term (current) use of oral hypoglycemic drugs; Z79.899 Other long term (current) drug therapy
CPT/HCPCS: 0241U; 36415; 70450; 71260; 72125; 74177; 80048; 80053; 80076; 81001; 82550; 82947; 83735; 83880; 84484; 85025; 85027; 85610; 93005; 94640; 97162; 99285; J2919; Q9967

== ENCOUNTER → 2024-09-28 11:42 | Outpatient (BNV) | payer OTHER, SELFPAY | PROVIDERS: Admitting Provider Student in an Organized Health Care Education/Training Program; Emergency Provider Emergency Medicine; PCP Physician Assistant; Visit Provider Internal Medicine | DX: I49.9 Cardiac arrhythmia, unspecified (principal) | CPT/HCPCS: 93010 ==

== ENCOUNTER → 2024-09-28 11:52 | Outpatient (BNV) | payer OTHER, SELFPAY | PROVIDERS: Emergency Provider Emergency Medicine; PCP Physician Assistant; Visit Provider Radiology Diagnostic Radiology | DX: M54.50 Low back pain, unspecified (principal); R10.30 Lower abdominal pain, unspecified; R07.9 Chest pain, unspecified; M54.2 Cervicalgia; R51.9 Headache, unspecified | CPT/HCPCS: 70450; 71260; 72125; 74177 ==

== ENCOUNTER → 2024-09-28 15:30 | Outpatient (BNV) | payer OTHER, SELFPAY | PROVIDERS: Admitting Provider Student in an Organized Health Care Education/Training Program; Emergency Provider Emergency Medicine; PCP Physician Assistant; Visit Provider Student in an Organized Health Care Education/Training Program | DX: M62.82 Rhabdomyolysis (principal) | CPT/HCPCS: 99223; 99232; 99239 ==

== ENCOUNTER 2024-10-05 12:50 | Outpatient (AMB) | payer OTHER, SELFPAY ==
[2024-10-05 13:04] VITALS: BP 140/80; PULSE 73; O2SAT 97; BMI 35.2
--- NOTE | 2024-10-05 13:04 | A.OFFVIS_ITS ---
Vital Signs 10/05/24 13:04 Height 4 ft 11 in Weight 174 lb 2.643 oz BMI 35.2 BP 140/80 H Blood Pressure Location Lt femoral Position Sitting Pulse 73 Pulse Source Pulse Oximeter Pulse Oximetry (%) 97 Oxygen Delivery Method Room Air Intake Visit Reasons: Asthma - post hosp follow up Allergies No Known Allergies [No Known Allergies*] Allergy (Verified 10/05/24 13:10) HPI Comments Details: The patient is a 74 year woman with a known history of breast cancer status post bilateral mastectomy and apparently had been on tamoxifen. A she was in usual state health until back over the summer she started developing significant lower extremity discomfort and swelling primarily the left leg. She had an ultrasound that demonstrating a DVT the patient was sent to the hospital. She was admitted to the hospital and that she had a CTA demonstrating also significant pulmonary emboli she. The patient was placed on Eliquis. During the hospitalization the patient did have elevations in the cardiac enzymes event therefore it was prefer to she treat her conservatively. She was evaluated by vascular surgery briefly. The patient subsequently was discharged and then she presented to [facility] in December with worsening left lower extremity pain. There she had another ultrasound demonstrating persistent extensive clot of the lower extremity. Rosy while she does complaint of dyspnea on exertion. She is limited as far as rectal and gait and she does have a walker or cane. During the visit we did have her go for 6 minutes walk test the patient did not desaturate she maintain a pulse ox of 96-98% which is reassuring however heart rate was elevated in the low 100s. We did review her CTA that she had back in November personally by me laterally that she had bilateral blood clots but she also had extensive ground-glass opacities. The etiology is unclear. Will go ahead and request blood work evaluation for the pneumonitis. She she is currently on Eliquis and she is off the tamoxifen altogether. She does follow closely with Oncology. Based on the fact the continues to have symptoms will going to repeat her CTA this point and also her left lower extremity Doppler to assess the clot burden. If she continues to have clot burden primarily the left lower extremity will go ahead and refer her back to vascular surgery. If her clot burden still significant in the chest area then will have to contemplate a different anticoagulation regimen for her. 06/10/2023 the patient is here for a pulmonary follow-up visit. Overall the patient has been doing fairly well from a respiratory status. She is still getting shortness of breath with activity. Qbyd-ix-jqntyaxd severity. She does relying walker. The patient has been using the Eliquis. She did have a repeat lower extremity Doppler demonstrating improvement in the chronic clot. This is reassuring that at least his decreasing size. Therefore we do not have to send her to vascular surgery. She did attempt to have the CTA done to see if she has any chronic clot in the lungs. However, after multiple IV catheter attempts the patient was not able to get IV in place in order to get the contrast dye. Therefore we had to cancel the CT scan. I did go with the patient for brief walking oximetry in the oxygen maintain between 96-97%. Heart rate was stable. Therefore I am reassured that her pulmonary vascular issues are improved. The patient also had a biopsy of a breast lesion in appears that she has recurrent breast cancer. The patient still not aware that she is going to find out the results tomorrow with her surgeon. Therefore based on the fact that she is going to need additional interventions will go ahead and continue with conservative therapy. She should continue with the Eliquis lifelong for the significant thrombotic event. The patient also continues use her respiratory therapy with good effect. And the oxygenation is also reassuring. 01/30/2024 the patient is here for a pulmonary follow-up visit. The patient has been complaining of worsening cough. Typically at nighttime. Typically when she lays back. Moderate severity. She also complains of some dyspnea on exertion. He she had been taking Breo some reason she has not been taking any longer. She does not like the powder inhalers. She would like the irritate her throat. She rather use the regular HFA. She did have a CT scan of the chest in 12/14/2023. This was done at [facility]. No evidence of any pneumonitis although she did have increased cardiac size and some pulmonary vascular congestion. The patient also has some lower extremity edema. She does have Lasix that she takes. The patient also continues on the Eliquis for her DVT. She is also following closely with oncology regarding her history of breast cancer. Her respiratory exam is reassuring. It is also reassuring that she does not have any further pneumonitis on her CT scan. No pulmonary nodules to be concerned about either. Will plan to treat her cough with inhaler therapy and also with the benzo nights. The patient should also sleep elevated. Will follow-up in 6-8 months. If she has any issues prior to that she will call for an earlier assessment. 10/05/2024 the patient is here for pulmonary follow-up visit. The patient is having significant issues with her walking her gait. She has had issues with fall. Recently she had a fall in her home and she was down 4 hours. Her family found her down and took her to the hospital the next day. She was found to have acute renal failure due to rhabdomyolysis. She hurt her lower extremity resulting significant pain and swelling of her muscle. The patient is now has better renal function. She started developing worsening cough chest congestion. Seems like it is getting worse. She is more short of breath. Moderate severity. During the hospitalization she did have a CT scan of the chest. No evidence of any acute pneumonia. This was personally by me today but she had the CAT scan back on September 28 when she was admitted to the hospital. Therefore will go ahead and treated with Augmentin for the possibility of aspiration bronchitis bronchiolitis. She also will need some prednisone since she is having rhonchi and wheezing. And will provide her some Mucinex DM to help with cough. Otherwise the patient will call if she is no better. Will plan to follow-up in 3-4 months. 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 Depression Arthritis IBS (irritable bowel syndrome) GERD (gastroesophageal reflux disease) Recurrent malignant neoplasm of right breast HTN (hypertension) Traumatic complete tear of right rotator cuff Surgical History Hx of excision of mass (08/14/23) History of excision of lesion (05/30/23) S/P bilateral mastectomy History of bilateral mastectomy (02/19/22) Hx of cholecystectomy Hx of appendectomy Hx of blepharoplasty History of esophagogastroduodenoscopy (EGD) History of lumpectomy of both breasts History of surgery History of colonoscopy S/P ANDRÉS-BSO (total abdominal hysterectomy and bilateral salpingo-oophorectomy) History of lumbar fusion Family History Father Heart problem Mother Heart disease Hypertension Colon cancer Epilepsy Maternal Grandmother Esophageal cancer Daughter Breast cancer Brother Lung cancer Sister Breast cancer Sister Breast cancer, Onset Age: 60 Sister COVID Daughter Acute kidney failure Social History Household Members: None Housing: Apartment Are you a primary geriatric care manager to a significant other at home: No Do you presently have visiting nurse or other home services: No Alcohol intake: never Comment: counts correct Patient Tobacco Use Status: Never used Tobacco e-Cigarette/Vaping Use: Never Used Second Hand Smoke Exposure: No Advance Directives Date on File: 06/13/23 service: No Current occupational status: disabled 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) Hearing needs: No Vision needs: Yes Female Reproductive History Menstrual Age of Menarche: 9 Review of Systems Const Denies chills, Reports fatigue, Denies fever(s) and Reports weight loss Eyes Denies change in vision ENT Denies dizziness Card Denies chest pain, Denies leg edema, Denies lightheadedness, Denies palpitations, Reports dyspnea on exertion, Denies orthopnea and Denies other Resp Reports chest congestion, Reports cough, Reports dyspnea on exertion and Denies wheezing GI Denies hematochezia and Denies change in stool character Musc Reports abnormal gait, Reports myalgias, Reports joint swelling, Reports limited range of motion, Reports muscle cramps, Reports muscle weakness, Denies numbness, Denies radiating pain into limb and Denies tingling Skin/Breast Denies rash Neuro Reports abnormal gait, Denies dizziness, Denies numbness and Denies tingling Endo Reports fatigue and Denies palpitations Neo/Lymph Denies easy bleeding, Denies easy bruising and Denies lymphadenopathy Aller/Immun Denies wheezing Physical Exam Vital Signs: Last Vital Signs Pulse 73 10/05/24 13:04 BP 140/80 H 10/05/24 13:04 Pulse Ox 97 10/05/24 13:04 Oxygen Delivery Method Room Air 10/05/24 13:04 BMI result Body Mass Index 35.2 Const General: no acute distress and alert HEENT Head: Yes atraumatic Neck Neck: Yes supple Chest Chest palpation & inspection: normal inspection of the chest Resp Effort & Inspection: normal respiratory effort Auscultation: no wheezes and diminished lung sounds Cardio Rate: regular rate Rhythm: regular rhythm Heart sounds: S1 normal heart sound present and S2 normal heart sound present GI Palpation (GI): Soft to palpation Skin General skin exam: no rashes or lesions noted Extrem General: No clubbing, No cyanosis and Yes edema Assessment & Plan Assessment & Plan (1) Pulmonary emboli: Code(s): I26.99 - Other pulmonary embolism without acute cor pulmonale Category: Medical Qualifiers: Pulmonary embolism type: multiple subsegmental (without acute cor pulmonale) Qualified Code(s): I26.94 - Multiple subsegmental pulmonary emboli without acute cor pulmonale (2) DVT (deep venous thrombosis): Code(s): I82.409 - Acute embolism and thrombosis of unspecified deep veins of unspecified lower extremity Category: Medical Qualifiers: Affected thrombotic vein of extremity: unspecified vein of extremity Chronicity: acute DVT location: lower extremity Laterality: left Qualified Code(s): I82.402 - Acute embolism and thrombosis of unspecified deep veins of left lower extremity (3) Pulmonary hypertension: Code(s): I27.20 - Pulmonary hypertension, unspecified Category: Medical (4) Pneumonitis: Comment: better Code(s): J98.4 - Other disorders of lung Category: Medical (5) History of bilateral mastectomy: Onset Date: 02/19/22 Comment: right breast modified radical mastectomy, prophylactic left simple mastectomy- now with recurrence Code(s): Z90.13 - Acquired absence of bilateral breasts and nipples Category: Surgical (6) Asthma: Code(s): J45.909 - Unspecified asthma, uncomplicated Category: Medical Qualifiers: Asthma severity: moderate Asthma persistence: persistent Asthma complication type: with acute exacerbation Qualified Code(s): J45.41 - Moderate persistent asthma with (acute) exacerbation (7) Bronchitis: Code(s): J40 - Bronchitis, not specified as acute or chronic Category: Medical Plan start Augmentin start Prednisone cough medicine continue Eliquis 5mg BID continue Symbicort continue JAMARCUS as needed Benzonates as needed for cough F/U 6 months Medications: New prednisone PO daily; Take 2 tabs daily x 5 days, then 1 tablet daily x 5 days 15 tabs 0RF 10 days dextromethorphan-guaifenesin 30-600 mg (Mucinex DM) 1 tab PO Q12H 28 tabs 0RF 14 days amoxicillin-pot clavulanate 875-125 mg 1 tab PO BID 20 tabs 0RF 10 days Coding Level of Care Code Est Pt Level 4 (90837) Complex EM visit Add On G2211 Diagnoses Multiple subsegmental pulmonary emboli without acute cor pulmonale I26.94 Pulmonary embolism type: multiple subsegmental (without acute cor pulmonale) Acute deep vein thrombosis (DVT) of left lower extremity, unspecified vein I82.402 Affected thrombotic vein of extremity: unspecified vein of extremity Chronicity: acute DVT location: lower extremity Laterality: left Pulmonary hypertension I27.20 Pneumonitis J98.4 History of bilateral mastectomy Z90.13 Moderate persistent asthma with acute exacerbation J45.41 Asthma severity: moderate Asthma persistence: persistent Asthma complication type: with acute exacerbation Bronchitis J40 Time Spent (min) 18
--- OUTSIDE RECORDS SUMMARY | 2024-10-05 13:07 | XMS_ITS | Clinical Summary ---
Author Organization [facility] Address [address] [place] [phone] Phone Care Team Providers Care Hone Operator Name Role Phone Milan Mcgraw Primary [...] 09/22/2024 11:30 AM EDT Office Visit [facility] Hematology Oncology [address] [place] [phone] Tiffany Ayers MD Malignant neoplasm of overlapping [...] loss 07/22/2024 11:00 AM EST Office Visit [facility] Hematology Oncology [address] [place] [phone] Tiffany Ayers MD Malignant neoplasm of overlapping [...] History Medical History Date Comments [place] [place] [facility] [place] DX:Breast cancer ([facility]) Hypertension DX:Hypertension COPD (chronic obstructive pu lmonary disease) [place] [place] [facility] [place] DX:COPD (chronic o bstructive pulmonary disease) ([facility]) Family History Medical History Relation Name Comments [...] Description 11/23/2024 11:15 AM EDT Office Visit [facility] Hematology Oncology [address] [place] [phone] Tiffany Nava MD [address] [place] [phone] Health Maintenance Due Date Last Done Comments [...] LAB HEMETOLOGY METHOD 09/22/2024 1:40 PM EDT [facility] RBC 3.90 3.80 - 4.80 M/mcL LAB HEMETOLOGY METHOD 09/22/2024 1:40 PM EDT [facility] Hemoglobin 12.3 11.5 - 16.0 g/dL LAB HEMETOLOGY METHOD 09/22/2024 1:40 PM EDT [facility] Hematocrit 38.3 35.0 - 47.0 % LAB [facility] M[facility] 98.7(H) 79.0 - 98.0 FL LAB H[facility]OLOGY [facility] MCH 31.7 27.0 - 32.0 pcg LAB HEMETOLOGY METHOD 09/22/2024 1:40 PM EDT [facility] MCHC 32.1 32.0 - 37.0 g/dL LAB HEMETOLOGY METHOD 09/22/2024 1:40 PM [facility] RDW 13.9 11.0 - 15.0 % LAB HEMETOLOGY METHOD 09/22/2024 1:40 PM [facility] Platelets 361 130 - 400 K/mcL LAB HEMETOLOGY METHOD [facility] MPV 10.0 7.0 - 11.0 FL LAB HEMETOLOGY METHOD [facility]24 [facility] NRBC 0.0 <1.0 % LAB HEMETOLOGY METHOD 09/22/2024 1:40 PM [facility] NRBC Absolute 0.00 <0.10 K/mcL LAB HEMETOLOGY METHOD 09/22/2024 [facility] Neutrophils Relative 54.8 % LAB HEMETOLOGY METHOD 09/22/2024 1:40 PM EDT [facility] Lymphocytes Relative 34.7 % LAB HEMETOLOGY METHOD 09/22[facility]24 [facility] Monocytes Relative 8.2 % LAB HEMETOLOGY METHOD 09/22/2024 1:40 PM EDT [facility] Eosinophils Relative 1.3 % LAB HEMETOLOGY METHOD 09/22/2024 1:40 PM EDT [facility] Basophils Relative 0.8 % LAB HEMETOLOGY METHOD 09/22/2024 1:40 PM EDT [facility] Immature Granulocytes Relative 0.2 % LAB HEMETOLOGY METHOD 09/22/2024 1:40 PM EDT [facility] Neutrophils Absolute 3.33 1.50 - 7.00 K/mcL LAB HEMETOLOGY METHOD 09/22/2024 1:40 PM EDT [facility] Lymphocytes Absolute 2.11 1.00 - 5.00 K/mcL LAB HEMETOLOGY METHOD 09/22/2024 1:40 PM EDT [facility] Monocytes Absolute 0.50 0.20 - 1.00 K/mcL LAB HEMETOLOGY METHOD 09/22/2024 1:40 PM EDT [facility] Eosinophils Absolute 0.08 0.00 - 0.50 K/mcL LAB HEMETOLOGY METHOD 09/22/2024 1:40 PM EDT [facility] Basophils Absolute 0.05 0.00 - 0.20 K/mcL LAB HEMETOLOGY METHOD 09/22/2024 1:40 PM EDT [facility] Immature Granulocytes Absolute 0.01 0.00 - 0.03 K/mcL LAB HEMETOLOGY METHOD 09/22/2024 1:40 PM EDT [facility] Blood Venous blood specimen / Unknown Venipuncture / Unknown 09/22/2024 12:00 PM EDT 09/22/2024 1:35 PM EDT us Tiffany Nava MD LAB BLOOD ORDERABLE S Final Result [facility] [address] [place] [address], * Cancer antigen (09/22/2024 12:00 PM EDT) Only the most recent of2 resultswithin the time period is included. Pathologist [facility] CA 27.29 31.0 <38.6 U/mL 09/25/2024 1:[address] [facility] Comment: The Siemens [employer] [id number] Chemiluminescent Immunoassay is used. Results obtained with different assay methods or kits cannot be used interchangeably. Results cannot be interpreted as absolute evidence of the presence or absence of malignant disease. Test performed at [facility], [address] , [place], [place] ??[address] ? [phone] Mary Albrecht MD, PhD - Coin Rolling Machine Operator Blood Venous blood specimen / Unknown Venipuncture / Unknown 09/22/2024 12:00 PM EDT 09/22/2024 1:35 PM EDT Tiffany Nava MD LAB BLOOD ORDERABLE S Final Result [facility] [address] [place] [address] * (ABNORMAL) Comprehensive metabolic panel (09/22/2024 12:00 PM EDT) Only the most recent of2 resultswithin the time period is included. Pathologist [facility] Sodium 141 133 - 145 mmol/L LAB CHEMISTRY METHOD 09/22/2024 2:14 PM EDT [facility] Potassium 4.6 3.5 - 5.5 mmol/L LAB CHEMISTRY METHOD 09/22/2024 2:14 PM EDT [facility] Chloride 104 96 - 110 mmol/L LAB CHEMISTRY METHOD 09/22/2024 2:14 PM EDT [facility] CO2 25 21 - 32 mmol/L LAB CHEMISTRY METHOD 09/22/2024 2:14 PM EDT [facility] Anion Gap 12(H) 3 - 11 LAB CHEMISTRY METHOD 09/22/2024 2:14 PM EDT [facility] Glucose 94 70 - 100 mg/dL LAB CHEMISTRY METHOD 09/22/2024 2:14 PM [facility] BUN 15 5 - 25 mg/dL LAB CHEMISTRY METHOD 09/22/2024 2:14 PM [facility] Creatinine 1.29(H) 0.50 - 1.10 mg/dL LAB CHEMISTRY METHOD 09/22/2024 2:14 PM [facility] eGFR 43(L) >=60 mL/min/1. 73m2 LAB CHEMISTRY METHOD 09/22/2024 2:14 PM [facility] Comment:Calculation based on the??Chronic Kidney Disease Epidemiology Collaboration (CKD-EPI) equation refit??without adjustment for race. BUN/Creatinine Ratio 11.6 LAB CHEMISTRY METHOD 09/22/2024 2:14 PM [facility] Calcium 9.7 8.5 - 10.5 mg/dL LAB CHEMISTRY METHOD 09/22/2024 2:14 PM [facility] AST (SGOT) 18 10 - 42 unit/L LAB CHEMISTRY METHOD 09/22/2024 2:14 PM [facility] ALT (SGPT) 21 10 - 60 unit/L LAB CHEMISTRY METHOD 09/22/2024 2:14 PM [facility] Alkaline Phosphatase 87 42 - 121 unit/L LAB CHEMISTRY METHOD 09/22/2024 2:14 PM [facility] Total Protein 7.3 6.0 - 8.0 g/dL LAB CHEMISTRY METHOD 09/22/2024 2:14 PM [facility] Albumin 3.6 3.2 - 5.0 g/dL LAB CHEMISTRY METHOD 09/22/2024 2:14 PM [facility] Total Bilirubin 0.3 0.0 - 1.4 mg/dL LAB CHEMISTRY METHOD 09/22/2024 2:14 PM [facility] Blood Venous blood specimen / Unknown Venipuncture / Unknown 09/22/2024 12:00 PM EDT 09/22/2024 1:35 PM EDT Tiffany Nava MD LAB BLOOD ORDERABLE S Final Result [facility] [address] [place] [address], [place] [phone] from Last 3 Months Insurance [address] [place] [id number] MEDICAID [place] [facility] MEDICAID [facility] MEDICARE Member Subscriber Plan / Payer (Ef fective 2014-Present) Name:Beatriz Herbert Relation to Subscriber:Self Name:Beatriz Herbert Payer ID:[id number] Group ID:[id number] Type:Not on file Address: [address] [place] [phone] Care Teams Hone Operator Relationship Specialty [place] [address] [place] [phone] PCP - General 06/05/23
--- OUTSIDE RECORDS SUMMARY | 2024-10-05 13:08 | XMS_ITS | Data Portability ---
Author Organization [facility] Address [address] [place] [address] Care Team Providers Care Die Cutter Operator Name Role Phone [facility] Primary Care Provider Assessment [...] /min 131 mm[Hg] 90 mm[Hg] Not Available [employer] - Direct Access Software 3 19:00:15 Social History None recorded. Functional Status None recorded. Mental Status None recorded. Family History Nothing Reported. Medical History No medical history recorded. Gynecological HistoryNo gynecological history recorded. Obstetrics History GPAL:G 0 P 0 0 0 0 Past Encounters Encounter ID Performer Location Encounter Start Date Encounter Closed Date Diagnosis/Indication Diagnosis SNOMED-CT Code Diagnosis ICD10 Code Diagnosis Note [id number] Jung Mace MD Main - [facility] [address] [place] [phone] 12/22/2022 19:00:13 12/24/2022 16:54:38 Lightheadedness [id number] R42 Dizziness/ weakness/l ightheadne ss in setting [...] Recorded Advance Directives Directive None Recorded Payers Insurance Date Sequence Insurance Name Policy Number Policy Graham Covered Member ID Graham Member ID Guarantor Name 12/29/2023 1 [facility] - DOS ON OR AFTER 2022 - DUAL ELIGIBLE - FDC OPTIONS AND ONE CARE (MEDICARE REPLACEMENT/ADV ANTAGE - HMO) Beatriz Herbert [id number] Beatriz Herbert Notes Date Note Type Note [...] ................... ................... ................... ................... ................... ................... ........ Marketing Co Op Note From Juan Parisi: Dispatched to above residence for the female patient with complaint of weakness, pain, shortness of breath as reported by youth career specialist. Upon arrival, pt found laying in bed in no obvious acute distress. Patient is kazakh speaking only and all information gathered comes from youth career specialist who is bilingual. Patient states to CG my left leg is swollen, hot, red, and i think i have a blood clot . During exam, there was no noted swelling, temp difference, or discoloration. Patient reports pain localized to the anterior of her fowler about mcc up. No noted trauma, pt denies any [...] any additional acute complaints at this time. [facility] [place] to discuss pt presentation, concerns, and clinical findings. At this time, [facility] [place] not order any additional interventions or [...] ................... ........ Disposition: Fulfilled Jung Mace MD [address] [place] [address],[address], [place], [phone], JAMES COTTO 12/22/2022 20:21:24 OBGyn Episode No OBEpisode recorded.
--- OUTSIDE RECORDS SUMMARY | 2024-10-05 13:08 | XMS_ITS | Clinical Summary ---
Author Organization [facility] Address [address] [place] [address] Care Team Providers Care Prestressed Concrete Laborer Name Role Phone Milan Mcgraw Primary Care Provider [phone] Allergies No known active allergies Medications Medication [...] age to complete this topic Care Teams Prestressed Concrete Laborer Relationship Specialty Start Date End Date Milan Mcgraw PA [address] [place] [phone] PCP - General Physician Javascript Engineer 06/05/23
--- OUTSIDE RECORDS SUMMARY | 2024-10-05 13:08 | XMS_ITS | Patient Health Record ---
Author Organization [facility] Address [address] [place] [address] Care Team Providers Care Restaurant Crew Person Name Role Phone Lesser (RETIRED) Salvatore LEMUS Primary Care Provide r Unavailable Chinedu Kat Unavailable [phone] Reason For Referral No Information Medications Medication [...] Problem Status W/U Status Risk Notes Problem [id number] Encounter for screening for malignant neoplasm of colon (Z12.11) Active confirmed Problem 714403552 Irritable bowel syndrome with diarrhea (K58.0) Active confirmed Problem 628022725 Gastroesophageal reflux disease without esophagitis (K21.9) Active confirmed Problem 456632040 Family history o f colon cancer (Z80.0) Active confirmed Plan Of Treatment Future Test Test Name Order Date UPPER GI ENDOSCOPY 11/02/2014 COLONOSCOPY 11/02/2014 COLONOSCOPY 11/25/2019 Insurance Providers Payer Name Payer Address Payer Phone Subscriber Number Group Number Insured Name Patient Relationship to Insured Coverage Start Date Coverage End Date [facility] [address] [place] [phone] [id number] ANA CRISTINA LOZANO Self - patient is the insured [facility] [address] [place] [id number] [phone] [id number] ANA CRISTINA LOZANO Self - patient is the insured Medical (General) History Medical History History ICD Code Breast cancer on the right w ith surgery as below; left breast with precancerous cells and had XRT only Denies [place],DM,CVA,renal disease Depression/Anxiety Asthma Back pain GERD--EGD in [...]
== END 2024-10-05 13:32 | disposition home or self-care (01) ==
LOC: HO.HPS 12:50
PROVIDERS: PCP Physician Assistant; Visit Provider Hospitalist
DX: I26.94 Multiple subsegmental thrombotic pulmonary emboli without acute cor pulmonale (principal); I82.402 Acute embolism and thrombosis of unspecified deep veins of left lower extremity; I27.20 Pulmonary hypertension, unspecified; J98.4 Other disorders of lung; Z90.13 Acquired absence of bilateral breasts and nipples; J45.41 Moderate persistent asthma with (acute) exacerbation; J40 Bronchitis, not specified as acute or chronic
CPT/HCPCS: 99214; G2211

== ENCOUNTER → 2024-10-05 12:50 | Outpatient (BNVA) | payer OTHER, SELFPAY | PROVIDERS: PCP Physician Assistant; Visit Provider Hospitalist | DX: I26.94 Multiple subsegmental thrombotic pulmonary emboli without acute cor pulmonale (principal); I82.402 Acute embolism and thrombosis of unspecified deep veins of left lower extremity; I27.20 Pulmonary hypertension, unspecified; J98.4 Other disorders of lung; J45.41 Moderate persistent asthma with (acute) exacerbation; J40 Bronchitis, not specified as acute or chronic; Z90.13 Acquired absence of bilateral breasts and nipples | CPT/HCPCS: 99212 ==

== ENCOUNTER 2024-10-09 16:00 | Outpatient (AMB) | payer OTHER, SELFPAY ==
--- OUTSIDE RECORDS SUMMARY | 2024-10-09 16:02 | XMS_ITS | Clinical Summary ---
Author Organization [facility] Address [address] [place] [phone] Phone Care Team Providers Care Keno Writer Name Role Phone [place] Mcgraw Primary Care [...] Description 09/22/2024 11:30 AM EDT Office Visit [facility] Hematology Oncology [address] [place] [phone] Tiffany Ayers MD Malignant neoplasm of overlapping [...] loss 07/22/2024 11:00 AM EST Office Visit [facility] Hematology Oncology [address] [place] [phone] Tiffany Ayers MD Malignant neoplasm of overlapping [...] History Date Comments Breast cancer [place] [place] [facility] [place]28[place] DX:Breast cancer ([facility]) Hypertension DX:Hypertension COPD (chronic obstructive pu lmonary disease) ([facility] [place], [facility] [place]28) DX:COPD (chronic o bstructive pulmonary disease) ([facility]) Family History Medical History Relation Name Comments [...] Description 11/23/2024 11:15 AM EDT Office Visit [facility] Hematology Oncology [address] [place] [address] Tiffany Nava MD [address] [place] [phone] Health Maintenance Due Date Last Done Comments [...] % LAB [facility] M[facility] 98.7(H) 79.0 - 98.0 FL LAB HEMETOLOGY METHOD [facility]24 [facility] MCH 31.7 27.0 - 32.0 pcg LAB HEMETOLOGY METHOD 09/22/2024 1:[address] [facility] MCHC 32.1 32.0 - 37.0 g/dL LAB HEMETOLOGY METHOD 09/22/2024 1:40 PM [facility] RDW 13.9 11.0 - 15.0 % LAB HEMETOLOGY METHOD 09/22/2024 1:40 PM [facility] Platelets 361 130 - 400 K/mcL LAB HEMETOLOGY METHOD [facility]/22[facility]2024 [facility] MPV 10.0 7.0 - 11.0 FL LAB HEMETOLOGY METHOD [facility]/22[facility]24 [facility] NRBC 0.0 <1.0 % LAB HEMETOLOGY METHOD 09/22/2024 1:40 PM [facility] NRBC Absolute 0.00 <0.10 K/mcL LAB HEMETOLOGY METHOD 09/22[facility]2024 [facility] Neutrophils Relative 54.8 % LAB HEMETOLOGY METHOD 09/22/2024 1:[address] [facility] Lymphocytes Relative 34.7 % LAB HEMETOLOGY METHOD 09/22[facility]2024 1[facility] Monocytes Relative 8.2 % LAB [...] Final Result [facility] [address] [place] [address], * Cancer antigen (09/22/2024 12:00 PM EDT) Only the most recent of2 resultswithin the time period is included. Pathologist [facility] [place] 27.29 31.0 <38.6 U/mL 09/25/2024 1:29 PM EDT [facility] Comment: The Siemens Advia THE EMPTY JOINTaur [id number] Chemiluminescent Immunoassay is used. Results obtained with different assay methods or kits cannot be used interchangeably. Results cannot be interpreted as absolute evidence of the presence or absence of malignant disease. Test performed at [facility], [address] , [place], [place] ??[address] ? [phone] Mary Albrecht MD, PhD - Chief Operating Engineer Blood Venous blood specimen / Unknown Venipuncture / Unknown 09/22/2024 12:00 PM EDT 09/22/2024 1:35 PM EDT Tiffany Nava MD LAB BLOOD ORDERABLE S Final Result [facility] [address] [place] [address] * (ABNORMAL) Comprehensive metabolic panel (09/22/2024 12:00 [...] mg/dL LAB CHEMISTRY METHOD 09/22/2024 2:14 PM [facility] BUN 15 5 - 25 mg/dL LAB CHEMISTRY METHOD 09/22/2024 2:14 PM [facility] Creatinine 1.29(H) 0.50 - 1.10 mg/dL LAB CHEMISTRY METHOD 09/22/2024 2:14 PM [facility] eGFR 43(L) >=60 mL/min/1. 73m2 LAB CHEMISTRY METHOD 09/22/2024 2:14 PM [facility] Comment:Calculation based on the??Chronic Kidney Disease Epidemiology Collaboration (CKD-EPI) equation refit??without adjustment for race. BUN/Creatinine Ratio 11.6 LAB CHEMISTRY METHOD 09/22/2024 2:14 PM [facility] Calcium 9.7 8.5 - 10.5 mg/dL LAB CHEMISTRY METHOD 09/22/2024 2:14 PM [facility] AST (SGOT) 18 10 - 42 unit/L LAB CHEMISTRY METHOD 09/22/2024 2:14 PM [facility] ALT (SGPT) 21 10 - 60 unit/L LAB CHEMISTRY METHOD 09/22/2024 2:14 PM [facility] Alkaline Phosphatase 87 42 - 121 unit/L LAB CHEMISTRY METHOD 09/22/2024 2:14 PM [facility] Total Protein 7.3 6.0 - 8.0 g/dL LAB CHEMISTRY METHOD 09/22/2024 2:14 PM [facility] Albumin 3.6 3.2 - 5.0 g/dL LAB CHEMISTRY METHOD 09/22/2024 2:14 PM [facility] Total Bilirubin 0.3 0.0 - 1.4 mg/dL LAB CHEMISTRY METHOD 09/22/2024 2:14 PM [facility] Blood Venous blood specimen / Unknown Venipuncture / Unknown 09/22/2024 12:00 PM EDT 09/22/2024 1:35 PM EDT Tiffany Nava MD LAB BLOOD ORDERABLE S Final Result [facility] [address] [place] [address], [place] [phone] from Last 3 Months Insurance [address] [place] [id number] [place]ICA[place] - [place] [facility] MEDICAID [facility] MEDICARE Member Subscriber Plan / Payer (Ef fective 2014-Present) Name:Beatriz Herbert Relation to Subscriber:Self Name:Beatriz Herbert Payer ID:[id number] Group ID:[id number] Type:Not on file Address: [address] [place] [address] Care Teams Keno Writer Relationship Specialty [place] [address] [place] [phone] PCP - General 06/05/23
--- OUTSIDE RECORDS SUMMARY | 2024-10-09 16:03 | XMS_ITS | Patient Health Record ---
Author Organization [facility] Address [address] [place] [address] Care Team Providers Care Patient Safety Coordinator Name Role Phone Lesser (RETIRED) Salvatore LEMUS Primary Care Provide r Unavailable Chinedu Kat Unavailable [phone] Reason For Referral No Information Medications Medication [...] Problem Status W/U Status Risk Notes Problem [id number] Encounter for screening for malignant neoplasm of colon (Z12.11) Active confirmed Problem 339063668 Irritable bowel syndrome with diarrhea (K58.0) Active confirmed Problem 111650499 Gastroesophageal reflux disease without esophagitis (K21.9) Active confirmed Problem 429516601 Family history o f colon cancer (Z80.0) Active confirmed Plan Of Treatment Future Test Test Name Order Date UPPER GI ENDOSCOPY 11/02/2014 COLONOSCOPY 11/02/2014 COLONOSCOPY 11/25/2019 Insurance Providers Payer Name Payer Address Payer Phone Subscriber Number Group Number Insured Name Patient Relationship to Insured Coverage Start Date Coverage End Date [facility] [address] [place] [address] [id number] ANA CRISTINA LOZANO Self - patient is the insured [facility] [address] [place] [phone] [id number] ANA CRISTINA LOZANO Self - patient is the insured Medical (General) History Medical History History ICD Code Breast cancer on the right w ith surgery as below; left breast with precancerous cells and had XRT only Denies [place],DM,CVA,renal disease Depression/Anxiety Asthma Back pain GERD--EGD in [...]
--- OUTSIDE RECORDS SUMMARY | 2024-10-09 16:03 | XMS_ITS | Data Portability ---
Author Organization [place] [place] [facility] [employer] Address [address] [place] [address] Care Team Providers Care Director Quality Systems Name Role Phone [facility] Primary Care Provider Assessment [...] /min 131 mm[Hg] 90 mm[Hg] Not Available [facility] 3 19:00:15 Social History None recorded. Functional Status None recorded. Mental Status None recorded. Family History Nothing Reported. Medical History No medical history recorded. Gynecological HistoryNo gynecological history recorded. Obstetrics History GPAL:G 0 P 0 0 0 0 Past Encounters Encounter ID Performer Location Encounter Start Date Encounter Closed Date Diagnosis/Indication Diagnosis SNOMED-CT Code Diagnosis ICD10 Code Diagnosis Note [id number] Jung Mace MD Main - [facility] [address] [place] [address] 12/22/2022 19:00:13 12/24/2022 16:54:38 Lightheadedness [id number] R42 Dizziness/ weakness/l ightheadne ss in setting [...] Graham Member ID Guarantor Name 12/29/2023 1 [facility] - DOS ON OR AFTER 2022 - DUAL ELIGIBLE - GROUP HOME OPTIONS AND ONE CARE (MEDICARE REPLACEMENT/ADV ANTAGE - HMO) Beatriz Herbert [id number] Beatriz Herbert Notes Date Note Type Note Provider Name and Address Organization Details Recorded Time 12/22/2022 text/html CRC Nursing Assessment: Chief Complaints: Syncope/Dizziness/L ightheadedness Allergies: Unknown Comments: CG reports the member is feeling unwell and anxious - Dizziness and SOB - CG is concerned she may have been having a panic attack. Denies fever/chills - Member is speaking full sentences. Wesley RICIC ................... ................... ................... ................... ................... ................... ................... ........ Insurance Instructor Note From Juan Parisi: Dispatched to above residence for the female patient with complaint of weakness, pain, shortness of breath as reported by behavioral health care manager. Upon arrival, pt found laying in bed in no obvious acute distress. Patient is mohawk speaking only and all information gathered comes from behavioral health care manager who is bilingual. Patient states to CG [...] any additional acute complaints at this time. [facility] contacted to discuss pt presentation, concerns, and clinical findings. At this time, [facility] does not order any additional interventions or [...] ................... ........ Disposition: Fulfilled Jung Mace MD [address] [place] [address],[address], [place], [address], JAMES COTTO 12/22/2022 20:21:24 OBGyn Episode No OBEpisode recorded.
--- OUTSIDE RECORDS SUMMARY | 2024-10-09 16:03 | XMS_ITS | Clinical Summary ---
Author Organization [facility] Address [address] [place] [address] Care Team Providers Care Residential Tech Name Role Phone [place] Mcgraw Primary Care Provider [phone] Allergies No known active allergies Medications Medication [...] from 02/19/2022:Stage IA(pT1c, pN1, cM0, G2, ER+, IN+, HER2-) - Signed by Tiffany Villavicencio MD [...] age to complete this topic Care Teams Residential Tech Relationship Specialty Start Date End Date [place] [address] [place] [phone] PCP - General Physician Dryer And Washer Mechanic 06/05/23
[2024-10-09 16:08] VITALS: BP 128/70; PULSE 81; O2SAT 98; BMI 34.5
--- NOTE | 2024-10-09 16:08 | A.OFFPC_ITS ---
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: No Accompanied by: Daughter Allergies No Known Allergies [No Known Allergies*] Allergy (Verified 10/09/24 16:09) Tobacco use date assessed: 10/09/24 Fall risk assessment: 2 + Falls in past year Last assessed Fall Risk: 10/09/24 Dental Screening Dental Screen Date: 10/09/24 Did you have a dental visit in the last 12 months?: No Did you have a dental problem in the last 6 months where you did not have access to dental care?: No Was dental information given to patient?: No HPI TCM TCM Information Date of Discharge 09/30/24 Discharged From [facility] Interactive Contact Date (Reference documentation from this date) 10/01/24 HPI Comments History of Present Illness Details 74 y/o Female patient who presents to [facility] for HDF. 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 She is accompanied by Grand-daughters today. She was admitted at [facility] on 09/28 - 09/30 for evaluation and treatment of unwitnessed fall complicated by acute rhabdomyolysis. Statins were discontinued at this time. 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 Depression Arthritis IBS (irritable bowel syndrome) GERD (gastroesophageal reflux disease) Recurrent malignant neoplasm of right breast HTN (hypertension) Traumatic complete tear of right rotator cuff Surgical History Hx of excision of mass (08/14/23) History of excision of lesion (05/30/23) S/P bilateral mastectomy History of bilateral mastectomy (02/19/22) Hx of cholecystectomy Hx of appendectomy Hx of blepharoplasty History of esophagogastroduodenoscopy (EGD) History of lumpectomy of both breasts History of surgery History of colonoscopy S/P ANDRÉS-BSO (total abdominal hysterectomy and bilateral salpingo-oophorectomy) History of lumbar fusion Family History Father Heart problem Mother Heart disease Hypertension Colon cancer Epilepsy Maternal Grandmother Esophageal cancer Daughter Breast cancer Brother Lung cancer Sister Breast cancer Sister Breast cancer, Onset Age: 60 Sister COVID Daughter Acute kidney failure Social History Household Members: None Housing: Apartment Are you a primary technical healthcare consultant to a significant other at home: No Do you presently have visiting nurse or other home services: No Alcohol intake: never Comment: counts correct Patient Tobacco Use Status: Never used Tobacco e-Cigarette/Vaping Use: Never Used Second Hand Smoke Exposure: No Advance Directives Date on File: 06/13/23 service: No Current occupational status: disabled 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) Hearing needs: No Vision needs: Yes Female Reproductive History Menstrual Age of Menarche: 9 Questionnaire PHQ-9 Over the last 2 weeks, how often have you been bothered by any of the following problems? 1. Little interest or pleasure in doing things: nearly every day 2. Feeling down, depressed, or hopeless: nearly every day 3. Trouble falling or staying asleep, or sleeping too much: nearly every day 4. Feeling tired or having little energy: nearly every day 5. Poor appetite or overeating: nearly every day 6. Feeling bad about yourself - or that you are a failure or have let yourself or your family down: nearly every day 7. Trouble concentrating on things, such as reading the newspaper or watching television: nearly every day 8. Moving or speaking so slowly that other people could have noticed. Or the opposite - being so fidgety or restless that you have been moving around a lot more than usual: nearly every day 9. Thoughts that you would be better off or of hurting yourself in some way: not at all Total score: 24 Depression Screening Interpretation: Positive Depression Screening Follow-up: Existing condition and Declines treatment Depression Screening Done: Yes Source: Developed by Drs. Chinedu Romero, Rosemarie Ballard, Mina Lanier and colleagues, with an educational luis fernando from [employer]. Thrive Questionnaire Date Thrive assessed: 10/09/24 I am a: Patient What is your living situation today?: I have a steady place to live Within the past 12 months, did the food you bought not last and you didn't have the money to get more?: Never true Within the past 12 months, did you worry whether your food would run out before you got money to buy more?: Never true Do you have trouble paying for medicines?: No Do you have trouble getting transportation to medical appointments?: No Do you have trouble paying your heating and electricity bill?: No Do you have trouble taking care of your child, family member or friend?: No Do you have trouble with day-to-day activities such as bathing, preparing meals, shopping, managing finances, etc.?: No Are you currently unemployed and looking for a job?: No Are you interested in more education?: No Please select the resources that you would like help with: None Currently or been in a relationship where the following occur: No concerns rep orted THRIVE Score: 0 AUDIT C Alcohol Use Questionnaire (AUDIT-C) 1. How often do you have a drink containing alcohol?: Monthly or less 2. How many drinks containing alcohol do you have on a typical day when you are drinking?: 1 or 2 3. How often do you have six or more drinks on one occasion?: Never Total Score: 1 OLAYINKA-7 AMB Questionnaire OLAYINKA-7 Date OLAYINKA - 7 assessed: 10/09/24 Feeling nervous, anxious, or on edge: 0 = Not at all Not being able to stop or control worryin = Not at all Worrying too much about different things: 0 = Not at all Trouble relaxin = Not at all Being so restless that it is hard to sit still: 0 = Not at all Becoming easily annoyed or irritable: 0 = Not at all Feeling afraid as if something awful might happen: 0 = Not at all Total OLAYINKA-7 score (0-4 normal; 5-9 mild; 10-14 moderate; 15-21 severe): 0 Source: Developed by Rosemarie Anthony, Mina Lanier and colleagues, with an educational luis fernando from [employer]. Review of Systems Const All systems reviewed & are unremarkable except as noted in HPI and below Physical exam (Primary Care) Vital Signs: Last Vital Signs Pulse 81 10/09/24 16:08 BP 128/70 10/09/24 16:08 Pulse Ox 98 10/09/24 16:08 Oxygen Delivery Method Room Air 10/09/24 16:08 BMI result Body Mass Index 34.5 Tobacco/Smoking Status: Tobacco use Status Tobacco use date assessed 10/09/24 10/09/24 16:17 Patient Tobacco Use Status Never used Tobacco 10/09/24 16:08 e-Cigarette/Vaping Use Never Used 10/09/24 16:08 PHQ-9: PHQ-9 Score PHQ-9: Total score 24 10/09/24 16:21 Depression Screening Interpretation: Positive Depression Screening Follow-up: Existing condition and Declines treatment Thrive Assessment: Date of Thrive Assessment Date Thrive assessed 10/09/24 10/09/24 16:17 Currently or been in a relationship where the following occur: No concerns reported Const General: no acute distress Nutritional Appearance: obese Limitations: ambulation with walker Resp Effort & Inspection: normal respiratory effort Auscultation: clear to auscultation bilaterally Cardio Heart sounds: S1 normal heart sound present and S2 normal heart sound present Coding Level of Care Code TCM Mod MDM <= 14 Days Diagnoses Non-traumatic rhabdomyolysis M62.82 Rhabdomyolysis type: non-traumatic Time Spent (min) 20 Assessment & Plan Assessment & Plan (1) Rhabdomyolysis: Code(s): M62.82 - Rhabdomyolysis Category: Medical Qualifiers: Rhabdomyolysis type: non-traumatic Qualified Code(s): M62.82 - Rhabdomyolysis Plan: Resolved. Statins were Dc'd at this time. Advised Lifestyle changes; healthy food choices, weight loss and daily exercise. F/U in 2 weeks with PCP as scheduled to discuss Cholesterol management.
== END 2024-10-09 16:49 | disposition home or self-care (01) ==
LOC: HO.HMCH 16:01
PROVIDERS: PCP Physician Assistant; Visit Provider Nurse Practitioner Family
DX: M62.82 Rhabdomyolysis (principal)

== ENCOUNTER → 2024-10-09 16:00 | Outpatient (BNVA) | payer OTHER, SELFPAY | PROVIDERS: PCP Physician Assistant; Visit Provider Nurse Practitioner Family | DX: M62.82 Rhabdomyolysis (principal); F03.90 Unspecified dementia, unspecified severity, without behavioral disturbance, psychotic disturbance, mood disturbance, and anxiety; I25.10 Atherosclerotic heart disease of native coronary artery without angina pectoris; G47.33 Obstructive sleep apnea (adult) (pediatric); E78.5 Hyperlipidemia, unspecified; I27.20 Pulmonary hypertension, unspecified; F32.A Depression, unspecified; J45.909 Unspecified asthma, uncomplicated; Z91.81 History of falling; Z86.711 Personal history of pulmonary embolism; Z86.718 Personal history of other venous thrombosis and embolism; Z79.01 Long term (current) use of anticoagulants | CPT/HCPCS: 96127; 99212 ==

== ENCOUNTER → 2024-10-12 23:59 | Outpatient (BNV) | payer OTHER, SELFPAY | PROVIDERS: PCP Physician Assistant; Visit Provider Physician Assistant | DX: F32.A Depression, unspecified (principal); F41.9 Anxiety disorder, unspecified; E11.9 Type 2 diabetes mellitus without complications; I10 Essential (primary) hypertension | CPT/HCPCS: G0180 ==

== ENCOUNTER 2024-10-27 11:20 | Outpatient (AMB) | payer OTHER, SELFPAY ==
--- NOTE | 2024-10-27 11:33 | A.OFFPC_ITS ---
Vital Signs 10/27/24 11:35 Height 4 ft 11 in Weight 168 lb 4 oz BMI 34.0 BP 130/72 Blood Pressure Location Lt femoral Position Sitting Pulse 77 Pulse Source Pulse Oximeter Temp 97.1 F Temp Source Temporal Artery Scan Pulse Oximetry (%) 96 Oxygen Delivery Method Room Air Intake Visit Reasons: f/u pain management Intake Note: Patient is here to follow up on Pain management. Construction Helper Required: Yes Construction Helper Language: Informatics Educator Name: Cornelia (daughter) Information Interpreted: non-clinical & clinical (Pt decline stay cutter service prefer daughter to translate for her) Topology Professor: Present Accompanied by: Daughter Allergies No Known Allergies [No Known Allergies*] Allergy (Verified 10/27/24 12:03) Medication List - Last Reconciled 10/27/24 by Milan Mcgraw PA-C abemaciclib (Verzenio) 100 mg PO DAILY acetaminophen 325 mg PO Q6H PRN 30 days albuterol sulfate 2.5 mg (3 mL) inhalation Q6H PRN 30 days amitriptyline 10 mg PO BEDTIME 90 days amoxicillin-pot clavulanate 875-125 mg 1 tab PO BID 10 days apixaban (Eliquis) 5 mg PO BID 90 days blood sugar diagnostic (FreeStyle Lite Strips) As directed blood-glucose meter (FreeStyle Lite Meter kit) As directed budesonide-formoterol 80-4.5 mcg/actuation (Symbicort) 2 puffs inhalation BID 30 days chair, wheel (Wheel chair) Need for transfer wheelchair chair, wheel (Wheel chair) As directed cholecalciferol (vitamin D3) (Vitamin D3) 50 mcg PO DAILY cyclobenzaprine 10 mg PO TID PRN dextromethorphan-guaifenesin 30-600 mg (Mucinex DM) 1 tab PO Q12H 14 days diaper,brief,adult,disposable (Protective Underwear Ex-Large) 2xl size Briefs. diclofenac sodium 1% 2 grams topical BID PRN dicyclomine 20 mg (2 x 10 mg) PO QID 30 days donepezil 5 mg PO DAILY 30 days escitalopram oxalate 5 mg PO DAILY PRN fluticasone furoate-vilanterol 200-25 mcg/dose (Breo Ellipta) 1 inh inhalation DAILY 30 days furosemide (Lasix) 20 mg PO DAILY PRN gabapentin 800 mg PO TID 90 days glimepiride 1 mg PO DAILY glyburide 1.25 mg PO DAILY ibuprofen 800 mg PO Q6H PRN incontinence pad, liner, disp As directed lancets (FreeStyle Lancets) As directed letrozole 2.5 mg PO DAILY memantine 28 mg PO DAILY 30 days metoprolol tartrate 50 mg PO BID mirtazapine (Remeron) 15 mg PO BEDTIME 30 days miscellaneous medical supply (Blood Pressure Cuff) As directed nebulizers (AeroEclipse II Nebulizer) As directed nebulizers As directed oxycodone 15 mg PO Q8H 28 days prednisone PO daily; Take 2 tabs daily x 5 days, then 1 tablet daily x 5 days 10 days semaglutide (Ozempic) 0.5 mg (0.736 mL) subcut TH 4 weeks trazodone 200 mg (2 x 100 mg) PO BEDTIME 90 days Tobacco use date assessed: 10/27/24 Fall risk assessment: No Falls in past year Last assessed Fall Risk: 10/27/24 Dental Screening Dental Screen Date: 10/09/24 HPI f/u pain management HPI Details Patient is a 74-year-old female here today for follow-up visit. Today she presents with her daughter whom gives most of the history.. Patient's past medical history significant for type 2 diabetes, chronic lumbar spine pain, history of breast cancer and is status post bilateral total mastectomy, DVT and bilateral pulmonary embolism(now on Eliquis) major depressive disorder, mild cognitive impairment. Patient recently admitted to hospital for acute rhabdomyolysis event. She was reportedly on the floor for 6-8 hours. While in the hospital she was treated with IV fluids. Her statin therapy was apparently stopped though has been on statin therapy for quite awhile without rhabdo events. --Concern> patient reports right hand an d wrist pain over the last few weeks. She reports the pain is at times intolerable she has upcoming appointment with a frame fixer at the Orthopedics practice. .. DMII: Patient's type 2 diabetes fairly controlled on current dose of metformin. A1c appropriate today at 6.3. Will hold off on her glyburide due to fears of pancreatic burnout.. She continues on Ozempic 0.5 mg. She is interested in increasing her dose to 1 mg Ozempic lately for more weight loss and glycemic control. . . Breast cancer: Is status post bilateral total mastectomy, recently had cyst biopsy which did show recurrent carcinoma. She continues on pain management with oxycodone 15 mg t.i.d. for cancer related pain. She is followed by Oncology at [facility] [place]. She has had a bone scan that did not show any metastatic disease. She continues to be treated by [facility] [place] Oncology Unfortunately patient reports continued pain in her mastectomy sites along with continued lower lumbar spine and cervical spine pain. 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 Depression Arthritis IBS (irritable bowel syndrome) GERD (gastroesophageal reflux disease) Recurrent malignant neoplasm of right breast HTN (hypertension) Traumatic complete tear of right rotator cuff Surgical History Hx of excision of mass (08/14/23) History of excision of lesion (05/30/23) S/P bilateral mastectomy History of bilateral mastectomy (02/19/22) Hx of cholecystectomy Hx of appendectomy Hx of blepharoplasty History of esophagogastroduodenoscopy (EGD) History of lumpectomy of both breasts History of surgery History of colonoscopy S/P ANDRÉS-BSO (total abdominal hysterectomy and bilateral salpingo-oophorectomy) History of lumbar fusion Family History Father Heart problem Mother Heart disease Hypertension Colon cancer Epilepsy Maternal Grandmother Esophageal cancer Daughter Breast cancer Brother Lung cancer Sister Breast cancer Sister Breast cancer, Onset Age: 60 Sister COVID Daughter Acute kidney failure Social History Household Members: None Housing: Apartment Are you a primary healthcare project manager to a significant other at home: No Do you presently have visiting nurse or other home services: No Alcohol intake: never Comment: counts correct Patient Tobacco Use Status: Never used Tobacco e-Cigarette/Vaping Use: Never Used Second Hand Smoke Exposure: No Advance Directives Date on File: 06/13/23 service: No Current occupational status: disabled 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) Hearing needs: No Vision needs: Yes Female Reproductive History Menstrual Age of Menarche: 9 Questionnaire PHQ-9 Over the last 2 weeks, how often have you been bothered by any of the following problems? 1. Little interest or pleasure in doing things: more than half the days 2. Feeling down, depressed, or hopeless: more than half the days 3. Trouble falling or staying asleep, or sleeping too much: more than half the days 4. Feeling tired or having little energy: nearly every day 5. Poor appetite or overeating: nearly every day 6. Feeling bad about yourself - or that you are a failure or have let yourself or your family down: several days 7. Trouble concentrating on things, such as reading the newspaper or watching t elevision: several days 8. Moving or speaking so slowly that other people could have noticed. Or the opposite - being so fidgety or restless that you have been moving around a lot more than usual: several days 9. Thoughts that you would be better off or of hurting yourself in some way: not at all Total score: 15 Depression Screening Interpretation: Positive Depression Screening Follow-up: Existing condition Depression Screening Done: Yes 73526 - PHQ-9 Billing: Yes Source: Developed by Drs. Chinedu Romero, Rosemarie Ballard, Mina Lanier and colleagues, with an educational luis fernando from [employer]. Thrive Questionnaire Date Thrive assessed: 10/09/24 I am a: Patient What is your living situation today?: I have a steady place to live Within the past 12 months, did the food you bought not last and you didn't have the money to get more?: Sometimes True Within the past 12 months, did you worry whether your food would run out before you got money to buy more?: Sometimes True Do you have trouble paying for medicines?: No Do you have trouble getting transportation to medical appointments?: No Do you have trouble paying your heating and electricity bill?: No Do you have trouble taking care of your child, family member or friend?: No Do you have trouble with day-to-day activities such as bathing, preparing meals, shopping, managing finances, etc.?: No Are you currently unemployed and looking for a job?: No Are you interested in more education?: No Please select the resources that you would like help with: None Currently or been in a relationship where the following occur: No concerns reported THRIVE Score: 2 AUDIT C Alcohol Use Questionnaire (AUDIT-C) 1. How often do you have a drink containing alcohol?: Never Total Score: 0 OLAYINKA-7 AMB Questionnaire OLAYINKA-7 Date OLAYINKA - 7 assessed: 10/27/24 Feeling nervous, anxious, or on edge: 2 = More than half the days Not being able to stop or control worryin = More than half the days Worrying too much about different things: 2 = More than half the days Trouble relaxin = More than half the days Being so restless that it is hard to sit still: 1 = Several days Becoming easily annoyed or irritable: 3 = Nearly every day Feeling afraid as if something awful might happen: 2 = More than half the days Total OLAYINKA-7 score (0-4 normal; 5-9 mild; 10-14 moderate; 15-21 severe): 14 Source: Developed by Drs. Chinedu Romero, Rosemarie Ballard, Mina Lanier and colleagues, with an educational luis fernando from [employer]. OLAYINKA-7 Assessment Billing OLAYINKA-7 Assessment Tool: OLAYINKA-7 Assessment 68273 Review of Systems Const Denies headache(s) Eyes Denies loss of vision ENT Denies vertigo, Denies dizziness, Denies headache(s) and Denies sore throat Card Denies chest pain, Denies leg edema and Denies lightheadedness Resp Denies cough, Denies hemoptysis and Denies wheezing GI Denies abdominal pain, Denies melena, Denies constipation, Denies diarrhea and Denies vomiting Denies urinary frequency, Denies dysuria and Denies urinary urgency Musc Denies arthralgias, Denies joint swelling, Denies numbness and Denies tingling Neuro Denies Abnormal speech present, Denies behavioral changes, Denies vertigo, Denies dizziness, Denies headache(s), Denies loss of vision, Denies memory loss, Denies numbness and Denies tingling Psych Denies anxiety, Denies behavioral changes, Denies depression, Denies memory loss and Denies panic attacks Neo/Lymph Denies easy bleeding and Denies easy bruising Aller/Immun Denies wheezing Physical exam (Primary Care) Vital Signs: Last Vital Signs Temp 97.1 F 10/27/24 11:35 Pulse 77 10/27/24 11:35 BP 130/72 10/27/24 11:35 Pulse Ox 96 10/27/24 11:35 Oxygen Delivery Method Room Air 10/27/24 11:35 BMI result Body Mass Index 34.0 Tobacco/Smoking Status: Tobacco use Status Tobacco use date assessed 10/27/24 10/27/24 11:50 Patient Tobacco Use Status Never used Tobacco 10/27/24 11:50 e-Cigarette/Vaping Use Never Used 10/27/24 11:50 PHQ-9: PHQ-9 Score PHQ-9: Total score 15 10/27/24 12:04 Depression Screening Interpretation: Positive Depression Screening Follow-up: Existing condition Thrive Assessment: Date of Thrive Assessment Date Thrive assessed 10/09/24 10/27/24 11:50 Currently or been in a relationship where the following occur: No concerns reported Const General: healthy appearing, no acute distress, alert and awake Nutritional Appearance: well nourished Orientation/consciousness: oriented to person, oriented to place and oriented to time HENMT Ears: TM's normal bilaterally General nose exam: Normal nasal mucous membranes and turbinates present Eyes Conjunctivae: conjunctivae normal Sclerae: sclerae normal Pupils: Equal, round and reactive pupils present Neck Neck: Yes no lymphadenopathy and Yes no JVD Thyroid: Thyroid normal Carotids: no bruits Resp Effort & Inspection: normal respiratory effort and not tachypneic Auscultation: no crackles, no rales, no rhonchi and no wheezes Cardio Rate: regular rate Rhythm: regular rhythm Heart sounds: no murmurs and normal S1 and S2 GI Palpation (GI): Soft to palpation, nontender, no hepatomegaly and no splenomegaly Auscultation: normal bowel sounds Skin General skin exam: no rashes or lesions noted and dry skin Neuro General: oriented to person, oriented to place and oriented to time Cranial nerves: Yes Equal, round and reactive pupils present Speech: No Abnormal speech present Gait exam (Neuro): Normal gait present Motor exam (neuro): no tremor noted Extrem Right upper extremity: full ROM Left upper extremity: full ROM Right lower extremity: full ROM; no edema Left lower extremity: full ROM; no edema Psych Mental Status: mental status grossly normal Speech and movement: Normal speech and movement present Affect: normal affect Attitude: cooperative Thought process: Normal thought process present Results AMB Hemoglobin A1c AMB Hemoglobin A1c 6.2 % Last Edit by ROC Mccord on 10/27/24 12:05 Results Reviewed Results Reviewed: Laboratory Last Values Hgb A1c (Clinic) 6.2 % (4.0-6.0) H 10/27/24 11:32 Coding Level of Care Code Est Pt Level 4 (20689) Diagnoses Type 2 diabetes mellitus with hyperglycemia, without long-term current use of insulin E11.65 Diabetes mellitus complication status: with hyperglycemia Diabetes mellitus termite inspector insulin use: without termite inspector use Essential hypertension I10 Hypertension type: essential hypertension Recurrent malignant neoplasm of right breast C50.911 Acute deep vein thrombosis (DVT) of left lower extremity, unspecified vein I82.402 Affected thrombotic vein of extremity: unspecified vein of extremity Chronicity: acute DVT location: lower extremity Laterality: left Uncomplicated opioid dependence F11.20 Substance use status: uncomplicated Mixed hyperlipidemia E78.2 Hyperlipidemia type: mixed hyperlipidemia Additional Codes PHQ-9 - 66098 - PHQ-9 Billing: Yes ([id number]) OLAYINKA-7 Assessment Billing - OLAYINKA-7 Assessment Tool: OLAYINKA-7 Assessment 79291 ([id number]) Assessment & Plan Assessment & Plan (1) DMII (diabetes mellitus, type 2): Code(s): E11.9 - Type 2 diabetes mellitus without complications Category: Medical Qualifiers: Diabetes mellitus complication status: with hyperglycemia Diabetes mellitus termite inspector insulin use: without fci use Qualified Code(s): E11.65 - Type 2 diabetes mellitus with hyperglycemia Plan: Patient's type 2 diabetes well controlled. Will increase her Ozempic for better glycemic control him added benefit of weight loss. Hold offered her glipizide due to fears of pancreatic burnout. . Will continue her current dose of antihyperglycemic medication with goal A1c to remain below 7.0 (2) HTN (hypertension): Code(s): I10 - Essential (primary) hypertension Category: Medical Qualifiers: Hypertension type: essential hypertension Qualified Code(s): I10 - Essential (primary) hypertension Plan: Patient's blood pressure acceptable today in office. Will continue her current dose of antihypertensive medication with goal blood pressure to be below 140 over 90. (3) Recurrent malignant neoplasm of right breast: Code(s): C50.911 - Malignant neoplasm of unspecified site of right female breast Category: Medical Plan: Patient followed by Oncology with no recent reoccurrence of her breast neoplasm. Had a bone scan in November of 2023 that did not show any metastatic disease. Patient does use oxycodone 15 mg Q 8 hours for her cancer related breast pain and lower back pain (4) DVT (deep venous thrombosis): Code(s): I82.409 - Acute embolism and thrombosis of unspecified deep veins of unspecified lower extremity Category: Medical Qualifiers: Affected thrombotic vein of extremity: unspecified vein of extremity Chronicity: acute DVT location: lower extremity Laterality: left Qualified Code(s): I82.402 - Acute embolism and thrombosis of unspecified deep veins of left lower extremity Plan: Patient has a history of DVT pulmonary embolism in the setting of malignancy. Continues on anticoagulation with Eliquis without any overt signs of bleeding. Continues to have her recurrent breast cancer managed by Oncology at [facility] [place] . (5) Opiate dependence: Code(s): F11.20 - Opioid dependence, uncomplicated Category: Medical Qualifiers: Substance use status: uncomplicated Qualified Code(s): F11.20 - Opioid dependence, uncomplicated Plan: Patient continues on a fairly moderate dose of oxycodone for cancer related pain though was on pain medication previously. She does have opiate dependency. (6) HLD (hyperlipidemia): Code(s): E78.5 - Hyperlipidemia, unspecified Category: Medical Qualifiers: Hyperlipidemia type: mixed hyperlipidemia Qualified Code(s): E78.2 - Mixed hyperlipidemia Plan: Patient has been statin therapy for many many years, has recently been taken off due to a acute episode rhabdomyolysis likely secondary to being on the floor over 8 hours. Will restart a low potency statin to help reduce her cardiovascular risk and continue to follow liver functions. Goal LDL to be below 100 Orders: Orders Complete Blood Count no Diff Today E11.65 - Type 2 diabetes mellitus with hyperglycemia Comprehensive Protem. Panel Fast Today E11.65 - Type 2 diabetes mellitus with hyperglycemia Lipid Panel Today E78.5 - Hyperlipidemia, unspecified AMB Hemoglobin A1c Today E11.65 - Type 2 diabetes mellitus with hyperglycemia Medications: New semaglutide (Ozempic) 1 mg (0.75 mL) subcut QWEEK 3 mL 3RF 4 weeks E11.65 - Type 2 diabetes mellitus with hyperglycemia simvastatin 10 mg PO DAILY 90 tabs 1RF 90 days E78.5 - Hyperlipidemia, unspecified Discontinued glimepiride Discontinued Reason: Doctor's Order 1 mg PO DAILY 90 tabs 1RF E11.65 - Type 2 diabetes mellitus with hyperglycemia On Hold semaglutide (Ozempic) Hold Comment: Doctor's Order 0.5 mg (0.736 mL) subcut TH 4 weeks 3 mL 3RF E11.65 - Type 2 diabetes mellitus with hyperglycemia
[2024-10-27 11:35] VITALS: BP 130/72; PULSE 77; TEMP 36.2; O2SAT 96; BMI 34.0
--- OUTSIDE RECORDS SUMMARY | 2024-10-27 13:02 | XMS_ITS | Clinical Summary ---
Author Organization [facility] Address [address] [place] [phone] Phone Care Team Providers Care Construction Trades Teacher Name Role Phone Milan Mcgraw Primary Care [...] TABLETS BY MOUTH AT BEDTIME 05/13/2023 Active abemaciclib (VERZENIO) 100 mg tablet Take 100 mg by mouth daily 30 tablet 5 07/22/2024 Active letrozole (FEMARA) 2.5 mg tablet Take 1 tablet (2.5 mg total) by mouth 1 (one) time each day Take with or without food.Take 1 tablet (2.5 mg total) by mouth daily for 30 days 90 tablet 3 09/22/2024 Active Active Problems Problem Noted Date Diagnosed [...] Description 09/22/2024 11:30 AM EDT Office Visit [facility] Hematology Oncology [address] [place] [address] Tiffany Ayers MD Malignant neoplasm [...] deficiency; Osteopenia of multiple sites; Weight loss from Last 3 Months Surgical History Surgery Date Site/Laterality Comments MASTECTOMY PROCEDURE:MASTECTOMY APPENDECTOMY PROCEDURE:APPENDECTOMY CHOLECYSTECTOMY PROCEDURE:CHOLECYSTECTOMY COLONOSCOPY PROCEDURE:COLONOSCOPY Medical History Medical History Date Comments Breast cancer (CMS/HCC V24, CMS/HCC V28) DX:Breast cancer (HCC) Hypertension DX:Hypertension COPD (chronic obstructive pu lmonary disease) (CMS/HCC V24, CMS/HCC V28) DX:COPD (chronic o bstructive pulmonary disease) (HCC) Family History Medical History [...] Description 11/23/2024 11:15 AM EDT Office Visit [facility] Hematology Oncology [address] [place] [address] Tiffany Nava MD [address] [place] [id number] Health Maintenance Due Date Last Done Comments [...] CBC auto differential (09/22/2024 12:00 PM EDT) WBC 6.1 4.8 - 10.8 K/mcL LAB HEMETOLOGY METHOD 09/22/2024 1:40 PM EDT [facility] RBC 3.90 3.80 - 4.80 M/mcL LAB HEMETOLOGY METHOD 09/22/2024 1:40 PM EDT [facility] Hemoglobin 12.3 11.5 - 16.0 g/dL LAB HEMETOLOGY METHOD 09/22/2024 1:40 PM EDT [facility] Hematocrit 38.3 35.0 - 47.0 % [facility] MCV 98.7(H) 79.0 - 98.0 FL LAB HEMETOLOGY METHOD 09/22/2024 1:40 PM EDT [facility] MCH 31.7 27.0 - 32.0 pcg LAB HEMETOLOGY METHOD [facility] MCHC 32.1 32.0 - 37.0 g/dL LAB HEMETOLOGY METHOD 09/22[facility]24 [facility] RDW 13.9 11.0 - 15.0 % LAB HEMETOLOGY METHOD [facility] Platelets 361 130 - 400 K/mcL LAB HEMETOLOGY METHOD 09/22[facility]24 [facility] MPV 10.0 7.0 - 11.0 FL LAB HEMETOLOGY METHOD [facility] NRBC 0.0 <1.0 % LAB HEMETOLOGY METHOD 09/22/2024 1:40 PM EDT [facility] NRBC Absolute 0.00 <0.10 K/mcL LAB HEMETOLOGY METHOD [facility] Neutrophils Relative 54.8 % LAB HEMETOLOGY [facility] Lymphocytes Relative 34.7 % LAB HEMETOLOGY METHOD 09/22/2024 1:40 PM EDT [facility] Monocytes Relative 8.2 % LAB HEMETOLOGY METHOD 09/22/2024 1:40 PM EDT [facility] Eosinophils Relative 1.3 % LAB HEMETOLOGY METHOD 09/22/2024 1:40 PM EDT [facility] Basophils Relative 0.8 % LAB HEMETOLOGY METHOD 09/22/2024 1:40 PM EDT [facility] Immature Granulocytes Relative 0.2 % LAB HEMETOLOGY METHOD 09/22/2024 1:40 PM EDT [facility] Neutrophils Absolute 3.33 1.50 - 7.00 K/mcL LAB HEMETOLOGY METHOD 09/22/2024 1:40 PM EDT [facility] Lymphocytes Absolute 2.11 1.00 - 5.00 K/mcL LAB HEMETOLOGY METHOD 09/22/2024 1:40 PM EDT [facility] Monocytes Absolute 0.50 0.20 - 1.00 K/mcL LAB HEMETOLOGY METHOD 09/22/2024 1:40 PM EDT [facility] Eosinophils Absolute 0.08 0.00 - 0.50 K/mcL LAB HEMETOLOGY METHOD 09/22/2024 1:40 PM [facility] Basophils Absolute 0.05 0.00 - 0.20 K/mcL LAB HEMETOLOGY METHOD 09/22/2024 1:40 PM EDT [facility] Immature Granulocytes Absolute 0.01 0.00 - 0.03 K/mcL LAB HEMETOLOGY METHOD 09/22/2024 1:40 PM T [facility] Blood Venous blood specimen / Unknown Venipuncture / Unknown 09/22/2024 12:00 PM EDT 09/22/2024 1:35 PM EDT us Subramjose angel Nava MD LAB BLOOD ORDERABLE S Final Result [facility] [address] [place] [address], * Cancer antigen 27-29 (09/22/2024 12:00 PM EDT) Pathologist [facility] CA 27.29 31.0 <38.6 U/mL 09/25/2024 1:29 PM EDT [facility] Comment: The Siemens Advia Centaur [id number] Chemiluminescent Immunoassay is used. Results obtained with different assay methods or kits cannot be used interchangeably. Results cannot be interpreted as absolute evidence of the presence or absence of malignant disease. Test performed at [facility], [address] , [place], [place] ??[address] ? [phone] Mary Albrecht MD, PhD - Air Dispatcher Blood Venous blood specimen / Unknown Venipuncture / Unknown 09/22/2024 12:00 PM EDT 09/22/2024 1:35 PM EDT Tiffany Nava MD LAB BLOOD ORDERABLE S Final Result [facility] [address] [place] [address] * (ABNORMAL) Comprehensive metabolic panel (09/22/2024 12:00 PM EDT) Pathologist [facility] Sodium 141 133 - 145 mmol/L LAB CHEMISTRY METHOD 09/22/2024 2:14 PM EDT [facility] Potassium 4.6 3.5 - 5.5 mmol/L LAB CHEMISTRY METHOD 09/22/2024 2:14 PM EDT [facility] Chloride 104 96 - 110 mmol/L LAB CHEMISTRY METHOD 09/22/2024 2:14 PM EDT [facility] CO2 25 21 - 32 mmol/L LAB CHEMISTRY METHOD 09/22/2024 2:14 PM EDT [facility] Anion Gap 12(H) 3 - 11 LAB CHEMISTRY METHOD 09/22/2024 2:14 PM [facility] Glucose 94 70 - 100 mg/dL LAB CHEMISTRY METHOD 09/22/2024 2:14 PM [facility] BUN 15 5 - 25 mg/dL LAB CHEMISTRY METHOD 09/22/2024 2:14 PM [facility] Creatinine 1.29(H) 0.50 - 1.10 mg/dL LAB CHEMISTRY METHOD 09/22/2024 2:14 PM [facility] eGFR 43(L) >=60 mL/min/1. 73m2 LAB CHEMISTRY METHOD 09/22/2024 2:14 PM [facility] Comment:Calculation based on the??Chronic Kidney Disease Epidemiology Collaboration (CKD-EPI) equation refit??without adjustment for race. BUN/Creatinine Ratio 11.6 LAB CHEMISTRY METHOD 09/22/2024 2:14 PM [facility] Calcium 9.7 8.5 - 10.5 mg/dL LAB CHEMISTRY METHOD 09/22/2024 2:14 PM [facility] AST (SGOT) 18 10 - 42 unit/L LAB CHEMISTRY METHOD 09/22/2024 2:14 PM [facility] ALT (SGPT) 21 10 - 60 unit/L LAB CHEMISTRY METHOD 09/22/2024 2:14 PM [facility] Alkaline Phosphatase 87 42 - 121 unit/L LAB CHEMISTRY METHOD 09/22/2024 2:14 PM [facility] Total Protein 7.3 6.0 - 8.0 g/dL LAB CHEMISTRY METHOD 09/22/2024 2:14 PM [facility] Albumin 3.6 3.2 - 5.0 g/dL LAB CHEMISTRY METHOD 09/22/2024 2:14 PM [facility] Total Bilirubin 0.3 0.0 - 1.4 mg/dL LAB CHEMISTRY METHOD 09/22/2024 2:14 PM EDT [facility] Blood Venous blood specimen / Unknown Venipuncture / Unknown 09/22/2024 12:00 PM EDT 09/22/2024 1:35 PM EDT Tiffany Nava MD LAB BLOOD ORDERABLE S Final Result [facility] [address] [place] [address], [place] [phone] from Last 3 Months Insurance MEDICAID - [place] [facility] MEDICAID [facility] MEDICARE Member Subscriber Plan / Payer (Ef fective 2014-Present) Name:Von Herbertina Relation to Subscriber:Self Name:Von Herbertina Payer ID:[id number] Group ID:[id number] Type:Not on file Address: [address] [place] [phone] Care Teams Construction Trades Teacher Relationship Specialty Start Date End Date Milan Mcgraw PA [address] [place] [id number] PCP - General 06/05/23
== END 2024-10-27 12:26 | disposition home or self-care (01) ==
LOC: HO.HMCH 11:21
PROVIDERS: PCP Physician Assistant; Visit Provider Physician Assistant
DX: E11.65 Type 2 diabetes mellitus with hyperglycemia (principal); C50.911 Malignant neoplasm of unspecified site of right female breast; I82.402 Acute embolism and thrombosis of unspecified deep veins of left lower extremity; F11.20 Opioid dependence, uncomplicated; I10 Essential (primary) hypertension; E78.2 Mixed hyperlipidemia

== ENCOUNTER → 2024-10-27 11:20 | Outpatient (BNVA) | payer OTHER, SELFPAY | PROVIDERS: PCP Physician Assistant; Visit Provider Physician Assistant | DX: E11.65 Type 2 diabetes mellitus with hyperglycemia (principal); M54.50 Low back pain, unspecified; G89.29 Other chronic pain; I10 Essential (primary) hypertension; F11.20 Opioid dependence, uncomplicated; E78.2 Mixed hyperlipidemia; Z85.3 Personal history of malignant neoplasm of breast; Z90.13 Acquired absence of bilateral breasts and nipples; Z86.718 Personal history of other venous thrombosis and embolism; Z86.711 Personal history of pulmonary embolism; Z79.01 Long term (current) use of anticoagulants | CPT/HCPCS: 83036; 96127; 99212 ==

== ENCOUNTER 2024-11-04 11:00 | Outpatient (AMB) | payer OTHER, SELFPAY ==
--- NOTE | 2024-11-04 11:10 | MHC.OFFVIS ---
Intake Visit Reasons: Recurrent UTIs Intake Note: New patient presents today for initial visit for recurrent uti's Urology Medication: none Blood Thinner:Apixaban Antibiotic Allergies:None PVR:16ml Stereoptic Projection Topographer Required: No Allergies No Known Allergies [No Known Allergies*] Allergy (Verified 11/04/24 22:14) Medication List - Last Reconciled 11/04/24 by JOE SoniP- abemaciclib (Verzenio) 100 mg PO DAILY acetaminophen 325 mg PO Q6H PRN 30 days albuterol sulfate 2.5 mg (3 mL) inhalation Q6H PRN 30 days amitriptyline 10 mg PO BEDTIME 90 days amoxicillin-pot clavulanate 875-125 mg 1 tab PO BID 10 days apixaban (Eliquis) 5 mg PO BID 90 days blood sugar diagnostic (FreeStyle Lite Strips) As directed blood-glucose meter (FreeStyle Lite Meter kit) As directed budesonide-formoterol 80-4.5 mcg/actuation (Symbicort) 2 puffs inhalation BID 30 days chair, wheel (Wheel chair) Need for transfer wheelchair chair, wheel (Wheel chair) As directed cholecalciferol (vitamin D3) (Vitamin D3) 50 mcg PO DAILY cyclobenzaprine 10 mg PO TID PRN dextromethorphan-guaifenesin 30-600 mg (Mucinex DM) 1 tab PO Q12H 14 days diaper,brief,adult,disposable (Protective Underwear Ex-Large) 2xl size Briefs. diclofenac sodium 1% 2 grams topical BID PRN dicyclomine 20 mg (2 x 10 mg) PO QID 30 days donepezil 5 mg PO DAILY 30 days escitalopram oxalate 5 mg PO DAILY PRN fluticasone furoate-vilanterol 200-25 mcg/dose (Breo Ellipta) 1 inh inhalation DAILY 30 days furosemide (Lasix) 20 mg PO DAILY PRN gabapentin 800 mg PO TID 90 days ibuprofen 800 mg PO Q6H PRN incontinence pad, liner, disp As directed lancets (FreeStyle Lancets) As directed letrozole 2.5 mg PO DAILY memantine 28 mg PO DAILY 30 days metoprolol tartrate 50 mg PO BID mirtazapine (Remeron) 15 mg PO BEDTIME 30 days miscellaneous medical supply (Blood Pressure Cuff) As directed nebulizers (AeroEclipse II Nebulizer) As directed nebulizers As directed oxycodone 15 mg PO Q8H 28 days prednisone PO daily; Take 2 tabs daily x 5 days, then 1 tablet daily x 5 days 10 days semaglutide (Ozempic) 0.5 mg (0.736 mL) subcut TH 4 weeks semaglutide (Ozempic) 1 mg (0.75 mL) subcut QWEEK 4 weeks simvastatin 10 mg PO DAILY 90 days trazodone 200 mg (2 x 100 mg) PO BEDTIME 90 days HPI Comments Details: Beatriz is a pleasant 74-year-old Ugandan-speaking female patient of Dr. Mcgraw who was accompanied by her daughter at today's office visit. She has a past medical history of pulmonary emboli, dementia, NSTEMI, sleep apnea, hypercholesteremia, pulmonary hypertension, asthma, lobular carcinoma in Situ of breast, seroma, depression, arthritis, IBS, GERD, recurrent malignant neoplasm of right breast, and hypertension. She presents to the office today as a new patient for recurrent urinary tract infections. In discussion with the patient today she reports having followed up with her PCP for issue she had been experiencing with her urine at which time she was noted to have a urinary tract infection and recommendations were made for urology referral for further assessment evaluation. In review of patient's chart it appears urine culture: 02/16 corynebacterium species, 02/17 E coli, 09/18 E coli When asked she does report a longstanding history of IBS and has issues with diarrhea. In review of patient's chart it appears a CT of the abdomen was ordered and performed. These results were communicated with the patient and her daughter today. 10/18 no renal calculi are identified. There is no hydronephrosis noted bilaterally. There is a 3.3 cm cyst at the lower pole of the right kidney. The left kidney is unremarkable. We did discussed at length potential causes of recurrent urinary tract infections as well as further treatment options and risks and benefits of these treatment options. She currently denies any bothersome lower urinary tract symptoms and or UTI like symptoms. We discussed potential near future in office cystoscopy for further assessment evaluation. All questions were answered. She otherwise offers no other issues or concerns at time. 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 Depression Arthritis IBS (irritable bowel syndrome) GERD (gastroesophageal reflux disease) Recurrent malignant neoplasm of right breast HTN (hypertension) Traumatic complete tear of right rotator cuff Surgical History Hx of excision of mass (08/14/23) History of excision of lesion (05/30/23) S/P bilateral mastectomy History of bilateral mastectomy (02/19/22) Hx of cholecystectomy Hx of appendectomy Hx of blepharoplasty History of esophagogastroduodenoscopy (EGD) History of lumpectomy of both breasts History of surgery History of colonoscopy S/P ANDRÉS-BSO (total abdominal hysterectomy and bilateral salpingo-oophorectomy) History of lumbar fusion Family History Father Heart problem Mother Heart disease Hypertension Colon cancer Epilepsy Maternal Grandmother Esophageal cancer Daughter Breast cancer Brother Lung cancer Sister Breast cancer Sister Breast cancer, Onset Age: 60 Sister COVID Daughter Acute kidney failure Social History Household Members: None Housing: Apartment Are you a primary anesthesiologist and critical care to a significant other at home: No Do you presently have visiting nurse or other home services: No Alcohol intake: never Comment: counts correct Patient Tobacco Use Status: Never used Tobacco e-Cigarette/Vaping Use: Never Used Second Hand Smoke Exposure: No Advance Directives Date on File: 06/13/23 service: No Current occupational status: disabled 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) Hearing needs: No Vision needs: Yes Female Reproductive History Menstrual Age of Menarche: 9 Review of Systems Eyes Reports no additional complaints ENT Reports no additional complaints Card Reports as per HPI Resp Reports as per HPI GI Reports as per HPI Reports as per HPI Skin/Breast Reports as per HPI Neuro Reports as per HPI Psych Reports as per HPI Endo Reports as per HPI Physical Exam Const General: cooperative, healthy appearing, comfortable, no acute distress, well developed, alert and awake Orientation/consciousness: patient oriented x3 Limitations: ambulation with cane HEENT Head: Yes normal to inspection, Yes normocephalic and Yes atraumatic Ears: hearing grossly normal bilaterally Eyes General: appearance normal, both eyes and all related structures Neck Neck: Yes normal visual inspection and Yes trachea midline Chest Chest palpation & inspection: normal inspection of the chest Resp Effort & Inspection: normal respiratory effort and able to speak in complete sentences Cardio Rate: regular rate GI Inspection: Yes normal to inspection General: Yes no CVA tenderness Back/Spine/Pelvis Back: no CVA tenderness Skin General skin exam: no rashes or lesions noted Neuro General: patient oriented x3 Extrem General: Yes normal to inspection Psych Appearance: grossly normal and well kempt Mental Status: mental status grossly normal Speech and movement: Normal speech and movement present and Clear speech present Affect: normal affect Attitude: cooperative Thought process: Normal thought process present Thought content: Normal thought content present Insight: Fair insight present (Psych) Judgement: Fair judgement present (Psych) Results AMB Urinalysis, Automated UA Leukoctes 70 Marija/uL Last Edit by Ivonne Garcia on 11/04/24 11:20 UA Nitrite Negative Last Edit by Ivonne Garcia on 11/04/24 11:20 UA Urobilinogen 3.5 mg/dL Last Edit by Ivonne Garcia on 11/04/24 11:20 UA Protein 1 mg/dL Last Edit by Ivonne Garcia on 11/04/24 11:20 UA pH 6.0 Last Edit by Ivonne Garcia on 11/04/24 11:20 UA Blood 0 Min/uL Last Edit by Ivonne Garcia on 11/04/24 11:20 UA Specific [place] 1.015 Last Edit by Ivonne Garcia on 11/04/24 11:20 UA Ketone Negative Last Edit by Ivonne Garcia on 11/04/24 11:20 UA Bilirubin 0 mg/dL Last Edit by Ivonne Garcia on 11/04/24 11:20 UA Glucose 0 mg/dL Last Edit by Ivonne Garcia on 11/04/24 11:20 Results Reviewed Results Reviewed: Laboratory Last Values Urine pH (Auto) 6.0 11/04/24 08:16 Specific [place] (Auto) 1.015 11/04/24 08:16 Urine Protein (Auto) 1 mg/dL 11/04/24 08:16 Glucose (UA)(Auto) 0 mg/dL 11/04/24 08:16 Urine Ketones (Auto) Negative 11/04/24 08:16 Urine Blood (Auto) 0 Min/uL 11/04/24 08:16 Urine Nitrite (Auto) Negative 11/04/24 08:16 Urine Bilirubin (Auto) 0 mg/dL 11/04/24 08:16 Urine Urobilinogen (Auto) 3.5 mg/dL 11/04/24 08:16 Leukocyte Esterase (Auto) 70 Marija/uL 11/04/24 08:16 Date of Service: 09/28/24 Procedure(s): CT abdomen pelvis w IV con CHEST: THYROID: The thyroid is unremarkable. LUNGS: There is scarring in the right middle lobe and lingula. There is subsegmental atelectasis versus scarring at the lung bases. MEDIASTINUM: There are subcentimeter subcarinal lymph nodes. SARAH: There are subcentimeter bilateral hilar lymph nodes. CARDIOVASCULATURE: The heart is enlarged. There is no pericardial effusion. The thoracic aorta is normal in caliber. DEGREE OF CORONARY CALCIFICATION: none PLEURA: There is no pleural effusion. No pneumothorax. MAIN AIRWAYS: The mainstem bronchi and proximal branches are patent. AXILLA: There is no axillary lymphadenopathy. SOFT TISSUES: The patient is status post right mastectomy. BONES: There is degenerative disc disease of the spine. No fracture is seen. ABDOMEN: LIVER: The liver is normal in size and contour. No liver mass is identified. The hepatic and portal veins are patent. GALLBLADDER / BILE DUCTS: The patient is status post cholecystectomy. There is dilatation of intrahepatic biliary radicles as well as the common bile duct without significant change. SPLEEN: The spleen is normal in size. No focal splenic lesion is identified. PANCREAS: The pancreas is unremarkable in appearance. ADRENAL GLANDS: Within normal limits. KIDNEYS/RETROPERITONEUM: No renal calculi are identified. There is no hydronephrosis. There is a 3.3 cm cyst at the lower pole of the right kidney. The left kidney is unremarkable. LYMPH NODES: No abdominal or pelvic lymphadenopathy. VASCULATURE: The abdominal aorta is normal in caliber. MESENTERY/PERITONEUM: No free fluid. No masses. There is no free intraperitoneal gas. STOMACH: There is a small hiatal hernia. The remainder the stomach is collapsed. SMALL BOWEL: The small bowel is normal in caliber. COLON: The colon is unremarkable. APPENDIX: The appendix is not seen, however no inflammatory changes are seen adjacent to the cecum. URINARY BLADDER/PELVIC ORGANS: The urinary bladder is unremarkable. The patient is status post hysterectomy. BONES / SOFT TISSUES: There is severe degenerative disc disease of the spine. No fracture is seen. IMPRESSION: No evidence of traumatic injury to the chest, abdomen, or pelvis. Incidental findings as described above. Assessment & Plan Assessment & Plan (1) Frequent UTI: Code(s): N39.0 - Urinary tract infection, site not specified Category: Medical Plan In office urinalysis results reviewed with the patient and her daughter today; as noted above. PVR 16 mL. We discussed at length potential causes of recurrent urinary tract infections as well as further treatment options and risks and benefits of these treatment options. We discussed correlation of bowel issues with recurrent urinary tract infections. Recent CT results reviewed with the patient and her daughter today; as noted above. Start Estrace cream as discussed and prescribed. We also discussed potential near future in office cystoscopy for further assessment evaluation. She currently denies any bothersome urinary issues. She denies any UTI like symptoms. Refer to GI for further assessment evaluation. Will obtain retroperitoneal ultrasound. Discussed UTI prevention with D mannose supplement, vitamin-C, increasing fluid intake, behavioral therapy with timed voiding, perineal hygiene and postcoital voiding, and management of constipation with stool softeners and increased fiber intake. Follow-up in 3 months with imaging and PVR; or sooner with any issues, concerns, and or questions. Orders: Orders AMB Urinalysis Automated Today Z13.9 - Encounter for screening, unspecified AMB Post Void Residual by ultrasound Today N39.0 - Urinary tract infection, site not specified US retroperitoneal comp Today N39.0 - Urinary tract infection, site not specified Referrals Gastroenterology Referral K21.9 - Gastro-esophageal reflux disease without esophagitis, K58.9 - Irritable bowel syndrome, unspecified, R19.7 - Diarrhea, unspecified Medications: New estradiol 0.01%(0.1mg/gram) apply a pea sized amount to urethera daily times one month and then three times per week therafter. 1 g vaginal 3XW 90 days 42.5 grams 2RF N36.2 - Urethral caruncle, N39.0 - Urinary tract infection, site not specified, N95.2 - Postmenopausal atrophic vaginitis Discontinued amoxicillin-pot clavulanate 875-125 mg Discontinued Reason: Patient Completed Course 1 tab PO BID 10 days 20 tabs 0RF Patient Instructions: The patient had an opportunity to ask questions regarding the treatment plan. All questions were answered. Physical exam, labs, and imaging were discussed and reviewed in detail. As well as risks, benefits, and discussion of treatment choices. No major barriers to understanding were identified. The patient expressed understanding and agreement with the above treatment plan. The patient was made aware they should contact our office by phone for worsening of their current condition, the appearance of new symptoms, or with any questions or concerns. Compliance is encouraged with any medications and follow up testing that is ordered. It is a privilege to be allowed the opportunity to participate in? your urological care.? Again, if you have any questions or concerns If you have any questions or concerns please do not hesitate to contact me. The office is [phone]. This note is constructed using voice recognition software. While every effort has been made to ensure accuracy aerospace assembler errors may have been included. Yours sincerely, WILLIE Soni Coding Level of Care Code New Pt Level 4 (61612) Diagnoses Frequent UTI N39.0
--- OUTSIDE RECORDS SUMMARY | 2024-11-04 12:35 | XMS_ITS | Clinical Summary ---
Author Organization [facility] Address [address] [place] [phone] Phone Care Team Providers Care Terminal System Operator Name Role Phone Milan Mcgraw Primary [...] on breathing 11/27/2023 Cancer, 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 ([facility] V24, [facility] V28) 10/01/2023 Acute cystitis without hematuria 09/16/2023 Weight loss 09/16/2023 Lymphedema of right arm 06/19/2023 Malignant neoplasm of left f emale breast ([facility] V24, [facility] V28) 06/19/2023 Malignant neoplasm of upper- outer [...] Description 09/22/2024 11:30 AM EDT Office Visit [facility] Hematology Oncology [address] [place] [phone] Wilma-Tiffany Poole MD Malignant neoplasm of overlapping sites of [...] Description 11/23/2024 11:15 AM EDT Office Visit [facility] Hematology Oncology [address] [place] [address] Tiffany Nava MD [address] [place] [address] Health Maintenance Due Date Last Done Comments Zoster Vaccines (1 of 2) 1969 RSV Immunization Adult Patients (1 - 1-dose 75+ series) 2023 Depression Screening 12/17/2023 Falls Risk Assessment 12/17/2023 Hepatitis C Screening 12/17/2023 Medicare Annual Wellness Visit 12/17/2023 Osteoporosis Screening (Bone Density Screening) 12/17/2023 Social Influencers of Health Screening 12/17/2023 COVID-19 Vaccine ( - 2023- season) 2024 07/15/2021, 08/16/2020, 07/19/2020 DTaP,Tdap,and Td [...] CBC auto differential (09/22/2024 12:00 PM EDT) [facility] WBC 6.1 4.8 - 10.8 K/mcL LAB HEMETOLOGY METHOD 09/22/2024 1:40 PM EDT [facility] RBC 3.90 3.80 - 4.80 M/mcL LAB HEMETOLOGY METHOD 09/22/2024 1:40 PM EDT [facility] Hemoglobin 12.3 11.5 - 16.0 g/dL LAB HEMETOLOGY METHOD 09/22/2024 1:40 PM EDT [facility] Hematocrit 38.3 35.0 - 47.0 % LAB HEMETOLOGY METHOD 09/22/2024 1:40 PM [facility] MCV 98.7(H) 79.0 - 98.0 FL LAB HEMETOLOGY METHOD 09/22/2024 1:40 PM [facility] MCH 31.7 27.0 - 32.0 pcg LAB HEMETOLOGY [facility] MCHC 32.1 32.0 - 37.0 g/dL LAB HEMETOLOGY METHOD 09/22/2024 1:40 PM [facility] RDW 13.9 11.0 - 15.0 % LAB HEMETOLOGY METHOD 09/22/2024 1:40 PM [facility] Platelets 361 130 - 400 K/mcL LAB HEMETOLOGY METHOD 09/22/2024 1:40 PM EDT [facility] MPV 10.0 7.0 - 11.0 FL LAB HEMETOLOGY METHOD [facility] NRBC 0.0 <1.0 % LAB [facility]OLOGY [facility] NR[facility] Absolute 0.00 <0.10 K/mcL LAB HEMETOLOGY METHOD 09/22/2024 1:40 PM EDT [facility] Neutrophils Relative 54.8 % LAB HEMETOLOGY METHOD 09/22/2024 1:40 PM EDT [facility] Lymphocytes Relative 34.7 % LAB HEMETOLOGY METHOD 09/22/2024 1:40 PM [facility] Monocytes Relative 8.2 % LAB HEMETOLOGY METHOD 09/22/2024 1:40 PM T [facility] Eosinophils Relative 1.3 % LAB HEMETOLOGY METHOD 09/22/2024 1:40 PM [facility] Basophils Relative 0.8 % LAB HEMETOLOGY METHOD 09/22/2024 1:40 PM [facility] Immature Granulocytes Relative 0.2 % LAB HEMETOLOGY METHOD 09/22/2024 1:40 PM [facility] Neutrophils Absolute 3.33 1.50 - 7.00 K/mcL LAB HEMETOLOGY METHOD 09/22/2024 1:40 PM [facility] Lymphocytes Absolute 2.11 1.00 - 5.00 K/mcL LAB HEMETOLOGY METHOD 09/22/2024 1:40 PM [facility] Monocytes Absolute 0.50 0.20 - 1.00 K/mcL LAB HEMETOLOGY METHOD 09/22/2024 1:40 PM [facility] Eosinophils Absolute 0.08 0.00 - 0.50 K/mcL LAB HEMETOLOGY METHOD 09/22/2024 1:40 PM [facility] Basophils Absolute 0.05 0.00 - 0.20 K/mcL LAB HEMETOLOGY METHOD 09/22/2024 1:40 PM [facility] Immature Granulocytes Absolute 0.01 0.00 - 0.03 K/mcL LAB HEMETOLOGY METHOD 09/22/2024 1:40 PM [facility] Blood Venous blood specimen / Unknown Venipuncture / Unknown 09/22/2024 12:00 PM EDT 09/22/2024 1:35 PM EDT Tiffany Nava MD LAB BLOOD ORDERABLE S Final Result Performing Organization Address [facility]/ZIP Co de Phone Number [facility] [address] [place] [address], [place] [phone] * Cancer antigen 27-29 (09/22/2024 12:00 PM EDT) CA 27.29 31.0 <38.6 U/mL 09/25/2024 1:29 PM EDT [facility] Comment: The Siemens Advia Simpirica Spineaur [id number] Chemiluminescent Immunoassay is used. Results obtained with different assay methods or kits cannot be used interchangeably. Results cannot be interpreted as absolute evidence of the presence or absence of malignant disease. Test performed at [facility], [address] [place], [place] ??[address] ? [phone] Mary Albrecht MD, PhD - Search Strategist Blood Venous blood specimen / Unknown Venipuncture / Unknown 09/22/2024 12:00 PM EDT 09/22/2024 1:35 PM EDT Tiffany Nava MD LAB BLOOD ORDERABLE S Final Result Performing Organization Address City/[facility]/ZIP Co de Phone Number [facility] [address] [place] [address] * (ABNORMAL) Comprehensive metabolic panel (09/22/2024 12:00 PM EDT) Sodium 141 133 - 145 mmol/L LAB CHEMISTRY METHOD 09/22/2024 2:14 PM EDT [facility] Potassium 4.6 3.5 - 5.5 mmol/L LAB CHEMISTRY METHOD 09/22/2024 2:14 PM EDT [facility] Chloride 104 96 - 110 mmol/L LAB CHEMISTRY METHOD 09/22/2024 2:14 PM [facility] CO2 25 21 - 32 mmol/L LAB CHEMISTRY METHOD 09/22/2024 2:14 PM [facility] Anion Gap 12(H) 3 - 11 LAB CHEMISTRY METHOD 09/22/2024 2:14 PM [facility] Glucose 94 70 - 100 mg/dL LAB CHEMISTRY METHOD 09/22/2024 2:14 PM [facility] BUN 15 5 - 25 mg/dL LAB CHEMISTRY METHOD 09/22/2024 2:14 PM [facility] Creatinine 1.29(H) 0.50 - 1.10 mg/dL LAB CHEMISTRY METHOD 09/22/2024 2:14 PM [facility] eGFR 43(L) >=60 mL/min/1. 73m2 LAB CHEMISTRY METHOD 09/22/2024 2:14 PM [facility] Comment:Calculation based on the??Chronic Kidney Disease Epidemiology Collaboration (CKD-EPI) equation refit??without adjustment for race. BUN/Creatinine Ratio 11.6 LAB CHEMISTRY METHOD 09/22/2024 2:14 PM [facility] Calcium 9.7 8.5 - 10.5 mg/dL LAB CHEMISTRY METHOD 09/22/2024 2:14 PM [facility] AST (SGOT) 18 10 - 42 unit/L LAB CHEMISTRY METHOD 09/22/2024 2:14 PM [facility] ALT (SGPT) 21 10 - 60 unit/L LAB CHEMISTRY METHOD 09/22/2024 2:14 PM [facility] Alkaline Phosphatase 87 42 - 121 unit/L LAB CHEMISTRY METHOD 09/22/2024 2:14 PM [facility] Total Protein 7.3 6.0 - 8.0 g/dL LAB CHEMISTRY METHOD 09/22/2024 2:14 PM [facility] Albumin 3.6 3.2 - 5.0 g/dL LAB CHEMISTRY METHOD 09/22/2024 2:14 PM EDT [facility] Total Bilirubin 0.3 0.0 - 1.4 mg/dL LAB CHEMISTRY METHOD 09/22/2024 2:14 PM EDT [facility] Blood Venous blood specimen / Unknown Venipuncture / Unknown 09/22/2024 12:00 PM EDT 09/22/2024 1:35 PM EDT us Subramjose angel Nava MD LAB BLOOD ORDERABLE S Final Result [facility] ([facility]) [facility] [address] [place] [address], from Last 3 Months Insurance MEDICAID - [place] [facility] MEDICAID [facility] MEDICARE Member Subscriber Plan / Payer (Ef fective 2014-Present) Name:Beatriz Herbert Relation to Subscriber:Self Name:Beatriz Herbert Payer ID:[id number] Group ID:[id number] Type:Not on file Address: [address] [facility] [place] [phone] Care Teams Terminal System Operator Relationship Specialty Start Date End Date Milan Mcgraw PA [address] [place] [phone] PCP - General 06/05/23
== END 2024-11-04 11:41 | disposition home or self-care (01) ==
LOC: HO.HUSH 11:01
PROVIDERS: PCP Physician Assistant; Visit Provider Nurse Practitioner Family
DX: N39.0 Urinary tract infection, site not specified (principal); Z13.9 Encounter for screening, unspecified
CPT/HCPCS: 99204

== ENCOUNTER → 2024-11-04 11:00 | Outpatient (BNVA) | payer OTHER, SELFPAY | PROVIDERS: PCP Physician Assistant; Visit Provider Nurse Practitioner Family | DX: N36.2 Urethral caruncle (principal); N39.0 Urinary tract infection, site not specified | CPT/HCPCS: 81003; 99202 ==

== ENCOUNTER → 2024-11-06 19:30 | Outpatient (REF) | payer OTHER, SELFPAY ==
--- OUTSIDE RECORDS SUMMARY | 2024-11-06 22:40 | XMS_ITS | Clinical Summary ---
Author Organization [facility] Address [address] [place] [phone] Phone Care Team Providers Care Ball Rolling Machine Operator Name Role Phone Milan Mcgraw Primary [...] on breathing 11/27/2023 Cancer, 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 ([facility] V24, [facility] V28) 10/01/2023 Acute cystitis without hematuria 09/16/2023 Weight loss 09/16/2023 Lymphedema of right arm 06/19/2023 Malignant neoplasm of left f emale breast ([facility] V24, [facility] V28) 06/19/2023 Malignant neoplasm of upper- [...] Description 09/22/2024 11:30 AM EDT Office Visit [facility] Hematology Oncology [address] [place] [phone] Wilma-Tiffany Poole MD Malignant neoplasm of overlapping [...] Description 11/23/2024 11:15 AM EDT Office Visit [facility] Hematology Oncology [address] [place] [address] Tiffany Nava MD [address] [place] [address] Health Maintenance Due Date Last [...] CBC auto differential (09/22/2024 12:00 PM EDT) [facility] WBC 6.1 4.8 - 10.8 K/mcL LAB HEMETOLOGY METHOD 09/22/2024 1:40 PM EDT [facility] RBC 3.90 3.80 - 4.80 M/mcL LAB HEMETOLOGY METHOD 09/22/2024 1:40 PM EDT [facility] Hemoglobin 12.3 11.5 - 16.0 g/dL LAB HEMETOLOGY METHOD 09/22/2024 1:40 PM EDT [facility] Hematocrit 38.3 35.0 - 47.0 % LAB HEMETOLOGY METHOD 09/22/2024 1:40 PM [facility] MCV 98.7(H) 79.0 - 98.0 FL LAB HEMETOLOGY METHOD 09/22/2024 1:40 PM [facility] MCH 31.7 27.0 - 32.0 pcg LAB HEMETOLOGY METHOD 09/22/2024 [facility] MCHC 32.1 32.0 - 37.0 g/dL LAB HEMETOLOGY METHOD 09/22/2024 1:40 PM [facility] RDW 13.9 11.0 - 15.0 % LAB HEMETOLOGY METHOD 09/22/2024 1:40 PM [facility] Platelets 361 130 - 400 K/mcL LAB HEMETOLOGY METHOD 09/22/2024 1:40 PM EDT [facility] MPV 10.0 7.0 - 11.0 FL LAB HEMETOLOGY METHOD 09/22/2024 1:[facility] NRBC 0.0 <1.0 % LAB HEMETOLOGY METHOD 09/22/2024 1:40 [facility] NRBC Absolute 0.00 <0.10 K/mcL LAB HEMETOLOGY METHOD 09/22/2024 1:40 PM EDT [facility] Neutrophils Relative 54.8 % LAB HEMETOLOGY METHOD 09/22/2024 1:40 PM EDT [facility] Lymphocytes Relative 34.7 % LAB HEMETOLOGY METHOD 09/22/2024 1:40 PM [facility] Monocytes Relative 8.2 % LAB HEMETOLOGY METHOD 09/22/2024 1:40 PM T [facility] Eosinophils Relative 1.3 % LAB HEMETOLOGY METHOD 09/22/2024 1:40 PM [facility] Basophils Relative 0.8 % LAB HEMETOLOGY METHOD 09/22/2024 1:40 PM [facility] Immature Granulocytes Relative 0.2 % LAB HEMETOLOGY METHOD 09/22/2024 1:40 PM [facility] Neutrophils Absolute 3.33 1.50 - 7.00 K/mcL LAB HEMETOLOGY METHOD 09/22/2024 1:40 PM [facility] Lymphocytes Absolute 2.11 1.00 - 5.00 K/mcL LAB HEMETOLOGY METHOD 09/22/2024 1:40 PM [facility] Monocytes Absolute 0.50 0.20 - 1.00 K/mcL LAB HEMETOLOGY METHOD 09/22/2024 1:40 PM [facility] Eosinophils Absolute 0.08 0.00 - 0.50 K/mcL LAB HEMETOLOGY METHOD 09/22/2024 1:40 PM [facility] Basophils Absolute 0.05 0.00 - 0.20 K/mcL LAB HEMETOLOGY METHOD 09/22/2024 1:40 PM [facility] Immature Granulocytes Absolute 0.01 0.00 - 0.03 K/mcL LAB HEMETOLOGY METHOD 09/22/2024 1:40 PM [facility] Blood Venous blood specimen / Unknown Venipuncture / Unknown 09/22/2024 12:00 PM EDT 09/22/2024 1:35 PM EDT Tiffany Nava MD LAB BLOOD ORDERABLE S Final Result Performing Organization Address [facility]/ZIP Co de Phone Number [facility] [address] [place] [address], [place] [phone] * Cancer antigen 27-29 (09/22/2024 12:00 PM EDT) CA 27.29 31.0 <38.6 U/mL 09/25/2024 1:[address] [facility] Comment: The Siemens Advia WindowsWearaur [id number] Chemiluminescent Immunoassay is used. Results obtained with different assay methods or kits cannot be used interchangeably. Results cannot be interpreted as absolute evidence of the presence or absence of malignant disease. Test performed at [facility], [address] [place], [place] ??[address] ? [phone] Mary Albrecht MD, PhD - Tubular Stock Glass Bulb Machine Former Blood Venous blood specimen / Unknown Venipuncture / Unknown 09/22/2024 12:00 PM EDT 09/22/2024 1:35 PM EDT Tiffany Nava MD LAB BLOOD ORDERABLE S Final Result Performing Organization Address City/[facility]/ZIP Co de Phone Number [facility] [address] [place] [address] * (ABNORMAL) Comprehensive metabolic panel (09/22/2024 12:00 PM EDT) Sodium 141 133 - 145 mmol/L LAB CHEMISTRY METHOD 09/22/2024 2:14 PM EDT [facility] Potassium 4.6 3.5 - 5.5 mmol/L LAB CHEMISTRY METHOD 09/22/2024 2:14 PM EDT [facility] Chloride 104 96 - 110 mmol/L LAB CHEMISTRY METHOD 09/22/2024 2:14 PM [facility] CO2 25 21 - 32 mmol/L LAB CHEMISTRY METHOD 09/22/2024 2:14 PM [facility] Anion Gap 12(H) 3 - 11 LAB CHEMISTRY METHOD 09/22/2024 2:14 PM [facility] Glucose 94 70 - 100 mg/dL LAB CHEMISTRY METHOD 09/22/2024 2:14 PM [facility] BUN 15 5 - 25 mg/dL LAB CHEMISTRY METHOD 09/22/2024 2:14 PM [facility] Creatinine 1.29(H) 0.50 - 1.10 mg/dL LAB CHEMISTRY METHOD 09/22/2024 2:14 PM [facility] eGFR 43(L) >=60 mL/min/1. 73m2 LAB CHEMISTRY METHOD 09/22/2024 2:14 PM [facility] Comment:Calculation based on the??Chronic Kidney Disease Epidemiology Collaboration (CKD-EPI) equation refit??without adjustment for race. BUN/Creatinine Ratio 11.6 LAB CHEMISTRY METHOD 09/22/2024 2:14 PM [facility] Calcium 9.7 8.5 - 10.5 mg/dL LAB CHEMISTRY METHOD 09/22/2024 2:14 PM [facility] AST (SGOT) 18 10 - 42 unit/L LAB CHEMISTRY METHOD 09/22/2024 2:14 PM [facility] ALT (SGPT) 21 10 - 60 unit/L LAB CHEMISTRY METHOD 09/22/2024 2:14 PM [facility] Alkaline Phosphatase 87 42 - 121 unit/L LAB CHEMISTRY METHOD 09/22/2024 2:14 PM [facility] Total Protein 7.3 6.0 - 8.0 g/dL LAB CHEMISTRY METHOD 09/22/2024 2:14 PM [facility] Albumin 3.6 3.2 - 5.0 g/dL LAB CHEMISTRY METHOD 09/22/2024 2:14 PM EDT [facility] Total Bilirubin 0.3 0.0 - 1.4 mg/dL LAB CHEMISTRY METHOD 09/22/2024 2:14 PM EDT [facility] Blood Venous blood specimen / Unknown Venipuncture / Unknown 09/22/2024 12:00 PM EDT 09/22/2024 1:35 PM EDT us Subramjose angel Nava MD LAB BLOOD ORDERABLE S Final Result [facility] ([facility]) [facility] [address] [place] [address], from Last 3 Months Insurance MEDICAID - [place] [facility] MEDICAID [facility] MEDICARE Member Subscriber Plan / Payer (Ef fective 2014-Present) Name:Beatriz Herbert Relation to Subscriber:Self Name:Beatriz Herbert Payer ID:[id number] Group ID:[id number] Type:Not on file Address: [address] [facility] [place] [phone] Care Teams Ball Rolling Machine Operator Relationship Specialty Start Date End Date Milan Mcgraw PA [address] [place] [phone] PCP - General 06/05/23
== END ==
LOC: HO.SL 19:30
PROVIDERS: PCP Physician Assistant; Visit Provider Nurse Practitioner Family
DX: G47.33 Obstructive sleep apnea (adult) (pediatric) (principal); G47.34 Idiopathic sleep related nonobstructive alveolar hypoventilation; G47.19 Other hypersomnia; F09 Unspecified mental disorder due to known physiological condition; R06.83 Snoring; G47.10 Hypersomnia, unspecified
CPT/HCPCS: 95810

== ENCOUNTER → 2024-11-06 22:02 | Outpatient (BNV) | payer OTHER, SELFPAY | PROVIDERS: PCP Physician Assistant; Visit Provider Psychiatry & Neurology Neurology | DX: G47.33 Obstructive sleep apnea (adult) (pediatric) (principal) | CPT/HCPCS: 95810 ==

== ENCOUNTER → 2024-11-17 13:52 | Outpatient (REF) | payer OTHER, SELFPAY ==
--- NOTE | 2024-11-17 13:57 | CA_ITS ---
Transthoracic Echocardiogram Patient (Last, First, Middle): Beatriz Delgado, Gender: Female Date of : 1950 Age: 74 Procedure Date: 11/17/2024 Procedure Type: Transthoracic Echocardiogram Location: OP Height: 152.4 cm Weight: 74.84 kg BSA: 1.72 m2 Heart Rate: bpm BP: 120 / 68 mmHg Shirt Sewer: STACEY Referring MD: Peri Epps RAILROAD MAINTENANCE CLERK-C Symptoms: I10 - Essential (primary) hypertension Study Quality: Good ECG Rhythm: Sinus Conclusions: - The left ventricular systolic function is normal. The calculated ejection fraction is 57% by biplane method. - There is mild to moderate tricuspid valve regurgitation. Findings Left Ventricle Normal left ventricular cavity size. There is normal left ventricular wall thickness. The left ventricular systolic function is normal. The calculated ejection fraction is 57% by biplane method. There is no evidence of regional wall motion abnormalities. Diastolic function is normal for age. Right Ventricle Normal right ventricular cavity size and systolic function. Atria Both atria are normal in size. Aortic Valve There is a normal trileaflet aortic valve. There is no aortic valve stenosis. There is no aortic valve regurgitation. Mitral Valve The mitral valve appears normal. There is trace mitral valve regurgitation. There is no mitral valve stenosis. Pulmonic Valve The pulmonic valve is likely normal. Tricuspid Valve There is mild to moderate tricuspid valve regurgitation. There is no evidence of pulmonary hypertension. Great Vessels The asc aorta is normal in size. Venous The inferior vena cava is normal in size and collapses greater than 50% with inspiration. Pericardium/Pleural There is no evidence of pericardial effusion. Measurements 2D Linear Measurements IVSd: 0.97 0.6-0.9/0.6-1.0 cm LVIDd: 4.57 3.9-5.3/4.2-5.9 cm LVIDd Index: 2.66 2.4-3.2/2.2-3.1 cm/m2 LVIDs: 2.45 2.0-3.6 cm LVPWd: 1.03 0.7-1.1 cm Ao Root: 2.90 2.1-3.5 cm LA Diam: 3.60 2.7-3.8/3.0-4.0 cm LAIDs Index: 2.09 1.5-2.3 cm/m2 LV Mass: 196.21 67-162/88-224 g LV Mass Index: 114.08 43-95/49-115 g/m2 LVOT Diam: 2.00 3.0+(-)1.3 cm 2D Systolic Function EF 4C: 55.20 >55% EF 2C: 64.60 >55% EF BiP: 57.10 >55% Mitral Valve MV Pk E: 0.79 MV PK A: 0.90 MV Decel Time: 169.00 E/A: 0.90 E'Lateral: 9.25 E'Medial: 5.87 E/E' Med: 13.50 E/E' Lat: 8.60 PHT: 50.00 MVA PHT: 4.40 Decel Brewster: 4.69 LVOT LVOT Pk Ayush: 0.93 LVOT Mn Ayush: 0.61 LVOT VTI: 0.23 LVOT Pk Grad: 3.00 LVOT Mn Grad: 2.00 LVOT Diam: 2.00 LVOT Area: 3.14 Diastolic Function MV Pk E: 0.79 MV Pk A: 0.90 E/A: 0.90 E'Medial: 5.87 E/E' Med: 13.50 E' Laterial: 9.25 E/E' Lat: 8.60 Right Ventricle TAPSE (mm): 21.00 Tricuspid Valve TR Pk Ayush: 2.44 TR Pk Grad: 24.00 RA Press: 3.00 RVSP: 27.00 Great Vessels Aorta Ao Root-2D: 2.90 2.0-3.7 cm Ao Asc: 3.30 2.1-3.4 cm Pulmonary Valve PV Pk Ayush: 0.81 Peak PV Grad: 3.00 Updated in Other Vendor System with Status of Final Johnathan Rocha MD electronically signed on 11/18/2024 10:33:27 AM with status of Final
== END ==
LOC: HO.CARD 13:52
PROVIDERS: PCP Physician Assistant; Visit Provider Nurse Practitioner Family
DX: I10 Essential (primary) hypertension (principal); R93.1 Abnormal findings on diagnostic imaging of heart and coronary circulation
CPT/HCPCS: 93306

== ENCOUNTER → 2024-11-17 13:57 | Outpatient (BNV) | payer OTHER, SELFPAY | PROVIDERS: PCP Physician Assistant; Visit Provider Internal Medicine | DX: I36.1 Nonrheumatic tricuspid (valve) insufficiency (principal) | CPT/HCPCS: 93306 ==

== ENCOUNTER 2024-12-28 13:56 | Outpatient (AMB) | payer OTHER, SELFPAY ==
[2024-12-28 14:05] VITALS: BP 110/64; PULSE 73; BMI 33.1
--- NOTE | 2024-12-28 14:05 | A.OFFVIS_ITS ---
Vital Signs 12/28/24 14:05 Height 4 ft 11 in Weight 164 lb 0.383 oz BMI 33.1 BP 110/64 Pulse 73 Intake Visit Reasons: FOLLOW UP Couples Therapist Required: No Mononitrotoluene Operator: Mononitrotoluene Operator Present Allergies No Known Allergies (No Known Allergies*) Allergy (Verified 12/28/24 14:09) Medication List - Last Reconciled 12/28/24 by JIM KimC abemaciclib (Verzenio) 100 mg PO DAILY acetaminophen 325 mg PO Q6H PRN 30 days albuterol sulfate 2.5 mg (3 mL) inhalation Q6H PRN 30 days amitriptyline 10 mg PO BEDTIME 90 days apixaban (Eliquis) 5 mg PO BID 90 days blood sugar diagnostic (FreeStyle Lite Strips) As directed blood-glucose meter (FreeStyle Lite Meter kit) As directed budesonide-formoterol 80-4.5 mcg/actuation (Symbicort) 2 puffs inhalation BID 30 days chair, wheel (Wheel chair) Need for transfer wheelchair chair, wheel (Wheel chair) As directed cholecalciferol (vitamin D3) (Vitamin D3) 50 mcg PO DAILY cyclobenzaprine 10 mg PO TID PRN dextromethorphan-guaifenesin 30-600 mg (Mucinex DM) 1 tab PO Q12H 14 days diaper,brief,adult,disposable (Protective Underwear Ex-Large) 2xl size Briefs. diclofenac sodium 1% 2 grams topical BID PRN dicyclomine 20 mg (2 x 10 mg) PO QID 30 days donepezil 5 mg PO DAILY 30 days escitalopram oxalate 5 mg PO DAILY PRN estradiol 0.01%(0.1mg/gram) 1 g vaginal 3XW 90 days fluticasone furoate-vilanterol 200-25 mcg/dose (Breo Ellipta) 1 inh inhalation DAILY 30 days furosemide (Lasix) 20 mg PO DAILY PRN gabapentin 800 mg PO TID 90 days ibuprofen 800 mg PO Q6H PRN incontinence pad, liner, disp As directed lancets (FreeStyle Lancets) As directed letrozole 2.5 mg PO DAILY memantine 28 mg PO DAILY 30 days metoprolol tartrate 50 mg PO BID mirtazapine (Remeron) 15 mg PO BEDTIME 30 days miscellaneous medical supply (Blood Pressure Cuff) As directed naloxone 4 mg/actuation (Narcan) 4 mg intranasal Q2M 30 days nebulizers (AeroEclipse II Nebulizer) As directed nebulizers As directed oxycodone 15 mg PO Q8H 28 days prednisone PO daily; Take 2 tabs daily x 5 days, then 1 tablet daily x 5 days 10 days semaglutide (Ozempic) 0.5 mg (0.736 mL) subcut TH 4 weeks Held on 10/27/24. Instructions: Doctor's Order semaglutide (Ozempic) 1 mg (0.75 mL) subcut QWEEK 4 weeks simvastatin 10 mg PO DAILY 90 days trazodone 200 mg (2 x 100 mg) PO BEDTIME 90 days HPI HPI FOLLOW UP: Details: Beatriz is a 74-year-old female with past medical history of hypertension, diabetes, morbid obesity, DVT, bilateral pulmonary embolism and secondary NSTEMI 12/2022 who presents for follow-up. Today she reports that she has been doing well since her last visit 10/28/2023. She has asthma but reports no concerning sob, no PND, orthopnea or edema. No chest discomfort at rest or with activity. No heart palpitations, presyncope, syncope, falls. Ambulates with a cane. Taking meds as directed. No bleeding issues reported with Eliquis use. Daughter is present and assisting with Turkmen interpretation at their request. 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 Depression Arthritis IBS (irritable bowel syndrome) GERD (gastroesophageal reflux disease) Recurrent malignant neoplasm of right breast HTN (hypertension) Traumatic complete tear of right rotator cuff Surgical History Hx of excision of mass (08/14/23) History of excision of lesion (05/30/23) S/P bilateral mastectomy History of bilateral mastectomy (02/19/22) Hx of cholecystectomy Hx of appendectomy Hx of blepharoplasty History of esophagogastroduodenoscopy (EGD) History of lumpectomy of both breasts History of surgery History of colonoscopy S/P ANDRÉS-BSO (total abdominal hysterectomy and bilateral salpingo-oophorectomy) History of lumbar fusion Family History Father Heart problem Mother Heart disease Hypertension Colon cancer Epilepsy Maternal Grandmother Esophageal cancer Daughter Breast cancer Brother Lung cancer Sister Breast cancer Sister Breast cancer, Onset Age: 60 Sister COVID Daughter Acute kidney failure Social History Household Members: None Housing: Apartment Are you a primary care provider to a significant other at home: No Do you presently have visiting nurse or other home services: No Alcohol intake: never Comment: counts correct Patient Tobacco Use Status: Never used Tobacco e-Cigarette/Vaping Use: Never Used Second Hand Smoke Exposure: No Advance Directives Date on File: 06/13/23 service: No Current occupational status: disabled 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) Hearing needs: No Vision needs: Yes Female Reproductive History Menstrual Age of Menarche: 9 Review of Systems Const All systems reviewed & are unremarkable except as noted in HPI and below ENT Reports dizziness Card Denies chest pain, Denies chest pain at rest, Denies chest pain with activity, D enies rapid heart rate, Denies pedal edema, Denies edema, Denies leg edema, Denies lightheadedness, Denies palpitations, Denies dyspnea, Denies dyspnea on exertion and Denies orthopnea Resp Denies cough, Denies dyspnea and Denies dyspnea on exertion GI Denies hematochezia and Denies change in stool character Musc Denies abnormal gait, Denies limited range of motion, Denies muscle cramps, Denies muscle weakness, Denies numbness, Denies radiating pain into limb, Denies stiffness and Denies tingling Neuro Denies abnormal gait, Reports dizziness, Denies numbness and Denies tingling Endo Denies palpitations Physical Exam Vital Signs: BMI result Body Mass Index 33.1 Const General: cooperative, healthy appearing, comfortable and no acute distress Orientation/consciousness: patient oriented x3 Neck Neck: Yes normal visual inspection Resp Effort & Inspection: normal respiratory effort Auscultation: clear to auscultation bilaterally, no rales, no rhonchi and no wheezes Cardio Rate: regular rate Rhythm: regular rhythm Heart sounds: S1 normal heart sound present, S2 normal heart sound present, no gallops, no murmurs and no rubs Neuro General: patient oriented x3 Extrem General: Yes normal to inspection, No no pedal edema and No calf tenderness Psych Appearance: grossly normal Mental Status: mental status grossly normal Speech and movement: Normal speech and movement present Assessment & Plan Assessment & Plan (1) Pulmonary emboli: Code(s): I26.99 - Other pulmonary embolism without acute cor pulmonale Category: Medical Qualifiers: Pulmonary embolism type: multiple subsegmental (without acute cor pulmonale) Qualified Code(s): I26.94 - Multiple subsegmental pulmonary emboli without acute cor pulmonale Plan: Finding of pulmonary embolism on CTA done November 2022. She also had lower extremity duplex showing extensive DVT on the left lower extremity. She was started on anticoagulation and continues on Eliquis without any bleeding issues. Her initial echo did not show any RV strain, it did show normal EF and could not exclude apical inferior hypokinesis. She has not had any issues with heart failure. A repeat echo prior to this appointment showed EF 57%, normal RV, no regional wall motion abnormality. Continue Eliquis which is managed by her PCP. Cardiology follow-up PRN. (2) DVT (deep venous thrombosis): Code(s): I82.409 - Acute embolism and thrombosis of unspecified deep veins of unspecified lower extremity Category: Medical Qualifiers: DVT location: lower extremity Affected thrombotic vein of extremity: unspecified vein of extremity Chronicity: acute Laterality: left Qualified Code(s): I82.402 - Acute embolism and thrombosis of unspecified deep veins of left lower extremity Plan: As above (3) NSTEMI (non-ST elevation myocardial infarction): Code(s): I21.4 - Non-ST elevation (NSTEMI) myocardial infarction Category: Medical Plan: Troponin elevated during hospital admission for pulmonary embolism/DVT. Troponin as high as 859. No EKG changes of ischemia. Echo did show normal EF can not exclude apical inferior hypokinesis, possible technical finding. She was felt to have secondary NSTEMI related to the pulmonary embolism. She had a pharmacological nuclear stress test done on 07/23/23 showing normal myocardial perfusion imaging, EF 62% No known history of CAD. Cardiac risk factors of hypertension, diabetes, morbid obesity. Continue with risk factor modification. Signs and symptoms of angina reviewed with her. She is not on aspirin as she is on Eliquis. She is on atorvastatin and metoprolol. Cardiology follow-up p.r.n.. Plan Time spent on chart review, document, interview, assessment Coding Level of Care Code Est Pt Level 4 (11561) Complex EM visit Add On G2211 Diagnoses Multiple subsegmental pulmonary emboli without acute cor pulmonale I26.94 Pulmonary embolism type: multiple subsegmental (without acute cor pulmonale) Acute deep vein thrombosis (DVT) of left lower extremity, unspecified vein I82.402 DVT location: lower extremity Affected thrombotic vein of extremity: unspecified vein of extremity Chronicity: acute Laterality: left NSTEMI (non-ST elevation myocardial infarction) I21.4 Time Spent (min) 28
--- OUTSIDE RECORDS SUMMARY | 2024-12-28 14:07 | XMS_ITS | Clinical Summary ---
Author Organization [facility] Address [address] [place] [address] Care Team Providers Care Washing Machine Loader Name Role Phone Milan Mcgraw Primary Care Provider [phone] Allergies No known active allergies Medications Medication [...] from 02/19/2022:Stage IA(pT1c, pN1, cM0, G2, ER+, SC+, HER2-) - Signed by Tiffany Villavicencio MD [...] 82 02/19/2024 2:10 PM EDT Temperature 36.2 C (97.2 F) 02/19/2024 2:10 PM EDT Respiratory Rate - - Oxygen Saturation 99% [...] 1-dose 75+ series) 2023 Influenza Vaccine (#1) 2025 Hepatitis B Vaccines Aged Out No long er eligible based on patient's age to complete this topic RSV Ped < 20 months Aged Out No longe r eligible based on patient's age to complete this topic Care Teams Washing Machine Loader Relationship Specialty Start Date End Date Milan Mcgraw PA [address] [place] [address] [phone] PCP - General Physician Overhead Crane Operator 06/05/23
--- OUTSIDE RECORDS SUMMARY | 2024-12-28 14:07 | XMS_ITS | Patient Health Record ---
Author Organization [facility] Address [address] [place] [address] Care Team Providers Care Mammography Tech Name Role Phone Milan Mcgraw Primary Care Provider Unavailab Chinedu Hfof Unavailable [phone] Reason For Referral No Information Medications Medication [...] Problem Status W/U Status Risk Notes Problem 902273653 Encounter for screening for malignant neoplasm of colon (Z12.11) Active confirmed Problem 499726429 Irritable bowel syndrome with diarrhea (K58.0) Active confirmed Problem 754484320 Gastroesophageal reflux disease without esophagitis (K21.9) Active confirmed Problem 039695453 Family history o f colon cancer (Z80.0) Active confirmed Plan Of Treatment Future Test Test Name Order Date UPPER GI ENDOSCOPY 11/02/2014 COLONOSCOPY 11/02/2014 COLONOSCOPY 11/25/2019 Next Appt Details Provider Name:Chinedu Kat , 03/02/2025 11:10:00 AM, [address] [place] [address], [address], [place], [address], Insurance Providers Payer Name Payer Address Payer Phone Subscriber Number Group Number Insured Name Patient Relationship to Insured Coverage Start Date Coverage End Date [facility] [address] [place] [phone] [id number] ANA CRISTINA LOZANO Self - patient is the insured [facility] [address] [place] [address] [id number] ANA CRISTINA LOZANO Self - patient is the insured Medical (General) History Medical History History ICD Code Breast cancer on the right w ith surgery as below; left breast with precancerous cells and had XRT only Denies AR,DM,CVA,renal disease Depression/Anxiety Asthma Back pain GERD--EGD in [...]
--- OUTSIDE RECORDS SUMMARY | 2024-12-28 14:07 | XMS_ITS | Clinical Summary ---
Author Organization [facility] Address [address] [place] [phone] Phone Care Team Providers Care Answering Service Agent Name Role Phone Milan Mcgraw Primary Care [...] TABS BY MOUTH AT BEDTIME 3 Active apixaban (Eliquis) 5 mg tablet Take 1 tablet (5 mg total) by mouth 2 (two) times a day. for 30 days 4 Active aspirin 81 mg chewable tablet Chew 1 tablet (81 mg total) by mouth every night at bedtime. 3 Active atorvastatin (LIPITOR) 20 mg tablet Take 1 tablet (20 mg total) by mouth every night at bedtime. 4 Active cholecalcifero l (VITAMIN D-3) 50 mcg (2,000 unit) capsule 4 Active cyclobenzaprin e (FLEXERIL) 5 mg tablet TAKE 2 TABLETS ORALLY 3 TIMES A DAY NEEDED FOR FOR MUSCLE SPASM 4 Active dicyclomine (BENTYL) 10 mg capsule 4 Active fluticasone furoate-vilant Anat (Breo Ellipta) 200-25 mcg/dose inhaler 4 Active [...] TABLETS BY MOUTH AT BEDTIME 3 Active letrozole (FEMARA) 2.5 mg tablet Take 1 tablet (2.5 mg total) by mouth 1 (one) time each day Take with or without food.Take 1 tablet (2.5 mg total) by mouth daily for 30 days 90 tablet 3 5 09/23/19 26 Active abemaciclib (Verzenio) 100 mg tablet TAKE 1 TABLET BY MOUTH DAILY 30 tablet 5 5 Active abemaciclib (VERZENIO) 100 mg tablet Take 100 mg by mouth daily 30 tablet 5 5 12/08/19 25 Discontinued Active Problems Problem Noted Date Diagnosed Date [...] Encounters Date Type Department Care Team Description 11/23/2024 11:15 AM EDT Office Visit [facility] Hematology Oncology [address] [place] [address] Tiffany Nava MD Malignant neoplasm of overlapping sites of left breast in female, estrogen receptor positive (CMS/HCC V24, CMS/HCC V28) (Primary Dx); Cancer, 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 ([facility]/HCC V24, CMS/HCC V28); Chest pain on breathing; Weight loss from Last 3 Months Surgical History Surgery Date Site/Laterality Comments MASTECTOMY PROCEDURE:MASTECTOMY APPENDECTOMY PROCEDURE:APPENDECTOMY CHOLECYSTECTOMY PROCEDURE:CHOLECYSTECTOMY COLONOSCOPY PROCEDURE:COLONOSCOPY Medical History Medical History Date Comments Breast cancer ([facility] V24, [facility] V28) DX:Breast cancer (HCC) Hypertension DX:Hypertension COPD [...] Sign Reading Time Taken Comments Blood Pressure 140/86 11/23/2024 11:26 AM EDT Pulse 73 11/23/2024 11:26 AM EDT Temperature 36.2 C (97.2 F) 11/23/2024 11:26 AM EDT Respiratory Rate - - Oxygen Saturation 99% 11/23/2024 11:26 AM EDT Inhaled Oxygen Concentration - - Weight 76.2 kg (168 lb) 11/23/2024 11:26 AM EDT Height 147.3 cm (4' 10 ) 07/22/2024 11:46 AM EST Body Mass Index 35.11 07/22/2024 11:46 AM EST Plan of Treatment Upcoming Encounters Date Type Department Care Team (Late st Contact Info) Description 01/21/2025 9:00 AM EDT Appointment [facility] Nuclear Medicine [address] [place] [address] 01/21/2025 11:15 AM EDT Office Visit [facility] Hematology Oncology [address] [place] [address] Tiffany Nava MD [address] [place] [address] 01/21/2025 12:00 PM EDT Appointment [facility] Nuclear Medicine [address] [place] [address] 01/21/2025 1:00 PM EDT Appointment [facility] CT Scan [address] [place] [address] Health Maintenance Due Date Last Done Comments Zoster Vaccines (1 of 2) 1969 RSV Immunization Adult Patients (1 - 1-dose 75+ series) 2023 Falls Risk Assessment 12/17/2023 Hepatitis C Screening 12/17/2023 Medicare Annual Wellness Visit 12/17/2023 Osteoporosis Screening (Bone Density Screening) 12/17/2023 Social Influencers of Health Screening 12/17/2023 COVID-19 Vaccine ( season) 2024 07/15/2021, 08/16/2020, 07/19/2020 Depression Screening 05/27/2024 Influenza Vaccine (#1) 2025 4, 02/16/2022, 02/13/2021, Additional history exists DTaP,Tdap,and Td Vaccines (2 - Td or Tdap) 03/28/2030 03/28/2020 Pneumococcal Vaccine: 50+ Years Completed 02/16/2022, 03/28/2020 HIB Vaccines Aged Out No longer eligi [...] on patient's age to complete this topic Insurance [facility] MEDICARE Member Subscriber Plan / Payer (Ef fective 2014-Present) Name:Beatriz Herbert Relation to Subscriber:Self Name:Beatriz Herbert Payer ID:[id number] Group ID:[id number] Type:Not on file Address: [place] [address] [address] [phone] Care Teams Answering Service Agent Relationship Specialty Start Date End Date Milan Mcgraw PA [address] [place] [phone] [facility] - General 06/05/23
== END 2024-12-28 14:32 | disposition home or self-care (01) ==
LOC: HO.HCS 13:57
PROVIDERS: PCP Physician Assistant; Visit Provider Nurse Practitioner Family
DX: I26.94 Multiple subsegmental thrombotic pulmonary emboli without acute cor pulmonale (principal); I82.402 Acute embolism and thrombosis of unspecified deep veins of left lower extremity; I21.4 Non-ST elevation (NSTEMI) myocardial infarction
CPT/HCPCS: 99214; G2211

== ENCOUNTER → 2024-12-28 13:56 | Outpatient (BNVA) | payer OTHER, SELFPAY | PROVIDERS: PCP Physician Assistant; Visit Provider Nurse Practitioner Family | DX: I26.94 Multiple subsegmental thrombotic pulmonary emboli without acute cor pulmonale (principal); I21.4 Non-ST elevation (NSTEMI) myocardial infarction; I82.402 Acute embolism and thrombosis of unspecified deep veins of left lower extremity; I26.99 Other pulmonary embolism without acute cor pulmonale | CPT/HCPCS: 99212 ==

== ENCOUNTER 2024-12-31 12:51 | Outpatient (AMB) | payer OTHER, SELFPAY ==
--- NOTE | 2024-12-31 12:52 | A.OFFVIS_ITS ---
Vital Signs 12/31/24 13:01 Height 4 ft 11 in Weight 164 lb BMI 33.1 BP 146/86 H Blood Pressure Location Lt brachial Position Sitting Pulse 76 Intake Visit Reasons: 6 month breast exam Intake Note: Patient is seen in office breast exam. Pt c/o:chest feels tight specially at night time and around the ribs Linux Solaris Administrator Required: Yes Linux Solaris Administrator Language: Manager Credit Collections Services: Linux Solaris Administrator Offered & Declined (daughter Cornelia interpreting) Accompanied by: Daughter Allergies No Known Allergies (No Known Allergies*) Allergy (Verified 12/31/24 13:08) HPI Comments Details: 74-year-old female patient returning following bilateral mastectomies for a recurrent right breast cancer. 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 Quezada. She noted bilateral palpable lumps on self examination including the 9 o'clock position of the right breast just lateral to the nipple-areolar complex. The lump is tender to palpation. Second area in the upper outer quadrant of the left breast was also identified on self examination. The lesion of the right breast was confirmed on mammogram dated 01/26/2022. Subsequent ultrasound revealed a suspicious density in the right breast in the 9 o'clock position measuring just under 1.5 cm in diameter. Findings were felt to be suspicious for malignancy and biopsy recommended. Ultrasound-guided core biopsy performed on 01/31/2022 at the [facility] revealed invasive carcinoma with mixed lobular and ductal features, grade 2, ER/KY positive, HER2 Smooth negative, Ki-67 30% (high proliferation index). She denies nipple discharge, skin redness, skin dimpling or enlarged lymph nodes. Menarche was at the age of 9. She is and underwent TAHBSO in the 80s. Family history is significant for a daughter, and 2 sisters with breast cancer. At the patient's request she underwent a right modified radical mastectomy and left simple mastectomy. Pathology revealed: A.? Breast, right, modified radical mastectomy: - Invasive carcinoma with ductal and lobular features, MSBR grade 3, 1.4 cm in size; margins negative. - Metastatic carcinoma present in 1 of 4 lymph nodes examined. - Skin with scar; biopsy site changes. - pT1c N1 (AJCC Stage 8th ed.). B.? Breast, left, simple mastectomy: - Lobular carcinoma in-situ; negative for invasive carcinoma. - Background fibrocystic changes, adenosis and calcifications. - Benign skin and nipple. - Three lymph nodes with reactive changes. Patient underwent excision of a melanotic lesion of the right chest wall on 06/04/2023. This revealed recurrent breast cancer. She was evaluated at [facility] and started on letrozole 2.5 mg daily. She was also started on Verzenio which he is tolerating well. She subsequently underwent wide excision of this recurrent breast cancer on 08/14/2023. She mainly complains of tightness in the left chest with occasional stinging pain. She otherwise feels improved. 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 Depression Arthritis IBS (irritable bowel syndrome) GERD (gastroesophageal reflux disease) Recurrent malignant neoplasm of right breast HTN (hypertension) Traumatic complete tear of right rotator cuff Surgical History Hx of excision of mass (08/14/23) History of excision of lesion (05/30/23) S/P bilateral mastectomy History of bilateral mastectomy (02/19/22) Hx of cholecystectomy Hx of appendectomy Hx of blepharoplasty History of esophagogastroduodenoscopy (EGD) History of lumpectomy of both breasts History of surgery History of colonoscopy S/P ANDRÉS-BSO (total abdominal hysterectomy and bilateral salpingo-oophorectomy) History of lumbar fusion Family History Father Heart problem Mother Heart disease Hypertension Colon cancer Epilepsy Maternal Grandmother Esophageal cancer Daughter Breast cancer Brother Lung cancer Sister Breast cancer Sister Breast cancer, Onset Age: 60 Sister COVID Daughter Acute kidney failure Social History Household Members: None Housing: Apartment Are you a primary hospice home care coordinator to a significant other at home: No Do you presently have visiting nurse or other home services: No Alcohol intake: never Comment: counts correct Patient Tobacco Use Status: Never used Tobacco e-Cigarette/Vaping Use: Never Used Second Hand Smoke Exposure: No Advance Directives Date on File: 06/13/23 service: No Current occupational status: disabled 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) Hearing needs: No Vision needs: Yes Female Reproductive History Menstrual Age of Menarche: 9 Review of Systems Const All systems reviewed & are unremarkable except as noted in HPI and below Neuro Reports confusion Psych Reports confusion Physical Exam Vital Signs: Last Vital Signs Pulse 76 12/31/24 13:01 BP 146/86 H 12/31/24 13:01 BMI result Body Mass Index 33.1 Const General: confusion Nutritional Appearance: well nourished Orientation/consciousness: confusion Chest Other: Bilateral breast incisions are clean, dry and intact without any palpable mass or new skin changes. No significant extra skin is noted in the right chest. There is redundant skin in the left chest. Resp Effort & Inspection: normal respiratory effort Skin General skin exam: no rashes or lesions noted Neuro General: confusion Extrem General: Yes full ROM and No edema Assessment & Plan Assessment & Plan (1) Recurrent cancer of right breast: Code(s): C50.911 - Malignant neoplasm of unspecified site of right female breast Category: Medical Plan 74-year-old female patient status post bilateral mastectomy for right breast recurrent cancer complicated by a skin recurrence. Her wounds are clean and intact with no evidence of recurrent skin recurrence. No evidence of local recurrence at this time. She will return in 6 months for follow-up examination. Coding Level of Care Code Est Pt Level 3 (41376) Complex EM visit Add On G2211 Diagnoses Recurrent cancer of right breast C50.911
--- OUTSIDE RECORDS SUMMARY | 2024-12-31 12:54 | XMS_ITS | Clinical Summary ---
Author Organization 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 ([facility]/HCC V24, CMS/HCC V28); Chest pain on breathing; Weight loss from Last 3 Months Surgical History Surgery Date Site/Laterality Comments MASTECTOMY PROCEDURE:MASTECTOMY APPENDECTOMY PROCEDURE:APPENDECTOMY CHOLECYSTECTOMY PROCEDURE:CHOLECYSTECTOMY COLONOSCOPY PROCEDURE:COLONOSCOPY Medical History Medical History Date Comments Breast cancer ([facility] V24, [facility] V28) DX:Breast cancer (HCC) Hypertension DX:Hypertension COPD [...] Info) Description 01/21/2025 9:00 AM EDT Appointment [facility] Nuclear Medicine [address] [place] [address] 01/21/2025 11:15 AM EDT Office Visit [facility] Hematology Oncology [address] [place] [address] Tiffany Nava MD [address] [place] [address] 01/21/2025 12:00 PM EDT Appointment [facility] Nuclear Medicine [address] [place] [address] 01/21/2025 1:00 PM EDT Appointment [facility] CT Scan [address] [place] [address] Health Maintenance Due Date Last Done Comments [...] patient's age to complete this topic Insurance [facility] MEDIC[facility] Member Subscriber Plan / Payer (Ef fective 2014-Present) Name:Beatriz Herbert Relation to Subscriber:Self Name:Beatriz Herbert Payer ID:[id number] Group ID:[id number] Type:Not on file Address: [place] [address] [address] [phone] Care Teams Heel Turner Relationship Specialty Start Date End Date Milan Mcgraw PA [address] [place] [phone] [facility] - General 06/05/23
--- OUTSIDE RECORDS SUMMARY | 2024-12-31 12:54 | XMS_ITS | Patient Health Record ---
Author Organization [facility] Address [address] [place] [address] Care Team Providers Care Phototypesetter Operator Name Role Phone Milan Mcgraw Primary Care Provider Unavailab Chinedu Hoff Unavailable [phone] Reason For Referral No Information Medications Medication [...] Problem Status W/U Status Risk Notes Problem 538142067 Encounter for screening for malignant neoplasm of colon (Z12.11) Active confirmed Problem 568991077 Irritable bowel syndrome with diarrhea (K58.0) Active confirmed Problem [id number] Gastroesophageal reflux disease without esophagitis (K21.9) Active confirmed Problem 852010465 Family history o f colon cancer (Z80.0) Active confirmed Plan Of Treatment Future Test Test Name Order Date UPPER GI ENDOSCOPY 11/02/2014 COLONOSCOPY 11/02/2014 COLONOSCOPY 11/25/2019 Next Appt Details Provider Name:Chinedu Kat , 03/02/2025 11:10:00 AM, [address] [place] [address], [address], [place], [address], Insurance Providers Payer Name Payer Address Payer Phone Subscriber Number Group Number Insured Name Patient Relationship to Insured Coverage Start Date Coverage End Date [facility] [address] [place] [address] [phone] [id number] ANA CRISTINA LOZANO Self - patient is the insured MEDICAID [facility] [address] [place] [address] [id number] ANA CRISTINA LOZANO Self - patient is the insured Medical (General) History Medical History History ICD Code Breast cancer on the right w ith surgery as below; left breast with precancerous cells and had XRT only Denies MS,DM,CVA,renal disease Depression/Anxiety Asthma Back pain GERD--EGD in [...]
--- OUTSIDE RECORDS SUMMARY | 2024-12-31 12:54 | XMS_ITS | Clinical Summary ---
Author Organization [facility] Address [address] [place] [address] Care Team Providers Care Ski Patrol Director Name Role Phone Milan Mcgraw Primary Care Provider [phone] Allergies No known active allergies Medications Medication [...] from 02/19/2022:Stage IA(pT1c, pN1, cM0, G2, ER+, MD+, HER2-) - Signed by Tiffany Villavicencio MD [...] age to complete this topic Care Teams Ski Patrol Director Relationship Specialty Start Date End Date Milan Mcgraw PA [address] [place] [phone] PCP - General Physician Web Ui Software Engineer 06/05/23
[2024-12-31 13:01] VITALS: BP 146/86; PULSE 76; BMI 33.1
== END 2024-12-31 13:10 | disposition home or self-care (01) ==
LOC: HO.HGS 12:52
PROVIDERS: PCP Physician Assistant; Visit Provider Surgery
DX: C50.911 Malignant neoplasm of unspecified site of right female breast (principal)
CPT/HCPCS: 99213; G2211

== ENCOUNTER → 2024-12-31 12:51 | Outpatient (BNVA) | payer OTHER, SELFPAY | PROVIDERS: PCP Physician Assistant; Visit Provider Surgery | DX: Z90.13 Acquired absence of bilateral breasts and nipples (principal); Z98.890 Other specified postprocedural states; Z80.3 Family history of malignant neoplasm of breast; N64.4 Mastodynia | CPT/HCPCS: 99212 ==

== ENCOUNTER → 2025-01-12 23:59 | Outpatient (BNV) | payer OTHER, SELFPAY | PROVIDERS: PCP Physician Assistant; Visit Provider Physician Assistant | DX: F03.90 Unspecified dementia, unspecified severity, without behavioral disturbance, psychotic disturbance, mood disturbance, and anxiety (principal); F32.A Depression, unspecified | CPT/HCPCS: G0179 ==

== ENCOUNTER 2025-02-08 10:44 | Outpatient (AMB) | payer OTHER, SELFPAY ==
--- NOTE | 2025-02-08 10:57 | A.OFFPC_ITS ---
Vital Signs 02/08/25 10:58 Height 4 ft 11 in Weight 161 lb 8 oz BMI 32.6 BP 132/72 Blood Pressure Location Lt femoral Position Sitting Pulse 57 Pulse Source Pulse Oximeter Temp 97.3 F Temp Source Temporal Artery Scan Pulse Oximetry (%) 98 Oxygen Delivery Method Room Air Intake Visit Reasons: f/u DMII/ Pain managment. Intake Note: Patient is here to follow up on DM, Pain Management. Management Engineer Required: Yes Management Engineer Language: [employer] Special Agent Name: Cornelia(daughter) Information Interpreted: non-clinical & clinical (Pt decline community relations coordinator service prefer daughter to translate) Conveyor Line Battery Charger: Present Accompanied by: Daughter Allergies mirtazapine (From Remeron) Allergy (Intermediate, Verified 02/08/25 11:18) Hallucinations Medication List - Last Reconciled 02/08/25 by Milan Mcgraw PA-C abemaciclib (Verzenio) 100 mg PO DAILY acetaminophen 325 mg PO Q6H PRN 30 days albuterol sulfate 2.5 mg (3 mL) inhalation Q6H PRN 30 days amitriptyline 10 mg PO BEDTIME 90 days apixaban (Eliquis) 5 mg PO BID 90 days blood sugar diagnostic (FreeStyle Lite Strips) As directed blood-glucose meter (FreeStyle Lite Meter kit) As directed budesonide-formoterol 80-4.5 mcg/actuation 2 puffs PO BID chair, wheel (Wheel chair) Need for transfer wheelchair chair, wheel (Wheel chair) As directed cholecalciferol (vitamin D3) (Vitamin D3) 50 mcg PO DAILY cyclobenzaprine 10 mg PO TID PRN diaper,brief,adult,disposable (Protective Underwear Ex-Large) 2xl size Briefs. diclofenac sodium 1% 2 grams topical BID PRN dicyclomine 20 mg (2 x 10 mg) PO QID 30 days donepezil 5 mg PO DAILY 30 days escitalopram oxalate 5 mg PO DAILY PRN estradiol 0.01%(0.1mg/gram) 1 g vaginal 3XW 90 days fluticasone furoate-vilanterol 200-25 mcg/dose (Breo Ellipta) 1 inh inhalation DAILY 30 days furosemide (Lasix) 20 mg PO DAILY PRN gabapentin 800 mg PO TID 90 days ibuprofen 800 mg PO Q6H PRN incontinence pad, liner, disp As directed lancets (FreeStyle Lancets) As directed letrozole 2.5 mg PO DAILY memantine 28 mg PO DAILY 30 days metoprolol tartrate 50 mg PO BID miscellaneous medical supply (Blood Pressure Cuff) As directed naloxone 4 mg/actuation (Narcan) 4 mg intranasal Q2M 30 days nebulizers (AeroEclipse II Nebulizer) As directed nebulizers As directed oxycodone 15 mg PO Q8H 28 days semaglutide (Ozempic) 1 mg (0.75 mL) subcut QWEEK 4 weeks simvastatin 10 mg PO DAILY 90 days trazodone 200 mg (2 x 100 mg) PO BEDTIME 90 days Tobacco use date assessed: 02/08/25 Fall risk assessment: No Falls in past year Last assessed Fall Risk: 02/08/25 Dental Screening Dental Screen Date: 10/09/24 HPI f/u DMII/ Pain managment. HPI Details Patient is a 74-year-old female here today for follow-up visit. Today she presents with her daughter whom gives most of the history.. Patient's past medical history significant for type 2 diabetes, chronic lumbar spine pain, history of breast cancer and is status post bilateral total mastectomy, DVT and bilateral pulmonary embolism(now on Eliquis) major depressive disorder, mild cognitive impairment. .. DMII: Patient's type 2 diabetes fairly controlled on current dose of metformin. A1c appropriate today at 5.7. Will hold off on her glyburide due to fears of pancreatic burnout.. She continues on Ozempic 0.5 mg. She is interested in increasing her dose to 1 mg Ozempic lately for more weight loss and glycemic control. . . Breast cancer: Is status post bilateral total mastectomy, recently had cyst biopsy which did show recurrent carcinoma. She continues on pain management with oxycodone 15 mg t.i.d. for cancer related pain. She is followed by Oncology at [facility]. She has had a bone scan that did not show any metastatic disease. She continues to be treated by [facility] Oncology Unfortunately patient reports continued pain in her mastectomy sites along with continued lower lumbar spine and cervical spine pain. Laboratory Tests 08/17/22 09/13/22 01/16/23 13:48 11:45 13:49 RBC 4.34 Hgb Creatinine Random Glucose 136 H 118 H Fasting Glucose Hgb A1c (Clinic) 6.7 H Cholesterol LDL Cholesterol, C alc TSH Leukocyte Esterase (Auto) Ur Leukocyte Reina ase 04/22/23 05/30/23 06/18/23 12:30 12:20 08:58 RBC 4.40 Hgb Creatinine 1.17 Random Glucose 124 H 138 H Fasting Glucose Hgb A1c (Clinic) 7.2 H Cholesterol LDL Cholesterol, C alc TSH 1.18 Leukocyte Esterase (Auto) Ur Leukocyte Reina ase 09/09/23 09/19/23 01/30/24 16:03 09:53 07:31 RBC 4.49 3.61 L Hgb 11.2 L Creatinine 1.40 1.58 H Random Glucose Fasting Glucose Hgb A1c (Clinic) Cholesterol 169 LDL Cholesterol, C alc 93 TSH Leukocyte Esterase (Auto) 500 Ur Leukocyte Reina ase 06/29/24 06/29/24 10/27/24 14:53 14:58 11:32 RBC 3.82 L Hgb 12.4 Creatinine 1.55 H Random Glucose Fasting Glucose 106 H Hgb A1c (Clinic) 6.2 H Cholesterol 163 LDL Cholesterol, C alc TSH Leukocyte Esterase (Auto) Ur Leukocyte Reina ase Large (3+) H PFSH Medical History Pulmonary emboli Dementia COVID-19 NSTEMI (non-ST elevation myocardial infarction) Elevated troponin Hyperkalemia Sleep apnea Elevated cholesterol Pulmonary hypertension Pneumonitis Asthma Lobular carcinoma in situ 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 Depression Arthritis IBS (irritable bowel syndrome) GERD (gastroesophageal reflux disease) Recurrent malignant neoplasm of right breast HTN (hypertension) Traumatic complete tear of right rotator cuff Surgical History Hx of excision of mass (08/14/23) History of excision of lesion (05/30/23) S/P bilateral mastectomy History of bilateral mastectomy (02/19/22) Hx of cholecystectomy Hx of appendectomy Hx of blepharoplasty History of esophagogastroduodenoscopy (EGD) History of lumpectomy of both breasts History of surgery History of colonoscopy S/P ANDRÉS-BSO (total abdominal hysterectomy and bilateral salpingo-oophorectomy) History of lumbar fusion Family History Father Heart problem Mother Heart disease Hypertension Colon cancer Epilepsy Maternal Grandmother Esophageal cancer Daughter Breast cancer Brother Lung cancer Sister Breast cancer Sister Breast cancer, Onset Age: 60 Sister COVID Daughter Acute kidney failure Social History Household Members: None Housing: Apartment Are you a primary daycare director to a significant other at home: No Do you presently have visiting nurse or other home services: No Alcohol intake: never Comment: counts correct Patient Tobacco Use Status: Never used Tobacco e-Cigarette/Vaping Use: Never Used Second Hand Smoke Exposure: No Advance Directives Date on File: 06/13/23 service: No Current occupational status: disabled 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) Hearing needs: No Vision needs: Yes Female Reproductive History Menstrual Age of Menarche: 9 Questionnaire Thrive Questionnaire Date Thrive assessed: 10/27/24 I am a: Patient What is your living situation today?: I have a steady place to live Within the past 12 months, did the food you bought not last and you didn't have the money to get more?: Sometimes True Within the past 12 months, did you worry whether your food would run out before you got money to buy more?: Sometimes True Do you have trouble paying for medicines?: No Do you have trouble getting transportation to medical appointments?: No Do you have trouble paying your heating and electricity bill?: No Do you have trouble taking care of your child, family member or friend?: No Do you have trouble with day-to-day activities such as bathing, preparing meals, shopping, managing finances, etc.?: No Are you currently unemployed and looking for a job?: No Are you interested in more education?: No Please select the resources that you would like help with: None Currently or been in a relationship where the following occur: No concerns reported THRIVE Score: 2 OLAYINKA-7 AMB Questionnaire OLAYINKA-7 Date OLAYINKA - 7 assessed: 10/27/24 Source: Developed by Drs. Chinedu Romero, Rosemarie Ballard, Mina Lanier and colleagues, with an educational luis fernando from [employer]. Review of Systems Const Denies headache(s) Eyes Denies loss of vision ENT Denies vertigo, Denies dizziness, Denies headache(s) and Denies sore throat Card Denies chest pain, Denies leg edema and Denies lightheadedness Resp Denies cough, Denies hemoptysis and Denies wheezing GI Denies abdominal pain, Denies melena, Denies constipation, Denies diarrhea and Denies vomiting Denies urinary frequency, Denies dysuria and Denies urinary urgency Musc Denies arthralgias, Denies joint swelling, Denies numbness and Denies tingling Neuro Denies Abnormal speech present, Denies behavioral changes, Denies vertigo, Denies dizziness, Denies headache(s), Denies loss of vision, Denies memory loss, Denies numbness and Denies tingling Psych Denies anxiety, Denies behavioral changes, Denies depression, Denies memory loss and Denies panic attacks Neo/Lymph Denies easy bleeding and Denies easy bruising Aller/Immun Denies wheezing Physical exam (Primary Care) Vital Signs: Last Vital Signs Temp 97.3 F 02/08/25 10:58 Pulse 57 02/08/25 10:58 BP 132/72 02/08/25 10:58 Pulse Ox 98 02/08/25 10:58 Oxygen Delivery Method Room Air 02/08/25 10:58 BMI result Body Mass Index 32.6 Tobacco/Smoking Status: Tobacco use Status Tobacco use date assessed 02/08/25 02/08/25 11:04 Patient Tobacco Use Status Never used Tobacco 02/08/25 11:04 e-Cigarette/Vaping Use Never Used 02/08/25 11:04 Thrive Assessment: Date of Thrive Assessment Date Thrive assessed 10/27/24 02/08/25 11:04 Currently or been in a relationship where the following occur: No concerns reported Const General: healthy appearing, no acute distress, alert and awake Nutritional Appearance: well nourished Orientation/consciousness: oriented to person, oriented to place and oriented to time HENMT Ears: TM's normal bilaterally General nose exam: Normal nasal mucous membranes and turbinates present Eyes Conjunctivae: conjunctivae normal Sclerae: sclerae normal Pupils: Equal, round and reactive pupils present Neck Neck: Yes no lymphadenopathy and Yes no JVD Thyroid: Thyroid normal Carotids: no bruits Resp Effort & Inspection: normal respiratory effort and not tachypneic Auscultation: no crackles, no rales, no rhonchi and no wheezes Cardio Rate: regular rate Rhythm: regular rhythm Heart sounds: no murmurs and normal S1 and S2 GI Palpation (GI): Soft to palpation, nontender, no hepatomegaly and no splenomegaly Auscultation: normal bowel sounds Skin General skin exam: no rashes or lesions noted and dry skin Neuro General: oriented to person, oriented to place and oriented to time Cranial nerves: Yes Equal, round and reactive pupils present Speech: No Abnormal speech present Gait exam (Neuro): Normal gait present Motor exam (neuro): no tremor noted Extrem Right upper extremity: full ROM Left upper extremity: full ROM Right lower extremity: full ROM; no edema Left lower extremity: full ROM; no edema Psych Mental Status: mental status grossly normal Speech and movement: Normal speech and movement present Affect: normal affect Attitude: cooperative Thought process: Normal thought process present Results AMB Hemoglobin A1c AMB Hemoglobin A1c 5.9 % Last Edit by ROC Mccord on 02/08/25 11:24 Results Reviewed Results Reviewed: Laboratory Last Values Hgb A1c (Clinic) 5.9 % (4.0-6.0) 02/08/25 10:59 Coding Level of Care Code Est Pt Level 4 (57204) Diagnoses Type 2 diabetes mellitus with hyperglycemia, without long-term current use of insulin E11.65 Diabetes mellitus terminal computer operator insulin use: without fdc use Diabetes mellitus complication status: with hyperglycemia Colon cancer screening Z12.11 Essential hypertension I10 Hypertension type: essential hypertension Recurrent malignant neoplasm of right breast C50.911 Uncomplicated opioid dependence F11.20 Substance use status: uncomplicated Mixed hyperlipidemia E78.2 Hyperlipidemia type: mixed hyperlipidemia Assessment & Plan Assessment & Plan (1) DMII (diabetes mellitus, type 2): Code(s): E11.9 - Type 2 diabetes mellitus without complications Category: Medical Qualifiers: Diabetes mellitus terminal computer operator insulin use: without terminal computer operator use Diabetes mellitus complication status: with hyperglycemia Qualified Code(s): E11.65 - Type 2 diabetes mellitus with hyperglycemia Plan: Patient's type 2 diabetes well controlled. Will continue her Ozempic at current dose. . Will continue her current dose of antihyperglycemic medication with goal A1c to remain below 7.0 (2) Colon cancer screening: Code(s): Z12.11 - Encounter for screening for malignant neoplasm of colon Category: Medical Plan: Patient in need of a screening colonoscopy, is also requesting upper endoscopy (3) HTN (hypertension): Code(s): I10 - Essential (primary) hypertension Category: Medical Qualifiers: Hypertension type: essential hypertension Qualified Code(s): I10 - Essential (primary) hypertension Plan: Patient's blood pressure acceptable today in office. Will continue her current dose of antihypertensive medication with goal blood pressure to be below 140 over 90. (4) Recurrent malignant neoplasm of right breast: Code(s): C50.911 - Malignant neoplasm of unspecified site of right female breast Category: Medical Plan: Patient followed by Oncology with no recent reoccurrence of her breast neoplasm. Had a bone scan in November of 2023 that did not show any metastatic disease. Patient does use oxycodone 15 mg Q 8 hours for her cancer related breast pain and lower back pain (5) Opiate dependence: Code(s): F11.20 - Opioid dependence, uncomplicated Category: Medical Qualifiers: Substance use status: uncomplicated Qualified Code(s): F11.20 - Opioid dependence, uncomplicated Plan: Patient continues on a fairly moderate dose of oxycodone for cancer related pain though was on pain medication previously. She does have opiate dependency. (6) HLD (hyperlipidemia): Code(s): E78.5 - Hyperlipidemia, unspecified Category: Medical Qualifiers: Hyperlipidemia type: mixed hyperlipidemia Qualified Code(s): E78.2 - Mixed hyperlipidemia Plan: Patient has been statin therapy for many many years, has recently been taken off due to a acute episode rhabdomyolysis likely secondary to being on the floor over 8 hours. Will restart a low potency statin to help reduce her cardiovascular risk and continue to follow liver functions. Goal LDL to be below 100 Orders: Orders AMB Hemoglobin A1c Today Z13.9 - Encounter for screening, unspecified Referrals Gastroenterology Referral Z12.11 - Encounter for screening for malignant neoplasm of colon Medications: Refilled oxycodone Partial Fill upon patient request. 15 mg PO Q8H 84 tabs 0RF pain 28 days G95.9 - Disease of spinal cord, unspecified, M54.12 - Radiculopathy, cervical region, Z90.13 - Acquired absence of bilateral breasts and nipples
[2025-02-08 10:58] VITALS: BP 132/72; PULSE 57; TEMP 36.3; O2SAT 98; BMI 32.6
--- OUTSIDE RECORDS SUMMARY | 2025-02-08 13:58 | XMS_ITS | Clinical Summary ---
Author Organization [facility] Address [address] [place] [phone] Phone Care Team Providers Care Customer Operations Representative Name Role Phone Milan Mcgraw Primary Care [...] TABS BY MOUTH AT BEDTIME 05/10/2023 Active apixaban (Eliquis) 5 mg tablet Take [...] 30 days 90 tablet 3 09/22/2024 Active abemaciclib (Verzenio) 100 mg tablet TAKE 1 TABLET BY MOUTH DAILY 30 tablet 5 12/07/2024 Active Active Problems Problem Noted Date Diagnosed Date Chest pain on breathing 11/27/2023 Cancer, 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 ([facility] V24, [facility] V28) 10/01/2023 Acute cystitis without hematuria 09/16/2023 Weight loss 09/16/2023 Lymphedema of right arm 06/19/2023 Malignant neoplasm of left f emale breast (CMS/HCC V24, CMS/HCC V28) 06/19/2023 Malignant neoplasm of upper- outer quadrant of right female breast ([facility] V24, [facility] V28) 06/19/2023 Overview (02/20/2024): Most recent diagnosis 01/2022, on tamoxifen, stopped due to PE, followed by letrozole started by Dr. Jaramillo on 02/06/2023. Multiple subsegmental pulmon juani emboli without acute cor pulmonale (CMS/HCC V24, CMS/HCC V28) 06/19/2023 Overview (02/20/2024): on Tamoxifen Osteopenia of multiple sites 06/19/2023 Vitamin D deficiency 06/19/2023 Encounters Date Type Department Care Team Description 01/21/2025 12:00 PM EDT - 01/21/2025 11:59 PM EDT Hospital Encounter [facility] Nuclear Medicine [address] [place] [phone] Discharge Disposition: Home or Self Care 01/21/2025 11:15 AM EDT Office Visit [facility] Hematology Oncology [address] [place] [phone] Tiffany Orellana MD Malignant neoplasm of upper-outer quadrant of right breast in female, estrogen receptor positive (CMS/HCC V24, CMS/HCC V28) (Primary Dx); Cancer, 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 (CMS/HCC V24, CMS/HCC V28); Osteopenia of multiple sites; Multiple subsegmental pulmonary emboli without acute cor pulmonale (CMS/HCC V24, CMS/HCC V28); Vitamin D deficiency 01/21/2025 9:03 AM EDT - 01/21/2025 11:59 PM EDT Hospital Encounter [facility] CT Scan [address] [place] [phone] Malignant neoplasm of overlapping sites of left breast in female, estrogen receptor positive (CMS/HCC V24, CMS/HCC V28) Discharge Disposition: Home or Self Care 01/21/2025 9:00 AM EDT - 01/21/2025 11:59 PM EDT Hospital Encounter [facility] Nuclear Medicine [address] [place] [phone] Malignant neoplasm of overlapping sites of left breast in female, estrogen receptor positive (CMS/HCC V24, [facility] V28) Discharge Disposition: Home or Self Care 11/23/2024 11:15 AM EDT Office Visit [facility] Hematology Oncology [address] [place] [phone] Tiffany Orellana MD Malignant neoplasm of overlapping sites of left breast in female, estrogen receptor positive ([facility] V24, [facility] V28) (Primary Dx); Cancer, 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 ([facility] V24, [facility] V28); Chest pain on breathing; Weight loss from Last 3 Months Surgical History Surgery Date Site/Laterality Comments MASTECTOMY PROCEDURE:MASTECTOMY APPENDECTOMY PROCEDURE:APPENDECTOMY CHOLECYSTECTOMY PROCEDURE:CHOLECYSTECTOMY COLONOSCOPY PROCEDURE:COLONOSCOPY Medical History Medical History Date Comments Breast cancer ([facility] V24, [facility] V28) DX:Breast cancer ([facility]) Hypertension DX:Hypertension COPD (chronic obstructive pu lmonary disease) ([facility] V24, [facility] V28) DX:COPD (chronic o bstructive pulmonary disease) ([facility]) Family History Medical History Relation Name Comments Cancer Maternal Grandmother esophag eal Cancer Mother colon Relation Name Status Comments Maternal Grandmother Mother Social History Tobacco Use Types Packs/Day Years Used Date Smoking Tobacco: Former Smokeless Tobacco: Former Alcohol Use Standard Drinks/Week Comments Not Currently 0 (1 standard drink = 0.6 oz pur e alcohol) Comments Unknown Sex and Gender Information Value Date Recorded Sex Assigned at Not on file Legal Sex Female 9:04 AM EST Gender Identity Not on file Sexual Orientation Not on file Obstetrics History Last Filed Vital Signs Vital Sign Reading Time Taken Comments Blood Pressure 152/67 01/21/2025 11:17 AM EDT Pulse 66 01/21/2025 11:17 AM EDT Temperature 36.1 C (97 F) 01/21/2025 11:17 AM EDT Respiratory Rate - - Oxygen Saturation 100% 01/21/2025 11:17 AM EDT Inhaled Oxygen Concentration - - Weight 73.9 kg (163 lb) 01/21/2025 11:17 AM EDT Height 147.3 cm (4' 10 ) 01/21/2025 11:17 AM EDT Body Mass Index 34.07 01/21/2025 11:17 AM EDT Plan of Treatment Upcoming Encounters Date Type Department Care Team (Late st Contact Info) Description 03/25/2025 11:00 AM EDT Office Visit [facility] Hematology Oncology [address] [place] [phone] Tiffany Nava MD [address] [place] [phone] Health Maintenance Due Date Last Done Comments Zoster Vaccines (1 of 2) 1969 RSV Immunization Adult Patients (1 - 1-dose 75+ series) 2023 Falls Risk Assessment 12/17/2023 Hepatitis C Screening 12/17/2023 Medicare Annual Wellness Visit 12/17/2023 Osteoporosis Screening (Bone Density Screening) 12/17/2023 Social Influencers of Health Screening 12/17/2023 Depression Screening 05/27/2024 COVID-19 Vaccine ( season) 2025 07/15/2021, 08/16/2020, 07/19/2020 Influenza Vaccine (#1) 2025 4, 02/16/2022, 02/13/2021, [...] Procedure Name Priority Date/Time Associated Diagnosis Comments NM BONE/JOINT SCAN WHOLE BODY Routine 01/21/2025 1:28 PM EDT Malignant neoplasm of overlapping sites of left breast in female, estrogen receptor positive (CMS/HCC V24, CMS/HCC V28) CT CHEST/ABDOMEN/PELVIS W CONTRAST Routine 01/21/2025 11:10 AM EDT Malignant neoplasm of overlapping sites of left breast in female, estrogen receptor positive (CMS/HCC V24, CMS/HCC V28) CBC WITH AUTO DIFFERENTIAL Routine 01/20/2025 2:18 PM EDT Malignant neoplasm of overlapping sites of left breast in female, estrogen receptor positive (CMS/HCC V24, CMS/HCC V28) CBC AND DIFFERENTIAL Routine 01/20/2025 2:18 PM EDT Malignant neoplasm of overlapping sites of left breast in female, estrogen receptor positive (CMS/HCC V24, CMS/HCC V28) COMPREHENSIVE METABOLIC PANEL Routine 01/20/2025 2:18 PM EDT Malignant neoplasm of overlapping sites of left breast in female, estrogen receptor positive (CMS/HCC V24, CMS/HCC V28) CANCER ANTIGEN 27-29 Routine 01/20/2025 2:18 PM EDT Malignant neoplasm of overlapping sites of left breast in female, estrogen receptor positive (CMS/HCC V24, CMS/HCC V28) from Last 3 Months Results * NM Bone/Joint Scan Whole Body (01/21/2025 1:28 PM EDT) Anatomical Region Laterality Modality Nuclear Medicine 01/29/2025 1:23 PM EDT Impressions 01/29/2025 1:29 PM EDT No scintigraphic evidence of osteoblastic metastatic disease. Similar degenerative pattern of activity as detailed above. -------- FINAL REPORT -------- Dictated By: Elyssa Johns Dictated Date: 01/29/2025 13:23 ET Assigned Physician: Elyssa Johns Reviewed and Electronically Signed By: Elyssa Johns Signed Date: 01/29/2025 13:29 ET Workstation ID: [id number] Transcribed By: Self Edit Transcribed Date: 01/29/2025 13:23 ET Narrative 01/29/2025 1:29 PM EDT INDICATION: Breast cancer TECHNIQUE: Whole body bone scan was obtained after the uneventful intravenous administration of 24.3 mCi of technetium-99m MDP intravenously. COMPARISON: Bone scan dated December 02, 2023 Whole-body images obtained in the anterior and posterior projections as well as oblique imaging of the chest, abdomen and pelvis. FINDINGS: Uptake noted along the lower thoracic spine and lumbar spine correlates with degenerative changes noted on CT images. Mild focal activity along the left hand likely degenerative or posttraumatic. Mild degenerative activity suspected along the AC joints and sternoclavicular joints. No abnormal activity noted on the remainder of the axial or appendicular skeleton. Procedure Note Elyssa Johns MD - 01/29/2025 INDICATION: Breast cancer TECHNIQUE: Whole body bone scan was obtained after the uneventfulintravenous administration of 24.3 mCi of technetium-99m MDPintravenously. COMPARISON: Bone scan dated December 02, 2023 Whole-body images obtained in the anterior and posterior projections aswell as oblique imaging of the chest, abdomen and pelvis. FINDINGS: Uptake noted along the lower thoracic spine and lumbar spinecorrelates with degenerative changes noted on CT images. Mild focal activity along the left hand likely degenerative orposttraumatic. Mild degenerative activity suspected along the AC jointsand sternoclavicular joints. No abnormal activity noted on the remainder of the axial or appendicularskeleton. IMPRESSION: No scintigraphic evidence of osteoblastic metastatic disease. Similar degenerative pattern of activity as detailed above. -------- FINAL REPORT -------- Dictated By: Elyssa Johns Dictated Date: 01/29/2025 13:23 ET Assigned Physician: Elyssa Johns Reviewed and Electronically Signed By: Elyssa Johns Signed Date: 01/29/2025 13:29 ET Workstation ID: [id number] Transcribed By: Self Edit Transcribed Date: 01/29/2025 13:23 ET Subramony Subramonia-Melissa JOHNSONG NM PROCEDURES F inal Result * CT Chest/Abdomen/Pelvis w Contrast (01/21/2025 11:10 AM EDT) Anatomical Region Laterality Modality Body Computed Tomogra phy 02/01/2025 2:52 PM EDT Impressions 02/01/2025 3:22 PM EDT No evidence of active neoplastic disease in the chest, abdomen, and pelvis. -------- FINAL REPORT -------- Dictated By: José Luis Henriquez Dictated Date: 02/01/2025 14:52 ET Assigned Physician: José Luis Henriquez Reviewed and Electronically Signed By: José Luis Henriquez Signed Date: 02/01/2025 15:22 ET Workstation ID: [id number] Transcribed By: Self Edit Transcribed Date: 02/01/2025 14:52 ET Narrative 02/01/2025 3:22 PM EDT PROCEDURE: CT of the chest, abdomen, and pelvis with intravenous contrast. HISTORY: breast cancer - restaging. COMPARISON: Chest CT dated 11/27/2023. TECHNIQUE: Contrast-enhanced CT of the chest, abdomen, and pelvis with coronal and sagittal reformats. IV contrast dose: 90 mL ISOVUE-370. Dose length product: mGy-cm. FINDINGS: Lungs/pleura: Airways are clear and normal in caliber. Assessment of the lung bases is limited by respiratory motion. There are groundglass and linear markings at both bases suggestive of atelectasis. Elevated right hemidiaphragm. No suspicious pulmonary nodule or mass. No pleural effusion or pneumothorax. Mediastinum/jolly: There is a small peripherally calcified nodule in the left thyroid lobe. The thyroid could be better evaluated with ultrasound. Small hiatal hernia. No mass or adenopathy. Thoracic vasculature: Mild atherosclerotic calcifications of the aorta. Mildly prominent central pulmonary arteries. No central pulmonary embolism. Cardiac: The heart is mildly enlarged. Minimal coronary artery calcification. Chest wall: Lipoma in the right posterior periscapular musculature. No axillary or supraclavicular lymphadenopathy. Bilateral mastectomy. Liver: Stable small low-attenuation lesion in the medial right lobe at the dome. This is too small for definitive characterization but probably a cyst. Portal veins are patent. Biliary: Cholecystectomy. Dilatation of the biliary tree, probably secondary to a postcholecystectomy reservoir effect. No visible ductal filling defect. Pancreas: Normal. Spleen: Normal. Adrenal glands: Normal. Kidneys: Right lower pole cortical cyst. Additional smaller low-attenuation cortical lesions are also likely cysts but too small for definitive characterization. Normal appearance of the ureters. Retroperitoneum: No mass or adenopathy. Abdominal vasculature: Mild atherosclerotic calcification. Bowel/mesentery: No obstruction or adenopathy. No mass or ascites. Distal predominant colonic diverticulosis. Small hiatal hernia. Abdominal wall: Fatty atrophy of the lower lumbar and sacral paraspinous musculature. No mass or hernia. Pelvic nodes: No adenopathy. Pelvic organs: Hysterectomy. Bones: Diffuse degenerative changes of the spine. Slight anterolisthesis at L2-3. L4-5 fusion. Irregularity of the posterior left iliac wing suspected to represent a bone graft donor site. Degenerative changes of the sacroiliac joints and hips. Straightening of the typical lumbar lordosis. Mild degenerative changes of the hips and sacroiliac joints. Procedure Note José Luis Henriquez MD - 02/01/2025 PROCEDURE: CT of the chest, abdomen, and pelvis with intravenouscontrast. HISTORY: breast cancer - restaging. COMPARISON: Chest CT dated 11/27/2023. TECHNIQUE: Contrast-enhanced CT of the chest, abdomen, and pelvis withcoronal and sagittal reformats. IV contrast dose: 90 mL ISOVUE-370. Dose length product: mGy-cm. FINDINGS: Lungs/pleura: Airways are clear and normal in caliber. Assessment of thelung bases is limited by respiratory motion. There are groundglass andlinear markings at both bases suggestive of atelectasis. Elevated righthemidiaphragm. No suspicious pulmonary nodule or mass. No pleuraleffusion or pneumothorax. Mediastinum/jolly: There is a small peripherally calcified nodule in theleft thyroid lobe. The thyroid could be better evaluated with ultrasound.Small hiatal hernia. No mass or adenopathy. Thoracic vasculature: Mild atherosclerotic calcifications of the aorta.Mildly prominent central pulmonary arteries. No central pulmonaryembolism. Cardiac: The heart is mildly enlarged. Minimal coronary arterycalcification. Chest wall: Lipoma in the right posterior periscapular musculature. Noaxillary or supraclavicular lymphadenopathy. Bilateral mastectomy. Liver: Stable small low-attenuation lesion in the medial right lobe at thedome. This is too small for definitive characterization but probably acyst. Portal veins are patent. Biliary: Cholecystectomy. Dilatation of the biliary tree, probablysecondary to a postcholecystectomy reservoir effect. No visible ductalfilling defect. Pancreas: Normal. Spleen: Normal. Adrenal glands: Normal. Kidneys: Right lower pole cortical cyst. Additional smallerlow-attenuation cortical lesions are also likely cysts but too small fordefinitive characterization. Normal appearance of the ureters. Retroperitoneum: No mass or adenopathy. Abdominal vasculature: Mild atherosclerotic calcification. Bowel/mesentery: No obstruction or adenopathy. No mass or ascites.Distal predominant colonic diverticulosis. Small hiatal hernia. Abdominal wall: Fatty atrophy of the lower lumbar and sacral paraspinousmusculature. No mass or hernia. Pelvic nodes: No adenopathy. Pelvic organs: Hysterectomy. Bones: Diffuse degenerative changes of the spine. Slight anterolisthesisat L2-3. L4-5 fusion. Irregularity of the posterior left iliac wingsuspected to represent a bone graft donor site. Degenerative changes ofthe sacroiliac joints and hips. Straightening of the typical lumbarlordosis. Mild degenerative changes of the hips and sacroiliac joints. IMPRESSION: No evidence of active neoplastic disease in the chest, abdomen, andpelvis. -------- FINAL REPORT -------- Dictated By: José Luis Henriquez Dictated Date: 02/01/2025 14:52 ET Assigned Physician: José Luis Henriquez Reviewed and Electronically Signed By: José Luis Henriquez Signed Date: 02/01/2025 15:22 ET Workstation ID: [id number] Transcribed By: Self Edit Transcribed Date: 02/01/2025 14:52 ET us Subramony Subramonia-Melissa EDWARDS CT PROCEDURES F inal Result * (ABNORMAL) CBC auto differential (01/20/2025 2:18 PM EDT) [facility] WBC 5.4 4.8 - 10.8 K/mcL LAB HEMETOLOGY METHOD 01/20/2025 6:04 PM EDT [facility] RBC 4.00 3.80 - 4.80 M/mcL LAB HEMETOLOGY METHOD [facility]/20[facility]2025 6[facility] Hemoglobin 12.5 11.5 - 16.0 g/dL LAB HEMETOLOGY METHOD 01/20/2025 6:04 PM EDT [facility] Hematocrit 39.5 35.0 - 47.0 % LAB HEMETOLOGY METHOD 01/20/2025 6:04 PM [facility] MCV 98.3(H) 79.0 - 98.0 FL LAB HEMETOLOGY METHOD 01/20/2025 6:04 PM [facility] MCH 31.1 27.0 - 32.0 pcg LAB HEMETOLOGY METHOD 01/20/2025 6:04 PM EDT [facility] MCHC 31.6(L) 32.0 - 37.0 g/dL LAB HEMETOLOGY METHOD 01/20/2025 6:04 PM [facility] RDW 13.8 11.0 - 15.0 % LAB HEMETOLOGY METHOD 01/20/2025 6:04 PM [facility] Platelets 348 130 - 400 K/mcL LAB HEMETOLOGY METHOD 01/20/2025 6:04 PM [facility] MPV 9.9 7.0 - 11.0 FL LAB HEMETOLOGY METHOD 01/20/2025 6:04 PM [facility] NRBC 0.0 <1.0 % LAB HEMETOLOGY METHOD 01/20/2025 6:04 PM [facility] NRBC Absolute 0.00 <0.10 K/mcL LAB HEMETOLOGY METHOD 01/20/2025 6:04 PM [facility] Neutrophils Relative 55.2 % LAB HEMETOLOGY METHOD 01/20/2025 6:04 PM [facility] Comment:This is an appended report. These results have been appended to a previously preliminary verified report. Lymphocytes Relative 36.6 % LAB HEMETOLOGY METHOD 01/20/2025 6:04 PM [facility] Comment:This is an appended report. These results have been appended to a previously preliminary verified report. Monocytes Relative 5.2 % LAB HEMETOLOGY METHOD 01/20/2025 6:04 PM [facility] Comment:This is an appended report. These results have been appended to a previously preliminary verified report. Eosinophils Relative 1.7 % LAB HEMETOLOGY METHOD 01/20/2025 6:04 PM [facility] Comment:This is an appended report. These results have been appended to a previously preliminary verified report. Basophils Relative 0.9 % LAB HEMETOLOGY METHOD 01/20/2025 6:04 PM [facility] Comment:This is an appended report. These results have been appended to a previously preliminary verified report. Immature Granulocytes Relative 0.4 % LAB HEMETOLOGY METHOD 01/20/2025 6:04 PM [facility] Comment:This is an appended report. These results have been appended to a previously preliminary verified report. Neutrophils Absolute 2.95 1.50 - 7.00 K/mcL LAB HEMETOLOGY METHOD 01/20/2025 6:04 PM [facility] Comment:This is an appended report. These results have been appended to a previously preliminary verified report. Lymphocytes Absolute 1.96 1.00 - 5.00 K/mcL LAB HEMETOLOGY METHOD 01/20/2025 6:04 PM [facility] Comment:This is an appended report. These results have been appended to a previously preliminary verified report. Monocytes Absolute 0.28 0.20 - 1.00 K/mcL LAB HEMETOLOGY METHOD 01/20/2025 6:04 PM EDT [facility] Comment:This is an appended report. These results have been appended to a previously preliminary verified report. Eosinophils Absolute 0.09 0.00 - 0.50 K/mcL LAB HEMETOLOGY METHOD 01/20/2025 6:04 PM EDT [facility] Comment:This is an appended report. These results have been appended to a previously preliminary verified report. Basophils Absolute 0.05 0.00 - 0.20 K/mcL LAB HEMETOLOGY METHOD 01/20/2025 6:04 PM EDT [facility] Comment:This is an appended report. These results have been appended to a previously preliminary verified report. Immature Granulocytes Absolute 0.02 0.00 - 0.03 K/mcL LAB HEMETOLOGY METHOD 01/20/2025 6:04 PM EDT [facility] Comment:This is an appended report. These results have been appended to a previously preliminary verified report. Blood Venous blood specimen / Unknown Venipuncture / Unknown 01/20/2025 2:18 PM EDT 01/20/2025 4:29 PM EDT us Tiffany Nava MD LAB BLOOD ORDERABLE S Final Result [facility] [address] [place] [address], * Cancer antigen 27-29 (01/20/2025 2:18 PM EDT) CA 27.29 30.9 <38.6 U/mL 01/26/2025 2:33 PM EDT [facility] Comment: The Siemens Advia Centaur [id number] Chemiluminescent Immunoassay is used. Results obtained with different assay methods or kits cannot be used interchangeably. Results cannot be interpreted as absolute evidence of the presence or absence of malignant disease. Test performed at [facility], [address], [place] [address] Mary Albrecht MD, PhD - Aed Trainer Blood Venous blood specimen / Unknown Venipuncture / Unknown 01/20/2025 2:18 PM EDT 01/20/2025 4:28 PM EDT Tiffany Nava MD LAB BLOOD ORDERABLE S Final Result [facility] [address] [address] * (ABNORMAL) Comprehensive metabolic panel (01/20/2025 2:18 PM EDT) Sodium 138 133 - 145 mmol/L LAB CHEMISTRY METHOD 01/20/2025 5:57 PM [facility] Potassium 4.6 3.5 - 5.5 mmol/L LAB CHEMISTRY METHOD 01/20/2025 5:57 PM [facility] Chloride 105 96 - 110 mmol/L LAB CHEMISTRY METHOD 01/20/2025 5:57 PM [facility] CO2 28 21 - 32 mmol/L LAB CHEMISTRY METHOD 01/20/2025 5:57 PM [facility] Anion Gap 5 3 - 11 LAB CHEMISTRY METHOD 01/20/2025 5:57 PM [facility] Glucose 52(L) 70 - 100 mg/dL LAB CHEMISTRY METHOD 01/20/2025 5:57 PM T [facility] BUN 22 5 - 25 mg/dL LAB CHEMISTRY METHOD 01/20/2025 5:57 PM [facility] Creatinine 1.60(H) 0.50 - 1.10 mg/dL LAB CHEMISTRY METHOD 01/20/2025 5:57 PM [facility] eGFR 33(L) >=60 mL/min/1. 73m2 LAB CHEMISTRY METHOD 01/20/2025 5:57 PM [facility] Comment:Calculation based on the Chronic Kidney Disease Epidemiology Collaboration (CKD-EPI) equation refit without adjustment for race. BUN/Creatinine Ratio 13.8 LAB CHEMISTRY METHOD 01/20/2025 5:57 PM EDT [facility] Calcium 9.7 8.5 - 10.5 mg/dL LAB CHEMISTRY METHOD 01/20/2025 5:57 PM EDT [facility] AST (SGOT) 17 10 - 42 unit/L LAB CHEMISTRY METHOD 01/20/2025 5:57 PM EDT [facility] ALT (SGPT) 21 10 - 60 unit/L LAB CHEMISTRY METHOD 01/20/2025 5:57 PM EDT [facility] Alkaline Phosphatase 69 42 - 121 unit/L LAB CHEMISTRY METHOD 01/20/2025 5:57 PM EDT [facility] Total Protein 7.1 6.0 - 8.0 g/dL LAB CHEMISTRY METHOD 01/20/2025 5:57 PM EDT [facility] Albumin 4.0 3.2 - 5.0 g/dL LAB CHEMISTRY METHOD 01/20/2025 5:57 PM EDT [facility] Total Bilirubin 0.3 0.0 - 1.4 mg/dL LAB CHEMISTRY METHOD 01/20/2025 5:57 PM EDT [facility] Blood Venous blood specimen / Unknown Venipuncture / Unknown 01/20/2025 2:18 PM EDT 01/20/2025 4:28 PM EDT us Adriramjose angel Nava MD LAB BLOOD ORDERABLE S Final Result [facility] [address] [place] [address], from Last 3 Months Insurance [id number] [place] [id number] [facility] Member Subscriber Plan / Payer (Ef fective 2014-Present) Name:Beatriz Herbert Relation to Subscriber:Self Name:Beatriz Herbert Payer ID:[id number] Group ID:[id number] Type:Not on file Address: [place] [address] [address] [phone] Care Teams Customer Operations Representative Relationship Specialty Start Date End Date Milan Mcgraw PA [address] [place] [phone] PCP - General 06/05/23
--- OUTSIDE RECORDS SUMMARY | 2025-02-08 13:58 | XMS_ITS | Clinical Summary ---
Author Organization [facility] Address [address] [place] [address] Care Team Providers Care Garment Presser Name Role Phone [place] Mcgraw Primary Care Provider [phone]- [phone] Allergies No known active allergies Medications Medication [...] from 02/19/2022:Stage IA(pT1c, pN1, cM0, G2, ER+, [place]+, HER2-) - Signed by Tiffany Villavicencio MD [...] age to complete this topic Care Teams Garment Presser Relationship Specialty Start Date End Date [place] Mcgraw PA [address] [place] [address] [phone] PCP - General Physician Division Head 06/05/23
--- OUTSIDE RECORDS SUMMARY | 2025-02-08 13:58 | XMS_ITS | Patient Health Record ---
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 [place] [employer] Name Role Phone [place] Mcgraw Primary Care Provider Unavailab Chinedu Hoff Unavailable [phone] Reason For Referral No Information Medications Medication [...] Problem Status W/U Status Risk Notes Problem [id number] Encounter for screening for malignant neoplasm of colon (Z12.11) Active confirmed Problem 861163432 Irritable bowel syndrome with diarrhea (K58.0) Active confirmed Problem 829354312 Gastroesophageal reflux disease without esophagitis (K21.9) Active confirmed Problem 625172289 Family history o f colon cancer (Z80.0) Active confirmed Plan Of Treatment Future Test Test Name Order Date UPPER GI ENDOSCOPY 11/02/2014 COLONOSCOPY 11/02/2014 COLONOSCOPY 11/25/2019 Next Appt Details Provider Name:Chinedu Kat , 03/02/2025 11:10:00 AM, [address] [place] [address], [address], [place], [address], Insurance Providers Payer Name Payer Address Payer Phone Subscriber Number Group Number Insured Name Patient Relationship to Insured Coverage Start Date Coverage End Date [facility] [address] [place] [phone] [id number] ANA CRISTINA LOZANO Self - patient is the insured [facility]ICAID [facility] [address] [place] [address] [phone] [id number] ANA CRISTINA LOZANO Self - patient is the insured Medical (General) History Medical History History ICD Code Breast cancer on the right w ith surgery as below; left breast with precancerous cells and had XRT only Denies NH,DM,CVA,renal disease Depression/Anxiety Asthma Back pain GERD--EGD in [...]
== END 2025-02-08 11:40 | disposition home or self-care (01) ==
LOC: HO.HMCH 10:45
PROVIDERS: PCP Physician Assistant; Visit Provider Physician Assistant
DX: E11.65 Type 2 diabetes mellitus with hyperglycemia (principal); C50.911 Malignant neoplasm of unspecified site of right female breast; F11.20 Opioid dependence, uncomplicated; Z12.11 Encounter for screening for malignant neoplasm of colon; I10 Essential (primary) hypertension; E78.2 Mixed hyperlipidemia

== ENCOUNTER → 2025-02-08 10:44 | Outpatient (BNVA) | payer OTHER, SELFPAY | PROVIDERS: PCP Physician Assistant; Visit Provider Physician Assistant | DX: E11.65 Type 2 diabetes mellitus with hyperglycemia (principal); I10 Essential (primary) hypertension; M54.50 Low back pain, unspecified; E78.2 Mixed hyperlipidemia; F11.20 Opioid dependence, uncomplicated; M54.12 Radiculopathy, cervical region; Z85.3 Personal history of malignant neoplasm of breast; Z90.13 Acquired absence of bilateral breasts and nipples | CPT/HCPCS: 83036; 99212 ==

== ENCOUNTER 2025-02-10 11:01 | Outpatient (AMB) | payer OTHER, SELFPAY ==
--- NOTE | 2025-02-10 11:04 | MHC.OFFVIS ---
Vital Signs 02/10/25 11:05 Height 4 ft 11 in Weight 164 lb 3.91 oz BMI 33.2 BP 140/76 H Blood Pressure Location Lt brachial Position Sitting Pulse 68 Pulse Source Pulse Oximeter Pulse Oximetry (%) 97 Oxygen Delivery Method Room Air Intake Visit Reasons: Asthma Allergies mirtazapine (From Remeron) Allergy (Intermediate, Verified 02/10/25 11:09) Hallucinations HPI Comments Details: The patient is a 74 year woman with a known history of breast cancer status post bilateral mastectomy and apparently had been on tamoxifen. A she was in usual state [facility] until back over the summer she started developing significant lower extremity discomfort and swelling primarily the left leg. She had an ultrasound that demonstrating a DVT the patient was sent to the hospital. She was admitted to the hospital and that she had a CTA demonstrating also significant pulmonary emboli she. The patient was placed on Eliquis. During the hospitalization the patient did have elevations in the cardiac enzymes event therefore it was prefer to she treat her conservatively. She was evaluated by vascular surgery briefly. The patient subsequently was discharged and then she presented to [facility] in December with worsening left lower extremity pain. There she had another ultrasound demonstrating persistent extensive clot of the lower extremity. Rosy while she does complaint of dyspnea on exertion. She is limited as far as rectal and gait and she does have a walker or cane. During the visit we did have her go for 6 minutes walk test the patient did not desaturate she maintain a pulse ox of 96-98% which is reassuring however heart rate was elevated in the low 100s. We did review her CTA that she had back in November personally by me laterally that she had bilateral blood clots but she also had extensive ground-glass opacities. The etiology is unclear. Will go ahead and request blood work evaluation for the pneumonitis. She she is currently on Eliquis and she is off the tamoxifen altogether. She does follow closely with Oncology. Based on the fact the continues to have symptoms will going to repeat her CTA this point and also her left lower extremity Doppler to assess the clot burden. If she continues to have clot burden primarily the left lower extremity will go ahead and refer her back to vascular surgery. If her clot burden still significant in the chest area then will have to contemplate a different anticoagulation regimen for her. 06/10/2023 the patient is here for a pulmonary follow-up visit. Overall the patient has been doing fairly well from a respiratory status. She is still getting shortness of breath with activity. Jiph-zp-[id number] severity. She does relying walker. The patient has been using the Eliquis. She did have a repeat lower extremity Doppler demonstrating improvement in the chronic clot. This is reassuring that at least his decreasing size. Therefore we do not have to send her to vascular surgery. She did attempt to have the CTA done to see if she has any chronic clot in the lungs. However, after multiple IV catheter attempts the patient was not able to get IV in place in order to get the contrast dye. Therefore we had to cancel the CT scan. I did go with the patient for brief walking oximetry in the oxygen maintain between 96-97%. Heart rate was stable. Therefore I am reassured that her pulmonary vascular issues are improved. The patient also had a biopsy of a breast lesion in appears that she has recurrent breast cancer. The patient still not aware that she is going to find out the results tomorrow with her surgeon. Therefore based on the fact that she is going to need additional interventions will go ahead and continue with conservative therapy. She should continue with the Eliquis lifelong for the significant thrombotic event. The patient also continues use her respiratory therapy with good effect. And the oxygenation is also reassuring. 01/30/2024 the patient is here for a pulmonary follow-up visit. The patient has been complaining of worsening cough. Typically at nighttime. Typically when she lays back. Moderate severity. She also complains of some dyspnea on exertion. He she had been taking Breo some reason she has not been taking any longer. She does not like the powder inhalers. She would like the irritate her throat. She rather use the regular HFA. She did have a CT scan of the chest in 12/14/2023. This was done at [facility]. No evidence of any pneumonitis although she did have increased cardiac size and some pulmonary vascular congestion. The patient also has some lower extremity edema. She does have Lasix that she takes. The patient also continues on the Eliquis for her DVT. She is also following closely with oncology regarding her history of breast cancer. Her respiratory exam is reassuring. It is also reassuring that she does not have any further pneumonitis on her CT scan. No pulmonary nodules to be concerned about either. Will plan to treat her cough with inhaler therapy and also with the benzo nights. The patient should also sleep elevated. Will follow-up in 6-8 months. If she has any issues prior to that she will call for an earlier assessment. 10/05/2024 the patient is here for pulmonary follow-up visit. The patient is having significant issues with her walking her gait. She has had issues with fall. Recently she had a fall in her home and she was down 4 hours. Her family found her down and took her to the hospital the next day. She was found to have acute renal failure due to rhabdomyolysis. She hurt her lower extremity resulting significant pain and swelling of her muscle. The patient is now has better renal function. She started developing worsening cough chest congestion. Seems like it is getting worse. She is more short of breath. Moderate severity. During the hospitalization she did have a CT scan of the chest. No evidence of any acute pneumonia. This was personally by me today but she had the CAT scan back on September 28 when she was admitted to the hospital. Therefore will go ahead and treated with Augmentin for the possibility of aspiration bronchitis bronchiolitis. She also will need some prednisone since she is having rhonchi and wheezing. And will provide her some Mucinex DM to help with cough. Otherwise the patient will call if she is no better. Will plan to follow-up in 3-4 months. 02/10/2025 the patient is here for pulmonary follow-up visit. Overall the patient is feeling well. Her only complaint is a dry cough. Moderate intermittent. She does take her inhalers as prescribed. No recent imaging use. Overall she is feeling better. Her last imaging study was a CT scan back in September 2024 that I personally reviewed demonstrating some decreased lung volumes and some evidence of bronchitis. Also has some residual scarring. Although nothing significant. She continues on her letrozole for her history of breast cancer. She follows closely with Oncology and also surgery. She is healing well without any evidence of any active disease. Will follow-up in 8-12 months this time. If the patient has any issues that arise she will call. She will continue with the Symbicort her rescue inhaler will make sure for her to have the Tessalon Perles hopefully they are covered in order for her to help decrease some her nonproductive cough. If any issues arise prior to the next visit she can always call for further recommendations. 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 Depression Arthritis IBS (irritable bowel syndrome) GERD (gastroesophageal reflux disease) Recurrent malignant neoplasm of right breast HTN (hypertension) Traumatic complete tear of right rotator cuff Surgical History Hx of excision of mass (08/14/23) History of excision of lesion (05/30/23) S/P bilateral mastectomy History of bilateral mastectomy (02/19/22) Hx of cholecystectomy Hx of appendectomy Hx of blepharoplasty History of esophagogastroduodenoscopy (EGD) History of lumpectomy of both breasts History of surgery History of colonoscopy S/P ANDRÉS-BSO (total abdominal hysterectomy and bilateral salpingo-oophorectomy) History of lumbar fusion Family History Father Heart problem Mother Heart disease Hypertension Colon cancer Epilepsy Maternal Grandmother Esophageal cancer Daughter Breast cancer Brother Lung cancer Sister Breast cancer Sister Breast cancer, Onset Age: 60 Sister COVID Daughter Acute kidney failure Social History Household Members: None Housing: Apartment Are you a primary field care coordinator to a significant other at home: No Do you presently have visiting nurse or other home services: No Alcohol intake: never Comment: counts correct Patient Tobacco Use Status: Never used Tobacco e-Cigarette/Vaping Use: Never Used Second Hand Smoke Exposure: No Advance Directives Date on File: 06/13/23 service: No Current occupational status: disabled 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) Hearing needs: No Vision needs: Yes Female Reproductive History Menstrual Age of Menarche: 9 Review of Systems Const Denies chills, Reports fatigue, Denies fever(s) and Reports weight loss Eyes Denies change in vision ENT Denies dizziness Card Denies chest pain, Denies leg edema, Denies lightheadedness, Denies palpitations, Reports dyspnea on exertion, Denies orthopnea and Denies other Resp Reports cough, Reports dyspnea on exertion and Denies wheezing GI Denies hematochezia and Denies change in stool character Musc Reports abnormal gait, Reports myalgias, Reports joint swelling, Reports limited range of motion, Reports muscle cramps, Reports muscle weakness, Denies numbness, Denies radiating pain into limb and Denies tingling Skin/Breast Denies rash Neuro Reports abnormal gait, Denies dizziness, Denies numbness and Denies tingling Endo Reports fatigue and Denies palpitations Neo/Lymph Denies easy bleeding, Denies easy bruising and Denies lymphadenopathy Aller/Immun Denies wheezing Physical Exam Vital Signs: Last Vital Signs Pulse 68 02/10/25 11:05 BP 140/76 H 02/10/25 11:05 Pulse Ox 97 02/10/25 11:05 Oxygen Delivery Method Room Air 02/10/25 11:05 BMI result Body Mass Index 33.2 Const General: no acute distress and alert HEENT Head: Yes atraumatic Neck Neck: Yes supple Chest Chest palpation & inspection: normal inspection of the chest Resp Effort & Inspection: normal respiratory effort Auscultation: no wheezes and diminished lung sounds Cardio Rate: regular rate Rhythm: regular rhythm Heart sounds: S1 normal heart sound present and S2 normal heart sound present GI Palpation (GI): Soft to palpation Skin General skin exam: no rashes or lesions noted Extrem General: No clubbing, No cyanosis and Yes edema Assessment & Plan Assessment & Plan (1) Pulmonary emboli: Code(s): I26.99 - Other pulmonary embolism without acute cor pulmonale Category: Medical Qualifiers: Pulmonary embolism type: multiple subsegmental (without acute cor pulmonale) Qualified Code(s): I26.94 - Multiple subsegmental pulmonary emboli without acute cor pulmonale (2) DVT (deep venous thrombosis): Code(s): I82.409 - Acute embolism and thrombosis of unspecified deep veins of unspecified lower extremity Category: Medical Qualifiers: Affected thrombotic vein of extremity: unspecified vein of extremity Chronicity: acute DVT location: lower extremity Laterality: left Qualified Code(s): I82.402 - Acute embolism and thrombosis of unspecified deep veins of left lower extremity (3) Pulmonary hypertension: Code(s): I27.20 - Pulmonary hypertension, unspecified Category: Medical (4) History of bilateral mastectomy: Onset Date: 02/19/22 Comment: right breast modified radical mastectomy, prophylactic left simple mastectomy- now with recurrence Code(s): Z90.13 - Acquired absence of bilateral breasts and nipples Category: Surgical (5) Asthma: Code(s): J45.909 - Unspecified asthma, uncomplicated Category: Medical Qualifiers: Asthma complication type: with acute exacerbation Asthma persistence: persistent Asthma severity: moderate Qualified Code(s): J45.41 - Moderate persistent asthma with (acute) exacerbation (6) Bronchitis: Code(s): J40 - Bronchitis, not specified as acute or chronic Category: Medical Plan cough medicine continue Eliquis 5mg BID continue Symbicort continue JAMARCUS as needed Benzonates as needed for cough F/U 6 months Medications: New albuterol sulfate 90 mcg/actuation 2 inhalations inhalation Q6H PRN 18 grams 12RF shortness of breath or wheezing 30 days J44.9 - Chronic obstructive pulmonary disease, unspecified, J45.909 - Unspecified asthma, uncomplicated benzonatate 200 mg PO BID PRN 60 caps 5RF cough 30 days Changed From budesonide-formoterol 80-4.5 mcg/actuation 2 puffs PO BID 10.2 ea 11RF To budesonide-formoterol 80-4.5 mcg/actuation 2 puffs inhalation BID 10.2 ea 11RF Coding Level of Care Code Est Pt Level 4 (44120) Complex EM visit Add On G2211 Diagnoses Multiple subsegmental pulmonary emboli without acute cor pulmonale I26.94 Pulmonary embolism type: multiple subsegmental (without acute cor pulmonale) Acute deep vein thrombosis (DVT) of left lower extremity, unspecified vein I82.402 Affected thrombotic vein of extremity: unspecified vein of extremity Chronicity: acute DVT location: lower extremity Laterality: left Pulmonary hypertension I27.20 History of bilateral mastectomy Z90.13 Moderate persistent asthma with acute exacerbation J45.41 Asthma complication type: with acute exacerbation Asthma persistence: persistent Asthma severity: moderate Bronchitis J40 Time Spent (min) 16
[2025-02-10 11:05] VITALS: BP 140/76; PULSE 68; O2SAT 97; BMI 33.2
--- OUTSIDE RECORDS SUMMARY | 2025-02-10 14:10 | XMS_ITS | Clinical Summary ---
Author Organization [facility] Address [address] [place] [address] Care Team Providers Care Drilling Rig Operator Name Role Phone [place] Mcgraw Primary Care Provider [phone]- [phone] Allergies No known active allergies Medications Medication [...] from 02/19/2022:Stage IA(pT1c, pN1, cM0, G2, ER+, [place]+, HER2-) - Signed by Tiffany Villavicencio MD [...] age to complete this topic Care Teams Drilling Rig Operator Relationship Specialty Start Date End Date [place] Mcgraw PA [address] [place] [address] [phone] PCP - General Physician Public Information Director 06/05/23
--- OUTSIDE RECORDS SUMMARY | 2025-02-10 14:10 | XMS_ITS | Patient Health Record ---
Author Organization [facility] Address [address] [place] [address] Care Team Providers Care Skin Diver Name Role Phone [place] Mcgraw Primary Care Provider Unavailab Chinedu Hoff Unavailable [phone] Reason For Referral No Information Medications Medication [...] Problem Status W/U Status Risk Notes Problem [id number] Encounter for screening for malignant neoplasm of colon (Z12.11) Active confirmed Problem 853604154 Irritable bowel syndrome with diarrhea (K58.0) Active confirmed Problem 178481979 Gastroesophageal reflux disease without esophagitis (K21.9) Active confirmed Problem 182326015 Family history o f colon cancer (Z80.0) Active confirmed Plan Of Treatment Future Test Test Name Order Date UPPER GI ENDOSCOPY 11/02/2014 COLONOSCOPY 11/02/2014 COLONOSCOPY 11/25/2019 Next Appt Details Provider Name:Chinedu Kat , 03/02/2025 11:10:00 AM, [address] [place] [address], [address], [place], [address], Insurance Providers Payer Name Payer Address Payer Phone Subscriber Number Group Number Insured Name Patient Relationship to Insured Coverage Start Date Coverage End Date [facility] [address] [place] [phone] [id number] ANA CRISTINA LOZANO Self - patient is the insured MEDICAID OF [facility] [address] [place] [phone] [id number] ANA CRISTINA LOZANO Self - patient is the insured Medical (General) History Medical History History ICD Code Breast cancer on the right w ith surgery as below; left breast with precancerous cells and had XRT only Denies [place],DM,CVA,renal disease Depression/Anxiety Asthma Back pain GERD--EGD in [...]
--- OUTSIDE RECORDS SUMMARY | 2025-02-10 14:10 | XMS_ITS | Clinical Summary ---
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 ([facility] V24, [facility] V28) 10/01/2023 Acute cystitis without hematuria 09/16/2023 Weight loss 09/16/2023 Lymphedema of right arm 06/19/2023 Malignant neoplasm of left f emale breast (CMS/HCC V24, CMS/HCC V28) 06/19/2023 Malignant neoplasm of upper- outer quadrant of right female breast ([facility] V24, [facility] V28) 06/19/2023 Overview (02/20/2024): Most [...] - 01/21/2025 11:59 PM EDT Hospital Encounter [facility] Nuclear Medicine [address] [place] [phone] Discharge Disposition: Home or Self Care 01/21/2025 11:15 AM EDT Office Visit [facility] Hematology Oncology [address] [place] [phone] Tiffany Orellana MD Malignant neoplasm of upper-outer quadrant of right breast in female, estrogen receptor positive (CMS/HCC V24, CMS/HCC V28) (Primary Dx); Cancer, 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 (CMS/HCC V24, CMS/HCC V28); Osteopenia of multiple sites; Multiple subsegmental pulmonary emboli without acute cor pulmonale (CMS/HCC V24, CMS/HCC V28); Vitamin D deficiency 01/21/2025 9:03 AM EDT - 01/21/2025 11:59 PM EDT Hospital Encounter [facility] CT Scan [address] [place] [phone] Malignant neoplasm of overlapping sites of left breast in female, estrogen receptor positive (CMS/HCC V24, CMS/HCC V28) Discharge Disposition: Home or Self Care 01/21/2025 9:00 AM EDT - 01/21/2025 11:59 PM EDT Hospital Encounter [facility] Nuclear Medicine [address] [place] [address] Malignant neoplasm of overlapping sites of left breast in female, estrogen receptor positive (CMS/HCC V24, [facility] [place] Discharge Disposition: Home or Self Care 11/23/2024 11:15 AM EDT Office Visit [facility] Hematology Oncology [address] [place] [address] Tiffany Orellana MD Malignant neoplasm of overlapping sites of left breast in female, estrogen receptor positive ([facility] [place], [facility] V28) (Primary Dx); Cancer, 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 ([facility] [place], [facility] V28); Chest pain on breathing; Weight loss from Last 3 Months Surgical History Surgery Date Site/Laterality Comments MASTECTOMY PROCEDURE:MASTECTOMY APPENDECTOMY PROCEDURE:APPENDECTOMY CHOLECYSTECTOMY PROCEDURE:CHOLECYSTECTOMY COLONOSCOPY PROCEDURE:COLONOSCOPY Medical History Medical History Date Comments Breast cancer ([facility] [place], [facility]28) DX:Breast cancer ([facility]) Hypertension DX:Hypertension COPD (chronic obstructive pu lmonary disease) ([facility] [place], [facility] V28) DX:COPD (chronic o bstructive pulmonary disease) ([facility]) Family History Medical History Relation [...] Description 03/25/2025 11:00 AM EDT Office Visit [facility] Hematology Oncology [address] [place] [address] Tiffany Nava MD [address] [place] [address] Health Maintenance Due Date Last [...] Signed Date: 01/29/2025 13:29 ET Workstation ID: [id number] Transcribed By: Self Edit Transcribed Date: 01/29/2025 [...] Signed Date: 01/29/2025 13:29 ET Workstation ID: [id number] Transcribed By: Self Edit Transcribed Date: 01/29/2025 [...] Signed Date: 02/01/2025 15:22 ET Workstation ID: [id number] Transcribed By: Self Edit Transcribed Date: 02/01/2025 [...] Signed Date: 02/01/2025 15:22 ET Workstation ID: [id number] Transcribed By: Self Edit Transcribed Date: 02/01/2025 14:52 ET us Subramony Subramonia-Melissa EDWARDS CT PROCEDURES F inal Result * (ABNORMAL) CBC auto differential (01/20/2025 2:18 PM EDT) [facility] WBC 5.4 4.8 - 10.8 K/mcL LAB HEMETOLOGY METHOD 01/20/2025 6:04 PM EDT [facility] RBC 4.00 3.80 - 4.80 M/mcL LAB HEM[facility]OLOGY [facility] Hemoglobin 12.5 11.5 - 16.0 g/dL LAB HEMETOLOGY METHOD 01/20/2025 6:04 PM EDT [facility] Hematocrit 39.5 35.0 - 47.0 % LAB HEMETOLOGY METHOD 01/20/2025 6:[facility] MCV 98.3(H) 79.0 - 98.0 FL LAB HEMETOLOGY METHOD 01/20/2025 6:[facility] MCH 31.1 27.0 - 32.0 pcg LAB HEMETOLOGY METHOD 01/20/2025 6:04 PM EDT [facility] MCHC 31.6(L) 32.0 - 37.0 g/dL LAB HEMETOLOGY METHOD 01/20/2025 6:04 PM [facility] RDW 13.8 11.0 - 15.0 % LAB HEMETOLOGY METHOD 01/20/2025 6:[facility] Platelets 348 130 - 400 K/mcL LAB HEMETOLOGY METHOD 01/20/2025 6:[facility] MPV 9.9 7.0 - 11.0 FL LAB HEMETOLOGY METHOD 01/20/2025 6:04 [facility] NRBC 0.0 <1.0 % LAB HEMETOLOGY METHOD 01/20/2025 6:04 [facility] NRBC Absolute 0.00 <0.10 [...] LAB HEMETOLOGY METHOD 01/20/2025 6:04 PM EDT [facility] Comment:This is an appended report. These results have been appended to a previously preliminary verified report. Eosinophils Absolute 0.09 0.00 - 0.50 K/mcL LAB HEMETOLOGY METHOD 01/20/2025 6:04 PM EDT [facility] Comment:This is an appended report. These results have been appended to a previously preliminary verified report. Basophils Absolute 0.05 0.00 - 0.20 K/mcL LAB HEMETOLOGY METHOD 01/20/2025 6:04 PM EDT [facility] Comment:This is an appended report. These results have been appended to a previously preliminary verified report. Immature Granulocytes Absolute 0.02 0.00 - 0.03 K/mcL LAB HEMETOLOGY METHOD 01/20/2025 6:04 PM EDT [facility] Comment:This is an appended report. These results have been appended to a previously preliminary verified report. Blood Venous blood specimen / Unknown Venipuncture / Unknown 01/20/2025 2:18 PM EDT 01/20/2025 4:29 PM EDT us Tiffany Nava MD LAB BLOOD ORDERABLE S Final Result [facility] [address] [place] [address], * Cancer antigen 27-29 (01/20/2025 2:18 PM EDT) CA 27.29 30.9 <38.6 U/mL 01/26/2025 2:33 PM EDT [facility] Comment: The Siemens Advia Centaur [id number] Chemiluminescent Immunoassay is used. Results obtained with different assay methods or kits cannot be used interchangeably. Results cannot be interpreted as absolute evidence of the presence or absence of malignant disease. Test performed at [facility], [address], [place] [address] Mary Albrecht MD, PhD - Sales Development Director Blood Venous blood specimen / Unknown Venipuncture / Unknown 01/20/2025 2:18 PM EDT 01/20/2025 4:28 PM EDT Tiffany Nava MD LAB BLOOD ORDERABLE S Final Result [facility] [address] [place] [address] * (ABNORMAL) Comprehensive metabolic panel (01/20/2025 2:18 [...] LAB CHEMISTRY METHOD 01/20/2025 5:57 PM T [facility] BUN 22 5 - 25 [...] LAB CHEMISTRY METHOD 01/20/2025 5:57 PM EDT [facility] Calcium 9.7 8.5 - 10.5 mg/dL LAB CHEMISTRY METHOD 01/20/2025 5:57 PM EDT [facility] AST (SGOT) 17 10 - 42 unit/L LAB CHEMISTRY METHOD 01/20/2025 5:57 PM EDT [facility] ALT (SGPT) 21 10 - 60 unit/L LAB CHEMISTRY METHOD 01/20/2025 5:57 PM EDT [facility] Alkaline Phosphatase 69 42 - 121 unit/L LAB CHEMISTRY METHOD 01/20/2025 5:57 PM EDT [facility] Total Protein 7.1 6.0 - 8.0 g/dL LAB CHEMISTRY METHOD 01/20/2025 5:57 PM EDT [facility] Albumin 4.0 3.2 - 5.0 g/dL LAB CHEMISTRY METHOD 01/20/2025 5:57 PM EDT [facility] Total Bilirubin 0.3 0.0 - 1.4 mg/dL LAB CHEMISTRY METHOD 01/20/2025 5:57 PM EDT [facility] Blood Venous blood specimen / Unknown Venipuncture / Unknown 01/20/2025 2:18 PM EDT 01/20/2025 4:28 PM EDT us Adriramjose angel Nava MD LAB BLOOD ORDERABLE S Final Result [facility] [address] [place] [address], from Last 3 Months Insurance [address] [place] [id number] [facility] MEDICARE Member Subscriber Plan / Payer (Ef fective 2014-Present) Name:Beatriz Herbert Relation to Subscriber:Self Name:Beatriz Herbert Payer ID:[id number] Group ID:[id number] Type:Not on file Address: [place] [address] [address] [phone] Care Teams Emergency Room Technician Relationship Specialty Start Date End Date Milan Mcgraw PA [address] [place] [phone] PCP - General 06/05/23
== END 2025-02-10 11:49 | disposition home or self-care (01) ==
LOC: HO.HPS 11:02
PROVIDERS: PCP Physician Assistant; Visit Provider Hospitalist
DX: I26.94 Multiple subsegmental thrombotic pulmonary emboli without acute cor pulmonale (principal); I82.402 Acute embolism and thrombosis of unspecified deep veins of left lower extremity; I27.20 Pulmonary hypertension, unspecified; Z90.13 Acquired absence of bilateral breasts and nipples; J45.41 Moderate persistent asthma with (acute) exacerbation; J40 Bronchitis, not specified as acute or chronic
CPT/HCPCS: 99214; G2211

== ENCOUNTER → 2025-02-10 11:01 | Outpatient (BNVA) | payer OTHER, SELFPAY | PROVIDERS: PCP Physician Assistant; Visit Provider Hospitalist | DX: I26.94 Multiple subsegmental thrombotic pulmonary emboli without acute cor pulmonale (principal); I82.402 Acute embolism and thrombosis of unspecified deep veins of left lower extremity; I27.20 Pulmonary hypertension, unspecified; J45.41 Moderate persistent asthma with (acute) exacerbation; J40 Bronchitis, not specified as acute or chronic; Z90.13 Acquired absence of bilateral breasts and nipples | CPT/HCPCS: 99212 ==

== ENCOUNTER 2025-03-02 10:05 | Outpatient (AMB) | payer OTHER, SELFPAY ==
--- NOTE | 2025-03-02 10:21 | A.OFFVIS_ITS ---
Vital Signs 03/02/25 10:22 Height 4 ft 11 in Weight 161 lb BMI 32.5 BP 120/60 Pulse 63 Pulse Source Pulse Oximeter Pulse Oximetry (%) 99 Oxygen Delivery Method Room Air Intake Visit Reasons: 6mon follow-up Erp Consultant Required: No Erp Consultant Services: Erp Consultant Offered & Declined Erp Consultant Name: Daughter Interpreted Accompanied by: Daughter Allergies mirtazapine (From Remeron) Allergy (Intermediate, Verified 03/02/25 10:22) Hallucinations Medication List - Last Reconciled 03/02/25 by RINKU Velasquez abemaciclib (Verzenio) 100 mg PO DAILY acetaminophen 325 mg PO Q6H PRN 30 days albuterol sulfate 2.5 mg (3 mL) inhalation Q6H PRN 30 days albuterol sulfate 90 mcg/actuation 2 inhalations inhalation Q6H PRN 30 days amitriptyline 10 mg PO BEDTIME 90 days apixaban (Eliquis) 5 mg PO BID 90 days benzonatate 200 mg PO BID PRN 30 days blood sugar diagnostic (FreeStyle Lite Strips) As directed blood-glucose meter (FreeStyle Lite Meter kit) As directed budesonide-formoterol 80-4.5 mcg/actuation 2 puffs inhalation BID chair, wheel (Wheel chair) Need for transfer wheelchair chair, wheel (Wheel chair) As directed cholecalciferol (vitamin D3) (Vitamin D3) 50 mcg PO DAILY cyclobenzaprine 10 mg PO TID PRN diaper,brief,adult,disposable (Protective Underwear Ex-Large) 2xl size Briefs. diclofenac sodium 1% 2 grams topical BID PRN dicyclomine 20 mg (2 x 10 mg) PO QID 30 days donepezil 5 mg PO DAILY 30 days escitalopram oxalate 5 mg PO DAILY PRN estradiol 0.01%(0.1mg/gram) 1 g vaginal 3XW 90 days fluticasone furoate-vilanterol 200-25 mcg/dose (Breo Ellipta) 1 inh inhalation DAILY 30 days furosemide (Lasix) 20 mg PO DAILY PRN gabapentin 800 mg PO TID 90 days ibuprofen 800 mg PO Q6H PRN incontinence pad, liner, disp As directed lancets (FreeStyle Lancets) As directed letrozole 2.5 mg PO DAILY memantine 28 mg PO DAILY 30 days metoprolol tartrate 50 mg PO BID miscellaneous medical supply (Blood Pressure Cuff) As directed naloxone 4 mg/actuation (Narcan) 4 mg intranasal Q2M 30 days nebulizers (AeroEclipse II Nebulizer) As directed nebulizers As directed oxycodone 15 mg PO Q8H 28 days semaglutide (Ozempic) 1 mg (0.75 mL) subcut QWEEK 4 weeks simvastatin 10 mg PO DAILY 90 days trazodone 200 mg (2 x 100 mg) PO BEDTIME 90 days HPI Comments Details: 74-yr-old female presents for f/u visit for cognitive impairment in [place], accompanied by her dtr. Her daughter reports that she continues to be followed closely for breast cancer recurrence, and is now on Verzenio and letrozole. She is compliant with Eliquis for a history of DVT. She has been compliant with low-dose donepezil 5 mg daily and memantine ER 28 mg daily. The patient and her daughter report that she is still forgetful. She may forget what she reads books to do, or where she put something. The patient had an episode where she called her brother and asked why he had just left her home, but he lives in [place]. She walks with a cane. She walks in her apartment building, and her family is encouraging her to do some simple leg exercises. She would like supply dominoes, but daughter was thinking of getting her a word search in Vietnamese but has had some difficulty finding this. She continues to live alone in Senior [facility]; however, her ex- lives in the same building and keeps an eye on her. Her family continues to help with ADLs, IADLs, cocaine, appointments, and medications. Her granddaughter, Sharla, is her BOTTOM POUNDER CEMENT SHOES; however, her daughter needs to help out more, as Sharla has been helping out more with her sister, who also has a neurological condition. She states that Trazodone 200mg is no longer helping her sleep. She stopped Mirtazapine, as this caused hallucinations- she was waking up and thinking the clock was a rabbit or waking up and calling for her dtr, who was not there. She states that she goes to bed at 9 pm and wakes up early at 5-6 am. Her daughter notes that historically, they have had to wake up early. She states that she wakes up about twice a night to void. Denies daytime sleepiness, unintentional daytime dozing, or daytime naps. 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 Depression Arthritis IBS (irritable bowel syndrome) GERD (gastroesophageal reflux disease) Recurrent malignant neoplasm of right breast HTN (hypertension) Traumatic complete tear of right rotator cuff Surgical History Hx of excision of mass (08/14/23) History of excision of lesion (05/30/23) S/P bilateral mastectomy History of bilateral mastectomy (02/19/22) Hx of cholecystectomy Hx of appendectomy Hx of blepharoplasty History of esophagogastroduodenoscopy (EGD) History of lumpectomy of both breasts History of surgery History of colonoscopy S/P ANDRÉS-BSO (total abdominal hysterectomy and bilateral salpingo-oophorectomy) History of lumbar fusion Family History Father Heart problem Mother Heart disease Hypertension Colon cancer Epilepsy Maternal Grandmother Esophageal cancer Daughter Breast cancer Brother Lung cancer Sister Breast cancer Sister Breast cancer, Onset Age: 60 Sister COVID Daughter Acute kidney failure Social History Household Members: None Housing: Apartment Are you a primary progressive care nurse to a significant other at home: No Do you presently have visiting nurse or other home services: No Alcohol intake: never Comment: counts correct Patient Tobacco Use Status: Never used Tobacco e-Cigarette/Vaping Use: Never Used Second Hand Smoke Exposure: No Advance Directives Date on File: 06/13/23 service: No Current occupational status: disabled 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) Hearing needs: No Vision needs: Yes Female Reproductive History Menstrual Age of Menarche: 9 Physical Exam Vital Signs: Last Vital Signs Pulse 63 03/02/25 10:22 BP 120/60 03/02/25 10:22 Pulse Ox 99 10/07/25 10:22 Oxygen Delivery Method Room Air 03/02/25 10:22 BMI result Body Mass Index 32.5 Const General: cooperative and no acute distress Resp Effort & Inspection: normal respiratory effort and able to speak in complete sentences Neuro Other: A&O - mild short term memory lapses Slow to stand, steady gait with cane. Cranial nerves: Yes CN's II-XII intact bilaterally Psych Appearance: grossly normal Mental Status: mental status grossly normal Speech and movement: Normal speech and movement present Affect: normal affect Attitude: cooperative Assessment & Plan Assessment & Plan (1) Cognitive disorder: Code(s): F09 - Unspecified mental disorder due to known physiological condition Category: Medical (2) Mild obstructive sleep apnea: Code(s): G47.33 - Obstructive sleep apnea (adult) (pediatric) Category: Medical Plan Reviewed 11/06/2024 in-lab PSG results, which showed no evidence for sleep apnea or periodic limb movement of sleep, with AHI less than 3 per hour, O2 louis 88% and SpO2 under 88% for 0.6 minutes, and average SpO2 92%, and periodic limb movement sleep 0 per hour Acknowledged the patient's concern that trazodone is no longer working for her. Discussed that most people require 7-9 hours of sleep per night, which may include occasional arousals, even the need to void 1-2 times per night. 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 Therefore, discussed that likely she is sleeping sufficiently at night, and therefore would not suggest increasing her sleep medication regimen, as she is already on amitriptyline and high-dose trazodone, and increasing these could result in increased risk for side effects such as cognitive difficulties. I would also avoid trying an alternate sleep aid, as she has had side effects such as hallucinations from trying low-dose mirtazapine. Continue donepezil 5 mg daily in the evening, not to be taken directly with escitalopram or trazodone. Continue Memantine ER 28mg qd Continue amitriptyline 10 mg q.h.s. for sleep Continue trazodone 200 mg daily at bedtime for sleep Continue cognitive, social, and physical activity. Advised that they may find Vietnamese word search puzzles or reusable word search puzzles online. Follow-up in clinic in 6 months or sooner, as needed. Medications: Changed From donepezil 5 mg PO DAILY 30 days 30 tabs 6RF To donepezil 5 mg PO DAILY 90 tabs 1RF 90 days Coding Level of Care Code Est Pt Level 4 (08418) Diagnoses Cognitive disorder F09 Mild obstructive sleep apnea G47.33
[2025-03-02 10:22] VITALS: BP 120/60; PULSE 63; O2SAT 99; BMI 32.5
--- OUTSIDE RECORDS SUMMARY | 2025-03-02 11:56 | XMS_ITS | Clinical Summary ---
Author Organization [facility] Address [address] [place] [address] Care Team Providers Care Music Librarian Name Role Phone Milan Mcgraw Primary Care Provider [phone] Allergies No known active allergies Medications Medication [...] from 02/19/2022:Stage IA(pT1c, pN1, cM0, G2, ER+, OK+, HER2-) - Signed by Tiffany Villavicencio MD [...] age to complete this topic Care Teams Music Librarian Relationship Specialty Start Date End Date Milan Mcgraw PA [address] [place] [phone] PCP - General Physician Multiple Effect Evaporator Operator 06/05/23
--- OUTSIDE RECORDS SUMMARY | 2025-03-02 11:56 | XMS_ITS | Clinical Summary ---
Author Organization [facility] Address [address] [place] [phone] Phone Care Team Providers Care Vice President Of Business Development Name Role Phone Milan Mcgraw Primary Care [...] on breathing 11/27/2023 Cancer, 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 ([facility] V24, [facility] V28) 10/01/2023 Acute cystitis without hematuria 09/16/2023 Weight loss 09/16/2023 Lymphedema of right arm 06/19/2023 Malignant neoplasm of left f emale breast (CMS/HCC V24, CMS/HCC V28) 06/19/2023 Malignant neoplasm of upper- outer quadrant of right female breast ([facility] V24, [facility] V28) 06/19/2023 Overview (02/20/2024): Most recent diagnosis [...] - 01/21/2025 11:59 PM EDT Hospital Encounter [facility] Nuclear Medicine [address] [place] [phone] Discharge Disposition: Home or Self Care 01/21/2025 11:15 AM EDT Office Visit [facility] Hematology Oncology [address] [place] [phone] Tiffany Orellana MD Malignant neoplasm of upper-outer quadrant of right breast in female, estrogen receptor positive (CMS/HCC V24, CMS/HCC V28) (Primary Dx); Cancer, 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 (CMS/HCC V24, CMS/HCC V28); Osteopenia of multiple sites; Multiple subsegmental pulmonary emboli without acute cor pulmonale (CMS/HCC V24, CMS/HCC V28); Vitamin D deficiency 01/21/2025 9:03 AM EDT - 01/21/2025 11:59 PM EDT Hospital Encounter [facility] CT Scan [address] [place] [phone] Malignant neoplasm of overlapping sites of left breast in female, estrogen receptor positive (CMS/HCC V24, CMS/HCC V28) Discharge Disposition: Home or Self Care 01/21/2025 9:00 AM EDT - 01/21/2025 11:59 PM EDT Hospital Encounter [facility] Nuclear Medicine [address] [place] [address] Malignant neoplasm of overlapping sites of left breast in female, estrogen receptor positive (CMS/HCC V24, [facility] [place]28) Discharge Disposition: Home or Self Care from Last 3 Months Surgical History Surgery Date Site/Laterality Comments MASTECTOMY PROCEDURE:MASTECTOMY APPENDECTOMY PROCEDURE:APPENDECTOMY CHOLECYSTECTOMY PROCEDURE:CHOLECYSTECTOMY COLONOSCOPY PROCEDURE:COLONOSCOPY Medical History Medical History Date Comments Breast cancer ([facility] [place]24, [facility] V28) DX:Breast cancer ([facility]) Hypertension DX:Hypertension COPD (chronic obstructive pu lmonary disease) ([facility] V24, [facility] V28) DX:COPD (chronic o bstructive pulmonary disease) ([facility]) Family History Medical History Relation [...] Description 03/25/2025 11:00 AM EDT Office Visit [facility] Hematology Oncology [address] [place] [address] Tiffany Nava MD [address] [place] [phone] Health Maintenance Due Date Last Done Comments Zoster Vaccines (1 of 2) 1969 RSV Immunization Adult Patients (1 - 1-dose 75+ series) 2023 Falls Risk Assessment 12/17/2023 Hepatitis C Screening 12/17/2023 Medicare Annual Wellness Visit 12/17/2023 Osteoporosis Screening (Bone Density Screening) 12/17/2023 Social Influencers of Health Screening 12/17/2023 Depression Screening 05/27/2024 COVID-19 Vaccine ( - season) 2025 07/15/2021, 08/16/2020, 07/19/2020 Influenza Vaccine (#1) 2025 , 02/16/2022, 02/13/2021, Additional history exists DTaP,Tdap,and Td [...] left breast in female, estrogen receptor positive ([facility] V24, CMS/[facility] V28) CT CHEST/ABDOMEN/PELVIS W CONTRAST Routine 01/21/2025 [...] Signed Date: 01/29/2025 13:29 ET Workstation ID: [id number] Transcribed By: Self Edit Transcribed Date: 01/29/2025 [...] Signed Date: 01/29/2025 13:29 ET Workstation ID: [id number] Transcribed By: Self Edit Transcribed Date: 01/29/2025 13:23 ET us Subramony Subramonia-Melissa LEMUS IM NM PROCEDURES F inal Result * CT [...] Signed Date: 02/01/2025 15:22 ET Workstation ID: [id number] Transcribed By: Self Edit Transcribed Date: 02/01/2025 [...] Signed Date: 02/01/2025 15:22 ET Workstation ID: [id number] Transcribed By: Self Edit Transcribed Date: 02/01/2025 14:52 ET us Subramony Subrammoy-Melissa [facility] [place]EDURES F inal Result * (ABNORMAL) CBC auto differential (01/20/2025 2:18 PM EDT) WBC 5.4 4.8 - 10.8 K/mcL LAB HEMETOLOGY METHOD 01/20/2025 6:04 PM EDT [facility] RBC 4.00 3.80 - 4.80 M/mcL LAB HEMETOLOGY METHOD 01/20/2025 6:04 PM EDT [facility] Hemoglobin 12.5 11.5 - 16.0 g/dL LAB HEMETOLOGY METHOD 01/20/2025 6:04 PM T [facility] Hematocrit 39.5 35.0 - 47.0 % LAB HEMETOLOGY METHOD 01/20/2025 6:04 PM [facility] MCV 98.3(H) 79.0 - 98.0 FL LAB HEMETOLOGY METHOD 01/20/2025 6:04 PM [facility] MCH 31.1 27.0 - 32.0 pcg LAB HEMETOLOGY METHOD 01/20/2025 6:04 PM [facility] MCHC 31.6(L) 32.0 - 37.0 g/dL LAB HEMETOLOGY METHOD 01/20/2025 6:04 PM [facility] RDW 13.8 11.0 - 15.0 % LAB HEMETOLOGY METHOD 01/20/2025 6:04 PM [facility] Platelets 348 130 - 400 K/mcL LAB HEMETOLOGY METHOD 01/20/2025 6:04 PM [facility] MPV 9.9 7.0 - 11.0 FL LAB HEMETOLOGY METHOD 01/20/2025 6:04 PM [facility] NRBC 0.0 <1.0 % LAB HEMETOLOGY METHOD 01/20/2025 6:04 PM [facility] NRBC Absolute 0.00 <0.10 K/mcL LAB HEMETOLOGY METHOD 01/20/2025 6:04 PM [facility] Neutrophils Relative 55.2 % LAB HEMETOLOGY METHOD 01/20/2025 6:04 PM [facility] Comment:This is an appended report. These results have been appended to a previously preliminary verified report. Lymphocytes Relative 36.6 % LAB HEMETOLOGY METHOD 01/20/2025 6:04 PM [facility] Comment:This is an appended report. These results have been appended to a previously preliminary verified report. Monocytes Relative 5.2 % LAB HEMETOLOGY METHOD 01/20/2025 6:04 PM [facility] Comment:This is an appended report. These results have been appended to a previously preliminary verified report. Eosinophils Relative 1.7 % LAB HEMETOLOGY METHOD 01/20/2025 6:04 PM [facility] Comment:This is an appended report. These results have been appended to a previously preliminary verified report. Basophils Relative 0.9 % LAB HEMETOLOGY METHOD 01/20/2025 6:04 PM [facility] Comment:This is an appended report. These results have been appended to a previously preliminary verified report. Immature Granulocytes Relative 0.4 % LAB HEMETOLOGY METHOD 01/20/2025 6:04 PM [facility] Comment:This is an appended report. These results have been appended to a previously preliminary verified report. Neutrophils Absolute 2.95 1.50 - 7.00 K/mcL LAB HEMETOLOGY METHOD 01/20/2025 6:04 PM [facility] Comment:This is an appended report. These results have been appended to a previously preliminary verified report. Lymphocytes Absolute 1.96 1.00 - 5.00 K/mcL LAB HEMETOLOGY METHOD 01/20/2025 6:04 PM [facility] Comment:This is an appended report. These results have been appended to a previously preliminary verified report. Monocytes Absolute 0.28 0.20 - 1.00 K/mcL LAB HEMETOLOGY METHOD 01/20/2025 6:04 PM [facility] Comment:This is an appended report. These results have been appended to a previously preliminary verified report. Eosinophils Absolute 0.09 0.00 - 0.50 K/mcL LAB HEMETOLOGY METHOD 01/20/2025 6:04 PM [facility] Comment:This is an appended report. These results have been appended to a previously preliminary verified report. Basophils Absolute 0.05 0.00 - 0.20 K/mcL LAB HEMETOLOGY METHOD 01/20/2025 6:04 PM EDT [facility] Comment:This is an appended report. These results have been appended to a previously preliminary verified report. Immature Granulocytes Absolute 0.02 0.00 - 0.03 K/mcL LAB HEMETOLOGY METHOD 01/20/2025 6:04 PM EDT [facility] Comment:This is an appended report. These results have been appended to a previously preliminary verified report. Blood Venous blood specimen / Unknown Venipuncture / Unknown 01/20/2025 2:18 PM EDT 01/20/2025 4:29 PM EDT us Tiffany Nava MD LAB BLOOD ORDERABLE S Final Result Performing Organization Address City/[facility] Co de Phone Number [facility] [address] [place] [address], * Cancer antigen 27-29 (01/20/2025 2:18 PM EDT) [facility] Signature CA 27.29 30.9 <38.6 U/mL 01/26/2025 2:33 PM EDT [facility] Comment: The Siemens Advia Centaur [id number] Chemiluminescent Immunoassay is used. Results obtained with different assay methods or kits cannot be used interchangeably. Results cannot be interpreted as absolute evidence of the presence or absence of malignant disease. Test performed at [facility], [address] , [place] [address] Mary Albrecht MD, PhD - [employer] Department Manager Blood Venous blood specimen / Unknown Venipuncture / Unknown 01/20/2025 2:18 PM EDT 01/20/2025 4:28 PM EDT us Tiffany Nava MD LAB BLOOD ORDERABLE S Final Result [place] [address] * (ABNORMAL) Comprehensive metabolic panel (01/20/2025 2:18 PM EDT) Sodium 138 133 - 145 mmol/L LAB CHEMISTRY METHOD 01/20/2025 5:57 PM EDT [facility] Potassium 4.6 3.5 - 5.5 mmol/L LAB CHEMISTRY METHOD 01/20/2025 5:57 PM EDT [facility] Chloride 105 96 - 110 mmol/L LAB CHEMISTRY METHOD 01/20/2025 5:57 PM [facility] CO2 28 21 - 32 mmol/L LAB CHEMISTRY METHOD 01/20/2025 5:57 PM [facility] Anion Gap 5 3 - 11 LAB CHEMISTRY METHOD 01/20/2025 5:57 PM [facility] Glucose 52(L) 70 - 100 mg/dL LAB CHEMISTRY METHOD 01/20/2025 5:57 PM [facility] BUN 22 5 - 25 mg/dL LAB CHEMISTRY METHOD 01/20/2025 5:57 PM [facility] Creatinine 1.60(H) 0.50 - 1.10 mg/dL LAB CHEMISTRY METHOD 01/20/2025 5:57 PM [facility] eGFR 33(L) >=60 mL/min/1. 73m2 LAB CHEMISTRY METHOD 01/20/2025 5:57 PM [facility] Comment:Calculation based on the Chronic Kidney Disease Epidemiology Collaboration (CKD-EPI) equation refit without adjustment for race. BUN/Creatinine Ratio 13.8 LAB CHEMISTRY METHOD 01/20/2025 5:57 PM [facility] Calcium 9.7 8.5 - 10.5 mg/dL LAB CHEMISTRY METHOD 01/20/2025 5:57 PM [facility] AST (SGOT) 17 10 - 42 unit/L LAB CHEMISTRY METHOD 01/20/2025 5:57 PM EDT [facility] ALT (SGPT) 21 10 - 60 unit/L LAB CHEMISTRY METHOD 01/20/2025 5:57 PM EDT [facility] Alkaline Phosphatase 69 42 - 121 unit/L LAB CHEMISTRY METHOD 01/20/2025 5:57 PM EDT [facility] Total Protein 7.1 6.0 - 8.0 g/dL LAB CHEMISTRY METHOD 01/20/2025 5:57 PM EDT [facility] Albumin 4.0 3.2 - 5.0 g/dL LAB CHEMISTRY METHOD 01/20/2025 5:57 PM EDT [facility] Total Bilirubin 0.3 0.0 - 1.4 mg/dL LAB CHEMISTRY METHOD 01/20/2025 5:57 PM EDT [facility] Blood Venous blood specimen / Unknown Venipuncture / Unknown 01/20/2025 2:18 PM EDT 01/20/2025 4:28 PM EDT Tiffany Nava MD LAB BLOOD ORDERABLE S Final Result [facility] [address] [place] [address], from Last [address] [place] [address] [employer] Member Subscriber Plan / Payer (Ef fective 2014-Present) Name:Beatriz Herbert Relation to Subscriber:Self Name:Beatriz Herbert Payer ID:[id number] Group ID:[id number] Type:Not on file Address: [place] [address] [address] [phone] Care Teams Vice President Of Business Development Relationship Specialty Start Date End Date Milan Mcgraw PA [address] [place] [address] PCP - General 06/05/23
--- OUTSIDE RECORDS SUMMARY | 2025-03-02 11:56 | XMS_ITS | Patient Health Record ---
Author Organization [facility] Address [address] [place] [address] Care Team Providers Care Indian Nanny Name Role Phone Milan Mcgraw Primary Care Provider Unavailab Chinedu Hoff Unavailable [phone] Reason For Referral No Information Medications Medication [...] Problem Status W/U Status Risk Notes Problem 294058327 Encounter for screening for malignant neoplasm of colon (Z12.11) Active confirmed Problem 197172889 Irritable bowel syndrome with diarrhea (K58.0) Active confirmed Problem [id number] Gastroesophageal reflux disease without esophagitis (K21.9) Active confirmed Problem [id number] Family history o f colon cancer (Z80.0) Active confirmed Encounters Encounter Location Date Provider Diagnosis [facility] [address] [place] [address] 03/02/2025 Chinedu Kat Plan Of Treatment Future Test Test Name Order Date UPPER GI ENDOSCOPY 11/02/2014 COLONOSCOPY 11/02/2014 COLONOSCOPY 11/25/2019 Insurance Providers Payer Name Payer Address Payer Phone Subscriber Number Group Number Insured Name Patient Relationship to Insured Coverage Start Date Coverage End Date [facility] [address] [place] [address] [phone] [id number] ANA CRISTINA LOZANO Self - patient is the insured MEDICAID OF [employer] [address] [place] [address] [id number] ANA CRISTINA LOZANO Self - patient is the insured Medical (General) History Medical History History ICD Code Breast cancer on the right w ith surgery as below; left breast with precancerous cells and had XRT only Denies GA,DM,CVA,renal disease Depression/Anxiety Asthma Back pain GERD--EGD in [...]
== END 2025-03-02 11:39 | disposition home or self-care (01) ==
LOC: HO.HSMS 10:06
PROVIDERS: PCP Physician Assistant; Visit Provider Nurse Practitioner Family
DX: R41.89 Other symptoms and signs involving cognitive functions and awareness (principal); G47.33 Obstructive sleep apnea (adult) (pediatric)
CPT/HCPCS: 99214

== ENCOUNTER → 2025-03-02 10:05 | Outpatient (BNVA) | payer OTHER, SELFPAY | PROVIDERS: PCP Physician Assistant; Visit Provider Nurse Practitioner Family | DX: Z71.2 Person consulting for explanation of examination or test findings (principal); G47.33 Obstructive sleep apnea (adult) (pediatric); F09 Unspecified mental disorder due to known physiological condition | CPT/HCPCS: 99212 ==

== ENCOUNTER 2025-03-31 10:47 | Outpatient (AMB) | payer OTHER, SELFPAY ==
--- OUTSIDE RECORDS SUMMARY | 2025-03-02 06:10 | XMS_ITS ---
Author Organization [facility] Address [address] [place] [phone] Care Team Providers Care Rn Dialysis Name Role Phone Milan Mcgraw Primary Care Provider Unavailab Chinedu Hoff Unavailable [phone] REASON FOR VISIT Patient presents today for DIARRHEA, GERD Encounters Encounter Location Date Provider Diagnosis [facility] [address] [place] [phone] 03/02/2025 Chinedu Kat Plan Of Treatment No Information Progress Notes * ANA CRISTINA LOZANODOB:1950 (74 yo F)Acc No.[id number]:03/02/2025 Progress Notes Patient: ANA CRISTINA ROSENBERG Provider: Lyric Kat MD :1950 A ge:74 Y S ex:Female Date:03/02/2025 Address:[address] [place], [place] [phone] Pcp:Milan Mcgraw Subjective: * Chief Complaints: * 1 . Patient presents today for DIARRHEA, GERD. * Medical History: Objective: * Vitals: Assessment: Plan: * Treatment: * * The named appointment provid er may or may not be the originator of this progress note, and it is not deemed complete until electronically signed by the appointment provider. Sign off status: Pending * Provider: Lyric Kat MD Date: Generated for Hamida duarte/Balta/eTransmitting on: 05/31/2024 12:40 PM EST
--- OUTSIDE RECORDS SUMMARY | 2025-03-30 11:59 | XMS_ITS | Encounter Summary ---
Author Organization [facility] Address [address] [place] [address] Care Team Providers Care Redrying Machine Operator Name Role Phone Milan Mcgraw Primary Care Provider [phone] Reason for Referral * Imaging (Routine) - Authorized Specialty Diagnoses / Procedures Referred By Naa benz Referred To Contact Radiology Diagnoses Malignant neoplasm of overlapping sites of left breast in female, estrogen receptor positive (CMS/HCC V24, CMS/HCC V28) Procedures IR Insert Tunneled CVAD w Subq Port More 5yrs Right Tiffany Nava MD [address] [place] [phone] Phone: tel: fax: [address] [phone] Phone: tel: Referral ID Status Reason Start Date Expiration Date V isits Requested Visits Authorized [id number] Authorized 03/24/2025 03/24/2026 1 1 Reason for Visit * Imaging (Routine) - Authorized Specialty Diagnoses / Procedures Referred By Naa benz Referred To Contact Radiology Diagnoses Malignant neoplasm of overlapping sites of left breast in female, estrogen receptor positive (CMS/HCC V24, CMS/HCC V28) Procedures IR Insert Tunneled CVAD w Subq Port More 5yrs Right Tiffany Nava MD [address] [place] [address] Phone: tel: fax: [address] [phone] Phone: tel: Referral ID Status Reason Start Date Expiration Date V isits Requested Visits Authorized [id number] Authorized 03/24/2025 03/24/2026 1 1 Encounter Details Date Type Department Care Team (Latest Contact Info) Description 03/30/2025 11:59 AM EST - 03/30/2025 11:59 PM EST Hospital Encounter [facility] Interventional Radiology [address] [place] [phone] Malignant neoplasm of overlapping sites of [...] left breast in female, estrogen receptor positive (CMS/[facility] V24, CMS/[facility] V28). Post-Procedure Diagnosis: Same as Pre-Procedure Diagnosis Description of procedure: right chest port placement Performing Provider: Mushtaq Díaz MD Staff Role Cary Lange Live In Housekeeper Mushtaq Díaz MD Radiologist [place], Kevon Rashid, RN CV Staff Jasen Munoz RN CV Staff Ale Echeverria Live In Housekeeper Anesthesia: Conscious Sedation Significant Findings: None Complications: [...] Signed Date: 03/30/2025 15:45 ET Workstation ID: [id number] Transcribed By: Self Edit Transcribed Date: 03/30/2025 [...] Signed Date: 03/30/2025 15:45 ET Workstation ID: [id number] Transcribed By: Self Edit Transcribed Date: 03/30/2025 [...] 03/30/2025 documented in this encounter Care Teams Redrying Machine Operator Relationship Specialty Start Date End Date Milan Mcgraw PA [address] [place] [phone] PCP - General 06/05/23 documented as of this encounter
--- NOTE | 2025-03-31 11:04 | A.OFFPC_ITS ---
Vital Signs 03/31/25 11:06 Height 4 ft 11 in Weight 162 lb 4 oz BMI 32.8 BP 136/84 Blood Pressure Location Lt femoral Position Sitting Pulse 50 Pulse Source Pulse Oximeter Temp 97.1 F Temp Source Temporal Artery Scan Pulse Oximetry (%) 100 Oxygen Delivery Method Room Air Intake Visit Reasons: [facility] 04/08 lt 04/30 Accompanied by: Daughter Allergies mirtazapine (From Remeron) Allergy (Intermediate, Verified 03/31/25 11:08) Hallucinations Medication List - Last Reconciled 03/31/25 by Naty Alvarado MD abemaciclib (Verzenio) 100 mg PO DAILY acetaminophen 325 mg PO Q6H PRN 30 days albuterol sulfate 2.5 mg (3 mL) inhalation Q6H PRN 30 days albuterol sulfate 90 mcg/actuation 2 inhalations inhalation Q6H PRN 30 days amitriptyline 10 mg PO BEDTIME 90 days apixaban (Eliquis) 5 mg PO BID 90 days benzonatate 200 mg PO BID PRN 30 days blood sugar diagnostic (FreeStyle Lite Strips) As directed blood-glucose meter (FreeStyle Lite Meter kit) As directed budesonide-formoterol 80-4.5 mcg/actuation 2 puffs inhalation BID chair, wheel (Wheel chair) Need for transfer wheelchair chair, wheel (Wheel chair) As directed cholecalciferol (vitamin D3) (Vitamin D3) 50 mcg PO DAILY cyclobenzaprine 10 mg PO TID PRN diaper,brief,adult,disposable (Protective Underwear Ex-Large) 2xl size Briefs. diclofenac sodium 1% 2 grams topical BID PRN dicyclomine 20 mg (2 x 10 mg) PO QID 30 days donepezil 5 mg PO DAILY 90 days escitalopram oxalate 5 mg PO DAILY PRN estradiol 0.01%(0.1mg/gram) 1 g vaginal 3XW 90 days fluticasone furoate-vilanterol 200-25 mcg/dose (Breo Ellipta) 1 inh inhalation DAILY 30 days furosemide (Lasix) 20 mg PO DAILY PRN gabapentin 800 mg PO TID 90 days incontinence pad, liner, disp As directed lancets (FreeStyle Lancets) As directed letrozole 2.5 mg PO DAILY memantine 28 mg PO DAILY metoprolol tartrate 50 mg PO BID miscellaneous medical supply (Blood Pressure Cuff) As directed naloxone 4 mg/actuation (Narcan) 4 mg intranasal Q2M 30 days nebulizers (AeroEclipse II Nebulizer) As directed nebulizers As directed oxycodone 15 mg PO Q8H 28 days semaglutide (Ozempic) 1 mg (0.75 mL) subcut QWEEK 4 weeks simvastatin 10 mg PO DAILY 90 days trazodone 200 mg (2 x 100 mg) PO BEDTIME 90 days Tobacco use date assessed: 03/31/25 Fall risk assessment: 1 Fall in past year Last assessed Fall Risk: 03/31/25 Dental Screening Dental Screen Date: 03/31/25 Did you have a dental visit in the last 12 months?: Yes Did you have a dental problem in the last 6 months where you did not have access to dental care?: No Was dental information given to patient?: Patient has dentist HPI HPI Comments History of Present Illness Details The patient is a 74-year-old female presenting for pre-operative clearance for cataract surgery. The procedure is scheduled for the right eye on the of this month and the left eye on April 30. The patient has a history of breast cancer with prior surgeries and continues to follow up with an oncologist at [facility]. She has a history of a double mastectomy and her port was recently removed. She has difficult venous access for blood draws. Past medical history is significant for DVT and PE, for which she follows with a marketing proposal specialist. The patient sees cardiology for cardiomyopathy and NSTEMI after she had elevated troponin with no EKG changes in the past. She currently denies symptoms such as lightheadedness, chest pain, shortness of breath or dizziness. Her current medications include Verzenio, Tylenol, albuterol inhaler, amitriptyline, Eliquis, benzonatate, insulin, vitamin D, cyclobenzaprine, diclofenac cream, dicyclomine, donepezil, escitalopram, estradiol cream, Breo Ellipta, Lasix as needed, gabapentin, memantine, metoprolol, naloxone, nebulizer treatments, oxycodone, Ozempic 1 mg weekly, simvastatin, and trazodone. She no longer takes ibuprofen. The patient reports occasional headaches at nighttime and has breathing issues when it is windy. She also reports having right calf pain. 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 Depression Arthritis IBS (irritable bowel syndrome) GERD (gastroesophageal reflux disease) Recurrent malignant neoplasm of right breast HTN (hypertension) Traumatic complete tear of right rotator cuff Surgical History Hx of excision of mass (08/14/23) History of excision of lesion (05/30/23) S/P bilateral mastectomy History of bilateral mastectomy (02/19/22) Hx of cholecystectomy Hx of appendectomy Hx of blepharoplasty History of esophagogastroduodenoscopy (EGD) History of lumpectomy of both breasts History of surgery History of colonoscopy S/P ANDRÉS-BSO (total abdominal hysterectomy and bilateral salpingo-oophorectomy) History of lumbar fusion Family History Father Heart problem Mother Heart disease Hypertension Colon cancer Epilepsy Maternal Grandmother Esophageal cancer Daughter Breast cancer Brother Lung cancer Sister Breast cancer Sister Breast cancer, Onset Age: 60 Sister COVID Daughter Acute kidney failure Social History Household Members: None Housing: Apartment Are you a primary vision care associate to a significant other at home: No Do you presently have visiting nurse or other home services: No Alcohol intake: never Comment: counts correct Patient Tobacco Use Status: Never used Tobacco e-Cigarette/Vaping Use: Never Used Second Hand Smoke Exposure: No Advance Directives Date on File: 06/13/23 service: No Current occupational status: disabled 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) Hearing needs: No Vision needs: Yes Female Reproductive History Menstrual Age of Menarche: 9 Questionnaire PHQ-9 Over the last 2 weeks, how often have you been bothered by any of the following problems? 1. Little interest or pleasure in doing things: more than half the days 2. Feeling down, depressed, or hopeless: more than half the days 3. Trouble falling or staying asleep, or sleeping too much: more than half the days 4. Feeling tired or having little energy: nearly every day 5. Poor appetite or overeating: nearly every day 6. Feeling bad about yourself - or that you are a failure or have let yourself or your family down: several days 7. Trouble concentrating on things, such as reading the newspaper or watching television: several days 8. Moving or speaking so slowly that other people could have noticed. Or the opposite - being so fidgety or restless that you have been moving around a lot more than usual: several days 9. Thoughts that you would be better off or of hurting yourself in some way: not at all Total score: 15 Depression Screening Interpretation: Positive Depression Screening Follow-up: Existing condition Depression Screening Done: Yes Source: Developed by Drs. Chinedu Romero, Rosemarie Ballard, Mina Lanier and colleagues, with an educational luis fernando from [employer]. Thrive Questionnaire Date Thrive assessed: 10/27/24 I am a: Patient What is your living situation today?: I have a steady place to live Within the past 12 months, did the food you bought not last and you didn't have the money to get more?: Sometimes True Within the past 12 months, did you worry whether your food would run out before you got money to buy more?: Sometimes True Do you have trouble paying for medicines?: No Do you have trouble getting transportation to medical appointments?: No Do you have trouble paying your heating and electricity bill?: No Do you have trouble taking care of your child, family member or friend?: No Do you have trouble with day-to-day activities such as bathing, preparing meals, shopping, managing finances, etc.?: No Are you currently unemployed and looking for a job?: No Are you interested in more education?: No Please select the resources that you would like help with: None Currently or been in a relationship where the following occur: No concerns reported THRIVE Score: 2 AUDIT C Alcohol Use Questionnaire (AUDIT-C) 1. How often do you have a drink containing alcohol?: Never 3. How often do you have six or more drinks on one occasion?: Never Total Score: 0 OLAYINKA-7 AMB Questionnaire OLAYINKA-7 Date OLAYINKA - 7 assessed: 10/27/24 Feeling nervous, anxious, or on edge: 2 = More than half the days Not being able to stop or control worryin = More than half the days Worrying too much about different things: 2 = More than half the days Trouble relaxin = More than half the days Being so restless that it is hard to sit still: 1 = Several days Becoming easily annoyed or irritable: 3 = Nearly every day Feeling afraid as if something awful might happen: 2 = More than half the days Total OLAYINKA-7 score (0-4 normal; 5-9 mild; 10-14 moderate; 15-21 severe): 14 Source: Developed by Drs. Chinedu Romero, Rosemarie Ballard, Mina Lanier and colleagues, with an educational luis fernando from [employer]. Review of Systems Const Details: As per HPI. Physical exam (Primary Care) Vital Signs: Last Vital Signs Temp 97.1 F 03/31/25 11:06 Pulse 50 03/31/25 11:06 BP 136/84 03/31/25 11:06 Pulse Ox 100 03/31/25 11:06 Oxygen Delivery Method Room Air 03/31/25 11:06 BMI result Body Mass Index 32.8 Tobacco/Smoking Status: Tobacco use Status Tobacco use date assessed 03/31/25 03/31/25 11:10 Patient Tobacco Use Status Never used Tobacco 03/31/25 11:05 e-Cigarette/Vaping Use Never Used 03/31/25 11:05 PHQ-9: PHQ-9 Score PHQ-9: Total score 15 03/31/25 11:36 Depression Screening Interpretation: Positive Depression Screening Follow-up: Existing condition Thrive Assessment: Date of Thrive Assessment Date Thrive assessed 10/27/24 03/31/25 11:05 Currently or been in a relationship where the following occur: No concerns reported Const Other: Pertinent findings are in BOLD GENERAL APPEARANCE NAD, activity normal for age, well developed/ well nourished, no cyanosis, pallor, or diaphoresis. EYES lids/conjunctiva normal. EARS/NOSE/THROAT Mucous membranes moist, nares normal, lips/teeth normal uvula midline without oral pharyngeal erythema, exudate or swelling TMs normal bilaterally. No lymphangitis/lymphedema. HEAD/NECK normocephalic atraumatic, no facial trauma, neck is supple. RESPIRATORY respiratory effort normal, speaks in full sentences, no tripod position, no accessory muscle use. Lungs clear to auscultation without rhonchi, wheezes, rales CARDIAC Regular rate and rhythm, no edema. ABDOMINAL Soft, ND/NT. No evidence of fluid wave. No pulsatile masses on exam, rebound tenderness, Hinton sign or pain over Mcburney's point. MUSCLES/EXTREMITIES No abnormal range of motion, no swelling. Right lower extremity tenderness. SKIN Warm, pink and dry. No rashes, dermatoses, petechiae or lesions. NEUROLOGICAL Speech is clear and appropriate. Normal level of consciousness. Gait and coordination are normal. generalized weakness, uses cane for ambulation. PSYCH Normal mood and affect. Judgement/competence is appropriate Office Procedures Flu Questionnaire Does the patient have a severe egg allergy?: No Does the patient have severe life threatening allergies?: No Does the patient have a fever or illness today?: No Has the patient ever had Guillain-Midway Syndrome?: No Has the patient ever had any past reaction to a flu shot?: No Immunizations Fluarix [id number] (PF) 45 mcg (15 mcg x 3)/0.5 mL IM syringe Performing Provider: Naty Alvarado MD [facility] Administered by: Kyung Cisneros CMA on 03/31/25 11:37 Dose Route Admin Location Dispensed Lot Number Expiration Date [facility] [employer] 0.5 mL IM Left Deltoid 0.5 mL [id number] 11/23/25 53498-364-11 [employer] Given Date VIS Provided VIS Publication Date 03/31/25 Single Vaccine 24 Eligibility Eligibility Date Funding Source Not [facility] Eligible 03/31/25 Private Coding Level of Care Code Est Pt Level 3 (37956) Diagnoses Pre-op exam Z01.818 Acute deep vein thrombosis (DVT) of right lower extremity, unspecified vein I82.401 Affected thrombotic vein of extremity: unspecified vein of extremity Chronicity: acute Laterality: right Time Spent (min) 30 Assessment & Plan Assessment & Plan (1) Pre-op exam: Code(s): Z01.818 - Encounter for other preprocedural examination Category: Medical Plan: - Patient is scheduled for right eye cataract surgery on the of the month and left eye surgery on April 30. - Pre-operative blood work and an EKG have been ordered. - EKG in clinic today with no sinus rythm and left axis deviation unchanged from prior. - Due to difficult venous access, labs will be drawn at [facility], with instructions for results to be sent to this office. - The plan is to continue Eliquis without interruption through the perioperative period, as cataract surgery has a low risk of bleeding. - Surgical clearance is pending review of the ordered labs. (2) DVT of leg (deep venous thrombosis): Code(s): I82.409 - Acute embolism and thrombosis of unspecified deep veins of unspecified lower extremity Category: Medical Qualifiers: Affected thrombotic vein of extremity: unspecified vein of extremity Chronicity: acute Laterality: right Qualified Code(s): I82.401 - Acute embolism and thrombosis of unspecified deep veins of right lower extremity Plan: Right calf tenderness and swelling on physical exam. Stat US ordered. Plan I discussed the plan for obtaining pre-operative clearance for the patient's upcoming cataract surgeries. I ordered pre-operative blood work and and EKG. We addressed the patient's difficult venous access, and I provided an order for the labs to be performed at [facility], instructing the patient's daughter to ensure the results are sent to our office for review. EKG with sinus rythm and left axis deviation which is unchanged from prior. Regarding anticoagulation, I recommended she continues Eliquiss without interruption given the low bleeding risk of cataract surgery. I informed them that clearance will be finalized upon satisfactory review of the pending lab and EKG results. We also administered the influenza vaccine today as requested. Orders: Orders Comprehensive Met. Panel Today Z01.818 - Encounter for other preprocedural examination Complete Blood Count no Diff Today Z01.818 - Encounter for other preprocedural examination Influenza [id number] Immunization Today Z23 - Encounter for immunization US venous duplex LE RT Today I82.409 - Acute embolism and thrombosis of unspecified deep veins of unspecified lower extremity
[2025-03-31 11:06] VITALS: BP 136/84; PULSE 50; TEMP 36.2; O2SAT 100; BMI 32.8
--- OUTSIDE RECORDS SUMMARY | 2025-03-31 12:40 | XMS_ITS | Clinical Summary ---
Author Organization [facility] Address [address] [place] [phone] Phone Care Team Providers Care Discharge Planner Name Role Phone Milan Mcgraw Primary Care [...] a day. for 30 days 4 Active atorvastatin (LIPITOR) 20 mg tablet Take 1 tablet (20 mg total) by mouth every night at bedtime. 4 Active cholecalcifero l (VITAMIN D-3) 50 mcg (2,000 unit) capsule 4 Active fluticasone furoate-vilant Anat (Breo Ellipta) 200-25 mcg/dose inhaler 4 Active gabapentin (NEURONTIN) 800 mg tablet Take 1 tablet (800 mg total) by mouth 3 (three) times a day. 3 Active metoprolol tartrate (LOPRESSOR) 50 mg tablet Take 1 tablet (50 mg total) by mouth 2 (two) times a day. 4 Active oxyCODONE (ROXICODONE) 10 mg immediate release tablet TAKE 1 TABLET BY MOUTH EVERY 8 HOURS FOR PAIN FOR 28 DAYS CANCER RELATED PAIN- 3 Active traZODone (DESYREL) 100 mg tablet TAKE [...] MOUTH DAILY 30 tablet 5 5 Active aspirin 81 mg chewable tablet Chew 1 tablet (81 mg total) by mouth every night at bedtime. 3 03/30/20 25 Discontinued cyclobenzaprin e (FLEXERIL) 5 mg tablet TAKE 2 TABLETS ORALLY 3 TIMES A DAY NEEDED FOR FOR MUSCLE SPASM 4 03/30/20 25 Discontinued dicyclomine (BENTYL) 10 mg capsule 4 03/30/20 25 Discontinued omeprazole (PriLOSEC) [address] capsule Take 1 capsule (20 mg total) by mouth 1 (one) time each day. 3 03/30/20 25 Discontinued predniSONE (DELTASONE) 10 mg tablet 4 03/30/20 25 Discontinued Active Problems Problem Noted Date [...] Encounters Date Type Department Care Team Description 03/30/2025 11:59 AM EST - 03/30/2025 11:59 PM EST Hospital Encounter [facility] Interventional Radiology [address] [place] [address] Malignant neoplasm of overlapping sites of left breast in female, estrogen receptor positive (CMS/HCC V24, CMS/HCC V28) Discharge Disposition: Home or Self Care 03/24/2025 Telephone [facility] Hematology Oncology [address] [place] [address] Tiffany Chowdhury MD 01/21/2025 12:00 PM EDT - 01/21/2025 11:59 PM EDT Hospital Encounter [facility] Nuclear Medicine [address] [place] [address] Discharge Disposition: Home or Self Care 01/21/2025 11:15 AM EDT Office Visit [facility] Hematology Oncology [address] [place] [address] Tiffany Chowdhury MD Malignant neoplasm of upper-outer quadrant of right breast in female, estrogen receptor positive (CMS/HCC V24, CMS/HCC V28) (Primary Dx); Cancer, 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 (CMS/HCC V24, CMS/HCC V28); Osteopenia of multiple sites; Multiple subsegmental pulmonary emboli without acute cor pulmonale (CMS/HCC V24, CMS/HCC V28); Vitamin D deficiency 01/21/2025 9:03 AM EDT - 01/21/2025 11:59 PM EDT Hospital Encounter [facility] CT Scan [address] [place] [phone] Malignant neoplasm of overlapping sites of left breast in female, estrogen receptor positive ([facility] V24, [facility] V28) Discharge Disposition: Home or Self Care 01/21/2025 9:00 AM EDT - 01/21/2025 11:59 PM EDT Hospital Encounter [facility] Nuclear Medicine [address] [place] [phone] Malignant neoplasm of overlapping sites of left breast in female, estrogen receptor positive ([facility] V24, [facility] V28) Discharge Disposition: Home or Self Care from Last 3 Months Surgical History Surgery Date Site/Laterality Comments MASTECTOMY PROCEDURE:MASTECTOMY APPENDECTOMY PROCEDURE:APPENDECTOMY CHOLECYSTECTOMY PROCEDURE:CHOLECYSTECTOMY COLONOSCOPY PROCEDURE:COLONOSCOPY Medical History Medical History Date Comments Breast cancer ([facility] V24, [facility] V28) DX:Breast cancer ([facility]) Hypertension DX:Hypertension COPD (chronic obstructive pu lmonary disease) ([facility] V24, [facility] V28) DX:COPD (chronic o bstructive pulmonary disease) [...] Mass Index 35.87 03/30/2025 12:22 PM EST Plan of Treatment Health Maintenance Due Date [...] on patient's age to complete this topic Medical Devices Implanted Type Area Pants Busheler Device Identifier Shelf Expiration Date Model / Serial / Lot Port Pwr Isp Attach 6f Interm Obdulia - [id number] - [id number] Implanted:Qty: 1 on 03/30/2025 by Mushtaq Díaz MD at [facility] Central/Jaqueline pheral Catheters and Ports Right: Chest Wall CR BARD PERIPHERAL VASCULAR [id number] 11/23/2025 [id number] / [id number] / [id number] Procedures Procedure Name Priority Date/Time Associated Diagnosis Comments IR INSERT TUNNELED CVAD W SUBQ PORT MORE 5YRS RIGHT Routine 03/30/2025 3:31 PM EST Malignant neoplasm of overlapping sites of left breast in female, estrogen receptor positive (CMS/HCC V24, CMS/HCC V28) NM BONE/JOINT SCAN WHOLE BODY Routine 01/21/2025 [...] V28) from Last 3 Months Results * IR Insert Tunneled CVAD w [...] Signed Date: 03/30/2025 15:45 ET Workstation ID: [id number] Transcribed By: Self Edit Transcribed Date: 03/30/2025 [...] Signed Date: 03/30/2025 15:45 ET Workstation ID: [id number] Transcribed By: Self Edit Transcribed Date: 03/30/2025 15:44 ET us Subramony Elijah LEMUS IMG IR PROCEDURES F inal Result * NM Bone/Joint Scan Whole Body (01/21/2025 [...] Signed Date: 01/29/2025 13:29 ET Workstation ID: [id number] Transcribed By: Self Edit Transcribed Date: 01/29/2025 [...] Signed Date: 01/29/2025 13:29 ET Workstation ID: [id number] Transcribed By: Self Edit Transcribed Date: 01/29/2025 13:23 ET Subramony Subramonia-Melissa EDWARDS NM PROCEDURES F inal Result * CT [...] Signed Date: 02/01/2025 15:22 ET Workstation ID: [id number] Transcribed By: Self Edit Transcribed Date: 02/01/2025 [...] Signed Date: 02/01/2025 15:22 ET Workstation ID: [id number] Transcribed By: Self Edit Transcribed Date: 02/01/2025 14:52 ET Subramjose angel Nava MD IMG CT PROCEDURES F inal Result * (ABNORMAL) CBC auto differential (01/20/2025 2:18 PM EDT) WBC 5.4 4.8 - 10.8 K/mcL LAB HEMETOLOGY METHOD 01/20/2025 6:04 PM EDT [facility] RBC 4.00 3.80 - 4.80 M/mcL LAB HEMETOLOGY METHOD 01/20/2025 6:04 PM EDT [facility] Hemoglobin 12.5 11.5 - 16.0 g/dL LAB HEMETOLOGY METHOD 01/20/2025 6:04 PM EDT [facility] Hematocrit 39.5 35.0 - 47.0 % LAB HEMETOLOGY METHOD 01/20/2025 6:04 PM EDT [facility] MCV 98.3(H) 79.0 - 98.0 FL LAB HEMETOLOGY METHOD 01/20/2025 6:04 PM EDT [facility] MCH 31.1 27.0 - 32.0 pcg LAB HEMETOLOGY METHOD 01/20/2025 6:04 PM EDT [facility] MCHC 31.6(L) 32.0 - 37.0 g/dL LAB HEMETOLOGY METHOD 01/20/2025 6:04 PM EDT [facility] RDW 13.8 11.0 - 15.0 % LAB HEMETOLOGY METHOD 01/20/2025 6:04 PM EDT [facility] Platelets 348 130 - 400 K/mcL LAB HEMETOLOGY METHOD 01/20/2025 6:04 PM [facility] MPV 9.9 7.0 - 11.0 FL LAB HEMETOLOGY METHOD 01/20/2025 6:04 PM [facility] NRBC 0.0 <1.0 % LAB HEMETOLOGY METHOD 01/20/2025 6:04 PM [facility] NRBC Absolute 0.00 <0.10 K/mcL LAB HEMETOLOGY METHOD 01/20/2025 6:04 PM [facility] Neutrophils Relative 55.2 % LAB HEMETOLOGY METHOD 01/20/2025 6:04 PM [facility] Comment:This is an appended report. These results have been appended to a previously preliminary verified report. Lymphocytes Relative 36.6 % LAB HEMETOLOGY METHOD 01/20/2025 6:04 PM [facility] Comment:This is an appended report. These results have been appended to a previously preliminary verified report. Monocytes Relative 5.2 % LAB HEMETOLOGY METHOD 01/20/2025 6:04 PM [facility] Comment:This is an appended report. These results have been appended to a previously preliminary verified report. Eosinophils Relative 1.7 % LAB HEMETOLOGY METHOD 01/20/2025 6:04 PM [facility] Comment:This is an appended report. These results have been appended to a previously preliminary verified report. Basophils Relative 0.9 % LAB HEMETOLOGY METHOD 01/20/2025 6:04 PM [facility] Comment:This is an appended report. These results have been appended to a previously preliminary verified report. Immature Granulocytes Relative 0.4 % LAB HEMETOLOGY METHOD 01/20/2025 6:04 PM [facility] Comment:This is an appended report. These results have been appended to a previously preliminary verified report. Neutrophils Absolute 2.95 1.50 - 7.00 K/mcL LAB HEMETOLOGY METHOD 01/20/2025 6:04 PM [facility] Comment:This is an appended report. These results have been appended to a previously preliminary verified report. Lymphocytes Absolute 1.96 1.00 - 5.00 K/mcL LAB HEMETOLOGY METHOD 01/20/2025 6:04 PM T [facility] Comment:This is an appended report. These results have been appended to a previously preliminary verified report. Monocytes Absolute 0.28 0.20 - 1.00 K/mcL LAB HEMETOLOGY METHOD 01/20/2025 6:04 PM [facility] Comment:This is an appended report. These results have been appended to a previously preliminary verified report. Eosinophils Absolute 0.09 0.00 - 0.50 K/mcL LAB HEMETOLOGY METHOD 01/20/2025 6:04 PM [facility] Comment:This is an appended report. These results have been appended to a previously preliminary verified report. Basophils Absolute 0.05 0.00 - 0.20 K/mcL LAB HEMETOLOGY METHOD 01/20/2025 6:04 PM [facility] Comment:This is an appended report. These results have been appended to a previously preliminary verified report. Immature Granulocytes Absolute 0.02 0.00 - 0.03 K/mcL LAB HEMETOLOGY METHOD 01/20/2025 6:04 PM T [facility] Comment:This is an appended report. These results have been appended to a previously preliminary verified report. Blood Venous blood specimen / Unknown Venipuncture / Unknown 01/20/2025 2:18 PM EDT 01/20/2025 4:29 PM EDT Tiffany Nava MD LAB BLOOD ORDERABLE S Final Result [facility] [address] [place] [address], * Cancer antigen 27-29 (01/20/2025 2:18 PM EDT) CA 27.29 30.9 <38.6 U/mL 01/26/2025 2:33 PM EDT [facility] Comment: The Siemens [employer]ia [employer] (ROOF)aur [id number] Chemiluminescent Immunoassay is used. Results obtained with different assay methods or kits cannot be used interchangeably. Results cannot be interpreted as absolute evidence of the presence or absence of malignant disease. Test performed at [facility], [address], [place] [address] Mary Albrecht MD, PhD - Network Systems Integrator Blood Venous blood specimen / Unknown Venipuncture / Unknown 01/20/2025 2:18 PM EDT 01/20/2025 4:28 PM EDT Subramjose angel Nava MD LAB BLOOD ORDERABLE S Final Result [facility] [address] [place] [address] * (ABNORMAL) Comprehensive metabolic panel (01/20/2025 2:18 PM EDT) Pathologist [facility] Sodium 138 133 - 145 mmol/L LAB CHEMISTRY METHOD 01/20/2025 5:57 PM EDT [facility] Potassium 4.6 3.5 - 5.5 mmol/L LAB CHEMISTRY METHOD 01/20/2025 5:57 PM EDT [facility] Chloride 105 96 - 110 mmol/L LAB CHEMISTRY METHOD 01/20/2025 5:57 PM EDT [facility] CO2 28 21 - 32 mmol/L LAB CHEMISTRY METHOD 01/20/2025 5:57 PM EDT [facility] Anion Gap 5 3 - 11 LAB CHEMISTRY METHOD 01/20/2025 5:57 PM EDT [facility] Glucose 52(L) 70 - 100 mg/dL LAB CHEMISTRY METHOD 01/20/2025 5:57 PM [facility] BUN 22 5 - 25 mg/dL LAB CHEMISTRY METHOD 01/20/2025 5:57 PM [facility] Creatinine 1.60(H) 0.50 - 1.10 mg/dL LAB CHEMISTRY METHOD 01/20/2025 5:57 PM [facility] eGFR 33(L) >=60 mL/min/1. 73m2 LAB CHEMISTRY METHOD 01/20/2025 5:57 PM [facility] Comment:Calculation based on the Chronic Kidney Disease Epidemiology Collaboration (CKD-EPI) equation refit without adjustment for race. BUN/Creatinine Ratio 13.8 LAB CHEMISTRY METHOD 01/20/2025 5:57 PM [facility] Calcium 9.7 8.5 - 10.5 mg/dL LAB CHEMISTRY METHOD 01/20/2025 5:57 PM [facility] AST (SGOT) 17 10 - 42 unit/L LAB CHEMISTRY METHOD 01/20/2025 5:57 PM [facility] ALT (SGPT) 21 10 - 60 unit/L LAB CHEMISTRY METHOD 01/20/2025 5:57 PM [facility] Alkaline Phosphatase 69 42 - 121 unit/L LAB CHEMISTRY METHOD 01/20/2025 5:57 PM [facility] Total Protein 7.1 6.0 - 8.0 g/dL LAB CHEMISTRY METHOD 01/20/2025 5:57 PM [facility] Albumin 4.0 3.2 - 5.0 g/dL LAB CHEMISTRY METHOD 01/20/2025 5:57 PM [facility] Total Bilirubin 0.3 0.0 - 1.4 mg/dL LAB CHEMISTRY METHOD 01/20/2025 5:57 PM [facility] Blood Venous blood specimen / Unknown Venipuncture / Unknown 01/20/2025 2:18 PM EDT 01/20/2025 4:28 PM EDT Tiffany Nava MD LAB BLOOD ORDERABLE S Final Result [facility] [address] [place] [address], from Last 3 Months Insurance [facility] [employer] Member Subscriber Plan / Payer (Ef fective 2014-Present) Name:Beatriz Herbert Relation to Subscriber:Self Name:Beatriz Herbert Payer ID:[id number] Group ID:[id number] Type:Not on file Address: [place] [address] [place] [phone] Care Teams Discharge Planner Relationship Specialty Start Date End Date Milan Mcgraw PA [address] [place] [address] PCP - General 06/05/23
--- OUTSIDE RECORDS SUMMARY | 2025-03-31 12:40 | XMS_ITS | Clinical Summary ---
Author Organization [facility] Address [address] [place] [address] Care Team Providers Care Precision Agriculture Specialist Name Role Phone Milan Mcgraw Primary Care Provider [phone] Allergies No known active allergies Medications Medication [...] from 02/19/2022:Stage IA(pT1c, pN1, cM0, G2, ER+, HI+, HER2-) - Signed by Tiffany Villavicencio MD [...] age to complete this topic Care Teams Precision Agriculture Specialist Relationship Specialty Start Date End Date Milan Mcgraw PA [address] [place] [phone] PCP - General Physician Band Top Maker 06/05/23
--- OUTSIDE RECORDS SUMMARY | 2025-03-31 12:40 | XMS_ITS ---
Author Organization [facility] Address [address] [place] [address] Phone Care Team Providers Care Mortgage Loan Originator Name Role Phone Milan Mcgraw Primary Care Provider Active Problems Problem Noted Date Diagnosed Date Chest pain on breathing 11/27/2023 Cancer, 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 ([facility]/HCC V24, CMS/HCC V28) 10/01/2023 Acute cystitis without [...] multiple sites 06/19/2023 Vitamin D deficiency 06/19/2023 Current Treatment and Therapy Plans No current plan information found. Past Treatment and Therapy Plans No past plan information found. Lifetime Dose Tracking * Chemical Lifetime Dose Automatic Entry Manual Entr y Fluoro Time 0.1 minutes 0.1 minutes 0 minutes
--- OUTSIDE RECORDS SUMMARY | 2025-03-31 12:41 | XMS_ITS | Patient Health Record ---
Author Organization [facility] Address [address] [place] [address] Care Team Providers Care Glass Driller Name Role Phone Milan Mcgraw Primary Care Provider Unavailab Chinedu Hoff Unavailable [phone] Reason For Referral No Information Medications Medication SIG (Take, Route, Frequency, Duration) Notes Start Date End Date Status traZODone HCl 100 MG 1 tablet at bedtime as needed Orally Once a day Active fentaNYL 12 MCG/HR (Schedule II Drug) A PPLY 1 PATCH EVERY 48 HOURS Transdermal; Duration: 30 Active Naproxen 500 MG 1 tablet Orally ever y 12 hrs Active ProAir HFA 108 (90 Base) MCG/ACT 2 puffs as needed Inhalation Active DULoxetine HCl 60 MG TK ONE C PO ONCE A DAY Oral; Duration: 90 Active Citalopram Hydrobromide 20 MG TK 1 T PO QD Oral; Duration: 30 Active Metoprolol Tartrate 25 MG TK 1 T PO BID WF Oral; Duration: 90 Active Spironolactone 25 MG TK 1 T PO QD WITH F OOD Oral; Duration: 90 Active Dicyclomine HCl 10 MG 1-2capsules Orally Four times a day prn abdominal pain/cramps; Duration: 30 day(s) Active Gabapentin Active oxyCODONE HCl 30 MG (Schedule II Drug) T ERIC 1 TABLET EVERY 4 HOURS MAX 5 TABS A DAY Oral; Duration: 30 Active Amitriptyline HCl 10 MG TK 1 T PO HS Ora l; Duration: 90 Active Imodium A-D 2 MG 1-2 PO QID prn diarr hea; Duration: 30 days Active Omeprazole 20 MG 1 capsule Orally Onc e a day Active MiraLax (colon prep) 8.3 ounce ((238) grams mixed with gatorade or crystal light orally begin at 5:00 p.m. the day before the procedure; Duration: 1 day 11/25/2019 Active Dulcolax (colon prep) 5 MG take at 3:00 p.m and 7:00p.m. Orally two tablets twice a day for one day; Duration: 1 day 11/25/2019 Active Immunizations Vaccine Route [...] Problem Status W/U Status Risk Notes Problem Screening for malignant neoplasm of colon (763701811) Encounter for screening for malignant neoplasm of colon (Z12.11) Active confirmed Problem Irritable bowel syndrome with diarrhea (038364980) Irritable bowel syndrome with diarrhea (K58.0) Active confirmed Problem Gastroesophageal reflux disease without esophagitis (036636817) Gastroesophageal reflux disease without esophagitis (K21.9) Active confirmed Problem Family History of Cancer of Colon (Situation) (315308121) Family history of colon cancer (Z80.0) Active confirmed Encounters Encounter Location Date Provider Diagnosis [facility] [address] [facility] [address] [place] [address] 03/02/2025 Chinedu Kat Plan Of Treatment Future Test Test Name Order Date UPPER GI ENDOSCOPY 11/02/2014 COLONOSCOPY 11/02/2014 COLONOSCOPY 11/25/2019 Insurance Providers Payer Name Payer Address Payer Phone Subscriber Number Group Number Insured Name Patient Relationship to Insured Coverage Start Date Coverage End Date [facility] [address] [place] [address] [id number] ANA CRISTINA LOZANO Self - patient is the insured MEDICAID OF [employer] [address] [place] [id number] ANA CRISTINA LOZANO Self - patient is [...]
--- OUTSIDE RECORDS SUMMARY | 2025-03-31 12:41 | XMS_ITS | Data Portability ---
Author Organization [facility] Address [address] [place] [address] Care Team Providers Care Certified First Assistant Name Role Phone [facility] Primary Care Provider [phone] Assessment No assessment recorded. Plan of Treatment [...] Respiratory rate Body temperature Heart rate Systolic And Diastolic Provider Name and Address Organization Details Last Updated DateTime 3 96 % 96 % 14 /min 98.9 [degF] 90 /min 131/90 mm[Hg] Not Available [employer] - production 3 19:00:15 Social History None recorded. Functional Status None recorded. Mental Status None recorded. Family History Nothing Reported. Medical History No medical history recorded. Gynecological HistoryNo gynecological history recorded. Obstetrics History GPAL:G 0 P 0 0 0 0 Past Encounters Encounter ID Performer Location Encounter Start Date Encounter Closed Date Diagnosis/Indication Diagnosis SNOMED-CT Code Diagnosis ICD10 Code Diagnosis IMO Codes Diagnosis Note [id number] Jung Mace MD [address] [phone] 12/22/2022 19:00:13 12/24/2022 16:54:38 Lightheadedness [id number] R42 Dizziness/ weakness/l ightheadne ss in setting [...] Graham Member ID Guarantor Name 12/29/2023 1 [facility] - DOS ON OR AFTER 2022 - DUAL ELIGIBLE - [facility] OPTIONS AND ONE CARE (MEDICARE REPLACEMENT/ADV ANTAGE - HMO) Beatriz Herbert [id number] Beatriz Herbert Notes Date Note Type Note Provider Name and Address Organization Details Recorded Time 12/22/2022 text/html ROS as noted in the HPI CRC Nursing Assessment: Chief Complaints: Syncope/Dizziness/L ightheadedness Allergies: Unknown Comments: CG reports the member is feeling unwell and anxious - Dizziness and SOB - CG is concerned she may have been having a panic attack. Denies fever/chills - Member is speaking full sentences. Wesley RICCI ................... ................... ................... ................... ................... ................... ................... ........ Auto Bumper Mechanic Note From Juan Parisi: Dispatched to above residence for the female patient with complaint of weakness, pain, shortness of breath as reported by career and technology education teacher. Upon arrival, pt found laying in bed in no obvious acute distress. Patient is malaysian speaking only and all information gathered comes from career and technology education teacher who is bilingual. Patient states to CG my left leg is swollen, hot, red, and i think i have a blood clot . During exam, there was no noted swelling, temp difference, or discoloration. Patient reports pain localized to the anterior of her fowler about alf up. No noted trauma, pt denies any [...] ................... ........ Disposition: Fulfilled Jung Mace MD [address] [facility], [place], [address], JAMES COTTO 12/22/2022 20:21:24 OBGyn Episode No OBEpisode recorded.
== END 2025-03-31 12:56 | disposition home or self-care (01) ==
LOC: HO.HMCH 10:48
PROVIDERS: PCP Physician Assistant; Visit Provider Internal Medicine
DX: Z01.818 Encounter for other preprocedural examination (principal); I82.401 Acute embolism and thrombosis of unspecified deep veins of right lower extremity; Z23 Encounter for immunization

== ENCOUNTER → 2025-03-31 10:47 | Outpatient (BNVA) | payer OTHER, SELFPAY | PROVIDERS: PCP Physician Assistant; Visit Provider Internal Medicine | DX: Z01.818 Encounter for other preprocedural examination (principal); H26.9 Unspecified cataract; I82.401 Acute embolism and thrombosis of unspecified deep veins of right lower extremity; Z85.3 Personal history of malignant neoplasm of breast; Z86.711 Personal history of pulmonary embolism; Z23 Encounter for immunization | CPT/HCPCS: 36415; 80053; 85027; 90471; 90656; 96127; 99212 ==

== ENCOUNTER 2025-03-31 16:06 | Outpatient (REF) | payer OTHER, SELFPAY ==
[2025-03-31 16:59] LABS: Alanine Aminotransferase 32 U/L (0-31); Albumin Level 4.4 g/dL (3.5-5.0); Alkaline Phosphatase 70 U/L (39-117); Anion Gap 15 (12-20); Aspartate Amino Transferase 35 U/L (5-31); Blood Urea Nitrogen 30 mg/dL (9-16); Calcium 9.5 mg/dL (8.4-10.2); Carbon Dioxide 24 mmol/L (22-29); Chloride 105 mmol/L (96-108); Estimated Glomerular Filt Rate 29; Potassium 3.3 mmol/L (3.3-5.1); Sodium 141 mmol/L (135-145); Total Protein 7.5 g/dL (6.5-8.0)
[2025-03-31 17:00] LABS: Hematocrit 37.7 % (37.0-47.0); Hemoglobin 12.5 g/dl (12.0-16.0); Mean Corpuscular HGB Conc 33.2 g/dl (31.0-35.0); Mean Corpuscular Hemoglobin 32.7 pg (27.0-33.0); Mean Corpuscular Volume 98.7 fL (80.0-98.0); NRBC Abs Auto 0.000 X10*3/uL (0.0-0.012); NRBC Pct Auto 0.0 /100WBC (0.0-0.2); Platelet Count 333 X10*3/uL (160-400); Red Blood Count 3.82 X10*6/uL (4.20-5.50); White Blood Count 6.8 X10*3/uL (4.8-10.8)
== END 2025-03-31 16:07 | disposition home or self-care (01) ==
LOC: HO.US 16:06
PROVIDERS: PCP Physician Assistant; Visit Provider Internal Medicine
DX: Z13.89 Encounter for screening for other disorder (principal)
CPT/HCPCS: 36415; 80053; 85027

== ENCOUNTER → 2025-03-31 16:34 | Outpatient (BNV) | payer OTHER, SELFPAY | PROVIDERS: PCP Physician Assistant; Visit Provider Radiology Diagnostic Radiology | DX: I82.409 Acute embolism and thrombosis of unspecified deep veins of unspecified lower extremity (principal) | CPT/HCPCS: 93971 ==

== ENCOUNTER 2025-04-01 11:25 | Outpatient (REF) | payer OTHER, SELFPAY ==
--- OUTSIDE RECORDS SUMMARY | 2025-03-30 11:59 | XMS_ITS | Encounter Summary ---
Author Organization [facility] Address [address] [place] [address] Care Team Providers Care Metalsmith Helper Name Role Phone Milan Mcgraw Primary Care Provider [phone] Reason for Referral * Imaging (Routine) - Authorized Specialty Diagnoses / Procedures Referred By Naa benz Referred To Contact Radiology Diagnoses Malignant neoplasm of overlapping sites of left breast in female, estrogen receptor positive (CMS/HCC V24, CMS/HCC V28) Procedures IR Insert Tunneled CVAD w Subq Port More 5yrs Right Tiffany Nava MD [address] [place] [phone] Phone: tel: fax: [address] [phone] Phone: tel: Referral ID Status Reason Start Date Expiration Date V isits Requested Visits Authorized [id number] Authorized 03/24/2025 03/24/2026 1 1 Reason for Visit * Imaging (Routine) - Authorized Specialty Diagnoses / Procedures Referred By Naa benz Referred To Contact Radiology Diagnoses Malignant neoplasm of overlapping sites of left breast in female, estrogen receptor positive (CMS/HCC V24, CMS/HCC V28) Procedures IR Insert Tunneled CVAD w Subq Port More 5yrs Right Tiffany Nava MD [address] [place] [address] Phone: tel: fax: [address] [phone] Phone: tel: Referral ID Status Reason Start Date Expiration Date V isits Requested Visits Authorized [id number] Authorized 03/24/2025 03/24/2026 1 1 Encounter Details Date Type Department Care Team (Latest Contact Info) Description 03/30/2025 11:59 AM EST - 03/30/2025 11:59 PM EST Hospital Encounter [facility] Interventional Radiology [address] [place] [phone] Malignant neoplasm of overlapping sites of left breast in female, estrogen receptor positive (CMS/HCC V24, CMS/HCC V28) Discharge Disposition: Home or Self Care Social History Tobacco Use Types Packs/Day Years Used Date Smoking Tobacco: Former Smokeless Tobacco: Former Alcohol Use Standard Drinks/Week Comments Not Currently 0 (1 standard drink = 0.6 oz pur e alcohol) Comments Unknown Sex and Gender Information Value Date Recorded Sex Assigned at Not on file Legal Sex Female 9:04 AM EST Gender Identity Not on file Sexual Orientation Not on file documented as of this encounter Last Filed Vital Signs Vital Sign Reading Time Taken Comments Blood Pressure 167/85 03/30/2025 3:46 PM EST Pulse 71 03/30/2025 4:06 PM EST Temperature 36.8 C (98.2 F) 03/30/2025 12:22 PM EST Respiratory Rate 14 03/30/2025 3:06 PM EST Oxygen Saturation 98% 03/30/2025 4:06 PM EST Inhaled Oxygen Concentration - - Weight 72.6 kg (160 lb) 03/30/2025 12:22 PM EST Height 142.2 cm (4' 8 ) 03/30/2025 12:22 PM EST Body Mass Index 35.87 03/30/2025 12:22 PM EST documented in this encounter Medications at Time of Discharge abemaciclib (Verzenio) 100 mg tablet TAKE 1 TABLET BY MOUTH DAILY 30 tablet 5 12/07/2024 amitriptyline (ELAVIL) 10 mg tablet TAKE 2-3 TABS BY MOUTH AT BEDTIME 05/10/2023 apixaban (Eliquis) 5 mg tablet Take 1 tablet (5 mg total) by mouth 2 (two) times a day. for 30 days 05/30/2023 atorvastatin (LIPITOR) 20 mg tablet Take 1 tablet (20 mg total) by mouth every night at bedtime. 05/30/2023 cholecalciferol (VITAMIN D-3) 50 mcg (2,000 unit) capsule 06/16/2023 fluticasone furoate-vilantero L (Breo Ellipta) 200-25 mcg/dose inhaler 06/19/2023 gabapentin (NEURONTIN) 800 mg tablet Take 1 tablet (800 mg total) by mouth 3 (three) times a day. 04/11/2023 letrozole (FEMARA) 2.5 mg tablet Take 1 tablet (2.5 mg total) by mouth 1 (one) time each day Take with or without food.Take 1 tablet (2.5 mg total) by mouth daily for 30 days 90 tablet 3 09/22/2024 09/22/2025 metoprolol tartrate (LOPRESSOR) 50 mg tablet Take 1 tablet (50 mg total) by mouth 2 (two) times a day. 05/30/2023 oxyCODONE (ROXICODONE) 10 mg immediate release tablet TAKE 1 TABLET BY MOUTH EVERY 8 HOURS FOR PAIN FOR 28 DAYS CANCER RELATED PAIN- 05/22/2023 traZODone (DESYREL) 100 mg tablet TAKE 2 TABLETS BY MOUTH AT BEDTIME 05/13/2023 acetaminophen (TYLENOL) 325 mg tablet Take 1 tablet (325 mg total) by mouth every 6 hours as needed. 04/10/2023 albuterol 2.5 mg /3 mL (0.083 %) nebulizer solution 06/18/2023 albuterol HFA (PROAIR HFA ; PROVENTIL HFA ; VENTOLIN HFA) 90 mcg/actuation inhaler 06/19/2023 documented as of this encounter Discharge Disposition Disposition Code Departure Means Destination Home or Self Care documented in this encounter Procedure Notes * Jasen Munoz RN - 03/30/2025 3:30 PM EST RIGHT UPPER CHEST SURGICAL INCISIONS CLEAND, DRY AND INTACT. NO BLEEDING OR HEMATOMA NOTED. * Mushtaq Díaz MD - 03/30/2025 3:25 PM EST Interventional Radiology Brief Postprocedure Note Attending: No att. providers found Pre-Procedure Diagnosis: The encounter diagnosis was Malignant neoplasm of overlapping sites of left breast in female, estrogen receptor positive (CMS/[facility] V24, CMS/[facility] V28). Post-Procedure Diagnosis: Same as Pre-Procedure Diagnosis Description of procedure: right chest port placement Performing Provider: Mushtaq Díaz MD Staff Role Cary Lange Natural Resource Officer Mushtaq Díaz MD Radiologist [place]annah, Kevon Rashid, RN CV Staff Jasen Munoz RN CV Staff Ale Echeverria Natural Resource Officer Anesthesia: Conscious Sedation Significant Findings: None Complications: None Estimated Blood Loss: none Medications (Filter: Administrations occurring from 1425 to 1521 on 03/30/25) As of 03/30/25 1521 fentaNYL (PF) (SUBLIMAZE) injection (mcg) Total dose: 50 mcg Date/Time Rate/Dose/Volume Action 03/30/25 1452 25 mcg Given 1500 25 mcg Given midazolam (VERSED) injection (mg) Total dose: 2 mg Date/Time Rate/Dose/Volume Action 03/30/25 1452 1 mg Given 1500 1 mg Given ceFAZolin (ANCEF) 1 gram/10 mL IV syringe (g) Total dose: 2 g Date/Time Rate/Dose/Volume Action 03/30/25 1452 1 g Given 1452 1 g Given heparin (PF) in 0.9 % sodium chloride 2 units/mL flush infusion (mL) Total volume: 500 mL Date/Time Rate/Dose/Volume Action 03/30/25 1458 500 mL Given heparin (PF) 100 unit/mL flush (Units) Total dose: 500 Units Date/Time Rate/Dose/Volume Action 03/30/25 1458 500 Units Given lidocaine with sodium bicarbonate 1 % injection (mL) Total volume: 4 mL Date/Time Rate/Dose/Volume Action 03/30/25 1508 4 mL Given lidocaine-EPINEPHrine (XYLOCAINE W/EPI) 2 %-1:100,000 injection (mL) Total volume: 18 mL Date/Time Rate/Dose/Volume Action 03/30/25 1508 18 mL Given Final Radiology report with images in PACS to follow. The patient tolerated the procedure well without incident or complication and is in stable condition. * Mushtaq Díaz MD - 03/30/2025 3:20 PM EST Interventional Radiology Preprocedure Note Indication for procedure: The encounter diagnosis was Malignant neoplasm of overlapping sites of left breast in female, estrogen receptor positive (CMS/HCC V24, CMS/HCC V28). Relevant review of systems: NA Relevant Labs: Lab Results Component Value Date CREATININE 1.60 (H) 01/20/2025 EGFR 33 (L) 01/20/2025 Directed physical examination: Heart and lungs wnl Mallampati: II (hard and soft palate, upper portion of tonsils anduvula visible) ASA Score: ASA 3 - Patient with moderate systemic disease with functional limitations Immediate reassessment prior to sedation: Patient's status reviewed and vital signs assessed; acceptable to perform procedure and proceed to administer sedation as planned. documented in this encounter Plan of Treatment Not on file documented as of this encounter Procedures Procedure Name Priority Date/Time Associated Diagnosis Comments IR INSERT TUNNELED CVAD W SUBQ PORT MORE 5YRS RIGHT Routine 03/30/2025 3:31 PM EST Malignant neoplasm of overlapping sites of left breast in female, estrogen receptor positive (CMS/HCC V24, CMS/HCC V28) documented in this encounter Results * IR Insert Tunneled CVAD w Subq Port More 5yrs Right (03/30/2025 3:31 PM EST) Anatomical Region Laterality Modality Right Interventional R adiology 03/30/2025 3:44 PM EST Impressions 03/30/2025 3:45 PM EST Successful placement of a single lumen, totally implantable venous access Port via a right internal jugular vein approach, without immediate complication. Catheter tip near the cavoatrial junction. The device is ready for immediate use and was left non-accessed. -------- FINAL REPORT -------- Dictated By: Mushtaq Díaz Dictated Date: 03/30/2025 15:44 ET Assigned Physician: Mushtaq Díaz Reviewed and Electronically Signed By: Mushtaq Díaz Signed Date: 03/30/2025 15:45 ET Workstation ID: [id number] Transcribed By: Self Edit Transcribed Date: 03/30/2025 15:44 ET Narrative 03/30/2025 3:45 PM EST PROCEDURE: Port placement HISTORY/INDICATION: Breast Cancer. Need for long-term intravenous access for chemotherapy administration. Sedation: Moderate intravenous sedation was initiated and maintained for 30 minutes while the patient was independently monitored by the radiology nurse under the supervision of the interventional radiologist utilizing FENTANYL and VERSED Radiation dose: Fluoroscopy time 0.1 minute TECHNIQUE: The risks, benefits, and alternatives of the procedure and associated intravenous sedation were discussed and informed consent was obtained. The patient was brought the Interventional Suite and placed supine on the angiography table. Preliminary limited ultrasound examination was performed and showed a patent, fully compressible right internal jugular (IJ) vein. The right side of the neck and adjacent anterior chest wall were prepped and draped using sterile technique. Pre-procedure time-out was performed and verified appropriate patient identity, site, side, procedure, and availability of necessary materials. After local anesthesia, a micropuncture set was used to gain access to the right internal jugular (IJ) vein under direct real-time combined ultrasonographic and fluoroscopic guidance. A micropuncture sheath was placed over an 0.018? wire. Local anesthesia was given at the level of the chest wall. A subcutaneous pocket was formed along the right upper chest by making a transverse incision long enough to accommodate the reservoir, and the pocket was made caudal to the incision by blunt dissection. The catheter was attached to the Port reservoir and was advanced over a blunt tunneler from the transverse chest incision and its tip was exteriorized at the venotomy site. The catheter was trimmed to the appropriate length (22 cm) in beveled fashion. The reservoir was inserted into the subcutaneous pocket. The micropuncture sheath was exchanged over an 0.035 wire for the peel-away sheath. The catheter tip was inserted via the sheath under controlled respiration. The sheath was removed. The reservoir was accessed with a needle and aspirated and flushed well, without visible leak. A final fluoroscopic image was obtained and stored, showing satisfactory position of the Port reservoir and catheter, with its tip near the cavoatrial junction and no catheter kinking. The skin incision was closed with a deep layer of separate 2-0 resorbable sutures and topical adhesive superficially, and the venotomy incision was closed with topical adhesive. The Port was re-accessed and excellent bidirectional flow was noticed on aspiration and flushing of the Port, which was flushed with heparinized saline, hep-locked, and then de-accessed. A sterile dressing was applied. The patient tolerated the procedure very well without immediate complication COMPLICATIONS: None immediately EBL: <10 mL Procedure Note Mushtaq Díaz MD - 03/30/2025 PROCEDURE: Port placement HISTORY/INDICATION: Breast Cancer. Need for long-term intravenous accessfor chemotherapy administration. Sedation: Moderate intravenous sedation was initiated and maintained for30 minutes while the patient was independently monitored by the radiologynurse under the supervision of the interventional radiologist utilizingFENTANYL and VERSED Radiation dose: Fluoroscopy time 0.1 minute TECHNIQUE: The risks, benefits, and alternatives of the procedure andassociated intravenous sedation were discussed and informed consent wasobtained. The patient was brought the Interventional Suite and placedsupine on the angiography table. Preliminary limited ultrasoundexamination was performed and showed a patent, fully compressible rightinternal jugular (IJ) vein. The right side of the neck and adjacentanterior chest wall were prepped and draped using sterile technique.Pre-procedure time-out was performed and verified appropriate patientidentity, site, side, procedure, and availability of necessarymaterials. After local anesthesia, a micropuncture set was used to gain access to theright internal jugular (IJ) vein under direct real-time combinedultrasonographic and fluoroscopic guidance. A micropuncture sheath wasplaced over an 0.018? wire. Local anesthesia was given at the level of the chest wall. A subcutaneouspocket was formed along the right upper chest by making a transverseincision long enough to accommodate the reservoir, and the pocket was madecaudal to the incision by blunt dissection. The catheter was attached tothe Port reservoir and was advanced over a blunt tunneler from thetransverse chest incision and its tip was exteriorized at the venotomysite. The catheter was trimmed to the appropriate length (22 cm) inbeveled fashion. The reservoir was inserted into the subcutaneouspocket. The micropuncture sheath was exchanged over an 0.035 wire for thepeel-away sheath. The catheter tip was inserted via the sheath undercontrolled respiration. The sheath was removed. The reservoir was accessed with a needle and aspirated and flushed well,without visible leak. A final fluoroscopic image was obtained and stored,showing satisfactory position of the Port reservoir and catheter, with itstip near the cavoatrial junction and no catheter kinking. The skin incision was closed with a deep layer of separate 2-0 resorbablesutures and topical adhesive superficially, and the venotomy incision wasclosed with topical adhesive. The Port was re-accessed and excellentbidirectional flow was noticed on aspiration and flushing of the Port,which was flushed with heparinized saline, hep-locked, and thende-accessed. A sterile dressing was applied. The patient tolerated theprocedure very well without immediate complication COMPLICATIONS: None immediately EBL: <10 mL IMPRESSION: Successful placement of a single lumen, totally implantable venous accessPort via a right internal jugular vein approach, without immediatecomplication. Catheter tip near the cavoatrial junction. The device isready for immediate use and was left non-accessed. -------- FINAL REPORT -------- Dictated By: Mushtaq Díaz Dictated Date: 03/30/2025 15:44 ET Assigned Physician: Mushtaq Díaz Reviewed and Electronically Signed By: Mushtaq Díaz Signed Date: 03/30/2025 15:45 ET Workstation ID: [id number] Transcribed By: Self Edit Transcribed Date: 03/30/2025 15:44 ET us Subramony Subramonia-Melissa JOHNSONG IR PROCEDURES F inal Result documented in this encounter Visit Diagnoses Diagnosis Malignant neoplasm of overlapping sites of left breast in female, estrogen receptor positive (CMS/HCC V24, CMS/HCC V28) documented in this encounter Administered Medications Inactive Administered Medications - up to 3 most recent administrations Medication Order MAR Action Action Date Dose Rate Site ceFAZolin (ANCEF) 1 gram/10 mL IV syringe intravenous, Administer over 3 Minutes, As needed, Starting on Sat03/30/25 at 1452, Intraprocedure Given 03/30/2025 2:52 PM EST 1 g Given 03/30/2025 2:52 PM EST 1 g fentaNYL (PF) (SUBLIMAZE) injection intravenous, As needed, Starting on Sat03/30/25 at 1452, Intraprocedure Given 03/30/2025 3:00 PM EST 25 mcg Given 03/30/2025 2:52 PM EST 25 mcg heparin (PF) 100 unit/mL flush As needed, Starting on Sat03/30/25 at 1458, Intraprocedure Given 03/30/2025 2:58 PM EST 500 Units heparin (PF) in 0.9 % sodium chloride 2 units/mL flush infusion As needed, Starting on Sat03/30/25 at 1458, Intraprocedure Given 03/30/2025 2:58 PM EST 500 mL lidocaine with sodium bicarbonate 1 % injection As needed, Starting on Sat03/30/25 at 1508, Intraprocedure Given 03/30/2025 3:08 PM EST 4 mL Right Chest lidocaine-EPINEPHrine (XYLOCAINE W/EPI) 2 %-1:100,000 injection As needed, Starting on Sat03/30/25 at 1508, Intraprocedure Given 03/30/2025 3:08 PM EST 18 mL Right Chest midazolam (VERSED) injection intravenous, As needed, Starting on Sat03/30/25 at 1452, Intraprocedure Given 03/30/2025 3:00 PM EST 1 mg Given 03/30/2025 2:52 PM EST 1 mg documented in this encounter Discontinued Medications Medication Sig Discontinue Reason Start Date End Da te aspirin 81 mg chewable tablet Chew 1 tablet (81 mg total) by mouth every night at bedtime. 04/11/2023 03/30/2025 cyclobenzaprine (FLEXERIL) 5 mg tablet TAKE 2 TABLETS ORALLY 3 TIMES A DAY NEEDED FOR FOR MUSCLE SPASM 05/30/2023 03/30/2025 dicyclomine (BENTYL) 10 mg capsule 06/19/2023 03/30/2025 omeprazole (PriLOSEC) [address] capsule Take 1 capsule (20 mg total) by mouth 1 (one) time each day. 04/11/2023 03/30/2025 predniSONE (DELTASONE) 10 mg tablet 06/18/2023 03/30/2025 documented as of this encounter Orders Discharge Count Last Ordered Date First Orde red Date DISCHARGE PATIENT 1 03/30/2025 documented in this encounter Care Teams Metalsmith Helper Relationship Specialty Start Date End Date Milan Mcgraw PA [address] [place] [phone] PCP - General 06/05/23 documented as of this encounter
--- NOTE | ~2025-04-01 | US_ITS ---
CLINICAL HISTORY: N39.0 - Urinary tract infection, site not specified US retroperitoneum with color Doppler Comparison: None Findings: Right kidney normal size and echotexture, 9.2 cm length. No hydronephrosis. Normal color flow. No nephrolithiasis. Benign renal cortical cysts lower pole measuring 3.4 x 3.3 x 3.3 cm. Left kidney normal size and echotexture, 10.0 cm in length. No hydronephrosis. Normal color flow. No nephrolithiasis. No renal masses. Urinary bladder is unremarkable. Prevoid volume 153.0 mL. Postvoid volume 8.2 mL. Ureteral jets are visualized bilaterally Impression: 1. Incidental benign renal cortical cyst right kidney. 2. Normal postvoid residual This document has been electronically signed by: Magdy Thornton MD on 04/02/2025 12:54:33
--- NOTE | ~2025-04-01 | US_ITS ---
CLINICAL HISTORY: I82.409 - Acute embolism and thrombosis of unspecified deep veins of uns... Venous duplex ultrasound right lower extremity Comparison: US/SR - US LOWER EXTREMITY VEINS LIMITED FOLLOW UP LEFT - 04/24/23 15:02 EST US/SR - US LOWER EXTREMITY VEINS LIMITED FOLLOW UP LEFT - 12/24/22 12:55 EDT Findings: The visualized deep veins are fully compressible with normal Doppler color flow and spectral tracings. No popliteal cyst. IMPRESSION: 1. Negative for right lower extremity deep vein thrombosis. This document has been electronically signed by: Dave Patterson MD on 03/31/2025 20:00:34
--- OUTSIDE RECORDS SUMMARY | 2025-04-01 14:20 | XMS_ITS | Clinical Summary ---
Author Organization [facility] Address [address] [place] [phone] Phone Care Team Providers Care Research Neuropsychologist Name Role Phone Milan Mcgraw Primary Care [...] - 03/30/2025 11:59 PM EST Hospital Encounter [facility] Interventional Radiology [address] [place] [phone] Malignant neoplasm of overlapping sites of left breast in female, estrogen receptor positive (CMS/HCC V24, CMS/HCC V28) Discharge Disposition: Home or Self Care 03/24/2025 Telephone [facility] Hematology Oncology [address] [place] [address] Tiffany Chowdhury MD 01/21/2025 12:00 PM EDT - 01/21/2025 11:59 PM EDT Hospital Encounter [facility] Nuclear Medicine [address] [place] [address] Discharge Disposition: Home or Self Care 01/21/2025 11:15 AM EDT Office Visit [facility] Hematology Oncology [address] [place] [phone] Tiffany Chowdhury MD Malignant neoplasm of upper-outer quadrant of right breast in female, estrogen receptor positive (CMS/HCC V24, CMS/HCC V28) (Primary Dx); Cancer, 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 (CMS/HCC V24, CMS/HCC V28); Osteopenia of multiple sites; Multiple subsegmental pulmonary emboli without acute cor pulmonale (CMS/HCC V24, CMS/HCC V28); Vitamin D deficiency 01/21/2025 9:03 AM EDT - 01/21/2025 11:59 PM EDT Hospital Encounter [facility] CT Scan [address] [place] [phone] Malignant neoplasm of overlapping sites of left breast in female, estrogen receptor positive ([facility] V24, [facility] V28) Discharge Disposition: Home or Self Care 01/21/2025 9:00 AM EDT - 01/21/2025 11:59 PM EDT Hospital Encounter [facility] Nuclear Medicine [address] [place] [phone] Malignant neoplasm of overlapping sites of left breast in female, estrogen receptor positive ([facility] V24, [facility] V28) Discharge Disposition: Home or Self Care from Last 3 Months Surgical History Surgery Date Site/Laterality Comments MASTECTOMY PROCEDURE:MASTECTOMY APPENDECTOMY PROCEDURE:APPENDECTOMY CHOLECYSTECTOMY PROCEDURE:CHOLECYSTECTOMY COLONOSCOPY PROCEDURE:COLONOSCOPY Medical History Medical History Date Comments Breast cancer ([facility] V24, [facility] V28) DX:Breast cancer ([facility]) Hypertension DX:Hypertension COPD (chronic obstructive pu lmonary disease) ([facility] V24, [facility] V28) DX:COPD (chronic o bstructive pulmonary disease) ([facility]) Family History Medical History Relation Name [...] this topic Medical Devices Implanted Type Area Technician Trainee Device Identifier Shelf Expiration Date Model / Serial / Lot Port Pwr Isp Attach 6f Interm Obdulia - [id number] - [id number] Implanted:Qty: 1 on 03/30/2025 by Mushtaq Díaz MD at [facility] Central/Jaqueline pheral Catheters and Ports Right: Chest Wall CR BARD PERIPHERAL VASCULAR [id number] 11/23/2025 [id number] / [id number] / [id number] Procedures Procedure Name Priority Date/Time Associated Diagnosis [...] Signed Date: 03/30/2025 15:45 ET Workstation ID: [id number] Transcribed By: Self Edit Transcribed Date: 03/30/2025 [...] Signed Date: 03/30/2025 15:45 ET Workstation ID: [id number] Transcribed By: Self Edit Transcribed Date: 03/30/2025 [...] Signed Date: 01/29/2025 13:29 ET Workstation ID: [id number] Transcribed By: Self Edit Transcribed Date: 01/29/2025 [...] Signed Date: 01/29/2025 13:29 ET Workstation ID: [id number] Transcribed By: Self Edit Transcribed Date: 01/29/2025 [...] Signed Date: 02/01/2025 15:22 ET Workstation ID: [id number] Transcribed By: Self Edit Transcribed Date: 02/01/2025 [...] Signed Date: 02/01/2025 15:22 ET Workstation ID: [id number] Transcribed By: Self Edit Transcribed Date: 02/01/2025 14:52 ET Subramjose angel Nava MD IMG CT PROCEDURES F inal Result * (ABNORMAL) CBC auto differential (01/20/2025 2:18 PM EDT) WBC 5.4 4.8 - 10.8 K/mcL LAB HEMETOLOGY METHOD 01/20/2025 6:[address] [facility] RBC 4.00 3.80 - 4.80 M/mcL LAB HEMETOLOGY METHOD 01/20/2025 6:[address] [facility] Hemoglobin 12.5 11.5 - 16.0 g/dL LAB HEMETOLOGY METHOD 01/20/2025 6:[address] [facility] Hematocrit 39.5 35.0 - 47.0 % LAB HEMETOLOGY METHOD 01/20/2025 6:[address] [facility] MCV 98.3(H) 79.0 - 98.0 FL LAB HEMETOLOGY METHOD 01/20/2025 6:[address] [facility] MCH 31.1 27.0 - 32.0 pcg LAB HEMETOLOGY METHOD 01/20/2025 6:[address] [facility] MCHC 31.6(L) 32.0 - 37.0 g/dL LAB HEMETOLOGY METHOD 01/20/2025 6:[address] [facility] RDW 13.8 11.0 - 15.0 % LAB HEMETOLOGY METHOD 01/20/2025 6:[address] [facility] Platelets 348 130 - 400 [...] LAB HEMETOLOGY METHOD 01/20/2025 6:[address] [facility] Comment:This is an appended report. [...] LAB HEMETOLOGY METHOD 01/20/2025 6:[address] [facility] Comment:This is an appended report. These results have been appended to a previously preliminary verified report. Blood Venous blood specimen / Unknown Venipuncture / Unknown 01/20/2025 2:18 PM EDT 01/20/2025 4:29 PM EDT Tiffany Nava MD LAB BLOOD ORDERABLE S Final Result [facility] [address] [place] [address], * Cancer antigen 27-29 (01/20/2025 2:18 PM EDT) CA 27.29 30.9 <38.6 U/mL 01/26/2025 2:33 PM EDT [facility] Comment: The Siemens Advia Exosectaur [id number] Chemiluminescent Immunoassay is used. Results obtained with different assay methods or kits cannot be used interchangeably. Results cannot be interpreted as absolute evidence of the presence or absence of malignant disease. Test performed at [facility], [address], [place] [address] Mary Albrecht MD, PhD - Beet End Supervisor Blood Venous blood specimen / Unknown Venipuncture / Unknown 01/20/2025 2:18 PM EDT 01/20/2025 4:28 PM EDT Subramjose angel Nava MD LAB BLOOD ORDERABLE S Final Result [facility] [address] [place] [address] * (ABNORMAL) Comprehensive metabolic panel (01/20/2025 2:18 PM EDT) Pathologist [facility] Sodium 138 133 - 145 mmol/L LAB CHEMISTRY METHOD 01/20/2025 5:[address] [facility] Potassium 4.6 3.5 - 5.5 mmol/L LAB CHEMISTRY METHOD 01/20/2025 5:[address] [facility] Chloride 105 96 - 110 mmol/L LAB CHEMISTRY METHOD 01/20/2025 5:[address] [facility] CO2 28 21 - 32 mmol/L LAB CHEMISTRY METHOD 01/20/2025 5:[address] [facility] Anion Gap 5 3 - 11 LAB CHEMISTRY METHOD 01/20/2025 5:[address] [facility] Glucose 52(L) 70 - 100 [...] unit/L LAB CHEMISTRY METHOD 01/20/2025 5:57 PM [facility] ALT (SGPT) 21 10 - 60 unit/L LAB CHEMISTRY METHOD 01/20/2025 5:57 PM [facility] Alkaline Phosphatase 69 42 - 121 unit/L LAB CHEMISTRY METHOD 01/20/2025 5:57 PM [facility] Total Protein 7.1 6.0 - 8.0 g/dL LAB CHEMISTRY METHOD 01/20/2025 5:57 PM [facility] Albumin 4.0 3.2 - 5.0 g/dL LAB CHEMISTRY METHOD 01/20/2025 5:57 PM [facility] Total Bilirubin 0.3 0.0 - 1.4 mg/dL LAB CHEMISTRY METHOD 01/20/2025 5:57 PM [facility] Blood Venous blood specimen / Unknown Venipuncture / Unknown 01/20/2025 2:18 PM EDT 01/20/2025 4:28 PM EDT Tiffany Nava MD LAB BLOOD ORDERABLE S Final Result [facility] [address] [place] [address], from Last 3 Months Insurance [facility] [employer] Member Subscriber Plan / Payer (Ef fective 2014-Present) Name:Beatriz Herbert Relation to Subscriber:Self Name:Beatriz Herbert Payer ID:[id number] Group ID:[id number] Type:Not on file Address: [place] [address] [address] [phone] Care Teams Research Neuropsychologist Relationship Specialty Start Date End Date Milan Mcgraw PA [address] [place] [address] PCP - General 06/05/23
--- OUTSIDE RECORDS SUMMARY | 2025-04-01 14:20 | XMS_ITS ---
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
--- OUTSIDE RECORDS SUMMARY | 2025-04-01 14:20 | XMS_ITS | Clinical Summary ---
Author Organization [facility] Address [address] [place] [address] Care Team Providers Care Slide Machine Tender Name Role Phone Milan Mcgraw Primary Care Provider [phone] Allergies No known active allergies Medications Medication [...] age to complete this topic Care Teams Slide Machine Tender Relationship Specialty Start Date End Date Milan Mcgraw PA [address] [place] [phone] PCP - General Physician Retention Representative 06/05/23
== END 2025-04-01 11:26 | disposition home or self-care (01) ==
LOC: HO.US 11:25
PROVIDERS: PCP Physician Assistant; Visit Provider Nurse Practitioner Family
DX: I82.401 Acute embolism and thrombosis of unspecified deep veins of right lower extremity (principal); N39.0 Urinary tract infection, site not specified
CPT/HCPCS: 76770; 93971

== ENCOUNTER → 2025-04-01 11:28 | Outpatient (BNV) | payer OTHER, SELFPAY | PROVIDERS: PCP Physician Assistant; Visit Provider Radiology Diagnostic Radiology | DX: N39.0 Urinary tract infection, site not specified (principal) | CPT/HCPCS: 76770 ==

== ENCOUNTER 2025-04-07 09:52 | Outpatient (REF) | payer OTHER, SELFPAY ==
--- OUTSIDE RECORDS SUMMARY | 2025-03-02 06:10 | XMS_ITS ---
Author Organization [facility] Address [address] [place] [phone] Care Team Providers Care Masticator Name Role Phone Milan Mcgraw Primary Care Provider Unavailab Chinedu Hoff Unavailable [phone] REASON FOR VISIT Patient presents today for DIARRHEA, GERD Encounters Encounter Location Date Provider Diagnosis [facility] [address] [place] [phone] 03/02/2025 Chinedu Kat Plan Of Treatment No Information Progress Notes * ANA CRISTINA LOZANODOB:1950 (74 yo F)Acc No.[id number]:03/02/2025 Progress Notes Patient: ANA CRISTINA ROSENBERG Provider: Lyric Kat MD :1950 A ge:74 Y S ex:Female Date:03/02/2025 Address:[address] [place], [place] [phone] Pcp:Milan Mcgraw Subjective: * Chief Complaints: * [...] MD Date: Generated for Hamida duarte/Balta/eTransmitting on: 06/07/2024 11:29 AM EST
--- OUTSIDE RECORDS SUMMARY | 2025-04-07 11:29 | XMS_ITS | Clinical Summary ---
Author Organization [facility] Address [address] [place] [phone] Phone Care Team Providers Care Inspector Clip On Sunglasses Name Role Phone Milan Mcgraw Primary Care Provider [phone] Allergies No known active allergies Medications acetaminophen [...] - 03/30/2025 11:59 PM EST Hospital Encounter [facility] Interventional Radiology [address] [place] [address] Malignant neoplasm of overlapping sites of left breast in female, estrogen receptor positive (CMS/HCC V24, CMS/HCC V28) Discharge Disposition: Home or Self Care 03/24/2025 Telephone [facility] Hematology Oncology [address] [place] [address] Tiffany Chowdhury MD 01/21/2025 12:00 PM EDT - 01/21/2025 11:59 PM EDT Hospital Encounter [facility] Nuclear Medicine [address] [place] [address] Discharge Disposition: Home or Self Care 01/21/2025 11:15 AM EDT Office Visit [facility] Hematology Oncology [address] [place] [address] Tiffany Chowdhury MD Malignant neoplasm of upper-outer quadrant of right breast in female, estrogen receptor positive (CMS/HCC V24, CMS/HCC V28) (Primary Dx); Cancer, 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 (CMS/HCC V24, CMS/HCC V28); Osteopenia of multiple sites; Multiple subsegmental pulmonary emboli without acute cor pulmonale (CMS/HCC V24, CMS/HCC V28); Vitamin D deficiency 01/21/2025 9:03 AM EDT - 01/21/2025 11:59 PM EDT Hospital Encounter [facility] CT Scan [address] [place] [phone] Malignant neoplasm of overlapping sites of left breast in female, estrogen receptor positive ([facility] V24, [facility] V28) Discharge Disposition: Home or Self Care 01/21/2025 9:00 AM EDT - 01/21/2025 11:59 PM EDT Hospital Encounter [facility] Nuclear Medicine [address] [place] [phone] Malignant neoplasm of overlapping sites of left breast in female, estrogen receptor positive ([facility] V24, [facility] V28) Discharge Disposition: Home or Self Care from Last 3 Months Surgical History Surgery Date Site/Laterality Comments MASTECTOMY PROCEDURE:MASTECTOMY APPENDECTOMY PROCEDURE:APPENDECTOMY CHOLECYSTECTOMY PROCEDURE:CHOLECYSTECTOMY COLONOSCOPY PROCEDURE:COLONOSCOPY Medical History Medical History Date Comments Breast cancer ([facility] V24, [facility] V28) DX:Breast cancer ([facility]) Hypertension DX:Hypertension COPD (chronic obstructive pu lmonary disease) ([facility] V24, [facility] V28) DX:COPD (chronic o bstructive pulmonary disease) ([facility]) Family History Medical History Relation [...] this topic Medical Devices Implanted Type Area Plug Making Operator Device Identifier Shelf Expiration Date Model / Serial / Lot Port Pwr Isp Attach 6f Interm Obdulia - [id number] - [id number] Implanted:Qty: 1 on 03/30/2025 by Mushtaq Díaz MD at [facility] Central/Jaqueline pheral Catheters and Ports Right: Chest Wall CR BARD PERIPHERAL VASCULAR [id number] 11/23/2025 [id number] / [id number] / [id number] Procedures Procedure Name Priority Date/Time Associated Diagnosis [...] Signed Date: 03/30/2025 15:45 ET Workstation ID: [id number] Transcribed By: Self Edit Transcribed Date: 03/30/2025 [...] Signed Date: 03/30/2025 15:45 ET Workstation ID: [id number] Transcribed By: Self Edit Transcribed Date: 03/30/2025 [...] Signed Date: 01/29/2025 13:29 ET Workstation ID: [id number] Transcribed By: Self Edit Transcribed Date: 01/29/2025 [...] Signed Date: 01/29/2025 13:29 ET Workstation ID: [id number] Transcribed By: Self Edit Transcribed Date: 01/29/2025 [...] Signed Date: 02/01/2025 15:22 ET Workstation ID: [id number] Transcribed By: Self Edit Transcribed Date: 02/01/2025 [...] Signed Date: 02/01/2025 15:22 ET Workstation ID: [id number] Transcribed By: Self Edit Transcribed Date: 02/01/2025 14:52 ET Subramjose angel Nava MD IMG CT PROCEDURES F inal Result * (ABNORMAL) CBC auto differential (01/20/2025 2:18 PM EDT) WBC 5.4 4.8 - 10.8 K/mcL LAB HEMETOLOGY METHOD 01/20/2025 6:04 PM EDT [facility] RBC 4.00 3.80 - 4.80 M/mcL LAB HEMETOLOGY METHOD 01/20/2025 6:04 PM EDT [facility] Hemoglobin 12.5 11.5 - 16.0 g/dL LAB HEMETOLOGY METHOD 01/20/2025 6:04 PM EDT [facility] Hematocrit 39.5 35.0 - 47.0 % LAB HEMETOLOGY METHOD 01/20/2025 6:04 PM EDT [facility] MCV 98.3(H) 79.0 - 98.0 FL LAB HEMETOLOGY METHOD 01/20/2025 6:04 PM EDT [facility] MCH 31.1 27.0 - 32.0 pcg LAB HEMETOLOGY METHOD 01/20/2025 6:04 PM EDT [facility] MCHC 31.6(L) 32.0 - 37.0 g/dL LAB HEMETOLOGY METHOD 01/20/2025 6:04 PM EDT [facility] RDW 13.8 11.0 - 15.0 % LAB HEMETOLOGY METHOD 01/20/2025 6:04 PM EDT [facility] Platelets 348 130 - 400 K/mcL LAB HEMETOLOGY METHOD 01/20/2025 6:[address] [facility] MPV 9.9 7.0 - 11.0 FL LAB HEMETOLOGY METHOD 01/20/2025 6:[address] [facility] NRBC 0.0 <1.0 % LAB HEMETOLOGY METHOD 01/20/2025 6:[address] [facility] NRBC Absolute 0.00 <0.10 K/mcL LAB HEMETOLOGY METHOD 01/20/2025 6:[address] [facility] Neutrophils Relative 55.2 % LAB HEMETOLOGY METHOD 01/20/2025 6:[address] [facility] Comment:This is an appended report. These results have been appended to a previously preliminary verified report. Lymphocytes Relative 36.6 % LAB HEMETOLOGY METHOD 01/20/2025 6:[address] [facility] Comment:This is an appended report. These results have been appended to a previously preliminary verified report. Monocytes Relative 5.2 % LAB HEMETOLOGY METHOD 01/20/2025 6:[address] [facility] Comment:This is an appended report. These results have been appended to a previously preliminary verified report. Eosinophils Relative 1.7 % LAB HEMETOLOGY METHOD 01/20/2025 6:[address] [facility] Comment:This is an appended report. These results have been appended to a previously preliminary verified report. Basophils Relative 0.9 % LAB HEMETOLOGY METHOD 01/20/2025 6:[address] [facility] Comment:This is an appended report. These results have been appended to a previously preliminary verified report. Immature Granulocytes Relative 0.4 % LAB HEMETOLOGY METHOD 01/20/2025 6:[address] [facility] Comment:This is an appended report. These results have been appended to a previously preliminary verified report. Neutrophils Absolute 2.95 1.50 - 7.00 K/mcL LAB HEMETOLOGY METHOD 01/20/2025 6:[address] [facility] Comment:This is an appended report. These results have been appended to a previously preliminary verified report. Lymphocytes Absolute 1.96 1.00 - 5.00 K/mcL LAB HEMETOLOGY METHOD 01/20/2025 6:04 PM T [facility] Comment:This is an appended report. These results have been appended to a previously preliminary verified report. Monocytes Absolute 0.28 0.20 - 1.00 K/mcL LAB HEMETOLOGY METHOD 01/20/2025 6:[address] [facility] Comment:This is an appended report. These results have been appended to a previously preliminary verified report. Eosinophils Absolute 0.09 0.00 - 0.50 K/mcL LAB HEMETOLOGY METHOD 01/20/2025 6:[address] [facility] Comment:This is an appended report. These results have been appended to a previously preliminary verified report. Basophils Absolute 0.05 0.00 - 0.20 K/mcL LAB HEMETOLOGY METHOD 01/20/2025 6:[address] [facility] Comment:This is an appended report. These results have been appended to a previously preliminary verified report. Immature Granulocytes Absolute 0.02 0.00 - 0.03 K/mcL LAB HEMETOLOGY METHOD 01/20/2025 6:04 PM T [facility] Comment:This is an appended report. These results have been appended to a previously preliminary verified report. Blood Venous blood specimen / Unknown Venipuncture / Unknown 01/20/2025 2:18 PM EDT 01/20/2025 4:29 PM EDT Tiffany Nava MD LAB BLOOD ORDERABLE S Final Result [facility] [address] [place] [address], * Cancer antigen 27-29 (01/20/2025 2:18 PM EDT) CA 27.29 30.9 <38.6 U/mL 01/26/2025 2:33 PM EDT [facility] Comment: The Siemens [employer] [id number] Chemiluminescent Immunoassay is used. Results obtained with different assay methods or kits cannot be used interchangeably. Results cannot be interpreted as absolute evidence of the presence or absence of malignant disease. Test performed at [facility], [address], [place] [address] Mary Albrecht MD, PhD - Seed Corn Manager Production Blood Venous blood specimen / Unknown Venipuncture / Unknown 01/20/2025 2:18 PM EDT 01/20/2025 4:28 PM EDT Subramjose angel Nava MD LAB BLOOD ORDERABLE S Final Result [facility] [address] [place] [address] * (ABNORMAL) Comprehensive metabolic panel (01/20/2025 2:18 PM EDT) Pathologist [facility] Sodium 138 133 - 145 mmol/L LAB CHEMISTRY METHOD 01/20/2025 5:57 PM EDT [facility] Potassium 4.6 3.5 - 5.5 mmol/L LAB CHEMISTRY METHOD 01/20/2025 5:57 PM EDT [facility] Chloride 105 96 - 110 mmol/L LAB CHEMISTRY METHOD 01/20/2025 5:57 PM EDT [facility] CO2 28 21 - 32 mmol/L LAB CHEMISTRY METHOD 01/20/2025 5:57 PM EDT [facility] Anion Gap 5 3 - 11 LAB CHEMISTRY METHOD 01/20/2025 5:57 PM EDT [facility] Glucose 52(L) 70 - 100 mg/dL LAB CHEMISTRY METHOD 01/20/2025 5:[address] [facility] BUN 22 5 - 25 mg/dL LAB CHEMISTRY METHOD 01/20/2025 5:[address] [facility] Creatinine 1.60(H) 0.50 - 1.10 mg/dL LAB CHEMISTRY METHOD 01/20/2025 5:[address] [facility] eGFR 33(L) >=60 mL/min/1. 73m2 LAB CHEMISTRY METHOD 01/20/2025 5:[address] [facility] Comment:Calculation based on the Chronic Kidney Disease Epidemiology Collaboration (CKD-EPI) equation refit without adjustment for race. BUN/Creatinine Ratio 13.8 LAB CHEMISTRY METHOD 01/20/2025 5:[address] [facility] Calcium 9.7 8.5 - 10.5 mg/dL LAB CHEMISTRY METHOD 01/20/2025 5:[address] [facility] AST (SGOT) 17 10 - 42 unit/L LAB CHEMISTRY METHOD 01/20/2025 5:[address] [facility] ALT (SGPT) 21 10 - 60 unit/L LAB CHEMISTRY METHOD 01/20/2025 5:[address] [facility] Alkaline Phosphatase 69 42 - 121 unit/L LAB CHEMISTRY METHOD 01/20/2025 5:[address] [facility] Total Protein 7.1 6.0 - 8.0 g/dL LAB CHEMISTRY METHOD 01/20/2025 5:[address] [facility] Albumin 4.0 3.2 - 5.0 g/dL LAB CHEMISTRY METHOD 01/20/2025 5:[address] [facility] Total Bilirubin 0.3 0.0 - 1.4 mg/dL LAB CHEMISTRY METHOD 01/20/2025 5:[address] [facility] Blood Venous blood specimen / Unknown Venipuncture / Unknown 01/20/2025 2:18 PM EDT 01/20/2025 4:28 PM EDT Tiffany Nava MD LAB BLOOD ORDERABLE S Final Result [facility] [address] [place] [address], from Last 3 Months Insurance [facility] [employer] [employer] Member Subscriber Plan / Payer (Ef fective 2014-Present) Name:Beatriz Herbert Relation to Subscriber:Self Name:Beatriz Herbert Payer ID:[id number] Group ID:[id number] Type:Not on file Address: [place] [address] [address] [phone] Care Teams Inspector Clip On Sunglasses Relationship Specialty Start Date End Date Milan Mcgraw PA [address] [place] [address] PCP - General 06/05/23
--- OUTSIDE RECORDS SUMMARY | 2025-04-07 11:29 | XMS_ITS ---
Author Organization [facility] Address [address] [place] [address] Phone Care Team Providers Care Brickmason Name Role Phone Milan Mcgraw Primary Care Provider Active Problems Problem Noted Date Diagnosed Date Chest pain on breathing 11/27/2023 Cancer, 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 ([facility]/HCC V24, CMS/HCC V28) 10/01/2023 Acute cystitis [...]
--- OUTSIDE RECORDS SUMMARY | 2025-04-07 11:29 | XMS_ITS | Clinical Summary ---
Author Organization [facility] Address [address] [place] [address] Care Team Providers Care Commercial Energy Rater Name Role Phone Milan Mcgraw Primary Care Provider [phone] Allergies No known active allergies Medications Medication [...] from 02/19/2022:Stage IA(pT1c, pN1, cM0, G2, ER+, RI+, HER2-) - Signed by Tiffany Villavicencio MD [...] age to complete this topic Care Teams Commercial Energy Rater Relationship Specialty Start Date End Date Milan Mcgraw PA [address] [place] [phone] PCP - General Physician Recoverer 06/05/23
--- OUTSIDE RECORDS SUMMARY | 2025-04-07 11:30 | XMS_ITS | Data Portability ---
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 ................... ................... ................... ................... ................... ........ Water Resource Agent Note From Juan Parisi: Dispatched to above residence for the female patient with complaint of weakness, pain, shortness of breath as reported by neonatal critical care nurse. Upon arrival, pt found laying in bed in no obvious acute distress. Patient is dutch speaking only and all information gathered comes from neonatal critical care nurse who is bilingual. Patient states to CG my left leg is swollen, hot, red, and i think i have a blood clot . During exam, there was no noted swelling, temp difference, or discoloration. Patient reports pain localized to the anterior of her fowler about custodial up. No noted trauma, pt denies any [...] any additional acute complaints at this time. [facility] contacted to discuss pt presentation, concerns, and clinical findings. At this time, [facility] does not order any additional interventions or [...] ........ Disposition: Fulfilled Jung Mace MD [address] [facility],[address], [place], [address], JAMES COTTO 12/22/2022 20:21:24 OBGyn Episode No OBEpisode recorded.
--- OUTSIDE RECORDS SUMMARY | 2025-04-07 11:30 | XMS_ITS | Patient Health Record ---
Author Organization [facility] Address [address] [place] [address] Care Team Providers Care Thermodynamics Teacher Name Role Phone Milan Mcgraw Primary Care Provider Unavailab Chinedu Hoff Unavailable [phone] Reason For Referral No Information Medications Medication [...] Problem Screening for malignant neoplasm of colon (134219994) Encounter for screening for malignant neoplasm of colon (Z12.11) Active confirmed Problem Irritable bowel syndrome with diarrhea (117148691) Irritable bowel syndrome with diarrhea (K58.0) Active confirmed Problem Gastroesophageal reflux disease without esophagitis (421177984) Gastroesophageal reflux disease without esophagitis (K21.9) Active confirmed Problem Family History of Cancer of Colon (Situation) (546475040) Family history of colon cancer (Z80.0) Active confirmed Encounters Encounter Location Date Provider Diagnosis [facility] [address] [facility] [facility] [address] [place] [address] 03/02/2025 Chinedu Kat Plan Of Treatment Future Test Test Name Order Date UPPER GI ENDOSCOPY 11/02/2014 COLONOSCOPY 11/02/2014 COLONOSCOPY 11/25/2019 Insurance Providers Payer Name Payer Address Payer Phone Subscriber Number Group Number Insured Name Patient Relationship to Insured Coverage Start Date Coverage End Date [facility] [address] [place] [phone] [id number] ANA CRISTINA LOZANO Self - patient is the insured MEDICAID OF [employer] [address] [place] [phone] [id number] ANA CRISTINA LOZANO Self - patient is the insured Medical (General) History Medical History History ICD Code Breast cancer on the right w ith surgery as below; left breast with precancerous cells and had XRT only Denies [place],DM,CVA,renal disease Depression/Anxiety Asthma Back pain GERD--EGD in [...]
[2025-04-07 11:32] LABS: Appearance Urine Clear; Glucose Urine UA Negative (Negative); PH 6.0 (5.0-9.0); Specific Gravity - Urine 1.020 (1.005-1.025); UMIC TRIGGER UA YES
[2025-04-07 12:02] LABS: Alanine Aminotransferase 37 U/L (0-31); Albumin Level 4.1 g/dL (3.5-5.0); Alkaline Phosphatase 71 U/L (39-117); Anion Gap 13 (12-20); Aspartate Amino Transferase 35 U/L (5-31); Blood Urea Nitrogen 18 mg/dL (9-16); Calcium 9.3 mg/dL (8.4-10.2); Carbon Dioxide 27 mmol/L (22-29); Chloride 104 mmol/L (96-108); Estimated Glomerular Filt Rate 36; Potassium 4.0 mmol/L (3.3-5.1); Sodium 140 mmol/L (135-145); Total Protein 7.1 g/dL (6.5-8.0)
== END 2025-04-07 09:53 | disposition home or self-care (01) ==
LOC: HO.LAB 09:52
PROVIDERS: PCP Physician Assistant; Visit Provider Internal Medicine
DX: Z71.2 Person consulting for explanation of examination or test findings (principal); N17.9 Acute kidney failure, unspecified; H25.9 Unspecified age-related cataract; I82.402 Acute embolism and thrombosis of unspecified deep veins of left lower extremity
CPT/HCPCS: 36415; 80053; 81001; 82570; 84300; 99212

== ENCOUNTER 2025-04-07 10:26 | Outpatient (AMB) | payer OTHER, SELFPAY ==
--- NOTE | 2025-04-07 10:31 | MHC.PC.OV ---
Vital Signs 04/07/25 10:32 Height 4 ft 11 in Weight 167 lb 6 oz BMI 33.8 BP 130/78 Blood Pressure Location Lt brachial Position Sitting Pulse 68 Pulse Source Pulse Oximeter Temp 97.3 F Temp Source Temporal Artery Scan Pulse Oximetry (%) 99 Oxygen Delivery Method Room Air Intake Visit Reasons: QUIN, Lab results Intake Note: Patient is here to follow up on QUIN, Lab results. Manager Of Applications Development Required: Yes Manager Of Applications Development Language: Tamazight Information Interpreted: non-clinical & clinical Commercial Insulator: Present Accompanied by: Friend Allergies mirtazapine (From Remeron) Allergy (Intermediate, Verified 04/07/25 10:32) Hallucinations Tobacco use date assessed: 04/07/25 Fall risk assessment: No Falls in past year Last assessed Fall Risk: 04/07/25 Dental Screening Dental Screen Date: 03/31/25 HPI HPI Comments History of Present Illness Details The patient is a 74-year-old female with PMH of DVT, breast cancer s/p bilateral mastectomy on Verzenio, HLD, DM, CKD presenting for a follow-up visit for QUIN. She reports feeling fine. Last time she was in clinic for pre-op clearance prior to catarct surgery and she was found to have QUIN and right calf pain. She was advised to postpone her surgery until May 2025. The patient has a known history of a deep vein thrombosis in the left leg, for which she takes Eliquis. This condition was diagnosed after she presented with significant pain and hotness in the left leg, which prompted a referral and a one-month course of medication. She reports the leg still hurts, but the pain is less than it was previously. A recent ultrasound of the right leg was negative for blood clots. The patient reports that her left knee gets hotter and hurts more than the right one. She also notes that the back of her neck on the right side becomes very hot. Today blood work showed improved of the patient's QUIN from 1.61 to 1.41 and Fena 0.1% which indicates pre-renal etiology. Patient has follow-up scheduled with Nephrology 05/26/2025. 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 Depression Arthritis IBS (irritable bowel syndrome) GERD (gastroesophageal reflux disease) Recurrent malignant neoplasm of right breast HTN (hypertension) Traumatic complete tear of right rotator cuff Surgical History Hx of excision of mass (08/14/23) History of excision of lesion (05/30/23) S/P bilateral mastectomy History of bilateral mastectomy (02/19/22) Hx of cholecystectomy Hx of appendectomy Hx of blepharoplasty History of esophagogastroduodenoscopy (EGD) History of lumpectomy of both breasts History of surgery History of colonoscopy S/P ANDRÉS-BSO (total abdominal hysterectomy and bilateral salpingo-oophorectomy) History of lumbar fusion Family History Father Heart problem Mother Heart disease Hypertension Colon cancer Epilepsy Maternal Grandmother Esophageal cancer Daughter Breast cancer Brother Lung cancer Sister Breast cancer Sister Breast cancer, Onset Age: 60 Sister COVID Daughter Acute kidney failure Social History Household Members: None Housing: Apartment Are you a primary child care supervisor to a significant other at home: No Do you presently have visiting nurse or other home services: No Alcohol intake: never Comment: counts correct Patient Tobacco Use Status: Never used Tobacco e-Cigarette/Vaping Use: Never Used Second Hand Smoke Exposure: No Advance Directives Date on File: 06/13/23 service: No Current occupational status: disabled 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) Hearing needs: No Vision needs: Yes Female Reproductive History Menstrual Age of Menarche: 9 Questionnaire Thrive Questionnaire Date Thrive assessed: 10/27/24 I am a: Patient What is your living situation today?: I have a steady place to live Within the past 12 months, did the food you bought not last and you didn't have the money to get more?: Sometimes True Within the past 12 months, did you worry whether your food would run out before you got money to buy more?: Sometimes True Do you have trouble paying for medicines?: No Do you have trouble getting transportation to medical appointments?: No Do you have trouble paying your heating and electricity bill?: No Do you have trouble taking care of your child, family member or friend?: No Do you have trouble with day-to-day activities such as bathing, preparing meals, shopping, managing finances, etc.?: No Are you currently unemployed and looking for a job?: No Are you interested in more education?: No Please select the resources that you would like help with: None Currently or been in a relationship where the following occur: No concerns reported THRIVE Score: 2 OLAYINKA-7 AMB Questionnaire OLAYINKA-7 Date OLAYINKA - 7 assessed: 10/27/24 Source: Developed by Drs. Chinedu Romero, Rosemarie Ballard, Mina Lanier and colleagues, with an educational luis fernando from [employer]. Review of Systems Const Details: As per HPI. Physical exam (Primary Care) Vital Signs: Last Vital Signs Temp 97.3 F 04/07/25 10:32 Pulse 68 04/07/25 10:32 BP 130/78 04/07/25 10:32 Pulse Ox 99 04/07/25 10:32 Oxygen Delivery Method Room Air 04/07/25 10:32 BMI result Body Mass Index 33.8 Tobacco/Smoking Status: Tobacco use Status Tobacco use date assessed 04/07/25 04/07/25 10:39 Patient Tobacco Use Status Never used Tobacco 04/07/25 10:39 e-Cigarette/Vaping Use Never Used 04/07/25 10:39 Thrive Assessment: Date of Thrive Assessment Date Thrive assessed 10/27/24 04/07/25 10:39 Currently or been in a relationship where the following occur: No concerns reported Const Other: Pertinent findings are in BOLD GENERAL APPEARANCE NAD, activity normal for age, well developed/ well nourished, no cyanosis, pallor, or diaphoresis. EYES lids/conjunctiva normal. EARS/NOSE/THROAT Mucous membranes moist, nares normal, lips/teeth normal uvula midline without oral pharyngeal erythema, exudate or swelling TMs normal bilaterally. No lymphangitis/lymphedema. HEAD/NECK normocephalic atraumatic, no facial trauma, neck is supple. RESPIRATORY respiratory effort normal, speaks in full sentences, no tripod position, no accessory muscle use. Lungs clear to auscultation without rhonchi, wheezes, rales CARDIAC Regular rate and rhythm, no edema. ABDOMINAL Soft, ND/NT. No evidence of fluid wave. No pulsatile masses on exam, rebound tenderness, Hinton sign or pain over Mcburney's point. MUSCLES/EXTREMITIES No abnormal range of motion, no swelling. SKIN Warm, pink and dry. No rashes, dermatoses, petechiae or lesions. NEUROLOGICAL Speech is clear and appropriate. Normal level of consciousness. Gait and coordination are normal. 5/5 strength in all extremities. PSYCH Normal mood and affect. Judgement/competence is appropriate Coding Level of Care Code Est Pt Level 4 (35060) Diagnoses QUIN (acute kidney injury) N17.9 Age-related cataract of both eyes, unspecified age-related cataract type H25.9 Cataract type: age-related Age-related cataract type: unspecified Laterality: bilateral Acute deep vein thrombosis (DVT) of left lower extremity, unspecified vein I82.402 DVT location: lower extremity Affected thrombotic vein of extremity: unspecified vein of extremity Chronicity: acute Laterality: left Time Spent (min) 45 Assessment & Plan Assessment & Plan (1) QUIN (acute kidney injury): Code(s): N17.9 - Acute kidney failure, unspecified Category: Medical Plan: Recent blood work with improvement in Creatinine 1.41 from 1.6. Fena 0.1% so most likely pre renal. Patient has appointment with Nephrology 05/26 for CKD as her Creatinine has been elevated in the past. Sanya and her daughter were updated regarding her blood work. (2) Cataract: Code(s): H26.9 - Unspecified cataract Category: Medical Qualifiers: Cataract type: age-related Age-related cataract type: unspecified Laterality: bilateral Qualified Code(s): H25.9 - Unspecified age-related cataract Plan: Advised the patient and her daughter to postpone surgery until 05/2025. (3) DVT (deep venous thrombosis): Code(s): I82.409 - Acute embolism and thrombosis of unspecified deep veins of unspecified lower extremity Category: Medical Qualifiers: DVT location: lower extremity Affected thrombotic vein of extremity: unspecified vein of extremity Chronicity: acute Laterality: left Qualified Code(s): I82.402 - Acute embolism and thrombosis of unspecified deep veins of left lower extremity Plan: Patient had pain in her right lower extremity. Lower extremity US was negative for new DVT. Patient has known PE and left lower extremity DVT. Continue Eliquiss. Plan I discussed with the patient that it would be reasonable to postpone her cataract surgery until next year, which she agreed with. I informed her that her recent leg ultrasound was negative for blood clots, which is good news. I advised her to continue taking the Eliquis for her known blood clot. Her Creatinne improved but did not normalize. I advised the patient to see kidney specialist for CKD. I encouraged her to maintain her scheduled appointment with her primary care physician, next month. Orders: Orders Sodium Urine Random Today N17.9 - Acute kidney failure, unspecified UA and rflx microscopic Today N17.9 - Acute kidney failure, unspecified Creatinine Urine Today N17.9 - Acute kidney failure, unspecified
[2025-04-07 10:32] VITALS: BP 130/78; PULSE 68; TEMP 36.3; O2SAT 99; BMI 33.8
== END 2025-04-07 10:56 | disposition home or self-care (01) ==
LOC: HO.HMCH 10:27
PROVIDERS: PCP Physician Assistant; Visit Provider Internal Medicine
DX: N17.9 Acute kidney failure, unspecified (principal); H25.9 Unspecified age-related cataract; I82.402 Acute embolism and thrombosis of unspecified deep veins of left lower extremity

== ENCOUNTER 2025-04-08 13:29 | Outpatient (AMB) | payer OTHER, SELFPAY ==
--- OUTSIDE RECORDS SUMMARY | 2025-03-02 06:10 | XMS_ITS ---
Author Organization [facility] Address [address] [place] [phone] Care Team Providers Care Lining Parts Sewer Name Role Phone Milan Mcgraw Primary Care Provider Unavailab Chinedu Hoff Unavailable [phone] REASON FOR VISIT Patient presents today for DIARRHEA, GERD Encounters Encounter Location Date Provider Diagnosis [facility] [address] [place] [phone] 03/02/2025 Chinedu Kat Plan Of Treatment No Information Progress Notes * ANA CRISTINA LOZANODOB:1950 (74 yo F)Acc No.[id number]:03/02/2025 Progress Notes Patient: ANA CRISTINA ROSENBERG Provider: Lyric Kat MD :1950 A ge:74 Y S ex:Female Date:03/02/2025 Address:[address] [place], [place] [phone] Pcp:Milan Mcgraw Subjective: * Chief Complaints: * [...] MD Date: Generated for Hamida duarte/Balta/eTransmitting on: 06/08/2024 04:48 PM EST
--- NOTE | 2025-04-08 13:39 | A.OFFVIS_ITS ---
Intake Visit Reasons: follow up Intake Note: Patient is present for US F/U Urology Medication:ESTRADIOL Antibiotic Allergy:NONE Blood Thinner:APIXABAN Executive Officer Special Warfare Team Required: Yes Executive Officer Special Warfare Team Services: Executive Officer Special Warfare Team Present Executive Officer Special Warfare Team Name: [id number] Allergies mirtazapine (From Remeron) Allergy (Intermediate, Verified 04/09/25 21:20) Hallucinations Medication List - Last Reconciled 04/09/25 by RINKU Soni-MARIA VICTORIA abemaciclib (Verzenio) 100 mg PO DAILY acetaminophen 325 mg PO Q6H PRN 30 days albuterol sulfate 90 mcg/actuation 2 inhalations inhalation Q6H PRN 30 days albuterol sulfate 2.5 mg (3 mL) inhalation Q6H PRN 30 days amitriptyline 10 mg PO BEDTIME 90 days apixaban (Eliquis) 5 mg PO BID 90 days benzonatate 200 mg PO BID PRN 30 days blood sugar diagnostic (FreeStyle Lite Strips) As directed blood-glucose meter (FreeStyle Lite Meter kit) As directed budesonide-formoterol 80-4.5 mcg/actuation 2 puffs inhalation BID chair, wheel (Wheel chair) Need for transfer wheelchair chair, wheel (Wheel chair) As directed cholecalciferol (vitamin D3) (Vitamin D3) 50 mcg PO DAILY cyclobenzaprine 10 mg PO TID PRN diaper,brief,adult,disposable (Protective Underwear Ex-Large) 2xl size Briefs. diclofenac sodium 1% 2 grams topical BID PRN dicyclomine 20 mg (2 x 10 mg) PO QID 30 days donepezil 5 mg PO DAILY 90 days escitalopram oxalate 5 mg PO DAILY PRN estradiol 0.01%(0.1mg/gram) 1 g vaginal 3XW 90 days fluticasone furoate-vilanterol 200-25 mcg/dose (Breo Ellipta) 1 inh inhalation DAILY 30 days furosemide (Lasix) 20 mg PO DAILY PRN gabapentin 800 mg PO TID 90 days incontinence pad, liner, disp As directed lancets (FreeStyle Lancets) As directed letrozole 2.5 mg PO DAILY memantine 28 mg PO DAILY metoprolol tartrate 50 mg PO BID miscellaneous medical supply (Blood Pressure Cuff) As directed naloxone 4 mg/actuation (Narcan) 4 mg intranasal Q2M 30 days nebulizers (AeroEclipse II Nebulizer) As directed nebulizers As directed oxycodone 15 mg PO Q8H 28 days semaglutide (Ozempic) 1 mg (0.75 mL) subcut QWEEK 4 weeks simvastatin 10 mg PO DAILY 90 days trazodone 200 mg (2 x 100 mg) PO BEDTIME 90 days HPI Comments Details: Beatriz is a pleasant 74-year-old Peruvian-speaking female patient of Dr. Mcgraw who was accompanied by her son at today's office visit. She has a past medical history of pulmonary emboli, dementia, NSTEMI, sleep apnea, hypercholesteremia, pulmonary hypertension, asthma, lobular carcinoma in Situ of breast, seroma, depression, arthritis, IBS, GERD, recurrent malignant neoplasm of right breast, and hypertension. She presents to the office today for follow-up. Of note, patient was seen approximately 5 months ago as a new patient for recurrent urinary tract infections at which time she was started on Estrace cream and a retroperitoneal ultrasound was ordered for further assessment evaluation. These results were reviewed with the patient and her son today. 04/20 incidental right benign renal cortical cysts. No hydronephrosis or renal calculi noted bilaterally. The urinary bladder is unremarkable. Postvoid bladder volume 10 mL. She reports compliance with Estrace cream as prescribed. She does continue to report foul-smelling urine. In office urinalysis results reviewed with the patient today trace leukocytes negative nitrates. Previous urine cultures are as follows: 02/16 corynebacterium species, 02/17 E coli, 09/18 E coli When asked she does report a longstanding history of IBS and has issues with diarrhea. We did discussed potential causes of foul-smelling urine. She reports she continues to drink plenty of water daily. We did discuss further treatment options and risks and benefits of these treatment options. All questions were answered. She otherwise offers no other issues or concerns at time. 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 Depression Arthritis IBS (irritable bowel syndrome) GERD (gastroesophageal reflux disease) Recurrent malignant neoplasm of right breast HTN (hypertension) Traumatic complete tear of right rotator cuff Surgical History Hx of excision of mass (08/14/23) History of excision of lesion (05/30/23) S/P bilateral mastectomy History of bilateral mastectomy (02/19/22) Hx of cholecystectomy Hx of appendectomy Hx of blepharoplasty History of esophagogastroduodenoscopy (EGD) History of lumpectomy of both breasts History of surgery History of colonoscopy S/P ANDRÉS-BSO (total abdominal hysterectomy and bilateral salpingo-oophorectomy) History of lumbar fusion Family History Father Heart problem Mother Heart disease Hypertension Colon cancer Epilepsy Maternal Grandmother Esophageal cancer Daughter Breast cancer Brother Lung cancer Sister Breast cancer Sister Breast cancer, Onset Age: 60 Sister COVID Daughter Acute kidney failure Social History Household Members: None Housing: Apartment Are you a primary home care assistant to a significant other at home: No Do you presently have visiting nurse or other home services: No Alcohol intake: never Comment: counts correct Patient Tobacco Use Status: Never used Tobacco e-Cigarette/Vaping Use: Never Used Second Hand Smoke Exposure: No Advance Directives Date on File: 06/13/23 service: No Current occupational status: disabled 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) Hearing needs: No Vision needs: Yes Female Reproductive History Menstrual Age of Menarche: 9 Review of Systems Eyes Reports no additional complaints ENT Reports no additional complaints Card Reports as per HPI Resp Reports as per HPI GI Reports as per HPI Reports as per HPI Skin/Breast Reports as per HPI Neuro Reports as per HPI Psych Reports as per HPI Endo Reports as per HPI Physical Exam Const General: cooperative, healthy appearing, comfortable, no acute distress, well developed, alert and awake Orientation/consciousness: patient oriented x3 Limitations: language barrier and ambulation with cane HEENT Head: Yes normal to inspection, Yes normocephalic and Yes atraumatic Ears: hearing grossly normal bilaterally Eyes General: appearance normal, both eyes and all related structures Neck Neck: Yes normal visual inspection and Yes trachea midline Chest Chest palpation & inspection: normal inspection of the chest Resp Effort & Inspection: normal respiratory effort and able to speak in complete sentences Cardio Rate: regular rate GI Inspection: Yes normal to inspection General: Yes no CVA tenderness Back/Spine/Pelvis Back: no CVA tenderness Skin General skin exam: no rashes or lesions noted Neuro General: patient oriented x3 Extrem General: Yes normal to inspection Psych Appearance: grossly normal and well kempt Mental Status: mental status grossly normal Speech and movement: Normal speech and movement present and Clear speech present Affect: normal affect Attitude: cooperative Thought process: Normal thought process present Thought content: Normal thought content present Insight: Fair insight present (Psych) Judgement: Fair judgement present (Psych) Results AMB Urinalysis, Automated UA Leukoctes 15 Marija/uL Last Edit by Harish Adler CCM on 04/08/25 15:31 UA Nitrite Negative Last Edit by Harish Adler [facility] on 04/08/25 15:31 UA Urobilinogen 0.2 mg/dL Last Edit by Harish Alder [facility] on 04/08/25 15:3 1 UA Protein 0 mg/dL Last Edit by Harish Adler [facility] on 04/08/25 15:31 UA pH 6.0 Last Edit by Harish Adler [facility] on 04/08/25 15:31 UA Blood 0 Min/uL Last Edit by Harish Adler [facility] on 04/08/25 15:31 UA Specific Bruno 1.015 Last Edit by Harish Adler CCM on 04/08/25 15: 31 UA Ketone Negative Last Edit by Harish Adler [facility] on 04/08/25 15:31 UA Bilirubin 0 mg/dL Last Edit by Harish Adler [facility] on 04/08/25 15:31 UA Glucose 0 mg/dL Last Edit by Harish Adler [facility] on 04/08/25 15:31 Results Reviewed Results Reviewed: Laboratory Last Values Urine pH (Auto) 6.0 04/08/25 15:30 Specific Bruno (Auto) 1.015 04/08/25 15:30 Urine Protein (Auto) 0 mg/dL 04/08/25 15:30 Glucose (UA)(Auto) 0 mg/dL 04/08/25 15:30 Urine Ketones (Auto) Negative 04/08/25 15:30 Urine Blood (Auto) 0 Min/uL 04/08/25 15:30 Urine Nitrite (Auto) Negative 04/08/25 15:30 Urine Bilirubin (Auto) 0 mg/dL 04/08/25 15:30 Urine Urobilinogen (Auto) 0.2 mg/dL 04/08/25 15:30 Leukocyte Esterase (Auto) 15 Marija/uL 04/08/25 15:30 Date of Service: 04/01/25 Procedure(s): US retroperitoneal comp Findings: Right kidney normal size and echotexture, 9.2 cm length. No hydronephrosis. Normal color flow. No nephrolithiasis. Benign renal cortical cysts lower pole measuring 3.4 x 3.3 x 3.3 cm. Left kidney normal size and echotexture, 10.0 cm in length. No hydronephrosis. Normal color flow. No nephrolithiasis. No renal masses. Urinary bladder is unremarkable. Prevoid volume 153.0 mL. Postvoid volume 8.2 mL. Ureteral jets are visualized bilaterally Impression: 1. Incidental benign renal cortical cyst right kidney. 2. Normal postvoid residual Assessment & Plan Assessment & Plan (1) Foul smelling urine: Code(s): R82.90 - Unspecified abnormal findings in urine Category: Medical (2) Renal cyst: Code(s): N28.1 - Cyst of kidney, acquired Category: Medical (3) Frequent UTI: Code(s): N39.0 - Urinary tract infection, site not specified Category: Medical Plan In office urinalysis results reviewed with the patient today; will send for microgen; will await results for potential treatment Continue Estrace cream. Most recent retroperitoneal ultrasound results reviewed with the patient today; as noted above. We did discuss potential causes of foul-smelling urine. We discussed continuing to drink plenty of water daily. We did discussed potential near future cystoscopy for further assessment evaluation. All questions were answered. Follow-up in 3 months with [facility]; or sooner with any issues, concerns, and or questions. Orders: Orders AMB Urinalysis Automated 04/08/25 Z13.9 - Encounter for screening, unspecified Patient Instructions: The patient had an opportunity to ask questions regarding the treatment plan. All questions were answered. Physical exam, labs, and imaging were discussed and reviewed in detail. As well as risks, benefits, and discussion of treatment choices. No major barriers to understanding were identified. The patient expressed understanding and agreement with the above treatment plan. The patient was made aware they should contact our office by phone for worsening of their current condition, the appearance of new symptoms, or with any questions or concerns. Compliance is encouraged with any medications and follow up testing that is ordered. It is a privilege to be allowed the opportunity to participate in? your urological care.? Again, if you have any questions or concerns If you have any questions or concerns please do not hesitate to contact me. The office is [phone]. This note is constructed using voice recognition software. While every effort has been made to ensure accuracy tile edger errors may have been included. Yours sincerely, WILLIE Soni Coding Level of Care Code Est Pt Level 3 (51659) Complex EM visit Add On G2211 Diagnoses Foul smelling urine R82.90 Renal cyst N28.1 Frequent UTI N39.0
--- OUTSIDE RECORDS SUMMARY | 2025-04-08 16:48 | XMS_ITS ---
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/HCC V24, CMS/HCC V28) 10/01/2023 Acute cystitis [...]
--- OUTSIDE RECORDS SUMMARY | 2025-04-08 16:48 | XMS_ITS | Clinical Summary ---
Author Organization [facility] Address [address] [place] [phone] Phone Care Team Providers Care Pest Control Pilot Name Role Phone Milan Mcgraw Primary Care [...] - 03/30/2025 11:59 PM EST Hospital Encounter [facility] Interventional Radiology [address] [place] [address] Malignant neoplasm of overlapping sites of left breast in female, estrogen receptor positive (CMS/HCC V24, CMS/HCC V28) Discharge Disposition: Home or Self Care 03/24/[address] [facility] Hematology Oncology [address] [place] [address] Tiffany Chowdhury MD 01/21/2025 12:00 PM EDT - 01/21/2025 11:59 PM EDT Hospital Encounter [facility] Nuclear Medicine [address] [place] [address] Discharge Disposition: Home or Self Care 01/21/2025 11:15 AM EDT Office Visit 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 CT Scan [address] [place] [phone] Malignant neoplasm of overlapping sites of left breast in female, estrogen receptor positive ([facility] [place]24, [facility] V28) Discharge Disposition: Home or Self Care 01/21/2025 9:00 AM EDT - 01/21/2025 11:59 PM EDT Hospital Encounter [facility] Nuclear Medicine [address] [place] [phone] Malignant neoplasm of overlapping sites of left breast in female, estrogen receptor positive ([facility] [place]24, [facility] V28) Discharge Disposition: Home or Self Care from Last 3 Months Surgical History Surgery Date Site/Laterality Comments MASTECTOMY PROCEDURE:MASTECTOMY APPENDECTOMY PROCEDURE:APPENDECTOMY CHOLECYSTECTOMY PROCEDURE:CHOLECYSTECTOMY COLONOSCOPY PROCEDURE:COLONOSCOPY Medical History Medical History Date Comments Breast cancer ([facility] [place]24, [facility] V28) DX:Breast cancer ([facility]) Hypertension DX:Hypertension COPD (chronic obstructive pu lmonary disease) ([facility] V24, [facility] V28) DX:COPD (chronic o bstructive pulmonary disease) ([facility]) Family History Medical History Relation [...] this topic Medical Devices Implanted Type Area Hull Molder Device Identifier Shelf Expiration Date Model / Serial / Lot Port Pwr Isp Attach 6f Interm Obdulia - [id number] - [id number] Implanted:Qty: 1 on 03/30/2025 by Mushtaq Díaz MD at [facility]/Jaqueline pheral Catheters and Ports Right: Chest Wall CR BARD PERIPHERAL VASCULAR [id number] 11/23/2025 [id number] / [id number] / [id number] Procedures Procedure Name Priority Date/Time Associated Diagnosis [...] Signed Date: 03/30/2025 15:45 ET Workstation ID: [id number] Transcribed By: Self Edit Transcribed Date: 03/30/2025 [...] Signed Date: 03/30/2025 15:45 ET Workstation ID: [id number] Transcribed By: Self Edit Transcribed Date: 03/30/2025 [...] Signed Date: 01/29/2025 13:29 ET Workstation ID: [id number] Transcribed By: Self Edit Transcribed Date: 01/29/2025 [...] Signed Date: 01/29/2025 13:29 ET Workstation ID: [id number] Transcribed By: Self Edit Transcribed Date: 01/29/2025 [...] Signed Date: 02/01/2025 15:22 ET Workstation ID: [id number] Transcribed By: Self Edit Transcribed Date: 02/01/2025 [...] Signed Date: 02/01/2025 15:22 ET Workstation ID: [id number] Transcribed By: Self Edit Transcribed Date: 02/01/2025 14:52 ET Subramjose angel Nava MD IMG CT PROCEDURES F inal Result * (ABNORMAL) CBC auto differential (01/20/2025 2:18 PM EDT) WBC 5.4 4.8 - 10.8 K/mcL LAB HEMETOLOGY METHOD 01/20/2025 6:04 PM EDT [facility] RBC 4.00 3.80 - 4.80 M/mcL LAB HEMETOLOGY METHOD 01/20/2025 6:04 PM EDT [facility] Hemoglobin 12.5 11.5 - 16.0 g/dL LAB HEMETOLOGY METHOD 01/20/2025 6:04 PM EDT [facility] Hematocrit 39.5 35.0 - 47.0 % LAB HEMETOLOGY METHOD 01/20/2025 6:04 PM EDT [facility] MCV 98.3(H) 79.0 - 98.0 FL LAB HEMETOLOGY METHOD 01/20/2025 6:04 PM EDT [facility] MCH 31.1 27.0 - 32.0 pcg LAB HEMETOLOGY METHOD 01/20/2025 6:04 PM EDT [facility] MCHC 31.6(L) 32.0 - 37.0 g/dL LAB HEMETOLOGY METHOD 01/20/2025 6:04 PM EDT [facility] RDW 13.8 11.0 - 15.0 % LAB HEMETOLOGY METHOD 01/20/2025 6:04 PM EDT [facility] Platelets 348 130 - 400 K/mcL LAB HEMETOLOGY METHOD 01/20/2025 6:04 PM [facility] MPV 9.9 7.0 - 11.0 FL LAB HEMETOLOGY METHOD 01/20/2025 6:04 PM [facility] NRBC 0.0 <1.0 % LAB HEMETOLOGY METHOD 01/20/2025 6:04 PM [facility] NRBC Absolute 0.00 <0.10 K/mcL LAB HEMETOLOGY METHOD 01/20/2025 6:04 PM [facility] Neutrophils Relative 55.2 % LAB HEMETOLOGY METHOD 01/20/2025 6:04 PM [facility] Comment:This is an appended report. These results have been appended to a previously preliminary verified report. Lymphocytes Relative 36.6 % LAB HEMETOLOGY METHOD 01/20/2025 6:04 PM [facility] Comment:This is an appended report. These results have been appended to a previously preliminary verified report. Monocytes Relative 5.2 % LAB HEMETOLOGY METHOD 01/20/2025 6:04 PM [facility] Comment:This is an appended report. These results have been appended to a previously preliminary verified report. Eosinophils Relative 1.7 % LAB HEMETOLOGY METHOD 01/20/2025 6:04 PM [facility] Comment:This is an appended report. These results have been appended to a previously preliminary verified report. Basophils Relative 0.9 % LAB HEMETOLOGY METHOD 01/20/2025 6:04 PM [facility] Comment:This is an appended report. These results have been appended to a previously preliminary verified report. Immature Granulocytes Relative 0.4 % LAB HEMETOLOGY METHOD 01/20/2025 6:04 PM [facility] Comment:This is an appended report. These results have been appended to a previously preliminary verified report. Neutrophils Absolute 2.95 1.50 - 7.00 K/mcL LAB HEMETOLOGY METHOD 01/20/2025 6:04 PM [facility] Comment:This is an appended report. These results have been appended to a previously preliminary verified report. Lymphocytes Absolute 1.96 1.00 - 5.00 K/mcL LAB HEMETOLOGY METHOD 01/20/2025 6:04 PM T [facility] Comment:This is an appended report. These results have been appended to a previously preliminary verified report. Monocytes Absolute 0.28 0.20 - 1.00 K/mcL LAB HEMETOLOGY METHOD 01/20/2025 6:04 PM [facility] Comment:This is an appended report. These results have been appended to a previously preliminary verified report. Eosinophils Absolute 0.09 0.00 - 0.50 K/mcL LAB HEMETOLOGY METHOD 01/20/2025 6:04 PM [facility] Comment:This is an appended report. These results have been appended to a previously preliminary verified report. Basophils Absolute 0.05 0.00 - 0.20 K/mcL LAB HEMETOLOGY METHOD 01/20/2025 6:04 PM [facility] Comment:This is an appended report. These results have been appended to a previously preliminary verified report. Immature Granulocytes Absolute 0.02 0.00 - 0.03 K/mcL LAB HEMETOLOGY METHOD 01/20/2025 6:04 PM T [facility] Comment:This is an appended report. These results have been appended to a previously preliminary verified report. Blood Venous blood specimen / Unknown Venipuncture / Unknown 01/20/2025 2:18 PM EDT 01/20/2025 4:29 PM EDT Tiffany Nava MD LAB BLOOD ORDERABLE S Final Result [facility] [address] [place] [address], * Cancer antigen 27-29 (01/20/2025 2:18 PM EDT) CA 27.29 30.9 <38.6 U/mL 01/26/2025 2:33 PM EDT [facility] Comment: The Siemens Advia ScanDigitalaur [id number] Chemiluminescent Immunoassay is used. Results obtained with different assay methods or kits cannot be used interchangeably. Results cannot be interpreted as absolute evidence of the presence or absence of malignant disease. Test performed at [facility], [address], [place] [address] Mary Albrecht MD, PhD - Talent Acquisition Sourcer Blood Venous blood specimen / Unknown Venipuncture / Unknown 01/20/2025 2:18 PM EDT 01/20/2025 4:28 PM EDT Subramjose angel Nava MD LAB BLOOD ORDERABLE S Final Result [facility] [address] [address] * (ABNORMAL) Comprehensive metabolic panel (01/20/2025 2:18 PM EDT) Pathologist [facility] Sodium 138 133 - 145 mmol/L LAB CHEMISTRY METHOD 01/20/2025 5:57 PM EDT [facility] Potassium 4.6 3.5 - 5.5 mmol/L LAB CHEMISTRY METHOD 01/20/2025 5:57 PM EDT [facility] Chloride 105 96 - 110 mmol/L LAB CHEMISTRY METHOD 01/20/2025 5:57 PM EDT [facility] CO2 28 21 - 32 mmol/L LAB CHEMISTRY METHOD 01/20/2025 5:57 PM EDT [facility] Anion Gap 5 3 - 11 LAB CHEMISTRY METHOD 01/20/2025 5:57 PM EDT [facility] Glucose 52(L) 70 - 100 mg/dL LAB CHEMISTRY METHOD 01/20/2025 5:57 PM [facility] BUN 22 5 - 25 mg/dL LAB CHEMISTRY METHOD 01/20/2025 5:57 PM [facility] Creatinine 1.60(H) 0.50 - 1.10 mg/dL LAB CHEMISTRY METHOD 01/20/2025 5:57 PM [facility] eGFR 33(L) >=60 mL/min/1. 73m2 LAB CHEMISTRY METHOD 01/20/2025 5:57 PM [facility] Comment:Calculation based on the Chronic Kidney Disease Epidemiology Collaboration (CKD-EPI) equation refit without adjustment for race. BUN/Creatinine Ratio 13.8 LAB CHEMISTRY METHOD 01/20/2025 5:57 PM [facility] Calcium 9.7 8.5 - 10.5 mg/dL LAB CHEMISTRY METHOD 01/20/2025 5:57 PM [facility] AST (SGOT) 17 10 - 42 unit/L LAB CHEMISTRY METHOD 01/20/2025 5:57 PM [facility] ALT (SGPT) 21 10 - 60 unit/L LAB CHEMISTRY METHOD 01/20/2025 5:57 PM [facility] Alkaline Phosphatase 69 42 - 121 unit/L LAB CHEMISTRY METHOD 01/20/2025 5:57 PM [facility] Total Protein 7.1 6.0 - 8.0 g/dL LAB CHEMISTRY METHOD 01/20/2025 5:57 PM [facility] Albumin 4.0 3.2 - 5.0 g/dL LAB CHEMISTRY METHOD 01/20/2025 5:57 PM [facility] Total Bilirubin 0.3 0.0 - 1.4 mg/dL LAB CHEMISTRY METHOD 01/20/2025 5:57 PM [facility] Blood Venous blood specimen / Unknown Venipuncture / Unknown 01/20/2025 2:18 PM EDT 01/20/2025 4:28 PM EDT Tiffany Nava MD LAB BLOOD ORDERABLE S Final Result [facility] [address] [place] [address], from Last 3 Months Insurance [facility] [employer] Member Subscriber Plan / Payer (Ef fective 2014-Present) Name:Beatriz Herbert Relation to Subscriber:Self Name:Beatriz Herbert Payer ID:[id number] Group ID:[id number] Type:Not on file Address: [place] [address] [address] [id number] Care Teams Pest Control Pilot Relationship Specialty Start Date End Date Milan Mcgraw PA [address] [place] [address] PCP - General 06/05/23
--- OUTSIDE RECORDS SUMMARY | 2025-04-08 16:48 | XMS_ITS | Clinical Summary ---
Author Organization [facility] Address [address] [place] [address] Care Team Providers Care Public Health Program Manager Name Role Phone Milan Mcgraw Primary Care Provider [phone] Allergies No known active allergies Medications Medication [...] from 02/19/2022:Stage IA(pT1c, pN1, cM0, G2, ER+, PA+, HER2-) - Signed by Tiffany Villavicencio MD [...] age to complete this topic Care Teams Public Health Program Manager Relationship Specialty Start Date End Date Milan Mcgraw PA [address] [place] [address] [phone] PCP - General Physician Blasting Helper 06/05/23
--- OUTSIDE RECORDS SUMMARY | 2025-04-08 16:49 | XMS_ITS | Patient Health Record ---
Author Organization [facility] Address [address] [place] [address] Care Team Providers Care Barrel Rifler Name Role Phone Milan Mcgraw Primary Care Provider Unavailab Chinedu Hoff Unavailable [phone] Reason For Referral No Information Medications Medication [...] Problem Screening for malignant neoplasm of colon (533709728) Encounter for screening for malignant neoplasm of colon (Z12.11) Active confirmed Problem Irritable bowel syndrome with diarrhea (816201036) Irritable bowel syndrome with diarrhea (K58.0) Active confirmed Problem Gastroesophageal reflux disease without esophagitis (859667336) Gastroesophageal reflux disease without esophagitis (K21.9) Active confirmed Problem Family History of Cancer of Colon (Situation) (449792561) Family history of colon cancer (Z80.0) Active confirmed Encounters Encounter Location Date Provider Diagnosis [facility] [address] [facility] [address] [place] [address] 03/02/2025 Chinedu Kat Plan Of Treatment Future Test Test Name Order Date UPPER GI ENDOSCOPY 11/02/2014 COLONOSCOPY 11/02/2014 COLONOSCOPY 11/25/2019 Insurance Providers Payer Name Payer Address Payer Phone Subscriber Number Group Number Insured Name Patient Relationship to Insured Coverage Start Date Coverage End Date [facility] [address] [place] [phone] [id number] ANA CRISTINA LOZANO Self - patient is the insured [place] [place] [address] [place] [phone] [id number] ANA CRISTINA LOZANO Self - patient is [...]
== END 2025-04-08 16:25 | disposition home or self-care (01) ==
LOC: HO.HUSH 13:30
PROVIDERS: PCP Physician Assistant; Visit Provider Nurse Practitioner Family
DX: Z13.9 Encounter for screening, unspecified (principal)

== ENCOUNTER → 2025-04-08 13:29 | Outpatient (BNVA) | payer OTHER, SELFPAY | PROVIDERS: PCP Physician Assistant; Visit Provider Nurse Practitioner Family | DX: R82.90 Unspecified abnormal findings in urine (principal); N28.1 Cyst of kidney, acquired; N39.0 Urinary tract infection, site not specified | CPT/HCPCS: 81003; 99212 ==